=== PATIENT | female | born 1955 | race Caucasian/White ===

== ENCOUNTER 2025-03-30 17:43 | Outpatient (REF) | payer OTHER, SELFPAY ==
--- OUTSIDE RECORDS SUMMARY | 2025-02-25 17:24 | XMS_ITS | Encounter Summary ---
Author Organization [employer] tem Address [id number] [address] [place] [address] Care Team Providers Care Financial Aid Officer Name Role Phone Riya Diego MD Primary Care Provider + [phone] Reason for Referral * Misc (Routine) - Pending Review Specialty Diagnoses / Procedures Referred By Contac t Referred To Contact Procedures Drain care (specify) Neelima Ta APRN-CNP [address] [place] [address] Phone: tel: fax: Referral ID Status Reason Start Date Expiration Date V isits Requested Visits Authorized [id number] Pending Review 03/21/2025 03/21/2026 1 1 * Misc (Routine) - Pending Review Specialty Diagnoses / Procedures Referred By Contac t Referred To Contact Procedures Discharge follow-up Dominga Calderon APRN-CNP [address] [place] [address] Phone: tel: fax: Referral ID Status Reason Start Date Expiration Date V isits Requested Visits Authorized [id number] Pending Review 03/21/2025 03/21/2026 1 1 * Misc (Routine) - Pending Review Specialty Diagnoses / Procedures Referred By Paula t Referred To Contact Diagnoses Colon cancer screening Procedures Follow-up with primary care provider Deena Branch MD [address] [place] [address] Phone: tel: fax: Referral ID Status Reason Start Date Expiration Date V isits Requested Visits Authorized [id number] Pending Review 03/21/2025 03/21/2026 1 1 * Occupational Therapy (Routine) - Pending Review Specialty Diagnoses / Procedures Referred By Paula t Referred To Contact Occupational Therapy Diagnoses Colon cancer screening Deena Branch MD [address] [place] [address] Phone: tel: fax: Referral ID Status Reason Start Date Expiration Date Visits Requested Visits Authorized [id number] Pending Review Specialty Services Required 03/21/2025 09/18/2025 12 12 * Physical Therapy (Routine) - Pending Review Specialty Diagnoses / Procedures Referred By Paula t Referred To Contact Rehabilitation Diagnoses Colon cancer screening Deena Branch MD [address] [place] [address] Phone: tel: fax: Referral ID Status Reason Start Date Expiration Date Visits Requested Visits Authorized [id number] Pending Review Specialty Services Required 03/21/2025 09/18/2025 12 12 * Consultation (Routine) - Pending Review Specialty Diagnoses / Procedures Referred By Paula t Referred To Contact Wound Care Diagnoses Pressure injury of deep tissue of left buttock Pressure ulcer of right buttock, stage 2 (CMS-HCC) Kerri Hawk, STUDENT TRUCK DRIVER-ASSISTANT DIRECTOR OF RESIDENCE LIFE [address] [address] Phone: tel: fax: [facility] [address] [place] [address] Phone: tel: fax: Referral ID Status Reason Start Date Expiration Date Visits Requested Visits Authorized [id number] Pending Review Specialty Services Required 03/20/2025 03/20/2026 1 1 * Misc (Routine) - Pending Review Specialty Diagnoses / Procedures Referred By Contac t Referred To Contact Procedures Wound care (specify) Kerri Hawk APRN-CNP [address] [facility] [address] [place] [address] Phone: tel: fax: Referral ID Status Reason Start Date Expiration Date V isits Requested Visits Authorized [id number] Pending Review 03/20/2025 03/20/2026 1 1 Reason for Visit * Auth/Cert Specialty Diagnoses / Procedures Referred By Contac t Referred To Contact Diagnoses Ovarian Mass DVT [address] [address] Referral ID Status Reason Start Date Expiration Date Visits Re quested Visits Authorized [id number] 1 1 Encounter Details Date Type Department Care Team (Latest Contact Info) Description 02/25/2025 5:24 PM EDT - 03/21/2025 4:23 PM EDT Hospital Encounter [facility] [address] Acute [address] [place] [id number] Deena Branch MD [facility] [place] [address] Dario Burris MD [address] [place] [address] Ghassan Castillo MD [address] [facility] [place] [phone] Colon cancer screening (Primary Dx); Hematochezia; Pressure injury of deep tissue of left buttock; Pressure ulcer of right buttock, stage 2 (CMS-HCC) Discharge Disposition: [facility] Facility-Medicare Cert Social History Tobacco Use Types Packs/Day Years Used Date Smoking Tobacco: Former Cigarettes Smokeless Tobacco: Never Alcohol Use Standard Drinks/Week Comments Never 0 (1 standard drink = 0.6 oz pur e alcohol) [facility] Utilities Answer Date Recorded In the past 12 months has th e electric, gas, oil, or water company threatened to shut off services in your home? No 02/25/2025 AUDIT-C Answer Date Recorded Q1: How often do you have a drink containing alcohol? Never 02/25/2025 Q2: How many drinks containi ng alcohol do you have on a typical day when you are drinking? Patient does not drink Q3: How often do you have si x or more drinks on one occasion? Never 02/25/2025 PHQ-2 Answer Date Recorded Total Score 0 02/25/2025 PRAPARE - Transportation Answer Date Re corded In the past 12 months, has l ack of transportation kept you from medical appointments or from getting medications? No 02/01 In the past 12 months, has l ack of transportation kept you from meetings, work, or from getting things needed for daily living? No 02/25/2025 Housing Instability Answer Date Recorde d Are you worried or concerned that in the next two months you may not have stable housing that you own, rent or stay in as a part of a household? No 02/25/2025 Childcare Answer Date Recorded Childcare Unknown 12/12/2018 Employment Answer Date Recorded Employment Unknown 12/12/2018 Hunger Screening Answer Date Recorded Within the past 12 months we worried whether our food would run out before we got money to buy more. Never True 02/25/2025 Within the past 12 months th e food we bought just didn't last and we didn't have money to get more. Never True 02/25/2025 Purpose - Life Answer Date Recorded Purpose and direction in life Unknown Comments No Sex and Gender Information Value Date Recorded Sex Assigned at Not on file Legal Sex Female 11:49 AM EDT Gender Identity Not on file Sexual Orientation Not on file documented as of this encounter Last Filed Vital Signs Vital Sign Reading Time Taken Comments Blood Pressure 142/61 03/21/2025 7:55 AM EDT Pulse 87 03/21/2025 7:55 AM EDT Temperature 36.7 C (98.1 F) 03/21/2025 7:55 AM EDT Respiratory Rate 16 03/21/2025 7:55 AM EDT Oxygen Saturation 92% 03/20/2025 8:04 PM EDT Inhaled Oxygen Concentration - - Weight 79.2 kg (174 lb 9.7 oz) 03/20/2025 8:52 P M EDT Height 157.5 cm (5' 2.01 ) 02/25/2025 6:40 PM ED T Body Mass Index 31.93 02/25/2025 6:40 PM EDT documented in this encounter Functional Status * Question Answer Date of Assessment Author Functional Status Independent 02/26/2025 8:22 AM EDT Ludivina Mccray RN * Audit-C Score Answer Date of Assessment Author 0 02/25/2025 6:22 PM EDT Leatha Molina, NATA * Question Answer Date of Assessment Author Q1: How often do you have a drink containing alcohol? Never 02/25/2025 6:22 PM EDT Leatha Molina, RN Q2: How many drinks containing alcohol do you have on a typical day when you are drinking? Patient does not drink 02/25/2025 6:22 PM EDT Leatha Molina, RN Q3: How often do you have six or more drinks on one occasion? Never 02/25/2025 6:22 PM EDT Leatha Molina, NATA documented as of this encounter Mental Status * Question Answer Entry Date Author Overall Cognitive Status WFL 03/20/2025 3:03 PM EDT Nava Barrera COTA/Joie documented in this encounter Discharge Summaries * Deena Branch MD - 03/21/2025 4:21 PM EDT Images from the original note were not included. Hospital Discharge Summary Admitting Provider: Deena Branch MD Discharge Provider: Deena Branch. Primary Care Physician at Discharge: Riya Diego MD Admission Date: 02/25/2025 Discharge Date: 03/21/25 Discharge Diagnosis: Malignant small-bowel obstruction status post exploratory laparotomy and total colectomy Status post intraoperative cardiopulmonary arrest Acute hypoxic respiratory failure required intubation Peritoneal carcinomatosis with acute peritonitis Left pneumothorax status post chest tube-resolved Acute postop blood-loss anemia status post blood transfusion Acute renal failure Right hydronephrosis with 2.2 cm right renal mass Asymptomatic VRE UTI Acute provoked right sided PE Acute bilateral DVT Numerous pulmonary nodules likely metastasis Newly diagnosed Ovarian mass History of tobacco abuse Discharge medication : Please review the medication reconciliation Hospital Course Caren Suarez is an 69 y.o. White or female. came to the hospital with Abnormal test results. Patient states that she has been experiencing cold-like symptoms with to thepoint where she was having hard time breathing. She went to her PCP who placed her on steroids withno improvement. She then was on antibiotic therapy with still no improvement. [facility] of abdomen pelvis that reported large partially solid cystic lesions , 2.5 cm solid right renal lesion, and small bilateral noncalcified lower lobe pulmonary nodules and abdominal soft tissue nodules likely metastasis. She also underwent venous duplex of bilateral lower extremities that reported right acute DVT and left deep calf muscle vein DVT. she was Was then sent to the ER at [place] to be further evaluated and treated. She was transferred to [facility] for further evaluation and treatment. Patient was admitted initially to the medical floor and started on heparin drip Gynecology/Oncology was consulted Transvaginal ultrasound: 18.2 x 16.3 x 11.2 cm, multiloculated, cystic and solid lesion in the pelvis Thin prep negative for malignancy, negative high-risk HPV Status post paracentesis and soft tissue nodule biopsy today 02/28/2025 with removal of 1850 mL of ludivina ascites fluid, fluid analysis was consistent with peritonitis. CT scan of the abdomen and pelvis on 03/06/2025 showed Colonic dilatation with transition at the sigmoid junction. Concern for obstruction from the known large rectal mass vs multicentric colorectal carcinoma. Postprocedural ileus or colonic pseudoobstruction could appear similarly in the appropriate clinical setting.Similar appearance of a 20 cm cystic pelvic lesion, recently characterized as rectal adenocarcinoma. Peritoneal carcinomatosis. Indeterminate bilateral lung base pulmonary nodules,presumed metastatic. Few sclerotic pelvic lesions may reflect additional osseous metastases. Mild right hydroureteronephrosis, likely secondary to pelvic mass effect on the ureter.Redemonstrated 2.2 cm right interpolar renal mass lesion concerning for RCC. Colorectal surgery was consulted on 03/07 for possible bowel obstruction ,After stabilization of the patient's INR with [facility] on 03/07, the decision was made to take her to the operating room as a joint case between Colorectal on Electronic [employer] Specialist/Onc. At the beginning of the case, patient initially desaturated prior to incision. It was believed thatthis was due to the significant malignant ascites compressing the lungs. Decision was made to proceed with the case, and after decompression the patient's respiratory status significantly improved. The patient later went into cardiac arrest within the operating room and a code was initiated. Compressions were begun, epi was administered. After 2 rounds of compressions ROSC was obtained. ABThera was placed and the patient was transferred to the surgical ICU intubated and sedated. Patient was extubated on 03/12/2025, she was transferred to the step-down unit and remained on roomair. Her diet was advanced. Patient being monitored off antibiotics per Infectious Disease. Seen by palliative Medicine and her code status was changed to DNR CCA. Patient was also followed by Oncology and abdominal soft tissue biopsy pathology was positive for mucinous adenocarcinoma consistent with colorectal origin. Patient will need to recover from surgery before they can effectively offer any systemic cancer treatments. Patient unable to ambulate using a Shalonda lift but able to stand with assistance. Plans to dischargeto alf facility for ongoing rehab. Patient was accepted with insurance authorization and patient would discharge later today to alf facility in stable condition. Operative Procedures Performed Procedure(s): LAPAROTOMY EXPLORATORY ILEOSTOMY CREATION RESECTION BOWEL SMALL CLOSURE WOUND ABDOMEN APPLICATION WOUND VAC MIDSECTION Consults: pulmonary/intensive care, ID, GI, nephrology, hematology/oncology, general surgery, urology, gynecology, vascular surgery, and gynecology Oncology and palliative Medicine Physical Exam at Discharge BP 142/61 Pulse 87 Temp 36.7 ??C (98.1 ??F) (Oral) Resp 16 Ht 157.5 cm (5' 2.01 ) Wt 79.2kg (174 lb 9.7 oz) SpO2 92% BMI 31.93 kg/m?? General Appearance: Alert, cooperative, no distress. Head: Normocephalic, without obvious abnormality, atraumatic Eyes: PERRL, conjunctiva/corneas clear, EOM's intact Ears: Normal external ear canals, both ears Nose: Nares normal, septum midline, mucosa normal, no drainage or sinus tenderness Throat: Lips, mucosa, and tongue normal; teeth and gums normal Neck: Supple, symmetrical, trachea midline, no adenopathy, thyroid: not enlarged, symmetric, no tenderness/mass/nodules, no carotid bruit or JVD Lungs: Clear to auscultation bilaterally, respirations unlabored, tactile fremitus are normal B/L Chest Wall: No tenderness or deformity Heart: Regular rate and rhythm, S1, S2 normal, no murmur, rub or gallop, PMI is not displaced Abdomen: Soft, non-tender, bowel sounds active all four quadrants, no masses, no organomegaly Extremities: Extremities normal, atraumatic, no cyanosis or edema Pulses: 2+ and symmetric Skin: Skin color, texture, turgor normal, no rashes or lesions Lymph nodes: Cervical, supraclavicular, and axillary nodes normal Neurologic: Nonfocal Lab Results Component Value Date WBC 7.2 03/21/2025 HGB 10.0 (L) 03/21/2025 HCT 31.1 (L) 03/21/2025 MCV 85 03/21/2025 PLT 350 03/21/2025 Lab Results Component Value Date CALCIUM 7.8 (L) 03/20/2025 K 4.1 03/20/2025 CO2 24 03/20/2025 CL 107 03/20/2025 BUN 6 03/20/2025 Lab Results Component Value Date INR 1.3 (H) 03/21/2025 INR 1.5 (H) 03/20/2025 INR 1.3 (H) 03/19/2025 PROTIME 14.7 (H) 03/21/2025 PROTIME 16.8 (H) 03/20/2025 PROTIME 14.3 (H) 03/19/2025 No results found for: MAGNESIUM Discharge Disposition Another Hospital Code Status at Discharge: [email or web address] Outpatient Follow-Up Future Appointments Date Time Provider Department Center 04/03/2025 9:00 AM ELLIOTT Morales [facility] TOTAL TIME SPENT ON DISCHARGE IS 35 MINUTES The note was completed using EMR. Every effort was made to ensure accuracy; however, inadvertent computerized logistics project manager errors may be present. Deena Branch. [facility] Hospitalist documented in this encounter Discharge Instructions * Discharge Instructions* Sheri Callaway RN - 03/14/2025 12:14 PM EDT You may experience sharp pains in your rib area or back, that is common with a PE. This may happen days to weeks after your PE diagnosis because as the clots break down and get smaller they move to the smaller ends of the vessel which is where your nerve endings are. You may also experience small amounts of blood in your sputum when you cough, that is also known to happen with PE. If there is a large amount of blood or severe chest pain you want to call 911 or go to the ER. If your shortness ofbreath worsens you should go back to the ER. For your DVT, leg swelling is common as the flow of blood to get back from your foot to your heart is blocked or partially blocked by the blood clot. Compressions stockings and elevation will help with swelling. Compression stockings should go on in the morning when you first wake up and come off at night when you go to sleep. Elevating your leg when you are not ambulating will help with swellingalso. * Attachments The following attachments cannot be sent through Care Everywhere. * Deep vein thrombosis ??? Discharge instructions ([place]) * Pulmonary embolism ??? Discharge instructions ([place]) * Apixaban, ADULT ([place]) documented in this encounter Medications at Time of Discharge apixaban (ELIQUIS) 5 mg tablet Take 1 tablet (5 mg total) by mouth in the morning and 1 tablet (5 mg total) before bedtime. 03/21/2025 droNABinol (MARINOL) 2.5 mg capsuleIndicatio ns:Colon cancer screening Take 1 capsule (2.5 mg total) by mouth in the morning and 1 capsule (2.5 mg total) in the evening. Take before meals. Do all this for 30 days. 60 capsule 03/21/2025 folic acid (FOLVITE) 1 mg tablet Take 1 tablet (1 mg total) by mouth in the morning. 03/22/2025 naloxone (NARCAN) 4 mg/actuation spray,non-aeroso l nasal spray Administer 1 spray (4 mg total) into alternating nostrils as needed for opioid reversal. 03/21/2025 oxyCODONE (ROXICODONE) 5 mg immediate release tabletIndication s:Colon cancer screening Take 1 tablet (5 mg total) by mouth every 8 (eight) hours as needed for pain for up to 15 doses. Max Daily Amount: 15 mg 15 tablet 03/21/2025 documented as of this encounter Progress Notes * Ernie Elizondo APRN-ASSISTANT DIRECTOR OF RESIDENCE LIFE - 03/21/2025 1:03 PM EDT Images from the original note were not included. [facility] Hematology and Oncology - Daily Progress Note 03/21/2025, 1:03 PM Impression/Plan: Metastatic Colorectal Cancer -Initially favoring ovarian primary given clinical pattern, but now with pathology positive for colorectal primary -Initial CT a/p showed large partially solid and partially cystic lesion in the right adnexa measuring 16 cm x 12 cm x 11 cm + lower anterior abdominal soft tissue nodules + 2.5 cm solid R renal lesion + diffuse intraperitoneal fluid -CTA chest revealed numerous pulmonary nodules -[id number], FW6=191, CEA=24.6, CA 19-9 WNL -TVUS noted an 18.2 cm cystic and solid lesion in the pelvis with ascites and peritoneal nodularity -S/p IR performed paracentesis and biopsy of soft tissue nodules 02/28 -Ascites fluid non-diagnostic -Abdominal soft tissue biopsy pathology positive for mucinous adenocarcinoma consistent with colorectal origin -Will need to recover from surgery before we can safely and effectively offer her systemic cancer treatments. She appears to be recovering surprisingly well at this time. Nearing discharge -Palliative medicine following for assistance with pain and GOC discussions -She will follow up with Dr. Romero after discharge for further management Malignant Bowel Obstruction, Abdominal Pain/Distention -Repeat CT a/p 03/06 shows Colonic dilatation with transition at the sigmoid junction. Concern for obstruction from the known large rectal mass vs multicentric colorectal carcinoma + Similar appearanceof a 20 cm cystic pelvic lesion, recently characterized as rectal adenocarcinoma + Peritoneal carcin omatosis -Now s/p exploratory laparotomy with colectomy, bilateral salpingo-oophorectomy 03/07--> s/p 2nd look exp lap with washout, SBR, end ileostomy, and wound vac 03/09 -Patient coded in surgery, requiring resuscitation, intubation, pressor support--> extubated 03/12 -General surgery following Anemia -Overall stable. Largely multifactorial due to severe B12 deficiency, folate deficiency, Iron deficiency anemia, acute infection, metastatic GI malignancy, renal insufficiency, surgical blood loss -Hgb=10.0(9.8, 10.0, 9.8, 11.1, 9.5, 11.6, 11.0, 10.4, 10.2, 10.2) normocytic -Last transfused 03/08 -S/p IM B12 & IV iron -Continue folic acid -No hemolysis -EGD/colonoscopy were planned, but not completed as patient could not tolerate bowel prep, likely due to bowel obstruction as discussed above -Transfuse for hgb<7 -Follow up with Dr. Romero PE/DVT -Likely provoked by metastatic malignancy -CTA shows Moderate right sided pulmonary emboli without evidence of right heart strain -Dopplers revealing acute R femoropopliteal, deep tibioperoneal, and deep calf muscle DVT + L deep calf muscle DVT -Transitioned to Eliquis 5mg BID -Repeat CTA chest 03/08 showed decreased burden of R pulmonary embolus Renal Mass, Hydroureteronephrosis, TASHA, hyperuricemia -CT imaging shows 2.5 cm R interpolar renal mass concerning for RCC + Mild right hydroureteronephrosis, likely secondary to pelvic mass effect on the ureter -Urology stated renal lesion is simple cyst -Urology, nephrology following Supratherapeutic INR -In setting of advanced metastatic disease, Eliquis therapy, acute infection -INR corrected s/p preoperative Vit K +/- FFP reversal UTI -On IV antibiotics -As per other services Respiratory Failure, Shock, S/p Cardiac Arrest -Extubated 03/12, out of ICU 03/17 -Now on room air without issue Continue management of other medical problems as per appropriate services. No objection to discharge from our standpoint when cleared by others. We will follow peripherally. Patient discussed with Dr. Romero. Please call with questions. Interval History: Patient seen and examined at bedside. She is awaiting planned discharge this afternoon. She is on room air without issue. Denies any new or worsening symptoms. VSS, afebrile. No overt bleeding. Physical Examination : Temp: [36.7 ??C (98.1 ??F)-37.1 ??C (98.7 ??F)] 36.7 ??C (98.1 ??F) Pulse: [87-97] 87 Resp: [16] 16 BP: (142-145)/(61-67) 142/61 SpO2: [92 %] 92 % O2 Device: None (Room air) O2 Flow Rate (L/min): [0 L/min] 0 L/min Temperature Range: Temp: 36.7 ??C (98.1 ??F) Temp Av.9 ??C (98.4 ??F) Min: 36.7 ??C (98.1 ??F)Max: 37.1 ??C (98.7 ??F) Weight change: 5.7 kg (12 lb 9.1 oz) Physical Exam Vitals and nursing note reviewed. Constitutional: General: She is not in acute distress. Appearance: She is normal weight. She is not ill appearing HENT: Head: Normocephalic and atraumatic. Right Ear: External ear normal. Left Ear: External ear normal. Nose: Nose normal. Mouth/Throat: normal Eyes: General: PER Cardiovascular: Rate and Rhythm: normal rate and regular rhythm. Pulmonary: Effort: Pulmonary effort is normal. No respiratory distress Findings: room air Abdominal: General: There is no distension. +ileostomy, + wound vac Tenderness: There is no tenderness or guarding Musculoskeletal: Right lower leg: +2 edema Left lower leg: +2 edema Skin: General: Skin is warm and dry. Coloration: Skin is not jaundiced. Findings: Abdominal incision, wound vac Neurological: General: A&O x3, no focal deficits Psychiatric: Mood and Affect: calm, cooperative, appropriate mood/affect Laboratory data: Results from last 7 days Lab Units 03/21/25 0507 03/20/25 0534 03/18/25 0401 WBC x10E9/L 7.2 8.0 8.4 HEMOGLOBIN g/dL 10.0* 9.8* 10.0* HEMATOCRIT % 31.1* 30.6* 30.9* PLATELETS X10E9/L 350 333 221 MCV fL 85 84 83 NEUTROS ABS 10*3/uL 5.5 6.5 -- Results from last 7 days Lab Units 03/21/25 0507 03/20/25 0704 03/19/25 0448 PROTIME sec 14.7* 16.8* 14.3* INR 1.3* 1.5* 1.3* Results from last 7 days Lab Units 03/21/25 1111 03/21/25 0507 03/21/25 0444 03/21/25 0103 03/20/25 0819 03/20/25 0705 03/20/25 0704 03/19/25 0827 03/19/25 0448 03/18/25 1059 03/18/25 1013 03/18/25 0606 03/18/25 0401 03/17/25 2050 03/17/25 1556 03/17/25 0538 03/17/25 0327 03/15/25 1356 03/15/25 0910 SODIUM mmol/L -- -- -- -- -- 139 -- -- -- -- 137 -- 138 < > 139 -- 137 < > 144 POTASSIUM mmol/L -- -- -- -- -- 4.1 -- -- -- -- 4.0 -- 4.2 < > 4.3 -- 4.3 < > 3.9 CHLORIDE mmol/L -- -- -- -- -- 107 -- -- -- -- 106 -- 105 < > 106 -- 106 < > 111* CO2 mmol/L -- -- -- -- -- 24 -- -- -- -- 23 -- 24 < > 26 -- 25 < > 27 BUN mg/dL -- -- -- -- -- 6 -- -- -- -- 6 -- 7 < > 7 -- 9 < > 13 CREATININE mg/dL -- -- -- -- -- 0.41 -- -- -- -- 0.45 -- 0.45 < > 0.43 -- 0.37* < > 0.43 CALCIUM mg/dL -- -- -- -- -- 7.8* -- -- -- -- 8.0* -- 7.9* < > 8.3* -- 8.3* < > 7.2* ALK PHOS U/L -- -- -- -- -- -- -- -- -- -- -- -- -- -- -- -- -- -- 235* ALT U/L -- -- -- -- -- -- -- -- -- -- -- -- -- -- -- -- -- -- 16 AST U/L -- -- -- -- -- -- -- -- -- -- -- -- -- -- -- -- -- -- 22 BEDSIDE GLUCOSE mg/dL 96 -- 97 90 < > -- -- < > -- < > -- < > -- < > -- < > -- < > -- GLUCOSE mg/dL -- -- -- -- -- 76 -- -- -- -- 81 -- 66 < > 81 -- 63* < > 142* INR -- 1.3* -- -- -- -- 1.5* -- 1.3* -- -- -- 1.2 -- -- -- 1.1 < > -- MAGNESIUM mg/dL -- -- -- -- -- -- -- -- -- -- -- -- 2.0 -- 2.1 -- 1.9 < > -- < > = values in this interval not displayed. VITAMIN B12: Lab Results Component Value Date [id number] 110 (L) 02/26/2025 FOLATE: Lab Results Component Value Date FOLATE 3.3 (L) 02/26/2025 IRON: Lab Results Component Value Date IRON 12 (L) 02/26/2025 TIBC 321 02/26/2025 FERRITIN 78 02/26/2025 Medications: acetaminophen, 650 mg, oral, Q6H apixaban, 5 mg, oral, BID diphenoxylate-atropine, 2 tablet, oral, 4x Daily droNABinol, 2.5 mg, oral, BID AC folic acid, 1 mg, nasogastric, Daily insulin lispro, 2-10 Units, subcutaneous, With meals and nightly lidocaine, 1 patch, transdermal, Daily pantoprazole, 40 mg, oral, QAM AC OR pantoprazole, 40 mg, intravenous, QAM AC ELLIOTT Christina 03/21/25 1305 Cosigned by Geremias Romero MD at 03/21/2025 3:16 PM EDT * Brenda Hayes MD - 03/21/2025 11:15 AM EDT Images from the original note were not included. [facility] Artur Small, [facility] Nephrology Progress Note Patient Name: Caren Suarez : 1955 Date of Service: 03/21/25 PCP: Riya Diego MD Attending Physician: Dario Burris MD Admission Date: 02/25/2025 Length of stay: LOS: 24 days Chief complaint. No chief complaint on file. Reason for Consult: Acute kidney injury Assessment and Plan. 69-year-old female with a past medical history significant for newly diagnosed metastatic colorectal cancer, deep vein thrombosis (DVT)/pulmonary embolism (PE), hypertension, and former tobacco use presented to the emergency department on 02/25/2025 for evaluation of abnormal testing after experiencing shortness of breath and cold-like symptoms for about one month. She reports having a hard time breathing and a cough that went away ( she has had a hard time breathing and had a cough but it wentaway ). She had been treated by her PCP with steroids and antibiotics without improvement. An outpatient CT abdomen/pelvis on 02/24/2025 revealed a large right adnexal mass, a solid right renal lesion, and likely metastases to the lungs and abdomen. Venous duplex showed bilateral DVTs. She was transferred from [place] to [facility] for further evaluation and management. In the emergency department, she was started on a heparin drip. Workup upon admission included a CTA chest on 02/25/2025,which confirmed moderate right-sided pulmonary emboli without right heart strain. Abdominal soft tissue biopsy pathology was positive for mucinous adenocarcinoma consistent with colorectal origin. She underwent an exploratory laparotomy with colectomy and bilateral salpingo-oophorectomy on 03/07/2025, followed by a second look exploratory laparotomy with washout, small bowel resection, end ileostomy, and wound vac placement on 03/09/2025. Her course was complicated by intraoperative cardiac arrest, respiratory failure requiring intubation (extubated 03/12/2025), and shock. She is currently being treated for a urinary tract infection and bacterial peritonitis. Nephrology consultation was requested for acute kidney injury. Assessment Acute Kidney Injury, likely multifactorial with hemodynamic and prerenal components, with concern for acute tubular necrosis (ATN). The TASHA is in the setting of sepsis, treatment for bacterial peritonitis, and obstructive uropathy. There was contrast exposure on 02/24/2025. Creatinine has improved. Baseline Cr not established. Mild hypernatremia on initial evaluation, now resolved. Hypophosphatemia, now resolved. Metabolic acidosis on initial evaluation, now resolved. Volume Status: Euvolemic, lower extremity edema stable Hypertension: Stable, though has been on the higher side. Hemodynamics: History of normal LVEF of 60-65% with Grade I diastolic dysfunction per echo on 02/26/2025. Metastatic Colorectal Cancer: Newly diagnosed. Malignant Bowel Obstruction: Status post exploratory laparotomy, total colectomy, and ileostomy creation 03/07/2025, ileostomy created on in 03/09/2025 Peritoneal Carcinomatosis Acute Pulmonary Embolism and Bilateral DVT: On apixaban. Sepsis: Secondary to bacterial peritonitis and UTI. Right Renal Mass: 2.5 cm right renal mass lesion, noted to be a simple cyst by Urology. Right hydronephrosis noted on imaging, likely secondary to pelvic mass effect. Urology evaluated on 03/15/2025 and recommended no acute intervention and outpatient follow-up. Cardiac Arrest: Intraoperatively on 03/07/2025. Ventilator Dependent Respiratory Failure: Postoperatively, now extubated. Plan Renal functions remain stable. Continue Lasix p.r.n. for volume management. The right renal mass was evaluated by urology on 03/15/2025; they recommended no acute interventionand outpatient follow-up. We will continue to follow. Strict ins and outs, accurate documentation of urine output, daily weights, and bladder scan Q12h. Avoid nephrotoxins, avoid contrast exposure unless absolutely necessary, and avoid hemodynamic instability. Dose all medications to GFR. Monitor Renal Chem panel daily in AM. Thank you for this consultation, we will follow along with you regarding care of this patient whilethe patient is here in the hospital, please call if you have any questions or concerns. BRENDA HAYES MD on 03/21/2025 at 11:16 AM [facility] [email or web address] - is now [employer] Schedule : See Epic on-call schedule for [facility] ( [facility] ) Nephrology Working Hours : Epic chat during working hours, if no response please use on- call physician reach out as below After Hours : Answering service contact : [phone] Subjective : Patient seen at bedside, No acute distress , No worsening of Sx / No worsening of SOB / CP reported, No new complaints Plan discussed Objective VITALS BP 142/61 Pulse 87 Temp 36.7 ??C (98.1 ??F) (Oral) Resp 16 Ht 157.5 cm (5' 2.01 ) Wt 79.2kg (174 lb 9.7 oz) SpO2 92% BMI 31.93 kg/m?? BMI: Body mass index is 31.93 kg/m??. Weight change: 5.7 kg (12 lb 9.1 oz) Wt Readings from Last 3 Encounters: 03/20/25 79.2 kg (174 lb 9.7 oz) 02/24/25 74.4 kg (164 lb) I/O (24 Hours) Intake/Output Summary (Last 24 hours) at 03/21/2025 1116 Last data filed at 03/21/2025 0917 Gross per 24 hour Intake 560 ml Output 2950 ml Net -2390 ml General: Awake, alert, not in distress. Appears to be stated age. HEENT: Atraumatic, normocephalic. Anicteric sclera. [place] and moist oral mucosa. Neck supple. No JVD. Chest: Bilateral air entry, clear to auscultation, no wheezing, rhonchi or rales. Cardiovascular: RRR, S1S2, no murmur, rub or gallop. No lower extremity edema. Abdomen: Soft, non tender to palpation. Ileostomy in place Musculoskeletal: Lower extremity edema stable Integumentary: [place], warm and dry. Free from rash or lesions. CARBIDE GRINDER: Oriented to person, place and time. Speech clear. Face symmetrical. No tremor. Medications Scheduled Meds: acetaminophen, 650 mg, oral, Q6H apixaban, 5 mg, oral, BID diphenoxylate-atropine, 2 tablet, oral, 4x Daily droNABinol, 2.5 mg, oral, BID AC folic acid, 1 mg, nasogastric, Daily insulin lispro, 2-10 Units, subcutaneous, With meals and nightly lidocaine, 1 patch, transdermal, Daily pantoprazole, 40 mg, oral, QAM AC OR pantoprazole, 40 mg, intravenous, QAM AC Continuous Infusions: dextrose 5 % in water, 100 mL/hr sodium chloride 0.9 %, 20 mL/hr, Last Rate: 50 mL/hr (03/11/25 0523) sodium chloride 0.9 %, 3 mL/hr, Last Rate: 3 mL/hr (03/16/25 1841) PRN Meds: calcium gluconate OR calcium gluconate OR calcium gluconate dextrose dextrose 5 % in water dextrose 50 % in water (D50W) glucagon (human recombinant) hydrALAZINE magnesium sulfate OR magnesium sulfate methocarbamoL ondansetron OR ondansetron ODT oxyCODONE OR oxyCODONE potassium chloride OR potassium chloride potassium chloride in water OR potassium chloride in water sodium phosphate IV OR sodium phosphate IV - central line OR sod phos di, mono-K phos mono sodium chloride sodium chloride sodium chloride 0.9 % Results Review: Renal Chemistry Results from last 7 days Lab Units 03/21/25 0507 03/20/25 0705 03/20/25 0534 03/19/25 0448 03/18/25 1013 03/18/25 0401 03/17/25 2050 03/17/25 1556 03/17/25 03203/16/25 0904 03/16/25 0858 03/16/25 0304 SODIUM mmol/L -- 139 -- -- 137 138 136 139 137 < > -- 141 POTASSIUM mmol/L -- 4.1 -- -- 4.0 4.2 4.0 4.3 4.3 < > -- 3.8 CHLORIDE mmol/L -- 107 -- -- 106 105 104 106 106 < > -- 107 CO2 mmol/L -- 24 -- -- 23 24 24 26 25 < > -- 26 BUN mg/dL -- 6 -- -- 6 7 7 7 9 < > -- 13 CREATININE mg/dL -- 0.41 -- -- 0.45 0.45 0.48 0.43 0.37* < > -- 0.37* CALCIUM mg/dL -- 7.8* -- -- 8.0* 7.9* 8.0* 8.3* 8.3* < > -- 7.5* MAGNESIUM mg/dL -- -- -- -- -- 2.0 -- 2.1 1.9 -- 2.2 1.8 PHOSPHORUS mg/dL 3.4 3.3 3.1 2.9 -- 3.0 -- -- 2.8 -- 3.4 2.5 < > = values in this interval not displayed. Results from last 7 days Lab Units 03/21/25 0507 03/20/25 0534 03/18/25 04003/17/25 03203/16/25 0904 WBC x10E9/L 7.2 8.0 8.4 9.0 10.7 HEMOGLOBIN g/dL 10.0* 9.8* 10.0* 9.8* 11.1* HEMATOCRIT % 31.1* 30.6* 30.9* 30.5* 34.7* PLATELETS X10E9/L 350 333 221 192 209 Results from last 7 days Lab Units 03/21/25 1111 03/21/25 0444 03/21/25 0103 03/20/2503/20/25 1642 BEDSIDE GLUCOSE mg/dL 96 97 90 95 96 BNP: Lab Results Component Value Date BNP 22 03/08/2025 BNP 34 03/06/2025 BNP 61 02/24/2025 Urine Studies: Lab Results Component Value Date COLOR Yellow 03/06/2025 TURBIDITY Hazy (A) 03/06/2025 SPECIFICGRA 1.023 03/06/2025 NITRITE Negative 03/06/2025 PHURINE 6.0 03/06/2025 LEUKOCYTE Small (A) 03/06/2025 PROTEIN 50 mg/dL (A) 03/06/2025 KETONES 20 mg/dL (A) 03/06/2025 UROBILINOGEN <1.1 eu/dL 03/06/2025 BLOODHGB Large (A) 03/06/2025 Lab Results Component Value Date UPROCRTRAT 0.25 (H) 03/06/2025 Urine Sodium: No components found for: CRYSTAL Urine Potassium: No results found for: KUR Urine Chloride: No results found for: CLUR Urine Osmolarity: No components found for: OSMOU Urine Creatinine: No results found for: LABCREA Urine Eosinophils: No components found for: UEOS Urine Protein: No components found for: TPU Immunology Profile No results found for: PROTELECTR , SEDRATE , CRP , RF , ANASCREEN , ANTIDSDNA , C3 , C4 , ANCA , MYELOP , PROTEINASE3 , ANTIGLOMERU No results found for: HAV , HEPAIGM , HEPBIGM , HEPBCAB , HBEAG , HEPCAB SP: No results found for: SP C3:No results found for: C3 C4:No results found for: C4 MPO ANCA: No results found for: MPO PR3 ANCA: No components found for: PR3 hepatitis serologies ANTIGBM:No components found for: GBMABIGG HEPATITIS B SURFACE AG: No results found for: HEPBSAG HEPATITIS C AB: No results found for: HEPCAB Electrophoresis: SPEP:No results found for: PROT , LABALPH , LABBETA , PATH UPEP:No results found for: LABPE Anemia Profile Lab Results Component Value Date WBC 7.2 03/21/2025 WBC 8.0 03/20/2025 HGB 10.0 (L) 03/21/2025 HGB 9.8 (L) 03/20/2025 HCT 31.1 (L) 03/21/2025 HCT 30.6 (L) 03/20/2025 PLT 350 03/21/2025 PLT 333 03/20/2025 Lab Results Component Value Date IRONSAT 4 (L) 02/26/2025 FERRITIN 78 02/26/2025 [id number] 110 (L) 02/26/2025 FOLATE 3.3 (L) 02/26/2025 Bone Mineral Profile No results found for: PTH Echocardiogram: Echo limited W/ contrast Result Date: 03/08/2025 Left Ventricle: Systolic function is normal with an ejection fraction of 55-60%. Tricuspid Valve: There is trace to mild regurgitation. There is no evidence of tricuspid valve stenosis. Echo complete W/O contrast Result Date: 02/26/2025 Left Ventricle: Left ventricle is small. Systolic function is normal with an ejection fraction of 60-65%. No segmental wall motion abnormalities. Grade I diastolic dysfunction (impaired relaxation) is present. Lateral E' is 11.70 cm/s. Medial E' is 7.94 cm/s. Right Ventricle: Right ventricular sizeappears normal. The right ventricular basal diameter is 22.0 mm. Systolic function is normal. Aortic Valve: There is trace to mild regurgitation. There is no evidence of aortic valve stenosis. Thank you for the consultation. Please do not hesitate to contact us for any further questions/concerns. We will continue to follow along with you. * Fernanda Soliman MD - 03/21/2025 11:08 AM EDT Images from the original note were not included. Pulmonary Critical Care Progress Note Patient seen for the follow up of acute hypoxic respiratory failure requiring intubation mechanicalventilation, status post intraoperative cardiac arrest, acute right-sided pulmonary emboli, acute DVT, right lower lobe infiltrate, pulmonary nodules, metastatic colorectal cancer, acute kidney injury, hydronephrosis, previous smoker Subjective: Patient was last seen by our service on 03/07/2025 prior to undergoing exploratory lap, total colectomy and bilateral salpingo-oophorectomy. Patient experienced cardiac arrest intraoperatively, achieved ROSC after 2 rounds of compressions. On 03/09/2025 she returned to the OR for an ileostomy creation, fascia closing and wound VAC placement. Patient had a left chest tube while in the ICU for leftpneumothorax, this has since resolved and chest tube was removed on 03/12/2025. She remained intubated and mechanically ventilated in the ICU until 03/12/2025. She was transferred out of the ICU 03/17/2025. Currently she is resting comfortably in bed. No acute overnight events noted. She is tolerating oral intake but has a poor appetite. She denies any chest pain, cough or shortness of breath. Examination: Vitals: BP 142/61 Pulse 87 Temp 36.7 ??C (98.1 ??F) (Oral) Resp 16 Ht 157.5 cm (5' 2.01 ) Wt 79.2 kg (174 lb 9.7 oz) SpO2 92% BMI 31.93 kg/m?? General appearance: In no acute distress, alert and cooperative with exam, EOM I Neck: No JVD Lungs: moderate air exchange, no wheezing or crackles Heart: regular rate and rhythm, S1, S2 normal, no gallop Abdomen: Soft, non tender, + BS, ileostomy, midline woundvac Extremities: no cyanosis or clubbing. no skin rash or petechiae, positive edema LABs: Results from last 7 days Lab Units 03/21/25 0507 03/20/25 0534 03/18/25 0401 WBC x10E9/L 7.2 8.0 8.4 HEMOGLOBIN g/dL 10.0* 9.8* 10.0* HEMATOCRIT % 31.1* 30.6* 30.9* PLATELETS X10E9/L 350 333 221 Results from last 7 days Lab Units 03/20/25 0705 03/18/25 1013 03/18/25 0401 SODIUM mmol/L 139 137 138 POTASSIUM mmol/L 4.1 4.0 4.2 CHLORIDE mmol/L 107 106 105 CO2 mmol/L 24 23 24 BUN mg/dL 6 6 7 CREATININE mg/dL 0.41 0.45 0.45 CALCIUM mg/dL 7.8* 8.0* 7.9* Radiology: X-ray chest 03/19/2025 X-ray chest 03/13/2025 Impression & Recommendations: Acute hypoxic respiratory failure requiring intubation mechanical ventilation/Status post intraoperative cardiac arrest 03/07/25 Extubated 03/12/2025 Incentive spirometer q.1 hour while awake Continue supplemental oxygen as needed to maintain oxygen saturation greater than 92%, currently onroom air Acute right-sided pulmonary emboli/acute DVT right femoropopliteal, tibioperoneal, deep calf, left deep calf muscle Off Heparin drip, on Eliquis Echocardiogram with EF of 60-65%, normal right ventricular systolic function Right lower lobe infiltrate/Multiple pulmonary nodules, suspected metastasis Oncology following Infectious disease following, completed Rocephin and Flagyl Metastatic colorectal cancer/ Ovarian mass/renal mass/Malignant bowel obstruction status post totalcolectomy, end ileostomy creation and bilateral salpingo-oophorectomy/peritoneal carcinomatosis Gynecologic/oncology consulted/Medical oncology consulted, input noted Unable to complete EGD/colonoscopy secondary to patient intolerance to prep Infectious Disease managing antibiotics, Rocephin and Flagyl courses complete S/p paracentesis and soft tissue nodule biopsy 02/28/2025 with removal of 1850 mL of ludivina ascites fluid Peritoneal fluid culture is negative 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 Concern for obstruction from the known large rectal mass vs multicentric colorectal carcinoma + Similar appearanceof a 20 cm cystic pelvic lesion, recently characterized as rectal adenocarcinoma + Peritoneal carcin omatosis Monitor ileostomy function Diet per surgery Acute kidney injury/hydroureter nephrosis Nephrology following Urology following IV fluids per Nephrology Previous smoker, quit 12 years ago, 42 pack year history/Probable COPD Outpatient PFTs DVT prophylaxis with Eliquis PUD prophylaxis with PPI retirement facility discharge planning, no objection to discharge from pulmonary standpoint Fernanda Soliman MD, [facility] Pulmonary Critical Care and Sleep Medicine, [facility] Office: [phone] The note was completed using EMR. Every effort was made to ensure accuracy; however, inadvertent computerized logistics project manager errors may be present. * Ernie Elizondo APRN-ASSISTANT DIRECTOR OF [employer] - 03/20/2025 2:33 PM EDT Images from the original note were not included. [facility] Hematology and Oncology - Daily Progress Note 03/20/2025, 2:33 PM Impression/Plan: Metastatic Colorectal Cancer -Initially favoring ovarian primary given clinical pattern, but now with pathology positive for colorectal primary -Initial CT a/p showed large partially solid and partially cystic lesion in the right adnexa measuring 16 cm x 12 cm x 11 cm + lower anterior abdominal soft tissue nodules + 2.5 cm solid R renal lesion + diffuse intraperitoneal fluid -CTA chest revealed numerous pulmonary nodules -[id number], SO6=442, CEA=24.6, CA 19-9 WNL -TVUS noted an 18.2 cm cystic and solid lesion in the pelvis with ascites and peritoneal nodularity -S/p IR performed paracentesis and biopsy of soft tissue nodules 02/28 -Ascites fluid non-diagnostic -Abdominal soft tissue biopsy pathology positive for mucinous adenocarcinoma consistent with colorectal origin -Will need to recover from surgery before we can safely and effectively offer her systemic cancer treatments. She appears to be recovering surprisingly well at this time. Nearing discharge -Palliative medicine following for assistance with pain and GOC discussions -She will follow up with Dr. Romero after discharge for further management Malignant Bowel Obstruction, Abdominal Pain/Distention -Repeat CT a/p 03/06 shows Colonic dilatation with transition at the sigmoid junction. Concern for obstruction from the known large rectal mass vs multicentric colorectal carcinoma + Similar appearanceof a 20 cm cystic pelvic lesion, recently characterized as rectal adenocarcinoma + Peritoneal carcin omatosis -Now s/p exploratory laparotomy with colectomy, bilateral salpingo-oophorectomy 03/07--> s/p 2nd look exp lap with washout, SBR, end ileostomy, and wound vac 03/09 -Patient coded in surgery, requiring resuscitation, intubation, pressor support--> extubated 03/12 -General surgery following Anemia -Overall stable. Largely multifactorial due to severe B12 deficiency, folate deficiency, Iron deficiency anemia, acute infection, metastatic GI malignancy, renal insufficiency, surgical blood loss -Hgb=9.8(10.0, 9.8, 11.1, 9.5, 11.6, 11.0, 10.4, 10.2, 10.2) normocytic -Last transfused 03/08 -S/p IM B12 & IV iron -Continue folic acid -No hemolysis -EGD/colonoscopy were planned, but not completed as patient could not tolerate bowel prep, likely due to bowel obstruction as discussed above -Transfuse for hgb<7 -Follow up with Dr. Romero PE/DVT -Likely provoked by metastatic malignancy -CTA shows Moderate right sided pulmonary emboli without evidence of right heart strain -Dopplers revealing acute R femoropopliteal, deep tibioperoneal, and deep calf muscle DVT + L deep calf muscle DVT -On heparin gtt, likely transition to DOAC prior to discharge. Vascular surgery recommending 5mg BID initial dosing -Repeat CTA chest 03/08 showed decreased burden of R pulmonary embolus Renal Mass, Hydroureteronephrosis, TASHA, hyperuricemia -CT imaging shows 2.5 cm R interpolar renal mass concerning for RCC + Mild right hydroureteronephrosis, likely secondary to pelvic mass effect on the ureter -Urology stated renal lesion is simple cyst -Urology, nephrology following Supratherapeutic INR -In setting of advanced metastatic disease, Eliquis therapy, acute infection -INR corrected s/p preoperative Vit K +/- FFP reversal UTI -On IV antibiotics -As per other services Respiratory Failure, Shock, S/p Cardiac Arrest -Extubated 03/12, out of ICU 03/17 -Now on room air without issue Continue management of other medical problems as per appropriate services. No objection to discharge from our standpoint when cleared by others. Patient discussed with Dr. Romero. Please call with questions. Interval History: Patient seen and examined at bedside. She is doing excellent, all things considered. She is on roomair without issue. Off all pressure support. Pain well controlled. Awaiting discharge arrangements soon hopefully. VSS, afebrile. No overt bleeding. Physical Examination : Temp: [36.6 ??C (97.8 ??F)-36.8 ??C (98.3 ??F)] 36.8 ??C (98.3 ??F) Pulse: [87-90] 87 Resp: [16-18] 16 BP: (122-133)/(58-71) 133/71 SpO2: [94 %-95 %] 95 % O2 Device: None (Room air) Temperature Range: Temp: 36.8 ??C (98.3 ??F) Temp Av.7 ??C (98.1 ??F) Min: 36.6 ??C (97.8 ??F)Max: 36.8 ??C (98.3 ??F) Weight change: -6.3 kg (-13 lb 14.2 oz) Physical Exam Vitals and nursing note reviewed. Constitutional: General: She is not in acute distress. Appearance: She is normal weight. She is not ill appearing HENT: Head: Normocephalic and atraumatic. Right Ear: External ear normal. Left Ear: External ear normal. Nose: Nose normal. Mouth/Throat: normal Eyes: General: PER Cardiovascular: Rate and Rhythm: normal rate and regular rhythm. Pulmonary: Effort: Pulmonary effort is normal. No respiratory distress Findings: room air Abdominal: General: There is no distension. +ileostomy, + wound vac Tenderness: There is no tenderness or guarding Musculoskeletal: Right lower leg: +2 edema Left lower leg: +2 edema Skin: General: Skin is warm and dry. Coloration: Skin is not jaundiced. Findings: Abdominal incision, wound vac Neurological: General: A&O x3, no focal deficits Psychiatric: Mood and Affect: calm, cooperative, appropriate mood/affect Laboratory data: Results from last 7 days Lab Units 03/20/25 0534 03/18/25 0401 03/17/25 0327 WBC x10E9/L 8.0 8.4 9.0 HEMOGLOBIN g/dL 9.8* 10.0* 9.8* HEMATOCRIT % 30.6* 30.9* 30.5* PLATELETS X10E9/L 333 221 192 MCV fL 84 83 83 NEUTROS ABS 10*3/uL 6.5 -- -- Results from last 7 days Lab Units 03/20/25 0704 03/19/25 0448 03/18/25 0401 PROTIME sec 16.8* 14.3* 13.7* INR 1.5* 1.3* 1.2 Results from last 7 days Lab Units 03/20/25 1129 03/20/25 0819 03/20/25 0705 03/20/25 0704 03/19/25 0827 03/19/25 0448 03/18/25 1059 03/18/25 1013 03/18/25 0606 03/18/25 0401 03/17/25 2050 03/17/25 1556 03/17/25 0538 03/17/25 0327 03/15/25 1356 03/15/25 0910 SODIUM mmol/L -- -- 139 -- -- -- -- 137 -- 138 < > 139 -- 137 < > 144 POTASSIUM mmol/L -- -- 4.1 -- -- -- -- 4.0 -- 4.2 < > 4.3 -- 4.3 < > 3.9 CHLORIDE mmol/L -- -- 107 -- -- -- -- 106 -- 105 < > 106 -- 106 < > 111* CO2 mmol/L -- -- 24 -- -- -- -- 23 -- 24 < > 26 -- 25 < > 27 BUN mg/dL -- -- 6 -- -- -- -- 6 -- 7 < > 7 -- 9 < > 13 CREATININE mg/dL -- -- 0.41 -- -- -- -- 0.45 -- 0.45 < > 0.43 -- 0.37* < > 0.43 CALCIUM mg/dL -- -- 7.8* -- -- -- -- 8.0* -- 7.9* < > 8.3* -- 8.3* < > 7.2* ALK PHOS U/L -- -- -- -- -- -- -- -- -- -- -- -- -- -- -- 235* ALT U/L -- -- -- -- -- -- -- -- -- -- -- -- -- -- -- 16 AST U/L -- -- -- -- -- -- -- -- -- -- -- -- -- -- -- 22 BEDSIDE GLUCOSE mg/dL 75 83 -- -- < > -- < > -- < > -- < > -- < > -- < > -- GLUCOSE mg/dL -- -- 76 -- -- -- -- 81 -- 66 < > 81 -- 63* < > 142* INR -- -- -- 1.5* -- 1.3* -- -- -- 1.2 -- -- -- 1.1 < > -- MAGNESIUM mg/dL -- -- -- -- -- -- -- -- -- 2.0 -- 2.1 -- 1.9 < > -- < > = values in this interval not displayed. VITAMIN B12: Lab Results Component Value Date [id number] 110 (L) 02/26/2025 FOLATE: Lab Results Component Value Date FOLATE 3.3 (L) 02/26/2025 IRON: Lab Results Component Value Date IRON 12 (L) 02/26/2025 TIBC 321 02/26/2025 FERRITIN 78 02/26/2025 Medications: acetaminophen, 650 mg, oral, Q6H apixaban, 5 mg, oral, BID diphenoxylate-atropine, 2 tablet, oral, 4x Daily droNABinol, 2.5 mg, oral, BID AC folic acid, 1 mg, nasogastric, Daily furosemide, 40 mg, intravenous, Once insulin lispro, 2-10 Units, subcutaneous, With meals and nightly lidocaine, 1 patch, transdermal, Daily pantoprazole, 40 mg, oral, QAM AC OR pantoprazole, 40 mg, intravenous, QAM AC ELLIOTT Christina 03/20/25 1436 Cosigned by Geremias Romero MD at 03/20/2025 4:02 PM EDT * Sheri Parry RD - 03/20/2025 1:19 PM EDT NUTRITION ADULT FOLLOW UP NUTRITION ASSESSMENT: Patient History: Brief Clinical Summary: Patient presented with abnormal CT AP and cold-like symptoms/difficulty breathing. Admitted for treatment. PMHx includes DVT. Biochemical Data, Medical Tests, and Procedures: 02/24 CT AP: ovarian lesion, renal lesion, pulmonary lesions - likely mets 8/29 IR paracentesis (-1850mL removed) 02/28 US pelvis: 18.2 cm cystic and solid lesion in the pelvis with ascites and peritoneal nodularity 02/28- IR paracentesis for ascites fluid, 1800 mL fluid removed. 03/06 CTA- Colonic dilatation with transition at the sigmoid junction. Concern for obstruction from the known large rectal mass vs multicentric colorectal carcinoma. 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 03/07 OR: ex lap, total colectomy, salpingo-oophorectomy. Intubated. 03/09 XRA: enteric tube extends to the left mid abdomen 03/09 OR: ex lap, ileostomy creation, small bowel resection, wound closure abdomen, wound vac application 03/12 extubated Labs: Results from last 3 days Lab Units 03/20/25 0705 03/18/25 1013 03/18/25 0401 SODIUM mmol/L 139 137 138 POTASSIUM mmol/L 4.1 4.0 4.2 CHLORIDE mmol/L 107 106 105 CO2 mmol/L 24 23 24 BUN mg/dL 6 6 7 CREATININE mg/dL 0.41 0.45 0.45 CALCIUM mg/dL 7.8* 8.0* 7.9* ALBUMIN g/dL 2.3* -- -- Results from last 7 days Lab Units 03/20/25 1129 03/20/25 0819 03/20/25 0705 03/20/25 0431 03/20/25 0113 03/19/25201403/19/25 1755 BEDSIDE GLUCOSE mg/dL 75 83 -- 86 78 93 86 GLUCOSE mg/dL -- -- 76 -- -- -- -- Results from last 3 days Lab Units 03/20/25 0534 03/18/25 0401 WBC x10E9/L 8.0 8.4 HEMOGLOBIN g/dL 9.8* 10.0* HEMATOCRIT % 30.6* 30.9* PLATELETS X10E9/L 333 221 MCV fL 84 83 Results from last 3 days Lab Units 03/18/25 1559 03/18/25 0401 03/17/25 1556 MAGNESIUM mg/dL -- 2.0 2.1 IONIZED MAGNESIUM mmol/L 0.52 -- -- Results from last 3 days Lab Units 03/20/25 0705 03/20/25 0534 03/19/25 0448 03/18/25 0401 PHOSPHORUS mg/dL 3.3 3.1 2.9 3.0 CALCIUM, IONIZED mg/dL -- 4.2* 4.5 4.5 No data from last 3 days. No results found for: HGBA1C Lab Results Component Value Date IRON 12 (L) 02/26/2025 TIBC 321 02/26/2025 FERRITIN 78 02/26/2025 Lab Results Component Value Date IRONSAT 4 (L) 02/26/2025 No results found for: CHOL No results found for: CHDL No results found for: HDL No results found for: LDLCALC No results found for: TRIG No results found for: VERYLOWLIP Lab Results Component Value Date [id number] 110 (L) 02/26/2025 Lab Results Component Value Date FOLATE 3.3 (L) 02/26/2025 Lab Results Component Value Date VITD25 <7.0 (L) 03/15/2025 Comments (labs): Low Ionized Ca. Medications/ Parenteral: Folic acid, protonix, Lomotil, Marinol (started 03/17) Current Facility-Administered Medications Medication Dose Route Frequency Provider Last Rate Last Admin acetaminophen (TYLENOL) tablet 650 mg 650 mg oral Q6H Venita Chan MD 650 mg at 03/20/25 0120 apixaban (ELIQUIS) tablet 5 mg 5 mg oral BID Deena Branch MD 5 mg at 03/20/25 0822 calcium gluconate IVPB 1000 mg/50 mL (20 mg/mL premix) 1,000 mg intravenous PRN Дмитрий Lara MD Stopped at 03/16/25 2252 Or calcium gluconate IVPB 2000 mg/100 mL (20 mg/mL premix) 2,000 mg intravenous PRN Дмитрий Lara MD Or calcium gluconate 3,000 mg in sodium chloride 0.9 % 100 mL IVPB 3,000 mg intravenous PRN Дмитрий Lara MD dextrose (GLUTOSE) 40 % gel 15 g 15 g oral PRN OK Albright dextrose 5 % (D5W) infusion 100 mL/hr intravenous Continuous PRN OK Albright dextrose 50 % in water (D50W) 50% solution 25 mL 25 mL intravenous PRN OK Albright diphenoxylate-atropine (LOMOTIL) 2.5-0.025 mg per tablet 2 tablet 2 tablet oral 4x Daily Dec Yuminaga, DO 2 tablet at 03/20/25 08 droNABinol (MARINOL) capsule 2.5 mg 2.5 mg oral BID AC Ashok Yuminaga, DO 2.5 mg at 03/20/25 08 folic acid (FOLVITE) tablet 1 mg 1 mg nasogastric Daily OK Dang 1 mg at 822 furosemide (LASIX) injection 40 mg 40 mg intravenous Once Brenda Hayes MD glucagon HCL injection 1 mg 1 mg intramuscular PRN OK Albright hydrALAZINE (APRESOLINE) injection 10 mg 10 mg intravenous Q6H PRN Eleni Harding APRN-ASSISTANT DIRECTOR OF RESIDENCE LIFE 10 mg at 03/15/25 1211 insulin lispro (HumaLOG) injection 2-10 Units 2-10 Units subcutaneous With meals and nightly Deena Branch MD lidocaine (SALONPAS) 4 % 1 patch 1 patch transdermal Daily Venita Chan MD 1 patch at 03/20/25 0822 magnesium sulfate IVPB 2000 mg/50 mL in iso-osmotic water (40 mg/mL premix) 2,000 mg intravenous PRN Дмитрий Lara MD Stopped at 03/17/25 0704 Or magnesium sulfate IVPB 4000 mg/100 mL in iso-osmotic water (40 mg/mL premix) 4,000 mg intravenous PRN Дмитрий Lara MD methocarbamoL (ROBAXIN) tablet 500 mg 500 mg oral Q6H PRN Venita Chan MD ondansetron (PF) (ZOFRAN) injection 4 mg 4 mg intravenous PRN Venita Chan MD Or ondansetron ODT (ZOFRAN ODT) disintegrating tablet 8 mg 8 mg oral PRN Venita Chan MD oxyCODONE (ROXICODONE) immediate release tablet 2.5 mg 2.5 mg oral Q4H PRN Venita Chan MD 2.5 mg at 03/17/25 0937 Or oxyCODONE (ROXICODONE) immediate release tablet 5 mg 5 mg oral Q4H PRN Venita Chan MD pantoprazole (PROTONIX) EC tablet 40 mg 40 mg oral QAM AC Venita Chan MD 40 mg at 03/20/25 0822 Or pantoprazole (PROTONIX) injection 40 mg 40 mg intravenous QAM AC Venita Chan MD 40 mg at 03/19/25 0626 potassium chloride (K-TAB,KLOR-CON) CR tablet 20-50 mEq 20-50 mEq oral PRN Дмитрий Lara MD 30 mEq at 03/15/25 1531 Or potassium chloride (KAYCIEL) 20 mEq/15 mL solution 20-50 mEq 20-50 mEq oral PRN Дмитрий Lara MD 30mEq at 03/16/25 0411 potassium chloride IVPB 10 mEq/50 mL in water (0.2 mEq/mL premix) 10 mEq intravenous PRN Дмитрий Lara MD Stopped at 03/12/25 1226 Or potassium chloride IVPB 10 mEq/100 mL in water (0.1 mEq/mL premix) 10 mEq intravenous PRN Дмитрий Lara MD sodium phosphate 20 mmol in sodium chloride 0.9 % 250 mL IVPB 20 mmol intravenous PRN Дмитрий Lara MD Stopped at 03/16/25 0750 Or sodium phosphate 20 mmol in sodium chloride 0.9 % 100 mL IVPB 20 mmol intravenous PRN Дмитрий Lara MD Stopped at 03/15/25 0921 Or sod phos di, mono-K phos mono (K-PHOS NEUTRAL) 250 mg tablet 2 tablet 2 tablet oral PRN Дмитрий Lara MD 2 tablet at 03/15/25 1529 sodium chloride 0.9 % flush 10 mL 10 mL intravenous PRN Deena Branch MD 10 mL at 02/25/25 1857 sodium chloride 0.9 % flush 10 mL 10 mL intravenous PRN Ghassan Castillo MD 10 mL at 03/08/25 0804 sodium chloride 0.9 % infusion 20 mL/hr intravenous Continuous PRN Neelima Ta APRN-ASSISTANT DIRECTOR OF [employer]IDENCE LIFE 50 mL/hr at 03/11/25 0523 50 mL/hr at 03/11/25 0523 sodium chloride 0.9 % infusion 3 mL/hr intra-arterial Continuous Fernanda Soliman MD 3 mL/hr at 03/16/25 1841 3 mL/hr at 03/16/25 1841 Nutrition Focused Physical Findings +ileostomy, wound vac. Last BM 03/04. +2 edema noted. +nausea Skin (per nursing flow sheets): Skin Color: Pale; [place] (03/20/25828) Skin Temp: Warm (03/20/25828) Wound (per nursing flow sheets): Wound 03/07/25 Incision Abdomen N/A-Site Assessment: Clean; Bleeding; [place]; Red (03/20/25 0945) Wound 03/19/25 Buttocks Right-Site Assessment: Fragile; Red; [place] (03/19/25 1940) Wound 03/07/25 Incision Abdomen N/G-Qta-wjfdko Wound Description: Full thickness (03/20/25944) Gastrointestinal (per nursing flow sheets): Abdomen Assessment: Stoma; Soft; Nondistended (03/20/25828) Last BM Date: 03/04/25 (03/20/25828) Passing Flatus: No (03/20/25828) RUQ Bowel Sounds: Hypoactive (03/20/25828) LUQ Bowel Sounds: Hypoactive (03/20/25828) RLQ Bowel Sounds: Hypoactive (03/20/25828) LLQ Bowel Sounds: Hypoactive (03/20/25828) GI Symptoms: Nausea (03/20/25828) Nausea Precipitating Factors: Movement (03/16/25 0400) Relieved by: Antiemetic (03/15/25 0608) Edema (per nursing flow sheets): RUE Edema: +2 (03/20/25828) LUE Edema: +2 (03/20/25828) RLE Edema: +2 (03/20/25828) LLE Edema: +2 (03/20/25828) Intake/ Output Last 24 hrs: Intake/Output Summary (Last 24 hours) at 03/20/2025 1320 Last data filed at 03/20/2025 0900 Gross per 24 hour Intake -- Output 2700 ml Net -2700 ml Food/Nutrition Related History: Diet/ Nutrition Order Review: Dietary Orders (From admission, onward) Start Ordered 03/17/25 1722 Adult nutrition supplements Continuous Question Answer Comment Diet Type or Consistency: Regular Texture Select Supplement: Standard House Supplement 8 oz Supplement Frequency: BID 03/17/25 1721 03/17/25 1156 Adult diet Regular Texture; Low Fiber (gastric soft) Diet effective now Question Answer Comment Diet Type: Regular Texture Other Modifiers: Low Fiber (gastric soft) 03/17/25 1155 03/17/25 1156 Adult nutrition supplements Continuous Question Answer Comment Diet Type or Consistency: Regular Texture Select Supplement: Thick Frozen Dessert Supplement Frequency: BID 03/17/25 1156 Diet Intakes: Percent Meals Eaten (%): 25 (03/19/25 1300) Bites to 33% per nursing flowsheets. Per patient poor appetite continues, accepting bites at meals BID. Oral Supplemental Intake/ Acceptance: Magic cup ordered BID, Ensure Plus HP ordered BID. Like magice cups, accepting 1.5 per day. Dislikes ensure plus HP. Inpatient Nutrition Support History: 03/11 RD spoke extensively with London Merino MD with [facility] regarding TPN initiation. reported there may be contraindications to initiating TPN with stage [address] stated in the scenario, due to patient being NPO x 8 days, the benefits outweigh the risks. Dr. Merino stated he is aware and will monitor and evaluate the need . 03/11 trickle tube feeds started 03/12 per MD tf stopped due to extubation 03/14 TF's stopped Nutrition Knowledge/Beliefs/Attitudes: Declined nutrition information on low fiber. Anthropometrics: Last 3 Weight Readings 03/19/25 0100 03/19/25 2132 03/20/25 0500 Weight: 79.8 kg (175 lb 14.8 oz) 73.5 kg (162 lb 0.6 oz) 72.1 kg (158 lb 15.2 oz) Current Weight: 72.1 kg (Bed scale, 03/20) Admit Weight: 74.8 kg (Standing Scale, 02/26) [place] Body Weight: 50 kg Weight Changes: Variable weight this admission, (varying scales used); fluid likely masking any weight loss. Current Body Mass Index: Body mass index is 29.07 kg/m??. Comparative Standards: Estimated Energy Needs: 1500-1750kcals daily. Method and weight used: 25-32 kcal/kg IBW Estimated Protein Needs: 75-125grams daily. Method and weight used: 1.5-2.5g protein/kg IBW Estimated Fluid Needs: 1500-1750ml daily. Method weight used: 1 ml/kcal Comments: updated to wound healing needs 03/13 Malnutrition Status: Malnutrition Present: At risk NUTRITION DIAGNOSIS: Intake Diagnosis: Inadequate oral intake (NI 2.1) Ongoing NUTRITION INTERVENTIONS: Meals and snacks: Encourage adequate oral intake daily Supplements: Continue Magic Cup BID. Discontinue Ensure Plus. GOAL(S): Meet estimated calorie and protein needs. NUTRITION MONITORING AND EVALUATION: PO intake, supplement intake, weights, labs, POC Sheri Parry RD, LD Clinical Dietitian Direct Line: * Deena Branch MD - 03/20/2025 12:13 PM EDT Images from the original note were not included. Daily Progress Note CC : Abdominal pain Assessment Malignant small-bowel obstruction status post exploratory laparotomy and total colectomy Status post intraoperative cardiopulmonary arrest Acute hypoxic respiratory failure required intubation Peritoneal carcinomatosis with acute peritonitis Left pneumothorax status post chest tube-resolved Acute postop blood-loss anemia status post blood transfusion Acute renal failure Right hydronephrosis with 2.2 cm right renal mass Asymptomatic VRE UTI Acute provoked right sided PE Acute bilateral DVT Numerous pulmonary nodules likely metastasis Newly diagnosed Ovarian mass History of tobacco abuse Plan: Patient was transferred to the step-down unit Currently respiratory status is stable on room air, diet was advanced Still unable to ambulate, using Shalonda lift but able to stand with the assistant softball coach Continue Marinol 2.5 mg b.i.d. Currently being monitored off antibiotics as per ID Changed to Eliquis 5 mg po BID Changed and sliding scale insulin a.c. HS PT and OT and social service coordinator for discharge planning No need for further DVT prophylaxis. Discharge planning in progress plan is to discharge to alf facility once arrangements have been made Seen by palliative Medicine code status changed to DNR CCA Subjective PT Denied any nausea vomiting , no diarrhea , no constipation , no chest pain , no palpitation , noheadache, other systems were reviewed and were negative. HPI: Caren Suarez is an 69 y.o. White or female. came to the hospital with Abnormal test results. Patient states that she has been experiencing cold-like symptoms with to thepoint where she was having hard time breathing. She went to her PCP who placed her on steroids withno improvement. She then was on antibiotic therapy with still no improvement. [facility] pelvis that reported large partially solid cystic lesions , 2.5 cm solid right renal lesion, and small bilateral noncalcified lower lobe pulmonary nodules and abdominal soft tissue nodules likely metastasis. She also underwent venous duplex of bilateral lower extremities that reported right acute DVT and left deep calf muscle vein DVT. she was Was then sent to the ER at [place] to be further evaluated and treated. She was transferred to [facility] for further evaluation and treatment. Patient was admitted initially to the medical floor and started on heparin drip Gynecology/Oncology was consulted Transvaginal ultrasound: 18.2 x 16.3 x 11.2 cm, multiloculated, cystic and solid lesion in the pelvis Thin prep negative for malignancy, negative high-risk HPV Status post paracentesis and soft tissue nodule biopsy today 02/28/2025 with removal of 1850 mL of ludivina ascites fluid, fluid analysis was consistent with peritonitis. CT scan of the abdomen and pelvis on 03/06/2025 showed Colonic dilatation with transition at the sigmoid junction. Concern for obstruction from the known large rectal mass vs multicentric colorectal carcinoma. Postprocedural ileus or colonic pseudoobstruction could appear similarly in the appropriate clinical setting.Similar appearance of a 20 cm cystic pelvic lesion, recently characterized as rectal adenocarcinoma. Peritoneal carcinomatosis. Indeterminate bilateral lung base pulmonary nodules,presumed metastatic. Few sclerotic pelvic lesions may reflect additional osseous metastases. Mild right hydroureteronephrosis, likely secondary to pelvic mass effect on the ureter.Redemonstrated 2.2 cm right interpolar renal mass lesion concerning for RCC. Colorectal surgery was consulted on 03/07 for possible bowel obstruction ,After stabilization of the patient's INR with [facility] on 03/07, the decision was made to take her to the operating room as a joint case between Colorectal on Electronic Publishing Specialist/Onc. At the beginning of the case, patient initially desaturated prior to incision. It was believed thatthis was due to the significant malignant ascites compressing the lungs. Decision was made to proceed with the case, and after decompression the patient's respiratory status significantly improved. The patient later went into cardiac arrest within the operating room and a code was initiated. Compressions were begun, epi was administered. After 2 rounds of compressions ROSC was obtained. ABThera was placed and the patient was transferred to the surgical ICU intubated and sedated. Patient was extubated on 03/12/2025, she was transferred to the step-down unit back in the hospitalas care. Social History Tobacco Use Smoking Status Former Types: Cigarettes Smokeless Tobacco Never Social History Substance and Sexual Activity Alcohol Use Never Physical examination : BP 133/71 Pulse 87 Temp 36.8 ??C (98.3 ??F) (Oral) Resp 16 Ht 157.5 cm (5' 2.01 ) Wt 72.1kg (158 lb 15.2 oz) SpO2 95% BMI 29.07 kg/m?? General Appearance: Alert, cooperative, no distress. Head: Normocephalic, without obvious abnormality, atraumatic Eyes: PERRL, conjunctiva/corneas clear, EOM's intact Ears: Normal external ear canals, both ears Nose: Nares normal, septum midline, mucosa normal, no drainage or sinus tenderness Throat: Lips, mucosa, and tongue normal; teeth and gums normal Neck: Supple, symmetrical, trachea midline, no adenopathy, thyroid: not enlarged, symmetric, no tenderness/mass/nodules, no carotid bruit or JVD Lungs: Clear to auscultation bilaterally, respirations unlabored, tactile fremitus are normal B/L Chest Wall: No tenderness or deformity Heart: Regular rate and rhythm, S1, S2 normal, no murmur, rub or gallop, PMI is not displaced Abdomen: Soft, non-tender, bowel sounds active all four quadrants, no masses, no organomegaly Extremities: Extremities normal, atraumatic, no cyanosis or edema Pulses: 2+ and symmetric Skin: Skin color, texture, turgor normal, no rashes or lesions Lymph nodes: Cervical, supraclavicular, and axillary nodes normal Neurologic: Nonfocal Labs : Results from last 7 days Lab Units 03/20/25 0534 03/18/25 0401 03/17/25 0327 WBC x10E9/L 8.0 8.4 9.0 HEMOGLOBIN g/dL 9.8* 10.0* 9.8* HEMATOCRIT % 30.6* 30.9* 30.5* PLATELETS X10E9/L 333 221 192 Results from last 7 days Lab Units 03/20/25 0705 03/18/25 1013 03/18/25 0401 POTASSIUM mmol/L 4.1 4.0 4.2 CHLORIDE mmol/L 107 106 105 CO2 mmol/L 24 23 24 BUN mg/dL 6 6 7 CREATININE mg/dL 0.41 0.45 0.45 CALCIUM mg/dL 7.8* 8.0* 7.9* Results from last 7 days Lab Units 03/18/25 0401 03/17/25 1556 03/17/25 0327 MAGNESIUM mg/dL 2.0 2.1 1.9 Results from last 7 days Lab Units 03/20/25 0704 03/19/25 0448 03/18/25 0401 INR 1.5* 1.3* 1.2 The note was completed using EMR. Every effort was made to ensure accuracy; however, inadvertent computerized logistics project manager errors may be present. Deena Branch MD * Fernanda Soliman MD - 03/20/2025 10:15 AM EDT Images from the original note were not included. Pulmonary Critical Care Progress Note Patient seen for the follow up of acute hypoxic respiratory failure requiring intubation mechanicalventilation, status post intraoperative cardiac arrest, acute right-sided pulmonary emboli, acute DVT, right lower lobe infiltrate, pulmonary nodules, metastatic colorectal cancer, acute kidney injury, hydronephrosis, previous smoker Subjective: Patient was last seen by our service on 03/07/2025 prior to undergoing exploratory lap, total colectomy and bilateral salpingo-oophorectomy. Patient experienced cardiac arrest intraoperatively, achieved ROSC after 2 rounds of compressions. On 03/09/2025 she returned to the OR for an ileostomy creation, fascia closing and wound VAC placement. Patient had a left chest tube while in the ICU for leftpneumothorax, this has since resolved and chest tube was removed on 03/12/2025. She remained intubated and mechanically ventilated in the ICU until 03/12/2025. She was transferred out of the ICU 03/17/2025. Currently she is resting comfortably in bed with wound care team at the bedside. No acute overnightevents noted. She is tolerating oral intake but has a poor appetite. She denies any chest pain, cough or shortness of breath. Examination: Vitals: BP 133/71 Pulse 87 Temp 36.8 ??C (98.3 ??F) (Oral) Resp 16 Ht 157.5 cm (5' 2.01 ) Wt 72.1 kg (158 lb 15.2 oz) SpO2 95% BMI 29.07 kg/m?? General appearance: In no acute distress, alert and cooperative with exam, EOM I Neck: No JVD Lungs: moderate air exchange, no wheezing or crackles Heart: regular rate and rhythm, S1, S2 normal, no gallop Abdomen: Soft, non tender, + BS, ileostomy, midline woundvac Extremities: no cyanosis or clubbing. no skin rash or petechiae, positive edema LABs: Results from last 7 days Lab Units 03/20/25 0534 03/18/25 0401 03/17/25 0327 WBC x10E9/L 8.0 8.4 9.0 HEMOGLOBIN g/dL 9.8* 10.0* 9.8* HEMATOCRIT % 30.6* 30.9* 30.5* PLATELETS X10E9/L 333 221 192 Results from last 7 days Lab Units 03/20/25 0705 03/18/25 1013 03/18/25 0401 SODIUM mmol/L 139 137 138 POTASSIUM mmol/L 4.1 4.0 4.2 CHLORIDE mmol/L 107 106 105 CO2 mmol/L 24 23 24 BUN mg/dL 6 6 7 CREATININE mg/dL 0.41 0.45 0.45 CALCIUM mg/dL 7.8* 8.0* 7.9* Radiology: X-ray chest 03/19/2025 X-ray chest 03/13/2025 Impression & Recommendations: Acute hypoxic respiratory failure requiring intubation mechanical ventilation/Status post intraoperative cardiac arrest 03/07/25 Extubated 03/12/2025 Incentive spirometer q.1 hour while awake Continue supplemental oxygen as needed to maintain oxygen saturation greater than 92%, currently onroom air Acute right-sided pulmonary emboli/acute DVT right femoropopliteal, tibioperoneal, deep calf, left deep calf muscle Off Heparin drip, on Eliquis Echocardiogram with EF of 60-65%, normal right ventricular systolic function Right lower lobe infiltrate/Multiple pulmonary nodules, suspected metastasis Oncology following Infectious disease following, completed Rocephin and Flagyl Metastatic colorectal cancer/ Ovarian mass/renal mass/Malignant bowel obstruction status post totalcolectomy, end ileostomy creation and bilateral salpingo-oophorectomy/peritoneal carcinomatosis Gynecologic/oncology consulted/Medical oncology consulted, input noted Unable to complete EGD/colonoscopy secondary to patient intolerance to prep Infectious Disease managing antibiotics, Rocephin and Flagyl courses complete S/p paracentesis and soft tissue nodule biopsy 02/28/2025 with removal of 1850 mL of ludivina ascites fluid Peritoneal fluid culture is negative 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 Concern for obstruction from the known large rectal mass vs multicentric colorectal carcinoma + Similar appearanceof a 20 cm cystic pelvic lesion, recently characterized as rectal adenocarcinoma + Peritoneal carcin omatosis Monitor ileostomy function Diet per surgery Acute kidney injury/hydroureter nephrosis Nephrology following Urology following IV fluids per Nephrology Previous smoker, quit 12 years ago, 42 pack year history/Probable COPD Outpatient PFTs DVT prophylaxis with Eliquis PUD prophylaxis with PPI retirement facility discharge planning Fernanda Soliman MD, [facility] Pulmonary Critical Care and Sleep Medicine, [facility] Office: [phone] The note was completed using EMR. Every effort was made to ensure accuracy; however, inadvertent computerized logistics project manager errors may be present. * Brenda Hayes MD - 03/20/2025 10:03 AM EDT Images from the original note were not included. [facility] Artur Small CNP Nephrology Consultation Note Patient Name: Caren Suarez : 1955 Date of Service: 03/20/25 PCP: Riya Diego MD Attending Physician: Dario Burris MD Admission Date: 02/25/2025 Length of stay: LOS: 23 days Chief complaint. Hypernatremia and TASHA Reason for Consult: Acute Kidney Injury Assessment and Plan. 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 She reports having a hard time breathing and a cough that went away ( she has had a hard time breathing and had a cough but it went away ). She had been treated by her PCP with steroids and antibiotics without improvement. An outpatient CT abdomen/pelvis on 02/24/2025 revealed a large right adnexal mass, a solid right renal lesion, and likely metastases to the lungs and abdomen. Venous duplex showed bilateral DVTs. She was transferred from [facility] for further evaluation and management. In the emergency department, she was started on a heparin drip. Workup upon admission included a CTA chest on 02/25/2025, which confirmed moderate right-sided pulmonary emboli without right heart strain. She is currently being treated for a urinary tract infection and bacterial peritonitis with IV Rocephin and Flagyl, with Infectious Disease on board. Nephrology consultation was requested for acute kidney injury. Assessment Acute Kidney Injury, likely multifactorial with hemodynamic and prerenal components, with concern for acute tubular necrosis (ATN). The TASHA is in the setting of sepsis, treatment for bacterial peritonitis, and obs uropathy , There was contrast exposure on 02/24/2025. Cr has improved. Right hydronephrosis, 2.2 cm right renal mass lesion Urology evaluated the patient Mild hypernatremia on initial evaluation. Hypophosphatemia. Metabolic acidosis on initial evaluation. Volume Status: Euvolemic , possibly on low side Hypertension: Stable, though has been on the higher side. Hemodynamics: Echocardiogram on 02/26/2025 showed a normal LVEF of 60-65% with Grade I diastolic dysfunction and no evidence of right heart strain. Anemia Most recent hemoglobin is 10.8 g/dL. Sepsis secondary to bacterial peritonitis and UTI. 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 ? Rectal ca Acute pulmonary embolism and bilateral DVT. Malignant Bowel obstruction , patient is status post exploratory laparotomy, total colectomy, left in discontinuity, and BSO on 03/07/2025 , repeat Second Look laparotomy and ileostomy creation on 03/09/2025 Peritoneal carcinomatosis Right renal mass Cardiac arrest intraoperatively, 03/07/2025 needing ACLS. Ventilator dependent respiratory failure postoperatively Plan Continue Lasix p.r.n. for volume management Strict ins and outs / accurate documentation of urine out put / daily weights and Bladder scan Q12 Avoid nephrotoxins, avoid contrast exposure unless absolutely necessary, avoid hemodynamic instability Dose all medications to GFR Monitor Renal Chem panel daily in AM Thank you for this consultation, we will follow along with you regarding care of this patient whilethe patient is here in the hospital, please call if you have any questions or concerns. BRENDA HAYES MD on 03/20/2025 at 10:03 AM [facility] [email or web address] is now [employer] Schedule : See Epic on-call schedule for [facility] ( [facility] ) Nephrology Working Hours : Epic chat during working hours, if no response please use on- call physician reach out as below After Hours : Answering service contact : [phone] Office Phone number: [phone] Subjective Seen at bedside, no acute distress no chest pain or worsening of shortness of breath reported, no new complaint. Plan discussed in detail at bedside all questions answered in detail appropriate counseling done. I/O (24 Hours) Intake/Output Summary (Last 24 hours) at 03/20/2025 1003 Last data filed at 03/20/2025 0900 Gross per 24 hour Intake 120 ml Output 2700 ml Net -2580 ml Past Medical History: Diagnosis Date Deep vein thrombosis (CMS-HCC) Past Surgical History: Procedure Laterality Date APPLICATION WOUND VAC MIDSECTION N/A 03/09/2025 Performed by Ghassan Castillo MD at [facility] CLOSURE WOUND ABDOMEN N/A 03/09/2025 Performed by Ghassan Castillo MD at [facility] ILEOSTOMY CREATION N/A 03/09/2025 Performed by Ghassan Castillo MD at [facility] LAPAROTOMY EXPLORATORY N/A 03/09/2025 Performed by Ghassan Castillo MD at [facility] LAPAROTOMY EXPLORATORY N/A 03/07/2025 Performed by Ghassan Castillo MD at [facility] RESECTION BOWEL SMALL N/A 03/09/2025 Performed by Ghassan Castillo MD at [facility] SALPINGO-OOPHORECTOMY Bilateral 03/07/2025 Performed by Faith Celis MD at [facility] TOTAL COLECTOMY N/A 03/07/2025 Performed by Ghassan Castillo MD at [facility] Family History Problem Relation Age of Onset Breast cancer Neg Hx Social History Socioeconomic History Marital status: Single Spouse name: Not on file Number of children: Not on file Years of education: Not on file Highest education level: Not on file Occupational History Not on file Tobacco Use Smoking status: Former Types: Cigarettes Smokeless tobacco: Never Substance and Sexual Activity Alcohol use: Never Drug use: Never Sexual activity: Not on file Other Topics Concern Not on file Social History Narrative Not on file Social Drivers of Health Financial Resource Strain: Not on file Food Insecurity: No Food Insecurity (02/25/2025) Hunger Screening Food Insecurity - Worry: Never True Food Insecurity - Inability: Never True Transportation Needs: No Transportation Needs (02/25/2025) PRAPARE - Transportation Lack of Transportation (Medical): No Lack of Transportation (Non-Medical): No Physical Activity: Not on file Stress: Not on file Social Connections: Not on file Interpersonal Safety: Not At Risk (02/25/2025) Humiliation, Afraid, Rape, and Kick questionnaire Fear of Current or Ex-Partner: No Emotionally Abused: No Physically Abused: No Sexually Abused: No Housing Instability: Low Risk (02/25/2025) Housing Instability Housing Instability: No Prior to Admission medications Medication Sig Start Date End Date Taking? Authorizing Provider apixaban (ELIQUIS) 5 mg tablet Take 2 tablets (10 mg total) by mouth 2 (two) times a day for 7 days, THEN 1 tablet (5 mg total) 2 (two) times a day for 30 days. 03/05/25 04/11/25 Eleni Harding APRN-DUYEN Allergies Allergen Reactions Penicillin Physical Exam: VITALS BP 133/71 Pulse 87 Temp 36.8 ??C (98.3 ??F) (Oral) Resp 16 Ht 157.5 cm (5' 2.01 ) Wt 72.1kg (158 lb 15.2 oz) SpO2 95% BMI 29.07 kg/m?? Wt Readings from Last 3 Encounters: 03/20/25 72.1 kg (158 lb 15.2 oz) 02/24/25 74.4 kg (164 lb) BMI: Body mass index is 29.07 kg/m??. I/O (24 Hours) Intake/Output Summary (Last 24 hours) at 03/20/2025 1003 Last data filed at 03/20/2025 0900 Gross per 24 hour Intake 120 ml Output 2700 ml Net -2580 ml General: Awake, alert, no acute distress HEENT: Atraumatic, normocephalic. Anicteric sclera. [place] and moist oral mucosa. Neck No JVD. Chest: Bilateral air entry, clear to auscultation, no wheezing, rhonchi or rales. Cardiovascular: RRR, S1S2, no murmur, rub or gallop. No lower extremity edema. Abdomen: Soft, status post surgery, ileostomy in place Extremities: Edema stable +2 Integumentary: [place], warm and dry. Free from rash or lesions. CARBIDE GRINDER: Examination grossly nonfocal Medications Scheduled Meds: acetaminophen, 650 mg, oral, Q6H apixaban, 5 mg, oral, BID diphenoxylate-atropine, 2 tablet, oral, 4x Daily droNABinol, 2.5 mg, oral, BID AC folic acid, 1 mg, nasogastric, Daily insulin lispro, 2-10 Units, subcutaneous, With meals and nightly lidocaine, 1 patch, transdermal, Daily pantoprazole, 40 mg, oral, QAM AC OR pantoprazole, 40 mg, intravenous, QAM AC Continuous Infusions: dextrose 5 % in water, 100 mL/hr sodium chloride 0.9 %, 20 mL/hr, Last Rate: 50 mL/hr (03/11/25 0523) sodium chloride 0.9 %, 3 mL/hr, Last Rate: 3 mL/hr (03/16/25 1841) PRN Meds: calcium gluconate OR calcium gluconate OR calcium gluconate dextrose dextrose 5 % in water dextrose 50 % in water (D50W) glucagon (human recombinant) hydrALAZINE magnesium sulfate OR magnesium sulfate methocarbamoL ondansetron OR ondansetron ODT oxyCODONE OR oxyCODONE potassium chloride OR potassium chloride potassium chloride in water OR potassium chloride in water sodium phosphate IV OR sodium phosphate IV - central line OR sod phos di, mono-K phos mono sodium chloride sodium chloride sodium chloride 0.9 % Results Review Renal Chemistry Results from last 7 days Lab Units 03/20/25 0534 03/19/25 0448 03/18/25 1013 03/18/25 0401 03/17/25 2050 03/17/25 1556 03/17/25 0327 03/16/25 0904 03/16/25 0858 03/16/25 0304 SODIUM mmol/L -- -- 137 138 136 139 137 < > -- 141 POTASSIUM mmol/L -- -- 4.0 4.2 4.0 4.3 4.3 < > -- 3.8 CHLORIDE mmol/L -- -- 106 105 104 106 106 < > -- 107 CO2 mmol/L -- -- 23 24 24 26 25 < > -- 26 BUN mg/dL -- -- 6 7 7 7 9 < > -- 13 CREATININE mg/dL -- -- 0.45 0.45 0.48 0.43 0.37* < > -- 0.37* CALCIUM mg/dL -- -- 8.0* 7.9* 8.0* 8.3* 8.3* < > -- 7.5* MAGNESIUM mg/dL -- -- -- 2.0 -- 2.1 1.9 -- 2.2 1.8 PHOSPHORUS mg/dL 3.1 2.9 -- 3.0 -- -- 2.8 -- 3.4 2.5 < > = values in this interval not displayed. Hepatic: Lab Results Component Value Date AST 22 03/15/2025 AST 33 03/09/2025 AST 108 (H) 03/08/2025 ALT 16 03/15/2025 ALT 23 03/09/2025 ALT 33 (H) 03/08/2025 ALKPHOS 235 (H) 03/15/2025 ALKPHOS 38 (L) 03/09/2025 ALKPHOS 37 (L) 03/08/2025 BNP Lab Results Component Value Date BNP 22 03/08/2025 BNP 34 03/06/2025 BNP 61 02/24/2025 CBC Results from last 7 days Lab Units 03/20/25 0534 03/18/25 0401 03/17/25 0327 03/16/25 0904 03/16/25 0304 WBC x10E9/L 8.0 8.4 9.0 10.7 9.1 HEMOGLOBIN g/dL 9.8* 10.0* 9.8* 11.1* 9.5* HEMATOCRIT % 30.6* 30.9* 30.5* 34.7* 29.8* PLATELETS X10E9/L 333 221 192 209 169 Results from last 7 days Lab Units 03/20/25 0819 03/20/25 0431 03/20/25 0113 03/19/25201403/19/25 1755 BEDSIDE GLUCOSE mg/dL 83 86 78 93 86 Urine Studies: Lab Results Component Value Date COLOR Yellow 03/06/2025 TURBIDITY Hazy (A) 03/06/2025 SPECIFICGRA 1.023 03/06/2025 NITRITE Negative 03/06/2025 PHURINE 6.0 03/06/2025 LEUKOCYTE Small (A) 03/06/2025 PROTEIN 50 mg/dL (A) 03/06/2025 KETONES 20 mg/dL (A) 03/06/2025 UROBILINOGEN <1.1 eu/dL 03/06/2025 BLOODHGB Large (A) 03/06/2025 Lab Results Component Value Date UPROCRTRAT 0.25 (H) 03/06/2025 Urine Sodium: No components found for: CRYSTAL Urine Potassium: No results found for: KUR Urine Chloride: No results found for: CLUR Urine Osmolarity: No components found for: OSMOU Urine Creatinine: No results found for: LABCREA Urine Eosinophils: No components found for: UEOS Urine Protein: No components found for: TPU Immunology Profile No results found for: PROTELECTR , SEDRATE , CRP , RF , ANASCREEN , ANTIDSDNA , C3 , C4 , ANCA , MYELOP , PROTEINASE3 , ANTIGLOMERU No results found for: HAV , HEPAIGM , HEPBIGM , HEPBCAB , HBEAG , HEPCAB SP: No results found for: SP C3:No results found for: C3 C4:No results found for: C4 MPO ANCA: No results found for: MPO PR3 ANCA: No components found for: PR3 hepatitis serologies ANTIGBM:No components found for: GBMABIGG HEPATITIS B SURFACE AG: No results found for: HEPBSAG HEPATITIS C AB: No results found for: HEPCAB Electrophoresis: SPEP:No results found for: PROT , LABALPH , LABBETA , PATH UPEP:No results found for: LABPE Anemia Profile Lab Results Component Value Date WBC 8.0 03/20/2025 WBC 8.4 03/18/2025 HGB 9.8 (L) 03/20/2025 HGB 10.0 (L) 03/18/2025 HCT 30.6 (L) 03/20/2025 HCT 30.9 (L) 03/18/2025 PLT 333 03/20/2025 PLT 221 03/18/2025 Lab Results Component Value Date IRON 12 (L) 02/26/2025 TIBC 321 02/26/2025 FERRITIN 78 02/26/2025 Bone Mineral Profile Lab Results Component Value Date CALCIUM 8.0 (L) 03/18/2025 Results from last 7 days Lab Units 03/18/25 0401 03/17/25 1556 03/17/25 0327 MAGNESIUM mg/dL 2.0 2.1 1.9 Echocardiogram: Echo complete W/O contrast Result Date: 02/26/2025 Left Ventricle: Left ventricle is small. Systolic function is normal with an ejection fraction of 60-65%. No segmental wall motion abnormalities. Grade I diastolic dysfunction (impaired relaxation) is present. Lateral E' is 11.70 cm/s. Medial E' is 7.94 cm/s. Right Ventricle: Right ventricular sizeappears normal. The right ventricular basal diameter is 22.0 mm. Systolic function is normal. Aortic Valve: There is trace to mild regurgitation. There is no evidence of aortic valve stenosis. Thank you for the consultation. Please do not hesitate to contact us for any further questions/concerns. We will continue to follow along with you. * Brenda Hayes MD - 03/19/2025 5:42 PM EDT Images from the original note were not included. [facility] Artur Small, DUYEN Nephrology Consultation Note Patient Name: Caren Suarez : 1955 Date of Service: 03/19/25 PCP: Riya Diego MD Attending Physician: Dario Burris MD Admission Date: 02/25/2025 Length of stay: LOS: 22 days Chief complaint. Hypernatremia and TASHA Reason for Consult: Acute Kidney Injury Assessment and Plan. 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 She reports having a hard time breathing and a cough that went away ( she has had a hard time breathing and had a cough but it went away ). She had been treated by her PCP with steroids and antibiotics without improvement. An outpatient CT abdomen/pelvis on 02/24/2025 revealed a large right adnexal mass, a solid right renal lesion, and likely metastases to the lungs and abdomen. Venous duplex showed bilateral DVTs. She was transferred from [place] to [facility] for further evaluation and management. In the emergency department, she was started on a heparin drip. Workup upon admission included a CTA chest on 02/25/2025, which confirmed moderate right-sided pulmonary emboli without right heart strain. She is currently being treated for a urinary tract infection and bacterial peritonitis with IV Rocephin and Flagyl, with Infectious Disease on board. Nephrology consultation was requested for acute kidney injury. Assessment Acute Kidney Injury, likely multifactorial with hemodynamic and prerenal components, with concern for acute tubular necrosis (ATN). The TASHA is in the setting of sepsis, treatment for bacterial peritonitis, and obs uropathy , There was contrast exposure on 02/24/2025. Cr has improved. Right hydronephrosis, 2.2 cm right renal mass lesion Urology evaluated the patient Mild hypernatremia on initial evaluation. Hypophosphatemia. Metabolic acidosis on initial evaluation. Volume Status: Euvolemic , possibly on low side Hypertension: Stable, though has been on the higher side. Hemodynamics: Echocardiogram on 02/26/2025 showed a normal LVEF of 60-65% with Grade I diastolic dysfunction and no evidence of right heart strain. Anemia Most recent hemoglobin is 10.8 g/dL. Sepsis secondary to bacterial peritonitis and UTI. 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 ? Rectal ca Acute pulmonary embolism and bilateral DVT. Malignant Bowel obstruction , patient is status post exploratory laparotomy, total colectomy, left in discontinuity, and BSO on 03/07/2025 , repeat Second Look laparotomy and ileostomy creation on 03/09/2025 Peritoneal carcinomatosis Right renal mass Cardiac arrest intraoperatively, 03/07/2025 needing ACLS. Ventilator dependent respiratory failure postoperatively Plan Continue Lasix p.r.n. for volume management Strict ins and outs / accurate documentation of urine out put / daily weights and Bladder scan Q12 Avoid nephrotoxins, avoid contrast exposure unless absolutely necessary, avoid hemodynamic instability Dose all medications to GFR Monitor Renal Chem panel daily in AM Thank you for this consultation, we will follow along with you regarding care of this patient whilethe patient is here in the hospital, please call if you have any questions or concerns. BRENDA HAYES MD on 03/19/2025 at 5:42 PM [facility] [email or web address] - is now [employer] Schedule : See Epic on-call schedule for [facility] ( [facility] ) Nephrology Working Hours : Epic chat during working hours, if no response please use on- call physician reach out as below After Hours : Answering service contact : [phone] Office Phone number: [phone] Subjective Seen at bedside, no acute distress no chest pain or worsening of shortness of breath reported, no new complaint. Plan discussed in detail at bedside all questions answered in detail appropriate counseling done. I/O (24 Hours) Intake/Output Summary (Last 24 hours) at 03/19/2025 1742 Last data filed at 03/19/2025 1700 Gross per 24 hour Intake 240 ml Output 1575 ml Net -1335 ml Past Medical History: Diagnosis Date Deep vein thrombosis (CMS-HCC) Past Surgical History: Procedure Laterality Date APPLICATION WOUND VAC MIDSECTION N/A 03/09/2025 Performed by Ghassan Castillo MD at [facility] CLOSURE WOUND ABDOMEN N/A 03/09/2025 Performed by Ghassan Castillo MD at [facility] ILEOSTOMY CREATION N/A 03/09/2025 Performed by Ghassan Castillo MD at [facility] LAPAROTOMY EXPLORATORY N/A 03/09/2025 Performed by Ghassan Castillo MD at [facility] LAPAROTOMY EXPLORATORY N/A 03/07/2025 Performed by Ghassan Castillo MD at [facility] RESECTION BOWEL SMALL N/A 03/09/2025 Performed by Ghassan Castillo MD at [facility] SALPINGO-OOPHORECTOMY Bilateral 03/07/2025 Performed by Faith Celis MD at [facility] TOTAL COLECTOMY N/A 03/07/2025 Performed by Ghassan Castillo MD at [facility] Family History Problem Relation Age of Onset Breast cancer Neg Hx Social History Socioeconomic History Marital status: Single Spouse name: Not on file Number of children: Not on file Years of education: Not on file Highest education level: Not on file Occupational History Not on file Tobacco Use Smoking status: Former Types: Cigarettes Smokeless tobacco: Never Substance and Sexual Activity Alcohol use: Never Drug use: Never Sexual activity: Not on file Other Topics Concern Not on file Social History Narrative Not on file Social Drivers of Health Financial Resource Strain: Not on file Food Insecurity: No Food Insecurity (02/25/2025) Hunger Screening Food Insecurity - Worry: Never True Food Insecurity - Inability: Never True Transportation Needs: No Transportation Needs (02/25/2025) PRAPARE - Transportation Lack of Transportation (Medical): No Lack of Transportation (Non-Medical): No Physical Activity: Not on file Stress: Not on file Social Connections: Not on file Interpersonal Safety: Not At Risk (02/25/2025) Humiliation, Afraid, Rape, and Kick questionnaire Fear of Current or Ex-Partner: No Emotionally Abused: No Physically Abused: No Sexually Abused: No Housing Instability: Low Risk (02/25/2025) Housing Instability Housing Instability: No Prior to Admission medications Medication Sig Start Date End Date Taking? Authorizing Provider apixaban (ELIQUIS) 5 mg tablet Take 2 tablets (10 mg total) by mouth 2 (two) times a day for 7 days, THEN 1 tablet (5 mg total) 2 (two) times a day for 30 days. 03/05/25 04/11/25 Eleni Harding APRN-[employer]SISTANT [employer] Allergies Allergen Reactions Penicillin Physical Exam: VITALS BP 140/65 Pulse 94 Temp 37.1 ??C (98.8 ??F) (Axillary) Resp 18 Ht 157.5 cm (5' 2.01 ) Wt 79.8 kg (175 lb 14.8 oz) SpO2 92% BMI 32.17 kg/m?? Wt Readings from Last 3 Encounters: 03/19/25 79.8 kg (175 lb 14.8 oz) 02/24/25 74.4 kg (164 lb) BMI: Body mass index is 32.17 kg/m??. I/O (24 Hours) Intake/Output Summary (Last 24 hours) at 03/19/2025 1742 Last data filed at 03/19/2025 1700 Gross per 24 hour Intake 240 ml Output 1575 ml Net -1335 ml General: Awake, alert, no acute distress HEENT: Atraumatic, normocephalic. Anicteric sclera. [place] and moist oral mucosa. Neck No JVD. Chest: Bilateral air entry, clear to auscultation, no wheezing, rhonchi or rales. Cardiovascular: RRR, S1S2, no murmur, rub or gallop. No lower extremity edema. Abdomen: Soft, status post surgery, ileostomy in place Extremities: Edema stable +2 Integumentary: [place], warm and dry. Free from rash or lesions. CARBIDE GRINDER: Examination grossly nonfocal Medications Scheduled Meds: acetaminophen, 650 mg, oral, Q6H apixaban, 5 mg, oral, BID diphenoxylate-atropine, 2 tablet, oral, 4x Daily droNABinol, 2.5 mg, oral, BID AC folic acid, 1 mg, nasogastric, Daily insulin lispro, 2-10 Units, subcutaneous, With meals and nightly lidocaine, 1 patch, transdermal, Daily pantoprazole, 40 mg, oral, QAM AC OR pantoprazole, 40 mg, intravenous, QAM AC Continuous Infusions: dextrose 5 % in water, 100 mL/hr sodium chloride 0.9 %, 20 mL/hr, Last Rate: 50 mL/hr (03/11/25 0523) sodium chloride 0.9 %, 3 mL/hr, Last Rate: 3 mL/hr (03/16/25 184) PRN Meds: calcium gluconate OR calcium gluconate OR calcium gluconate dextrose dextrose 5 % in water dextrose 50 % in water (D50W) glucagon (human recombinant) hydrALAZINE magnesium sulfate OR magnesium sulfate methocarbamoL ondansetron OR ondansetron ODT oxyCODONE OR oxyCODONE potassium chloride OR potassium chloride potassium chloride in water OR potassium chloride in water sodium phosphate IV OR sodium phosphate IV - central line OR sod phos di, mono-K phos mono sodium chloride sodium chloride sodium chloride 0.9 % Results Review Renal Chemistry Results from last 7 days Lab Units 03/19/25 0448 03/18/25 1013 03/18/25 0401 03/17/25 2050 03/17/25 1556 03/17/25 0327 03/16/25 0904 03/16/25 0858 03/16/25 0304 SODIUM mmol/L -- 137 138 136 139 137 < > -- 141 POTASSIUM mmol/L -- 4.0 4.2 4.0 4.3 4.3 < > -- 3.8 CHLORIDE mmol/L -- 106 105 104 106 106 < > -- 107 CO2 mmol/L -- 23 24 24 26 25 < > -- 26 BUN mg/dL -- 6 7 7 7 9 < > -- 13 CREATININE mg/dL -- 0.45 0.45 0.48 0.43 0.37* < > -- 0.37* CALCIUM mg/dL -- 8.0* 7.9* 8.0* 8.3* 8.3* < > -- 7.5* MAGNESIUM mg/dL -- -- 2.0 -- 2.1 1.9 -- 2.2 1.8 PHOSPHORUS mg/dL 2.9 -- 3.0 -- -- 2.8 -- 3.4 2.5 < > = values in this interval not displayed. Hepatic: Lab Results Component Value Date AST 22 03/15/2025 AST 33 03/09/2025 AST 108 (H) 03/08/2025 ALT 16 03/15/2025 ALT 23 03/09/2025 ALT 33 (H) 03/08/2025 ALKPHOS 235 (H) 03/15/2025 ALKPHOS 38 (L) 03/09/2025 ALKPHOS 37 (L) 03/08/2025 BNP Lab Results Component Value Date BNP 22 03/08/2025 BNP 34 03/06/2025 BNP 61 02/24/2025 CBC Results from last 7 days Lab Units 03/18/25 0401 03/17/25 0327 03/16/25 0904 03/16/25 0304 03/15/25 0246 WBC x10E9/L 8.4 9.0 10.7 9.1 9.6 HEMOGLOBIN g/dL 10.0* 9.8* 11.1* 9.5* 11.6* HEMATOCRIT % 30.9* 30.5* 34.7* 29.8* 36.5 PLATELETS X10E9/L 221 192 209 169 185 Results from last 7 days Lab Units 03/19/25 0827 03/18/25 2129 03/18/25 1718 03/18/25 1059 03/18/25 1013 BEDSIDE GLUCOSE mg/dL 85 112* 96 89 -- GLUCOSE mg/dL -- -- -- -- 81 Urine Studies: Lab Results Component Value Date COLOR Yellow 03/06/2025 TURBIDITY Hazy (A) 03/06/2025 SPECIFICGRA 1.023 03/06/2025 NITRITE Negative 03/06/2025 PHURINE 6.0 03/06/2025 LEUKOCYTE Small (A) 03/06/2025 PROTEIN 50 mg/dL (A) 03/06/2025 KETONES 20 mg/dL (A) 03/06/2025 UROBILINOGEN <1.1 eu/dL 03/06/2025 BLOODHGB Large (A) 03/06/2025 Lab Results Component Value Date UPROCRTRAT 0.25 (H) 03/06/2025 Urine Sodium: No components found for: CRYSTAL Urine Potassium: No results found for: KUR Urine Chloride: No results found for: CLUR Urine Osmolarity: No components found for: OSMOU Urine Creatinine: No results found for: LABCREA Urine Eosinophils: No components found for: UEOS Urine Protein: No components found for: TPU Immunology Profile No results found for: PROTELECTR , SEDRATE , CRP , RF , ANASCREEN , ANTIDSDNA , C3 , C4 , ANCA , MYELOP , PROTEINASE3 , ANTIGLOMERU No results found for: HAV , HEPAIGM , HEPBIGM , HEPBCAB , HBEAG , HEPCAB SP: No results found for: SP C3:No results found for: C3 C4:No results found for: C4 MPO ANCA: No results found for: MPO PR3 ANCA: No components found for: PR3 hepatitis serologies ANTIGBM:No components found for: GBMABIGG HEPATITIS B SURFACE AG: No results found for: HEPBSAG HEPATITIS C AB: No results found for: HEPCAB Electrophoresis: SPEP:No results found for: PROT , LABALPH , LABBETA , PATH UPEP:No results found for: LABPE Anemia Profile Lab Results Component Value Date WBC 8.4 03/18/2025 WBC 9.0 03/17/2025 HGB 10.0 (L) 03/18/2025 HGB 9.8 (L) 03/17/2025 HCT 30.9 (L) 03/18/2025 HCT 30.5 (L) 03/17/2025 PLT 221 03/18/2025 PLT 192 03/17/2025 Lab Results Component Value Date IRON 12 (L) 02/26/2025 TIBC 321 02/26/2025 FERRITIN 78 02/26/2025 Bone Mineral Profile Lab Results Component Value Date CALCIUM 8.0 (L) 03/18/2025 Results from last 7 days Lab Units 03/18/25 0401 03/17/25 1556 03/17/25 0327 MAGNESIUM mg/dL 2.0 2.1 1.9 Echocardiogram: Echo complete W/O contrast Result Date: 02/26/2025 Left Ventricle: Left ventricle is small. Systolic function is normal with an ejection fraction of 60-65%. No segmental wall motion abnormalities. Grade I diastolic dysfunction (impaired relaxation) is present. Lateral E' is 11.70 cm/s. Medial E' is 7.94 cm/s. Right Ventricle: Right ventricular sizeappears normal. The right ventricular basal diameter is 22.0 mm. Systolic function is normal. Aortic Valve: There is trace to mild regurgitation. There is no evidence of aortic valve stenosis. Thank you for the consultation. Please do not hesitate to contact us for any further questions/concerns. We will continue to follow along with you. * Fernanda Soliman MD - 03/19/2025 3:55 PM EDT Images from the original note were not included. Pulmonary Critical Care Progress Note Patient seen for the follow up of acute hypoxic respiratory failure requiring intubation mechanicalventilation, status post intraoperative cardiac arrest, acute right-sided pulmonary emboli, acute DVT, right lower lobe infiltrate, pulmonary nodules, metastatic colorectal cancer, acute kidney injury, hydronephrosis, previous smoker Subjective: Patient was last seen by our service on 03/07/2025 prior to undergoing exploratory lap, total colectomy and bilateral salpingo-oophorectomy. Patient experienced cardiac arrest intraoperatively, achieved ROSC after 2 rounds of compressions. On 03/09/2025 she returned to the OR for an ileostomy creation, fascia closing and wound VAC placement. Patient had a left chest tube while in the ICU for leftpneumothorax, this has since resolved and chest tube was removed on 03/12/2025. She remained intubated and mechanically ventilated in the ICU until 03/12/2025. She was transferred out of the ICU 03/17/2025. Currently she is resting comfortably in bed with nursing staff at the bedside. No acute overnight events noted. She is tolerating oral intake but has a poor appetite. She denies any chest pain, coughor shortness of breath. Examination: Vitals: BP 140/65 Pulse 94 Temp 37.1 ??C (98.8 ??F) (Axillary) Resp 18 Ht 157.5 cm (5' 2.01 ) Wt 79.8 kg (175 lb 14.8 oz) SpO2 92% BMI 32.17 kg/m?? General appearance: In no acute distress, alert and cooperative with exam, EOM I Neck: No JVD Lungs: moderate air exchange, no wheezing or crackles Heart: regular rate and rhythm, S1, S2 normal, no gallop Abdomen: Soft, non tender, + BS, ileostomy Extremities: no cyanosis or clubbing. no skin rash or petechiae, positive edema LABs: Results from last 7 days Lab Units 03/18/25 0401 03/17/25 0327 03/16/25 0904 WBC x10E9/L 8.4 9.0 10.7 HEMOGLOBIN g/dL 10.0* 9.8* 11.1* HEMATOCRIT % 30.9* 30.5* 34.7* PLATELETS X10E9/L 221 192 209 Results from last 7 days Lab Units 03/18/25 1013 03/18/25 0401 03/17/25 2050 SODIUM mmol/L 137 138 136 POTASSIUM mmol/L 4.0 4.2 4.0 CHLORIDE mmol/L 106 105 104 CO2 mmol/L 23 24 24 BUN mg/dL 6 7 7 CREATININE mg/dL 0.45 0.45 0.48 CALCIUM mg/dL 8.0* 7.9* 8.0* Radiology: X-ray chest 03/19/2025 X-ray chest 03/13/2025 Impression & Recommendations: Acute hypoxic respiratory failure requiring intubation mechanical ventilation/Status post intraoperative cardiac arrest 03/07/25 Extubated 03/12/2025 Incentive spirometer q.1 hour while awake Continue supplemental oxygen as needed to maintain oxygen saturation greater than 92%, currently onroom air Acute right-sided pulmonary emboli/acute DVT right femoropopliteal, tibioperoneal, deep calf, left deep calf muscle Off Heparin drip, on Eliquis Echocardiogram with EF of 60-65%, normal right ventricular systolic function Right lower lobe infiltrate/Multiple pulmonary nodules, suspected metastasis Oncology following Infectious disease following, completed Rocephin and Flagyl Metastatic colorectal cancer/ Ovarian mass/renal mass/Malignant bowel obstruction status post totalcolectomy, end ileostomy creation and bilateral salpingo-oophorectomy/peritoneal carcinomatosis Gynecologic/oncology consulted/Medical oncology consulted, input noted Unable to complete EGD/colonoscopy secondary to patient intolerance to prep Infectious Disease managing antibiotics, Rocephin and Flagyl courses complete S/p paracentesis and soft tissue nodule biopsy 02/28/2025 with removal of 1850 mL of ludivina ascites fluid Peritoneal fluid culture is negative 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 Concern for obstruction from the known large rectal mass vs multicentric colorectal carcinoma + Similar appearanceof a 20 cm cystic pelvic lesion, recently characterized as rectal adenocarcinoma + Peritoneal carcin omatosis Monitor ileostomy function Diet per surgery Acute kidney injury/hydroureter nephrosis Nephrology following Urology following IV fluids per Nephrology Previous smoker, quit 12 years ago, 42 pack year history/Probable COPD Outpatient PFTs DVT prophylaxis with Eliquis PUD prophylaxis with PPI retirement facility discharge planning Fernanda Soliman MD, [facility] Pulmonary Critical Care and Sleep Medicine, [facility] Office: [phone] The note was completed using EMR. Every effort was made to ensure accuracy; however, inadvertent computerized logistics project manager errors may be present. * Arnav López MD - 03/19/2025 3:36 PM EDT Images from the original note were not included. [facility] PALLIATIVE CARE PROGRESS NOTE Date of Service: 03/19/2025 Patient Name: Caren Suarez : 1955 Subjective SUBJECTIVE Patient is a 70 yo female with a PMH of DVT and HTN who was admitted 02/26 to [facility] after a CT A/P at an OSH demonstrated large partially solid cystic lesions. At that time she was found to have multiple DVTs and PEs. She was transferred to [facility] for a higher level of care. On arrival, her DVTs were being treated with heparin. Colorectal surgery was consulted on 03/07 for possible bowel obstruction. At that time a CT A/P demonstrated colonic dilation with transition at the sigmoid junction. There is concern for acute malignant obstruction for known mucinous adenocarcinoma with colorectal origin. After stabilization of the patient's INR with [facility] on 03/07, the decision was made to takeher to the operating room as a joint case between Colorectal on Electronic Publishing Specialist/Onc. Total colectomy was performed 03/07/25, and 2nd look and end ileostomy creation was performed 03/09/25. Palliative care last saw the patient 03/14 where it was decided to change her code status to DNR CCA. Patient was also going to begin ACP documentation at that time. Allergies: Penicillin Inpatient Medications: Current Facility-Administered Medications: acetaminophen (TYLENOL) tablet 650 mg, 650 mg, oral, Q6H, Venita Chan MD, 650 mg at 03/19/25 0808 apixaban (ELIQUIS) tablet 5 mg, 5 mg, oral, BID, Deena Branch MD, 5 mg at 03/19/25 1159 calcium gluconate IVPB 1000 mg/50 mL (20 mg/mL premix), 1,000 mg, intravenous, PRN, Stopped at 03/16/25 2252 OR calcium gluconate IVPB 2000 mg/100 mL (20 mg/mL premix), 2,000 mg, intravenous, PRNOR calcium gluconate 3,000 mg in sodium chloride 0.9 % 100 mL IVPB, 3,000 mg, intravenous, PRN,Дмитрий Lara MD dextrose (GLUTOSE) 40 % gel 15 g, 15 g, oral, PRN, [place] Albright dextrose 5 % (D5W) infusion, 100 mL/hr, intravenous, Continuous PRN, [place] Albright dextrose 50 % in water (D50W) 50% solution 25 mL, 25 mL, intravenous, PRN, OK Albright diphenoxylate-atropine (LOMOTIL) 2.5-0.025 mg per tablet 2 tablet, 2 tablet, oral, 4x Daily, Ashok Hwang DO, 2 tablet at 03/19/25 1200 droNABinol (MARINOL) capsule 2.5 mg, 2.5 mg, oral, BID AC, Ashok Eri, DO, 2.5 mg at 03/19/25 0626 folic acid (FOLVITE) tablet 1 mg, 1 mg, nasogastric, Daily, OK Dang, 1 mg at 03/19/25 0808 glucagon HCL injection 1 mg, 1 mg, intramuscular, PRN, OK Albright hydrALAZINE (APRESOLINE) injection 10 mg, 10 mg, intravenous, Q6H PRN, Eleni Harding, STUDENT TRUCK DRIVER-ASSISTANT DIRECTOR OF RESIDENCE LIFE, 10 mg at 03/15/25 1211 insulin lispro (HumaLOG) injection 2-10 Units, 2-10 Units, subcutaneous, With meals and nightly, Deena Branch MD lidocaine (SALONPAS) 4 % 1 patch, 1 patch, transdermal, Daily, Venita Chan MD, 1 patch at 03/19/25 0808 magnesium sulfate IVPB 2000 mg/50 mL in iso-osmotic water (40 mg/mL premix), 2,000 mg, intravenous,PRN, Stopped at 03/17/25 0704 OR magnesium sulfate IVPB 4000 mg/100 mL in iso-osmotic water (40mg/mL premix), 4,000 mg, intravenous, PRN, Дмитрий Lara MD methocarbamoL (ROBAXIN) tablet 500 mg, 500 mg, oral, Q6H PRN, Venita Chan MD ondansetron (PF) (ZOFRAN) injection 4 mg, 4 mg, intravenous, PRN OR ondansetron ODT (ZOFRAN ODT) disintegrating tablet 8 mg, 8 mg, oral, PRN, Venita Chan MD oxyCODONE (ROXICODONE) immediate release tablet 2.5 mg, 2.5 mg, oral, Q4H PRN, 2.5 mg at 03/17/25 0937 OR oxyCODONE (ROXICODONE) immediate release tablet 5 mg, 5 mg, oral, Q4H PRN, Venita Chan MD pantoprazole (PROTONIX) EC tablet 40 mg, 40 mg, oral, QAM AC, 40 mg at 03/18/25 0911 OR pantoprazole (PROTONIX) injection 40 mg, 40 mg, intravenous, QAM AC, Venita Chan MD, 40 mg at 03/19/25 0626 potassium chloride (K-TAB,KLOR-CON) CR tablet 20-50 mEq, 20-50 mEq, oral, PRN, 30 mEq at 03/15/25 1531 OR potassium chloride (KAYCIEL) 20 mEq/15 mL solution 20-50 mEq, 20-50 mEq, oral, PRN, Дмитрий Lara MD, 30 mEq at 03/16/25 0411 potassium chloride IVPB 10 mEq/50 mL in water (0.2 mEq/mL premix), 10 mEq, intravenous, PRN, Stopped at 03/12/25 1226 OR potassium chloride IVPB 10 mEq/100 mL in water (0.1 mEq/mL premix), 10 mEq, intravenous, PRN, Дмитрий Lara MD sodium phosphate 20 mmol in sodium chloride 0.9 % 250 mL IVPB, 20 mmol, intravenous, PRN, Stopped at 03/16/25 0750 OR sodium phosphate 20 mmol in sodium chloride 0.9 % 100 mL IVPB, 20 mmol, intravenous, PRN, Stopped at 03/15/25 0921 OR sod phos di, mono-K phos mono (K-PHOS NEUTRAL) 250 mg ta blet 2 tablet, 2 tablet, oral, PRN, Дмитрий Lara MD, 2 tablet at 03/15/25 1529 sodium chloride 0.9 % flush 10 mL, 10 mL, intravenous, PRN, Deena Branch MD, 10 mL at 02/25/25 1857 sodium chloride 0.9 % flush 10 mL, 10 mL, intravenous, PRN, Ghassan Castillo MD, 10 mL at 03/08/25 0804 sodium chloride 0.9 % infusion, 20 mL/hr, intravenous, Continuous PRN, Neelima Ta, STUDENT TRUCK DRIVER-ASSISTANT DIRECTOR OF RESIDENCE LIFE, Last Rate: 50 mL/hr at 03/11/25 0523, 50 mL/hr at 03/11/25 0523 sodium chloride 0.9 % infusion, 3 mL/hr, intra-arterial, Continuous, Fernanda Soliman MD, Last Rate: 3 mL/hr at 03/16/25 1841, 3 mL/hr at 03/16/25 184 Home Medications: Prior to Admission medications Medication Sig Start Date End Date Taking? Authorizing Provider apixaban (ELIQUIS) 5 mg tablet Take 2 tablets (10 mg total) by mouth 2 (two) times a day for 7 days, THEN 1 tablet (5 mg total) 2 (two) times a day for 30 days. 03/05/25 04/11/25 Eleni Harding APRN-ASSISTANT DIRECTOR OF RESIDENCE LIFE Objective OBJECTIVE BP 140/65 Pulse 94 Temp 37.1 ??C (98.8 ??F) (Axillary) Resp 18 Ht 157.5 cm (5' 2.01 ) Wt 79.8 kg (175 lb 14.8 oz) SpO2 92% BMI 32.17 kg/m?? Intake/Output Summary (Last 24 hours) at 03/19/2025 1537 Last data filed at 03/19/2025 1000 Gross per 24 hour Intake 120 ml Output 875 ml Net -755 ml Patient resting comfortably in bed with no acute distress; non-labored breathing; family in room In preparation for, or response to, today's visit I Reviewed today's CBC/BMP, Reviewed recent CXR, and Reviewed recent progress notes PALLIATIVE CARE DISCUSSION We discussed with the patient about discharge planning which she says is currently being initiated with care navigation. 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 All other questions answered at this time. ASSESSMENT Metastatic Colorectal Cancer; Malignant Bowel Obstruction s/p exploratory laparotomy with colectomy, bilateral salpingo-oophorectomy 03/07--> s/p 2nd look exp lap with washout, SBR, end ileostomy, and wound vac 03/09 2. Respiratory Failure, Shock, S/p Cardiac Arrest- extubated 03/12 3. Palliative care encounter A. Code: DNR CCA B. Next of Kin: Mother C. POA: working on transferring from mother to nephew D. Prognosis: poor; Will need to follow up with oncology if she improves to see about treatment options and prognosis. Treatment would likely be palliative in nature. PLAN Palliative care will sign off at this time; please contact us in the future if any other questions/concerns arise. Bora Vázquez, MS4 [facility] Thank you for the opportunity to participate in the care of this patient. The palliative care team will continue to follow. Please contact us if we can be of additional assistance [phone]. Note has been documented by Bora Rioselvie on 03/19/2025 Attestation: I, ARNAV LÓPEZ MD, was physically present with the participating medical student. I personally verified the medical student's documentation in the medical record and performed a physical exam andmedical decision making for the patient. I made appropriate changes or clarifications to the note. [id number] * Radha Cisneros RN - 03/19/2025 3:15 PM EDT Images from the original note were not included. FOLLOW-UP: Post-Intensive Care Rounding Note Patient: Caren Suarez : 1955 Age: 70 y.o. Length of Stay: 22 days Admission Diagnosis: DVT (deep venous thrombosis) ([facility]) [I82.409] Pulmonary embolism ([facility]) [I26.99] Reviewing patient due to her recent transfer out from Intensive Care. Recorded vital signs are stable and the patient is not noted to be in any apparent distress. Telemetry and monitoring noted. Staff may call with any issues or concerns regarding her clinical presentation or stability. Thank you, RADHA CISNEROS RN Rapid Response: [facility] * Deena Branch MD - 03/19/2025 11:53 AM EDT Images from the original note were not included. Daily Progress Note CC : Abdominal pain Assessment Malignant small-bowel obstruction status post exploratory laparotomy and total colectomy Status post intraoperative cardiopulmonary arrest Acute hypoxic respiratory failure required intubation Peritoneal carcinomatosis with acute peritonitis Left pneumothorax status post chest tube-resolved Acute postop blood-loss anemia status post blood transfusion Acute renal failure Right hydronephrosis with 2.2 cm right renal mass Asymptomatic VRE UTI Acute provoked right sided PE Acute bilateral DVT Numerous pulmonary nodules likely metastasis Newly diagnosed Ovarian mass History of tobacco abuse Plan: Patient was transferred to the step-down unit Currently respiratory status is stable on room air, diet was advanced Still unable to ambulate, using Shalonda lift but able to 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 Currently being monitored off antibiotics as per ID Changed to Eliquis 5 mg po BID Changed and sliding scale insulin a.c. HS PT and OT and social service coordinator for discharge planning No need for further DVT prophylaxis. Subjective PT Denied any nausea vomiting , no diarrhea , no constipation , no chest pain , no palpitation , noheadache, other systems were reviewed and were negative. HPI: Caren Suarez is an 69 y.o. White or female. came to the hospital with Abnormal test results. Patient states that she has been experiencing cold-like symptoms with to thepoint where she was having hard time breathing. She went to her PCP who placed her on steroids withno improvement. She then was on antibiotic therapy with still no improvement. [facility] pelvis that reported large partially solid cystic lesions , 2.5 cm solid right renal lesion, and small bilateral noncalcified lower lobe pulmonary nodules and abdominal soft tissue nodules likely metastasis. She also underwent venous duplex of bilateral lower extremities that reported right acute DVT and left deep calf muscle vein DVT. she was Was then sent to the ER at [place] to be further evaluated and treated. She was transferred to [facility] for further evaluation and treatment. Patient was admitted initially to the medical floor and started on heparin drip Gynecology/Oncology was consulted Transvaginal ultrasound: 18.2 x 16.3 x 11.2 cm, multiloculated, cystic and solid lesion in the pelvis Thin prep negative for malignancy, negative high-risk HPV Status post paracentesis and soft tissue nodule biopsy today 02/28/2025 with removal of 1850 mL of ludivina ascites fluid, fluid analysis was consistent with peritonitis. CT scan of the abdomen and pelvis on 03/06/2025 showed Colonic dilatation with transition at the sigmoid junction. Concern for obstruction from the known large rectal mass vs multicentric colorectal carcinoma. Postprocedural ileus or colonic pseudoobstruction could appear similarly in the appropriate clinical setting.Similar appearance of a 20 cm cystic pelvic lesion, recently characterized as rectal adenocarcinoma. Peritoneal carcinomatosis. Indeterminate bilateral lung base pulmonary nodules,presumed metastatic. Few sclerotic pelvic lesions may reflect additional osseous metastases. Mild right hydroureteronephrosis, likely secondary to pelvic mass effect on the ureter.Redemonstrated 2.2 cm right interpolar renal mass lesion concerning for RCC. Colorectal surgery was consulted on 03/07 for possible bowel obstruction ,After stabilization of the patient's INR with [facility] on 03/07, the decision was made to take her to the operating room as a joint case between Colorectal on Electronic Publishing Specialist/Onc. At the beginning of the case, patient initially desaturated prior to incision. It was believed thatthis was due to the significant malignant ascites compressing the lungs. Decision was made to proceed with the case, and after decompression the patient's respiratory status significantly improved. The patient later went into cardiac arrest within the operating room and a code was initiated. Compressions were begun, epi was administered. After 2 rounds of compressions ROSC was obtained. ABThera was placed and the patient was transferred to the surgical ICU intubated and sedated. Patient was extubated on 03/12/2025, she was transferred to the step-down unit back in the [facility]. Social History Tobacco Use Smoking Status Former Types: Cigarettes Smokeless Tobacco Never Social History Substance and Sexual Activity Alcohol Use Never Physical examination : BP 140/65 Pulse 94 Temp 37.1 ??C (98.8 ??F) (Axillary) Resp 18 Ht 157.5 cm (5' 2.01 ) Wt 79.8 kg (175 lb 14.8 oz) SpO2 92% BMI 32.17 kg/m?? General Appearance: Alert, cooperative, no distress. Head: Normocephalic, without obvious abnormality, atraumatic Eyes: PERRL, conjunctiva/corneas clear, EOM's intact Ears: Normal external ear canals, both ears Nose: Nares normal, septum midline, mucosa normal, no drainage or sinus tenderness Throat: Lips, mucosa, and tongue normal; teeth and gums normal Neck: Supple, symmetrical, trachea midline, no adenopathy, thyroid: not enlarged, symmetric, no tenderness/mass/nodules, no carotid bruit or JVD Lungs: Clear to auscultation bilaterally, respirations unlabored, tactile fremitus are normal B/L Chest Wall: No tenderness or deformity Heart: Regular rate and rhythm, S1, S2 normal, no murmur, rub or gallop, PMI is not displaced Abdomen: Soft, non-tender, bowel sounds active all four quadrants, no masses, no organomegaly Extremities: Extremities normal, atraumatic, no cyanosis or edema Pulses: 2+ and symmetric Skin: Skin color, texture, turgor normal, no rashes or lesions Lymph nodes: Cervical, supraclavicular, and axillary nodes normal Neurologic: Nonfocal Labs : Results from last 7 days Lab Units 03/18/25 0401 03/17/25 0327 03/16/25 0904 WBC x10E9/L 8.4 9.0 10.7 HEMOGLOBIN g/dL 10.0* 9.8* 11.1* HEMATOCRIT % 30.9* 30.5* 34.7* PLATELETS X10E9/L 221 192 209 Results from last 7 days Lab Units 03/18/25 1013 03/18/25 0401 03/17/25 2050 POTASSIUM mmol/L 4.0 4.2 4.0 CHLORIDE mmol/L 106 105 104 CO2 mmol/L 23 24 24 BUN mg/dL 6 7 7 CREATININE mg/dL 0.45 0.45 0.48 CALCIUM mg/dL 8.0* 7.9* 8.0* Results from last 7 days Lab Units 03/18/25 0401 03/17/25 1556 03/17/25 0327 MAGNESIUM mg/dL 2.0 2.1 1.9 Results from last 7 days Lab Units 03/19/25 0448 03/18/25 0401 03/17/25 0327 INR 1.3* 1.2 1.1 The note was completed using EMR. Every effort was made to ensure accuracy; however, inadvertent computerized logistics project manager errors may be present. Deena Branch MD * Nuvia Flannery APRN-ASSISTANT DIRECTOR OF RESIDENCE LIFE - 03/19/2025 11:04 AM EDT Images from the original note were not included. Division of Infectious Diseases Progress note Academic Team Please contact us via [employer]. After hours, call [phone] Patient name: Caren Suarez Patient Today's Date and Time: 03/19/2025, 11:04 AM Admission Date: 02/25/2025 Primary Care Physician: Riya Diego MD Impression and Recommendations: Leukocytosis Large bowel obstruction Metastatic colorectal cancer Peritonitis S/P paracentesis 02/28/2025 - nucleated cells are elevated at 1900 with neutrophil predominance (60%) Peritoneal fluid culture is negative to date Abdominal soft tissue mass bx path report +mucinous adenocarcinoma c/w colorectal origin Status post exp lap, total colectomy, bilateral salpingo-oopherectomy, vac placemement 03/07 Status post creation of ileostomy and abdominal closure Wbc has normalized Completed ceftriaxone and metronidazole No evidence for infection at this time. Will sign off. Please call if needed. Intra operative cardiac arrest Acute respiratory failure resolved Urinary retention Positive urine culture Patient was retaining urine and [facility] last week. Urine culture +enterococcus. Patient was asymptomatic No fever or leukocytosis. Low suspicion for uti at this time Monitor off treatment TASHA Renal mass concerning for RCC Right hydronephrosis Positive urine culture Urine culture +VRE. No urinary symptoms when culture obtained. No systemic signs of infection at this time. No indication for treatment. Urology and nephrology following Acute PE, with R heart strain Multiple DVT On heparin Subjective Interval History: Patient seen and examined at bedside. Awakens and alert. Denies abdominal pain. No fever, chills orsweats. No shortness of breath or cough. No nausea, vomiting. Discussed with nursing Objective Physical Examination : BP 140/65 Pulse 94 Temp 37.1 ??C (98.8 ??F) (Axillary) Resp 18 Ht 157.5 cm (5' 2.01 ) Wt 79.8 kg (175 lb 14.8 oz) SpO2 92% BMI 32.17 kg/m?? Temperature Range: Temp: 37.1 ??C (98.8 ??F) Temp Av.8 ??C (98.3 ??F) Min: 36.3 ??C (97.4 ??F)Max: 37.1 ??C (98.8 ??F) General Appearance:lethargic and in no apparent distress Eyes: Sclera anicteric; conjunctivae pink Neck: Supple, without lymphadenopathy. Pulmonary/Chest: Clear to auscultation, without wheezes, rales, or rhonchi. Left sided chest tube in place Cardiovascular: Regular rate and rhythm without murmurs, rubs, or gallops. Abdomen: distended. Soft. Vac in place Extremities: No cyanosis, clubbing, , or effusions. +BLE edema Neurologic: Bulk and tone are normal. No atrophy is noted. Skin: No rash or lesions. Laboratory data: I have independently reviewed the following labs: Results from last 7 days Lab Units 03/18/25 0401 03/17/25 0327 03/16/25 0904 WBC x10E9/L 8.4 9.0 10.7 HEMOGLOBIN g/dL 10.0* 9.8* 11.1* HEMATOCRIT % 30.9* 30.5* 34.7* MCV fL 83 83 82 PLATELETS X10E9/L 221 192 209 Results from last 7 days Lab Units 03/18/25 1013 03/18/25 0401 03/17/25 2050 03/15/25 1356 03/15/25 0910 SODIUM mmol/L 137 138 136 < > 144 POTASSIUM mmol/L 4.0 4.2 4.0 < > 3.9 CHLORIDE mmol/L 106 105 104 < > 111* CO2 mmol/L 23 24 24 < > 27 BUN mg/dL 6 7 7 < > 13 CREATININE mg/dL 0.45 0.45 0.48 < > 0.43 CALCIUM mg/dL 8.0* 7.9* 8.0* < > 7.2* ALBUMIN g/dL -- -- -- -- 2.0* ALK PHOS U/L -- -- -- -- 235* ALT U/L -- -- -- -- 16 AST U/L -- -- -- -- 22 < > = values in this interval not displayed. Invalid input(s): BILIRUBINU , BILIRUBINNU Echo complete W/O contrast Result Date: 02/26/2025 Left Ventricle: Left ventricle is small. Systolic function is normal with an ejection fraction of 60-65%. No segmental wall motion abnormalities. Grade I diastolic dysfunction (impaired relaxation) is present. Lateral E' is 11.70 cm/s. Medial E' is 7.94 cm/s. Right Ventricle: Right ventricular sizeappears normal. The right ventricular basal diameter is 22.0 mm. Systolic function is normal. Aortic Valve: There is trace to mild regurgitation. There is no evidence of aortic valve stenosis. Imaging Studies: I have personally reviewed this study. Cultures: Microbiology Results No results found for the last 168 hours. Medications: acetaminophen, 650 mg, oral, Q6H diphenoxylate-atropine, 2 tablet, oral, 4x Daily droNABinol, 2.5 mg, oral, BID AC folic acid, 1 mg, nasogastric, Daily insulin lispro, 2-10 Units, subcutaneous, With meals and nightly lidocaine, 1 patch, transdermal, Daily pantoprazole, 40 mg, oral, QAM AC OR pantoprazole, 40 mg, intravenous, QAM AC Thank you for allowing us to participate in the care of this patient. Please call with questions. - ELLIOTT RENDON 03/19/25 11:04 AM ELLIOTT Rendon 03/19/25 1215 * Luigi Dennis RN - 03/19/2025 12:42 AM EDT Images from the original note were not included. FOLLOW-UP: Post-Intensive Care Rounding Note Patient: Caren Suarez : 1955 Age: 70 y.o. Length of Stay: 22 days Admission Diagnosis: DVT (deep venous thrombosis) ([facility] [I82.409] Pulmonary embolism ([facility]) [I26.99] Reviewing patient due to her recent transfer out from Intensive Care. Recorded vital signs are stable and the patient is not noted to be in any apparent distress. Telemetry and monitoring noted. Staff may call with any issues or concerns regarding her clinical presentation or stability. Thank you, Luigi Dennis RN Rapid Response: [facility] * ELLIOTT Christina - 03/18/2025 12:34 PM EDT Images from the original note were not included. [facility] Hematology and Oncology - Daily Progress Note 03/18/2025, 12:34 PM Impression/Plan: Metastatic Colorectal Cancer -Initially favoring ovarian primary given clinical pattern, but now with pathology positive for colorectal primary -Initial CT a/p showed large partially solid and partially cystic lesion in the right adnexa measuring 16 cm x 12 cm x 11 cm + lower anterior abdominal soft tissue nodules + 2.5 cm solid R renal lesion + diffuse intraperitoneal fluid -CTA chest revealed numerous pulmonary nodules -[id number], NX3=122, CEA=24.6, CA 19-9 WNL -TVUS noted an 18.2 cm cystic and solid lesion in the pelvis with ascites and peritoneal nodularity -S/p IR performed paracentesis and biopsy of soft tissue nodules 02/28 -Ascites fluid non-diagnostic -Abdominal soft tissue biopsy pathology positive for mucinous adenocarcinoma consistent with colorectal origin -Will need to recover from surgery before we can safely and effectively offer her systemic cancer treatments -Palliative medicine following for assistance with pain and GOC discussions -She will follow up with Dr. Romero after discharge for further management Malignant Bowel Obstruction, Abdominal Pain/Distention -Repeat CT a/p 03/06 shows Colonic dilatation with transition at the sigmoid junction. Concern for obstruction from the known large rectal mass vs multicentric colorectal carcinoma + Similar appearanceof a 20 cm cystic pelvic lesion, recently characterized as rectal adenocarcinoma + Peritoneal carcin omatosis -Now s/p exploratory laparotomy with colectomy, bilateral salpingo-oophorectomy 03/07--> s/p 2nd look exp lap with washout, SBR, end ileostomy, and wound vac 03/09 -Patient coded in surgery, requiring resuscitation, intubation, pressor support--> extubated 03/12 -General surgery following Anemia -Overall stable. Largely multifactorial due to severe B12 deficiency, folate deficiency, Iron deficiency anemia, acute infection, metastatic GI malignancy, renal insufficiency, surgical blood loss -Hgb=10.0(9.8, 11.1, 9.5, 11.6, 11.0, 10.4, 10.2, 10.2) normocytic -Last transfused 03/08 -S/p IM B12 & IV iron -Continue folic acid -No hemolysis -EGD/colonoscopy were planned, but not completed as patient could not tolerate bowel prep, likely due to bowel obstruction as discussed above -Transfuse for hgb<7 -Follow up with Dr. Kasunic PE/DVT -Likely provoked by metastatic malignancy -CTA shows Moderate right sided pulmonary emboli without evidence of right heart strain -Dopplers revealing acute R femoropopliteal, deep tibioperoneal, and deep calf muscle DVT + L deep calf muscle DVT -On heparin gtt, likely transition to DOAC prior to discharge. Vascular surgery recommending 5mg BID initial dosing -Repeat CTA chest 03/08 showed decreased burden of R pulmonary embolus Renal Mass, Hydroureteronephrosis, TASHA, hyperuricemia -CT imaging shows 2.5 cm R interpolar renal mass concerning for RCC + Mild right hydroureteronephrosis, likely secondary to pelvic mass effect on the ureter -Urology stated renal lesion is simple cyst -Urology, nephrology following Supratherapeutic INR -In setting of advanced metastatic disease, Eliquis therapy, acute infection -INR corrected s/p preoperative Vit K +/- FFP reversal UTI -On IV antibiotics -As per other services Respiratory Failure, Shock, S/p Cardiac Arrest -Extubated 03/12, out of ICU 03/17 Continue management of other medical problems as per appropriate services. Patient discussed with Dr. Romero. Please call with questions. Interval History: Patient seen and examined at bedside. She is out of ICU in the interim. Sleeping soundly. Does not appear to be in any pain or distress. VSS, afebrile. No overt bleeding. Physical Examination : Temp: [36.6 ??C (97.9 ??F)-36.9 ??C (98.4 ??F)] 36.6 ??C (97.9 ??F) Pulse: [81-106] 103 Resp: [19-30] 21 BP: (113-149)/(51-77) 145/69 SpO2: [94 %-100 %] 94 % O2 Device: None (Room air) O2 Flow Rate (L/min): [2 L/min] 2 L/min Temperature Range: Temp: 36.6 ??C (97.9 ??F) Temp Av.8 ??C (98.2 ??F) Min: 36.6 ??C (97.9 ??F)Max: 36.9 ??C (98.4 ??F) Weight change: -1.1 kg (-2 lb 6.8 oz) Physical Exam Vitals and nursing note reviewed. Constitutional: General: She is not in acute distress. Appearance: She is normal weight. She is ill-appearing HENT: Head: Normocephalic and atraumatic. Right Ear: External ear normal. Left Ear: External ear normal. Nose: Nose normal. Mouth/Throat: normal Eyes: General: Sleeping Cardiovascular: Rate and Rhythm: Tachycardia and regular rhythm. Pulmonary: Effort: Pulmonary effort is normal. No respiratory distress Findings: 2L NC Abdominal: General: There is no distension. +ileostomy, + wound vac Tenderness: There is no tenderness or guarding Musculoskeletal: Right lower leg: +2 edema Left lower leg: +2 edema Skin: General: Skin is warm and dry. Coloration: Skin is not jaundiced. Findings: Abdominal incision, wound vac Neurological: General: Sleeping Psychiatric: Mood and Affect: Sleeping Laboratory data: Results from last 7 days Lab Units 03/18/25 0401 03/17/25 0327 03/16/25 0904 WBC x10E9/L 8.4 9.0 10.7 HEMOGLOBIN g/dL 10.0* 9.8* 11.1* HEMATOCRIT % 30.9* 30.5* 34.7* PLATELETS X10E9/L 221 192 209 MCV fL 83 83 82 Results from last 7 days Lab Units 03/18/25 0401 03/17/25 0327 03/16/25 0304 03/13/25 0154 03/12/25 0205 PROTIME sec 13.7* 12.8 13.2 < > 13.5* INR 1.2 1.1 1.2 < > 1.2 APTT sec -- -- -- -- 48* < > = values in this interval not displayed. Results from last 7 days Lab Units 03/18/25 1059 03/18/25 1013 03/18/25 0606 03/18/25 0401 03/17/25 2157 03/17/25 2050 03/17/25 1556 03/17/25 0538 03/17/25 0327 03/16/25 0410 03/16/25 0304 03/15/25 1356 03/15/25 0910 SODIUM mmol/L -- 137 -- 138 -- 136 139 -- 137 < > 141 < > 144 POTASSIUM mmol/L -- 4.0 -- 4.2 -- 4.0 4.3 -- 4.3 < > 3.8 < > 3.9 CHLORIDE mmol/L -- 106 -- 105 -- 104 106 -- 106 < > 107 < > 111* CO2 mmol/L -- 23 -- 24 -- 24 26 -- 25 < > 26 < > 27 BUN mg/dL -- 6 -- 7 -- 7 7 -- 9 < > 13 < > 13 CREATININE mg/dL -- 0.45 -- 0.45 -- 0.48 0.43 -- 0.37* < > 0.37* < > 0.43 CALCIUM mg/dL -- 8.0* -- 7.9* -- 8.0* 8.3* -- 8.3* < > 7.5* < > 7.2* ALK PHOS U/L -- -- -- -- -- -- -- -- -- -- -- -- 235* ALT U/L -- -- -- -- -- -- -- -- -- -- -- -- 16 AST U/L -- -- -- -- -- -- -- -- -- -- -- -- 22 BEDSIDE GLUCOSE mg/dL 89 -- 82 -- < > -- -- < > -- < > -- < > -- GLUCOSE mg/dL -- 81 -- 66 -- 76 81 -- 63* < > 77 < > 142* INR -- -- -- 1.2 -- -- -- -- 1.1 -- 1.2 -- -- MAGNESIUM mg/dL -- -- -- 2.0 -- -- 2.1 -- 1.9 < > 1.8 -- -- < > = values in this interval not displayed. VITAMIN B12: Lab Results Component Value Date [id number] 110 (L) 02/26/2025 FOLATE: Lab Results Component Value Date FOLATE 3.3 (L) 02/26/2025 IRON: Lab Results Component Value Date IRON 12 (L) 02/26/2025 TIBC 321 02/26/2025 FERRITIN 78 02/26/2025 Medications: acetaminophen, 650 mg, oral, Q6H diphenoxylate-atropine, 2 tablet, oral, 4x Daily droNABinol, 2.5 mg, oral, BID AC folic acid, 1 mg, nasogastric, Daily insulin lispro, 2-10 Units, subcutaneous, With meals and nightly lidocaine, 1 patch, transdermal, Daily pantoprazole, 40 mg, oral, QAM AC OR pantoprazole, 40 mg, intravenous, QAM AC ELLIOTT Christina 03/18/25 1334 Cosigned by Geremias Romero MD at 03/18/2025 6:03 PM EDT * Deena Branch MD - 03/18/2025 11:59 AM EDT Images from the original note were not included. Daily Progress Note CC : Abdominal pain Assessment Malignant small-bowel obstruction status post exploratory laparotomy and total colectomy Status post intraoperative cardiopulmonary arrest Acute hypoxic respiratory failure required intubation Peritoneal carcinomatosis with acute peritonitis Left pneumothorax status post chest tube-resolved Acute postop blood-loss anemia status post blood transfusion Acute renal failure Right hydronephrosis with 2.2 cm right renal mass Asymptomatic VRE UTI Acute provoked right sided PE Acute bilateral DVT Numerous pulmonary nodules likely metastasis Newly diagnosed Ovarian mass History of tobacco abuse Plan: Patient was transferred to the step-down unit Currently respiratory status is stable on room air, diet was advanced Still unable to ambulate, using Shalonda lift but able to 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 Currently being monitored off antibiotics as per ID Remains on heparin drip with intention to switch to Eliquis closely at the time of discharge Change and sliding scale insulin a.c. HS PT and OT and social service coordinator for discharge planning No need for further DVT prophylaxis. Subjective PT Denied any nausea vomiting , no diarrhea , no constipation , no chest pain , no palpitation , noheadache, other systems were reviewed and were negative. HPI: Caren Suarez is an 69 y.o. White or female. came to the hospital with Abnormal test results. Patient states that she has been experiencing cold-like symptoms with to thepoint where she was having hard time breathing. She went to her PCP who placed her on steroids withno improvement. She then was on antibiotic therapy with still no improvement. [facility] pelvis that reported large partially solid cystic lesions , 2.5 cm solid right renal lesion, and small bilateral noncalcified lower lobe pulmonary nodules and abdominal soft tissue nodules likely metastasis. She also underwent venous duplex of bilateral lower extremities that reported right acute DVT and left deep calf muscle vein DVT. she was Was then sent to the ER at [place] to be further evaluated and treated. She was transferred to [facility] for further evaluation and treatment. Patient was admitted initially to the medical floor and started on heparin drip Gynecology/Oncology was consulted Transvaginal ultrasound: 18.2 x 16.3 x 11.2 cm, multiloculated, cystic and solid lesion in the pelvis Thin prep negative for malignancy, negative high-risk HPV Status post paracentesis and soft tissue nodule biopsy today 02/28/2025 with removal of 1850 mL of ludivina ascites fluid, fluid analysis was consistent with peritonitis. CT scan of the abdomen and pelvis on 03/06/2025 showed Colonic dilatation with transition at the sigmoid junction. Concern for obstruction from the known large rectal mass vs multicentric colorectal carcinoma. Postprocedural ileus or colonic pseudoobstruction could appear similarly in the appropriate clinical setting.Similar appearance of a 20 cm cystic pelvic lesion, recently characterized as rectal adenocarcinoma. Peritoneal carcinomatosis. Indeterminate bilateral lung base pulmonary nodules,presumed metastatic. Few sclerotic pelvic lesions may reflect additional osseous metastases. Mild right hydroureteronephrosis, likely secondary to pelvic mass effect on the ureter.Redemonstrated 2.2 cm right interpolar renal mass lesion concerning for RCC. Colorectal surgery was consulted on 03/07 for possible bowel obstruction ,After stabilization of the patient's INR with FFP on 03/07, the decision was made to take her to the operating room as a joint case between Colorectal on Electronic [employer] Specialist/Onc. At the beginning of the case, patient initially desaturated prior to incision. It was believed thatthis was due to the significant malignant ascites compressing the lungs. Decision was made to proceed with the case, and after decompression the patient's respiratory status significantly improved. The patient later went into cardiac arrest within the operating room and a code was initiated. Compressions were begun, epi was administered. After 2 rounds of compressions ROSC was obtained. ABThera was placed and the patient was transferred to the surgical ICU intubated and sedated. Patient was extubated on 03/12/2025, she was transferred to the step-down unit back in the hospitalas care. Social History Tobacco Use Smoking Status Former Types: Cigarettes Smokeless Tobacco Never Social History Substance and Sexual Activity Alcohol Use Never Physical examination : BP 145/69 Pulse 103 Temp 36.6 ??C (97.9 ??F) (Oral) Resp 21 Ht 157.5 cm (5' 2.01 ) Wt 83.2 kg (183 lb 6.8 oz) SpO2 94% BMI 33.54 kg/m?? General Appearance: Alert, cooperative, no distress. Head: Normocephalic, without obvious abnormality, atraumatic Eyes: PERRL, conjunctiva/corneas clear, EOM's intact Ears: Normal external ear canals, both ears Nose: Nares normal, septum midline, mucosa normal, no drainage or sinus tenderness Throat: Lips, mucosa, and tongue normal; teeth and gums normal Neck: Supple, symmetrical, trachea midline, no adenopathy, thyroid: not enlarged, symmetric, no tenderness/mass/nodules, no carotid bruit or JVD Lungs: Clear to auscultation bilaterally, respirations unlabored, tactile fremitus are normal B/L Chest Wall: No tenderness or deformity Heart: Regular rate and rhythm, S1, S2 normal, no murmur, rub or gallop, PMI is not displaced Abdomen: Soft, non-tender, bowel sounds active all four quadrants, no masses, no organomegaly Extremities: Extremities normal, atraumatic, no cyanosis or edema Pulses: 2+ and symmetric Skin: Skin color, texture, turgor normal, no rashes or lesions Lymph nodes: Cervical, supraclavicular, and axillary nodes normal Neurologic: Nonfocal Labs : Results from last 7 days Lab Units 03/18/25 0401 03/17/25 0327 03/16/25 0904 WBC x10E9/L 8.4 9.0 10.7 HEMOGLOBIN g/dL 10.0* 9.8* 11.1* HEMATOCRIT % 30.9* 30.5* 34.7* PLATELETS X10E9/L 221 192 209 Results from last 7 days Lab Units 03/18/25 1013 03/18/25 0401 03/17/25 2050 POTASSIUM mmol/L 4.0 4.2 4.0 CHLORIDE mmol/L 106 105 104 CO2 mmol/L 23 24 24 BUN mg/dL 6 7 7 CREATININE mg/dL 0.45 0.45 0.48 CALCIUM mg/dL 8.0* 7.9* 8.0* Results from last 7 days Lab Units 03/18/25 0401 03/17/25 1556 03/17/25 0327 MAGNESIUM mg/dL 2.0 2.1 1.9 Results from last 7 days Lab Units 03/18/25 0401 03/17/25 0327 03/16/25 0304 INR 1.2 1.1 1.2 The note was completed using EMR. Every effort was made to ensure accuracy; however, inadvertent computerized logistics project manager errors may be present. Deena Branch MD * Radha Cisneros RN - 03/18/2025 11:45 AM EDT Images from the original note were not included. FOLLOW-UP: Post-Intensive Care Rounding Note Patient: Caren Suarez : 1955 Age: 70 y.o. Length of Stay: 21 days Admission Diagnosis: DVT (deep venous thrombosis) ([facility] [I82.409] Pulmonary embolism ([facility]) [I26.99] Reviewing patient due to her recent transfer out from Intensive Care. Recorded vital signs are stable and the patient is not noted to be in any apparent distress. Telemetry and monitoring noted. Staff may call with any issues or concerns regarding her clinical presentation or stability. Thank you, RADHA CISNEROS RN Rapid Response: [facility] * Fernanda Soliman MD - 03/18/2025 9:56 AM EDT Images from the original note were not included. Pulmonary Critical Care Progress Note Patient seen for the follow up of acute hypoxic respiratory failure requiring intubation mechanicalventilation, status post intraoperative cardiac arrest, acute right-sided pulmonary emboli, acute DVT, right lower lobe infiltrate, pulmonary nodules, metastatic colorectal cancer, acute kidney injury, hydronephrosis, previous smoker Subjective: Patient was last seen by our service on 03/07/2025 prior to undergoing exploratory lap, total colectomy and bilateral salpingo-oophorectomy. Patient experienced cardiac arrest intraoperatively, achieved ROSC after 2 rounds of compressions. On 03/09/2025 she returned to the OR for an ileostomy creation, fascia closing and wound VAC placement. Patient had a left chest tube while in the ICU for leftpneumothorax, this has since resolved and chest tube was removed on 03/12/2025. She remained intubated and mechanically ventilated in the ICU until 03/12/2025. She was transferred out of the ICU yesterday evening. Currently she is resting comfortably in bed. She denies any chest pain, cough or shortness of breath. She is tolerating oral intake, reports poor appetite. Examination: Vitals: BP 145/69 Pulse 103 Temp 36.6 ??C (97.9 ??F) (Oral) Resp 21 Ht 157.5 cm (5' 2.01 ) Wt 83.2 kg (183 lb 6.8 oz) SpO2 94% BMI 33.54 kg/m?? General appearance: In no acute distress, alert and cooperative with exam, EOM I Neck: No JVD Lungs: moderate air exchange, no wheezing or crackles Heart: regular rate and rhythm, S1, S2 normal, no gallop Abdomen: Soft, non tender, + BS, ileostomy Extremities: no cyanosis or clubbing. no skin rash or petechiae, positive edema LABs: Results from last 7 days Lab Units 03/18/25 0401 03/17/25 0327 03/16/25 0904 WBC x10E9/L 8.4 9.0 10.7 HEMOGLOBIN g/dL 10.0* 9.8* 11.1* HEMATOCRIT % 30.9* 30.5* 34.7* PLATELETS X10E9/L 221 192 209 Results from last 7 days Lab Units 03/18/25 0401 03/17/25204903/17/25 1556 SODIUM mmol/L 138 136 139 POTASSIUM mmol/L 4.2 4.0 4.3 CHLORIDE mmol/L 105 104 106 CO2 mmol/L 24 24 26 BUN mg/dL 7 7 7 CREATININE mg/dL 0.45 0.48 0.43 CALCIUM mg/dL 7.9* 8.0* 8.3* Radiology: X-ray chest 03/13/2025 Impression & Recommendations: Acute hypoxic respiratory failure requiring intubation mechanical ventilation/Status post intraoperative cardiac arrest 03/07/25 Extubated 03/12/2025 Incentive spirometer q.1 hour while awake Continue supplemental oxygen as needed to maintain oxygen saturation greater than 92%, currently onroom air Acute right-sided pulmonary emboli/acute DVT right femoropopliteal, tibioperoneal, deep calf, left deep calf muscle Heparin drip, plan to restart Eliquis closer to discharge Echocardiogram with EF of 60-65%, normal right ventricular systolic function Right lower lobe infiltrate/Multiple pulmonary nodules, suspected metastasis Oncology following Infectious disease following, completed Rocephin and Flagyl X-ray chest in a.m. Metastatic colorectal cancer/ Ovarian mass/renal mass/Malignant bowel obstruction status post totalcolectomy, end ileostomy creation and bilateral salpingo-oophorectomy/peritoneal carcinomatosis Gynecologic/oncology consulted/Medical oncology consulted, input noted Unable to complete EGD/colonoscopy secondary to patient intolerance to prep Infectious Disease managing antibiotics, Rocephin and Flagyl courses complete S/p paracentesis and soft tissue nodule biopsy 02/28/2025 with removal of 1850 mL of ludivina ascites fluid Peritoneal fluid culture is negative 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 Concern for obstruction from the known large rectal mass vs multicentric colorectal carcinoma + Similar appearanceof a 20 cm cystic pelvic lesion, recently characterized as rectal adenocarcinoma + Peritoneal carcin omatosis Monitor ileostomy function Diet per surgery Acute kidney injury/hydroureter nephrosis Nephrology following Urology following IV fluids per Nephrology Previous smoker, quit 12 years ago, 42 pack year history/Probable COPD Outpatient PFTs DVT prophylaxis with Eliquis PUD prophylaxis with PPI Fernanda Soliman MD, [facility] Office: [phone] The note was completed using EMR. Every effort was made to ensure accuracy; however, inadvertent computerized logistics project manager errors may be present. * ELLIOTT Rendon - 03/18/2025 9:53 AM EDT Images from the original note were not included. Division of Infectious Diseases Progress note Academic Team Please contact us via [employer]. After hours, call [phone] Patient name: Caren Suarez Patient Today's Date and Time: 03/18/2025, 9:53 AM Admission Date: 02/25/2025 Primary Care Physician: Riya Diego MD Impression and Recommendations: Leukocytosis Large bowel obstruction Metastatic colorectal cancer Peritonitis S/P paracentesis 02/28/2025 - nucleated cells are elevated at 1900 with neutrophil predominance (60%) Peritoneal fluid culture is negative to date Abdominal soft tissue mass bx path report +mucinous adenocarcinoma c/w colorectal origin Status post exp lap, total colectomy, bilateral salpingo-oopherectomy, vac placemement 03/07 Status post creation of ileostomy and abdominal closure Wbc has normalized Completed ceftriaxone and metronidazole Will monitor off antibiotics General surgery following Intra operative cardiac arrest Acute respiratory failure Patient is extubated Urinary retention Positive urine culture Patient was retaining urine and camara place last week. Urine culture +enterococcus. Patient was asymptomatic No fever or leukocytosis. Low suspicion for uti at this time Monitor off treatment TASHA Renal mass concerning for RCC Right hydronephrosis Positive urine culture Urine culture +VRE. No urinary symptoms when culture obtained. No systemic signs of infection at this time. No indication for treatment. Urology and nephrology following Acute PE, with R heart strain Multiple DVT On heparin Subjective Interval History: Patient seen and examined at bedside. Awakens and alert. Denies abdominal pain. No fever, chills orsweats. No shortness of breath or cough. No nausea, vomiting. Vac changed today Objective Physical Examination : BP 145/69 Pulse 103 Temp 36.6 ??C (97.9 ??F) (Oral) Resp 21 Ht 157.5 cm (5' 2.01 ) Wt 83.2 kg (183 lb 6.8 oz) SpO2 94% BMI 33.54 kg/m?? Temperature Range: Temp: 36.6 ??C (97.9 ??F) Temp Av.7 ??C (98.1 ??F) Min: 36.6 ??C (97.9 ??F)Max: 36.9 ??C (98.4 ??F) General Appearance:lethargic and in no apparent distress Eyes: Sclera anicteric; conjunctivae pink Neck: Supple, without lymphadenopathy. Pulmonary/Chest: Clear to auscultation, without wheezes, rales, or rhonchi. Left sided chest tube in place Cardiovascular: Regular rate and rhythm without murmurs, rubs, or gallops. Abdomen: distended. Soft. Vac in place Extremities: No cyanosis, clubbing, , or effusions. +BLE edema Neurologic: Bulk and tone are normal. No atrophy is noted. Skin: No rash or lesions. Laboratory data: I have independently reviewed the following labs: Results from last 7 days Lab Units 03/18/25 0401 03/17/25 0327 03/16/25 0904 WBC x10E9/L 8.4 9.0 10.7 HEMOGLOBIN g/dL 10.0* 9.8* 11.1* HEMATOCRIT % 30.9* 30.5* 34.7* MCV fL 83 83 82 PLATELETS X10E9/L 221 192 209 Results from last 7 days Lab Units 03/18/25 0401 03/17/25 2050 03/17/25 1556 03/15/25 1356 03/15/25 0910 SODIUM mmol/L 138 136 139 < > 144 POTASSIUM mmol/L 4.2 4.0 4.3 < > 3.9 CHLORIDE mmol/L 105 104 106 < > 111* CO2 mmol/L 24 24 26 < > 27 BUN mg/dL 7 7 7 < > 13 CREATININE mg/dL 0.45 0.48 0.43 < > 0.43 CALCIUM mg/dL 7.9* 8.0* 8.3* < > 7.2* ALBUMIN g/dL -- -- -- -- 2.0* ALK PHOS U/L -- -- -- -- 235* ALT U/L -- -- -- -- 16 AST U/L -- -- -- -- 22 < > = values in this interval not displayed. Invalid input(s): BILIRUBINU , BILIRUBINNU Echo complete W/O contrast Result Date: 02/26/2025 Left Ventricle: Left ventricle is small. Systolic function is normal with an ejection fraction of 60-65%. No segmental wall motion abnormalities. Grade I diastolic dysfunction (impaired relaxation) is present. Lateral E' is 11.70 cm/s. Medial E' is 7.94 cm/s. Right Ventricle: Right ventricular sizeappears normal. The right ventricular basal diameter is 22.0 mm. Systolic function is normal. Aortic Valve: There is trace to mild regurgitation. There is no evidence of aortic valve stenosis. Imaging Studies: Procedure Component Value Units Date/Time X-ray chest 1 view [[id number]] Collected: 03/12/25440 Order Status: Completed Updated: 03/12/25444 Narrative: Clinical history: Intubated. Comparisons: 03/09/2025 through 03/11/2025. Findings: AP portable supine chest radiograph obtained. Endotracheal tube terminates 5 cm above thelevel of the venecia. Left-sided chest tube unchanged with sidehole likely just outside of the levelof the pleural space similar to previous 3 exams. There is no pneumothorax. There is bibasilar subsegmental atelectasis. Right IJ central venous catheter/sheath unchanged and confluence of innominate veins. PH probe terminates in distal esophagus. Nasogastric tube terminates off film in left upper abdomen. Pleural effusion. Continued decrease in volume of left lateral chest wall subcutaneous emphysema. IMPRESSION: 1. No pneumothorax. 2. Satisfactory ET tube position. Finalized by Arsalan Lott MD on 03/12/2025 4:44 AM I have personally reviewed this study. Cultures: Microbiology Results No results found for the last 168 hours. Medications: acetaminophen, 650 mg, oral, Q6H diphenoxylate-atropine, 2 tablet, oral, 4x Daily droNABinol, 2.5 mg, oral, BID AC folic acid, 1 mg, nasogastric, Daily furosemide, 20 mg, intravenous, Once insulin lispro, 2-10 Units, subcutaneous, Q6H lidocaine, 1 patch, transdermal, Daily pantoprazole, 40 mg, oral, QAM AC OR pantoprazole, 40 mg, intravenous, QAM AC Thank you for allowing us to participate in the care of this patient. Please call with questions. - NUVIA FLANNERY APRN-DUYEN 03/18/25 9:53 AM Nuvia Flannery APRN-DUYEN 03/17/25 1206 Nuvia Flannery APRN-DUYEN 03/18/25 1120 * Brenda Hayes MD - 03/18/2025 9:35 AM EDT Images from the original note were not included. [facility] Nephrology Consultation Note Patient Name: Caren Suarez : 1955 Date of Service: 03/18/25 PCP: Riya Diego MD Attending Physician: Dario Burris MD Admission Date: 02/25/2025 Length of stay: LOS: 21 days Chief complaint. Hypernatremia and TASHA Reason for Consult: Acute Kidney Injury Assessment and Plan. 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 She reports having a hard time breathing and a cough that went away ( she has had a hard time breathing and had a cough but it went away ). She had been treated by her PCP with steroids and antibiotics without improvement. An outpatient CT abdomen/pelvis on 02/24/2025 revealed a large right adnexal mass, a solid right renal lesion, and likely metastases to the lungs and abdomen. Venous duplex showed bilateral DVTs. She was transferred from [place] to [facility] for further evaluation and management. In the emergency department, she was started on a heparin drip. Workup upon admission included a CTA chest on 02/25/2025, which confirmed moderate right-sided pulmonary emboli without right heart strain. She is currently being treated for a urinary tract infection and bacterial peritonitis with IV Rocephin and Flagyl, with Infectious Disease on board. Nephrology consultation was requested for acute kidney injury. Assessment Acute Kidney Injury, likely multifactorial with hemodynamic and prerenal components, with concern for acute tubular necrosis (ATN). The TASHA is in the setting of sepsis, treatment for bacterial peritonitis, and obs uropathy , There was contrast exposure on 02/24/2025. Cr has improved. Right hydronephrosis, 2.2 cm right renal mass lesion Urology evaluated the patient Mild hypernatremia on initial evaluation. Hypophosphatemia. Metabolic acidosis on initial evaluation. Volume Status: Euvolemic , possibly on low side Hypertension: Stable, though has been on the higher side. Hemodynamics: Echocardiogram on 02/26/2025 showed a normal LVEF of 60-65% with Grade I diastolic dysfunction and no evidence of right heart strain. Anemia Most recent hemoglobin is 10.8 g/dL. Sepsis secondary to bacterial peritonitis and UTI. 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 ? Rectal ca Acute pulmonary embolism and bilateral DVT. Malignant Bowel obstruction , patient is status post exploratory laparotomy, total colectomy, left in discontinuity, and BSO on 03/07/2025 , repeat Second Look laparotomy and ileostomy creation on 03/09/2025 Peritoneal carcinomatosis Right renal mass Cardiac arrest intraoperatively, 03/07/2025 needing ACLS. Ventilator dependent respiratory failure postoperatively Plan Continue D5 half-normal saline at 40 mL/hour, we will give 1 dose of IV Lasix 20 mg 1 time for lower extremity edema. Once patient diet is advanced to optimum level IV fluids can be discontinued. Continue Lasix p.r.n. for volume management Strict ins and outs / accurate documentation of urine out put / daily weights and Bladder scan Q12 Avoid nephrotoxins, avoid contrast exposure unless absolutely necessary, avoid hemodynamic instability Dose all medications to GFR Monitor Renal Chem panel daily in AM Thank you for this consultation, we will follow along with you regarding care of this patient whilethe patient is here in the hospital, please call if you have any questions or concerns. BRENDA HAYES MD on 03/18/2025 at 9:36 AM [facility] [email or web address] Schedule : See Epic on-call schedule for [facility] ( [facility] ) Nephrology Working Hours : Epic chat during working hours, if no response please use on- call physician reach out as below After Hours : Answering service contact : [phone] Office Phone number: [phone] Subjective Seen at bedside, no acute distress no chest pain or worsening of shortness of breath reported, no new complaint. Plan discussed in detail at bedside all questions answered in detail appropriate counseling done. I/O (24 Hours) Intake/Output Summary (Last 24 hours) at 03/18/2025 0936 Last data filed at 03/18/2025 0635 Gross per 24 hour Intake 175.21 ml Output 3300 ml Net -3124.79 ml Past Medical History: Diagnosis Date Deep vein thrombosis ([facility]) Past Surgical History: Procedure Laterality Date APPLICATION WOUND VAC MIDSECTION N/A 03/09/2025 Performed by Ghassan Castillo MD at [facility] CLOSURE WOUND ABDOMEN N/A 03/09/2025 Performed by Ghassan Castillo MD at [facility] ILEOSTOMY CREATION N/A 03/09/2025 Performed by Ghassan Castillo MD at [facility] LAPAROTOMY EXPLORATORY N/A 03/09/2025 Performed by Ghassan Castillo MD at [facility] LAPAROTOMY EXPLORATORY N/A 03/07/2025 Performed by Ghassan Castillo MD at [facility] RESECTION BOWEL SMALL N/A 03/09/2025 Performed by Ghassan Castillo MD at [facility] SALPINGO-OOPHORECTOMY Bilateral 03/07/2025 Performed by Faith Celis MD at [facility] TOTAL COLECTOMY N/A 03/07/2025 Performed by Ghassan Castillo MD at [facility] Family History Problem Relation Age of Onset Breast cancer Neg Hx Social History Socioeconomic History Marital status: Single Spouse name: Not on file Number of children: Not on file Years of education: Not on file Highest education level: Not on file Occupational History Not on file Tobacco Use Smoking status: Former Types: Cigarettes Smokeless tobacco: Never Substance and Sexual Activity Alcohol use: Never Drug use: Never Sexual activity: Not on file Other Topics Concern Not on file Social History Narrative Not on file Social Drivers of Health Financial Resource Strain: Not on file Food Insecurity: No Food Insecurity (02/25/2025) Hunger Screening Food Insecurity - Worry: Never True Food Insecurity - Inability: Never True Transportation Needs: No Transportation Needs (02/25/2025) PRAPARE - Transportation Lack of Transportation (Medical): No Lack of Transportation (Non-Medical): No Physical Activity: Not on file Stress: Not on file Social Connections: Not on file Interpersonal Safety: Not At Risk (02/25/2025) Humiliation, Afraid, Rape, and Kick questionnaire Fear of Current or Ex-Partner: No Emotionally Abused: No Physically Abused: No Sexually Abused: No Housing Instability: Low Risk (02/25/2025) Housing Instability Housing Instability: No Prior to Admission medications Medication Sig Start Date End Date Taking? Authorizing Provider apixaban (ELIQUIS) 5 mg tablet Take 2 tablets (10 mg total) by mouth 2 (two) times a day for 7 days, THEN 1 tablet (5 mg total) 2 (two) times a day for 30 days. 03/05/25 04/11/25 Eleni Harding APRN-ASSISTANT [employer] Allergies Allergen Reactions Penicillin ROS: Constitutional: No fever, chills, lethargy, weakness and wt loss. Cardiac: No chest pain, dyspnea, orthopnea or PND. Chest: No cough, phlegm or wheezing. Abdomen: No nausea, no vomiting or diarrhea. : No hematuria, pyuria, dysuria or flank pain. Extremities: No swelling or joint pains. Physical Exam: VITALS BP 145/69 Pulse 103 Temp 36.6 ??C (97.9 ??F) (Oral) Resp 21 Ht 157.5 cm (5' 2.01 ) Wt 83.2 kg (183 lb 6.8 oz) SpO2 94% BMI 33.54 kg/m?? Wt Readings from Last 3 Encounters: 03/18/25 83.2 kg (183 lb 6.8 oz) 02/24/25 74.4 kg (164 lb) BMI: Body mass index is 33.54 kg/m??. I/O (24 Hours) Intake/Output Summary (Last 24 hours) at 03/18/2025 0936 Last data filed at 03/18/2025 0635 Gross per 24 hour Intake 175.21 ml Output 3300 ml Net -3124.79 ml General: Awake, alert, no acute distress HEENT: Atraumatic, normocephalic. Anicteric sclera. [place] and moist oral mucosa. Neck No JVD. Chest: Bilateral air entry, clear to auscultation, no wheezing, rhonchi or rales. Cardiovascular: RRR, S1S2, no murmur, rub or gallop. No lower extremity edema. Abdomen: Soft, status post surgery, ileostomy in place Musculoskeletal: No cyanosis or clubbing. Integumentary: [place], warm and dry. Free from rash or lesions. CARBIDE GRINDER: Examination grossly nonfocal Medications Scheduled Meds: acetaminophen, 650 mg, oral, Q6H diphenoxylate-atropine, 2 tablet, oral, 4x Daily droNABinol, 2.5 mg, oral, BID AC folic acid, 1 mg, nasogastric, Daily furosemide, 20 mg, intravenous, Once insulin lispro, 2-10 Units, subcutaneous, Q6H lidocaine, 1 patch, transdermal, Daily pantoprazole, 40 mg, oral, QAM AC OR pantoprazole, 40 mg, intravenous, QAM AC Continuous Infusions: dextrose 5 % in water, 100 mL/hr D5 % and 0.45 % sodium chloride, 40 mL/hr, Last Rate: 40 mL/hr (03/18/25 0635) heparin, 300-3,500 Units/hr, Last Rate: 1,050 Units/hr (03/17/25 1055) sodium chloride 0.9 %, 20 mL/hr, Last Rate: 50 mL/hr (03/11/25 0523) sodium chloride 0.9 %, 3 mL/hr, Last Rate: 3 mL/hr (03/16/25 1841) PRN Meds: calcium gluconate OR calcium gluconate OR calcium gluconate dextrose dextrose 5 % in water dextrose 50 % in water (D50W) glucagon (human recombinant) heparin (porcine) hydrALAZINE magnesium sulfate OR magnesium sulfate methocarbamoL ondansetron OR ondansetron ODT oxyCODONE OR oxyCODONE potassium chloride OR potassium chloride potassium chloride in water OR potassium chloride in water sodium phosphate IV OR sodium phosphate IV - central line OR sod phos di, mono-K phos mono sodium chloride sodium chloride sodium chloride 0.9 % Results Review Renal Chemistry Results from last 7 days Lab Units 03/18/25 04003/17/25204903/17/25 1556 03/17/25 0327 03/16/25 1957 03/16/25 0904 03/16/25 0858 03/16/25 0304 03/15/25 2231 SODIUM mmol/L 138 136 139 137 137 < > -- 141 140 POTASSIUM mmol/L 4.2 4.0 4.3 4.3 4.3 < > -- 3.8 3.9 CHLORIDE mmol/L 105 104 106 106 107 < > -- 107 108 CO2 mmol/L 24 24 26 25 23 < > -- 26 26 BUN mg/dL 7 7 7 9 10 < > -- 13 13 CREATININE mg/dL 0.45 0.48 0.43 0.37* 0.45 < > -- 0.37* 0.39* CALCIUM mg/dL 7.9* 8.0* 8.3* 8.3* 7.9* < > -- 7.5* 7.3* MAGNESIUM mg/dL 2.0 -- 2.1 1.9 -- -- 2.2 1.8 -- PHOSPHORUS mg/dL 3.0 -- -- 2.8 -- -- 3.4 2.5 2.3* < > = values in this interval not displayed. Hepatic: Lab Results Component Value Date AST 22 03/15/2025 AST 33 03/09/2025 AST 108 (H) 03/08/2025 ALT 16 03/15/2025 ALT 23 03/09/2025 ALT 33 (H) 03/08/2025 ALKPHOS 235 (H) 03/15/2025 ALKPHOS 38 (L) 03/09/2025 ALKPHOS 37 (L) 03/08/2025 BNP Lab Results Component Value Date BNP 22 03/08/2025 BNP 34 03/06/2025 BNP 61 02/24/2025 CBC Results from last 7 days Lab Units 03/18/2540003/17/257 03/16/25 0904 03/16/25 0304 03/15/25 0246 WBC x10E9/L 8.4 9.0 10.7 9.1 9.6 HEMOGLOBIN g/dL 10.0* 9.8* 11.1* 9.5* 11.6* HEMATOCRIT % 30.9* 30.5* 34.7* 29.8* 36.5 PLATELETS X10E9/L 221 192 209 169 185 Results from last 7 days Lab Units 03/18/25 0606 03/18/25 0401 03/17/25215603/17/25204903/17/25 1556 BEDSIDE GLUCOSE mg/dL 82 -- 84 -- -- GLUCOSE mg/dL -- 66 -- 76 81 Urine Studies: Lab Results Component Value Date COLOR Yellow 03/06/2025 TURBIDITY Hazy (A) 03/06/2025 SPECIFICGRA 1.023 03/06/2025 NITRITE Negative 03/06/2025 PHURINE 6.0 03/06/2025 LEUKOCYTE Small (A) 03/06/2025 PROTEIN 50 mg/dL (A) 03/06/2025 KETONES 20 mg/dL (A) 03/06/2025 UROBILINOGEN <1.1 eu/dL 03/06/2025 BLOODHGB Large (A) 03/06/2025 Lab Results Component Value Date UPROCRTRAT 0.25 (H) 03/06/2025 Urine Sodium: No components found for: CRYSTAL Urine Potassium: No results found for: KUR Urine Chloride: No results found for: CLUR Urine Osmolarity: No components found for: OSMOU Urine Creatinine: No results found for: LABCREA Urine Eosinophils: No components found for: UEOS Urine Protein: No components found for: TPU Immunology Profile No results found for: PROTELECTR , SEDRATE , CRP , RF , ANASCREEN , ANTIDSDNA , C3 , C4 , ANCA , MYELOP , PROTEINASE3 , ANTIGLOMERU No results found for: HAV , HEPAIGM , HEPBIGM , HEPBCAB , HBEAG , HEPCAB SP: No results found for: SP C3:No results found for: C3 C4:No results found for: C4 MPO ANCA: No results found for: MPO PR3 ANCA: No components found for: PR3 hepatitis serologies ANTIGBM:No components found for: GBMABIGG HEPATITIS B SURFACE AG: No results found for: HEPBSAG HEPATITIS C AB: No results found for: HEPCAB Electrophoresis: SPEP:No results found for: PROT , LABALPH , LABBETA , PATH UPEP:No results found for: LABPE Anemia Profile Lab Results Component Value Date WBC 8.4 03/18/2025 WBC 9.0 03/17/2025 HGB 10.0 (L) 03/18/2025 HGB 9.8 (L) 03/17/2025 HCT 30.9 (L) 03/18/2025 HCT 30.5 (L) 03/17/2025 PLT 221 03/18/2025 PLT 192 03/17/2025 Lab Results Component Value Date IRON 12 (L) 02/26/2025 TIBC 321 02/26/2025 FERRITIN 78 02/26/2025 Bone Mineral Profile Lab Results Component Value Date CALCIUM 7.9 (L) 03/18/2025 Results from last 7 days Lab Units 03/18/25 0401 03/17/25 1556 03/17/25 0327 MAGNESIUM mg/dL 2.0 2.1 1.9 Echocardiogram: Echo complete W/O contrast Result Date: 02/26/2025 Left Ventricle: Left ventricle is small. Systolic function is normal with an ejection fraction of 60-65%. No segmental wall motion abnormalities. Grade I diastolic dysfunction (impaired relaxation) is present. Lateral E' is 11.70 cm/s. Medial E' is 7.94 cm/s. Right Ventricle: Right ventricular sizeappears normal. The right ventricular basal diameter is 22.0 mm. Systolic function is normal. Aortic Valve: There is trace to mild regurgitation. There is no evidence of aortic valve stenosis. Thank you for the consultation. Please do not hesitate to contact us for any further questions/concerns. We will continue to follow along with you. * London Merino MD - 03/18/2025 8:21 AM EDT Images from the original note were not included. Colorectal Surgery Daily Progress Note Patient Name: Caren J Bibler Admit Date: 02/25/2025 Length of Stay: 21 Days Admitting Physician: Deena Branch MD Subjective: No acute events overnight. She was transferred out of the ICU yesterday. On a gastric soft diet yesterday and is tolerating it. She denies nausea and vomiting. Her pain is well-controlled on the current pain regimen. Objective: Vitals: 03/18/25 0819 BP: 145/69 Pulse: 103 Resp: 21 Temp: 36.6 ??C (97.9 ??F) SpO2: 94% Temp: [36.6 ??C (97.9 ??F)-36.9 ??C (98.4 ??F)] 36.6 ??C (97.9 ??F) Pulse: [81-106] 103 Resp: [19-30] 21 BP: (113-165)/(51-77) 145/69 SpO2: [94 %-100 %] 94 % O2 Device: None (Room air) O2 Flow Rate (L/min): [2 L/min] 2 L/min Allergies Allergen Reactions Penicillin Intake/Output last 3 shifts: I/O last 3 completed shifts: In: 602.5 [I.V.:502.6; IV Piggyback:99.9] Out: 4540 [Urine:4265; Stool:275] Intake/Output this shift: No intake/output data recorded. Dietary Orders (From admission, onward) Start Ordered 03/17/25 1722 Adult nutrition supplements Continuous Question Answer Comment Diet Type or Consistency: Regular Texture Select Supplement: Standard House Supplement 8 oz Supplement Frequency: BID 03/17/25 1721 03/17/25 1156 Adult diet Regular Texture; Low Fiber (gastric soft) Diet effective now Question Answer Comment Diet Type: Regular Texture Other Modifiers: Low Fiber (gastric soft) 03/17/25 1155 03/17/25 1156 Adult nutrition supplements Continuous Question Answer Comment Diet Type or Consistency: Regular Texture Select Supplement: Thick Frozen Dessert Supplement Frequency: BID 03/17/25 1156 Physical Exam Physical Exam Constitutional: General: She is sleeping. Interventions: Nasal cannula in place. Cardiovascular: Rate and Rhythm: Normal rate and regular rhythm. Pulmonary: Effort: Tachypnea present. Abdominal: General: There is distension (Mild). Palpations: Abdomen is soft. Tenderness: There is no abdominal tenderness. Comments: Midline incision slight oozing, Stoma pink, brown liquid stool noted in ostomy bag Neurological: Mental Status: She is easily aroused. 24 hour wound VAC output: Not recorded on 03/17 24 hour ileostomy output: Not recorded on 03/17 24 hour urine output: 2950 mL Laboratory Data: Latest Reference Range & Units 03/15/25 02:46 03/16/25 03:04 03/16/25 09:04 03/17/25 03:27 White Blood Cells 4 - 11 x10E9/L 9.6 9.1 10.7 9.0 RBC count 3.8 - 5.2 X10E12/L 4.42 3.61 (L) 4.23 3.69 (L) Hemoglobin 11.7 - 15.5 g/dL 11.6 (L) 9.5 (L) 11.1 (L) 9.8 (L) Hematocrit 35 - 47 % 36.5 29.8 (L) 34.7 (L) 30.5 (L) MCV 80 - 100 fL 82 83 82 83 MCH 27 - 34 pg 26.3 (L) 26.4 (L) 26.2 (L) 26.6 (L) MPV 7 - 12 fL 8.4 8.1 8.1 8.4 MCHC 32 - 36 g/dL 32.0 32.0 31.9 (L) 32.2 RDW 11.5 - 15 % 27.4 (H) 27.3 (H) 27.5 (H) 27.7 (H) Platelets 150 - 450 X10E9/L 185 169 209 192 Lab Results Component Value Date GLU 82 03/18/2025 CALCIUM 7.9 (L) 03/18/2025 SODIUM 138 03/18/2025 K 4.2 03/18/2025 CO2 24 03/18/2025 BUN 7 03/18/2025 CREATININE 0.45 03/18/2025 Lab Results Component Value Date INR 1.2 03/18/2025 INR 1.1 03/17/2025 INR 1.2 2025 PROTIME 13.7 (H) 03/18/2025 PROTIME 12.8 03/17/2025 PROTIME 13.2 2025 acetaminophen, 650 mg, oral, Q6H diphenoxylate-atropine, 2 tablet, oral, 4x Daily droNABinol, 2.5 mg, oral, BID AC folic acid, 1 mg, nasogastric, Daily insulin lispro, 2-10 Units, subcutaneous, Q6H lidocaine, 1 patch, transdermal, Daily pantoprazole, 40 mg, oral, QAM AC OR pantoprazole, 40 mg, intravenous, QAM AC calcium gluconate OR calcium gluconate OR calcium gluconate dextrose dextrose 5 % in water dextrose 50 % in water (D50W) glucagon (human recombinant) heparin (porcine) hydrALAZINE magnesium sulfate OR magnesium sulfate methocarbamoL ondansetron OR ondansetron ODT oxyCODONE OR oxyCODONE potassium chloride OR potassium chloride potassium chloride in water OR potassium chloride in water sodium phosphate IV OR sodium phosphate IV - central line OR sod phos di, mono-K phos mono sodium chloride sodium chloride sodium chloride 0.9 % Imaging: X-ray chest 1 view CLINICAL HISTORY: Postextubation Comparison: 03/12/2025 Views: 1 view FINDINGS: * NG tube courses below GE junction. Double-lumen catheter overlies SVC. Lower lobe atelectasis andsmall effusions. No pneumothorax. Subcutaneous gas slightly decreased overlying left chest as compared to previous exam. IMPRESSION: * No significant change Finalized by Jb Cifuentes MD on 03/13/2025 7:02 AM Assessment: Caren Suarez is a 70 y.o. 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 Patient's surgery was complicated by obstructive shock and cardiac collapse resulting in need for ACLS. ROSC was obtained and patient was transferred to [facility] postoperatively. Patient subsequently went for 2nd loop laparotomy, fascial closure, ileostomy creation on 03/09/2025. 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 2.2 cm right interpolar renal mass concerning for RCC Right-sided PE without heart strain Left pneumothorax, resolved, chest tube out Multiple DVT Pulmonary nodules likely metastasis Obstructive shock from PE now off vasopressors Status post cardiac arrest intraoperatively Acute blood loss anemia, Hgb up to 11 coagulopathy, improving Thrombocytopenia, stable Metabolic acidosis Acute respiratory failure requiring mechanical ventilation, now extubated VRE UTI, no abx indicated for now per ID Peritonitis diagnosed on paracentesis 02/28/25, with complete treatment, now on empiric antibiotics Plan: Continue appetite stimulant, no objection to marinol Ok to resume Eliquis per vascular medicine recommendations Vascular medicine recommended Eliquis once closer to discharge date 5 mg b.i.d. without induction dose, they signed off Appreciate Infectious Disease recommendations - antibiotics were completed and they are monitoring her off antibiotics Incentive spirometry 10 x per hour Wound care, wound vac per ET Appreciate nephrology recommendations - hold D5, albumin infusion, hold lasix Appreciate oncology recommendations Appreciate palliative medicine assistance with goals of care in regards to her cancer - patient chose DNR CCA but okay with intubation and was encouraged to complete POA paperwork and living will Urology was consulted for urinary retention - pending Monitor and record ins/outs Rest of care per primary and consulting teams There is no need for acute surgical intervention at this time. She is doing well from a colorectal surgery standpoint. The colorectal surgery service will sign off at this time. She will follow-up outpatient. London Merino MD PGY-1 General Surgery 03/18/25 Colorectal Surgery 6a - 6p Pager: [phone] 6p - 6a Pager: [phone] Cosigned by Reyna Brewer MD at 03/19/2025 1:29 PM EDT Associated attestation - Reyna Brewer MD - 03/19/2025 1:29 PM EDT Attending Attestation: I saw the patient. I performed the critical/fuentes portions of the service. I was directly involved inthe management and treatment plan of the patient. I reviewed the resident's note. Additional Notes/Findings: Patient is tolerating diet and having stoma output. She is off nasal cannula oxygen and improving daily. Colorectal surgery to sign off. * JHONATAN Moran - 03/17/2025 5:08 PM EDT NUTRITION ADULT FOLLOW UP NUTRITION ASSESSMENT: Patient History: Brief Clinical Summary: Patient presented with abnormal CT AP and cold-like symptoms/difficulty breathing. Admitted for treatment. PMHx includes DVT. Biochemical Data, Medical Tests, and Procedures: 02/24 CT AP: ovarian lesion, renal lesion, pulmonary lesions - likely mets 02/28 IR paracentesis (-1850mL removed) 02/28 US pelvis: 18.2 cm cystic and solid lesion in the pelvis with ascites and peritoneal nodularity 02/28- IR paracentesis for ascites fluid, 1800 mL fluid removed. 03/06 CTA- Colonic dilatation with transition at the sigmoid junction. Concern for obstruction from the known large rectal mass vs multicentric colorectal carcinoma. 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 03/07 OR: ex lap, total colectomy, salpingo-oophorectomy. Intubated. 03/09 XRA: enteric tube extends to the left mid abdomen 03/09 OR: ex lap, ileostomy creation, small bowel resection, wound closure abdomen, wound vac application 03/12 extubated Labs: Results from last 3 days Lab Units 03/17/25 1556 03/17/25 0327 03/16/25 1957 03/15/25 1356 03/15/25 0910 SODIUM mmol/L 139 137 137 < > 144 POTASSIUM mmol/L 4.3 4.3 4.3 < > 3.9 CHLORIDE mmol/L 106 106 107 < > 111* CO2 mmol/L 26 25 23 < > 27 BUN mg/dL 7 9 10 < > 13 CREATININE mg/dL 0.43 0.37* 0.45 < > 0.43 CALCIUM mg/dL 8.3* 8.3* 7.9* < > 7.2* ALBUMIN g/dL -- -- -- -- 2.0* ALK PHOS U/L -- -- -- -- 235* ALT U/L -- -- -- -- 16 AST U/L -- -- -- -- 22 < > = values in this interval not displayed. Results from last 7 days Lab Units 03/17/25 1556 03/17/25 1555 03/17/25 1057 03/17/25 0538 03/17/25 03203/17/25 0320 03/16/25 2328 BEDSIDE GLUCOSE mg/dL -- 88 77 73 -- 73 114* GLUCOSE mg/dL 81 -- -- -- 63* -- -- Results from last 3 days Lab Units 03/17/2532603/16/25 0904 03/16/25 0304 WBC x10E9/L 9.0 10.7 9.1 HEMOGLOBIN g/dL 9.8* 11.1* 9.5* HEMATOCRIT % 30.5* 34.7* 29.8* PLATELETS X10E9/L 192 209 169 MCV fL 83 82 83 Results from last 3 days Lab Units 03/17/25 1556 03/17/25 0327 03/16/25 0858 MAGNESIUM mg/dL 2.1 1.9 2.2 Results from last 3 days Lab Units 03/17/25 03203/16/25 19503/16/25 0904 03/16/25 0858 03/16/25 0304 PHOSPHORUS mg/dL 2.8 -- -- 3.4 2.5 CALCIUM, IONIZED mg/dL 4.6 4.2* 4.4* -- 4.5 Results from last 3 days Lab Units 03/15/25 0910 BILIRUBIN, DIRECT mg/dL 0.3 BILIRUBIN, TOTAL mg/dL 0.6 No results found for: HGBA1C Lab Results Component Value Date IRON 12 (L) 02/26/2025 TIBC 321 02/26/2025 FERRITIN 78 02/26/2025 Lab Results Component Value Date IRONSAT 4 (L) 02/26/2025 No results found for: CHOL No results found for: CHDL No results found for: HDL No results found for: LDLCALC No results found for: TRIG No results found for: VERYLOWLIP Lab Results Component Value Date KEVTRFKL23 110 (L) 02/26/2025 Lab Results Component Value Date FOLATE 3.3 (L) 02/26/2025 Lab Results Component Value Date VITD25 <7.0 (L) 03/15/2025 Comments (labs): labs reviewed Medications/ Parenteral: Folic acid, protonix, D5 @ 40 ml/hr Current Facility-Administered Medications Medication Dose Route Frequency Provider Last Rate Last Admin acetaminophen (TYLENOL) tablet 650 mg 650 mg oral Q6H Venita Chan MD 650 mg at 03/17/25 1325 calcium gluconate IVPB 1000 mg/50 mL (20 mg/mL premix) 1,000 mg intravenous PRN Дмитрий Lara MD Stopped at 03/16/25 2252 Or calcium gluconate IVPB 2000 mg/100 mL (20 mg/mL premix) 2,000 mg intravenous PRN Дмитрий Lara MD Or calcium gluconate 3,000 mg in sodium chloride 0.9 % 100 mL IVPB 3,000 mg intravenous PRN Дмитрий Lara MD dextrose (GLUTOSE) 40 % gel 15 g 15 g oral PRN OK Albright dextrose 5 % (D5W) infusion 100 mL/hr intravenous Continuous PRN OK Albright dextrose 5 % and sodium chloride 0.45 % infusion 40 mL/hr intravenous Continuous Brenda Hayes MD 40 mL/hr at 03/17/25 1705 40 mL/hr at 03/17/25 1705 dextrose 50 % in water (D50W) 50% solution 25 mL 25 mL intravenous PRN OK Albright diphenoxylate-atropine (LOMOTIL) 2.5-0.025 mg per tablet 2 tablet 2 tablet oral 4x Daily Ashok Hwang DO 2 tablet at 03/17/25 1701 droNABinol (MARINOL) capsule 2.5 mg 2.5 mg oral BID AC Ashok Corbettminaga, DO folic acid (FOLVITE) tablet 1 mg 1 mg nasogastric Daily OK Dang 1 mg at 807 glucagon HCL injection 1 mg 1 mg intramuscular PRN OK Albright heparin (porcine) injection 2,000 Units 2,000 Units intravenous PRN Orion Damico MD heparin infusion 88308 units/500 mL in 0.45% NaCl (50 units/mL premix) 300-3,500 Units/hr intravenous Continuous Orion Damico MD 21 mL/hr at 03/17/25 1055 1,050 Units/hr at 03/17/25 1055 hydrALAZINE (APRESOLINE) injection 10 mg 10 mg intravenous Q6H PRN Eleni Harding, STUDENT TRUCK DRIVER-ASSISTANT DIRECTOR OF RESIDENCE LIFE 10 mg at 03/15/25 1211 insulin lispro (HumaLOG) injection 2-10 Units 2-10 Units subcutaneous Q6H Дмитрий Lara MD 2 Units at 03/14/25 0945 lidocaine (SALONPAS) 4 % 1 patch 1 patch transdermal Daily Venita Chan MD 1 patch at 03/17/25 0809 magnesium sulfate IVPB 2000 mg/50 mL in iso-osmotic water (40 mg/mL premix) 2,000 mg intravenous PRN Дмитрий Lara MD Stopped at 03/17/25 0704 Or magnesium sulfate IVPB 4000 mg/100 mL in iso-osmotic water (40 mg/mL premix) 4,000 mg intravenous PRN Дмитрий Lara MD methocarbamoL (ROBAXIN) tablet 500 mg 500 mg oral Q6H PRN Venita Chan MD ondansetron (PF) (ZOFRAN) injection 4 mg 4 mg intravenous PRN Venita Chan MD Or ondansetron ODT (ZOFRAN ODT) disintegrating tablet 8 mg 8 mg oral PRN Venita Chan MD oxyCODONE (ROXICODONE) immediate release tablet 2.5 mg 2.5 mg oral Q4H PRN Venita Chan MD 2.5 mg at 03/17/25 0937 Or oxyCODONE (ROXICODONE) immediate release tablet 5 mg 5 mg oral Q4H PRN Venita Chan MD pantoprazole (PROTONIX) EC tablet 40 mg 40 mg oral QAM AC Venita Chan MD 40 mg at 03/16/25 0703 Or pantoprazole (PROTONIX) injection 40 mg 40 mg intravenous QAM AC Venita Chan MD 40 mg at 03/17/25 0807 potassium chloride (K-TAB,KLOR-CON) CR tablet 20-50 mEq 20-50 mEq oral PRN Дмитрий Lara MD 30 mEq at 03/15/25 1531 Or potassium chloride (KAYCIEL) 20 mEq/15 mL solution 20-50 mEq 20-50 mEq oral PRN Дмитрий Lara MD 30mEq at 03/16/25 0411 potassium chloride IVPB 10 mEq/50 mL in water (0.2 mEq/mL premix) 10 mEq intravenous PRN Дмитрий Lara MD Stopped at 03/12/25 1226 Or potassium chloride IVPB 10 mEq/100 mL in water (0.1 mEq/mL premix) 10 mEq intravenous PRN Дмитрий Lara MD sodium phosphate 20 mmol in sodium chloride 0.9 % 250 mL IVPB 20 mmol intravenous PRN Дмитрий Lara MD Stopped at 03/16/25 0750 Or sodium phosphate 20 mmol in sodium chloride 0.9 % 100 mL IVPB 20 mmol intravenous PRN Дмитрий Lara MD Stopped at 03/15/25 0921 Or sod phos di, mono-K phos mono (K-PHOS NEUTRAL) 250 mg tablet 2 tablet 2 tablet oral PRN Дмитрий Lara MD 2 tablet at 03/15/25 1529 sodium chloride 0.9 % flush 10 mL 10 mL intravenous PRN Deena Branch MD 10 mL at 02/25/25 1857 sodium chloride 0.9 % flush 10 mL 10 mL intravenous PRN Ghassan Castillo MD 10 mL at 03/08/25 0804 sodium chloride 0.9 % infusion 20 mL/hr intravenous Continuous PRN Neelima Ta APRN-ASSISTANT DIRECTOR OF RESIDENCE LIFE 50 mL/hr at 03/11/25 0523 50 mL/hr at 03/11/25 0523 sodium chloride 0.9 % infusion 3 mL/hr intra-arterial Continuous Fernanda Soliman MD 3 mL/hr at 03/16/25 1841 3 mL/hr at 03/16/25 1841 Nutrition Focused Physical Findings +ileostomy, wound vac. Last BM 03/04. +2 edema noted. C/o weakness, fatigue. Skin (per nursing flow sheets): Skin Color: Pale; [place] (03/17/25 1200) Skin Temp: Warm (03/17/25 1200) Wound (per nursing flow sheets): Wound 03/07/25 Incision Abdomen N/A-Site Assessment: Unable to assess (03/17/25 1200) Gastrointestinal (per nursing flow sheets): Abdomen Assessment: Stoma; Soft; Nondistended (03/17/25 1200) Last BM Date: 03/04/25 (03/17/25 1200) Passing Flatus: No (03/17/25 1200) RUQ Bowel Sounds: Hypoactive (03/17/25 1200) LUQ Bowel Sounds: Hypoactive (03/17/25 1200) RLQ Bowel Sounds: Hypoactive (03/17/25 1200) LLQ Bowel Sounds: Hypoactive (03/17/25 1200) GI Symptoms: Nausea (03/16/25 0400) Nausea Precipitating Factors: Movement (03/16/25 0400) Relieved by: Antiemetic (03/15/25 0608) Edema (per nursing flow sheets): RUE Edema: +2 (03/17/25 1200) LUE Edema: +2 (03/17/25 1200) RLE Edema: +2 (03/17/25 1200) LLE Edema: +2 (03/17/25 1200) Intake/ Output Last 24 hrs: Intake/Output Summary (Last 24 hours) at 03/17/2025 1709 Last data filed at 03/17/2025 1234 Gross per 24 hour Intake 2768.15 ml Output 1790 ml Net 978.15 ml Food/Nutrition Related History: Diet/ Nutrition Order Review: Dietary Orders (From admission, onward) Start Ordered 03/17/25 1156 Adult diet Regular Texture; Low Fiber (gastric soft) Diet effective now Question Answer Comment Diet Type: Regular Texture Other Modifiers: Low Fiber (gastric soft) 03/17/25 1155 03/17/25 1156 Adult nutrition supplements Continuous Question Answer Comment Diet Type or Consistency: Regular Texture Select Supplement: Thick Frozen Dessert Supplement Frequency: BID 03/17/25 1156 TPN: (Show up to 1 orders; newest on the left.) None Diet Intakes: NPO/CLD (since 03/03-) patient on regular diet today (03/17), no po intake recorded. Inpatient Nutrition Support History: 03/11 RD spoke extensively with London Merino MD with [facility] regarding TPN initiation. reported there may be contraindications to initiating TPN with stage [address] stated in the scenario, due to patient being NPO x 8 days, the benefits outweigh the risks. Dr. Merino stated he is aware and will monitor and evaluate the need . 03/11 trickle tube feeds started 03/12 per MD tf stopped due to extubation 03/14 TF's stopped TF: Osmolite 1.5 at 45 ml/hr to provide 1620 Kcal daily 68 gm protein daily 823 mL Free H2O daily 100% RDI Anthropometrics: Ht Readings from Last 1 Encounters: 02/25/25 157.5 cm (5' 2.01 ) Last 3 Weight Readings 03/15/25 0500 03/16/25 0435 03/17/25 0500 Weight: 84.7 kg (186 lb 11.7 oz) 85.5 kg (188 lb 7.9 oz) 84.3 kg (185 lb 13.6 oz) Current Weight: 84.3kg (unknown, 03/17) Admit Weight: 74.8 kg (Standing Scale, 02/26) [place] Body Weight: 50 kg Weight Changes: Variable weight this admission, (varying scales used); fluid likely masking any weight loss Current Body Mass Index: Body mass index is 33.98 kg/m??. Comparative Standards: Estimated Energy Needs: 1500-1750kcals daily. Method and weight used: 25-32 kcal/kg IBW Estimated Protein Needs: 75-125grams daily. Method and weight used: 1.5-2.5g protein/kg IBW Estimated Fluid Needs: 1500-1750ml daily. Method weight used: 1 ml/kcal Comments: updated to wound healing needs 03/13 Malnutrition Status: Malnutrition Present: At risk due to NPO x 10 days NUTRITION DIAGNOSIS: Intake Diagnosis: Inadequate oral intake (NI 2.1) Ongoing NUTRITION INTERVENTIONS: Meals and snacks: Enoucrage adequate oral intake daily Supplements: Continue Magic Cup BID. Will also order Ensure Plus BID to provide 350 kcals and 20g protein per serving. RECOMMENDATIONS: Please record pt's daily percent meal intake in RN flowsheet to allow for ongoing nutrition assessment GOAL(S): Meet estimated calorie and protein needs. NUTRITION MONITORING AND EVALUATION: PO intake, supplement intake, weights, labs, POC Alondra Anderson RD, LD Clinical Dietitian [facility] [phone] * Brenda Hayes MD - 03/17/2025 12:09 PM EDT Images from the original note were not included. [facility] Artur Small, DUYEN Nephrology Consultation Note Patient Name: Caren Suarez : 1955 Date of Service: 03/17/25 PCP: Riya Diego MD Attending Physician: Ghassan Castillo MD Admission Date: 02/25/2025 Length of stay: LOS: 20 days Chief complaint. Hypernatremia and TASHA Reason for Consult: Acute Kidney Injury Assessment and Plan. 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 She reports having a hard time breathing and a cough that went away ( she has had a hard time breathing and had a cough but it went away ). She had been treated by her PCP with steroids and antibiotics without improvement. An outpatient CT abdomen/pelvis on 02/24/2025 revealed a large right adnexal mass, a solid right renal lesion, and likely metastases to the lungs and abdomen. Venous duplex showed bilateral DVTs. She was transferred from [place] to [facility] for further evaluation and management. In the emergency department, she was started on a heparin drip. Workup upon admission included a CTA chest on 02/25/2025, which confirmed moderate right-sided pulmonary emboli without right heart strain. She is currently being treated for a urinary tract infection and bacterial peritonitis with IV Rocephin and Flagyl, with Infectious Disease on board. Nephrology consultation was requested for acute kidney injury. Assessment Acute Kidney Injury, likely multifactorial with hemodynamic and prerenal components, with concern for acute tubular necrosis (ATN). The TASHA is in the setting of sepsis, treatment for bacterial peritonitis, and obs uropathy , There was contrast exposure on 02/24/2025. Cr has improved. Right hydronephrosis, 2.2 cm right renal mass lesion Urology evaluated the patient Mild hypernatremia on initial evaluation. Hypophosphatemia. Metabolic acidosis on initial evaluation. Volume Status: Euvolemic , possibly on low side Hypertension: Stable, though has been on the higher side. Hemodynamics: Echocardiogram on 02/26/2025 showed a normal LVEF of 60-65% with Grade I diastolic dysfunction and no evidence of right heart strain. Anemia Most recent hemoglobin is 10.8 g/dL. Sepsis secondary to bacterial peritonitis and UTI. 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 ? Rectal ca Acute pulmonary embolism and bilateral DVT. Malignant Bowel obstruction , patient is status post exploratory laparotomy, total colectomy, left in discontinuity, and BSO on 03/07/2025 , repeat Second Look laparotomy and ileostomy creation on 03/09/2025 Cardiac arrest intraoperatively, 03/07/2025 needing ACLS. Ventilator dependent respiratory failure postoperatively Plan Decrease D5 half-normal saline to 40 mL/hour, we will give 1 dose of Lasix. Plan discussed with surgery Continue Lasix p.r.n. for volume management Strict ins and outs / accurate documentation of urine out put / daily weights and Bladder scan Q12 Avoid nephrotoxins, avoid contrast exposure unless absolutely necessary, avoid hemodynamic instability Dose all medications to GFR Monitor Renal Chem panel daily in AM Thank you for this consultation, we will follow along with you regarding care of this patient whilethe patient is here in the hospital, please call if you have any questions or concerns. BRENDA HAYES MD on 03/17/2025 at 12:09 PM [facility] [email or web address] - is now [employer] Schedule : See Epic on-call schedule for [facility] ( [facility] ) Nephrology Working Hours : Epic chat during working hours, if no response please use on- call physician reach out as below After Hours : Answering service contact : [phone] Office Phone number: [phone] Subjective Patient seen at bedside, she is sitting in chair, no acute distress still has lower extremity edema. I/O (24 Hours) Intake/Output Summary (Last 24 hours) at 03/17/2025 1555 Last data filed at 03/17/2025 1234 Gross per 24 hour Intake 2768.15 ml Output 1790 ml Net 978.15 ml Past Medical History: Diagnosis Date Deep vein thrombosis (CMS-HCC) Past Surgical History: Procedure Laterality Date APPLICATION WOUND VAC MIDSECTION N/A 03/09/2025 Performed by Ghassan Castillo MD at [facility] CLOSURE WOUND ABDOMEN N/A 03/09/2025 Performed by Ghassan Castillo MD at [facility] ILEOSTOMY CREATION N/A 03/09/2025 Performed by Ghassan Castillo MD at [facility] LAPAROTOMY EXPLORATORY N/A 03/09/2025 Performed by Ghassan Castillo MD at [facility] LAPAROTOMY EXPLORATORY N/A 03/07/2025 Performed by Ghassan Castillo MD at [facility] RESECTION BOWEL SMALL N/A 03/09/2025 Performed by Ghassan Castillo MD at [facility] SALPINGO-OOPHORECTOMY Bilateral 03/07/2025 Performed by Faith Celis MD at [facility] TOTAL COLECTOMY N/A 03/07/2025 Performed by Ghassan Castillo MD at [facility] Family History Problem Relation Age of Onset Breast cancer Neg Hx Social History Socioeconomic History Marital status: Single Spouse name: Not on file Number of children: Not on file Years of education: Not on file Highest education level: Not on file Occupational History Not on file Tobacco Use Smoking status: Former Types: Cigarettes Smokeless tobacco: Never Substance and Sexual Activity Alcohol use: Never Drug use: Never Sexual activity: Not on file Other Topics Concern Not on file Social History Narrative Not on file Social Drivers of Health Financial Resource Strain: Not on file Food Insecurity: No Food Insecurity (02/25/2025) Hunger Screening Food Insecurity - Worry: Never True Food Insecurity - Inability: Never True Transportation Needs: No Transportation Needs (02/25/2025) PRAPARE - Transportation Lack of Transportation (Medical): No Lack of Transportation (Non-Medical): No Physical Activity: Not on file Stress: Not on file Social Connections: Not on file Interpersonal Safety: Not At Risk (02/25/2025) Humiliation, Afraid, Rape, and Kick questionnaire Fear of Current or Ex-Partner: No Emotionally Abused: No Physically Abused: No Sexually Abused: No Housing Instability: Low Risk (02/25/2025) Housing Instability Housing Instability: No Prior to Admission medications Medication Sig Start Date End Date Taking? Authorizing Provider apixaban (ELIQUIS) 5 mg tablet Take 2 tablets (10 mg total) by mouth 2 (two) times a day for 7 days, THEN 1 tablet (5 mg total) 2 (two) times a day for 30 days. 03/05/25 04/11/25 Eleni Harding APRN-ASSISTANT DIRECTOR OF RESIDENCE LIFE Allergies Allergen Reactions Penicillin ROS: Constitutional: No fever, chills, lethargy, weakness and wt loss. Cardiac: No chest pain, dyspnea, orthopnea or PND. Chest: No cough, phlegm or wheezing. Abdomen: No nausea, no vomiting or diarrhea. : No hematuria, pyuria, dysuria or flank pain. Extremities: No swelling or joint pains. Physical Exam: VITALS BP 152/55 Pulse 92 Temp 36.3 ??C (97.3 ??F) (Oral) Resp (!) 27 Ht 157.5 cm (5' 2.01 ) Wt 84.3 kg (185 lb 13.6 oz) SpO2 100% BMI 33.98 kg/m?? Wt Readings from Last 3 Encounters: 03/17/25 84.3 kg (185 lb 13.6 oz) 02/24/25 74.4 kg (164 lb) BMI: Body mass index is 33.98 kg/m??. I/O (24 Hours) Intake/Output Summary (Last 24 hours) at 03/17/2025 1209 Last data filed at 03/17/2025 1009 Gross per 24 hour Intake 2636.92 ml Output 1890 ml Net 746.92 ml General: Awake, alert, no acute distress HEENT: Atraumatic, normocephalic. Anicteric sclera. [place] and moist oral mucosa. Neck No JVD. Chest: Bilateral air entry, clear to auscultation, no wheezing, rhonchi or rales. Cardiovascular: RRR, S1S2, no murmur, rub or gallop. No lower extremity edema. Abdomen: Soft, status post surgery, ileostomy in place Musculoskeletal: No cyanosis or clubbing. Integumentary: [place], warm and dry. Free from rash or lesions. CARBIDE GRINDER: Examination grossly nonfocal Medications Scheduled Meds: acetaminophen, 650 mg, oral, Q6H diphenoxylate-atropine, 2 tablet, oral, 4x Daily folic acid, 1 mg, nasogastric, Daily insulin lispro, 2-10 Units, subcutaneous, Q6H lidocaine, 1 patch, transdermal, Daily megestroL, 60 mg, oral, 4x Daily pantoprazole, 40 mg, oral, QAM AC OR pantoprazole, 40 mg, intravenous, QAM AC Continuous Infusions: dextrose 5 % in water, 100 mL/hr D5 % and 0.45 % sodium chloride, 50 mL/hr, Last Rate: 50 mL/hr (03/17/25 1106) heparin, 300-3,500 Units/hr, Last Rate: 1,050 Units/hr (03/17/25 1055) sodium chloride 0.9 %, 20 mL/hr, Last Rate: 50 mL/hr (03/11/25 0523) sodium chloride 0.9 %, 3 mL/hr, Last Rate: 3 mL/hr (03/16/25 1841) PRN Meds: calcium gluconate OR calcium gluconate OR calcium gluconate dextrose dextrose 5 % in water dextrose 50 % in water (D50W) glucagon (human recombinant) heparin (porcine) hydrALAZINE magnesium sulfate OR magnesium sulfate methocarbamoL ondansetron OR ondansetron ODT oxyCODONE OR oxyCODONE potassium chloride OR potassium chloride potassium chloride in water OR potassium chloride in water sodium phosphate IV OR sodium phosphate IV - central line OR sod phos di, mono-K phos mono sodium chloride sodium chloride sodium chloride 0.9 % Results Review Renal Chemistry Results from last 7 days Lab Units 03/17/25 0327 03/16/25 1957 03/16/25 0904 03/16/25 0858 03/16/25 0304 03/15/25 2231 03/15/25 1356 03/15/25 0910 03/15/25 0246 03/14/25 1430 03/14/25 0234 SODIUM mmol/L 137 137 139 -- 141 140 142 < > 145 < > 148* POTASSIUM mmol/L 4.3 4.3 4.7 -- 3.8 3.9 3.4* < > 4.1 < > 3.6 CHLORIDE mmol/L 106 107 106 -- 107 108 109 < > 109 < > 108 CO2 mmol/L 25 23 26 -- 26 26 29 < > 28 < > 35* BUN mg/dL 9 10 12 -- 13 13 13 < > 13 < > 13 CREATININE mg/dL 0.37* 0.45 0.42 -- 0.37* 0.39* 0.44 < > 0.45 < > 0.46 CALCIUM mg/dL 8.3* 7.9* 7.5* -- 7.5* 7.3* 7.3* < > 7.7* < > 7.5* MAGNESIUM mg/dL 1.9 -- -- 2.2 1.8 -- -- -- 2.0 -- 2.1 PHOSPHORUS mg/dL 2.8 -- -- 3.4 2.5 2.3* 1.9* -- 2.0* < > 1.8* < > = values in this interval not displayed. Hepatic: Lab Results Component Value Date AST 22 03/15/2025 AST 33 03/09/2025 AST 108 (H) 03/08/2025 ALT 16 03/15/2025 ALT 23 03/09/2025 ALT 33 (H) 03/08/2025 ALKPHOS 235 (H) 03/15/2025 ALKPHOS 38 (L) 03/09/2025 ALKPHOS 37 (L) 03/08/2025 BNP Lab Results Component Value Date BNP 22 03/08/2025 BNP 34 03/06/2025 BNP 61 02/24/2025 CBC Results from last 7 days Lab Units 03/17/25 0327 03/16/25 0904 03/16/25 0304 03/15/25 0246 03/14/25 0234 WBC x10E9/L 9.0 10.7 9.1 9.6 6.4 HEMOGLOBIN g/dL 9.8* 11.1* 9.5* 11.6* 11.0* HEMATOCRIT % 30.5* 34.7* 29.8* 36.5 34.3* PLATELETS X10E9/L 192 209 169 185 147* Results from last 7 days Lab Units 03/17/25 1057 03/17/25 0538 03/17/25 0327 03/17/25 0320 03/16/25 2328 BEDSIDE GLUCOSE mg/dL 77 73 -- 73 114* GLUCOSE mg/dL -- -- 63* -- -- Urine Studies: Lab Results Component Value Date COLOR Yellow 03/06/2025 TURBIDITY Hazy (A) 03/06/2025 SPECIFICGRA 1.023 03/06/2025 NITRITE Negative 03/06/2025 PHURINE 6.0 03/06/2025 LEUKOCYTE Small (A) 03/06/2025 PROTEIN 50 mg/dL (A) 03/06/2025 KETONES 20 mg/dL (A) 03/06/2025 UROBILINOGEN <1.1 eu/dL 03/06/2025 BLOODHGB Large (A) 03/06/2025 Lab Results Component Value Date UPROCRTRAT 0.25 (H) 03/06/2025 Urine Sodium: No components found for: CRYSTAL Urine Potassium: No results found for: KUR Urine Chloride: No results found for: CLUR Urine Osmolarity: No components found for: OSMOU Urine Creatinine: No results found for: LABCREA Urine Eosinophils: No components found for: UEOS Urine Protein: No components found for: TPU Immunology Profile No results found for: PROTELECTR , SEDRATE , CRP , RF , ANASCREEN , ANTIDSDNA , C3 , C4 , ANCA , MYELOP , PROTEINASE3 , ANTIGLOMERU No results found for: HAV , HEPAIGM , HEPBIGM , HEPBCAB , HBEAG , HEPCAB SP: No results found for: SP C3:No results found for: C3 C4:No results found for: C4 MPO ANCA: No results found for: MPO PR3 ANCA: No components found for: PR3 hepatitis serologies ANTIGBM:No components found for: GBMABIGG HEPATITIS B SURFACE AG: No results found for: HEPBSAG HEPATITIS C AB: No results found for: HEPCAB Electrophoresis: SPEP:No results found for: PROT , LABALPH , LABBETA , PATH UPEP:No results found for: LABPE Anemia Profile Lab Results Component Value Date WBC 9.0 03/17/2025 WBC 10.7 2025 HGB 9.8 (L) 03/17/2025 HGB 11.1 (L) 2025 HCT 30.5 (L) 03/17/2025 HCT 34.7 (L) 2025 PLT 192 03/17/2025 PLT 209 2025 Lab Results Component Value Date IRON 12 (L) 02/26/2025 TIBC 321 02/26/2025 FERRITIN 78 02/26/2025 Bone Mineral Profile Lab Results Component Value Date CALCIUM 8.3 (L) 03/17/2025 Results from last 7 days Lab Units 03/17/25 0327 03/16/25 0858 03/16/25 0304 MAGNESIUM mg/dL 1.9 2.2 1.8 Echocardiogram: Echo complete W/O contrast Result Date: 02/26/2025 Left Ventricle: Left ventricle is small. Systolic function is normal with an ejection fraction of 60-65%. No segmental wall motion abnormalities. Grade I diastolic dysfunction (impaired relaxation) is present. Lateral E' is 11.70 cm/s. Medial E' is 7.94 cm/s. Right Ventricle: Right ventricular sizeappears normal. The right ventricular basal diameter is 22.0 mm. Systolic function is normal. Aortic Valve: There is trace to mild regurgitation. There is no evidence of aortic valve stenosis. Thank you for the consultation. Please do not hesitate to contact us for any further questions/concerns. We will continue to follow along with you. * Nuvia Flannery, STUDENT TRUCK DRIVER-ASSISTANT DIRECTOR OF [employer] - 03/17/2025 10:36 AM EDT Images from the original note were not included. Division of Infectious Diseases Progress note Academic Team Please contact us via Cupple chat. 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 Urine culture +enterococcus. Patient was asymptomatic No fever or leukocytosis. Low suspicion for uti at this time Monitor off treatment TASHA Renal mass concerning for RCC Right hydronephrosis Positive urine culture Urine culture +VRE. No urinary symptoms when culture obtained. No systemic signs of infection at this time. No indication for treatment. Urology and nephrology following Acute PE, with R heart strain Multiple DVT On heparin Subjective Interval History: Patient seen and examined at bedside. Awakens and alert. Denies abdominal pain. No fever, chills orsweats. No shortness of breath or cough. No nausea, vomiting. Vac changed today Objective Physical Examination : BP 160/60 Pulse 89 Temp 36.3 ??C (97.3 ??F) (Oral) Resp 22 Ht 157.5 cm (5' 2.01 ) Wt 84.3kg (185 lb 13.6 oz) SpO2 100% BMI 33.98 kg/m?? Temperature Range: Temp: 36.3 ??C (97.3 ??F) Temp Av.6 ??C (97.9 ??F) Min: 36.3 ??C (97.3 ??F)Max: 36.8 ??C (98.3 ??F) General Appearance:lethargic and in no apparent distress Eyes: Sclera anicteric; conjunctivae pink Neck: Supple, without lymphadenopathy. Pulmonary/Chest: Clear to auscultation, without wheezes, rales, or rhonchi. Left sided chest tube in place Cardiovascular: Regular rate and rhythm without murmurs, rubs, or gallops. Abdomen: distended. Soft. Vac in place Extremities: No cyanosis, clubbing, , or effusions. +BLE edema Neurologic: Bulk and tone are normal. No atrophy is noted. Skin: No rash or lesions. Laboratory data: I have independently reviewed the following labs: Results from last 7 days Lab Units 03/17/2532603/16/25 0903/16/25 0304 WBC x10E9/L 9.0 10.7 9.1 HEMOGLOBIN g/dL 9.8* 11.1* 9.5* HEMATOCRIT % 30.5* 34.7* 29.8* MCV fL 83 82 83 PLATELETS X10E9/L 192 209 169 Results from last 7 days Lab Units 03/17/25 03203/16/25 1957 03/16/25 0903/15/25 1356 03/15/25 0910 SODIUM mmol/L 137 137 139 < > 144 POTASSIUM mmol/L 4.3 4.3 4.7 < > 3.9 CHLORIDE mmol/L 106 107 106 < > 111* CO2 mmol/L 25 23 26 < > 27 BUN mg/dL 9 10 12 < > 13 CREATININE mg/dL 0.37* 0.45 0.42 < > 0.43 CALCIUM mg/dL 8.3* 7.9* 7.5* < > 7.2* ALBUMIN g/dL -- -- -- -- 2.0* ALK PHOS U/L -- -- -- -- 235* ALT U/L -- -- -- -- 16 AST U/L -- -- -- -- 22 < > = values in this interval not displayed. Invalid input(s): BILIRUBINU , BILIRUBINNU Echo complete W/O contrast Result Date: 02/26/2025 Left Ventricle: Left ventricle is small. Systolic function is normal with an ejection fraction of 60-65%. No segmental wall motion abnormalities. Grade I diastolic dysfunction (impaired relaxation) is present. Lateral E' is 11.70 cm/s. Medial E' is 7.94 cm/s. Right Ventricle: Right ventricular sizeappears normal. The right ventricular basal diameter is 22.0 mm. Systolic function is normal. Aortic Valve: There is trace to mild regurgitation. There is no evidence of aortic valve stenosis. Imaging Studies: Procedure Component Value Units Date/Time X-ray chest 1 view [[id number]] Collected: 03/12/25440 Order Status: Completed Updated: 03/12/25444 Narrative: Clinical history: Intubated. Comparisons: 03/09/2025 through 03/11/2025. Findings: AP portable supine chest radiograph obtained. Endotracheal tube terminates 5 cm above thelevel of the venecia. Left-sided chest tube unchanged with sidehole likely just outside of the levelof the pleural space similar to previous 3 exams. There is no pneumothorax. There is bibasilar subsegmental atelectasis. Right IJ central venous catheter/sheath unchanged and confluence of innominate veins. PH probe terminates in distal esophagus. Nasogastric tube terminates off film in left upper abdomen. Pleural effusion. Continued decrease in volume of left lateral chest wall subcutaneous emphysema. IMPRESSION: 1. No pneumothorax. 2. Satisfactory ET tube position. Finalized by Arsalan Lott MD on 03/12/2025 4:44 AM I have personally reviewed this study. Cultures: Microbiology Results No results found for the last 168 hours. Medications: acetaminophen, 650 mg, oral, Q6H diphenoxylate-atropine, 2 tablet, oral, 4x Daily folic acid, 1 mg, nasogastric, Daily insulin lispro, 2-10 Units, subcutaneous, Q6H lidocaine, 1 patch, transdermal, Daily megestroL, 60 mg, oral, 4x Daily pantoprazole, 40 mg, oral, QAM AC OR pantoprazole, 40 mg, intravenous, QAM AC Thank you for allowing us to participate in the care of this patient. Please call with questions. - ELLIOTT RENDON 03/17/25 10:36 AM ELLIOTT Rendon 03/17/25 1206 * ELLIOTT Christina - 03/17/2025 9:28 AM EDT Images from the original note were not included. [facility] Hematology and Oncology - Daily Progress Note 03/17/2025, 9:29 AM Impression/Plan: Metastatic Colorectal Cancer -Initially favoring ovarian primary given clinical pattern, but now with pathology positive for colorectal primary -Initial CT a/p showed large partially solid and partially cystic lesion in the right adnexa measuring 16 cm x 12 cm x 11 cm + lower anterior abdominal soft tissue nodules + 2.5 cm solid R renal lesion + diffuse intraperitoneal fluid -CTA chest revealed numerous pulmonary nodules -CA-653=[id number], VS3=321, CEA=24.6, CA 19-9 WNL -TVUS noted an 18.2 cm cystic and solid lesion in the pelvis with ascites and peritoneal nodularity -S/p IR performed paracentesis and biopsy of soft tissue nodules 02/28 -Ascites fluid non-diagnostic -Abdominal soft tissue biopsy pathology positive for mucinous adenocarcinoma consistent with colorectal origin -Will need to recover from surgery before we can safely and effectively offer her systemic cancer treatments -Palliative medicine following for assistance with pain and GOC discussions -She will follow up with Dr. Romero after discharge for further management Malignant Bowel Obstruction, Abdominal Pain/Distention -Repeat CT a/p 03/06 shows Colonic dilatation with transition at the sigmoid junction. Concern for obstruction from the known large rectal mass vs multicentric colorectal carcinoma + Similar appearanceof a 20 cm cystic pelvic lesion, recently characterized as rectal adenocarcinoma + Peritoneal carcin omatosis -Now s/p exploratory laparotomy with colectomy, bilateral salpingo-oophorectomy 03/07--> s/p 2nd look exp lap with washout, SBR, end ileostomy, and wound vac 03/09 -Patient coded in surgery, requiring resuscitation, intubation, pressor support--> extubated 03/12 -General surgery following Anemia -Overall stable but flucutating. Largely multifactorial due to severe B12 deficiency, folate deficiency, Iron deficiency anemia, acute infection, metastatic GI malignancy, renal insufficiency, surgical blood loss -Hgb=9.8(11.1, 9.5, 11.6, 11.0, 10.4, 10.2, 10.2) normocytic -Last transfused 03/08 -S/p IM B12 & IV iron -Continue folic acid -No hemolysis -EGD/colonoscopy were planned, but not completed as patient could not tolerate bowel prep, likely due to bowel obstruction as discussed above -Transfuse for hgb<7 -Follow up with Dr. Romero PE/DVT -Likely provoked by metastatic malignancy -CTA shows Moderate right sided pulmonary emboli without evidence of right heart strain -Dopplers revealing acute R femoropopliteal, deep tibioperoneal, and deep calf muscle DVT + L deep calf muscle DVT -On heparin gtt, likely transition to DOAC prior to discharge pending clinical course -Repeat CTA chest 03/08 showed decreased burden of R pulmonary embolus Renal Mass, Hydroureteronephrosis, TASHA, hyperuricemia -CT imaging shows 2.5 cm R interpolar renal mass concerning for RCC + Mild right hydroureteronephrosis, likely secondary to pelvic mass effect on the ureter -Urology, nephrology following Supratherapeutic INR -In setting of advanced metastatic disease, Eliquis therapy, acute infection -INR corrected s/p preoperative Vit K +/- FFP reversal UTI -On IV antibiotics -As per other services Respiratory Failure, Shock, S/p Cardiac Arrest -Extubated 03/12 -As per crit care team Continue management of other medical problems as per appropriate services. Patient discussed with Dr. Romero. Please call with questions. Interval History: Patient seen and examined at bedside. She is doing relatively well. She is eating/drinking, taking pills, having good ostomy output. She denies any pain presently. Her only complaint is weakness, fatigue. VSS, afebrile. No overt bleeding. Physical Examination : Temp: [36.3 ??C (97.3 ??F)-36.8 ??C (98.3 ??F)] 36.3 ??C (97.3 ??F) Pulse: [68-95] 90 Resp: [18-26] 26 BP: (131-173)/(51-71) 157/62 FiO2 (%): [28 %] 28 % SpO2: [100 %] 100 % O2 Device: Nasal cannula O2 Flow Rate (L/min): [2 L/min] 2 L/min Temperature Range: Temp: 36.3 ??C (97.3 ??F) Temp Av.6 ??C (97.9 ??F) Min: 36.3 ??C (97.3 ??F)Max: 36.8 ??C (98.3 ??F) Weight change: -1.2 kg (-2 lb 10.3 oz) Physical Exam Vitals and nursing note reviewed. Constitutional: General: She is not in acute distress. Appearance: She is normal weight. She is ill-appearing HENT: Head: Normocephalic and atraumatic. Right Ear: External ear normal. Left Ear: External ear normal. Nose: Nose normal. Mouth/Throat: normal Eyes: General: No scleral icterus. Extraocular Movements: Extraocular movements intact. Pupils: Pupils are equal, round Cardiovascular: Rate and Rhythm: Normal rate and regular rhythm. Pulmonary: Effort: Pulmonary effort is normal. No respiratory distress Findings: 2L NC Abdominal: General: There is no distension. +ileostomy, + wound vac Tenderness: There is no tenderness or guarding Musculoskeletal: Right lower leg: +2 edema Left lower leg: +2 edema Skin: General: Skin is warm and dry. Coloration: Skin is not jaundiced. Findings: Abdominal incision, wound vac Neurological: General: alert and oriented x3. +generalized weakness, no focal deficits Psychiatric: Mood and Affect: Normal mood and affect. Calm, cooperative Laboratory data: Results from last 7 days Lab Units 03/17/25 0327 03/16/25 0904 03/16/25 0304 WBC x10E9/L 9.0 10.7 9.1 HEMOGLOBIN g/dL 9.8* 11.1* 9.5* HEMATOCRIT % 30.5* 34.7* 29.8* PLATELETS X10E9/L 192 209 169 MCV fL 83 82 83 Results from last 7 days Lab Units 03/17/25 0327 03/16/25 0304 03/15/25 0246 03/13/25 0154 03/12/25 0205 03/11/25 0210 03/11/25 0210 03/10/25 2030 PROTIME sec 12.8 13.2 13.0 < > 13.5* < > 13.4* -- INR 1.1 1.2 1.1 < > 1.2 < > 1.2 -- APTT sec -- -- -- -- 48* -- 58* 55* < > = values in this interval not displayed. Results from last 7 days Lab Units 03/17/25 0538 03/17/25 0327 03/17/25 0320 03/16/25 2107 03/16/25 1957 03/16/25 1416 03/16/25 0904 03/16/25 0858 03/16/25 0410 03/16/25 0304 03/15/25 1356 03/15/25 0910 03/15/25 0909 03/15/25 0246 SODIUM mmol/L -- 137 -- -- 137 -- 139 -- -- 141 < > 144 -- 145 POTASSIUM mmol/L -- 4.3 -- -- 4.3 -- 4.7 -- -- 3.8 < > 3.9 -- 4.1 CHLORIDE mmol/L -- 106 -- -- 107 -- 106 -- -- 107 < > 111* -- 109 CO2 mmol/L -- 25 -- -- 23 -- 26 -- -- 26 < > 27 -- 28 BUN mg/dL -- 9 -- -- 10 -- 12 -- -- 13 < > 13 -- 13 CREATININE mg/dL -- 0.37* -- -- 0.45 -- 0.42 -- -- 0.37* < > 0.43 -- 0.45 CALCIUM mg/dL -- 8.3* -- -- 7.9* -- 7.5* -- -- 7.5* < > 7.2* -- 7.7* ALK PHOS U/L -- -- -- -- -- -- -- -- -- -- -- 235* -- -- ALT U/L -- -- -- -- -- -- -- -- -- -- -- 16 -- -- AST U/L -- -- -- -- -- -- -- -- -- -- -- 22 -- -- BEDSIDE GLUCOSE mg/dL 73 -- 73 < > -- < > -- -- < > -- < > -- < > -- GLUCOSE mg/dL -- 63* -- -- 70 -- 79 -- -- 77 < > 142* -- 118* INR -- 1.1 -- -- -- -- -- -- -- 1.2 -- -- -- 1.1 MAGNESIUM mg/dL -- 1.9 -- -- -- -- -- 2.2 -- 1.8 -- -- -- 2.0 < > = values in this interval not displayed. VITAMIN B12: Lab Results Component Value Date CVTYOBXY49 110 (L) 02/26/2025 FOLATE: Lab Results Component Value Date FOLATE 3.3 (L) 02/26/2025 IRON: Lab Results Component Value Date IRON 12 (L) 02/26/2025 TIBC 321 02/26/2025 FERRITIN 78 02/26/2025 Medications: acetaminophen, 650 mg, oral, Q6H diphenoxylate-atropine, 2 tablet, oral, 4x Daily folic acid, 1 mg, nasogastric, Daily insulin lispro, 2-10 Units, subcutaneous, Q6H lidocaine, 1 patch, transdermal, Daily megestroL, 60 mg, oral, 4x Daily pantoprazole, 40 mg, oral, QAM AC OR pantoprazole, 40 mg, intravenous, QAM AC ELLIOTT Christina 03/17/25942 Cosigned by Geremias Romero MD at 03/17/2025 5:10 PM EDT * OK Dang - 03/17/2025 9:12 AM EDT Images from the original note were not included. Colorectal Surgery Daily Progress Note Patient Name: Caren Suarez Admit Date: 02/25/2025 Length of Stay: 20 Days Admitting Physician: Deena Branch MD Subjective: Pt doing better. O2 weaned to 2 Liters. Reports appetite better. NG dislodged and given PO intake, not replaced Wound care at bedside doing VAC change. Objective: Vitals: 03/17/25 08 BP: Pulse: 90 Resp: (!) 26 Temp: SpO2: 100% Temp: [36.3 ??C (97.3 ??F)-36.8 ??C (98.3 ??F)] 36.3 ??C (97.3 ??F) Pulse: [68-95] 90 Resp: [18-26] 26 BP: (131-173)/(51-71) 157/62 FiO2 (%): [28 %] 28 % SpO2: [100 %] 100 % O2 Device: Nasal cannula O2 Flow Rate (L/min): [2 L/min] 2 L/min Allergies Allergen Reactions Penicillin Intake/Output last 3 shifts: I/O last 3 completed shifts: In: 2165.6 [I.V.:1436.2; IV Piggyback:729.5] Out: 3250 [Urine:1450; Drains:75; Stool:1725] Intake/Output this shift: I/O this shift: In: 427.3 [I.V.:327.4; IV Piggyback:99.9] Out: 150 [Urine:150] Dietary Orders (From admission, onward) Start Ordered 03/16/25 1107 Adult diet Full Liquid Diet effective now Question: Diet Type: Answer: Full Liquid 03/16/25 1106 03/15/25 1314 Adult nutrition supplements Continuous Question Answer Comment Diet Type or Consistency: Clear Liquid Select Supplement: Clear Liquid Supplement Frequency: TID 03/15/25 1313 Physical Exam Physical Exam Constitutional: General: She is sleeping. Interventions: Nasal cannula in place. Comments: +NG Cardiovascular: Rate and Rhythm: Normal rate and regular rhythm. Pulmonary: Effort: Tachypnea present. Abdominal: General: Bowel sounds are normal. Comments: Midline incision slight oozing, Stoma pink, brown liquid stool noted in ostomy bag Neurological: Mental Status: She is easily aroused. 24hour wound VAC output: 150 mL Ileostomy-2150ml Laboratory Data: Latest Reference Range & Units 03/15/25 02:46 03/16/25 03:04 03/16/25 09:04 03/17/25 03:27 White Blood Cells 4 - 11 x10E9/L 9.6 9.1 10.7 9.0 RBC count 3.8 - 5.2 X10E12/L 4.42 3.61 (L) 4.23 3.69 (L) Hemoglobin 11.7 - 15.5 g/dL 11.6 (L) 9.5 (L) 11.1 (L) 9.8 (L) Hematocrit 35 - 47 % 36.5 29.8 (L) 34.7 (L) 30.5 (L) MCV 80 - 100 fL 82 83 82 83 MCH 27 - 34 pg 26.3 (L) 26.4 (L) 26.2 (L) 26.6 (L) MPV 7 - 12 fL 8.4 8.1 8.1 8.4 MCHC 32 - 36 g/dL 32.0 32.0 31.9 (L) 32.2 RDW 11.5 - 15 % 27.4 (H) 27.3 (H) 27.5 (H) 27.7 (H) Platelets 150 - 450 X10E9/L 185 169 209 192 Lab Results Component Value Date GLU 73 03/17/2025 CALCIUM 8.3 (L) 03/17/2025 SODIUM 137 03/17/2025 K 4.3 03/17/2025 CO2 25 03/17/2025 BUN 9 03/17/2025 CREATININE 0.37 (L) 03/17/2025 Lab Results Component Value Date INR 1.1 03/17/2025 INR 1.2 2025 INR 1.1 03/15/2025 PROTIME 12.8 03/17/2025 PROTIME 13.2 2025 PROTIME 13.0 03/15/2025 acetaminophen, 650 mg, oral, Q6H diphenoxylate-atropine, 2 tablet, oral, 4x Daily folic acid, 1 mg, nasogastric, Daily insulin lispro, 2-10 Units, subcutaneous, Q6H lidocaine, 1 patch, transdermal, Daily megestroL, 60 mg, oral, 4x Daily pantoprazole, 40 mg, oral, QAM AC OR pantoprazole, 40 mg, intravenous, QAM AC calcium gluconate OR calcium gluconate OR calcium gluconate dextrose dextrose 5 % in water dextrose 50 % in water (D50W) glucagon (human recombinant) heparin (porcine) hydrALAZINE magnesium sulfate OR magnesium sulfate methocarbamoL ondansetron OR ondansetron ODT oxyCODONE OR oxyCODONE potassium chloride OR potassium chloride potassium chloride in water OR potassium chloride in water sodium phosphate IV OR sodium phosphate IV - central line OR sod phos di, mono-K phos mono sodium chloride sodium chloride sodium chloride 0.9 % Imaging: X-ray chest 1 view CLINICAL HISTORY: Postextubation Comparison: 03/12/2025 Views: 1 view FINDINGS: * NG tube courses below GE junction. Double-lumen catheter overlies SVC. Lower lobe atelectasis andsmall effusions. No pneumothorax. Subcutaneous gas slightly decreased overlying left chest as compared to previous exam. IMPRESSION: * No significant change Finalized by Jb Cifuentes MD on 03/13/2025 7:02 AM Assessment: Caren Suarez is a 70 y.o. 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 Patient's surgery was complicated by obstructive shock and cardiac collapse resulting in need for ACLS. ROSC was obtained and patient was transferred to the SICU postoperatively. Patient subsequently went for 2nd loop laparotomy, fascial closure, ileostomy creation on 03/09/2025. 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 2.2 cm right interpolar renal mass concerning for RCC Right-sided PE without heart strain Left pneumothorax, resolved, chest tube out Multiple DVT Pulmonary nodules likely metastasis Obstructive shock from PE now off vasopressors Status post cardiac arrest intraoperatively Acute blood loss anemia, Hgb up to 11 coagulopathy, improving Thrombocytopenia, stable Metabolic acidosis Acute respiratory failure requiring mechanical ventilation, now extubated VRE UTI, no abx indicated for now per ID Peritonitis diagnosed on paracentesis 02/28/25, with complete treatment, now on empiric antibiotics Plan: Continue appetite stimulant, no objection to marinol Continue heparin, not ready for DOAC yet Vascular medicine recommended Eliquis once closer to discharge date 5 mg b.i.d. without induction dose, they signed off Appreciate Infectious Disease recommendations - antibiotics were completed and they are monitoring her off antibiotics Incentive spirometry 10 x per hour Wound care, wound vac per ET Appreciate nephrology recommendations - hold D5, albumin infusion, hold lasix Appreciate oncology recommendations Appreciate palliative medicine assistance with goals of care in regards to her cancer - patient chose DNR CCA but okay with intubation and was encouraged to complete POA paperwork and living will Urology was consulted for urinary retention -pending No objection to transfer out of ICU Any [facility] Colorectal Surgery 6a - 6p Pager: [phone] 6p - 6a Pager: [phone] OK Dang 03/17/25 1331 Cosigned by Reyna Brewer MD at 03/17/2025 2:52 PM EDT * Venita Chan MD - 03/17/2025 6:42 AM EDT SICU Critical Care Progress Note Patient - Caren Suarez Age - 70 y.o. - 1955 Date of Admission - 02/25/2025 5:24 PM Hospital Day: 20 day(s) History of Present Illness: Caren Suarez is a 69 y.o. female with past medical history of DVT, HTN, who was admitted to [facility] after a CT A/P at an OSH demonstrated large partially solid cystic lesions. At that time she was found to have multiple DVTs and PEs. She was transferred to [facility] for a higher level of care. On arrival, her DVTs were being treated with heparin. Colorectal surgery was consulted on 03/07 for possible bowel obstruction. At that time a CT A/P demonstrated colonic dilation with transition at the sigmoid junction. There is concern for acute malignant obstruction for known mucinous adenocarcinoma with colorectal origin. After stabilization of the patient's INR with FFP on 03/07, the decisionwas made to take her to the operating room as a joint case between Colorectal on [employer] Specialist/Onc. At the beginning of the case, patient initially desaturated prior to incision. It was believed thatthis was due to the significant malignant ascites compressing the lungs. Decision was made to proceed with the case, and after decompression the patient's respiratory status significantly improved. The patient later went into cardiac arrest within the operating room and a code was initiated. Compressions were begun, epi was administered. After 2 rounds of compressions ROSC was obtained. ABThera was placed and the patient was transferred to the surgical ICU intubated and sedated. 03/09: OR for end ileostomy, fascia closed, wound vac 03/12: Extubated + CT removal Teams following: CRS, Nephrology, ID, Nutrition, RT, Oncology, RT 24 Hour events: No acute events overnight. Remained hemodynamically stable Patient was seen and examined at bedside. She was sleeping and just woke up during examination. States that she has been having increased PO intake having broth, some liquid inch sure, interpreted. Denies any nausea and vomiting. Pain is tolerated on pain medication and is overall improving. Able to pull 500-750 on IS, she states that she sometimes is able to go higher but is just waking up. Physical Exam: Vital Signs: BP 155/56 Pulse 85 Temp 36.7 ??C (98 ??F) (Oral) Resp 22 Ht 157.5 cm (5' 2.01 ) Wt 84.3 kg (185 lb 13.6 oz) SpO2 100% BMI 33.98 kg/m?? Physical Exam Constitutional: General: She is sleeping. She is not in acute distress. Appearance: She is not ill-appearing. HENT: Head: Normocephalic and atraumatic. Right Ear: External ear normal. Left Ear: External ear normal. Nose: Nose normal. Mouth/Throat: Mouth: Mucous membranes are moist. Eyes: Extraocular Movements: Extraocular movements intact. Conjunctiva/sclera: Conjunctivae normal. Pupils: Pupils are equal, round, and reactive to light. Cardiovascular: Rate and Rhythm: Normal rate and regular rhythm. Pulmonary: Effort: Pulmonary effort is normal. No respiratory distress. Comments: 1L NC Pulling 500-750 IS Abdominal: General: Abdomen is flat. There is no distension. Palpations: Abdomen is soft. Tenderness: There is no guarding. Comments: Ostomy bag in place with brown liquid stool output Midline incision covered with a wound VAC Musculoskeletal: Right lower leg: No edema. Left lower leg: No edema. Skin: General: Skin is warm and dry. Capillary Refill: Capillary refill takes less than 2 seconds. Coloration: Skin is not jaundiced. Neurological: Mental Status: She is easily aroused. Mental status is at baseline. Intake/Output Summary (Last 24 hours) at 03/17/2025 0642 Last data filed at 03/17/2025 0543 Gross per 24 hour Intake 2165.63 ml Output 1985 ml Net 180.63 ml Breathing support O2 Device: Nasal cannula Settings Vent Mode: CPAP FiO2 (%): 28 % Resp Rate (Set): 20 Avea Vt (Set, L): 0.4 Liter PEEP/CPAP (cm H2O): 8 cm H20 Insp Time (sec): 0.92 sec Trigger Sensitivity Flow (L/min): 1 L/min Trigger Sensitivity Pressure (cm H2O): 3 cm H2O Humidification: Heat and moisture exchanger Invasive Hemodynamic [place] Results from last 3 days Lab Units 03/17/25 0327 03/16/25 1957 03/16/25 0904 03/16/25 0858 03/16/25 0304 03/15/25 2231 03/15/25 1356 03/15/25 0910 03/15/25 0246 03/14/25 2032 03/14/25 1430 BUN mg/dL 9 10 12 -- 13 13 13 13 13 13 13 CREATININE mg/dL 0.37* 0.45 0.42 -- 0.37* 0.39* 0.44 0.43 0.45 0.49 0.51 POTASSIUM mmol/L 4.3 4.3 4.7 -- 3.8 3.9 3.4* 3.9 4.1 3.7 3.9 3.8 CO2 mmol/L 25 23 26 -- 26 26 29 27 28 30 31 CHLORIDE mmol/L 106 107 106 -- 107 108 109 111* 109 108 108 MAGNESIUM mg/dL 1.9 -- -- 2.2 1.8 -- -- -- 2.0 -- -- AST U/L -- -- -- -- -- -- -- 22 -- -- -- ALT U/L -- -- -- -- -- -- -- 16 -- -- -- ALK PHOS U/L -- -- -- -- -- -- -- 235* -- -- -- Results from last 3 days Lab Units 03/17/2532603/16/25 03003/15/25 0246 INR 1.1 1.2 1.1 PROTIME sec 12.8 13.2 13.0 Results from last 3 days Lab Units 03/17/2532603/16/25 0903/16/25 0304 03/15/25 0246 WBC x10E9/L 9.0 10.7 9.1 9.6 HEMOGLOBIN g/dL 9.8* 11.1* 9.5* 11.6* HEMATOCRIT % 30.5* 34.7* 29.8* 36.5 PLATELETS X10E9/L 192 209 169 185 MCV fL 83 82 83 82 MCH pg 26.6* 26.2* 26.4* 26.3* MCHC g/dL 32.2 31.9* 32.0 32.0 RDW % 27.7* 27.5* 27.3* 27.4* Microbiology Results No results found for the last 168 hours. Glucose Results from last 7 days Lab Units 03/17/2532603/17/25 03203/16/25 2328 03/16/25 2152 03/16/25 2107 03/16/25 1957 03/16/25 1416 03/16/25 0904 03/16/25 0849 03/16/25 0410 03/16/25 0304 03/15/25 2231 BEDSIDE GLUCOSE mg/dL -- 73 114* 87 69 -- 109* -- 85 81 -- -- GLUCOSE mg/dL 63* -- -- -- -- 70 -- 79 -- -- 77 93 Medications Scheduled: acetaminophen, 650 mg, oral, Q6H diphenoxylate-atropine, 2 tablet, oral, 4x Daily folic acid, 1 mg, nasogastric, Daily insulin lispro, 2-10 Units, subcutaneous, Q6H lidocaine, 1 patch, transdermal, Daily megestroL, 60 mg, oral, 4x Daily pantoprazole, 40 mg, oral, QAM AC OR pantoprazole, 40 mg, intravenous, QAM AC Infusions: dextrose 5 % in water, 100 mL/hr heparin, 300-3,500 Units/hr, Last Rate: 1,050 Units/hr (03/16/251840) sodium chloride 0.9 %, 20 mL/hr, Last Rate: 50 mL/hr (03/11/25 05) sodium chloride 0.9 %, 3 mL/hr, Last Rate: 3 mL/hr (03/16/251840) As Needed: calcium gluconate OR calcium gluconate OR calcium gluconate dextrose dextrose 5 % in water dextrose 50 % in water (D50W) glucagon (human recombinant) heparin (porcine) hydrALAZINE magnesium sulfate OR magnesium sulfate methocarbamoL ondansetron OR ondansetron ODT oxyCODONE OR oxyCODONE potassium chloride OR potassium chloride potassium chloride in water OR potassium chloride in water sodium phosphate IV OR sodium phosphate IV - central line OR sod phos di, mono-K phos mono sodium chloride sodium chloride sodium chloride 0.9 % ACTIVE PROBLEM LIST: S/p cardiac arrest Malignant bowel obstruction s/p total colectomy and bilateral salpingo-oophorectomy Pulmonary embolism Multiple DVT Blood loss anemia Acute Kidney Injury w/ concern for acute tubular necrosis Malignant Colorectal Cancer Bacterial Peritonitis Ovarian Cystic Lesion ASSESSMENT/PLAN: Caren Suarez is a 69 y.o. female who is s/p total colectomy and bilateral salpingo-oophorectomy for malignant bowel obstruction for known mucinous adenocarcinoma (03/07) and s/p ex lap ileostomy creation, SBR, and abdominal wall closure (03/09). 1. Neuro S/p cardiac arrest CT Head without contrast: No acute intracranial process. Hospital Meds: Sedation: None Analgesia: scheduled Tylenol, lidocaine patch, Roxicodone PRN Other: n/a Home Meds: N/a 2. Cardio PMHx/PSHx: HTN, previous DVT Hemodynamics: Maintain MAP >65 RRR Pressors: None Hospital meds: IV heparin drip Home meds: None 3. Resp PMHx/PSHx: prev PE Breathing Support: 2 L NC Bronchopulmonary hygiene, encourage IS as able IS: 500-750 CC Awaiting improvement to 1000 IS Hospital meds: None Home meds: None 4. GI Malignant bowel obstruction s/p total colectomy and bilateral salpingo-oophorectomy Status post total colectomy, left in discontinuity, ABThera in place 03/07/25 Status post 2nd look and end ileostomy creation, wound vac in place 03/09/25 Wound vac / 24H: 75 mL Diet: CLD Bowel Function: Monitor - liquid stool output Ileostomy / 24H: 825 mL - improved output (4L > 2L last 2 days) Hospital Meds: Protonix, megace Home Meds: None known 5. Renal Lab Results Component Value Date SODIUM 137 03/17/2025 SODIUM 137 2025 SODIUM 139 2025 CL 106 03/17/2025 CL 107 2025 CL 106 2025 K 4.3 03/17/2025 K 4.3 2025 K 4.7 2025 CO2 25 03/17/2025 CO2 23 2025 CO2 26 2025 Elyte replacement PRN Intake/Output Summary (Last 24 hours) at 03/17/2025 0642 Last data filed at 03/17/2025 0543 Gross per 24 hour Intake 2165.63 ml Output 1985 ml Net 180.63 ml # TASHA w/ concern for acute tubular necrosis - nephrology consult 03/09/25 Nephrology consulted Lasix 40mg IV BID completed 03/12, strict ins and outs, bladder scan q12 # Urinary retention removed camara 03/13, minimal to no UOP. Straight cath 2x after bladder scan >400 mL placed camara back 03/14, consulted urology by CRS Urology 03/15: no intervention, maintain Camara until overall condition improves- trial of void can beattempted at time; outpatient follow-up with Urology for 2.2 cm right interpolar renal lesion - signed off IVF: None 24h UOP: 1085 mL (0.5 ml/kg/hr) 24h wound vac: 75 mL 24h ileostomy: 825 mL 24h net: +180.6 mL since admission: -6.6 L Hospital meds: Lasix PRN (last dose 03/15) PMHx: none Home meds: none 6. Heme Lab Results Component Value Date HGB 9.8 (L) 03/17/2025 HGB 11.1 (L) 2025 HGB 9.5 (L) 2025 PLT 192 03/17/2025 PLT 209 2025 PLT 169 2025 Lab Results Component Value Date INR 1.1 03/17/2025 INR 1.2 2025 INR 1.1 03/15/2025 Type and Screen: A neg Blood Products Administered: 03/08: 3u pRBC + 1u FFP 03/07: 2u FFP Will continue to monitor Hgb and transfuse PRN HGB: 11.1 > 9.8 7. ID Tmax/24H: Temp (24hrs), Av.6 ??C (97.9 ??F), Min:36.3 ??C (97.3 ??F), Max:36.8 ??C (98.3 ??F) Lab Results Component Value Date WBC 9.0 03/17/2025 WBC 10.7 2025 WBC 9.1 2025 # Bacterial Peritonitis - ovarian cystic lesion ID on board S/p rocephin/flagyl 03/12 Ucx +VRE 8. Endo Lab Results Component Value Date GLU 63 (L) 03/17/2025 GLU 73 03/17/2025 GLU 114 (H) 2025 Maintain BG <180 mg/dL SSI PRN PMHx: none Home meds: none 9. MS PT/OT when able - Recommend moderate intensity rehab, Tolerate 1-2 hrs of therapy 3-5 days/wk 10. Lines/Tubes 2x PIV Ileostomy Indwelling urinary catheter Prophylaxis DVT: SCD, heparin GI: protonix Resp: none Code Status: DNR Comfort Care Arrest (DNR-CCA) [place] Dispo: Critical, stay in SICU Venita Chan MD (Nikki) PGY-1, Urology Resident SICU Service Cosigned by Arsalan Osborne DO at 03/17/2025 10:21 AM EDT Associated attestation - Arsalan Osborne DO - 03/17/2025 10:21 AM EDT Attending Attestation: I saw the patient. I participated and was physically present during the critical/fuentes portions of the service. I was directly involved in the management and treatment plan of the patient. I reviewed the resident's note. Additional Notes/Findings: 69 y.o. female who is s/p total colectomy and bilateral salpingo-oophorectomy for malignant bowel obstruction for known mucinous adenocarcinoma (03/07) and s/p ex lap ileostomy creation, SBR, and abdominal wall closure (03/09). Hemodynamically stable s/p cardiac arrest Oxygenating well on 2LNC Currently on megace will discuss change to marinol with CRS ARSALAN OSBORNE DO * Emanuel Rubio MD - 2025 12:50 PM EDT Images from the original note were not included. [facility] Artur Small, ASSISTANT DIRECTOR OF [employer]IDENCE LIFE Nephrology Consultation Note Patient Name: Caren Suarez : 1955 Date of Service: 03/16/25 PCP: Riya Diego MD Attending Physician: Ghassan Castillo MD Admission Date: 02/25/2025 Length of stay: LOS: 19 days Chief complaint. Hypernatremia and TASHA Reason for Consult: Acute Kidney Injury Assessment and Plan. 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 She reports having a hard time breathing and a cough that went away ( she has had a hard time breathing and had a cough but it went away ). She had been treated by her PCP with steroids and antibiotics without improvement. An outpatient CT abdomen/pelvis on 02/24/2025 revealed a large right adnexal mass, a solid right renal lesion, and likely metastases to the lungs and abdomen. Venous duplex showed bilateral DVTs. She was transferred from [place] to [facility] for further evaluation and management. In the emergency department, she was started on a heparin drip. Workup upon admission included a CTA chest on 02/25/2025, which confirmed moderate right-sided pulmonary emboli without right heart strain. She is currently being treated for a urinary tract infection and bacterial peritonitis with IV Rocephin and Flagyl, with Infectious Disease on board. Nephrology consultation was requested for acute kidney injury. Assessment Acute Kidney Injury, likely multifactorial with hemodynamic and prerenal components, with concern for acute tubular necrosis (ATN). The TASHA is in the setting of sepsis, treatment for bacterial peritonitis, and obs uropathy , There was contrast exposure on 02/24/2025. Cr has improved. Right hydronephrosis, 2.2 cm right renal mass lesion Urology evaluated the patient Mild hypernatremia on initial evaluation. Hypophosphatemia. Metabolic acidosis on initial evaluation. Volume Status: Euvolemic , possibly on low side Hypertension: Stable, though has been on the higher side. Hemodynamics: Echocardiogram on 02/26/2025 showed a normal LVEF of 60-65% with Grade I diastolic dysfunction and no evidence of right heart strain. Anemia Most recent hemoglobin is 10.8 g/dL. Sepsis secondary to bacterial peritonitis and UTI. 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 ? Rectal ca Acute pulmonary embolism and bilateral DVT. Malignant Bowel obstruction , patient is status post exploratory laparotomy, total colectomy, left in discontinuity, and BSO on 03/07/2025 , repeat Second Look laparotomy and ileostomy creation on 03/09/2025 Cardiac arrest intraoperatively, 03/07/2025 needing ACLS. Ventilator dependent respiratory failure postoperatively Plan Sodium wnl now and has more oral intake will hold D5W Albumin infusion for third spacing from hypoalbuminemia, albumin is low will give Albumin 50 g oncetoday, may need daily until anasarca improves Will hold Lasix today since high output ostomy Replace phosphorus per protocol. Will check vitamin D level. Strict ins and outs / accurate documentation of urine out put / daily weights and Bladder scan Q12 Avoid nephrotoxins, avoid contrast exposure unless absolutely necessary, avoid hemodynamic instability Dose all medications to GFR Monitor Renal Chem panel daily in AM Thank you for this consultation, we will follow along with you regarding care of this patient whilethe patient is here in the hospital, please call if you have any questions or concerns. EMANUEL RUBIO MD on 2025 at 12:50 PM [facility] [email or web address] - is now [employer] Schedule : See Epic on-call schedule for [facility] ( [facility] ) Nephrology Working Hours : Epic chat during working hours, if no response please use on- call physician reach out as below After Hours : Answering service contact : [phone] Office Phone number: [phone] Subjective Patient seen at bedside, she is sitting in chair, she is having some nausea and vomiting, edema is much better. No worsening in the respiratory status Na is better, kidney function at baseline Albumin is low Patient looks better and feels better tolerating clear liquids Past Medical History: Diagnosis Date Deep vein thrombosis ([facility]) Past Surgical History: Procedure Laterality Date APPLICATION WOUND VAC MIDSECTION N/A 03/09/2025 Performed by Ghassan Castillo MD at [facility] CLOSURE WOUND ABDOMEN N/A 03/09/2025 Performed by Ghassan Castillo MD at [facility] ILEOSTOMY CREATION N/A 03/09/2025 Performed by Ghassan Castillo MD at [facility] LAPAROTOMY EXPLORATORY N/A 03/09/2025 Performed by Ghassan Castillo MD at [facility] LAPAROTOMY EXPLORATORY N/A 03/07/2025 Performed by Ghassan Castillo MD at [facility] RESECTION BOWEL SMALL N/A 03/09/2025 Performed by Ghassan Castillo MD at [facility] SALPINGO-OOPHORECTOMY Bilateral 03/07/2025 Performed by Faith Celis MD at [facility] TOTAL COLECTOMY N/A 03/07/2025 Performed by Ghassan Castillo MD at [facility] Family History Problem Relation Age of Onset Breast cancer Neg Hx Social History Socioeconomic History Marital status: Single Spouse name: Not on file Number of children: Not on file Years of education: Not on file Highest education level: Not on file Occupational History Not on file Tobacco Use Smoking status: Former Types: Cigarettes Smokeless tobacco: Never Substance and Sexual Activity Alcohol use: Never Drug use: Never Sexual activity: Not on file Other Topics Concern Not on file Social History Narrative Not on file Social Drivers of Health Financial Resource Strain: Not on file Food Insecurity: No Food Insecurity (02/25/2025) Hunger Screening Food Insecurity - Worry: Never True Food Insecurity - Inability: Never True Transportation Needs: No Transportation Needs (02/25/2025) PRAPARE - Transportation Lack of Transportation (Medical): No Lack of Transportation (Non-Medical): No Physical Activity: Not on file Stress: Not on file Social Connections: Not on file Interpersonal Safety: Not At Risk (02/25/2025) Humiliation, Afraid, Rape, and Kick questionnaire Fear of Current or Ex-Partner: No Emotionally Abused: No Physically Abused: No Sexually Abused: No Housing Instability: Low Risk (02/25/2025) Housing Instability Housing Instability: No Prior to Admission medications Medication Sig Start Date End Date Taking? Authorizing Provider apixaban (ELIQUIS) 5 mg tablet Take 2 tablets (10 mg total) by mouth 2 (two) times a day for 7 days, THEN 1 tablet (5 mg total) 2 (two) times a day for 30 days. 03/05/25 04/11/25 Eleni Harding APRN-ASSISTANT DIRECTOR OF [employer]ID[employer] LIFE Allergies Allergen Reactions Penicillin ROS: Constitutional: No fever, chills, lethargy, weakness and wt loss. Cardiac: No chest pain, dyspnea, orthopnea or PND. Chest: No cough, phlegm or wheezing. Abdomen: No nausea, no vomiting or diarrhea. : No hematuria, pyuria, dysuria or flank pain. Extremities: No swelling or joint pains. Physical Exam: VITALS BP 131/71 Pulse 75 Temp 36.8 ??C (98.3 ??F) (Oral) Resp 23 Ht 157.5 cm (5' 2.01 ) Wt 85.5kg (188 lb 7.9 oz) SpO2 100% BMI 34.47 kg/m?? Wt Readings from Last 3 Encounters: 03/16/25 85.5 kg (188 lb 7.9 oz) 02/24/25 74.4 kg (164 lb) BMI: Body mass index is 34.47 kg/m??. I/O (24 Hours) Intake/Output Summary (Last 24 hours) at 2025 1250 Last data filed at 2025 1100 Gross per 24 hour Intake -- Output 3410 ml Net -3410 ml General: Awake, alert, no acute distress HEENT: Atraumatic, normocephalic. Anicteric sclera. [place] and moist oral mucosa. Neck No JVD. Chest: Bilateral air entry, clear to auscultation, no wheezing, rhonchi or rales. Cardiovascular: RRR, S1S2, no murmur, rub or gallop. No lower extremity edema. Abdomen: Soft, status post surgery, ileostomy in place Musculoskeletal: No cyanosis or clubbing. Integumentary: [place], warm and dry. Free from rash or lesions. CARBIDE GRINDER: Examination grossly nonfocal Medications Scheduled Meds: acetaminophen, 650 mg, oral, Q6H diphenoxylate-atropine, 2 tablet, oral, 4x Daily folic acid, 1 mg, nasogastric, Daily insulin lispro, 2-10 Units, subcutaneous, Q6H lidocaine, 1 patch, transdermal, Daily megestroL, 60 mg, oral, 4x Daily pantoprazole, 40 mg, oral, QAM AC OR pantoprazole, 40 mg, intravenous, QAM AC Continuous Infusions: dextrose 5 % in water, 100 mL/hr heparin, 300-3,500 Units/hr, Last Rate: 1,050 Units/hr (03/16/25 1039) sodium chloride 0.9 %, 20 mL/hr, Last Rate: 50 mL/hr (03/11/25 0523) sodium chloride 0.9 %, 3 mL/hr, Last Rate: 3 mL/hr (03/14/25 0614) PRN Meds: calcium gluconate OR calcium gluconate OR calcium gluconate dextrose dextrose 5 % in water dextrose 50 % in water (D50W) glucagon (human recombinant) heparin (porcine) hydrALAZINE magnesium sulfate OR magnesium sulfate methocarbamoL ondansetron OR ondansetron ODT oxyCODONE OR oxyCODONE potassium chloride OR potassium chloride potassium chloride in water OR potassium chloride in water sodium phosphate IV OR sodium phosphate IV - central line OR sod phos di, mono-K phos mono sodium chloride sodium chloride sodium chloride 0.9 % Results Review Renal Chemistry Results from last 7 days Lab Units 03/16/25 0904 03/16/25 0858 03/16/25 0304 03/15/25 2231 03/15/25 1356 03/15/25 0910 03/15/25 0246 03/14/25 1430 03/14/25 0234 03/13/25 1208 03/13/25 0933 SODIUM mmol/L 139 -- 141 140 142 144 145 < > 148* -- -- POTASSIUM mmol/L 4.7 -- 3.8 3.9 3.4* 3.9 4.1 < > 3.6 < > 3.5 CHLORIDE mmol/L 106 -- 107 108 109 111* 109 < > 108 -- -- CO2 mmol/L 26 -- 26 26 29 27 28 < > 35* -- -- BUN mg/dL 12 -- 13 13 13 13 13 < > 13 -- -- CREATININE mg/dL 0.42 -- 0.37* 0.39* 0.44 0.43 0.45 < > 0.46 -- -- CALCIUM mg/dL 7.5* -- 7.5* 7.3* 7.3* 7.2* 7.7* < > 7.5* -- -- MAGNESIUM mg/dL -- 2.2 1.8 -- -- -- 2.0 -- 2.1 -- 2.3 PHOSPHORUS mg/dL -- 3.4 2.5 2.3* 1.9* -- 2.0* < > 1.8* < > 3.0 < > = values in this interval not displayed. Hepatic: Lab Results Component Value Date AST 22 03/15/2025 AST 33 03/09/2025 AST 108 (H) 03/08/2025 ALT 16 03/15/2025 ALT 23 03/09/2025 ALT 33 (H) 03/08/2025 ALKPHOS 235 (H) 03/15/2025 ALKPHOS 38 (L) 03/09/2025 ALKPHOS 37 (L) 03/08/2025 BNP Lab Results Component Value Date BNP 22 03/08/2025 BNP 34 03/06/2025 BNP 61 02/24/2025 CBC Results from last 7 days Lab Units 03/16/25 0904 03/16/25 0304 03/15/25 0246 03/14/25 0234 03/13/25 0154 WBC x10E9/L 10.7 9.1 9.6 6.4 5.5 HEMOGLOBIN g/dL 11.1* 9.5* 11.6* 11.0* 10.4* HEMATOCRIT % 34.7* 29.8* 36.5 34.3* 32.5* PLATELETS X10E9/L 209 169 185 147* 105* Results from last 7 days Lab Units 03/16/25 0904 03/16/25 0849 03/16/25 0410 03/16/25 0304 03/15/25 2231 BEDSIDE GLUCOSE mg/dL -- 85 81 -- -- GLUCOSE mg/dL 79 -- -- 77 93 Urine Studies: Lab Results Component Value Date COLOR Yellow 03/06/2025 TURBIDITY Hazy (A) 03/06/2025 SPECIFICGRA 1.023 03/06/2025 NITRITE Negative 03/06/2025 PHURINE 6.0 03/06/2025 LEUKOCYTE Small (A) 03/06/2025 PROTEIN 50 mg/dL (A) 03/06/2025 KETONES 20 mg/dL (A) 03/06/2025 UROBILINOGEN <1.1 eu/dL 03/06/2025 BLOODHGB Large (A) 03/06/2025 Lab Results Component Value Date UPROCRTRAT 0.25 (H) 03/06/2025 Urine Sodium: No components found for: CRYSTAL Urine Potassium: No results found for: KUR Urine Chloride: No results found for: CLUR Urine Osmolarity: No components found for: OSMOU Urine Creatinine: No results found for: LABCREA Urine Eosinophils: No components found for: UEOS Urine Protein: No components found for: TPU Immunology Profile No results found for: PROTELECTR , SEDRATE , CRP , RF , ANASCREEN , ANTIDSDNA , C3 , C4 , ANCA , MYELOP , PROTEINASE3 , ANTIGLOMERU No results found for: HAV , HEPAIGM , HEPBIGM , HEPBCAB , HBEAG , HEPCAB SP: No results found for: SP C3:No results found for: C3 C4:No results found for: C4 MPO ANCA: No results found for: MPO PR3 ANCA: No components found for: PR3 hepatitis serologies ANTIGBM:No components found for: GBMABIGG HEPATITIS B SURFACE AG: No results found for: HEPBSAG HEPATITIS C AB: No results found for: HEPCAB Electrophoresis: SPEP:No results found for: PROT , LABALPH , LABBETA , PATH UPEP:No results found for: LABPE Anemia Profile Lab Results Component Value Date WBC 10.7 2025 WBC 9.1 2025 HGB 11.1 (L) 2025 HGB 9.5 (L) 2025 HCT 34.7 (L) 2025 HCT 29.8 (L) 2025 PLT 209 2025 PLT 169 2025 Lab Results Component Value Date IRON 12 (L) 02/26/2025 TIBC 321 02/26/2025 FERRITIN 78 02/26/2025 Bone Mineral Profile Lab Results Component Value Date CALCIUM 7.5 (L) 2025 Results from last 7 days Lab Units 03/16/25 0858 03/16/25 0304 03/15/25 0246 MAGNESIUM mg/dL 2.2 1.8 2.0 Echocardiogram: Echo complete W/O contrast Result Date: 02/26/2025 Left Ventricle: Left ventricle is small. Systolic function is normal with an ejection fraction of 60-65%. No segmental wall motion abnormalities. Grade I diastolic dysfunction (impaired relaxation) is present. Lateral E' is 11.70 cm/s. Medial E' is 7.94 cm/s. Right Ventricle: Right ventricular sizeappears normal. The right ventricular basal diameter is 22.0 mm. Systolic function is normal. Aortic Valve: There is trace to mild regurgitation. There is no evidence of aortic valve stenosis. Thank you for the consultation. Please do not hesitate to contact us for any further questions/concerns. We will continue to follow along with you. * Geremias Romero MD - 2025 7:39 AM EDT Images from the original note were not included. [facility] - Daily Progress Note 2025, 7:39 AM Impression/Plan: Metastatic Colorectal Cancer -Initially favoring ovarian primary given clinical pattern, but now with pathology positive for colorectal primary -Initial CT a/p showed large partially solid and partially cystic lesion in the right adnexa measuring 16 cm x 12 cm x 11 cm + lower anterior abdominal soft tissue nodules + 2.5 cm solid R renal lesion + diffuse intraperitoneal fluid -CTA chest revealed numerous pulmonary nodules -CA-[id number], YH6=677, CEA=24.6, CA 19-9 WNL -TVUS noted an 18.2 cm cystic and solid lesion in the pelvis with ascites and peritoneal nodularity -S/p IR performed paracentesis and biopsy of soft tissue nodules 02/28 -Ascites fluid non-diagnostic -Abdominal soft tissue biopsy pathology positive for mucinous adenocarcinoma consistent with colorectal origin -Will need tor recover from surgery before she will be considered for systemic cancer treatments -Palliative medicine consult for assistance with pain. Patient elected to change code status to DNRCCA yesterday -She will follow up with me after discharge for further management -patient is making very slow recovery and I am not confident we will get to a place for treatment is safe and effective but too soon to know Malignant Bowel Obstruction, Abdominal Pain/Distention -Repeat CT a/p 03/06 shows Colonic dilatation with transition at the sigmoid junction. Concern for obstruction from the known large rectal mass vs multicentric colorectal carcinoma + Similar appearanceof a 20 cm cystic pelvic lesion, recently characterized as rectal adenocarcinoma + Peritoneal carcin omatosis -Now s/p exploratory laparotomy with colectomy, bilateral salpingo-oophorectomy 03/07--> s/p 2nd look exp lap with washout, SBR, end ileostomy, and wound vac 03/09 -Patient coded in surgery, and now remains in ICU, she was extubated 03/12 -General surgery following Renal Mass, Hydroureteronephrosis, TASHA, hyperuricemia -CT imaging shows 2.5 cm R interpolar renal mass concerning for RCC + Mild right hydroureteronephrosis, likely secondary to pelvic mass effect on the ureter -Urology, nephrology following PE/DVT -Likely provoked by metastatic malignancy -CTA shows Moderate right sided pulmonary emboli without evidence of right heart strain -Dopplers revealing acute R femoropopliteal, deep tibioperoneal, and deep calf muscle DVT + L deep calf muscle DVT -On heparin gtt, likely transition to DOAC prior to discharge pending clinical course -Repeat CTA chest 03/08 showed decreased burden of R pulmonary embolus Supratherapeutic INR -In setting of advanced metastatic disease, Eliquis therapy, acute infection -INR corrected s/p preoperative Vit K +/- FFP reversal Anemia -Improved/stable. Largely multifactorial due to severe B12 deficiency, folate deficiency, Iron deficiency anemia in setting of vaginal bleeding d/t #1, acute infection, metastatic GI malignancy, renal insufficiency, surgical blood loss -Hgb= hemoglobin decreased from 11.6-9.5.? Bleed? New onset Hemolysis? -we will need to follow this closely -Last transfused PRBC 03/08 -S/p IM B12 & IV iron -Continue folic acid -No hemolysis -EGD/colonoscopy were planned, but not completed as patient could not tolerate bowel prep, likely due to bowel obstruction as discussed above -Transfuse for hgb<7 Thrombocytopenia: Resolved UTI -On IV antibiotics -As per other services Respiratory Failure, Shock, S/p Cardiac Arrest -Extubated 03/12 -As per crit care team Continue management of other medical problems as per appropriate services. Discussed with the patient. All questions answered. Trenton Romero MD Interval History: Patient seen in bed awake and alert resting comfortably States pain well-controlled Has been out of bed but not able to stand on her own or walk Physical Examination : Temp: [36.3 ??C (97.3 ??F)-36.8 ??C (98.2 ??F)] 36.3 ??C (97.3 ??F) Pulse: [64-110] 70 Resp: [16-31] 24 BP: (115-171)/(48-73) 144/55 FiO2 (%): [28 %] 28 % SpO2: [95 %-100 %] 100 % O2 Device: Nasal cannula O2 Flow Rate (L/min): [2 L/min-4 L/min] 2 L/min Temperature Range: Temp: 36.3 ??C (97.3 ??F) Temp Av.6 ??C (97.9 ??F) Min: 36.3 ??C (97.3 ??F)Max: 36.8 ??C (98.2 ??F) Weight change: 0.8 kg (1 lb 12.2 oz) Physical Exam Vitals and nursing note reviewed. Constitutional: General: She is not in acute distress. Appearance: She is normal weight. She is ill-appearing HENT: Head: Normocephalic and atraumatic. Right Ear: External ear normal. Left Ear: External ear normal. Nose: Nose normal. Mouth/Throat: Eyes: General: No scleral icterus. Extraocular Movements: Extraocular movements intact. Pupils: Pupils are equal, round Cardiovascular: Rate and Rhythm: Normal rate and regular rhythm. Pulmonary: Effort: Pulmonary effort is normal. No respiratory distress Abdominal: General: There is distension. Tenderness: There is abdominal tenderness. There is guarding. Musculoskeletal: Right lower leg: +2 edema Left lower leg: +2 edema Skin: General: Skin is warm and dry. Coloration: Skin is not jaundiced. Findings: Abdominal incision, not visualized Neurological: General: Psychiatric: Mood and Affect: Laboratory data: Results from last 7 days Lab Units 03/16/25 0304 03/15/25 0246 03/14/25 0234 WBC x10E9/L 9.1 9.6 6.4 HEMOGLOBIN g/dL 9.5* 11.6* 11.0* HEMATOCRIT % 29.8* 36.5 34.3* PLATELETS X10E9/L 169 185 147* MCV fL 83 82 82 Results from last 7 days Lab Units 03/16/25 0304 03/15/25 0246 03/14/25 0234 03/13/25 0154 03/12/25 0205 03/11/25 0210 03/10/25 2030 PROTIME sec 13.2 13.0 14.2* < > 13.5* 13.4* -- INR 1.2 1.1 1.3* < > 1.2 1.2 -- APTT sec -- -- -- -- 48* 58* 55* < > = values in this interval not displayed. Results from last 7 days Lab Units 03/16/25 0410 03/16/25 0304 03/15/25 2231 09/13/203903/15/25 1356 03/15/25 0910 03/15/25 0909 03/15/25 0246 03/14/25 0820 03/14/25 0234 03/09/25 1549 03/09/25 1041 SODIUM mmol/L -- 141 140 -- 142 144 -- 145 < > 148* < > 139 POTASSIUM mmol/L -- 3.8 3.9 -- 3.4* 3.9 -- 4.1 < > 3.6 < > 4.9 CHLORIDE mmol/L -- 107 108 -- 109 111* -- 109 < > 108 < > 109 CO2 mmol/L -- 26 26 -- 29 27 -- 28 < > 35* < > 23 BUN mg/dL -- 13 13 -- 13 13 -- 13 < > 13 < > 30* CREATININE mg/dL -- 0.37* 0.39* -- 0.44 0.43 -- 0.45 < > 0.46 < > 1.09* CALCIUM mg/dL -- 7.5* 7.3* -- 7.3* 7.2* -- 7.7* < > 7.5* < > 7.8* ALK PHOS U/L -- -- -- -- -- 235* -- -- -- -- -- 38* ALT U/L -- -- -- -- -- 16 -- -- -- -- -- 23 AST U/L -- -- -- -- -- 22 -- -- -- -- -- 33 BEDSIDE GLUCOSE mg/dL 81 -- -- < > -- -- < > -- < > -- < > -- GLUCOSE mg/dL -- 77 93 -- 123* 142* -- 118* < > 126* < > 114* INR -- 1.2 -- -- -- -- -- 1.1 -- 1.3* < > -- MAGNESIUM mg/dL -- 1.8 -- -- -- -- -- 2.0 -- 2.1 < > 2.4 < > = values in this interval not displayed. VITAMIN B12: Lab Results Component Value Date [id number] 110 (L) 02/26/2025 FOLATE: Lab Results Component Value Date FOLATE 3.3 (L) 02/26/2025 IRON: Lab Results Component Value Date IRON 12 (L) 02/26/2025 TIBC 321 02/26/2025 FERRITIN 78 02/26/2025 Medications: acetaminophen, 650 mg, oral, Q6H diphenoxylate-atropine, 1 tablet, oral, 4x Daily folic acid, 1 mg, nasogastric, Daily insulin lispro, 2-10 Units, subcutaneous, Q6H lidocaine, 1 patch, transdermal, Daily megestroL, 60 mg, oral, 4x Daily pantoprazole, 40 mg, oral, QAM AC OR pantoprazole, 40 mg, intravenous, QAM AC * London Merino MD - 2025 7:13 AM EDT Images from the original note were not included. Colorectal Surgery Daily Progress Note Patient Name: Caren Suarez Admit Date: 02/25/2025 Length of Stay: 19 Days Admitting Physician: Deena Branch MD Subjective: Patient is postoperative day 9 from exploratory laparotomy, total colectomy, left in discontinuity,and BSO and post operative day 7 from abdominal washout, end ileostomy creation, and abdominal closure. No acute events overnight. Her right IJ central line was removed yesterday. She denies nausea and vomiting. Her pain is well-controlled. Tube feeds being advanced Q12 hours, on clear liquid diet without much intake. Objective: Vitals: 03/16/25 0600 BP: 134/54 Pulse: 66 Resp: 21 Temp: SpO2: Temp: [36.6 ??C (97.9 ??F)-36.8 ??C (98.2 ??F)] 36.8 ??C (98.2 ??F) Pulse: [64-110] 66 Resp: [16-31] 21 BP: (115-171)/(48-73) 134/54 FiO2 (%): [28 %] 28 % SpO2: [95 %-100 %] 100 % O2 Device: Nasal cannula O2 Flow Rate (L/min): [2 L/min-4 L/min] 2 L/min Allergies Allergen Reactions Penicillin Intake/Output last 3 shifts: I/O last 3 completed shifts: In: 660 [NG/GT:660] Out: 7190 [Urine:2570; Stool:4350] Intake/Output this shift: No intake/output data recorded. Dietary Orders (From admission, onward) Start Ordered 03/15/25 1329 Adult diet Clear Liquid Diet effective now Question: Diet Type: Answer: Clear Liquid 03/15/25 1329 03/15/25 1314 Adult nutrition supplements Continuous Question Answer Comment Diet Type or Consistency: Clear Liquid Select Supplement: Clear Liquid Supplement Frequency: TID 03/15/25 1313 Physical Exam Physical Exam Constitutional: Comments: +NG Cardiovascular: Rate and Rhythm: Regular rhythm. Pulmonary: Effort: Pulmonary effort is normal. Abdominal: General: There is distension (Mild). Palpations: Abdomen is soft. Tenderness: There is no abdominal tenderness. There is no guarding or rebound. Comments: Wound vac in place. Stoma pink, brown liquid stool noted in ostomy bag Neurological: General: No focal deficit present. Mental Status: She is alert and easily aroused. 24 hour urine output: 2150 mL 24 hour wound VAC output: 0 mL 24 hour ileostomy output: 2250 mL Laboratory Data: Latest Reference Range & Units 03/11/25 02:10 03/11/25 16:40 03/12/25 02:05 03/13/25 01:54 03/14/25 02:34 White Blood Cells 4 - 11 x10E9/L 8.3 5.9 5.5 6.4 RBC count 3.8 - 5.2 X10E12/L 3.75 (L) 3.85 3.97 4.17 Hemoglobin 11.7 - 15.5 g/dL 10.1 (L) 10.2 (L) 10.2 (L) 10.4 (L) 11.0 (L) Hematocrit 35 - 47 % 30.2 (L) 31.2 (L) 31.2 (L) 32.5 (L) 34.3 (L) MCV 80 - 100 fL 80 81 82 82 MCH 27 - 34 pg 26.8 (L) 26.4 (L) 26.1 (L) 26.4 (L) MPV 7 - 12 fL 8.2 8.3 8.3 8.3 MCHC 32 - 36 g/dL 33.4 32.6 31.9 (L) 32.1 RDW 11.5 - 15 % 26.6 (H) 26.7 (H) 27.6 (H) 26.7 (H) Platelets 150 - 450 X10E9/L 89 (L) 92 (L) 105 (L) 147 (L) (L): Data is abnormally low (H): Data is abnormally high Latest Reference Range & Units 03/13/25 01:53 03/13/25 09:33 03/13/25 18:14 03/14/25 02:34 Sodium 134 - 146 mmol/L 147 (H) 148 (H) Potassium 3.5 - 5.0 mmol/L 3.1 (L) 3.5 4.2 3.6 Chloride 98 - 109 mmol/L 106 108 CARBON DIOXIDE 22 - 32 mmol/L 34 (H) 35 (H) Glucose 65 - 99 mg/dL 120 (H) 126 (H) Creatinine 0.40 - 1.00 mg/dL 0.64 0.46 BUN 5 - 27 mg/dL 16 13 (H): Data is abnormally high (L): Data is abnormally low Component Latest Ref Rng 03/14/2025 Phosphorus 2.4 - 4.9 mg/dL 1.8 (L) Lab Results Component Value Date INR 1.2 2025 INR 1.1 03/15/2025 INR 1.3 (H) 03/14/2025 PROTIME 13.2 2025 PROTIME 13.0 03/15/2025 PROTIME 14.2 (H) 03/14/2025 acetaminophen, 650 mg, oral, Q6H diphenoxylate-atropine, 1 tablet, oral, 4x Daily folic acid, 1 mg, nasogastric, Daily insulin lispro, 2-10 Units, subcutaneous, Q6H lidocaine, 1 patch, transdermal, Daily megestroL, 60 mg, oral, 4x Daily pantoprazole, 40 mg, oral, QAM AC OR pantoprazole, 40 mg, intravenous, QAM AC calcium gluconate OR calcium gluconate OR calcium gluconate dextrose dextrose 5 % in water dextrose 50 % in water (D50W) glucagon (human recombinant) heparin (porcine) hydrALAZINE magnesium sulfate OR magnesium sulfate methocarbamoL ondansetron OR ondansetron ODT oxyCODONE OR oxyCODONE potassium chloride OR potassium chloride potassium chloride in water OR potassium chloride in water sodium phosphate IV OR sodium phosphate IV - central line OR sod phos di, mono-K phos mono sodium chloride sodium chloride sodium chloride 0.9 % Imaging: X-ray chest 1 view CLINICAL HISTORY: Postextubation Comparison: 03/12/2025 Views: 1 view FINDINGS: * NG tube courses below GE junction. Double-lumen catheter overlies SVC. Lower lobe atelectasis andsmall effusions. No pneumothorax. Subcutaneous gas slightly decreased overlying left chest as compared to previous exam. IMPRESSION: * No significant change Finalized by Jb Cifuentes MD on 03/13/2025 7:02 AM Assessment: Caren Suarez is a 70 y.o. 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 Patient's surgery was complicated by obstructive shock and cardiac collapse resulting in need for ACLS. [facility] Patient subsequently went for 2nd loop laparotomy, fascial closure, ileostomy creation on 03/09/2025. 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 2.2 cm right interpolar renal mass concerning for RCC Right-sided PE without heart strain Left pneumothorax, resolved, chest tube out Multiple DVT Pulmonary nodules likely metastasis Obstructive shock from PE now off vasopressors Status post cardiac arrest intraoperatively Acute blood loss anemia, Hgb up to 11 coagulopathy, improving Thrombocytopenia, stable Metabolic acidosis Acute respiratory failure requiring mechanical ventilation, now extubated VRE UTI, no abx indicated for now per ID Peritonitis diagnosed on paracentesis 02/28/25, with complete treatment, now on empiric antibiotics Plan: Suggest continuation of tube feeds until adequate PO intake Continue appetite stimulant Refeeding precautions given electrolyte derangement Continue heparin, not ready for DOAC yet Vascular medicine recommended Eliquis once closer to discharge date 5 mg b.i.d. without induction dose, they signed off Appreciate Infectious Disease recommendations - antibiotics were completed and they are monitoring her off antibiotics Incentive spirometry 10 x per hour Wound care, wound vac per ET Appreciate nephrology recommendations - continue D5W at 50 cc/hr, albumin infusion, gave Lasix 20 mg IV once yesterday Appreciate oncology recommendations Appreciate palliative medicine assistance with goals of care in regards to her cancer - patient chose DNR CCA but okay with intubation and was encouraged to complete POA paperwork and living will Appreciate remainder of care per critical care team Monitor thrombocytopenia and transfuse platelets if active bleeding Urology was consulted for urinary retention - appreciate recommendations London Merino MD PGY-1 General Surgery 03/16/25 Colorectal Surgery 6a - 6p Pager: [phone] 6p - 6a Pager: [phone] Cosigned by Reyna Brewer MD at 2025 11:46 AM EDT Associated attestation - Reyna Brewer MD - 2025 11:46 AM EDT Attending Attestation: I saw the patient. I performed the critical/fuentes portions of the service. I was directly involved inthe management and treatment plan of the patient. I reviewed the resident's note. Additional Notes/Findings: She is tolerating clears in his her ileostomy output is decreasing. Plan will be to advance to fullliquids. * Ashok Hwang DO - 2025 7:09 AM EDT SICU Critical Care Progress Note Patient - Caren Suarez Age - 70 y.o. - 1955 Date of Admission - 02/25/2025 5:24 PM Hospital Day: 19 day(s) Overnight events: Pt examined at bedside this AM, ALBARO, SOFI. AAOx3 History of Present Illness: Caren Suarez is a 69 y.o. female with past medical history of DVT, HTN, who was admitted to [facility] after a CT A/P at an OSH demonstrated large partially solid cystic lesions. At that time she was found to have multiple DVTs and PEs. She was transferred to [facility] for a higher level of care. On arrival, her DVTs were being treated with heparin. Colorectal surgery was consulted on 03/07 for possible bowel obstruction. At that time a CT A/P demonstrated colonic dilation with transition at the sigmoid junction. There is concern for acute malignant obstruction for known mucinous adenocarcinoma with colorectal origin. After stabilization of the patient's INR with FFP on 03/07, the decisionwas made to take her to the operating room as a joint case between Colorectal on [employer] Specialist/Onc. At the beginning of the case, patient initially desaturated prior to incision. It was believed thatthis was due to the significant malignant ascites compressing the lungs. Decision was made to proceed with the case, and after decompression the patient's respiratory status significantly improved. The patient later went into cardiac arrest within the operating room and a code was initiated. Compressions were begun, epi was administered. After 2 rounds of compressions ROSC was obtained. ABThera was placed and the patient was transferred to the surgical ICU intubated and sedated. 03/09: OR for end ileostomy, fascia closed, wound vac 03/12: Extubated + CT removal Physical Exam: Vital Signs: BP 134/54 Pulse 66 Temp 36.8 ??C (98.2 ??F) (Oral) Resp 21 Ht 157.5 cm (5' 2.01 ) Wt 85.5 kg (188 lb 7.9 oz) SpO2 100% BMI 34.47 kg/m?? General appearance: alert, appears stated age, and cooperative HEENT: Normocephalic, without obvious abnormality, atraumatic Heart: regular rate and rhythm, S1, S2 normal, no murmur, click, rub or gallop Lungs: clear to auscultation bilaterally, no rales rhonchi or wheezing Abdomen: Soft, non-tender, non-distended, ostomy bag in place w/ midline incision wound vac Extremities: extremities normal, atraumatic, no cyanosis or edema Skin: Skin color, texture, turgor normal. No rashes or lesions Neurologic: Alert and oriented x3 Intake/Output Summary (Last 24 hours) at 2025 0709 Last data filed at 2025 0530 Gross per 24 hour Intake 30 ml Output 4090 ml Net -4060 ml Breathing support O2 Device: Nasal cannula Settings Vent Mode: CPAP FiO2 (%): 28 % Resp Rate (Set): 20 Avea Vt (Set, L): 0.4 Liter PEEP/CPAP (cm H2O): 8 cm H20 Insp Time (sec): 0.92 sec Trigger Sensitivity Flow (L/min): 1 L/min Trigger Sensitivity Pressure (cm H2O): 3 cm H2O Humidification: Heat and moisture exchanger Invasive Hemodynamic [place] Results from last 3 days Lab Units 03/16/25 0304 03/15/25 2231 03/15/25 1356 03/15/25 0910 03/15/25 0246 03/14/25 2032 03/14/25 1430 03/14/25 0234 03/13/25 1814 03/13/25 0933 BUN mg/dL 13 13 13 13 13 13 13 13 -- -- CREATININE mg/dL 0.37* 0.39* 0.44 0.43 0.45 0.49 0.51 0.46 -- -- POTASSIUM mmol/L 3.8 3.9 3.4* 3.9 4.1 3.7 3.9 3.8 3.6 4.2 3.5 CO2 mmol/L 26 26 29 27 28 30 31 35* -- -- CHLORIDE mmol/L 107 108 109 111* 109 108 108 108 -- -- MAGNESIUM mg/dL 1.8 -- -- -- 2.0 -- -- 2.1 -- 2.3 AST U/L -- -- -- 22 -- -- -- -- -- -- ALT U/L -- -- -- 16 -- -- -- -- -- -- ALK PHOS U/L -- -- -- 235* -- -- -- -- -- -- Results from last 3 days Lab Units 03/16/25 0304 03/15/25 0246 03/14/25 0234 INR 1.2 1.1 1.3* PROTIME sec 13.2 13.0 14.2* Results from last 3 days Lab Units 03/16/25 0304 03/15/25 0246 03/14/25 0234 WBC x10E9/L 9.1 9.6 6.4 HEMOGLOBIN g/dL 9.5* 11.6* 11.0* HEMATOCRIT % 29.8* 36.5 34.3* PLATELETS X10E9/L 169 185 147* MCV fL 83 82 82 MCH pg 26.4* 26.3* 26.4* MCHC g/dL 32.0 32.0 32.1 RDW % 27.3* 27.4* 26.7* Microbiology Results No results found for the last 168 hours. Glucose Results from last 7 days Lab Units 03/16/25 0410 03/16/25 0304 03/15/25 22303/15/25 2040 03/15/25 1356 03/15/25 0910 03/15/25 0909 03/15/25 0246 03/14/25 2032 03/14/25 1430 03/14/25 1415 BEDSIDE GLUCOSE mg/dL 81 -- -- 108* -- -- 145* -- 131* -- 130* GLUCOSE mg/dL -- 77 93 -- 123* 142* -- 118* 125* 120* -- Medications Scheduled: acetaminophen, 650 mg, oral, Q6H diphenoxylate-atropine, 1 tablet, oral, 4x Daily folic acid, 1 mg, nasogastric, Daily insulin lispro, 2-10 Units, subcutaneous, Q6H lidocaine, 1 patch, transdermal, Daily megestroL, 60 mg, oral, 4x Daily pantoprazole, 40 mg, oral, QAM AC OR pantoprazole, 40 mg, intravenous, QAM AC Infusions: dextrose 5 % in water, 100 mL/hr dextrose 5 % in water, 50 mL/hr, Last Rate: 50 mL/hr (03/16/25 0414) heparin, 300-3,500 Units/hr, Last Rate: 1,050 Units/hr (03/15/25 1017) sodium chloride 0.9 %, 20 mL/hr, Last Rate: 50 mL/hr (03/11/25 0523) sodium chloride 0.9 %, 3 mL/hr, Last Rate: 3 mL/hr (03/14/25 0614) As Needed: calcium gluconate OR calcium gluconate OR calcium gluconate dextrose dextrose 5 % in water dextrose 50 % in water (D50W) glucagon (human recombinant) heparin (porcine) hydrALAZINE magnesium sulfate OR magnesium sulfate methocarbamoL ondansetron OR ondansetron ODT oxyCODONE OR oxyCODONE potassium chloride OR potassium chloride potassium chloride in water OR potassium chloride in water sodium phosphate IV OR sodium phosphate IV - central line OR sod phos di, mono-K phos mono sodium chloride sodium chloride sodium chloride 0.9 % ACTIVE PROBLEM LIST: S/p cardiac arrest Malignant bowel obstruction s/p total colectomy and bilateral salpingo-oophorectomy Pulmonary embolism Multiple DVT Blood loss anemia Acute Kidney Injury w/ concern for acute tubular necrosis Malignant Colorectal Cancer Bacterial Peritonitis Ovarian Cystic Lesion ASSESSMENT/PLAN: Caren Suarez is a 69 y.o. female who is s/p total colectomy and bilateral salpingo-oophorectomy for malignant bowel obstruction for known mucinous adenocarcinoma (03/07) and s/p ex lap ileostomy creation, SBR, and abdominal wall closure (03/09). 1. Neuro S/p cardiac arrest CT Head without contrast: No acute intracranial process. Hospital Meds: Sedation: None Analgesia: scheduled Tylenol, lidocaine patch, Roxicodone PRN Other: n/a Home Meds: N/a 2. Cardio PMHx/PSHx: HTN, previous DVT Hemodynamics: Maintain MAP >65 RRR Pressors: None Hospital meds: IV heparin drip Home meds: None 3. Resp PMHx/PSHx: none pulmonary embolism Breathing Support: 2 L NC Bronchopulmonary hygiene, encourage IS as able Hospital meds: None Home meds: None IS: 750cc 4. GI Malignant bowel obstruction s/p total colectomy and bilateral salpingo-oophorectomy Status post total colectomy, left in discontinuity, ABThera in place 03/07/25 Status post 2nd look and end ileostomy creation, wound vac in place 03/09/25 NG Tube: 2L output Diet: CLD. TF until adequate PO intake Bowel Function: Monitor - liquid stool output Hospital Meds: Protonix, megace Home Meds: None known 5. Renal Lab Results Component Value Date SODIUM 141 2025 SODIUM 140 03/15/2025 SODIUM 142 03/15/2025 CL 107 2025 CL 108 03/15/2025 CL 109 03/15/2025 K 3.8 2025 K 3.9 03/15/2025 K 3.4 (L) 03/15/2025 CO2 26 2025 CO2 26 03/15/2025 CO2 29 03/15/2025 Elyte replacement PRN Intake/Output Summary (Last 24 hours) at 2025 0709 Last data filed at 2025 0530 Gross per 24 hour Intake 30 ml Output 4090 ml Net -4060 ml TASHA w/ concern for acute tubular necrosis - nephrology consult 03/09/25 - Nephrology consulted Lasix 40mg IV BID completed 03/12, strict ins and outs, bladder scan q12 # Urinary retention - removed camara 03/13, minimal to no UOP. Straight cath 2x after bladder scan >400 mL - placed camara back 03/14, consulted urology by CRS IVF: D5 @ 50cc/hr 24h UOP: 2L, 2L wound vac 24h net: -4L since admission: -6.8L Hospital meds: none PMHx: none Home meds: none 6. Heme Lab Results Component Value Date HGB 9.5 (L) 2025 HGB 11.6 (L) 03/15/2025 HGB 11.0 (L) 03/14/2025 PLT 169 2025 PLT 185 03/15/2025 PLT 147 (L) 03/14/2025 Lab Results Component Value Date INR 1.2 2025 INR 1.1 03/15/2025 INR 1.3 (H) 03/14/2025 Type and Screen: A neg Blood Products Administered: 03/08: 3u pRBC + 1u FFP 9/5: 2u FFP Will continue to monitor Hgb and transfuse PRN HGB: 11.6>9.5 7. ID Tmax/24H: Temp (24hrs), Av.7 ??C (98.1 ??F), Min:36.6 ??C (97.9 ??F), Max:36.8 ??C (98.2 ??F) Lab Results Component Value Date WBC 9.1 2025 WBC 9.6 03/15/2025 WBC 6.4 03/14/2025 Bacterial Peritonitis - ovarian cystic lesion ID on board S/p rocephin/flagyl 03/12 Ucx +VRE 8. Endo Lab Results Component Value Date GLU 81 2025 GLU 77 2025 GLU 93 03/15/2025 Maintain BG <180 mg/dL SSI PRN PMHx: none Home meds: none 9. MS PT/OT when able - Recommend moderate intensity rehab, Tolerate 1-2 hrs of therapy 3-5 days/wk 10. Lines/Tubes PIV Prophylaxis DVT: SCD, heparin GI: protonix Resp: none Code Status: DNR Comfort Care Arrest (DNR-CCA) [place] Dispo: Critical, stay in SICU Ashok Hwang DO PGY2 03/16/25 7:09 AM Cosigned by Orion Damico MD at 2025 7:49 AM EDT Associated attestation - Orion Damico MD - 2025 7:49 AM EDT Attending Attestation: I saw the patient. I participated and was physically present during the critical/fuentes portions of the service. I was directly involved in the management and treatment plan of the patient. I reviewed the resident's note. Additional Notes/Findings: <<<<<<<<<<<<<<<<<< Surgical Critical Care Attending >>>>>>>>>>>>>>>>>>>>>>>> I have seen and evaluated the patient, and have also reviewed the history above. Patient is critically ill and has a high probability of imminent or life- threatening deterioration, that requires highcomplexity decision making and failure to do so may cause further life threatening deterioration. Ihave repeated and performed the fuentes portions of the physical exam and concur with the resident's/advanced practice provider findings with the exception of the below additions. I have reviewed all pertinent laboratory findings and imaging reports/films. We have discussed the patient's status and theappropriate treatment options/plan on the day of the encounter. I agree with the plan as noted above except for changes below. Critical care time spent with the patient today = 31 minutes. Diagnoses: Acute respiratory failure with hypoxia Cardiac arrest Acute blood loss anemia Hypocalcemia Pulmonary embolism DVT TASHA Hypoalbuminemia Sepsis hypokalemia Plan: Might need BIPAP today. Im concerned about her respiratory effort. 750mL on Incentive spirometry. Slightly improved from yesterday PTOT On ceftriaxone and flagyl. ID involved. Nephrology following. Creatinine normal. Appreciate their help. Hypernatremia today. Increase free water I and O -4L/24 hours and -6.8L/HS Camara replaced. Do not need to replace ileostomy output at this time Will start lomotil low dose BID. Will need to increase today to help decrease the [id number] output HgB drop. WIll recheck today Orion Damico MD, FACS [facility] General Surgeons Minimally Invasive Robotic Surgery Surgical Critical Care Trauma Office: [phone] Please feel free to call with questions at anytime. * Emanuel Rubio MD - 03/15/2025 12:02 PM EDT Images from the original note were not included. [facility] Artur Small, ASSISTANT DIRECTOR OF RESIDENCE LIFE Nephrology Consultation Note Patient Name: Caren Suarez : 1955 Date of Service: 03/15/25 PCP: Riya Diego MD Attending Physician: Ghassan Castillo MD Admission Date: 02/25/2025 Length of stay: LOS: 18 days Chief complaint. Hypernatremia and TASHA Reason for Consult: Acute Kidney Injury Assessment and Plan. 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 She reports having a hard time breathing and a cough that went away ( she has had a hard time breathing and had a cough but it went away ). She had been treated by her PCP with steroids and antibiotics without improvement. An outpatient CT abdomen/pelvis on 02/24/2025 revealed a large right adnexal mass, a solid right renal lesion, and likely metastases to the lungs and abdomen. Venous duplex showed bilateral DVTs. She was transferred from [place] to [facility] for further evaluation and management. In the emergency department, she was started on a heparin drip. Workup upon admission included a CTA chest on 02/25/2025, which confirmed moderate right-sided pulmonary emboli without right heart strain. She is currently being treated for a urinary tract infection and bacterial peritonitis with IV Rocephin and Flagyl, with Infectious Disease on board. Nephrology consultation was requested for acute kidney injury. Assessment Acute Kidney Injury, likely multifactorial with hemodynamic and prerenal components, with concern for acute tubular necrosis (ATN). The TASHA is in the setting of sepsis, treatment for bacterial peritonitis, and obs uropathy , There was contrast exposure on 02/24/2025. Cr has improved. Right hydronephrosis, 2.2 cm right renal mass lesion Urology evaluated the patient Mild hypernatremia on initial evaluation. Hypophosphatemia. Metabolic acidosis on initial evaluation. Volume Status: Euvolemic , possibly on low side Hypertension: Stable, though has been on the higher side. Hemodynamics: Echocardiogram on 02/26/2025 showed a normal LVEF of 60-65% with Grade I diastolic dysfunction and no evidence of right heart strain. Anemia Most recent hemoglobin is 10.8 g/dL. Sepsis secondary to bacterial peritonitis and UTI. 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 ? Rectal ca Acute pulmonary embolism and bilateral DVT. Malignant Bowel obstruction , patient is status post exploratory laparotomy, total colectomy, left in discontinuity, and BSO on 03/07/2025 , repeat Second Look laparotomy and ileostomy creation on 03/09/2025 Cardiac arrest intraoperatively, 03/07/2025 needing ACLS. Ventilator dependent respiratory failure postoperatively Plan Continue D5W at 50 cc/hr for free water supplement Albumin infusion for third spacing from hypoalbuminemia, will check liver panel may need daily infusion Lasix 20 mg IV once for anasarca Replace phosphorus per protocol. Will check vitamin D level. Strict ins and outs / accurate documentation of urine out put / daily weights and Bladder scan Q12 Avoid nephrotoxins, avoid contrast exposure unless absolutely necessary, avoid hemodynamic instability Dose all medications to GFR Monitor Renal Chem panel daily in AM Thank you for this consultation, we will follow along with you regarding care of this patient whilethe patient is here in the hospital, please call if you have any questions or concerns. EMANUEL RUBIO MD on 03/15/2025 at 12:02 PM [place] [facility] [email or web address] Schedule : See Epic on-call schedule for [facility] ( [facility] ) Nephrology Working Hours : Epic chat during working hours, if no response please use on- call physician reach out as below After Hours : Answering service contact : [phone] Office Phone number: [phone] Subjective Patient seen at bedside, she is sitting in chair, she is having some nausea and vomiting, edema is much better. No worsening in the respiratory status Minimal oral intake Na is borderline Discussed with surgical team will defer IVF bolus and give albumin to aid with anasarca along with Lasix PRN Past Medical History: Diagnosis Date Deep vein thrombosis (CMS-HCC) Past Surgical History: Procedure Laterality Date APPLICATION WOUND VAC MIDSECTION N/A 03/09/2025 Performed by Ghassan Castillo MD at [facility] CLOSURE WOUND ABDOMEN N/A 03/09/2025 Performed by Ghassan Castillo MD at [facility] ILEOSTOMY CREATION N/A 03/09/2025 Performed by Ghassan Castillo MD at [facility] LAPAROTOMY EXPLORATORY N/A 03/09/2025 Performed by Ghassan Castillo MD at [facility] LAPAROTOMY EXPLORATORY N/A 03/07/2025 Performed by Ghassan Castillo MD at [facility] RESECTION BOWEL SMALL N/A 03/09/2025 Performed by Ghassan Castillo MD at [facility] SALPINGO-OOPHORECTOMY Bilateral 03/07/2025 Performed by Faith Celis MD at [facility] TOTAL COLECTOMY N/A 03/07/2025 Performed by Ghassan Castillo MD at [facility] Family History Problem Relation Age of Onset Breast cancer Neg Hx Social History Socioeconomic History Marital status: Single Spouse name: Not on file Number of children: Not on file Years of education: Not on file Highest education level: Not on file Occupational History Not on file Tobacco Use Smoking status: Former Types: Cigarettes Smokeless tobacco: Never Substance and Sexual Activity Alcohol use: Never Drug use: Never Sexual activity: Not on file Other Topics Concern Not on file Social History Narrative Not on file Social Drivers of Health Financial Resource Strain: Not on file Food Insecurity: No Food Insecurity (02/25/2025) Hunger Screening Food Insecurity - Worry: Never True Food Insecurity - Inability: Never True Transportation Needs: No Transportation Needs (02/25/2025) PRAPARE - Transportation Lack of Transportation (Medical): No Lack of Transportation (Non-Medical): No Physical Activity: Not on file Stress: Not on file Social Connections: Not on file Interpersonal Safety: Not At Risk (02/25/2025) Humiliation, Afraid, Rape, and Kick questionnaire Fear of Current or Ex-Partner: No Emotionally Abused: No Physically Abused: No Sexually Abused: No Housing Instability: Low Risk (02/25/2025) Housing Instability Housing Instability: No Prior to Admission medications Medication Sig Start Date End Date Taking? Authorizing Provider apixaban (ELIQUIS) 5 mg tablet Take 2 tablets (10 mg total) by mouth 2 (two) times a day for 7 days, THEN 1 tablet (5 mg total) 2 (two) times a day for 30 days. 03/05/25 04/11/25 Eleni Harding APRN-ASSISTANT DIRECTOR OF [employer]ID[employer] LIFE Allergies Allergen Reactions Penicillin ROS: Constitutional: No fever, chills, lethargy, weakness and wt loss. Cardiac: No chest pain, dyspnea, orthopnea or PND. Chest: No cough, phlegm or wheezing. Abdomen: No nausea, no vomiting or diarrhea. : No hematuria, pyuria, dysuria or flank pain. Extremities: No swelling or joint pains. Physical Exam: VITALS BP 165/69 Pulse 94 Temp 36.6 ??C (97.9 ??F) (Oral) Resp 23 Ht 157.5 cm (5' 2.01 ) Wt 84.7kg (186 lb 11.7 oz) SpO2 100% BMI 34.14 kg/m?? Wt Readings from Last 3 Encounters: 03/15/25 84.7 kg (186 lb 11.7 oz) 02/24/25 74.4 kg (164 lb) BMI: Body mass index is 34.14 kg/m??. I/O (24 Hours) Intake/Output Summary (Last 24 hours) at 03/15/2025 1202 Last data filed at 03/15/2025 1100 Gross per 24 hour Intake 1098 ml Output 5825 ml Net -4727 ml General: Awake, alert, no acute distress HEENT: Atraumatic, normocephalic. Anicteric sclera. [place] and moist oral mucosa. Neck No JVD. Chest: Bilateral air entry, clear to auscultation, no wheezing, rhonchi or rales. Cardiovascular: RRR, S1S2, no murmur, rub or gallop. No lower extremity edema. Abdomen: Soft, status post surgery, ileostomy in place Musculoskeletal: No cyanosis or clubbing. Integumentary: [place], warm and dry. Free from rash or lesions. CARBIDE GRINDER: Examination grossly nonfocal Medications Scheduled Meds: acetaminophen, 650 mg, oral, Q6H folic acid, 1 mg, nasogastric, Daily insulin lispro, 2-10 Units, subcutaneous, Q6H lidocaine, 1 patch, transdermal, Daily pantoprazole, 40 mg, oral, QAM AC OR pantoprazole, 40 mg, intravenous, QAM AC sodium chloride, 10 mL, intravenous, Q8H AND sodium chloride, 10 mL, intravenous, PRN AND sodium chloride, 20 mL, intravenous, PRN Continuous Infusions: dextrose 5 % in water, 100 mL/hr dextrose 5 % in water, 50 mL/hr, Last Rate: 50 mL/hr (03/15/25 1013) heparin, 300-3,500 Units/hr, Last Rate: 1,050 Units/hr (03/15/25 1017) sodium chloride 0.9 %, 20 mL/hr, Last Rate: 50 mL/hr (03/11/25 0523) sodium chloride 0.9 %, 3 mL/hr, Last Rate: 3 mL/hr (03/14/25 0614) PRN Meds: calcium gluconate OR calcium gluconate OR calcium gluconate dextrose dextrose 5 % in water dextrose 50 % in water (D50W) glucagon (human recombinant) heparin (porcine) hydrALAZINE magnesium sulfate OR magnesium sulfate methocarbamoL ondansetron OR ondansetron ODT oxyCODONE OR oxyCODONE potassium chloride OR potassium chloride potassium chloride in water OR potassium chloride in water sodium phosphate IV OR sodium phosphate IV - central line OR sod phos di, mono-K phos mono sodium chloride sodium chloride sodium chloride AND sodium chloride AND sodium chloride sodium chloride 0.9 % Results Review Renal Chemistry Results from last 7 days Lab Units 03/15/25 0910 03/15/25 0246 03/14/25 2032 03/14/25 1430 03/14/25 0234 03/13/25 1814 03/13/25 1208 03/13/25 0933 03/13/25 0153 03/12/25 0804 03/12/25 0205 SODIUM mmol/L 144 145 145 146 148* -- -- -- 147* -- 144 POTASSIUM mmol/L 3.9 4.1 3.7 3.9 3.8 3.6 < > -- 3.5 3.1* < > 3.1* CHLORIDE mmol/L 111* 109 108 108 108 -- -- -- 106 -- 109 CO2 mmol/L 27 28 30 31 35* -- -- -- 34* -- 26 BUN mg/dL 13 -- -- -- 16 -- 22 CREATININE mg/dL 0.43 0.45 0.49 0.51 0.46 -- -- -- 0.64 -- 0.81 CALCIUM mg/dL 7.2* 7.7* 7.4* 7.6* 7.5* -- -- -- 7.4* -- 7.0* MAGNESIUM mg/dL -- 2.0 -- -- 2.1 -- -- 2.3 1.9 -- 1.8 PHOSPHORUS mg/dL -- 2.0* -- 2.0* 1.8* -- 2.6 3.0 2.1* -- 2.4 < > = values in this interval not displayed. Hepatic: Lab Results Component Value Date AST 33 03/09/2025 AST 108 (H) 03/08/2025 AST 21 02/24/2025 ALT 23 03/09/2025 ALT 33 (H) 03/08/2025 ALT 15 02/24/2025 ALKPHOS 38 (L) 03/09/2025 ALKPHOS 37 (L) 03/08/2025 ALKPHOS 105 02/24/2025 BNP Lab Results Component Value Date BNP 22 03/08/2025 BNP 34 03/06/2025 BNP 61 02/24/2025 CBC Results from last 7 days Lab Units 03/15/25 0246 03/14/25 0234 03/13/25 0154 03/12/25 0205 03/11/25 1640 03/11/25 0210 WBC x10E9/L 9.6 6.4 5.5 5.9 -- 8.3 HEMOGLOBIN g/dL 11.6* 11.0* 10.4* 10.2* 10.2* 10.1* HEMATOCRIT % 36.5 34.3* 32.5* 31.2* 31.2* 30.2* PLATELETS X10E9/L 185 147* 105* 92* -- 89* Results from last 7 days Lab Units 03/15/25 0910 03/15/25 0909 03/15/25 0246 03/14/252031 BEDSIDE GLUCOSE mg/dL -- 145* -- 131* GLUCOSE mg/dL 142* -- 118* 125* Urine Studies: Lab Results Component Value Date COLOR Yellow 03/06/2025 TURBIDITY Hazy (A) 03/06/2025 SPECIFICGRA 1.023 03/06/2025 NITRITE Negative 03/06/2025 PHURINE 6.0 03/06/2025 LEUKOCYTE Small (A) 03/06/2025 PROTEIN 50 mg/dL (A) 03/06/2025 KETONES 20 mg/dL (A) 03/06/2025 UROBILINOGEN <1.1 eu/dL 03/06/2025 BLOODHGB Large (A) 03/06/2025 Lab Results Component Value Date UPROCRTRAT 0.25 (H) 03/06/2025 Urine Sodium: No components found for: CRYSTAL Urine Potassium: No results found for: KUR Urine Chloride: No results found for: CLUR Urine Osmolarity: No components found for: OSMOU Urine Creatinine: No results found for: LABCREA Urine Eosinophils: No components found for: UEOS Urine Protein: No components found for: TPU Immunology Profile No results found for: PROTELECTR , SEDRATE , CRP , RF , ANASCREEN , ANTIDSDNA , C3 , C4 , ANCA , MYELOP , PROTEINASE3 , ANTIGLOMERU No results found for: HAV , HEPAIGM , HEPBIGM , HEPBCAB , HBEAG , HEPCAB SP: No results found for: SP C3:No results found for: C3 C4:No results found for: C4 MPO ANCA: No results found for: MPO PR3 ANCA: No components found for: PR3 hepatitis serologies ANTIGBM:No components found for: GBMABIGG HEPATITIS B SURFACE AG: No results found for: HEPBSAG HEPATITIS C AB: No results found for: HEPCAB Electrophoresis: SPEP:No results found for: PROT , LABALPH , LABBETA , PATH UPEP:No results found for: LABPE Anemia Profile Lab Results Component Value Date WBC 9.6 03/15/2025 WBC 6.4 03/14/2025 HGB 11.6 (L) 03/15/2025 HGB 11.0 (L) 03/14/2025 HCT 36.5 03/15/2025 HCT 34.3 (L) 03/14/2025 PLT 185 03/15/2025 PLT 147 (L) 03/14/2025 Lab Results Component Value Date IRON 12 (L) 02/26/2025 TIBC 321 02/26/2025 FERRITIN 78 02/26/2025 Bone Mineral Profile Lab Results Component Value Date CALCIUM 7.2 (L) 03/15/2025 Results from last 7 days Lab Units 03/15/25 0246 03/14/25 0234 03/13/25 0933 MAGNESIUM mg/dL 2.0 2.1 2.3 Echocardiogram: Echo complete W/O contrast Result Date: 02/26/2025 Left Ventricle: Left ventricle is small. Systolic function is normal with an ejection fraction of 60-65%. No segmental wall motion abnormalities. Grade I diastolic dysfunction (impaired relaxation) is present. Lateral E' is 11.70 cm/s. Medial E' is 7.94 cm/s. Right Ventricle: Right ventricular sizeappears normal. The right ventricular basal diameter is 22.0 mm. Systolic function is normal. Aortic Valve: There is trace to mild regurgitation. There is no evidence of aortic valve stenosis. Thank you for the consultation. Please do not hesitate to contact us for any further questions/concerns. We will continue to follow along with you. * Nuvia Koenig APRN-ASSISTANT DIRECTOR OF [employer]IDENCE LIFE - 03/15/2025 11:19 AM EDT Images from the original note were not included. Division of Infectious Diseases Progress note Please contact us via Cupple chat. 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 White count normalized she is on supplemental oxygen monitoring off antibiotics Intra operative cardiac arrest Acute respiratory failure Patient is extubated Vent management per critical care Urinary retention Positive urine culture Patient was retaining urine and camara place last week. Urine culture +enterococcus. Patient was asymptomatic No fever or leukocytosis. Low suspicion for uti at this time Monitor off treatment TASHA Renal mass concerning for RCC Right hydronephrosis Positive urine culture Urinary retention Urine culture +VRE. No urinary symptoms when culture obtained. No systemic signs of infection at this time. No indication for treatment. Urology and nephrology following Acute PE, with R heart strain Multiple DVT On heparin Subjective Interval History: Labs imaging and notes reviewed. Patient seen at the bedside white count 9.6. Camara was reinserted overnight nausea is improving Objective Physical Examination : BP 165/69 Pulse 88 Temp 36.8 ??C (98.3 ??F) (Axillary) Resp 22 Ht 157.5 cm (5' 2.01 ) Wt 84.7 kg (186 lb 11.7 oz) SpO2 99% BMI 34.14 kg/m?? Temperature Range: Temp: 36.8 ??C (98.3 ??F) Temp Av.7 ??C (98.1 ??F) Min: 36.4 ??C (97.6 ??F)Max: 36.9 ??C (98.5 ??F) CONSTITUTIONAL - no acute distress. NG to left nares SKIN - right IJ double-lumen CARDIOVASCULAR - RRR RESPIRATORY - Good effort; Lungs clear to auscultation bilaterally with no wheezes, rhonchi, or crackles GASTROINTESTINAL - midline abdominal wound with wound VAC in place MUSCULOSKELETAL - No erythema, swelling, or nodules of the joints NEUROLOGIC - bulk and tone normal no atrophy noted Laboratory data: I have independently reviewed the following labs: Results from last 7 days Lab Units 03/15/25 0246 03/14/25 0234 03/13/25 0154 03/09/25 1041 03/09/25 0332 WBC x10E9/L 9.6 6.4 5.5 < > 15.5* HEMOGLOBIN g/dL 11.6* 11.0* 10.4* < > 12.7 HEMATOCRIT % 36.5 34.3* 32.5* < > 39.3 MCV fL 82 82 82 < > 81 PLATELETS X10E9/L 185 147* 105* < > 155 EOS ABS MAN 10*3/uL -- -- -- -- 0.0 BASOS ABS MAN 10*3/uL -- -- -- -- 0.0 < > = values in this interval not displayed. Results from last 7 days Lab Units 03/15/25 0910 03/15/25 0246 03/14/25203103/09/25 1833 03/09/25 1041 SODIUM mmol/L 144 145 145 < > 139 POTASSIUM mmol/L 3.9 4.1 3.7 < > 4.9 CHLORIDE mmol/L 111* 109 108 < > 109 CO2 mmol/L 27 28 30 < > 23 BUN mg/dL 13 13 13 < > 30* CREATININE mg/dL 0.43 0.45 0.49 < > 1.09* CALCIUM mg/dL 7.2* 7.7* 7.4* < > 7.8* ALK PHOS U/L -- -- -- -- 38* ALT U/L -- -- -- -- 23 AST U/L -- -- -- -- 33 < > = values in this interval not displayed. Invalid input(s): GLUCOSEU , BILIRUBINU Imaging Studies: X-ray chest 1 view Result Date: 03/13/2025 CLINICAL HISTORY: Postextubation Comparison: 03/12/2025 Views: 1 view FINDINGS: * NG tube courses below GE junction. Double-lumen catheter overlies SVC. Lower lobe atelectasis and small effusions. No pneumothorax. Subcutaneous gas slightly decreased overlying left chest as compared to previous exam.IMPRESSION: * No significant change Finalized by Jb Cifuentes MD on 03/13/2025 7:02 AM X-ray chest 1 view Result Date: 03/12/2025 Single view chest History: Difficulty breathing, shortness of breath Comparison: 03/12/2025 Impression: Extubation. Unchanged right IJ catheter, gastric drainage tube. Removal left-sided chest tube. Persistent left body wall emphysema. No definite pneumothorax seen. Left greater than right bibasilaropacities, likely atelectasis. Nonenlarged heart. Finalized by Mingo Palmer MD on 03/12/2025 10:00 PM I have personally reviewed this study. Cultures: Microbiology Results No results found for the last 168 hours. Medications: acetaminophen, 650 mg, oral, Q6H folic acid, 1 mg, nasogastric, Daily insulin lispro, 2-10 Units, subcutaneous, Q6H lidocaine, 1 patch, transdermal, Daily pantoprazole, 40 mg, oral, QAM AC OR pantoprazole, 40 mg, intravenous, QAM AC sodium chloride, 10 mL, intravenous, Q8H AND sodium chloride, 10 mL, intravenous, PRN AND sodium chloride, 20 mL, intravenous, PRN This progress note was completed using a voice logistics project manager system. Every effort was made to ensure accuracy; however, inadvertent computerized logistics project manager errors may be present. Thank you for allowing us to participate in the care of this patient. Nuvia Koenig CNP I prefer to be contacted via cell phone at [phone] ELLIOTT Khan 03/15/25 4651 * Asim Arteaga MD - 03/15/2025 10:00 AM EDT Images from the original note were not included. Jr. Alejandre Emmett, M.D., Jr. Rebecca, Alex Duncan., Mat Benavides M.D., Dheeraj Hayes M.D., Geremias Zapata M.D., Francia Gonzalez M.D., Geremias Cristobal M.D., Shanae Saunders M.D. Hospital day: 18 Subjective: Urology reconsulted for acute urinary retention. Retained volume of 400 mL after straight catheterization he had a Camara catheter was subsequently placed for the patient. We were consulted previously for right-sided renal mass which was to be worked up as an outpatient,and again for a right-sided hydronephrosis likely from extrinsic compression from her pelvic mass. She is now status post exploratory laparotomy, total colectomy, salpingo- oophorectomy on 03/07/25 andsecond-look exploratory laparotomy, ileostomy creation, resection of small bowel, and closure of abdominal wound and placement of wound VAC on 03/09/25. She has a Camara catheter in place draining clear yellow urine. No acute urinary symptoms at this time. Kidney function has recovered since our previous evaluation, with a creatinine of 0.44 today. Weight: 84.7 kg (186 lb 11.7 oz) Patient Vitals for the past 24 hrs: BP Temp Temp src Pulse Resp SpO2 Weight 03/15/25 1529 -- -- -- 99 24 98 % -- 03/15/25 1519 -- -- -- 89 23 100 % -- 03/15/25 1211 171/65 -- -- -- -- -- -- 03/15/25 1138 -- -- -- 94 23 100 % -- 03/15/25 1130 -- -- -- 82 25 99 % -- 03/15/25 1100 165/69 36.6 ??C (97.9 ??F) Oral 88 22 99 % -- 03/15/25 1000 154/62 -- -- 87 19 -- -- 03/15/25 0900 137/72 -- -- 91 22 100 % -- 03/15/25 0815 -- -- -- 98 24 100 % -- 03/15/25 0806 -- -- -- 82 22 100 % -- 03/15/25 0800 -- -- -- 87 24 -- -- 03/15/25 0700 134/64 36.8 ??C (98.3 ??F) Axillary 89 24 -- -- 03/15/25 0600 138/49 -- -- 90 24 100 % -- 03/15/25 0500 117/70 -- -- 91 23 -- 84.7 kg (186 lb 11.7 oz) 03/15/25 0400 153/80 36.7 ??C (98 ??F) Oral 107 (!) 27 100 % -- 03/15/25 0300 124/69 -- -- 88 25 -- -- 03/15/25 0200 151/89 -- -- 89 (!) 26 100 % -- 03/15/25 0100 147/79 -- -- 82 23 -- -- 03/15/25 0000 148/64 36.6 ??C (97.9 ??F) Oral 87 21 100 % -- 03/14/25 2300 136/65 -- -- 79 24 -- -- 03/14/25 2200 147/72 -- -- 90 23 100 % -- 03/14/25 2100 118/69 -- -- 74 23 -- -- 03/14/252024 -- -- -- 80 24 100 % -- 03/14/252021 -- -- -- 81 22 100 % -- 03/14/25 2000 131/69 -- -- 79 24 100 % -- 03/14/25 1900 123/62 36.4 ??C (97.6 ??F) Oral 80 22 100 % -- 03/14/25 1800 145/72 -- -- 74 24 100 % -- 03/14/25 1700 141/68 -- -- 85 21 100 % -- 03/14/25 1600 122/65 -- -- 86 21 100 % -- Intake/Output Summary (Last 24 hours) at 03/15/2025 1550 Last data filed at 03/15/2025 1100 Gross per 24 hour Intake 1068 ml Output 4825 ml Net -3757 ml Results from last 7 days Lab Units 03/15/25 1356 03/15/25 0910 03/15/25 0909 03/15/25 0246 POTASSIUM mmol/L 3.4* 3.9 -- 4.1 CHLORIDE mmol/L 109 111* -- 109 CO2 mmol/L 29 27 -- 28 BUN mg/dL CREATININE mg/dL 0.44 0.43 -- 0.45 BEDSIDE GLUCOSE -- -- < > -- GLUCOSE mg/dL 123* 142* -- 118* CALCIUM mg/dL 7.3* 7.2* -- 7.7* < > = values in this interval not displayed. Results from last 7 days Lab Units 03/15/25 0246 03/14/25 0234 03/13/25 0154 WBC x10E9/L 9.6 6.4 5.5 HEMOGLOBIN g/dL 11.6* 11.0* 10.4* HEMATOCRIT % 36.5 34.3* 32.5* PLATELETS X10E9/L 185 147* 105* Lab Results Component Value Date SPECIFICGRA 1.023 03/06/2025 LEUKOCYTE Small (A) 03/06/2025 GLU 123 (H) 03/15/2025 UROBILINOGEN <1.1 eu/dL 03/06/2025 Additional Lab/culture results: Physical Exam: General: No acute distress CV: Regular rate and rhythm Respiratory: Nonlabored Abdomen: Nontender, nondistended. Wound VAC and stoma in place; No CVA or flank tenderness : Camara catheter in place draining clear yellow urine Interval Imaging Findings: CT abdomen and pelvis FINDINGS: Lack of intravenous contrast limits evaluation of the viscera and vessels. LOWER THORAX: Indeterminate bilateral lung base nodules. HEPATOBILIARY: No focal aggressive appearing hepatic lesions. No biliary ductal dilatation. Cholelithiasis. SPLEEN: Atrophic. PANCREAS: Grossly normal for technique. ADRENALS: No exophytic adrenal nodules. KIDNEYS/URETERS: Redemonstrated 2.2 cm right renal mass lesion. No obstructive renal calculus. No collecting system dilatation. Bladder: Underdistended, limiting evaluation. PELVIC ORGANS: Similar appearance of a 20 cm cystic pelvic lesion, reportedly rectal origin adenocarcinoma. GI TRACT: Colonic dilatation with transition at the sigmoid junction. LYMPH NODES: 1.1 cm mesorectal node versus pelvic wall deposit. VESSELS: No abdominal aortic aneurysm. BONES AND SOFT TISSUES: Few sclerotic pelvic lesions. PERITONEUM/RETROPERITONEUM: Small volume free fluid. Multiple pelvic wall deposits including (series 2) -Image 56, 2.7 x 2.0 cm, left pelvic sidewall, -Image 48, 1.3 cm, left anterior peritoneum -Image 28, 1.4 x 1.0 cm, left anterior peritoneum IMPRESSION: * Colonic dilatation with transition at the sigmoid junction. Concern for obstruction from the known large rectal mass vs multicentric colorectal carcinoma. Postprocedural ileus or colonic pseudoobstruction could appear similarly in the appropriate clinical setting. * Similar appearance of a 20 cm cystic pelvic lesion, recently characterized as rectal adenocarcinoma. * Peritoneal carcinomatosis. * Indeterminate bilateral lung base pulmonary nodules, presumed metastatic. * Few sclerotic pelvic lesions may reflect additional osseous metastases. * Mild right hydroureteronephrosis, likely secondary to pelvic mass effect on the ureter. * Redemonstrated 2.2 cm right interpolar renal mass lesion concerning for RCC. Impression: 69-year-old female with pelvic mass, right hydronephrosis likely from extrinsic compression 2.2 cm right interpolar renal mass concerning for renal cell carcinoma Malignant bowel obstruction s/p total colectomy and bilateral salpingo-oophorectomy UA on 03/06/25 concerning for UTI, received Rocephin and Flagyl during her course of hospitalization Now with urinary retention status post Camara placement Labs: 03/15/25: WBC 9.6, hemoglobin 11.6, creatinine 0.45 Plan: No acute urological intervention. Maintain Camara catheter until her overall clinical condition improves, trial of void can be attempted at that time. Outpatient follow up with Urology regarding the 2.2 cm right interpolar renal lesion concerning forRCC Urology will sign off at this time, please feel free to reach out coude questions or concerns Asim Arteaga MD PGY2 Urology Resident 03/15/25 Cosigned by Chaitanya De León MD at 03/15/2025 4:11 PM EDT Associated attestation - Chaitanya De León MD - 03/15/2025 4:11 PM EDT Attending Attestation: I, Chaitanya De León MD, the patient. I performed the critical/fuentes portions of the service. I was directly involved in the management and treatment plan of the patient. I reviewed the resident's note. Additional Notes/Findings: Void trial prior to discharge Outpatient f/u for renal mass Chaitanya De León Jr, MD [facility] 03/15/25 4:11 PM * London Merino MD - 03/15/2025 6:50 AM EDT Images from the original note were not included. Colorectal Surgery Daily Progress Note Patient Name: Caren Suarez Admit Date: 02/25/2025 Length of Stay: 18 Days Admitting Physician: Deena Branch MD Subjective: Patient is postoperative day 8 from exploratory laparotomy, total colectomy, left in discontinuity,and BSO and post operative day 6 from abdominal washout, end ileostomy creation, and abdominal closure. Weaned off supplemental oxygen. Her Camara had to be reinserted overnight. She had a 400 mL of urineout at that time. She states that she vomited in the morning when she was moved but her nausea has improved when lying down. Tube feeds being advanced Q12 hours, on clear liquid diet without much intake. Objective: Vitals: 03/15/25 0600 BP: 138/49 Pulse: 90 Resp: 24 Temp: SpO2: 100% Temp: [36.4 ??C (97.5 ??F)-36.9 ??C (98.5 ??F)] 36.7 ??C (98 ??F) Pulse: [74-107] 90 Resp: [18-28] 24 BP: (117-153)/(49-95) 138/49 SpO2: [96 %-100 %] 100 % O2 Device: Nasal cannula O2 Flow Rate (L/min): [4 L/min] 4 L/min Allergies Allergen Reactions Penicillin Intake/Output last 3 shifts: I/O last 3 completed shifts: In: 1966.1 [I.V.:557.8; NG/GT:1057; IV Piggyback:351.3] Out: 3985 [Urine:1935; Drains:50; Stool:1900] Intake/Output this shift: I/O this shift: In: 430 [NG/GT:430] Out: 2740 [Urine:420; Stool:2100] Dietary Orders (From admission, onward) Start Ordered 03/14/25 1300 Free water 4 times daily Question Answer Comment Amount in mL 200 Tube Type: Nasogastric or Oral gastric feeding tube 03/14/25 1018 03/14/25 0730 Adult Diet Tray and Continuous Tube Feeding Clear Liquid; Tube feeding With Tray- Continuous; Nasogastric or Oral gastric feeding tube; Standard 1.5 kcal; 10; 10; Every 12 hours; 45 Diet effective now References: Formulary Card Question Answer Comment Diet Type: Clear Liquid Diet Type: Tube feeding With Tray- Continuous Tube Type: Nasogastric or Oral gastric feeding tube Tube Feeding Formula: Standard 1.5 kcal Tube Feeding Start Rate (mL/hour): 10 Increase Rate by (mL/hour): 10 Frequency of Rate increase: Every 12 hours Goal Rate (mL/hour): 45 03/14/25 0729 Physical Exam Physical Exam Constitutional: Comments: +NG Cardiovascular: Rate and Rhythm: Regular rhythm. Pulmonary: Effort: Pulmonary effort is normal. Abdominal: General: There is distension (Mild). Palpations: Abdomen is soft. Tenderness: There is no abdominal tenderness. There is no guarding or rebound. Comments: Wound vac in place. Stoma pink, brown liquid stool noted in ostomy bag Neurological: General: No focal deficit present. Mental Status: She is alert and easily aroused. 24 hour urine output: 1370 mL 24 hour wound VAC output: 50 mL 24 hour ileostomy output: 3450 mL Laboratory Data: Latest Reference Range & Units 03/11/25 02:10 03/11/25 16:40 03/12/25 02:05 03/13/25 01:54 03/14/25 02:34 White Blood Cells 4 - 11 x10E9/L 8.3 5.9 5.5 6.4 RBC count 3.8 - 5.2 X10E12/L 3.75 (L) 3.85 3.97 4.17 Hemoglobin 11.7 - 15.5 g/dL 10.1 (L) 10.2 (L) 10.2 (L) 10.4 (L) 11.0 (L) Hematocrit 35 - 47 % 30.2 (L) 31.2 (L) 31.2 (L) 32.5 (L) 34.3 (L) MCV 80 - 100 fL 80 81 82 82 MCH 27 - 34 pg 26.8 (L) 26.4 (L) 26.1 (L) 26.4 (L) MPV 7 - 12 fL 8.2 8.3 8.3 8.3 MCHC 32 - 36 g/dL 33.4 32.6 31.9 (L) 32.1 RDW 11.5 - 15 % 26.6 (H) 26.7 (H) 27.6 (H) 26.7 (H) Platelets 150 - 450 X10E9/L 89 (L) 92 (L) 105 (L) 147 (L) (L): Data is abnormally low (H): Data is abnormally high Latest Reference Range & Units 03/13/25 01:53 03/13/25 09:33 03/13/25 18:14 03/14/25 02:34 Sodium 134 - 146 mmol/L 147 (H) 148 (H) Potassium 3.5 - 5.0 mmol/L 3.1 (L) 3.5 4.2 3.6 Chloride 98 - 109 mmol/L 106 108 CARBON DIOXIDE 22 - 32 mmol/L 34 (H) 35 (H) Glucose 65 - 99 mg/dL 120 (H) 126 (H) Creatinine 0.40 - 1.00 mg/dL 0.64 0.46 BUN 5 - 27 mg/dL 16 13 (H): Data is abnormally high (L): Data is abnormally low Component Latest Ref Rng 03/14/2025 Phosphorus 2.4 - 4.9 mg/dL 1.8 (L) Lab Results Component Value Date INR 1.1 03/15/2025 INR 1.3 (H) 03/14/2025 INR 1.3 (H) 03/13/2025 PROTIME 13.0 03/15/2025 PROTIME 14.2 (H) 03/14/2025 PROTIME 14.4 (H) 03/13/2025 acetaminophen, 650 mg, oral, Q6H EPINEPHrine HCl (PF), , , folic acid, 1 mg, nasogastric, Daily insulin lispro, 2-10 Units, subcutaneous, Q6H lidocaine, 1 patch, transdermal, Daily pantoprazole, 40 mg, intravenous, Q24H JOSE phenylephrine, , , sodium chloride, 10 mL, intravenous, Q8H AND sodium chloride, 10 mL, intravenous, PRN AND sodium chloride, 20 mL, intravenous, PRN vasopressin, , , calcium gluconate OR calcium gluconate OR calcium gluconate dextrose dextrose 5 % in water dextrose 50 % in water (D50W) EPINEPHrine HCl (PF) glucagon (human recombinant) heparin (porcine) hydrALAZINE magnesium sulfate OR magnesium sulfate methocarbamoL ondansetron oxyCODONE OR oxyCODONE phenylephrine potassium chloride OR potassium chloride potassium chloride in water OR potassium chloride in water sodium phosphate IV OR sodium phosphate IV - central line OR sod phos di, mono-K phos mono sodium chloride sodium chloride sodium chloride AND sodium chloride AND sodium chloride sodium chloride 0.9 % vasopressin Imaging: X-ray chest 1 view CLINICAL HISTORY: Postextubation Comparison: 03/12/2025 Views: 1 view FINDINGS: * NG tube courses below GE junction. Double-lumen catheter overlies SVC. Lower lobe atelectasis andsmall effusions. No pneumothorax. Subcutaneous gas slightly decreased overlying left chest as compared to previous exam. IMPRESSION: * No significant change Finalized by Jb Cifuentes MD on 03/13/2025 7:02 AM Assessment: Caren Suarez is a 69 y.o. 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 Patient's surgery was complicated by obstructive shock and cardiac collapse resulting in need for ACLS. [facility] Patient subsequently went for 2nd loop laparotomy, fascial closure, ileostomy creation on 03/09/2025. 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 2.2 cm right interpolar renal mass concerning for RCC Right-sided PE without heart strain Left pneumothorax, resolved, chest tube out Multiple DVT Pulmonary nodules likely metastasis Obstructive shock from PE now off vasopressors Status post cardiac arrest intraoperatively Acute blood loss anemia, Hgb up to 11 coagulopathy, improving Thrombocytopenia, stable Metabolic acidosis Acute respiratory failure requiring mechanical ventilation, now extubated VRE UTI, no abx indicated for now per ID Peritonitis diagnosed on paracentesis 02/28/25, with complete treatment, now on empiric antibiotics Plan: Suggest continuation of tube feeds until adequate PO intake Consider adding an appetite stimulant to increase PO intake Refeeding precautions given electrolyte derangement Continue heparin, not ready for DOAC yet Vascular medicine recommended Eliquis once closer to discharge date 5 mg b.i.d. without induction dose, they signed off Appreciate Infectious Disease recommendations - antibiotics were completed and they are monitoring her off antibiotics Incentive spirometry 10 x per hour Wound care, wound vac per ET Appreciate nephrology recommendations - started D5W at 1:25 a.m. mL/hr for 24 hours to replete water deficit, held diuresis yesterday, bladder scans q.12 hours Appreciate oncology recommendations Appreciate palliative medicine assistance with goals of care in regards to her cancer - patient shows DNR CCA but okay with intubation and was encouraged to complete POA paperwork and living will Appreciate remainder of care per critical care team Monitor thrombocytopenia and transfuse platelets if active bleeding Urology was consulted for urinary retention - appreciate recommendations London Merino MD PGY-1 General Surgery 03/15/25 Colorectal Surgery 6a - 6p Pager: [phone] 6p - 6a Pager: [phone] Cosigned by Reyna Brewer MD at 03/15/2025 10:21 AM EDT Associated attestation - Reyna Brewer MD - 03/15/2025 10:21 AM EDT Attending Attestation: I saw the patient. I performed the critical/fuentes portions of the service. I was directly involved inthe management and treatment plan of the patient. I reviewed the resident's note. Additional Notes/Findings: She passed her swallow study but does not drink enough clear liquids to be advanced. Plan will be to add appetite stimulant. Ileostomy is functioning * Venita Chan MD - 03/15/2025 6:32 AM EDT SICU Academic Critical Care PROGRESS NOTE Admission Date: 02/25/2025 5:24 PM Attending Physician: Deena Branch MD Date of 1955 Hospital Day: 18 day(s) 24 Hour Events: No acute events overnight. Remained HDS. She has had accu-PAP therapy throughout the evening. Patient was seen and examined at bedside this morning. She states that pain is well tolerated when she's lying still. In pain when she is moved, but overall has improved. She did have some nausea andsmall spit up / emesis due to pain after being moved. Pulling up to 500 on IS this morning. Denies any SOB. Tolerating TF to goal (45 ml/hr). Still has had poor PO intake - ice chips & minimal jello. History of Present Illness Caren Suarez is a 69 y.o. female with past medical history of DVT, HTN, who was admitted to [facility] after a CT A/P at an OSH demonstrated large partially solid cystic lesions. At that time she was found to have multiple DVTs and PEs. She was transferred to [facility] for a higher level of care. On arrival, her DVTs were being treated with heparin. Colorectal surgery was consulted on 03/07 for possible bowel obstruction. At that time a CT A/P demonstrated colonic dilation with transition at the sigmoid junction. There is concern for acute malignant obstruction for known mucinous adenocarcinoma with colorectal origin. After stabilization of the patient's INR with [facility] on 03/07, the decisionwas made to take her to the operating room as a joint case between Colorectal on [employer] Specialist/Onc. At the beginning of the case, patient initially desaturated prior to incision. It was believed thatthis was due to the significant malignant ascites compressing the lungs. Decision was made to proceed with the case, and after decompression the patient's respiratory status significantly improved. The patient later went into cardiac arrest within the operating room and a code was initiated. Compressions were begun, epi was administered. After 2 rounds of compressions ROSC was obtained. ABThera was placed and the patient was transferred to the surgical ICU intubated and sedated. 03/09: OR for end ileostomy, fascia closed, wound vac 03/12: Extubated + CT removal Physical Exam: Vital Signs: BP 138/49 Pulse 90 Temp 36.7 ??C (98 ??F) (Oral) Resp 24 Ht 157.5 cm (5' 2.01 ) Wt 84.7 kg (186 lb 11.7 oz) SpO2 100% BMI 34.14 kg/m?? Physical Exam Constitutional: General: She is not in acute distress. HENT: Head: Normocephalic and atraumatic. Right Ear: External ear normal. Left Ear: External ear normal. Nose: Comments: NGT in place NC Mouth/Throat: Mouth: Mucous membranes are moist. Eyes: Extraocular Movements: Extraocular movements intact. Conjunctiva/sclera: Conjunctivae normal. Pupils: Pupils are equal, round, and reactive to light. Cardiovascular: Rate and Rhythm: Normal rate and regular rhythm. Pulses: Normal pulses. Pulmonary: Effort: Pulmonary effort is normal. No respiratory distress. Comments: 4L NC IS 250-500 Abdominal: General: Abdomen is flat. There is no distension. Palpations: Abdomen is soft. Tenderness: There is no abdominal tenderness. There is no guarding. Comments: Ostomy bag in place - liquid stool output Midline incision covered with wound vac Musculoskeletal: Cervical back: Normal range of motion. Skin: General: Skin is warm and dry. Coloration: Skin is not jaundiced. Neurological: Mental Status: She is alert. Mental status is at baseline. Intake/Output Summary (Last 24 hours) at 03/15/2025 0707 Last data filed at 03/15/2025 0521 Gross per 24 hour Intake 1068 ml Output 4740 ml Net -3672 ml O2 Device: Nasal cannula Ventilator: Settings Vent Mode: CPAP FiO2 (%): 40 % Resp Rate (Set): 20 Avea Vt (Set, L): 0.4 Liter PEEP/CPAP (cm H2O): 8 cm H20 Insp Time (sec): 0.92 sec Trigger Sensitivity Flow (L/min): 1 L/min Trigger Sensitivity Pressure (cm H2O): 3 cm H2O Humidification: Heat and moisture exchanger Invasive Hemodynamic [place] Results from last 3 days Lab Units 03/15/25 0246 03/14/25 2032 03/14/25 1430 03/14/25 0234 03/13/25 1814 03/13/25 0933 03/13/25 0153 03/12/25 1355 03/12/25 0804 BUN mg/dL 13 13 13 13 -- -- 16 -- -- CREATININE mg/dL 0.45 0.49 0.51 0.46 -- -- 0.64 -- -- POTASSIUM mmol/L 4.1 3.7 3.9 3.8 3.6 4.2 3.5 3.1* 4.0 3.7 CO2 mmol/L 28 30 31 35* -- -- 34* -- -- CHLORIDE mmol/L 109 108 108 108 -- -- 106 -- -- MAGNESIUM mg/dL 2.0 -- -- 2.1 -- 2.3 1.9 -- -- Results from last 3 days Lab Units 03/15/25 0246 03/14/2523303/13/25 0154 INR 1.1 1.3* 1.3* PROTIME sec 13.0 14.2* 14.4* Results from last 3 days Lab Units 03/15/25 0246 03/14/2523303/13/25 0154 WBC x10E9/L 9.6 6.4 5.5 HEMOGLOBIN g/dL 11.6* 11.0* 10.4* HEMATOCRIT % 36.5 34.3* 32.5* PLATELETS X10E9/L 185 147* 105* MCV fL 82 82 82 MCH pg 26.3* 26.4* 26.1* MCHC g/dL 32.0 32.1 31.9* RDW % 27.4* 26.7* 27.6* Microbiology Results No results found for the last 168 hours. Glucose Results from last 7 days Lab Units 03/15/25 0246 03/14/25203103/14/25 1430 03/14/25 1415 03/14/25 0820 03/14/25 0234 03/14/25 0233 03/13/25 2005 03/13/25 1455 03/13/25 0926 03/13/25 0457 BEDSIDE GLUCOSE mg/dL -- 131* -- 130* 153* -- 145* 140* 119* 129* 147* GLUCOSE mg/dL 118* 125* 120* -- -- 126* -- -- -- -- -- Lines/Drains CVC Triple Lumen 03/07/25 Right Internal Jugular (Active) Precautions Standard precautions;Hand hygiene;Gloves 03/08/25 0300 Lumen 1 Proximal 03/08/25 0300 Lumen 1 Status Blood return noted;Flushed;Infusing 03/08/25 0300 Lumen 2 Medial 03/08/25 0300 Lumen 2 Status Blood return noted;Flushed;Infusing 03/08/25 0300 Lumen 3 Distal 03/08/25 0300 Lumen 3 Status Blood return noted;Flushed;Infusing 03/08/25 0300 Site Assessment Clean;Dry;Intact 03/08/25 0000 Dressing Type Transparent;Occlusive 03/08/25 0300 Dressing Status Clean;Dry;Intact 03/08/25 0300 Dressing Intervention Initial dressing 03/08/25 0300 Line Necessity Peripherally incompatible solution 03/08/25 0300 Line Necessity Reviewed With cc 03/08/25 0300 Patient Tolerance of Line Care Tolerated well 03/08/25 0300 Central Line Dressing Change Due (Non-Gauze) 03/15/25 03/08/25 0000 Peripheral IV 03/05/25 Anterior;Left Forearm (Active) Line Status Infusing;Flushed 03/08/25 0300 Site Assessment Clean;Intact;Dry 03/08/25 0300 Dressing Type Transparent;Occlusive 03/08/25 0300 Dressing Status Intact;Clean;Dry 03/08/25 0300 Dressing Intervention Initial dressing 03/08/25 0300 Dressing Change Due (Non-Gauze) 03/12/25 03/05/25 0649 Peripheral IV 03/06/25 Anterior;Right Forearm (Active) Line Status Infusing;Flushed 03/08/25 0300 Site Assessment Clean;Dry;Intact 03/08/25 0300 Dressing Type Transparent;Occlusive 03/08/25 0300 Dressing Status Intact;Dry;Clean 03/08/25 0300 Dressing Intervention Initial dressing 03/08/25 0300 Dressing Change Due (Non-Gauze) 03/13/25 03/06/25 2105 Chest Tube 03/08/25 Left (Active) Function -20 cm H2O 03/08/25 0300 Air Leak No 03/08/25 0300 (1) Drainage Description Serosanguineous 03/08/25 0300 (1) Dressing Type Gauze;Occlusive 03/08/25 0300 (1) Dressing Status Clean;Dry;Intact 03/08/25 0300 (1) Dressing Intervention Initial dressing 03/08/25 0300 (1) Site Assessment Clean;Intact;Dry 03/08/25 0300 Output (mL) 20 mL 03/08/25 0600 Negative Pressure Wound Therapy 03/07/25 Surgical Quadrant;Mid Abdomen (Active) Assessed: Compressed 03/08/25 0300 Cycle Continuous 03/08/25 0300 Target Pressure (mmHg) 125 03/08/25 0300 Dressing Status Clean;Dry;Intact 03/08/25 0300 Dressing Changed New 03/08/25 0000 Output (mL) 200 mL 03/08/25 0600 NG/OG Tube 03/08/25 Left nostril (Active) Placement Verification External length measured 03/08/25 0300 Status Suction-low intermittent 03/08/25 0300 Tube Site Care Completed 03/08/25 0300 Secured at (cm) 55 cm 03/08/25 0300 Securement Method Securing device (Describe) 03/08/25 0300 Dressing Status/Interventions Clean;Dry;Intact 03/08/25 0300 Drainage Appearance Bile 03/08/25 0300 Urinary Catheter 03/06/25 Single lumen (Active) Catheter Status Patent 03/08/25 030 Site Assessment Clean;Skin intact 03/08/25 0300 Collection Container Standard drainage bag/container 03/08/25 0300 Securement Method Right 03/08/25 0300 Tamper Evident Seal Intact Yes 03/08/25 0300 Indication for Continuation Uro/jewel bearing turner surgical considerations 03/08/25 0000 Urine Color Yellow/straw 03/08/25 0300 Urine Appearance Clear 03/08/25 0300 Output (mL) 50 mL 03/08/25 0700 ETT 03/07/25 Cuffed;Inflated Oral (Active) Secured at (cm) 22 cm 03/08/25 0300 Measured from Lips 03/08/25 030 Secured Location Center 03/08/25 0200 Secured by Commercial tube du 03/08/25 0300 Cuff Pressure (cm H2O) 30 cm H2O 03/08/25 0200 Arterial Line 03/07/25 Left Radial (Active) Line Status Infusing;Blood return noted;Pulsatile blood flow;Flushed 03/08/25 030 Line Interventions Zeroed and calibrated;Leveled;Connections checked and tightened;Pressure bag maintained 03/08/25 030 Waveform Appropriate 03/08/25 030 Site Assessment Clean;Intact;Dry 03/08/25 030 Dressing Type Transparent;Occlusive 03/08/25 030 Dressing Status Clean;Dry;Intact 03/08/25 0300 Dressing Intervention Initial dressing 03/08/25 0300 Color/Movement/Sensation Capillary refill less than 3 sec 03/08/25 0300 Patient Tolerance of Line Care Tolerated well 03/08/25 0300 Line Necessity Invasive hemodynamic monitoring 03/08/25 0300 Line Necessity Reviewed With cc 03/08/25 0300 Dressing Change Due (Non-Gauze) 03/15/25 03/08/25 0000 ACTIVE PROBLEM LIST: S/p cardiac arrest Malignant bowel obstruction s/p total colectomy and bilateral salpingo-oophorectomy Pulmonary embolism Multiple DVT Blood loss anemia Acute Kidney Injury w/ concern for acute tubular necrosis Malignant Colorectal Cancer Bacterial Peritonitis Ovarian Cystic Lesion ASSESSMENT/PLAN: Caren Suarez is a 69 y.o. female who is s/p total colectomy and bilateral salpingo-oophorectomy for malignant bowel obstruction for known mucinous adenocarcinoma (03/07) and s/p ex lap ileostomy creation, SBR, and abdominal wall closure (03/09). 1. Neuro S/p cardiac arrest CT Head without contrast: No acute intracranial process. Hospital Meds: Sedation: None Analgesia: scheduled Tylenol, Roxicodone PRN Discontinued: fentanyl, Ofirmev, dilaudid Other: n/a Home Meds: N/a 2. Pulmonary # Pulmonary embolism, multiple DVT - CTA Chest 03/08/25:Slightly decreased burden of right sided pulmonary emboli. No new emboli. Left chest tube, moderate left pneumothorax, significant subcutaneous emphysema, mild dependent edema and consolidation left lung. # Vascular venous duplex 02/24/25 Acute femoropopliteal deep vein thrombosis, acute deep tibioperoneal vein thrombosis, acute deep calf muscle vein thrombosis - Vascular Surgery is consulted - Restarted on heparin - Vascular recommend re-starting Eliquis closer to discharge - 5mg BID without induction dose - Encourage IS, ambulation 03/13/25 CXR: Lower lobe atelectasis and small effusions. No pneumothorax. Subcutaneous gas slightlydecreased overlying left chest as compared to previous exam. 03/12/25 CXR post-extubation: No pneumothorax. Persistent left body wall emphysema. No definite pneumothorax seen. Left greater than right bibasilar opacities, likely atelectasis. Chest tube removed @ bedside 03/12/25 CXR: No pneumothorax. Satisfactory ET tube position. - Pt doing well from pulmonary standpoint. Can likely extubate today 03/11/25 CXR: Decreasing small left pneumothorax. Otherwise, stable chest. 03/10/25 CXR: Pneumothorax remains with a indwelling left chest tube. Pneumothorax is larger than theprior study currently approximately 17 mm at the left upper lobe. The amount of gas within the leftchest wall is increasing. 03/09/25 CXR: There is a 1 cm left apical pneumothorax. Sidehole of the left-sided chest tube is outside of the pleural space in the left lateral chest wall. Improved aeration of the left lung. 03/08/25 CXR: Left chest tube has been pulled back, with tip remaining in the hemithorax however sideport outside of the pleural space in the chest wall Breathing Support: 4L Nasal Cannula SpO2: >94% Continuous pulse oximetry Hospital Meds: None Home Meds: None 3. Cardiovascular S/p cardiac arrest, shock Hemodynamics: NSR Normotensive Pressors: None Previously on Levo, Epi Goal MAP >65 Continuous cardiac monitoring Hospital Meds: IV Heparin drip Home Meds: Unknown PMH: Hypertension, previous DVTs PSH: None known Code Status: Full 4. GI # Malignant bowel obstruction s/p total colectomy and bilateral salpingo-oophorectomy Status post total colectomy, left in discontinuity, ABThera in place 03/07/25 Status post 2nd look and end ileostomy creation, wound vac in place 03/09/25 NG Tube: 392 cc Diet: TF with free water, passed bedside swallow - can have CLD Continue tube feeds until patient with adequate po intake beyond clear liquids, as patient with severely poor nutrition x 10 days as per nutrition services Bowel Function: Monitor - liquid stool output Hospital Meds: Protonix, Zofran PRN Home Meds: None known 5. Renal/Genitourinary TASHA w/ concern for acute tubular necrosis - nephrology consult 03/09/25 - Nephrology consulted Lasix 40mg IV BID completed 03/12, strict ins and outs, bladder scan q12 # Urinary retention - removed camara 03/13, minimal to no UOP. Straight cath 2x after bladder scan >400 mL - placed camara back 03/14, consulted urology by CRS Lab Results Component Value Date SODIUM 145 03/15/2025 SODIUM 145 03/14/2025 SODIUM 146 03/14/2025 CL 109 03/15/2025 CL 108 03/14/2025 CL 108 03/14/2025 K 4.1 03/15/2025 K 3.7 03/14/2025 K 3.8 03/14/2025 K 3.9 03/14/2025 CO2 28 03/15/2025 CO2 30 03/14/2025 CO2 31 03/14/2025 Electrolytes: Lab Results Component Value Date BUN 13 03/15/2025 BUN 13 03/14/2025 BUN 13 03/14/2025 CREATININE 0.45 03/15/2025 CREATININE 0.49 03/14/2025 CREATININE 0.51 03/14/2025 CALCIUM 7.7 (L) 03/15/2025 CALCIUM 7.4 (L) 03/14/2025 CALCIUM 7.6 (L) 03/14/2025 MG 2.0 03/15/2025 MG 2.1 03/14/2025 MG 2.3 03/13/2025 PHOSPHORUS 2.0 (L) 03/15/2025 PHOSPHORUS 2.0 (L) 03/14/2025 PHOSPHORUS 1.8 (L) 03/14/2025 Will replace electrolytes PRN per ICU protocol Fluid Balance: IV fluids/24H: D5W @ 20 UOP/24 H: 1370 mL Ileostomy / 24H: 3450 mL Net Fluid/24H: -4092 mL Net Fluid Since admission: -2591 mL Strict monitoring of Ins and Outs Hospital Meds: Lasix PRN per nephro (last dose 03/12) Home Meds: None known 6. Heme Blood loss anemia - Hgb stable, plt improved Labs: Lab Results Component Value Date HGB 11.6 (L) 03/15/2025 HGB 11.0 (L) 03/14/2025 HGB 10.4 (L) 03/13/2025 PLT 185 03/15/2025 PLT 147 (L) 03/14/2025 PLT 105 (L) 03/13/2025 Lab Results Component Value Date INR 1.1 03/15/2025 INR 1.3 (H) 03/14/2025 INR 1.3 (H) 03/13/2025 Type and Screen: A neg Blood Products Administered: 03/08: 3u pRBC + 1u FFP 03/07: 2u FFP Will continue to monitor Hgb and transfuse PRN 7. ID Leukocytosis Bacterial Peritonitis Ovarian Cystic Lesion - Infectious disease is onboard - Completed course of metronidazole and ceftriaxone 03/12 -Urine culture + for VRE. No urinary symptoms when culture obtained. No systemic signs of infectionat this time. No indication for treatment. Tmax/24H: 36.9 Labs: Lab Results Component Value Date WBC 9.6 03/15/2025 WBC 6.4 03/14/2025 WBC 5.5 03/13/2025 Micro: Peritoneal fluid culture collected 02/28/25: [facility] Hospital Meds: Antibiotics: none Completed: rocephin and flagyl 8. Endocrine Lab Results Component Value Date GLU 118 (H) 03/15/2025 GLU 125 (H) 03/14/2025 GLU 131 (H) 03/14/2025 Goal Blood Glucose <180 mg/dL Hospital Meds: ISS PMH: none known 9. Musculoskeletal PMH: n/a PSH: n/a PT/OT: Recommend moderate intensity rehab, Tolerate 1-2 hrs of therapy 3-5 days/wk 10. Prophylaxis Respiratory: none GI: protonix DVT: SCD Cuffs, heparin drip 11. Lines PIV x1 Right IJ CVC NG tube Ileostomy Wound vac Indwelling urinary catheter Disposition: Critical, keep in SICU Venita Chan MD (Nikki) PGY-1, Urology Resident SICU Service Cosigned by Orion Damico MD at 03/15/2025 1:04 PM EDT Associated attestation - Orion Damico MD - 03/15/2025 1:04 PM EDT Attending Attestation: I saw the patient. I participated and was physically present during the critical/fuentes portions of the service. I was directly involved in the management and treatment plan of the patient. I reviewed the resident's note. Additional Notes/Findings: <<<<<<<<<<<<<<<<<< Surgical Critical Care Attending >>>>>>>>>>>>>>>>>>>>>>>> I have seen and evaluated the patient, and have also reviewed the history above. Patient is critically ill and has a high probability of imminent or life- threatening deterioration, that requires highcomplexity decision making and failure to do so may cause further life threatening deterioration. Ihave repeated and performed the fuentes portions of the physical exam and concur with the resident's/advanced practice provider findings with the exception of the below additions. I have reviewed all pertinent laboratory findings and imaging reports/films. We have discussed the patient's status and theappropriate treatment options/plan on the day of the encounter. I agree with the plan as noted above except for changes below. Critical care time spent with the patient today = 33 minutes. Diagnoses: Acute respiratory failure with hypoxia Cardiac arrest Acute blood loss anemia Hypocalcemia Pulmonary embolism DVT TASHA Hypoalbuminemia Sepsis hypokalemia Plan: Might need BIPAP today. Im concerned about her respiratory effort. 500mL on Incentive spirometry. Slightly improved from yesterday PTOT On ceftriaxone and flagyl. ID involved. Nephrology following. Creatinine normal. Appreciate their help. Hypernatremia today. Increase free water I and O -4L/24 hours and -2.5L/HS Camara replaced. Do not need to replace ileostomy output at this time Will start lomotil low dose BID Orion Damico MD, FACS [facility] General Surgeons Minimally Invasive Robotic Surgery Surgical Critical Care Trauma Office: [phone] Please feel free to call with questions at anytime. * Tanya Kraus APRN-ASSISTANT DIRECTOR OF RESIDENCE LIFE - 03/15/2025 6:15 AM EDT Images from the original note were not included. [facility] Hematology [facility] Oncology - Daily Progress Note 03/15/2025, 6:15 AM Impression/Plan: Metastatic Colorectal Cancer -Initially favoring ovarian primary given clinical pattern, but now with pathology positive for colorectal primary -Initial CT a/p showed large partially solid and partially cystic lesion in the right adnexa measuring 16 cm x 12 cm x 11 cm + lower anterior abdominal soft tissue nodules + 2.5 cm solid R renal lesion + diffuse intraperitoneal fluid -CTA chest revealed numerous pulmonary nodules -[id number], CV7=778, CEA=24.6, CA 19-9 WNL -TVUS noted an 18.2 cm cystic and solid lesion in the pelvis with ascites and peritoneal nodularity -S/p IR performed paracentesis and biopsy of soft tissue nodules 02/28 -Ascites fluid non-diagnostic -Abdominal soft tissue biopsy pathology positive for mucinous adenocarcinoma consistent with colorectal origin -Will need tor recover from surgery before she will be considered for systemic cancer treatments -Palliative medicine consult for assistance with pain. Patient elected to change code status to DNRCCA yesterday -She will follow up with Dr. Romero after discharge for further management Malignant Bowel Obstruction, Abdominal Pain/Distention -Repeat CT a/p 03/06 shows Colonic dilatation with transition at the sigmoid junction. Concern for obstruction from the known large rectal mass vs multicentric colorectal carcinoma + Similar appearanceof a 20 cm cystic pelvic lesion, recently characterized as rectal adenocarcinoma + Peritoneal carcin omatosis -Now s/p exploratory laparotomy with colectomy, bilateral salpingo-oophorectomy 03/07--> s/p 2nd look exp lap with washout, SBR, end ileostomy, and wound vac 03/09 -Patient coded in surgery, and now remains in ICU, she was extubated 03/12 -General surgery following Renal Mass, Hydroureteronephrosis, TASHA, hyperuricemia -CT imaging shows 2.5 cm R interpolar renal mass concerning for RCC + Mild right hydroureteronephrosis, likely secondary to pelvic mass effect on the ureter -Urology, nephrology following PE/DVT -Likely provoked by metastatic malignancy -CTA shows Moderate right sided pulmonary emboli without evidence of right heart strain -Dopplers revealing acute R femoropopliteal, deep tibioperoneal, and deep calf muscle DVT + L deep calf muscle DVT -On heparin gtt, likely transition to DOAC prior to discharge pending clinical course -Repeat CTA chest 03/08 showed decreased burden of R pulmonary embolus Supratherapeutic INR -In setting of advanced metastatic disease, Eliquis therapy, acute infection -INR corrected s/p preoperative Vit K +/- FFP reversal Anemia/thrombocytopenia -Improved/stable. Largely multifactorial due to severe B12 deficiency, folate deficiency, Iron deficiency anemia in setting of vaginal bleeding d/t #1, acute infection, metastatic GI malignancy, renal insufficiency, surgical blood loss -Hgb=11.6(11.0, 10.4, 10.1, 11.3, 11.4, 12.7, 12.7) microcytic -Plt =185k(147k, 105k, 89k, 117k, 140k, 155k, 187k) -HPF4ab is negative -Last transfused PRBC 03/08 -S/p IM B12 & IV iron -Continue folic acid -No hemolysis -EGD/colonoscopy were planned, but not completed as patient could not tolerate bowel prep, likely due to bowel obstruction as discussed above -Transfuse for hgb<7 -Have arranged for follow up with Dr. Romero UTI -On IV antibiotics -As per other services Respiratory Failure, Shock, S/p Cardiac Arrest -Extubated 03/12 -As per crit care team Continue management of other medical problems as per appropriate services. Patient discussed with Dr. Romero. Please call with questions. Interval History: Patient seen and examined at bedside, she is asleep upon entry, I did not attempt to wake her. She appears comfortable at this time. NG with tube feed in place She is afebrile. VS are stable. She remains on 4L NC. No acute distress noted. Physical Examination : Temp: [36.4 ??C (97.5 ??F)-36.9 ??C (98.5 ??F)] 36.7 ??C (98 ??F) Pulse: [74-107] 91 Resp: [18-28] 23 BP: (117-153)/(62-95) 117/70 SpO2: [96 %-100 %] 100 % O2 Device: Nasal cannula O2 Flow Rate (L/min): [4 L/min] 4 L/min Temperature Range: Temp: 36.7 ??C (98 ??F) Temp Av.6 ??C (97.9 ??F) Min: 36.4 ??C (97.5 ??F) Max: 36.9 ??C (98.5 ??F) Weight change: -1.3 kg (-2 lb 13.9 oz) Physical Exam Vitals and nursing note reviewed. Constitutional: General: She is not in acute distress. Appearance: She is normal weight. She is ill-appearing HENT: Head: Normocephalic and atraumatic. Right Ear: External ear normal. Left Ear: External ear normal. Nose: Nose normal. Mouth/Throat: Eyes: General: No scleral icterus. Extraocular Movements: Extraocular movements intact. Pupils: Pupils are equal, round Cardiovascular: Rate and Rhythm: Normal rate and regular rhythm. Pulmonary: Effort: Pulmonary effort is normal. No respiratory distress Abdominal: General: There is distension. Tenderness: There is abdominal tenderness. There is guarding. Musculoskeletal: Right lower leg: +2 edema Left lower leg: +2 edema Skin: General: Skin is warm and dry. Coloration: Skin is not jaundiced. Findings: Abdominal incision, not visualized Neurological: General: Psychiatric: Mood and Affect: Laboratory data: Results from last 7 days Lab Units 03/15/25 0246 03/14/25 0234 03/13/25 0154 WBC x10E9/L 9.6 6.4 5.5 HEMOGLOBIN g/dL 11.6* 11.0* 10.4* HEMATOCRIT % 36.5 34.3* 32.5* PLATELETS X10E9/L 185 147* 105* MCV fL 82 82 82 Results from last 7 days Lab Units 03/15/25 0246 03/14/25 0234 03/13/25 0154 03/12/25 0205 03/11/25 0210 03/10/25 2030 PROTIME sec 13.0 14.2* 14.4* 13.5* 13.4* -- INR 1.1 1.3* 1.3* 1.2 1.2 -- APTT sec -- -- -- 48* 58* 55* Results from last 7 days Lab Units 03/15/25 0246 03/14/25 2032 03/14/25 1430 03/14/25 0820 03/14/25 0234 03/13/25 1455 03/13/25 0933 03/13/25 0457 03/13/25 0154 03/09/25 1549 03/09/25 1041 SODIUM mmol/L 145 145 146 -- 148* -- -- -- -- < > 139 POTASSIUM mmol/L 4.1 3.7 3.9 3.8 -- 3.6 < > 3.5 -- -- < > 4.9 CHLORIDE mmol/L 109 108 108 -- 108 -- -- -- -- < > 109 CO2 mmol/L 28 30 31 -- 35* -- -- -- -- < > 23 BUN mg/dL 13 13 13 -- 13 -- -- -- -- < > 30* CREATININE mg/dL 0.45 0.49 0.51 -- 0.46 -- -- -- -- < > 1.09* CALCIUM mg/dL 7.7* 7.4* 7.6* -- 7.5* -- -- -- -- < > 7.8* ALK PHOS U/L -- -- -- -- -- -- -- -- -- -- 38* ALT U/L -- -- -- -- -- -- -- -- -- -- 23 AST U/L -- -- -- -- -- -- -- -- -- -- 33 BEDSIDE GLUCOSE mg/dL -- 131* -- < > -- < > -- < > -- < > -- GLUCOSE mg/dL 118* 125* 120* -- 126* -- -- -- -- < > 114* INR 1.1 -- -- -- 1.3* -- -- -- 1.3* < > -- MAGNESIUM mg/dL 2.0 -- -- -- 2.1 -- 2.3 -- -- < > 2.4 < > = values in this interval not displayed. VITAMIN B12: Lab Results Component Value Date SPUOLDDO05 110 (L) 02/26/2025 FOLATE: Lab Results Component Value Date FOLATE 3.3 (L) 02/26/2025 IRON: Lab Results Component Value Date IRON 12 (L) 02/26/2025 TIBC 321 02/26/2025 FERRITIN 78 02/26/2025 Medications: phenylephrine, , , acetaminophen, 650 mg, oral, Q6H EPINEPHrine HCl (PF), , , folic acid, 1 mg, nasogastric, Daily insulin lispro, 2-10 Units, subcutaneous, Q6H lidocaine, 1 patch, transdermal, Daily pantoprazole, 40 mg, intravenous, Q24H JOSE sodium chloride, 10 mL, intravenous, Q8H AND sodium chloride, 10 mL, intravenous, PRN AND sodium chloride, 20 mL, intravenous, PRN vasopressin, , , ELLIOTT Shankar 03/15/25 0704 Cosigned by Geremias Romero MD at 2025 6:37 AM EDT * ELLIOTT Dugan - 03/14/2025 3:36 PM EDT Images from the original note were not included. [facility] PALLIATIVE CARE PROGRESS NOTE Date of Service: 03/14/2025 Patient Name: Caren Suarez : 1955 Subjective SUBJECTIVE Chart reviewed. Palliative following along. Readdress goals of care. Patient is seen lying in bed. She is awake, alert oriented x4 able to make her wishes known. She has had a complicated hospital course including cardiac arrest in the OR had been on vent now extubated. She is with metastatic coloncancer with malignant bowel obstruction s/p exploratory laparotomy with colectomy, bilateral salpingo-oophorectomy 03/07--> s/p 2nd look exp lap with washout, SBR, end ileostomy, and wound vac 03/09. Patient is full code. Mother legal NOK. Sh has expressed prior wanting her nephew to be POA. Allergies: Penicillin Inpatient Medications: Current Facility-Administered Medications: acetaminophen (TYLENOL) tablet 650 mg, 650 mg, oral, Q6H, Venita Chan MD, 650 mg at 03/14/25 1421 calcium gluconate IVPB 1000 mg/50 mL (20 mg/mL premix), 1,000 mg, intravenous, PRN, Stopped at 03/13/25 1022 OR calcium gluconate IVPB 2000 mg/100 mL (20 mg/mL premix), 2,000 mg, intravenous, PRNOR calcium gluconate 3,000 mg in sodium chloride 0.9 % 100 mL IVPB, 3,000 mg, intravenous, PRN,Дмитрий Lara MD dextrose (GLUTOSE) 40 % gel 15 g, 15 g, oral, PRN, OK Albright dextrose 5 % (D5W) infusion, 100 mL/hr, intravenous, Continuous PRN, OK Albright dextrose 5 % (D5W) infusion, 50 mL/hr, intravenous, Continuous, Armani Fall MD dextrose 50 % in water (D50W) 50% solution 25 mL, 25 mL, intravenous, PRN, OK Albright folic acid (FOLVITE) tablet 1 mg, 1 mg, nasogastric, Daily, OK Dang, 1 mg at 03/14/25 0815 glucagon HCL injection 1 mg, 1 mg, intramuscular, PRN, OK Albright heparin (porcine) injection 2,000 Units, 2,000 Units, intravenous, PRN, Orion Damico MD heparin infusion 42841 units/500 mL in 0.45% NaCl (50 units/mL premix), 300- 3,500 Units/hr, intravenous, Continuous, Orion Damico MD, Last Rate: 21 mL/hr at 03/14/25 1201, 1,050 Units/hr at 03/14/25 1201 hydrALAZINE (APRESOLINE) injection 10 mg, 10 mg, intravenous, Q6H PRN, Eleni Harding APRN-ASSISTANT DIRECTOR OF [employer]IDENCE LIFE, 10 mg at 03/12/25 0352 insulin lispro (HumaLOG) injection 2-10 Units, 2-10 Units, subcutaneous, Q6H, Дмитрий Lara MD, 2 Units at 03/14/25 0945 lidocaine (SALONPAS) 4 % 1 patch, 1 patch, transdermal, Daily, Venita Chan MD, 1 patch at 03/14/25 0815 magnesium sulfate IVPB 2000 mg/50 mL in iso-osmotic water (40 mg/mL premix), 2,000 mg, intravenous,PRN, Stopped at 03/13/25 0652 OR magnesium sulfate IVPB 4000 mg/100 mL in iso-osmotic water (40mg/mL premix), 4,000 mg, intravenous, PRN, Дмитрий Lara MD methocarbamoL (ROBAXIN) tablet 500 mg, 500 mg, oral, Q6H PRN, Venita Chan MD ondansetron (PF) (ZOFRAN) injection 4 mg, 4 mg, intravenous, Q4H PRN, Neelima Ta, STUDENT TRUCK DRIVER-ASSISTANT DIRECTOR OF [employer]IDENCE LIFE, 4 mg at 03/04/25 1700 oxyCODONE (ROXICODONE) immediate release tablet 2.5 mg, 2.5 mg, oral, Q4H PRN OR oxyCODONE (ROXICODONE) immediate release tablet 5 mg, 5 mg, oral, Q4H PRN, Venita Chan MD pantoprazole (PROTONIX) injection 40 mg, 40 mg, intravenous, Q24H JOSE, Ashok Hwang, DO, 40 mg at 03/14/25 0815 potassium chloride (K-TAB,KLOR-CON) CR tablet 20-50 mEq, 20-50 mEq, oral, PRN OR potassium chloride (KAYCIEL) 20 mEq/15 mL solution 20-50 mEq, 20-50 mEq, oral, PRN, Дмитрий Lara MD, 30 mEq at 03/14/25 0342 potassium chloride IVPB 10 mEq/50 mL in water (0.2 mEq/mL premix), 10 mEq, intravenous, PRN, Stopped at 03/12/25 1226 OR potassium chloride IVPB 10 mEq/100 mL in water (0.1 mEq/mL premix), 10 mEq, intravenous, PRN, Дмитрий Lara MD sodium phosphate 20 mmol in sodium chloride 0.9 % 250 mL IVPB, 20 mmol, intravenous, PRN OR sodium phosphate 20 mmol in sodium chloride 0.9 % 100 mL IVPB, 20 mmol, intravenous, PRN, Stopped at 03/14/25 0904 OR sod phos di, mono-K phos mono (K-PHOS NEUTRAL) 250 mg tablet 2 tablet, 2 tablet, oral, PRN, Дмитрий Lara MD sodium chloride 0.9 % flush 10 mL, 10 mL, intravenous, PRN, Deena Branch MD, 10 mL at 02/25/25 1857 sodium chloride 0.9 % flush 10 mL, 10 mL, intravenous, PRN, Ghassan Castillo MD, 10 mL at 03/08/25 0804 sodium chloride 0.9 % flush 10 mL, 10 mL, intravenous, Q8H, 10 mL at 03/14/25 0900 AND sodium chloride 0.9 % flush 10 mL, 10 mL, intravenous, PRN AND sodium chloride 0.9 % flush 20 mL, 20 mL,intravenous, PRN, Orion Damico MD, 20 mL at 03/12/25 1017 sodium chloride 0.9 % infusion, 20 mL/hr, intravenous, Continuous PRN, Neelima Ta APRN-ASSISTANT DIRECTOR OF [employer]ID[employer], Last Rate: 50 mL/hr at 03/11/25 0523, 50 mL/hr at 03/11/25 0523 sodium chloride 0.9 % infusion, 3 mL/hr, intra-arterial, Continuous, Fernanda Soliman MD, Last Rate: 3 mL/hr at 03/14/25 0614, 3 mL/hr at 03/14/25 0614 Home Medications: Prior to Admission medications Medication Sig Start Date End Date Taking? Authorizing Provider apixaban (ELIQUIS) 5 mg tablet Take 2 tablets (10 mg total) by mouth 2 (two) times a day for 7 days, THEN 1 tablet (5 mg total) 2 (two) times a day for 30 days. 03/05/25 04/11/25 Eleni Harding APRN-ASSISTANT DIRECTOR OF [employer]IDENCE LIFE Objective OBJECTIVE BP 143/69 Pulse 93 Temp 36.9 ??C (98.5 ??F) (Axillary) Resp 23 Ht 157.5 cm (5' 2.01 ) Wt 86 kg (189 lb 9.5 oz) SpO2 100% BMI 34.67 kg/m?? Intake/Output Summary (Last 24 hours) at 03/14/2025 1536 Last data filed at 03/14/2025 1100 Gross per 24 hour Intake 1438.06 ml Output 1685 ml Net -246.94 ml Constitutional: In no apparent distress lying in mechanical bed. Appearing chronically ill. PPS: 30% EOL Score: 17 Eyes: Anicteric sclera, normal lids, no discharge ENMT: Mucous membranes pink and moist CV: RRR, + edema Respiratory: No increased work of breathing. No retractions. MS: No sarcopenia Skin: No rashes on visible skin. Neuro: Grossly non focal, moving all extremities Psych: Non-anxious affect, AOx4 In preparation for, or response to, today's visit I Reviewed today's CBC/BMP, Reviewed recent CXR, and Reviewed recent progress notes PALLIATIVE CARE DISCUSSION Patient with complicated hospital course along with metastatic colon cancer at risk for further decompensation. Revisited goals of care. Patient is hoping to improve and follow up with oncology for treatment options for her cancer. Discussed code status full code vs DNR (nor chest compressions during cardiac arrest and to allow a natural ) and DNI (no intubation even in severe respiratory distress/arrest.) Patient requesting DNR but ok with intubation if needed. She is also wanting o complete POA paper work with her nephew as POA. Will consult alejandra services to assist with ACP. Palliative will continue to follow along. Code status: Full code changed to DNRCCA per patient's wishes PPS: 30% Prognosis: Overall appears poor. Will need to follow up with oncology if she improves to see about treatment options and prognosis. Treatment would likely be palliative in nature. Surrogate decision maker: Not , no children. Mother legal NOK. Wants to elect Nephew for POA. ASSESSMENT Metastatic Colorectal Cancer Palliative encounter Malignant Bowel Obstruction, Abdominal Pain/Distention Now s/p exploratory laparotomy with colectomy, bilateral salpingo-oophorectomy 03/07--> s/p 2nd look exp lap with washout, SBR, end ileostomy, and wound vac 03/09 Respiratory Failure, Shock, S/p Cardiac Arrest- extubated 03/12 PLAN Palliative encounter DNRCCA updated and DNR form placd in [facility] Preload Supervisor consulted for ACP Overall prognosis appears poor. She is wanting to follow up with oncology outpatient for tx options. DNRCCA but ok with intubation. She is at risk for further decompensation. Highly encouraged completion of POA paper work and living will. Palliative will continue to follow. Thank you for the opportunity to participate in the care of this patient. The palliative care team will continue to follow. Please contact us if we can be of additional assistance [phone]. Electronically signed by: ELLIOTT DUGAN Plan [id number] ELLIOTT Dugan 03/14/25 1553 * Matt Young MD - 03/14/2025 2:38 PM EDT Images from the original note were not included. [facility] rAtur Small, [facility] Nephrology Consultation Note Patient Name: Caren Suarez : 1955 Date of Service: 03/14/25 PCP: Riya Diego MD Attending Physician: Ghassan Castillo MD Admission Date: 02/25/2025 Length of stay: LOS: 17 days Chief complaint. No chief complaint on file. Reason for Consult: Acute Kidney Injury Assessment and Plan. 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 She reports having a hard time breathing and a cough that went away ( she has had a hard time breathing and had a cough but it went away ). She had been treated by her PCP with steroids and antibiotics without improvement. An outpatient CT abdomen/pelvis on 02/24/2025 revealed a large right adnexal mass, a solid right renal lesion, and likely metastases to the lungs and abdomen. Venous duplex showed bilateral DVTs. She was transferred from [place] to [facility] for further evaluation and management. In the emergency department, she was started on a heparin drip. Workup upon admission included a CTA chest on 02/25/2025, which confirmed moderate right-sided pulmonary emboli without right heart strain. She is currently being treated for a urinary tract infection and bacterial peritonitis with IV Rocephin and Flagyl, with Infectious Disease on board. Nephrology consultation was requested for acute kidney injury. Assessment Acute Kidney Injury, likely multifactorial with hemodynamic and prerenal components, with concern for acute tubular necrosis (ATN). The TASHA is in the setting of sepsis, treatment for bacterial peritonitis, and obs uropathy , There was contrast exposure on 02/24/2025. Cr has improved. Right hydronephrosis, 2.2 cm right renal mass lesion Urology evaluated the patient Mild hypernatremia on initial evaluation. Hypophosphatemia. Metabolic acidosis on initial evaluation. Volume Status: Euvolemic , possibly on low side Hypertension: Stable, though has been on the higher side. Hemodynamics: Echocardiogram on 02/26/2025 showed a normal LVEF of 60-65% with Grade I diastolic dysfunction and no evidence of right heart strain. Anemia Most recent hemoglobin is 10.8 g/dL. Sepsis secondary to bacterial peritonitis and UTI. 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 ? Rectal ca Acute pulmonary embolism and bilateral DVT. Malignant Bowel obstruction , patient is status post exploratory laparotomy, total colectomy, left in discontinuity, and BSO on 03/07/2025 , repeat Second Look laparotomy and ileostomy creation on 03/09/2025 Cardiac arrest intraoperatively, 03/07/2025 needing ACLS. Ventilator dependent respiratory failure postoperatively Plan We will start D5W at 125 ml/hr 24 hours to replete water deficit. Continue holding diuresis today. Replace phosphorus per protocol. Will check vitamin D level. Strict ins and outs / accurate documentation of urine out put / daily weights and Bladder scan Q12 Avoid nephrotoxins, avoid contrast exposure unless absolutely necessary, avoid hemodynamic instability Dose all medications to GFR Monitor Renal Chem panel daily in AM Thank you for this consultation, we will follow along with you regarding care of this patient whilethe patient is here in the hospital, please call if you have any questions or concerns. Matt Young MD on 03/14/2025 at 2:[address] [facility] [email or web address] Schedule : See Epic on-call schedule for [facility] ( [facility] ) Nephrology Working Hours : Epic chat during working hours, if no response please use on- call physician reach out as below After Hours : Answering service contact : [phone] Office Phone number: [phone] Subjective Patient seen at bedside, she is sitting in chair, she is having some nausea and vomiting, edema is much better. No worsening in the respiratory status Discussed with surgery team, we will hold off on diuresis for today. Past Medical History: Diagnosis Date Deep vein thrombosis (CMS-HCC) Past Surgical History: Procedure Laterality Date APPLICATION WOUND VAC MIDSECTION N/A 03/09/2025 Performed by Ghassan Castillo MD at [facility] CLOSURE WOUND ABDOMEN N/A 03/09/2025 Performed by Ghassan Castillo MD at [facility] ILEOSTOMY CREATION N/A 03/09/2025 Performed by Ghassan Castillo MD at [facility] LAPAROTOMY EXPLORATORY N/A 03/09/2025 Performed by Ghassan Castillo MD at [facility] LAPAROTOMY EXPLORATORY N/A 03/07/2025 Performed by Ghassan Castillo MD at [facility] RESECTION BOWEL SMALL N/A 03/09/2025 Performed by Ghassan Castillo MD at [facility] SALPINGO-OOPHORECTOMY Bilateral 03/07/2025 Performed by Faith Celis MD at [facility] TOTAL COLECTOMY N/A 03/07/2025 Performed by Ghassan Castillo MD at [facility] Family History Problem Relation Age of Onset Breast cancer Neg Hx Social History Socioeconomic History Marital status: Single Spouse name: Not on file Number of children: Not on file Years of education: Not on file Highest education level: Not on file Occupational History Not on file Tobacco Use Smoking status: Former Types: Cigarettes Smokeless tobacco: Never Substance and Sexual Activity Alcohol use: Never Drug use: Never Sexual activity: Not on file Other Topics Concern Not on file Social History Narrative Not on file Social Drivers of Health Financial Resource Strain: Not on file Food Insecurity: No Food Insecurity (02/25/2025) Hunger Screening Food Insecurity - Worry: Never True Food Insecurity - Inability: Never True Transportation Needs: No Transportation Needs (02/25/2025) PRAPARE - Transportation Lack of Transportation (Medical): No Lack of Transportation (Non-Medical): No Physical Activity: Not on file Stress: Not on file Social Connections: Not on file Interpersonal Safety: Not At Risk (02/25/2025) Humiliation, Afraid, Rape, and Kick questionnaire Fear of Current or Ex-Partner: No Emotionally Abused: No Physically Abused: No Sexually Abused: No Housing Instability: Low Risk (02/25/2025) Housing Instability Housing Instability: No Prior to Admission medications Medication Sig Start Date End Date Taking? Authorizing Provider apixaban (ELIQUIS) 5 mg tablet Take 2 tablets (10 mg total) by mouth 2 (two) times a day for 7 days, THEN 1 tablet (5 mg total) 2 (two) times a day for 30 days. 03/05/25 04/11/25 Eleni Harding APRN-DUYEN Allergies Allergen Reactions Penicillin ROS: Constitutional: No fever, chills, lethargy, weakness and wt loss. Cardiac: No chest pain, dyspnea, orthopnea or PND. Chest: No cough, phlegm or wheezing. Abdomen: No nausea, no vomiting or diarrhea. : No hematuria, pyuria, dysuria or flank pain. Extremities: No swelling or joint pains. Physical Exam: VITALS BP (!) 148/95 Pulse 104 Temp 36.6 ??C (97.9 ??F) (Axillary) Resp (!) 28 Ht 157.5 cm (5' 2.01 ) Wt 86 kg (189 lb 9.5 oz) SpO2 98% BMI 34.67 kg/m?? Wt Readings from Last 3 Encounters: 03/14/25 86 kg (189 lb 9.5 oz) 02/24/25 74.4 kg (164 lb) BMI: Body mass index is 34.67 kg/m??. I/O (24 Hours) Intake/Output Summary (Last 24 hours) at 03/14/2025 1438 Last data filed at 03/14/2025 1100 Gross per 24 hour Intake 1468.06 ml Output 1950 ml Net -481.94 ml General: Awake, alert, no acute distress HEENT: Atraumatic, normocephalic. Anicteric sclera. [place] and moist oral mucosa. Neck No JVD. Chest: Bilateral air entry, clear to auscultation, no wheezing, rhonchi or rales. Cardiovascular: RRR, S1S2, no murmur, rub or gallop. No lower extremity edema. Abdomen: Soft, status post surgery, ileostomy in place Musculoskeletal: No cyanosis or clubbing. Integumentary: [place], warm and dry. Free from rash or lesions. CARBIDE GRINDER: Examination grossly nonfocal Medications Scheduled Meds: acetaminophen, 650 mg, oral, Q6H folic acid, 1 mg, nasogastric, Daily insulin lispro, 2-10 Units, subcutaneous, Q6H lidocaine, 1 patch, transdermal, Daily pantoprazole, 40 mg, intravenous, Q24H JOSE sodium chloride, 10 mL, intravenous, Q8H AND sodium chloride, 10 mL, intravenous, PRN AND sodium chloride, 20 mL, intravenous, PRN Continuous Infusions: dextrose 5 % in water, 100 mL/hr heparin, 300-3,500 Units/hr, Last Rate: 1,050 Units/hr (03/14/25 1201) sodium chloride 0.9 %, 20 mL/hr, Last Rate: 50 mL/hr (03/11/25 0523) sodium chloride 0.9 %, 3 mL/hr, Last Rate: 3 mL/hr (03/14/25 0614) PRN Meds: calcium gluconate OR calcium gluconate OR calcium gluconate dextrose dextrose 5 % in water dextrose 50 % in water (D50W) glucagon (human recombinant) heparin (porcine) hydrALAZINE magnesium sulfate OR magnesium sulfate methocarbamoL ondansetron oxyCODONE OR oxyCODONE potassium chloride OR potassium chloride potassium chloride in water OR potassium chloride in water sodium phosphate IV OR sodium phosphate IV - central line OR sod phos di, mono-K phos mono sodium chloride sodium chloride sodium chloride AND sodium chloride AND sodium chloride sodium chloride 0.9 % Results Review Renal Chemistry Results from last 7 days Lab Units 03/14/25 0234 03/13/25 1814 03/13/25 1208 03/13/25 0933 03/13/25 0153 03/12/25 1355 03/12/25 0804 03/12/25 0205 03/11/25 0210 03/10/25 1316 03/10/25 0331 SODIUM mmol/L 148* -- -- -- 147* -- -- 144 140 -- 142 POTASSIUM mmol/L 3.6 4.2 -- 3.5 3.1* 4.0 < > 3.1* 3.9 < > 4.5 CHLORIDE mmol/L 108 -- -- -- 106 -- -- 109 109 -- 108 CO2 mmol/L 35* -- -- -- 34* -- -- 26 23 -- 26 BUN mg/dL 13 -- -- -- 16 -- -- 22 29* -- 31* CREATININE mg/dL 0.46 -- -- -- 0.64 -- -- 0.81 0.99 -- 1.13* CALCIUM mg/dL 7.5* -- -- -- 7.4* -- -- 7.0* 7.4* -- 7.9* MAGNESIUM mg/dL 2.1 -- -- 2.3 1.9 -- -- 1.8 2.1 -- 2.2 PHOSPHORUS mg/dL 1.8* -- 2.6 3.0 2.1* -- -- 2.4 2.8 -- 3.7 < > = values in this interval not displayed. Hepatic: Lab Results Component Value Date AST 33 03/09/2025 AST 108 (H) 03/08/2025 AST 21 02/24/2025 ALT 23 03/09/2025 ALT 33 (H) 03/08/2025 ALT 15 02/24/2025 ALKPHOS 38 (L) 03/09/2025 ALKPHOS 37 (L) 03/08/2025 ALKPHOS 105 02/24/2025 BNP Lab Results Component Value Date BNP 22 03/08/2025 BNP 34 03/06/2025 BNP 61 02/24/2025 CBC Results from last 7 days Lab Units 03/14/25 0234 03/13/25 0154 03/12/25 0205 03/11/25 1640 03/11/25 0210 03/10/25 1316 03/10/25 0331 WBC x10E9/L 6.4 5.5 5.9 -- 8.3 -- 10.3 HEMOGLOBIN g/dL 11.0* 10.4* 10.2* 10.2* 10.1* < > 11.3* HEMATOCRIT % 34.3* 32.5* 31.2* 31.2* 30.2* < > 34.5* PLATELETS X10E9/L 147* 105* 92* -- 89* -- 117* < > = values in this interval not displayed. Results from last 7 days Lab Units 03/14/25 1415 03/14/25 0820 03/14/25 0234 03/14/25 0233 03/13/252004 BEDSIDE GLUCOSE mg/dL 130* 153* -- 145* 140* GLUCOSE mg/dL -- -- 126* -- -- Urine Studies: Lab Results Component Value Date COLOR Yellow 03/06/2025 TURBIDITY Hazy (A) 03/06/2025 SPECIFICGRA 1.023 03/06/2025 NITRITE Negative 03/06/2025 PHURINE 6.0 03/06/2025 LEUKOCYTE Small (A) 03/06/2025 PROTEIN 50 mg/dL (A) 03/06/2025 KETONES 20 mg/dL (A) 03/06/2025 UROBILINOGEN <1.1 eu/dL 03/06/2025 BLOODHGB Large (A) 03/06/2025 Lab Results Component Value Date UPROCRTRAT 0.25 (H) 03/06/2025 Urine Sodium: No components found for: CRYSTAL Urine Potassium: No results found for: KUR Urine Chloride: No results found for: CLUR Urine Osmolarity: No components found for: OSMOU Urine Creatinine: No results found for: LABCREA Urine Eosinophils: No components found for: UEOS Urine Protein: No components found for: TPU Immunology Profile No results found for: PROTELECTR , SEDRATE , CRP , RF , ANASCREEN , ANTIDSDNA , C3 , C4 , ANCA , MYELOP , PROTEINASE3 , ANTIGLOMERU No results found for: HAV , HEPAIGM , HEPBIGM , HEPBCAB , HBEAG , HEPCAB SP: No results found for: SP C3:No results found for: C3 C4:No results found for: C4 MPO ANCA: No results found for: MPO PR3 ANCA: No components found for: PR3 hepatitis serologies ANTIGBM:No components found for: GBMABIGG HEPATITIS B SURFACE AG: No results found for: HEPBSAG HEPATITIS C AB: No results found for: HEPCAB Electrophoresis: SPEP:No results found for: PROT , LABALPH , LABBETA , PATH UPEP:No results found for: LABPE Anemia Profile Lab Results Component Value Date WBC 6.4 03/14/2025 WBC 5.5 03/13/2025 HGB 11.0 (L) 03/14/2025 HGB 10.4 (L) 03/13/2025 HCT 34.3 (L) 03/14/2025 HCT 32.5 (L) 03/13/2025 PLT 147 (L) 03/14/2025 PLT 105 (L) 03/13/2025 Lab Results Component Value Date IRON 12 (L) 02/26/2025 TIBC 321 02/26/2025 FERRITIN 78 02/26/2025 Bone Mineral Profile Lab Results Component Value Date CALCIUM 7.5 (L) 03/14/2025 Results from last 7 days Lab Units 03/14/25 0234 03/13/25 0933 03/13/25 0153 MAGNESIUM mg/dL 2.1 2.3 1.9 Echocardiogram: Echo complete W/O contrast Result Date: 02/26/2025 Left Ventricle: Left ventricle is small. Systolic function is normal with an ejection fraction of 60-65%. No segmental wall motion abnormalities. Grade I diastolic dysfunction (impaired relaxation) is present. Lateral E' is 11.70 cm/s. Medial E' is 7.94 cm/s. Right Ventricle: Right ventricular sizeappears normal. The right ventricular basal diameter is 22.0 mm. Systolic function is normal. Aortic Valve: There is trace to mild regurgitation. There is no evidence of aortic valve stenosis. Thank you for the consultation. Please do not hesitate to contact us for any further questions/concerns. We will continue to follow along with you. * Nuvia Flannery, STUDENT TRUCK DRIVER-ASSISTANT DIRECTOR OF [employer] - 03/14/2025 9:50 AM EDT Images from the original note were not included. Division of Infectious Diseases Progress note Academic Team Please contact us via Cupple chat. After hours, call [phone] Patient name: Caren Suarez Patient Today's Date and Time: 03/14/2025, 9:50 AM Admission Date: 02/25/2025 Primary Care Physician: Riya Diego MD Impression and Recommendations: Leukocytosis Large bowel obstruction Metastatic colorectal cancer Peritonitis S/P paracentesis 02/28/2025 - nucleated cells are elevated at 1900 with neutrophil predominance (60%) Peritoneal fluid culture is negative to date Abdominal soft tissue mass bx path report +mucinous adenocarcinoma c/w colorectal origin Status post exp lap, total colectomy, bilateral salpingo-oopherectomy, vac placemement 03/07 Status post creation of ileostomy and abdominal closure Wbc has normalized Completed ceftriaxone and metronidazole Will monitor off antibiotics General surgery following Intra operative cardiac arrest Acute respiratory failure Patient is extubated Vent management per critical care Urinary retention Positive urine culture Patient was retaining urine and camara place last week. Urine culture +enterococcus. Patient was asymptomatic No fever or leukocytosis. Low suspicion for uti at this time Monitor off treatment TASHA Renal mass concerning for RCC Right hydronephrosis Positive urine culture Urine culture +VRE. No urinary symptoms when culture obtained. No systemic signs of infection at this time. No indication for treatment. Urology and nephrology following Acute PE, with R heart strain Multiple DVT On heparin Subjective Interval History: Patient seen and examined at bedside. Awakens and alert. Denies abdominal pain. No fever, chills orsweats. No shortness of breath or cough. No nausea, vomiting. Objective Physical Examination : BP 143/72 Pulse 84 Temp 36.4 ??C (97.5 ??F) (Axillary) Resp 23 Ht 157.5 cm (5' 2.01 ) Wt 86 kg (189 lb 9.5 oz) SpO2 97% BMI 34.67 kg/m?? Temperature Range: Temp: 36.4 ??C (97.5 ??F) Temp Av.7 ??C (98 ??F) Min: 36.4 ??C (97.5 ??F) Max: 36.9 ??C (98.5 ??F) General Appearance:lethargic and in no apparent distress Eyes: Sclera anicteric; conjunctivae pink Neck: Supple, without lymphadenopathy. Pulmonary/Chest: Clear to auscultation, without wheezes, rales, or rhonchi. Left sided chest tube in place Cardiovascular: Regular rate and rhythm without murmurs, rubs, or gallops. Abdomen: distended. Soft. Vac in place Extremities: No cyanosis, clubbing, , or effusions. +BLE edema Neurologic: Bulk and tone are normal. No atrophy is noted. Skin: No rash or lesions. Laboratory data: I have independently reviewed the following labs: Results from last 7 days Lab Units 03/14/25 0234 03/13/25 0154 03/12/25 0205 03/09/25 1041 03/09/25 0332 WBC x10E9/L 6.4 5.5 5.9 < > 15.5* HEMOGLOBIN g/dL 11.0* 10.4* 10.2* < > 12.7 HEMATOCRIT % 34.3* 32.5* 31.2* < > 39.3 MCV fL 82 82 81 < > 81 PLATELETS X10E9/L 147* 105* 92* < > 155 EOS ABS MAN 10*3/uL -- -- -- -- 0.0 BASOS ABS MAN 10*3/uL -- -- -- -- 0.0 < > = values in this interval not displayed. Results from last 7 days Lab Units 03/14/25 02303/13/25 18103/13/25 0933 03/13/25 0153 03/12/25 0804 03/12/25 0205 03/09/25 1833 03/09/25 1041 03/08/25 0043 03/08/25 0032 SODIUM mmol/L 148* -- -- 147* -- 144 < > 139 < > 138 PORTABLE SODIUM -- -- -- -- -- -- -- -- < > -- POTASSIUM mmol/L 3.6 4.2 3.5 3.1* < > 3.1* < > 4.9 < > 3.5 POC POTASSIUM -- -- -- -- -- -- -- -- < > -- CHLORIDE mmol/L 108 -- -- 106 -- 109 < > 109 < > 105 CO2 mmol/L 35* -- -- 34* -- 26 < > 23 < > 19* BUN mg/dL 13 -- -- 16 -- 22 < > 30* < > 29* CREATININE mg/dL 0.46 -- -- 0.64 -- 0.81 < > 1.09* < > 1.18* CALCIUM mg/dL 7.5* -- -- 7.4* -- 7.0* < > 7.8* < > 8.3* ALBUMIN g/dL -- -- -- -- -- -- -- 2.5* -- 1.9* ALK PHOS U/L -- -- -- -- -- -- -- 38* -- 37* ALT U/L -- -- -- -- -- -- -- 23 -- 33* AST U/L -- -- -- -- -- -- -- 33 -- 108* < > = values in this interval not displayed. Invalid input(s): BILIRUBINU , BILIRUBINNU Echo complete W/O contrast Result Date: 02/26/2025 Left Ventricle: Left ventricle is small. Systolic function is normal with an ejection fraction of 60-65%. No segmental wall motion abnormalities. Grade I diastolic dysfunction (impaired relaxation) is present. Lateral E' is 11.70 cm/s. Medial E' is 7.94 cm/s. Right Ventricle: Right ventricular sizeappears normal. The right ventricular basal diameter is 22.0 mm. Systolic function is normal. Aortic Valve: There is trace to mild regurgitation. There is no evidence of aortic valve stenosis. Imaging Studies: Procedure Component Value Units Date/Time X-ray chest 1 view [[id number]] Collected: 03/12/25440 Order Status: Completed Updated: 03/12/25444 Narrative: Clinical history: Intubated. Comparisons: 03/09/2025 through 03/11/2025. Findings: AP portable supine chest radiograph obtained. Endotracheal tube terminates 5 cm above thelevel of the venecia. Left-sided chest tube unchanged with sidehole likely just outside of the levelof the pleural space similar to previous 3 exams. There is no pneumothorax. There is bibasilar subsegmental atelectasis. Right IJ central venous catheter/sheath unchanged and confluence of innominate veins. PH probe terminates in distal esophagus. Nasogastric tube terminates off film in left upper abdomen. Pleural effusion. Continued decrease in volume of left lateral chest wall subcutaneous emphysema. IMPRESSION: 1. No pneumothorax. 2. Satisfactory ET tube position. Finalized by Arsalan Lott MD on 03/12/2025 4:44 AM I have personally reviewed this study. Cultures: Microbiology Results Procedure Component Value Units Date/Time Urine Culture Urine, Indwelling Catheter [[id number]] (Abnormal) (Susceptibility) Collected: 03/07/25 1122 Specimen: Urine, Indwelling Catheter Updated: 03/10/25 1127 CULTURE RESULTS 50,000-100,000 CFU/mL Vancomycin resistant Enterococcus species Susceptibility Vancomycin resistant Enterococcus species Not Specified Ampicillin >=32.0 Resistant Daptomycin 2.5 Susceptible (dose dependent) Levofloxacin >=8.0 Resistant Linezolid 2.0 Susceptible Nitrofurantoin 64 Intermediate Vancomycin >=32.0 Resistant Medications: acetaminophen, 650 mg, oral, Q6H folic acid, 1 mg, nasogastric, Daily insulin lispro, 2-10 Units, subcutaneous, Q6H lidocaine, 1 patch, transdermal, Daily pantoprazole, 40 mg, intravenous, Q24H JOSE sodium chloride, 10 mL, intravenous, Q8H AND sodium chloride, 10 mL, intravenous, PRN AND sodium chloride, 20 mL, intravenous, PRN tamsulosin, 0.4 mg, oral, Nightly Thank you for allowing us to participate in the care of this patient. Please call with questions. - ELLIOTT RENDON 03/14/25 9:50 AM ELLIOTT Rendon 03/13/25 1206 ELLIOTT Rendon 03/14/25 1155 * ELLIOTT Shankar - 03/14/2025 8:22 AM EDT Images from the original note were not included. [facility] Hematology and Oncology - Daily Progress Note 03/14/2025, 8:22 AM Impression/Plan: Metastatic Colorectal Cancer -Initially favoring ovarian primary given clinical pattern, but now with pathology positive for colorectal primary -Initial CT a/p showed large partially solid and partially cystic lesion in the right adnexa measuring 16 cm x 12 cm x 11 cm + lower anterior abdominal soft tissue nodules + 2.5 cm solid R renal lesion + diffuse intraperitoneal fluid -CTA chest revealed numerous pulmonary nodules -CA-825=5100, ZQ4=700, CEA=24.6, CA 19-9 WNL -TVUS noted an 18.2 cm cystic and solid lesion in the pelvis with ascites and peritoneal nodularity -S/p IR performed paracentesis and biopsy of soft tissue nodules 02/28 -Ascites fluid non-diagnostic -Abdominal soft tissue biopsy pathology positive for mucinous adenocarcinoma consistent with colorectal origin -Will need tor recover from surgery before she will be considered for systemic cancer treatments -Palliative medicine consult for assistance with pain. GOC discussions may also be needed in the near future pending her clinical course -She will follow up with Dr. Romero after discharge for further management Malignant Bowel Obstruction, Abdominal Pain/Distention -Repeat CT a/p 03/06 shows Colonic dilatation with transition at the sigmoid junction. Concern for obstruction from the known large rectal mass vs multicentric colorectal carcinoma + Similar appearanceof a 20 cm cystic pelvic lesion, recently characterized as rectal adenocarcinoma + Peritoneal carcin omatosis -Now s/p exploratory laparotomy with colectomy, bilateral salpingo-oophorectomy 03/07--> s/p 2nd look exp lap with washout, SBR, end ileostomy, and wound vac 03/09 -Patient coded in surgery, and now remains in ICU, she was extubated 03/12 -General surgery following Renal Mass, Hydroureteronephrosis, TASHA, hyperuricemia -CT imaging shows 2.5 cm R interpolar renal mass concerning for RCC + Mild right hydroureteronephrosis, likely secondary to pelvic mass effect on the ureter -Urology, nephrology following PE/DVT -Likely provoked by metastatic malignancy -CTA shows Moderate right sided pulmonary emboli without evidence of right heart strain -Dopplers revealing acute R femoropopliteal, deep tibioperoneal, and deep calf muscle DVT + L deep calf muscle DVT -On heparin gtt, likely transition to DOAC prior to discharge pending clinical course -Repeat CTA chest 03/08 showed decreased burden of R pulmonary embolus Supratherapeutic INR -In setting of advanced metastatic disease, Eliquis therapy, acute infection -INR corrected s/p preoperative Vit K +/- FFP reversal Anemia/thrombocytopenia -Largely multifactorial due to severe B12 deficiency, folate deficiency, Iron deficiency anemia in setting of vaginal bleeding d/t #1, acute infection, metastatic GI malignancy, renal insufficiency, surgical blood loss -Hgb=11.0(10.4, 10.1, 11.3, 11.4, 12.7, 12.7) microcytic -Plt =147k(105k, 89k, 117k, 140k, 155k, 187k) -HPF4ab is negative -Last transfused PRBC 03/08 -S/p IM B12 & IV iron -Continue folic acid -No hemolysis -EGD/colonoscopy were planned, but not completed as patient could not tolerate bowel prep, likely due to bowel obstruction as discussed above -Transfuse for hgb<7 -Have arranged for follow up with Dr. Romero UTI -On IV antibiotics -As per other services Respiratory Failure, Shock, S/p Cardiac Arrest -Extubated 03/12 -As per crit care team Continue management of other medical problems as per appropriate services. Patient discussed with Dr. Jean. Please call with questions. Interval History: Patient seen and examined at bedside, she is in bed alert and oriented, appears slightly improved today. She denies any current pain. Significant bilateral lower extremity swelling is still noted. NGwith tube feed in place She is afebrile. VS are stable. She remains on 4L NC. No acute distress noted. Physical Examination : Temp: [36.4 ??C (97.5 ??F)-36.9 ??C (98.5 ??F)] 36.4 ??C (97.5 ??F) Pulse: [66-99] 80 Resp: [13-21] 19 BP: (130-161)/(55-80) 132/67 SpO2: [94 %-100 %] 100 % O2 Device: Nasal cannula O2 Flow Rate (L/min): [4 L/min-5 L/min] 4 L/min Temperature Range: Temp: 36.4 ??C (97.5 ??F) Temp Av.7 ??C (98 ??F) Min: 36.4 ??C (97.5 ??F) Max: 36.9 ??C (98.5 ??F) Weight change: -3.5 kg (-7 lb 11.5 oz) Physical Exam Vitals and nursing note reviewed. Constitutional: General: She is not in acute distress. Appearance: She is normal weight. She is ill-appearing HENT: Head: Normocephalic and atraumatic. Right Ear: External ear normal. Left Ear: External ear normal. Nose: Nose normal. Mouth/Throat: Eyes: General: No scleral icterus. Extraocular Movements: Extraocular movements intact. Pupils: Pupils are equal, round Cardiovascular: Rate and Rhythm: Normal rate and regular rhythm. Pulmonary: Effort: Pulmonary effort is normal. No respiratory distress Abdominal: General: There is distension. Tenderness: There is abdominal tenderness. There is guarding. Musculoskeletal: Right lower leg: +2 edema Left lower leg: +2 edema Skin: General: Skin is warm and dry. Coloration: Skin is not jaundiced. Findings: Abdominal incision, not visualized Neurological: General: Psychiatric: Mood and Affect: Laboratory data: Results from last 7 days Lab Units 03/14/25 02303/13/2515303/12/25 0205 WBC x10E9/L 6.4 5.5 5.9 HEMOGLOBIN g/dL 11.0* 10.4* 10.2* HEMATOCRIT % 34.3* 32.5* 31.2* PLATELETS X10E9/L 147* 105* 92* MCV fL 82 82 81 Results from last 7 days Lab Units 03/14/25 0234 03/13/25 0154 03/12/25 0205 03/11/25 0210 03/10/25 2030 PROTIME sec 14.2* 14.4* 13.5* 13.4* -- INR 1.3* 1.3* 1.2 1.2 -- APTT sec -- -- 48* 58* 55* Results from last 7 days Lab Units 03/14/25 0820 03/14/25 0234 03/14/25 0233 03/13/25 2005 03/13/25 1814 03/13/25 1455 03/13/25 0933 03/13/25 0457 03/13/25 0154 03/13/25 0153 03/12/25 0311 03/12/25 0205 03/09/25 1549 03/09/25 1041 03/08/25 0043 03/08/25 0032 SODIUM mmol/L -- 148* -- -- -- -- -- -- -- 147* -- 144 < > 139 < > 138 PORTABLE SODIUM -- -- -- -- -- -- -- -- -- -- -- -- -- -- < > -- POTASSIUM mmol/L -- 3.6 -- -- 4.2 -- 3.5 -- -- 3.1* < > 3.1* < > 4.9 < > 3.5 POC POTASSIUM -- -- -- -- -- -- -- -- -- -- -- -- -- -- < > -- CHLORIDE mmol/L -- 108 -- -- -- -- -- -- -- 106 -- 109 < > 109 < > 105 CO2 mmol/L -- 35* -- -- -- -- -- -- -- 34* -- 26 < > 23 < > 19* BUN mg/dL -- 13 -- -- -- -- -- -- -- 16 -- 22 < > 30* < > 29* CREATININE mg/dL -- 0.46 -- -- -- -- -- -- -- 0.64 -- 0.81 < > 1.09* < > 1.18* CALCIUM mg/dL -- 7.5* -- -- -- -- -- -- -- 7.4* -- 7.0* < > 7.8* < > 8.3* ALK PHOS U/L -- -- -- -- -- -- -- -- -- -- -- -- -- 38* -- 37* ALT U/L -- -- -- -- -- -- -- -- -- -- -- -- -- 23 -- 33* AST U/L -- -- -- -- -- -- -- -- -- -- -- -- -- 33 -- 108* POC GLUCOSE -- -- -- -- -- -- -- -- -- -- -- -- -- -- < > -- BEDSIDE GLUCOSE mg/dL 153* -- 145* < > -- < > -- < > -- -- < > -- < >-- < > -- GLUCOSE mg/dL -- 126* -- -- -- -- -- -- -- 120* -- 86 < > 114* < > 258* INR -- 1.3* -- -- -- -- -- -- 1.3* -- -- 1.2 < > -- < > 2.3* MAGNESIUM mg/dL -- 2.1 -- -- -- -- 2.3 -- -- 1.9 -- 1.8 < > 2.4 < > 2.1 < > = values in this interval not displayed. VITAMIN B12: Lab Results Component Value Date [id number] 110 (L) 02/26/2025 FOLATE: Lab Results Component Value Date FOLATE 3.3 (L) 02/26/2025 IRON: Lab Results Component Value Date IRON 12 (L) 02/26/2025 TIBC 321 02/26/2025 FERRITIN 78 02/26/2025 Medications: acetaminophen, 650 mg, oral, Q6H folic acid, 1 mg, nasogastric, Daily insulin lispro, 2-10 Units, subcutaneous, Q6H lidocaine, 1 patch, transdermal, Daily pantoprazole, 40 mg, intravenous, Q24H JOSE sodium chloride, 10 mL, intravenous, Q8H AND sodium chloride, 10 mL, intravenous, PRN AND sodium chloride, 20 mL, intravenous, PRN tamsulosin, 0.4 mg, oral, Nightly ELLIOTT Shankar 03/14/25 1415 Cosigned by Mallory Jean MD at 03/15/2025 7:15 AM EDT * OK Dang - 03/14/2025 7:27 AM EDT Images from the original note were not included. Colorectal Surgery Daily Progress Note Patient Name: Caren Suarez Admit Date: 02/25/2025 Length of Stay: 17 Days Admitting Physician: Deena Branch MD Subjective: Patient is postoperative day 6 from exploratory laparotomy, total colectomy, left in discontinuity,and BSO and post operative day 4 from abdominal washout, end ileostomy creation, and abdominal closure. Weaned to On 4 L per NC, camara out yesterday. Tube feeds being advanced Q12 hours, on clear liquid diet without much intake Objective: Vitals: 03/14/25 0600 BP: 151/71 Pulse: 83 Resp: 21 Temp: SpO2: 100% Temp: [36.4 ??C (97.5 ??F)-36.9 ??C (98.5 ??F)] 36.8 ??C (98.2 ??F) Pulse: [66-99] 83 Resp: [13-21] 21 BP: (129-161)/(55-80) 151/71 SpO2: [94 %-100 %] 100 % O2 Device: Nasal cannula O2 Flow Rate (L/min): [4 L/min-5 L/min] 4 L/min Allergies Allergen Reactions Penicillin Intake/Output last 3 shifts: I/O last 3 completed shifts: In: 2386 [I.V.:1172.7; NG/GT:691; IV Piggyback:522.3] Out: 4225 [Urine:3250; Drains:25; Stool:950] Intake/Output this shift: No intake/output data recorded. Dietary Orders (From admission, onward) Start Ordered 03/13/25 1300 Adult Diet Tray and Continuous Tube Feeding Clear Liquid; Tube feeding With Tray- Continuous; Nasogastric or Oral gastric feeding tube; Standard 1.5 kcal; 10; 10; Every 12 hours; 45 Diet effective now References: Formulary Card Question Answer Comment Diet Type: Clear Liquid Diet Type: Tube feeding With Tray- Continuous Tube Type: Nasogastric or Oral gastric feeding tube Tube Feeding Formula: Standard 1.5 kcal Tube Feeding Start Rate (mL/hour): 10 Increase Rate by (mL/hour): 10 Frequency of Rate increase: Every 12 hours Goal Rate (mL/hour): 45 03/13/25 1259 Physical Exam Physical Exam Constitutional: General: She is sleeping. Interventions: Nasal cannula in place. Comments: +NG Cardiovascular: Rate and Rhythm: Regular rhythm. Pulmonary: Effort: Pulmonary effort is normal. Abdominal: General: Bowel sounds are normal. Comments: Wound vac in place. Stoma pink, brown liquid stool noted in ostomy bag Neurological: Mental Status: She is easily aroused. 24 hour urine output: 4680 24hour wound VAC output: 75 mL Ileostomy 400ml Laboratory Data: Latest Reference Range & Units 03/11/25 02:10 03/11/25 16:40 03/12/25 02:05 03/13/25 01:54 03/14/25 02:34 White Blood Cells 4 - 11 x10E9/L 8.3 5.9 5.5 6.4 RBC count 3.8 - 5.2 X10E12/L 3.75 (L) 3.85 3.97 4.17 Hemoglobin 11.7 - 15.5 g/dL 10.1 (L) 10.2 (L) 10.2 (L) 10.4 (L) 11.0 (L) Hematocrit 35 - 47 % 30.2 (L) 31.2 (L) 31.2 (L) 32.5 (L) 34.3 (L) MCV 80 - 100 fL 80 81 82 82 MCH 27 - 34 pg 26.8 (L) 26.4 (L) 26.1 (L) 26.4 (L) MPV 7 - 12 fL 8.2 8.3 8.3 8.3 MCHC 32 - 36 g/dL 33.4 32.6 31.9 (L) 32.1 RDW 11.5 - 15 % 26.6 (H) 26.7 (H) 27.6 (H) 26.7 (H) Platelets 150 - 450 X10E9/L 89 (L) 92 (L) 105 (L) 147 (L) (L): Data is abnormally low (H): Data is abnormally high Latest Reference Range & Units 03/13/25 01:53 03/13/25 09:33 03/13/25 18:14 03/14/25 02:34 Sodium 134 - 146 mmol/L 147 (H) 148 (H) Potassium 3.5 - 5.0 mmol/L 3.1 (L) 3.5 4.2 3.6 Chloride 98 - 109 mmol/L 106 108 CARBON DIOXIDE 22 - 32 mmol/L 34 (H) 35 (H) Glucose 65 - 99 mg/dL 120 (H) 126 (H) Creatinine 0.40 - 1.00 mg/dL 0.64 0.46 BUN 5 - 27 mg/dL 16 13 (H): Data is abnormally high (L): Data is abnormally low Component Latest Ref Rng 03/14/2025 Phosphorus 2.4 - 4.9 mg/dL 1.8 (L) Lab Results Component Value Date INR 1.3 (H) 03/14/2025 INR 1.3 (H) 03/13/2025 INR 1.2 03/12/2025 PROTIME 14.2 (H) 03/14/2025 PROTIME 14.4 (H) 03/13/2025 PROTIME 13.5 (H) 03/12/2025 acetaminophen, 650 mg, oral, Q6H folic acid, 1 mg, nasogastric, Daily insulin lispro, 2-10 Units, subcutaneous, Q6H lidocaine, 1 patch, transdermal, Daily pantoprazole, 40 mg, intravenous, Q24H JOSE sodium chloride, 10 mL, intravenous, Q8H AND sodium chloride, 10 mL, intravenous, PRN AND sodium chloride, 20 mL, intravenous, PRN tamsulosin, 0.4 mg, oral, Nightly calcium gluconate OR calcium gluconate OR calcium gluconate dextrose dextrose 5 % in water dextrose 50 % in water (D50W) glucagon (human recombinant) heparin (porcine) hydrALAZINE HYDROmorphone [DISCONTINUED] HYDROmorphone OR HYDROmorphone magnesium sulfate OR magnesium sulfate methocarbamoL ondansetron oxyCODONE OR oxyCODONE potassium chloride OR potassium chloride potassium chloride in water OR potassium chloride in water sodium phosphate IV OR sodium phosphate IV - central line OR sod phos di, mono-K phos mono sodium chloride sodium chloride sodium chloride AND sodium chloride AND sodium chloride sodium chloride 0.9 % Imaging: X-ray chest 1 view CLINICAL HISTORY: Postextubation Comparison: 03/12/2025 Views: 1 view FINDINGS: * NG tube courses below GE junction. Double-lumen catheter overlies SVC. Lower lobe atelectasis andsmall effusions. No pneumothorax. Subcutaneous gas slightly decreased overlying left chest as compared to previous exam. IMPRESSION: * No significant change Finalized by Jb Cifuentes MD on 03/13/2025 7:02 AM Assessment: Caren Suarez is a 69 y.o. 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 Patient's surgery was complicated by obstructive shock and cardiac collapse resulting in need for ACLS. ROSC was obtained and patient was transferred to [facility] postoperatively. Patient subsequently went for 2nd loop laparotomy, fascial closure, ileostomy creation on 03/09/2025. 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 2.2 cm right interpolar renal mass concerning for RCC Right-sided PE without heart strain Left pneumothorax, resolved, chest tube out Multiple DVT Pulmonary nodules likely metastasis Obstructive shock from PE now off vasopressors Status post cardiac arrest intraoperatively Acute blood loss anemia, Hgb up to 11 coagulopathy, improving Thrombocytopenia, stable Metabolic acidosis Acute respiratory failure requiring mechanical ventilation, now extubated VRE UTI, no abx indicated for now per ID Peritonitis diagnosed on paracentesis 02/28/25, with complete treatment, now on empiric antibiotics Plan: Suggest continuation of tube feeds until adequate po intake Refeeding precautions given electrolyte derangement Continue heparin, not ready for DOAC yet Antibiotics per ID Incentive spirometry 10 x per hour Wound care, wound vac per ET Appreciate nephrology recommendations, lasix BID 48 hrs, noted hypernatremia today, holding diuresis Appreciate oncology recommendations Appreciate palliative medicine assistance with goals of care in regards to her cancer Appreciate remainder of care per critical care team Monitor thrombocytopenia and transfuse plts if active bleeding Any Bergman PA-C Colorectal Surgery 6a - 6p Pager: [phone] 6p - 6a Pager: [phone] OK Dang 03/14/25 1111 Cosigned by Reyna Brewer MD at 03/17/2025 2:53 PM EDT * Venita Chan MD - 03/14/2025 6:35 AM EDT Images from the original note were not included. SICU Academic Critical Care PROGRESS NOTE Admission Date: 02/25/2025 5:24 PM Attending Physician: Deena Branch MD Date of 1955 Hospital Day: 17 day(s) Caren Suarez is a 69 y.o. female with past medical history of DVT, HTN, who was admitted to [facility] after a CT A/P at an OSH demonstrated large partially solid cystic lesions. At that time she was found to have multiple DVTs and PEs. She was transferred to [facility] for a higher level of care. On arrival, her DVTs were being treated with heparin. Colorectal surgery was consulted on 03/07 for possible bowel obstruction. At that time a CT A/P demonstrated colonic dilation with transition at the sigmoid junction. There is concern for acute malignant obstruction for known mucinous adenocarcinoma with colorectal origin. After stabilization of the patient's INR with [facility] on 03/07, the decisionwas made to take her to the operating room as a joint case between Colorectal on [employer] Specialist/Onc. At the beginning of the case, patient initially desaturated prior to incision. It was believed thatthis was due to the significant malignant ascites compressing the lungs. Decision was made to proceed with the case, and after decompression the patient's respiratory status significantly improved. The patient later went into cardiac arrest within the operating room and a code was initiated. Compressions were begun, epi was administered. After 2 rounds of compressions ROSC was obtained. ABThera was placed and the patient was transferred to the surgical ICU intubated and sedated. Overnight Events: Patient was seen and examined at bedside. No acute events overnight. She did have her Camara removedyesterday. She did not have any urine output and had a bladder scan twice that showed there was increasing in urine. She did have to be straight cath 1 times output at 400 cc. Per nursing, has not been taking in much over all. At 5:30 a.m. this morning bladder scan was less than 100 cc. Denies any nausea, vomiting, or difficulty breathing. Physical Exam: Vital Signs: BP 151/71 Pulse 83 Temp 36.8 ??C (98.2 ??F) (Axillary) Resp 21 Ht 157.5 cm (5'2.01 ) Wt 86 kg (189 lb 9.5 oz) SpO2 100% BMI 34.67 kg/m?? Physical Exam Constitutional: General: She is not in acute distress. HENT: Head: Normocephalic and atraumatic. Right Ear: External ear normal. Left Ear: External ear normal. Mouth/Throat: Mouth: Mucous membranes are moist. Eyes: Extraocular Movements: Extraocular movements intact. Conjunctiva/sclera: Conjunctivae normal. Pupils: Pupils are equal, round, and reactive to light. Cardiovascular: Rate and Rhythm: Normal rate and regular rhythm. Pulmonary: Effort: Pulmonary effort is normal. No respiratory distress. Comments: IS 250 Abdominal: General: Abdomen is flat. There is no distension. Palpations: Abdomen is soft. Tenderness: There is no abdominal tenderness. There is no guarding. Comments: Ostomy bag in place - has some liquid stool output Midline incision covered with wound vac Skin: General: Skin is warm and dry. Coloration: Skin is not jaundiced. Neurological: Mental Status: She is alert. Mental status is at baseline. Intake/Output Summary (Last 24 hours) at 03/14/2025 0636 Last data filed at 03/14/2025 0614 Gross per 24 hour Intake 1298.06 ml Output 1535 ml Net -236.94 ml O2 Device: Nasal cannula Ventilator Settings Vent Mode: CPAP FiO2 (%): 40 % Resp Rate (Set): 20 Avea Vt (Set, L): 0.4 Liter PEEP/CPAP (cm H2O): 8 cm H20 Insp Time (sec): 0.92 sec Trigger Sensitivity Flow (L/min): 1 L/min Trigger Sensitivity Pressure (cm H2O): 3 cm H2O Humidification: Heat and moisture exchanger Invasive Hemodynamic [place] Results from last 3 days Lab Units 03/14/25 0234 03/13/25 1814 03/13/25 0933 03/13/25 0153 03/12/25 1355 03/12/25 0804 03/12/25 0205 BUN mg/dL 13 -- -- 16 -- -- 22 CREATININE mg/dL 0.46 -- -- 0.64 -- -- 0.81 POTASSIUM mmol/L 3.6 4.2 3.5 3.1* 4.0 3.7 3.1* CO2 mmol/L 35* -- -- 34* -- -- 26 CHLORIDE mmol/L 108 -- -- 106 -- -- 109 MAGNESIUM mg/dL 2.1 -- 2.3 1.9 -- -- 1.8 Results from last 3 days Lab Units 03/14/25 0234 03/13/25 0154 03/12/25 0205 INR 1.3* 1.3* 1.2 PROTIME sec 14.2* 14.4* 13.5* Results from last 3 days Lab Units 03/14/25 02303/13/25 0154 03/12/25 0205 03/11/25 1640 WBC x10E9/L 6.4 5.5 5.9 -- HEMOGLOBIN g/dL 11.0* 10.4* 10.2* 10.2* HEMATOCRIT % 34.3* 32.5* 31.2* 31.2* PLATELETS X10E9/L 147* 105* 92* -- MCV fL 82 82 81 -- MCH pg 26.4* 26.1* 26.4* -- MCHC g/dL 32.1 31.9* 32.6 -- RDW % 26.7* 27.6* 26.7* -- Microbiology Results Procedure Component Value Units Date/Time Urine Culture Urine, Indwelling Catheter [[id number]] (Abnormal) (Susceptibility) Collected: 03/07/25 1122 Specimen: Urine, Indwelling Catheter Updated: 03/10/25 1127 CULTURE RESULTS 50,000-100,000 CFU/mL Vancomycin resistant Enterococcus species Susceptibility Vancomycin resistant Enterococcus species Not Specified Ampicillin Resistant Daptomycin Susceptible (dose dependent) Levofloxacin Resistant Linezolid Susceptible Nitrofurantoin Intermediate Vancomycin Resistant Glucose Results from last 7 days Lab Units 03/14/25 0234 03/14/25 0233 03/13/25200403/13/25 1455 03/13/25 0926 03/13/25 0457 03/13/25 0153 03/12/25 2144 03/12/25 1401 03/12/25 0929 03/12/25 0924 03/12/25 0311 BEDSIDE GLUCOSE mg/dL -- 145* 140* 119* 129* 147* -- 127* 128* 116* <20* 86 GLUCOSE mg/dL 126* -- -- -- -- -- 120* -- -- -- -- -- Lines/Drains CVC Triple Lumen 03/07/25 Right Internal Jugular (Active) Precautions Standard precautions;Hand hygiene;Gloves 03/08/25 0300 Lumen 1 Proximal 03/08/25 0300 Lumen 1 Status Blood return noted;Flushed;Infusing 03/08/25 0300 Lumen 2 Medial 03/08/25 0300 Lumen 2 Status Blood return noted;Flushed;Infusing 03/08/25 0300 Lumen 3 Distal 03/08/25 0300 Lumen 3 Status Blood return noted;Flushed;Infusing 03/08/25 0300 Site Assessment Clean;Dry;Intact 03/08/25 0000 Dressing Type Transparent;Occlusive 03/08/25 0300 Dressing Status Clean;Dry;Intact 03/08/25 0300 Dressing Intervention Initial dressing 03/08/25 0300 Line Necessity Peripherally incompatible solution 03/08/25 030 Line Necessity Reviewed With cc 03/08/25 0300 Patient Tolerance of Line Care Tolerated well 03/08/25 0300 Central Line Dressing Change Due (Non-Gauze) 03/15/25 03/08/25 0000 Peripheral IV 03/05/25 Anterior;Left Forearm (Active) Line Status Infusing;Flushed 03/08/25 0300 Site Assessment Clean;Intact;Dry 03/08/25 0300 Dressing Type Transparent;Occlusive 03/08/25 0300 Dressing Status Intact;Clean;Dry 03/08/25 0300 Dressing Intervention Initial dressing 03/08/25 0300 Dressing Change Due (Non-Gauze) 03/12/25 03/05/25 0649 Peripheral IV 03/06/25 Anterior;Right Forearm (Active) Line Status Infusing;Flushed 03/08/25 0300 Site Assessment Clean;Dry;Intact 03/08/25 0300 Dressing Type Transparent;Occlusive 03/08/25 0300 Dressing Status Intact;Dry;Clean 03/08/25 0300 Dressing Intervention Initial dressing 03/08/25 0300 Dressing Change Due (Non-Gauze) 03/13/25 03/06/25 2105 Chest Tube 03/08/25 Left (Active) Function -20 cm H2O 03/08/25 0300 Air Leak No 03/08/25 0300 (1) Drainage Description Serosanguineous 03/08/25 0300 (1) Dressing Type Gauze;Occlusive 03/08/25 0300 (1) Dressing Status Clean;Dry;Intact 03/08/25 0300 (1) Dressing Intervention Initial dressing 03/08/25 0300 (1) Site Assessment Clean;Intact;Dry 03/08/25 0300 Output (mL) 20 mL 03/08/25 0600 Negative Pressure Wound Therapy 03/07/25 Surgical Quadrant;Mid Abdomen (Active) Assessed: Compressed 03/08/25 0300 Cycle Continuous 03/08/25 0300 Target Pressure (mmHg) 125 03/08/25 0300 Dressing Status Clean;Dry;Intact 03/08/25 0300 Dressing Changed New 03/08/25 0000 Output (mL) 200 mL 03/08/25 0600 NG/OG Tube 03/08/25 Left nostril (Active) Placement Verification External length measured 03/08/25 0300 Status Suction-low intermittent 03/08/25 0300 Tube Site Care Completed 03/08/25 0300 Secured at (cm) 55 cm 03/08/25 0300 Securement Method Securing device (Describe) 03/08/25 0300 Dressing Status/Interventions Clean;Dry;Intact 03/08/25 0300 Drainage Appearance Bile 03/08/25 0300 Urinary Catheter 03/06/25 Single lumen (Active) Catheter Status Patent 03/08/25 0300 Site Assessment Clean;Skin intact 03/08/25 0300 Collection Container Standard drainage bag/container 03/08/25 0300 Securement Method Right 03/08/25 0300 Tamper Evident Seal Intact Yes 03/08/25 0300 Indication for Continuation Uro/jewel bearing turner surgical considerations 03/08/25 0000 Urine Color Yellow/straw 03/08/25 0300 Urine Appearance Clear 03/08/25 0300 Output (mL) 50 mL 03/08/25 0700 ETT 03/07/25 Cuffed;Inflated Oral (Active) Secured at (cm) 22 cm 03/08/25 0300 Measured from Lips 03/08/25 0300 Secured Location Center 03/08/25 0200 Secured by Commercial tube du 03/08/25 0300 Cuff Pressure (cm H2O) 30 cm H2O 03/08/25 0200 Arterial Line 03/07/25 Left Radial (Active) Line Status Infusing;Blood return noted;Pulsatile blood flow;Flushed 03/08/25 0300 Line Interventions Zeroed and calibrated;Leveled;Connections checked and tightened;Pressure bag maintained 03/08/25 030 Waveform Appropriate 03/08/25 030 Site Assessment Clean;Intact;Dry 03/08/25 0300 Dressing Type Transparent;Occlusive 03/08/25 030 Dressing Status Clean;Dry;Intact 03/08/25 030 Dressing Intervention Initial dressing 03/08/25 0300 Color/Movement/Sensation Capillary refill less than 3 sec 03/08/25 0300 Patient Tolerance of Line Care Tolerated well 03/08/25 030 Line Necessity Invasive hemodynamic monitoring 03/08/25 030 Line Necessity Reviewed With cc 03/08/25299 Dressing Change Due (Non-Gauze) 03/15/25 03/08/25 0000 ACTIVE PROBLEM LIST: S/p cardiac arrest Malignant bowel obstruction s/p total colectomy and bilateral salpingo-oophorectomy Pulmonary embolism Multiple DVT Blood loss anemia Acute Kidney Injury w/ concern for acute tubular necrosis Malignant Colorectal Cancer Bacterial Peritonitis Ovarian Cystic Lesion ASSESSMENT/PLAN: Caren Suarez is a 69 y.o. female who is s/p total colectomy and bilateral salpingo-oophorectomy for malignant bowel obstruction for known mucinous adenocarcinoma. 1. Neuro S/p cardiac arrest CT Head without contrast: No acute intracranial process. Hospital Meds: Sedation: None Analgesia: fentanyl discontinued, scheduled Ofirmev, dilaudid and Roxicodone PRN Other: n/a Home Meds: N/a 2. Pulmonary # Pulmonary embolism, multiple DVT - CTA Chest 03/08/25:Slightly decreased burden of right sided pulmonary emboli. No new emboli. Left chest tube, moderate left pneumothorax, significant subcutaneous emphysema, mild dependent edema and consolidation left lung. # Vascular venous duplex 02/24/25 Acute femoropopliteal deep vein thrombosis, acute deep tibioperoneal vein thrombosis, acute deep calf muscle vein thrombosis - Vascular Surgery is consulted - Restarted on heparin - Encourage IS, ambulation 03/13/25 CXR: Lower lobe atelectasis and small effusions. No pneumothorax. Subcutaneous gas slightlydecreased overlying left chest as compared to previous exam. 03/12/25 CXR post-extubation: No pneumothorax. Persistent left body wall emphysema. No definite pneumothorax seen. Left greater than right bibasilar opacities, likely atelectasis. Chest tube removed @ bedside 03/12/25 CXR: No pneumothorax. Satisfactory ET tube position. - Pt doing well from pulmonary standpoint. Can likely extubate today 03/11/25 CXR: Decreasing small left pneumothorax. Otherwise, stable chest. 03/10/25 CXR: Pneumothorax remains with a indwelling left chest tube. Pneumothorax is larger than theprior study currently approximately 17 mm at the left upper lobe. The amount of gas within the leftchest wall is increasing. 03/09/25 CXR: There is a 1 cm left apical pneumothorax. Sidehole of the left-sided chest tube is outside of the pleural space in the left lateral chest wall. Improved aeration of the left lung. 03/08/25 CXR: Left chest tube has been pulled back, with tip remaining in the hemithorax however sideport outside of the pleural space in the chest wall Breathing Support: 4L Nasal Cannula SpO2: >94% Continuous pulse oximetry Hospital Meds: None Home Meds: None 3. Cardiovascular S/p cardiac arrest, shock Hemodynamics: NSR Normotensive Pressors: None Goal MAP >65 Continuous cardiac monitoring Hospital Meds: IV Heparin drip Home Meds: Unknown PMH: Hypertension, previous DVTs PSH: None known Code Status: Full 4. GI # Malignant bowel obstruction s/p total colectomy and bilateral salpingo-oophorectomy Status post total colectomy, left in discontinuity, ABThera in place 03/07/25 Status post 2nd look and end ileostomy creation, wound vac in place 03/09/25 NG Tube: 392 cc Diet: TF, passed bedside swallow - can have CLD Continue tube feeds until patient with adequate po intake beyond clear liquids, as patient with severely poor nutrition x 10 days as per nutrition services Bowel Function: Monitor - liquid stool output Hospital Meds: N/a Home Meds: None known 5. Renal/Genitourinary TASHA w/ concern for acute tubular necrosis - nephrology consult 03/09/25 - Nephrology consulted Lasix 40mg IV BID completed 03/12, strict ins and outs, bladder scan q12 # Urinary retention - removed camara 03/13, minimal to no UOP - bladder scan 350 mL > straight cath 450mL UOP - encourage to ambulate to toilet, if possible Lab Results Component Value Date SODIUM 148 (H) 03/14/2025 SODIUM 147 (H) 03/13/2025 SODIUM 144 03/12/2025 CL 108 03/14/2025 CL 106 03/13/2025 CL 109 03/12/2025 K 3.6 03/14/2025 K 4.2 03/13/2025 K 3.5 03/13/2025 CO2 35 (H) 03/14/2025 CO2 34 (H) 03/13/2025 CO2 26 03/12/2025 Electrolytes: Lab Results Component Value Date BUN 13 03/14/2025 BUN 16 03/13/2025 BUN 22 03/12/2025 CREATININE 0.46 03/14/2025 CREATININE 0.64 03/13/2025 CREATININE 0.81 03/12/2025 CALCIUM 7.5 (L) 03/14/2025 CALCIUM 7.4 (L) 03/13/2025 CALCIUM 7.0 (L) 03/12/2025 MG 2.1 03/14/2025 MG 2.3 03/13/2025 MG 1.9 03/13/2025 PHOSPHORUS 1.8 (L) 03/14/2025 PHOSPHORUS 2.6 03/13/2025 PHOSPHORUS 3.0 03/13/2025 Will replace electrolytes PRN per ICU protocol Fluid Balance: IV fluids/24H: 1.14 L UOP/24 H: 985 mL Ileostomy / 24H: 550 mL Net Fluid/24H: -236.9 mL Net Fluid Since admission: +1.5 L Strict monitoring of Ins and Outs Hospital Meds: none Home Meds: None known 6. Heme Blood loss anemia Labs: Lab Results Component Value Date HGB 11.0 (L) 03/14/2025 HGB 10.4 (L) 03/13/2025 HGB 10.2 (L) 03/12/2025 PLT 147 (L) 03/14/2025 PLT 105 (L) 03/13/2025 PLT 92 (L) 03/12/2025 Lab Results Component Value Date INR 1.3 (H) 03/14/2025 INR 1.3 (H) 03/13/2025 INR 1.2 03/12/2025 Type and Screen: A neg Blood Products Administered: 3U PRBC (03/08/25 at 0200) Will continue to monitor Hgb and transfuse PRN 7. ID Leukocytosis Bacterial Peritonitis Ovarian Cystic Lesion - Infectious disease is onboard - Completed course of metronidazole and ceftriaxone 03/12 -Urine culture + for VRE. No urinary symptoms when culture obtained. No systemic signs of infectionat this time. No indication for treatment. Tmax/24H: 36.9 Labs: Lab Results Component Value Date WBC 6.4 03/14/2025 WBC 5.5 03/13/2025 WBC 5.9 03/12/2025 Micro: Peritoneal fluid culture collected 02/28/25: [facility] Hospital Meds: Antibiotics: rocephin and flagyl completed 8. Endocrine Lab Results Component Value Date GLU 126 (H) 03/14/2025 GLU 145 (H) 03/14/2025 GLU 140 (H) 03/13/2025 Goal Blood Glucose <180 mg/dL Hospital Meds: ISS PMH: none known 9. Musculoskeletal PMH: n/a PSH: n/a PT/OT: Recommend moderate intensity rehab, Tolerate 1-2 hrs of therapy 3-5 days/wk 10. Prophylaxis Respiratory: none GI: protonix DVT: SCD Cuffs, heparin 11. Lines PIV x1 Right IJ CVC NG tube Ileostomy Wound vac External urinary catheter Disposition: Improving, possible transfer Sherley Rios, MS3 I, , was physically present with the participating medical student. I verified the medical student's documentation and included any necessary updates within the note. Venita Chan MD (Nikki) PGY-1, Urology Resident SICU Service Cosigned by Orion Damico MD at 03/14/2025 10:22 AM EDT Associated attestation - Orion Damico MD - 03/14/2025 10:22 AM EDT Attending Attestation: I saw the patient. I participated and was physically present during the critical/fuentes portions of the service. I was directly involved in the management and treatment plan of the patient. I reviewed the resident's note. Additional Notes/Findings: <<<<<<<<<<<<<<<<<< Surgical Critical Care Attending >>>>>>>>>>>>>>>>>>>>>>>> I have seen and evaluated the patient, and have also reviewed the history above. Patient is critically ill and has a high probability of imminent or life- threatening deterioration, that requires highcomplexity decision making and failure to do so may cause further life threatening deterioration. Ihave repeated and performed the fuentes portions of the physical exam and concur with the resident's/advanced practice provider findings with the exception of the below additions. I have reviewed all pertinent laboratory findings and imaging reports/films. We have discussed the patient's status and theappropriate treatment options/plan on the day of the encounter. I agree with the plan as noted above except for changes below. Critical care time spent with the patient today = 33 minutes. Diagnoses: Acute respiratory failure with hypoxia Cardiac arrest Acute blood loss anemia Hypocalcemia Pulmonary embolism DVT TASHA Hypoalbuminemia Sepsis hypokalemia Plan: Only 250mL on the IS. Might need BIPAP today. Im concerned about her respiratory effort. PTOT On ceftriaxone and flagyl. ID involved. Nephrology following. Creatinine normal. Appreciate their help. Hypernatremia today. I and O -240mL/24 hours and +1.5L/HS CXR clear other than the Right lower lobe atelactasis Had urinary retention after camara removed. Straight cather times one overnight Orion Damico MD, FACS [facility] General Surgeons Minimally Invasive Robotic Surgery Surgical Critical Care Trauma Office: [phone] Please feel free to call with questions at anytime. * Tanya KrausMELISSAN-ASSISTANT DIRECTOR OF RESIDENCE LIFE - 03/13/2025 1:15 PM EDT Images from the original note were not included. [facility] Hematology and Oncology - Daily Progress Note 03/13/2025, 1:15 PM Impression/Plan: Metastatic Colorectal Cancer -Initially favoring ovarian primary given clinical pattern, but now with pathology positive for colorectal primary -Initial CT a/p showed large partially solid and partially cystic lesion in the right adnexa measuring 16 cm x 12 cm x 11 cm + lower anterior abdominal soft tissue nodules + 2.5 cm solid R renal lesion + diffuse intraperitoneal fluid -CTA chest revealed numerous pulmonary nodules -[id number], DS3=060, CEA=24.6, CA 19-9 WNL -TVUS noted an 18.2 cm cystic and solid lesion in the pelvis with ascites and peritoneal nodularity -S/p IR performed paracentesis and biopsy of soft tissue nodules 02/28 -Ascites fluid non-diagnostic -Abdominal soft tissue biopsy pathology positive for mucinous adenocarcinoma consistent with colorectal origin -Will need tor recover from surgery before she will be considered for systemic cancer treatments -Palliative medicine consult for assistance with pain. GOC discussions may also be needed in the near future pending her clinical course -She will follow up with Dr. Romero after discharge for further management Malignant Bowel Obstruction, Abdominal Pain/Distention -Repeat CT a/p 03/06 shows Colonic dilatation with transition at the sigmoid junction. Concern for obstruction from the known large rectal mass vs multicentric colorectal carcinoma + Similar appearanceof a 20 cm cystic pelvic lesion, recently characterized as rectal adenocarcinoma + Peritoneal carcin omatosis -Now s/p exploratory laparotomy with colectomy, bilateral salpingo-oophorectomy 03/07--> s/p 2nd look exp lap with washout, SBR, end ileostomy, and wound vac 03/09 -Patient coded in surgery, and now remains in ICU, she was extubated 03/12 -General surgery following Renal Mass, Hydroureteronephrosis, TASHA, hyperuricemia -CT imaging shows 2.5 cm R interpolar renal mass concerning for RCC + Mild right hydroureteronephrosis, likely secondary to pelvic mass effect on the ureter -Urology, nephrology following PE/DVT -Likely provoked by metastatic malignancy -CTA shows Moderate right sided pulmonary emboli without evidence of right heart strain -Dopplers revealing acute R femoropopliteal, deep tibioperoneal, and deep calf muscle DVT + L deep calf muscle DVT -On heparin gtt, likely transition to DOAC prior to discharge pending clinical course -Repeat CTA chest 03/08 showed decreased burden of R pulmonary embolus Supratherapeutic INR -In setting of advanced metastatic disease, Eliquis therapy, acute infection -INR corrected s/p preoperative Vit K +/- FFP reversal Anemia/thrombocytopenia -Largely multifactorial due to severe B12 deficiency, folate deficiency, Iron deficiency anemia in setting of vaginal bleeding d/t #1, acute infection, metastatic GI malignancy, renal insufficiency, surgical blood loss -Hgb=10.4(10.1, 11.3, 11.4, 12.7, 12.7) microcytic -Plt =105k(89k, 117k, 140k, 155k, 187k) -HPF4ab is negative -Last transfused PRBC 03/08 -S/p IM B12 & IV iron -Continue folic acid -No hemolysis -EGD/colonoscopy were planned, but not completed as patient could not tolerate bowel prep, likely due to bowel obstruction as discussed above -Transfuse for hgb<7 -Have arranged for follow up with Dr. Romero UTI -On IV antibiotics -As per other services Respiratory Failure, Shock, S/p Cardiac Arrest -Extubated 03/12 -As per crit care team Continue management of other medical problems as per appropriate services. Patient discussed with Dr. Jean. Please call with questions. Interval History: Patient seen and examined at bedside, she is currently up to chair. No family present at this time.She is asleep upon entry, awakes easily but drowsy. She is ill appearing. NG in place. She is afebrile. VS are stable. She is currently maintained on 4L NC. No acute distress noted. Physical Examination : Temp: [36.4 ??C (97.5 ??F)-37.5 ??C (99.5 ??F)] 36.6 ??C (97.9 ??F) Pulse: [75-110] 83 Resp: [10-23] 20 BP: (117-155)/(57-85) 144/62 FiO2 (%): [40 %] 40 % SpO2: [93 %-100 %] 100 % O2 Device: Nasal cannula O2 Flow Rate (L/min): [4 L/min-5 L/min] 4 L/min Temperature Range: Temp: 36.6 ??C (97.9 ??F) Temp Av.7 ??C (98 ??F) Min: 36.4 ??C (97.5 ??F) Max: 37.5 ??C (99.5 ??F) Weight change: 0 kg (0 lb) Physical Exam Vitals and nursing note reviewed. Constitutional: General: She is not in acute distress. Appearance: She is normal weight. She is ill-appearing HENT: Head: Normocephalic and atraumatic. Right Ear: External ear normal. Left Ear: External ear normal. Nose: Nose normal. Mouth/Throat: Eyes: General: No scleral icterus. Extraocular Movements: Extraocular movements intact. Pupils: Pupils are equal, round Cardiovascular: Rate and Rhythm: Normal rate and regular rhythm. Pulmonary: Effort: Pulmonary effort is normal. No respiratory distress Abdominal: General: There is distension. Tenderness: There is abdominal tenderness. There is guarding. Musculoskeletal: Right lower leg: +2 edema Left lower leg: +2 edema Skin: General: Skin is warm and dry. Coloration: Skin is not jaundiced. Findings: Abdominal incision, not visualized Neurological: General: Psychiatric: Mood and Affect: Laboratory data: Results from last 7 days Lab Units 03/13/25 0154 03/12/25 0205 03/11/25 1640 03/11/25 0210 WBC x10E9/L 5.5 5.9 -- 8.3 HEMOGLOBIN g/dL 10.4* 10.2* 10.2* 10.1* HEMATOCRIT % 32.5* 31.2* 31.2* 30.2* PLATELETS X10E9/L 105* 92* -- 89* MCV fL 82 81 -- 80 Results from last 7 days Lab Units 03/13/25 0154 03/12/25 0205 03/11/25 0210 03/10/25 2030 PROTIME sec 14.4* 13.5* 13.4* -- INR 1.3* 1.2 1.2 -- APTT sec -- 48* 58* 55* Results from last 7 days Lab Units 03/13/25 0933 03/13/25 0926 03/13/25 0457 03/13/25 0154 03/13/25 0153 03/12/25 1401 03/12/25 1355 03/12/25 0311 03/12/25 0205 03/11/25 0320 03/11/25 0210 03/09/25 1549 03/09/25 1041 03/08/25 0043 03/08/25 0032 SODIUM mmol/L -- -- -- -- 147* -- -- -- 144 -- 140 < > 139 < > 138 PORTABLE SODIUM -- -- -- -- -- -- -- -- -- -- -- -- -- < > -- POTASSIUM mmol/L 3.5 -- -- -- 3.1* -- 4.0 < > 3.1* -- 3.9 < > 4.9 < > 3.5 POC POTASSIUM -- -- -- -- -- -- -- -- -- -- -- -- -- < > -- CHLORIDE mmol/L -- -- -- -- 106 -- -- -- 109 -- 109 < > 109 < > 105 CO2 mmol/L -- -- -- -- 34* -- -- -- 26 -- 23 < > 23 < > 19* BUN mg/dL -- -- -- -- 16 -- -- -- 22 -- 29* < > 30* < > 29* CREATININE mg/dL -- -- -- -- 0.64 -- -- -- 0.81 -- 0.99 < > 1.09* < > 1.18* CALCIUM mg/dL -- -- -- -- 7.4* -- -- -- 7.0* -- 7.4* < > 7.8* < > 8.3* ALK PHOS U/L -- -- -- -- -- -- -- -- -- -- -- -- 38* -- 37* ALT U/L -- -- -- -- -- -- -- -- -- -- -- -- 23 -- 33* AST U/L -- -- -- -- -- -- -- -- -- -- -- -- 33 -- 108* POC GLUCOSE -- -- -- -- -- -- -- -- -- -- -- -- -- < > -- BEDSIDE GLUCOSE mg/dL -- 129* 147* -- -- < > -- < > -- < > -- < > -- < > -- GLUCOSE mg/dL -- -- -- -- 120* -- -- -- 86 -- 106* < > 114* < > 258* INR -- -- -- 1.3* -- -- -- -- 1.2 -- 1.2 < > -- < > 2.3* MAGNESIUM mg/dL 2.3 -- -- -- 1.9 -- -- -- 1.8 -- 2.1 < > 2.4 < > 2.1 < > = values in this interval not displayed. VITAMIN B12: Lab Results Component Value Date [id number] 110 (L) 02/26/2025 FOLATE: Lab Results Component Value Date FOLATE 3.3 (L) 02/26/2025 IRON: Lab Results Component Value Date IRON 12 (L) 02/26/2025 TIBC 321 02/26/2025 FERRITIN 78 02/26/2025 Medications: acetaminophen, 650 mg, oral, Q6H folic acid, 1 mg, nasogastric, Daily insulin lispro, 2-10 Units, subcutaneous, Q6H lidocaine, 1 patch, transdermal, Daily pantoprazole, 40 mg, intravenous, Q24H JOSE sodium chloride, 10 mL, intravenous, Q8H AND sodium chloride, 10 mL, intravenous, PRN AND sodium chloride, 20 mL, intravenous, PRN tamsulosin, 0.4 mg, oral, Nightly ELLIOTT Shankar 03/13/25 1406 Cosigned by Mallory Jean MD at 03/13/2025 7:05 PM EDT * JHONATAN Moran - 03/13/2025 9:51 AM EDT NUTRITION ADULT FOLLOW UP NUTRITION ASSESSMENT: Patient History: Brief Clinical Summary: Patient presented with abnormal CT AP and cold-like symptoms/difficulty breathing. Admitted for treatment. PMHx includes DVT. Biochemical Data, Medical Tests, and Procedures: 02/24 CT AP: ovarian lesion, renal lesion, pulmonary lesions - likely mets 02/28 IR paracentesis (-1850mL removed) 02/28 US pelvis: 18.2 cm cystic and solid lesion in the pelvis with ascites and peritoneal nodularity 02/28- IR paracentesis for ascites fluid, 1800 mL fluid removed. 03/06 CTA- Colonic dilatation with transition at the sigmoid junction. Concern for obstruction from the known large rectal mass vs multicentric colorectal carcinoma. 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 03/07 OR: ex lap, total colectomy, salpingo-oophorectomy. Intubated. 03/09 XRA: enteric tube extends to the left mid abdomen 03/09 OR: ex lap, ileostomy creation, small bowel resection, wound closure abdomen, wound vac application 03/12 extubated Labs: Results from last 3 days Lab Units 03/13/25 0153 03/12/25 1355 03/12/25 0804 03/12/25 0205 03/11/25 0210 SODIUM mmol/L 147* -- -- 144 140 POTASSIUM mmol/L 3.1* 4.0 3.7 3.1* 3.9 CHLORIDE mmol/L 106 -- -- 109 109 CO2 mmol/L 34* -- -- 26 23 BUN mg/dL 16 -- -- 22 29* CREATININE mg/dL 0.64 -- -- 0.81 0.99 CALCIUM mg/dL 7.4* -- -- 7.0* 7.4* Results from last 7 days Lab Units 03/13/25 0926 03/13/25 0457 03/13/25 0153 03/12/25 2144 03/12/25 1401 03/12/25 0929 03/12/25 0924 BEDSIDE GLUCOSE mg/dL 129* 147* -- 127* 128* 116* <20* GLUCOSE mg/dL -- -- 120* -- -- -- -- Results from last 3 days Lab Units 03/13/25 0154 03/12/25 0205 03/11/25 1640 03/11/25 0210 WBC x10E9/L 5.5 5.9 -- 8.3 HEMOGLOBIN g/dL 10.4* 10.2* 10.2* 10.1* HEMATOCRIT % 32.5* 31.2* 31.2* 30.2* PLATELETS X10E9/L 105* 92* -- 89* MCV fL 82 81 -- 80 Results from last 3 days Lab Units 03/13/25 0153 03/12/25 0205 03/11/25 1640 03/11/25 0210 MAGNESIUM mg/dL 1.9 1.8 -- 2.1 IONIZED MAGNESIUM mmol/L -- -- 0.58 -- Results from last 3 days Lab Units 03/13/25 0454 03/13/25 0153 03/12/25 1220 03/12/25 0312 03/12/25 0205 03/11/25 0351 03/11/25 0210 PHOSPHORUS mg/dL -- 2.1* -- -- 2.4 -- 2.8 CALCIUM, IONIZED mg/dL 4.3* -- 4.4* 4.3* -- < > -- < > = values in this interval not displayed. No data from last 3 days. No results found for: HGBA1C Lab Results Component Value Date IRON 12 (L) 02/26/2025 TIBC 321 02/26/2025 FERRITIN 78 02/26/2025 Lab Results Component Value Date IRONSAT 4 (L) 02/26/2025 No results found for: CHOL No results found for: CHDL No results found for: HDL No results found for: LDLCALC No results found for: TRIG No results found for: VERYLOWLIP Lab Results Component Value Date [id number] 110 (L) 02/26/2025 Lab Results Component Value Date FOLATE 3.3 (L) 02/26/2025 No results found for: VITD25 Comments (labs): hypernatremia, hypokalemia, hypocalcemia, hypophosphatemia Medications/ Parenteral: Folic acid, protonix, Kcl, NaPhos Current Facility-Administered Medications Medication Dose Route Frequency Provider Last Rate Last Admin acetaminophen (OFIRMEV) IVPB Premix 1,000 mg 1,000 mg intravenous Q6H [facility] Sarath Hoover MD Stopped at 03/13/25 0744 calcium gluconate IVPB 1000 mg/50 mL (20 mg/mL premix) 1,000 mg intravenous PRN Дмитрий Lara MD 50mL/hr at 03/13/25921 1,000 mg at 03/13/25921 Or calcium gluconate IVPB 2000 mg/100 mL (20 mg/mL premix) 2,000 mg intravenous PRN Дмитрий Lara MD Or calcium gluconate 3,000 mg in sodium chloride 0.9 % 100 mL IVPB 3,000 mg intravenous PRN Дмитрий Lara MD dextrose (GLUTOSE) 40 % gel 15 g 15 g oral PRN OK Albright dextrose 5 % (D5W) infusion 100 mL/hr intravenous Continuous PRN OK Albright dextrose 50 % in water (D50W) 50% solution 25 mL 25 mL intravenous PRN OK Albright folic acid (FOLVITE) tablet 1 mg 1 mg nasogastric Daily OK Dang 1 mg at glucagon HCL injection 1 mg 1 mg intramuscular PRN OK Albright heparin (porcine) injection 2,000 Units 2,000 Units intravenous PRN Orion Damico MD heparin infusion 37308 units/500 mL in 0.45% NaCl (50 units/mL premix) 300-3,500 Units/hr intravenous Continuous Orion Damico MD 21 mL/hr at 03/13/25923 1,050 Units/hr at 03/13/25923 hydrALAZINE (APRESOLINE) injection 10 mg 10 mg intravenous Q6H PRN Eleni Harding APRN-ASSISTANT DIRECTOR OF [employer]IDENCE LIFE 10 mg at 03/12/25 0352 HYDROmorphone (DILAUDID) injection 0.5 mg 0.5 mg intravenous Q3H PRN Дмитрий Lara MD 0.5 mg at 03/13/25928 Or HYDROmorphone (DILAUDID) injection 1 mg 1 mg intravenous Q3H PRN Дмитрий Lara MD insulin lispro (HumaLOG) injection 2-10 Units 2-10 Units subcutaneous Q6H Дмитрий Lara MD magnesium sulfate IVPB 2000 mg/50 mL in iso-osmotic water (40 mg/mL premix) 2,000 mg intravenous PRN Дмитрий Lara MD Stopped at 03/13/25 0652 Or magnesium sulfate IVPB 4000 mg/100 mL in iso-osmotic water (40 mg/mL premix) 4,000 mg intravenous PRN Дмитрий Lara MD ondansetron (PF) (ZOFRAN) injection 4 mg 4 mg intravenous Q4H PRN Neelima Ta APRN-ASSISTANT DIRECTOR OF [employer]ID[employer] 4 mg at03/04/25 1700 pantoprazole (PROTONIX) injection 40 mg 40 mg intravenous Q24H [facility] Eri, DO 40 mg at 03/13/25 0800 potassium chloride (K-TAB,KLOR-CON) CR tablet 20-50 mEq 20-50 mEq oral PRN Дмитрий Lara MD Or potassium chloride (KAYCIEL) 20 mEq/15 mL solution 20-50 mEq 20-50 mEq oral PRN Дмитрий Lara MD 40mEq at 03/13/25 0459 potassium chloride IVPB 10 mEq/50 mL in water (0.2 mEq/mL premix) 10 mEq intravenous PRN Дмитрий Lara MD Stopped at 03/12/25 1226 Or potassium chloride IVPB 10 mEq/100 mL in water (0.1 mEq/mL premix) 10 mEq intravenous PRN Дмитрий Lara MD sodium phosphate 20 mmol in sodium chloride 0.9 % 250 mL IVPB 20 mmol intravenous PRN Дмитрий Lara MD Or sodium phosphate 20 mmol in sodium chloride 0.9 % 100 mL IVPB 20 mmol intravenous PRN Дмитрий Lara MD Stopped at 03/13/25 0912 Or sod phos di, mono-K phos mono (K-PHOS NEUTRAL) 250 mg tablet 2 tablet 2 tablet oral PRN Дмитрий Lara MD sodium chloride 0.9 % flush 10 mL 10 mL intravenous PRN Deena Branch MD 10 mL at 02/25/25 1857 sodium chloride 0.9 % flush 10 mL 10 mL intravenous PRN Ghassan Castillo MD 10 mL at 03/08/25 0804 sodium chloride 0.9 % flush 10 mL 10 mL intravenous Q8H Orion Damico MD 10 mL at 03/13/25 0930 And sodium chloride 0.9 % flush 10 mL 10 mL intravenous PRN Orion Damico MD And sodium chloride 0.9 % flush 20 mL 20 mL intravenous PRN Orion Damico MD 20 mL at 03/12/25 1017 sodium chloride 0.9 % infusion 20 mL/hr intravenous Continuous PRN Neelima Ta APRN-ASSISTANT DIRECTOR OF [employer]ID[employer] 50 mL/hr at 03/11/25 05 50 mL/hr at 03/11/25522 sodium chloride 0.9 % infusion 3 mL/hr intra-arterial Continuous Fernanda Soliman MD 3 mL/hr at 03/13/25 06 3 mL/hr at 03/13/25635 Nutrition Focused Physical Findings +ileostomy, NG, wound vac. Last BM 03/04. +2 edema noted. Skin (per nursing flow sheets): Skin Color: Pale; [place] (03/13/25699) Skin Temp: Warm (03/13/25699) Wound (per nursing flow sheets): Wound 03/07/25 Incision Abdomen N/A-Site Assessment: Unable to assess (03/13/25699) Gastrointestinal (per nursing flow sheets): Abdomen Assessment: Stoma; Soft; Nondistended (03/13/25699) Last BM Date: 03/04/25 (03/06/25899) Passing Flatus: No (03/07/252029) RUQ Bowel Sounds: Hypoactive (03/13/25699) LUQ Bowel Sounds: Hypoactive (03/13/25699) RLQ Bowel Sounds: Hypoactive (03/13/25699) LLQ Bowel Sounds: Hypoactive (03/13/25699) GI Symptoms: Bloating; Distention; Loss of appetite (03/07/25 2030) Edema (per nursing flow sheets): RUE Edema: +2 (03/13/25699) LUE Edema: +2 (03/13/25699) RLE Edema: +2 (03/13/25699) LLE Edema: +2 (03/13/25699) Intake/ Output Last 24 hrs: Intake/Output Summary (Last 24 hours) at 03/13/2025950 Last data filed at 03/13/2025 07 Gross per 24 hour Intake 1177.9 ml Output 5262 ml Net -4084.1 ml Food/Nutrition Related History: Diet/ Nutrition Order Review: Dietary Orders (From admission, onward) Start Ordered 03/11/25 1534 Tube feeding No tray-Continuous Tube feeding No Tray-Continuous; Nasogastric or Oral gastric feeding tube; Standard 1.5 kcal; 10; 10 Continuous Comments: Osmolite 1.5 References: Formulary Card Question Answer Comment Diet Type: Tube feeding No Tray-Continuous Tube Type: Nasogastric or Oral gastric feeding tube Tube Feeding Formula: Standard 1.5 kcal Tube Feeding Start Rate (mL/hour): 10 Goal Rate (mL/hour): 10 03/11/25 1534 TPN: (Show up to 1 orders; newest on the left.) None Diet Intakes: NPO/CLD (since 03/03) No po intake recorded prior to that, noted with good appetite Inpatient Nutrition Support History: 03/11 RD spoke extensively with London Merino MD with [facility] regarding TPN initiation. reported there may be contraindications to initiating TPN with stage [address] stated in the scenario, due to patient being NPO x 8 days, the benefits outweigh the risks. Dr. Merino stated he is aware and will monitor and evaluate the need . 03/11 trickle tube feeds started 03/12 per tf stopped due to extubation TF: Osmolite 1.5 at 10 ml/hr Anthropometrics: Ht Readings from Last 1 Encounters: 02/25/25 157.5 cm (5' 2.01 ) Last 3 Weight Readings 03/09/25 0350 03/12/25 0400 03/13/25 0500 Weight: 84.4 kg (186 lb 1.1 oz) 89.5 kg (197 lb 5 oz) 89.5 kg (197 lb 5 oz) Current Weight: 89.5 kg (bed scale, 03/13) Admit Weight: 74.8 kg (Standing Scale, 02/26) [place] Body Weight: 50 kg Weight Changes: Variable weight this admission, (varying scales used); fluid likely masking any weight loss Current Body Mass Index: Body mass index is 36.08 kg/m??. Comparative Standards: Estimated Energy Needs: 1500-1750kcals daily. Method and weight used: 25-32 kcal/kg IBW Estimated Protein Needs: 75-125grams daily. Method and weight used: 1.5-2.5g protein/kg IBW Estimated Fluid Needs: 1500-1750ml daily. Method weight used: 1 ml/kcal Comments: updated to wound healing needs 03/13 Malnutrition Status: Malnutrition Present: At risk due to NPO x 10 days NUTRITION DIAGNOSIS: Intake Diagnosis: Inadequate oral intake (NI 2.1) Ongoing NUTRITION INTERVENTIONS: Coordination of Care: Spoke with NATA Jackson Enteral Nutrition: Slowly advance tube feeds of Osmolite 1.5 by 10 ml q12h until goal rate of 45 ml/hr is reached to provide 1080 ml tf formula, 1620 kcals, 68g protein, and 823 ml free water daily. Please hold tube feeds if phos < 1.6 and K+ < 3 RECOMMENDATIONS: Recommend continue tube feeds until patient with adequate po intake beyond clear liquids, as patient with severely poor nutrition x 10 days. GOAL(S): Meet estimated calorie and protein needs. NUTRITION MONITORING AND EVALUATION: TF tolerance, GI function, weight trend, labs, POC and overallstatus. Alondra Anderson RD, LD Clinical Dietitian [facility] [phone] * Nuvia Flannery APRN-ASSISTANT DIRECTOR OF [employer] - 03/13/2025 9:34 AM EDT Images from the original note were not included. Division of Infectious Diseases Progress note Academic Team Please contact us via C[employer] chat. After hours, call [phone] Patient name: Caren Suarez Patient Today's Date and Time: 03/13/2025, 9:34 AM Admission Date: 02/25/2025 Primary Care Physician: Riya Diego MD Impression and Recommendations: Leukocytosis Large bowel obstruction Metastatic colorectal cancer Peritonitis S/P paracentesis 02/28/2025 - nucleated cells are elevated at 1900 with neutrophil predominance (60%) Peritoneal fluid culture is negative to date Abdominal soft tissue mass bx path report +mucinous adenocarcinoma c/w colorectal origin Status post exp lap, total colectomy, bilateral salpingo-oopherectomy, vac placemement 03/07 Status post creation of ileostomy and abdominal closure Wbc has normalized Completed ceftriaxone and metronidazole Will monitor off antibiotics General surgery following Intra operative cardiac arrest Acute respiratory failure Patient is extubated Vent management per critical care Urinary retention Positive urine culture Patient was retaining urine and camara place last week. Urine culture +enterococcus. Patient was asymptomatic No fever or leukocytosis. Low suspicion for uti at this time Monitor off treatment TASHA Renal mass concerning for RCC Right hydronephrosis Positive urine culture Urine culture +VRE. No urinary symptoms when culture obtained. No systemic signs of infection at this time. No indication for treatment. Urology and nephrology following Acute PE, with R heart strain Multiple DVT On heparin Subjective Interval History: Patient seen and examined at bedside. Sitting in the chair. Awake and alert. Reports abdominal pain. No fever, chills or sweats. No shortness of breath or cough. No nausea, vomiting. Objective Physical Examination : BP 142/58 Pulse 78 Temp 36.4 ??C (97.5 ??F) (Oral) Resp 14 Ht 157.5 cm (5' 2.01 ) Wt 89.5kg (197 lb 5 oz) SpO2 94% BMI 36.08 kg/m?? Temperature Range: Temp: 36.4 ??C (97.5 ??F) Temp Av.8 ??C (98.3 ??F) Min: 36.4 ??C (97.5 ??F)Max: 37.5 ??C (99.5 ??F) General Appearance:lethargic and in no apparent distress Eyes: Sclera anicteric; conjunctivae pink Neck: Supple, without lymphadenopathy. Pulmonary/Chest: Clear to auscultation, without wheezes, rales, or rhonchi. Left sided chest tube in place Cardiovascular: Regular rate and rhythm without murmurs, rubs, or gallops. Abdomen: distended. Soft. Vac in place Extremities: No cyanosis, clubbing, , or effusions. +BLE edema Neurologic: Bulk and tone are normal. No atrophy is noted. Skin: No rash or lesions. Laboratory data: I have independently reviewed the following labs: Results from last 7 days Lab Units 03/13/25 0154 03/12/25 0205 03/11/25 1640 03/11/25 0210 03/09/25 1041 03/09/25 0332 WBC x10E9/L 5.5 5.9 -- 8.3 < > 15.5* HEMOGLOBIN g/dL 10.4* 10.2* 10.2* 10.1* < > 12.7 HEMATOCRIT % 32.5* 31.2* 31.2* 30.2* < > 39.3 MCV fL 82 81 -- 80 < > 81 PLATELETS X10E9/L 105* 92* -- 89* < > 155 EOS ABS MAN 10*3/uL -- -- -- -- -- 0.0 BASOS ABS MAN 10*3/uL -- -- -- -- -- 0.0 < > = values in this interval not displayed. Results from last 7 days Lab Units 03/13/25 0153 03/12/25 1355 03/12/25 0804 03/12/25 0205 03/11/25 0210 03/09/25 1833 03/09/25 1041 03/08/25 0043 03/08/25 0032 SODIUM mmol/L 147* -- -- 144 140 < > 139 < > 138 PORTABLE SODIUM -- -- -- -- -- -- -- < > -- POTASSIUM mmol/L 3.1* 4.0 3.7 3.1* 3.9 < > 4.9 < > 3.5 POC POTASSIUM -- -- -- -- -- -- -- < > -- CHLORIDE mmol/L 106 -- -- 109 109 < > 109 < > 105 CO2 mmol/L 34* -- -- 26 23 < > 23 < > 19* BUN mg/dL 16 -- -- 22 29* < > 30* < > 29* CREATININE mg/dL 0.64 -- -- 0.81 0.99 < > 1.09* < > 1.18* CALCIUM mg/dL 7.4* -- -- 7.0* 7.4* < > 7.8* < > 8.3* ALBUMIN g/dL -- -- -- -- -- -- 2.5* -- 1.9* ALK PHOS U/L -- -- -- -- -- -- 38* -- 37* ALT U/L -- -- -- -- -- -- 23 -- 33* AST U/L -- -- -- -- -- -- 33 -- 108* < > = values in this interval not displayed. Results from last 7 days Lab Units 03/06/25 1241 COLOR UA Yellow TURBIDITY Hazy* SPECIFIC GRAVITY, URINE 1.023 NITRITE UA Negative PH URINE 6.0 LEUKOCYTE ESTERASE Small* PROTEIN 50 mg/dL* KETONES (URINE) 20 mg/dL* UROBILINOGEN <1.1 eu/dL BLOOD Large* R. B. CELLS 197* WBC UA 25* Echo complete W/O contrast Result Date: 02/26/2025 Left Ventricle: Left ventricle is small. Systolic function is normal with an ejection fraction of 60-65%. No segmental wall motion abnormalities. Grade I diastolic dysfunction (impaired relaxation) is present. Lateral E' is 11.70 cm/s. Medial E' is 7.94 cm/s. Right Ventricle: Right ventricular sizeappears normal. The right ventricular basal diameter is 22.0 mm. Systolic function is normal. Aortic Valve: There is trace to mild regurgitation. There is no evidence of aortic valve stenosis. Imaging Studies: Procedure Component Value Units Date/Time X-ray chest 1 view [[id number]] Collected: 03/12/25440 Order Status: Completed Updated: 03/12/25444 Narrative: Clinical history: Intubated. Comparisons: 03/09/2025 through 03/11/2025. Findings: AP portable supine chest radiograph obtained. Endotracheal tube terminates 5 cm above thelevel of the venecia. Left-sided chest tube unchanged with sidehole likely just outside of the levelof the pleural space similar to previous 3 exams. There is no pneumothorax. There is bibasilar subsegmental atelectasis. Right IJ central venous catheter/sheath unchanged and confluence of innominate veins. PH probe terminates in distal esophagus. Nasogastric tube terminates off film in left upper abdomen. Pleural effusion. Continued decrease in volume of left lateral chest wall subcutaneous emphysema. IMPRESSION: 1. No pneumothorax. 2. Satisfactory ET tube position. Finalized by Arsalan Lott MD on 03/12/2025 4:44 AM I have personally reviewed this study. Cultures: Microbiology Results Procedure Component Value Units Date/Time Urine Culture Urine, Indwelling Catheter [[id number]] (Abnormal) (Susceptibility) Collected: 03/07/25 112 Specimen: Urine, Indwelling Catheter Updated: 03/10/25 112 CULTURE RESULTS 50,000-100,000 CFU/mL Vancomycin resistant Enterococcus species Susceptibility Vancomycin resistant Enterococcus species Not Specified Ampicillin >=32.0 Resistant Daptomycin 2.5 Susceptible (dose dependent) Levofloxacin >=8.0 Resistant Linezolid 2.0 Susceptible Nitrofurantoin 64 Intermediate Vancomycin >=32.0 Resistant Medications: acetaminophen, 1,000 mg, intravenous, Q6H JOSE folic acid, 1 mg, nasogastric, Daily insulin lispro, 2-10 Units, subcutaneous, Q6H pantoprazole, 40 mg, intravenous, Q24H JOSE sodium chloride, 10 mL, intravenous, Q8H AND sodium chloride, 10 mL, intravenous, PRN AND sodium chloride, 20 mL, intravenous, PRN Thank you for allowing us to participate in the care of this patient. Please call with questions. - NUVIA FLANNERY APRN-DUYEN 03/13/25 9:34 AM Nuvia Flannery APRN-DUYEN 03/13/25 1206 * Brenda Hayes MD - 03/13/2025 8:27 AM EDT Images from the original note were not included. [facility] Artur Small, [facility] Nephrology Consultation Note Patient Name: Caren Suarez : 1955 Date of Service: 03/13/25 PCP: Riya Diego MD Attending Physician: Ghassan Castillo MD Admission Date: 02/25/2025 Length of stay: LOS: 16 days Chief complaint. No chief complaint on file. Reason for Consult: Acute Kidney Injury Assessment and Plan. 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 She reports having a hard time breathing and a cough that went away ( she has had a hard time breathing and had a cough but it went away ). She had been treated by her PCP with steroids and antibiotics without improvement. An outpatient CT abdomen/pelvis on 02/24/2025 revealed a large right adnexal mass, a solid right renal lesion, and likely metastases to the lungs and abdomen. Venous duplex showed bilateral DVTs. She was transferred from [place] to [facility] for further evaluation and management. In the emergency department, she was started on a heparin drip. Workup upon admission included a CTA chest on 02/25/2025, which confirmed moderate right-sided pulmonary emboli without right heart strain. She is currently being treated for a urinary tract infection and bacterial peritonitis with IV Rocephin and Flagyl, with Infectious Disease on board. Nephrology consultation was requested for acute kidney injury. Assessment Acute Kidney Injury, likely multifactorial with hemodynamic and prerenal components, with concern for acute tubular necrosis (ATN). Baseline creatinine is approximately 0.9 mg/dL. The TASHA is in the setting of sepsis, treatment for bacterial peritonitis, and obs uropathy , There was contrast exposure on 02/24/2025. Right hydrnephrosis, 2.2 cm right renal mass lesion Urology evaluated the patient Mild hyponatremia on initial evaluation. Metabolic acidosis on initial evaluation. Volume Status: Euvolemic , possibly on low side Hypertension: Stable, though has been on the higher side. Hemodynamics: Echocardiogram on 02/26/2025 showed a normal LVEF of 60-65% with Grade I diastolic dysfunction and no evidence of right heart strain. Anemia Most recent hemoglobin is 10.8 g/dL. Sepsis secondary to bacterial peritonitis and UTI. 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 ? Rectal ca Acute pulmonary embolism and bilateral DVT. Malignant Bowel obstruction , patient is status post exploratory laparotomy, total colectomy, left in discontinuity, and BSO on 03/07/2025 , repeat Second Look laparotomy and ileostomy creation on 03/09/2025 Cardiac arrest intraoperatively, 03/07/2025 needing ACLS. Ventilator dependent respiratory failure postoperatively Plan We will hold diuresis today Strict ins and outs / accurate documentation of urine out put / daily weights and Bladder scan Q12 Avoid nephrotoxins, avoid contrast exposure unless absolutely necessary, avoid hemodynamic instability Dose all medications to GFR Monitor Renal Chem panel daily in AM Thank you for this consultation, we will follow along with you regarding care of this patient whilethe patient is here in the hospital, please call if you have any questions or concerns. BRENDA HAYES MD on 03/13/2025 at 8:27 AM [facility] [email or web address] - is now [employer] Schedule : See Epic on-call schedule for [facility] ( Tom Delarosa ) Nephrology Working Hours : Epic chat during working hours, if no response please use on- call physician reach out as below After Hours : Answering service contact : [phone] Office Phone number: [phone] Subjective Patient seen at bedside, she is sitting in chair, she is having some nausea and vomiting, edema is much better. No worsening in the respiratory status Discussed with surgery team, we will hold off on diuresis for today. Past Medical History: Diagnosis Date Deep vein thrombosis ([facility]) Past Surgical History: Procedure Laterality Date APPLICATION WOUND VAC MIDSECTION N/A 03/09/2025 Performed by Ghassan Castillo MD at [facility] CLOSURE WOUND ABDOMEN N/A 03/09/2025 Performed by Ghassan Castillo MD at [facility] ILEOSTOMY CREATION N/A 03/09/2025 Performed by Ghassan Castillo MD at [facility] LAPAROTOMY EXPLORATORY N/A 03/09/2025 Performed by Ghassan Castillo MD at [facility] LAPAROTOMY EXPLORATORY N/A 03/07/2025 Performed by Ghassan Castillo MD at [facility] RESECTION BOWEL SMALL N/A 03/09/2025 Performed by Ghassan Castillo MD at [facility] SALPINGO-OOPHORECTOMY Bilateral 03/07/2025 Performed by Faith Celis MD at [facility] TOTAL COLECTOMY N/A 03/07/2025 Performed by Ghassan Castillo MD at [facility] Family History Problem Relation Age of Onset Breast cancer Neg Hx Social History Socioeconomic History Marital status: Single Spouse name: Not on file Number of children: Not on file Years of education: Not on file Highest education level: Not on file Occupational History Not on file Tobacco Use Smoking status: Former Types: Cigarettes Smokeless tobacco: Never Substance and Sexual Activity Alcohol use: Never Drug use: Never Sexual activity: Not on file Other Topics Concern Not on file Social History Narrative Not on file Social Drivers of Health Financial Resource Strain: Not on file Food Insecurity: No Food Insecurity (02/25/2025) Hunger Screening Food Insecurity - Worry: Never True Food Insecurity - Inability: Never True Transportation Needs: No Transportation Needs (02/25/2025) PRAPARE - Transportation Lack of Transportation (Medical): No Lack of Transportation (Non-Medical): No Physical Activity: Not on file Stress: Not on file Social Connections: Not on file Interpersonal Safety: Not At Risk (02/25/2025) Humiliation, Afraid, Rape, and Kick questionnaire Fear of Current or Ex-Partner: No Emotionally Abused: No Physically Abused: No Sexually Abused: No Housing Instability: Low Risk (02/25/2025) Housing Instability Housing Instability: No Prior to Admission medications Medication Sig Start Date End Date Taking? Authorizing Provider apixaban (ELIQUIS) 5 mg tablet Take 2 tablets (10 mg total) by mouth 2 (two) times a day for 7 days, THEN 1 tablet (5 mg total) 2 (two) times a day for 30 days. 03/05/25 04/11/25 Eleni Harding APRN-ASSISTANT DIRECTOR OF [employer] Allergies Allergen Reactions Penicillin Physical Exam: VITALS BP 129/61 Pulse 79 Temp 36.4 ??C (97.5 ??F) (Oral) Resp 14 Ht 157.5 cm (5' 2.01 ) Wt 89.5kg (197 lb 5 oz) SpO2 94% BMI 36.08 kg/m?? Wt Readings from Last 3 Encounters: 03/13/25 89.5 kg (197 lb 5 oz) 02/24/25 74.4 kg (164 lb) BMI: Body mass index is 36.08 kg/m??. I/O (24 Hours) Intake/Output Summary (Last 24 hours) at 03/13/2025 0827 Last data filed at 03/13/2025 0700 Gross per 24 hour Intake 1177.9 ml Output 5322 ml Net -4144.1 ml General: Awake, alert, no acute distress HEENT: Atraumatic, normocephalic. Anicteric sclera. [place] and moist oral mucosa. Neck supple. No JVD. Chest: Bilateral air entry, clear to auscultation, no wheezing, rhonchi or rales. Cardiovascular: RRR, S1S2, no murmur, rub or gallop. No lower extremity edema. Abdomen: Soft, status post surgery, ileostomy in place Musculoskeletal: No cyanosis or clubbing. Integumentary: [place], warm and dry. Free from rash or lesions. CARBIDE GRINDER: Examination grossly nonfocal Medications Scheduled Meds: acetaminophen, 1,000 mg, intravenous, Q6H JOSE folic acid, 1 mg, nasogastric, Daily insulin lispro, 2-10 Units, subcutaneous, Q6H pantoprazole, 40 mg, intravenous, Q24H JOSE sodium chloride, 10 mL, intravenous, Q8H AND sodium chloride, 10 mL, intravenous, PRN AND sodium chloride, 20 mL, intravenous, PRN Continuous Infusions: dextrose 5 % in water, 100 mL/hr heparin, 300-3,500 Units/hr, Last Rate: 1,050 Units/hr (03/12/25 1737) sodium chloride 0.9 %, 20 mL/hr, Last Rate: 50 mL/hr (03/11/25 0523) sodium chloride 0.9 %, 3 mL/hr, Last Rate: 3 mL/hr (03/13/25 0636) sodium chloride 0.9 %, 20 mL/hr PRN Meds: calcium gluconate OR calcium gluconate OR calcium gluconate dextrose dextrose 5 % in water dextrose 50 % in water (D50W) glucagon (human recombinant) heparin (porcine) hydrALAZINE HYDROmorphone OR HYDROmorphone magnesium sulfate OR magnesium sulfate ondansetron potassium chloride OR potassium chloride potassium chloride in water OR potassium chloride in water sodium phosphate IV OR sodium phosphate IV - central line OR sod phos di, mono-K phos mono sodium chloride sodium chloride sodium chloride AND sodium chloride AND sodium chloride sodium chloride 0.9 % sodium chloride 0.9 % Results Review Renal Chemistry Results from last 7 days Lab Units 03/13/25 0153 03/12/25 1355 03/12/25 0804 03/12/25 0205 03/11/25 0210 03/10/25 1316 03/10/25 0331 03/09/25 1833 03/09/25 1041 SODIUM mmol/L 147* -- -- 144 140 -- 142 -- 139 POTASSIUM mmol/L 3.1* 4.0 3.7 3.1* 3.9 < > 4.5 < > 4.9 CHLORIDE mmol/L 106 -- -- 109 109 -- 108 -- 109 CO2 mmol/L 34* -- -- 26 23 -- 26 -- 23 BUN mg/dL 16 -- -- 22 29* -- 31* -- 30* CREATININE mg/dL 0.64 -- -- 0.81 0.99 -- 1.13* -- 1.09* CALCIUM mg/dL 7.4* -- -- 7.0* 7.4* -- 7.9* -- 7.8* MAGNESIUM mg/dL 1.9 -- -- 1.8 2.1 -- 2.2 -- 2.4 PHOSPHORUS mg/dL 2.1* -- -- 2.4 2.8 -- 3.7 -- 3.9 < > = values in this interval not displayed. Hepatic: Lab Results Component Value Date AST 33 03/09/2025 AST 108 (H) 03/08/2025 AST 21 02/24/2025 ALT 23 03/09/2025 ALT 33 (H) 03/08/2025 ALT 15 02/24/2025 ALKPHOS 38 (L) 03/09/2025 ALKPHOS 37 (L) 03/08/2025 ALKPHOS 105 02/24/2025 BNP Lab Results Component Value Date BNP 22 03/08/2025 BNP 34 03/06/2025 BNP 61 02/24/2025 CBC Results from last 7 days Lab Units 03/13/25 0154 03/12/25 0205 03/11/25 1640 03/11/25 0210 03/10/25 2030 03/10/25 1316 03/10/25 0331 03/09/25 2108 03/09/25 1041 WBC x10E9/L 5.5 5.9 -- 8.3 -- -- 10.3 -- 12.3* HEMOGLOBIN g/dL 10.4* 10.2* 10.2* 10.1* 10.4* < > 11.3* < > 11.6* HEMATOCRIT % 32.5* 31.2* 31.2* 30.2* 32.0* < > 34.5* < > 35.4 PLATELETS X10E9/L 105* 92* -- 89* -- -- 117* -- 140* < > = values in this interval not displayed. Results from last 7 days Lab Units 03/13/25 0457 03/13/25 0153 03/12/25 2144 03/12/25 1401 03/12/25 0929 BEDSIDE GLUCOSE mg/dL 147* -- 127* 128* 116* GLUCOSE mg/dL -- 120* -- -- -- Urine Studies: Lab Results Component Value Date COLOR Yellow 03/06/2025 TURBIDITY Hazy (A) 03/06/2025 SPECIFICGRA 1.023 03/06/2025 NITRITE Negative 03/06/2025 PHURINE 6.0 03/06/2025 LEUKOCYTE Small (A) 03/06/2025 PROTEIN 50 mg/dL (A) 03/06/2025 KETONES 20 mg/dL (A) 03/06/2025 UROBILINOGEN <1.1 eu/dL 03/06/2025 BLOODHGB Large (A) 03/06/2025 Lab Results Component Value Date UPROCRTRAT 0.25 (H) 03/06/2025 Urine Sodium: No components found for: CRYSTAL Urine Potassium: No results found for: KUR Urine Chloride: No results found for: CLUR Urine Osmolarity: No components found for: OSMOU Urine Creatinine: No results found for: LABCREA Urine Eosinophils: No components found for: UEOS Urine Protein: No components found for: TPU Immunology Profile No results found for: PROTELECTR , SEDRATE , CRP , RF , ANASCREEN , ANTIDSDNA , C3 , C4 , ANCA , MYELOP , PROTEINASE3 , ANTIGLOMERU No results found for: HAV , HEPAIGM , HEPBIGM , HEPBCAB , HBEAG , HEPCAB SP: No results found for: SP C3:No results found for: C3 C4:No results found for: C4 MPO ANCA: No results found for: MPO PR3 ANCA: No components found for: PR3 hepatitis serologies ANTIGBM:No components found for: GBMABIGG HEPATITIS B SURFACE AG: No results found for: HEPBSAG HEPATITIS C AB: No results found for: HEPCAB Electrophoresis: SPEP:No results found for: PROT , LABALPH , LABBETA , PATH UPEP:No results found for: LABPE Anemia Profile Lab Results Component Value Date WBC 5.5 03/13/2025 WBC 5.9 03/12/2025 HGB 10.4 (L) 03/13/2025 HGB 10.2 (L) 03/12/2025 HCT 32.5 (L) 03/13/2025 HCT 31.2 (L) 03/12/2025 PLT 105 (L) 03/13/2025 PLT 92 (L) 03/12/2025 Lab Results Component Value Date IRON 12 (L) 02/26/2025 TIBC 321 02/26/2025 FERRITIN 78 02/26/2025 Bone Mineral Profile Lab Results Component Value Date CALCIUM 7.4 (L) 03/13/2025 Results from last 7 days Lab Units 03/13/25 0153 03/12/25 0205 03/11/25 0210 MAGNESIUM mg/dL 1.9 1.8 2.1 Echocardiogram: Echo complete W/O contrast Result Date: 02/26/2025 Left Ventricle: Left ventricle is small. Systolic function is normal with an ejection fraction of 60-65%. No segmental wall motion abnormalities. Grade I diastolic dysfunction (impaired relaxation) is present. Lateral E' is 11.70 cm/s. Medial E' is 7.94 cm/s. Right Ventricle: Right ventricular sizeappears normal. The right ventricular basal diameter is 22.0 mm. Systolic function is normal. Aortic Valve: There is trace to mild regurgitation. There is no evidence of aortic valve stenosis. Thank you for the consultation. Please do not hesitate to contact us for any further questions/concerns. We will continue to follow along with you. * Sarath Hoover MD - 03/13/2025 7:36 AM EDT Images from the original note were not included. SICU Academic Critical Care PROGRESS NOTE Admission Date: 02/25/2025 5:24 PM Attending Physician: Deena Branch MD Date of 1955 Hospital Day: 16 day(s) Caren Suarez is a 69 y.o. female with past medical history of DVT, HTN, who was admitted to [facility] after a CT A/P at an OSH demonstrated large partially solid cystic lesions. At that time she was found to have multiple DVTs and PEs. She was transferred to [facility] for a higher level of care. On arrival, her DVTs were being treated with heparin. Colorectal surgery was consulted on 03/07 for possible bowel obstruction. At that time a CT A/P demonstrated colonic dilation with transition at the sigmoid junction. There is concern for acute malignant obstruction for known mucinous adenocarcinoma with colorectal origin. After stabilization of the patient's INR with [facility] on 03/07, the decisionwas made to take her to the operating room as a joint case between Colorectal on Electronic [employer] Specialist/Onc. At the beginning of the case, patient initially desaturated prior to incision. It was believed thatthis was due to the significant malignant ascites compressing the lungs. Decision was made to proceed with the case, and after decompression the patient's respiratory status significantly improved. The patient later went into cardiac arrest within the operating room and a code was initiated. Compressions were begun, epi was administered. After 2 rounds of compressions ROSC was obtained. ABThera was placed and the patient was transferred to the surgical ICU intubated and sedated. Overnight Events: NAEO. PEEP is down to 8, FiO2 40%. Pt following commands Physical Exam: Vital Signs: BP 140/65 Pulse 91 Temp 36.4 ??C (97.5 ??F) (Oral) Resp 20 Ht 157.5 cm (5' 2.01 ) Wt 89.5 kg (197 lb 5 oz) SpO2 95% BMI 36.08 kg/m?? HENT: Head atraumatic, normocephalic, external ears and nose are normal Eyes: Conjunctivae clear, non-icteric, EOMI Pulmonary: Pulmonary effort is normal, nasal cannula in place Cardiovascular: Regular rate and rhythm, radial pulses 2+, non-edematous x4 extremities Abdomen: Wound vac in place, ileostomy pouch in place, brown liquid stool in ostomy bag Musculoskeletal: Range of motion grossly normal x4 extremities, no deformity x4 extremities Neurological: alert Skin: Warm, dry, without jaundice Intake/Output Summary (Last 24 hours) at 03/13/2025 0736 Last data filed at 03/13/2025 0636 Gross per 24 hour Intake 1147.9 ml Output 5172 ml Net -4024.1 ml O2 Device: Nasal cannula Ventilator Settings Vent Mode: CPAP FiO2 (%): 40 % Resp Rate (Set): 20 Avea Vt (Set, L): 0.4 Liter PEEP/CPAP (cm H2O): 8 cm H20 Insp Time (sec): 0.92 sec Trigger Sensitivity Flow (L/min): 1 L/min Trigger Sensitivity Pressure (cm H2O): 3 cm H2O Humidification: Heat and moisture exchanger Invasive Hemodynamic [place] Results from last 3 days Lab Units 03/13/25 0153 03/12/25 1355 03/12/25 0804 03/12/25 02003/11/25 02103/11/25 0037 03/10/25 1747 03/10/25 1316 BUN mg/dL 16 -- -- 22 29* -- -- -- CREATININE mg/dL 0.64 -- -- 0.81 0.99 -- -- -- POTASSIUM mmol/L 3.1* 4.0 3.7 3.1* 3.9 4.0 4.1 4.2 CO2 mmol/L 34* -- -- 26 23 -- -- -- CHLORIDE mmol/L 106 -- -- 109 109 -- -- -- MAGNESIUM mg/dL 1.9 -- -- 1.8 2.1 -- -- -- Results from last 3 days Lab Units 03/13/2515303/12/2520403/11/25 021 INR 1.3* 1.2 1.2 PROTIME sec 14.4* 13.5* 13.4* Results from last 3 days Lab Units 03/13/25 01503/12/25 0205 03/11/25 1640 03/11/25 0210 03/10/25 2030 03/10/25 1316 WBC x10E9/L 5.5 5.9 -- 8.3 -- -- HEMOGLOBIN g/dL 10.4* 10.2* 10.2* 10.1* 10.4* 10.7* HEMATOCRIT % 32.5* 31.2* 31.2* 30.2* 32.0* 33.1* PLATELETS X10E9/L 105* 92* -- 89* -- -- MCV fL 82 81 -- 80 -- -- MCH pg 26.1* 26.4* -- 26.8* -- -- MCHC g/dL 31.9* 32.6 -- 33.4 -- -- RDW % 27.6* 26.7* -- 26.6* -- -- Microbiology Results Procedure Component Value Units Date/Time Urine Culture Urine, Indwelling Catheter [[id number]] (Abnormal) (Susceptibility) Collected: 03/07/251121 Specimen: Urine, Indwelling Catheter Updated: 03/10/251126 CULTURE RESULTS 50,000-100,000 CFU/mL Vancomycin resistant Enterococcus species Susceptibility Vancomycin resistant Enterococcus species Not Specified Ampicillin >=32.0 Resistant Daptomycin 2.5 Susceptible (dose dependent) Levofloxacin >=8.0 Resistant Linezolid 2.0 Susceptible Nitrofurantoin 64 Intermediate Vancomycin >=32.0 Resistant Glucose Results from last 7 days Lab Units 03/13/25 0457 03/13/25 0153 03/12/25 2144 03/12/25 1401 03/12/25 0929 03/12/25 0924 03/12/25 0311 03/12/25 0205 03/11/25 2052 03/11/25 1645 03/11/25 1059 03/11/25 0320 BEDSIDE GLUCOSE mg/dL 147* -- 127* 128* 116* <20* 86 -- 74 73 81 99 GLUCOSE mg/dL -- 120* -- -- -- -- -- 86 -- -- -- -- Lines/Drains CVC Triple Lumen 03/07/25 Right Internal Jugular (Active) Precautions Standard precautions;Hand hygiene;Gloves 03/08/25 0300 Lumen 1 Proximal 03/08/25 0300 Lumen 1 Status Blood return noted;Flushed;Infusing 03/08/25 0300 Lumen 2 Medial 03/08/25 0300 Lumen 2 Status Blood return noted;Flushed;Infusing 03/08/25 0300 Lumen 3 Distal 03/08/25 0300 Lumen 3 Status Blood return noted;Flushed;Infusing 03/08/25 0300 Site Assessment Clean;Dry;Intact 03/08/25 0000 Dressing Type Transparent;Occlusive 03/08/25 0300 Dressing Status Clean;Dry;Intact 03/08/25 0300 Dressing Intervention Initial dressing 03/08/25 0300 Line Necessity Peripherally incompatible solution 03/08/25 0300 Line Necessity Reviewed With cc 03/08/25 0300 Patient Tolerance of Line Care Tolerated well 03/08/25 0300 Central Line Dressing Change Due (Non-Gauze) 03/15/25 03/08/25 0000 Peripheral IV 03/05/25 Anterior;Left Forearm (Active) Line Status Infusing;Flushed 03/08/25 0300 Site Assessment Clean;Intact;Dry 03/08/25 0300 Dressing Type Transparent;Occlusive 03/08/25 0300 Dressing Status Intact;Clean;Dry 03/08/25 0300 Dressing Intervention Initial dressing 03/08/25 0300 Dressing Change Due (Non-Gauze) 03/12/25 03/05/25 0649 Peripheral IV 03/06/25 Anterior;Right Forearm (Active) Line Status Infusing;Flushed 03/08/25 0300 Site Assessment Clean;Dry;Intact 03/08/25 0300 Dressing Type Transparent;Occlusive 03/08/25 0300 Dressing Status Intact;Dry;Clean 03/08/25 0300 Dressing Intervention Initial dressing 03/08/25 0300 Dressing Change Due (Non-Gauze) 03/13/25 03/06/25 2105 Chest Tube 03/08/25 Left (Active) Function -20 cm H2O 03/08/25 0300 Air Leak No 03/08/25 0300 (1) Drainage Description Serosanguineous 03/08/25 0300 (1) Dressing Type Gauze;Occlusive 03/08/25 0300 (1) Dressing Status Clean;Dry;Intact 03/08/25 0300 (1) Dressing Intervention Initial dressing 03/08/25 0300 (1) Site Assessment Clean;Intact;Dry 03/08/25 0300 Output (mL) 20 mL 03/08/25 0600 Negative Pressure Wound Therapy 03/07/25 Surgical Quadrant;Mid Abdomen (Active) Assessed: Compressed 03/08/25 0300 Cycle Continuous 03/08/25 0300 Target Pressure (mmHg) 125 03/08/25 0300 Dressing Status Clean;Dry;Intact 03/08/25 0300 Dressing Changed New 03/08/25 0000 Output (mL) 200 mL 03/08/25 0600 NG/OG Tube 03/08/25 Left nostril (Active) Placement Verification External length measured 03/08/25 030 Status Suction-low intermittent 03/08/25 0300 Tube Site Care Completed 03/08/25 030 Secured at (cm) 55 cm 03/08/25 030 Securement Method Securing device (Describe) 03/08/25 030 Dressing Status/Interventions Clean;Dry;Intact 03/08/25 030 Drainage Appearance Bile 03/08/25 0300 Urinary Catheter 03/06/25 Single lumen (Active) Catheter Status Patent 03/08/25 030 Site Assessment Clean;Skin intact 03/08/25 030 Collection Container Standard drainage bag/container 03/08/25 030 Securement Method Right 03/08/25 030 Tamper Evident Seal Intact Yes 03/08/25 030 Indication for Continuation Uro/jewel bearing turner surgical considerations 03/08/25 0000 Urine Color Yellow/straw 03/08/25 030 Urine Appearance Clear 03/08/25 0300 Output (mL) 50 mL 03/08/25 0700 ETT 03/07/25 Cuffed;Inflated Oral (Active) Secured at (cm) 22 cm 03/08/25 030 Measured from Lips 03/08/25 030 Secured Location Center 03/08/25 020 Secured by Commercial tube du 03/08/25 030 Cuff Pressure (cm H2O) 30 cm H2O 03/08/25 0200 Arterial Line 03/07/25 Left Radial (Active) Line Status Infusing;Blood return noted;Pulsatile blood flow;Flushed 03/08/25 030 Line Interventions Zeroed and calibrated;Leveled;Connections checked and tightened;Pressure bag maintained 03/08/25 030 Waveform Appropriate 03/08/25 030 Site Assessment Clean;Intact;Dry 03/08/25 030 Dressing Type Transparent;Occlusive 03/08/25 030 Dressing Status Clean;Dry;Intact 03/08/25 030 Dressing Intervention Initial dressing 03/08/25 0300 Color/Movement/Sensation Capillary refill less than 3 sec 03/08/25 030 Patient Tolerance of Line Care Tolerated well 03/08/25 030 Line Necessity Invasive hemodynamic monitoring 03/08/25 030 Line Necessity Reviewed With cc 03/08/25 0300 Dressing Change Due (Non-Gauze) 03/15/25 03/08/25 0000 ACTIVE PROBLEM LIST: S/p cardiac arrest Malignant bowel obstruction s/p total colectomy and bilateral salpingo-oophorectomy Pulmonary embolism Multiple DVT Blood loss anemia Acute Kidney Injury w/ concern for acute tubular necrosis Malignant Colorectal Cancer Bacterial Peritonitis Ovarian Cystic Lesion ASSESSMENT/PLAN: Caren Suarez is a 69 y.o. female who is s/p total colectomy and bilateral salpingo-oophorectomy for malignant bowel obstruction for known mucinous adenocarcinoma. 1. Neuro S/p cardiac arrest CT Head without contrast: No acute intracranial process. Hospital Meds: Sedation: None Analgesia: fentanyl discontinued, scheduled Ofirmev, dilaudid PRN Other: n/a Home Meds: N/a 2. Pulmonary Pulmonary embolism, multiple DVT - CTA Chest 03/08/25:Slightly decreased burden of right sided pulmonary emboli. No new emboli. Left chest tube, moderate left pneumothorax, significant subcutaneous emphysema, mild dependent edema and consolidation left lung. Vascular venous duplex 02/24/25 Acute femoropopliteal deep vein thrombosis, acute deep tibioperoneal vein thrombosis, acute deep calf muscle vein thrombosis - Vascular Surgery is consulted - Restarted on heparin - Encourage IS, ambulation 03/13/25 CXR: Lower lobe atelectasis and small effusions. No pneumothorax. Subcutaneous gas slightlydecreased overlying left chest as compared to previous exam. 03/12/25 CXR post-extubation: No pneumothorax. Persistent left body wall emphysema. No definite pneumothorax seen. Left greater than right bibasilar opacities, likely atelectasis. 03/12/25 CXR: No pneumothorax. Satisfactory ET tube position. - Pt doing well from pulmonary standpoint. Can likely extubate today 03/11/25 CXR: Decreasing small left pneumothorax. Otherwise, stable chest. 03/10/25 CXR: Pneumothorax remains with a indwelling left chest tube. Pneumothorax is larger than theprior study currently approximately 17 mm at the left upper lobe. The amount of gas within the leftchest wall is increasing. 03/09/25 CXR: There is a 1 cm left apical pneumothorax. Sidehole of the left-sided chest tube is outside of the pleural space in the left lateral chest wall. Improved aeration of the left lung. 03/08/25 CXR: Left chest tube has been pulled back, with tip remaining in the hemithorax however sideport outside of the pleural space in the chest wall Breathing Support: Nasal Cannula Continuous pulse oximetry Hospital Meds: None Home Meds: None 3. Cardiovascular S/p cardiac arrest, shock Hemodynamics: NSR Normotensive Pressors: None Goal MAP >65 Continuous cardiac monitoring Hospital Meds: IV Heparin drip Home Meds: Unknown PMH: Hypertension, previous DVTs PSH: None known Code Status: Full 4. GI Malignant bowel obstruction s/p total colectomy and bilateral salpingo-oophorectomy Status post total colectomy, left in discontinuity, ABThera in place 03/07/25 Status post 2nd look and end ileostomy creation, wound vac in place 03/09/25 NG Tube: 392 cc Diet: NPO, tube feeds, bedside swallow to assess for clear liquids Bowel Function: Await return of bowel function Hospital Meds: N/a Home Meds: None known 5. Renal/Genitourinary TASHA w/ concern for acute tubular necrosis - nephrology consult 03/09/25 - Nephrology consulted Lasix 40mg IV BID completed 03/12, strict ins and outs, bladder scan q12 Lab Results Component Value Date SODIUM 147 (H) 03/13/2025 SODIUM 144 03/12/2025 SODIUM 140 03/11/2025 CL 106 03/13/2025 CL 109 03/12/2025 CL 109 03/11/2025 K 3.1 (L) 03/13/2025 K 4.0 03/12/2025 K 3.7 03/12/2025 CO2 34 (H) 03/13/2025 CO2 26 03/12/2025 CO2 23 03/11/2025 Electrolytes: Lab Results Component Value Date BUN 16 03/13/2025 BUN 22 03/12/2025 BUN 29 (H) 03/11/2025 CREATININE 0.64 03/13/2025 CREATININE 0.81 03/12/2025 CREATININE 0.99 03/11/2025 CALCIUM 7.4 (L) 03/13/2025 CALCIUM 7.0 (L) 03/12/2025 CALCIUM 7.4 (L) 03/11/2025 MG 1.9 03/13/2025 MG 1.8 03/12/2025 MG 2.1 03/11/2025 PHOSPHORUS 2.1 (L) 03/13/2025 PHOSPHORUS 2.4 03/12/2025 PHOSPHORUS 2.8 03/11/2025 Will replace electrolytes PRN per ICU protocol Fluid Balance: No maintenance IV fluids IV fluids/24H: 1.14 L UOP/24 H: 4.605 L Net Fluid/24H: -4.0 L Net Fluid Since admission: +1.737 Strict monitoring of Ins and Outs Hospital Meds: none Home Meds: None known 6. Heme Blood loss anemia Labs: Lab Results Component Value Date HGB 10.4 (L) 03/13/2025 HGB 10.2 (L) 03/12/2025 HGB 10.2 (L) 03/11/2025 PLT 105 (L) 03/13/2025 PLT 92 (L) 03/12/2025 PLT 89 (L) 03/11/2025 Lab Results Component Value Date INR 1.3 (H) 03/13/2025 INR 1.2 03/12/2025 INR 1.2 03/11/2025 Type and Screen: A neg Blood Products Administered: 3U PRBC (03/08/25 at 0200) Will continue to monitor Hgb and transfuse PRN 7. ID Leukocytosis Bacterial Peritonitis Ovarian Cystic Lesion - Infectious disease is onboard - Completed course of metronidazole and ceftriaxone 03/12 -Urine culture + for VRE. No urinary symptoms when culture obtained. No systemic signs of infectionat this time. No indication for treatment. Tmax/24H: 36.9 Labs: Lab Results Component Value Date WBC 5.5 03/13/2025 WBC 5.9 03/12/2025 WBC 8.3 03/11/2025 Micro: Peritoneal fluid culture collected [facility] Meds: Antibiotics: rocephin and flagyl completed 8. Endocrine Lab Results Component Value Date GLU 147 (H) 03/13/2025 GLU 120 (H) 03/13/2025 GLU 127 (H) 03/12/2025 Goal Blood Glucose <180 mg/dL Hospital Meds: ISS PMH: none known 9. Musculoskeletal PMH: n/a PSH: n/a PT/OT to see today 10. Prophylaxis Respiratory: none GI: protonix DVT: SCD Cuffs, heparin 11. Lines PIV x2 L radial A line Camara Right IJ CVC NG tube Disposition: Stable, possible transfer Sherley Rios, MS3 I was present with the medical student who participated in the service and documentation. I have verified the student's documentation of the history, performed the physical exam, and personally performed the medical decision-making. Sarath Hoover MD General Surgery Resident, PGY1 Cosigned by Orion Damico MD at 03/13/2025 8:33 AM EDT Associated attestation - Orion Damico MD - 03/13/2025 8:33 AM EDT Attending Attestation: I saw the patient. I participated and was physically present during the critical/fuentes portions of the service. I was directly involved in the management and treatment plan of the patient. I reviewed the resident's note. Additional Notes/Findings: <<<<<<<<<<<<<<<<<< Surgical Critical Care Attending >>>>>>>>>>>>>>>>>>>>>>>> I have seen and evaluated the patient, and have also reviewed the history above. Patient is critically ill and has a high probability of imminent or life- threatening deterioration, that requires highcomplexity decision making and failure to do so may cause further life threatening deterioration. Ihave repeated and performed the fuentes portions of the physical exam and concur with the resident's/advanced practice provider findings with the exception of the below additions. I have reviewed all pertinent laboratory findings and imaging reports/films. We have discussed the patient's status and theappropriate treatment options/plan on the day of the encounter. I agree with the plan as noted above except for changes below. Critical care time spent with the patient today = 31 minutes. Diagnoses: Acute respiratory failure with hypoxia Cardiac arrest Acute blood loss anemia Hypocalcemia Pulmonary embolism DVT TASHA Hypoalbuminemia Sepsis hypokalemia Plan: Extubated well. Now on 4L supplemental oxygen for hypoxia PTOT On ceftriaxone and flagyl. ID involved. Nephrology following. Creatinine normal. Appreciate their help. Hypernatremia today. I and O -3.9L/24 hours and +1.7L/HS CXR clear other than the Right lower lobe atelactasis Orion Damico MD, FACS [facility] General Surgeons Minimally Invasive Robotic Surgery Surgical Critical Care Trauma Office: [phone] Please feel free to call with questions at anytime. * OK Dang - 03/13/2025 7:26 AM EDT Images from the original note were not included. Colorectal Surgery Daily Progress Note Patient Name: Caren Suarez Admit Date: 02/25/2025 Length of Stay: 16 Days Admitting Physician: Deena Branch MD Subjective: Patient is postoperative day 5 from exploratory laparotomy, total colectomy, left in discontinuity,and BSO and post operative day 3 from abdominal washout, end ileostomy creation, and abdominal closure. Chest tube removed. On 5L per NC No GI bleeding. She is sitting up in chair. Oriented. Pain controlled at present. IS at bedside Objective: Vitals: 03/13/25 0700 BP: 140/65 Pulse: 91 Resp: 20 Temp: 36.4 ??C (97.5 ??F) SpO2: Temp: [36.4 ??C (97.5 ??F)-37.5 ??C (99.5 ??F)] 36.4 ??C (97.5 ??F) Pulse: [75-120] 91 Resp: [8-23] 20 BP: (117-140)/(57-99) 140/65 Arterial Line BP: (84-157)/(50-109) 105/83 FiO2 (%): [40 %] 40 % SpO2: [93 %-98 %] 95 % O2 Device: Nasal cannula O2 Flow Rate (L/min): [4 L/min-5 L/min] 4 L/min Allergies Allergen Reactions Penicillin Intake/Output last 3 shifts: I/O last 3 completed shifts: In: 1704.8 [I.V.:894.9; NG/GT:501; IV Piggyback:308.9] Out: 7547 [Urine:6930; Drains:125; Stool:400; Chest Tube:92] Intake/Output this shift: No intake/output data recorded. Dietary Orders (From admission, onward) Start Ordered 03/11/25 1534 Tube feeding No tray-Continuous Tube feeding No Tray-Continuous; Nasogastric or Oral gastric feeding tube; Standard 1.5 kcal; 10; 10 Continuous Comments: Osmolite 1.5 References: Formulary Card Question Answer Comment Diet Type: Tube feeding No Tray-Continuous Tube Type: Nasogastric or Oral gastric feeding tube Tube Feeding Formula: Standard 1.5 kcal Tube Feeding Start Rate (mL/hour): 10 Goal Rate (mL/hour): 03/11/25 153 Physical Exam Physical Exam Constitutional: Interventions: Nasal cannula in place. Comments: +NG Cardiovascular: Rate and Rhythm: Regular rhythm. Pulmonary: Effort: Pulmonary effort is normal. Abdominal: General: Bowel sounds are normal. Comments: Wound vac in place. Stoma pink, brown liquid stool noted in ostomy bag Neurological: Mental Status: She is alert. 24 hour urine output: 4600 24hour wound VAC output: 75 mL Laboratory Data: Lab Results Component Value Date WBC 5.5 03/13/2025 HGB 10.4 (L) 03/13/2025 HCT 32.5 (L) 03/13/2025 MCV 82 03/13/2025 PLT 105 (L) 03/13/2025 Lab Results Component Value Date GLU 147 (H) 03/13/2025 CALCIUM 7.4 (L) 03/13/2025 K 3.1 (L) 03/13/2025 CO2 34 (H) 03/13/2025 CL 106 03/13/2025 BUN 16 03/13/2025 CREATININE 0.64 03/13/2025 Component Latest Ref Rng 03/13/2025 Phosphorus 2.4 - 4.9 mg/dL 2.1 (L) Legend: (L) Low No results found for: AMYLASE No results found for: LIPASE Lab Results Component Value Date ALT 23 03/09/2025 AST 33 03/09/2025 ALKPHOS 38 (L) 03/09/2025 Component Latest Ref Rng 03/12/2025 Protime 9.8 - 13.2 sec 13.5 (H) Inr 0.9 - 1.2 1.2 aPTT 26 - 37 sec 48 (H) Heparin anti-xa, unfractionated 0.30 - 0.70 IU/mL 0.28 (L) Legend: (H) High (L) Low chlorhexidine, 15 mL, mouth/throat, BID folic acid, 1 mg, nasogastric, Daily insulin lispro, 2-10 Units, subcutaneous, Q6H pantoprazole, 40 mg, intravenous, Q24H JOSE sodium chloride, 10 mL, intravenous, Q8H AND sodium chloride, 10 mL, intravenous, PRN AND sodium chloride, 20 mL, intravenous, PRN acetaminophen calcium gluconate OR calcium gluconate OR calcium gluconate dextrose dextrose 5 % in water dextrose 50 % in water (D50W) glucagon (human recombinant) heparin (porcine) hydrALAZINE HYDROmorphone OR HYDROmorphone magnesium sulfate OR magnesium sulfate ondansetron potassium chloride OR potassium chloride potassium chloride in water OR potassium chloride in water sodium phosphate IV OR sodium phosphate IV - central line OR sod phos di, mono-K phos mono sodium chloride sodium chloride sodium chloride AND sodium chloride AND sodium chloride sodium chloride 0.9 % sodium chloride 0.9 % Imaging: X-ray chest 1 view CLINICAL HISTORY: Postextubation Comparison: 03/12/2025 Views: 1 view FINDINGS: * NG tube courses below GE junction. Double-lumen catheter overlies SVC. Lower lobe atelectasis andsmall effusions. No pneumothorax. Subcutaneous gas slightly decreased overlying left chest as compared to previous exam. IMPRESSION: * No significant change Finalized by Jb Cifuentes MD on 03/13/2025 7:02 AM Assessment: Caren Suarez is a 69 y.o. 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 Patient's surgery was complicated by obstructive shock and cardiac collapse resulting in need for ACLS. ROSC was obtained and patient was transferred to [facility] postoperatively. Patient subsequently went for 2nd loop laparotomy, fascial closure, ileostomy creation on 03/09/2025. 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 2.2 cm right interpolar renal mass concerning for RCC Right-sided PE without heart strain Left pneumothorax, resolved, chest tube out Multiple DVT Pulmonary nodules likely metastasis Obstructive shock from PE now off vasopressors Status post cardiac arrest intraoperatively Acute blood loss anemia, Hgb currently stable Coagulopathy, improving Thrombocytopenia, stable Metabolic acidosis Acute respiratory failure requiring mechanical ventilation, now extubated VRE UTI, no abx indicated for now per ID Peritonitis diagnosed on paracentesis 02/28/25, with complete treatment, now on empiric antibiotics Plan: Recommend bedside swallow, and clear liquids if passes Suggest continuation of tube feeds until adequate po intake Refeeding precautions given electrolyte derangement Continue heparin, not ready for DOAC yet Antibiotics per ID Incentive spirometry 10 x per hour Wound care, wound vac per ET Appreciate nephrology recommendations, lasix BID 48 hrs, noted hypernatremia today, defer fluids totheir recommendations. Appreciate oncology recommendations Appreciate palliative medicine assistance with goals of care in regards to her cancer Appreciate remainder of care per critical care team Monitor thrombocytopenia and transfuse plts if active bleeding Any Bergman PA-C Colorectal Surgery 6a - 6p Pager: [phone] 6p - 6a Pager: [phone] [place] Dang 03/13/25 1006 * Brenda Hayes MD - 03/12/2025 2:14 PM EDT Images from the original note were not included. [facility] Artur Small, [facility] Nephrology Consultation Note Patient Name: Caren Suarez : 1955 Date of Service: 03/12/25 PCP: Riya Diego MD Attending Physician: Ghassan Castillo MD Admission Date: 02/25/2025 Length of stay: LOS: 15 days Chief complaint. No chief complaint on file. Reason for Consult: Acute Kidney Injury Assessment and Plan. 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 She reports having a hard time breathing and a cough that went away ( she has had a hard time breathing and had a cough but it went away ). She had been treated by her PCP with steroids and antibiotics without improvement. An outpatient CT abdomen/pelvis on 02/24/2025 revealed a large right adnexal mass, a solid right renal lesion, and likely metastases to the lungs and abdomen. Venous duplex showed bilateral DVTs. She was transferred from [place] to [facility] for further evaluation and management. In the emergency department, she was started on a heparin drip. Workup upon admission included a CTA chest on 02/25/2025, which confirmed moderate right-sided pulmonary emboli without right heart strain. She is currently being treated for a urinary tract infection and bacterial peritonitis with IV Rocephin and Flagyl, with Infectious Disease on board. Nephrology consultation was requested for acute kidney injury. Assessment Acute Kidney Injury, likely multifactorial with hemodynamic and prerenal components, with concern for acute tubular necrosis (ATN). Baseline creatinine is approximately 0.9 mg/dL. The TASHA is in the setting of sepsis, treatment for bacterial peritonitis, and obs uropathy , There was contrast exposure on 02/24/2025. Right hydrnephrosis, 2.2 cm right renal mass lesion Urology evaluated the patient Mild hyponatremia on initial evaluation. Metabolic acidosis on initial evaluation. Volume Status: Euvolemic , possibly on low side Hypertension: Stable, though has been on the higher side. Hemodynamics: Echocardiogram on 02/26/2025 showed a normal LVEF of 60-65% with Grade I diastolic dysfunction and no evidence of right heart strain. Anemia Most recent hemoglobin is 10.8 g/dL. Sepsis secondary to bacterial peritonitis and UTI. 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 ? Rectal ca Acute pulmonary embolism and bilateral DVT. Malignant Bowel obstruction , patient is status post exploratory laparotomy, total colectomy, left in discontinuity, and BSO on 03/07/2025 , repeat Second Look laparotomy and ileostomy creation on 03/09/2025 Cardiac arrest intraoperatively, 03/07/2025 needing ACLS. Ventilator dependent respiratory failure postoperatively Plan Lasix 40 mg IV b.I.d. for today Renal function stable, continue to monitor Strict ins and outs / accurate documentation of urine out put / daily weights and Bladder scan Q12 Avoid nephrotoxins, avoid contrast exposure unless absolutely necessary, avoid hemodynamic instability Dose all medications to GFR Monitor Renal Chem panel daily in AM Thank you for this consultation, we will follow along with you regarding care of this patient whilethe patient is here in the hospital, please call if you have any questions or concerns. BRENDA HAYES MD on 03/12/2025 at 2:14 PM [place] [facility] [email or web address] - is now [employer] Schedule : See Epic on-call schedule for [facility] ( [facility] ) Nephrology Working Hours : Epic chat during working hours, if no response please use on- call physician reach out as below After Hours : Answering service contact : [phone] Office Phone number: [phone] Subjective Patient now extubated Doing well No acute distress Past Medical History: Diagnosis Date Deep vein thrombosis (CMS-HCC) Past Surgical History: Procedure Laterality Date APPLICATION WOUND VAC MIDSECTION N/A 03/09/2025 Performed by Ghassan Castillo MD at [facility] CLOSURE WOUND ABDOMEN N/A 03/09/2025 Performed by Ghassan Castillo MD at [facility] ILEOSTOMY CREATION N/A 03/09/2025 Performed by Ghassan Castillo MD at [facility] LAPAROTOMY EXPLORATORY N/A 03/09/2025 Performed by Ghassan Castillo MD at [facility] LAPAROTOMY EXPLORATORY N/A 03/07/2025 Performed by Ghassan Castillo MD at [facility] RESECTION BOWEL SMALL N/A 03/09/2025 Performed by Ghassan Castillo MD at [facility] SALPINGO-OOPHORECTOMY Bilateral 03/07/2025 Performed by Faith Celis MD at [facility] TOTAL COLECTOMY N/A 03/07/2025 Performed by Ghassan Castillo MD at [facility] Family History Problem Relation Age of Onset Breast cancer Neg Hx Social History Socioeconomic History Marital status: Single Spouse name: Not on file Number of children: Not on file Years of education: Not on file Highest education level: Not on file Occupational History Not on file Tobacco Use Smoking status: Former Types: Cigarettes Smokeless tobacco: Never Substance and Sexual Activity Alcohol use: Never Drug use: Never Sexual activity: Not on file Other Topics Concern Not on file Social History Narrative Not on file Social Drivers of Health Financial Resource Strain: Not on file Food Insecurity: No Food Insecurity (02/25/2025) Hunger Screening Food Insecurity - Worry: Never True Food Insecurity - Inability: Never True Transportation Needs: No Transportation Needs (02/25/2025) PRAPARE - Transportation Lack of Transportation (Medical): No Lack of Transportation (Non-Medical): No Physical Activity: Not on file Stress: Not on file Social Connections: Not on file Interpersonal Safety: Not At Risk (02/25/2025) Humiliation, Afraid, Rape, and Kick questionnaire Fear of Current or Ex-Partner: No Emotionally Abused: No Physically Abused: No Sexually Abused: No Housing Instability: Low Risk (02/25/2025) Housing Instability Housing Instability: No Prior to Admission medications Medication Sig Start Date End Date Taking? Authorizing Provider apixaban (ELIQUIS) 5 mg tablet Take 2 tablets (10 mg total) by mouth 2 (two) times a day for 7 days, THEN 1 tablet (5 mg total) 2 (two) times a day for 30 days. 03/05/25 04/11/25 Eleni Harding APRN-ASSISTANT DIRECTOR OF RESIDENCE LIFE Allergies Allergen Reactions Penicillin Physical Exam: VITALS BP (!) 136/99 Pulse 112 Temp 37.4 ??C (99.3 ??F) (Axillary) Resp 11 Ht 157.5 cm (5' 2.01 ) Wt 89.5 kg (197 lb 5 oz) SpO2 97% BMI 36.08 kg/m?? Wt Readings from Last 3 Encounters: 03/12/25 89.5 kg (197 lb 5 oz) 02/24/25 74.4 kg (164 lb) BMI: Body mass index is 36.08 kg/m??. I/O (24 Hours) Intake/Output Summary (Last 24 hours) at 03/12/2025 1414 Last data filed at 03/12/2025 1100 Gross per 24 hour Intake 1055.09 ml Output 4155 ml Net -3099.91 ml General: Awake, alert, no acute distress HEENT: Atraumatic, normocephalic. Anicteric sclera. [place] and moist oral mucosa. Neck supple. No JVD. Chest: Bilateral air entry, clear to auscultation, no wheezing, rhonchi or rales. Cardiovascular: RRR, S1S2, no murmur, rub or gallop. No lower extremity edema. Abdomen: Soft, status post surgery, ileostomy in place Musculoskeletal: No cyanosis or clubbing. Integumentary: [place], warm and dry. Free from rash or lesions. CARBIDE GRINDER: Examination grossly nonfocal Medications Scheduled Meds: cefTRIAXone (ROCEPHIN) IV, 2,000 mg, intravenous, Q24H chlorhexidine, 15 mL, mouth/throat, BID folic acid, 1 mg, nasogastric, Daily furosemide, 40 mg, intravenous, BID insulin lispro, 2-10 Units, subcutaneous, Q6H metroNIDAZOLE, 500 mg, intravenous, Q12H pantoprazole, 40 mg, intravenous, Q24H JOSE sodium chloride, 10 mL, intravenous, Q8H AND sodium chloride, 10 mL, intravenous, PRN AND sodium chloride, 20 mL, intravenous, PRN Continuous Infusions: dextrose 5 % in water, 100 mL/hr fentaNYL, 25-200 mcg/hr, Last Rate: 100 mcg/hr (03/12/25906) heparin, 300-3,500 Units/hr, Last Rate: 1,050 Units/hr (03/12/25509) sodium chloride 0.9 %, 20 mL/hr, Last Rate: 50 mL/hr (03/11/25522) sodium chloride 0.9 %, 3 mL/hr, Last Rate: 3 mL/hr (03/12/25509) sodium chloride 0.9 %, 20 mL/hr PRN Meds: calcium gluconate OR calcium gluconate OR calcium gluconate dextrose dextrose 5 % in water dextrose 50 % in water (D50W) glucagon (human recombinant) heparin (porcine) hydrALAZINE magnesium sulfate OR magnesium sulfate ondansetron potassium chloride OR potassium chloride potassium chloride in water OR potassium chloride in water sodium phosphate IV OR sodium phosphate IV - central line OR sod phos di, mono-K phos mono sodium chloride sodium chloride sodium chloride AND sodium chloride AND sodium chloride sodium chloride 0.9 % sodium chloride 0.9 % Results Review Renal Chemistry Results from last 7 days Lab Units 03/12/25 0804 03/12/25 0205 03/11/25 0210 03/11/25 0037 03/10/25 1747 03/10/25 1316 03/10/25 0331 03/09/25 1833 03/09/25 1041 03/09/25 0601 03/09/25 0325 SODIUM mmol/L -- 144 140 -- -- -- 142 -- 139 -- 140 POTASSIUM mmol/L 3.7 3.1* 3.9 4.0 4.1 < > 4.5 < > 4.9 < > 5.0 CHLORIDE mmol/L -- 109 109 -- -- -- 108 -- 109 -- 109 CO2 mmol/L -- 26 23 -- -- -- 26 -- 23 -- 25 BUN mg/dL -- 22 29* -- -- -- 31* -- 30* -- 30* CREATININE mg/dL -- 0.81 0.99 -- -- -- 1.13* -- 1.09* -- 1.25* CALCIUM mg/dL -- 7.0* 7.4* -- -- -- 7.9* -- 7.8* -- 8.1* MAGNESIUM mg/dL -- 1.8 2.1 -- -- -- 2.2 -- 2.4 -- 1.9 PHOSPHORUS mg/dL -- 2.4 2.8 -- -- -- 3.7 -- 3.9 -- 3.8 < > = values in this interval not displayed. Hepatic: Lab Results Component Value Date AST 33 03/09/2025 AST 108 (H) 03/08/2025 AST 21 02/24/2025 ALT 23 03/09/2025 ALT 33 (H) 03/08/2025 ALT 15 02/24/2025 ALKPHOS 38 (L) 03/09/2025 ALKPHOS 37 (L) 03/08/2025 ALKPHOS 105 02/24/2025 BNP Lab Results Component Value Date BNP 22 03/08/2025 BNP 34 03/06/2025 BNP 61 02/24/2025 CBC Results from last 7 days Lab Units 03/12/25 0205 03/11/25 1640 03/11/25 0210 03/10/25 2030 03/10/25 1316 03/10/25 0331 03/09/25 2108 03/09/25 1041 03/09/25 033 WBC x10E9/L 5.9 -- 8.3 -- -- 10.3 -- 12.3* 15.5* HEMOGLOBIN g/dL 10.2* 10.2* 10.1* 10.4* 10.7* 11.3* < > 11.6* 12.7 HEMATOCRIT % 31.2* 31.2* 30.2* 32.0* 33.1* 34.5* < > 35.4 39.3 PLATELETS X10E9/L 92* -- 89* -- -- 117* -- 140* 155 < > = values in this interval not displayed. Results from last 7 days Lab Units 03/12/25 1401 03/12/25 0929 03/12/25 0924 03/12/25 0311 03/12/25 0205 BEDSIDE GLUCOSE mg/dL 128* 116* <20* 86 -- GLUCOSE mg/dL -- -- -- -- 86 Urine Studies: Lab Results Component Value Date COLOR Yellow 03/06/2025 TURBIDITY Hazy (A) 03/06/2025 SPECIFICGRA 1.023 03/06/2025 NITRITE Negative 03/06/2025 PHURINE 6.0 03/06/2025 LEUKOCYTE Small (A) 03/06/2025 PROTEIN 50 mg/dL (A) 03/06/2025 KETONES 20 mg/dL (A) 03/06/2025 UROBILINOGEN <1.1 eu/dL 03/06/2025 BLOODHGB Large (A) 03/06/2025 Lab Results Component Value Date UPROCRTRAT 0.25 (H) 03/06/2025 Urine Sodium: No components found for: CRYSTAL Urine Potassium: No results found for: KUR Urine Chloride: No results found for: CLUR Urine Osmolarity: No components found for: OSMOU Urine Creatinine: No results found for: LABCREA Urine Eosinophils: No components found for: UEOS Urine Protein: No components found for: TPU Immunology Profile No results found for: PROTELECTR , SEDRATE , CRP , RF , ANASCREEN , ANTIDSDNA , C3 , C4 , ANCA , MYELOP , PROTEINASE3 , ANTIGLOMERU No results found for: HAV , HEPAIGM , HEPBIGM , HEPBCAB , HBEAG , HEPCAB SP: No results found for: SP C3:No results found for: C3 C4:No results found for: C4 MPO ANCA: No results found for: MPO PR3 ANCA: No components found for: PR3 hepatitis serologies ANTIGBM:No components found for: GBMABIGG HEPATITIS B SURFACE AG: No results found for: HEPBSAG HEPATITIS C AB: No results found for: HEPCAB Electrophoresis: SPEP:No results found for: PROT , LABALPH , LABBETA , PATH UPEP:No results found for: LABPE Anemia Profile Lab Results Component Value Date WBC 5.9 03/12/2025 WBC 8.3 03/11/2025 HGB 10.2 (L) 03/12/2025 HGB 10.2 (L) 03/11/2025 HCT 31.2 (L) 03/12/2025 HCT 31.2 (L) 03/11/2025 PLT 92 (L) 03/12/2025 PLT 89 (L) 03/11/2025 Lab Results Component Value Date IRON 12 (L) 02/26/2025 TIBC 321 02/26/2025 FERRITIN 78 02/26/2025 Bone Mineral Profile Lab Results Component Value Date CALCIUM 7.0 (L) 03/12/2025 Results from last 7 days Lab Units 03/12/25 0205 03/11/25 0210 03/10/25 0331 MAGNESIUM mg/dL 1.8 2.1 2.2 Echocardiogram: Echo complete W/O contrast Result Date: 02/26/2025 Left Ventricle: Left ventricle is small. Systolic function is normal with an ejection fraction of 60-65%. No segmental wall motion abnormalities. Grade I diastolic dysfunction (impaired relaxation) is present. Lateral E' is 11.70 cm/s. Medial E' is 7.94 cm/s. Right Ventricle: Right ventricular sizeappears normal. The right ventricular basal diameter is 22.0 mm. Systolic function is normal. Aortic Valve: There is trace to mild regurgitation. There is no evidence of aortic valve stenosis. Thank you for the consultation. Please do not hesitate to contact us for any further questions/concerns. We will continue to follow along with you. * Nuvia Flannery, STUDENT TRUCK DRIVER-ASSISTANT DIRECTOR OF [employer] LIFE - 03/12/2025 9:39 AM EDT Images from the original note were not included. Division of Infectious Diseases Progress note Academic Team Please contact us via Cupple chat. After hours, call [phone] Patient name: Caren Suarez Patient Today's Date and Time: 03/12/2025, 9:39 AM Admission Date: 02/25/2025 Primary Care Physician: Riya Diego MD Impression and Recommendations: Leukocytosis Large bowel obstruction Metastatic colorectal cancer Peritonitis S/P paracentesis 02/28/2025 - nucleated cells are elevated at 1900 with neutrophil predominance (60%) Peritoneal fluid culture is negative to date Abdominal soft tissue mass bx path report +mucinous adenocarcinoma c/w colorectal origin Status post exp lap, total colectomy, bilateral salpingo-oopherectomy, vac placemement 03/07 Status post creation of ileostomy and abdominal closure Wbc has normalized On ceftriaxone and metronidazole through today Will follow General surgery following Intra operative cardiac arrest Acute respiratory failure Patient is extubated Vent management per critical care Urinary retention Positive urine culture Patient was retaining urine and camara place last week. Urine culture +enterococcus. Patient was asymptomatic No fever or leukocytosis. Low suspicion for uti at this time Monitor off treatment TASHA Renal mass concerning for RCC Right hydronephrosis Positive urine culture Urine culture +VRE. No urinary symptoms when culture obtained. No systemic signs of infection at this time. No indication for treatment. Urology and nephrology following Acute PE, with R heart strain Multiple DVT On heparin Subjective Interval History: Patient seen and examined at bedside. Patient has been extubated. No fever. No distress Objective Physical Examination : BP 96/59 Pulse 120 Temp 37.5 ??C (99.5 ??F) Resp 19 Ht 157.5 cm (5' 2.01 ) Wt 89.5 kg (197 lb 5 oz) SpO2 97% BMI 36.08 kg/m?? Temperature Range: Temp: 37.5 ??C (99.5 ??F) Temp Av.1 ??C (98.7 ??F) Min: 36.7 ??C (98.1 ??F)Max: 37.5 ??C (99.5 ??F) General Appearance:lethargic and in no apparent distress Eyes: Sclera anicteric; conjunctivae pink Neck: Supple, without lymphadenopathy. Pulmonary/Chest: Clear to auscultation, without wheezes, rales, or rhonchi. Left sided chest tube in place Cardiovascular: Regular rate and rhythm without murmurs, rubs, or gallops. Abdomen: distended. Soft. Vac in place Extremities: No cyanosis, clubbing, , or effusions. +BLE edema Neurologic: Bulk and tone are normal. No atrophy is noted. Skin: No rash or lesions. Laboratory data: I have independently reviewed the following labs: Results from last 7 days Lab Units 03/12/25 0205 03/11/25 1640 03/11/25 0210 03/10/25 1316 03/10/25 0331 03/09/25 1041 03/09/25 0332 WBC x10E9/L 5.9 -- 8.3 -- 10.3 < > 15.5* HEMOGLOBIN g/dL 10.2* 10.2* 10.1* < > 11.3* < > 12.7 HEMATOCRIT % 31.2* 31.2* 30.2* < > 34.5* < > 39.3 MCV fL 81 -- 80 -- 80 < > 81 PLATELETS X10E9/L 92* -- 89* -- 117* < > 155 EOS ABS MAN 10*3/uL -- -- -- -- -- -- 0.0 BASOS ABS MAN 10*3/uL -- -- -- -- -- -- 0.0 < > = values in this interval not displayed. Results from last 7 days Lab Units 03/12/25 0804 03/12/25 0205 03/11/25 0210 03/10/25 1316 03/10/25 0331 03/09/25 1833 03/09/25 1041 03/08/25 0043 03/08/25 0032 SODIUM mmol/L -- 144 140 -- 142 -- 139 < > 138 PORTABLE SODIUM -- -- -- -- -- -- -- < > -- POTASSIUM mmol/L 3.7 3.1* 3.9 < > 4.5 < > 4.9 < > 3.5 POC POTASSIUM -- -- -- -- -- -- -- < > -- CHLORIDE mmol/L -- 109 109 -- 108 -- 109 < > 105 CO2 mmol/L -- 26 23 -- 26 -- 23 < > 19* BUN mg/dL -- 22 29* -- 31* -- 30* < > 29* CREATININE mg/dL -- 0.81 0.99 -- 1.13* -- 1.09* < > 1.18* CALCIUM mg/dL -- 7.0* 7.4* -- 7.9* -- 7.8* < > 8.3* ALBUMIN g/dL -- -- -- -- -- -- 2.5* -- 1.9* ALK PHOS U/L -- -- -- -- -- -- 38* -- 37* ALT U/L -- -- -- -- -- -- 23 -- 33* AST U/L -- -- -- -- -- -- 33 -- 108* < > = values in this interval not displayed. Results from last 7 days Lab Units 03/06/25 1241 COLOR UA Yellow TURBIDITY Hazy* SPECIFIC GRAVITY, URINE 1.023 NITRITE UA Negative PH URINE 6.0 LEUKOCYTE ESTERASE Small* PROTEIN 50 mg/dL* KETONES (URINE) 20 mg/dL* UROBILINOGEN <1.1 eu/dL BLOOD Large* R. B. CELLS 197* WBC UA 25* Echo complete W/O contrast Result Date: 02/26/2025 Left Ventricle: Left ventricle is small. Systolic function is normal with an ejection fraction of 60-65%. No segmental wall motion abnormalities. Grade I diastolic dysfunction (impaired relaxation) is present. Lateral E' is 11.70 cm/s. Medial E' is 7.94 cm/s. Right Ventricle: Right ventricular sizeappears normal. The right ventricular basal diameter is 22.0 mm. Systolic function is normal. Aortic Valve: There is trace to mild regurgitation. There is no evidence of aortic valve stenosis. Imaging Studies: Procedure Component Value Units Date/Time X-ray chest 1 view [[id number]] Collected: 03/12/25440 Order Status: Completed Updated: 03/12/25444 Narrative: Clinical history: Intubated. Comparisons: 03/09/2025 through 03/11/2025. Findings: AP portable supine chest radiograph obtained. Endotracheal tube terminates 5 cm above thelevel of the venecia. Left-sided chest tube unchanged with sidehole likely just outside of the levelof the pleural space similar to previous 3 exams. There is no pneumothorax. There is bibasilar subsegmental atelectasis. Right IJ central venous catheter/sheath unchanged and confluence of innominate veins. PH probe terminates in distal esophagus. Nasogastric tube terminates off film in left upper abdomen. Pleural effusion. Continued decrease in volume of left lateral chest wall subcutaneous emphysema. IMPRESSION: 1. No pneumothorax. 2. Satisfactory ET tube position. Finalized by Arsalan Lott MD on 03/12/2025 4:44 AM I have personally reviewed this study. Cultures: Microbiology Results Procedure Component Value Units Date/Time Urine Culture Urine, Indwelling Catheter [[id number]] (Abnormal) (Susceptibility) Collected: 03/07/25 112 Specimen: Urine, Indwelling Catheter Updated: 03/10/251126 CULTURE RESULTS 50,000-100,000 CFU/mL Vancomycin resistant Enterococcus species Susceptibility Vancomycin resistant Enterococcus species Not Specified Ampicillin >=32.0 Resistant Daptomycin 2.5 Susceptible (dose dependent) Levofloxacin >=8.0 Resistant Linezolid 2.0 Susceptible Nitrofurantoin 64 Intermediate Vancomycin >=32.0 Resistant Medications: cefTRIAXone (ROCEPHIN) IV, 2,000 mg, intravenous, Q24H chlorhexidine, 15 mL, mouth/throat, BID folic acid, 1 mg, nasogastric, Daily furosemide, 40 mg, intravenous, BID insulin lispro, 2-10 Units, subcutaneous, Q6H metroNIDAZOLE, 500 mg, intravenous, Q12H pantoprazole, 40 mg, intravenous, Q24H JOSE sodium chloride, 10 mL, intravenous, Q8H AND sodium chloride, 10 mL, intravenous, PRN AND sodium chloride, 20 mL, intravenous, PRN Thank you for allowing us to participate in the care of this patient. Please call with questions. - NUVIA FLANNERY [facility] 03/12/25 9:39 AM Nuvia Flannery [facility] 03/09/25 1449 Nuvia Flannery [facility] 03/10/25 1331 Nuvia Flannery [facility] 03/11/25 1323 Nuvia Flannery [facility] 03/12/25 1356 * OK Dang - 03/12/2025 7:19 AM EDT Images from the original note were not included. Colorectal Surgery Daily Progress Note Patient Name: Caren Suarez Admit Date: 02/25/2025 Length of Stay: 15 Days Admitting Physician: Deena Branch MD Subjective: Patient is postoperative day 5 from exploratory laparotomy, total colectomy, left in discontinuity,and BSO and post operative day 3 from abdominal washout, end ileostomy creation, and abdominal closure. CXR this morning shows resolution of pneumothorax. She was extubated, and NG feeds are on hold due to this. Reponding to commands. Not speaking much. No bleeding. + stoma output Objective: Vitals: 03/12/25 0900 BP: Pulse: 115 Resp: (!) 8 Temp: 37.5 ??C (99.5 ??F) SpO2: 97% Temp: [36.8 ??C (98.2 ??F)-37.5 ??C (99.5 ??F)] 37.5 ??C (99.5 ??F) Pulse: [76-128] 115 Resp: [8-21] 8 Arterial Line BP: (108-183)/(43-73) 134/50 FiO2 (%): [40 %] 40 % SpO2: [95 %-99 %] 97 % O2 Device: Nasal cannula O2 Flow Rate (L/min): [5 L/min] 5 L/min Allergies Allergen Reactions Penicillin Intake/Output last 3 shifts: I/O last 3 completed shifts: In: 2096.5 [I.V.:1540.6; NG/GT:169; IV Piggyback:386.8] Out: 5380 [Urine:5200; Emesis/NG output:100; Drains:50; Chest Tube:30] Intake/Output this shift: I/O this shift: In: 30 [NG/GT:30] Out: - Dietary Orders (From admission, onward) Start Ordered 03/11/25 1534 Tube feeding No tray-Continuous Tube feeding No Tray-Continuous; Nasogastric or Oral gastric feeding tube; Standard 1.5 kcal; 10; 10 Continuous Comments: Osmolite 1.5 References: Formulary Card Question Answer Comment Diet Type: Tube feeding No Tray-Continuous Tube Type: Nasogastric or Oral gastric feeding tube Tube Feeding Formula: Standard 1.5 kcal Tube Feeding Start Rate (mL/hour): 10 Goal Rate (mL/hour): 03/11/25 1534 Physical Exam Physical Exam Constitutional: Interventions: Nasal cannula in place. Comments: +NG Cardiovascular: Rate and Rhythm: Regular rhythm. Tachycardia present. Pulmonary: Effort: Pulmonary effort is normal. Abdominal: General: Bowel sounds are normal. Comments: Wound vac in place. Stoma pink, brown liquid stool noted in ostomy bag Neurological: Mental Status: She is alert. 24 hour urine output: 1005 mL 24 hour wound VAC output: 75 mL 24 hour NG tube output: 150 mL Laboratory Data: Lab Results Component Value Date WBC 5.9 03/12/2025 HGB 10.2 (L) 03/12/2025 HCT 31.2 (L) 03/12/2025 MCV 81 03/12/2025 PLT 92 (L) 03/12/2025 Lab Results Component Value Date GLU 116 (H) 03/12/2025 CALCIUM 7.0 (L) 03/12/2025 K 3.7 03/12/2025 CO2 26 03/12/2025 CL 109 03/12/2025 BUN 22 03/12/2025 CREATININE 0.81 03/12/2025 No results found for: AMYLASE No results found for: LIPASE Lab Results Component Value Date ALT 23 03/09/2025 AST 33 03/09/2025 ALKPHOS 38 (L) 03/09/2025 Component Latest Ref Rng 03/12/2025 Protime 9.8 - 13.2 sec 13.5 (H) Inr 0.9 - 1.2 1.2 aPTT 26 - 37 sec 48 (H) Heparin anti-xa, unfractionated 0.30 - 0.70 IU/mL 0.28 (L) Legend: (H) High (L) Low cefTRIAXone (ROCEPHIN) IV, 2,000 mg, intravenous, Q24H chlorhexidine, 15 mL, mouth/throat, BID folic acid, 1 mg, nasogastric, Daily furosemide, 40 mg, intravenous, BID insulin lispro, 2-10 Units, subcutaneous, Q6H metroNIDAZOLE, 500 mg, intravenous, Q12H pantoprazole, 40 mg, intravenous, Q24H JOSE sodium chloride, 10 mL, intravenous, Q8H AND sodium chloride, 10 mL, intravenous, PRN AND sodium chloride, 20 mL, intravenous, PRN calcium gluconate OR calcium gluconate OR calcium gluconate dextrose dextrose 5 % in water dextrose 50 % in water (D50W) glucagon (human recombinant) heparin (porcine) hydrALAZINE magnesium sulfate OR magnesium sulfate ondansetron potassium chloride OR potassium chloride potassium chloride in water OR potassium chloride in water sodium phosphate IV OR sodium phosphate IV - central line OR sod phos di, mono-K phos mono sodium chloride sodium chloride sodium chloride AND sodium chloride AND sodium chloride sodium chloride 0.9 % sodium chloride 0.9 % Imaging: X-ray chest 1 view Clinical history: Intubated. Comparisons: 03/09/2025 through 03/11/2025. Findings: AP portable supine chest radiograph obtained. Endotracheal tube terminates 5 cm above thelevel of the venecia. Left-sided chest tube unchanged with sidehole likely just outside of the levelof the pleural space similar to previous 3 exams. There is no pneumothorax. There is bibasilar subsegmental atelectasis. Right IJ central venous catheter/sheath unchanged and confluence of innominate veins. PH probe terminates in distal esophagus. Nasogastric tube terminates off film in left upper abdomen. Pleural effusion. Continued decrease in volume of left lateral chest wall subcutaneous emphysema. IMPRESSION: 1. No pneumothorax. 2. Satisfactory ET tube position. Finalized by Arsalan Lott MD on 03/12/2025 4:44 AM Assessment: Caren Suarez is a 69 y.o. 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 Patient's surgery was complicated by obstructive shock and cardiac collapse resulting in need for ACLS. ROSC was obtained and patient was transferred to [facility] postoperatively. Patient subsequently went for 2nd loop laparotomy, fascial closure, ileostomy creation on 03/09/2025. 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 2.2 cm right interpolar renal mass concerning for RCC Right-sided PE without heart strain Left pneumothorax, resolved Multiple DVT Pulmonary nodules likely metastasis Obstructive shock from PE now off vasopressors Status post cardiac arrest Acute blood loss anemia, Hgb currently stable Coagulopathy, improving Thrombocytopenia, stable Metabolic acidosis Acute respiratory failure requiring mechanical ventilation VRE UTI, no abx indicated for now per ID Peritonitis diagnosed on paracentesis 02/28/25, with complete treatment, now on empiric antibiotics Plan: Recommend bedside swallow, and clear liquids if passes Suggest continuation of tube feeds until adequate po intake Ok for heparin drip Antibiotics per ID Wound care, wound vac per ET Monitor pneumothorax, chest tube management per critical care Appreciate nephrology recommendations, with note to stop IVF and start lasix 03/11. Appreciate oncology recommendations Appreciate palliative medicine assistance with goals of care in regards to her cancer Appreciate remainder of care per critical care team Monitor thrombocytopenia and transfuse plts if active bleeding Any Bergman PA-C Colorectal Surgery 6a - 6p Pager: [phone] 6p - 6a Pager: [phone] [place] Dang 03/12/25 1147 * Sarath Hoover MD - 03/12/2025 6:15 AM EDT Images from the original note were not included. SICU Academic Critical Care PROGRESS NOTE Admission Date: 02/25/2025 5:24 PM Attending Physician: Deena Branch MD Date of 1955 Hospital Day: 15 day(s) Caren Suarez is a 69 y.o. female with past medical history of DVT, HTN, who was admitted to [facility] after a CT A/P at an OSH demonstrated large partially solid cystic lesions. At that time she was found to have multiple DVTs and PEs. She was transferred to [facility] for a higher level of care. On arrival, her DVTs were being treated with heparin. Colorectal surgery was consulted on 03/07 for possible bowel obstruction. At that time a CT A/P demonstrated colonic dilation with transition at the sigmoid junction. There is concern for acute malignant obstruction for known mucinous adenocarcinoma with colorectal origin. After stabilization of the patient's INR with [facility] on 03/07, the decisionwas made to take her to the operating room as a joint case between Colorectal on [employer] Specialist/Onc. At the beginning of the case, patient initially desaturated prior to incision. It was believed thatthis was due to the significant malignant ascites compressing the lungs. Decision was made to proceed with the case, and after decompression the patient's respiratory status significantly improved. The patient later went into cardiac arrest within the operating room and a code was initiated. Compressions were begun, epi was administered. After 2 rounds of compressions ROSC was obtained. ABThera was placed and the patient was transferred to the surgical ICU intubated and sedated. Overnight Events: NAEO. PEEP is down to 8, FiO2 40%. Pt following commands Physical Exam: Vital Signs: BP 96/59 Pulse 95 Temp 37.2 ??C (99 ??F) Resp 20 Ht 157.5 cm (5' 2.01 ) Wt 89.5 kg (197 lb 5 oz) SpO2 97% BMI 36.08 kg/m?? General: Sedated HENT: Head atraumatic, normocephalic, external ears and nose are normal Eyes: Conjunctivae clear, non-icteric, EOMI Pulmonary: Intubated and ventilated Cardiovascular: Regular rate and rhythm, radial pulses 2+, non-edematous x4 extremities Abdomen: Wound vac in place, ileostomy pouch in place with small amount of bowel sweat Musculoskeletal: Range of motion grossly normal x4 extremities, no deformity x4 extremities Neurological: sedated Skin: Warm, dry, without jaundice Intake/Output Summary (Last 24 hours) at 03/12/2025 0615 Last data filed at 03/12/2025 0600 Gross per 24 hour Intake 1055.09 ml Output 4975 ml Net -3919.91 ml O2 Device: Endotracheal tube Ventilator Settings Vent Mode: PRVC-AC FiO2 (%): 40 % Resp Rate (Set): 20 Avea Vt (Set, L): 0.4 Liter PEEP/CPAP (cm H2O): 8 cm H20 Insp Time (sec): 0.92 sec Trigger Sensitivity Flow (L/min): 1 L/min Trigger Sensitivity Pressure (cm H2O): 3 cm H2O Humidification: Heat and moisture exchanger Invasive Hemodynamic [place] Results from last 3 days Lab Units 03/12/25 0205 03/11/25 0210 03/11/25 0037 03/10/25 1747 03/10/25 1316 03/10/25 0331 03/09/25 2255 03/09/25 1833 03/09/25 1041 BUN mg/dL 22 29* -- -- -- 31* -- -- 30* CREATININE mg/dL 0.81 0.99 -- -- -- 1.13* -- -- 1.09* POTASSIUM mmol/L 3.1* 3.9 4.0 4.1 4.2 4.5 4.5 4.5 4.9 CO2 mmol/L 26 23 -- -- -- 26 -- -- 23 CHLORIDE mmol/L 109 109 -- -- -- 108 -- -- 109 MAGNESIUM mg/dL 1.8 2.1 -- -- -- 2.2 -- -- 2.4 AST U/L -- -- -- -- -- -- -- -- 33 ALT U/L -- -- -- -- -- -- -- -- 23 ALK PHOS U/L -- -- -- -- -- -- -- -- 38* Results from last 3 days Lab Units 03/12/2520403/11/2520903/10/25 0331 INR 1.2 1.2 1.4* PROTIME sec 13.5* 13.4* 16.3* Results from last 3 days Lab Units 03/12/25 0205 03/11/25 1640 03/11/25 0210 03/10/25 2030 03/10/25 1316 03/10/25 0331 03/09/25 2108 03/09/25 1041 WBC x10E9/L 5.9 -- 8.3 -- -- 10.3 -- 12.3* HEMOGLOBIN g/dL 10.2* 10.2* 10.1* 10.4* 10.7* 11.3* 11.4* 11.6* HEMATOCRIT % 31.2* 31.2* 30.2* 32.0* 33.1* 34.5* 34.3* 35.4 PLATELETS X10E9/L 92* -- 89* -- -- 117* -- 140* MCV fL 81 -- 80 -- -- 80 -- 80 MCH pg 26.4* -- 26.8* -- -- 26.2* -- 26.2* MCHC g/dL 32.6 -- 33.4 -- -- 32.6 -- 32.7 RDW % 26.7* -- 26.6* -- -- 24.1* -- 23.4* MONO ABS MAN 10*3/uL -- -- -- -- -- -- -- 0.2 Microbiology Results Procedure Component Value Units Date/Time Urine Culture Urine, Indwelling Catheter [[id number]] (Abnormal) (Susceptibility) Collected: 03/07/251121 Specimen: Urine, Indwelling Catheter Updated: 03/10/251126 CULTURE RESULTS 50,000-100,000 CFU/mL Vancomycin resistant Enterococcus species Susceptibility Vancomycin resistant Enterococcus species Not Specified Ampicillin >=32.0 Resistant Daptomycin 2.5 Susceptible (dose dependent) Levofloxacin >=8.0 Resistant Linezolid 2.0 Susceptible Nitrofurantoin 64 Intermediate Vancomycin >=32.0 Resistant Glucose Results from last 7 days Lab Units 03/12/25 0311 03/12/25 0205 03/11/25 20503/11/25 1645 03/11/25 1059 03/11/25 0320 03/11/25 0210 03/10/25 2032 03/10/25 1559 03/10/25 1000 03/10/25 0830 03/10/25 0337 BEDSIDE GLUCOSE mg/dL 86 -- 74 73 81 99 -- 114* 117* 117* 128* 82 GLUCOSE mg/dL -- 86 -- -- -- -- 106* -- -- -- -- -- Lines/Drains CVC Triple Lumen 03/07/25 Right Internal Jugular (Active) Precautions Standard precautions;Hand hygiene;Gloves 03/08/25 0300 Lumen 1 Proximal 03/08/25 0300 Lumen 1 Status Blood return noted;Flushed;Infusing 03/08/25 0300 Lumen 2 Medial 03/08/25 0300 Lumen 2 Status Blood return noted;Flushed;Infusing 03/08/25 0300 Lumen 3 Distal 03/08/25 0300 Lumen 3 Status Blood return noted;Flushed;Infusing 03/08/25 0300 Site Assessment Clean;Dry;Intact 03/08/25 0000 Dressing Type Transparent;Occlusive 03/08/25 030 Dressing Status Clean;Dry;Intact 03/08/25 0300 Dressing Intervention Initial dressing 03/08/25 0300 Line Necessity Peripherally incompatible solution 03/08/25 030 Line Necessity Reviewed With cc 03/08/25 0300 Patient Tolerance of Line Care Tolerated well 03/08/25 0300 Central Line Dressing Change Due (Non-Gauze) 03/15/25 03/08/25 0000 Peripheral IV 03/05/25 Anterior;Left Forearm (Active) Line Status Infusing;Flushed 03/08/25 0300 Site Assessment Clean;Intact;Dry 03/08/25 0300 Dressing Type Transparent;Occlusive 03/08/25 0300 Dressing Status Intact;Clean;Dry 03/08/25 0300 Dressing Intervention Initial dressing 03/08/25 0300 Dressing Change Due (Non-Gauze) 03/12/25 03/05/25 0649 Peripheral IV 03/06/25 Anterior;Right Forearm (Active) Line Status Infusing;Flushed 03/08/25 0300 Site Assessment Clean;Dry;Intact 03/08/25 0300 Dressing Type Transparent;Occlusive 03/08/25 0300 Dressing Status Intact;Dry;Clean 03/08/25 0300 Dressing Intervention Initial dressing 03/08/25 0300 Dressing Change Due (Non-Gauze) 03/13/25 03/06/25 2105 Chest Tube 03/08/25 Left (Active) Function -20 cm H2O 03/08/25 0300 Air Leak No 03/08/25 0300 (1) Drainage Description Serosanguineous 03/08/25 0300 (1) Dressing Type Gauze;Occlusive 03/08/25 0300 (1) Dressing Status Clean;Dry;Intact 03/08/25 0300 (1) Dressing Intervention Initial dressing 03/08/25 0300 (1) Site Assessment Clean;Intact;Dry 03/08/25 0300 Output (mL) 20 mL 03/08/25 0600 Negative Pressure Wound Therapy 03/07/25 Surgical Quadrant;Mid Abdomen (Active) Assessed: Compressed 03/08/25 0300 Cycle Continuous 03/08/25 0300 Target Pressure (mmHg) 125 03/08/25 0300 Dressing Status Clean;Dry;Intact 03/08/25 0300 Dressing Changed New 03/08/25 0000 Output (mL) 200 mL 03/08/25 0600 NG/OG Tube 03/08/25 Left nostril (Active) Placement Verification External length measured 03/08/25 0300 Status Suction-low intermittent 03/08/25 0300 Tube Site Care Completed 03/08/25 0300 Secured at (cm) 55 cm 03/08/25 0300 Securement Method Securing device (Describe) 03/08/25 0300 Dressing Status/Interventions Clean;Dry;Intact 03/08/25 0300 Drainage Appearance Bile 03/08/25 0300 Urinary Catheter 03/06/25 Single lumen (Active) Catheter Status Patent 03/08/25 0300 Site Assessment Clean;Skin intact 03/08/25 0300 Collection Container Standard drainage bag/container 03/08/25 0300 Securement Method Right 03/08/25 0300 Tamper Evident Seal Intact Yes 03/08/25 0300 Indication for Continuation Uro/jewel bearing turner surgical considerations 03/08/25 0000 Urine Color Yellow/straw 03/08/25 0300 Urine Appearance Clear 03/08/25 0300 Output (mL) 50 mL 03/08/25 0700 ETT 03/07/25 Cuffed;Inflated Oral (Active) Secured at (cm) 22 cm 03/08/25 030 Measured from Lips 03/08/25 030 Secured Location Center 03/08/25 0200 Secured by Commercial tube du 03/08/25 030 Cuff Pressure (cm H2O) 30 cm H2O 03/08/25 0200 Arterial Line 03/07/25 Left Radial (Active) Line Status Infusing;Blood return noted;Pulsatile blood flow;Flushed 03/08/25 0300 Line Interventions Zeroed and calibrated;Leveled;Connections checked and tightened;Pressure bag maintained 03/08/25 030 Waveform Appropriate 03/08/25 030 Site Assessment Clean;Intact;Dry 03/08/25 0300 Dressing Type Transparent;Occlusive 03/08/25 0300 Dressing Status Clean;Dry;Intact 03/08/25 0300 Dressing Intervention Initial dressing 03/08/25 0300 Color/Movement/Sensation Capillary refill less than 3 sec 03/08/25 0300 Patient Tolerance of Line Care Tolerated well 03/08/25 0300 Line Necessity Invasive hemodynamic monitoring 03/08/25 030 Line Necessity Reviewed With cc 03/08/25 030 Dressing Change Due (Non-Gauze) 03/15/25 03/08/25 0000 ACTIVE PROBLEM LIST: S/p cardiac arrest Malignant bowel obstruction s/p total colectomy and bilateral salpingo-oophorectomy Pulmonary embolism Multiple DVT Blood loss anemia Acute Kidney Injury w/ concern for acute tubular necrosis Malignant Colorectal Cancer Bacterial Peritonitis Ovarian Cystic Lesion ASSESSMENT/PLAN: Caren Suarez is a 69 y.o. female who is s/p total colectomy and bilateral salpingo-oophorectomy for malignant bowel obstruction for known mucinous adenocarcinoma. 1. Neuro S/p cardiac arrest CT Head without contrast: No acute intracranial process. Hospital Meds: Sedation: fentanyl RASS Goal: -1 to 0 Analgesia: fentanyl Other: n/a Home Meds: N/a 2. Pulmonary Pulmonary embolism, multiple DVT - CTA Chest 03/08/25:Slightly decreased burden of right sided pulmonary emboli. No new emboli. Left chest tube, moderate left pneumothorax, significant subcutaneous emphysema, mild dependent edema and consolidation left lung. Vascular venous duplex 02/24/25 Acute femoropopliteal deep vein thrombosis, acute deep tibioperoneal vein thrombosis, acute deep calf muscle vein thrombosis - Vascular Surgery is consulted - Restarted on heparin Left chest tube, suction at 40, intermittent air leak - 50 cc output 03/12/25 CXR: No pneumothorax. Satisfactory ET tube position. - Pt doing well from pulmonary standpoint. Can likely extubate today 03/11/25 CXR: Decreasing small left pneumothorax. Otherwise, stable chest. 03/10/25 CXR: Pneumothorax remains with a indwelling left chest tube. Pneumothorax is larger than theprior study currently approximately 17 mm at the left upper lobe. The amount of gas within the leftchest wall is increasing. 03/09/25 CXR: There is a 1 cm left apical pneumothorax. Sidehole of the left-sided chest tube is outside of the pleural space in the left lateral chest wall. Improved aeration of the left lung. 03/08/25 CXR: Left chest tube has been pulled back, with tip remaining in the hemithorax however sideport outside of the pleural space in the chest wall Breathing Support: ET tube, PRVC-AC Settings: FiO2 0.4, respiratory rate 20, Tidal volume 400 mL, PEEP 8 SpO2: 96% Continuous pulse oximetry Hospital Meds: None Home Meds: None 3. Cardiovascular S/p cardiac arrest, shock Hemodynamics: NSR Normotensive Pressors: None Goal MAP >65 Continuous cardiac monitoring Hospital Meds: Heparin SQH Home Meds: Unknown PMH: Hypertension, previous DVTs PSH: None known Code Status: Full 4. GI Malignant bowel obstruction s/p total colectomy and bilateral salpingo-oophorectomy Status post total colectomy, left in discontinuity, ABThera in place 03/07/25 Status post 2nd look and end ileostomy creation, wound vac in place 03/09/25 Diet: NPO, NG output 50cc Bowel Function: Await return of bowel function Hospital Meds: N/a Home Meds: None known 5. Renal/Genitourinary TASHA w/ concern for acute tubular necrosis - nephrology consult 03/09/25 - Nephrology over management of diuresis, appreciate assistance in care Metabolic acidosis, resolved Lab Results Component Value Date SODIUM 144 03/12/2025 SODIUM 140 03/11/2025 SODIUM 142 03/10/2025 CL 109 03/12/2025 CL 109 03/11/2025 CL 108 03/10/2025 K 3.1 (L) 03/12/2025 K 3.9 03/11/2025 K 4.0 03/11/2025 CO2 26 03/12/2025 CO2 23 03/11/2025 CO2 26 03/10/2025 Electrolytes: Lab Results Component Value Date BUN 22 03/12/2025 BUN 29 (H) 03/11/2025 BUN 31 (H) 03/10/2025 CREATININE 0.81 03/12/2025 CREATININE 0.99 03/11/2025 CREATININE 1.13 (H) 03/10/2025 CALCIUM 7.0 (L) 03/12/2025 CALCIUM 7.4 (L) 03/11/2025 CALCIUM 7.9 (L) 03/10/2025 MG 1.8 03/12/2025 MG 2.1 03/11/2025 MG 2.2 03/10/2025 PHOSPHORUS 2.4 03/12/2025 PHOSPHORUS 2.8 03/11/2025 PHOSPHORUS 3.7 03/10/2025 Will replace electrolytes PRN per ICU protocol Fluid Balance: No maintenance IV fluids IV fluids/24H: 1.055 L UOP/24 H: 4.875 L Net Fluid/24H: -3.9 L Net Fluid Since admission: +5.731 L Strict monitoring of Ins and Outs Hospital Meds: none Home Meds: None known 6. Heme Blood loss anemia Labs: Lab Results Component Value Date HGB 10.2 (L) 03/12/2025 HGB 10.2 (L) 03/11/2025 HGB 10.1 (L) 03/11/2025 PLT 92 (L) 03/12/2025 PLT 89 (L) 03/11/2025 PLT 117 (L) 03/10/2025 Lab Results Component Value Date INR 1.2 03/12/2025 INR 1.2 03/11/2025 INR 1.4 (H) 03/10/2025 Type and Screen: A neg Blood Products Administered: 3U PRBC (03/08/25 at 0200) Will continue to monitor Hgb and transfuse PRN H&H q8h, stable 7. ID Leukocytosis Bacterial Peritonitis Ovarian Cystic Lesion - Infectious disease is onboard - Completed course of abx for peritonitis - Continue ceftriaxone and metronidazole empirically Tmax/24H: 36.9 Labs: Lab Results Component Value Date WBC 5.9 03/12/2025 WBC 8.3 03/11/2025 WBC 10.3 03/10/2025 Micro: Urine culture positive 50,000-100,0000 Enterococcus species Peritoneal fluid culture collected 02/28/25: [facility] Hospital Meds: Antibiotics: rocephin and flagyl 8. Endocrine Lab Results Component Value Date GLU 86 03/12/2025 GLU 86 03/12/2025 GLU 74 03/11/2025 Goal Blood Glucose <180 mg/dL Hospital Meds: ISS PMH: none known 9. Musculoskeletal PMH: n/a PSH: n/a PT/OT when able 10. Prophylaxis Respiratory: none GI: protonix DVT: SCD Cuffs, heparin 11. Lines PIV x2 L radial A line Camara Right IJ CVC ETT tube L chest tube NG tube Disposition: Critical, ICU Sarath Hoover MD General Surgery Resident, PGY1 SICU Cosigned by Orion Damico MD at 03/12/2025 8:27 AM EDT Associated attestation - Orion Damico MD - 03/12/2025 8:27 AM EDT Attending Attestation: I saw the patient. I participated and was physically present during the critical/fuentes portions of the service. I was directly involved in the management and treatment plan of the patient. I reviewed the resident's note. Additional Notes/Findings: <<<<<<<<<<<<<<<<<< Surgical Critical Care Attending >>>>>>>>>>>>>>>>>>>>>>>> I have seen and evaluated the patient, and have also reviewed the history above. Patient is critically ill and has a high probability of imminent or life- threatening deterioration, that requires highcomplexity decision making and failure to do so may cause further life threatening deterioration. Ihave repeated and performed the fuentes portions of the physical exam and concur with the resident's/advanced practice provider findings with the exception of the below additions. I have reviewed all pertinent laboratory findings and imaging reports/films. We have discussed the patient's status and theappropriate treatment options/plan on the day of the encounter. I agree with the plan as noted above except for changes below. Critical care time spent with the patient today = 32 minutes. Diagnoses: Acute respiratory failure with hypoxia Cardiac arrest Acute blood loss anemia Hypocalcemia Pulmonary embolism DVT TASHA Hypoalbuminemia Sepsis hypokalemia Plan: Patient remains intubated at this time. We will continue ventilator bundle which includes but not limited to, head of bed elevated as tolerated, good oral care, clean ventilator circuit per guidelines. Will continue to wean ventilator as tolerated for possible extubation. MODE ac PEEP 10 FiO2 40 EXTUBATION PARAMETERS Weaning. CPAP trial now. Following commands Heparin drip started yesterday. On ceftriaxone and flagyl. ID involved. Nephrology following. Creatinine normal. Appreciate their help. Hopefully can diurese more today ifthey think appropriate I and O -3.9L/24 hours and +5.7L/HS CXR clear Replace K Continue chest tube Decreasing fentanyl drip Orion Damico MD, FACS [facility] General Surgeons Minimally Invasive Robotic Surgery Surgical Critical Care Trauma Office: [phone] Please feel free to call with questions at anytime. * JHONATAN Moran - 03/11/2025 1:50 PM EDT NUTRITION ADULT FOLLOW UP NUTRITION ASSESSMENT: Patient History: Brief Clinical Summary: Patient presented with abnormal CT AP and cold-like symptoms/difficulty breathing. Admitted for treatment. PMHx includes DVT. 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 Biochemical Data, Medical Tests, and Procedures: 02/24 CT AP: ovarian lesion, renal lesion, pulmonary lesions - likely mets 02/28 IR paracentesis (-1850mL removed) 02/28 US pelvis: 18.2 cm cystic and solid lesion in the pelvis with ascites and peritoneal nodularity 02/28- IR paracentesis for ascites fluid, 1800 mL fluid removed. 03/06 CTA- Colonic dilatation with transition at the sigmoid junction. Concern for obstruction from the known large rectal mass vs multicentric colorectal carcinoma. 03/07 OR: ex lap, total colectomy, salpingo-oophorectomy. Intubated. 03/09 XRA: enteric tube extends to the left mid abdomen 03/09 OR: ex lap, ileostomy creation, small bowel resection, wound closure abdomen, wound vac application Labs: Results from last 3 days Lab Units 03/11/25 0210 03/11/25 0037 03/10/25 1747 03/10/25 1316 03/10/25 0331 03/09/25 1833 03/09/25 1041 SODIUM mmol/L 140 -- -- -- 142 -- 139 POTASSIUM mmol/L 3.9 4.0 4.1 < > 4.5 < > 4.9 CHLORIDE mmol/L 109 -- -- -- 108 -- 109 CO2 mmol/L 23 -- -- -- 26 -- 23 BUN mg/dL 29* -- -- -- 31* -- 30* CREATININE mg/dL 0.99 -- -- -- 1.13* -- 1.09* CALCIUM mg/dL 7.4* -- -- -- 7.9* -- 7.8* ALBUMIN g/dL -- -- -- -- -- -- 2.5* ALK PHOS U/L -- -- -- -- -- -- 38* ALT U/L -- -- -- -- -- -- 23 AST U/L -- -- -- -- -- -- 33 < > = values in this interval not displayed. Results from last 7 days Lab Units 03/11/25 0320 03/11/25 0210 03/10/25 2032 03/10/25 1559 03/10/25 1000 03/10/25 0830 03/10/25 0337 BEDSIDE GLUCOSE mg/dL 99 -- 114* 117* 117* 128* 82 GLUCOSE mg/dL -- 106* -- -- -- -- -- Results from last 3 days Lab Units 03/11/25 02103/10/25 2030 03/10/25 1316 03/10/25 0331 03/09/25 2108 03/09/25 1041 WBC x10E9/L 8.3 -- -- 10.3 -- 12.3* HEMOGLOBIN g/dL 10.1* 10.4* 10.7* 11.3* < > 11.6* HEMATOCRIT % 30.2* 32.0* 33.1* 34.5* < > 35.4 PLATELETS X10E9/L 89* -- -- 117* -- 140* MCV fL 80 -- -- 80 -- 80 < > = values in this interval not displayed. Results from last 3 days Lab Units 03/11/25 02103/10/25 0331 03/09/25 1041 MAGNESIUM mg/dL 2.1 2.2 2.4 Results from last 3 days Lab Units 03/11/25 0351 03/11/25 02103/10/25 0535 03/10/25 0331 03/09/25 1041 PHOSPHORUS mg/dL -- 2.8 -- 3.7 3.9 CALCIUM, IONIZED mg/dL 4.5 -- 4.5 -- 4.6 Results from last 3 days Lab Units 03/09/25 1041 BILIRUBIN, TOTAL mg/dL 1.3* No results found for: HGBA1C Lab Results Component Value Date IRON 12 (L) 02/26/2025 TIBC 321 02/26/2025 FERRITIN 78 02/26/2025 Lab Results Component Value Date IRONSAT 4 (L) 02/26/2025 No results found for: CHOL No results found for: CHDL No results found for: HDL No results found for: LDLCALC No results found for: TRIG No results found for: VERYLOWLIP Lab Results Component Value Date [id number] 110 (L) 02/26/2025 Lab Results Component Value Date FOLATE 3.3 (L) 02/26/2025 No results found for: VITD25 Comments (labs): labs reviewed Medications/ Parenteral: Rocephin, flagyl, fentanyl, NaCl Current Facility-Administered Medications Medication Dose Route Frequency Provider Last Rate Last Admin calcium gluconate IVPB 1000 mg/50 mL (20 mg/mL premix) 1,000 mg intravenous PRN Дмитрий Lara MD Or calcium gluconate IVPB 2000 mg/100 mL (20 mg/mL premix) 2,000 mg intravenous PRN Дмитрий Lara MD Or calcium gluconate 3,000 mg in sodium chloride 0.9 % 100 mL IVPB 3,000 mg intravenous PRN Дмитрий Lara MD cefTRIAXone (ROCEPHIN) 2,000 mg in sodium chloride 0.9 % 50 mL IVPB W/ADAPTER 2,000 mg intravenous Q24H Nuvia Flannery, STUDENT TRUCK DRIVER-ASSISTANT DIRECTOR OF [employer] Stopped at 03/10/25 1624 chlorhexidine (PERIDEX) 0.12 % solution 15 mL 15 mL mouth/throat BID Wili Sanchez MD 15 mL at 03/11/25 0824 dextrose (GLUTOSE) 40 % gel 15 g 15 g oral PRN OK Albright dextrose 5 % (D5W) infusion 100 mL/hr intravenous Continuous PRN OK Albright dextrose 50 % in water (D50W) 50% solution 25 mL 25 mL intravenous PRN OK Albright fentaNYL (SUBLIMAZE) infusion 2500 mcg/50 mL (50 mcg/mL premix cmpd) 25-200 mcg/hr intravenous Continuous Дмитрий Lara MD 3 mL/hr at 03/11/25 0852 150 mcg/hr at 03/11/25 0852 folic acid (FOLVITE) tablet 1 mg 1 mg nasogastric Daily Dariana Guerrero MD glucagon HCL injection 1 mg 1 mg intramuscular PRN OK Albright heparin (porcine) injection 2,000 Units 2,000 Units intravenous PRN Ashok Hwang DO heparin infusion 84839 units/500 mL in 0.45% NaCl (50 units/mL premix) 300-3,500 Units/hr intravenous Continuous Sarath Hoover MD 19 mL/hr at 03/11/25 0523 950 Units/hr at 03/11/25 0523 hydrALAZINE (APRESOLINE) injection 10 mg 10 mg intravenous Q6H PRN Eleni Harding, STUDENT TRUCK DRIVER-ASSISTANT DIRECTOR [employer] 10 mg at 03/04/25 1335 insulin lispro (HumaLOG) injection 2-10 Units 2-10 Units subcutaneous Q6H Дмитрий Lara MD magnesium sulfate IVPB 2000 mg/50 mL in iso-osmotic water (40 mg/mL premix) 2,000 mg intravenous PRN Дмитрий Lara MD Stopped at 03/09/25 0640 Or magnesium sulfate IVPB 4000 mg/100 mL in iso-osmotic water (40 mg/mL premix) 4,000 mg intravenous PRN Дмитрий Lara MD metroNIDAZOLE (FLAGYL) IVPB 500 mg/100 mL in iso-osmotic sodium chloride (5 mg/mL premix) 500 mg intravenous Q12H Nuvia Flannery APRN-ASSISTANT DIRECTOR [employer] Stopped at 03/11/25 0426 ondansetron (PF) (ZOFRAN) injection 4 mg 4 mg intravenous Q4H PRN Neelima Ta, STUDENT TRUCK DRIVER-ASSISTANT DIRECTOR [employer] 4 mg at03/04/25 1700 [START ON 03/12/2025] pantoprazole (PROTONIX) injection 40 mg 40 mg intravenous Q24H JOSE Hwang, potassium chloride (K-TAB,KLOR-CON) CR tablet 20-50 mEq 20-50 mEq oral PRN Дмитрий Lara MD Or potassium chloride (KAYCIEL) 20 mEq/15 mL solution 20-50 mEq 20-50 mEq oral PRN Дмитрий Lara MD potassium chloride IVPB 10 mEq/50 mL in water (0.2 mEq/mL premix) 10 mEq intravenous PRXavi Lara MD Stopped at 03/08/25 1416 Or potassium chloride IVPB 10 mEq/100 mL in water (0.1 mEq/mL premix) 10 mEq intravenous PRXavi Lara MD sodium phosphate 20 mmol in sodium chloride 0.9 % 250 mL IVPB 20 mmol intravenous PRXavi Lara MD Or sodium phosphate 20 mmol in sodium chloride 0.9 % 100 mL IVPB 20 mmol intravenous PRXavi Lara MD Or sod phos di, mono-K phos mono (K-PHOS NEUTRAL) 250 mg tablet 2 tablet 2 tablet oral PRN Дмитрий Lara MD sodium chloride 0.9 % flush 10 mL 10 mL intravenous PRN Deena Branch MD 10 mL at 02/25/25 1857 sodium chloride 0.9 % flush 10 mL 10 mL intravenous PRN Ghassan Castillo MD 10 mL at 03/08/25 0804 sodium chloride 0.9 % infusion 20 mL/hr intravenous Continuous PRN Neelima Ta, STUDENT TRUCK DRIVER-ASSISTANT DIRECTOR [employer] 50 mL/hr at 03/11/25522 50 mL/hr at 03/11/25522 sodium chloride 0.9 % infusion 3 mL/hr intra-arterial Continuous Fernanda Soliman MD 3 mL/hr at 03/11/25522 3 mL/hr at 03/11/25522 Nutrition Focused Physical Findings +ETT, NG, chest tube, ileostomy, wound vac. 150 ml NG output, 75 ml drain output - 03/10-. +1/+3 edema noted. Last BM 03/04. Skin (per nursing flow sheets): Skin Color: Pale; Dusky (03/11/25299) Skin Temp: Cool (03/11/25299) Wound (per nursing flow sheets): Wound 03/07/25 Incision Abdomen N/A-Site Assessment: Unable to assess (03/11/25299) Gastrointestinal (per nursing flow sheets): Abdomen Assessment: (abthera in place) (03/10/25299) Last BM Date: 03/04/25 (03/06/25 09) Passing Flatus: No (03/07/252029) RUQ Bowel Sounds: Absent (03/11/25299) LUQ Bowel Sounds: Absent (03/11/25299) RLQ Bowel Sounds: Absent (03/11/25299) LLQ Bowel Sounds: Absent (03/11/25299) GI Symptoms: Bloating; Distention; Loss of appetite (03/07/252029) Edema (per nursing flow sheets): RUE Edema: +1 (03/11/25299) LUE Edema: +1 (03/11/25299) RLE Edema: +3 (03/11/25299) LLE Edema: +3 (03/11/25299) Intake/ Output Last 24 hrs: Intake/Output Summary (Last 24 hours) at 03/11/2025 0957 Last data filed at 03/11/2025 0600 Gross per 24 hour Intake 2418.91 ml Output 1165 ml Net 1253.91 ml Food/Nutrition Related History: Diet/ Nutrition Order Review: Dietary Orders (From admission, onward) Start Ordered 03/09/251856 Adult diet NPO; Except medications Diet effective now Question Answer Comment Diet Type: NPO NPO Except: Except medications 03/09/251855 TPN: (Show up to 1 orders; newest on the left.) None Diet Intakes: NPO/CLD (since 03/03) 03/11 [address] spoke extensively with London Merino MD with [facility] regarding TPN initiation. reported there may be contraindications to initiating TPN with stage [address] stated in the scenario, due to patient being NPO x 8 days, the benefits outweigh the risks. Dr. Merino stated he is aware and will monitor and evaluate the need . Anthropometrics: Ht Readings from Last 1 Encounters: 02/25/25 157.5 cm (5' 2.01 ) Last 3 Weight Readings 03/07/25 0427 03/07/25 1100 03/09/25 0350 Weight: 80.5 kg (177 lb 7.5 oz) 79.4 kg (175 lb 0.7 oz) 84.4 kg (186 lb 1.1 oz) Current Weight: 84.4 kg (bed scale, 03/09) Admit Weight: 74.8 kg (Standing Scale, 02/26) [place] Body Weight: 50 kg Weight Changes: Variable weight this admission, (varying scales used); appears to have gained sinceadmit, likely fluid related Current Body Mass Index: Body mass index is 34.02 kg/m??. Comparative Standards: Estimated Energy Needs: 825-1050 kcals daily. Method and weight used: 11-14 kcal/kg admit weight Estimated Protein Needs: 85-105 grams daily. Method and weight used: 1.7-2.1g protein/kg IBW Estimated Fluid Needs: 9328-2707 ml daily. Method weight used: 25-30 ml/kg IBW Comments: ICU/Vent needs Malnutrition Status: Malnutrition Present: At risk due to NPO x 8 days NUTRITION DIAGNOSIS: Intake Diagnosis: Inadequate oral intake (NI 2.1) related to GI dysfunction as evidenced by NPO x 8days. NUTRITION INTERVENTIONS: Coordination of Care: Spoke with Dr. London Merino RECOMMENDATIONS: Would recommend initiating alternative route of nutrition at this time as patient NPO x 8 days and in a catabolic state GOAL(S): Meet estimated calorie and protein needs. NUTRITION MONITORING AND EVALUATION: nutrition plan, labs, GI function, weight, POC Alondra Anderson RD, JHONATAN Clinical Dietitian [facility] [phone] * Brenda Hayes MD - 03/11/2025 1:25 PM EDT Images from the original note were not included. Tom [facility] Artur Small, [facility] Nephrology Consultation Note Patient Name: Caren Suarez : 1955 Date of Service: 03/11/25 PCP: Riya Diego MD Attending Physician: Ghassan Castillo MD Admission Date: 02/25/2025 Length of stay: LOS: 14 days Chief complaint. No chief complaint on file. Reason for Consult: Acute Kidney Injury Assessment and Plan. 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 She reports having a hard time breathing and a cough that went away ( she has had a hard time breathing and had a cough but it went away ). She had been treated by her PCP with steroids and antibiotics without improvement. An outpatient CT abdomen/pelvis on 02/24/2025 revealed a large right adnexal mass, a solid right renal lesion, and likely metastases to the lungs and abdomen. Venous duplex showed bilateral DVTs. She was transferred from [place] to [facility] for further evaluation and management. In the emergency department, she was started on a heparin drip. Workup upon admission included a CTA chest on 02/25/2025, which confirmed moderate right-sided pulmonary emboli without right heart strain. She is currently being treated for a urinary tract infection and bacterial peritonitis with IV Rocephin and Flagyl, with Infectious Disease on board. Nephrology consultation was requested for acute kidney injury. Assessment Acute Kidney Injury, likely multifactorial with hemodynamic and prerenal components, with concern for acute tubular necrosis (ATN). Baseline creatinine is approximately 0.9 mg/dL. The TASHA is in the setting of sepsis, treatment for bacterial peritonitis, and obs uropathy , There was contrast exposure on 02/24/2025. Right hydrnephrosis, 2.2 cm right renal mass lesion Urology evaluated the patient Mild hyponatremia on initial evaluation. Metabolic acidosis on initial evaluation. Volume Status: Euvolemic , possibly on low side Hypertension: Stable, though has been on the higher side. Hemodynamics: Echocardiogram on 02/26/2025 showed a normal LVEF of 60-65% with Grade I diastolic dysfunction and no evidence of right heart strain. Anemia Most recent hemoglobin is 10.8 g/dL. Sepsis secondary to bacterial peritonitis and UTI. 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 ? Rectal ca Acute pulmonary embolism and bilateral DVT. Malignant Bowel obstruction , patient is status post exploratory laparotomy, total colectomy, left in discontinuity, and BSO on 03/07/2025 , repeat Second Look laparotomy and ileostomy creation on 03/09/2025 Cardiac arrest intraoperatively, 03/07/2025 needing ACLS. Ventilator dependent respiratory failure postoperatively Plan Discontinue IV fluids, we will start patient on Lasix 40 mg IV b.I.d., discussed with surgery. Renal function stable, continue to monitor Vasopressor , ventilator support per critical Care Strict ins and outs / accurate documentation of urine out put / daily weights and Bladder scan Q12 Avoid nephrotoxins, avoid contrast exposure unless absolutely necessary, avoid hemodynamic instability Dose all medications to GFR Monitor Renal Chem panel daily in AM Thank you for this consultation, we will follow along with you regarding care of this patient whilethe patient is here in the hospital, please call if you have any questions or concerns. BRENDA HAYES MD on 03/11/2025 at 1:25 PM [facility] [email or web address] - is now [employer] Schedule : See Epic on-call schedule for [facility] ( [facility] ) Nephrology Working Hours : Epic chat during working hours, if no response please use on- call physician reach out as below After Hours : Answering service contact : [phone] Office Phone number: [phone] Subjective Patient seen at bedside, she is status post surgery Currently on ventilator Edema getting worse Urine output decreasing Past Medical History: Diagnosis Date Deep vein thrombosis (CMS-HCC) Past Surgical History: Procedure Laterality Date APPLICATION WOUND VAC MIDSECTION N/A 03/09/2025 Performed by Ghassan Castillo MD at [facility] CLOSURE WOUND ABDOMEN N/A 03/09/2025 Performed by Ghassan Castillo MD at [facility] ILEOSTOMY CREATION N/A 03/09/2025 Performed by Ghassan Castillo MD at [facility] LAPAROTOMY EXPLORATORY N/A 03/09/2025 Performed by Ghassan Castillo MD at [facility] LAPAROTOMY EXPLORATORY N/A 03/07/2025 Performed by Ghassan Castillo MD at [facility] RESECTION BOWEL SMALL N/A 03/09/2025 Performed by Ghassan Castillo MD at [facility] SALPINGO-OOPHORECTOMY Bilateral 03/07/2025 Performed by Faith Celis MD at [facility] TOTAL COLECTOMY N/A 03/07/2025 Performed by Ghassan Castillo MD at [facility] Family History Problem Relation Age of Onset Breast cancer Neg Hx Social History Socioeconomic History Marital status: Single Spouse name: Not on file Number of children: Not on file Years of education: Not on file Highest education level: Not on file Occupational History Not on file Tobacco Use Smoking status: Former Types: Cigarettes Smokeless tobacco: Never Substance and Sexual Activity Alcohol use: Never Drug use: Never Sexual activity: Not on file Other Topics Concern Not on file Social History Narrative Not on file Social Drivers of Health Financial Resource Strain: Not on file Food Insecurity: No Food Insecurity (02/25/2025) Hunger Screening Food Insecurity - Worry: Never True Food Insecurity - Inability: Never True Transportation Needs: No Transportation Needs (02/25/2025) PRAPARE - Transportation Lack of Transportation (Medical): No Lack of Transportation (Non-Medical): No Physical Activity: Not on file Stress: Not on file Social Connections: Not on file Interpersonal Safety: Not At Risk (02/25/2025) Humiliation, Afraid, Rape, and Kick questionnaire Fear of Current or Ex-Partner: No Emotionally Abused: No Physically Abused: No Sexually Abused: No Housing Instability: Low Risk (02/25/2025) Housing Instability Housing Instability: No Prior to Admission medications Medication Sig Start Date End Date Taking? Authorizing Provider apixaban (ELIQUIS) 5 mg tablet Take 2 tablets (10 mg total) by mouth 2 (two) times a day for 7 days, THEN 1 tablet (5 mg total) 2 (two) times a day for 30 days. 03/05/25 04/11/25 Eleni Harding APRN-DUYEN Allergies Allergen Reactions Penicillin Physical Exam: VITALS BP 96/59 Pulse 81 Temp 36.8 ??C (98.2 ??F) Resp 20 Ht 157.5 cm (5' 2.01 ) Wt 84.4 kg (186lb 1.1 oz) SpO2 98% BMI 34.02 kg/m?? Wt Readings from Last 3 Encounters: 03/09/25 84.4 kg (186 lb 1.1 oz) 02/24/25 74.4 kg (164 lb) BMI: Body mass index is 34.02 kg/m??. I/O (24 Hours) Intake/Output Summary (Last 24 hours) at 03/11/2025 1325 Last data filed at 03/11/2025 1322 Gross per 24 hour Intake 2478.91 ml Output 1360 ml Net 1118.91 ml General: Patient is currently intubated, sedated HEENT: Atraumatic, normocephalic. Anicteric sclera. [place] and moist oral mucosa. Neck supple. No JVD. Chest: Bilateral air entry, clear to auscultation, no wheezing, rhonchi or rales. Cardiovascular: RRR, S1S2, no murmur, rub or gallop. No lower extremity edema. Abdomen: Postoperative, soft Musculoskeletal: No cyanosis or clubbing. No edema Integumentary: [place], warm and dry. Free from rash or lesions. CARBIDE GRINDER: Patient is currently intubated, sedated, examination grossly nonfocal, full neurological examination could not be done due to clinical condition Medications Scheduled Meds: cefTRIAXone (ROCEPHIN) IV, 2,000 mg, intravenous, Q24H chlorhexidine, 15 mL, mouth/throat, BID folic acid, 1 mg, nasogastric, Daily furosemide, 40 mg, intravenous, BID insulin lispro, 2-10 Units, subcutaneous, Q6H metroNIDAZOLE, 500 mg, intravenous, Q12H [START ON 03/12/2025] pantoprazole, 40 mg, intravenous, Q24H JOSE Continuous Infusions: dextrose 5 % in water, 100 mL/hr fentaNYL, 25-200 mcg/hr, Last Rate: 150 mcg/hr (03/11/25851) heparin, 300-3,500 Units/hr, Last Rate: 950 Units/hr (03/11/25522) sodium chloride 0.9 %, 20 mL/hr, Last Rate: 50 mL/hr (03/11/25522) sodium chloride 0.9 %, 3 mL/hr, Last Rate: 3 mL/hr (03/11/25522) PRN Meds: calcium gluconate OR calcium gluconate OR calcium gluconate dextrose dextrose 5 % in water dextrose 50 % in water (D50W) glucagon (human recombinant) heparin (porcine) hydrALAZINE magnesium sulfate OR magnesium sulfate ondansetron potassium chloride OR potassium chloride potassium chloride in water OR potassium chloride in water sodium phosphate IV OR sodium phosphate IV - central line OR sod phos di, mono-K phos mono sodium chloride sodium chloride sodium chloride 0.9 % Results Review Renal Chemistry Results from last 7 days Lab Units 03/11/25 0210 03/11/25 0037 03/10/25 1747 03/10/25 1316 03/10/25 0331 03/09/25 1833 03/09/25 1041 03/09/25 0601 03/09/25 0325 03/08/25 1113 03/08/25 0455 03/08/25 0043 03/08/25 0032 SODIUM mmol/L 140 -- -- -- 142 -- 139 -- 140 -- 138 -- 138 PORTABLE SODIUM -- -- -- -- -- -- -- -- -- -- -- < > -- POTASSIUM mmol/L 3.9 4.0 4.1 4.2 4.5 < > 4.9 < > 5.0 < > 4.2 -- 3.5 POC POTASSIUM -- -- -- -- -- -- -- -- -- -- -- < > -- CHLORIDE mmol/L 109 -- -- -- 108 -- 109 -- 109 -- 106 -- 105 CO2 mmol/L 23 -- -- -- 26 -- 23 -- 25 -- 21* -- 19* BUN mg/dL 29* -- -- -- 31* -- 30* -- 30* -- 28* -- 29* CREATININE mg/dL 0.99 -- -- -- 1.13* -- 1.09* -- 1.25* -- 1.07* -- 1.18* CALCIUM mg/dL 7.4* -- -- -- 7.9* -- 7.8* -- 8.1* -- 8.4* -- 8.3* MAGNESIUM mg/dL 2.1 -- -- -- 2.2 -- 2.4 -- 1.9 -- 2.0 -- 2.1 PHOSPHORUS mg/dL 2.8 -- -- -- 3.7 -- 3.9 -- 3.8 -- -- -- 5.4* < > = values in this interval not displayed. Hepatic: Lab Results Component Value Date AST 33 03/09/2025 AST 108 (H) 03/08/2025 AST 21 02/24/2025 ALT 23 03/09/2025 ALT 33 (H) 03/08/2025 ALT 15 02/24/2025 ALKPHOS 38 (L) 03/09/2025 ALKPHOS 37 (L) 03/08/2025 ALKPHOS 105 02/24/2025 BNP Lab Results Component Value Date BNP 22 03/08/2025 BNP 34 03/06/2025 BNP 61 02/24/2025 CBC Results from last 7 days Lab Units 03/11/25 0210 03/10/25202903/10/25 1316 03/10/25 0331 03/09/25 2108 03/09/25 1041 03/09/25 0332 03/08/25 21503/08/25 1302 03/08/25 0348 WBC x10E9/L 8.3 -- -- 10.3 -- 12.3* 15.5* -- -- 5.2 HEMOGLOBIN g/dL 10.1* 10.4* 10.7* 11.3* 11.4* 11.6* 12.7 < > 12.9 10.8* HEMATOCRIT % 30.2* 32.0* 33.1* 34.5* 34.3* 35.4 39.3 < > 38.5 32.6* PLATELETS X10E9/L 89* -- -- 117* -- 140* 155 -- 187 165 < > = values in this interval not displayed. Results from last 7 days Lab Units 03/11/25 1059 03/11/25 0320 03/11/25 0210 03/10/25203103/10/25 1559 BEDSIDE GLUCOSE mg/dL 81 99 -- 114* 117* GLUCOSE mg/dL -- -- 106* -- -- Urine Studies: Lab Results Component Value Date COLOR Yellow 03/06/2025 TURBIDITY Hazy (A) 03/06/2025 SPECIFICGRA 1.023 03/06/2025 NITRITE Negative 03/06/2025 PHURINE 6.0 03/06/2025 LEUKOCYTE Small (A) 03/06/2025 PROTEIN 50 mg/dL (A) 03/06/2025 KETONES 20 mg/dL (A) 03/06/2025 UROBILINOGEN <1.1 eu/dL 03/06/2025 BLOODHGB Large (A) 03/06/2025 Lab Results Component Value Date UPROCRTRAT 0.25 (H) 03/06/2025 Urine Sodium: No components found for: CRYSTAL Urine Potassium: No results found for: KUR Urine Chloride: No results found for: CLUR Urine Osmolarity: No components found for: OSMOU Urine Creatinine: No results found for: LABCREA Urine Eosinophils: No components found for: UEOS Urine Protein: No components found for: TPU Immunology Profile No results found for: PROTELECTR , SEDRATE , CRP , RF , ANASCREEN , ANTIDSDNA , C3 , C4 , ANCA , MYELOP , PROTEINASE3 , ANTIGLOMERU No results found for: HAV , HEPAIGM , HEPBIGM , HEPBCAB , HBEAG , HEPCAB SP: No results found for: SP C3:No results found for: C3 C4:No results found for: C4 MPO ANCA: No results found for: MPO PR3 ANCA: No components found for: PR3 hepatitis serologies ANTIGBM:No components found for: GBMABIGG HEPATITIS B SURFACE AG: No results found for: HEPBSAG HEPATITIS C AB: No results found for: HEPCAB Electrophoresis: SPEP:No results found for: PROT , LABALPH , LABBETA , PATH UPEP:No results found for: LABPE Anemia Profile Lab Results Component Value Date WBC 8.3 03/11/2025 WBC 10.3 03/10/2025 HGB 10.1 (L) 03/11/2025 HGB 10.4 (L) 03/10/2025 HCT 30.2 (L) 03/11/2025 HCT 32.0 (L) 03/10/2025 PLT 89 (L) 03/11/2025 PLT 117 (L) 03/10/2025 Lab Results Component Value Date IRON 12 (L) 02/26/2025 TIBC 321 02/26/2025 FERRITIN 78 02/26/2025 Bone Mineral Profile Lab Results Component Value Date CALCIUM 7.4 (L) 03/11/2025 Results from last 7 days Lab Units 03/11/25 0210 03/10/25 0331 03/09/25 1041 MAGNESIUM mg/dL 2.1 2.2 2.4 Echocardiogram: Echo complete W/O contrast Result Date: 02/26/2025 Left Ventricle: Left ventricle is small. Systolic function is normal with an ejection fraction of 60-65%. No segmental wall motion abnormalities. Grade I diastolic dysfunction (impaired relaxation) is present. Lateral E' is 11.70 cm/s. Medial E' is 7.94 cm/s. Right Ventricle: Right ventricular sizeappears normal. The right ventricular basal diameter is 22.0 mm. Systolic function is normal. Aortic Valve: There is trace to mild regurgitation. There is no evidence of aortic valve stenosis. Thank you for the consultation. Please do not hesitate to contact us for any further questions/concerns. We will continue to follow along with you. * Nuvia Flannery, STUDENT [employer]SISTANT DIRECTOR OF [employer] - 03/11/2025 10:31 AM EDT Images from the original note were not included. Division of Infectious Diseases Progress note Academic Team Please contact us via [employer] chat. After hours, call [phone] Patient name: Caren Suarez Patient Today's Date and Time: 03/11/2025, 10:31 AM Admission Date: 02/25/2025 Primary Care Physician: Ryia Diego MD Impression and Recommendations: Leukocytosis Large bowel obstruction Metastatic colorectal cancer Peritonitis S/P paracentesis 02/28/2025 - nucleated cells are elevated at 1900 with neutrophil predominance (60%) Peritoneal fluid culture is negative to date Abdominal soft tissue mass bx path report +mucinous adenocarcinoma c/w colorectal origin Status post exp lap, total colectomy, bilateral salpingo-oopherectomy, vac placemement 03/07 Status post creation of ileostomy and abdominal closure On ceftriaxone and metronidazole. General surgery following Intra operative cardiac arrest Acute respiratory failure Remains intubated on the vent Vent management per critical care Urinary retention Positive urine culture Patient was retaining urine and camara place last week. Urine culture +enterococcus. Patient was asymptomatic No fever or leukocytosis. Low suspicion for uti at this time Monitor off treatment TASHA Renal mass concerning for RCC Right hydronephrosis Positive urine culture Urine culture +VRE. No urinary symptoms when culture obtained. No systemic signs of infection at this time. No indication for treatment. Urology and nephrology following Acute PE, with R heart strain Multiple DVT On heparin Subjective Interval History: Patient seen and examined at bedside. Remains intubated on vent. No longer on pressors. No fever Objective Physical Examination : BP 96/59 Pulse 87 Temp 36.7 ??C (98.1 ??F) Resp 20 Ht 157.5 cm (5' 2.01 ) Wt 84.4 kg (186lb 1.1 oz) SpO2 98% BMI 34.02 kg/m?? Temperature Range: Temp: 36.7 ??C (98.1 ??F) Temp Av.7 ??C (98 ??F) Min: 36.4 ??C (97.5 ??F) Max: 36.9 ??C (98.4 ??F) General Appearance: intubated on vent and in no apparent distress Eyes: Sclera anicteric; conjunctivae pink ENT: ETT in place Neck: Supple, without lymphadenopathy. Pulmonary/Chest: Clear to auscultation, without wheezes, rales, or rhonchi. Left sided chest tube in place Cardiovascular: Regular rate and rhythm without murmurs, rubs, or gallops. Abdomen: distended. Soft. Vac in place Extremities: No cyanosis, clubbing, , or effusions. +BLE edema Neurologic: Bulk and tone are normal. No atrophy is noted. Skin: No rash or lesions. Laboratory data: I have independently reviewed the following labs: Results from last 7 days Lab Units 03/11/2520903/10/25 2030 03/10/25 1316 03/10/25 0331 03/09/25 2108 03/09/25 10403/09/25 0332 WBC x10E9/L 8.3 -- -- 10.3 -- 12.3* 15.5* HEMOGLOBIN g/dL 10.1* 10.4* 10.7* 11.3* < > 11.6* 12.7 HEMATOCRIT % 30.2* 32.0* 33.1* 34.5* < > 35.4 39.3 MCV fL 80 -- -- 80 -- 80 81 PLATELETS X10E9/L 89* -- -- 117* -- 140* 155 EOS ABS MAN 10*3/uL -- -- -- -- -- -- 0.0 BASOS ABS MAN 10*3/uL -- -- -- -- -- -- 0.0 < > = values in this interval not displayed. Results from last 7 days Lab Units 03/11/25 0210 03/11/25 0037 03/10/25 1747 03/10/25 1316 03/10/25 0331 03/09/25 1833 03/09/25 1041 03/08/25 0043 03/08/25 0032 SODIUM mmol/L 140 -- -- -- 142 -- 139 < > 138 PORTABLE SODIUM -- -- -- -- -- -- -- < > -- POTASSIUM mmol/L 3.9 4.0 4.1 < > 4.5 < > 4.9 < > 3.5 POC POTASSIUM -- -- -- -- -- -- -- < > -- CHLORIDE mmol/L 109 -- -- -- 108 -- 109 < > 105 CO2 mmol/L 23 -- -- -- 26 -- 23 < > 19* BUN mg/dL 29* -- -- -- 31* -- 30* < > 29* CREATININE mg/dL 0.99 -- -- -- 1.13* -- 1.09* < > 1.18* CALCIUM mg/dL 7.4* -- -- -- 7.9* -- 7.8* < > 8.3* ALBUMIN g/dL -- -- -- -- -- -- 2.5* -- 1.9* ALK PHOS U/L -- -- -- -- -- -- 38* -- 37* ALT U/L -- -- -- -- -- -- 23 -- 33* AST U/L -- -- -- -- -- -- 33 -- 108* < > = values in this interval not displayed. Results from last 7 days Lab Units 03/06/25 1241 COLOR UA Yellow TURBIDITY Hazy* SPECIFIC GRAVITY, URINE 1.023 NITRITE UA Negative PH URINE 6.0 LEUKOCYTE ESTERASE Small* PROTEIN 50 mg/dL* KETONES (URINE) 20 mg/dL* UROBILINOGEN <1.1 eu/dL BLOOD Large* R. B. CELLS 197* WBC UA 25* Echo complete W/O contrast Result Date: 02/26/2025 Left Ventricle: Left ventricle is small. Systolic function is normal with an ejection fraction of 60-65%. No segmental wall motion abnormalities. Grade I diastolic dysfunction (impaired relaxation) is present. Lateral E' is 11.70 cm/s. Medial E' is 7.94 cm/s. Right Ventricle: Right ventricular sizeappears normal. The right ventricular basal diameter is 22.0 mm. Systolic function is normal. Aortic Valve: There is trace to mild regurgitation. There is no evidence of aortic valve stenosis. Imaging Studies: Procedure Component Value Units Date/Time X-ray chest 1 view [[id number]] Collected: 03/10/25 0558 Order Status: Completed Updated: 03/10/25 0603 Narrative: Single view chest XR CHEST 1 VW History: intubated Comparison: March 09 Impression: * Pneumothorax remains with a indwelling left chest tube. Pneumothorax is larger than the prior study currently approximately 17 mm at the left upper lobe. The amount of gas within the left chest wall is increasing. Minimal atelectasis at the lung bases. Grossly no effusion * Tubes and lines are unchanged Finalized by Oli Salvador MD on 03/10/2025 6:02 AM I have personally reviewed this study. Cultures: Microbiology Results Procedure Component Value Units Date/Time Urine Culture Urine, Indwelling Catheter [[id number]] (Abnormal) (Susceptibility) Collected: 03/07/25 112 Specimen: Urine, Indwelling Catheter Updated: 03/10/251126 CULTURE RESULTS 50,000-100,000 CFU/mL Vancomycin resistant Enterococcus species Susceptibility Vancomycin resistant Enterococcus species Not Specified Ampicillin >=32.0 Resistant Daptomycin 2.5 Susceptible (dose dependent) Levofloxacin >=8.0 Resistant Linezolid 2.0 Susceptible Nitrofurantoin 64 Intermediate Vancomycin >=32.0 Resistant Medications: cefTRIAXone (ROCEPHIN) IV, 2,000 mg, intravenous, Q24H chlorhexidine, 15 mL, mouth/throat, BID folic acid, 1 mg, nasogastric, Daily insulin lispro, 2-10 Units, subcutaneous, Q6H metroNIDAZOLE, 500 mg, intravenous, Q12H [START ON 03/12/2025] pantoprazole, 40 mg, intravenous, Q24H [facility] Thank you for allowing us to participate in the care of this patient. Please call with questions. - ELLIOTT RENDON 03/11/25 10:31 AM ELLIOTT Rendon 03/09/25 1449 ELLIOTT Rendon 03/10/25 1331 ELLIOTT Rendon 03/11/25 1323 * ELLIOTT Shankar - 03/11/2025 9:21 AM EDT Images from the original note were not included. [facility] Hematology and Oncology - Daily Progress Note 03/11/2025, 9:21 AM Impression/Plan: Metastatic Colorectal Cancer -Initially favoring ovarian primary given clinical pattern, but now with pathology positive for colorectal primary -Initial CT a/p showed large partially solid and partially cystic lesion in the right adnexa measuring 16 cm x 12 cm x 11 cm + lower anterior abdominal soft tissue nodules + 2.5 cm solid R renal lesion + diffuse intraperitoneal fluid -CTA chest revealed numerous pulmonary nodules -CA-833=4178, DZ4=162, CEA=24.6, CA 19-9 WNL -TVUS noted an 18.2 cm cystic and solid lesion in the pelvis with ascites and peritoneal nodularity -S/p IR performed paracentesis and biopsy of soft tissue nodules 02/28 -Ascites fluid non-diagnostic -Abdominal soft tissue biopsy pathology positive for mucinous adenocarcinoma consistent with colorectal origin -Will need tor recover from surgery before she will be considered for systemic cancer treatments -Palliative medicine consult for assistance with pain. GOC discussions may also be needed in the near future pending her clinical course -She will follow up with Dr. Romero after discharge for further management Malignant Bowel Obstruction, Abdominal Pain/Distention -Repeat CT a/p 03/06 shows Colonic dilatation with transition at the sigmoid junction. Concern for obstruction from the known large rectal mass vs multicentric colorectal carcinoma + Similar appearanceof a 20 cm cystic pelvic lesion, recently characterized as rectal adenocarcinoma + Peritoneal carcin omatosis -Now s/p exploratory laparotomy with colectomy, bilateral salpingo-oophorectomy 03/07--> s/p 2nd look exp lap with washout, SBR, end ileostomy, and wound vac 03/09 -Patient coded in surgery, and now remains in ICU on ventilator support -General surgery following Renal Mass, Hydroureteronephrosis, TASHA, hyperuricemia -CT imaging shows 2.5 cm R interpolar renal mass concerning for RCC + Mild right hydroureteronephrosis, likely secondary to pelvic mass effect on the ureter -Urology, nephrology following PE/DVT -Likely provoked by metastatic malignancy -CTA shows Moderate right sided pulmonary emboli without evidence of right heart strain -Dopplers revealing acute R femoropopliteal, deep tibioperoneal, and deep calf muscle DVT + L deep calf muscle DVT -On heparin gtt, likely transition to DOAC prior to discharge pending clinical course -Repeat CTA chest 03/08 showed decreased burden of R pulmonary embolus Supratherapeutic INR -In setting of advanced metastatic disease, Eliquis therapy, acute infection -INR corrected s/p preoperative Vit K +/- FFP reversal Anemia/thrombocytopenia -Largely multifactorial due to severe B12 deficiency, folate deficiency, Iron deficiency anemia in setting of vaginal bleeding d/t #1, acute infection, metastatic GI malignancy, renal insufficiency, surgical blood loss -Hgb=10.1(11.3, 11.4, 12.7, 12.7) microcytic -Plt =89k( 117k, 140k, 155k, 187k) -HPF4ab pending -Last transfused PRBC 03/08 -S/p IM B12 & IV iron -Continue folic acid -No hemolysis -EGD/colonoscopy were planned, but not completed as patient could not tolerate bowel prep, likely due to bowel obstruction as discussed above -Transfuse for hgb<7 -Have arranged for follow up with Dr. Romero UTI -On IV antibiotics -As per other services Respiratory Failure, Shock, S/p Cardiac Arrest -Remains on vent, currently off pressors -As per crit care team Continue management of other medical problems as per appropriate services. Patient discussed with Dr. Jean. Please call with questions. Interval History: Patient seen and examined at bedside. She is on vent, does not respond to voice. Unable to obtain subjective information, does not appear to be in any distress. No visible bleeding. No fevers. VSS. Physical Examination : Temp: [36.4 ??C (97.5 ??F)-36.9 ??C (98.4 ??F)] 36.7 ??C (98.1 ??F) Pulse: [70-102] 81 Resp: [15-23] 20 BP: (91-119)/(57-72) 96/59 Arterial Line BP: (68-322)/(45-319) 136/50 FiO2 (%): [40 %] 40 % SpO2: [94 %-100 %] 98 % O2 Device: Endotracheal tube Temperature Range: Temp: 36.7 ??C (98.1 ??F) Temp Av.7 ??C (98.1 ??F) Min: 36.4 ??C (97.5 ??F)Max: 36.9 ??C (98.4 ??F) Weight change: Physical Exam Vitals and nursing note reviewed. Constitutional: General: She is not in acute distress. Appearance: She is normal weight. She is ill-appearing HENT: Head: Normocephalic and atraumatic. Right Ear: External ear normal. Left Ear: External ear normal. Nose: Nose normal. Mouth/Throat: ET airway, NGT Eyes: General: No scleral icterus. Extraocular Movements: Extraocular movements intact. Pupils: Pupils are equal, round Cardiovascular: Rate and Rhythm: Normal rate and regular rhythm. Pulmonary: Effort: Pulmonary effort is normal. No respiratory distress Findings: Intubated. L chest tube Abdominal: General: There is distension. Tenderness: There is abdominal tenderness. There is guarding. Musculoskeletal: Right lower leg: +2 edema Left lower leg: +2 edema Skin: General: Skin is warm and dry. Coloration: Skin is not jaundiced. Findings: Abdominal incision, wound vac Neurological: General: sedated, unresponsive to voice Psychiatric: Mood and Affect: CHAN Laboratory data: Results from last 7 days Lab Units 03/11/2520903/10/25202903/10/25 13103/10/25 03303/09/25 21003/09/25 1041 WBC x10E9/L 8.3 -- -- 10.3 -- 12.3* HEMOGLOBIN g/dL 10.1* 10.4* 10.7* 11.3* < > 11.6* HEMATOCRIT % 30.2* 32.0* 33.1* 34.5* < > 35.4 PLATELETS X10E9/L 89* -- -- 117* -- 140* MCV fL 80 -- -- 80 -- 80 < > = values in this interval not displayed. Results from last 7 days Lab Units 03/11/2520903/10/25202903/10/2533003/09/25 03203/08/25 2151 PROTIME sec 13.4* -- 16.3* 19.0* -- INR 1.2 -- 1.4* 1.7* -- APTT sec 58* 55* -- -- 136* Results from last 7 days Lab Units 03/11/25 0320 03/11/25 0210 03/11/25 0037 03/10/25 20303/10/25 1747 03/10/25 0337 03/10/25 03303/09/25 1549 03/09/25 1041 03/09/25 0331 03/09/25 0325 03/08/25 0043 03/08/25 0032 SODIUM mmol/L -- 140 -- -- -- -- 142 -- 139 -- 140 < > 138 PORTABLE SODIUM -- -- -- -- -- -- -- -- -- -- -- < > -- POTASSIUM mmol/L -- 3.9 4.0 -- 4.1 < > 4.5 < > 4.9 < > 5.0 < > 3.5 POC POTASSIUM -- -- -- -- -- -- -- -- -- -- -- < > -- CHLORIDE mmol/L -- 109 -- -- -- -- 108 -- 109 -- 109 < > 105 CO2 mmol/L -- 23 -- -- -- -- 26 -- 23 -- 25 < > 19* BUN mg/dL -- 29* -- -- -- -- 31* -- 30* -- 30* < > 29* CREATININE mg/dL -- 0.99 -- -- -- -- 1.13* -- 1.09* -- 1.25* < > 1.18* CALCIUM mg/dL -- 7.4* -- -- -- -- 7.9* -- 7.8* -- 8.1* < > 8.3* ALK PHOS U/L -- -- -- -- -- -- -- -- 38* -- -- -- 37* ALT U/L -- -- -- -- -- -- -- -- 23 -- -- -- 33* AST U/L -- -- -- -- -- -- -- -- 33 -- -- -- 108* POC GLUCOSE -- -- -- -- -- -- -- -- -- -- -- < > -- BEDSIDE GLUCOSE mg/dL 99 -- -- 114* -- < > -- < > -- < > -- < > -- GLUCOSE mg/dL -- 106* -- -- -- -- 86 -- 114* -- 108* < > 258* INR -- 1.2 -- -- -- -- 1.4* -- -- -- 1.7* < > 2.3* MAGNESIUM mg/dL -- 2.1 -- -- -- -- 2.2 -- 2.4 -- 1.9 < > 2.1 < > = values in this interval not displayed. VITAMIN B12: Lab Results Component Value Date [id number] 110 (L) 02/26/2025 FOLATE: Lab Results Component Value Date FOLATE 3.3 (L) 02/26/2025 IRON: Lab Results Component Value Date IRON 12 (L) 02/26/2025 TIBC 321 02/26/2025 FERRITIN 78 02/26/2025 Medications: cefTRIAXone (ROCEPHIN) IV, 2,000 mg, intravenous, Q24H chlorhexidine, 15 mL, mouth/throat, BID folic acid, 1 mg, nasogastric, Daily insulin lispro, 2-10 Units, subcutaneous, Q6H metroNIDAZOLE, 500 mg, intravenous, Q12H [START ON 03/12/2025] pantoprazole, 40 mg, intravenous, Q24H JOSE ELLIOTT Shankar 03/11/25 1258 Cosigned by Mallory Jean MD at 03/13/2025 7:05 PM EDT * London Merino MD - 03/11/2025 9:07 AM EDT Images from the original note were not included. Colorectal Surgery Daily Progress Note Patient Name: Caren Suarez Admit Date: 02/25/2025 Length of Stay: 14 Days Admitting Physician: Deena Branch MD Subjective: Patient is postoperative day 4 from exploratory laparotomy, total colectomy, left in discontinuity,and BSO and post operative day 2 from abdominal washout, end ileostomy creation, and abdominal closure. No acute events overnight. She no longer requires pressors. Pneumothorax on the left has decreased to 0.6 cm. Patient opens eyes and does not follow commands. Objective: Vitals: 03/11/25 0833 BP: Pulse: 81 Resp: 20 Temp: 36.7 ??C (98.1 ??F) SpO2: 98% Temp: [36.4 ??C (97.5 ??F)-36.9 ??C (98.4 ??F)] 36.7 ??C (98.1 ??F) Pulse: [70-102] 81 Resp: [15-23] 20 BP: (91-119)/(56-72) 96/59 Arterial Line BP: (68-322)/(45-319) 136/50 FiO2 (%): [40 %] 40 % SpO2: [94 %-100 %] 98 % O2 Device: Endotracheal tube Allergies Allergen Reactions Penicillin Intake/Output last 3 shifts: I/O last 3 completed shifts: In: 3653.8 [I.V.:3285.2; IV Piggyback:368.6] Out: 2445 [Urine:2015; Emesis/NG output:250; Drains:125; Chest Tube:55] Intake/Output this shift: No intake/output data recorded. Dietary Orders (From admission, onward) Start Ordered 03/09/251856 Adult diet NPO; Except medications Diet effective now Question Answer Comment Diet Type: NPO NPO Except: Except medications 03/09/251855 Physical Exam General: Remains intubated, requiring vasopressors HENT: Head atraumatic, normocephalic, external ears and nose are normal Eyes: Conjunctivae clear, non-icteric, EOMI Pulmonary: On mechanical ventilator, PRVC-AC respiration rate 20 / PEEP 10/ minute ventilation 7.57/ FiO2 40% Cardiovascular: Regular rate Abdomen: Soft, non-distended, wound VAC in place draining serosanguineous fluid Musculoskeletal: Range of motion grossly normal x4 extremities, no deformity x4 extremities Neurological: Motor and sensation grossly intact Skin: Warm, dry, without jaundice 24 hour urine output: 1005 mL 24 hour wound VAC output: 75 mL 24 hour NG tube output: 150 mL Laboratory Data: Lab Results Component Value Date WBC 8.3 03/11/2025 HGB 10.1 (L) 03/11/2025 HCT 30.2 (L) 03/11/2025 MCV 80 03/11/2025 PLT 89 (L) 03/11/2025 Lab Results Component Value Date GLU 99 03/11/2025 CALCIUM 7.4 (L) 03/11/2025 K 3.9 03/11/2025 CO2 23 03/11/2025 CL 109 03/11/2025 BUN 29 (H) 03/11/2025 CREATININE 0.99 03/11/2025 No results found for: AMYLASE No results found for: LIPASE Lab Results Component Value Date ALT 23 03/09/2025 AST 33 03/09/2025 ALKPHOS 38 (L) 03/09/2025 Lab Results Component Value Date INR 1.2 03/11/2025 INR 1.4 (H) 03/10/2025 INR 1.7 (H) 03/09/2025 PROTIME 13.4 (H) 03/11/2025 PROTIME 16.3 (H) 03/10/2025 PROTIME 19.0 (H) 03/09/2025 cefTRIAXone (ROCEPHIN) IV, 2,000 mg, intravenous, Q24H chlorhexidine, 15 mL, mouth/throat, BID folic acid, 1 mg, nasogastric, Daily insulin lispro, 2-10 Units, subcutaneous, Q6H metroNIDAZOLE, 500 mg, intravenous, Q12H [START ON 03/12/2025] pantoprazole, 40 mg, intravenous, Q24H JOSE calcium gluconate OR calcium gluconate OR calcium gluconate dextrose dextrose 5 % in water dextrose 50 % in water (D50W) glucagon (human recombinant) heparin (porcine) hydrALAZINE magnesium sulfate OR magnesium sulfate ondansetron potassium chloride OR potassium chloride potassium chloride in water OR potassium chloride in water sodium phosphate IV OR sodium phosphate IV - central line OR sod phos di, mono-K phos mono sodium chloride sodium chloride sodium chloride 0.9 % Imaging: X-ray chest 1 view Single view chest History:pneumothorax Difficulty breathing, shortness of breath Comparison: 03/10/2025 Findings: Single portable view of the chest. Stable endotracheal tube and enteric catheter. Left chest tube is stable. There is stable right jugular catheter and bilateral lower lung atelectasis versus pneumonia. There is decreased left pneumothorax with small apical pneumothorax remaining measuring 6 cm. Impression: Stable tubes and lines. Decreasing small left pneumothorax. Otherwise, stable chest. Finalized by Dheeraj Wang MD on 03/11/2025 5:10 AM Assessment: Caren Suarez is a 69 y.o. 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 Patient's surgery was complicated by obstructive shock and cardiac collapse resulting in need for ACLS. ROSC was obtained and patient was transferred to [facility] postoperatively. Patient subsequently went for 2nd loop laparotomy, fascial closure, ileostomy creation on 03/09/2025. 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 2.2 cm right interpolar renal mass concerning for RCC Right-sided PE Left pneumothorax Multiple DVT Pulmonary nodules likely metastasis Obstructive shock from PE on vasopressors Status post cardiac arrest Acute blood loss anemia Coagulopathy Metabolic acidosis Acute respiratory failure requiring mechanical ventilation Plan: NPO, NGT to LIWS Await return of bowel function Ok for heparin drip Antibiotics per ID No further surgical intervention planned Wean ventilator as able Monitor pneumothorax, chest tube management per critical care Appreciate nephrology recommendations Appreciate oncology recommendations Appreciate palliative medicine assistance with goals of care in regards to her cancer Appreciate remainder of care per critical care team Thrombocytopenia management per critical care London Merino MD PGY-1 General Surgery 03/11/25 Colorectal Surgery 6a - 6p Pager: [phone] 6p - 6a Pager: [phone] Cosigned by Reyna Brewer MD at 03/11/2025 5:27 PM EDT Associated attestation - Reyna Brewer MD - 03/11/2025 5:27 PM EDT Attending Attestation: I saw the patient. I performed the critical/fuentes portions of the service. I was directly involved inthe management and treatment plan of the patient. I reviewed the resident's note. Additional Notes/Findings: Patient remains intubated, but is now following commands in the afternoon. * Sarath Hoover MD - 03/11/2025 8:08 AM EDT Images from the original note were not included. SICU Academic Critical Care PROGRESS NOTE Admission Date: 02/25/2025 5:24 PM Attending Physician: Deena Branch MD Date of 1955 Hospital Day: 14 day(s) Caren Suarez is a 69 y.o. female with past medical history of DVT, HTN, who was admitted to [facility] after a CT A/P at an OSH demonstrated large partially solid cystic lesions. At that time she was found to have multiple DVTs and PEs. She was transferred to [facility] for a higher level of care. On arrival, her DVTs were being treated with heparin. Colorectal surgery was consulted on 03/07 for possible bowel obstruction. At that time a CT A/P demonstrated colonic dilation with transition at the sigmoid junction. There is concern for acute malignant obstruction for known mucinous adenocarcinoma with colorectal origin. After stabilization of the patient's INR with [facility] on 03/07, the decisionwas made to take her to the operating room as a joint case between Colorectal on [employer] Specialist/Onc. At the beginning of the case, patient initially desaturated prior to incision. It was believed thatthis was due to the significant malignant ascites compressing the lungs. Decision was made to proceed with the case, and after decompression the patient's respiratory status significantly improved. The patient later went into cardiac arrest within the operating room and a code was initiated. Compressions were begun, epi was administered. After 2 rounds of compressions ROSC was obtained. ABThera was placed and the patient was transferred to the surgical ICU intubated and sedated. Overnight Events: NAEO. PEEP is down to 10, FiO2 40%. Physical Exam: Vital Signs: BP 96/59 Pulse 79 Temp 36.5 ??C (97.7 ??F) Resp 20 Ht 157.5 cm (5' 2.01 ) Wt84.4 kg (186 lb 1.1 oz) SpO2 100% BMI 34.02 kg/m?? General: Sedated HENT: Head atraumatic, normocephalic, external ears and nose are normal Eyes: Conjunctivae clear, non-icteric, EOMI Pulmonary: Intubated and ventilated Cardiovascular: Regular rate and rhythm, radial pulses 2+, non-edematous x4 extremities Abdomen: Wound vac in place, ileostomy pouch in place with small amount of bowel sweat Musculoskeletal: Range of motion grossly normal x4 extremities, no deformity x4 extremities Neurological: sedated Skin: Warm, dry, without jaundice Intake/Output Summary (Last 24 hours) at 03/11/2025 0809 Last data filed at 03/11/2025 0600 Gross per 24 hour Intake 2418.91 ml Output 1215 ml Net 1203.91 ml O2 Device: Endotracheal tube Ventilator Settings Vent Mode: PRVC-AC FiO2 (%): 40 % Resp Rate (Set): 20 Avea Vt (Set, L): 0.4 Liter PEEP/CPAP (cm H2O): (S) 10 cm H20 Insp Time (sec): 0.92 sec Trigger Sensitivity Flow (L/min): 1 L/min Trigger Sensitivity Pressure (cm H2O): 3 cm H2O Humidification: Heat and moisture exchanger Invasive Hemodynamic [place] Results from last 3 days Lab Units 03/11/25 0210 03/11/25 0037 03/10/25 1747 03/10/25 1316 03/10/25 0331 03/09/25 2255 03/09/25 1833 03/09/25 1041 03/09/25 0601 03/09/25 0325 03/08/25 2348 03/08/25 1710 03/08/25 1113 BUN mg/dL 29* -- -- -- 31* -- -- 30* -- 30* -- -- -- CREATININE mg/dL 0.99 -- -- -- 1.13* -- -- 1.09* -- 1.25* -- -- -- POTASSIUM mmol/L 3.9 4.0 4.1 4.2 4.5 4.5 4.5 4.9 4.9 5.0 4.7 4.4 3.7 CO2 mmol/L 23 -- -- -- 26 -- -- 23 -- 25 -- -- -- CHLORIDE mmol/L 109 -- -- -- 108 -- -- 109 -- 109 -- -- -- MAGNESIUM mg/dL 2.1 -- -- -- 2.2 -- -- 2.4 -- 1.9 -- -- -- AST U/L -- -- -- -- -- -- -- 33 -- -- -- -- -- ALT U/L -- -- -- -- -- -- -- 23 -- -- -- -- -- ALK PHOS U/L -- -- -- -- -- -- -- 38* -- -- -- -- -- Results from last 3 days Lab Units 03/11/2520903/10/25 03303/09/25 0325 03/08/25 1710 INR 1.2 1.4* 1.7* 1.6* PROTIME sec 13.4* 16.3* 19.0* 17.9* Results from last 3 days Lab Units 03/11/2520903/10/25 2030 03/10/25 1316 03/10/25 0331 03/09/25 2108 03/09/25 1041 03/09/25 0332 03/08/25 2151 03/08/25 1302 WBC x10E9/L 8.3 -- -- 10.3 -- 12.3* 15.5* -- -- HEMOGLOBIN g/dL 10.1* 10.4* 10.7* 11.3* 11.4* 11.6* 12.7 12.7 12.9 HEMATOCRIT % 30.2* 32.0* 33.1* 34.5* 34.3* 35.4 39.3 39.2 38.5 PLATELETS X10E9/L 89* -- -- 117* -- 140* 155 -- 187 MCV fL 80 -- -- 80 -- 80 81 -- -- MCH pg 26.8* -- -- 26.2* -- 26.2* 26.2* -- -- MCHC g/dL 33.4 -- -- 32.6 -- 32.7 32.4 -- -- RDW % 26.6* -- -- 24.1* -- 23.4* 22.5* -- -- MONO ABS MAN 10*3/uL -- -- -- -- -- 0.2 0.2 -- -- EOS ABS MAN 10*3/uL -- -- -- -- -- -- 0.0 -- -- Microbiology Results Procedure Component Value Units Date/Time Urine Culture Urine, Indwelling Catheter [[id number]] (Abnormal) (Susceptibility) Collected: 03/07/25 112 Specimen: Urine, Indwelling Catheter Updated: 03/10/25 1127 CULTURE RESULTS 50,000-100,000 CFU/mL Vancomycin resistant Enterococcus species Susceptibility Vancomycin resistant Enterococcus species Not Specified Ampicillin >=32.0 Resistant Daptomycin 2.5 Susceptible (dose dependent) Levofloxacin >=8.0 Resistant Linezolid 2.0 Susceptible Nitrofurantoin 64 Intermediate Vancomycin >=32.0 Resistant Glucose Results from last 7 days Lab Units 03/11/25 0320 03/11/25 0210 03/10/25 2032 03/10/25 1559 03/10/25 1000 03/10/25 0830 03/10/25 0337 03/10/25 0331 03/09/25 2254 03/09/25 1931 03/09/25 1549 03/09/25 1041 BEDSIDE GLUCOSE mg/dL 99 -- 114* 117* 117* 128* 82 -- 96 108* 114* -- GLUCOSE mg/dL -- 106* -- -- -- -- -- 86 -- -- -- 114* Lines/Drains CVC Triple Lumen 03/07/25 Right Internal Jugular (Active) Precautions Standard precautions;Hand hygiene;Gloves 03/08/25 0300 Lumen 1 Proximal 03/08/25 0300 Lumen 1 Status Blood return noted;Flushed;Infusing 03/08/25 0300 Lumen 2 Medial 03/08/25 0300 Lumen 2 Status Blood return noted;Flushed;Infusing 03/08/25 0300 Lumen 3 Distal 03/08/25 0300 Lumen 3 Status Blood return noted;Flushed;Infusing 03/08/25 0300 Site Assessment Clean;Dry;Intact 03/08/25 0000 Dressing Type Transparent;Occlusive 03/08/25 0300 Dressing Status Clean;Dry;Intact 03/08/25 0300 Dressing Intervention Initial dressing 03/08/25 0300 Line Necessity Peripherally incompatible solution 03/08/25 0300 Line Necessity Reviewed With cc 03/08/25 0300 Patient Tolerance of Line Care Tolerated well 03/08/25 0300 Central Line Dressing Change Due (Non-Gauze) 03/15/25 03/08/25 0000 Peripheral IV 03/05/25 Anterior;Left Forearm (Active) Line Status Infusing;Flushed 03/08/25 0300 Site Assessment Clean;Intact;Dry 03/08/25 0300 Dressing Type Transparent;Occlusive 03/08/25 0300 Dressing Status Intact;Clean;Dry 03/08/25 0300 Dressing Intervention Initial dressing 03/08/25 0300 Dressing Change Due (Non-Gauze) 03/12/25 03/05/25 0649 Peripheral IV 03/06/25 Anterior;Right Forearm (Active) Line Status Infusing;Flushed 03/08/25 0300 Site Assessment Clean;Dry;Intact 03/08/25 0300 Dressing Type Transparent;Occlusive 03/08/25 0300 Dressing Status Intact;Dry;Clean 03/08/25 0300 Dressing Intervention Initial dressing 03/08/25 0300 Dressing Change Due (Non-Gauze) 03/13/25 03/06/25 2105 Chest Tube 03/08/25 Left (Active) Function -20 cm H2O 03/08/25 0300 Air Leak No 03/08/25 0300 (1) Drainage Description Serosanguineous 03/08/25 0300 (1) Dressing Type Gauze;Occlusive 03/08/25 0300 (1) Dressing Status Clean;Dry;Intact 03/08/25 0300 (1) Dressing Intervention Initial dressing 03/08/25 0300 (1) Site Assessment Clean;Intact;Dry 03/08/25 0300 Output (mL) 20 mL 03/08/25 0600 Negative Pressure Wound Therapy 03/07/25 Surgical Quadrant;Mid Abdomen (Active) Assessed: Compressed 03/08/25 0300 Cycle Continuous 03/08/25 0300 Target Pressure (mmHg) 125 03/08/25 0300 Dressing Status Clean;Dry;Intact 03/08/25 0300 Dressing Changed New 03/08/25 0000 Output (mL) 200 mL 03/08/25 0600 NG/OG Tube 03/08/25 Left nostril (Active) Placement Verification External length measured 03/08/25 0300 Status Suction-low intermittent 03/08/25 0300 Tube Site Care Completed 03/08/25 0300 Secured at (cm) 55 cm 03/08/25 030 Securement Method Securing device (Describe) 03/08/25 0300 Dressing Status/Interventions Clean;Dry;Intact 03/08/25 030 Drainage Appearance Bile 03/08/25 0300 Urinary Catheter 03/06/25 Single lumen (Active) Catheter Status Patent 03/08/25 030 Site Assessment Clean;Skin intact 03/08/25 030 Collection Container Standard drainage bag/container 03/08/25 0300 Securement Method Right 03/08/25 0300 Tamper Evident Seal Intact Yes 03/08/25 030 Indication for Continuation Uro/jewel bearing turner surgical considerations 03/08/25 0000 Urine Color Yellow/straw 03/08/25 0300 Urine Appearance Clear 03/08/25 0300 Output (mL) 50 mL 03/08/25 0700 ETT 03/07/25 Cuffed;Inflated Oral (Active) Secured at (cm) 22 cm 03/08/25 030 Measured from Lips 03/08/25 0300 Secured Location Center 03/08/25 0200 Secured by Commercial tube du 03/08/25 0300 Cuff Pressure (cm H2O) 30 cm H2O 03/08/25 0200 Arterial Line 03/07/25 Left Radial (Active) Line Status Infusing;Blood return noted;Pulsatile blood flow;Flushed 03/08/25 030 Line Interventions Zeroed and calibrated;Leveled;Connections checked and tightened;Pressure bag maintained 03/08/25 030 Waveform Appropriate 03/08/25 030 Site Assessment Clean;Intact;Dry 03/08/25 030 Dressing Type Transparent;Occlusive 03/08/25 030 Dressing Status Clean;Dry;Intact 03/08/25 030 Dressing Intervention Initial dressing 03/08/25 0300 Color/Movement/Sensation Capillary refill less than 3 sec 03/08/25 0300 Patient Tolerance of Line Care Tolerated well 03/08/25 0300 Line Necessity Invasive hemodynamic monitoring 03/08/25 0300 Line Necessity Reviewed With cc 03/08/25 0300 Dressing Change Due (Non-Gauze) 03/15/25 03/08/25 0000 ACTIVE PROBLEM LIST: S/p cardiac arrest Malignant bowel obstruction s/p total colectomy and bilateral salpingo-oophorectomy Pulmonary embolism Multiple DVT Moderate left pneumothorax Blood loss anemia Acute Kidney Injury w/ concern for acute tubular necrosis Malignant Colorectal Cancer Bacterial Peritonitis Ovarian Cystic Lesion ASSESSMENT/PLAN: Caren Suarez is a 69 y.o. female who is s/p total colectomy and bilateral salpingo-oophorectomy for malignant bowel obstruction for known mucinous adenocarcinoma. 1. Neuro S/p cardiac arrest CT Head without contrast: No acute intracranial process. Hospital Meds: Sedation: fentanyl RASS Goal: -1 to 0 Analgesia: fentanyl Other: n/a Home Meds: N/a 2. Pulmonary Pulmonary embolism, multiple DVT - CTA Chest 03/08/25:Slightly decreased burden of right sided pulmonary emboli. No new emboli. Left chest tube, moderate left pneumothorax, significant subcutaneous emphysema, mild dependent edema and consolidation left lung. Vascular venous duplex 02/24/25 Acute femoropopliteal deep vein thrombosis, acute deep tibioperoneal vein thrombosis, acute deep calf muscle vein thrombosis - Vascular Surgery is consulted - Restarted on heparin Left chest tube, suction at 40, intermittent air leak - 30 cc output 03/10/25 CXR: Decreasing small left pneumothorax. Otherwise, stable chest. 03/10/25 CXR: Pneumothorax remains with a indwelling left chest tube. Pneumothorax is larger than theprior study currently approximately 17 mm at the left upper lobe. The amount of gas within the leftchest wall is increasing. 03/09/25 CXR: There is a 1 cm left apical pneumothorax. Sidehole of the left-sided chest tube is outside of the pleural space in the left lateral chest wall. Improved aeration of the left lung. 03/08/25 CXR: Left chest tube has been pulled back, with tip remaining in the hemithorax however sideport outside of the pleural space in the chest wall Breathing Support: ET tube, PRVC-AC Settings: FiO2 0.4, respiratory rate 20, Tidal volume 400 mL, PEEP 10 SpO2: 96% Continuous pulse oximetry Hospital Meds: None Home Meds: None 3. Cardiovascular S/p cardiac arrest, shock Hemodynamics: NSR Normotensive Pressors: None Goal MAP >65 Continuous cardiac monitoring Hospital Meds: Heparin SQH Home Meds: Unknown PMH: Hypertension, previous DVTs PSH: None known Code Status: Full 4. GI Malignant bowel obstruction s/p total colectomy and bilateral salpingo-oophorectomy Status post total colectomy, left in discontinuity, ABThera in place 03/07/25 Status post 2nd look and end ileostomy creation, wound vac in place 03/09/25 Diet: NPO, NG output 150cc Bowel Function: Await return of bowel function Hospital Meds: N/a Home Meds: None known 5. Renal/Genitourinary TASHA w/ concern for acute tubular necrosis - nephrology consult 03/09/25 Metabolic acidosis, resolved Lab Results Component Value Date SODIUM 140 03/11/2025 SODIUM 142 03/10/2025 SODIUM 139 03/09/2025 CL 109 03/11/2025 CL 108 03/10/2025 CL 109 03/09/2025 K 3.9 03/11/2025 K 4.0 03/11/2025 K 4.1 03/10/2025 CO2 23 03/11/2025 CO2 26 03/10/2025 CO2 23 03/09/2025 Electrolytes: Lab Results Component Value Date BUN 29 (H) 03/11/2025 BUN 31 (H) 03/10/2025 BUN 30 (H) 03/09/2025 CREATININE 0.99 03/11/2025 CREATININE 1.13 (H) 03/10/2025 CREATININE 1.09 (H) 03/09/2025 CALCIUM 7.4 (L) 03/11/2025 CALCIUM 7.9 (L) 03/10/2025 CALCIUM 7.8 (L) 03/09/2025 MG 2.1 03/11/2025 MG 2.2 03/10/2025 MG 2.4 03/09/2025 PHOSPHORUS 2.8 03/11/2025 PHOSPHORUS 3.7 03/10/2025 PHOSPHORUS 3.9 03/09/2025 Will replace electrolytes PRN per ICU protocol Fluid Balance: No maintenance IV fluids IV fluids/24H: 2.4L UOP/24 H: 1 L (0.5ml/kh/hr) Net Fluid/24H: +1.1 L Net Fluid Since admission: +9.65 L Strict monitoring of Ins and Outs Hospital Meds: none Home Meds: None known 6. Heme Blood loss anemia Labs: Lab Results Component Value Date HGB 10.1 (L) 03/11/2025 HGB 10.4 (L) 03/10/2025 HGB 10.7 (L) 03/10/2025 PLT 89 (L) 03/11/2025 PLT 117 (L) 03/10/2025 PLT 140 (L) 03/09/2025 Lab Results Component Value Date INR 1.2 03/11/2025 INR 1.4 (H) 03/10/2025 INR 1.7 (H) 03/09/2025 Type and Screen: A neg Blood Products Administered: 3U PRBC (03/08/25 at 0200) Will continue to monitor Hgb and transfuse PRN H&H q8h, stable 7. ID Leukocytosis Bacterial Peritonitis Ovarian Cystic Lesion - Infectious disease is onboard - Completed course of abx for peritonitis - Continue ceftriaxone and metronidazole empirically Tmax/24H: 36.9 Labs: Lab Results Component Value Date WBC 8.3 03/11/2025 WBC 10.3 03/10/2025 WBC 12.3 (H) 03/09/2025 Micro: Urine culture positive 50,000-100,0000 Enterococcus species Peritoneal fluid culture collected 02/28/25: [facility] Hospital Meds: Antibiotics: rocephin and flagyl 8. Endocrine Lab Results Component Value Date GLU 99 03/11/2025 GLU 106 (H) 03/11/2025 GLU 114 (H) 03/10/2025 Goal Blood Glucose <180 mg/dL Hospital Meds: ISS PMH: none known 9. Musculoskeletal PMH: n/a PSH: n/a PT/OT when able 10. Prophylaxis Respiratory: none GI: protonix DVT: SCD Cuffs, heparin 11. Lines PIV x2 L radial A line Camara Right IJ CVC ETT tube L chest tube NG tube Disposition: Critical, ICU Sarath Hoover MD General Surgery Resident, PGY1 SICU Cosigned by Orion Damico MD at 03/11/2025 8:35 AM EDT Associated attestation - Orion Damico MD - 03/11/2025 8:35 AM EDT Attending Attestation: I saw the patient. I participated and was physically present during the critical/fuentes portions of the service. I was directly involved in the management and treatment plan of the patient. I reviewed the resident's note. Additional Notes/Findings: <<<<<<<<<<<<<<<<<< Surgical Critical Care Attending >>>>>>>>>>>>>>>>>>>>>>>> I have seen and evaluated the patient, and have also reviewed the history above. Patient is critically ill and has a high probability of imminent or life- threatening deterioration, that requires highcomplexity decision making and failure to do so may cause further life threatening deterioration. Ihave repeated and performed the fuentes portions of the physical exam and concur with the resident's/advanced practice provider findings with the exception of the below additions. I have reviewed all pertinent laboratory findings and imaging reports/films. We have discussed the patient's status and theappropriate treatment options/plan on the day of the encounter. I agree with the plan as noted above except for changes below. Critical care time spent with the patient today = 32 minutes. Diagnoses: Acute respiratory failure with hypoxia Cardiac arrest Acute blood loss anemia Hypocalcemia Pulmonary embolism DVT TASHA Hypoalbuminemia sepsis Plan: Patient remains intubated at this time. We will continue ventilator bundle which includes but not limited to, head of bed elevated as tolerated, good oral care, clean ventilator circuit per guidelines. Will continue to wean ventilator as tolerated for possible extubation. MODE ac PEEP 10 FiO2 40 EXTUBATION PARAMETERS Not a candidate need to wean PEEP more. Sedation holiday Off vasopressors now 7.46/34/100/99 Heparin drip started yesterday. HgB stable since On ceftriaxone and flagyl. ID involved. Nephrology following. Creatinine normal. Appreciate their help. Hopefully can diurese more today ifthey think appropriate I and O +1.1L/24 hours and +9.6L/HS CXR with resolution of pneumothorax Versed drip off at this time. Still on fentanyl Platelets lower today. 50% drop but was dropping before the heparin started. Will consider PF4 check Orion Damico MD, FACS [facility] General Surgeons Minimally Invasive Robotic Surgery Surgical Critical Care Trauma Office: [phone] Please feel free to call with questions at anytime. * Dariana Guerrero MD - 03/10/2025 12:02 PM EDT Images from the original note were not included. Colorectal Surgery Daily Progress Note Patient Name: Caren Suarez Admit Date: 02/25/2025 Length of Stay: 13 Days Admitting Physician: Deena Branch MD Subjective: Patient is postoperative day 3 from exploratory laparotomy, total colectomy, left in discontinuity,and BSO and post operative day 1 from abdominal washout, end ileostomy creation, and abdominal closure. Weaned off of vasopressin overnight; no longer requiring pressors. Pneumothorax on left is slightlylarger today at 1.7 cm. Patient opens eyes and grimaces with palpation of abdomen. Objective: Vitals: 03/10/25 1132 BP: 112/72 Pulse: 83 Resp: 20 Temp: 36.7 ??C (98.1 ??F) SpO2: 98% Temp: [36 ??C (96.8 ??F)-36.9 ??C (98.4 ??F)] 36.7 ??C (98.1 ??F) Pulse: [62-91] 83 Resp: [17-24] 20 BP: (96-114)/(56-72) 112/72 Arterial Line BP: (68-167)/(40-79) 82/58 FiO2 (%): [40 %] 40 % SpO2: [94 %-98 %] 98 % O2 Device: Endotracheal tube Allergies Allergen Reactions Penicillin Intake/Output last 3 shifts: I/O last 3 completed shifts: In: 3952.1 [I.V.:3309.7; IV Piggyback:642.5] Out: 2965 [Urine:2145; Emesis/NG output:250; Drains:400; Blood:25; Chest Tube:145] Intake/Output this shift: I/O this shift: In: - Out: 170 [Urine:170] Dietary Orders (From admission, onward) Start Ordered 03/09/251856 Adult diet NPO; Except medications Diet effective now Question Answer Comment Diet Type: NPO NPO Except: Except medications 03/09/251855 Physical Exam General: Remains intubated, requiring vasopressors HENT: Head atraumatic, normocephalic, external ears and nose are normal Eyes: Conjunctivae clear, non-icteric, EOMI Pulmonary: On mechanical ventilator, PRVC AC 20 / 400 / 12 / 40% Cardiovascular: tachycardic, requiring vasopressors Abdomen: Soft, non-distended, wound VAC in place draining serosanguineous fluid Musculoskeletal: Range of motion grossly normal x4 extremities, no deformity x4 extremities Neurological: Motor and sensation grossly intact Skin: Warm, dry, without jaundice 24 hour urine output: 1895 mL 24 hour wound VAC output: 50 mL 24 hour ileostomy output: 0 mL Laboratory Data: Lab Results Component Value Date WBC 10.3 03/10/2025 HGB 11.3 (L) 03/10/2025 HCT 34.5 (L) 03/10/2025 MCV 80 03/10/2025 PLT 117 (L) 03/10/2025 Lab Results Component Value Date GLU 117 (H) 03/10/2025 CALCIUM 7.9 (L) 03/10/2025 K 4.5 03/10/2025 CO2 26 03/10/2025 CL 108 03/10/2025 BUN 31 (H) 03/10/2025 CREATININE 1.13 (H) 03/10/2025 No results found for: AMYLASE No results found for: LIPASE Lab Results Component Value Date ALT 23 03/09/2025 AST 33 03/09/2025 ALKPHOS 38 (L) 03/09/2025 Lab Results Component Value Date INR 1.4 (H) 03/10/2025 INR 1.7 (H) 03/09/2025 INR 1.6 (H) 03/08/2025 PROTIME 16.3 (H) 03/10/2025 PROTIME 19.0 (H) 03/09/2025 PROTIME 17.9 (H) 03/08/2025 cefTRIAXone (ROCEPHIN) IV, 2,000 mg, intravenous, Q24H chlorhexidine, 15 mL, mouth/throat, BID folic acid, 1 mg, oral, Daily insulin lispro, 2-10 Units, subcutaneous, Q6H metroNIDAZOLE, 500 mg, intravenous, Q12H pantoprazole, 40 mg, intravenous, Q12H calcium gluconate OR calcium gluconate OR calcium gluconate dextrose dextrose 5 % in water dextrose 50 % in water (D50W) glucagon (human recombinant) heparin (porcine) hydrALAZINE magnesium sulfate OR magnesium sulfate midazolam ondansetron potassium chloride OR potassium chloride potassium chloride in water OR potassium chloride in water sodium phosphate IV OR sodium phosphate IV - central line OR sod phos di, mono-K phos mono sodium chloride sodium chloride sodium chloride 0.9 % Imaging: X-ray chest 1 view Single view chest XR CHEST 1 VW History: intubated Comparison: March 09 Impression: * Pneumothorax remains with a indwelling left chest tube. Pneumothorax is larger than the prior study currently approximately 17 mm at the left upper lobe. The amount of gas within the left chest wall is increasing. Minimal atelectasis at the lung bases. Grossly no effusion * Tubes and lines are unchanged Finalized by Oli Salvador MD on 03/10/2025 6:02 AM Assessment: Caren Suarez is a 69 y.o. 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 Patient's surgery was complicated by obstructive shock and cardiac collapse resulting in need for ACLS. [facility] Patient subsequently went for 2nd loop laparotomy, fascial closure, ileostomy creation on 03/09/2025. 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 2.2 cm right interpolar renal mass concerning for RCC Right-sided PE Left pneumothorax Multiple DVT Pulmonary nodules likely metastasis Obstructive shock from PE on vasopressors Status post cardiac arrest Acute blood loss anemia Coagulopathy Metabolic acidosis Acute respiratory failure requiring mechanical ventilation Plan: NPO, NGT to LIWS Await return of bowel function Ok for heparin drip Antibiotics per ID No further surgical intervention planned Wean ventilator as able Monitor pneumothorax, chest tube management per critical care Appreciate nephrology recommendations Appreciate oncology recommendations Appreciate palliative medicine assistance with goals of care in regards to her cancer Appreciate remainder of care per critical care team Dariana Guerrero MD General Surgery Resident, PGY-5 Colorectal Surgery 6a - 6p Pager: [phone] 6p - 6a Pager: [phone] Cosigned by Reyna Brewer MD at 03/10/2025 3:42 PM EDT Associated attestation - Reyna Brewer MD - 03/10/2025 3:42 PM EDT Attending Attestation: I saw the patient. I performed the critical/fuentes portions of the service. I was directly involved inthe management and treatment plan of the patient. I reviewed the resident's note. Additional Notes/Findings: Patient remains in critical condition and not significantly responsive. * Ernie Elizondo APRN-DUYEN - 03/10/2025 11:03 AM EDT Images from the original note were not included. [facility] Hematology and Oncology - Daily Progress Note 03/10/2025, 11:03 AM Impression/Plan: Metastatic Colorectal Cancer -Initially favoring ovarian primary given clinical pattern, but now with pathology positive for colorectal primary -Initial CT a/p showed large partially solid and partially cystic lesion in the right adnexa measuring 16 cm x 12 cm x 11 cm + lower anterior abdominal soft tissue nodules + 2.5 cm solid R renal lesion + diffuse intraperitoneal fluid -CTA chest revealed numerous pulmonary nodules -[id number], OB0=274, CEA=24.6, CA 19-9 WNL -TVUS noted an 18.2 cm cystic and solid lesion in the pelvis with ascites and peritoneal nodularity -S/p IR performed paracentesis and biopsy of soft tissue nodules 02/28 -Ascites fluid non-diagnostic -Abdominal soft tissue biopsy pathology positive for mucinous adenocarcinoma consistent with colorectal origin -Will need tor recover from surgery before she will be considered for systemic cancer treatments -Palliative medicine consult for assistance with pain. GOC discussions may also be needed in the near future pending her clinical course -She will follow up with Dr. Romero after discharge for further management Malignant Bowel Obstruction, Abdominal Pain/Distention -Repeat CT a/p 03/06 shows Colonic dilatation with transition at the sigmoid junction. Concern for obstruction from the known large rectal mass vs multicentric colorectal carcinoma + Similar appearanceof a 20 cm cystic pelvic lesion, recently characterized as rectal adenocarcinoma + Peritoneal carcin omatosis -Now s/p exploratory laparotomy with colectomy, bilateral salpingo-oophorectomy 03/07--> s/p 2nd look exp lap with washout, SBR, end ileostomy, and wound vac 03/09 -Patient coded in surgery, and now remains in ICU on ventilator support -General surgery following Renal Mass, Hydroureteronephrosis, TASHA, hyperuricemia -CT imaging shows 2.5 cm R interpolar renal mass concerning for RCC + Mild right hydroureteronephrosis, likely secondary to pelvic mass effect on the ureter -Urology, nephrology following PE/DVT -Likely provoked by metastatic malignancy -CTA shows Moderate right sided pulmonary emboli without evidence of right heart strain -Dopplers revealing acute R femoropopliteal, deep tibioperoneal, and deep calf muscle DVT + L deep calf muscle DVT -On heparin gtt, likely transition to DOAC prior to discharge pending clinical course -Repeat CTA chest 03/08 showed decreased burden of R pulmonary embolus Supratherapeutic INR -In setting of advanced metastatic disease, Eliquis therapy, acute infection -INR corrected s/p preoperative Vit K +/- FFP reversal Anemia -Largely multifactorial due to severe B12 deficiency, folate deficiency, Iron deficiency anemia in setting of vaginal bleeding d/t #1, acute infection, metastatic GI malignancy, renal insufficiency, surgical blood loss -Hgb=11.3(11.4, 12.7, 12.7) microcytic -Last transfused 03/08 -S/p IM B12 & IV iron -Continue folic acid -No hemolysis -EGD/colonoscopy were planned, but not completed as patient could not tolerate bowel prep, likely due to bowel obstruction as discussed above -Transfuse for hgb<7 -Have arranged for follow up with Dr. Romero UTI -On IV antibiotics -As per other services Respiratory Failure, Shock, S/p Cardiac Arrest -Remains on vent, currently off pressors -As per crit care team Continue management of other medical problems as per appropriate services. Patient discussed with Dr. Jean. Please call with questions. Interval History: Patient seen and examined at bedside. She is on vent, does not respond to voice. I did not attempt to wake her with tactile stimuli. Presently off pressor support. Unable to obtain subjective information, but does not appear to be in any distress. No visible bleeding. No fevers. VSS. Physical Examination : Temp: [35.7 ??C (96.3 ??F)-36.9 ??C (98.4 ??F)] 36.8 ??C (98.2 ??F) Pulse: [57-91] 76 Resp: [17-24] 20 BP: (96-114)/(56-67) 99/59 Arterial Line BP: (68-167)/(40-79) 82/58 FiO2 (%): [40 %] 40 % SpO2: [94 %-98 %] 97 % O2 Device: Endotracheal tube Temperature Range: Temp: 36.8 ??C (98.2 ??F) Temp Av.7 ??C (98.1 ??F) Min: 35.7 ??C (96.3 ??F)Max: 36.9 ??C (98.4 ??F) Weight change: Physical Exam Vitals and nursing note reviewed. Constitutional: General: She is not in acute distress. Appearance: She is normal weight. She is ill-appearing HENT: Head: Normocephalic and atraumatic. Right Ear: External ear normal. Left Ear: External ear normal. Nose: Nose normal. Mouth/Throat: ET airway, NGT Eyes: General: No scleral icterus. Extraocular Movements: Extraocular movements intact. Pupils: Pupils are equal, round Cardiovascular: Rate and Rhythm: Normal rate and regular rhythm. Pulmonary: Effort: Pulmonary effort is normal. No respiratory distress Findings: Intubated. L chest tube Abdominal: General: There is distension. Tenderness: There is abdominal tenderness. There is guarding. Musculoskeletal: Right lower leg: +2 edema Left lower leg: +2 edema Skin: General: Skin is warm and dry. Coloration: Skin is not jaundiced. Findings: Abdominal incision, wound vac Neurological: General: sedated, unresponsive to voice Psychiatric: Mood and Affect: CHAN Laboratory data: Results from last 7 days Lab Units 03/10/25 03303/09/25 2108 03/09/25 10403/09/25 033 WBC x10E9/L 10.3 -- 12.3* 15.5* HEMOGLOBIN g/dL 11.3* 11.4* 11.6* 12.7 HEMATOCRIT % 34.5* 34.3* 35.4 39.3 PLATELETS X10E9/L 117* -- 140* 155 MCV fL 80 -- 80 81 Results from last 7 days Lab Units 03/10/25 03303/09/2532403/08/25215003/08/25170903/08/25 0032 03/07/25 1940 PROTIME sec 16.3* 19.0* -- 17.9* < > 21.2* INR 1.4* 1.7* -- 1.6* < > 1.9* APTT sec -- -- 136* 41* -- 32 < > = values in this interval not displayed. Results from last 7 days Lab Units 03/10/25 1000 03/10/25 0830 03/10/25 0337 03/10/2533003/09/25 2255 03/09/25 1931 03/09/25 1833 03/09/25 1549 03/09/25 1041 03/09/25 03303/09/25 0325 03/08/25 19203/08/25 17103/08/25 0043 03/08/25 0032 SODIUM mmol/L -- -- -- 142 -- -- -- -- 139 -- 140 -- -- < > 138 PORTABLE SODIUM -- -- -- -- -- -- -- -- -- -- -- -- -- < > -- POTASSIUM mmol/L -- -- -- 4.5 4.5 -- 4.5 -- 4.9 < > 5.0 < > 4.4 < > 3.5 POC POTASSIUM -- -- -- -- -- -- -- -- -- -- -- -- -- < > -- CHLORIDE mmol/L -- -- -- 108 -- -- -- -- 109 -- 109 -- -- < > 105 CO2 mmol/L -- -- -- 26 -- -- -- -- 23 -- 25 -- -- < > 19* BUN mg/dL -- -- -- 31* -- -- -- -- 30* -- 30* -- -- < > 29* CREATININE mg/dL -- -- -- 1.13* -- -- -- -- 1.09* -- 1.25* -- -- < > 1.18* CALCIUM mg/dL -- -- -- 7.9* -- -- -- -- 7.8* -- 8.1* -- -- < > 8.3* ALK PHOS U/L -- -- -- -- -- -- -- -- 38* -- -- -- -- -- 37* ALT U/L -- -- -- -- -- -- -- -- 23 -- -- -- -- -- 33* AST U/L -- -- -- -- -- -- -- -- 33 -- -- -- -- -- 108* POC GLUCOSE -- -- -- -- -- -- -- -- -- -- -- -- -- < > -- BEDSIDE GLUCOSE mg/dL 117* 128* 82 -- -- < > -- < > -- < > -- < > -- < > -- GLUCOSE mg/dL -- -- -- 86 -- -- -- -- 114* -- 108* -- -- < > 258* INR -- -- -- 1.4* -- -- -- -- -- -- 1.7* -- 1.6* < > 2.3* MAGNESIUM mg/dL -- -- -- 2.2 -- -- -- -- 2.4 -- 1.9 -- -- < > 2.1 < > = values in this interval not displayed. VITAMIN B12: Lab Results Component Value Date [id number] 110 (L) 02/26/2025 FOLATE: Lab Results Component Value Date FOLATE 3.3 (L) 02/26/2025 IRON: Lab Results Component Value Date IRON 12 (L) 02/26/2025 TIBC 321 02/26/2025 FERRITIN 78 02/26/2025 Medications: cefTRIAXone (ROCEPHIN) IV, 2,000 mg, intravenous, Q24H chlorhexidine, 15 mL, mouth/throat, BID folic acid, 1 mg, oral, Daily insulin lispro, 2-10 Units, subcutaneous, Q6H metroNIDAZOLE, 500 mg, intravenous, Q12H pantoprazole, 40 mg, intravenous, Q12H ELLIOTT Christina 03/10/25 1115 Cosigned by Mallory Jean MD at 03/13/2025 7:05 PM EDT * Nuvia Flannery, ELLIOTT - 03/10/2025 9:20 AM EDT Images from the original note were not included. Division of Infectious Diseases Progress note Academic Team Please contact us via Cupple chat. After hours, call [phone] Patient name: Caren Suarez Patient Today's Date and Time: 03/10/2025, 9:20 AM Admission Date: 02/25/2025 Primary Care Physician: Riya Diego MD Impression and Recommendations: Leukocytosis Bacterial Peritonitis Ovarian Cystic Lesion CT a/p demonstrated large partially solid and partially cystic lesion in the R adnexa measuring 16 x 12 x 11 cm and lower anterior abdominal soft tissue nodules, 2.5 cm solid R renal lesion and diffuse intraperitoneal fluid S/P paracentesis 02/28/2025 - nucleated cells are elevated at 1900 with neutrophil predominance (60%) Peritoneal fluid culture is negative to date Abdominal soft tissue mass 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 Concern for obstructionfrom the known large rectal mass vs multicentric colorectal carcinoma Status post exp lap, total colectomy, bilateral salpingo-oopherectomy, vac placemement 03/07 Status post OR today for creation of ileostomy and abdominal closure General surgery has been consulted Intra operative cardiac arrest Acute respiratory failure Remains intubated on the vent CTA done today Vent management per critical care Urinary retention Positive urine culture Patient was retaining urine and camara place last week. Urine culture +enterococcus. Patient was asymptomatic No fever or leukocytosis. Low suspicion for uti at this time Monitor off treatment TASHA Nephrology following Right hydronephrosis Likely secondary to pelvic mass effect on ureter Urology following Acute PE, with R heart strain Numerous pulmonary nodules likely metastasis Subjective Interval History: Patient seen and examined at bedside. Remains intubated on vent. On pressors. Discussed with nursing Objective Physical Examination : BP 105/57 Comment: Simultaneous filing. User may not have seen previous data. Pulse 83 Temp 36.7 ??C (98.1 ??F) Resp 17 Ht 157.5 cm (5' 2.01 ) Wt 84.4 kg (186 lb 1.1 oz) SpO2 96% BMI 34.02 kg/m?? Temperature Range: Temp: 36.7 ??C (98.1 ??F) Temp Av.4 ??C (97.5 ??F) Min: 35 ??C (95 ??F) Max: 36.9 ??C (98.4 ??F) General Appearance: intubated on vent and in no apparent distress Eyes: Sclera anicteric; conjunctivae pink ENT: ETT in place Neck: Supple, without lymphadenopathy. Pulmonary/Chest: Clear to auscultation, without wheezes, rales, or rhonchi. Left sided chest tube in place Cardiovascular: Regular rate and rhythm without murmurs, rubs, or gallops. Abdomen: distended. Soft. Vac in place Extremities: No cyanosis, clubbing, , or effusions. +BLE edema Neurologic: Bulk and tone are normal. No atrophy is noted. Skin: No rash or lesions. Laboratory data: I have independently reviewed the following labs: Results from last 7 days Lab Units 03/10/2533003/09/25 2108 03/09/25 1041 03/09/25 0332 WBC x10E9/L 10.3 -- 12.3* 15.5* HEMOGLOBIN g/dL 11.3* 11.4* 11.6* 12.7 HEMATOCRIT % 34.5* 34.3* 35.4 39.3 MCV fL 80 -- 80 81 PLATELETS X10E9/L 117* -- 140* 155 EOS ABS MAN 10*3/uL -- -- -- 0.0 BASOS ABS MAN 10*3/uL -- -- -- 0.0 Results from last 7 days Lab Units 03/10/2533003/09/25 2255 03/09/25 1833 03/09/25 1041 03/09/25 0601 03/09/25 0325 03/08/25 0043 03/08/25 0032 SODIUM mmol/L 142 -- -- 139 -- 140 < > 138 PORTABLE SODIUM -- -- -- -- -- -- < > -- POTASSIUM mmol/L 4.5 4.5 4.5 4.9 < > 5.0 < > 3.5 POC POTASSIUM -- -- -- -- -- -- < > -- CHLORIDE mmol/L 108 -- -- 109 -- 109 < > 105 CO2 mmol/L 26 -- -- 23 -- 25 < > 19* BUN mg/dL 31* -- -- 30* -- 30* < > 29* CREATININE mg/dL 1.13* -- -- 1.09* -- 1.25* < > 1.18* CALCIUM mg/dL 7.9* -- -- 7.8* -- 8.1* < > 8.3* ALBUMIN g/dL -- -- -- 2.5* -- -- -- 1.9* ALK PHOS U/L -- -- -- 38* -- -- -- 37* ALT U/L -- -- -- 23 -- -- -- 33* AST U/L -- -- -- 33 -- -- -- 108* < > = values in this interval not displayed. Results from last 7 days Lab Units 03/06/25 1241 COLOR UA Yellow TURBIDITY Hazy* SPECIFIC GRAVITY, URINE 1.023 NITRITE UA Negative PH URINE 6.0 LEUKOCYTE ESTERASE Small* PROTEIN 50 mg/dL* KETONES (URINE) 20 mg/dL* UROBILINOGEN <1.1 eu/dL BLOOD Large* R. B. CELLS 197* WBC UA 25* Echo complete W/O contrast Result Date: 02/26/2025 Left Ventricle: Left ventricle is small. Systolic function is normal with an ejection fraction of 60-65%. No segmental wall motion abnormalities. Grade I diastolic dysfunction (impaired relaxation) is present. Lateral E' is 11.70 cm/s. Medial E' is 7.94 cm/s. Right Ventricle: Right ventricular size appears normal. The right ventricular basal diameter is 22.0 mm. Systolic function is normal. Aortic Valve: There is trace to mild regurgitation. There is no evidence of aortic valve stenosis. Imaging Studies: Procedure Component Value Units Date/Time X-ray chest 1 view [[id number]] Collected: 03/10/25557 Order Status: Completed Updated: 03/10/25602 Narrative: Single view chest XR CHEST 1 VW History: intubated Comparison: March 09 Impression: * Pneumothorax remains with a indwelling left chest tube. Pneumothorax is larger than the prior study currently approximately 17 mm at the left upper lobe. The amount of gas within the left chest wall is increasing. Minimal atelectasis at the lung bases. Grossly no effusion * Tubes and lines are unchanged Finalized by Oli Salvador MD on 03/10/2025 6:02 AM I have personally reviewed this study. Cultures: Microbiology Results Procedure Component Value Units Date/Time Urine Culture Urine, Indwelling Catheter [[id number]] (Abnormal) Collected: 03/07/25 1122 Specimen: Urine, Indwelling Catheter Updated: 03/08/25 0949 CULTURE RESULTS 50,000-100,000 CFU/mL Enterococcus species Medications: cefTRIAXone (ROCEPHIN) IV, 2,000 mg, intravenous, Q24H chlorhexidine, 15 mL, mouth/throat, BID folic acid, 1 mg, oral, Daily insulin lispro, 2-10 Units, subcutaneous, Q6H metroNIDAZOLE, 500 mg, intravenous, Q12H pantoprazole, 40 mg, intravenous, Q12H Thank you for allowing us to participate in the care of this patient. Please call with questions. - ELLIOTT RENDON 03/10/25 9:20 AM ELLIOTT Rendon 03/09/25 1449 ELLIOTT Rendon 03/10/25 1331 * Brenda Hayes MD - 03/10/2025 9:09 AM EDT Images from the original note were not included. [facility] Artur Small [facility] Nephrology Consultation Note Patient Name: Caren Suarez : 1955 Date of Service: 03/10/25 PCP: Riya Diego MD Attending Physician: Ghassan Castillo MD Admission Date: 02/25/2025 Length of stay: LOS: 13 days Chief complaint. No chief complaint on file. Reason for Consult: Acute Kidney Injury Assessment and Plan. 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 She reports having a hard time breathing and a cough that went away ( she has had a hard time breathing and had a cough but it went away ). She had been treated by her PCP with steroids and antibiotics without improvement. An outpatient CT abdomen/pelvis on 02/24/2025 revealed a large right adnexal mass, a solid right renal lesion, and likely metastases to the lungs and abdomen. Venous duplex showed bilateral DVTs. She was transferred from [place] to [facility] for further evaluation and management. In the emergency department, she was started on a heparin drip. Workup upon admission included a CTA chest on 02/25/2025, which confirmed moderate right-sided pulmonary emboli without right heart strain. She is currently being treated for a urinary tract infection and bacterial peritonitis with IV Rocephin and Flagyl, with Infectious Disease on board. Nephrology consultation was requested for acute kidney injury. Assessment Acute Kidney Injury, likely multifactorial with hemodynamic and prerenal components, with concern for acute tubular necrosis (ATN). Baseline creatinine is approximately 0.9 mg/dL. The TASHA is in the setting of sepsis, treatment for bacterial peritonitis, and obs uropathy , There was contrast exposure on 02/24/2025. Right hydrnephrosis, 2.2 cm right renal mass lesion Urology evaluated the patient Mild hyponatremia on initial evaluation. Metabolic acidosis on initial evaluation. Volume Status: Euvolemic , possibly on low side Hypertension: Stable, though has been on the higher side. Hemodynamics: Echocardiogram on 02/26/2025 showed a normal LVEF of 60-65% with Grade I diastolic dysfunction and no evidence of right heart strain. Anemia Most recent hemoglobin is 10.8 g/dL. Sepsis secondary to bacterial peritonitis and UTI. 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 ? Rectal ca Acute pulmonary embolism and bilateral DVT. Malignant Bowel obstruction , patient is status post exploratory laparotomy, total colectomy, left in discontinuity, and BSO on 03/07/2025 , repeat Second Look laparotomy and ileostomy creation on 03/09/2025 Cardiac arrest intraoperatively, 03/07/2025 needing ACLS. Ventilator dependent respiratory failure postoperatively Plan Patient is significantly hypervolemic, we will give 1 dose of Lasix today, we will discuss with surgery regarding decreasing infusion rate for fluids. Renal function stable, continue to monitor Vasopressor , ventilator support per critical Care Strict ins and outs / accurate documentation of urine out put / daily weights and Bladder scan Q12 Avoid nephrotoxins, avoid contrast exposure unless absolutely necessary, avoid hemodynamic instability Dose all medications to GFR Monitor Renal Chem panel daily in AM Thank you for this consultation, we will follow along with you regarding care of this patient whilethe patient is here in the hospital, please call if you have any questions or concerns. BRENDA HAYES MD on 03/10/2025 at 9:09 AM [facility] [email or web address] Schedule : See Epic on-call schedule for [facility] ( [facility] ) Nephrology Working Hours : Epic chat during working hours, if no response please use on- call physician reach out as below After Hours : Answering service contact : [phone] Office Phone number: [phone] Subjective Patient seen at bedside, she is status post surgery Currently on ventilator Edema getting worse Urine output decreasing Past Medical History: Diagnosis Date Deep vein thrombosis (CMS-HCC) No past surgical history on file. Family History Problem Relation Age of Onset Breast cancer Neg Hx Social History Socioeconomic History Marital status: Single Spouse name: Not on file Number of children: Not on file Years of education: Not on file Highest education level: Not on file Occupational History Not on file Tobacco Use Smoking status: Former Types: Cigarettes Smokeless tobacco: Never Substance and Sexual Activity Alcohol use: Never Drug use: Never Sexual activity: Not on file Other Topics Concern Not on file Social History Narrative Not on file Social Drivers of Health Financial Resource Strain: Not on file Food Insecurity: No Food Insecurity (02/25/2025) Hunger Screening Food Insecurity - Worry: Never True Food Insecurity - Inability: Never True Transportation Needs: No Transportation Needs (02/25/2025) PRAPARE - Transportation Lack of Transportation (Medical): No Lack of Transportation (Non-Medical): No Physical Activity: Not on file Stress: Not on file Social Connections: Not on file Interpersonal Safety: Not At Risk (02/25/2025) Humiliation, Afraid, Rape, and Kick questionnaire Fear of Current or Ex-Partner: No Emotionally Abused: No Physically Abused: No Sexually Abused: No Housing Instability: Low Risk (02/25/2025) Housing Instability Housing Instability: No Prior to Admission medications Medication Sig Start Date End Date Taking? Authorizing Provider apixaban (ELIQUIS) 5 mg tablet Take 2 tablets (10 mg total) by mouth 2 (two) times a day for 7 days, THEN 1 tablet (5 mg total) 2 (two) times a day for 30 days. 03/05/25 04/11/25 Eleni Harding APRN-DUYEN Allergies Allergen Reactions Penicillin Physical Exam: VITALS BP 105/57 Comment: Simultaneous filing. User may not have seen previous data. Pulse 83 Temp 36.7 ??C (98.1 ??F) Resp 17 Ht 157.5 cm (5' 2.01 ) Wt 84.4 kg (186 lb 1.1 oz) SpO2 96% BMI 34.02 kg/m?? Wt Readings from Last 3 Encounters: 03/09/25 84.4 kg (186 lb 1.1 oz) 02/24/25 74.4 kg (164 lb) BMI: Body mass index is 34.02 kg/m??. I/O (24 Hours) Intake/Output Summary (Last 24 hours) at 03/10/2025 09 Last data filed at 03/10/2025 0600 Gross per 24 hour Intake 2675.11 ml Output 2224 ml Net 451.11 ml General: Patient is currently intubated, sedated HEENT: Atraumatic, normocephalic. Anicteric sclera. [place] and moist oral mucosa. Neck supple. No JVD. Chest: Bilateral air entry, clear to auscultation, no wheezing, rhonchi or rales. Cardiovascular: RRR, S1S2, no murmur, rub or gallop. No lower extremity edema. Abdomen: Postoperative, soft Musculoskeletal: No cyanosis or clubbing. No edema Integumentary: [place], warm and dry. Free from rash or lesions. CARBIDE GRINDER: Patient is currently intubated, sedated, examination grossly nonfocal, full neurological examination could not be done due to clinical condition Medications Scheduled Meds: cefTRIAXone (ROCEPHIN) IV, 2,000 mg, intravenous, Q24H chlorhexidine, 15 mL, mouth/throat, BID folic acid, 1 mg, oral, Daily insulin lispro, 2-10 Units, subcutaneous, Q6H metroNIDAZOLE, 500 mg, intravenous, Q12H pantoprazole, 40 mg, intravenous, Q12H Continuous Infusions: dextrose 5 % in water, 100 mL/hr D5 % and lactated ringer's, 100 mL/hr, Last Rate: 100 mL/hr (03/10/25 050) fentaNYL, 25-200 mcg/hr, Last Rate: 100 mcg/hr (03/10/25 050) heparin, 300-3,500 Units/hr, Last Rate: Stopped (03/08/252241) midazolam, 0.5-7 mg/hr, Last Rate: 0.5 mg/hr (03/10/25 050) sodium chloride 0.9 %, 20 mL/hr, Last Rate: 50 mL/hr (03/09/25 08) sodium chloride 0.9 %, 3 mL/hr, Last Rate: 3 mL/hr (03/10/25 050) PRN Meds: calcium gluconate OR calcium gluconate OR calcium gluconate dextrose dextrose 5 % in water dextrose 50 % in water (D50W) glucagon (human recombinant) heparin (porcine) hydrALAZINE magnesium sulfate OR magnesium sulfate midazolam ondansetron potassium chloride OR potassium chloride potassium chloride in water OR potassium chloride in water sodium phosphate IV OR sodium phosphate IV - central line OR sod phos di, mono-K phos mono sodium chloride sodium chloride sodium chloride 0.9 % Results Review Renal Chemistry Results from last 7 days Lab Units 03/10/25 0331 03/09/25 2255 03/09/25 1833 03/09/25 1041 03/09/25 0601 03/09/25 0325 03/08/25 1113 03/08/25 0455 03/08/25 0043 03/08/25 0032 SODIUM mmol/L 142 -- -- 139 -- 140 -- 138 -- 138 PORTABLE SODIUM mmol/L -- -- -- -- -- -- -- -- 137 -- POTASSIUM mmol/L 4.5 4.5 4.5 4.9 4.9 5.0 < > 4.2 -- 3.5 POC POTASSIUM mmol/L -- -- -- -- -- -- -- -- 3.4* -- CHLORIDE mmol/L 108 -- -- 109 -- 109 -- 106 -- 105 CO2 mmol/L 26 -- -- 23 -- 25 -- 21* -- 19* BUN mg/dL 31* -- -- 30* -- 30* -- 28* -- 29* CREATININE mg/dL 1.13* -- -- 1.09* -- 1.25* -- 1.07* -- 1.18* CALCIUM mg/dL 7.9* -- -- 7.8* -- 8.1* -- 8.4* -- 8.3* MAGNESIUM mg/dL 2.2 -- -- 2.4 -- 1.9 -- 2.0 -- 2.1 PHOSPHORUS mg/dL 3.7 -- -- 3.9 -- 3.8 -- -- -- 5.4* < > = values in this interval not displayed. Hepatic: Lab Results Component Value Date AST 33 03/09/2025 AST 108 (H) 03/08/2025 AST 21 02/24/2025 ALT 23 03/09/2025 ALT 33 (H) 03/08/2025 ALT 15 02/24/2025 ALKPHOS 38 (L) 03/09/2025 ALKPHOS 37 (L) 03/08/2025 ALKPHOS 105 02/24/2025 BNP Lab Results Component Value Date BNP 22 03/08/2025 BNP 34 03/06/2025 BNP 61 02/24/2025 CBC Results from last 7 days Lab Units 03/10/25 03303/09/25 2108 03/09/25 1041 03/09/25 0332 03/08/25 2151 03/08/25 1302 03/08/25 0348 03/08/25 0043 03/08/25 0032 WBC x10E9/L 10.3 -- 12.3* 15.5* -- -- 5.2 -- 19.0* HEMOGLOBIN g/dL 11.3* 11.4* 11.6* 12.7 12.7 12.9 10.8* -- 5.6* HEMATOCRIT % 34.5* 34.3* 35.4 39.3 39.2 38.5 32.6* -- 18.7* PORTABLE HEMATOCRIT -- -- -- -- -- -- -- < > -- PLATELETS X10E9/L 117* -- 140* 155 -- 187 165 -- 179 < > = values in this interval not displayed. Results from last 7 days Lab Units 03/10/25 0803/10/25 03303/10/25 03303/09/25 2254 03/09/25 1931 BEDSIDE GLUCOSE mg/dL 128* 82 -- 96 108* GLUCOSE mg/dL -- -- 86 -- -- Urine Studies: Lab Results Component Value Date COLOR Yellow 03/06/2025 TURBIDITY Hazy (A) 03/06/2025 SPECIFICGRA 1.023 03/06/2025 NITRITE Negative 03/06/2025 PHURINE 6.0 03/06/2025 LEUKOCYTE Small (A) 03/06/2025 PROTEIN 50 mg/dL (A) 03/06/2025 KETONES 20 mg/dL (A) 03/06/2025 UROBILINOGEN <1.1 eu/dL 03/06/2025 BLOODHGB Large (A) 03/06/2025 Lab Results Component Value Date UPROCRTRAT 0.25 (H) 03/06/2025 Urine Sodium: No components found for: CRYSTAL Urine Potassium: No results found for: KUR Urine Chloride: No results found for: CLUR Urine Osmolarity: No components found for: OSMOU Urine Creatinine: No results found for: LABCREA Urine Eosinophils: No components found for: UEOS Urine Protein: No components found for: TPU Immunology Profile No results found for: PROTELECTR , SEDRATE , CRP , RF , ANASCREEN , ANTIDSDNA , C3 , C4 , ANCA , MYELOP , PROTEINASE3 , ANTIGLOMERU No results found for: HAV , HEPAIGM , HEPBIGM , HEPBCAB , HBEAG , HEPCAB SP: No results found for: SP C3:No results found for: C3 C4:No results found for: C4 MPO ANCA: No results found for: MPO PR3 ANCA: No components found for: PR3 hepatitis serologies ANTIGBM:No components found for: GBMABIGG HEPATITIS B SURFACE AG: No results found for: HEPBSAG HEPATITIS C AB: No results found for: HEPCAB Electrophoresis: SPEP:No results found for: PROT , LABALPH , LABBETA , PATH UPEP:No results found for: LABPE Anemia Profile Lab Results Component Value Date WBC 10.3 03/10/2025 WBC 12.3 (H) 03/09/2025 HGB 11.3 (L) 03/10/2025 HGB 11.4 (L) 03/09/2025 HCT 34.5 (L) 03/10/2025 HCT 34.3 (L) 03/09/2025 PLT 117 (L) 03/10/2025 PLT 140 (L) 03/09/2025 Lab Results Component Value Date IRON 12 (L) 02/26/2025 TIBC 321 02/26/2025 FERRITIN 78 02/26/2025 Bone Mineral Profile Lab Results Component Value Date CALCIUM 7.9 (L) 03/10/2025 Results from last 7 days Lab Units 03/10/25 0331 03/09/25 1041 03/09/25 0325 MAGNESIUM mg/dL 2.2 2.4 1.9 Echocardiogram: Echo complete W/O contrast Result Date: 02/26/2025 Left Ventricle: Left ventricle is small. Systolic function is normal with an ejection fraction of 60-65%. No segmental wall motion abnormalities. Grade I diastolic dysfunction (impaired relaxation) is present. Lateral E' is 11.70 cm/s. Medial E' is 7.94 cm/s. Right Ventricle: Right ventricular sizeappears normal. The right ventricular basal diameter is 22.0 mm. Systolic function is normal. Aortic Valve: There is trace to mild regurgitation. There is no evidence of aortic valve stenosis. Thank you for the consultation. Please do not hesitate to contact us for any further questions/concerns. We will continue to follow along with you. * Sarath Hoover MD - 03/10/2025 7:00 AM EDT Images from the original note were not included. SICU Academic Critical Care PROGRESS NOTE Admission Date: 02/25/2025 5:24 PM Attending Physician: Deena Branch MD Date of 1955 Hospital Day: 13 day(s) Caren Suarez is a 69 y.o. female with past medical history of DVT, HTN, who was admitted to [facility] after a CT A/P at an OSH demonstrated large partially solid cystic lesions. At that time she was found to have multiple DVTs and PEs. She was transferred to [facility] for a higher level of care. On arrival, her DVTs were being treated with heparin. Colorectal surgery was consulted on 03/07 for possible bowel obstruction. At that time a CT A/P demonstrated colonic dilation with transition at the sigmoid junction. There is concern for acute malignant obstruction for known mucinous adenocarcinoma with colorectal origin. After stabilization of the patient's INR with [facility] on 03/07, the decisionwas made to take her to the operating room as a joint case between Colorectal on Electronic [employer] Specialist/Onc. At the beginning of the case, patient initially desaturated prior to incision. It was believed thatthis was due to the significant malignant ascites compressing the lungs. Decision was made to proceed with the case, and after decompression the patient's respiratory status significantly improved. The patient later went into cardiac arrest within the operating room and a code was initiated. Compressions were begun, epi was administered. After 2 rounds of compressions ROSC was obtained. ABThera was placed and the patient was transferred to the surgical ICU intubated and sedated. Overnight Events: Patient went to OR yesterday for second look and closure with creation of end ileostomy. Pressors were weaned overnight. Pt remains intubated and sedated with wound vac in place. Physical Exam: Vital Signs: BP 105/56 Pulse 80 Temp 36.7 ??C (98.1 ??F) Resp 20 Ht 157.5 cm (5' 2.01 ) Wt 84.4 kg (186 lb 1.1 oz) SpO2 96% BMI 34.02 kg/m?? General: Sedated HENT: Head atraumatic, normocephalic, external ears and nose are normal Eyes: Conjunctivae clear, non-icteric, EOMI Pulmonary: Intubated and ventilated Cardiovascular: Regular rate and rhythm, radial pulses 2+, non-edematous x4 extremities Abdomen: Wound vac in place, ileostomy pouch in place with small amount of bowel sweat Musculoskeletal: Range of motion grossly normal x4 extremities, no deformity x4 extremities Neurological: sedated Skin: Warm, dry, without jaundice Intake/Output Summary (Last 24 hours) at 03/10/2025 0702 Last data filed at 03/10/2025 0600 Gross per 24 hour Intake 2675.11 ml Output 2249 ml Net 426.11 ml O2 Device: Endotracheal tube Ventilator Settings Vent Mode: PRVC-AC FiO2 (%): 40 % Resp Rate (Set): (S) 20 Avea Vt (Set, L): 0.4 Liter PEEP/CPAP (cm H2O): 12 cm H20 Insp Time (sec): 0.92 sec Trigger Sensitivity Flow (L/min): 1 L/min Trigger Sensitivity Pressure (cm H2O): 3 cm H2O Humidification: Heat and moisture exchanger Invasive Hemodynamic [place] Results from last 3 days Lab Units 03/10/2533003/09/25225403/09/25 1833 03/09/25 1041 03/09/25 0601 03/09/25 03203/08/25 2348 03/08/25170903/08/25 1113 03/08/25 0455 03/08/25 0043 03/08/25 0032 BUN mg/dL 31* -- -- 30* -- 30* -- -- -- 28* -- 29* CREATININE mg/dL 1.13* -- -- 1.09* -- 1.25* -- -- -- 1.07* -- 1.18* POTASSIUM mmol/L 4.5 4.5 4.5 4.9 4.9 5.0 4.7 4.4 3.7 4.2 -- 3.5 POC POTASSIUM mmol/L -- -- -- -- -- -- -- -- -- -- 3.4* -- CO2 mmol/L 26 -- -- 23 -- 25 -- -- -- 21* -- 19* CHLORIDE mmol/L 108 -- -- 109 -- 109 -- -- -- 106 -- 105 MAGNESIUM mg/dL 2.2 -- -- 2.4 -- 1.9 -- -- -- 2.0 -- 2.1 AST U/L -- -- -- 33 -- -- -- -- -- -- -- 108* ALT U/L -- -- -- 23 -- -- -- -- -- -- -- 33* ALK PHOS U/L -- -- -- 38* -- -- -- -- -- -- -- 37* Results from last 3 days Lab Units 03/10/2533003/09/2532403/08/25170903/08/25 0348 03/08/25 0032 03/07/25 1940 INR 1.4* 1.7* 1.6* 1.6* 2.3* 1.9* PROTIME sec 16.3* 19.0* 17.9* 18.5* 25.8* 21.2* Results from last 3 days Lab Units 03/10/2533003/09/25210703/09/25 10403/09/25 03303/08/25 21503/08/25 1302 03/08/25 0348 03/08/25 0043 03/08/25 0032 WBC x10E9/L 10.3 -- 12.3* 15.5* -- -- 5.2 -- 19.0* HEMOGLOBIN g/dL 11.3* 11.4* 11.6* 12.7 12.7 12.9 10.8* -- 5.6* HEMATOCRIT % 34.5* 34.3* 35.4 39.3 39.2 38.5 32.6* -- 18.7* PORTABLE HEMATOCRIT % -- -- -- -- -- -- -- 17* -- PLATELETS X10E9/L 117* -- 140* 155 -- 187 165 -- 179 MCV fL 80 -- 80 81 -- -- 80 -- 78* MCH pg 26.2* -- 26.2* 26.2* -- -- 26.7* -- 23.2* MCHC g/dL 32.6 -- 32.7 32.4 -- -- 33.2 -- 29.7* RDW % 24.1* -- 23.4* 22.5* -- -- 22.4* -- 20.1* MONO ABS MAN 10*3/uL -- -- 0.2 0.2 -- -- -- -- -- EOS ABS MAN 10*3/uL -- -- -- 0.0 -- -- -- -- -- Microbiology Results Procedure Component Value Units Date/Time Urine Culture Urine, Indwelling Catheter [[id number]] (Abnormal) Collected: 03/07/25 1122 Specimen: Urine, Indwelling Catheter Updated: 03/08/2549 CULTURE RESULTS 50,000-100,000 CFU/mL Enterococcus species Glucose Results from last 7 days Lab Units 03/10/2533603/10/2533003/09/25 225 03/09/25 1931 03/09/25 1549 03/09/25 1041 03/09/25 0331 03/09/25 0325 03/08/25 2351 03/08/25 1925 03/08/25 1709 03/08/25 1506 BEDSIDE GLUCOSE mg/dL 82 -- 96 108* 114* -- 109* -- 110* 112* 108* 108* GLUCOSE mg/dL -- 86 -- -- -- 114* -- 108* -- -- -- -- Lines/Drains CVC Triple Lumen 03/07/25 Right Internal Jugular (Active) Precautions Standard precautions;Hand hygiene;Gloves 03/08/25 0300 Lumen 1 Proximal 03/08/25 0300 Lumen 1 Status Blood return noted;Flushed;Infusing 03/08/25 0300 Lumen 2 Medial 03/08/25 0300 Lumen 2 Status Blood return noted;Flushed;Infusing 03/08/25 0300 Lumen 3 Distal 03/08/25 0300 Lumen 3 Status Blood return noted;Flushed;Infusing 03/08/25 0300 Site Assessment Clean;Dry;Intact 03/08/25 0000 Dressing Type Transparent;Occlusive 03/08/25 0300 Dressing Status Clean;Dry;Intact 03/08/25 0300 Dressing Intervention Initial dressing 03/08/25 0300 Line Necessity Peripherally incompatible solution 03/08/25 0300 Line Necessity Reviewed With cc 03/08/25 0300 Patient Tolerance of Line Care Tolerated well 03/08/25 0300 Central Line Dressing Change Due (Non-Gauze) 03/15/25 03/08/25 0000 Peripheral IV 03/05/25 Anterior;Left Forearm (Active) Line Status Infusing;Flushed 03/08/25 0300 Site Assessment Clean;Intact;Dry 03/08/25 0300 Dressing Type Transparent;Occlusive 03/08/25 0300 Dressing Status Intact;Clean;Dry 03/08/25 0300 Dressing Intervention Initial dressing 03/08/25 0300 Dressing Change Due (Non-Gauze) 03/12/25 03/05/25 0649 Peripheral IV 03/06/25 Anterior;Right Forearm (Active) Line Status Infusing;Flushed 03/08/25 0300 Site Assessment Clean;Dry;Intact 03/08/25 0300 Dressing Type Transparent;Occlusive 03/08/25 0300 Dressing Status Intact;Dry;Clean 03/08/25 0300 Dressing Intervention Initial dressing 03/08/25 0300 Dressing Change Due (Non-Gauze) 03/13/25 03/06/25 2105 Chest Tube 03/08/25 Left (Active) Function -20 cm H2O 03/08/25 0300 Air Leak No 03/08/25 0300 (1) Drainage Description Serosanguineous 03/08/25 0300 (1) Dressing Type Gauze;Occlusive 03/08/25 0300 (1) Dressing Status Clean;Dry;Intact 03/08/25 0300 (1) Dressing Intervention Initial dressing 03/08/25 0300 (1) Site Assessment Clean;Intact;Dry 03/08/25 0300 Output (mL) 20 mL 03/08/25 0600 Negative Pressure Wound Therapy 03/07/25 Surgical Quadrant;Mid Abdomen (Active) Assessed: Compressed 03/08/25 0300 Cycle Continuous 03/08/25 0300 Target Pressure (mmHg) 125 03/08/25 0300 Dressing Status Clean;Dry;Intact 03/08/25 0300 Dressing Changed New 03/08/25 0000 Output (mL) 200 mL 03/08/25 0600 NG/OG Tube 03/08/25 Left nostril (Active) Placement Verification External length measured 03/08/25 0300 Status Suction-low intermittent 03/08/25 0300 Tube Site Care Completed 03/08/25 0300 Secured at (cm) 55 cm 03/08/25 0300 Securement Method Securing device (Describe) 03/08/25 0300 Dressing Status/Interventions Clean;Dry;Intact 03/08/25 0300 Drainage Appearance Bile 03/08/25 0300 Urinary Catheter 03/06/25 Single lumen (Active) Catheter Status Patent 03/08/25 0300 Site Assessment Clean;Skin intact 03/08/25 0300 Collection Container Standard drainage bag/container 03/08/25 0300 Securement Method Right 03/08/25 0300 Tamper Evident Seal Intact Yes 03/08/25 0300 Indication for Continuation Uro/jewel bearing turner surgical considerations 03/08/25 0000 Urine Color Yellow/straw 03/08/25 0300 Urine Appearance Clear 03/08/25 0300 Output (mL) 50 mL 03/08/25 0700 ETT 03/07/25 Cuffed;Inflated Oral (Active) Secured at (cm) 22 cm 03/08/25 030 Measured from Lips 03/08/25 0300 Secured Location Center 03/08/25 020 Secured by Commercial tube du 03/08/25 0300 Cuff Pressure (cm H2O) 30 cm H2O 03/08/25 0200 Arterial Line 03/07/25 Left Radial (Active) Line Status Infusing;Blood return noted;Pulsatile blood flow;Flushed 03/08/25 030 Line Interventions Zeroed and calibrated;Leveled;Connections checked and tightened;Pressure bag maintained 03/08/25 030 Waveform Appropriate 03/08/25 030 Site Assessment Clean;Intact;Dry 03/08/25 030 Dressing Type Transparent;Occlusive 03/08/25 030 Dressing Status Clean;Dry;Intact 03/08/25 030 Dressing Intervention Initial dressing 03/08/25 0300 Color/Movement/Sensation Capillary refill less than 3 sec 03/08/25 0300 Patient Tolerance of Line Care Tolerated well 03/08/25 030 Line Necessity Invasive hemodynamic monitoring 03/08/25 030 Line Necessity Reviewed With cc 03/08/25 030 Dressing Change Due (Non-Gauze) 03/15/25 03/08/25 0000 ACTIVE PROBLEM LIST: S/p cardiac arrest Malignant bowel obstruction s/p total colectomy and bilateral salpingo-oophorectomy Pulmonary embolism Multiple DVT Moderate left pneumothorax Blood loss anemia Acute Kidney Injury w/ concern for acute tubular necrosis Malignant Colorectal Cancer Bacterial Peritonitis Ovarian Cystic Lesion ASSESSMENT/PLAN: Caren Suarez is a 69 y.o. female who is s/p total colectomy and bilateral salpingo-oophorectomy for malignant bowel obstruction for known mucinous adenocarcinoma. 1. Neuro S/p cardiac arrest CT Head without contrast: No acute intracranial process. Hospital Meds: Sedation: versed, fentanyl RASS Goal: -1 to 0 Analgesia: fentanyl Other: n/a Home Meds: N/a 2. Pulmonary Pulmonary embolism, multiple DVT - CTA Chest 03/08/25:Slightly decreased burden of right sided pulmonary emboli. No new emboli. Left chest tube, moderate left pneumothorax, significant subcutaneous emphysema, mild dependent edema and consolidation left lung. Vascular venous duplex 02/24/25 Acute femoropopliteal deep vein thrombosis, acute deep tibioperoneal vein thrombosis, acute deep calf muscle vein thrombosis - Vascular Surgery is consulted: plan is pending - Plan to restart heparin Left chest tube - 95 cc output 03/10/25 CXR: Pneumothorax remains with a indwelling left chest tube. Pneumothorax is larger than theprior study currently approximately 17 mm at the left upper lobe. The amount of gas within the leftchest wall is increasing. 03/09/25 CXR: There is a 1 cm left apical pneumothorax. Sidehole of the left-sided chest tube is outside of the pleural space in the left lateral chest wall. Improved aeration of the left lung. 03/08/25 CXR: Left chest tube has been pulled back, with tip remaining in the hemithorax however sideport outside of the pleural space in the chest wall Breathing Support: ET tube, PRVC-AC Settings: FiO2 0.4, respiratory rate 20, Tidal volume 400 mL, PEEP 12 SpO2: 96% Continuous pulse oximetry Hospital Meds: None Home Meds: None 3. Cardiovascular S/p cardiac arrest, shock Hemodynamics: Tachycardic, sinus rhythm Normotensive Pressors: Vaso stopped 03/09/2025 2249 Goal MAP >65 Continuous cardiac monitoring Hospital Meds: Heparin SQH, held for operation 03/09/2025 plan to restart Home Meds: Unknown PMH: Hypertension, previous DVTs PSH: None known Code Status: Full 4. GI Malignant bowel obstruction s/p total colectomy and bilateral salpingo-oophorectomy Status post total colectomy, left in discontinuity, ABThera in place 03/07/25 Status post 2nd look and end ileostomy creation, wound vac in place 03/09/25 Diet: NPO Bowel Function: Await return of bowel function Hospital Meds: N/a Home Meds: None known 5. Renal/Genitourinary TASHA w/ concern for acute tubular necrosis - nephrology consult 03/09/25 Metabolic acidosis, resolved - Lactate 1.9 from 2.8 Lab Results Component Value Date SODIUM 142 03/10/2025 SODIUM 139 03/09/2025 SODIUM 140 03/09/2025 CL 108 03/10/2025 CL 109 03/09/2025 CL 109 03/09/2025 K 4.5 03/10/2025 K 4.5 03/09/2025 K 4.5 03/09/2025 CO2 26 03/10/2025 CO2 23 03/09/2025 CO2 25 03/09/2025 Electrolytes: Lab Results Component Value Date BUN 31 (H) 03/10/2025 BUN 30 (H) 03/09/2025 BUN 30 (H) 03/09/2025 CREATININE 1.13 (H) 03/10/2025 CREATININE 1.09 (H) 03/09/2025 CREATININE 1.25 (H) 03/09/2025 CALCIUM 7.9 (L) 03/10/2025 CALCIUM 7.8 (L) 03/09/2025 CALCIUM 8.1 (L) 03/09/2025 MG 2.2 03/10/2025 MG 2.4 03/09/2025 MG 1.9 03/09/2025 PHOSPHORUS 3.7 03/10/2025 PHOSPHORUS 3.9 03/09/2025 PHOSPHORUS 3.8 03/09/2025 Will replace electrolytes PRN per ICU protocol Fluid Balance: On LR at 100ml/hr IV Fluids: 2.1 L UOP/24 H: 1895 Net Fluid/24H: +360 mL Net Fluid Since admission: +8.5 L Strict monitoring of Ins and Outs Hospital Meds: none Home Meds: None known 6. Heme Blood loss anemia Labs: Lab Results Component Value Date HGB 11.3 (L) 03/10/2025 HGB 11.4 (L) 03/09/2025 HGB 11.6 (L) 03/09/2025 PLT 117 (L) 03/10/2025 PLT 140 (L) 03/09/2025 PLT 155 03/09/2025 Lab Results Component Value Date INR 1.4 (H) 03/10/2025 INR 1.7 (H) 03/09/2025 INR 1.6 (H) 03/08/2025 Type and Screen: A neg Blood Products Administered: 3U PRBC (03/08/25 at 0200) Will continue to monitor Hgb and transfuse PRN H&H q8h, stable 7. ID Leukocytosis Bacterial Peritonitis Ovarian Cystic Lesion - Infectious disease is onboard - Completed course of abx for peritonitis - Continue ceftriaxone and metronidazole empirically Tmax/24H: 36.9 Labs: Lab Results Component Value Date WBC 10.3 03/10/2025 WBC 12.3 (H) 03/09/2025 WBC 15.5 (H) 03/09/2025 Micro: Urine culture positive 50,000-100,0000 Enterococcus species Peritoneal fluid culture collected 02/28/25: NGTD Hospital Meds: Antibiotics: rocephin and flagyl 8. Endocrine Lab Results Component Value Date GLU 82 03/10/2025 GLU 86 03/10/2025 GLU 96 03/09/2025 Goal Blood Glucose <180 mg/dL Hospital Meds: ISS PMH: none known 9. Musculoskeletal PMH: n/a PSH: n/a PT/OT when able 10. Prophylaxis Respiratory: none GI: protonix DVT: SCD Cuffs, SQH held 11. Lines PIV x2 L radial A line Camara Right IJ CVC ETT tube L chest tube NG tube Disposition: Critical, ICU Vin Martinez, MPH Medical Student 3 10 MAR 2025 I was present with the medical student who participated in the service and documentation. I have verified the student's documentation of the history, performed the physical exam, and personally performed the medical decision-making. Sarath Hoover MD SICU Resident, PGY1 Cosigned by Orion Damico MD at 03/10/2025 8:51 AM EDT Associated attestation - Orion Damico MD - 03/10/2025 8:51 AM EDT Attending Attestation: I saw the patient. I participated and was physically present during the critical/fuentes portions of the service. I was directly involved in the management and treatment plan of the patient. I reviewed the resident's note. Additional Notes/Findings: <<<<<<<<<<<<<<<<<< Surgical Critical Care Attending >>>>>>>>>>>>>>>>>>>>>>>> I have seen and evaluated the patient, and have also reviewed the history above. Patient is critically ill and has a high probability of imminent or life- threatening deterioration, that requires highcomplexity decision making and failure to do so may cause further life threatening deterioration. Ihave repeated and performed the fuentes portions of the physical exam and concur with the resident's/advanced practice provider findings with the exception of the below additions. I have reviewed all pertinent laboratory findings and imaging reports/films. We have discussed the patient's status and theappropriate treatment options/plan on the day of the encounter. I agree with the plan as noted above except for changes below. Critical care time spent with the patient today = 35 minutes. Diagnoses: Acute respiratory failure with hypoxia Cardiac arrest Acute blood loss anemia Hypocalcemia Pulmonary embolism DVT TASHA Hypoalbuminemia sepsis Plan: Patient remains intubated at this time. We will continue ventilator bundle which includes but not limited to, head of bed elevated as tolerated, good oral care, clean ventilator circuit per guidelines. Will continue to wean ventilator as tolerated for possible extubation. MODE ac PEEP 12 FiO2 40 EXTUBATION PARAMETERS Not a candidate. To much support at this time Off vasopressors now 7.46/34/100/99 Second look yesterday with closure of the fascia Heparin drip to start today if ok with Colorectal surgery On ceftriaxone and flagyl. ID involved. Nephrology following I and O +360mL/24 hours and +8.5L/HS CXR with increase in the pneumothorax. 100mL out of chest tube. Chest tube leaking at the connection. Will cut the zip ties and secure it appropriate Will replace the arterial line Orion Damico MD, FACS [facility] General Surgeons Minimally Invasive Robotic Surgery Surgical Critical Care Trauma Office: [phone] Please feel free to call with questions at anytime. * Brenda Hayes MD - 03/09/2025 4:26 PM EDT Images from the original note were not included. [facility] Artur Small, [facility] Nephrology Consultation Note Patient Name: Caren Suarez : 1955 Date of Service: 03/09/25 PCP: Riya Diego MD Attending Physician: Ghassan Castillo MD Admission Date: 02/25/2025 Length of stay: LOS: 12 days Chief complaint. No chief complaint on file. Reason for Consult: Acute Kidney Injury Assessment and Plan. 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 She reports having a hard time breathing and a cough that went away ( she has had a hard time breathing and had a cough but it went away ). She had been treated by her PCP with steroids and antibiotics without improvement. An outpatient CT abdomen/pelvis on 02/24/2025 revealed a large right adnexal mass, a solid right renal lesion, and likely metastases to the lungs and abdomen. Venous duplex showed bilateral DVTs. She was transferred from [place] to [facility] for further evaluation and management. In the emergency department, she was started on a heparin drip. Workup upon admission included a CTA chest on 02/25/2025, which confirmed moderate right-sided pulmonary emboli without right heart strain. She is currently being treated for a urinary tract infection and bacterial peritonitis with IV Rocephin and Flagyl, with Infectious Disease on board. Nephrology consultation was requested for acute kidney injury. Assessment Acute Kidney Injury, likely multifactorial with hemodynamic and prerenal components, with concern for acute tubular necrosis (ATN). Baseline creatinine is approximately 0.9 mg/dL. The TASHA is in the setting of sepsis, treatment for bacterial peritonitis, and obs uropathy , There was contrast exposure on 02/24/2025. Right hydrnephrosis, 2.2 cm right renal mass lesion Urology evaluated the patient Mild hyponatremia on initial evaluation. Metabolic acidosis on initial evaluation. Volume Status: Euvolemic , possibly on low side Hypertension: Stable, though has been on the higher side. Hemodynamics: Echocardiogram on 02/26/2025 showed a normal LVEF of 60-65% with Grade I diastolic dysfunction and no evidence of right heart strain. Anemia Most recent hemoglobin is 10.8 g/dL. Sepsis secondary to bacterial peritonitis and UTI. 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 ? Rectal ca Acute pulmonary embolism and bilateral DVT. Malignant Bowel obstruction , patient is status post exploratory laparotomy, total colectomy, left in discontinuity, and BSO on 03/07/2025 , repeat Second Look laparotomy and ileostomy creation on 03/09/2025 Cardiac arrest intraoperatively, 03/07/2025 needing ACLS. Ventilator dependent respiratory failure postoperatively Plan One dose of lasix , continue IV fluids per surgery, recommend decreasing rate to 75 , mL/hour. Needto watch for volume overload, discussed with surgery Team and nursing staff at bedside. Renal function stable, continue to monitor Vasopressor , ventilator support per critical Care Strict ins and outs / accurate documentation of urine out put / daily weights and Bladder scan Q12 Avoid nephrotoxins, avoid contrast exposure unless absolutely necessary, avoid hemodynamic instability Dose all medications to GFR Monitor Renal Chem panel daily in AM Thank you for this consultation, we will follow along with you regarding care of this patient whilethe patient is here in the hospital, please call if you have any questions or concerns. BRENDA HAYES MD on 03/09/2025 at 4:26 PM [facility] [email or web address] - is now [employer] Schedule : See Epic on-call schedule for [facility] ( [facility] ) Nephrology Working Hours : Epic chat during working hours, if no response please use on- call physician reach out as below After Hours : Answering service contact : [phone] Office Phone number: [phone] Subjective Patient seen at bedside, she is status post surgery Currently on ventilator Edema getting worse Urine output decreasing Past Medical History: Diagnosis Date Deep vein thrombosis ([facility]) No past surgical history on file. Family History Problem Relation Age of Onset Breast cancer Neg Hx Social History Socioeconomic History Marital status: Single Spouse name: Not on file Number of children: Not on file Years of education: Not on file Highest education level: Not on file Occupational History Not on file Tobacco Use Smoking status: Former Types: Cigarettes Smokeless tobacco: Never Substance and Sexual Activity Alcohol use: Never Drug use: Never Sexual activity: Not on file Other Topics Concern Not on file Social History Narrative Not on file Social Drivers of Health Financial Resource Strain: Not on file Food Insecurity: No Food Insecurity (02/25/2025) Hunger Screening Food Insecurity - Worry: Never True Food Insecurity - Inability: Never True Transportation Needs: No Transportation Needs (02/25/2025) PRAPARE - Transportation Lack of Transportation (Medical): No Lack of Transportation (Non-Medical): No Physical Activity: Not on file Stress: Not on file Social Connections: Not on file Interpersonal Safety: Not At Risk (02/25/2025) Humiliation, Afraid, Rape, and Kick questionnaire Fear of Current or Ex-Partner: No Emotionally Abused: No Physically Abused: No Sexually Abused: No Housing Instability: Low Risk (02/25/2025) Housing Instability Housing Instability: No Prior to Admission medications Medication Sig Start Date End Date Taking? Authorizing Provider apixaban (ELIQUIS) 5 mg tablet Take 2 tablets (10 mg total) by mouth 2 (two) times a day for 7 days, THEN 1 tablet (5 mg total) 2 (two) times a day for 30 days. 03/05/25 04/11/25 Eleni Harding APRN-ASSISTANT DIRECTOR OF [employer]IDENCE [employer] Allergies Allergen Reactions Penicillin Physical Exam: VITALS BP 109/50 Pulse 65 Temp 36.4 ??C (97.5 ??F) Resp 22 Ht 157.5 cm (5' 2.01 ) Wt 84.4 kg (186 lb 1.1 oz) SpO2 96% BMI 34.02 kg/m?? Wt Readings from Last 3 Encounters: 03/09/25 84.4 kg (186 lb 1.1 oz) 02/24/25 74.4 kg (164 lb) BMI: Body mass index is 34.02 kg/m??. I/O (24 Hours) Intake/Output Summary (Last 24 hours) at 03/09/2025 1626 Last data filed at 03/09/2025 1502 Gross per 24 hour Intake 3336.02 ml Output 1581 ml Net 1755.02 ml General: Patient is currently intubated, sedated HEENT: Atraumatic, normocephalic. Anicteric sclera. [place] and moist oral mucosa. Neck supple. No JVD. Chest: Bilateral air entry, clear to auscultation, no wheezing, rhonchi or rales. Cardiovascular: RRR, S1S2, no murmur, rub or gallop. No lower extremity edema. Abdomen: Postoperative, soft Musculoskeletal: No cyanosis or clubbing. No edema Integumentary: [place], warm and dry. Free from rash or lesions. CARBIDE GRINDER: Patient is currently intubated, sedated, examination grossly nonfocal, full neurological examination could not be done due to clinical condition Medications Scheduled Meds: cefTRIAXone (ROCEPHIN) IV, 2,000 mg, intravenous, Q24H chlorhexidine, 15 mL, mouth/throat, BID folic acid, 1 mg, oral, Daily furosemide, 40 mg, intravenous, Once insulin lispro, 2-10 Units, subcutaneous, Q4H metroNIDAZOLE, 500 mg, intravenous, Q12H pantoprazole, 40 mg, intravenous, Q12H Continuous Infusions: dextrose 5 % in water, 100 mL/hr D5 % and 0.45 % sodium chloride, 50 mL/hr, Last Rate: Stopped (03/07/252225) EPINEPHrine, 0.02-0.2 mcg/kg/min, Last Rate: Stopped (03/08/2541) fentaNYL, 25-200 mcg/hr, Last Rate: 100 mcg/hr (03/09/25 1550) heparin, 300-3,500 Units/hr, Last Rate: Stopped (03/08/25 2242) lactated ringer's, 100 mL/hr, Last Rate: 100 mL/hr (03/09/25 0602) midazolam, 0.5-7 mg/hr, Last Rate: 0.5 mg/hr (03/09/25843) norepinephrine, 0.01-0.4 mcg/kg/min, Last Rate: 0.02 mcg/kg/min (03/09/25 1502) sodium chloride 0.9 %, 20 mL/hr, Last Rate: 50 mL/hr (03/09/25843) vasopressin (PITRESSIN) 40 Units in sodium chloride 0.9 % 40 mL (1 Units/mL) infusion, 0.04 Units/min, Last Rate: 0.04 Units/min (03/09/25 1557) PRN Meds: calcium gluconate OR calcium gluconate OR calcium gluconate dextrose dextrose 5 % in water dextrose 50 % in water (D50W) glucagon (human recombinant) heparin (porcine) hydrALAZINE magnesium sulfate OR magnesium sulfate midazolam ondansetron potassium chloride OR potassium chloride potassium chloride in water OR potassium chloride in water sodium phosphate IV OR sodium phosphate IV - central line OR sod phos di, mono-K phos mono sodium chloride sodium chloride sodium chloride 0.9 % Results Review Renal Chemistry Results from last 7 days Lab Units 03/09/25 1041 03/09/25 0601 03/09/25 0325 03/08/25 2348 03/08/25 1710 03/08/25 1113 03/08/25 0455 03/08/25 0043 03/08/25 0032 03/07/25 0626 SODIUM mmol/L 139 -- 140 -- -- -- 138 -- 138 135 PORTABLE SODIUM mmol/L -- -- -- -- -- -- -- 137 -- -- POTASSIUM mmol/L 4.9 4.9 5.0 4.7 4.4 < > 4.2 -- 3.5 3.7 POC POTASSIUM mmol/L -- -- -- -- -- -- -- 3.4* -- -- CHLORIDE mmol/L 109 -- 109 -- -- -- 106 -- 105 103 CO2 mmol/L -- -- -- 21* -- 19* 22 BUN mg/dL 30* -- 30* -- -- -- 28* -- 29* 35* CREATININE mg/dL 1.09* -- 1.25* -- -- -- 1.07* -- 1.18* 1.16* CALCIUM mg/dL 7.8* -- 8.1* -- -- -- 8.4* -- 8.3* 8.3* MAGNESIUM mg/dL 2.4 -- 1.9 -- -- -- 2.0 -- 2.1 2.6 PHOSPHORUS mg/dL 3.9 -- 3.8 -- -- -- -- -- 5.4* -- < > = values in this interval not displayed. Hepatic: Lab Results Component Value Date AST 33 03/09/2025 AST 108 (H) 03/08/2025 AST 21 02/24/2025 ALT 23 03/09/2025 ALT 33 (H) 03/08/2025 ALT 15 02/24/2025 ALKPHOS 38 (L) 03/09/2025 ALKPHOS 37 (L) 03/08/2025 ALKPHOS 105 02/24/2025 BNP Lab Results Component Value Date BNP 22 03/08/2025 BNP 34 03/06/2025 BNP 61 02/24/2025 CBC Results from last 7 days Lab Units 03/09/25 1041 03/09/25 0332 03/08/25 2151 03/08/25 1302 03/08/25 0348 03/08/25 0043 03/08/25 0032 03/07/25 0626 WBC x10E9/L 12.3* 15.5* -- -- 5.2 -- 19.0* 17.9* HEMOGLOBIN g/dL 11.6* 12.7 12.7 12.9 10.8* -- 5.6* 11.0* HEMATOCRIT % 35.4 39.3 39.2 38.5 32.6* -- 18.7* 35.3 PORTABLE HEMATOCRIT -- -- -- -- -- < > -- -- PLATELETS X10E9/L 140* 155 -- 187 165 -- 179 341 < > = values in this interval not displayed. Results from last 7 days Lab Units 03/09/25 1549 03/09/25 1041 03/09/25 0331 03/09/25 0325 03/08/25 2351 BEDSIDE GLUCOSE mg/dL 114* -- 109* -- 110* GLUCOSE mg/dL -- 114* -- 108* -- Urine Studies: Lab Results Component Value Date COLOR Yellow 03/06/2025 TURBIDITY Hazy (A) 03/06/2025 SPECIFICGRA 1.023 03/06/2025 NITRITE Negative 03/06/2025 PHURINE 6.0 03/06/2025 LEUKOCYTE Small (A) 03/06/2025 PROTEIN 50 mg/dL (A) 03/06/2025 KETONES 20 mg/dL (A) 03/06/2025 UROBILINOGEN <1.1 eu/dL 03/06/2025 BLOODHGB Large (A) 03/06/2025 Lab Results Component Value Date UPROCRTRAT 0.25 (H) 03/06/2025 Urine Sodium: No components found for: CRYSTAL Urine Potassium: No results found for: KUR Urine Chloride: No results found for: CLUR Urine Osmolarity: No components found for: OSMOU Urine Creatinine: No results found for: LABCREA Urine Eosinophils: No components found for: UEOS Urine Protein: No components found for: TPU Immunology Profile No results found for: PROTELECTR , SEDRATE , CRP , RF , ANASCREEN , ANTIDSDNA , C3 , C4 , ANCA , MYELOP , PROTEINASE3 , ANTIGLOMERU No results found for: HAV , HEPAIGM , HEPBIGM , HEPBCAB , HBEAG , HEPCAB SP: No results found for: SP C3:No results found for: C3 C4:No results found for: C4 MPO ANCA: No results found for: MPO PR3 ANCA: No components found for: PR3 hepatitis serologies ANTIGBM:No components found for: GBMABIGG HEPATITIS B SURFACE AG: No results found for: HEPBSAG HEPATITIS C AB: No results found for: HEPCAB Electrophoresis: SPEP:No results found for: PROT , LABALPH , LABBETA , PATH UPEP:No results found for: LABPE Anemia Profile Lab Results Component Value Date WBC 12.3 (H) 03/09/2025 WBC 15.5 (H) 03/09/2025 HGB 11.6 (L) 03/09/2025 HGB 12.7 03/09/2025 HCT 35.4 03/09/2025 HCT 39.3 03/09/2025 PLT 140 (L) 03/09/2025 PLT 155 03/09/2025 Lab Results Component Value Date IRON 12 (L) 02/26/2025 TIBC 321 02/26/2025 FERRITIN 78 02/26/2025 Bone Mineral Profile Lab Results Component Value Date CALCIUM 7.8 (L) 03/09/2025 Results from last 7 days Lab Units 03/09/25 1041 03/09/25 0325 03/08/25 0455 MAGNESIUM mg/dL 2.4 1.9 2.0 Echocardiogram: Echo complete W/O contrast Result Date: 02/26/2025 Left Ventricle: Left ventricle is small. Systolic function is normal with an ejection fraction of 60-65%. No segmental wall motion abnormalities. Grade I diastolic dysfunction (impaired relaxation) is present. Lateral E' is 11.70 cm/s. Medial E' is 7.94 cm/s. Right Ventricle: Right ventricular sizeappears normal. The right ventricular basal diameter is 22.0 mm. Systolic function is normal. Aortic Valve: There is trace to mild regurgitation. There is no evidence of aortic valve stenosis. Thank you for the consultation. Please do not hesitate to contact us for any further questions/concerns. We will continue to follow along with you. * Nuvia Flannery, STUDENT TRUCK DRIVER-ASSISTANT DIRECTOR OF [employer] - 03/09/2025 2:12 PM EDT Images from the original note were not included. Division of Infectious Diseases Progress note Academic Team Please contact us via C[employer]le chat. After hours, call [phone] Patient name: Caren Suarez Patient Today's Date and Time: 03/09/2025, 2:12 PM Admission Date: 02/25/2025 Primary Care Physician: Riya Diego MD Impression and Recommendations: Leukocytosis Bacterial Peritonitis Ovarian Cystic Lesion CT a/p demonstrated large partially solid and partially cystic lesion in the R adnexa measuring 16 x 12 x 11 cm and lower anterior abdominal soft tissue nodules, 2.5 cm solid R renal lesion and diffuse intraperitoneal fluid S/P paracentesis 02/28/2025 - nucleated cells are elevated at 1900 with neutrophil predominance (60%) Peritoneal fluid culture is negative to date Abdominal soft tissue mass 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 Concern for obstructionfrom the known large rectal mass vs multicentric colorectal carcinoma Status post exp lap, total colectomy, bilateral salpingo-oopherectomy, vac placemement 03/07 Status post OR today for creation of ileostomy and abdominal closure General surgery has been consulted Intra operative cardiac arrest Acute respiratory failure Remains intubated on the vent CTA done today Vent management per critical care TASHA Nephrology following Right hydronephrosis Likely secondary to pelvic mass effect on ureter Urology following Acute PE, with R heart strain Numerous pulmonary nodules likely metastasis Subjective Interval History: Patient seen and examined at bedside. Status post OR today for creation of ileostomy and abdominal closure. Drains intubated on vent. On pressors. Objective Physical Examination : BP 109/50 Pulse 64 Temp 36.2 ??C (97.2 ??F) Resp 22 Ht 157.5 cm (5' 2.01 ) Wt 84.4 kg (186 lb 1.1 oz) SpO2 96% BMI 34.02 kg/m?? Temperature Range: Temp: 36.2 ??C (97.2 ??F) Temp Av.6 ??C (97.8 ??F) Min: 35 ??C (95 ??F) Max: 37.2 ??C (99 ??F) General Appearance: intubated on vent and in no apparent distress Eyes: Sclera anicteric; conjunctivae pink ENT: ETT in place Neck: Supple, without lymphadenopathy. Pulmonary/Chest: Clear to auscultation, without wheezes, rales, or rhonchi. Left sided chest tube in place Cardiovascular: Regular rate and rhythm without murmurs, rubs, or gallops. Abdomen: distended. Soft. Dressing intact Extremities: No cyanosis, clubbing, , or effusions. +BLE edema Neurologic: Bulk and tone are normal. No atrophy is noted. Skin: No rash or lesions. Laboratory data: I have independently reviewed the following labs: Results from last 7 days Lab Units 03/09/25 1041 03/09/25 0332 03/08/25 2151 03/08/25 1302 03/08/25 0348 WBC x10E9/L 12.3* 15.5* -- -- 5.2 HEMOGLOBIN g/dL 11.6* 12.7 12.7 12.9 10.8* HEMATOCRIT % 35.4 39.3 39.2 38.5 32.6* MCV fL 80 81 -- -- 80 PLATELETS X10E9/L 140* 155 -- 187 165 EOS ABS MAN 10*3/uL -- 0.0 -- -- -- BASOS ABS MAN 10*3/uL -- 0.0 -- -- -- Results from last 7 days Lab Units 03/09/25 1041 03/09/25 0601 03/09/25 0325 03/08/25 1113 03/08/25 0455 03/08/25 0043 03/08/25 0032 SODIUM mmol/L 139 -- 140 -- 138 -- 138 PORTABLE SODIUM -- -- -- -- -- < > -- POTASSIUM mmol/L 4.9 4.9 5.0 < > 4.2 -- 3.5 POC POTASSIUM -- -- -- -- -- < > -- CHLORIDE mmol/L 109 -- 109 -- 106 -- 105 CO2 mmol/L 23 -- 25 -- 21* -- 19* BUN mg/dL 30* -- 30* -- 28* -- 29* CREATININE mg/dL 1.09* -- 1.25* -- 1.07* -- 1.18* CALCIUM mg/dL 7.8* -- 8.1* -- 8.4* -- 8.3* ALBUMIN g/dL 2.5* -- -- -- -- -- 1.9* ALK PHOS U/L 38* -- -- -- -- -- 37* ALT U/L 23 -- -- -- -- -- 33* AST U/L 33 -- -- -- -- -- 108* < > = values in this interval not displayed. Results from last 7 days Lab Units 03/06/25 1241 COLOR UA Yellow TURBIDITY Hazy* SPECIFIC GRAVITY, URINE 1.023 NITRITE UA Negative PH URINE 6.0 LEUKOCYTE ESTERASE Small* PROTEIN 50 mg/dL* KETONES (URINE) 20 mg/dL* UROBILINOGEN <1.1 eu/dL BLOOD Large* R. B. CELLS 197* WBC UA 25* Echo complete W/O contrast Result Date: 02/26/2025 Left Ventricle: Left ventricle is small. Systolic function is normal with an ejection fraction of 60-65%. No segmental wall motion abnormalities. Grade I diastolic dysfunction (impaired relaxation) is present. Lateral E' is 11.70 cm/s. Medial E' is 7.94 cm/s. Right Ventricle: Right ventricular sizeappears normal. The right ventricular basal diameter is 22.0 mm. Systolic function is normal. Aortic Valve: There is trace to mild regurgitation. There is no evidence of aortic valve stenosis. Imaging Studies: Procedure Component Value Units Date/Time X-ray chest 1 view [[id number]] Collected: 03/09/25 1158 Order Status: Completed Updated: 03/09/25 1201 Narrative: CHEST 1 VIEW HISTORY: Lines and tubes COMPARISON: 03/09/2025, 4:54 AM IMPRESSION: * Left chest tube has been advanced with tip now located more medially and side port at the junction of the pleural space and chest wall. Left pneumothorax has increased in size with new basilar component and apical component measuring 1.4 cm. * Bibasilar opacities unchanged, atelectasis versus pneumonia. * Stable ET tube, gastric drainage tube, esophageal probe, and right IJ central venous catheter. * Small amount of fluid in the right chest wall. Request made to convey findings of study to ordering service on 03/09/2025 at 12:00 PM Finalized by Gregory Childers MD on 03/09/2025 11:59 AM X-ray abdomen ap 1 view [[id number]] Collected: 03/09/25 0937 Order Status: Completed Updated: 03/09/25 0939 Narrative: Clinical history: Exploratory laparotomy. Instrument count. ABDOMEN: 03/09/2025 IMPRESSION: A portable image of the abdomen was obtained in supine position. No radiopaque foreign body is evident. The enteric tube extends to the left mid abdomen. Finalized by Geremias Howe MD on 03/09/2025 9:38 AM I have personally reviewed this study. Cultures: Microbiology Results Procedure Component Value Units Date/Time Urine Culture Urine, Indwelling Catheter [[id number]] (Abnormal) Collected: 03/07/25 1122 Specimen: Urine, Indwelling Catheter Updated: 03/08/25 0949 CULTURE RESULTS 50,000-100,000 CFU/mL Enterococcus species Medications: cefTRIAXone (ROCEPHIN) IV, 2,000 mg, intravenous, Q24H chlorhexidine, 15 mL, mouth/throat, BID folic acid, 1 mg, oral, Daily insulin lispro, 2-10 Units, subcutaneous, Q4H metroNIDAZOLE, 500 mg, intravenous, Q12H pantoprazole, 40 mg, intravenous, Q12H Thank you for allowing us to participate in the care of this patient. Please call with questions. - ELLIOTT RENDON 03/09/25 2:12 PM ELLIOTT Rendon 03/09/25 1449 * Dariana Guerrero MD - 03/09/2025 7:07 AM EDT Images from the original note were not included. Colorectal Surgery Daily Progress Note Patient Name: Caren Suarez Admit Date: 02/25/2025 Length of Stay: 12 Days Admitting Physician: Deena Branch MD Subjective: Patient is postoperative day 2 from exploratory laparotomy, total colectomy, left in discontinuity,and BSO on 03/07/2025. Patient's surgery was complicated by obstructive shock and cardiac collapse resulting in need for ACLS. ROSC was obtained and patient was transferred to the SICU postoperatively. This morning patient remains on vasopressin at 0.04, however, epinephrine/levophed have been weanedoff. Continues to grimace upon palpation during exam. Objective: Vitals: 03/09/25 0610 BP: Pulse: 82 Resp: 22 Temp: 36.6 ??C (97.9 ??F) SpO2: 97% Temp: [36.3 ??C (97.3 ??F)-37.8 ??C (100 ??F)] 36.6 ??C (97.9 ??F) Pulse: [77-124] 82 Resp: [9-26] 22 Arterial Line BP: (78-154)/(39-69) 120/55 FiO2 (%): [40 %-70 %] 40 % SpO2: [93 %-98 %] 97 % O2 Device: Endotracheal tube Allergies Allergen Reactions Penicillin Intake/Output last 3 shifts: I/O last 3 completed shifts: In: 8621.3 [I.V.:4807.1; Blood:2649; NG/GT:30; IV Piggyback:1135.3] Out: 3950 [Urine:2050; Drains:1750; Chest Tube:150] Intake/Output this shift: No intake/output data recorded. Dietary Orders (From admission, onward) Start Ordered 03/08/25 1110 Adult diet NPO; STRICT, IN DISCONTINUITY Diet effective now Question Answer Comment Diet Type: NPO Nursing Instructions: STRICT, IN DISCONTINUITY 03/08/25 1109 Physical Exam General: Remains intubated, requiring vasopressors HENT: Head atraumatic, normocephalic, external ears and nose are normal Eyes: Conjunctivae clear, non-icteric, EOMI Pulmonary: On mechanical ventilator, PRVC AC 22 / 400 / 14 / 40% Cardiovascular: tachycardic, requiring vasopressors Abdomen: Soft, non-distended, ABThera wound VAC in place draining serosanguineous fluid Musculoskeletal: Range of motion grossly normal x4 extremities, no deformity x4 extremities Neurological: Motor and sensation grossly intact Skin: Warm, dry, without jaundice 24 hour urine output: 630 mL 24 hour wound VAC output: 1100 mL Laboratory Data: Lab Results Component Value Date WBC 15.5 (H) 03/09/2025 HGB 12.7 03/09/2025 HCT 39.3 03/09/2025 MCV 81 03/09/2025 PLT 155 03/09/2025 Lab Results Component Value Date GLU 109 (H) 03/09/2025 CALCIUM 8.1 (L) 03/09/2025 K 4.9 03/09/2025 CO2 25 03/09/2025 CL 109 03/09/2025 BUN 30 (H) 03/09/2025 CREATININE 1.25 (H) 03/09/2025 No results found for: AMYLASE No results found for: LIPASE Lab Results Component Value Date ALT 33 (H) 03/08/2025 AST 108 (H) 03/08/2025 ALKPHOS 37 (L) 03/08/2025 Lab Results Component Value Date INR 1.7 (H) 03/09/2025 INR 1.6 (H) 03/08/2025 INR 1.6 (H) 03/08/2025 PROTIME 19.0 (H) 03/09/2025 PROTIME 17.9 (H) 03/08/2025 PROTIME 18.5 (H) 03/08/2025 cefTRIAXone (ROCEPHIN) IV, 2,000 mg, intravenous, Q24H chlorhexidine, 15 mL, mouth/throat, BID folic acid, 1 mg, oral, Daily insulin lispro, 2-10 Units, subcutaneous, Q4H metroNIDAZOLE, 500 mg, intravenous, Q12H pantoprazole, 40 mg, intravenous, Q12H calcium gluconate OR calcium gluconate OR calcium gluconate dextrose dextrose 5 % in water dextrose 50 % in water (D50W) glucagon (human recombinant) heparin (porcine) hydrALAZINE magnesium sulfate OR magnesium sulfate midazolam ondansetron potassium chloride OR potassium chloride potassium chloride in water OR potassium chloride in water sodium phosphate IV OR sodium phosphate IV - central line OR sod phos di, mono-K phos mono sodium chloride sodium chloride sodium chloride 0.9 % Imaging: X-ray chest 1 view Clinical history: Chest tube. Comparisons: 03/06/2025 through 03/08/2025. Findings: AP portable semiupright chest radiograph obtained. Endotracheal tube terminates 5.2 cm above the level of the venecia. PH probe tip terminates in mid to distal third of the esophagus. Nasogastric tube terminates within stomach and left upper abdomen off the radiograph. Left-sided chest tube with good see with an extrapleural sidehole within the soft tissues of the left lateral chest. Subcutaneous emphysema has decreased bilaterally. A right IJ central venous catheter unchanged with tip in SVC. Improvement in prominently central left-sided airspace disease. Mild right basilar atelectasis persists. There is a 1 cm left apical pneumothorax. Costophrenic angles appear sharp. IMPRESSION: 1. There is a 1 cm left apical pneumothorax. Sidehole of the left-sided chest tube is outside of the pleural space in the left lateral chest wall. 2. Improved aeration of the left lung. Finalized by Arsalan Lott MD on 03/09/2025 5:24 AM Assessment: Caren Suarez is a 69 y.o. 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 Patient's surgery was complicated by obstructive shock and cardiac collapse resulting in need for ACLS. [facility] 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 2.2 cm right interpolar renal mass concerning for RCC Right-sided PE Multiple DVT Pulmonary nodules likely metastasis Obstructive shock from PE on vasopressors Status post cardiac arrest Acute blood loss anemia Coagulopathy Metabolic acidosis Acute respiratory failure requiring mechanical ventilation Plan: Strict NPO Continue antibiotics Plan for return to the OR today for second look exploratory laparotomy today, ostomy creation The procedure, the risks, the benefits, and alternatives were all discussed with the patient's mother (next of kin) and she provided verbal consent over the phone to proceed. Appreciate remainder of care per critical care team Dariana Guerrero MD General Surgery Resident, PGY-5 Colorectal Surgery 6a - 6p Pager: [phone] 6p - 6a Pager: [phone] Cosigned by Ghassan Castillo MD at 03/09/2025 8:10 AM EDT Associated attestation - Ghassan Castillo MD - 03/09/2025 8:10 AM EDT Attending Attestation: I saw the patient. I participated and was physically present during the critical/fuentes portions of the service. I was directly involved in the management and treatment plan of the patient. I reviewed the resident's note. Additional Notes/Findings: Plan to returned to OR for creation of ileostomy and abdominal closure * Sarath Hoover MD - 03/09/2025 4:37 AM EDT Images from the original note were not included. SICU Academic Critical Care PROGRESS NOTE Admission Date: 02/25/2025 5:24 PM Attending Physician: Deena Branch MD Date of 1955 Hospital Day: 12 day(s) Caren Suarez is a 69 y.o. female with past medical history of DVT, HTN, who was admitted to [facility] after a CT A/P at an OSH demonstrated large partially solid cystic lesions. At that time she was found to have multiple DVTs and PEs. She was transferred to [facility] for a higher level of care. On arrival, her DVTs were being treated with heparin. Colorectal surgery was consulted on 03/07 for possible bowel obstruction. At that time a CT A/P demonstrated colonic dilation with transition at the sigmoid junction. There is concern for acute malignant obstruction for known mucinous adenocarcinoma with colorectal origin. After stabilization of the patient's INR with [facility] on 03/07, the decisionwas made to take her to the operating room as a joint case between Colorectal on [employer] Specialist/Onc. At the beginning of the case, patient initially desaturated prior to incision. It was believed thatthis was due to the significant malignant ascites compressing the lungs. Decision was made to proceed with the case, and after decompression the patient's respiratory status significantly improved. The patient later went into cardiac arrest within the operating room and a code was initiated. Compressions were begun, epi was administered. After 2 rounds of compressions ROSC was obtained. ABThera was placed and the patient was transferred to the surgical ICU intubated and sedated. Overnight Events: Vaso at 0.04, levo weaned. Oxygen requirement improving. Lactate improved. K uptrending to 4.9. Will go to OR today for second look and closure. Physical Exam: Vital Signs: BP 142/68 Pulse 90 Temp 36.7 ??C (98.1 ??F) Resp 22 Ht 157.5 cm (5' 2.01 ) Wt 84.4 kg (186 lb 1.1 oz) SpO2 97% BMI 34.02 kg/m?? General: Sedated HENT: Head atraumatic, normocephalic, external ears and nose are normal Eyes: Conjunctivae clear, non-icteric, EOMI Pulmonary: Intubated and ventilated Cardiovascular: Regular rate and rhythm, radial pulses 2+, non-edematous x4 extremities Abdomen: Abthera in place Musculoskeletal: Range of motion grossly normal x4 extremities, no deformity x4 extremities Neurological: CN 2-12 grossly intact, sensation grossly intact Skin: Warm, dry, without jaundice Intake/Output Summary (Last 24 hours) at 03/09/2025 0437 Last data filed at 03/09/2025 0413 Gross per 24 hour Intake 3641.49 ml Output 1825 ml Net 1816.49 ml O2 Device: Endotracheal tube Ventilator Settings Vent Mode: PRVC-AC FiO2 (%): 40 % Resp Rate (Set): 22 Avea Vt (Set, L): 0.4 Liter PEEP/CPAP (cm H2O): 14 cm H20 Insp Time (sec): 0.92 sec Trigger Sensitivity Flow (L/min): 1 L/min Trigger Sensitivity Pressure (cm H2O): 3 cm H2O Humidification: Heat and moisture exchanger Invasive Hemodynamic [place] Results from last 3 days Lab Units 03/09/25 0325 03/08/25 2348 03/08/25 17103/08/25 1113 03/08/25 0455 03/08/25 0043 03/08/25 0032 03/07/25 0626 03/06/25 0536 BUN mg/dL 30* -- -- -- 28* -- 29* 35* 33* CREATININE mg/dL 1.25* -- -- -- 1.07* -- 1.18* 1.16* 1.22* POTASSIUM mmol/L 5.0 4.7 4.4 3.7 4.2 -- 3.5 3.7 4.2 POC POTASSIUM mmol/L -- -- -- -- -- 3.4* -- -- -- CO2 mmol/L 25 -- -- -- 21* -- 19* 22 18* CHLORIDE mmol/L 109 -- -- -- 106 -- 105 103 104 MAGNESIUM mg/dL 1.9 -- -- -- 2.0 -- 2.1 2.6 2.6 AST U/L -- -- -- -- -- -- 108* -- -- ALT U/L -- -- -- -- -- -- 33* -- -- ALK PHOS U/L -- -- -- -- -- -- 37* -- -- Results from last 3 days Lab Units 03/09/25 0325 03/08/25 1710 03/08/25 0348 03/08/25 0032 03/07/25 1940 03/06/25 1401 INR 1.7* 1.6* 1.6* 2.3* 1.9* 4.2* PROTIME sec 19.0* 17.9* 18.5* 25.8* 21.2* 47.8* Results from last 3 days Lab Units 03/09/25 0332 03/08/25 2151 03/08/25 1302 03/08/25 0348 03/08/25 0043 03/08/25 0032 03/07/25 0626 03/06/25 1401 03/06/25 0536 WBC x10E9/L 15.5* -- -- 5.2 -- 19.0* 17.9* -- 15.4* HEMOGLOBIN g/dL 12.7 12.7 12.9 10.8* -- 5.6* 11.0* 11.2* 11.2* HEMATOCRIT % 39.3 39.2 38.5 32.6* -- 18.7* 35.3 -- 35.8 PORTABLE HEMATOCRIT % -- -- -- -- 17* -- -- -- -- PLATELETS X10E9/L 155 -- 187 165 -- 179 341 366 358 MCV fL 81 -- -- 80 -- 78* 75* -- 74* MCH pg 26.2* -- -- 26.7* -- 23.2* 23.2* -- 23.0* MCHC g/dL 32.4 -- -- 33.2 -- 29.7* 31.1* -- 31.3* RDW % 22.5* -- -- 22.4* -- 20.1* 19.8* -- 20.6* Microbiology Results Procedure Component Value Units Date/Time Urine Culture Urine, Indwelling Catheter [[id number]] (Abnormal) Collected: 03/07/25 1122 Specimen: Urine, Indwelling Catheter Updated: 03/08/25 0949 CULTURE RESULTS 50,000-100,000 CFU/mL Enterococcus species Glucose Results from last 7 days Lab Units 03/09/25 0331 03/09/25 0325 03/08/25 2351 03/08/25 1925 03/08/25 1709 03/08/25 1506 03/08/25 1408 03/08/25 1257 03/08/25 1208 03/08/25 1109 03/08/25 1013 03/08/25 0832 BEDSIDE GLUCOSE mg/dL 109* -- 110* 112* 108* 108* 107* 140* 165* 194* 222* 287* GLUCOSE mg/dL -- 108* -- -- -- -- -- -- -- -- -- -- Lines/Drains CVC Triple Lumen 03/07/25 Right Internal Jugular (Active) Precautions Standard precautions;Hand hygiene;Gloves 03/08/25 0300 Lumen 1 Proximal 03/08/25 0300 Lumen 1 Status Blood return noted;Flushed;Infusing 03/08/25 0300 Lumen 2 Medial 03/08/25 0300 Lumen 2 Status Blood return noted;Flushed;Infusing 03/08/25 0300 Lumen 3 Distal 03/08/25 0300 Lumen 3 Status Blood return noted;Flushed;Infusing 03/08/25 0300 Site Assessment Clean;Dry;Intact 03/08/25 0000 Dressing Type Transparent;Occlusive 03/08/25 0300 Dressing Status Clean;Dry;Intact 03/08/25 0300 Dressing Intervention Initial dressing 03/08/25 0300 Line Necessity Peripherally incompatible solution 03/08/25 0300 Line Necessity Reviewed With cc 03/08/25 0300 Patient Tolerance of Line Care Tolerated well 03/08/25 0300 Central Line Dressing Change Due (Non-Gauze) 03/15/25 03/08/25 0000 Peripheral IV 03/05/25 Anterior;Left Forearm (Active) Line Status Infusing;Flushed 03/08/25 0300 Site Assessment Clean;Intact;Dry 03/08/25 0300 Dressing Type Transparent;Occlusive 03/08/25 0300 Dressing Status Intact;Clean;Dry 03/08/25 0300 Dressing Intervention Initial dressing 03/08/25 0300 Dressing Change Due (Non-Gauze) 03/12/25 03/05/25 0649 Peripheral IV 03/06/25 Anterior;Right Forearm (Active) Line Status Infusing;Flushed 03/08/25 0300 Site Assessment Clean;Dry;Intact 03/08/25 0300 Dressing Type Transparent;Occlusive 03/08/25 0300 Dressing Status Intact;Dry;Clean 03/08/25 0300 Dressing Intervention Initial dressing 03/08/25 0300 Dressing Change Due (Non-Gauze) 03/13/25 03/06/25 2105 Chest Tube 03/08/25 Left (Active) Function -20 cm H2O 03/08/25 0300 Air Leak No 03/08/25 0300 (1) Drainage Description Serosanguineous 03/08/25 0300 (1) Dressing Type Gauze;Occlusive 03/08/25 0300 (1) Dressing Status Clean;Dry;Intact 03/08/25 0300 (1) Dressing Intervention Initial dressing 03/08/25 0300 (1) Site Assessment Clean;Intact;Dry 03/08/25 0300 Output (mL) 20 mL 03/08/25 0600 Negative Pressure Wound Therapy 03/07/25 Surgical Quadrant;Mid Abdomen (Active) Assessed: Compressed 03/08/25 0300 Cycle Continuous 03/08/25 0300 Target Pressure (mmHg) 125 03/08/25 0300 Dressing Status Clean;Dry;Intact 03/08/25 0300 Dressing Changed New 03/08/25 0000 Output (mL) 200 mL 03/08/25 0600 NG/OG Tube 03/08/25 Left nostril (Active) Placement Verification External length measured 03/08/25 0300 Status Suction-low intermittent 03/08/25 0300 Tube Site Care Completed 03/08/25 0300 Secured at (cm) 55 cm 03/08/25 0300 Securement Method Securing device (Describe) 03/08/25 0300 Dressing Status/Interventions Clean;Dry;Intact 03/08/25 0300 Drainage Appearance Bile 03/08/25 0300 Urinary Catheter 03/06/25 Single lumen (Active) Catheter Status Patent 03/08/25 0300 Site Assessment Clean;Skin intact 03/08/25 0300 Collection Container Standard drainage bag/container 03/08/25 0300 Securement Method Right 03/08/25 0300 Tamper Evident Seal Intact Yes 03/08/25 0300 Indication for Continuation Uro/jewel bearing turner surgical considerations 03/08/25 0000 Urine Color Yellow/straw 03/08/25 0300 Urine Appearance Clear 03/08/25 0300 Output (mL) 50 mL 03/08/25 0700 ETT 03/07/25 Cuffed;Inflated Oral (Active) Secured at (cm) 22 cm 03/08/25 0300 Measured from Lips 03/08/25 0300 Secured Location Center 03/08/25 0200 Secured by Commercial tube du 03/08/25 0300 Cuff Pressure (cm H2O) 30 cm H2O 03/08/25 0200 Arterial Line 03/07/25 Left Radial (Active) Line Status Infusing;Blood return noted;Pulsatile blood flow;Flushed 03/08/25 0300 Line Interventions Zeroed and calibrated;Leveled;Connections checked and tightened;Pressure bag maintained 03/08/25 030 Waveform Appropriate 03/08/25 030 Site Assessment Clean;Intact;Dry 03/08/25 0300 Dressing Type Transparent;Occlusive 03/08/25 0300 Dressing Status Clean;Dry;Intact 03/08/25 030 Dressing Intervention Initial dressing 03/08/25 0300 Color/Movement/Sensation Capillary refill less than 3 sec 03/08/25 0300 Patient Tolerance of Line Care Tolerated well 03/08/25 0300 Line Necessity Invasive hemodynamic monitoring 03/08/25 030 Line Necessity Reviewed With cc 03/08/25 030 Dressing Change Due (Non-Gauze) 03/15/25 03/08/25 0000 ACTIVE PROBLEM LIST: S/p cardiac arrest Malignant bowel obstruction s/p total colectomy and bilateral salpingo-oophorectomy Pulmonary embolism Multiple DVT Moderate left pneumothorax Blood loss anemia Hypocalcemia Shock Leukocytosis Bacterial Peritonitis Ovarian Cystic Lesion ASSESSMENT/PLAN: Caren Suarez is a 69 y.o. female who is s/p total colectomy and bilateral salpingo-oophorectomy for malignant bowel obstruction for known mucinous adenocarcinoma. 1. Neuro S/p cardiac arrest CT Head without contrast: No acute intracranial process. Hospital Meds: Sedation: versed, fentanyl RASS Goal: -1 to 0 Analgesia: fentanyl Other: n/a Home Meds: N/a 2. Pulmonary Pulmonary embolism, multiple DVT - CTA Chest 03/08/25:Slightly decreased burden of right sided pulmonary emboli. No new emboli. Left chest tube, moderate left pneumothorax, significant subcutaneous emphysema, mild dependent edema and consolidation left lung. Vascular venous duplex 02/24/25 Acute femoropopliteal deep vein thrombosis, acute deep tibioperoneal vein thrombosis, acute deep calf muscle vein thrombosis - Vascular Surgery is consulted: plan is pending - Pt restarted on heparin, held today at 2am for planned operation Left chest tube - 80 cc output 03/09/26 CXR: There is a 1 cm left apical pneumothorax. Sidehole of the left-sided chest tube is outside of the pleural space in the left lateral chest wall. Improved aeration of the left lung. 03/08/25 CXR: Left chest tube has been pulled back, with tip remaining in the hemithorax however sideport outside of the pleural space in the chest wall Breathing Support: ET tube, PRVC-AC Settings: FiO2 40%, respiratory rate 22, PEEP 14 SpO2: 97% Continuous pulse oximetry Hospital Meds: None Home Meds: None 3. Cardiovascular S/p cardiac arrest, shock Hemodynamics: Tachycardic, sinus rhythm Hypotensive Pressors: Vaso Goal MAP >65 Continuous cardiac monitoring Hospital Meds: Heparin SQH, held for operation today Home Meds: Unknown PMH: Hypertension, previous DVTs PSH: None known Code Status: Full 4. GI Malignant bowel obstruction s/p total colectomy and bilateral salpingo-oophorectomy Status post total colectomy, left in discontinuity, ABThera in place 03/07/25 Plan for second look and closure today 03/09/25 Diet: NPO Bowel Function: Await return of bowel function Hospital Meds: N/a Home Meds: None known 5. Renal/Genitourinary Hypocalcemia Metabolic acidosis, resolved - Lactate 1.9 from 2.8 Lab Results Component Value Date SODIUM 140 03/09/2025 SODIUM 138 03/08/2025 SODIUM 137 03/08/2025 CL 109 03/09/2025 CL 106 03/08/2025 CL 105 03/08/2025 K 5.0 03/09/2025 K 4.7 03/08/2025 K 4.4 03/08/2025 CO2 25 03/09/2025 CO2 21 (L) 03/08/2025 CO2 19 (L) 03/08/2025 Electrolytes: Lab Results Component Value Date BUN 30 (H) 03/09/2025 BUN 28 (H) 03/08/2025 BUN 29 (H) 03/08/2025 CREATININE 1.25 (H) 03/09/2025 CREATININE 1.07 (H) 03/08/2025 CREATININE 1.18 (H) 03/08/2025 CALCIUM 8.1 (L) 03/09/2025 CALCIUM 8.4 (L) 03/08/2025 CALCIUM 8.3 (L) 03/08/2025 MG 1.9 03/09/2025 MG 2.0 03/08/2025 MG 2.1 03/08/2025 PHOSPHORUS 3.8 03/09/2025 PHOSPHORUS 5.4 (H) 03/08/2025 Will replace electrolytes PRN per ICU protocol Fluid Balance: On LR at 100ml/hr IV Fluids: 2.58 L UOP/24 H: 600ml Net Fluid/24H: +2.2 L Strict monitoring of Ins and Outs Hospital Meds: none Home Meds: None known 6. Heme Blood loss anemia Labs: Lab Results Component Value Date HGB 12.7 03/09/2025 HGB 12.7 03/08/2025 HGB 12.9 03/08/2025 PLT 155 03/09/2025 PLT 187 03/08/2025 PLT 165 03/08/2025 Lab Results Component Value Date INR 1.7 (H) 03/09/2025 INR 1.6 (H) 03/08/2025 INR 1.6 (H) 03/08/2025 Type and Screen: A neg Blood Products Administered: 3U PRBC (03/08/25 at 0200) Will continue to monitor Hgb and transfuse PRN H&H q8h, stable 7. ID Leukocytosis Bacterial Peritonitis Ovarian Cystic Lesion - Infectious disease is onboard - Completed course of abx for peritonitis - Continue ceftriaxone and metronidazole empirically Tmax/24H: 37.8 Labs: Lab Results Component Value Date WBC 15.5 (H) 03/09/2025 WBC 5.2 03/08/2025 WBC 19.0 (H) 03/08/2025 Micro: Urine culture positive 50,000-100,0000 Enterococcus species Peritoneal fluid culture collected 02/28/25: [facility] Hospital Meds: Antibiotics: rocephin and flagyl 8. Endocrine Lab Results Component Value Date GLU 109 (H) 03/09/2025 GLU 108 (H) 03/09/2025 GLU 110 (H) 03/08/2025 Goal Blood Glucose <180 mg/dL Hospital Meds: ISS PMH: none known 9. Musculoskeletal PMH: n/a PSH: n/a PT/OT when able 10. Prophylaxis Respiratory: none GI: protonix DVT: SCD Cuffs, SQH held 11. Lines PIV x2 L radial A line Camara Right IJ CVC ETT tube L chest tube NG tube Disposition: Critical, ICU Plan and management were discussed with the attending Dr. Daniel Hoover MD SICU Resident, PGY-1 Cosigned by Wili Sanchez MD at 03/09/2025 10:33 AM EDT Associated attestation - Wili Sanchez MD - 03/09/2025 10:33 AM EDT Name: Caren Suarez Date: 03/09/2025 Length of Stay: 12 day(s) ACTIVE PROBLEM LIST: S/p cardiac arrest Malignant bowel obstruction s/p total colectomy and bilateral salpingo-oophorectomy Pulmonary embolism Multiple DVT Moderate left pneumothorax Blood loss anemia Hypocalcemia Shock Leukocytosis Bacterial Peritonitis Ovarian Cystic Lesion ASSESSMENT/PLAN: Caren Suarez is a 69 y.o. female who is s/p total colectomy and bilateral salpingo-oophorectomy for malignant bowel obstruction for known mucinous adenocarcinoma. . 1. Neuro: Neurochecks Goal RASS of 0 Sedation: Versed Analgesia: Fentanyl 2. Cardio: Continues hemodynamic monitoring Maintain map above 65 Hypotension: Vasopressin drip Pulmonary embolus. Heparin drip on hold for surgery 3. Resp: Maintain O2 sat > 92% Monitor for signs and respiratory distress Will decrease PEEP to 12 Ventilator Settings Vent Mode: PRVC-AC FiO2 (%): 100 % Resp Rate (Set): 22 Avea Vt (Set, L): 0.4 Liter PEEP/CPAP (cm H2O): 14 cm H20 Insp Time (sec): 0.92 sec Trigger Sensitivity Flow (L/min): 1 L/min Trigger Sensitivity Pressure (cm H2O): 3 cm H2O Humidification: Heat and moisture exchanger 4. GI: NPO/NG tube Open abdomen/bowel in discontinuity Returned to OR today 5. Heme: Monitor H&H Transfuse for hb less than 7 or symptomatic anemia 6. Renal: Monitor urine output Monitor renal function ICU electrolyte replacement protocol 7. ID: Monitor for signs and symptoms of sepsis Continues on ceftriaxone and Flagyl 8. Endo: Monitor blood sugar Use insulin sliding scale as needed 9. MS: Pressure ulcer prophylaxis 10: Prophylaxis: DVT mechanical prophylaxis DVT chemical prophylaxis discontinue heparin drip GI prophylaxis Protonix 11. Lines: PIV x2 L radial A line Camara Right IJ CVC ETT tube L chest tube NG tube Dispo: Critical This patient remains critically ill and requires constant monitoring and titration of care by a Critical Care Drawer In [place]. Failure to do so may result in further organ system failure, imminent deterioration, or . Critical care time spent directly with the patient and family: 33 Critical care was time spent personally by me on the following activities: Development of treatmentplan with the patient or surrogate, discussions with consultants, discussions with the primary provider, ordering and performing treatments and interventions, ordering and review of laboratory studies, ordering and review of radiographic studies, pulse oximetry, re-evaluation of patient's condition, review of old charts, vascular access procedures, evaluation of patient's response to treatment, examination of patient, interpretation of cardiac output measurements and obtaining history from patient or surrogate Electronically signed by Wili Sanchez MD [facility] General Surgeons Trauma, Acute Care Surgery and Surgical Critical Care * Brenda Hayes MD - 03/08/2025 5:36 PM EDT Images from the original note were not included. [facility] Artur Small, [facility] Nephrology Consultation Note Patient Name: Caren Suarez : 1955 Date of Service: 03/08/25 PCP: Riya Diego MD Attending Physician: Ghassan Castillo MD Admission Date: 02/25/2025 Length of stay: LOS: 11 days Chief complaint. No chief complaint on file. Reason for Consult: Acute Kidney Injury Assessment and Plan. 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 She reports having a hard time breathing and a cough that went away ( she has had a hard time breathing and had a cough but it went away ). She had been treated by her PCP with steroids and antibiotics without improvement. An outpatient CT abdomen/pelvis on 02/24/2025 revealed a large right adnexal mass, a solid right renal lesion, and likely metastases to the lungs and abdomen. Venous duplex showed bilateral DVTs. She was transferred from [place] to [facility] for further evaluation and management. In the emergency department, she was started on a heparin drip. Workup upon admission included a CTA chest on 02/25/2025, which confirmed moderate right-sided pulmonary emboli without right heart strain. She is currently being treated for a urinary tract infection and bacterial peritonitis with IV Rocephin and Flagyl, with Infectious Disease on board. Nephrology consultation was requested for acute kidney injury. Assessment Acute Kidney Injury, likely multifactorial with hemodynamic and prerenal components, with concern for acute tubular necrosis (ATN). Baseline creatinine is approximately 0.9 mg/dL. The TASHA is in the setting of sepsis, treatment for bacterial peritonitis, and obs uropathy , There was contrast exposure on 02/24/2025. Right hydrnephrosis, 2.2 cm right renal mass lesion Urology evaluated the patient Mild hyponatremia on initial evaluation. Metabolic acidosis on initial evaluation. Volume Status: Euvolemic , possibly on low side Hypertension: Stable, though has been on the higher side. Hemodynamics: Echocardiogram on 02/26/2025 showed a normal LVEF of 60-65% with Grade I diastolic dysfunction and no evidence of right heart strain. Anemia Most recent hemoglobin is 10.8 g/dL. Sepsis secondary to bacterial peritonitis and UTI. 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 ? Rectal ca Acute pulmonary embolism and bilateral DVT. Malignant Bowel obstruction , patient is status post exploratory laparotomy, total colectomy, left in discontinuity, and BSO on 03/07/2025 Cardiac arrest intraoperatively, 03/07/2025 needing ACLS. Ventilator dependent respiratory failure postoperatively Plan One dose of lasix , continue IV fluids as ordered Renal function stable, continue to monitor Vasopressor , ventilator support per critical Care Strict ins and outs / accurate documentation of urine out put / daily weights and Bladder scan Q12 Avoid nephrotoxins, avoid contrast exposure unless absolutely necessary, avoid hemodynamic instability Dose all medications to GFR Monitor Renal Chem panel daily in AM Thank you for this consultation, we will follow along with you regarding care of this patient whilethe patient is here in the hospital, please call if you have any questions or concerns. BRENDA HAYES MD on 03/08/2025 at 5:36 PM [facility] [email or web address] - is now [employer] Schedule : See Epic on-call schedule for [facility] ( [facility] ) Nephrology Working Hours : Epic chat during working hours, if no response please use on- call physician reach out as below After Hours : Answering service contact : [phone] Office Phone number: [phone] Subjective Patient seen at bedside, she is status post surgery Currently on ventilator Past Medical History: Diagnosis Date Deep vein thrombosis ([facility]) No past surgical history on file. Family History Problem Relation Age of Onset Breast cancer Neg Hx Social History Socioeconomic History Marital status: Single Spouse name: Not on file Number of children: Not on file Years of education: Not on file Highest education level: Not on file Occupational History Not on file Tobacco Use Smoking status: Former Types: Cigarettes Smokeless tobacco: Never Substance and Sexual Activity Alcohol use: Never Drug use: Never Sexual activity: Not on file Other Topics Concern Not on file Social History Narrative Not on file Social Drivers of Health Financial Resource Strain: Not on file Food Insecurity: No Food Insecurity (02/25/2025) Hunger Screening Food Insecurity - Worry: Never True Food Insecurity - Inability: Never True Transportation Needs: No Transportation Needs (02/25/2025) PRAPARE - Transportation Lack of Transportation (Medical): No Lack of Transportation (Non-Medical): No Physical Activity: Not on file Stress: Not on file Social Connections: Not on file Interpersonal Safety: Not At Risk (02/25/2025) Humiliation, Afraid, Rape, and Kick questionnaire Fear of Current or Ex-Partner: No Emotionally Abused: No Physically Abused: No Sexually Abused: No Housing Instability: Low Risk (02/25/2025) Housing Instability Housing Instability: No Prior to Admission medications Medication Sig Start Date End Date Taking? Authorizing Provider apixaban (ELIQUIS) 5 mg tablet Take 2 tablets (10 mg total) by mouth 2 (two) times a day for 7 days, THEN 1 tablet (5 mg total) 2 (two) times a day for 30 days. 03/05/25 04/11/25 Eleni Harding APRN-ASSISTANT DIRECTOR OF [employer] Allergies Allergen Reactions Penicillin Physical Exam: VITALS BP 142/68 Pulse 89 Temp 37.1 ??C (98.8 ??F) Resp 22 Ht 157.5 cm (5' 2.01 ) Wt 79.4 kg (175 lb 0.7 oz) SpO2 96% BMI 32.01 kg/m?? Wt Readings from Last 3 Encounters: 03/07/25 79.4 kg (175 lb 0.7 oz) 02/24/25 74.4 kg (164 lb) BMI: Body mass index is 32.01 kg/m??. I/O (24 Hours) Intake/Output Summary (Last 24 hours) at 03/08/2025 1736 Last data filed at 03/08/2025 1700 Gross per 24 hour Intake 7458.44 ml Output 2745 ml Net 4713.44 ml General: Patient is currently intubated, sedated HEENT: Atraumatic, normocephalic. Anicteric sclera. [place] and moist oral mucosa. Neck supple. No JVD. Chest: Bilateral air entry, clear to auscultation, no wheezing, rhonchi or rales. Cardiovascular: RRR, S1S2, no murmur, rub or gallop. No lower extremity edema. Abdomen: Postoperative, soft Musculoskeletal: No cyanosis or clubbing. No edema Integumentary: [place], warm and dry. Free from rash or lesions. CARBIDE GRINDER: Patient is currently intubated, sedated, examination grossly nonfocal, full neurological examination could not be done due to clinical condition Medications Scheduled Meds: cefTRIAXone (ROCEPHIN) IV, 2,000 mg, intravenous, Q24H chlorhexidine, 15 mL, mouth/throat, BID folic acid, 1 mg, oral, Daily metroNIDAZOLE, 500 mg, intravenous, Q12H pantoprazole, 40 mg, intravenous, Q12H phenylephrine HCl in 0.9% NaCl, , , Continuous Infusions: dextrose 5 % in water, 100 mL/hr D5 % and 0.45 % sodium chloride, 50 mL/hr, Last Rate: Stopped (03/07/25 2226) EPINEPHrine, 0.02-0.2 mcg/kg/min, Last Rate: Stopped (03/08/25 0741) fentaNYL, 25-200 mcg/hr, Last Rate: 100 mcg/hr (03/08/25 1412) heparin, 300-3,500 Units/hr, Last Rate: 950 Units/hr (03/08/25 1612) insulin regular, 0.2-54 Units/hr, Last Rate: 2.5 Units/hr (03/08/25 1338) lactated ringer's, 100 mL/hr, Last Rate: 100 mL/hr (03/08/25 0737) midazolam, 0.5-7 mg/hr, Last Rate: 2 mg/hr (03/08/25 1019) norepinephrine, 0.01-0.4 mcg/kg/min, Last Rate: 0.08 mcg/kg/min (03/08/25 1110) sodium chloride 0.9 %, 20 mL/hr, Last Rate: Stopped (03/07/25 1704) sodium chloride 0.9 %, 20 mL/hr sodium chloride 0.9 %, 20 mL/hr vasopressin (PITRESSIN) 40 Units in sodium chloride 0.9 % 40 mL (1 Units/mL) infusion, 0.04 Units/min, Last Rate: 0.04 Units/min (03/08/25 133) PRN Meds: calcium gluconate OR calcium gluconate OR calcium gluconate dextrose dextrose 5 % in water dextrose 50 % in water (D50W) glucagon (human recombinant) heparin (porcine) hydrALAZINE magnesium sulfate OR magnesium sulfate midazolam ondansetron phenylephrine HCl in 0.9% NaCl potassium chloride OR potassium chloride potassium chloride in water OR potassium chloride in water sodium phosphate IV OR sodium phosphate IV - central line OR sod phos di, mono-K phos mono sodium chloride sodium chloride sodium chloride 0.9 % sodium chloride 0.9 % sodium chloride 0.9 % Results Review Renal Chemistry Results from last 7 days Lab Units 03/08/25 1113 03/08/25 0455 03/08/25 0043 03/08/25 0032 03/07/25625 03/06/25 0536 03/05/25 0403 SODIUM mmol/L -- 138 -- 138 135 136 138 PORTABLE SODIUM mmol/L -- -- 137 -- -- -- -- POTASSIUM mmol/L 3.7 4.2 -- 3.5 3.7 4.2 4.0 POC POTASSIUM mmol/L -- -- 3.4* -- -- -- -- CHLORIDE mmol/L -- 106 -- 105 103 104 106 CO2 mmol/L -- 21* -- 19* 22 18* 17* BUN mg/dL -- 28* -- 29* 35* 33* 23 CREATININE mg/dL -- 1.07* -- 1.18* 1.16* 1.22* 0.95 CALCIUM mg/dL -- 8.4* -- 8.3* 8.3* 9.2 9.2 MAGNESIUM mg/dL -- 2.0 -- 2.1 2.6 2.6 2.4 PHOSPHORUS mg/dL -- -- -- 5.4* -- -- -- Hepatic: Lab Results Component Value Date AST 108 (H) 03/08/2025 AST 21 02/24/2025 AST 24 02/24/2025 ALT 33 (H) 03/08/2025 ALT 15 02/24/2025 ALT 15 02/24/2025 ALKPHOS 37 (L) 03/08/2025 ALKPHOS 105 02/24/2025 ALKPHOS 100 02/24/2025 BNP Lab Results Component Value Date BNP 22 03/08/2025 BNP 34 03/06/2025 BNP 61 02/24/2025 CBC Results from last 7 days Lab Units 03/08/25 1302 03/08/25 0348 03/08/25 0043 03/08/25 0032 03/07/25 0626 03/06/25 1401 03/06/25 0536 03/05/25 0403 WBC x10E9/L -- 5.2 -- 19.0* 17.9* -- 15.4* 16.0* HEMOGLOBIN g/dL 12.9 10.8* -- 5.6* 11.0* 11.2* 11.2* 10.8* HEMATOCRIT % 38.5 32.6* -- 18.7* 35.3 -- 35.8 34.7* PORTABLE HEMATOCRIT % -- -- 17* -- -- -- -- -- PLATELETS X10E9/L 187 165 -- 179 341 366 358 391 Results from last 7 days Lab Units 03/08/25 1709 03/08/25 1506 03/08/25 1408 03/08/25 1257 03/08/25 1208 BEDSIDE GLUCOSE mg/dL 108* 108* 107* 140* 165* Urine Studies: Lab Results Component Value Date COLOR Yellow 03/06/2025 TURBIDITY Hazy (A) 03/06/2025 SPECIFICGRA 1.023 03/06/2025 NITRITE Negative 03/06/2025 PHURINE 6.0 03/06/2025 LEUKOCYTE Small (A) 03/06/2025 PROTEIN 50 mg/dL (A) 03/06/2025 KETONES 20 mg/dL (A) 03/06/2025 UROBILINOGEN <1.1 eu/dL 03/06/2025 BLOODHGB Large (A) 03/06/2025 Lab Results Component Value Date UPROCRTRAT 0.25 (H) 03/06/2025 Urine Sodium: No components found for: CRYSTAL Urine Potassium: No results found for: KUR Urine Chloride: No results found for: CLUR Urine Osmolarity: No components found for: OSMOU Urine Creatinine: No results found for: LABCREA Urine Eosinophils: No components found for: UEOS Urine Protein: No components found for: TPU Immunology Profile No results found for: PROTELECTR , SEDRATE , CRP , RF , ANASCREEN , ANTIDSDNA , C3 , C4 , ANCA , MYELOP , PROTEINASE3 , ANTIGLOMERU No results found for: HAV , HEPAIGM , HEPBIGM , HEPBCAB , HBEAG , HEPCAB SP: No results found for: SP C3:No results found for: C3 C4:No results found for: C4 MPO ANCA: No results found for: MPO PR3 ANCA: No components found for: PR3 hepatitis serologies ANTIGBM:No components found for: GBMABIGG HEPATITIS B SURFACE AG: No results found for: HEPBSAG HEPATITIS C AB: No results found for: HEPCAB Electrophoresis: SPEP:No results found for: PROT , LABALPH , LABBETA , PATH UPEP:No results found for: LABPE Anemia Profile Lab Results Component Value Date WBC 5.2 03/08/2025 WBC 19.0 (H) 03/08/2025 HGB 12.9 03/08/2025 HGB 10.8 (L) 03/08/2025 HCT 38.5 03/08/2025 HCT 32.6 (L) 03/08/2025 PLT 187 03/08/2025 PLT 165 03/08/2025 Lab Results Component Value Date IRON 12 (L) 02/26/2025 TIBC 321 02/26/2025 FERRITIN 78 02/26/2025 Bone Mineral Profile Lab Results Component Value Date CALCIUM 8.4 (L) 03/08/2025 Results from last 7 days Lab Units 03/08/25 0455 03/08/25 0032 03/07/25 0626 MAGNESIUM mg/dL 2.0 2.1 2.6 Echocardiogram: Echo complete W/O contrast Result Date: 02/26/2025 Left Ventricle: Left ventricle is small. Systolic function is normal with an ejection fraction of 60-65%. No segmental wall motion abnormalities. Grade I diastolic dysfunction (impaired relaxation) is present. Lateral E' is 11.70 cm/s. Medial E' is 7.94 cm/s. Right Ventricle: Right ventricular sizeappears normal. The right ventricular basal diameter is 22.0 mm. Systolic function is normal. Aortic Valve: There is trace to mild regurgitation. There is no evidence of aortic valve stenosis. Thank you for the consultation. Please do not hesitate to contact us for any further questions/concerns. We will continue to follow along with you. * Pro David MD - 03/08/2025 10:00 AM EDT [facility] [place] [facility] Service Progress Note Patient ID: Caren Suarez, 69 y.o. female Date of Admission: 02/25/2025 5:24 PM MRN; [id number] Referring Physician: Ghassan Castillo MD PCP: Riya Diego MD SUBJECTIVE AND INTERVAL HISTORY: Pt seen and examined at bedside. Intubated and sedation. On pressors PAST MEDICAL HISTORY/PROBLEM LIST Patient Active Problem List Diagnosis DVT (deep venous thrombosis) ([facility]) Colon cancer screening Hematochezia OBJECTIVE: Vitals Vital signs: Vitals: 03/08/25 0823 03/08/25 0900 03/08/25 1000 03/08/25 1106 BP: Pulse: 112 109 108 104 Resp: Temp: 37.2 ??C (99 ??F) 37.2 ??C (99 ??F) 37.2 ??C (99 ??F) 37.1 ??C (98.8 ??F) TempSrc: SpO2: 96% 96% 96% 97% Weight: Height: Temperature Range Last 24 Hours : Temp: 37.1 ??C (98.8 ??F) Temp Av.9 ??C (94.9 ??F) Min: 33.3??C (91.9 ??F) Max: 37.8 ??C (100 ??F) Admit Weight: 74.8 kg (164 lb 14.5 oz) Body mass index is 32.01 kg/m??. Last Weights: Wt Readings from Last 3 Encounters: 03/07/25 79.4 kg (175 lb 0.7 oz) 02/24/25 74.4 kg (164 lb) I/O's: Intake/Output Summary (Last 24 hours) at 03/08/2025 1221 Last data filed at 03/08/2025 1000 Gross per 24 hour Intake 5850.32 ml Output 2595 ml Net 3255.32 ml Respiratory Source: O2 Device: Endotracheal tube PHYSICAL EXAMINATION: General appearance: intubated and sedated Lungs: vented Abdomen: soft, open abdomen with vac in place Lower Extremities: Feet and toes warm. Good capillary refill. LABS: Results from last 7 days Lab Units 03/08/25 0348 03/08/25 0043 03/08/25 0032 03/07/25 0626 03/06/25 1401 03/06/25 0536 03/05/25 0403 WBC x10E9/L 5.2 -- 19.0* 17.9* -- 15.4* 16.0* HEMOGLOBIN g/dL 10.8* -- 5.6* 11.0* 11.2* 11.2* 10.8* HEMATOCRIT % 32.6* -- 18.7* 35.3 -- 35.8 34.7* PORTABLE HEMATOCRIT % -- 17* -- -- -- -- -- PLATELETS X10E9/L 165 -- 179 341 366 358 391 Results from last 7 days Lab Units 03/08/25 1208 03/08/25 1113 03/08/25 1109 03/08/25 1013 03/08/25 0832 03/08/25 0455 03/08/25 0351 03/08/25 0043 03/08/25 0032 03/07/25 0626 03/06/25 0536 03/05/25 0403 SODIUM mmol/L -- -- -- -- -- 138 -- -- 138 135 136 138 PORTABLE SODIUM mmol/L -- -- -- -- -- -- -- 137 -- -- -- -- POTASSIUM mmol/L -- 3.7 -- -- -- 4.2 -- -- 3.5 3.7 4.2 4.0 POC POTASSIUM mmol/L -- -- -- -- -- -- -- 3.4* -- -- -- -- CO2 mmol/L -- -- -- -- -- 21* -- -- 19* 22 18* 17* BUN mg/dL -- -- -- -- -- 28* -- -- 29* 35* 33* 23 CREATININE mg/dL -- -- -- -- -- 1.07* -- -- 1.18* 1.16* 1.22* 0.95 POC GLUCOSE mg/dL -- -- -- -- -- -- -- 245* -- -- -- -- BEDSIDE GLUCOSE mg/dL 165* -- 194* 222* 287* -- < > -- -- -- -- -- GLUCOSE mg/dL -- -- -- -- -- 298* -- -- 258* 151* 105* 123* < > = values in this interval not displayed. Results from last 7 days Lab Units 03/08/25 0348 03/08/25 0032 03/07/25 1940 03/06/25 2205 03/06/25 1401 INR 1.6* 2.3* 1.9* -- 4.2* PROTIME sec 18.5* 25.8* 21.2* -- 47.8* APTT sec -- -- 32 >150* 33 ASSESSMENT: 69 y.o. female with known history of PE and DVT, hypertension with know pelvic mass. 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 Vascular surgery consulted intra-op with concerns of respiratory failure in setting of PE. PERT alert was activated, no intervention given instability PLAN/RECOMMENDATIONS: Fu echo and CTA chest, would follow up with PERT team regarding need for intervention Start heparin gtt when stable per primary team Sixto David MD Vascular Surgery Fellow Cosigned by Marcelle Henson MD at 03/13/2025 1:34 PM EDT Associated attestation - Marcelle Henson MD - 03/13/2025 1:34 PM EDT I saw and evaluated the patient on 03/08/25, participating in the fuentes portions of the service. I reviewed the vascular fellow's note. I agree with the vascular fellow's findings and plan. * Dariana Guerrero MD - 03/08/2025 8:33 AM EDT Images from the original note were not included. Colorectal Surgery Daily Progress Note Patient Name: Caren Suarez Admit Date: 02/25/2025 Length of Stay: 11 Days Admitting Physician: Deena Branch MD Subjective: Patient is postoperative day 1 from exploratory laparotomy, total colectomy, left in discontinuity,and BSO on 03/07/2025. Patient's surgery was complicated by obstructive shock and cardiac collapse resulting in need for ACLS. ROSC was obtained and patient was transferred to the SICU postoperatively. This morning patient continues to be on vasopressors. She is on vasopressin at 0.04, epinephrine at0.06, Versed at 1.5, fentanyl 75, LR at 100. She is tachycardic. Grimaces upon palpation during exam. Objective: Vitals: 03/08/25 0823 BP: Pulse: 112 Resp: 22 Temp: 37.2 ??C (99 ??F) SpO2: 96% Temp: [33.3 ??C (91.9 ??F)-37.8 ??C (100 ??F)] 37.2 ??C (99 ??F) Pulse: [82-124] 112 Resp: [10-24] 22 BP: (120-151)/(64-71) 142/68 Arterial Line BP: (83-164)/(23-65) 106/55 FiO2 (%): [60 %-100 %] 60 % SpO2: [77 %-100 %] 96 % O2 Device: Endotracheal tube O2 Flow Rate (L/min): [0 L/min] 0 L/min Allergies Allergen Reactions Penicillin Intake/Output last 3 shifts: I/O last 3 completed shifts: In: 9075.7 [I.V.:6054.8; Blood:2649; IV Piggyback:371.9] Out: 2690 [Urine:2020; Drains:650; Chest Tube:20] Intake/Output this shift: I/O this shift: In: - Out: 50 [Urine:50] Dietary Orders (From admission, onward) Start Ordered 03/06/25 1343 Adult diet NPO Diet effective now Question: Diet Type: Answer: NPO 03/06/25 1346 Physical Exam General: intubated, requiring vasopressors HENT: Head atraumatic, normocephalic, external ears and nose are normal Eyes: Conjunctivae clear, non-icteric, EOMI Pulmonary: on mechanical ventilator, PRVC AC 22 / 500 / 16 / 70% Cardiovascular: tachycardic, requiring vasopressors Abdomen: Soft, less distended, ABThera wound VAC in place draining serosanguineous fluid Musculoskeletal: Range of motion grossly normal x4 extremities, no deformity x4 extremities Neurological: Motor and sensation grossly intact Skin: Warm, dry, without jaundice 24 hour urine output: 1720 mL 24 hour wound VAC output: 650 mL Laboratory Data: Lab Results Component Value Date WBC 5.2 03/08/2025 HGB 10.8 (L) 03/08/2025 HCT 32.6 (L) 03/08/2025 MCV 80 03/08/2025 PLT 165 03/08/2025 Lab Results Component Value Date GLU 298 (H) 03/08/2025 CALCIUM 8.4 (L) 03/08/2025 K 4.2 03/08/2025 CO2 21 (L) 03/08/2025 CL 106 03/08/2025 BUN 28 (H) 03/08/2025 CREATININE 1.07 (H) 03/08/2025 No results found for: AMYLASE No results found for: LIPASE Lab Results Component Value Date ALT 33 (H) 03/08/2025 AST 108 (H) 03/08/2025 ALKPHOS 37 (L) 03/08/2025 Lab Results Component Value Date INR 1.6 (H) 03/08/2025 INR 2.3 (H) 03/08/2025 INR 1.9 (H) 03/07/2025 PROTIME 18.5 (H) 03/08/2025 PROTIME 25.8 (H) 03/08/2025 PROTIME 21.2 (H) 03/07/2025 cefTRIAXone (ROCEPHIN) IV, 2,000 mg, intravenous, Q24H chlorhexidine, 15 mL, mouth/throat, BID fentaNYL, , , folic acid, 1 mg, oral, Daily insulin lispro, 2-16 Units, subcutaneous, Q4H metroNIDAZOLE, 500 mg, intravenous, Q12H pantoprazole, 40 mg, intravenous, Q12H phenylephrine HCl in 0.9% NaCl, , , calcium gluconate OR calcium gluconate OR calcium gluconate dextrose dextrose 50 % in water (D50W) fentaNYL glucagon (human recombinant) heparin (porcine) hydrALAZINE magnesium sulfate OR magnesium sulfate midazolam ondansetron phenylephrine HCl in 0.9% NaCl potassium chloride OR potassium chloride potassium chloride in water OR potassium chloride in water sodium phosphate IV OR sodium phosphate IV - central line OR sod phos di, mono-K phos mono sodium chloride sodium chloride sodium chloride 0.9 % sodium chloride 0.9 % sodium chloride 0.9 % sodium chloride 0.9 % Imaging: CT brain without contrast CT HEAD WITHOUT CONTRAST HISTORY: Respiratory arrest COMPARISON: None. TECHNIQUE: Routine noncontrast CT head. All CT scans at this facility use dose modulation, iterative reconstruction, and/or weight based dosing when appropriate to reduce radiation dose to as low as reasonably achievable. FINDINGS: Extensive soft tissue emphysema. No skull fractures. Small amount of fluid in the maxillary sinuses. Paranasal sinuses and temporal bone structures are otherwise clear. No acute intra-axial or extra-axial fluid collection/hemorrhage. No mass or mass effect. Kevin-white matter differentiation preserved. IMPRESSION: No acute intracranial process. Finalized by Gregory Childers MD on 03/08/2025 8:22 AM X-ray chest 1 view History: Chest tube placement Technique: A portable single frontal view of the chest was obtained. Comparison: 03/08/2025 at 12:54 AM Findings: The left lung has reexpanded since previous examination with extensive infiltrative changes in the left mid and upper lung. There is a left-sided chest tube in place. There is been intervaldevelopment of extensive subcutaneous emphysema in the left chest wall and neck bilaterally. The shifted mediastinal structures described in the prior studies the lower demonstrated. The endotracheal tube has been retracted since prior study. The venecia cannot be well visualized due to technique. There is been interval placement of a central venous catheter approaching from the right tip in thesuperior vena cava. The right lung is clear for an active process. The heart size is within normal limits. Impression: * Interval development of a large amount of subcutaneous emphysema in the left chest wall in the soft tissues of the neck bilaterally since the previous examination performed earlier today * Reexpansion of the left lung with resolution of the mediastinal shift to the left seen on the prior study * Left sided chest tube in place * Retraction of the endotracheal tube. Because of technique, the location of the venecia is difficult to determine Finalized by Chaitanya Gandara MD on 03/08/2025 2:34 AM X-ray chest 1 view History: Intubation Technique: A portable single frontal view of the chest was obtained. Comparison: 03/06/2025 Findings: There is an endotracheal tube in place with its tip extending into the right main bronchus. This should be retracted approximately 5.5 cm. There is atelectasis of the left lung is new sincethe previous examination. There is shift of the mediastinal structures toward the left. There is an enteric tube in place with its tip in the stomach but its side port at the level the gastroesophageal junction. The right lung is clear for an active process. Impression: * Endotracheal tube extends into the right main bronchus with resultant atelectasis of the left lung and shift of the mediastinal structures toward the left * Enteric tube in place with its tip in the stomach but its sidehole at the level the gastroesophageal junction. THIS REPORT CONTAINS A SIGNIFICANT RESULT AND/OR RECOMMENDATION, WHICH REQUIRES THE ATTENTION OF THE LICENSED CAREGIVER RESPONSIBLE FOR THIS PATIENT. THEREFORE, I SPECIFICALLY DESIGNATED THIS REPORT TO BE TELEPHONED BY THE RADIOLOGY DEPARTMENT. FINDINGS WERE INSTRUCTED TO BE CALLED TO THE CLINICAL SERVICE ON 03/08/2025 AT 1:34 AM. * Finalized by Chaitanya Gandara MD on 03/08/2025 1:34 AM Assessment: Caren Suarez is a 69 y.o. 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 Patient's surgery was complicated by obstructive shock and cardiac collapse resulting in need for ACLS. [facility] 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 2.2 cm right interpolar renal mass concerning for RCC Right-sided PE Multiple DVT Pulmonary nodules likely metastasis Obstructive shock from PE on vasopressors Status post cardiac arrest Acute blood loss anemia Coagulopathy Metabolic acidosis Acute respiratory failure requiring mechanical ventilation Plan: Follow-up repeat CT angiogram Continue resuscitation per SICU team Timing of take back to the operating room to be determined Dariana Guerrero MD General Surgery Resident, PGY-5 Colorectal Surgery 6a - 6p Pager: [phone] 6p - 6a Pager: [phone] Cosigned by Ghassan Castillo MD at 03/08/2025 12:55 PM EDT Associated attestation - Ghassan Castillo MD - 03/08/2025 12:55 PM EDT Attending Attestation: I saw the patient. I participated and was physically present during the critical/fuentes portions of the service. I was directly involved in the management and treatment plan of the patient. I reviewed the resident's note. Additional Notes/Findings: Patient clinically improved. Await results of CT scan. Okay for heparin ization. * Nuvia Flannery, STUDENT TRUCK DRIVER-ASSISTANT DIRECTOR OF RESIDENCE LIFE - 03/08/2025 8:15 AM EDT Images from the original note were not included. Division of Infectious Diseases Progress note Academic Team Please contact us via Cupple chat. After hours, call [phone] Patient name: Caren Suarez Patient Today's Date and Time: 03/08/2025, 8:15 AM Admission Date: 02/25/2025 Primary Care Physician: Riya Diego MD Impression and Recommendations: Leukocytosis Bacterial Peritonitis Ovarian Cystic Lesion CT a/p demonstrated large partially solid and partially cystic lesion in the R adnexa measuring 16 x 12 x 11 cm and lower anterior abdominal soft tissue nodules, 2.5 cm solid R renal lesion and diffuse intraperitoneal fluid S/P paracentesis 02/28/2025 - nucleated cells are elevated at 1900 with neutrophil predominance (60%) Peritoneal fluid culture is negative to date Abdominal soft tissue mass 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 GI signed off Documented allergy to PCN Completed course of abx for peritonitis Continue ceftriaxone and metronidazole empirically Ovarian Cystic Lesion Large bowel obstruction Large abdominal mass/colorectal adenocarinoma CT today showed colonic dilatation with transition at the sigmoid junction. Concern for obstructionfrom the known large rectal mass vs multicentric colorectal carcinoma Status post exp lap, total colectomy, bilateral salpingo-oopherectomy, vac placemement 03/07 General surgery has been consulted Intra operative cardiac arrest Acute respiratory failure Remains intubated on the vent CTA done today Vent management per critical care TASHA Nephrology following Right hydronephrosis Likely secondary to pelvic mass effect on ureter Urology following Acute PE, with R heart strain Numerous pulmonary nodules likely metastasis Subjective Interval History: Patient seen and examined at bedside. Chart reviewed Went to OR last night. Cardiac arrested in OR.Now in ICU Objective Physical Examination : BP 142/68 Pulse (!) 124 Temp 37.8 ??C (100 ??F) Resp 22 Ht 157.5 cm (5' 2.01 ) Wt 79.4 kg(175 lb 0.7 oz) SpO2 99% BMI 32.01 kg/m?? Temperature Range: Temp: 37.8 ??C (100 ??F) Temp Av.7 ??C (94.5 ??F) Min: 33.3 ??C (91.9 ??F) Max: 37.8 ??C (100 ??F) General Appearance: intubated on vent and in no apparent distress Eyes: Sclera anicteric; conjunctivae pink ENT: ETT in place Neck: Supple, without lymphadenopathy. Pulmonary/Chest: Clear to auscultation, without wheezes, rales, or rhonchi. Left sided chest tube in place Cardiovascular: Regular rate and rhythm without murmurs, rubs, or gallops. Abdomen: distended. Soft. Dressing intact Extremities: No cyanosis, clubbing, , or effusions. +BLE edema Neurologic: Bulk and tone are normal. No atrophy is noted. Skin: No rash or lesions. Laboratory data: I have independently reviewed the following labs: Results from last 7 days Lab Units 03/08/25 0348 03/08/25 0043 03/08/25 0032 03/07/25 0626 WBC x10E9/L 5.2 -- 19.0* 17.9* HEMOGLOBIN g/dL 10.8* -- 5.6* 11.0* HEMATOCRIT % 32.6* -- 18.7* 35.3 PORTABLE HEMATOCRIT % -- 17* -- -- MCV fL 80 -- 78* 75* PLATELETS X10E9/L 165 -- 179 341 Results from last 7 days Lab Units 03/08/25 0455 03/08/25 0043 03/08/25 0032 03/07/25 0626 SODIUM mmol/L 138 -- 138 135 PORTABLE SODIUM mmol/L -- 137 -- -- POTASSIUM mmol/L 4.2 -- 3.5 3.7 POC POTASSIUM mmol/L -- 3.4* -- -- CHLORIDE mmol/L 106 -- 105 103 CO2 mmol/L 21* -- 19* 22 BUN mg/dL 28* -- 29* 35* CREATININE mg/dL 1.07* -- 1.18* 1.16* CALCIUM mg/dL 8.4* -- 8.3* 8.3* ALBUMIN g/dL -- -- 1.9* -- ALK PHOS U/L -- -- 37* -- ALT U/L -- -- 33* -- AST U/L -- -- 108* -- Results from last 7 days Lab Units 03/06/25 1241 COLOR UA Yellow TURBIDITY Hazy* SPECIFIC GRAVITY, URINE 1.023 NITRITE UA Negative PH URINE 6.0 LEUKOCYTE ESTERASE Small* PROTEIN 50 mg/dL* KETONES (URINE) 20 mg/dL* UROBILINOGEN <1.1 eu/dL BLOOD Large* R. B. CELLS 197* WBC UA 25* Echo complete W/O contrast Result Date: 02/26/2025 Left Ventricle: Left ventricle is small. Systolic function is normal with an ejection fraction of 60-65%. No segmental wall motion abnormalities. Grade I diastolic dysfunction (impaired relaxation) is present. Lateral E' is 11.70 cm/s. Medial E' is 7.94 cm/s. Right Ventricle: Right ventricular sizeappears normal. The right ventricular basal diameter is 22.0 mm. Systolic function is normal. Aortic Valve: There is trace to mild regurgitation. There is no evidence of aortic valve stenosis. Imaging Studies: Procedure Component Value Units Date/Time CT angiogram chest [[id number]] Collected: 03/08/25822 Order Status: Completed Updated: 03/08/25846 Narrative: History: The since adenocarcinoma, status post total colectomy lateral salpingo- oophorectomy for malignant bowel obstruction, cardiac arrest, pulmonary embolism,, chest tube Exam: CTA chest, multiplanar reformats, thick section MIP volumes. All CT scans at this facility use dose modulation, iterative reconstruction, and/or weight based dosing when appropriate to reduce radiation dose to as low as reasonably achievable. COMPARISON: 02/25/2025, chest radiograph 03/08/2025 FINDINGS: Left chest tube tip posterior to the descending aorta. Moderate left pneumothorax, significant subcutaneous emphysema. Mild dependent edema and consolidation left lung. No endobronchial filling defects. Previously identified pulmonary nodules was obscured. ET tube 3 cm above the venecia, NG tube mid stomach, pH probe in esophagus. Previously identified moderate right-sided pulmonary emboli slightly decreased in size. No new emboli. Minimal right base atelectasis. No acute fractures. IMPRESSION: Slightly decreased burden of right sided pulmonary emboli. No new emboli. Left chest tube, moderate left pneumothorax, significant subcutaneous emphysema, mild dependent edema and consolidation left lung. Finalized by Jcarlos Rosenbaum MD on 03/08/2025 8:[address] brain without contrast [[id number]] Collected: 03/08/25818 Order Status: Completed Updated: 03/08/25822 Narrative: CT HEAD WITHOUT CONTRAST HISTORY: Respiratory arrest COMPARISON: None. TECHNIQUE: Routine noncontrast CT head. All CT scans at this facility use dose modulation, iterative reconstruction, and/or weight based dosing when appropriate to reduce radiation dose to as low as reasonably achievable. FINDINGS: Extensive soft tissue emphysema. No skull fractures. Small amount of fluid in the maxillary sinuses. Paranasal sinuses and temporal bone structures are otherwise clear. No acute intra-axial or extra-axial fluid collection/hemorrhage. No mass or mass effect. Kevin-white matter differentiation preserved. IMPRESSION: No acute intracranial process. Finalized by Gregory Childers MD on 03/08/2025 8:22 AM X-ray chest 1 view [[id number]] Collected: 03/08/25229 Order Status: Completed Updated: 03/08/25234 Narrative: History: Chest tube placement Technique: A portable single frontal view of the chest was obtained. Comparison: 03/08/2025 at 12:54 AM Findings: The left lung has reexpanded since previous examination with extensive infiltrative changes in the left mid and upper lung. There is a left-sided chest tube in place. There is been intervaldevelopment of extensive subcutaneous emphysema in the left chest wall and neck bilaterally. The shifted mediastinal structures described in the prior studies the lower demonstrated. The endotracheal tube has been retracted since prior study. The venecia cannot be well visualized due to technique. There is been interval placement of a central venous catheter approaching from the right tip in thesuperior vena cava. The right lung is clear for an active process. The heart size is within normal limits. Impression: * Interval development of a large amount of subcutaneous emphysema in the left chest wall in the soft tissues of the neck bilaterally since the previous examination performed earlier today * Reexpansion of the left lung with resolution of the mediastinal shift to the left seen on the prior study * Left sided chest tube in place * Retraction of the endotracheal tube. Because of technique, the location of the venecia is difficult to determine Finalized by Chaitanya Gandara MD on 03/08/2025 2:34 AM X-ray chest 1 view [[id number]] Collected: 03/08/25130 Order Status: Completed Updated: 03/08/25134 Narrative: History: Intubation Technique: A portable single frontal view of the chest was obtained. Comparison: 03/06/2025 Findings: There is an endotracheal tube in place with its tip extending into the right main bronchus. This should be retracted approximately 5.5 cm. There is atelectasis of the left lung is new sincethe previous examination. There is shift of the mediastinal structures toward the left. There is an enteric tube in place with its tip in the stomach but its side port at the level the gastroesophageal junction. The right lung is clear for an active process. Impression: * Endotracheal tube extends into the right main bronchus with resultant atelectasis of the left lung and shift of the mediastinal structures toward the left * Enteric tube in place with its tip in the stomach but its sidehole at the level the gastroesophageal junction. THIS REPORT CONTAINS A SIGNIFICANT RESULT AND/OR RECOMMENDATION, WHICH REQUIRES THE ATTENTION OF THE LICENSED CAREGIVER RESPONSIBLE FOR THIS PATIENT. THEREFORE, I SPECIFICALLY DESIGNATED THIS REPORT TO BE TELEPHONED BY THE RADIOLOGY DEPARTMENT. FINDINGS WERE INSTRUCTED TO BE CALLED TO THE CLINICAL SERVICE ON 03/08/2025 AT 1:34 AM. * Finalized by Chaitanya Gandara MD on 03/08/2025 1:34 AM I have personally reviewed this study. Cultures: Microbiology Results Procedure Component Value Units Date/Time Urine Culture Urine, Indwelling Catheter [[id number]] Collected: 03/07/25 1122 Specimen: Urine, Indwelling Catheter Updated: 03/07/25 1144 Medications: cefTRIAXone (ROCEPHIN) IV, 2,000 mg, intravenous, Q24H fentaNYL, , , folic acid, 1 mg, oral, Daily insulin lispro, 2-16 Units, subcutaneous, Q4H metroNIDAZOLE, 500 mg, intravenous, Q12H pantoprazole, 40 mg, intravenous, Q12H phenylephrine HCl in 0.9% NaCl, , , Thank you for allowing us to participate in the care of this patient. Please call with questions. - ELLIOTT RENDON 03/08/25 8:15 AM ELLIOTT Rendon 03/08/25 0933 * Sarath Hoover MD - 03/08/2025 7:40 AM EDT SICU Academic Critical Care PROGRESS NOTE Admission Date: 02/25/2025 5:24 PM Attending Physician: Deena Branch MD Date of 1955 Hospital Day: 11 day(s) Caren Suarez is a 69 y.o. female with past medical history of DVT, HTN, who was admitted to [facility] after a CT A/P at an OSH demonstrated large partially solid cystic lesions. At that time she was found to have multiple DVTs and PEs. She was transferred to [facility] for a higher level of care.On arrival, her DVTs were being treated with heparin. Colorectal surgery was consulted on 03/07 forpossible bowel obstruction. At that time a CT A/P demonstrated colonic dilation with transition at the sigmoid junction. There is concern for acute malignant obstruction for known mucinous adenocarcinoma with colorectal origin. After stabilization of the patient's INR with FFP on 03/07, the decision was made to take her to the operating room as a joint case between Colorectal on Electronic [employer] Specialist/Onc. At the beginning of the case, patient initially desaturated prior to incision. It was believed thatthis was due to the significant malignant ascites compressing the lungs. Decision was made to proceed with the case, and after decompression the patient's respiratory status significantly improved. The patient later went into cardiac arrest within the operating room and a code was initiated. Compressions were begun, epi was administered. After 2 rounds of compressions ROSC was obtained. ABThera was placed and the patient was transferred to the surgical ICU intubated and sedated. Overnight Events: 3 units of pRBC, 1 unit FFP, given 2 L bolus. Lactate 7.6. Will give another 500 cc of LR. Plan forCTA chest this morning. Physical Exam: Vital Signs: BP 142/68 Pulse (!) 124 Temp 37.8 ??C (100 ??F) Resp 22 Ht 157.5 cm (5' 2.01 ) Wt 79.4 kg (175 lb 0.7 oz) SpO2 99% BMI 32.01 kg/m?? General: Sedated HENT: Head atraumatic, normocephalic, external ears and nose are normal Eyes: Conjunctivae clear, non-icteric, EOMI Pulmonary: Intubated and ventilated Cardiovascular: Regular rate and rhythm, radial pulses 2+, non-edematous x4 extremities Abdomen: Abthera in place Musculoskeletal: Range of motion grossly normal x4 extremities, no deformity x4 extremities Neurological: CN 2-12 grossly intact, sensation grossly intact Skin: Warm, dry, without jaundice Intake/Output Summary (Last 24 hours) at 03/08/2025 0740 Last data filed at 03/08/2025 0700 Gross per 24 hour Intake 9075.65 ml Output 2440 ml Net 6635.65 ml O2 Device: Endotracheal tube Ventilator Settings Vent Mode: PRVC-AC FiO2 (%): 60 % Resp Rate (Set): 22 Avea Vt (Set, L): 0.4 Liter (per IBW and trauma) PEEP/CPAP (cm H2O): 16 cm H20 Insp Time (sec): 0.92 sec Trigger Sensitivity Flow (L/min): 1 L/min Trigger Sensitivity Pressure (cm H2O): 3 cm H2O Humidification: Heat and moisture exchanger Invasive Hemodynamic [place] Results from last 3 days Lab Units 03/08/25 0455 03/08/25 0043 03/08/25 0032 03/07/25 0626 03/06/25 0536 BUN mg/dL 28* -- 29* 35* 33* CREATININE mg/dL 1.07* -- 1.18* 1.16* 1.22* POTASSIUM mmol/L 4.2 -- 3.5 3.7 4.2 POC POTASSIUM mmol/L -- 3.4* -- -- -- CO2 mmol/L 21* -- 19* 22 18* CHLORIDE mmol/L 106 -- 105 103 104 MAGNESIUM mg/dL 2.0 -- 2.1 2.6 2.6 AST U/L -- -- 108* -- -- ALT U/L -- -- 33* -- -- ALK PHOS U/L -- -- 37* -- -- Results from last 3 days Lab Units 03/08/2534703/08/253103/07/25 1940 03/06/25 1401 INR 1.6* 2.3* 1.9* 4.2* PROTIME sec 18.5* 25.8* 21.2* 47.8* Results from last 3 days Lab Units 03/08/2534703/08/25 0043 03/08/25 0032 03/07/25 0626 03/06/25 1401 03/06/25 0536 WBC x10E9/L 5.2 -- 19.0* 17.9* -- 15.4* HEMOGLOBIN g/dL 10.8* -- 5.6* 11.0* 11.2* 11.2* HEMATOCRIT % 32.6* -- 18.7* 35.3 -- 35.8 PORTABLE HEMATOCRIT % -- 17* -- -- -- -- PLATELETS X10E9/L 165 -- 179 341 366 358 MCV fL 80 -- 78* 75* -- 74* MCH pg 26.7* -- 23.2* 23.2* -- 23.0* MCHC g/dL 33.2 -- 29.7* 31.1* -- 31.3* RDW % 22.4* -- 20.1* 19.8* -- 20.6* Microbiology Results Procedure Component Value Units Date/Time Urine Culture Urine, Indwelling Catheter [[id number]] Collected: 03/07/25 1122 Specimen: Urine, Indwelling Catheter Updated: 03/07/25 1144 Glucose Results from last 7 days Lab Units 03/08/25 0455 03/08/25 0043 03/08/25 0032 03/07/25 0626 03/06/25 0536 03/05/25 0403 03/04/25 0716 03/03/25 0436 03/02/25 0644 POC GLUCOSE mg/dL -- 245* -- -- -- -- -- -- -- GLUCOSE mg/dL 298* -- 258* 151* 105* 123* 98 82 96 Lines/Drains CVC Triple Lumen 03/07/25 Right Internal Jugular (Active) Precautions Standard precautions;Hand hygiene;Gloves 03/08/25 0300 Lumen 1 Proximal 03/08/25 0300 Lumen 1 Status Blood return noted;Flushed;Infusing 03/08/25 0300 Lumen 2 Medial 03/08/25 0300 Lumen 2 Status Blood return noted;Flushed;Infusing 03/08/25 0300 Lumen 3 Distal 03/08/25 0300 Lumen 3 Status Blood return noted;Flushed;Infusing 03/08/25 0300 Site Assessment Clean;Dry;Intact 03/08/25 0000 Dressing Type Transparent;Occlusive 03/08/25 0300 Dressing Status Clean;Dry;Intact 03/08/25 0300 Dressing Intervention Initial dressing 03/08/25 0300 Line Necessity Peripherally incompatible solution 03/08/25 0300 Line Necessity Reviewed With cc 03/08/25 0300 Patient Tolerance of Line Care Tolerated well 03/08/25 0300 Central Line Dressing Change Due (Non-Gauze) 03/15/25 03/08/25 0000 Peripheral IV 03/05/25 Anterior;Left Forearm (Active) Line Status Infusing;Flushed 03/08/25 0300 Site Assessment Clean;Intact;Dry 03/08/25 0300 Dressing Type Transparent;Occlusive 03/08/25 0300 Dressing Status Intact;Clean;Dry 03/08/25 0300 Dressing Intervention Initial dressing 03/08/25 0300 Dressing Change Due (Non-Gauze) 03/12/25 03/05/25 0649 Peripheral IV 03/06/25 Anterior;Right Forearm (Active) Line Status Infusing;Flushed 03/08/25 0300 Site Assessment Clean;Dry;Intact 03/08/25 0300 Dressing Type Transparent;Occlusive 03/08/25 0300 Dressing Status Intact;Dry;Clean 03/08/25 0300 Dressing Intervention Initial dressing 03/08/25 0300 Dressing Change Due (Non-Gauze) 03/13/25 03/06/25 2105 Chest Tube 03/08/25 Left (Active) Function -20 cm H2O 03/08/25 0300 Air Leak No 03/08/25 0300 (1) Drainage Description Serosanguineous 03/08/25 0300 (1) Dressing Type Gauze;Occlusive 03/08/25 0300 (1) Dressing Status Clean;Dry;Intact 03/08/25 0300 (1) Dressing Intervention Initial dressing 03/08/25 0300 (1) Site Assessment Clean;Intact;Dry 03/08/25 0300 Output (mL) 20 mL 03/08/25 0600 Negative Pressure Wound Therapy 03/07/25 Surgical Quadrant;Mid Abdomen (Active) Assessed: Compressed 03/08/25 0300 Cycle Continuous 03/08/25 0300 Target Pressure (mmHg) 125 03/08/25 0300 Dressing Status Clean;Dry;Intact 03/08/25 0300 Dressing Changed New 03/08/25 0000 Output (mL) 200 mL 03/08/25 0600 NG/OG Tube 03/08/25 Left nostril (Active) Placement Verification External length measured 03/08/25 0300 Status Suction-low intermittent 03/08/25 0300 Tube Site Care Completed 03/08/25 0300 Secured at (cm) 55 cm 03/08/25 0300 Securement Method Securing device (Describe) 03/08/25 0300 Dressing Status/Interventions Clean;Dry;Intact 03/08/25 0300 Drainage Appearance Bile 03/08/25 0300 Urinary Catheter 03/06/25 Single lumen (Active) Catheter Status Patent 03/08/25 0300 Site Assessment Clean;Skin intact 03/08/25 0300 Collection Container Standard drainage bag/container 03/08/25 0300 Securement Method Right 03/08/25 0300 Tamper Evident Seal Intact Yes 03/08/25 0300 Indication for Continuation Uro/jewel bearing turner surgical considerations 03/08/25 0000 Urine Color Yellow/straw 03/08/25 0300 Urine Appearance Clear 03/08/25 0300 Output (mL) 50 mL 03/08/25 0700 ETT 03/07/25 Cuffed;Inflated Oral (Active) Secured at (cm) 22 cm 03/08/25 030 Measured from Lips 03/08/25 030 Secured Location Center 03/08/25 020 Secured by Commercial tube du 03/08/25 030 Cuff Pressure (cm H2O) 30 cm H2O 03/08/25 0200 Arterial Line 03/07/25 Left Radial (Active) Line Status Infusing;Blood return noted;Pulsatile blood flow;Flushed 03/08/25 030 Line Interventions Zeroed and calibrated;Leveled;Connections checked and tightened;Pressure bag maintained 03/08/25 030 Waveform Appropriate 03/08/25 030 Site Assessment Clean;Intact;Dry 03/08/25 030 Dressing Type Transparent;Occlusive 03/08/25299 Dressing Status Clean;Dry;Intact 03/08/25 030 Dressing Intervention Initial dressing 03/08/25 0300 Color/Movement/Sensation Capillary refill less than 3 sec 03/08/25 030 Patient Tolerance of Line Care Tolerated well 03/08/25 030 Line Necessity Invasive hemodynamic monitoring 03/08/25 030 Line Necessity Reviewed With cc 03/08/25 030 Dressing Change Due (Non-Gauze) 03/15/25 03/08/25 0000 ACTIVE PROBLEM LIST: S/p cardiac arrest Malignant bowel obstruction s/p total colectomy and bilateral salpingo-oophorectomy Pulmonary embolism Multiple DVT Moderate left pneumothorax Blood loss anemia Hypocalcemia Hyperphosphatemia Metabolic acidosis Shock ASSESSMENT/PLAN: Caren Suarez is a 69 y.o. female who is s/p total colectomy and bilateral salpingo-oophorectomy for malignant bowel obstruction for known mucinous adenocarcinoma. 1. Neuro S/p cardiac arrest CT Head without contrast: No acute intracranial process. Hospital Meds: Sedation: versed, fentanyl RASS Goal: -1 to 0 Analgesia: Other: n/a Home Meds: N/a 2. Pulmonary Pulmonary embolism, multiple DVT - CTA Chest 03/08/25:Slightly decreased burden of right sided pulmonary emboli. No new emboli. Left chest tube, moderate left pneumothorax, significant subcutaneous emphysema, mild dependent edema and consolidation left lung. Vascular venous duplex 02/24/25 Acute femoropopliteal deep vein thrombosis, acute deep tibioperoneal vein thrombosis, acute deep calf muscle vein thrombosis - Vascular Surgery is consulted - Inquire about candidacy for IVC filter Breathing Support: ET tube, PRVC-AC Settings: FiO2 60%, respiratory rate 18, Peep 16 SpO2: 97% Continuous pulse oximetry Hospital Meds: None Home Meds: None 3. Cardiovascular S/p cardiac arrest, shock Hemodynamics: Tachycardic, sinus rhythm Hypotensive Pressors: Levo, vaso Goal MAP >65 Continuous cardiac monitoring Hospital Meds: Heparin SQH, held Home Meds: Unknown PMH: Hypertension, previous DVTs PSH: None known Code Status: Full 4. GI Malignant bowel obstruction s/p total colectomy and bilateral salpingo-oophorectomy Status post total colectomy, left in discontinuity, ABThera in place 03/07/25 Diet: NPO Bowel Function: Await return of bowel function Hospital Meds: N/a Home Meds: None known 5. Renal/Genitourinary Hypocalcemia Hyperphosphatemia Metabolic acidosis - Lactate 7.6, will trend lactate q6h Lab Results Component Value Date SODIUM 138 03/08/2025 SODIUM 137 03/08/2025 SODIUM 138 03/08/2025 CL 106 03/08/2025 CL 105 03/08/2025 CL 103 03/07/2025 K 4.2 03/08/2025 K 3.4 (L) 03/08/2025 K 3.5 03/08/2025 CO2 21 (L) 03/08/2025 CO2 19 (L) 03/08/2025 CO2 22 03/07/2025 Electrolytes: Lab Results Component Value Date BUN 28 (H) 03/08/2025 BUN 29 (H) 03/08/2025 BUN 35 (H) 03/07/2025 CREATININE 1.07 (H) 03/08/2025 CREATININE 1.18 (H) 03/08/2025 CREATININE 1.16 (H) 03/07/2025 CALCIUM 8.4 (L) 03/08/2025 CALCIUM 8.3 (L) 03/08/2025 CALCIUM 8.3 (L) 03/07/2025 MG 2.0 03/08/2025 MG 2.1 03/08/2025 MG 2.6 03/07/2025 PHOSPHORUS 5.4 (H) 03/08/2025 Will replace electrolytes PRN per ICU protocol Fluid Balance: On LR at 100ml/hr IV Fluids: 6.055 L UOP/24 H: 1.720 L Net Fluid/24H: +6.69 L Strict monitoring of Ins and Outs Hospital Meds: none Home Meds: None known 6. Heme Blood loss anemia Labs: Lab Results Component Value Date HGB 10.8 (L) 03/08/2025 HGB 5.6 (LL) 03/08/2025 HGB 11.0 (L) 03/07/2025 PLT 165 03/08/2025 PLT 179 03/08/2025 PLT 341 03/07/2025 Lab Results Component Value Date INR 1.6 (H) 03/08/2025 INR 2.3 (H) 03/08/2025 INR 1.9 (H) 03/07/2025 Type and Screen: A neg Blood Products Administered: 3U PRBC Will continue to monitor Hgb and transfuse PRN H&H q8h 7. ID Malignant ascites - Infectious disease is onboard Tmax/24H: 37.8 Labs: Lab Results Component Value Date WBC 5.2 03/08/2025 WBC 19.0 (H) 03/08/2025 WBC 17.9 (H) 03/07/2025 Micro: Body fluid culture collected 02/28/25: [facility] Hospital Meds: Antibiotics: rocephin and flagyl 8. Endocrine Lab Results Component Value Date GLU 298 (H) 03/08/2025 GLU 245 (H) 03/08/2025 GLU 258 (H) 03/08/2025 Blood Glucose: 298 Goal Blood Glucose <180 mg/dL Hospital Meds: ISS PMH: none known 9. Musculoskeletal PMH: n/a PSH: n/a PT/OT when able 10. Prophylaxis Respiratory: none GI: protonix DVT: SCD Cuffs, SQH 11. Lines PIV x2 L radial A line Camara Right IJ CVC ETT tube L chest tube NG tube Disposition: Critical, ICU Plan and management were discussed with the attending Dr. Daniel Hoover MD SICU Resident, PGY-1 Cosigned by Wili Sanchez MD at 03/08/2025 12:16 PM EDT Associated attestation - Wili Sanchez MD - 03/08/2025 12:16 PM EDT Name: Caren Suarez Date: 03/08/2025 Length of Stay: 11 day(s) ACTIVE PROBLEM LIST: S/p cardiac arrest Malignant bowel obstruction s/p total colectomy and bilateral salpingo-oophorectomy Pulmonary embolism Multiple DVT Moderate left pneumothorax Blood loss anemia Hypocalcemia Hyperphosphatemia Metabolic acidosis Shock ASSESSMENT/PLAN: Caren Suarez is a 69 y.o. female who is s/p total colectomy and bilateral salpingo-oophorectomy for malignant bowel obstruction for known mucinous adenocarcinoma. . 1. Neuro: Neurochecks Goal RASS of 0 Sedation: Versed Analgesia: Fentanyl 2. Cardio: Continues hemodynamic monitoring Maintain map above 65 Status post cardiac arrest Hypotension: Epinephrine switch to Levophed. Continues on vasopressin 3. Resp: Maintain O2 sat > 92% Monitor for signs and respiratory distress Hypoxic respiratory failure: Will wean FiO2 and maintained PEEP at this time CTA of chest shows decrease clot burden Ventilator Settings Vent Mode: PRVC-AC FiO2 (%): 55 % Resp Rate (Set): 22 Avea Vt (Set, L): 0.4 Liter PEEP/CPAP (cm H2O): 16 cm H20 Insp Time (sec): 0.92 sec Trigger Sensitivity Flow (L/min): 1 L/min Trigger Sensitivity Pressure (cm H2O): 3 cm H2O Humidification: Heat and moisture exchanger 4. GI: NPO Open abdomen, discontinuity 5. Heme: Monitor H&H Transfuse for hb less than 7 or symptomatic anemia 6. Renal: Monitor urine output Monitor renal function ICU electrolyte replacement protocol 7. ID: Monitor for signs and symptoms of sepsis On Rocephin and Flagyl 8. Endo: Monitor blood sugar Use insulin sliding scale as needed Insulin drip 9. MS: Pressure ulcer prophylaxis 10: Prophylaxis: DVT mechanical prophylaxis DVT chemical prophylaxis on hold GI prophylaxis Protonix 11. Lines: PIV x2 L radial A line Camara Right IJ CVC ETT tube L chest tube NG tube Dispo: Critical This patient remains critically ill and requires constant monitoring and titration of care by a Critical Care Drawer In [place]. Failure to do so may result in further organ system failure, imminent deterioration, or . Critical care time spent directly with the patient and family: 33 Critical care was time spent personally by me on the following activities: Development of treatmentplan with the patient or surrogate, discussions with consultants, discussions with the primary provider, ordering and performing treatments and interventions, ordering and review of laboratory studies, ordering and review of radiographic studies, pulse oximetry, re-evaluation of patient's condition, review of old charts, vascular access procedures, evaluation of patient's response to treatment, examination of patient, interpretation of cardiac output measurements and obtaining history from patient or surrogate Electronically signed by Wili Sanchez MD [facility] General Surgeons Trauma, Acute Care Surgery and Surgical Critical Care * Winter Martinez MD - 03/08/2025 6:24 AM EDT [facility] Daily Progress Note Admission Date: 02/25/2025 Hospital Day: 11 days Subjective: Caren Suarez is a 69 y.o. POD#0 from ex lap, total colectomy, BSO, left in discontinuity w/ Abthera wound vac performed overnight. Patient coded intraoperatively requiring chest compressions and 2 rounds of epi. Patient was then transferred to SICU intubated and sedated. This morning she remains intubated, sedated and on pressor support (levo and epi). She does not respond to voice follow commands. Responds to sternal rub. Objective: Vitals: 03/08/25 0420 BP: Pulse: 115 Resp: 22 Temp: (!) 35.7 ??C (96.3 ??F) SpO2: Intake/Output Summary (Last 24 hours) at 03/08/2025 0624 Last data filed at 03/08/2025 0600 Gross per 24 hour Intake 9075.65 ml Output 2390 ml Net 6685.65 ml Temp: [33.3 ??C (91.9 ??F)-36.7 ??C (98 ??F)] 35.7 ??C (96.3 ??F) Pulse: [82-117] 115 Resp: [10-24] 22 BP: (120-151)/(64-71) 142/68 Arterial Line BP: (83-164)/(23-65) 109/48 FiO2 (%): [70 %-100 %] 70 % SpO2: [77 %-100 %] 99 % O2 Device: Endotracheal tube O2 Flow Rate (L/min): [0 L/min] 0 L/min Lab Results Component Value Date WBC 5.2 03/08/2025 HGB 10.8 (L) 03/08/2025 HCT 32.6 (L) 03/08/2025 MCV 80 03/08/2025 PLT 165 03/08/2025 Lab Results Component Value Date GLU 298 (H) 03/08/2025 CALCIUM 8.4 (L) 03/08/2025 K 4.2 03/08/2025 CO2 21 (L) 03/08/2025 BUN 28 (H) 03/08/2025 CREATININE 1.07 (H) 03/08/2025 Lab Results Component Value Date CA125 1,528 (H) 02/26/2025 No components found for: HE4 Lab Results Component Value Date CEA 24.6 (H) 02/26/2025 Lab Results Component Value Date CA199 22.5 02/26/2025 No results found for: PREALBUMIN Results from last 7 days Lab Units 03/08/25 0348 INR 1.6* Lab Results Component Value Date CALCIUM 8.4 (L) 03/08/2025 PHOSPHORUS 5.4 (H) 03/08/2025 No results found for: TSH , T4 GENERAL APPEARANCE: intubated, sedated HENT: head atraumatic, normocephalic, pupils reactive PULM: ET tube in place, on ventilator support CARDIOVASCULAR: tachycardic ABDOMEN: Abthera wound vac in place, left in discontinuity NEURO: sedated, not responsive to voice, responds to sternal rub Assessment/Plan: Caren Suarez is a 69 y.o. POD#0 from an ex lap, total colectomy, BSO for malignant bowel obstruction for mucinous adenocarcinoma. Intraoperatively, patient was ventilating poorly with increasing pressure requirements. Malignant bowel obstruction Mucinous adenocarcinomaS/p cardiac arrest - s/p ex lap, total colectomy, BSO - d/t poor ventilation and increasing pressor requirements, patient was left in discontinuity with abthera wound vac in place and transferred to SICU for stabilization and management - patient intubated and sedated this AM - on vasopressor support with levo and epi - Lactate: 9.8>7.6 - UOP: 720 cc/6hr - management per SICU team - discussion of CT once patient is stable enough to leave the floor Pulmonary embolism Multiple DVTs - vascular surgery on board: - no acute surgical intervention - continue heparin 5,000u - recommend CTA chest for definitive dx of PE - plans for echo - INR: 1.2> 4.2>1.9 - PT/INR: 25.8/2.3>18/1.6 - Fibrinogen: 186 Blood loss anemia - Hgb: 9.6 >>11.2>11.0>5.6>3u pRBC>10.8 Winter Martinez MD Vacuum Cleaner Repairer Resident, PGY-2 If questions or concerns, please contact via [employer] pager at [phone]. Cosigned by Faith Celis MD at 03/10/2025 10:54 AM EDT Associated attestation - Lalita, Faith Billings MD - 03/10/2025 10:54 AM EDT Attending Attestation: I saw the patient. I participated and was physically present during the critical/fuentes portions of the service. I was directly involved in the management and treatment plan of the patient. I reviewed the resident's note. Additional Notes/Findings: POD#1 s/p XL total colX + BSO - in discontinuity. Condition remains critical. Will follow peripherally. Please page jewel bearing turner onc pager ([phone]) with any questions or concerns. * Pura Barrientos RCP - 03/08/2025 1:22 AM EDT Bronchoscopy Location of procedure: Bedside Procedure: washings Site: 1. Right upper lobe and Left upper lobe Type of scope: Bronch 6.0 Route: ETT Medication/s: Sample given to: Complications: tolerated well and no swelling Interventions: Procedure MD: Дмитрий * William Burnett - 03/07/2025 5:01 PM EDTSummary: Spiritual Care follow up for requested Advance Directive Assistance Spiritual Care follow up for requested Advance Directive Assistance Advance Directives: Patient's nurse had confirmed the patient's capacity to make informed health care decisions, Preload Supervisor provided patient with education on the need for advance directives. Patient declined completing them at this time. Follow up completed ; A Preload Supervisor is available for follow up, when patient wants to complete the paperwork or wants Preload Supervisor help with patient questions. Chaplains may be reached through the hospital inverform machine operator or as a Spiritual Care consult on the [employer] system. A thermometer tester is available 23/01 to offer spiritual and emotional support and may be reached through the [facility] inverform machine operator at [phone]. * Brenda Hayes MD - 03/07/2025 1:24 PM EDT Images from the original note were not included. [facility] Artur Small, DUYEN Nephrology Consultation Note Patient Name: Caren Suarez : 1955 Date of Service: 03/07/25 PCP: Riya Diego MD Attending Physician: Dario Burris MD Admission Date: 02/25/2025 Length of stay: LOS: 10 days Chief complaint. No chief complaint on file. Reason for Consult: Acute Kidney Injury Assessment and Plan. 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 She reports having a hard time breathing and a cough that went away ( she has had a hard time breathing and had a cough but it went away ). She had been treated by her PCP with steroids and antibiotics without improvement. An outpatient CT abdomen/pelvis on 02/24/2025 revealed a large right adnexal mass, a solid right renal lesion, and likely metastases to the lungs and abdomen. Venous duplex showed bilateral DVTs. She was transferred from [place] to [facility] for further evaluation and management. In the emergency department, she was started on a heparin drip. Workup upon admission included a CTA chest on 02/25/2025, which confirmed moderate right-sided pulmonary emboli without right heart strain. She is currently being treated for a urinary tract infection and bacterial peritonitis with IV Rocephin and Flagyl, with Infectious Disease on board. Nephrology consultation was requested for acute kidney injury. Assessment Acute Kidney Injury, likely multifactorial with hemodynamic and prerenal components, with concern for acute tubular necrosis (ATN). Baseline creatinine is approximately 0.9 mg/dL. The TASHA is in the setting of sepsis, treatment for bacterial peritonitis, and obs uropathy , There was contrast exposure on 02/24/2025. Right hydrnephrosis, Urology following Mild hyponatremia on initial evaluation. Metabolic acidosis on initial evaluation. Volume Status: Euvolemic , possibly on low side Hypertension: Stable, though has been on the higher side. Hemodynamics: Echocardiogram on 02/26/2025 showed a normal LVEF of 60-65% with Grade I diastolic dysfunction and no evidence of right heart strain. Anemia Most recent hemoglobin is 10.8 g/dL. Sepsis secondary to bacterial peritonitis and UTI. 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 ? Rectal ca Acute pulmonary embolism and bilateral DVT. Bowel obstruction Plan One dose of lasix , Change IVF to D5 0.45 NS as 50ml/hr Noted plan from surgery for OR today Strict ins and outs / accurate documentation of urine out put / daily weights and Bladder scan Q12 Avoid nephrotoxins, avoid contrast exposure unless absolutely necessary, avoid hemodynamic instability Dose all medications to GFR Monitor Renal Chem panel daily in AM Thank you for this consultation, we will follow along with you regarding care of this patient whilethe patient is here in the hospital, please call if you have any questions or concerns. BRENDA HAYES MD on 03/07/2025 at 1:25 PM [facility] [email or web address] Schedule : See Epic on-call schedule for [facility] ( [facility] ) Nephrology Working Hours : Epic chat during working hours, if no response please use on- call physician reach out as below After Hours : Answering service contact : [phone] Office Phone number: [phone] Subjective Patient in mild distress due to abdominal discomfort LE edema noted , worsening Plan for OR today Plan Discussed with nursing staff Past Medical History: Diagnosis Date Deep vein thrombosis (CMS-HCC) No past surgical history on file. Family History Problem Relation Age of Onset Breast cancer Neg Hx Social History Socioeconomic History Marital status: Single Spouse name: Not on file Number of children: Not on file Years of education: Not on file Highest education level: Not on file Occupational History Not on file Tobacco Use Smoking status: Former Types: Cigarettes Smokeless tobacco: Never Substance and Sexual Activity Alcohol use: Never Drug use: Never Sexual activity: Not on file Other Topics Concern Not on file Social History Narrative Not on file Social Drivers of Health Financial Resource Strain: Not on file Food Insecurity: No Food Insecurity (02/25/2025) Hunger Screening Food Insecurity - Worry: Never True Food Insecurity - Inability: Never True Transportation Needs: No Transportation Needs (02/25/2025) PRAPARE - Transportation Lack of Transportation (Medical): No Lack of Transportation (Non-Medical): No Physical Activity: Not on file Stress: Not on file Social Connections: Not on file Interpersonal Safety: Not At Risk (02/25/2025) Humiliation, Afraid, Rape, and Kick questionnaire Fear of Current or Ex-Partner: No Emotionally Abused: No Physically Abused: No Sexually Abused: No Housing Instability: Low Risk (02/25/2025) Housing Instability Housing Instability: No Prior to Admission medications Medication Sig Start Date End Date Taking? Authorizing Provider apixaban (ELIQUIS) 5 mg tablet Take 2 tablets (10 mg total) by mouth 2 (two) times a day for 7 days, THEN 1 tablet (5 mg total) 2 (two) times a day for 30 days. 03/05/25 04/11/25 Eleni Harding APRN-ASSISTANT DIRECTOR OF RESIDENCE LIFE Allergies Allergen Reactions Penicillin Review Of Systems: 12 point review of systems was done in detail and is negative except as above in HPI Physical Exam: VITALS BP 144/64 Pulse 86 Temp 36.5 ??C (97.7 ??F) (Oral) Resp 16 Ht 157.5 cm (5' 2.01 ) Wt 79.4kg (175 lb 0.7 oz) SpO2 90% BMI 32.01 kg/m?? Wt Readings from Last 3 Encounters: 03/07/25 79.4 kg (175 lb 0.7 oz) 02/24/25 74.4 kg (164 lb) BMI: Body mass index is 32.01 kg/m??. I/O (24 Hours) Intake/Output Summary (Last 24 hours) at 03/07/2025 1325 Last data filed at 03/07/2025 1041 Gross per 24 hour Intake 3225.33 ml Output 600 ml Net 2625.33 ml General: Mild distress due to clinical condition HEENT: No conjunctival pallor, anicteric sclera, no oropharyngeal erythema. Mucous membranes are moist. Neck: Supple, no lymphadenopathy, no JVD. Cardiovascular: Regular rate and rhythm, no murmurs, rubs, or gallops. Respiratory: Clear to auscultation, normal effort, no wheezes or crackles. Abdomen: Tensely distended, soft, nontender. Bowel sounds are normal. Extremities: Bilateral lower extremity edema. Peripheral pulses palpable. No calf pain. Neurological: Alert and oriented to person, place, and time. No focal deficits. Skin: No rashes or lesions. Warm. Psychiatric: Appropriate affect, no acute distress. Medications Scheduled Meds: acetaminophen, 1,000 mg, intravenous, Q6H amLODIPine, 10 mg, oral, Daily folic acid, 1 mg, oral, Daily furosemide, 80 mg, intravenous, Once pantoprazole, 40 mg, oral, QAM AC Continuous Infusions: D5 % and 0.45 % sodium chloride 1,000 mL with sodium bicarbonate 8.4 % (1 mEq/mL) 75 mEq infusion, 100 mL/hr, Last Rate: 100 mL/hr (03/07/25 1041) dextrose 5 % in water, 100 mL/hr D5 % and 0.45 % sodium chloride, 50 mL/hr sodium chloride 0.9 %, 20 mL/hr PRN Meds: dextrose dextrose 5 % in water dextrose 50 % in water (D50W) glucagon (human recombinant) heparin (porcine) hydrALAZINE HYDROmorphone HYDROmorphone magnesium sulfate magnesium sulfate ondansetron oxyCODONE AND oxyCODONE potassium chloride OR potassium chloride OR potassium chloride IV (Adult) sodium chloride sodium chloride 0.9 % Results Review Renal Chemistry Results from last 7 days Lab Units 03/07/25 0626 03/06/25 0536 03/05/25 0403 03/04/25 2112 03/04/25 0716 03/03/25 0436 SODIUM mmol/L 135 136 138 -- 138 136 POTASSIUM mmol/L 3.7 4.2 4.0 4.1 3.6 3.8 CHLORIDE mmol/L 103 104 106 -- 105 106 CO2 mmol/L 22 18* 17* -- 18* 18* BUN mg/dL 35* 33* 23 -- 18 13 CREATININE mg/dL 1.16* 1.22* 0.95 -- 0.89 0.82 CALCIUM mg/dL 8.3* 9.2 9.2 -- 8.6 8.4* MAGNESIUM mg/dL 2.6 2.6 2.4 -- 2.4 2.2 Hepatic: Lab Results Component Value Date AST 21 02/24/2025 AST 24 02/24/2025 ALT 15 02/24/2025 ALT 15 02/24/2025 ALKPHOS 105 02/24/2025 ALKPHOS 100 02/24/2025 BNP Lab Results Component Value Date BNP 34 03/06/2025 BNP 61 02/24/2025 CBC Results from last 7 days Lab Units 03/07/25 0626 03/06/25 1401 03/06/25 0536 03/05/25 0403 03/04/25 0716 03/03/25 0436 WBC x10E9/L 17.9* -- 15.4* 16.0* 16.5* 12.8* HEMOGLOBIN g/dL 11.0* 11.2* 11.2* 10.8* 10.7* 9.6* HEMATOCRIT % 35.3 -- 35.8 34.7* 34.1* 30.9* PLATELETS X10E9/L 341 366 358 391 355 367 Results from last 7 days Lab Units 03/07/25 0626 03/06/25 0536 03/05/25 0403 03/04/25 0716 03/03/25 0436 GLUCOSE mg/dL 151* 105* 123* 98 82 Urine Studies: Lab Results Component Value Date COLOR Yellow 03/06/2025 TURBIDITY Hazy (A) 03/06/2025 SPECIFICGRA 1.023 03/06/2025 NITRITE Negative 03/06/2025 PHURINE 6.0 03/06/2025 LEUKOCYTE Small (A) 03/06/2025 PROTEIN 50 mg/dL (A) 03/06/2025 KETONES 20 mg/dL (A) 03/06/2025 UROBILINOGEN <1.1 eu/dL 03/06/2025 BLOODHGB Large (A) 03/06/2025 Lab Results Component Value Date UPROCRTRAT 0.25 (H) 03/06/2025 Urine Sodium: No components found for: CRYSTAL Urine Potassium: No results found for: KUR Urine Chloride: No results found for: CLUR Urine Osmolarity: No components found for: OSMOU Urine Creatinine: No results found for: LABCREA Urine Eosinophils: No components found for: UEOS Urine Protein: No components found for: TPU Immunology Profile No results found for: PROTELECTR , SEDRATE , CRP , RF , ANASCREEN , ANTIDSDNA , C3 , C4 , ANCA , MYELOP , PROTEINASE3 , ANTIGLOMERU No results found for: HAV , HEPAIGM , HEPBIGM , HEPBCAB , HBEAG , HEPCAB SP: No results found for: SP C3:No results found for: C3 C4:No results found for: C4 MPO ANCA: No results found for: MPO PR3 ANCA: No components found for: PR3 hepatitis serologies ANTIGBM:No components found for: GBMABIGG HEPATITIS B SURFACE AG: No results found for: HEPBSAG HEPATITIS C AB: No results found for: HEPCAB Electrophoresis: SPEP:No results found for: PROT , LABALPH , LABBETA , PATH UPEP:No results found for: LABPE Anemia Profile Lab Results Component Value Date WBC 17.9 (H) 03/07/2025 WBC 15.4 (H) 03/06/2025 HGB 11.0 (L) 03/07/2025 HGB 11.2 (L) 03/06/2025 HCT 35.3 03/07/2025 HCT 35.8 03/06/2025 PLT 341 03/07/2025 PLT 366 03/06/2025 Lab Results Component Value Date IRON 12 (L) 02/26/2025 TIBC 321 02/26/2025 FERRITIN 78 02/26/2025 Bone Mineral Profile Lab Results Component Value Date CALCIUM 8.3 (L) 03/07/2025 Results from last 7 days Lab Units 03/07/25 0626 03/06/25 0536 03/05/25 0403 MAGNESIUM mg/dL 2.6 2.6 2.4 Echocardiogram: Echo complete W/O contrast Result Date: 02/26/2025 Left Ventricle: Left ventricle is small. Systolic function is normal with an ejection fraction of 60-65%. No segmental wall motion abnormalities. Grade I diastolic dysfunction (impaired relaxation) is present. Lateral E' is 11.70 cm/s. Medial E' is 7.94 cm/s. Right Ventricle: Right ventricular sizeappears normal. The right ventricular basal diameter is 22.0 mm. Systolic function is normal. Aortic Valve: There is trace to mild regurgitation. There is no evidence of aortic valve stenosis. Thank you for the consultation. Please do not hesitate to contact us for any further questions/concerns. We will continue to follow along with you. * Ernie Elizondo, STUDENT TRUCK DRIVER-ASSISTANT DIRECTOR OF RESIDENCE LIFE - 03/07/2025 11:53 AM EDT Images from the original note were not included. [facility] - Daily Progress Note 03/07/2025, 11:54 AM Impression/Plan: Metastatic Colorectal Cancer -Initially favoring ovarian primary given clinical pattern, but now with pathology positive for colorectal primary -Initial CT a/p showed large partially solid and partially cystic lesion in the right adnexa measuring 16 cm x 12 cm x 11 cm + lower anterior abdominal soft tissue nodules + 2.5 cm solid R renal lesion + diffuse intraperitoneal fluid -CTA chest revealed numerous pulmonary nodules -[id number], LL3=475, CEA=24.6, CA 19-9 WNL -TVUS noted an 18.2 cm cystic and solid lesion in the pelvis with ascites and peritoneal nodularity -S/p IR performed paracentesis and biopsy of soft tissue nodules 02/28 -Ascites fluid non-diagnostic -Abdominal soft tissue biopsy pathology positive for mucinous adenocarcinoma consistent with colorectal origin -Now with CT findings c/w malignant bowel obstruction (see repeat CT a/p 03/06). Will need surgical intervention for correction of obstruction prior to being able to offer her systemic therapy -Palliative medicine consult for assistance with pain -She will follow up with Dr. Romero after discharge for further management Malignant Bowel Obstruction, Abdominal Pain/Distention -Worsening -Repeat CT a/p 03/06 shows Colonic dilatation with transition at the sigmoid junction. Concern for obstruction from the known large rectal mass vs multicentric colorectal carcinoma + Similar appearanceof a 20 cm cystic pelvic lesion, recently characterized as rectal adenocarcinoma + Peritoneal carcin omatosis -General surgery consulted, possible surgical intervention planned today. Heparin on hold accordingly Renal Mass, Hydroureteronephrosis, TASHA, hyperuricemia -CT imaging shows 2.5 cm R interpolar renal mass concerning for RCC + Mild right hydroureteronephrosis, likely secondary to pelvic mass effect on the ureter -Cr=1.16(1.22, 0.95) -Uric acid=8.0 -May need stent if Cr worsens -Urology, nephrology following PE/DVT -Likely provoked by metastatic malignancy -CTA shows Moderate right sided pulmonary emboli without evidence of right heart strain -Dopplers revealing acute R femoropopliteal, deep tibioperoneal, and deep calf muscle DVT + L deep calf muscle DVT -On heparin gtt, likely transition to DOAC prior to discharge -Heparin presently on hold given supratherapeutic Xa/PTT and anticipating surgery Supratherapeutic INR -In setting of advanced metastatic disease, Eliquis therapy, acute infection -INR=4.2 -Would recommend Vit K +/- FFP reversal while heparin is infusing given her hypercoagulable state and clot burden. However heparin currently turned off as it is supratherapeutic -Given plan for surgery, will defer to surgical team for timing of reversal. I will discuss reversal recs with my attending and communicate accordingly with surgical team Anemia -Stable/Improved. Multifactorial due to severe B12 deficiency, folate deficiency, Iron deficiency anemia in setting of vaginal bleeding d/t #1, acute infection, metastatic GI malignancy, renal insufficiency -Hgb=11.0(11.2, 11.2, 10.8, 10.7, 9.6, 8.9) microcytic -S/p IM B12 & IV iron -Start folic acid supplements -No hemolysis -EGD/colonoscopy were planned, but not completed as patient could not tolerate bowel prep, likely due to bowel obstruction as discussed above -Transfuse for hgb<7 -Have arranged for follow up with Dr. Romero UTI -On IV antibiotics -As per other services Continue management of other medical problems as per appropriate services. Patient discussed with Dr. Stone Interval History: Patient seen and examined at bedside. She looks/feels worse. Abdomen is markedly distended, and abdominal pain is worse than previous. BLE edema has worsened also. She is weaker and more SOBOE. Awaiting surgical intervention. Maintained on room air without distress, VSS, afebrile. Physical Examination : Temp: [36.3 ??C (97.3 ??F)-36.7 ??C (98 ??F)] 36.7 ??C (98 ??F) Pulse: [89-92] 89 Resp: [16-18] 16 BP: (96-151)/(69-71) 138/69 SpO2: [90 %-95 %] 90 % O2 Device: None (Room air) Temperature Range: Temp: 36.7 ??C (98 ??F) Temp Av.4 ??C (97.5 ??F) Min: 36.3 ??C (97.3 ??F) Max: 36.7 ??C (98 ??F) Weight change: -8.3 kg (-18 lb 4.8 oz) Physical Exam Vitals and nursing note reviewed. Constitutional: General: She is not in acute distress. Appearance: Normal appearance. She is normal weight. She is ill-appearing or toxic-appearing. HENT: Head: Normocephalic and atraumatic. Right Ear: External ear normal. Left Ear: External ear normal. Nose: Nose normal. Mouth/Throat: Mouth: Mucous membranes are moist. Pharynx: Oropharynx is clear. Eyes: General: No scleral icterus. Extraocular Movements: Extraocular movements intact. Pupils: Pupils are equal, round Cardiovascular: Rate and Rhythm: Normal rate and regular rhythm. Pulmonary: Effort: Pulmonary effort is normal. No respiratory distress. Abdominal: General: There is distension. Tenderness: There is abdominal tenderness. There is guarding. Musculoskeletal: General: Normal range of motion. Cervical back: Normal range of motion and neck supple. Right lower leg: No edema. Left lower leg: No edema. Skin: General: Skin is warm and dry. Coloration: Skin is not jaundiced. Findings: No bruising or lesion. Neurological: General: No focal deficit present. Mental Status: She is alert and oriented to person, place, and time. Mental status is at baseline. Cranial Nerves: No cranial nerve deficit. Motor: weakness, generalized. Gait: Gait normal. Psychiatric: Mood and Affect: dysphoric Behavior: Behavior normal. Thought Content: Thought content normal. Judgment: Judgment normal. Laboratory data: Results from last 7 days Lab Units 09/0562503/06/25140003/06/2553503/05/25 0403 WBC x10E9/L 17.9* -- 15.4* 16.0* HEMOGLOBIN g/dL 11.0* 11.2* 11.2* 10.8* HEMATOCRIT % 35.3 -- 35.8 34.7* PLATELETS X10E9/L 341 366 358 391 MCV fL 75* -- 74* 72* Results from last 7 days Lab Units 03/06/25220403/06/251400 PROTIME sec -- 47.8* INR -- 4.2* APTT sec >150* 33 Results from last 7 days Lab Units 03/07/2562503/06/25140003/06/2553503/05/25 0403 SODIUM mmol/L 135 -- 136 138 POTASSIUM mmol/L 3.7 -- 4.2 4.0 CHLORIDE mmol/L 103 -- 104 106 CO2 mmol/L 22 -- 18* 17* BUN mg/dL 35* -- 33* 23 CREATININE mg/dL 1.16* -- 1.22* 0.95 CALCIUM mg/dL 8.3* -- 9.2 9.2 GLUCOSE mg/dL 151* -- 105* 123* INR -- 4.2* -- -- MAGNESIUM mg/dL 2.6 -- 2.6 2.4 VITAMIN B12: Lab Results Component Value Date [id number] 110 (L) 02/26/2025 FOLATE: Lab Results Component Value Date FOLATE 3.3 (L) 02/26/2025 IRON: Lab Results Component Value Date IRON 12 (L) 02/26/2025 TIBC 321 02/26/2025 FERRITIN 78 02/26/2025 Medications: amLODIPine, 10 mg, oral, Daily folic acid, 1 mg, oral, Daily pantoprazole, 40 mg, oral, QAM AC sodium chloride, 3 mL, intravenous, Q12H JOSE [COMPLETED] sodium,potassium,mag sulfates, 177 mL, oral, Once AND sodium,potassium,mag sulfates, 177 mL, oral, Once Ernie Elizondo APRN-ASSISTANT DIRECTOR OF [employer] 03/07/25 1413 Cosigned by Domenic Stone MD at 03/07/2025 7:25 PM EDT * Dario Burris MD - 03/07/2025 11:50 AM EDT Images from the original note were not included. Progress note [facility] Adult Hospitalist Name: Caren Suarez Acct: [id number] Room: [place] [address] Admit Date: 02/25/2025 5:24 PM PCP: Riya Diego MD Assesment/Plan Admit to Med surg unit Cardiac Monitoring Acute PE/DVT CTA of chest reported moderate right-sided pulmonary emboli without evidence of heart strain Eliquis and heparin discontinued Echocardiogram showed normal ejection fraction, no evidence of right heart strain Pulmonary consulted Numerous pulmonary nodules likely metastasis Consult pulmonary General oncology consult Status post soft tissue biopsy 02/28 Await pathology from tissue biopsy Pulmonary consult Newly diagnosed Ovarian mass Bowel obstruction NPO Gynecology/Oncology was consulted Transvaginal ultrasound: 18.2 x 16.3 x 11.2 cm, multiloculated, cystic and solid lesion in the pelvis Thin prep negative for malignancy, negative high-risk HPV Status post paracentesis and soft tissue nodule biopsy today 02/28/2025 with removal of 1850 mL of ludivina ascites fluid OBGYN recommended GI evaluation giving elevated tumor markers, patient unable to tolerate prep. plan for EGD and colonoscopy outpatient Patient is currently on Rocephin and Flagyl per ID. CTA/P:Colonic dilatation with transition at the sigmoid junction. Concern for obstruction from the known large rectal mass vs multicentric colorectal carcinoma. Postprocedural ileus or colonic pseudoobstruction could appear similarly in the appropriate clinical setting.Similar appearance of a 20 cm cystic pelvic lesion, recently characterized as rectal adenocarcinoma. Peritoneal carcinomatosis. Indeterminate bilateral lung base pulmonary nodules, presumed metastatic. Few sclerotic pelvic lesions may reflect additional osseous metastases. Mild right hydroureteronephrosis, likely secondary to pelvic mass effect on the ureter.Redemonstrated 2.2 cm right interpolar renal mass lesion concerning for RCC. Urology consult Consult Colorectal surgery Urinary tract infection/bacterial peritonitis S/P paracentesis 02/28/2025 - nucleated cells are elevated at 1900 with neutrophil predominance (60%) - this is consistent with bacterial peritonitis . IR consult for repeat paracentesis Peritoneal fluid culture is pending Urinalysis came back positive for UTI Urine culture came back negative Patient is continued on IV antibiotics IV Rocephin and Flagyl Gastroenterology is following for EGD colonoscopy outpatient History of tobacco abuse Quit 12 years ago, with a 42 year history of smoking Outpatient PFT Poor oral intake Consult dietitian Hypertensive heart disease Monitor blood pressure closely Start Norvasc, dosage increased Hydralazine PRN Acute Renal insufficiency Renal mass Hydroureteronephrosis Monitor renal function Urology consult: Consider percutaneous nephrostomy placement if kidney function worsens Nephrology following Acute urinary retention Monitor urinary output Insert Camara catheter DVT and GI prophylaxis Continue to monitor/telemetry/CBC with diff daily/BMP daily Continue medications as below Scheduled Medications: acetaminophen, 1,000 mg, intravenous, Q6H amLODIPine, 10 mg, oral, Daily cefTRIAXone (ROCEPHIN) IV, 2,000 mg, intravenous, Q24H folic acid, 1 mg, oral, Daily metroNIDAZOLE, 500 mg, intravenous, Q12H pantoprazole, 40 mg, intravenous, Q12H phytonadione, 10 mg, intravenous, Once Infusions: D5 % and 0.45 % sodium chloride 1,000 mL with sodium bicarbonate 8.4 % (1 mEq/mL) 75 mEq infusion, 100 mL/hr, Last Rate: 100 mL/hr (03/07/25 1041) dextrose 5 % in water, 100 mL/hr D5 % and 0.45 % sodium chloride, 50 mL/hr, Last Rate: 50 mL/hr (03/07/25 1422) sodium chloride 0.9 %, 20 mL/hr, Last Rate: 20 mL/hr (03/07/25 1425) sodium chloride 0.9 %, 20 mL/hr PRN medications dextrose, 15 g, PRN dextrose 5 % in water, 100 mL/hr, Continuous PRN dextrose 50 % in water (D50W), 25 mL, PRN glucagon (human recombinant), 1 mg, PRN heparin (porcine), 5,000 Units, PRN hydrALAZINE, 10 mg, Q6H PRN HYDROmorphone, 0.5 mg, Q2H PRN HYDROmorphone, 1 mg, Q2H PRN magnesium sulfate, 2,000 mg, PRN magnesium sulfate, 4,000 mg, PRN ondansetron, 4 mg, Q4H PRN oxyCODONE, 2.5 mg, Q4H PRN And oxyCODONE, 5 mg, Q4H PRN potassium chloride, 30-50 mEq, PRN Or potassium chloride, 30-50 mEq, PRN Or potassium chloride IV (Adult), 10 mEq, PRN sodium chloride, 10 mL, PRN sodium chloride 0.9 %, 20 mL/hr, Continuous PRN sodium chloride 0.9 %, 20 mL/hr, Continuous PRN Code Status: Full Code Chief Complaint: Shortness of breath Subjective: Patient seen and examined at bedside. Resting on room air. Continued on IV antibiotics. IV heparin infusion Afebrile Pt. Denies any CP, SOB, palpitation, JARRELL, dizziness, chills, cough, cold, changes in urination, BM or skin changes or any pain. History of Present Illness: Caren Suarez is a 69 y.o. female who presents with No chief complaint on file. Caren Suarez is an 69 y.o. White or female. came to the hospital with Abnormal test results. Patient states that she has been experiencing cold-like symptoms with to thepoint where she was having hard time breathing. She went to her PCP who placed her on steroids withno improvement. She then was on antibiotic therapy with still no improvement. 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 She also underwent venous duplex of bilateral lower extremities that reported rightacute DVT and left deep calf muscle vein DVT. she was Was then sent to the ER at [place] to be further evaluated and treated. She was transferred to [facility] for further evaluation and treatment. No significant past medical history of coronary artery disease, COPD diabetes or history of stroke.Patient does have a history of tobacco abuse quit 12 years ago Patient admitted for further management. I have personally reviewed the past medical history, past surgical history, medications, social history, and family history, and summarized in the note. Review of Systems: All 12 systems are reviewed and negative otherwise mentioned in HPI. Past Medical History: Past Problem List: Patient Active Problem List Diagnosis Date Noted DVT (deep venous thrombosis) ([facility]) 02/25/2025 Colon cancer screening 02/24/2025 Hematochezia 02/24/2025 Past Medical History: Diagnosis Date Deep vein thrombosis ([facility]) Past Surgical History: No past surgical history on file. Medications Prior to Admission: Prior to Admission medications Not on File Allergies: Penicillin Social History: Tobacco: reports that she has quit smoking. Her smoking use included cigarettes. She has never usedsmokeless tobacco. Alcohol: reports no history of alcohol use. Drug Use: reports no history of drug use. Family History: Family History Problem Relation Age of Onset Breast cancer Neg Hx Physical Exam: Vitals: BP 144/64 Pulse 86 Temp 36.5 ??C (97.7 ??F) (Oral) Resp 16 Ht 157.5 cm (5' 2.01 ) Wt 79.4 kg (175 lb 0.7 oz) SpO2 90% BMI 32.01 kg/m?? Temp (24hrs), Av.4 ??C (97.6 ??F), Min:36.3 ??C (97.3 ??F), Max:36.7 ??C (98 ??F) Weight: Wt Readings from Last 3 Encounters: 03/07/25 79.4 kg (175 lb 0.7 oz) 02/24/25 74.4 kg (164 lb) General appearance - alert, well appearing, and in no acute distress Mental status - oriented to person, place, and time with normal affect Head - normocephalic and atraumatic Eyes - pupils equal and reactive, extraocular eye movements intact, conjunctiva clear Ears - hearing appears to be intact Nose - no drainage noted Mouth - mucous membranes moist. Neck - supple, no carotid bruits, positive cervical lymphadenopathy Chest - clear to auscultation, normal effort Heart - normal rate, regular rhythm, no murmur Abdomen - soft, nontender, distended, bowel sounds present all four quadrants, no masses, hepatomegaly or splenomegaly Neurological - normal speech, no focal findings or movement disorder noted, cranial nerves II through XII grossly intact Extremities - peripheral pulses palpable, no pedal edema or calf pain with palpation Skin - no gross lesions, rashes, or induration noted Data: I/O (24Hr): Intake/Output Summary (Last 24 hours) at 03/07/2025 1541 Last data filed at 03/07/2025 1041 Gross per 24 hour Intake 3225.33 ml Output 600 ml Net 2625.33 ml Labs and Diagnostic studies: @LABDAILY3@ No results found for: HGBA1C Results from last 7 days Lab Units 03/06/25 0536 BNP pg/mL 34 Results from last 7 days Lab Units 03/06/25 1401 INR 4.2* Results from last 7 days Lab Units 03/06/25 0536 CPK ISOENZYMES U/L 18* Microbiology Results Procedure Component Value Units Date/Time Urine Culture Urine, Indwelling Catheter [[id number]] Collected: 03/07/25 1122 Specimen: Urine, Indwelling Catheter Updated: 03/07/25 1144 Echo complete W/O contrast Result Date: 02/26/2025 Left Ventricle: Left ventricle is small. Systolic function is normal with an ejection fraction of 60-65%. No segmental wall motion abnormalities. Grade I diastolic dysfunction (impaired relaxation) is present. Lateral E' is 11.70 cm/s. Medial E' is 7.94 cm/s. Right Ventricle: Right ventricular sizeappears normal. The right ventricular basal diameter is 22.0 mm. Systolic function is normal. Aortic Valve: There is trace to mild regurgitation. There is no evidence of aortic valve stenosis. CT angiogram chest Result Date: 02/25/2025 CLINICAL INFORMATION: DVT's TECHNIQUE: CT CTA CHEST CTA of the chest was obtained post intravenous administration of contrast. Post processed three- dimensional maximum intensity projection imaging was acquired and evaluated. There are moderate right-sided pulmonary emboli. No appreciable right heart strain. Right lower lobe infiltrate or atelectasis appreciated. There are bilateral pulmonary nodules appreciated most suggestive of metastasis, as previous described. Limited images of the upper abdomen again show free intraperitoneal fluid. Refer to previously dictated CT abdomen. No obvious medi astinal lymphadenopathy. Coronary arterial atherosclerotic calcification noted. Osseous structures appear grossly intact. IMPRESSION: Moderate right sided pulmonary emboli without evidence of right heart strain. Right lower lobe infiltrate or atelectasis. Numerous pulmonary nodules, likely metastasis. I personally called these findings to nurse Muhammad of the clinical service at time of dictation.All CT scans at this facility use dose modulation, iterative reconstruction, and/or weight based dosing when appropriate to reduce radiation dose to as low as reasonably achievable. Finalized by Chau Nicole MD on 02/25/2025 7:09 PM Echo/Stress: Echo complete W/O contrast Result Date: 02/26/2025 Left Ventricle: Left ventricle is small. Systolic function is normal with an ejection fraction of 60-65%. No segmental wall motion abnormalities. Grade I diastolic dysfunction (impaired relaxation) is present. Lateral E' is 11.70 cm/s. Medial E' is 7.94 cm/s. Right Ventricle: Right ventricular sizeappears normal. The right ventricular basal diameter is 22.0 mm. Systolic function is normal. Aortic Valve: There is trace to mild regurgitation. There is no evidence of aortic valve stenosis. EKG: No results found. Imaging: Ultrasound pelvic with transvaginal Result Date: 02/28/2025 Narrative: US PELVIC WITH TRANSVAGINAL HISTORY: Ovarian mass COMPARISON: CT abdomen pelvis dated 02/24/2025 TECHNIQUE: Transabdominal and transvaginal sonographic evaluation of the pelvis. Transabdominal imaging performed to evaluate for extra adnexal pelvic pathology. Transvaginal imaging performedfor better delineation of the adnexal and endometrial contents. Real time grayscale, color flow imaging, and duplex spectral Doppler waveform analysis was performed of the major arterial inflow and venous outflow structures of the pelvic mass with arterial and venous spectral waveforms obtained, documented, and reviewed in the setting of provided history. FINDINGS: Uterus: 5.3 x 3.3 x 1.6 cm Endom etrial Thickness: 0.2 cm The uterus demonstrates appropriate size and echo pattern. The endometriumis unremarkable. The ovaries are not confidently identified as individual structures. There is a 18.2 x 16.3 x 11.2 cm, multiloculated, cystic and solid lesion in the pelvis, which demonstrates consulting intern al color flow, arterial waveforms, and venous waveforms. Color score: 4. Free fluid in the pelvis with low level echoes. On comparison CT abdomen pelvis, there was peritoneal nodularity. IMPRESSION: O-RADS US 5 (high risk): 18.2 cm cystic and solid lesion in the pelvis with ascites and peritoneal nodularity. Finalized by Jason Humphrey MD on 02/28/2025 7:10 PM IR percutaneous needle biopsy abdomen retroperitoneal Result Date: 02/28/2025 Narrative: EXAM: CT-guided percutaneous core biopsy of anterior peritoneal nodule CLINICAL INDICATION: Peritoneal masses unclear etiology CONSENT: The risks, benefits, and expectations of the procedure were explained to the patient who signed a written consent. TIME OUT: Ball Protocol Time OutVerification performed. ANESTHESIA: 100 mcg of fentanyl was given for pain control 1% Lidocaine used as local anesthetic. TECHNIQUE:All CT scans at this facility use dose modulation, iterative reconstruction, and/or weight based dosing when appropriate to reduce radiation dose to as low as reasonably achievable. PROCEDURE: In the supine position, the peritoneal nodule was evaluated with CT which revealed a good window for biopsy. The overlying skin was prepped and draped in a sterile fashion and infiltrated with 1% lidocaine. Using intermittent CT guidance, a 17-gauge guiding needle was advanced into the targeted structure and a route sales representative image was obtained and saved in PACS. A [id number] core biopsy needle was then advanced through the guiding needle, and multiple 18-gauge core biopsies were obtained and submitted in formalin. Gelfoam tract embolization was performed. The needle was removed and hemostasis achieved by manual compression. Postprocedural scanning demonstratesexpected post biopsy changes and no immediate complication. A dressing was placed. The patient tolerated the procedure well. Estimated blood loss: Minimal Complications: None. IMPRESSION: Successful CT-guided core needle biopsy of peritoneal nodule. Finalized by Deena Palma MD on 02/28/2025 4:02 PM IR paracentesis diagnostic treatment with guidance Result Date: 02/28/2025 Narrative: EXAM: ULTRASOUND-GUIDED PARACENTESIS CLINICAL HISTORY: abdominal ascitis. CONSENT: The risks and benefits of the procedure were explained to the patient signed written consent. PROCEDURE/FINDINGS: All four quadrant of the abdomen were evaluated with ultrasound which showed small amount of free fluid in the abdomen . The left lower quadrant was prepped and draped in a sterile fashion and the skin infiltrated with 1% lidocaine. Real time ultrasound guidance was used during the punctureof the peritoneal cavity with an 18-gauge Yueh needle under direct ultrasound needle visualization,and an ultrasound route sales representative image was obtained and saved in PACS. The catheter was connected to vacuum bottles, and approximately 1.8 liters of ludivina fluid was removed and submitted for analysis. The needle was removed and dressing placed. No immediate complications. Estimated blood loss: Minimal IMPRESSION: Ultrasound guided paracentesis with removal of 1800 mL of ludivina fluid. Finalized by Deena Palma MD on 02/28/2025 4:00 PM Echo complete W/O contrast Result Date: 02/26/2025 Narrative: Left Ventricle: Left ventricle is small. Systolic function is normal with an ejection fraction of 60-65%. No segmental wall motion abnormalities. Grade I diastolic dysfunction (impaired relaxation) is present. Lateral E' is 11.70 cm/s. Medial E' is 7.94 cm/s. Right Ventricle: Right ventricular size appears normal. The right ventricular basal diameter is 22.0 mm. Systolic function is normal. Aortic Valve: There is trace to mild regurgitation. There is no evidence of aortic valve stenosis. CT angiogram chest Result Date: 02/25/2025 Narrative: CLINICAL INFORMATION: DVT's TECHNIQUE: CT CTA CHEST CTA of the chest was obtained post intravenous administration of contrast. Post processed three- dimensional maximum intensity projectionimaging was acquired and evaluated. There are moderate right-sided pulmonary emboli. No appreciableright heart strain. Right lower lobe infiltrate or atelectasis appreciated. There are bilateral pulmonary nodules appreciated most suggestive of metastasis, as previous described. Limited images of the upper abdomen again show free intraperitoneal fluid. Refer to previously dictated CT abdomen. No obvious mediastinal lymphadenopathy. Coronary arterial atherosclerotic calcification noted. Osseous structures appear grossly intact. IMPRESSION: Moderate right sided pulmonary emboli without evidenceof right heart strain. Right lower lobe infiltrate or atelectasis. Numerous pulmonary nodules, likely metastasis. I personally called these findings to nurse Muhammad of the clinical service at time ofdictation. All CT scans at this facility use dose modulation, iterative reconstruction, and/or weight based dosing when appropriate to reduce radiation dose to as low as reasonably achievable. Finalized by Chau Nicole MD on 02/25/2025 7:09 PM Vas venous duplex lwr bilateral Result Date: 02/24/2025 Narrative: Right: Dilated noncompressible distal femoral, popliteal, posterior tibial, peroneal anddeep calf muscle veins with hypoechoic intraluminal content and absent spectral Doppler signals. Remaining visualized deep venous segments are compressible with spontaneous phasic spectral Doppler waveforms. Superficial veins are compressible. Left: Limited contralateral duplex evaluation completed. Dilated Non-compressible deep calf muscle veins with hypoechoic intraluminal content and absent spectral Doppler signals. Common femoral, femoral, and popliteal veins are compressible without intraluminal content. Spontaneous, common femoral, femoral and popliteal spectral Doppler signals. Evaluation of superficial veins was not performed. Conclusions: RIGHT:ACUTE femoropopliteal deep vein thrombosis (DVT).ACUTE deep tibioperoneal vein thrombosis (DVT). ACUTE deep calf muscle vein thrombosis (DVT). NO EVIDENCE of superficial vein thrombosis of the lower extremity. LEFT:Limited visualization o f lower extremity venous segments.ACUTE deep calf muscle vein thrombosis (DVT). CT abdomen and pelvis with contrast Result Date: 02/24/2025 Narrative: CLINICAL INFORMATION: Localized swelling, mass and lump, lower limb, right; Generalized abdominal pain; Abdominal distension; SOB (shortness of breath); Tachycardia TECHNIQUE: CT ABDOMEN AND PELVIS W CONT CT images of the abdomen and pelvis are obtained. Intravenous contrast was administered. Images are reformatted in the sagittal and coronal planes. There are no prior exams available for comparison. There is diffuse free intraperitoneal fluid. Large partially solid and partially cystic lesion noted within the right adnexa measuring 16 cm x 12 cm x 11 cm. Ovarian carcinoma is the diagnosis of exclusion. Regions of soft tissue nodularity noted anterior lower abdomen. There are small bilateral lower lobe pulmonary nodules. Right basilar atelectasis also appreciated. Pancreas unremarkable. Adrenal symmetric. Large dependently layering gallstone. Small bowel is nondistended without evidence of obstruction. Mild thoracolumbar degenerative changes. No acute osseous abnormalities. Prominent nodes appreciated at the diya hepatis. IMPRESSION: Large partially solid partially cystic lesion within the right adnexa. Ovarian carcinoma is diagnosis of exclusion. 2.5 cm solid right renal lesion. Renal cell carcinoma is diagnosis of exclusion. Diffuse free intraperitoneal fluid. Small bilateral noncalcified lower lobe pulmonary nodules and lower anterior abdominal soft tissue nodules, likely metastasis. Prominent nodes in diya hepatis. THIS REPORT CONTAINS A SIGNIFICANT RESULT AND/OR RECOMMENDATION, WHICH REQUIRES THE ATTENTION OF THE LICENSED CAREGIVER RESPONSIBLE FOR THIS PATIENT. THEREFORE, I SPECIFICALLY DESIGNATED THIS REPORT TO BE TELEPHONED BY THE RADIOLOGY DEPARTMENT. FINDINGS WERE INSTRUCTED TO BE CALLED TO THE CLINICAL SERVICE ON 02/24/2025 AT 4:[address] scans at this facility use dose modulation, iterative reconstruction, and/or weight based dosing when appropriate to reduce radiation dose to as low as reasonably achievable. Finalized by Chau Nicole MD on 02/24/2025 4:15 PM X-ray chest 2 views Result Date: 02/19/2025 Narrative: XR CHEST 2 VWS HISTORY: Bronchitis COMPARISON: None FINDINGS: The trachea is midline. The cardiomediastinal silhouette is not enlarged. No pneumothorax or pleural effusion. Bibasilar linear airspace opacities. No focal consolidation. Multilevel degenerative changes of the thoracic spine.IMPRESSION: * Bibasilar linear airspace opacities most compatible with atelectasis. Approved by Resident Liu Apodaca MD on 02/19/2025 9:45 AM I, Dheeraj Wang MD have personally reviewed the image(s) and agree with and/or edited the report Finalized by Dheeraj Wang MD on 02/19/2025 10:56 AM Meds: Current Facility-Administered Medications: acetaminophen (OFIRMEV) IVPB Premix 1,000 mg, 1,000 mg, intravenous, Q6H, OK Dang, Stopped at 03/07/25 1446 amLODIPine (NORVASC) tablet 10 mg, 10 mg, oral, Daily, Eleni Harding APRN- ASSISTANT DIRECTOR OF [employer], 10 mg at cefTRIAXone (ROCEPHIN) 2,000 mg in sodium chloride 0.9 % 50 mL IVPB W/ADAPTER, 2,000 mg, intravenous, Q24H, Nuvia Flannery APRN-ASSISTANT [employer]OR [employer] D5 % and 0.45 % sodium chloride 1,000 mL with sodium bicarbonate 8.4 % (1 mEq/mL) 75 mEq infusion, 100 mL/hr, intravenous, Continuous, Brenda Hayes MD, Last Rate: 100 mL/hr at 03/07/25 1041, 100 mL/hr at 03/07/25 1041 dextrose (GLUTOSE) 40 % gel 15 g, 15 g, oral, PRN, Neelima Ta APRN-DUYEN dextrose 5 % (D5W) infusion, 100 mL/hr, intravenous, Continuous PRN, Neelima Ta APRN-ASSISTANT [employer] dextrose 5 % and sodium chloride 0.45 % infusion, 50 mL/hr, intravenous, Continuous, Brenda Hayes MD, Last Rate: 50 mL/hr at 03/07/25 1422, 50 mL/hr at 03/07/25 1422 dextrose 50 % in water (D50W) 50% solution 25 mL, 25 mL, intravenous, PRN, ELLIOTT Yoo folic acid (FOLVITE) tablet 1 mg, 1 mg, oral, Daily, Tanya Nayana, ELLIOTT, 1 mg at 03/07/25 1029 glucagon HCL injection 1 mg, 1 mg, intramuscular, PRN, ELLIOTT Yoo heparin (porcine) injection 5,000 Units, 5,000 Units, intravenous, PRN, ELLIOTT Finney hydrALAZINE (APRESOLINE) injection 10 mg, 10 mg, intravenous, Q6H PRN, ELLIOTT Finney, 10 mg at 03/04/25 1335 HYDROmorphone (DILAUDID) injection 0.5 mg, 0.5 mg, intravenous, Q2H PRN, OK Dang HYDROmorphone (PF) (DILAUDID) injection 1 mg, 1 mg, intravenous, Q2H PRN, OK Dang magnesium sulfate IVPB 2000 mg/50 mL in iso-osmotic water (40 mg/mL premix), 2,000 mg, intravenous,PRN, Neelima Ta APRN-DUYEN magnesium sulfate IVPB 4000 mg/100 mL in iso-osmotic water (40 mg/mL premix), 4,000 mg, intravenous, PRN, ELLIOTT Yoo metroNIDAZOLE (FLAGYL) IVPB 500 mg/100 mL in iso-osmotic sodium chloride (5 mg/mL premix), 500 mg, intravenous, Q12H, ELLIOTT Rendon ondansetron (PF) (ZOFRAN) injection 4 mg, 4 mg, intravenous, Q4H PRN, ELLIOTT Yoo, 4 mg at 03/04/25 1700 oxyCODONE (ROXICODONE) immediate release tablet 2.5 mg, 2.5 mg, oral, Q4H PRN AND oxyCODONE (ROXICODONE) immediate release tablet 5 mg, 5 mg, oral, Q4H PRN, Kaleigh Washburn MD pantoprazole (PROTONIX) injection 40 mg, 40 mg, intravenous, Q12H, OK Dang phytonadione (Vitamin K) (AQUA-MEPHYTON) 10 mg in sodium chloride 0.9 % 50 mL IVPB, 10 mg, intravenous, Once, ELLIOTT Christina potassium chloride (K-TAB,KLOR-CON) CR tablet 30-50 mEq, 30-50 mEq, oral, PRN, 30 mEq at 03/04/25 1534 OR potassium chloride (KAYCIEL) 20 mEq/15 mL solution 30-50 mEq, 30-50 mEq, oral, PRN ORpotassium chloride IVPB 10 mEq/100 mL in water (0.1 mEq/mL premix), 10 mEq, intravenous, PRN, ELLIOTT Yoo sodium chloride 0.9 % flush 10 mL, 10 mL, intravenous, PRN, Deena Branch MD, 10 mL at 02/25/25 1857 sodium chloride 0.9 % infusion, 20 mL/hr, intravenous, Continuous PRN, ELLIOTT Yoo, Last Rate: 20 mL/hr at 03/07/25 1425, 20 mL/hr at 03/07/25 1425 sodium chloride 0.9 % infusion, 20 mL/hr, intravenous, Continuous PRN, ELLIOTT Christina Copy sent to Dr. Riya Diego MD This note was created with the assistance of a speech-recognition program. Although the intention is to generate a document that actually reflects the content of the visit, no guarantees can be provided that every mistake has been identified and corrected by editing. Note was updated later by me after physical examination and completion of the assessment. * Sheri Parry RD - 03/07/2025 11:39 AM EDT NUTRITION ADULT FOLLOW UP NUTRITION ASSESSMENT: Patient History: Brief Clinical Summary: Patient presented with abnormal CT AP and cold-like symptoms/difficulty breathing. Admitted for treatment. PMHx includes DVT. Biochemical Data, Medical Tests, and Procedures: 02/24 CT AP: ovarian lesion, renal lesion, pulmonary lesions - likely mets 02/28 IR paracentesis (-1850mL removed) 02/28 US pelvis: 18.2 cm cystic and solid lesion in the pelvis with ascites and peritoneal nodularity 02/28- IR paracentesis for ascites fluid, 1800 mL fluid removed. 03/06 CTA- Colonic dilatation with transition at the sigmoid junction. Concern for obstruction from the known large rectal mass vs multicentric colorectal carcinoma. Failed bowel prep x2 Labs: Results from last 3 days Lab Units 03/07/25 0626 03/06/25 0536 03/05/25 0403 SODIUM mmol/L 135 136 138 POTASSIUM mmol/L 3.7 4.2 4.0 CHLORIDE mmol/L 103 104 106 CO2 mmol/L 22 18* 17* BUN mg/dL 35* 33* 23 CREATININE mg/dL 1.16* 1.22* 0.95 CALCIUM mg/dL 8.3* 9.2 9.2 Results from last 7 days Lab Units 03/07/25 0626 03/06/25 0536 03/05/25 0403 03/04/25 0716 03/03/25 0436 03/02/25 0644 03/01/25 0609 GLUCOSE mg/dL 151* 105* 123* 98 82 96 92 Results from last 3 days Lab Units 03/07/25 0626 03/06/25 1401 03/06/25 0536 03/05/25 0403 WBC x10E9/L 17.9* -- 15.4* 16.0* HEMOGLOBIN g/dL 11.0* 11.2* 11.2* 10.8* HEMATOCRIT % 35.3 -- 35.8 34.7* PLATELETS X10E9/L 341 366 358 391 MCV fL 75* -- 74* 72* Results from last 3 days Lab Units 03/07/25 0626 03/06/25 0536 03/05/25 0403 MAGNESIUM mg/dL 2.6 2.6 2.4 No data from last 3 days. Results from last 3 days Lab Units 03/06/25 1241 BILIRUBIN URINE Negative No results found for: HGBA1C Lab Results Component Value Date IRON 12 (L) 02/26/2025 TIBC 321 02/26/2025 FERRITIN 78 02/26/2025 Lab Results Component Value Date IRONSAT 4 (L) 02/26/2025 No results found for: CHOL No results found for: CHDL No results found for: HDL No results found for: LDLCALC No results found for: TRIG No results found for: VERYLOWLIP Lab Results Component Value Date [id number] 110 (L) 02/26/2025 Lab Results Component Value Date FOLATE 3.3 (L) 02/26/2025 No results found for: VITD25 Comments (labs): Glu: 151, increased creatinine/BUN, decreased eGFR. Medications/ Parenteral: Folvite, Protonix, D5w with NaCl @ 100 ml/hr (provides 408 kcal/day) Current Facility-Administered Medications Medication Dose Route Frequency Provider Last Rate Last Admin acetaminophen (TYLENOL) tablet 650 mg 650 mg oral Q6H PRN Neelima Ta APRN- DUYEN 325 mg at 03/01/25 0824 amLODIPine (NORVASC) tablet 10 mg 10 mg oral Daily Eleni Harding APRN-ASSISTANT [employer]OR [employer] 10 mg at 03/07/25 1029 D5 % and 0.45 % sodium chloride 1,000 mL with sodium bicarbonate 8.4 % (1 mEq/mL) 75 mEq infusion 100 mL/hr intravenous Continuous Brenda Hayes MD 100 mL/hr at 03/07/25 1041 100 mL/hr at 03/07/25 1041 dextrose (GLUTOSE) 40 % gel 15 g 15 g oral PRN ELLIOTT Yoo dextrose 5 % (D5W) infusion 100 mL/hr intravenous Continuous PRN ELLIOTT Yoo dextrose 50 % in water (D50W) 50% solution 25 mL 25 mL intravenous PRN ELLIOTT Yoo folic acid (FOLVITE) tablet 1 mg 1 mg oral Daily Tanya KrausVIKASSISTANT DIRECTOR OF RESIDENCE LIFE 1 mg at 03/07/25 1029 glucagon HCL injection 1 mg 1 mg intramuscular PRN ELLIOTT Yoo heparin (porcine) injection 5,000 Units 5,000 Units intravenous PRN ELLIOTT Finney heparin infusion 79615 units/500 mL in 0.45% NaCl (50 units/mL premix) 300-3,500 Units/hr intravenous Continuous ELLIOTT Finney 37 mL/hr at 03/07/25 1041 1,850 Units/hr at 03/07/25 1041 hydrALAZINE (APRESOLINE) injection 10 mg 10 mg intravenous Q6H PRN ELLIOTT Finney 10 mg at 03/04/25 1335 magnesium sulfate IVPB 2000 mg/50 mL in iso-osmotic water (40 mg/mL premix) 2,000 mg intravenous PRN ELLIOTT Yoo magnesium sulfate IVPB 4000 mg/100 mL in iso-osmotic water (40 mg/mL premix) 4,000 mg intravenous PRN ELLIOTT Yoo ondansetron (PF) (ZOFRAN) injection 4 mg 4 mg intravenous Q4H PRN ELLIOTT Yoo 4 mg at03/04/25 1700 oxyCODONE (ROXICODONE) immediate release tablet 2.5 mg 2.5 mg oral Q4H PRN Kaleigh Washburn MD And oxyCODONE (ROXICODONE) immediate release tablet 5 mg 5 mg oral Q4H PRN Kaleigh Washburn MD pantoprazole (PROTONIX) EC tablet 40 mg 40 mg oral QAM AC VIK Yoo CNP 40 mg at 03/06/25 0533 potassium chloride (K-TAB,KLOR-CON) CR tablet 30-50 mEq 30-50 mEq oral PRN Neelima Ta APRN-ASSISTANT [employer] 30 mEq at 03/04/25 1534 Or potassium chloride (KAYCIEL) 20 mEq/15 mL solution 30-50 mEq 30-50 mEq oral PRN ELLIOTT Yoo Or potassium chloride IVPB 10 mEq/100 mL in water (0.1 mEq/mL premix) 10 mEq intravenous PRN Neelima R Ta, STUDENT TRUCK DRIVER-ASSISTANT [employer]OR [employer] sennosides-docusate sodium (SENOKOT-S) 8.6-50 mg 1 tablet 1 tablet oral Q12H PRN Neelima R Ta, STUDENT TRUCK DRIVER-ASSISTANT [employer] sodium chloride 0.9 % flush 10 mL 10 mL intravenous PRN Deena Branch MD 10 mL at 02/25/25 1857 sodium chloride 0.9 % flush 3 mL 3 mL intravenous PRN Neelima R Ta, STUDENT TRUCK DRIVER-ASSISTANT [employer] sodium chloride 0.9 % flush 3 mL 3 mL intravenous Q12H JOSE Neelima R Ta, STUDENT TRUCK DRIVER-ASSISTANT [employer] 3 mL at 03/07/25 1030 sodium chloride 0.9 % flush bag 25 mL intravenous PRN Neelima R Ta, STUDENT TRUCK DRIVER-ASSISTANT [employer] sodium chloride 0.9 % infusion 20 mL/hr intravenous Continuous PRN Neeilma R Ta, STUDENT TRUCK DRIVER-ASSISTANT [employer] sodium,potassium,mag sulfates (SUPREP) 17.5-3.13-1.6 gram solution 177 mL 177 mL oral Once Wasef Soledad Segura MD Nutrition Focused Physical Findings Last BM: 03/04, +3 edema, +Bloating, distension, loss of appetite. Extremities, Muscles, and Bones- appears WNL. Skin (per nursing flow sheets): Skin Color: [place]; Pale (03/06/252099) Skin Temp: Warm; Dry (03/06/252099) Wound (per nursing flow sheets): Gastrointestinal (per nursing flow sheets): Abdomen Assessment: Gross ascites; Rounded; Tenderness (03/06/252099) Last BM Date: 03/04/25 (03/06/25 0900) Passing Flatus: Yes (03/06/252099) RUQ Bowel Sounds: Active (03/06/252099) LUQ Bowel Sounds: Active (03/06/252099) RLQ Bowel Sounds: Active (03/06/252099) LLQ Bowel Sounds: Active (03/06/252099) GI Symptoms: Bloating; Distention; Loss of appetite (03/06/252099) Edema (per nursing flow sheets): RLE Edema: +3 (03/06/252099) LLE Edema: +3 (09/04/25 2100) Intake/ Output Last 24 hrs: Intake/Output Summary (Last 24 hours) at 03/07/2025 1139 Last data filed at 03/07/2025 1041 Gross per 24 hour Intake 3225.33 ml Output 635 ml Net 2590.33 ml Food/Nutrition Related History: Diet/ Nutrition Order Review: Dietary Orders (From admission, onward) Start Ordered 03/06/25 1343 Adult diet NPO Diet effective now Question: Diet Type: Answer: NPO 03/06/25 1346 Diet Intakes: NPO/CLD for 6 days. Nutrition Knowledge/Beliefs/Attitudes: Discussed possibility of parenteral nutrition with patient and answered questions. Anthropometrics: Last 3 Weight Readings 03/06/25 1232 03/07/25 0427 03/07/25 1100 Weight: 77.8 kg (171 lb 8.3 oz) 80.5 kg (177 lb 7.5 oz) 79.4 kg (175 lb 0.7 oz) Current Weight: 85.9 kg (bed scale, 03/05) Admit Weight: 74.8 kg (Standing Scale, 02/26) [place] Body Weight: 50 kg Weight Changes: Variable weight this admission, (varying scales used); appears to have gained sinceadmit. Current Body Mass Index: Body mass index is 32.01 kg/m??. Comparative Standards: Estimated Energy Needs: 3521-5910 kcals daily. Method and weight used: 25-30 kcal/kg IBW Estimated Protein Needs: 60-100 grams daily. Method and weight used: 1.2-2g protein/kg IBW Estimated Fluid Needs: 3629-8181 ml daily. Method weight used: 1mL/kcal Comments: floor needs, higher end for cancer Malnutrition Status: Malnutrition Present: No, at risk due to NPO/CLD for > 5 days. NUTRITION DIAGNOSIS: Intake Diagnosis: Inadequate energy intake (NI 1.2)- ongoing NUTRITION INTERVENTIONS: Currently NPO Coordination of care: Discussed with MD RECOMMENDATIONS: If unable to advance diet beyond CLD within 24-48 hrs highly recommend nutrition support as appropriate; RD available via consult for TPN management as relevant. If medically appropriate recommend Parenteral Nutrition: Day 1 base solution: 45 g 15% amino acids, 110 g D70%, 20 g SMOF lipids to provide 754 kcal and 45 g protein per day. Goal base solution: 90 g 15% amino acids, 220 g D70%, 40 g SMOF lipids to provide 1508 kcal and 90 g protein per day. GOAL(S): Meet estimated calorie and protein needs. NUTRITION MONITORING AND EVALUATION: PO intakes, weight trend, labs, POC and overall status. Sheri Parry RD, LD Clinical Dietitian Direct Line: * Fernanda Soliman MD - 03/07/2025 10:30 AM EDT Images from the original note were not included. Pulmonary Critical Care Progress Note Patient seen for the follow up of acute moderate right sided pulmonary emboli, acute DVT, right lower lobe infiltrate pulmonary nodules, previous smoker, ovarian mass, renal mass Subjective: Patient is sitting at the bedside with nursing staff present. Her CT abdomen and pelvis yesterday showed obstruction secondary to pelvic mass. She complains of belching and some nausea, no vomiting. She denies chest pain. She has not occasional dry cough She was restarted on a heparin drip. Her shortness of breath is improved. Examination: Vitals: BP 138/69 Pulse 89 Temp 36.7 ??C (98 ??F) (Axillary) Resp 16 Ht 157.5 cm (5' 2.01 ) Wt 80.5 kg (177 lb 7.5 oz) SpO2 90% BMI 32.45 kg/m?? General appearance: In no acute distress, alert and cooperative with exam, EOM I Neck: No JVD Lungs: Moderate air exchange, no wheezing or rhonchi Heart: regular rate and rhythm, S1, S2 normal, no gallop Abdomen:non tender, + BS, rounded, firm Extremities: no cyanosis or clubbing. no skin rash or petechiae, bilateral lower extremity edema LABs: Results from last 7 days Lab Units 03/07/25 0626 03/06/25 1401 03/06/25 0536 03/05/25 0403 WBC x10E9/L 17.9* -- 15.4* 16.0* HEMOGLOBIN g/dL 11.0* 11.2* 11.2* 10.8* HEMATOCRIT % 35.3 -- 35.8 34.7* PLATELETS X10E9/L 341 366 358 391 Results from last 7 days Lab Units 03/07/25 0626 03/06/25 0536 03/05/25 0403 SODIUM mmol/L 135 136 138 POTASSIUM mmol/L 3.7 4.2 4.0 CHLORIDE mmol/L 103 104 106 CO2 mmol/L 22 18* 17* BUN mg/dL 35* 33* 23 CREATININE mg/dL 1.16* 1.22* 0.95 CALCIUM mg/dL 8.3* 9.2 9.2 Echo complete W/O contrast 02/26/2025 EF 60-65%. Systolic function is normal. There is trace to mild regurgitation. There is no evidence of aortic valve stenosis. Radiology: X-ray chest 03/06/25 CT chest 02/25/25 Impression & Recommendations: Acute right-sided pulmonary emboli/acute DVT right femoropopliteal, tibioperoneal, deep calf, left deep calf muscle Heparin drip has been restarted, plans to restart Eliquis Echocardiogram with EF of 60-65%, normal right ventricular systolic function Right lower lobe infiltrate/Multiple pulmonary nodules, suspected metastasis Oncology following Infectious disease following, completed Rocephin and Flagyl Ovarian mass/renal mass Gynecologic/oncology consulted/Medical oncology consulted, input noted Recommended GI evaluation given elevated tumor markers Unable to complete EGD/colonoscopy secondary to patient intolerance to prep Infectious Disease managing antibiotics, Rocephin and Flagyl courses complete S/p paracentesis and soft tissue nodule biopsy 02/28/2025 with removal of 1850 mL of ludivina ascites fluid Peritoneal fluid culture is negative to date 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 Concern for obstruction from the known large rectal mass vs multicentric colorectal carcinoma + Similar appearance of a 20 cm cystic pelvic lesion, recently characterized as rectal adenocarcinoma + Peritoneal carcino matosis General surgery consulted ? Need for NG tube placement Acute kidney injury/hydronephrosis Nephrology following Urology following Bicarb drip per Nephrology Previous smoker, quit 12 years ago, 42 pack year history/Probable COPD Outpatient PFTs DVT prophylaxis with Eliquis PUD prophylaxis with PPI Discussed with infectious disease and oncology team Fernanda Soliman MD, [facility] Pulmonary Critical Care and Sleep Medicine, [facility] Office: [phone] The note was completed using EMR. Every effort was made to ensure accuracy; however, inadvertent computerized logistics project manager errors may be present. * Nuvia Flannery, ELLIOTT - 03/07/2025 10:20 AM EDT Images from the original note were not included. Division of Infectious Diseases Progress note Academic Team Please contact us via [employer] chat. After hours, call [phone] Patient name: Caren Suarez Patient Today's Date and Time: 03/07/2025, 10:20 AM Admission Date: 02/25/2025 Primary Care Physician: Riya Diego MD Impression and Recommendations: Leukocytosis Bacterial Peritonitis Ovarian Cystic Lesion CT a/p demonstrated large partially solid and partially cystic lesion in the R adnexa measuring 16 x 12 x 11 cm and lower anterior abdominal soft tissue nodules, 2.5 cm solid R renal lesion and diffuse intraperitoneal fluid S/P paracentesis 02/28/2025 - nucleated cells are elevated at 1900 with neutrophil predominance (60%) Peritoneal fluid culture is negative to date Abdominal soft tissue mass 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 GI signed off Documented allergy to PCN Completed course of abx for peritonitis Will monitor off antibiotics Ovarian Cystic Lesion Bowel obstruction Large abdominal mass/colorectal adenocarinoma CT today showed colonic dilatation with transition at the sigmoid junction. Concern for obstructionfrom the known large rectal mass vs multicentric colorectal carcinoma General surgery has been consulted TASHA Nephrology following Right hydronephrosis Likely secondary to pelvic mass effect on ureter Urology following Acute PE, with R heart strain Numerous pulmonary nodules likely metastasis Subjective Interval History: Patient seen and examined at bedside. Awake and alert. No abdominal pain. Discussed with nursing atbedside. No vomiting today. No fever, chills or sweats. No shortness of breath or cough. No nausea or diarrhea Objective Physical Examination : BP 138/69 Pulse 89 Temp 36.7 ??C (98 ??F) (Axillary) Resp 16 Ht 157.5 cm (5' 2.01 ) Wt 80.5 kg (177 lb 7.5 oz) SpO2 90% BMI 32.45 kg/m?? Temperature Range: Temp: 36.7 ??C (98 ??F) Temp Av.4 ??C (97.5 ??F) Min: 36.3 ??C (97.3 ??F) Max: 36.7 ??C (98 ??F) General Appearance: Awake, alert, and in no apparent distress Eyes: Sclera anicteric; conjunctivae pink ENT: Oropharynx clear, without erythema, exudate, or thrush. Neck: Supple, without lymphadenopathy. Pulmonary/Chest: Clear to auscultation, without wheezes, rales, or rhonchi Cardiovascular: Regular rate and rhythm without murmurs, rubs, or gallops. Abdomen: distended. Soft. nontender Extremities: No cyanosis, clubbing, , or effusions. +BLE edema Neurologic: Bulk and tone are normal. No atrophy is noted. Skin: No rash or lesions. Laboratory data: I have independently reviewed the following labs: Results from last 7 days Lab Units 03/07/25 0626 03/06/25 1401 03/06/25 0536 03/05/25 0403 WBC x10E9/L 17.9* -- 15.4* 16.0* HEMOGLOBIN g/dL 11.0* 11.2* 11.2* 10.8* HEMATOCRIT % 35.3 -- 35.8 34.7* MCV fL 75* -- 74* 72* PLATELETS X10E9/L 341 366 358 391 Results from last 7 days Lab Units 03/07/25 0626 03/06/25 0536 03/05/25 0403 SODIUM mmol/L 135 136 138 POTASSIUM mmol/L 3.7 4.2 4.0 CHLORIDE mmol/L 103 104 106 CO2 mmol/L 22 18* 17* BUN mg/dL 35* 33* 23 CREATININE mg/dL 1.16* 1.22* 0.95 CALCIUM mg/dL 8.3* 9.2 9.2 Results from last 7 days Lab Units 03/06/25 1241 COLOR UA Yellow TURBIDITY Hazy* SPECIFIC GRAVITY, URINE 1.023 NITRITE UA Negative PH URINE 6.0 LEUKOCYTE ESTERASE Small* PROTEIN 50 mg/dL* KETONES (URINE) 20 mg/dL* UROBILINOGEN <1.1 eu/dL BLOOD Large* R. B. CELLS 197* WBC UA 25* Echo complete W/O contrast Result Date: 02/26/2025 Left Ventricle: Left ventricle is small. Systolic function is normal with an ejection fraction of 60-65%. No segmental wall motion abnormalities. Grade I diastolic dysfunction (impaired relaxation) is present. Lateral E' is 11.70 cm/s. Medial E' is 7.94 cm/s. Right Ventricle: Right ventricular sizeappears normal. The right ventricular basal diameter is 22.0 mm. Systolic function is normal. Aortic Valve: There is trace to mild regurgitation. There is no evidence of aortic valve stenosis. Imaging Studies: CT abdomen and pelvis without contrast [[id number]] Collected: 03/06/25 1145 Order Status: Completed Updated: 03/06/25 1205 Narrative: CT ABDOMEN AND PELVIS WO CONT CLINICAL INDICATION: Hydronephrosis; OBS uropathy, Abd distension . COMPARISON STUDY: 02/24/2025. TECHNIQUE: CT scan of the abdomen and pelvis performed without IV or PO contrast. Coronal and sagittal reformats generated and reviewed. FINDINGS: Lack of intravenous contrast limits evaluation of the viscera and vessels. LOWER THORAX: Indeterminate bilateral lung base nodules. HEPATOBILIARY: No focal aggressive appearing hepatic lesions. No biliary ductal dilatation. Cholelithiasis. SPLEEN: Atrophic. PANCREAS: Grossly normal for technique. ADRENALS: No exophytic adrenal nodules. KIDNEYS/URETERS: Redemonstrated 2.2 cm right renal mass lesion. No obstructive renal calculus. No collecting system dilatation. Bladder: Underdistended, limiting evaluation. PELVIC ORGANS: Similar appearance of a 20 cm cystic pelvic lesion, reportedly rectal origin adenocarcinoma. GI TRACT: Colonic dilatation with transition at the sigmoid junction. LYMPH NODES: 1.1 cm mesorectal node versus pelvic wall deposit. VESSELS: No abdominal aortic aneurysm. BONES AND SOFT TISSUES: Few sclerotic pelvic lesions. PERITONEUM/RETROPERITONEUM: Small volume free fluid. Multiple pelvic wall deposits including (series 2) -Image 56, 2.7 x 2.0 cm, left pelvic sidewall, -Image 48, 1.3 cm, left anterior peritoneum -Image 28, 1.4 x 1.0 cm, left anterior peritoneum IMPRESSION: * Colonic dilatation with transition at the sigmoid junction. Concern for obstruction from the known large rectal mass vs multicentric colorectal carcinoma. Postprocedural ileus or colonic pseudoobstruction could appear similarly in the appropriate clinical setting. * Similar appearance of a 20 cm cystic pelvic lesion, recently characterized as rectal adenocarcinoma. * Peritoneal carcinomatosis. * Indeterminate bilateral lung base pulmonary nodules, presumed metastatic. * Few sclerotic pelvic lesions may reflect additional osseous metastases. * Mild right hydroureteronephrosis, likely secondary to pelvic mass effect on the ureter. * Redemonstrated 2.2 cm right interpolar renal mass lesion concerning for RCC. All CT scans at this facility use dose modulation, iterative reconstruction, and/or weight based dosing when appropriate to reduce radiation dose to as low as reasonably achievable. Clinically significant results were instructed to call for clinical service on 03/06/2025 at 12:04 PM. This will be documented in [employer] results tracking once complete. Finalized by Amari Mcgregor on 03/06/2025 12:04 PM I have personally reviewed this study. Cultures: Microbiology Results Procedure Component Value Units Date/Time Body fluid culture includes gram stain [[id number]] Collected: 02/28/25 1325 Specimen: Sterile Body Fluid from Abdomen Updated: 03/05/25 0834 CULTURE RESULTS NO GROWTH 5 DAYS GRAM STAIN White Blood Cells Present No organisms seen On Concentrated Smear Medications: amLODIPine, 10 mg, oral, Daily folic acid, 1 mg, oral, Daily pantoprazole, 40 mg, oral, QAM AC sodium chloride, 3 mL, intravenous, Q12H JOSE [COMPLETED] sodium,potassium,mag sulfates, 177 mL, oral, Once AND sodium,potassium,mag sulfates, 177 mL, oral, Once Thank you for allowing us to participate in the care of this patient. Please call with questions. - NUVIA FLANNERY APRN-DUYEN 03/07/25 10:20 AM Nuvia Flannery APRN-DUYEN 03/06/252029 ELLIOTT Rendon 03/07/25 1329 * Asim Arteaga MD - 03/07/2025 6:30 AM EDT Jr. Hill, Alex Stewart., Jr. Rebecca, Alex Duncan., Mat Benavides M.D., Dheeraj Hayes M.D., Geremias Zapata M.D., Francia Gonzalez M.D., Geremias Cristobal M.D., Shanae Saunders M.D. Hospital day: 10 Chief Complaint: Right hydronephrosis Subjective: Patient awake and alert. Urology had seen previously this admission for right-sided renal mass which was to be worked up as an outpatient. She developed increase in her creatinine yesterday to 1.22 above baseline of less than 1. She was seen by Nephrology and CT abdomen and pelvis was performed. She now has right-sided hydronephrosis likely from extrinsic compression from her pelvic mass. She denies any right flank or back pain. Camara catheter is in place and draining well. Weight: 80.5 kg (177 lb 7.5 oz) Patient Vitals for the past 24 hrs: BP Temp Temp src Pulse Resp SpO2 Weight 03/07/25 0427 143/69 36.3 ??C (97.4 ??F) Oral 92 18 91 % 80.5 kg (177 lb 7.5 oz) 03/07/25 0007 96/71 36.3 ??C (97.3 ??F) Oral 90 18 92 % -- 03/06/25 2009 137/69 36.4 ??C (97.6 ??F) Oral 90 18 91 % -- 03/06/25 1537 151/69 36.3 ??C (97.4 ??F) Oral 89 16 95 % -- 03/06/25 1232 -- -- -- -- -- -- 77.8 kg (171 lb 8.3 oz) 03/06/25 1139 163/77 36.3 ??C (97.3 ??F) Oral 90 16 95 % -- Intake/Output Summary (Last 24 hours) at 03/07/2025 0732 Last data filed at 03/07/2025 0600 Gross per 24 hour Intake -- Output 335 ml Net -335 ml Results from last 7 days Lab Units 03/07/25 0626 03/06/25 0536 03/05/25 0403 POTASSIUM mmol/L 3.7 4.2 4.0 CHLORIDE mmol/L 103 104 106 CO2 mmol/L 22 18* 17* BUN mg/dL 35* 33* 23 CREATININE mg/dL 1.16* 1.22* 0.95 GLUCOSE mg/dL 151* 105* 123* CALCIUM mg/dL 8.3* 9.2 9.2 Results from last 7 days Lab Units 03/07/25 0626 03/06/25 1401 03/06/25 0536 03/05/25 0403 WBC x10E9/L 17.9* -- 15.4* 16.0* HEMOGLOBIN g/dL 11.0* 11.2* 11.2* 10.8* HEMATOCRIT % 35.3 -- 35.8 34.7* PLATELETS X10E9/L 341 366 358 391 Lab Results Component Value Date SPECIFICGRA 1.023 03/06/2025 LEUKOCYTE Small (A) 03/06/2025 GLU 151 (H) 03/07/2025 UROBILINOGEN <1.1 eu/dL 03/06/2025 Additional Lab/culture results: Physical Exam: General: No acute distress CV: Regular rate and rhythm Respiratory: Nonlabored Abdomen: Round, firm. Nontender, nondistended. No CVA or flank tenderness : Camara catheter in place draining clear yellow urine Interval Imaging Findings: CT abdomen and pelvis FINDINGS: Lack of intravenous contrast limits evaluation of the viscera and vessels. LOWER THORAX: Indeterminate bilateral lung base nodules. HEPATOBILIARY: No focal aggressive appearing hepatic lesions. No biliary ductal dilatation. Cholelithiasis. SPLEEN: Atrophic. PANCREAS: Grossly normal for technique. ADRENALS: No exophytic adrenal nodules. KIDNEYS/URETERS: Redemonstrated 2.2 cm right renal mass lesion. No obstructive renal calculus. No collecting system dilatation. Bladder: Underdistended, limiting evaluation. PELVIC ORGANS: Similar appearance of a 20 cm cystic pelvic lesion, reportedly rectal origin adenocarcinoma. GI TRACT: Colonic dilatation with transition at the sigmoid junction. LYMPH NODES: 1.1 cm mesorectal node versus pelvic wall deposit. VESSELS: No abdominal aortic aneurysm. BONES AND SOFT TISSUES: Few sclerotic pelvic lesions. PERITONEUM/RETROPERITONEUM: Small volume free fluid. Multiple pelvic wall deposits including (series 2) -Image 56, 2.7 x 2.0 cm, left pelvic sidewall, -Image 48, 1.3 cm, left anterior peritoneum -Image 28, 1.4 x 1.0 cm, left anterior peritoneum IMPRESSION: * Colonic dilatation with transition at the sigmoid junction. Concern for obstruction from the known large rectal mass vs multicentric colorectal carcinoma. Postprocedural ileus or colonic pseudoobstruction could appear similarly in the appropriate clinical setting. * Similar appearance of a 20 cm cystic pelvic lesion, recently characterized as rectal adenocarcinoma. * Peritoneal carcinomatosis. * Indeterminate bilateral lung base pulmonary nodules, presumed metastatic. * Few sclerotic pelvic lesions may reflect additional osseous metastases. * Mild right hydroureteronephrosis, likely secondary to pelvic mass effect on the ureter. * Redemonstrated 2.2 cm right interpolar renal mass lesion concerning for RCC. Impression: 69-year-old female with pelvic mass, right hydronephrosis likely from extrinsic compression 2.2 cm right interpolar renal mass concerning for renal cell carcinoma UA on 03/06/25 concerning for UTI Labs: - 03/07/25: Cr 1.16 W 17.9, UA +blood +LE, UC pend Plan: Continue to trend creatinine Obtain urine culture, recommend to treat empirically until culture results are back Consider percutaneous nephrostomy placement if kidney function worsens or patient develops symptoms(flank pain, fever, etc.) Will discuss with the attending, further recommendations to follow Asim Arteaga MD PGY2 Urology Resident 03/07/25 Cosigned by Geremias Zapata MD at 03/07/2025 6:08 PM EDT Associated attestation - Geremias Zapata MD - 03/07/2025 6:08 PM EDT Attending Attestation: I saw the patient. I performed the critical/fuentes portions of the service. I was directly involved inthe management and treatment plan of the patient. I reviewed the resident's note. Additional Notes/Findings: Cr is better today. [place] not that impressive. Getting ex lap tonight with colostomy. No urology intervention needed * Francia Cantu MD - 03/06/2025 6:14 PM EDT Images from the original note were not included. Jr. Hill, Alex Stewart., Jr. Rebecca, Colt Duncan, Mat Benavides M.D., Dheeraj Hayes M.D., Geremias Zapata M.D., Francia Gonzalez M.D., Geremias Cristobal M.D., Shanae Saunders M.D. Hospital day: 9 Chief Complaint: Right hydronephrosis Subjective: Patient awake and alert. Urology had seen previously this admission for right-sided renal mass which was to be worked up as an outpatient. She developed increase in her creatinine yesterday to 1.22 above baseline of less than 1. She was seen by Nephrology and CT abdomen and pelvis was performed. She now has right-sided hydronephrosis likely from extrinsic compression from her pelvic mass. She denies any right flank or back pain. Camara catheter is in place and draining well. Weight: 77.8 kg (171 lb 8.3 oz) Patient Vitals for the past 24 hrs: BP Temp Temp src Pulse Resp SpO2 Weight 03/06/25 1537 151/69 36.3 ??C (97.4 ??F) Oral 89 16 95 % -- 03/06/25 1232 -- -- -- -- -- -- 77.8 kg (171 lb 8.3 oz) 03/06/25 1139 163/77 36.3 ??C (97.3 ??F) Oral 90 16 95 % -- 03/06/25 0726 161/76 36.5 ??C (97.7 ??F) Oral 82 16 93 % -- 03/06/25 0346 153/72 -- -- -- -- (!) 89 % -- 03/06/25344 -- 36.3 ??C (97.4 ??F) Oral 89 18 90 % -- 03/06/25 0220 -- -- -- -- -- -- 86.1 kg (189 lb 13.1 oz) 03/05/25 2337 152/73 36.4 ??C (97.5 ??F) Oral 99 16 94 % -- 03/05/25 1944 140/71 36.4 ??C (97.6 ??F) Oral 101 18 93 % -- Intake/Output Summary (Last 24 hours) at 03/06/20251813 Last data filed at 03/06/2025 1245 Gross per 24 hour Intake -- Output 35 ml Net -35 ml Results from last 7 days Lab Units 03/06/25 0536 03/05/25 04003/04/25211103/04/25 0716 POTASSIUM mmol/L 4.2 4.0 4.1 3.6 CHLORIDE mmol/L 104 106 -- 105 CO2 mmol/L 18* 17* -- 18* BUN mg/dL 33* 23 -- 18 CREATININE mg/dL 1.22* 0.95 -- 0.89 GLUCOSE mg/dL 105* 123* -- 98 CALCIUM mg/dL 9.2 9.2 -- 8.6 Results from last 7 days Lab Units 03/06/25 1401 03/06/25 0536 03/05/25 04003/04/25 0716 WBC x10E9/L -- 15.4* 16.0* 16.5* HEMOGLOBIN g/dL 11.2* 11.2* 10.8* 10.7* HEMATOCRIT % -- 35.8 34.7* 34.1* PLATELETS X10E9/L 366 358 391 355 Lab Results Component Value Date SPECIFICGRA 1.023 03/06/2025 LEUKOCYTE Small (A) 03/06/2025 GLU 105 (H) 03/06/2025 UROBILINOGEN <1.1 eu/dL 03/06/2025 Additional Lab/culture results: Physical Exam: General: No acute distress CV: Regular rate and rhythm Respiratory: Nonlabored Abdomen: Round, firm. Nontender, nondistended. No CVA or flank tenderness : Camara catheter in place draining clear yellow urine Interval Imaging Findings: CT abdomen and pelvis FINDINGS: Lack of intravenous contrast limits evaluation of the viscera and vessels. LOWER THORAX: Indeterminate bilateral lung base nodules. HEPATOBILIARY: No focal aggressive appearing hepatic lesions. No biliary ductal dilatation. Cholelithiasis. SPLEEN: Atrophic. PANCREAS: Grossly normal for technique. ADRENALS: No exophytic adrenal nodules. KIDNEYS/URETERS: Redemonstrated 2.2 cm right renal mass lesion. No obstructive renal calculus. No collecting system dilatation. Bladder: Underdistended, limiting evaluation. PELVIC ORGANS: Similar appearance of a 20 cm cystic pelvic lesion, reportedly rectal origin adenocarcinoma. GI TRACT: Colonic dilatation with transition at the sigmoid junction. LYMPH NODES: 1.1 cm mesorectal node versus pelvic wall deposit. VESSELS: No abdominal aortic aneurysm. BONES AND SOFT TISSUES: Few sclerotic pelvic lesions. PERITONEUM/RETROPERITONEUM: Small volume free fluid. Multiple pelvic wall deposits including (series 2) -Image 56, 2.7 x 2.0 cm, left pelvic sidewall, -Image 48, 1.3 cm, left anterior peritoneum -Image 28, 1.4 x 1.0 cm, left anterior peritoneum IMPRESSION: * Colonic dilatation with transition at the sigmoid junction. Concern for obstruction from the known large rectal mass vs multicentric colorectal carcinoma. Postprocedural ileus or colonic pseudoobstruction could appear similarly in the appropriate clinical setting. * Similar appearance of a 20 cm cystic pelvic lesion, recently characterized as rectal adenocarcinoma. * Peritoneal carcinomatosis. * Indeterminate bilateral lung base pulmonary nodules, presumed metastatic. * Few sclerotic pelvic lesions may reflect additional osseous metastases. * Mild right hydroureteronephrosis, likely secondary to pelvic mass effect on the ureter. * Redemonstrated 2.2 cm right interpolar renal mass lesion concerning for RCC. Impression: 69-year-old female with pelvic mass, right hydronephrosis likely from extrinsic compression 2.2 cm right interpolar renal mass concerning for renal cell carcinoma Plan: Will trend creatinine Consider stent placement if kidney function worsening or patient develops flank pain, fever, etc. Will make NPO p MN pending am labs Patient seen with Dr. Gonzalez and she agrees OK CHAU 6:14 PM 03/06/2025 I, Francia Gonzalez MD, personally performed the face to face diagnostic evaluation on this patient. I have reviewed the HIPOLITO's History, Exam, and MDM and agree with the assessment and plan as written. Will follow creatinine closely. If deteriorates, will consider stent placement. * Ernie Elizondo, SAD[employer]SISTANT DIRECTOR OF [employer] - 03/06/2025 2:39 PM EDT Images from the original note were not included. [facility] Hematology and Oncology - Daily Progress Note 03/06/2025, 2:40 PM Impression/Plan: Metastatic Colorectal Cancer -Initially favoring ovarian primary given clinical pattern, but now with pathology positive for colorectal primary -Initial CT a/p showed large partially solid and partially cystic lesion in the right adnexa measuring 16 cm x 12 cm x 11 cm + lower anterior abdominal soft tissue nodules + 2.5 cm solid R renal lesion + diffuse intraperitoneal fluid -CTA chest revealed numerous pulmonary nodules -CA-289=[id number], MV3=592, CEA=24.6, CA 19-9 WNL -TVUS noted an 18.2 cm cystic and solid lesion in the pelvis with ascites and peritoneal nodularity -S/p IR performed paracentesis and biopsy of soft tissue nodules 02/28 -Ascites fluid non-diagnostic -Abdominal soft tissue biopsy pathology positive for mucinous adenocarcinoma consistent with colorectal origin -Now with CT findings c/w malignant bowel obstruction (see repeat CT a/p 03/06). Will need surgical evaluation and correction of obstruction prior to being able to offer her systemic therapy -Palliative medicine consult for assistance with pain -She will follow up with Dr. Romero after discharge for further management Malignant Bowel Obstruction -Repeat CT a/p 03/06 shows Colonic dilatation with transition at the sigmoid junction. Concern for obstruction from the known large rectal mass vs multicentric colorectal carcinoma + Similar appearanceof a 20 cm cystic pelvic lesion, recently characterized as rectal adenocarcinoma + Peritoneal carcin omatosis -General surgery consulted Renal Mass, Hydroureteronephrosis, TASHA, hyperuricemia -CT imaging shows 2.5 cm R interpolar renal mass concerning for RCC + Mild right hydroureteronephrosis, likely secondary to pelvic mass effect on the ureter -Cr=1.22(0.95) -Uric acid=8.0 -Urology, nephrology following PE/DVT -Likely provoked by metastatic malignancy -CTA shows Moderate right sided pulmonary emboli without evidence of right heart strain -Dopplers revealing acute R femoropopliteal, deep tibioperoneal, and deep calf muscle DVT + L deep calf muscle DVT -On heparin gtt, likely transition to DOAC prior to discharge Anemia -Stable/Improved. Multifactorial due to severe B12 deficiency, Iron deficiency anemia in setting ofvaginal bleeding d/t #1, acute infection, metastatic GI malignancy, renal insufficiency -Hgb=11.2(11.2, 10.8, 10.7, 9.6, 8.9) microcytic -S/p IM B12 & IV iron -Start folic acid supplements -No hemolysis -EGD/colonoscopy were planned, but not completed as patient could not tolerate bowel prep, likely due to bowel obstruction as discussed above -Transfuse for hgb<7 -Have arranged for follow up with Dr. Romero UTI -On IV antibiotics -As per other services Continue management of other medical problems as per appropriate services. Patient discussed with Dr. Stone Interval History: Patient seen and examined at bedside. She looks and feels more worn out. Her abdominal distention is worse and her discomfort has worsened with it. Discussed pathology findings and CT findings. Awaiting surgical evaluation. Maintained on room air without distress, VSS, afebrile. Physical Examination : Temp: [36.3 ??C (97.3 ??F)-36.6 ??C (97.8 ??F)] 36.3 ??C (97.3 ??F) Pulse: [82-101] 90 Resp: [16-18] 16 BP: (140-163)/(65-77) 163/77 SpO2: [89 %-95 %] 95 % O2 Device: None (Room air) O2 Flow Rate (L/min): [0 L/min] 0 L/min Temperature Range: Temp: 36.3 ??C (97.3 ??F) Temp Av.4 ??C (97.6 ??F) Min: 36.3 ??C (97.3 ??F)Max: 36.6 ??C (97.8 ??F) Weight change: 0.2 kg (7.1 oz) Physical Exam Vitals and nursing note reviewed. Constitutional: General: She is not in acute distress. Appearance: Normal appearance. She is normal weight. She is not ill-appearing or toxic-appearing. HENT: Head: Normocephalic and atraumatic. Right Ear: External ear normal. Left Ear: External ear normal. Nose: Nose normal. Mouth/Throat: Mouth: Mucous membranes are moist. Pharynx: Oropharynx is clear. Eyes: General: No scleral icterus. Extraocular Movements: Extraocular movements intact. Pupils: Pupils are equal, round Cardiovascular: Rate and Rhythm: Normal rate and regular rhythm. Pulmonary: Effort: Pulmonary effort is normal. No respiratory distress. Abdominal: General: There is distension. Tenderness: There is abdominal tenderness. There is guarding. Musculoskeletal: General: Normal range of motion. Cervical back: Normal range of motion and neck supple. Right lower leg: No edema. Left lower leg: No edema. Skin: General: Skin is warm and dry. Coloration: Skin is not jaundiced. Findings: No bruising or lesion. Neurological: General: No focal deficit present. Mental Status: She is alert and oriented to person, place, and time. Mental status is at baseline. Cranial Nerves: No cranial nerve deficit. Motor: No weakness. Gait: Gait normal. Psychiatric: Mood and Affect: dysphoric Behavior: Behavior normal. Thought Content: Thought content normal. Judgment: Judgment normal. Laboratory data: Results from last 7 days Lab Units 03/06/25 1401 03/06/25 0536 03/05/25 0403 03/04/25 0716 WBC x10E9/L -- 15.4* 16.0* 16.5* HEMOGLOBIN g/dL 11.2* 11.2* 10.8* 10.7* HEMATOCRIT % -- 35.8 34.7* 34.1* PLATELETS X10E9/L 366 358 391 355 MCV fL -- 74* 72* 72* Results from last 7 days Lab Units 03/06/25 0536 03/05/25 0403 03/04/25 2112 03/04/25 0716 SODIUM mmol/L 136 138 -- 138 POTASSIUM mmol/L 4.2 4.0 4.1 3.6 CHLORIDE mmol/L 104 106 -- 105 CO2 mmol/L 18* 17* -- 18* BUN mg/dL 33* 23 -- 18 CREATININE mg/dL 1.22* 0.95 -- 0.89 CALCIUM mg/dL 9.2 9.2 -- 8.6 GLUCOSE mg/dL 105* 123* -- 98 MAGNESIUM mg/dL 2.6 2.4 -- 2.4 VITAMIN B12: Lab Results Component Value Date [id number] 110 (L) 02/26/2025 FOLATE: Lab Results Component Value Date FOLATE 3.3 (L) 02/26/2025 IRON: Lab Results Component Value Date IRON 12 (L) 02/26/2025 TIBC 321 02/26/2025 FERRITIN 78 02/26/2025 Medications: [START ON 03/07/2025] amLODIPine, 10 mg, oral, Daily folic acid, 1 mg, oral, Daily pantoprazole, 40 mg, oral, QAM AC sodium chloride, 3 mL, intravenous, Q12H JOSE [COMPLETED] sodium,potassium,mag sulfates, 177 mL, oral, Once AND sodium,potassium,mag sulfates, 177 mL, oral, Once ELLIOTT Christina 03/06/25 1510 ELLIOTT Christina 03/06/25 1511 Cosigned by Domenic Stone MD at 03/06/2025 3:14 PM EDT * Nuvia Flannery, ELLIOTT - 03/06/2025 12:23 PM EDT Images from the original note were not included. Division of Infectious Diseases Progress note Academic Team Please contact us via [employer]. After hours, call [phone] Patient name: Caren Suarez Patient Today's Date and Time: 03/06/2025, 12:23 PM Admission Date: 02/25/2025 Primary Care Physician: Riya Diego MD Impression and Recommendations: Leukocytosis Bacterial Peritonitis Ovarian Cystic Lesion, likely malignancy CT a/p demonstrated large partially solid and partially cystic lesion in the R adnexa measuring 16 x 12 x 11 cm and lower anterior abdominal soft tissue nodules, 2.5 cm solid R renal lesion and diffuse intraperitoneal fluid S/P paracentesis 02/28/2025 - nucleated cells are elevated at 1900 with neutrophil predominance (60%) - this is consistent with bacterial peritonitis Peritoneal fluid culture is negative to date Abdominal soft tissue mass 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 GI signed off Documented allergy to PCN Completed course of abx Will monitor off antibiotics Bowel obstruction CT today showed colonic dilatation with transition at the sigmoid junction. Concern for obstructionfrom the known large rectal mass vs multicentric colorectal carcinoma General surgery has been consulted TASHA Nephrology consulted Right hydronephrosis Likely secondary to pelvic mass effect on ureter Urology following Acute PE, with R heart strain Numerous pulmonary nodules likely metastasis Subjective Interval History: Patient seen and examined at bedside. Awake and alert. No abdominal pain. Ct today noted. Discussedwith nursing at bedside. Camara placed. Decreased urine output. +high PVR. No vomiting today. No fever, chills or sweats. No shortness of breath or cough. No nausea or diarrhea Objective Physical Examination : BP 163/77 Comment: rn notified Pulse 90 Temp 36.3 ??C (97.3 ??F) (Oral) Resp 16 Ht 157.5 cm(5' 2.01 ) Wt 86.1 kg (189 lb 13.1 oz) SpO2 95% BMI 34.71 kg/m?? Temperature Range: Temp: 36.3 ??C (97.3 ??F) Temp Av.4 ??C (97.6 ??F) Min: 36.3 ??C (97.3 ??F)Max: 36.6 ??C (97.8 ??F) General Appearance: Awake, alert, and in no apparent distress Eyes: Sclera anicteric; conjunctivae pink ENT: Oropharynx clear, without erythema, exudate, or thrush. Neck: Supple, without lymphadenopathy. Pulmonary/Chest: Clear to auscultation, without wheezes, rales, or rhonchi Cardiovascular: Regular rate and rhythm without murmurs, rubs, or gallops. Abdomen: distended. Soft. nontender Extremities: No cyanosis, clubbing, edema, or effusions. Neurologic: Bulk and tone are normal. No atrophy is noted. Skin: No rash or lesions. Laboratory data: I have independently reviewed the following labs: Results from last 7 days Lab Units 03/06/25 0536 03/05/25 04003/04/25 0716 WBC x10E9/L 15.4* 16.0* 16.5* HEMOGLOBIN g/dL 11.2* 10.8* 10.7* HEMATOCRIT % 35.8 34.7* 34.1* MCV fL 74* 72* 72* PLATELETS X10E9/L 358 391 355 Results from last 7 days Lab Units 03/06/2536 03/05/2540203/04/25211103/04/25 0716 SODIUM mmol/L 136 138 -- 138 POTASSIUM mmol/L 4.2 4.0 4.1 3.6 CHLORIDE mmol/L 104 106 -- 105 CO2 mmol/L 18* 17* -- 18* BUN mg/dL 33* 23 -- 18 CREATININE mg/dL 1.22* 0.95 -- 0.89 CALCIUM mg/dL 9.2 9.2 -- 8.6 Invalid input(s): BILIRUBINU , BILIRUBINNU Echo complete W/O contrast Result Date: 02/26/2025 Left Ventricle: Left ventricle is small. Systolic function is normal with an ejection fraction of 60-65%. No segmental wall motion abnormalities. Grade I diastolic dysfunction (impaired relaxation) is present. Lateral E' is 11.70 cm/s. Medial E' is 7.94 cm/s. Right Ventricle: Right ventricular sizeappears normal. The right ventricular basal diameter is 22.0 mm. Systolic function is normal. Aortic Valve: There is trace to mild regurgitation. There is no evidence of aortic valve stenosis. Imaging Studies: CT abdomen and pelvis without contrast [[id number]] Collected: 03/06/25 1145 Order Status: Completed Updated: 03/06/25 1205 Narrative: CT ABDOMEN AND PELVIS WO CONT CLINICAL INDICATION: Hydronephrosis; OBS uropathy, Abd distension . COMPARISON STUDY: 02/24/2025. TECHNIQUE: CT scan of the abdomen and pelvis performed without IV or PO contrast. Coronal and sagittal reformats generated and reviewed. FINDINGS: Lack of intravenous contrast limits evaluation of the viscera and vessels. LOWER THORAX: Indeterminate bilateral lung base nodules. HEPATOBILIARY: No focal aggressive appearing hepatic lesions. No biliary ductal dilatation. Cholelithiasis. SPLEEN: Atrophic. PANCREAS: Grossly normal for technique. ADRENALS: No exophytic adrenal nodules. KIDNEYS/URETERS: Redemonstrated 2.2 cm right renal mass lesion. No obstructive renal calculus. No collecting system dilatation. Bladder: Underdistended, limiting evaluation. PELVIC ORGANS: Similar appearance of a 20 cm cystic pelvic lesion, reportedly rectal origin adenocarcinoma. GI TRACT: Colonic dilatation with transition at the sigmoid junction. LYMPH NODES: 1.1 cm mesorectal node versus pelvic wall deposit. VESSELS: No abdominal aortic aneurysm. BONES AND SOFT TISSUES: Few sclerotic pelvic lesions. PERITONEUM/RETROPERITONEUM: Small volume free fluid. Multiple pelvic wall deposits including (series 2) -Image 56, 2.7 x 2.0 cm, left pelvic sidewall, -Image 48, 1.3 cm, left anterior peritoneum -Image 28, 1.4 x 1.0 cm, left anterior peritoneum IMPRESSION: * Colonic dilatation with transition at the sigmoid junction. Concern for obstruction from the known large rectal mass vs multicentric colorectal carcinoma. Postprocedural ileus or colonic pseudoobstruction could appear similarly in the appropriate clinical setting. * Similar appearance of a 20 cm cystic pelvic lesion, recently characterized as rectal adenocarcinoma. * Peritoneal carcinomatosis. * Indeterminate bilateral lung base pulmonary nodules, presumed metastatic. * Few sclerotic pelvic lesions may reflect additional osseous metastases. * Mild right hydroureteronephrosis, likely secondary to pelvic mass effect on the ureter. * Redemonstrated 2.2 cm right interpolar renal mass lesion concerning for RCC. All CT scans at this facility use dose modulation, iterative reconstruction, and/or weight based dosing when appropriate to reduce radiation dose to as low as reasonably achievable. Clinically significant results were instructed to call for clinical service on 03/06/2025 at 12:04 PM. This will be documented in [employer] results tracking once complete. Finalized by Amari Mcgregor on 03/06/2025 12:04 PM I have personally reviewed this study. Cultures: Microbiology Results Procedure Component Value Units Date/Time Body fluid culture includes gram stain [[id number]] Collected: 02/28/25 1325 Specimen: Sterile Body Fluid from Abdomen Updated: 03/05/25 0834 CULTURE RESULTS NO GROWTH 5 DAYS GRAM STAIN White Blood Cells Present No organisms seen On Concentrated Smear Medications: [START ON 03/07/2025] amLODIPine, 10 mg, oral, Daily apixaban, 10 mg, oral, BID FOLLOWED BY [START ON 03/12/2025] apixaban, 5 mg, oral, BID folic acid, 1 mg, oral, Daily pantoprazole, 40 mg, oral, QAM AC sodium chloride, 3 mL, intravenous, Q12H JOSE [COMPLETED] sodium,potassium,mag sulfates, 177 mL, oral, Once AND sodium,potassium,mag sulfates, 177 mL, oral, Once Thank you for allowing us to participate in the care of this patient. Please call with questions. - ELLIOTT RENDON 03/06/25 12:23 PM ELLIOTT Rendon 03/06/252029 * Dario Burris MD - 03/06/2025 10:42 AM EDT Images from the original note were not included. Progress note [facility] Adult Hospitalist Name: Caren Suarez Acct: [id number] Room: 59/ Admit Date: 02/25/2025 5:24 PM PCP: Riya Diego MD Assesment/Plan Admit to Med surg unit Cardiac Monitoring Acute PE/DVT CTA of chest reported moderate right-sided pulmonary emboli without evidence of heart strain Continue heparin infusion. Echocardiogram showed normal ejection fraction, no evidence of right heart strain Pulmonary consulted Numerous pulmonary nodules likely metastasis Consult pulmonary General oncology consult Status post soft tissue biopsy 02/28 Await pathology from tissue biopsy Pulmonary consult Newly diagnosed Ovarian mass Gynecology/Oncology was consulted Transvaginal ultrasound: 18.2 x 16.3 x 11.2 cm, multiloculated, cystic and solid lesion in the pelvis Thin prep negative for malignancy, negative high-risk HPV Status post paracentesis and soft tissue nodule biopsy today 02/28/2025 with removal of 1850 mL of ludivina ascites fluid OBGYN recommended GI evaluation giving elevated tumor markers, patient unable to tolerate prep. plan for EGD and colonoscopy outpatient Patient is currently on Rocephin and Flagyl per ID. CTA/P:Colonic dilatation with transition at the sigmoid junction. Concern for obstruction from the known large rectal mass vs multicentric colorectal carcinoma. Postprocedural ileus or colonic pseudoobstruction could appear similarly in the appropriate clinical setting.Similar appearance of a 20 cm cystic pelvic lesion, recently characterized as rectal adenocarcinoma. Peritoneal carcinomatosis. Indeterminate bilateral lung base pulmonary nodules, presumed metastatic. Few sclerotic pelvic lesions may reflect additional osseous metastases. Mild right hydroureteronephrosis, likely secondary to pelvic mass effect on the ureter.Redemonstrated 2.2 cm right interpolar renal mass lesion concerning for RCC. Consult general surgery Urinary tract infection/bacterial peritonitis S/P paracentesis 02/28/2025 - nucleated cells are elevated at 1900 with neutrophil predominance (60%) - this is consistent with bacterial peritonitis . IR consult for repeat paracentesis Peritoneal fluid culture is pending Urinalysis came back positive for UTI Urine culture came back negative Patient is continued on IV antibiotics IV Rocephin and Flagyl Gastroenterology is following for EGD colonoscopy outpatient History of tobacco abuse Quit 12 years ago, with a 42 year history of smoking Outpatient PFT Poor oral intake Consult dietitian Hypertensive heart disease Monitor blood pressure closely Start Norvasc, dosage increased Hydralazine PRN Acute Renal insufficiency Monitor renal function Nephrology following Acute urinary retention Monitor urinary output Insert Camara catheter DVT and GI prophylaxis Continue to monitor/telemetry/CBC with diff daily/BMP daily Continue medications as below Scheduled Medications: [START ON 03/07/2025] amLODIPine, 10 mg, oral, Daily folic acid, 1 mg, oral, Daily pantoprazole, 40 mg, oral, QAM AC sodium chloride, 3 mL, intravenous, Q12H JOSE [COMPLETED] sodium,potassium,mag sulfates, 177 mL, oral, Once AND sodium,potassium,mag sulfates, 177 mL, oral, Once Infusions: dextrose 5 % in water, 100 mL/hr heparin, 300-3,500 Units/hr sodium chloride 0.9 %, 20 mL/hr PRN medications acetaminophen, 650 mg, Q6H PRN dextrose, 15 g, PRN dextrose 5 % in water, 100 mL/hr, Continuous PRN dextrose 50 % in water (D50W), 25 mL, PRN glucagon (human recombinant), 1 mg, PRN heparin (porcine), 5,000 Units, PRN hydrALAZINE, 10 mg, Q6H PRN magnesium sulfate, 2,000 mg, PRN magnesium sulfate, 4,000 mg, PRN ondansetron, 4 mg, Q4H PRN potassium chloride, 30-50 mEq, PRN Or potassium chloride, 30-50 mEq, PRN Or potassium chloride IV (Adult), 10 mEq, PRN sennosides-docusate sodium, 1 tablet, Q12H PRN sodium chloride, 10 mL, PRN sodium chloride, 3 mL, PRN sodium chloride, 25 mL, PRN sodium chloride 0.9 %, 20 mL/hr, Continuous PRN Code Status: Full Code Chief Complaint: Shortness of breath Subjective: Patient seen and examined at bedside. Resting on room air. Continued on IV antibiotics. Elevated blood pressure Afebrile Pt. Denies any CP, SOB, palpitation, JARRELL, dizziness, chills, cough, cold, changes in urination, BM or skin changes or any pain. History of Present Illness: Caren Suarez is a 69 y.o. female who presents with No chief complaint on file. Caren Suarez is an 69 y.o. White or female. came to the hospital with Abnormal test results. Patient states that she has been experiencing cold-like symptoms with to thepoint where she was having hard time breathing. She went to her PCP who placed her on steroids withno improvement. She then was on antibiotic therapy with still no improvement. 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 She also underwent venous duplex of bilateral lower extremities that reported rightacute DVT and left deep calf muscle vein DVT. she was Was then sent to the ER at [place] to be further evaluated and treated. She was transferred to [facility] for further evaluation and treatment. No significant past medical history of coronary artery disease, COPD diabetes or history of stroke.Patient does have a history of tobacco abuse quit 12 years ago Patient admitted for further management. I have personally reviewed the past medical history, past surgical history, medications, social history, and family history, and summarized in the note. Review of Systems: All 12 systems are reviewed and negative otherwise mentioned in HPI. Past Medical History: Past Problem List: Patient Active Problem List Diagnosis Date Noted DVT (deep venous thrombosis) ([facility]) 02/25/2025 Colon cancer screening 02/24/2025 Hematochezia 02/24/2025 Past Medical History: Diagnosis Date Deep vein thrombosis ([facility]) Past Surgical History: No past surgical history on file. Medications Prior to Admission: Prior to Admission medications Not on File Allergies: Penicillin Social History: Tobacco: reports that she has quit smoking. Her smoking use included cigarettes. She has never usedsmokeless tobacco. Alcohol: reports no history of alcohol use. Drug Use: reports no history of drug use. Family History: Family History Problem Relation Age of Onset Breast cancer Neg Hx Physical Exam: Vitals: BP 163/77 Comment: rn notified Pulse 90 Temp 36.3 ??C (97.3 ??F) (Oral) Resp 16 Ht 157.5 cm (5' 2.01 ) Wt 77.8 kg (171 lb 8.3 oz) SpO2 95% BMI 31.36 kg/m?? Temp (24hrs), Av.4 ??C (97.6 ??F), Min:36.3 ??C (97.3 ??F), Max:36.6 ??C (97.8 ??F) Weight: Wt Readings from Last 3 Encounters: 03/06/25 77.8 kg (171 lb 8.3 oz) 02/24/25 74.4 kg (164 lb) General appearance - alert, well appearing, and in no acute distress Mental status - oriented to person, place, and time with normal affect Head - normocephalic and atraumatic Eyes - pupils equal and reactive, extraocular eye movements intact, conjunctiva clear Ears - hearing appears to be intact Nose - no drainage noted Mouth - mucous membranes moist. Neck - supple, no carotid bruits, positive cervical lymphadenopathy Chest - clear to auscultation, normal effort Heart - normal rate, regular rhythm, no murmur Abdomen - soft, nontender, nondistended, bowel sounds present all four quadrants, no masses, hepatomegaly or splenomegaly Neurological - normal speech, no focal findings or movement disorder noted, cranial nerves II through XII grossly intact Extremities - peripheral pulses palpable, no pedal edema or calf pain with palpation Skin - no gross lesions, rashes, or induration noted Data: I/O (24Hr): Intake/Output Summary (Last 24 hours) at 03/06/2025 1352 Last data filed at 03/06/2025 1245 Gross per 24 hour Intake -- Output 35 ml Net -35 ml Labs and Diagnostic studies: @LABDAILY3@ No results found for: HGBA1C Results from last 7 days Lab Units 03/06/25 0536 BNP pg/mL 34 Results from last 7 days Lab Units 03/06/25 0536 CPK ISOENZYMES U/L 18* Microbiology Results Procedure Component Value Units Date/Time Body fluid culture includes gram stain [[id number]] Collected: 02/28/25 1325 Specimen: Sterile Body Fluid from Abdomen Updated: 03/05/25 0834 CULTURE RESULTS NO GROWTH 5 DAYS GRAM STAIN White Blood Cells Present No organisms seen On Concentrated Smear Echo complete W/O contrast Result Date: 02/26/2025 Left Ventricle: Left ventricle is small. Systolic function is normal with an ejection fraction of 60-65%. No segmental wall motion abnormalities. Grade I diastolic dysfunction (impaired relaxation) is present. Lateral E' is 11.70 cm/s. Medial E' is 7.94 cm/s. Right Ventricle: Right ventricular sizeappears normal. The right ventricular basal diameter is 22.0 mm. Systolic function is normal. Aortic Valve: There is trace to mild regurgitation. There is no evidence of aortic valve stenosis. CT angiogram chest Result Date: 02/25/2025 CLINICAL INFORMATION: DVT's TECHNIQUE: CT CTA CHEST CTA of the chest was obtained post intravenous administration of contrast. Post processed three- dimensional maximum intensity projection imaging was acquired and evaluated. There are moderate right-sided pulmonary emboli. No appreciable right heart strain. Right lower lobe infiltrate or atelectasis appreciated. There are bilateral pulmonary nodules appreciated most suggestive of metastasis, as previous described. Limited images of the upper abdomen again show free intraperitoneal fluid. Refer to previously dictated CT abdomen. No obvious medi astinal lymphadenopathy. Coronary arterial atherosclerotic calcification noted. Osseous structures appear grossly intact. IMPRESSION: Moderate right sided pulmonary emboli without evidence of right heart strain. Right lower lobe infiltrate or atelectasis. Numerous pulmonary nodules, likely metastasis. I personally called these findings to nurse Muhammad of the clinical service at time of dictation.All CT scans at this facility use dose modulation, iterative reconstruction, and/or weight based dosing when appropriate to reduce radiation dose to as low as reasonably achievable. Finalized by Chau Nicole MD on 02/25/2025 7:09 PM Echo/Stress: Echo complete W/O contrast Result Date: 02/26/2025 Left Ventricle: Left ventricle is small. Systolic function is normal with an ejection fraction of 60-65%. No segmental wall motion abnormalities. Grade I diastolic dysfunction (impaired relaxation) is present. Lateral E' is 11.70 cm/s. Medial E' is 7.94 cm/s. Right Ventricle: Right ventricular sizeappears normal. The right ventricular basal diameter is 22.0 mm. Systolic function is normal. Aortic Valve: There is trace to mild regurgitation. There is no evidence of aortic valve stenosis. EKG: No results found. Imaging: Ultrasound pelvic with transvaginal Result Date: 02/28/2025 Narrative: US PELVIC WITH TRANSVAGINAL HISTORY: Ovarian mass COMPARISON: CT abdomen pelvis dated 02/24/2025 TECHNIQUE: Transabdominal and transvaginal sonographic evaluation of the pelvis. Transabdominal imaging performed to evaluate for extra adnexal pelvic pathology. Transvaginal imaging performedfor better delineation of the adnexal and endometrial contents. Real time grayscale, color flow imaging, and duplex spectral Doppler waveform analysis was performed of the major arterial inflow and venous outflow structures of the pelvic mass with arterial and venous spectral waveforms obtained, documented, and reviewed in the setting of provided history. FINDINGS: Uterus: 5.3 x 3.3 x 1.6 cm Endom etrial Thickness: 0.2 cm The uterus demonstrates appropriate size and echo pattern. The endometriumis unremarkable. The ovaries are not confidently identified as individual structures. There is a 18.2 x 16.3 x 11.2 cm, multiloculated, cystic and solid lesion in the pelvis, which demonstrates consulting intern al color flow, arterial waveforms, and venous waveforms. Color score: 4. Free fluid in the pelvis with low level echoes. On comparison CT abdomen pelvis, there was peritoneal nodularity. IMPRESSION: O-RADS US 5 (high risk): 18.2 cm cystic and solid lesion in the pelvis with ascites and peritoneal nodularity. Finalized by Jason Humphrey MD on 02/28/2025 7:10 PM IR percutaneous needle biopsy abdomen retroperitoneal Result Date: 02/28/2025 Narrative: EXAM: CT-guided percutaneous core biopsy of anterior peritoneal nodule CLINICAL INDICATION: Peritoneal masses unclear etiology CONSENT: The risks, benefits, and expectations of the procedure were explained to the patient who signed a written consent. TIME OUT: Ball Protocol Time OutVerification performed. ANESTHESIA: 100 mcg of fentanyl was given for pain control 1% Lidocaine used as local anesthetic. TECHNIQUE:All CT scans at this facility use dose modulation, iterative reconstruction, and/or weight based dosing when appropriate to reduce radiation dose to as low as reasonably achievable. PROCEDURE: In the supine position, the peritoneal nodule was evaluated with CT which revealed a good window for biopsy. The overlying skin was prepped and draped in a sterile fashion and infiltrated with 1% lidocaine. Using intermittent CT guidance, a 17-gauge guiding needle was advanced into the targeted structure and a route sales representative image was obtained and saved in PACS. A [id number] core biopsy needle was then advanced through the guiding needle, and multiple 18-gauge core biopsies were obtained and submitted in formalin. Gelfoam tract embolization was performed. The needle was removed and hemostasis achieved by manual compression. Postprocedural scanning demonstratesexpected post biopsy changes and no immediate complication. A dressing was placed. The patient tolerated the procedure well. Estimated blood loss: Minimal Complications: None. IMPRESSION: Successful CT-guided core needle biopsy of peritoneal nodule. Finalized by Deena Palma MD on 02/28/2025 4:02 PM IR paracentesis diagnostic treatment with guidance Result Date: 02/28/2025 Narrative: EXAM: ULTRASOUND-GUIDED PARACENTESIS CLINICAL HISTORY: abdominal ascitis. CONSENT: The risks and benefits of the procedure were explained to the patient signed written consent. PROCEDURE/FINDINGS: All four quadrant of the abdomen were evaluated with ultrasound which showed small amount of free fluid in the abdomen . The left lower quadrant was prepped and draped in a sterile fashion and the skin infiltrated with 1% lidocaine. Real time ultrasound guidance was used during the punctureof the peritoneal cavity with an 18-gauge Yueh needle under direct ultrasound needle visualization,and an ultrasound route sales representative image was obtained and saved in PACS. The catheter was connected to vacuum bottles, and approximately 1.8 liters of ludivina fluid was removed and submitted for analysis. The needle was removed and dressing placed. No immediate complications. Estimated blood loss: Minimal IMPRESSION: Ultrasound guided paracentesis with removal of 1800 mL of ludivina fluid. Finalized by Deena Palma MD on 02/28/2025 4:00 PM Echo complete W/O contrast Result Date: 02/26/2025 Narrative: Left Ventricle: Left ventricle is small. Systolic function is normal with an ejection fraction of 60-65%. No segmental wall motion abnormalities. Grade I diastolic dysfunction (impaired relaxation) is present. Lateral E' is 11.70 cm/s. Medial E' is 7.94 cm/s. Right Ventricle: Right ventricular size appears normal. The right ventricular basal diameter is 22.0 mm. Systolic function is normal. Aortic Valve: There is trace to mild regurgitation. There is no evidence of aortic valve stenosis. CT angiogram chest Result Date: 02/25/2025 Narrative: CLINICAL INFORMATION: DVT's TECHNIQUE: CT CTA CHEST CTA of the chest was obtained post intravenous administration of contrast. Post processed three- dimensional maximum intensity projectionimaging was acquired and evaluated. There are moderate right-sided pulmonary emboli. No appreciableright heart strain. Right lower lobe infiltrate or atelectasis appreciated. There are bilateral pulmonary nodules appreciated most suggestive of metastasis, as previous described. Limited images of the upper abdomen again show free intraperitoneal fluid. Refer to previously dictated CT abdomen. No obvious mediastinal lymphadenopathy. Coronary arterial atherosclerotic calcification noted. Osseous structures appear grossly intact. IMPRESSION: Moderate right sided pulmonary emboli without evidenceof right heart strain. Right lower lobe infiltrate or atelectasis. Numerous pulmonary nodules, likely metastasis. I personally called these findings to nurse Muhammad of the clinical service at time ofdictation. All CT scans at this facility use dose modulation, iterative reconstruction, and/or weight based dosing when appropriate to reduce radiation dose to as low as reasonably achievable. Finalized by Chau Nicole MD on 02/25/2025 7:09 PM Vas venous duplex lwr bilateral Result Date: 02/24/2025 Narrative: Right: Dilated noncompressible distal femoral, popliteal, posterior tibial, peroneal anddeep calf muscle veins with hypoechoic intraluminal content and absent spectral Doppler signals. Remaining visualized deep venous segments are compressible with spontaneous phasic spectral Doppler waveforms. Superficial veins are compressible. Left: Limited contralateral duplex evaluation completed. Dilated Non-compressible deep calf muscle veins with hypoechoic intraluminal content and absent spectral Doppler signals. Common femoral, femoral, and popliteal veins are compressible without intraluminal content. Spontaneous, common femoral, femoral and popliteal spectral Doppler signals. Evaluation of superficial veins was not performed. Conclusions: RIGHT:ACUTE femoropopliteal deep vein thrombosis (DVT).ACUTE deep tibioperoneal vein thrombosis (DVT). ACUTE deep calf muscle vein thrombosis (DVT). NO EVIDENCE of superficial vein thrombosis of the lower extremity. LEFT:Limited visualization o f lower extremity venous segments.ACUTE deep calf muscle vein thrombosis (DVT). CT abdomen and pelvis with contrast Result Date: 02/24/2025 Narrative: CLINICAL INFORMATION: Localized swelling, mass and lump, lower limb, right; Generalized abdominal pain; Abdominal distension; SOB (shortness of breath); Tachycardia TECHNIQUE: CT ABDOMEN AND PELVIS W CONT CT images of the abdomen and pelvis are obtained. Intravenous contrast was administered. Images are reformatted in the sagittal and coronal planes. There are no prior exams available for comparison. There is diffuse free intraperitoneal fluid. Large partially solid and partially cystic lesion noted within the right adnexa measuring 16 cm x 12 cm x 11 cm. Ovarian carcinoma is the diagnosis of exclusion. Regions of soft tissue nodularity noted anterior lower abdomen. There are small bilateral lower lobe pulmonary nodules. Right basilar atelectasis also appreciated. Pancreas unremarkable. Adrenal symmetric. Large dependently layering gallstone. Small bowel is nondistended without evidence of obstruction. Mild thoracolumbar degenerative changes. No acute osseous abnormalities. Prominent nodes appreciated at the diya hepatis. IMPRESSION: Large partially solid partially cystic lesion within the right adnexa. Ovarian carcinoma is diagnosis of exclusion. 2.5 cm solid right renal lesion. Renal cell carcinoma is diagnosis of exclusion. Diffuse free intraperitoneal fluid. Small bilateral noncalcified lower lobe pulmonary nodules and lower anterior abdominal soft tissue nodules, likely metastasis. Prominent nodes in diya hepatis. THIS REPORT CONTAINS A SIGNIFICANT RESULT AND/OR RECOMMENDATION, WHICH REQUIRES THE ATTENTION OF THE LICENSED CAREGIVER RESPONSIBLE FOR THIS PATIENT. THEREFORE, I SPECIFICALLY DESIGNATED THIS REPORT TO BE TELEPHONED BY THE RADIOLOGY DEPARTMENT. FINDINGS WERE INSTRUCTED TO BE CALLED TO THE CLINICAL SERVICE ON 02/24/2025 AT 4:[address] scans at this facility use dose modulation, iterative reconstruction, and/or weight based dosing when appropriate to reduce radiation dose to as low as reasonably achievable. Finalized by Chau Nicole MD on 02/24/2025 4:15 PM X-ray chest 2 views Result Date: 02/19/2025 Narrative: XR CHEST 2 VWS HISTORY: Bronchitis COMPARISON: None FINDINGS: The trachea is midline. The cardiomediastinal silhouette is not enlarged. No pneumothorax or pleural effusion. Bibasilar linear airspace opacities. No focal consolidation. Multilevel degenerative changes of the thoracic spine.IMPRESSION: * Bibasilar linear airspace opacities most compatible with atelectasis. Approved by Resident Liu Apodaca MD on 02/19/2025 9:45 AM I, Dheeraj Wang MD have personally reviewed the image(s) and agree with and/or edited the report Finalized by Dheeraj Wang MD on 02/19/2025 10:56 AM Meds: Current Facility-Administered Medications: acetaminophen (TYLENOL) tablet 650 mg, 650 mg, oral, Q6H PRN, Neelima Ta STUDENT TRUCK DRIVER-ASSISTANT DIRECTOR [employer], 325 mg at 03/06/25 0922 [START ON 03/07/2025] amLODIPine (NORVASC) tablet 10 mg, 10 mg, oral, Daily, Eleni Harding APRN-ASSISTANT [employer]OR [employer] dextrose (GLUTOSE) 40 % gel 15 g, 15 g, oral, PRN, Neelima Ta STUDENT TRUCK DRIVER-ASSISTANT [employer] dextrose 5 % (D5W) infusion, 100 mL/hr, intravenous, Continuous PRN, Neelima Ta STUDENT TRUCK DRIVER-ASSISTANT [employer] dextrose 50 % in water (D50W) 50% solution 25 mL, 25 mL, intravenous, PRN, Neelima Ta APRN-DUYEN folic acid (FOLVITE) tablet 1 mg, 1 mg, oral, Daily, Tanya Kraus, SADIE-ASSISTANT [employer]OR [employer], 1 mg at 03/06/25 0858 glucagon HCL injection 1 mg, 1 mg, intramuscular, PRN, Neelima Ta APRN-DUYEN heparin (porcine) injection 5,000 Units, 5,000 Units, intravenous, PRN, Eleni Harding APRN-DUYEN heparin infusion 58276 units/500 mL in 0.45% NaCl (50 units/mL premix), 300- 3,500 Units/hr, intravenous, Continuous, ELLIOTT Finney hydrALAZINE (APRESOLINE) injection 10 mg, 10 mg, intravenous, Q6H PRN, Eleni Harding APRN-DUYEN, 10 mg at 03/04/25 1335 magnesium sulfate IVPB 2000 mg/50 mL in iso-osmotic water (40 mg/mL premix), 2,000 mg, intravenous,PRN, Neelima Ta APRN-DUYEN magnesium sulfate IVPB 4000 mg/100 mL in iso-osmotic water (40 mg/mL premix), 4,000 mg, intravenous, PRN, Neelima Ta APRN-DUYEN ondansetron (PF) (ZOFRAN) injection 4 mg, 4 mg, intravenous, Q4H PRN, Neelima Ta APRN-DUYEN, 4 mg at 03/04/25 1700 pantoprazole (PROTONIX) EC tablet 40 mg, 40 mg, oral, QAM AC, Neelima Ta APRN-DUYEN, 40 mg at 03/06/25 0533 potassium chloride (K-TAB,KLOR-CON) CR tablet 30-50 mEq, 30-50 mEq, oral, PRN, 30 mEq at 03/04/25 1534 OR potassium chloride (KAYCIEL) 20 mEq/15 mL solution 30-50 mEq, 30-50 mEq, oral, PRN ORpotassium chloride IVPB 10 mEq/100 mL in water (0.1 mEq/mL premix), 10 mEq, intravenous, PRN, Neelima Ta, STUDENT TRUCK [employer]IVER-ASSISTANT DIRECTOR OF [employer] sennosides-docusate sodium (SENOKOT-S) 8.6-50 mg 1 tablet, 1 tablet, oral, Q12H PRN, Neelima Serge Ta, STUDENT TRUCK DRIVER-ASSISTANT [employer]OR [employer] sodium chloride 0.9 % flush 10 mL, 10 mL, intravenous, PRN, Deena Branch MD, 10 mL at 02/25/25 1857 sodium chloride 0.9 % flush 3 mL, 3 mL, intravenous, PRN, Neelima R Ta, STUDENT TRUCK DRIVER-ASSISTANT [employer] sodium chloride 0.9 % flush 3 mL, 3 mL, intravenous, Q12H JOSE, Neelima R Ta, STUDENT TRUCK DRIVER-ASSISTANT [employer], 3 mL at 03/06/25 0859 sodium chloride 0.9 % flush bag, 25 mL, intravenous, PRN, Neelima R Ta, STUDENT TRUCK DRIVER-ASSISTANT [employer] sodium chloride 0.9 % infusion, 20 mL/hr, intravenous, Continuous PRN, Neelima R Keyon, STUDENT TRUCK DRIVER-ASSISTANT [employer]OR [employer] [COMPLETED] sodium,potassium,mag sulfates (SUPREP) 17.5-3.13-1.6 gram solution 177 mL, 177 mL, oral, Once, 177 mL at 03/03/25 1250 AND sodium,potassium,mag sulfates (SUPREP) 17.5-3.13-1.6 gram solution 177 mL, 177 mL, oral, Once, Adoreef Soledad Segura MD Copy sent to Dr. Riya Diego MD This note was created with the assistance of a speech-recognition program. Although the intention is to generate a document that actually reflects the content of the visit, no guarantees can be provided that every mistake has been identified and corrected by editing. Note was updated later by me after physical examination and completion of the assessment. * Fernanda Soliman MD - 03/06/2025 10:06 AM EDT Images from the original note were not included. Pulmonary Critical Care Progress Note Patient seen for the follow up of acute moderate right sided pulmonary emboli, acute DVT, right lower lobe infiltrate pulmonary nodules, previous smoker, ovarian mass, renal mass Subjective: Patient is resting comfortably in bed. EGD and colonoscopy were canceled again secondary to patientintolerance of prep. She denies chest pain, cough. She remains on heparin drip. Her shortness of breath is improved. Examination: Vitals: BP 161/76 Comment: rn notified Pulse 82 Temp 36.5 ??C (97.7 ??F) (Oral) Resp 16 Ht 157.5 cm (5' 2.01 ) Wt 86.1 kg (189 lb 13.1 oz) SpO2 93% BMI 34.71 kg/m?? General appearance: In no acute distress, alert and cooperative with exam, EOM I Neck: No JVD Lungs: Moderate air exchange, no wheezing or rhonchi Heart: regular rate and rhythm, S1, S2 normal, no gallop Abdomen:non tender, + BS, rounded, firm Extremities: no cyanosis or clubbing. No significant edema, no skin rash or petechiae LABs: Results from last 7 days Lab Units 03/06/2536 03/05/2540203/04/25 0716 WBC x10E9/L 15.4* 16.0* 16.5* HEMOGLOBIN g/dL 11.2* 10.8* 10.7* HEMATOCRIT % 35.8 34.7* 34.1* PLATELETS X10E9/L 358 391 355 Results from last 7 days Lab Units 03/06/25 0536 03/05/25 04003/04/25211103/04/25 0716 SODIUM mmol/L 136 138 -- 138 POTASSIUM mmol/L 4.2 4.0 4.1 3.6 CHLORIDE mmol/L 104 106 -- 105 CO2 mmol/L 18* 17* -- 18* BUN mg/dL 33* 23 -- 18 CREATININE mg/dL 1.22* 0.95 -- 0.89 CALCIUM mg/dL 9.2 9.2 -- 8.6 Echo complete W/O contrast 02/26/2025 EF 60-65%. Systolic function is normal. There is trace to mild regurgitation. There is no evidence of aortic valve stenosis. Radiology: CT chest 02/25/25 Impression & Recommendations: Acute right-sided pulmonary emboli/acute DVT right femoropopliteal, tibioperoneal, deep calf, left deep calf muscle Off Heparin drip Eliquis Echocardiogram with EF of 60-65%, normal right ventricular systolic function Right lower lobe infiltrate/Multiple pulmonary nodules, suspected metastasis Oncology following Infectious disease following, completed Rocephin and Flagyl Ovarian mass/renal mass Gynecologic/oncology consulted/Medical oncology consulted, input noted Recommended GI evaluation given elevated tumor markers Unable to complete EGD/colonoscopy secondary to patient intolerance to prep Infectious Disease managing antibiotics, Rocephin and Flagyl courses complete S/p paracentesis and soft tissue nodule biopsy 02/28/2025 with removal of 1850 mL of ludivina ascites fluid Peritoneal fluid culture is negative to date Surgical pathology consistent with adenocarcinoma of colorectal origin Transvaginal ultrasound: 18.2 x 16.3 x 11.2 cm, multiloculated, cystic and solid lesion in the pelvis Thin prep negative for malignancy, negative high-risk HPV ? Reconsult Oncology Acute kidney injury Nephrology following Previous smoker, quit 12 years ago, 42 pack year history/Probable COPD Outpatient PFTs DVT prophylaxis with Eliquis PUD prophylaxis with PPI Fernanda Soliman MD, [facility] Pulmonary Critical Care and Sleep Medicine, [facility] Office: [phone] The note was completed using EMR. Every effort was made to ensure accuracy; however, inadvertent computerized logistics project manager errors may be present. * Fernanda Soliman MD - 03/05/2025 2:48 PM EDT Images from the original note were not included. Pulmonary Critical Care Progress Note Patient seen for the follow up of acute moderate right sided pulmonary emboli, acute DVT, right lower lobe infiltrate pulmonary nodules, previous smoker, ovarian mass, renal mass Subjective: Patient is resting comfortably in bed. EGD and colonoscopy were canceled again secondary to patientintolerance of prep. She denies chest pain, cough. She remains on heparin drip. Her shortness of breath is improved. Examination: Vitals: BP 159/68 Pulse 90 Temp 36.6 ??C (97.9 ??F) (Oral) Resp 16 Ht 157.5 cm (5' 2.01 ) Wt 85.9 kg (189 lb 6 oz) SpO2 94% BMI 34.63 kg/m?? General appearance: In no acute distress, alert and cooperative with exam, EOM I Neck: No JVD Lungs: Moderate air exchange, no wheezing or rhonchi Heart: regular rate and rhythm, S1, S2 normal, no gallop Abdomen: Soft, non tender, + BS Extremities: no cyanosis or clubbing. No significant edema, no skin rash or petechiae LABs: Results from last 7 days Lab Units 03/05/25 0403 03/04/25 0716 03/03/25 0436 WBC x10E9/L 16.0* 16.5* 12.8* HEMOGLOBIN g/dL 10.8* 10.7* 9.6* HEMATOCRIT % 34.7* 34.1* 30.9* PLATELETS X10E9/L 391 355 367 Results from last 7 days Lab Units 03/05/25 0403 03/04/25 2112 03/04/25 0716 03/03/25 0436 SODIUM mmol/L 138 -- 138 136 POTASSIUM mmol/L 4.0 4.1 3.6 3.8 CHLORIDE mmol/L 106 -- 105 106 CO2 mmol/L 17* -- 18* 18* BUN mg/dL 23 -- 18 13 CREATININE mg/dL 0.95 -- 0.89 0.82 CALCIUM mg/dL 9.2 -- 8.6 8.4* Echo complete W/O contrast 02/26/2025 EF 60-65%. Systolic function is normal. There is trace to mild regurgitation. There is no evidence of aortic valve stenosis. Radiology: CT chest 02/25/25 Impression & Recommendations: Acute right-sided pulmonary emboli/acute DVT right femoropopliteal, tibioperoneal, deep calf, left deep calf muscle Heparin drip with plans to transition to DOAC after procedures are complete Echocardiogram with EF of 60-65%, normal right ventricular systolic function Right lower lobe infiltrate/Multiple pulmonary nodules, suspected metastasis Oncology following Infectious disease following, currently on Rocephin and Flagyl Ovarian mass/renal mass Gynecologic/oncology consulted/Medical oncology consulted, input noted Recommended GI evaluation given elevated tumor markers GI plan for EGD/colonoscopy 03/04/2025 Infectious Disease Ceftriaxone 2g IV daily and Flagyl 500 mg po BID pending results of culture S/p paracentesis and soft tissue nodule biopsy 02/28/2025 with removal of 1850 mL of ludivina ascites fluid Peritoneal fluid culture is pending Await pathology from tissue biopsy Transvaginal ultrasound: 18.2 x 16.3 x 11.2 cm, multiloculated, cystic and solid lesion in the pelvis Thin prep negative for malignancy, negative high-risk HPV Previous smoker, quit 12 years ago, 42 pack year history/Probable COPD Outpatient PFTs DVT prophylaxis with heparin infusion PUD prophylaxis with PPI Discharge planning Discussed with RN Fernanda Soliman MD, [facility] Pulmonary Critical Care and Sleep Medicine, [facility] Office: [phone] The note was completed using EMR. Every effort was made to ensure accuracy; however, inadvertent computerized logistics project manager errors may be present. * Dario Burris MD - 03/05/2025 12:23 PM EDT Images from the original note were not included. Progress note [facility] Adult Hospitalist Name: Caren Suarez Acct: [id number] Room: [place] [address] Admit Date: 02/25/2025 5:24 PM PCP: Riya Diego MD Assesment/Plan Admit to Med surg unit Cardiac Monitoring Acute PE/DVT CTA of chest reported moderate right-sided pulmonary emboli without evidence of heart strain Received heparin infusion. Start Eliquis Echocardiogram showed normal ejection fraction, no evidence of right heart strain Pulmonary consulted Numerous pulmonary nodules likely metastasis Consult pulmonary General oncology consult Status post soft tissue biopsy 02/28 Await pathology from tissue biopsy Pulmonary consult Newly diagnosed Ovarian mass Gynecology/Oncology was consulted Transvaginal ultrasound: 18.2 x 16.3 x 11.2 cm, multiloculated, cystic and solid lesion in the pelvis Thin prep negative for malignancy, negative high-risk HPV Status post paracentesis and soft tissue nodule biopsy today 02/28/2025 with removal of 1850 mL of ludivina ascites fluid OBGYN recommended GI evaluation giving elevated tumor markers, patient unable to tolerate prep. plan for EGD and colonoscopy outpatient Patient is currently on Rocephin and Flagyl per ID. Urinary tract infection/bacterial peritonitis S/P paracentesis 02/28/2025 - nucleated cells are elevated at 1900 with neutrophil predominance (60%) - this is consistent with bacterial peritonitis Peritoneal fluid culture is pending Urinalysis came back positive for UTI Urine culture came back negative Patient is continued on IV antibiotics IV Rocephin and Flagyl Gastroenterology is following for EGD colonoscopy outpatient History of tobacco abuse Quit 12 years ago, with a 42 year history of smoking Outpatient PFT Poor oral intake Consult dietitian Hypertensive heart disease Monitor blood pressure closely Start Norvasc 5 mg daily Hydralazine PRN DVT and GI prophylaxis Continue to monitor/telemetry/CBC with diff daily/BMP daily Continue medications as below Scheduled Medications: amLODIPine, 5 mg, oral, Daily apixaban, 10 mg, oral, BID FOLLOWED BY [START ON 03/12/2025] apixaban, 5 mg, oral, BID cefTRIAXone (ROCEPHIN) IV, 2,000 mg, intravenous, Q24H folic acid, 1 mg, oral, Daily metroNIDAZOLE, 500 mg, intravenous, Q12H pantoprazole, 40 mg, oral, QAM AC sodium chloride, 3 mL, intravenous, Q12H JOSE [COMPLETED] sodium,potassium,mag sulfates, 177 mL, oral, Once AND sodium,potassium,mag sulfates, 177 mL, oral, Once Infusions: dextrose 5 % in water, 100 mL/hr sodium chloride 0.9 %, 20 mL/hr PRN medications acetaminophen, 650 mg, Q6H PRN dextrose, 15 g, PRN dextrose 5 % in water, 100 mL/hr, Continuous PRN dextrose 50 % in water (D50W), 25 mL, PRN glucagon (human recombinant), 1 mg, PRN hydrALAZINE, 10 mg, Q6H PRN magnesium sulfate, 2,000 mg, PRN magnesium sulfate, 4,000 mg, PRN ondansetron, 4 mg, Q4H PRN potassium chloride, 30-50 mEq, PRN Or potassium chloride, 30-50 mEq, PRN Or potassium chloride IV (Adult), 10 mEq, PRN sennosides-docusate sodium, 1 tablet, Q12H PRN sodium chloride, 10 mL, PRN sodium chloride, 3 mL, PRN sodium chloride, 25 mL, PRN sodium chloride 0.9 %, 20 mL/hr, Continuous PRN Code Status: Full Code Chief Complaint: No chief complaint on file. Subjective: Patient seen and examined at bedside. Resting on room air. Continued on IV antibiotics. Continued on IV heparin infusion. Afebrile Pt. Denies any CP, SOB, palpitation, JARRELL, dizziness, chills, cough, cold, changes in urination, BM or skin changes or any pain. History of Present Illness: Caren Suarez is a 69 y.o. female who presents with No chief complaint on file. Caren Suarez is an 69 y.o. White or female. came to the hospital with Abnormal test results. Patient states that she has been experiencing cold-like symptoms with to thepoint where she was having hard time breathing. She went to her PCP who placed her on steroids withno improvement. She then was on antibiotic therapy with still no improvement. 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 She also underwent venous duplex of bilateral lower extremities that reported rightacute DVT and left deep calf muscle vein DVT. she was Was then sent to the ER at [place] to be further evaluated and treated. She was transferred to [facility] for further evaluation and treatment. No significant past medical history of coronary artery disease, COPD diabetes or history of stroke.Patient does have a history of tobacco abuse quit 12 years ago Patient admitted for further management. I have personally reviewed the past medical history, past surgical history, medications, social history, and family history, and summarized in the note. Review of Systems: All 12 systems are reviewed and negative otherwise mentioned in HPI. Past Medical History: Past Problem List: Patient Active Problem List Diagnosis Date Noted DVT (deep venous thrombosis) ([facility]) 02/25/2025 Colon cancer screening 02/24/2025 Hematochezia 02/24/2025 Past Medical History: Diagnosis Date Deep vein thrombosis (CMS-HCC) Past Surgical History: No past surgical history on file. Medications Prior to Admission: Prior to Admission medications Not on File Allergies: Penicillin Social History: Tobacco: reports that she has quit smoking. Her smoking use included cigarettes. She has never usedsmokeless tobacco. Alcohol: reports no history of alcohol use. Drug Use: reports no history of drug use. Family History: Family History Problem Relation Age of Onset Breast cancer Neg Hx Physical Exam: Vitals: BP 159/68 Pulse 90 Temp 36.6 ??C (97.9 ??F) (Oral) Resp 16 Ht 157.5 cm (5' 2.01 ) Wt 85.9 kg (189 lb 6 oz) SpO2 94% BMI 34.63 kg/m?? Temp (24hrs), Av.6 ??C (97.8 ??F), Min:36.4 ??C (97.5 ??F), Max:36.7 ??C (98 ??F) Weight: Wt Readings from Last 3 Encounters: 03/05/25 85.9 kg (189 lb 6 oz) 02/24/25 74.4 kg (164 lb) General appearance - alert, well appearing, and in no acute distress Mental status - oriented to person, place, and time with normal affect Head - normocephalic and atraumatic Eyes - pupils equal and reactive, extraocular eye movements intact, conjunctiva clear Ears - hearing appears to be intact Nose - no drainage noted Mouth - mucous membranes moist. Neck - supple, no carotid bruits, positive cervical lymphadenopathy Chest - clear to auscultation, normal effort Heart - normal rate, regular rhythm, no murmur Abdomen - soft, nontender, nondistended, bowel sounds present all four quadrants, no masses, hepatomegaly or splenomegaly Neurological - normal speech, no focal findings or movement disorder noted, cranial nerves II through XII grossly intact Extremities - peripheral pulses palpable, no pedal edema or calf pain with palpation Skin - no gross lesions, rashes, or induration noted Data: I/O (24Hr): No intake or output data in the 24 hours ending 03/05/25 1631 Labs and Diagnostic studies: @[email or web address]@ No results found for: HGBA1C Microbiology Results Procedure Component Value Units Date/Time Body fluid culture includes gram stain [[id number]] Collected: 02/28/25 1325 Specimen: Sterile Body Fluid from Abdomen Updated: 03/05/25 0834 CULTURE RESULTS NO GROWTH 5 DAYS GRAM STAIN White Blood Cells Present No organisms seen On Concentrated Smear Echo complete W/O contrast Result Date: 02/26/2025 Left Ventricle: Left ventricle is small. Systolic function is normal with an ejection fraction of 60-65%. No segmental wall motion abnormalities. Grade I diastolic dysfunction (impaired relaxation) is present. Lateral E' is 11.70 cm/s. Medial E' is 7.94 cm/s. Right Ventricle: Right ventricular sizeappears normal. The right ventricular basal diameter is 22.0 mm. Systolic function is normal. Aortic Valve: There is trace to mild regurgitation. There is no evidence of aortic valve stenosis. CT angiogram chest Result Date: 02/25/2025 CLINICAL INFORMATION: DVT's TECHNIQUE: CT CTA CHEST CTA of the chest was obtained post intravenous administration of contrast. Post processed three- dimensional maximum intensity projection imaging was acquired and evaluated. There are moderate right-sided pulmonary emboli. No appreciable right heart strain. Right lower lobe infiltrate or atelectasis appreciated. There are bilateral pulmonary nodules appreciated most suggestive of metastasis, as previous described. Limited images of the upper abdomen again show free intraperitoneal fluid. Refer to previously dictated CT abdomen. No obvious medi astinal lymphadenopathy. Coronary arterial atherosclerotic calcification noted. Osseous structures appear grossly intact. IMPRESSION: Moderate right sided pulmonary emboli without evidence of right heart strain. Right lower lobe infiltrate or atelectasis. Numerous pulmonary nodules, likely metastasis. I personally called these findings to nurse Muhammad of the clinical service at time of dictation.All CT scans at this facility use dose modulation, iterative reconstruction, and/or weight based dosing when appropriate to reduce radiation dose to as low as reasonably achievable. Finalized by Chau Nicole MD on 02/25/2025 7:09 PM Echo/Stress: Echo complete W/O contrast Result Date: 02/26/2025 Left Ventricle: Left ventricle is small. Systolic function is normal with an ejection fraction of 60-65%. No segmental wall motion abnormalities. Grade I diastolic dysfunction (impaired relaxation) is present. Lateral E' is 11.70 cm/s. Medial E' is 7.94 cm/s. Right Ventricle: Right ventricular sizeappears normal. The right ventricular basal diameter is 22.0 mm. Systolic function is normal. Aortic Valve: There is trace to mild regurgitation. There is no evidence of aortic valve stenosis. EKG: No results found. Imaging: Ultrasound pelvic with transvaginal Result Date: 02/28/2025 Narrative: US PELVIC WITH TRANSVAGINAL HISTORY: Ovarian mass COMPARISON: CT abdomen pelvis dated 02/24/2025 TECHNIQUE: Transabdominal and transvaginal sonographic evaluation of the pelvis. Transabdominal imaging performed to evaluate for extra adnexal pelvic pathology. Transvaginal imaging performedfor better delineation of the adnexal and endometrial contents. Real time grayscale, color flow imaging, and duplex spectral Doppler waveform analysis was performed of the major arterial inflow and venous outflow structures of the pelvic mass with arterial and venous spectral waveforms obtained, documented, and reviewed in the setting of provided history. FINDINGS: Uterus: 5.3 x 3.3 x 1.6 cm Endom etrial Thickness: 0.2 cm The uterus demonstrates appropriate size and echo pattern. The endometriumis unremarkable. The ovaries are not confidently identified as individual structures. There is a 18.2 x 16.3 x 11.2 cm, multiloculated, cystic and solid lesion in the pelvis, which demonstrates consulting intern al color flow, arterial waveforms, and venous waveforms. Color score: 4. Free fluid in the pelvis with low level echoes. On comparison CT abdomen pelvis, there was peritoneal nodularity. IMPRESSION: O-RADS US 5 (high risk): 18.2 cm cystic and solid lesion in the pelvis with ascites and peritoneal nodularity. Finalized by Jason Humphrey MD on 02/28/2025 7:10 PM IR percutaneous needle biopsy abdomen retroperitoneal Result Date: 02/28/2025 Narrative: EXAM: CT-guided percutaneous core biopsy of anterior peritoneal nodule CLINICAL INDICATION: Peritoneal masses unclear etiology CONSENT: The risks, benefits, and expectations of the procedure were explained to the patient who signed a written consent. TIME OUT: Ball Protocol Time OutVerification performed. ANESTHESIA: 100 mcg of fentanyl was given for pain control 1% Lidocaine used as local anesthetic. TECHNIQUE:All CT scans at this facility use dose modulation, iterative reconstruction, and/or weight based dosing when appropriate to reduce radiation dose to as low as reasonably achievable. PROCEDURE: In the supine position, the peritoneal nodule was evaluated with CT which revealed a good window for biopsy. The overlying skin was prepped and draped in a sterile fashion and infiltrated with 1% lidocaine. Using intermittent CT guidance, a 17-gauge guiding needle was advanced into the targeted structure and a route sales representative image was obtained and saved in PACS. A [id number] core biopsy needle was then advanced through the guiding needle, and multiple 18-gauge core biopsies were obtained and submitted in formalin. Gelfoam tract embolization was performed. The needle was removed and hemostasis achieved by manual compression. Postprocedural scanning demonstratesexpected post biopsy changes and no immediate complication. A dressing was placed. The patient tolerated the procedure well. Estimated blood loss: Minimal Complications: None. IMPRESSION: Successful CT-guided core needle biopsy of peritoneal nodule. Finalized by Deena Palma MD on 02/28/2025 4:02 PM IR paracentesis diagnostic treatment with guidance Result Date: 02/28/2025 Narrative: EXAM: ULTRASOUND-GUIDED PARACENTESIS CLINICAL HISTORY: abdominal ascitis. CONSENT: The risks and benefits of the procedure were explained to the patient signed written consent. PROCEDURE/FINDINGS: All four quadrant of the abdomen were evaluated with ultrasound which showed small amount of free fluid in the abdomen . The left lower quadrant was prepped and draped in a sterile fashion and the skin infiltrated with 1% lidocaine. Real time ultrasound guidance was used during the punctureof the peritoneal cavity with an 18-gauge Yueh needle under direct ultrasound needle visualization,and an ultrasound route sales representative image was obtained and saved in PACS. The catheter was connected to vacuum bottles, and approximately 1.8 liters of ludivina fluid was removed and submitted for analysis. The needle was removed and dressing placed. No immediate complications. Estimated blood loss: Minimal IMPRESSION: Ultrasound guided paracentesis with removal of 1800 mL of ludivina fluid. Finalized by Deena Palma MD on 02/28/2025 4:00 PM Echo complete W/O contrast Result Date: 02/26/2025 Narrative: Left Ventricle: Left ventricle is small. Systolic function is normal with an ejection fraction of 60-65%. No segmental wall motion abnormalities. Grade I diastolic dysfunction (impaired relaxation) is present. Lateral E' is 11.70 cm/s. Medial E' is 7.94 cm/s. Right Ventricle: Right ventricular size appears normal. The right ventricular basal diameter is 22.0 mm. Systolic function is normal. Aortic Valve: There is trace to mild regurgitation. There is no evidence of aortic valve stenosis. CT angiogram chest Result Date: 02/25/2025 Narrative: CLINICAL INFORMATION: DVT's TECHNIQUE: CT CTA CHEST CTA of the chest was obtained post intravenous administration of contrast. Post processed three- dimensional maximum intensity projectionimaging was acquired and evaluated. There are moderate right-sided pulmonary emboli. No appreciableright heart strain. Right lower lobe infiltrate or atelectasis appreciated. There are bilateral pulmonary nodules appreciated most suggestive of metastasis, as previous described. Limited images of the upper abdomen again show free intraperitoneal fluid. Refer to previously dictated CT abdomen. No obvious mediastinal lymphadenopathy. Coronary arterial atherosclerotic calcification noted. Osseous structures appear grossly intact. IMPRESSION: Moderate right sided pulmonary emboli without evidenceof right heart strain. Right lower lobe infiltrate or atelectasis. Numerous pulmonary nodules, likely metastasis. I personally called these findings to nurse Muhammad of the clinical service at time ofdictation. All CT scans at this facility use dose modulation, iterative reconstruction, and/or weight based dosing when appropriate to reduce radiation dose to as low as reasonably achievable. Finalized by Chau Nicole MD on 02/25/2025 7:09 PM Vas venous duplex lwr bilateral Result Date: 02/24/2025 Narrative: Right: Dilated noncompressible distal femoral, popliteal, posterior tibial, peroneal anddeep calf muscle veins with hypoechoic intraluminal content and absent spectral Doppler signals. Remaining visualized deep venous segments are compressible with spontaneous phasic spectral Doppler waveforms. Superficial veins are compressible. Left: Limited contralateral duplex evaluation completed. Dilated Non-compressible deep calf muscle veins with hypoechoic intraluminal content and absent spectral Doppler signals. Common femoral, femoral, and popliteal veins are compressible without intraluminal content. Spontaneous, common femoral, femoral and popliteal spectral Doppler signals. Evaluation of superficial veins was not performed. Conclusions: RIGHT:ACUTE femoropopliteal deep vein thrombosis (DVT).ACUTE deep tibioperoneal vein thrombosis (DVT). ACUTE deep calf muscle vein thrombosis (DVT). NO EVIDENCE of superficial vein thrombosis of the lower extremity. LEFT:Limited visualization o f lower extremity venous segments.ACUTE deep calf muscle vein thrombosis (DVT). CT abdomen and pelvis with contrast Result Date: 02/24/2025 Narrative: CLINICAL INFORMATION: Localized swelling, mass and lump, lower limb, right; Generalized abdominal pain; Abdominal distension; SOB (shortness of breath); Tachycardia TECHNIQUE: CT ABDOMEN AND PELVIS W CONT CT images of the abdomen and pelvis are obtained. Intravenous contrast was administered. Images are reformatted in the sagittal and coronal planes. There are no prior exams available for comparison. There is diffuse free intraperitoneal fluid. Large partially solid and partially cystic lesion noted within the right adnexa measuring 16 cm x 12 cm x 11 cm. Ovarian carcinoma is the diagnosis of exclusion. Regions of soft tissue nodularity noted anterior lower abdomen. There are small bilateral lower lobe pulmonary nodules. Right basilar atelectasis also appreciated. Pancreas unremarkable. Adrenal symmetric. Large dependently layering gallstone. Small bowel is nondistended without evidence of obstruction. Mild thoracolumbar degenerative changes. No acute osseous abnormalities. Prominent nodes appreciated at the diya hepatis. IMPRESSION: Large partially solid partially cystic lesion within the right adnexa. Ovarian carcinoma is diagnosis of exclusion. 2.5 cm solid right renal lesion. Renal cell carcinoma is diagnosis of exclusion. Diffuse free intraperitoneal fluid. Small bilateral noncalcified lower lobe pulmonary nodules and lower anterior abdominal soft tissue nodules, likely metastasis. Prominent nodes in diya hepatis. THIS REPORT CONTAINS A SIGNIFICANT RESULT AND/OR RECOMMENDATION, WHICH REQUIRES THE ATTENTION OF THE LICENSED CAREGIVER RESPONSIBLE FOR THIS PATIENT. THEREFORE, I SPECIFICALLY DESIGNATED THIS REPORT TO BE TELEPHONED BY THE RADIOLOGY DEPARTMENT. FINDINGS WERE INSTRUCTED TO BE CALLED TO THE CLINICAL SERVICE ON 02/24/2025 AT 4:[address] scans at this facility use dose modulation, iterative reconstruction, and/or weight based dosing when appropriate to reduce radiation dose to as low as reasonably achievable. Finalized by Chau Nicole MD on 02/24/2025 4:15 PM X-ray chest 2 views Result Date: 02/19/2025 Narrative: XR CHEST 2 VWS HISTORY: Bronchitis COMPARISON: None FINDINGS: The trachea is midline. The cardiomediastinal silhouette is not enlarged. No pneumothorax or pleural effusion. Bibasilar linear airspace opacities. No focal consolidation. Multilevel degenerative changes of the thoracic spine.IMPRESSION: * Bibasilar linear airspace opacities most compatible with atelectasis. Approved by Resident Liu Apodaca MD on 02/19/2025 9:45 AM I, Dheeraj Wang MD have personally reviewed the image(s) and agree with and/or edited the report Finalized by Dheeraj Wang MD on 02/19/2025 10:56 AM Meds: Current Facility-Administered Medications: acetaminophen (TYLENOL) tablet 650 mg, 650 mg, oral, Q6H PRN, ELLIOTT Yoo, 325 mg at 03/01/25 0824 amLODIPine (NORVASC) tablet 5 mg, 5 mg, oral, Daily, ELLIOTT Finney, 5 mg at 03/05/25 0844 apixaban (ELIQUIS) tablet 10 mg, 10 mg, oral, BID, 10 mg at 03/05/25 1502 FOLLOWED BY [START ON03/12/2025] apixaban (ELIQUIS) tablet 5 mg, 5 mg, oral, BID, ELLIOTT Finney cefTRIAXone (ROCEPHIN) 2,000 mg in sodium chloride 0.9 % 50 mL IVPB W/ADAPTER, 2,000 mg, intravenous, Q24H, ELLIOTT Chavez, Stopped at 03/05/25 1313 dextrose (GLUTOSE) 40 % gel 15 g, 15 g, oral, PRN, ELLIOTT Yoo dextrose 5 % (D5W) infusion, 100 mL/hr, intravenous, Continuous PRN, ELLIOTT Yoo dextrose 50 % in water (D50W) 50% solution 25 mL, 25 mL, intravenous, PRN, ELLIOTT Yoo folic acid (FOLVITE) tablet 1 mg, 1 mg, oral, Daily, ELLIOTT Shankar, 1 mg at 03/05/25 0844 glucagon HCL injection 1 mg, 1 mg, intramuscular, PRN, Neelima Ta, STUDENT TR[employer]IVER-[employer]SISTANT [employer] hydrALAZINE (APRESOLINE) injection 10 mg, 10 mg, intravenous, Q6H PRN, Eleni Harding, STUDENT TR[employer]IVER-ASSISTANT [employer], 10 mg at 03/04/25 1335 magnesium sulfate IVPB 2000 mg/50 mL in iso-osmotic water (40 mg/mL premix), 2,000 mg, intravenous,PRN, Neelima R Keyon, STUDENT TR[employer]SISTANT [employer] magnesium sulfate IVPB 4000 mg/100 mL in iso-osmotic water (40 mg/mL premix), 4,000 mg, intravenous, PRN, Neelima R Keyon, STUDENT TRUCK [employer]IVER-ASSISTANT [employer] metroNIDAZOLE (FLAGYL) IVPB 500 mg/100 mL in iso-osmotic sodium chloride (5 mg/mL premix), 500 mg, intravenous, Q12H, Dario Burris MD, Stopped at 03/05/25 0945 ondansetron (PF) (ZOFRAN) injection 4 mg, 4 mg, intravenous, Q4H PRN, Neelima Ta, STUDENT TR[employer]IVER-[employer]SISTANT [employer], 4 mg at 03/04/25 1700 pantoprazole (PROTONIX) EC tablet 40 mg, 40 mg, oral, QAM AC, Neelima Ta, STUDENT TR[employer]SISTANT [employer], 40 mg at 03/05/25 0531 potassium chloride (K-TAB,KLOR-CON) CR tablet 30-50 mEq, 30-50 mEq, oral, PRN, 30 mEq at 03/04/25 1534 OR potassium chloride (KAYCIEL) 20 mEq/15 mL solution 30-50 mEq, 30-50 mEq, oral, PRN ORpotassium chloride IVPB 10 mEq/100 mL in water (0.1 mEq/mL premix), 10 mEq, intravenous, PRN, Neelima Serge Ta, STUDENT TR[employer]IVER-[employer]SISTANT [employer] sennosides-docusate sodium (SENOKOT-S) 8.6-50 mg 1 tablet, 1 tablet, oral, Q12H PRN, Neelima Serge Ta, STUDENT TR[employer]IVER-[employer]SISTANT [employer] sodium chloride 0.9 % flush 10 mL, 10 mL, intravenous, PRN, Deena Branch MD, 10 mL at 02/25/25 1857 sodium chloride 0.9 % flush 3 mL, 3 mL, intravenous, PRN, Neelima Serge CintronTa, STUDENT TRUCK [employer]IVER-[employer]SISTANT [employer] sodium chloride 0.9 % flush 3 mL, 3 mL, intravenous, Q12H JOSE, Neelima Serge Ta, STUDENT TRUCK [employer]IVER-ASSISTANT [employer], 3 mL at 03/04/25 2110 sodium chloride 0.9 % flush bag, 25 mL, intravenous, PRN, Neelima R Ta, STUDENT TR[employer]IVER-ASSISTANT [employer] sodium chloride 0.9 % infusion, 20 mL/hr, intravenous, Continuous PRN, Neelima Serge Ta, STUDENT TR[employer]IVER-ASSISTANT [employer] [COMPLETED] sodium,potassium,mag sulfates (SUPREP) 17.5-3.13-1.6 gram solution 177 mL, 177 mL, oral, Once, 177 mL at 03/03/25 1250 AND sodium,potassium,mag sulfates (SUPREP) 17.5-3.13-1.6 gram solution 177 mL, 177 mL, oral, Once, Wasef Soledad Segura MD Copy sent to Dr. Riya Diego MD This note was created with the assistance of a speech-recognition program. Although the intention is to generate a document that actually reflects the content of the visit, no guarantees can be provided that every mistake has been identified and corrected by editing. Note was updated later by me after physical examination and completion of the assessment. * ELLIOTT Rendon - 03/05/2025 12:20 PM EDT Images from the original note were not included. Division of Infectious Diseases Progress note Academic Team Please contact us via [employer]. After hours, call [phone] Patient name: Caren Suraez Patient Today's Date and Time: 03/05/2025, 12:20 PM Admission Date: 02/25/2025 Primary Care Physician: Riya Diego MD Impression and Recommendations: Leukocytosis Bacterial Peritonitis Ovarian Cystic Lesion, likely malignancy CT a/p demonstrated large partially solid and partially cystic lesion in the R adnexa measuring 16 x 12 x 11 cm and lower anterior abdominal soft tissue nodules, 2.5 cm solid R renal lesion and diffuse intraperitoneal fluid S/P paracentesis 02/28/2025 - nucleated cells are elevated at 1900 with neutrophil predominance (60%) - this is consistent with bacterial peritonitis Peritoneal fluid culture is negative to date Oncology is following - biopsy pending GI following - plan for EGD/colonoscopy but patient is not tolerating bowel prep. Timing TBD. Documented allergy to PCN Continue Ceftriaxone 2g IV daily and Flagyl 500 mg BID through today to complete 5 days of therapy Awaiting path report. Concern for malignant ascites Will follow Acute PE, with R heart strain Numerous pulmonary nodules likely metastasis Subjective Interval History: Patient seen and examined at bedside. Awake and alert. Reports abdominal cramping. No vomiting today. No fever, chills or sweats. No shortness of breath or cough. No nausea or diarrhea Objective Physical Examination : BP 159/68 Pulse 90 Temp 36.6 ??C (97.9 ??F) (Oral) Resp 16 Ht 157.5 cm (5' 2.01 ) Wt 85.9kg (189 lb 6 oz) SpO2 94% BMI 34.63 kg/m?? Temperature Range: Temp: 36.6 ??C (97.9 ??F) Temp Av.6 ??C (97.8 ??F) Min: 36.4 ??C (97.5 ??F)Max: 36.7 ??C (98 ??F) General Appearance: Awake, alert, and in no apparent distress Eyes: Sclera anicteric; conjunctivae pink ENT: Oropharynx clear, without erythema, exudate, or thrush. Neck: Supple, without lymphadenopathy. Pulmonary/Chest: Clear to auscultation, without wheezes, rales, or rhonchi Cardiovascular: Regular rate and rhythm without murmurs, rubs, or gallops. Abdomen: distended. Soft. nontender Extremities: No cyanosis, clubbing, edema, or effusions. Neurologic: Bulk and tone are normal. No atrophy is noted. Skin: No rash or lesions. Laboratory data: I have independently reviewed the following labs: Results from last 7 days Lab Units 03/05/2540203/04/25 0716 03/03/25 0436 WBC x10E9/L 16.0* 16.5* 12.8* HEMOGLOBIN g/dL 10.8* 10.7* 9.6* HEMATOCRIT % 34.7* 34.1* 30.9* MCV fL 72* 72* 71* PLATELETS X10E9/L 391 355 367 Results from last 7 days Lab Units 03/05/25 0403 03/04/25211103/04/2516 03/03/25 0436 SODIUM mmol/L 138 -- 138 136 POTASSIUM mmol/L 4.0 4.1 3.6 3.8 CHLORIDE mmol/L 106 -- 105 106 CO2 mmol/L 17* -- 18* 18* BUN mg/dL 23 -- 18 13 CREATININE mg/dL 0.95 -- 0.89 0.82 CALCIUM mg/dL 9.2 -- 8.6 8.4* Invalid input(s): BILIRUBINU , BILIRUBINNU Echo complete W/O contrast Result Date: 02/26/2025 Left Ventricle: Left ventricle is small. Systolic function is normal with an ejection fraction of 60-65%. No segmental wall motion abnormalities. Grade I diastolic dysfunction (impaired relaxation) is present. Lateral E' is 11.70 cm/s. Medial E' is 7.94 cm/s. Right Ventricle: Right ventricular sizeappears normal. The right ventricular basal diameter is 22.0 mm. Systolic function is normal. Aortic Valve: There is trace to mild regurgitation. There is no evidence of aortic valve stenosis. Imaging Studies: I have personally reviewed this study. Cultures: Microbiology Results Procedure Component Value Units Date/Time Body fluid culture includes gram stain [[id number]] Collected: 02/28/25 1325 Specimen: Sterile Body Fluid from Abdomen Updated: 03/05/25 0834 CULTURE RESULTS NO GROWTH 5 DAYS GRAM STAIN White Blood Cells Present No organisms seen On Concentrated Smear Medications: amLODIPine, 5 mg, oral, Daily cefTRIAXone (ROCEPHIN) IV, 2,000 mg, intravenous, Q24H folic acid, 1 mg, oral, Daily metroNIDAZOLE, 500 mg, intravenous, Q12H pantoprazole, 40 mg, oral, QAM AC polyethylene glycol, 119 g, oral, Q8H sodium chloride, 3 mL, intravenous, Q12H JOSE [COMPLETED] sodium,potassium,mag sulfates, 177 mL, oral, Once AND sodium,potassium,mag sulfates, 177 mL, oral, Once Thank you for allowing us to participate in the care of this patient. Please call with questions. - ELLIOTT RENDON 03/05/25 12:20 PM ELLIOTT Rendon 03/04/25 1605 ELLIOTT Rendon 03/05/25 1805 * Dario Burris MD - 03/04/2025 10:36 AM EDT Images from the original note were not included. Progress note [facility] Adult Hospitalist Name: Caren Suarez Acct: [id number] Room: [place] [address] Admit Date: 02/25/2025 5:24 PM PCP: Riya Diego MD Assesment/Plan Admit to Med surg unit Cardiac Monitoring Acute PE/DVT CTA of chest reported moderate right-sided pulmonary emboli without evidence of heart strain Continue heparin infusion. Echocardiogram showed normal ejection fraction, no evidence of right heart strain Pulmonary consulted Numerous pulmonary nodules likely metastasis Consult pulmonary General oncology consult Status post soft tissue biopsy 02/28 Await pathology from tissue biopsy Pulmonary consult Newly diagnosed Ovarian mass Gynecology/Oncology was consulted Transvaginal ultrasound: 18.2 x 16.3 x 11.2 cm, multiloculated, cystic and solid lesion in the pelvis Thin prep negative for malignancy, negative high-risk HPV Status post paracentesis and soft tissue nodule biopsy today 02/28/2025 with removal of 1850 mL of ludivina ascites fluid OBGYN recommended GI evaluation giving elevated tumor markers, plan for EGD and colonoscopy 03/06/2025 Patient is currently on Rocephin and Flagyl per ID. Urinary tract infection/bacterial peritonitis S/P paracentesis 02/28/2025 - nucleated cells are elevated at 1900 with neutrophil predominance (60%) - this is consistent with bacterial peritonitis Peritoneal fluid culture is pending Urinalysis came back positive for UTI Urine culture came back negative Patient is continued on IV antibiotics IV Rocephin and Flagyl Gastroenterology is following for EGD colonoscopy plan for 03/06/2025 History of tobacco abuse Quit 12 years ago, with a 42 year history of smoking Outpatient PFT Poor oral intake Consult dietitian Hypertensive heart disease Monitor blood pressure closely Start Norvasc 5 mg daily Hydralazine PRN DVT and GI prophylaxis Continue to monitor/telemetry/CBC with diff daily/BMP daily Continue medications as below Scheduled Medications: amLODIPine, 5 mg, oral, Daily cefTRIAXone (ROCEPHIN) IV, 2,000 mg, intravenous, Q24H folic acid, 1 mg, oral, Daily metroNIDAZOLE, 500 mg, intravenous, Q12H pantoprazole, 40 mg, oral, QAM AC polyethylene glycol, 119 g, oral, Q8H sodium chloride, 3 mL, intravenous, Q12H JOSE [COMPLETED] sodium,potassium,mag sulfates, 177 mL, oral, Once AND sodium,potassium,mag sulfates, 177 mL, oral, Once Infusions: dextrose 5 % in water, 100 mL/hr heparin, 300-2,090 Units/hr, Last Rate: 1,100 Units/hr (03/04/25 0745) sodium chloride 0.9 %, 20 mL/hr PRN medications acetaminophen, 650 mg, Q6H PRN dextrose, 15 g, PRN dextrose 5 % in water, 100 mL/hr, Continuous PRN dextrose 50 % in water (D50W), 25 mL, PRN glucagon (human recombinant), 1 mg, PRN heparin (porcine), 5,000 Units, PRN hydrALAZINE, 10 mg, Q6H PRN magnesium sulfate, 2,000 mg, PRN magnesium sulfate, 4,000 mg, PRN ondansetron, 4 mg, Q4H PRN potassium chloride, 30-50 mEq, PRN Or potassium chloride, 30-50 mEq, PRN Or potassium chloride IV (Adult), 10 mEq, PRN sennosides-docusate sodium, 1 tablet, Q12H PRN sodium chloride, 10 mL, PRN sodium chloride, 3 mL, PRN sodium chloride, 25 mL, PRN sodium chloride 0.9 %, 20 mL/hr, Continuous PRN Code Status: Full Code Chief Complaint: No chief complaint on file. Subjective: Patient seen and examined at bedside. Resting on room air. Continued on IV antibiotics. Continued on IV heparin infusion. Afebrile Pt. Denies any CP, SOB, palpitation, JARRELL, dizziness, chills, cough, cold, changes in urination, BM or skin changes or any pain. History of Present Illness: Caren Suarez is a 69 y.o. female who presents with No chief complaint on file. Caren Suarez is an 69 y.o. White or female. came to the hospital with Abnormal test results. Patient states that she has been experiencing cold-like symptoms with to thepoint where she was having hard time breathing. She went to her PCP who placed her on steroids withno improvement. She then was on antibiotic therapy with still no improvement. 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 She also underwent venous duplex of bilateral lower extremities that reported rightacute DVT and left deep calf muscle vein DVT. she was Was then sent to the ER at [place] to be further evaluated and treated. She was transferred to [facility] for further evaluation and treatment. No significant past medical history of coronary artery disease, COPD diabetes or history of stroke.Patient does have a history of tobacco abuse quit 12 years ago Patient admitted for further management. I have personally reviewed the past medical history, past surgical history, medications, social history, and family history, and summarized in the note. Review of Systems: All 12 systems are reviewed and negative otherwise mentioned in HPI. Past Medical History: Past Problem List: Patient Active Problem List Diagnosis Date Noted DVT (deep venous thrombosis) ([facility]) 02/25/2025 Colon cancer screening 02/24/2025 Hematochezia 02/24/2025 Past Medical History: Diagnosis Date Deep vein thrombosis ([facility]) Past Surgical History: No past surgical history on file. Medications Prior to Admission: Prior to Admission medications Not on File Allergies: Penicillin Social History: Tobacco: reports that she has quit smoking. Her smoking use included cigarettes. She has never usedsmokeless tobacco. Alcohol: reports no history of alcohol use. Drug Use: reports no history of drug use. Family History: Family History Problem Relation Age of Onset Breast cancer Neg Hx Physical Exam: Vitals: BP 181/79 Comment: rn notified Pulse 89 Temp 36.4 ??C (97.6 ??F) (Oral) Resp 16 Ht 157.5 cm (5' 2.01 ) Wt 85.5 kg (188 lb 7.9 oz) SpO2 94% BMI 34.47 kg/m?? Temp (24hrs), Av.5 ??C (97.7 ??F), Min:36.3 ??C (97.3 ??F), Max:36.8 ??C (98.2 ??F) Weight: Wt Readings from Last 3 Encounters: 03/04/25 85.5 kg (188 lb 7.9 oz) 02/24/25 74.4 kg (164 lb) General appearance - alert, well appearing, and in no acute distress Mental status - oriented to person, place, and time with normal affect Head - normocephalic and atraumatic Eyes - pupils equal and reactive, extraocular eye movements intact, conjunctiva clear Ears - hearing appears to be intact Nose - no drainage noted Mouth - mucous membranes moist. Neck - supple, no carotid bruits, positive cervical lymphadenopathy Chest - clear to auscultation, normal effort Heart - normal rate, regular rhythm, no murmur Abdomen - soft, nontender, nondistended, bowel sounds present all four quadrants, no masses, hepatomegaly or splenomegaly Neurological - normal speech, no focal findings or movement disorder noted, cranial nerves II through XII grossly intact Extremities - peripheral pulses palpable, no pedal edema or calf pain with palpation Skin - no gross lesions, rashes, or induration noted Data: I/O (24Hr): No intake or output data in the 24 hours ending 03/04/25 1405 Labs and Diagnostic studies: @[email or web address]@ No results found for: HGBA1C Microbiology Results Procedure Component Value Units Date/Time Body fluid culture includes gram stain [[id number]] Collected: 02/28/25 1325 Specimen: Sterile Body Fluid from Abdomen Updated: 03/04/25 0832 CULTURE RESULTS NO GROWTH 4 DAYS GRAM STAIN White Blood Cells Present No organisms seen On Concentrated Smear Urine Culture Urine, Clean Catch Midstream [[id number]] Collected: 02/25/252025 Specimen: Urine, Clean Catch Midstream Updated: 02/26/25 1653 CULTURE RESULTS 10-50,000 ORGANISMS/mL NORMAL UROGENITAL YOLY Echo complete W/O contrast Result Date: 02/26/2025 Left Ventricle: Left ventricle is small. Systolic function is normal with an ejection fraction of 60-65%. No segmental wall motion abnormalities. Grade I diastolic dysfunction (impaired relaxation) is present. Lateral E' is 11.70 cm/s. Medial E' is 7.94 cm/s. Right Ventricle: Right ventricular sizeappears normal. The right ventricular basal diameter is 22.0 mm. Systolic function is normal. Aortic Valve: There is trace to mild regurgitation. There is no evidence of aortic valve stenosis. CT angiogram chest Result Date: 02/25/2025 CLINICAL INFORMATION: DVT's TECHNIQUE: CT CTA CHEST CTA of the chest was obtained post intravenous administration of contrast. Post processed three- dimensional maximum intensity projection imaging was acquired and evaluated. There are moderate right-sided pulmonary emboli. No appreciable right heart strain. Right lower lobe infiltrate or atelectasis appreciated. There are bilateral pulmonary nodules appreciated most suggestive of metastasis, as previous described. Limited images of the upper abdomen again show free intraperitoneal fluid. Refer to previously dictated CT abdomen. No obvious medi astinal lymphadenopathy. Coronary arterial atherosclerotic calcification noted. Osseous structures appear grossly intact. IMPRESSION: Moderate right sided pulmonary emboli without evidence of right heart strain. Right lower lobe infiltrate or atelectasis. Numerous pulmonary nodules, likely metastasis. I personally called these findings to nurse Muhammad of the clinical service at time of dictation.All CT scans at this facility use dose modulation, iterative reconstruction, and/or weight based dosing when appropriate to reduce radiation dose to as low as reasonably achievable. Finalized by Chau Nicole MD on 02/25/2025 7:09 PM Echo/Stress: Echo complete W/O contrast Result Date: 02/26/2025 Left Ventricle: Left ventricle is small. Systolic function is normal with an ejection fraction of 60-65%. No segmental wall motion abnormalities. Grade I diastolic dysfunction (impaired relaxation) is present. Lateral E' is 11.70 cm/s. Medial E' is 7.94 cm/s. Right Ventricle: Right ventricular sizeappears normal. The right ventricular basal diameter is 22.0 mm. Systolic function is normal. Aortic Valve: There is trace to mild regurgitation. There is no evidence of aortic valve stenosis. EKG: No results found. Imaging: Ultrasound pelvic with transvaginal Result Date: 02/28/2025 Narrative: US PELVIC WITH TRANSVAGINAL HISTORY: Ovarian mass COMPARISON: CT abdomen pelvis dated 02/24/2025 TECHNIQUE: Transabdominal and transvaginal sonographic evaluation of the pelvis. Transabdominal imaging performed to evaluate for extra adnexal pelvic pathology. Transvaginal imaging performedfor better delineation of the adnexal and endometrial contents. Real time grayscale, color flow imaging, and duplex spectral Doppler waveform analysis was performed of the major arterial inflow and venous outflow structures of the pelvic mass with arterial and venous spectral waveforms obtained, documented, and reviewed in the setting of provided history. FINDINGS: Uterus: 5.3 x 3.3 x 1.6 cm Endom etrial Thickness: 0.2 cm The uterus demonstrates appropriate size and echo pattern. The endometriumis unremarkable. The ovaries are not confidently identified as individual structures. There is a 18.2 x 16.3 x 11.2 cm, multiloculated, cystic and solid lesion in the pelvis, which demonstrates consulting intern al color flow, arterial waveforms, and venous waveforms. Color score: 4. Free fluid in the pelvis with low level echoes. On comparison CT abdomen pelvis, there was peritoneal nodularity. IMPRESSION: O-RADS US 5 (high risk): 18.2 cm cystic and solid lesion in the pelvis with ascites and peritoneal nodularity. Finalized by Jason Humphrey MD on 02/28/2025 7:10 PM IR percutaneous needle biopsy abdomen retroperitoneal Result Date: 02/28/2025 Narrative: EXAM: CT-guided percutaneous core biopsy of anterior peritoneal nodule CLINICAL INDICATION: Peritoneal masses unclear etiology CONSENT: The risks, benefits, and expectations of the procedure were explained to the patient who signed a written consent. TIME OUT: Ball Protocol Time OutVerification performed. ANESTHESIA: 100 mcg of fentanyl was given for pain control 1% Lidocaine used as local anesthetic. TECHNIQUE:All CT scans at this facility use dose modulation, iterative reconstruction, and/or weight based dosing when appropriate to reduce radiation dose to as low as reasonably achievable. PROCEDURE: In the supine position, the peritoneal nodule was evaluated with CT which revealed a good window for biopsy. The overlying skin was prepped and draped in a sterile fashion and infiltrated with 1% lidocaine. Using intermittent CT guidance, a 17-gauge guiding needle was advanced into the targeted structure and a route sales representative image was obtained and saved in PACS. A -ncqqr core biopsy needle was then advanced through the guiding needle, and multiple 18-gauge core biopsies were obtained and submitted in formalin. Gelfoam tract embolization was performed. The needle was removed and hemostasis achieved by manual compression. Postprocedural scanning demonstratesexpected post biopsy changes and no immediate complication. A dressing was placed. The patient tolerated the procedure well. Estimated blood loss: Minimal Complications: None. IMPRESSION: Successful CT-guided core needle biopsy of peritoneal nodule. Finalized by Deena Palma MD on 02/28/2025 4:02 PM IR paracentesis diagnostic treatment with guidance Result Date: 02/28/2025 Narrative: EXAM: ULTRASOUND-GUIDED PARACENTESIS CLINICAL HISTORY: abdominal ascitis. CONSENT: The risks and benefits of the procedure were explained to the patient signed written consent. PROCEDURE/FINDINGS: All four quadrant of the abdomen were evaluated with ultrasound which showed small amount of free fluid in the abdomen . The left lower quadrant was prepped and draped in a sterile fashion and the skin infiltrated with 1% lidocaine. Real time ultrasound guidance was used during the punctureof the peritoneal cavity with an 18-gauge Yueh needle under direct ultrasound needle visualization,and an ultrasound route sales representative image was obtained and saved in PACS. The catheter was connected to vacuum bottles, and approximately 1.8 liters of ludivina fluid was removed and submitted for analysis. The needle was removed and dressing placed. No immediate complications. Estimated blood loss: Minimal IMPRESSION: Ultrasound guided paracentesis with removal of 1800 mL of ludivina fluid. Finalized by Deena Palma MD on 02/28/2025 4:00 PM Echo complete W/O contrast Result Date: 02/26/2025 Narrative: Left Ventricle: Left ventricle is small. Systolic function is normal with an ejection fraction of 60-65%. No segmental wall motion abnormalities. Grade I diastolic dysfunction (impaired relaxation) is present. Lateral E' is 11.70 cm/s. Medial E' is 7.94 cm/s. Right Ventricle: Right ventricular size appears normal. The right ventricular basal diameter is 22.0 mm. Systolic function is normal. Aortic Valve: There is trace to mild regurgitation. There is no evidence of aortic valve stenosis. CT angiogram chest Result Date: 02/25/2025 Narrative: CLINICAL INFORMATION: DVT's TECHNIQUE: CT CTA CHEST CTA of the chest was obtained post intravenous administration of contrast. Post processed three- dimensional maximum intensity projectionimaging was acquired and evaluated. There are moderate right-sided pulmonary emboli. No appreciableright heart strain. Right lower lobe infiltrate or atelectasis appreciated. There are bilateral pulmonary nodules appreciated most suggestive of metastasis, as previous described. Limited images of the upper abdomen again show free intraperitoneal fluid. Refer to previously dictated CT abdomen. No obvious mediastinal lymphadenopathy. Coronary arterial atherosclerotic calcification noted. Osseous structures appear grossly intact. IMPRESSION: Moderate right sided pulmonary emboli without evidenceof right heart strain. Right lower lobe infiltrate or atelectasis. Numerous pulmonary nodules, likely metastasis. I personally called these findings to nurse Muhammad of the clinical service at time ofdictation. All CT scans at this facility use dose modulation, iterative reconstruction, and/or weight based dosing when appropriate to reduce radiation dose to as low as reasonably achievable. Finalized by Chau Nicole MD on 02/25/2025 7:09 PM Vas venous duplex lwr bilateral Result Date: 02/24/2025 Narrative: Right: Dilated noncompressible distal femoral, popliteal, posterior tibial, peroneal anddeep calf muscle veins with hypoechoic intraluminal content and absent spectral Doppler signals. Remaining visualized deep venous segments are compressible with spontaneous phasic spectral Doppler waveforms. Superficial veins are compressible. Left: Limited contralateral duplex evaluation completed. Dilated Non-compressible deep calf muscle veins with hypoechoic intraluminal content and absent spectral Doppler signals. Common femoral, femoral, and popliteal veins are compressible without intraluminal content. Spontaneous, common femoral, femoral and popliteal spectral Doppler signals. Evaluation of superficial veins was not performed. Conclusions: RIGHT:ACUTE femoropopliteal deep vein thrombosis (DVT).ACUTE deep tibioperoneal vein thrombosis (DVT). ACUTE deep calf muscle vein thrombosis (DVT). NO EVIDENCE of superficial vein thrombosis of the lower extremity. LEFT:Limited visualization o f lower extremity venous segments.ACUTE deep calf muscle vein thrombosis (DVT). CT abdomen and pelvis with contrast Result Date: 02/24/2025 Narrative: CLINICAL INFORMATION: Localized swelling, mass and lump, lower limb, right; Generalized abdominal pain; Abdominal distension; SOB (shortness of breath); Tachycardia TECHNIQUE: CT ABDOMEN AND PELVIS W CONT CT images of the abdomen and pelvis are obtained. Intravenous contrast was administered. Images are reformatted in the sagittal and coronal planes. There are no prior exams available for comparison. There is diffuse free intraperitoneal fluid. Large partially solid and partially cystic lesion noted within the right adnexa measuring 16 cm x 12 cm x 11 cm. Ovarian carcinoma is the diagnosis of exclusion. Regions of soft tissue nodularity noted anterior lower abdomen. There are small bilateral lower lobe pulmonary nodules. Right basilar atelectasis also appreciated. Pancreas unremarkable. Adrenal symmetric. Large dependently layering gallstone. Small bowel is nondistended without evidence of obstruction. Mild thoracolumbar degenerative changes. No acute osseous abnormalities. Prominent nodes appreciated at the diya hepatis. IMPRESSION: Large partially solid partially cystic lesion within the right adnexa. Ovarian carcinoma is diagnosis of exclusion. 2.5 cm solid right renal lesion. Renal cell carcinoma is diagnosis of exclusion. Diffuse free intraperitoneal fluid. Small bilateral noncalcified lower lobe pulmonary nodules and lower anterior abdominal soft tissue nodules, likely metastasis. Prominent nodes in diya hepatis. THIS REPORT CONTAINS A SIGNIFICANT RESULT AND/OR RECOMMENDATION, WHICH REQUIRES THE ATTENTION OF THE LICENSED CAREGIVER RESPONSIBLE FOR THIS PATIENT. THEREFORE, I SPECIFICALLY DESIGNATED THIS REPORT TO BE TELEPHONED BY THE RADIOLOGY DEPARTMENT. FINDINGS WERE INSTRUCTED TO BE CALLED TO THE CLINICAL SERVICE ON 02/24/2025 AT 4:[address] scans at this facility use dose modulation, iterative reconstruction, and/or weight based dosing when appropriate to reduce radiation dose to as low as reasonably achievable. Finalized by Chau Nicole MD on 02/24/2025 4:15 PM X-ray chest 2 views Result Date: 02/19/2025 Narrative: XR CHEST 2 VWS HISTORY: Bronchitis COMPARISON: None FINDINGS: The trachea is midline. The cardiomediastinal silhouette is not enlarged. No pneumothorax or pleural effusion. Bibasilar linear airspace opacities. No focal consolidation. Multilevel degenerative changes of the thoracic spine.IMPRESSION: * Bibasilar linear airspace opacities most compatible with atelectasis. Approved by Resident Liu Apodaca MD on 02/19/2025 9:45 AM I, Dheeraj Wang MD have personally reviewed the image(s) and agree with and/or edited the report Finalized by Dheeraj Wang MD on 02/19/2025 10:56 AM Meds: Current Facility-Administered Medications: acetaminophen (TYLENOL) tablet 650 mg, 650 mg, oral, Q6H PRN, Neelima Ta APRN-ASSISTANT DIRECTOR [employer], 325 mg at 03/01/25 0824 amLODIPine (NORVASC) tablet 5 mg, 5 mg, oral, Daily, Eleni Harding APRN-ASSISTANT [employer], 5 mg at 03/04/25 1141 cefTRIAXone (ROCEPHIN) 2,000 mg in sodium chloride 0.9 % 50 mL IVPB W/ADAPTER, 2,000 mg, intravenous, Q24H, Kathy Disla APRN-ASSISTANT [employer], Stopped at 03/04/25 1213 dextrose (GLUTOSE) 40 % gel 15 g, 15 g, oral, PRN, Neelima Ta STUDENT TRUCK DRIVER-ASSISTANT [employer] dextrose 5 % (D5W) infusion, 100 mL/hr, intravenous, Continuous PRN, Neelima Ta STUDENT TRUCK DRIVER-ASSISTANT [employer] dextrose 50 % in water (D50W) 50% solution 25 mL, 25 mL, intravenous, PRN, Neelima Ta STUDENT TRUCK DRIVER-ASSISTANT [employer] folic acid (FOLVITE) tablet 1 mg, 1 mg, oral, Daily, Tanya SADIE Kraus-ASSISTANT [employer], 1 mg at 03/04/25 1141 glucagon HCL injection 1 mg, 1 mg, intramuscular, PRN, Neelima Ta STUDENT TRUCK DRIVER-ASSISTANT [employer] heparin (porcine) injection 5,000 Units, 5,000 Units, intravenous, PRN, Tyson Ritchie APRN-ASSISTANT [employer], 5,000 Units at 02/26/25 0502 heparin infusion 47354 units/500 mL in 0.45% NaCl (50 units/mL premix), 300- 2,090 Units/hr, intravenous, Continuous, Dario Burris MD, Last Rate: 22 mL/hr at 03/04/25 0745, 1,100 Units/hr at 745 hydrALAZINE (APRESOLINE) injection 10 mg, 10 mg, intravenous, Q6H PRN, Eleni Harding APRN-ASSISTANT [employer], 10 mg at 03/04/25 1335 magnesium sulfate IVPB 2000 mg/50 mL in iso-osmotic water (40 mg/mL premix), 2,000 mg, intravenous,PRN, Neelima Ta, STUDENT TRUCK DRIVER-ASSISTANT [employer] magnesium sulfate IVPB 4000 mg/100 mL in iso-osmotic water (40 mg/mL premix), 4,000 mg, intravenous, PRN, Neelima Ta, STUDENT TRUCK DRIVER-ASSISTANT [employer] metroNIDAZOLE (FLAGYL) IVPB 500 mg/100 mL in iso-osmotic sodium chloride (5 mg/mL premix), 500 mg, intravenous, Q12H, Dario Burris MD, Stopped at 03/04/25 1012 ondansetron (PF) (ZOFRAN) injection 4 mg, 4 mg, intravenous, Q4H PRN, Neelima Ta STUDENT TRUCK DRIVER-ASSISTANT [employer] pantoprazole (PROTONIX) EC tablet 40 mg, 40 mg, oral, QAM AC, Neelima Ta, STUDENT TRUCK DRIVER-ASSISTANT [employer], 40 mg at 03/03/25 0535 polyethylene glycol (GLYCOLAX) packet 119 g, 119 g, oral, Q8H, Baudilio Vela MD, 119 g at 03/04/25 1340 potassium chloride (K-TAB,KLOR-CON) CR tablet 30-50 mEq, 30-50 mEq, oral, PRN OR potassium chloride (KAYCIEL) 20 mEq/15 mL solution 30-50 mEq, 30-50 mEq, oral, PRN OR potassium chloride IVPB 10 mEq/100 mL in water (0.1 mEq/mL premix), 10 mEq, intravenous, PRN, Neelima Ta, STUDENT TRUCK DRIVER-ASSISTANT [employer] sennosides-docusate sodium (SENOKOT-S) 8.6-50 mg 1 tablet, 1 tablet, oral, Q12H PRN, Neelima Ta, STUDENT TRUCK DRIVER-ASSISTANT [employer] sodium chloride 0.9 % flush 10 mL, 10 mL, intravenous, PRN, Deena Branch MD, 10 mL at 02/25/25 1857 sodium chloride 0.9 % flush 3 mL, 3 mL, intravenous, PRN, Neelima Ta STUDENT TRUCK DRIVER-ASSISTANT [employer] sodium chloride 0.9 % flush 3 mL, 3 mL, intravenous, Q12H JOSE, Neelima Ta STUDENT TRUCK DRIVER-ASSISTANT [employer], 3 mL at 03/03/25 2149 sodium chloride 0.9 % flush bag, 25 mL, intravenous, PRN, Neelima Ta, STUDENT TRUCK DRIVER-ASSISTANT [employer] sodium chloride 0.9 % infusion, 20 mL/hr, intravenous, Continuous PRN, Neelima Ta STUDENT TRUCK DRIVER-ASSISTANT [employer] [COMPLETED] sodium,potassium,mag sulfates (SUPREP) 17.5-3.13-1.6 gram solution 177 mL, 177 mL, oral, Once, 177 mL at 03/03/25 1250 AND sodium,potassium,mag sulfates (SUPREP) 17.5-3.13-1.6 gram solution 177 mL, 177 mL, oral, Once, Wasef Soledad Segura MD Copy sent to Dr. Riya Diego MD This note was created with the assistance of a speech-recognition program. Although the intention is to generate a document that actually reflects the content of the visit, no guarantees can be provided that every mistake has been identified and corrected by editing. Note was updated later by me after physical examination and completion of the assessment. * ELLIOTT Rendon - 03/04/2025 9:52 AM EDT Images from the original note were not included. Division of Infectious Diseases Progress note Academic Team Please contact us via [employer]. After hours, call [phone] Patient name: Caren Suarez Patient Today's Date and Time: 03/04/2025, 9:52 AM Admission Date: 02/25/2025 Primary Care Physician: Riya Diego MD Impression and Recommendations: Leukocytosis Bacterial Peritonitis Ovarian Cystic Lesion, likely malignancy CT a/p demonstrated large partially solid and partially cystic lesion in the R adnexa measuring 16 x 12 x 11 cm and lower anterior abdominal soft tissue nodules, 2.5 cm solid R renal lesion and diffuse intraperitoneal fluid S/P paracentesis 02/28/2025 - nucleated cells are elevated at 1900 with neutrophil predominance (60%) - this is consistent with bacterial peritonitis Peritoneal fluid culture is negative to date Oncology is following - biopsy pending GI following - plan for EGD/colonoscopy but patient is not tolerating bowel prep. Timing TBD. Documented allergy to PCN Continue Ceftriaxone 2g IV daily and Flagyl 500 mg BID. Metronidazole changed to IV due to nausea from oral. Tolerating so far Discussed with hem/onc. Awaiting path report With next paracentesis, will need to send fluid for cytology and culture Will follow Acute PE, with R heart strain Numerous pulmonary nodules likely metastasis Subjective Interval History: Patient seen and examined at bedside. Awake and alert. Reports abdominal pain. Reports nausea, vomiting and unable to tolerate bowel prep. Flagyl changed to IV. No fever, chills or sweats. No shortness of breath or cough. No nausea, vomiting or diarrhea Objective Physical Examination : BP 169/68 Comment: rn notified Pulse 87 Temp 36.3 ??C (97.4 ??F) (Oral) Resp 16 Ht 157.5 cm(5' 2.01 ) Wt 85.5 kg (188 lb 7.9 oz) SpO2 95% BMI 34.47 kg/m?? Temperature Range: Temp: 36.3 ??C (97.4 ??F) Temp Av.5 ??C (97.7 ??F) Min: 36.3 ??C (97.3 ??F)Max: 36.8 ??C (98.2 ??F) General Appearance: Awake, alert, and in no apparent distress Eyes: Sclera anicteric; conjunctivae pink ENT: Oropharynx clear, without erythema, exudate, or thrush. Neck: Supple, without lymphadenopathy. Pulmonary/Chest: Clear to auscultation, without wheezes, rales, or rhonchi Cardiovascular: Regular rate and rhythm without murmurs, rubs, or gallops. Abdomen: Soft, nontender, nondistended. Extremities: No cyanosis, clubbing, edema, or effusions. Neurologic: Bulk and tone are normal. No atrophy is noted. Skin: No rash or lesions. Laboratory data: I have independently reviewed the following labs: Results from last 7 days Lab Units 03/04/25 0716 03/03/25 0436 03/02/25 0644 WBC x10E9/L 16.5* 12.8* 11.8* HEMOGLOBIN g/dL 10.7* 9.6* 8.9* HEMATOCRIT % 34.1* 30.9* 29.1* MCV fL 72* 71* 71* PLATELETS X10E9/L 355 367 341 Results from last 7 days Lab Units 03/04/25 0716 03/03/25 0436 03/02/25 0644 SODIUM mmol/L 138 136 137 POTASSIUM mmol/L 3.6 3.8 4.0 CHLORIDE mmol/L 105 106 108 CO2 mmol/L 18* 18* 22 BUN mg/dL 18 13 12 CREATININE mg/dL 0.89 0.82 0.84 CALCIUM mg/dL 8.6 8.4* 7.9* Results from last 7 days Lab Units 02/25/252025 COLOR UA Tripp* TURBIDITY Clear SPECIFIC GRAVITY, URINE 1.015 NITRITE UA Negative PH URINE 6.0 LEUKOCYTE ESTERASE Small* PROTEIN 50 mg/dL* KETONES (URINE) Negative UROBILINOGEN 2 eu/dL* BLOOD Large* R. B. CELLS 68* WBC UA 19* Echo complete W/O contrast Result Date: 02/26/2025 Left Ventricle: Left ventricle is small. Systolic function is normal with an ejection fraction of 60-65%. No segmental wall motion abnormalities. Grade I diastolic dysfunction (impaired relaxation) is present. Lateral E' is 11.70 cm/s. Medial E' is 7.94 cm/s. Right Ventricle: Right ventricular sizeappears normal. The right ventricular basal diameter is 22.0 mm. Systolic function is normal. Aortic Valve: There is trace to mild regurgitation. There is no evidence of aortic valve stenosis. Imaging Studies: I have personally reviewed this study. Cultures: Microbiology Results Procedure Component Value Units Date/Time Body fluid culture includes gram stain [[id number]] Collected: 02/28/25 1325 Specimen: Sterile Body Fluid from Abdomen Updated: 03/04/25 0832 CULTURE RESULTS NO GROWTH 4 DAYS GRAM STAIN White Blood Cells Present No organisms seen On Concentrated Smear Urine Culture Urine, Clean Catch Midstream [[id number]] Collected: 02/25/252025 Specimen: Urine, Clean Catch Midstream Updated: 02/26/25 1653 CULTURE RESULTS 10-50,000 ORGANISMS/mL NORMAL UROGENITAL YOLY Medications: cefTRIAXone (ROCEPHIN) IV, 2,000 mg, intravenous, Q24H metroNIDAZOLE, 500 mg, intravenous, Q12H pantoprazole, 40 mg, oral, QAM AC sodium chloride, 3 mL, intravenous, Q12H JOSE [COMPLETED] sodium,potassium,mag sulfates, 177 mL, oral, Once AND sodium,potassium,mag sulfates, 177 mL, oral, Once Thank you for allowing us to participate in the care of this patient. Please call with questions. - ELLIOTT RENDON 03/04/25 9:52 AM ELLIOTT Rendon 03/04/25 1605 * Fernanda Soliman MD - 03/04/2025 9:39 AM EDT Images from the original note were not included. Pulmonary Critical Care Progress Note Patient seen for the follow up of acute moderate right sided pulmonary emboli, acute DVT, right lower lobe infiltrate pulmonary nodules, previous smoker, ovarian mass, renal mass Subjective: Patient is resting comfortably in bed. EGD and colonoscopy were canceled secondary to patient tolerance of prep. She denies chest pain, cough. She remains on heparin drip. Her shortness of breath is improved. Examination: Vitals: BP 169/68 Comment: rn notified Pulse 87 Temp 36.3 ??C (97.4 ??F) (Oral) Resp 16 Ht 157.5 cm (5' 2.01 ) Wt 85.5 kg (188 lb 7.9 oz) SpO2 95% BMI 34.47 kg/m?? General appearance: In no acute distress, alert and cooperative with exam, EOM I Neck: No JVD Lungs: Moderate air exchange, no wheezing or rhonchi Heart: regular rate and rhythm, S1, S2 normal, no gallop Abdomen: Soft, non tender, + BS Extremities: no cyanosis or clubbing. No significant edema, no skin rash or petechiae LABs: Results from last 7 days Lab Units 03/04/25 0716 03/03/25 0436 03/02/25 0644 WBC x10E9/L 16.5* 12.8* 11.8* HEMOGLOBIN g/dL 10.7* 9.6* 8.9* HEMATOCRIT % 34.1* 30.9* 29.1* PLATELETS X10E9/L 355 367 341 Results from last 7 days Lab Units 03/04/25 0716 03/03/25 0436 03/02/25 0644 SODIUM mmol/L 138 136 137 POTASSIUM mmol/L 3.6 3.8 4.0 CHLORIDE mmol/L 105 106 108 CO2 mmol/L 18* 18* 22 BUN mg/dL 18 13 12 CREATININE mg/dL 0.89 0.82 0.84 CALCIUM mg/dL 8.6 8.4* 7.9* Echo complete W/O contrast 02/26/2025 EF 60-65%. Systolic function is normal. There is trace to mild regurgitation. There is no evidence of aortic valve stenosis. Radiology: CT chest 02/25/25 Impression & Recommendations: Acute right-sided pulmonary emboli/acute DVT right femoropopliteal, tibioperoneal, deep calf, left deep calf muscle Heparin drip with plans to transition to DOAC after procedures are complete Echocardiogram with EF of 60-65%, normal right ventricular systolic function Right lower lobe infiltrate/Multiple pulmonary nodules, suspected metastasis Oncology following Infectious disease following, currently on Rocephin and Flagyl Ovarian mass/renal mass Gynecologic/oncology consulted/Medical oncology consulted, input noted Recommended GI evaluation given elevated tumor markers GI plan for EGD/colonoscopy 03/04/2025 Infectious Disease Ceftriaxone 2g IV daily and Flagyl 500 mg po BID pending results of culture S/p paracentesis and soft tissue nodule biopsy 02/28/2025 with removal of 1850 mL of ludivina ascites fluid Peritoneal fluid culture is pending Await pathology from tissue biopsy Transvaginal ultrasound: 18.2 x 16.3 x 11.2 cm, multiloculated, cystic and solid lesion in the pelvis Thin prep negative for malignancy, negative high-risk HPV Previous smoker, quit 12 years ago, 42 pack year history/Probable COPD Outpatient PFTs DVT prophylaxis with heparin infusion PUD prophylaxis with PPI Fernanda Soliman MD, [facility] Pulmonary Critical Care and Sleep Medicine, [facility] Office: [phone] The note was completed using EMR. Every effort was made to ensure accuracy; however, inadvertent computerized logistics project manager errors may be present. * ELLIOTT Shankar - 03/04/2025 9:18 AM EDT Images from the original note were not included. [facility] Hematology and Oncology - Daily Progress Note 03/04/2025, 9:18 AM Impression/Plan: Metastatic Disease, Clinically -Favoring ovarian primary until proven otherwise -CT a/p showed large partially solid and partially cystic lesion in the right adnexa measuring 16 cm x 12 cm x 11 cm + lower anterior abdominal soft tissue nodules + 2.5 cm solid R renal lesion + diffuse intraperitoneal fluid -CTA chest revealed numerous pulmonary nodules -[id number], EX4=578, CEA=24.6, CA 19-9 WNL -TVUS noted an 18.2 cm cystic and solid lesion in the pelvis with ascites and peritoneal nodularity -S/p IR performed paracentesis and biopsy of soft tissue nodules 02/28-->pathology/cytology pending -Urology following for recs re: renal lesion -[facility]/S[facility]/ON[facility] has signed off, I did reach out to them, Dr. Craig confirmed plan for outpatient visit 03/12 at 2pm, this was relayed to patient PE/DVT -Likely provoked by metastatic malignancy -CTA shows Moderate right sided pulmonary emboli without evidence of right heart strain -Dopplers revealing acute R femoropopliteal, deep tibioperoneal, and deep calf muscle DVT + L deep calf muscle DVT -On heparin gtt, likely transition to DOAC prior to discharge Anemia -Stable/Improved. Multifactorial due to severe B12 deficiency, Iron deficiency anemia in setting ofvaginal bleeding d/t #1, acute infection -Hgb=10.7(8.8, 8.5, 8.9, 9.1) microcytic -S/p IM B12 & IV iron -Start folic acid supplements -No hemolysis -EGD/colonoscopy not yet completed as she has not tolerated prep, tentative plan for 03/06 -Transfuse for hgb<7 -Have arranged for follow up with Dr. Romero UTI -On IV antibiotics -As per other services Continue management of other medical problems as per appropriate services. Patient discussed with Dr. Stone. Given stability of Hgb and plan to proceed with oncologic treatment with GynOnc, we will sign off at this time. Interval History: Patient seen and examined at bedside. She does not appear to be in any distress, she does endorse some abdominal pain. Discussed current labs and plan, she voices understanding and agreement. She is afebrile. VSS, maintained on room air without issue. Physical Examination : Temp: [36.3 ??C (97.3 ??F)-36.8 ??C (98.2 ??F)] 36.3 ??C (97.4 ??F) Pulse: [76-102] 87 Resp: [16-20] 16 BP: (148-176)/(65-79) 169/68 SpO2: [93 %-96 %] 95 % O2 Device: None (Room air) O2 Flow Rate (L/min): [0 L/min] 0 L/min Temperature Range: Temp: 36.3 ??C (97.4 ??F) Temp Av.5 ??C (97.7 ??F) Min: 36.3 ??C (97.3 ??F)Max: 36.8 ??C (98.2 ??F) Weight change: 14 kg (30 lb 13.8 oz) Physical Exam Vitals and nursing note reviewed. Constitutional: General: She is not in acute distress. Appearance: Normal appearance. She is normal weight. She is not ill-appearing or toxic-appearing. HENT: Head: Normocephalic and atraumatic. Right Ear: External ear normal. Left Ear: External ear normal. Nose: Nose normal. Mouth/Throat: Mouth: Mucous membranes are moist. Pharynx: Oropharynx is clear. Eyes: General: No scleral icterus. Extraocular Movements: Extraocular movements intact. Pupils: Pupils are equal, round Cardiovascular: Rate and Rhythm: Normal rate and regular rhythm. Pulmonary: Effort: Pulmonary effort is normal. No respiratory distress. Abdominal: General: There is distension. Tenderness: There is abdominal tenderness. There is guarding. Musculoskeletal: General: Normal range of motion. Cervical back: Normal range of motion and neck supple. Right lower leg: No edema. Left lower leg: No edema. Skin: General: Skin is warm and dry. Coloration: Skin is not jaundiced. Findings: No bruising or lesion. Neurological: General: No focal deficit present. Mental Status: She is alert and oriented to person, place, and time. Mental status is at baseline. Cranial Nerves: No cranial nerve deficit. Motor: No weakness. Gait: Gait normal. Psychiatric: Mood and Affect: Mood normal. Behavior: Behavior normal. Thought Content: Thought content normal. Judgment: Judgment normal. Laboratory data: Results from last 7 days Lab Units 03/04/25 0716 03/03/25 0436 03/02/25 0644 WBC x10E9/L 16.5* 12.8* 11.8* HEMOGLOBIN g/dL 10.7* 9.6* 8.9* HEMATOCRIT % 34.1* 30.9* 29.1* PLATELETS X10E9/L 355 367 341 MCV fL 72* 71* 71* Results from last 7 days Lab Units 03/04/25 0716 03/03/25 0436 03/02/25 0644 SODIUM mmol/L 138 136 137 POTASSIUM mmol/L 3.6 3.8 4.0 CHLORIDE mmol/L 105 106 108 CO2 mmol/L 18* 18* 22 BUN mg/dL 18 13 12 CREATININE mg/dL 0.89 0.82 0.84 CALCIUM mg/dL 8.6 8.4* 7.9* GLUCOSE mg/dL 98 82 96 MAGNESIUM mg/dL 2.4 2.2 2.1 VITAMIN B12: Lab Results Component Value Date [id number] 110 (L) 02/26/2025 FOLATE: Lab Results Component Value Date FOLATE 3.3 (L) 02/26/2025 IRON: Lab Results Component Value Date IRON 12 (L) 02/26/2025 TIBC 321 02/26/2025 FERRITIN 78 02/26/2025 Medications: cefTRIAXone (ROCEPHIN) IV, 2,000 mg, intravenous, Q24H metroNIDAZOLE, 500 mg, intravenous, Q12H pantoprazole, 40 mg, oral, QAM AC sodium chloride, 3 mL, intravenous, Q12H JOSE [COMPLETED] sodium,potassium,mag sulfates, 177 mL, oral, Once AND sodium,potassium,mag sulfates, 177 mL, oral, Once ELLIOTT Shankar 03/04/25 1050 Cosigned by Domenic Stone MD at 03/04/2025 4:26 PM EDT * Kathy StevinsonELLIOTT - 03/03/2025 8:37 AM EDT Images from the original note were not included. Division of Infectious Diseases Progress Note Please contact us via Cupple chat. After hours, call [phone] Patient name: Caren Suarez Patient Today's Date and Time: 03/03/2025, 8:37 AM Admission Date: 02/25/2025 Primary Care Physician: Riya Diego MD Impression and Recommendations:: Leukocytosis Bacterial Peritonitis Ovarian Cystic Lesion, likely malignancy CT a/p demonstrated large partially solid and partially cystic lesion in the R adnexa measuring 16 x 12 x 11 cm and lower anterior abdominal soft tissue nodules, 2.5 cm solid R renal lesion and diffuse intraperitoneal fluid S/P paracentesis 02/28/2025 - nucleated cells are elevated at 1900 with neutrophil predominance (60%) - this is consistent with bacterial peritonitis Peritoneal fluid culture is pending Oncology is following - biopsy pending GI following - plan for EGD/colonoscopy 03/04/2025 Documented allergy to PCN Continue Ceftriaxone 2g IV daily and Flagyl 500 mg po BID and follow peritoneal fluid culture Acute PE, with R heart strain Subjective Interval History:: Pt was seen and examined at bedside, chart/labs/diagnostics reviewed. No fever, WBC increased today- 12.8. Tolerating current abx. No n/v/d. Abdominal pain better Objective Physical Examination : BP 150/69 Pulse 83 Temp 36.6 ??C (97.9 ??F) (Oral) Resp 16 Ht 157.5 cm (5' 2.01 ) Wt 71.5kg (157 lb 10.1 oz) SpO2 94% BMI 28.82 kg/m?? Temperature Range: Temp: 36.6 ??C (97.9 ??F) Temp Av.6 ??C (97.9 ??F) Min: 36.4 ??C (97.5 ??F)Max: 36.8 ??C (98.3 ??F) Constitutional: Awake and alert Respiratory: equal air entry bilaterally, no distress, no wheezes, rhonchi, rales Cardiovascular: S1, S2, regular rate and rhythm, no murmurs, rubs, or gallops Gastrointestinal/Abdomen: Slightly distended and tender to palpation; soft Musculoskeletal/Extremities: No cyanosis, clubbing, edema, or effusions. Neurologic: Bulk and tone are normal. No atrophy is noted. Skin: warm, dry, no rashes or lesions noted Laboratory data: I have independently reviewed the following labs: Results from last 7 days Lab Units 03/03/25 0436 03/02/25 0644 03/01/25 0609 02/25/25 0713 02/24/25 1728 02/24/25 1544 WBC x10E9/L 12.8* 11.8* 10.9 < > 20.6* 19.7* HEMOGLOBIN g/dL 9.6* 8.9* 8.7* < > 9.6* 9.6* HEMATOCRIT % 30.9* 29.1* 27.6* < > 31.6* 31.9* MCV fL 71* 71* 70* < > 69* 69* PLATELETS X10E9/L 367 341 313 < > 287 263 NEUTROS ABS 10*3/uL -- -- -- -- 19.4* 18.5* LYMPHS ABS AUTO 10*3/uL -- -- -- -- 0.4* 0.4* MONOS ABS AUTO 10*3/uL -- -- -- -- 0.6 0.7 EOS ABS AUTO 10*3/uL -- -- -- -- 0.0 0.0 BASOS ABS AUTO 10*3/uL -- -- -- -- 0.1 0.1 < > = values in this interval not displayed. Results from last 7 days Lab Units 03/03/25 0436 03/02/25 0644 03/01/25 0609 02/26/25 0259 02/24/25 1728 02/24/25 1544 SODIUM mmol/L 136 137 138 < > 132* 133* POTASSIUM mmol/L 3.8 4.0 4.6 < > 4.2 4.1 CHLORIDE mmol/L 106 108 107 < > 99 101 CO2 mmol/L 18* 22 24 < > 21* 20* BUN mg/dL 13 12 15 < > 19 20 CREATININE mg/dL 0.82 0.84 0.86 < > 0.99 0.99 CALCIUM mg/dL 8.4* 7.9* 8.0* < > 8.3* 8.3* ALBUMIN g/dL -- -- -- -- 2.8* 2.8* ALK PHOS U/L -- -- -- -- 105 100 ALT U/L -- -- -- -- 15 15 AST U/L -- -- -- -- 21 24 < > = values in this interval not displayed. Results from last 7 days Lab Units 02/26/25 0259 02/24/25 1728 D DIMER ug/mL -- 7,187* FERRITIN ng/mL 78 -- LDH U/L 232 -- Results from last 7 days Lab Units 02/25/25 2026 COLOR UA Tripp* TURBIDITY Clear SPECIFIC GRAVITY, URINE 1.015 NITRITE UA Negative PH URINE 6.0 LEUKOCYTE ESTERASE Small* PROTEIN 50 mg/dL* KETONES (URINE) Negative UROBILINOGEN 2 eu/dL* BLOOD Large* R. B. CELLS 68* WBC UA 19* Imaging Studies: .CT Chest right sided PE . RLL atelectasis. No pneumonia CT chest abdomen and pelvis: diffuse free intraperitoneal fluid Cultures: Microbiology Results Procedure Component Value Units Date/Time Body fluid culture includes gram stain [[id number]] Collected: 02/28/25 1325 Specimen: Sterile Body Fluid from Abdomen Updated: 03/03/25 0746 CULTURE RESULTS NO GROWTH 3 DAYS GRAM STAIN White Blood Cells Present No organisms seen On Concentrated Smear Urine Culture Urine, Clean Catch Midstream [[id number]] Collected: 02/25/252025 Specimen: Urine, Clean Catch Midstream Updated: 02/26/251652 CULTURE RESULTS 10-50,000 ORGANISMS/mL NORMAL UROGENITAL YOLY Medications: cefTRIAXone (ROCEPHIN) IV, 2,000 mg, intravenous, Q24H cyanocobalamin, 1,000 mcg, intramuscular, Daily metroNIDAZOLE, 500 mg, oral, Q12H JOSE pantoprazole, 40 mg, oral, QAM AC sodium chloride, 3 mL, intravenous, Q12H JOSE sodium,potassium,mag sulfates, 177 mL, oral, Once AND [START ON 03/04/2025] sodium,potassium,mag sulfates, 177 mL, oral, Once Thank you for allowing us to participate in the care of this patient. Please call with questions. Kathy Disla APRN, DUYEN Disla APRN-DUYEN 03/03/25 1341 * Fernanda Soliamn MD - 03/03/2025 8:15 AM EDT Images from the original note were not included. Pulmonary Critical Care Progress Note Patient seen for the follow up of acute moderate right sided pulmonary emboli, acute DVT, right lower lobe infiltrate pulmonary nodules, previous smoker, ovarian mass, renal mass Subjective: She is currently sitting comfortably in the bed with nursing staff at the bedside. She denies chestpain, cough. She remains on heparin drip. Her shortness of breath is improved. Examination: Vitals: BP 147/68 Pulse 83 Temp 36.5 ??C (97.7 ??F) (Oral) Resp 16 Ht 157.5 cm (5' 2.01 ) Wt 71.5 kg (157 lb 10.1 oz) SpO2 92% BMI 28.82 kg/m?? General appearance: In no acute distress, alert and cooperative with exam, EOM I Neck: No JVD Lungs: Moderate air exchange, no wheezing or rhonchi Heart: regular rate and rhythm, S1, S2 normal, no gallop Abdomen: Soft, non tender, + BS Extremities: no cyanosis or clubbing. No significant edema, no skin rash or petechiae LABs: Results from last 7 days Lab Units 03/03/25 0436 03/02/25 0644 03/01/25 0609 WBC x10E9/L 12.8* 11.8* 10.9 HEMOGLOBIN g/dL 9.6* 8.9* 8.7* HEMATOCRIT % 30.9* 29.1* 27.6* PLATELETS X10E9/L 367 341 313 Results from last 7 days Lab Units 03/03/25 0436 03/02/25 0644 03/01/25 0609 SODIUM mmol/L 136 137 138 POTASSIUM mmol/L 3.8 4.0 4.6 CHLORIDE mmol/L 106 108 107 CO2 mmol/L 18* 22 24 BUN mg/dL 13 12 15 CREATININE mg/dL 0.82 0.84 0.86 CALCIUM mg/dL 8.4* 7.9* 8.0* Echo complete W/O contrast 02/26/2025 EF 60-65%. Systolic function is normal. There is trace to mild regurgitation. There is no evidence of aortic valve stenosis. Radiology: CT chest 02/25/25 Impression & Recommendations: Acute right-sided pulmonary emboli/acute DVT right femoropopliteal, tibioperoneal, deep calf, left deep calf muscle Heparin drip with plans to transition to DOAC after procedures are complete Echocardiogram with EF of 60-65%, normal right ventricular systolic function Right lower lobe infiltrate/Multiple pulmonary nodules, suspected metastasis Oncology following Infectious disease following, currently on Rocephin and Flagyl Ovarian mass/renal mass Gynecologic/oncology consulted/Medical oncology consulted, input noted Recommended GI evaluation given elevated tumor markers GI plan for EGD/colonoscopy 03/04/2025 Infectious Disease Ceftriaxone 2g IV daily and Flagyl 500 mg po BID pending results of culture S/p paracentesis and soft tissue nodule biopsy 02/28/2025 with removal of 1850 mL of ludivina ascites fluid Peritoneal fluid culture is pending Await pathology from tissue biopsy Transvaginal ultrasound: 18.2 x 16.3 x 11.2 cm, multiloculated, cystic and solid lesion in the pelvis Thin prep negative for malignancy, negative high-risk HPV Previous smoker, quit 12 years ago, 42 pack year history/Probable COPD Outpatient PFTs DVT prophylaxis with heparin infusion PUD prophylaxis with PPI Fernanda Soliman MD, FCCP Pulmonary Critical Care and Sleep Medicine, [facility] Office: [phone] The note was completed using EMR. Every effort was made to ensure accuracy; however, inadvertent computerized logistics project manager errors may be present. * Deena Branch MD - 03/02/2025 12:57 PM EDT Images from the original note were not included. 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 Monitor CBC BMP magnesium daily Acute PE/DVT CTA of chest reported moderate right-sided pulmonary emboli without evidence of heart strain Patient was restarted back on heparin infusion Echocardiogram showed normal ejection fraction, no evidence of right heart strain Pulmonary consulted Numerous pulmonary nodules likely metastasis Consult pulmonary General oncology consult Pulmonary consult Newly diagnosed Ovarian mass Gynecology/Oncology was consulted Status post paracentesis and soft tissue nodule biopsy today 02/28/2025 with removal of 1850 mL of ludivina ascites fluid OBGYN recommended GI evaluation giving elevated tumor markers, plan for EGD and colonoscopy on Monday. Patient is currently on Rocephin and Flagyl per ID. Urinary tract infection Urinalysis came back positive for UTI Urine culture came back negative History of tobacco abuse Quit 12 years ago, with a 42 year history of smoking Oral Protonix for GI prophylaxis No further pharmacological need for DVT prophylaxis Subjective PT Denied any nausea vomiting , no diarrhea , no constipation , no chest pain , no palpitation , noheadache, other systems were reviewed and were negative. HPI: Caren Suarez is an 69 y.o. White or female. came to the hospital with Abnormal test results. Patient states that she has been experiencing cold-like symptoms with to thepoint where she was having hard time breathing. She went to her PCP who placed her on steroids withno improvement. She then was on antibiotic therapy with still no improvement. 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 She also underwent venous duplex of bilateral lower extremities that reported rightacute DVT and left deep calf muscle vein DVT. she was Was then sent to the ER at [place] to be further evaluated and treated. She was transferred to [facility] for further evaluation and treatment. No significant past medical history of coronary artery disease, COPD diabetes or history of stroke.Patient does have a history of tobacco abuse quit 12 years ago Social History Tobacco Use Smoking Status Former Types: Cigarettes Smokeless Tobacco Never Social History Substance and Sexual Activity Alcohol Use Never Physical examination : BP 110/67 Pulse 73 Temp 36.6 ??C (97.9 ??F) (Oral) Resp 18 Ht 157.5 cm (5' 2.01 ) Wt 71.3kg (157 lb 3 oz) SpO2 94% BMI 28.74 kg/m?? General Appearance: Alert, cooperative, no distress. Head: Normocephalic, without obvious abnormality, atraumatic Eyes: PERRL, conjunctiva/corneas clear, EOM's intact Ears: Normal external ear canals, both ears Nose: Nares normal, septum midline, mucosa normal, no drainage or sinus tenderness Throat: Lips, mucosa, and tongue normal; teeth and gums normal Neck: Supple, symmetrical, trachea midline, no adenopathy, thyroid: not enlarged, symmetric, no tenderness/mass/nodules, no carotid bruit or JVD Lungs: Clear to auscultation bilaterally, respirations unlabored, tactile fremitus are normal B/L Chest Wall: No tenderness or deformity Heart: Regular rate and rhythm, S1, S2 normal, no murmur, rub or gallop, PMI is not displaced Abdomen: Soft, non-tender, bowel sounds active all four quadrants, no masses, no organomegaly Extremities: Extremities normal, atraumatic, no cyanosis or edema Pulses: 2+ and symmetric Skin: Skin color, texture, turgor normal, no rashes or lesions Lymph nodes: Cervical, supraclavicular, and axillary nodes normal Neurologic: Nonfocal Labs : Results from last 7 days Lab Units 03/02/25 0644 03/01/25 0609 02/28/25 0622 WBC x10E9/L 11.8* 10.9 9.2 HEMOGLOBIN g/dL 8.9* 8.7* 8.8* HEMATOCRIT % 29.1* 27.6* 28.5* PLATELETS X10E9/L 341 313 256 Results from last 7 days Lab Units 03/02/25 0644 03/01/25 0609 02/28/25 0622 POTASSIUM mmol/L 4.0 4.6 4.2 CHLORIDE mmol/L 108 107 104 CO2 mmol/L 22 24 26 BUN mg/dL 12 15 16 CREATININE mg/dL 0.84 0.86 0.84 CALCIUM mg/dL 7.9* 8.0* 8.1* Results from last 7 days Lab Units 03/02/25 0644 03/01/25 0609 02/28/25 0622 MAGNESIUM mg/dL 2.1 2.3 2.3 Results from last 7 days Lab Units 02/24/25 1728 INR 1.2 The note was completed using EMR. Every effort was made to ensure accuracy; however, inadvertent computerized logistics project manager errors may be present. Deena Branch MD * Kathy Disla APRN-ASSISTANT DIRECTOR OF [employer] - 03/02/2025 11:56 AM EDT Images from the original note were not included. Division of Infectious Diseases Progress Note Please contact us via Cupple chat. After hours, call [phone] Patient name: Caren Suarez Patient Today's Date and Time: 03/02/2025, 11:56 AM Admission Date: 02/25/2025 Primary Care Physician: Riya Diego MD Impression and Recommendations:: Leukocytosis Bacterial Peritonitis Ovarian Cystic Lesion, likely malignancy CT a/p demonstrated large partially solid and partially cystic lesion in the R adnexa measuring 16 x 12 x 11 cm and lower anterior abdominal soft tissue nodules, 2.5 cm solid R renal lesion and diffuse intraperitoneal fluid S/P paracentesis 02/28/2025 - nucleated cells are elevated at 1900 with neutrophil predominance (60%) - this is consistent with bacterial peritonitis Peritoneal fluid culture is pending Oncology is following - biopsy pending GI following - plan for EGD/colonoscopy 03/04/2025 Documented allergy to PCN Continue Ceftriaxone 2g IV daily and Flagyl 500 mg po BID pending results of culture Acute PE, with R heart strain Subjective Interval History:: Pt was seen and examined at bedside, chart/labs/diagnostics reviewed. No changes. No fever. WBC 11.8. No cultures growth yet. Tolerating current abx. No n/v. 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 Objective Physical Examination : BP 137/54 Pulse 76 Temp 36.4 ??C (97.6 ??F) (Oral) Resp 18 Ht 157.5 cm (5' 2.01 ) Wt 71.3kg (157 lb 3 oz) SpO2 93% BMI 28.74 kg/m?? Temperature Range: Temp: 36.4 ??C (97.6 ??F) Temp Av.7 ??C (98 ??F) Min: 36.4 ??C (97.6 ??F) Max: 36.9 ??C (98.4 ??F) Constitutional: Awake and alert Respiratory: equal air entry bilaterally, no distress, no wheezes, rhonchi, rales Cardiovascular: S1, S2, regular rate and rhythm, no murmurs, rubs, or gallops Gastrointestinal/Abdomen: Slightly distended and tender to palpation; soft Musculoskeletal/Extremities: No cyanosis, clubbing, edema, or effusions. Neurologic: Bulk and tone are normal. No atrophy is noted. Skin: warm, dry, no rashes or lesions noted Laboratory data: I have independently reviewed the following labs: Results from last 7 days Lab Units 03/02/25 0644 03/01/25 0609 02/28/25 0622 02/25/25 0713 02/24/25 1728 02/24/25 1544 WBC x10E9/L 11.8* 10.9 9.2 < > 20.6* 19.7* HEMOGLOBIN g/dL 8.9* 8.7* 8.8* < > 9.6* 9.6* HEMATOCRIT % 29.1* 27.6* 28.5* < > 31.6* 31.9* MCV fL 71* 70* 70* < > 69* 69* PLATELETS X10E9/L 341 313 256 < > 287 263 NEUTROS ABS 10*3/uL -- -- -- -- 19.4* 18.5* LYMPHS ABS AUTO 10*3/uL -- -- -- -- 0.4* 0.4* MONOS ABS AUTO 10*3/uL -- -- -- -- 0.6 0.7 EOS ABS AUTO 10*3/uL -- -- -- -- 0.0 0.0 BASOS ABS AUTO 10*3/uL -- -- -- -- 0.1 0.1 < > = values in this interval not displayed. Results from last 7 days Lab Units 03/02/25 0644 03/01/25 0609 02/28/25 0622 02/26/25 0259 02/24/25 1728 02/24/25 1544 SODIUM mmol/L 137 138 134 < > 132* 133* POTASSIUM mmol/L 4.0 4.6 4.2 < > 4.2 4.1 CHLORIDE mmol/L 108 107 104 < > 99 101 CO2 mmol/L 22 24 26 < > 21* 20* BUN mg/dL 12 15 16 < > 19 20 CREATININE mg/dL 0.84 0.86 0.84 < > 0.99 0.99 CALCIUM mg/dL 7.9* 8.0* 8.1* < > 8.3* 8.3* ALBUMIN g/dL -- -- -- -- 2.8* 2.8* ALK PHOS U/L -- -- -- -- 105 100 ALT U/L -- -- -- -- 15 15 AST U/L -- -- -- -- 21 24 < > = values in this interval not displayed. Results from last 7 days Lab Units 02/26/25 02502/24/25 1728 D DIMER ug/mL -- 7,187* FERRITIN ng/mL 78 -- LDH U/L 232 -- Results from last 7 days Lab Units 02/25/252025 COLOR UA Tripp* TURBIDITY Clear SPECIFIC GRAVITY, URINE 1.015 NITRITE UA Negative PH URINE 6.0 LEUKOCYTE ESTERASE Small* PROTEIN 50 mg/dL* KETONES (URINE) Negative UROBILINOGEN 2 eu/dL* BLOOD Large* R. B. CELLS 68* WBC UA 19* Imaging Studies: .CT Chest right sided PE . RLL atelectasis. No pneumonia CT chest abdomen and pelvis: diffuse free intraperitoneal fluid Cultures: Microbiology Results Procedure Component Value Units Date/Time Body fluid culture includes gram stain [[id number]] Collected: 02/28/25 1325 Specimen: Sterile Body Fluid from Abdomen Updated: 03/02/25 0646 CULTURE RESULTS NO GROWTH 2 DAYS GRAM STAIN White Blood Cells Present No organisms seen On Concentrated Smear Urine Culture Urine, Clean Catch Midstream [[id number]] Collected: 02/25/252025 Specimen: Urine, Clean Catch Midstream Updated: 02/26/25 1653 CULTURE RESULTS 10-50,000 ORGANISMS/mL NORMAL UROGENITAL YOLY Medications: cefTRIAXone (ROCEPHIN) IV, 2,000 mg, intravenous, Q24H cyanocobalamin, 1,000 mcg, intramuscular, Daily ferumoxytol, 510 mg, intravenous, Q3 Days metroNIDAZOLE, 500 mg, oral, Q12H JOSE pantoprazole, 40 mg, oral, QAM AC polyethylene glycol, 238 g, oral, Once sodium chloride, 3 mL, intravenous, Q12H JOSE [START ON 03/03/2025] sodium,potassium,mag sulfates, 177 mL, oral, Once AND [START ON 03/04/2025] sodium,potassium,mag sulfates, 177 mL, oral, Once Thank you for allowing us to participate in the care of this patient. Please call with questions. Kathy Disla APRN, ELLIOTT Pastrana 03/02/25 1458 * Fernanda Soliman MD - 03/02/2025 9:41 AM EDT Images from the original note were not included. Pulmonary Critical Care Progress Note Patient seen for the follow up of acute moderate right sided pulmonary emboli, acute DVT, right lower lobe infiltrate pulmonary nodules, previous smoker, ovarian mass, renal mass Subjective: Patient is sitting comfortably in bed. She admits to an occasional dry cough. Shortness of breath is at her baseline. No events noted overnight. She is on room air. Examination: Vitals: BP 137/54 Pulse 76 Temp 36.4 ??C (97.6 ??F) (Oral) Resp 18 Ht 157.5 cm (5' 2.01 ) Wt 71.3 kg (157 lb 3 oz) SpO2 93% BMI 28.74 kg/m?? General appearance: In no acute distress, alert and cooperative with exam, EOM I Neck: No JVD Lungs: Moderate air exchange, no wheezing or rhonchi Heart: regular rate and rhythm, S1, S2 normal, no gallop Abdomen: Soft, non tender, + BS, rounded Extremities: no cyanosis or clubbing. No significant edema, no skin rash or petechiae LABs: Results from last 7 days Lab Units 03/02/25 0644 03/01/25 0609 02/28/25 0622 WBC x10E9/L 11.8* 10.9 9.2 HEMOGLOBIN g/dL 8.9* 8.7* 8.8* HEMATOCRIT % 29.1* 27.6* 28.5* PLATELETS X10E9/L 341 313 256 Results from last 7 days Lab Units 03/02/25 0644 03/01/25 0609 02/28/25 0622 SODIUM mmol/L 137 138 134 POTASSIUM mmol/L 4.0 4.6 4.2 CHLORIDE mmol/L 108 107 104 CO2 mmol/L 22 24 26 BUN mg/dL 12 15 16 CREATININE mg/dL 0.84 0.86 0.84 CALCIUM mg/dL 7.9* 8.0* 8.1* Echo complete W/O contrast 02/26/2025 EF 60-65%. Systolic function is normal. There is trace to mild regurgitation. There is no evidence of aortic valve stenosis. Radiology: CT chest 02/25/25 Impression & Recommendations: Acute right-sided pulmonary emboli/acute DVT right femoropopliteal, tibioperoneal, deep calf, left deep calf muscle Heparin drip with plans to transition to DOAC after procedures are complete Echocardiogram with EF of 60-65%, normal right ventricular systolic function Right lower lobe infiltrate/Multiple pulmonary nodules, suspected metastasis Oncology consulted Infectious disease following, holding off on antibiotics at this time Ovarian mass/renal mass Gynecologic/oncology consulted/Medical oncology consulted, input noted Recommended GI evaluation given elevated tumor markers GI plan for EGD/colonoscopy 03/04/2025 Infectious Disease Ceftriaxone 2g IV daily and Flagyl 500 mg po BID pending results of culture S/p paracentesis and soft tissue nodule biopsy 02/28/2025 with removal of 1850 mL of ludivina ascites fluid Peritoneal fluid culture is pending Await pathology from tissue biopsy Transvaginal ultrasound: 18.2 x 16.3 x 11.2 cm, multiloculated, cystic and solid lesion in the pelvis Thin prep negative for malignancy, negative high-risk HPV Previous smoker, quit 12 years ago, 42 pack year history/Probable COPD Outpatient PFTs DVT prophylaxis with heparin infusion PUD prophylaxis with PPI Fernanda Soliman MD, [facility] Pulmonary Critical Care and Sleep Medicine, [facility] Office: [phone] The note was completed using EMR. Every effort was made to ensure accuracy; however, inadvertent computerized logistics project manager errors may be present. * Deena Branch MD - 03/01/2025 2:16 PM EDT Images from the original note were not included. 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 Monitor CBC BMP magnesium daily Acute PE/DVT CTA of chest reported moderate right-sided pulmonary emboli without evidence of heart strain Patient was restarted back on heparin infusion Echocardiogram showed normal ejection fraction, no evidence of right heart strain Pulmonary consulted Numerous pulmonary nodules likely metastasis Consult pulmonary General oncology consult Pulmonary consult Newly diagnosed Ovarian mass Gynecology/Oncology was consulted Status post paracentesis and soft tissue nodule biopsy today 02/28/2025 with removal of 1850 mL of ludivina ascites fluid OBGYN recommended GI evaluation giving elevated tumor markers, plan for EGD and colonoscopy on Monday. Patient is currently on Rocephin and Flagyl per ID. Urinary tract infection Urinalysis came back positive for UTI Urine culture came back negative History of tobacco abuse Quit 12 years ago, with a 42 year history of smoking Oral Protonix for GI prophylaxis No further pharmacological need for DVT prophylaxis Subjective PT Denied any nausea vomiting , no diarrhea , no constipation , no chest pain , no palpitation , noheadache, other systems were reviewed and were negative. HPI: Caren Suarez is an 69 y.o. White or female. came to the hospital with Abnormal test results. Patient states that she has been experiencing cold-like symptoms with to thepoint where she was having hard time breathing. She went to her PCP who placed her on steroids withno improvement. She then was on antibiotic therapy with still no improvement. 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 She also underwent venous duplex of bilateral lower extremities that reported rightacute DVT and left deep calf muscle vein DVT. she was Was then sent to the ER at [place] to be further evaluated and treated. She was transferred to [facility] for further evaluation and treatment. No significant past medical history of coronary artery disease, COPD diabetes or history of stroke.Patient does have a history of tobacco abuse quit 12 years ago Social History Tobacco Use Smoking Status Former Types: Cigarettes Smokeless Tobacco Never Social History Substance and Sexual Activity Alcohol Use Never Physical examination : BP 144/72 Pulse 91 Temp 36.6 ??C (97.8 ??F) (Oral) Resp 18 Ht 157.5 cm (5' 2.01 ) Wt 71.5kg (157 lb 10.1 oz) SpO2 96% BMI 28.82 kg/m?? General Appearance: Alert, cooperative, no distress. Head: Normocephalic, without obvious abnormality, atraumatic Eyes: PERRL, conjunctiva/corneas clear, EOM's intact Ears: Normal external ear canals, both ears Nose: Nares normal, septum midline, mucosa normal, no drainage or sinus tenderness Throat: Lips, mucosa, and tongue normal; teeth and gums normal Neck: Supple, symmetrical, trachea midline, no adenopathy, thyroid: not enlarged, symmetric, no tenderness/mass/nodules, no carotid bruit or JVD Lungs: Clear to auscultation bilaterally, respirations unlabored, tactile fremitus are normal B/L Chest Wall: No tenderness or deformity Heart: Regular rate and rhythm, S1, S2 normal, no murmur, rub or gallop, PMI is not displaced Abdomen: Soft, non-tender, bowel sounds active all four quadrants, no masses, no organomegaly Extremities: Extremities normal, atraumatic, no cyanosis or edema Pulses: 2+ and symmetric Skin: Skin color, texture, turgor normal, no rashes or lesions Lymph nodes: Cervical, supraclavicular, and axillary nodes normal Neurologic: Nonfocal Labs : Results from last 7 days Lab Units 03/01/25 0609 02/28/25 0622 02/27/25 0220 WBC x10E9/L 10.9 9.2 10.8 HEMOGLOBIN g/dL 8.7* 8.8* 8.5* HEMATOCRIT % 27.6* 28.5* 27.5* PLATELETS X10E9/L 313 256 243 Results from last 7 days Lab Units 03/01/25 0609 02/28/25 0622 02/27/25 0220 POTASSIUM mmol/L 4.6 4.2 4.1 CHLORIDE mmol/L 107 104 106 CO2 mmol/L 24 26 23 BUN mg/dL 15 16 21 CREATININE mg/dL 0.86 0.84 0.90 CALCIUM mg/dL 8.0* 8.1* 8.2* Results from last 7 days Lab Units 03/01/25 0609 02/28/25 0622 02/27/25 0220 MAGNESIUM mg/dL 2.3 2.3 2.3 Results from last 7 days Lab Units 02/24/25 1728 INR 1.2 The note was completed using EMR. Every effort was made to ensure accuracy; however, inadvertent computerized logistics project manager errors may be present. Deena Branch MD * Kathy Disla APRN-ASSISTANT DIRECTOR OF [employer] - 03/01/2025 12:02 PM EDT Images from the original note were not included. Division of Infectious Diseases Progress Note Please contact us via Cupple chat. After hours, call [phone] Patient name: Caren Suarez Patient Today's Date and Time: 03/01/2025, 12:02 PM Admission Date: 02/25/2025 Primary Care Physician: Riya Diego MD Impression and Recommendations:: Leukocytosis Bacterial Peritonitis Ovarian Cystic Lesion, likely malignancy CT a/p demonstrated large partially solid and partially cystic lesion in the R adnexa measuring 16 x 12 x 11 cm and lower anterior abdominal soft tissue nodules, 2.5 cm solid R renal lesion and diffuse intraperitoneal fluid S/P paracentesis 02/28/2025 - nucleated cells are elevated at 1900 with neutrophil predominance (60%) - this is consistent with bacterial peritonitis Peritoneal fluid culture is pending Oncology is following - biopsy pending GI following - plan for EGD/colonoscopy 03/04/2025 Documented allergy to PCN Initiate antibiotics with Ceftriaxone 2g IV daily and Flagyl 500 mg po BID pending results of culture Acute PE, with R heart strain Subjective Interval History:: Pt was seen and examined at bedside, chart/labs/diagnostics reviewed. Peritoneal fluid reviewed andis concerning for bacterial peritonitis. Starting abx today. Culture is pending. She denies SOB or significant cough. Abdomen is tender and distended still. Appetite is better today. POC reviewed andquestions answered to her satisfaction Objective Physical Examination : BP 116/46 Pulse 86 Temp 36.8 ??C (98.2 ??F) (Oral) Resp 20 Ht 157.5 cm (5' 2.01 ) Wt 71.5 kg (157 lb 10.1 oz) SpO2 94% BMI 28.82 kg/m?? Temperature Range: Temp: 36.8 ??C (98.2 ??F) Temp Av.5 ??C (97.7 ??F) Min: 36.3 ??C (97.4 ??F)Max: 36.8 ??C (98.2 ??F) Constitutional: Awake and alert Respiratory: equal air entry bilaterally, no distress, no wheezes, rhonchi, rales Cardiovascular: S1, S2, regular rate and rhythm, no murmurs, rubs, or gallops Gastrointestinal/Abdomen: Slightly distended and tender to palpation; soft Musculoskeletal/Extremities: No cyanosis, clubbing, edema, or effusions. Neurologic: Bulk and tone are normal. No atrophy is noted. Skin: warm, dry, no rashes or lesions noted Laboratory data: I have independently reviewed the following labs: Results from last 7 days Lab Units 03/01/25 0609 02/28/25 0622 02/27/25 0220 02/25/25 0713 02/24/25 1728 02/24/25 1544 WBC x10E9/L 10.9 9.2 10.8 < > 20.6* 19.7* HEMOGLOBIN g/dL 8.7* 8.8* 8.5* < > 9.6* 9.6* HEMATOCRIT % 27.6* 28.5* 27.5* < > 31.6* 31.9* MCV fL 70* 70* 70* < > 69* 69* PLATELETS X10E9/L 313 256 243 < > 287 263 NEUTROS ABS 10*3/uL -- -- -- -- 19.4* 18.5* LYMPHS ABS AUTO 10*3/uL -- -- -- -- 0.4* 0.4* MONOS ABS AUTO 10*3/uL -- -- -- -- 0.6 0.7 EOS ABS AUTO 10*3/uL -- -- -- -- 0.0 0.0 BASOS ABS AUTO 10*3/uL -- -- -- -- 0.1 0.1 < > = values in this interval not displayed. Results from last 7 days Lab Units 03/01/25 0609 02/28/25 0622 02/27/25 02202/26/25 02502/24/25 1728 02/24/25 1544 SODIUM mmol/L 138 134 136 < > 132* 133* POTASSIUM mmol/L 4.6 4.2 4.1 < > 4.2 4.1 CHLORIDE mmol/L 107 104 106 < > 99 101 CO2 mmol/L 24 26 23 < > 21* 20* BUN mg/dL 15 16 21 < > 19 20 CREATININE mg/dL 0.86 0.84 0.90 < > 0.99 0.99 CALCIUM mg/dL 8.0* 8.1* 8.2* < > 8.3* 8.3* ALBUMIN g/dL -- -- -- -- 2.8* 2.8* ALK PHOS U/L -- -- -- -- 105 100 ALT U/L -- -- -- -- 15 15 AST U/L -- -- -- -- 21 24 < > = values in this interval not displayed. Results from last 7 days Lab Units 02/26/25 02502/24/25 1728 D DIMER ug/mL -- 7,187* FERRITIN ng/mL 78 -- LDH U/L 232 -- Results from last 7 days Lab Units 02/25/252025 COLOR UA Tripp* TURBIDITY Clear SPECIFIC GRAVITY, URINE 1.015 NITRITE UA Negative PH URINE 6.0 LEUKOCYTE ESTERASE Small* PROTEIN 50 mg/dL* KETONES (URINE) Negative UROBILINOGEN 2 eu/dL* BLOOD Large* R. B. CELLS 68* WBC UA 19* Imaging Studies: .CT Chest right sided PE . RLL atelectasis. No pneumonia CT chest abdomen and pelvis: diffuse free intraperitoneal fluid Cultures: Microbiology Results Procedure Component Value Units Date/Time Body fluid culture includes gram stain [[id number]] Collected: 02/28/25 1325 Specimen: Sterile Body Fluid from Abdomen Updated: 03/01/25 1138 CULTURE RESULTS NO GROWTH 1 DAY GRAM STAIN White Blood Cells Present No organisms seen On Concentrated Smear Urine Culture Urine, Clean Catch Midstream [[id number]] Collected: 02/25/252025 Specimen: Urine, Clean Catch Midstream Updated: 02/26/25 1653 CULTURE RESULTS 10-50,000 ORGANISMS/mL NORMAL UROGENITAL YOLY Medications: cyanocobalamin, 1,000 mcg, intramuscular, Daily ferumoxytol, 510 mg, intravenous, Q3 Days pantoprazole, 40 mg, oral, QAM AC sodium chloride, 3 mL, intravenous, Q12H JOSE Thank you for allowing us to participate in the care of this patient. Please call with questions. Kathy Disla APRN, ELLIOTT Pastrana 03/01/25 1643 * Fernanda Soliman MD - 03/01/2025 10:19 AM EDT Images from the original note were not included. Pulmonary Critical Care Progress Note Patient seen for the follow up of acute moderate right sided pulmonary emboli, acute DVT, right lower lobe infiltrate pulmonary nodules, previous smoker, ovarian mass, renal mass Subjective: Patient is sitting comfortably in bed visiting with family. No events noted overnight. She denies shortness of breath. She admits to occasional dry cough. No chest pain. Examination: Vitals: BP 116/46 Pulse 86 Temp 36.8 ??C (98.2 ??F) (Oral) Resp 20 Ht 157.5 cm (5' 2.01 ) Wt 71.5 kg (157 lb 10.1 oz) SpO2 94% BMI 28.82 kg/m?? General appearance: In no acute distress, alert and cooperative with exam, EOM I Neck: No JVD Lungs: Moderate air exchange, no wheezing or rhonchi Heart: regular rate and rhythm, S1, S2 normal, no gallop Abdomen: Soft, non tender, + BS, rounded Extremities: no cyanosis or clubbing. No significant edema, no skin rash or petechiae LABs: Results from last 7 days Lab Units 03/01/25 0609 02/28/25 0622 02/27/25 0220 WBC x10E9/L 10.9 9.2 10.8 HEMOGLOBIN g/dL 8.7* 8.8* 8.5* HEMATOCRIT % 27.6* 28.5* 27.5* PLATELETS X10E9/L 313 256 243 Results from last 7 days Lab Units 03/01/25 0609 02/28/25 0622 02/27/25 0220 SODIUM mmol/L 138 134 136 POTASSIUM mmol/L 4.6 4.2 4.1 CHLORIDE mmol/L 107 104 106 CO2 mmol/L 24 26 23 BUN mg/dL 15 16 21 CREATININE mg/dL 0.86 0.84 0.90 CALCIUM mg/dL 8.0* 8.1* 8.2* Echo complete W/O contrast 02/26/2025 EF 60-65%. Systolic function is normal. There is trace to mild regurgitation. There is no evidence of aortic valve stenosis. Radiology: CT chest 02/25/25 Impression & Recommendations: Acute right-sided pulmonary emboli/acute DVT right femoropopliteal, tibioperoneal, deep calf, left deep calf muscle Heparin drip with plans to transition to DOAC after invasive procedures are complete Echocardiogram with EF of 60-65%, normal right ventricular systolic function Right lower lobe infiltrate/Multiple pulmonary nodules, suspected metastasis Oncology consulted Infectious disease following, holding off on antibiotics at this time Ovarian mass/renal mass Gynecologic/oncology consulted Medical oncology consulted, input noted S/p paracentesis and soft tissue nodule biopsy 02/28/2025 with removal of 1850 mL of ludivina ascites fluid Await pathology from tissue biopsy Transvaginal ultrasound: 18.2 x 16.3 x 11.2 cm, multiloculated, cystic and solid lesion in the pelvis Thin prep negative for malignancy, negative high-risk HPV Previous smoker, quit 12 years ago, 42 pack year history/Probable COPD Outpatient PFTs DVT prophylaxis with heparin infusion PUD prophylaxis with PPI Fernanda Soliman MD, [facility] Pulmonary Critical Care and Sleep Medicine, [facility] Office: [phone] The note was completed using EMR. Every effort was made to ensure accuracy; however, inadvertent computerized logistics project manager errors may be present. * Deena Branch MD - 02/28/2025 6:19 PM EDT Images from the original note were not included. 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 Monitor CBC BMP magnesium daily Acute PE/DVT CTA of chest reported moderate right-sided pulmonary emboli without evidence of heart strain Patient was restarted back on her heparin infusion Obtain echocardiogram Pulmonary consulted Numerous pulmonary nodules likely metastasis Consult pulmonary General oncology consult Pulmonary consult Newly diagnosed Ovarian mass Gynecology/Oncology was consulted Status post paracentesis and soft tissue nodule biopsy today 02/28/2025 with removal of 1850 mL of ludivina ascites fluid Urinary tract infection Urinalysis came back positive for UTI Follow urine culture Started on IV ceftriaxone History of tobacco abuse Quit 12 years ago, with a 42 year history of smoking Oral Protonix for GI prophylaxis No further pharmacological need for DVT prophylaxis Subjective PT Denied any nausea vomiting , no diarrhea , no constipation , no chest pain , no palpitation , noheadache, other systems were reviewed and were negative. HPI: Caren Suarez is an 69 y.o. White or female. came to the hospital with Abnormal test results. Patient states that she has been experiencing cold-like symptoms with to thepoint where she was having hard time breathing. She went to her PCP who placed her on steroids withno improvement. She then was on antibiotic therapy with still no improvement. 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 She also underwent venous duplex of bilateral lower extremities that reported rightacute DVT and left deep calf muscle vein DVT. she was Was then sent to the ER at [place] to be further evaluated and treated. She was transferred to [facility] for further evaluation and treatment. No significant past medical history of coronary artery disease, COPD diabetes or history of stroke.Patient does have a history of tobacco abuse quit 12 years ago Social History Tobacco Use Smoking Status Former Types: Cigarettes Smokeless Tobacco Never Social History Substance and Sexual Activity Alcohol Use Never Physical examination : BP 156/82 Pulse 94 Temp 36.4 ??C (97.5 ??F) (Oral) Resp 18 Ht 157.5 cm (5' 2.01 ) Wt 69.1kg (152 lb 5.4 oz) SpO2 92% BMI 27.86 kg/m?? General Appearance: Alert, cooperative, no distress. Head: Normocephalic, without obvious abnormality, atraumatic Eyes: PERRL, conjunctiva/corneas clear, EOM's intact Ears: Normal external ear canals, both ears Nose: Nares normal, septum midline, mucosa normal, no drainage or sinus tenderness Throat: Lips, mucosa, and tongue normal; teeth and gums normal Neck: Supple, symmetrical, trachea midline, no adenopathy, thyroid: not enlarged, symmetric, no tenderness/mass/nodules, no carotid bruit or JVD Lungs: Clear to auscultation bilaterally, respirations unlabored, tactile fremitus are normal B/L Chest Wall: No tenderness or deformity Heart: Regular rate and rhythm, S1, S2 normal, no murmur, rub or gallop, PMI is not displaced Abdomen: Soft, non-tender, bowel sounds active all four quadrants, no masses, no organomegaly Extremities: Extremities normal, atraumatic, no cyanosis or edema Pulses: 2+ and symmetric Skin: Skin color, texture, turgor normal, no rashes or lesions Lymph nodes: Cervical, supraclavicular, and axillary nodes normal Neurologic: Nonfocal Labs : Results from last 7 days Lab Units 02/28/25 62102/27/2521902/26/25 0259 WBC x10E9/L 9.2 10.8 12.5* HEMOGLOBIN g/dL 8.8* 8.5* 8.9* HEMATOCRIT % 28.5* 27.5* 29.0* PLATELETS X10E9/L 256 243 231 Results from last 7 days Lab Units 02/28/2562102/27/2521902/26/25 0259 POTASSIUM mmol/L 4.2 4.1 4.0 CHLORIDE mmol/L 104 106 102 CO2 mmol/L 26 23 23 BUN mg/dL 16 21 21 CREATININE mg/dL 0.84 0.90 0.93 CALCIUM mg/dL 8.1* 8.2* 8.1* Results from last 7 days Lab Units 02/28/2562102/27/2521902/26/25 0259 MAGNESIUM mg/dL 2.3 2.3 2.4 Results from last 7 days Lab Units 02/24/25 1728 INR 1.2 The note was completed using EMR. Every effort was made to ensure accuracy; however, inadvertent computerized logistics project manager errors may be present. Deena Branch MD * JHONATAN Lr - 02/28/2025 2:27 PM EDT NUTRITION ADULT INITIAL EVALUATION NUTRITION ASSESSMENT: Reason to be seen: nutrition screen poor PO Patient History: Admit Diagnosis: Patient Active Problem List Diagnosis DVT (deep venous thrombosis) ([facility]) Colon cancer screening Past Medical History: Past Medical History: Diagnosis Date Deep vein thrombosis (CMS-HCC) Past Surgical History:No past surgical history on file. Brief Clinical Summary: Patient presented with abnormal CT AP and cold-like symptoms/difficulty breathing. Admitted for treatment. PMHx includes DVT. Biochemical Data, Medical Tests, and Procedures: 02/24 CT AP: ovarian lesion, renal lesion, pulmonary lesions - likely mets 02/28 IR paracentesis (-1850mL removed) EGD planned 03/04 Labs: Results from last 3 days Lab Units 02/28/2562102/27/2521927/25 0259 SODIUM mmol/L 134 136 133* POTASSIUM mmol/L 4.2 4.1 4.0 CHLORIDE mmol/L 104 106 102 CO2 mmol/L 26 23 23 BUN mg/dL 16 21 21 CREATININE mg/dL 0.84 0.90 0.93 CALCIUM mg/dL 8.1* 8.2* 8.1* Results from last 7 days Lab Units 02/28/25 0602/27/2521902/26/25 0259 02/24/25 1728 02/24/25 1544 GLUCOSE mg/dL 80 110* 93 132* 132* Results from last 3 days Lab Units 02/28/2562102/27/2521902/26/25 025 WBC x10E9/L 9.2 10.8 12.5* HEMOGLOBIN g/dL 8.8* 8.5* 8.9* HEMATOCRIT % 28.5* 27.5* 29.0* PLATELETS X10E9/L 256 243 231 MCV fL 70* 70* 70* Results from last 3 days Lab Units 02/28/2562102/27/2521902/26/25258 MAGNESIUM mg/dL 2.3 2.3 2.4 No data from last 3 days. Results from last 3 days Lab Units 02/25/252025 BILIRUBIN URINE Negative No results found for: HGBA1C Lab Results Component Value Date IRON 12 (L) 02/26/2025 TIBC 321 02/26/2025 FERRITIN 78 02/26/2025 Lab Results Component Value Date IRONSAT 4 (L) 02/26/2025 No results found for: CHOL No results found for: CHDL No results found for: HDL No results found for: LDLCALC No results found for: TRIG No results found for: VERYLOWLIP Lab Results Component Value Date XPVXJPSH50 110 (L) 02/26/2025 Lab Results Component Value Date FOLATE 3.3 (L) 02/26/2025 No results found for: VITD25 Comments (labs): WNL Medications/ Parenteral: B12, protonix No medications prior to admission. Current Facility-Administered Medications Medication Dose Route Frequency Provider Last Rate Last Admin acetaminophen (TYLENOL) tablet 650 mg 650 mg oral Q6H PRN Neelima Ta APRN-ASSISTANT DIRECTOR [employer] cyanocobalamin (VITAMIN B-12) injection 1,000 mcg 1,000 mcg intramuscular Daily ELLIOTT Christina 1,000 mcg at 02/28/25 0723 dextrose (GLUTOSE) 40 % gel 15 g 15 g oral PRN ELLIOTT Yoo dextrose 5 % (D5W) infusion 100 mL/hr intravenous Continuous PRN ELLIOTT Yoo dextrose 50 % in water (D50W) 50% solution 25 mL 25 mL intravenous PRN Neelima Ta APRN-DUYEN fentaNYL (SUBLIMAZE) injection intravenous Code/Trauma/Sedation Med Deena Palma MD 100 mcg at02/28/25 1415 ferumoxytoL (FERAHEME) 510 mg in sodium chloride 0.9 % 100 mL IVPB 510 mg intravenous Q3 Days ELLIOTT Maria Stopped at 02/27/25 1357 glucagon HCL injection 1 mg 1 mg intramuscular PRN ELLIOTT Yoo heparin (porcine) injection 5,000 Units 5,000 Units intravenous PRN ELLIOTT Patrick 5,000 Units at 02/26/25 0502 heparin infusion 24245 units/500 mL in 0.45% NaCl (50 units/mL premix) 300-3,500 Units/hr intravenous Continuous ELLIOTT Yoo 23 mL/hr at 02/27/25 1331 1,150 Units/hr at 02/27/25 1331 lidocaine PF (XYLOCAINE) 10 mg/mL (1 %) injection infiltration Code/Trauma/Sedation Med Deena Palma MD 10 mL at 02/28/25 1423 magnesium sulfate IVPB 2000 mg/50 mL in iso-osmotic water (40 mg/mL premix) 2,000 mg intravenous PRN Neelima Ta APRN-DUYEN magnesium sulfate IVPB 4000 mg/100 mL in iso-osmotic water (40 mg/mL premix) 4,000 mg intravenous PRN Neelima Ta APRN-DUYEN ondansetron (PF) (ZOFRAN) injection 4 mg 4 mg intravenous Q4H PRN Neelima Ta APRN-DUYEN pantoprazole (PROTONIX) EC tablet 40 mg 40 mg oral QAM AC Neelima Ta, STUDENT TRUCK [employer]IVER- ASSISTANT DIRECTOR OF [employer] 40 mg at 02/28/25 0731 potassium chloride (K-TAB,KLOR-CON) CR tablet 30-50 mEq 30-50 mEq oral PRN Neelima R Ta, STUDENT TRUCK DRIVER-ASSISTANT [employer] Or potassium chloride (KAYCIEL) 20 mEq/15 mL solution 30-50 mEq 30-50 mEq oral PRN Neelima R Ta, STUDENT TRUCK DRIVER-ASSISTANT [employer] Or potassium chloride IVPB 10 mEq/100 mL in water (0.1 mEq/mL premix) 10 mEq intravenous PRN Neelima R Keyon, STUDENT TRUCK DRIVER-ASSISTANT [employer] sennosides-docusate sodium (SENOKOT-S) 8.6-50 mg 1 tablet 1 tablet oral Q12H PRN Neelima R Keyon, STUDENT TRUCK DRIVER-ASSISTANT [employer] sodium chloride 0.9 % flush 10 mL 10 mL intravenous PRN Deena Branch MD 10 mL at 02/25/25 1857 sodium chloride 0.9 % flush 3 mL 3 mL intravenous PRN Neelima R Keyon, STUDENT TRUCK DRIVER-ASSISTANT [employer] sodium chloride 0.9 % flush 3 mL 3 mL intravenous Q12H JOSE Neelima Serge Ta, STUDENT TRUCK DRIVER-ASSISTANT [employer] 3 mL at 02/28/25 0846 sodium chloride 0.9 % flush bag 25 mL intravenous PRN Neelima R Keyon, STUDENT TRUCK DRIVER-ASSISTANT [employer] sodium chloride 0.9 % infusion 20 mL/hr intravenous Continuous PRN Neelima Serge Ta STUDENT TRUCK DRIVER-ASSISTANT [employer] Nutrition Focused Physical Findings Last BM not documented Extremities, Muscles, and Bones Assess at f/u, patient in IR Skin (per nursing flow sheets): Skin Color: [place] (02/28/25799) Skin Temp: Warm; Dry (02/28/25799) Wound (per nursing flow sheets): Gastrointestinal (per nursing flow sheets): Abdomen Assessment: Soft; Distended; Tenderness (02/28/25799) Passing Flatus: Yes (02/28/25799) RUQ Bowel Sounds: Active (02/28/25 08) LUQ Bowel Sounds: Active (02/28/25 08) RLQ Bowel Sounds: Active (02/28/25799) LLQ Bowel Sounds: Active (02/28/25799) GI Symptoms: Distention (08/29/25 0800) Edema (per nursing flow sheets): RLE Edema: +2 (02/28/25 0800) LLE Edema: +1 (02/28/25 0800) Intake/ Output Last 24 hrs: No intake or output data in the 24 hours ending 02/28/25 1428 Food/Nutrition Related History: Diet History: Assess at f/u, patient in IR Allergies: Allergies Allergen Reactions Penicillin Diet/ Nutrition Order Review: Dietary Orders (From admission, onward) Start Ordered 02/28/25 1010 Adult diet Regular Texture Diet effective now Question: Diet Type: Answer: Regular Texture 02/28/25 1009 Diet Intakes: no PO % documented - fair appetite noted in flowsheet Oral Supplemental Intake/ Acceptance: none ordered Anthropometrics: Ht Readings from Last 1 Encounters: 02/25/25 157.5 cm (5' 2.01 ) Wt Readings from Last 20 Encounters: 02/28/25 69.1 kg (152 lb 5.4 oz) 02/24/25 74.4 kg (164 lb) Last 3 Weight Readings 02/26/25 0016 02/27/25 0313 02/28/25 0500 Weight: 74.8 kg (164 lb 14.5 oz) 75.2 kg (165 lb 12.6 oz) 69.1 kg (152 lb 5.4 oz) Admit Weight: 74.8 kg (Standing Scale, 02/26) Usual Body Weight: Assess at f/u, patient in IR [place] Body Weight: 50 kg Weight Changes: monitoring Body Mass Index: Body mass index is 27.86 kg/m??. BMI Category: Pre-obese (25.00- 29.99) Comparative Standards: Estimated Energy Needs: 1806-4521 kcals daily. Method and weight used: 25-30 kcal/kg IBW Estimated Protein Needs: 60-100 grams daily. Method and weight used: 1.2-2g protein/kg IBW Estimated Fluid Needs: 9588-8903 ml daily. Method weight used: 1mL/kcal Comments: floor needs, higher end for cancer Malnutrition Status: Malnutrition Present: Need more info NUTRITION DIAGNOSIS: No Diagnosis: No nutrition diagnosis at this time (NO 1.1) NUTRITION INTERVENTIONS: Continue current diet order, encourage PO intake RECOMMENDATIONS: Document daily PO % in flowsheet for ongoing nutrition assessment GOAL(S): Meet estimated calorie and protein needs. NUTRITION MONITORING AND EVALUATION: PO intakes, weight trend, labs, POC and overall status. Jes Russell RD, LD Clinical Dietitian Direct Line * Dominga Calderon, STUDENT TRUCK DRIVER-ASSISTANT DIRECTOR OF RESIDENCE LIFE - 02/28/2025 10:36 AM EDT Images from the original note were not included. Pulmonary Critical Care Progress Note Patient seen for the follow up of acute moderate right sided pulmonary emboli, acute DVT, right lower lobe infiltrate pulmonary nodules, previous smoker, ovarian mass, renal mass Subjective: Patient is sitting comfortably in bed. No acute overnight events noted. She denies chest pain and cough. She is on room air. She has been using her incentive spirometer this morning. Examination: Vitals: BP 155/69 Pulse 82 Temp 36.7 ??C (98 ??F) (Oral) Resp 17 Ht 157.5 cm (5' 2.01 ) Wt 69.1 kg (152 lb 5.4 oz) SpO2 95% BMI 27.86 kg/m?? General appearance: In no acute distress, alert and cooperative with exam, EOM I Neck: No JVD Lungs: Moderate air exchange, no wheezing or rhonchi Heart: regular rate and rhythm, S1, S2 normal, no gallop Abdomen: Soft, non tender, + BS, rounded Extremities: no cyanosis or clubbing. No significant edema, no skin rash or petechiae LABs: Results from last 7 days Lab Units 02/28/2562102/27/2521902/26/25 0259 WBC x10E9/L 9.2 10.8 12.5* HEMOGLOBIN g/dL 8.8* 8.5* 8.9* HEMATOCRIT % 28.5* 27.5* 29.0* PLATELETS X10E9/L 256 243 231 Results from last 7 days Lab Units 02/28/2562102/27/2521902/26/25 0259 SODIUM mmol/L 134 136 133* POTASSIUM mmol/L 4.2 4.1 4.0 CHLORIDE mmol/L 104 106 102 CO2 mmol/L 26 23 23 BUN mg/dL 16 21 21 CREATININE mg/dL 0.84 0.90 0.93 CALCIUM mg/dL 8.1* 8.2* 8.1* Echo complete W/O contrast Result Date: 02/26/2025 Left Ventricle: Left ventricle is small. Systolic function is normal with an ejection fraction of 60-65%. No segmental wall motion abnormalities. Grade I diastolic dysfunction (impaired relaxation) is present. Lateral E' is 11.70 cm/s. Medial E' is 7.94 cm/s. Right Ventricle: Right ventricular sizeappears normal. The right ventricular basal diameter is 22.0 mm. Systolic function is normal. Aortic Valve: There is trace to mild regurgitation. There is no evidence of aortic valve stenosis. Radiology: CT chest 02/25/25 Impression & Recommendations: Acute moderate right-sided pulmonary emboli/acute DVT right femoropopliteal, tibioperoneal, deep calf, left deep calf muscle Heparin drip with plans to transition to DOAC after invasive procedures are complete Echocardiogram with EF of 60-65%, normal right ventricular systolic function Right lower lobe infiltrate/Pulmonary nodules, suspected metastasis/previous smoker, quit 12 years ago, 42 pack year history Outpatient PFTs Multiple bilateral small pulmonary nodules Oncology consulted Infectious disease following, holding off on antibiotics at this time Ovarian mass/renal mass Gynecologic/oncology consulted Medical oncology consulted, input noted Plan for paracentesis and biopsy of soft tissue nodules in IR Transvaginal ultrasound pending Thin prep negative for malignancy, negative high-risk HPV DVT prophylaxis with heparin infusion PUD prophylaxis with PPI Dominga Calderon APRN, CNP Pulmonary, Critical Care and Sleep Medicine [facility] Office: [phone] Plan of care discussed with ELLIOTT Saunders 02/28/25 1259 Cosigned by Fernanda Soliman MD at 02/28/2025 12:59 PM EDT * ELLIOTT Connelly - 02/28/2025 9:54 AM EDT Images from the original note were not included. Division of Infectious Diseases Progress note Academic Team Please contact us via Cupple chat. After hours, call [phone] Patient name: Caren Suarez Patient Today's Date and Time: 02/28/2025, 9:54 AM Admission Date: 02/25/2025 Primary Care Physician: Riya Diego MD Impression and Recommendations:: Leukocytosis Ovarian cystic lesion, likely malignancy Intraperitoneal free fluid Acute PE without right heart strain No urinary symptoms. Urine culture negative CT chest noted with RLL infiltrate vs atelectasis, she has no pulmonary symptoms. IR consulted for biopsy and paracentesis given intraperitoneal free air. She does wear report some abdominal discomfort today and abdominal distention. Body fluid cell count ordered. follow-up paracentesis. Low suspicion for peritonitis Continue to monitor off antibiotics GI consulted needs EGD and colonoscopy Subjective Interval History:: Pt seen at bedside. She remains off antibiotics. White count is 9.2. Her abdomen is a little distended and a little tender today. She needs a paracentesis. She is drinking valve prep for her colonoscopy. Overall does not feel any worse Objective Physical Examination : BP 155/69 Pulse 82 Temp 36.7 ??C (98 ??F) (Oral) Resp 17 Ht 157.5 cm (5' 2.01 ) Wt 69.1 kg (152 lb 5.4 oz) SpO2 95% BMI 27.86 kg/m?? Temperature Range: Temp: 36.7 ??C (98 ??F) Temp Av.6 ??C (97.9 ??F) Min: 36.4 ??C (97.5 ??F) Max: 36.7 ??C (98.1 ??F) Constitutional: Awake and alert Cardiovascular: S1, S2, regular rate and rhythm, no murmurs, rubs, or gallops Respiratory: equal air entry bilaterally, no distress, no wheezes, rhonchi, rales Gastrointestinal/Abdomen: Slightly distended and a little bit of tenderness Musculoskeletal/Extremities: No cyanosis, clubbing, edema, or effusions. Skin: warm, dry, no rashes or lesions noted Neurologic: Bulk and tone are normal. No atrophy is noted. Laboratory data: I have independently reviewed the following labs: Results from last 7 days Lab Units 02/28/2562102/27/2521902/26/2525802/25/25 0713 02/24/25 1728 02/24/25 1544 WBC x10E9/L 9.2 10.8 12.5* -- 20.6* 19.7* HEMOGLOBIN g/dL 8.8* 8.5* 8.9* < > 9.6* 9.6* HEMATOCRIT % 28.5* 27.5* 29.0* -- 31.6* 31.9* MCV fL 70* 70* 70* -- 69* 69* PLATELETS X10E9/L 256 243 231 < > 287 263 NEUTROS ABS 10*3/uL -- -- -- -- 19.4* 18.5* LYMPHS ABS AUTO 10*3/uL -- -- -- -- 0.4* 0.4* MONOS ABS AUTO 10*3/uL -- -- -- -- 0.6 0.7 EOS ABS AUTO 10*3/uL -- -- -- -- 0.0 0.0 BASOS ABS AUTO 10*3/uL -- -- -- -- 0.1 0.1 < > = values in this interval not displayed. Results from last 7 days Lab Units 02/28/2562102/27/2521902/26/2525802/24/25172702/24/25 1544 SODIUM mmol/L 134 136 133* 132* 133* POTASSIUM mmol/L 4.2 4.1 4.0 4.2 4.1 CHLORIDE mmol/L 104 106 102 99 101 CO2 mmol/L 26 23 23 21* 20* BUN mg/dL 16 21 21 19 20 CREATININE mg/dL 0.84 0.90 0.93 0.99 0.99 CALCIUM mg/dL 8.1* 8.2* 8.1* 8.3* 8.3* ALBUMIN g/dL -- -- -- 2.8* 2.8* ALK PHOS U/L -- -- -- 105 100 ALT U/L -- -- -- 15 15 AST U/L -- -- -- 21 24 Results from last 7 days Lab Units 02/26/25 0259 02/24/25 1728 D DIMER ug/mL -- 7,187* FERRITIN ng/mL 78 -- LDH U/L 232 -- Results from last 7 days Lab Units 02/25/252025 COLOR UA Tripp* TURBIDITY Clear SPECIFIC GRAVITY, URINE 1.015 NITRITE UA Negative PH URINE 6.0 LEUKOCYTE ESTERASE Small* PROTEIN 50 mg/dL* KETONES (URINE) Negative UROBILINOGEN 2 eu/dL* BLOOD Large* R. B. CELLS 68* WBC UA 19* Imaging Studies: .CT Chest right sided PE . RLL atelectasis. No pneumonia CT chest abdomen and pelvis: diffuse free intraperitoneal fluid Cultures: Microbiology Results Procedure Component Value Units Date/Time Urine Culture Urine, Clean Catch Midstream [[id number]] Collected: 02/25/252025 Specimen: Urine, Clean Catch Midstream Updated: 02/26/251652 CULTURE RESULTS 10-50,000 ORGANISMS/mL NORMAL UROGENITAL YOLY Medications: cyanocobalamin, 1,000 mcg, intramuscular, Daily ferumoxytol, 510 mg, intravenous, Q3 Days pantoprazole, 40 mg, oral, QAM AC sodium chloride, 3 mL, intravenous, Q12H JOSE Thank you for allowing us to participate in the care of this patient. Please call with questions. Vonda Polanco DNP, CNP From 7AM-7PM: From 7AM-7PM: Please use [employer]oola for communication From 7PM-7AM: Please call for our answering service. ELLIOTT Connelly 02/28/25 0956 * ELLIOTT Christina - 02/28/2025 8:34 AM EDT Images from the original note were not included. [facility] Hematology and Oncology - Daily Progress Note 02/28/2025, 8:35 AM Impression/Plan: Metastatic Disease, Clinically -Favoring ovarian primary until proven otherwise -CT a/p showed large partially solid and partially cystic lesion in the right adnexa measuring 16 cm x 12 cm x 11 cm + lower anterior abdominal soft tissue nodules + 2.5 cm solid R renal lesion + diffuse intraperitoneal fluid -CTA chest revealed numerous pulmonary nodules -[id number], EB8=492, CEA=24.6, CA 19-9 WNL -FIELD MECHANIC/SITE LEAD/ONC following -TVUS still pending -IR consulted for paracentesis and biopsy of soft tissue nodules, not yet completed -Await pathology results -Urology following for recs re: renal lesion PE/DVT -Likely provoked by metastatic malignancy -CTA shows Moderate right sided pulmonary emboli without evidence of right heart strain -Dopplers revealing acute R femoropopliteal, deep tibioperoneal, and deep calf muscle DVT + L deep calf muscle DVT -On heparin gtt, likely transition to DOAC prior to discharge Anemia -Stable. Multifactorial due to severe B12 deficiency, Iron deficiency anemia in setting of vaginal bleeding d/t #1, acute infection -Hgb=8.8(8.5, 8.9, 9.1) microcytic -IV iron ordered -IM B12 ordered -No hemolysis -EGD/colonoscopy 02/28 -Transfuse for hgb<7 -Will arrange follow up with our office for ongoing management of this UTI -On IV antibiotics -As per other services Continue management of other medical problems as per appropriate services. Patient discussed with Dr. Romero. Please call with questions. Interval History: Patient seen and examined at bedside. She maintains complaints of abdominal distention, worsening abdominal tenderness. Still intermittently bleeding vaginally and rectally per report. Anemia is stable. No overt bleeding. No fevers. Still awaiting multiple procedures as discussed above. Tolerating IV iron without issue. VSS, maintained on room air without issue. Physical Examination : Temp: [36.4 ??C (97.5 ??F)-36.7 ??C (98.1 ??F)] 36.7 ??C (98 ??F) Pulse: [78-96] 82 Resp: [16-18] 17 BP: (131-155)/(55-88) 155/69 SpO2: [92 %-98 %] 95 % O2 Device: None (Room air) O2 Flow Rate (L/min): [0 L/min] 0 L/min Temperature Range: Temp: 36.7 ??C (98 ??F) Temp Av.6 ??C (97.9 ??F) Min: 36.4 ??C (97.5 ??F) Max: 36.7 ??C (98.1 ??F) Weight change: -6.1 kg (-13 lb 7.2 oz) Physical Exam Vitals and nursing note reviewed. Constitutional: General: She is not in acute distress. Appearance: Normal appearance. She is normal weight. She is not ill-appearing or toxic-appearing. HENT: Head: Normocephalic and atraumatic. Right Ear: External ear normal. Left Ear: External ear normal. Nose: Nose normal. Mouth/Throat: Mouth: Mucous membranes are moist. Pharynx: Oropharynx is clear. Eyes: General: No scleral icterus. Extraocular Movements: Extraocular movements intact. Pupils: Pupils are equal, round Cardiovascular: Rate and Rhythm: Normal rate and regular rhythm. Pulmonary: Effort: Pulmonary effort is normal. No respiratory distress. Abdominal: General: There is distension. Tenderness: There is abdominal tenderness. There is guarding. Musculoskeletal: General: Normal range of motion. Cervical back: Normal range of motion and neck supple. Right lower leg: No edema. Left lower leg: No edema. Skin: General: Skin is warm and dry. Coloration: Skin is not jaundiced. Findings: No bruising or lesion. Neurological: General: No focal deficit present. Mental Status: She is alert and oriented to person, place, and time. Mental status is at baseline. Cranial Nerves: No cranial nerve deficit. Motor: No weakness. Gait: Gait normal. Psychiatric: Mood and Affect: Mood normal. Behavior: Behavior normal. Thought Content: Thought content normal. Judgment: Judgment normal. Laboratory data: Results from last 7 days Lab Units 02/28/25 0622 02/27/25 0220 02/26/25 0259 02/25/25 0713 02/24/25 1728 02/24/25 1544 WBC x10E9/L 9.2 10.8 12.5* -- 20.6* 19.7* HEMOGLOBIN g/dL 8.8* 8.5* 8.9* < > 9.6* 9.6* HEMATOCRIT % 28.5* 27.5* 29.0* -- 31.6* 31.9* PLATELETS X10E9/L 256 243 231 < > 287 263 MCV fL 70* 70* 70* -- 69* 69* NEUTROS ABS 10*3/uL -- -- -- -- 19.4* 18.5* < > = values in this interval not displayed. Results from last 7 days Lab Units 02/24/25 1728 PROTIME sec 13.4* INR 1.2 APTT sec 23* D DIMER ug/mL 7,187* Results from last 7 days Lab Units 02/28/25 0622 02/27/25 0220 02/26/25 0259 02/24/25 1728 02/24/25 1544 02/24/25 1544 SODIUM mmol/L 134 136 133* 132* -- 133* POTASSIUM mmol/L 4.2 4.1 4.0 4.2 -- 4.1 CHLORIDE mmol/L 104 106 102 99 -- 101 CO2 mmol/L 26 23 23 21* -- 20* BUN mg/dL 16 21 21 19 -- 20 CREATININE mg/dL 0.84 0.90 0.93 0.99 -- 0.99 CALCIUM mg/dL 8.1* 8.2* 8.1* 8.3* -- 8.3* ALK PHOS U/L -- -- -- 105 -- 100 ALT U/L -- -- -- 15 -- 15 AST U/L -- -- -- 21 -- 24 GLUCOSE mg/dL 80 110* 93 132* -- 132* INR -- -- -- 1.2 -- -- MAGNESIUM mg/dL 2.3 2.3 2.4 2.4 < > -- < > = values in this interval not displayed. VITAMIN B12: Lab Results Component Value Date [id number] 110 (L) 02/26/2025 FOLATE: Lab Results Component Value Date FOLATE 3.3 (L) 02/26/2025 IRON: Lab Results Component Value Date IRON 12 (L) 02/26/2025 TIBC 321 02/26/2025 FERRITIN 78 02/26/2025 Medications: cyanocobalamin, 1,000 mcg, intramuscular, Daily ferumoxytol, 510 mg, intravenous, Q3 Days pantoprazole, 40 mg, oral, QAM AC sodium chloride, 3 mL, intravenous, Q12H JOSE Ernie Elizondo, STUDENT TRUCK DRIVER-ASSISTANT DIRECTOR OF RESIDENCE LIFE 02/28/25 0843 Cosigned by Geremias Romero MD at 02/28/2025 9:23 AM EDT * Tobin Lee MD - 02/28/2025 6:35 AM EDT GynOnc Daily Progress Note Admission Date: 02/25/2025 Hospital Day: 3 days Subjective: Caren Suarez is a 69 y.o. female admitted for management pulmonary embolism and DVT on heparin. Patient is being followed by [facility] for workup of a RT adnexal mass (16 x 12 x 11) incidentally foundon CTAB and evidence of metastatic disease involving peritoneal and pulmonary. Overnight, per night NATA Lao, patient had started bowel prep for colonoscopy but was not able to complete it however, due to abdominal pain and difficulty drinking all the liquid. Patient reports having a BM last night and is passing flatus. She complains of persistent diffuse abdominal pain. Denies N/V. Patient is voiding without difficulty. Patient reports persistent minimal vaginal spotting, but has not noticed any changes in the amount or frequency. She does not require a pad. Patient reports SOB with movement but Denies CP, SOB at rest. Objective: Vitals: 02/28/25 0307 BP: 151/70 Pulse: 78 Resp: 18 Temp: 36.7 ??C (98.1 ??F) SpO2: 92% No intake or output data in the 24 hours ending 02/28/25 0743 Temp: [36.4 ??C (97.5 ??F)-36.8 ??C (98.3 ??F)] 36.7 ??C (98.1 ??F) Pulse: [78-96] 78 Resp: [16-18] 18 BP: (131-151)/(55-88) 151/70 SpO2: [92 %-98 %] 92 % O2 Device: None (Room air) O2 Flow Rate (L/min): [0 L/min] 0 L/min Lab Results Component Value Date WBC 9.2 02/28/2025 HGB 8.8 (L) 02/28/2025 HCT 28.5 (L) 02/28/2025 MCV 70 (L) 02/28/2025 PLT 256 02/28/2025 Lab Results Component Value Date GLU 80 02/28/2025 CALCIUM 8.1 (L) 02/28/2025 K 4.2 02/28/2025 CO2 26 02/28/2025 BUN 16 02/28/2025 CREATININE 0.84 02/28/2025 Lab Results Component Value Date CA125 1,528 (H) 02/26/2025 No components found for: HE4 Lab Results Component Value Date CEA 24.6 (H) 02/26/2025 Lab Results Component Value Date CA199 22.5 02/26/2025 No results found for: PREALBUMIN Results from last 7 days Lab Units 02/24/25 1728 INR 1.2 Lab Results Component Value Date CALCIUM 8.1 (L) 02/28/2025 No results found for: TSH , T4 GENERAL APPEARANCE: alert, AAOX3 CARDIOVASCULAR: RRR LUNGS: Upper and middle anterior lung verdin clear to auscultation B/L. No respiratory distress ABDOMEN: Distended, diffuse tenderness, no rebound , guarding. No acute abdomen EXTREMITIES: 3+ pitting edema in RLE extending for foot to knee, 2+ pitting edema in LLE. no calf tenderness. Assessment/Plan: Caren Suarez is a 69 y.o. presenting with PE/DVT in the setting of an incidental pelvic massand renal mass with evidence of metastatic disease. 1. New pelvic mass, with metastatic disease - Persistent vaginal spotting - New partially solid/partially cystic lesion in RT adnexa measuring [id number] - Elevated CA-125 (1,528),CEA 24.6, CA 19-9 22.5 - Concerns for metastatic disease involving the abdomen and lungs, clinically evidenced by soft tissue abdominal nodules and pulmonary nodules found on imaging - GI on board, colonoscopy, EGD scheduled for later today. - IR guided biopsy and drainage of ascites to be completed today at 1000 - Fu pathology report - f/u TVUS 2. Pulmonary Embolism DVT - Heparin drip - held for colonoscopy - Management per primary team - no evidence of Heart strain 3. Anemia - Multifactorial - Hgb 9.6>9.1>8.9>8.5 4. Renal Mass - Urology following appreciate reccs -Right renal mass concerning for RCC -Monitor right renal mass for now, will arrange outpatient follow up Chel Ruvalcaba, MS3 02/28/25 If questions or concerns, please contact via [employer] pager at [phone]. Resident Attestation I have seen and evaluated the patient, and have also reviewed the documentation above. I have repeated and performed the fuentes portions of the physical exam and concur with the student's findings. I agree with the plan as noted above with any changes made as necessary. Tobin Lee MD Vacuum Cleaner Repairer Resident PGY 2 02/28/25 7:53 AM Cosigned by Jose Carlos Day MD at 02/28/2025 8:59 AM EDT Associated attestation - Jose Carlos Day MD - 02/28/2025 8:59 AM EDT Attending Attestation: I saw the patient. I participated and was physically present during the critical/fuentes portions of the service. I was directly involved in the management and treatment plan of the patient. I reviewed the resident's note. Additional Notes/Findings: To IR today * Vonda Polanco APRN-ASSISTANT DIRECTOR OF RESIDENCE LIFE - 02/27/2025 1:15 PM EDT Images from the original note were not included. Division of Infectious Diseases Progress note Academic Team Please contact us via Cow[employer]. After hours, call [phone] Patient name: Caren Suarez Patient Today's Date and Time: 02/27/2025, 1:15 PM Admission Date: 02/25/2025 Primary Care Physician: Riya Diego MD Impression and Recommendations:: Leukocytosis Ovarian cystic lesion, likely malignancy Intraperitoneal free fluid Acute PE without right heart strain No urinary symptoms. Urine culture negative CT chest noted with RLL infiltrate vs atelectasis, she has no pulmonary symptoms. IR consulted for biopsy and paracentesis given intraperitoneal free air. No peritoneal signs but will follow up results. For now hold off on antibiotics. Low suspicion for infection Subjective Interval History:: Pt seen at bedside. Her WBC is down to WNL. She says she feels okay. NO signs of pna, likely atelectasis on imaging. Despite free intraperitoneal fluid, she does not have any peritoneal signs. No abdominal pain Received 1 dose of Ceftriaxone. No new or worsening symptoms. Objective Physical Examination : BP 142/61 Pulse 96 Temp 36.7 ??C (98 ??F) (Oral) Resp 16 Ht 157.5 cm (5' 2.01 ) Wt 75.2 kg (165 lb 12.6 oz) SpO2 97% BMI 30.31 kg/m?? Temperature Range: Temp: 36.7 ??C (98 ??F) Temp Av.9 ??C (98.4 ??F) Min: 36.7 ??C (98 ??F) Max: 37.2 ??C (99 ??F) Constitutional: Awake and alert Cardiovascular: S1, S2, regular rate and rhythm, no murmurs, rubs, or gallops Respiratory: equal air entry bilaterally, no distress, no wheezes, rhonchi, rales Gastrointestinal/Abdomen: soft, nontender, nondistended, normal bowel sound Musculoskeletal/Extremities: No cyanosis, clubbing, edema, or effusions. Skin: warm, dry, no rashes or lesions noted Neurologic: Bulk and tone are normal. No atrophy is noted. Laboratory data: I have independently reviewed the following labs: Results from last 7 days Lab Units 02/27/25 0220 02/26/25 0259 02/25/25 0713 02/24/25 1728 02/24/25 1544 WBC x10E9/L 10.8 12.5* -- 20.6* 19.7* HEMOGLOBIN g/dL 8.5* 8.9* 9.1* 9.6* 9.6* HEMATOCRIT % 27.5* 29.0* -- 31.6* 31.9* MCV fL 70* 70* -- 69* 69* PLATELETS X10E9/L 243 231 240 287 263 NEUTROS ABS 10*3/uL -- -- -- 19.4* 18.5* LYMPHS ABS AUTO 10*3/uL -- -- -- 0.4* 0.4* MONOS ABS AUTO 10*3/uL -- -- -- 0.6 0.7 EOS ABS AUTO 10*3/uL -- -- -- 0.0 0.0 BASOS ABS AUTO 10*3/uL -- -- -- 0.1 0.1 Results from last 7 days Lab Units 02/27/25 0220 02/26/25 02502/24/25 1728 02/24/25 1544 SODIUM mmol/L 136 133* 132* 133* POTASSIUM mmol/L 4.1 4.0 4.2 4.1 CHLORIDE mmol/L 106 102 99 101 CO2 mmol/L 23 23 21* 20* BUN mg/dL 21 21 19 20 CREATININE mg/dL 0.90 0.93 0.99 0.99 CALCIUM mg/dL 8.2* 8.1* 8.3* 8.3* ALBUMIN g/dL -- -- 2.8* 2.8* ALK PHOS U/L -- -- 105 100 ALT U/L -- -- 15 15 AST U/L -- -- 21 24 Results from last 7 days Lab Units 02/26/25 02502/24/25 1728 D DIMER ug/mL -- 7,187* FERRITIN ng/mL 78 -- LDH U/L 232 -- Results from last 7 days Lab Units 02/25/252025 COLOR UA Tripp* TURBIDITY Clear SPECIFIC GRAVITY, URINE 1.015 NITRITE UA Negative PH URINE 6.0 LEUKOCYTE ESTERASE Small* PROTEIN 50 mg/dL* KETONES (URINE) Negative UROBILINOGEN 2 eu/dL* BLOOD Large* R. B. CELLS 68* WBC UA 19* Imaging Studies: .CT Chest right sided PE . RLL atelectasis. No pneumonia CT chest abdomen and pelvis: diffuse free intraperitoneal fluid Cultures: Microbiology Results Procedure Component Value Units Date/Time Urine Culture Urine, Clean Catch Midstream [[id number]] Collected: 02/25/252025 Specimen: Urine, Clean Catch Midstream Updated: 02/26/251652 CULTURE RESULTS 10-50,000 ORGANISMS/mL NORMAL UROGENITAL YOLY Medications: cyanocobalamin, 1,000 mcg, intramuscular, Daily ferumoxytol, 510 mg, intravenous, Q3 Days pantoprazole, 40 mg, oral, QAM AC sodium chloride, 3 mL, intravenous, Q12H JOSE Thank you for allowing us to participate in the care of this patient. Please call with questions. Vonda Polanco DNP, CNP From 7AM-7PM: From 7AM-7PM: Please use [employer] for communication From 7PM-7AM: Please call for our answering service. ELLIOTT Connelly 02/27/25 1332 * Deena Branch MD - 02/27/2025 12:09 PM EDT Images from the original note were not included. 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 Monitor CBC BMP magnesium daily Acute PE/DVT CTA of chest reported moderate right-sided pulmonary emboli without evidence of heart strain Was started on heparin infusion Obtain echocardiogram Pulmonary consulted Numerous pulmonary nodules likely metastasis Consult pulmonary General oncology consult Pulmonary consult Newly diagnosed Ovarian mass Gynecology/Oncology was consulted Plan for paracentesis and soft tissue nodule biopsy tomorrow Urinary tract infection Urinalysis came back positive for UTI Follow urine culture Started on IV ceftriaxone History of tobacco abuse Quit 12 years ago, with a 42 year history of smoking Oral Protonix for GI prophylaxis No further pharmacological need for DVT prophylaxis Subjective PT Denied any nausea vomiting , no diarrhea , no constipation , no chest pain , no palpitation , noheadache, other systems were reviewed and were negative. HPI: Caren Suarez is an 69 y.o. White or female. came to the hospital with Abnormal test results. Patient states that she has been experiencing cold-like symptoms with to thepoint where she was having hard time breathing. She went to her PCP who placed her on steroids withno improvement. She then was on antibiotic therapy with still no improvement. 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 She also underwent venous duplex of bilateral lower extremities that reported rightacute DVT and left deep calf muscle vein DVT. she was Was then sent to the ER at [place] to be further evaluated and treated. She was transferred to [facility] for further evaluation and treatment. No significant past medical history of coronary artery disease, COPD diabetes or history of stroke.Patient does have a history of tobacco abuse quit 12 years ago Social History Tobacco Use Smoking Status Former Types: Cigarettes Smokeless Tobacco Never Social History Substance and Sexual Activity Alcohol Use Never Physical examination : BP 142/61 Pulse 96 Temp 36.7 ??C (98 ??F) (Oral) Resp 16 Ht 157.5 cm (5' 2.01 ) Wt 75.2 kg (165 lb 12.6 oz) SpO2 97% BMI 30.31 kg/m?? General Appearance: Alert, cooperative, no distress. Head: Normocephalic, without obvious abnormality, atraumatic Eyes: PERRL, conjunctiva/corneas clear, EOM's intact Ears: Normal external ear canals, both ears Nose: Nares normal, septum midline, mucosa normal, no drainage or sinus tenderness Throat: Lips, mucosa, and tongue normal; teeth and gums normal Neck: Supple, symmetrical, trachea midline, no adenopathy, thyroid: not enlarged, symmetric, no tenderness/mass/nodules, no carotid bruit or JVD Lungs: Clear to auscultation bilaterally, respirations unlabored, tactile fremitus are normal B/L Chest Wall: No tenderness or deformity Heart: Regular rate and rhythm, S1, S2 normal, no murmur, rub or gallop, PMI is not displaced Abdomen: Soft, non-tender, bowel sounds active all four quadrants, no masses, no organomegaly Extremities: Extremities normal, atraumatic, no cyanosis or edema Pulses: 2+ and symmetric Skin: Skin color, texture, turgor normal, no rashes or lesions Lymph nodes: Cervical, supraclavicular, and axillary nodes normal Neurologic: Nonfocal Labs : Results from last 7 days Lab Units 02/27/25 0220 02/26/25 0259 02/25/25 0713 02/24/25 1728 WBC x10E9/L 10.8 12.5* -- 20.6* HEMOGLOBIN g/dL 8.5* 8.9* 9.1* 9.6* HEMATOCRIT % 27.5* 29.0* -- 31.6* PLATELETS X10E9/L 243 231 240 287 Results from last 7 days Lab Units 02/27/25 0220 02/26/25 0259 02/24/25 1728 POTASSIUM mmol/L 4.1 4.0 4.2 CHLORIDE mmol/L 106 102 99 CO2 mmol/L 23 23 21* BUN mg/dL 21 21 19 CREATININE mg/dL 0.90 0.93 0.99 CALCIUM mg/dL 8.2* 8.1* 8.3* Results from last 7 days Lab Units 02/27/25 0220 02/26/25 0259 02/24/25 1728 MAGNESIUM mg/dL 2.3 2.4 2.4 Results from last 7 days Lab Units 02/24/25 1728 INR 1.2 The note was completed using EMR. Every effort was made to ensure accuracy; however, inadvertent computerized logistics project manager errors may be present. Deena Branch MD * Geremias Romero MD - 02/27/2025 10:07 AM EDT Images from the original note were not included. [facility] Hematology and Oncology - Daily Progress Note 02/27/2025, 10:08 AM Impression/Plan: Metastatic Disease, Clinically -Favoring ovarian primary until proven otherwise -CT a/p showed large partially solid and partially cystic lesion in the right adnexa measuring 16 cm x 12 cm x 11 cm + lower anterior abdominal soft tissue nodules + 2.5 cm solid R renal lesion + diffuse intraperitoneal fluid -CTA chest revealed numerous pulmonary nodules -CA-369=[id number], CEA=24.6, CA 19-9 WNL, HE4 pending -FIELD MECHANIC/SITE LEAD/ONC consulted -TVUS still pending -IR consulted for paracentesis and biopsy of soft tissue nodules, not yet completed -Await pathology results -Will consult urology to evaluate renal lesion for ?biopsy PE/DVT -Likely provoked by metastatic malignancy -CTA shows Moderate right sided pulmonary emboli without evidence of right heart strain -Dopplers revealing acute R femoropopliteal, deep tibioperoneal, and deep calf muscle DVT + L deep calf muscle DVT -On heparin gtt, likely transition to DOAC prior to discharge Anemia -Multifactorial due to severe B12 deficiency, Iron deficiency anemia in setting of vaginal bleedingd/t #1, acute infection -Hgb=8.5(8.9, 9.1) microcytic -IV iron ordered -IM B12 ordered -No hemolysis -GI planning EGD/colonoscopy 02/28 -Transfuse for hgb<7 UTI -On IV antibiotics -As per other services Continue management of other medical problems as per appropriate services. Patient discussed with Dr. Romero. Please call with questions. Personally evaluated the patient chart, discussed with the nurse practitioner accompanied agree with the assessment plan as outlined above Clinically, metastatic ovarian cancer. Gynecologic oncology managing Patient does have a small renal mass likely malignancy. This is certainly of lower priority but we will ask Urology to address DVT/PE, likely provoked by malignancy. Okay to discharge on Eliquis from our view Trenton Romero MD Interval History: Patient seen and examined at bedside. She looks/feels unchanged. Denies any new or worsening symptoms. Still awaiting multiple procedures as discussed above. Tolerating IV iron without issue. VSS, afebrile, maintained on room air without issue. Physical Examination : Temp: [36.8 ??C (98.2 ??F)-37.2 ??C (99 ??F)] 36.8 ??C (98.3 ??F) Pulse: [79-101] 81 Resp: [16-18] 16 BP: (134-156)/(58-75) 134/65 SpO2: [92 %-97 %] 95 % O2 Device: None (Room air) O2 Flow Rate (L/min): [0 L/min] 0 L/min Temperature Range: Temp: 36.8 ??C (98.3 ??F) Temp Av.9 ??C (98.4 ??F) Min: 36.8 ??C (98.2 ??F)Max: 37.2 ??C (99 ??F) Weight change: 0.4 kg (14.1 oz) Physical Exam Vitals and nursing note reviewed. Constitutional: General: She is not in acute distress. Appearance: Normal appearance. She is normal weight. She is not ill-appearing or toxic-appearing. HENT: Head: Normocephalic and atraumatic. Right Ear: External ear normal. Left Ear: External ear normal. Nose: Nose normal. Mouth/Throat: Mouth: Mucous membranes are moist. Pharynx: Oropharynx is clear. Eyes: General: No scleral icterus. Extraocular Movements: Extraocular movements intact. Pupils: Pupils are equal, round Cardiovascular: Rate and Rhythm: Normal rate and regular rhythm. Pulmonary: Effort: Pulmonary effort is normal. No respiratory distress. Abdominal: General: There is distension. Tenderness: There is abdominal tenderness. There is guarding. Musculoskeletal: General: Normal range of motion. Cervical back: Normal range of motion and neck supple. Right lower leg: No edema. Left lower leg: No edema. Skin: General: Skin is warm and dry. Coloration: Skin is not jaundiced. Findings: No bruising or lesion. Neurological: General: No focal deficit present. Mental Status: She is alert and oriented to person, place, and time. Mental status is at baseline. Cranial Nerves: No cranial nerve deficit. Motor: No weakness. Gait: Gait normal. Psychiatric: Mood and Affect: Mood normal. Behavior: Behavior normal. Thought Content: Thought content normal. Judgment: Judgment normal. Laboratory data: Results from last 7 days Lab Units 02/27/25 0220 02/26/25 0259 02/25/25 0713 02/24/25 1728 02/24/25 1544 WBC x10E9/L 10.8 12.5* -- 20.6* 19.7* HEMOGLOBIN g/dL 8.5* 8.9* 9.1* 9.6* 9.6* HEMATOCRIT % 27.5* 29.0* -- 31.6* 31.9* PLATELETS X10E9/L 243 231 240 287 263 MCV fL 70* 70* -- 69* 69* NEUTROS ABS 10*3/uL -- -- -- 19.4* 18.5* Results from last 7 days Lab Units 02/24/25 1728 PROTIME sec 13.4* INR 1.2 APTT sec 23* D DIMER ug/mL 7,187* Results from last 7 days Lab Units 02/27/25 0220 02/26/25 0259 02/24/25 1728 02/24/25 1544 SODIUM mmol/L 136 133* 132* 133* POTASSIUM mmol/L 4.1 4.0 4.2 4.1 CHLORIDE mmol/L 106 102 99 101 CO2 mmol/L 23 23 21* 20* BUN mg/dL 21 21 19 20 CREATININE mg/dL 0.90 0.93 0.99 0.99 CALCIUM mg/dL 8.2* 8.1* 8.3* 8.3* ALK PHOS U/L -- -- 105 100 ALT U/L -- -- 15 15 AST U/L -- -- 21 24 GLUCOSE mg/dL 110* 93 132* 132* INR -- -- 1.2 -- MAGNESIUM mg/dL 2.3 2.4 2.4 -- VITAMIN B12: Lab Results Component Value Date [id number] 110 (L) 02/26/2025 FOLATE: Lab Results Component Value Date FOLATE 3.3 (L) 02/26/2025 IRON: Lab Results Component Value Date IRON 12 (L) 02/26/2025 TIBC 321 02/26/2025 FERRITIN 78 02/26/2025 Imaging Studies: Echo complete W/O contrast Result Date: 02/26/2025 Left Ventricle: Left ventricle is small. Systolic function is normal with an ejection fraction of 60-65%. No segmental wall motion abnormalities. Grade I diastolic dysfunction (impaired relaxation) is present. Lateral E' is 11.70 cm/s. Medial E' is 7.94 cm/s. Right Ventricle: Right ventricular sizeappears normal. The right ventricular basal diameter is 22.0 mm. Systolic function is normal. Aortic Valve: There is trace to mild regurgitation. There is no evidence of aortic valve stenosis. Medications: cyanocobalamin, 1,000 mcg, intramuscular, Daily pantoprazole, 40 mg, oral, QAM AC sodium chloride, 3 mL, intravenous, Q12H [facility], [facility] Christina APRN-DUYEN 02/27/25 1514 * Fernanda Soliman MD - 02/27/2025 9:59 AM EDT Images from the original note were not included. Pulmonary Critical Care Progress Note Patient seen for the follow up of acute moderate right sided pulmonary emboli, acute DVT, right lower lobe infiltrate pulmonary nodules, previous smoker, ovarian mass, renal mass Subjective: Patient is sitting comfortably in bed. No acute overnight events noted. She denies chest pain and cough. She is on room air. Examination: Vitals: BP 134/65 Pulse 81 Temp 36.8 ??C (98.3 ??F) (Oral) Resp 16 Ht 157.5 cm (5' 2.01 ) Wt 75.2 kg (165 lb 12.6 oz) SpO2 95% BMI 30.31 kg/m?? General appearance: In no acute distress, alert and cooperative with exam, EOM I Neck: No JVD Lungs: Moderate air exchange, no wheezing or rhonchi Heart: regular rate and rhythm, S1, S2 normal, no gallop Abdomen: Soft, non tender, + BS, rounded Extremities: no cyanosis or clubbing. No significant edema, no skin rash or petechiae LABs: Results from last 7 days Lab Units 02/27/25 02202/26/25 02502/25/25 0713 02/24/25 1728 WBC x10E9/L 10.8 12.5* -- 20.6* HEMOGLOBIN g/dL 8.5* 8.9* 9.1* 9.6* HEMATOCRIT % 27.5* 29.0* -- 31.6* PLATELETS X10E9/L 243 231 240 287 Results from last 7 days Lab Units 02/27/25 02202/26/25 0259 02/24/25 1728 SODIUM mmol/L 136 133* 132* POTASSIUM mmol/L 4.1 4.0 4.2 CHLORIDE mmol/L 106 102 99 CO2 mmol/L 23 23 21* BUN mg/dL 21 21 19 CREATININE mg/dL 0.90 0.93 0.99 CALCIUM mg/dL 8.2* 8.1* 8.3* Echo complete W/O contrast Result Date: 02/26/2025 Left Ventricle: Left ventricle is small. Systolic function is normal with an ejection fraction of 60-65%. No segmental wall motion abnormalities. Grade I diastolic dysfunction (impaired relaxation) is present. Lateral E' is 11.70 cm/s. Medial E' is 7.94 cm/s. Right Ventricle: Right ventricular sizeappears normal. The right ventricular basal diameter is 22.0 mm. Systolic function is normal. Aortic Valve: There is trace to mild regurgitation. There is no evidence of aortic valve stenosis. Radiology: CT chest 02/25/25 Impression & Recommendations: Acute moderate right-sided pulmonary emboli/acute DVT right femoropopliteal, tibioperoneal, deep calf, left deep calf muscle Heparin drip with plans to transition to DOAC after invasive procedures are complete Echocardiogram with EF of 60-65%, normal right ventricular systolic function Right lower lobe infiltrate/Pulmonary nodules, suspected metastasis/previous smoker, quit 12 years ago, 42 pack year history Outpatient PFTs Multiple bilateral small pulmonary nodules Oncology consulted Infectious disease following, holding off on antibiotics at this time Ovarian mass/renal mass Gynecologic/oncology consulted Medical oncology consulted, input noted Plan for paracentesis and biopsy of soft tissue nodules in IR Transvaginal ultrasound pending DVT prophylaxis with heparin infusion PUD prophylaxis with PPI Fernanda Soliman MD, [facility] Pulmonary Critical Care and Sleep Medicine, [facility] Office: [phone] The note was completed using EMR. Every effort was made to ensure accuracy; however, inadvertent computerized logistics project manager errors may be present. * Mariaelena Berumen MD - 02/27/2025 6:03 AM EDT GynOnc Daily Progress Note Admission Date: 02/25/2025 Hospital Day: 2 days Subjective: Caren Suarez is a 69 y.o. female admitted for pulmonary embolism. Electronic Publishing Specialist Onc consulted yesterday forevaluation of new partially solid/partially cystic lesion in R adnexa on imaging measuring [id number] and evidence of metastatic disease including peritoneal and pulmonary metastasis. This morning she is doing well. No acute events overnight. She complains of minimal bilateral pelvic pain this morning that is controlled without medications. Patient is not complaining of nausea or vomiting. She is tolerating Regular diet. Patient denies chest pain, shortness of breath, fever, or chills. Voiding without difficulty. Patient has been ambulating. She has passed flatus and has had abowel movement yesterday. Objective: Vitals: 02/27/25 0313 BP: 153/75 Pulse: 79 Resp: 18 Temp: 36.9 ??C (98.4 ??F) SpO2: 95% No intake or output data in the 24 hours ending 02/27/25 0628 Temp: [36.7 ??C (98.1 ??F)-37.2 ??C (99 ??F)] 36.9 ??C (98.4 ??F) Pulse: [79-101] 79 Resp: [16-18] 18 BP: (139-156)/(58-75) 153/75 SpO2: [92 %-97 %] 95 % O2 Device: None (Room air) O2 Flow Rate (L/min): [0 L/min] 0 L/min Lab Results Component Value Date WBC 10.8 02/27/2025 HGB 8.5 (L) 02/27/2025 HCT 27.5 (L) 02/27/2025 MCV 70 (L) 02/27/2025 PLT 243 02/27/2025 Lab Results Component Value Date GLU 110 (H) 02/27/2025 CALCIUM 8.2 (L) 02/27/2025 K 4.1 02/27/2025 CO2 23 02/27/2025 BUN 21 02/27/2025 CREATININE 0.90 02/27/2025 Lab Results Component Value Date CA125 1,528 (H) 02/26/2025 No components found for: HE4 Lab Results Component Value Date CEA 24.6 (H) 02/26/2025 Lab Results Component Value Date CA199 22.5 02/26/2025 No results found for: PREALBUMIN Results from last 7 days Lab Units 02/24/25 1728 INR 1.2 Lab Results Component Value Date CALCIUM 8.2 (L) 02/27/2025 No results found for: TSH , T4 GENERAL APPEARANCE: alert, well appearing, in no apparent distress CARDIOVASCULAR: RRR LUNGS: No evidence of respiratory distress. Crackles in R lung base. ABDOMEN: Soft, distended, minimally tender in RLQ. EXTREMITIES: 2+ pedal edema in R calf, 1+ edema in L calf. Assessment/Plan: Caren Suarez is a 69 y.o. admitted with pulmonary embolism. Found to have new partially solid/partially cystic lesion in R adnexa on imaging measuring [id number] and evidence of metastatic disease including peritoneal and pulmonary metastasis. New pelvic mass, c/f metastatic disease New vaginal bleeding on heparin - On CTAP 02/24, new partially solid/partially cystic lesion in R adnexa on imaging measuring [id number] and evidence of metastatic disease including abdominal soft tissue nodules and pulmonary nodules. - CA-125: 1,528 - CEA: 24.6 - CA 19-9: 22.5 - HE4: pending - Pap smear collected yesterday - TVUS ordered, will follow-up - IR guided biopsy and drainage of ascites scheduled for 02/28 at 10am. - Plan to hold heparin at 4am 02/28 - Recommend colonoscopy given elevated CEA - WBC 20.6 > 12.5 > 10.8 (02/27) - Management pending IR pathology results. 2. Pulmonary Embolism - On heparin drip, anti-Xa level in therapeutic range - Management per primary team - Hgb 9.6 > 9.1 > 8.9 >8.5 (02/27) Mariaelena Berumen MD Vacuum Cleaner Repairer Resident, PGY-1 If questions or concerns, please contact via GynOn pager at [phone]. Cosigned by Jose Carlos Day MD at 02/28/2025 7:14 AM EDT Associated attestation - Jose Carlos Day MD - 02/28/2025 7:14 AM EDT Attending Attestation: I saw the patient. I participated and was physically present during the critical/fuentes portions of the service. I was directly involved in the management and treatment plan of the patient. I reviewed the resident's note. Additional Notes/Findings: Needs IR guided biopsy and paracentesis. Will await pathology results for further treatment planning. * Ernie Elizondo, STUDENT TRUCK DRIVER-ASSISTANT DIRECTOR OF RESIDENCE LIFE - 02/26/2025 2:16 PM EDT Images from the original note were not included. [facility] Hematology and Oncology - Consult Note 02/26/2025, 2:16 PM Date of Admission: 02/25/2025 Referring Physician: Deena Branch MD PCP: Riya Dieog MD Reason for Consult: Metastatic disease, clinically History of Present Illness: Caren Suarez is a 69 y.o. female patient who presents to the hospitalwith PE, DVT. CTA shows Moderate right sided pulmonary emboli without evidence of right heart strain. Dopplers revealing acute R femoropopliteal, deep tibioperoneal, and deep calf muscle DVT + L deepcalf muscle DVT. She has been started on heparin gtt in this regard, and pulmonology is following. CTA chest also revealed numerous pulmonary nodules, likely metastases. CT a/p showed large partiallysolid and partially cystic lesion in the right adnexa measuring 16 cm x 12 cm x 11 cm + lower anterior abdominal soft tissue nodules + 2.5 cm solid R renal lesion + diffuse intraperitoneal fluid. We have ordered ovarian tumor markers and consulted FIELD MECHANIC/SITE LEAD/ONC for further evaluation given high concern for ovarian malignancy. CA-371=1642, CEA=24.6, CA 19-9 WNL, HE4 pending. TVUS ordered and IR was consulted for paracentesis and biopsy of soft tissue nodules. She is being treated with IV antibiotics for UTI. IV iron ordered for FREDY, IM B12 replacement ordered. Hgb=8.9(9.1) with microcytosis. Patient seen and examined at bedside. She complains of vaginal bleeding, lower abdominal pain, abdominal distention, poor appetite, decreased PO intake, SOBOE. She states that all of her symptoms came on suddenly. Discussed imaging findings and plan. Answered all questions to satisfaction. Patient is resting on room air without distress, VS unremarkable, afebrile. PMH: Past Medical History: Diagnosis Date Deep vein thrombosis ([facility]) PSH: No past surgical history on file. Allergies: Allergies Allergen Reactions Penicillin Home Meds: No medications prior to admission. Social History: Social History Socioeconomic History Marital status: Single Spouse name: Not on file Number of children: Not on file Years of education: Not on file Highest education level: Not on file Occupational History Not on file Tobacco Use Smoking status: Former Types: Cigarettes Smokeless tobacco: Never Substance and Sexual Activity Alcohol use: Never Drug use: Never Sexual activity: Not on file Other Topics Concern Not on file Social History Narrative Not on file Social Drivers of Health Financial Resource Strain: Not on file Food Insecurity: No Food Insecurity (02/25/2025) Hunger Screening Food Insecurity - Worry: Never True Food Insecurity - Inability: Never True Transportation Needs: No Transportation Needs (02/25/2025) PRAPARE - Transportation Lack of Transportation (Medical): No Lack of Transportation (Non-Medical): No Physical Activity: Not on file Stress: Not on file Social Connections: Not on file Interpersonal Safety: Not At Risk (02/25/2025) Humiliation, Afraid, Rape, and Kick questionnaire Fear of Current or Ex-Partner: No Emotionally Abused: No Physically Abused: No Sexually Abused: No Housing Instability: Low Risk (02/25/2025) Housing Instability Housing Instability: No Family History: Family History Problem Relation Age of Onset Breast cancer Neg Hx Review of Systems See HPI, otherwise ROS negative Physical Exam Vital Signs: Temp: [36.7 ??C (98.1 ??F)-36.9 ??C (98.5 ??F)] 36.8 ??C (98.2 ??F) Pulse: [82-102] 97 Resp: [16-18] 16 BP: (124-155)/(59-88) 153/64 SpO2: [91 %-98 %] 95 % O2 Device: None (Room air) Respiratory Source: O2 Device: None (Room air) Admission Weight: Weight: 74.8 kg (164 lb 14.5 oz) Physical Exam Vitals and nursing note reviewed. Constitutional: General: She is not in acute distress. Appearance: Normal appearance. She is normal weight. She is not ill-appearing or toxic-appearing. HENT: Head: Normocephalic and atraumatic. Right Ear: External ear normal. Left Ear: External ear normal. Nose: Nose normal. Mouth/Throat: Mouth: Mucous membranes are moist. Pharynx: Oropharynx is clear. Eyes: General: No scleral icterus. Extraocular Movements: Extraocular movements intact. Pupils: Pupils are equal, round, and reactive to light. Cardiovascular: Rate and Rhythm: Normal rate and regular rhythm. Pulses: Normal pulses. Heart sounds: Normal heart sounds. Pulmonary: Effort: Pulmonary effort is normal. No respiratory distress. Breath sounds: Normal breath sounds. No wheezing or rales. Abdominal: General: Bowel sounds are normal. There is distension. Tenderness: There is abdominal tenderness. There is guarding. Musculoskeletal: General: Normal range of motion. Cervical back: Normal range of motion and neck supple. Right lower leg: No edema. Left lower leg: No edema. Skin: General: Skin is warm and dry. Coloration: Skin is not jaundiced. Findings: No bruising or lesion. Neurological: General: No focal deficit present. Mental Status: She is alert and oriented to person, place, and time. Mental status is at baseline. Cranial Nerves: No cranial nerve deficit. Motor: No weakness. Gait: Gait normal. Psychiatric: Mood and Affect: Mood normal. Behavior: Behavior normal. Thought Content: Thought content normal. Judgment: Judgment normal. Imaging CT angiogram chest Result Date: 02/25/2025 CLINICAL INFORMATION: DVT's TECHNIQUE: CT CTA CHEST CTA of the chest was obtained post intravenous administration of contrast. Post processed three- dimensional maximum intensity projection imaging was acquired and evaluated. There are moderate right-sided pulmonary emboli. No appreciable right heart strain. Right lower lobe infiltrate or atelectasis appreciated. There are bilateral pulmonary nodules appreciated most suggestive of metastasis, as previous described. Limited images of the upper abdomen again show free intraperitoneal fluid. Refer to previously dictated CT abdomen. No obvious medi astinal lymphadenopathy. Coronary arterial atherosclerotic calcification noted. Osseous structures appear grossly intact. IMPRESSION: Moderate right sided pulmonary emboli without evidence of right heart strain. Right lower lobe infiltrate or atelectasis. Numerous pulmonary nodules, likely metastasis. I personally called these findings to nurse Muhammad of the clinical service at time of dictation.All CT scans at this facility use dose modulation, iterative reconstruction, and/or weight based dosing when appropriate to reduce radiation dose to as low as reasonably achievable. Finalized by Chau Nicole MD on 02/25/2025 7:09 PM Vas venous duplex lwr bilateral Result Date: 02/24/2025 Right: Dilated noncompressible distal femoral, popliteal, posterior tibial, peroneal and deep calf muscle veins with hypoechoic intraluminal content and absent spectral Doppler signals. Remaining visualized deep venous segments are compressible with spontaneous phasic spectral Doppler waveforms. Superficial veins are compressible. Left: Limited contralateral duplex evaluation completed. Dilated Non-compressible deep calf muscle veins with hypoechoic intraluminal content and absent spectral Doppler signals. Common femoral, femoral, and popliteal veins are compressible without intraluminal content. Spontaneous, common femoral, femoral and popliteal spectral Doppler signals. Evaluation of superficial veins was not performed. Conclusions: RIGHT:ACUTE femoropopliteal deep vein thrombosis (DVT).ACUTE deep tibioperoneal vein thrombosis (DVT). ACUTE deep calf muscle vein thrombosis (DVT). NO EVIDENCE of superficial vein thrombosis of the lower extremity. LEFT:Limited visualization of lower extremity venous segments.ACUTE deep calf muscle vein thrombosis (DVT). CT abdomen and pelvis with contrast Result Date: 02/24/2025 CLINICAL INFORMATION: Localized swelling, mass and lump, lower limb, right; Generalized abdominal pain; Abdominal distension; SOB (shortness of breath); Tachycardia TECHNIQUE: CT ABDOMEN AND PELVIS WCONT CT images of the abdomen and pelvis are obtained. Intravenous contrast was administered. Images are reformatted in the sagittal and coronal planes. There are no prior exams available for comparison. There is diffuse free intraperitoneal fluid. Large partially solid and partially cystic lesion noted within the right adnexa measuring 16 cm x 12 cm x 11 cm. Ovarian carcinoma is the diagnosis ofexclusion. Regions of soft tissue nodularity noted anterior lower abdomen. There are small bilateral lower lobe pulmonary nodules. Right basilar atelectasis also appreciated. Pancreas unremarkable. Adrenal symmetric. Large dependently layering gallstone. Small bowel is nondistended without evidenceof obstruction. Mild thoracolumbar degenerative changes. No acute osseous abnormalities. Prominent nodes appreciated at the diya hepatis. IMPRESSION: Large partially solid partially cystic lesion within the right adnexa. Ovarian carcinoma is diagnosis of exclusion. 2.5 cm solid right renal lesion.Renal cell carcinoma is diagnosis of exclusion. Diffuse free intraperitoneal fluid. Small bilateral noncalcified lower lobe pulmonary nodules and lower anterior abdominal soft tissue nodules, likely metastasis. Prominent nodes in diya hepatis. THIS REPORT CONTAINS A SIGNIFICANT RESULT AND/OR RECOMMENDATION, WHICH REQUIRES THE ATTENTION OF THE LICENSED CAREGIVER RESPONSIBLE FOR THIS PATIENT. THEREFORE, I SPECIFICALLY DESIGNATED THIS REPORT TO BE TELEPHONED BY THE RADIOLOGY DEPARTMENT. FINDINGS WERE INSTRUCTED TO BE CALLED TO THE CLINICAL SERVICE ON 02/24/2025 AT 4:[address] scans at this facility use dose modulation, iterative reconstruction, and/or weight based dosing when appropriate to reduce radiation dose to as low as reasonably achievable. Finalized by Chau Nicole MD on 02/24/2025 4:15 PM Lab Review Results from last 7 days Lab Units 02/26/25 0259 02/25/25 0713 02/24/25 1728 02/24/25 1544 WBC x10E9/L 12.5* -- 20.6* 19.7* HEMOGLOBIN g/dL 8.9* 9.1* 9.6* 9.6* HEMATOCRIT % 29.0* -- 31.6* 31.9* PLATELETS X10E9/L 231 240 287 263 MCV fL 70* -- 69* 69* Results from last 7 days Lab Units 02/26/25 0259 02/24/25 1728 02/24/25 1544 POTASSIUM mmol/L 4.0 4.2 4.1 CHLORIDE mmol/L 102 99 101 CO2 mmol/L 23 21* 20* BUN mg/dL 21 19 20 CREATININE mg/dL 0.93 0.99 0.99 CALCIUM mg/dL 8.1* 8.3* 8.3* ALK PHOS U/L -- 105 100 ALT U/L -- 15 15 AST U/L -- 21 24 GLUCOSE mg/dL 93 132* 132* INR -- 1.2 -- MAGNESIUM mg/dL 2.4 2.4 -- FOLATE: Lab Results Component Value Date FOLATE 3.3 (L) 02/26/2025 FERRITIN: Lab Results Component Value Date FERRITIN 78 02/26/2025 Assessment/Plan: Metastatic Disease, Clinically -Favoring ovarian primary until proven otherwise -CT a/p showed large partially solid and partially cystic lesion in the right adnexa measuring 16 cm x 12 cm x 11 cm + lower anterior abdominal soft tissue nodules + 2.5 cm solid R renal lesion + diffuse intraperitoneal fluid -CTA chest revealed numerous pulmonary nodules -CA-179=9411, CEA=24.6, CA 19-9 WNL, HE4 pending -FIELD MECHANIC/SITE LEAD/ONC consulted--> TVUS toshiang, IR was consulted for paracentesis and biopsy of soft tissue nodules -Await pathology results PE/DVT -Likely provoked by metastatic malignancy -CTA shows Moderate right sided pulmonary emboli without evidence of right heart strain -Dopplers revealing acute R femoropopliteal, deep tibioperoneal, and deep calf muscle DVT + L deep calf muscle DVT -On heparin gtt, likely transition to DOAC prior to discharge Anemia -Multifactorial due to severe B12 deficiency, Iron deficiency anemia in setting of vaginal bleedingd/t #1, acute infection -Hgb=8.9(9.1) microcytic -IV iron ordered -IM B12 ordered -No hemolysis -Transfuse for hgb<7 UTI -On IV antibiotics -As per other services Continue management of other medical problems as per appropriate services. Thank you for this consult. Patient discussed with Dr. Romero. Please call with questions. ELLIOTT Christina 02/26/2025 2:16 PM ELLIOTT Christina 02/26/25 1441 Cosigned by Geremias Romero MD at 02/27/2025 5:08 AM EDT documented in this encounter H&P Notes * Faith Celis MD - 03/07/2025 10:25 PM EDT HISTORY AND PHYSICAL INTERVAL NOTE: Caren Suarez 1955 [id number] H&P updated. 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 Patient now w malignant LBO w plans to undergo emergent ostomy. Complicating issue is large bilateral lower extremity DVTs and PE. Pt with supratherapeutic INR which has been corrected and proceeding to OR for emergent ostomy. Was consulted by colorectal surgery for possible excision of ovarian mass at time of surgery. I recommend bilateral salpingo-oophorectomy. We discussed the risks of surgery including risk of bleeding, possibly to anemia requiring blood transfusion, risk of infection, and risk of damage to surrounding structures including, but not limited to, bowel, bladder, ureters, nerves, arteries, and veins. Patient expressed understanding and desires to proceed. All questions were answered and the consent form was signed. FAITH CELIS MD Source Note - Mariaelena Berumen MD - 02/26/2025 12:23 PM EDT Gynecology Oncology Consultation Date of Admission: 02/25/2025 5:24 PM Chief Complaint : Shortness of Breath Reason for consult: Pelvic mass, vaginal bleeding History of Present Illness : Caren Suarez is a 69 y.o. female who is admitted under [facility] internal medicine service for Pulmonary embolism. Gynecology oncology was consulted for new pelvic mass measuring 16 x 12 x 11cm and vaginal bleeding. Patient states that she has had decreased appetite, bloating, pelvic pain and shortness of breath for the last 2 months. She went to see her primary care provider on Monday who noted abdominal distension and RLE swelling and ordered a CTAP and venous duplex ultrasound. Venous ultrasound showed DVT in RLE and CTAP showed signs of metastatic cancer so she was transferred to [facility] so that oncology services could be consulted. CTA chest here showed right sided pulmonary emboli & numerous pulmonary nodules, likely metastasis. She was started on heparin drip for her PE. Since being started on theheparin drip she has noted new vaginal bleeding. States it is dark red or brown spotting. Continuesto complain today of pelvic pain, bloating, and shortness of breath. She states that she underwent menarche at age 13. Has been on oral contraceptives most of her life.Has had one vaginal delivery. Stopped taking OCPs in her 40s and never had any vaginal bleeding since. No history of abdominal surgeries. No personal cancer history or known family history of cancer. Cancer History: - No known personal cancer history. - No known family history of cancer. Past Medical History : Past Medical History: Diagnosis Date Deep vein thrombosis (CMS-HCC) Past Surgical History: No past surgical history on file. Allergies: Allergies Allergen Reactions Penicillin Current Medications: Current Facility-Administered Medications: acetaminophen (TYLENOL) tablet 650 mg, 650 mg, oral, Q6H PRN, Neelima Ta STUDENT TRUCK [employer]IVER-[employer]SISTANT [employer] dextrose (GLUTOSE) 40 % gel 15 g, 15 g, oral, PRN, Neelima Ta, STUDENT TRUCK DRIVER-ASSISTANT [employer] dextrose 5 % (D5W) infusion, 100 mL/hr, intravenous, Continuous PRN, Neelima Ta STUDENT TRUCK DRIVER-[employer]SISTANT [employer] dextrose 50 % in water (D50W) 50% solution 25 mL, 25 mL, intravenous, PRN, Neelima Ta, STUDENT TRUCK DRIVER-ASSISTANT [employer] glucagon HCL injection 1 mg, 1 mg, intramuscular, PRN, Neelima Ta STUDENT TRUCK DRIVER-ASSISTANT [employer] heparin (porcine) injection 5,000 Units, 5,000 Units, intravenous, PRN, Atria Chau, STUDENT TRUCK DRIVER-[employer]SISTANT [employer], 5,000 Units at 02/26/25 0502 heparin infusion 44661 units/500 mL in 0.45% NaCl (50 units/mL premix), 300- 3,500 Units/hr, intravenous, Continuous, Neelima Ta STUDENT TRUCK DRIVER-[employer]SIST[employer], Last Rate: 23 mL/hr at 02/26/25 1319, 1,150 Units/hr at02/26/25 1319 magnesium sulfate IVPB 2000 mg/50 mL in iso-osmotic water (40 mg/mL premix), 2,000 mg, intravenous,PRN, Neelima Ta, STUDENT TRUCK [employer]IVER-[employer]SIST[employer] magnesium sulfate IVPB 4000 mg/100 mL in iso-osmotic water (40 mg/mL premix), 4,000 mg, intravenous, PRN, Neelima Ta, STUDENT TRUCK DRIVER-[employer]SISTANT [employer] ondansetron (PF) (ZOFRAN) injection 4 mg, 4 mg, intravenous, Q4H PRN, Neelima Ta STUDENT TRUCK DRIVER-ASSIST[employer] pantoprazole (PROTONIX) EC tablet 40 mg, 40 mg, oral, QAM AC, Neelima Ta STUDENT TRUCK DRIVER-ASSISTANT [employer], 40 mg at 02/26/25 0528 potassium chloride (K-TAB,KLOR-CON) CR tablet 30-50 mEq, 30-50 mEq, oral, PRN OR potassium chloride (KAYCIEL) 20 mEq/15 mL solution 30-50 mEq, 30-50 mEq, oral, PRN OR potassium chloride IVPB 10 mEq/100 mL in water (0.1 mEq/mL premix), 10 mEq, intravenous, PRN, Neelima R Ta, STUDENT TRUCK DRIVER-ASSIST[employer] sennosides-docusate sodium (SENOKOT-S) 8.6-50 mg 1 tablet, 1 tablet, oral, Q12H PRN, Neelima R Ta, STUDENT TRUCK [employer]IVER-[employer]SIST[employer] sodium chloride 0.9 % flush 10 mL, 10 mL, intravenous, PRN, Deena Branch MD, 10 mL at 02/25/25 1857 sodium chloride 0.9 % flush 3 mL, 3 mL, intravenous, PRN, Neelima R Ta, STUDENT TRUCK [employer]IVER-[employer]SIST[employer] sodium chloride 0.9 % flush 3 mL, 3 mL, intravenous, Q12H JOSE, Neelima R Ta, STUDENT TRUCK DRIVER-ASSISTANT [employer], 3 mL at 02/25/25 2130 sodium chloride 0.9 % flush bag, 25 mL, intravenous, PRN, Neelima R Ta, STUDENT TRUCK DRIVER-ASSISTANT [employer] sodium chloride 0.9 % infusion, 20 mL/hr, intravenous, Continuous PRN, Neelima R Ta, STUDENT TRUCK DRIVER-[employer]SISTANT [employer] Social History: Social History Socioeconomic History Marital status: Single Spouse name: Not on file Number of children: Not on file Years of education: Not on file Highest education level: Not on file Occupational History Not on file Tobacco Use Smoking status: Former Types: Cigarettes Smokeless tobacco: Never Substance and Sexual Activity Alcohol use: Never Drug use: Never Sexual activity: Not on file Other Topics Concern Not on file Social History Narrative Not on file Social Drivers of Health Financial Resource Strain: Not on file Food Insecurity: No Food Insecurity (02/25/2025) Hunger Screening Food Insecurity - Worry: Never True Food Insecurity - Inability: Never True Transportation Needs: No Transportation Needs (02/25/2025) PRAPARE - Transportation Lack of Transportation (Medical): No Lack of Transportation (Non-Medical): No Physical Activity: Not on file Stress: Not on file Social Connections: Not on file Interpersonal Safety: Not At Risk (02/25/2025) Humiliation, Afraid, Rape, and Kick questionnaire Fear of Current or Ex-Partner: No Emotionally Abused: No Physically Abused: No Sexually Abused: No Housing Instability: Low Risk (02/25/2025) Housing Instability Housing Instability: No Family History: Family History Problem Relation Age of Onset Breast cancer Neg Hx Review of Systems: All other systems reviewed and are negative. Physical Exam: Vital Signs: Temp: [36.7 ??C (98.1 ??F)-36.9 ??C (98.5 ??F)] 36.8 ??C (98.2 ??F) Pulse: [82-102] 97 Resp: [16-18] 16 BP: (124-155)/(59-88) 153/64 SpO2: [91 %-98 %] 95 % O2 Device: None (Room air) Admission Weight: Weight: 74.8 kg (164 lb 14.5 oz) General Appearance: Healthy, alert, active, cooperative, and in no distress Head: Normocephalic, without obvious abnormality, atraumatic Eyes: conjunctivae/corneas clear. PERRL, EOM's intact. Lungs: Upper lung verdin clear. R lung base with inspiratory crackles. Heart: regular rate and rhythm, S1, S2 normal, no murmur, click, rub or gallop Abdomen: soft, moderately distended, positive fluid wave. Moderate tenderness to RLQ. Pelvic: Normal female external genitalia, vaginal vault with 5cc of dark red blood, pale vaginal mucosa. Cervix appeared normal without lesions or friability. Extremities: RLE with 2+ pitting edema up to mid calf. No erythema. Tender to palpation. LLE with trace edema. Skin: Skin color, texture, turgor normal. No rashes or lesions Neurologic: Grossly normal Laboratory data: I have reviewed the following labs: Recent Results (from the past 72 hours) Comprehensive metabolic panel Collection Time: 02/24/25 3:44 PM Result Value Ref Range SODIUM 133 (L) 134 - 146 mmol/L POTASSIUM 4.1 3.5 - 5.0 mmol/L CHLORIDE 101 98 - 109 mmol/L CARBON DIOXIDE 20 (L) 22 - 32 mmol/L ANION GAP 12 5 - 15 mmol/L BLOOD UREA NITROGEN 20 5 - 27 mg/dL CREATININE 0.99 0.40 - 1.00 mg/dL GLUCOSE 132 (H) 65 - 99 mg/dL CALCIUM 8.3 (L) 8.5 - 10.5 mg/dL TOTAL PROTEIN 6.8 6.0 - 8.0 g/dL ALBUMIN 2.8 (L) 3.2 - 5.3 g/dL ALKALINE PHOSPHATASE 100 39 - 130 U/L AST 24 <=41 U/L ALT 15 <=31 U/L BILIRUBIN,TOTAL 1.2 0.3 - 1.2 mg/dL EGFR Non-Race Dependent 62 >=60 ml/min/1.73sq.m CBC auto differential Collection Time: 02/24/25 3:44 PM Result Value Ref Range WBC 19.7 (H) 4 - 11 x10E9/L RBC Count 4.61 3.8 - 5.2 X10E12/L Hemoglobin 9.6 (L) 11.7 - 15.5 g/dL Hematocrit 31.9 (L) 35 - 47 % MCV 69 (L) 80 - 100 fL MCH 20.9 (L) 27 - 34 pg MCHC 30.3 (L) 32 - 36 g/dL RDW 18.5 (H) 11.5 - 15 % Platelet Count 263 150 - 450 X10E9/L MPV 7.4 7 - 12 fL Neutrophils % 94.0 % Lymphocytes % 2.2 % Monocytes % 3.5 % Eosinophils % 0.0 % Basophils % 0.3 % Neutrophils Absolute (A) 18.5 (H) 1.5 - 6.6 10*3/uL Lymphocytes Absolute 0.4 (L) 1.0 - 3.5 10*3/uL Monocytes Absolute 0.7 0.0 - 0.9 10*3/uL Eosinophils Absolute 0.0 0.0 - 0.4 10*3/uL Basophils Absolute 0.1 0.0 - 0.2 10*3/uL Hypochromia 2+ Differential Type AUTOMATED DIFFERENTIAL CBC auto differential Collection Time: 02/24/25 5:28 PM Result Value Ref Range WBC 20.6 (H) 4 - 11 x10E9/L RBC Count 4.57 3.8 - 5.2 X10E12/L Hemoglobin 9.6 (L) 11.7 - 15.5 g/dL Hematocrit 31.6 (L) 35 - 47 % MCV 69 (L) 80 - 100 fL MCH 21.0 (L) 27 - 34 pg MCHC 30.4 (L) 32 - 36 g/dL RDW 18.6 (H) 11.5 - 15 % Platelet Count 287 150 - 450 X10E9/L MPV 7.6 7 - 12 fL Neutrophils % 94.2 % Lymphocytes % 2.1 % Monocytes % 3.1 % Eosinophils % 0.0 % Basophils % 0.6 % Neutrophils Absolute (A) 19.4 (H) 1.5 - 6.6 10*3/uL Lymphocytes Absolute 0.4 (L) 1.0 - 3.5 10*3/uL Monocytes Absolute 0.6 0.0 - 0.9 10*3/uL Eosinophils Absolute 0.0 0.0 - 0.4 10*3/uL Basophils Absolute 0.1 0.0 - 0.2 10*3/uL Hypochromia 2+ Differential Type AUTOMATED DIFFERENTIAL B-type natriuretic peptide Collection Time: 02/24/25 5:28 PM Result Value Ref Range BNP 61 <=100 pg/mL Comprehensive metabolic panel Collection Time: 02/24/25 5:28 PM Result Value Ref Range SODIUM 132 (L) 134 - 146 mmol/L POTASSIUM 4.2 3.5 - 5.0 mmol/L CHLORIDE 99 98 - 109 mmol/L CARBON DIOXIDE 21 (L) 22 - 32 mmol/L ANION GAP 12 5 - 15 mmol/L BLOOD UREA NITROGEN 19 5 - 27 mg/dL CREATININE 0.99 0.40 - 1.00 mg/dL GLUCOSE 132 (H) 65 - 99 mg/dL CALCIUM 8.3 (L) 8.5 - 10.5 mg/dL TOTAL PROTEIN 7.0 6.0 - 8.0 g/dL ALBUMIN 2.8 (L) 3.2 - 5.3 g/dL ALKALINE PHOSPHATASE 105 39 - 130 U/L AST 21 <=41 U/L ALT 15 <=31 U/L BILIRUBIN,TOTAL 1.3 (H) 0.3 - 1.2 mg/dL EGFR Non-Race Dependent 62 >=60 ml/min/1.73sq.m D-Dimer Collection Time: 02/24/25 5:28 PM Result Value Ref Range D DIMER 7,187 (H) 1 - 255 ug/mL Magnesium Collection Time: 02/24/25 5:28 PM Result Value Ref Range MAGNESIUM 2.4 1.8 - 2.6 mg/dL Troponin I, High Sensitivity Collection Time: 02/24/25 5:28 PM Narrative The following orders were created for panel order Troponin I, High Sensitivity. Procedure Abnormality Status --------- ------ Troponin I, High Sensiti...[[id number]] Normal Final result Troponin I, High Sensiti...[[id number]] Normal Final result Please view results for these tests on the individual orders. Protime & INR Collection Time: 02/24/25 5:28 PM Result Value Ref Range PROTIME 13.4 (H) 9.8 - 13.2 sec INR 1.2 0.9 - 1.2 APTT Collection Time: 02/24/25 5:28 PM Result Value Ref Range APTT 23 (L) 26 - 37 sec Lactate w/ Reflex Collection Time: 02/24/25 5:28 PM Result Value Ref Range LACTATE W/REFLEX 1.5 0.4 - 2.0 mmol/L Narrative Result did not trigger repeat Lactate, re-order if needed. Troponin I, High Sensitivity 0 Hour Collection Time: 02/24/25 5:28 PM Result Value Ref Range TROPONIN I, HIGH SENSITIVITY 7 <16 ng/L Troponin I, High Sensitivity 1 Hour Collection Time: 02/24/25 6:47 PM Result Value Ref Range TROPONIN I, HIGH SENSITIVITY 6 <16 ng/L Anti XA unfractionated heparin Collection Time: 02/24/25 11:43 PM Result Value Ref Range ANTI XA UFH 1.22 (HH) 0.30 - 0.70 IU/mL Anti XA unfractionated heparin Collection Time: 02/25/25 7:12 AM Result Value Ref Range ANTI XA UFH 0.92 (HH) 0.30 - 0.70 IU/mL Extra Tubes Collection Time: 02/25/25 7:12 AM Narrative The following orders were created for panel order Extra Tubes. Procedure Abnormality Status --------- ------ PST TOP[[id number]] Final result Please view results for these tests on the individual orders. PST TOP Collection Time: 02/25/25 7:12 AM Result Value Ref Range Extra Tube Auto Resulted Hemoglobin Collection Time: 02/25/25 7:13 AM Result Value Ref Range Hemoglobin 9.1 (L) 11.7 - 15.5 g/dL Platelet count Collection Time: 02/25/25 7:13 AM Result Value Ref Range Platelet Count 240 150 - 450 X10E9/L MPV 7.2 7 - 12 fL Anti XA unfractionated heparin Collection Time: 02/25/25 1:58 PM Result Value Ref Range ANTI XA UFH 0.71 (H) 0.30 - 0.70 IU/mL Urinalysis Collection Time: 02/25/25 8:26 PM Specimen: Urine Result Value Ref Range COLOR Tripp (A) Yellow TURBIDITY Clear Clear SPECIFIC GRAVITY 1.015 1.003 - 1.035 NITRITE Negative Negative PH,URINE 6.0 5.0 - 8.5 LEUKOCYTE ESTERASE Small (A) Negative PROTEIN 50 mg/dL (A) Negative KETONES (URINE) Negative Negative UROBILINOGEN 2 eu/dL (A) <1.1 eu/dL BILIRUBIN (URINE) Negative Negative BLOOD/HGB Large (A) Negative MUCOUS Present (A) None R.B.CELLS 68 (H) 0 - 5 SQUAMOUS EPITHELIUM 10 (H) 0 - 5 W.B.CELLS 19 (H) 0 - 5 GLUCOSE (URINE) Negative Negative Anti XA unfractionated heparin Collection Time: 02/25/25 8:49 PM Result Value Ref Range ANTI XA UFH 0.48 0.30 - 0.70 IU/mL Anti XA unfractionated heparin Collection Time: 02/26/25 2:59 AM Result Value Ref Range ANTI XA UFH 0.15 (L) 0.30 - 0.70 IU/mL Basic Metabolic Panel Collection Time: 02/26/25 2:59 AM Result Value Ref Range SODIUM 133 (L) 134 - 146 mmol/L POTASSIUM 4.0 3.5 - 5.0 mmol/L CHLORIDE 102 98 - 109 mmol/L CARBON DIOXIDE 23 22 - 32 mmol/L ANION GAP 8 5 - 15 mmol/L BLOOD UREA NITROGEN 21 5 - 27 mg/dL CREATININE 0.93 0.40 - 1.00 mg/dL GLUCOSE 93 65 - 99 mg/dL CALCIUM 8.1 (L) 8.5 - 10.5 mg/dL EGFR Non-Race Dependent 67 >=60 ml/min/1.73sq.m Magnesium Collection Time: 02/26/25 2:59 AM Result Value Ref Range MAGNESIUM 2.4 1.8 - 2.6 mg/dL CBC without diff Collection Time: 02/26/25 2:59 AM Result Value Ref Range WBC 12.5 (H) 4 - 11 x10E9/L RBC Count 4.18 3.8 - 5.2 X10E12/L Hemoglobin 8.9 (L) 11.7 - 15.5 g/dL Hematocrit 29.0 (L) 35 - 47 % MCV 70 (L) 80 - 100 fL MCH 21.4 (L) 27 - 34 pg MCHC 30.7 (L) 32 - 36 g/dL RDW 18.7 (H) 11.5 - 15 % Platelet Count 231 150 - 450 X10E9/L MPV 7.4 7 - 12 fL Iron and TIBC Collection Time: 02/26/25 2:59 AM Result Value Ref Range IRON 12 (L) 50 - 170 ug/dL TRANSFERRIN 229 168 - 336 mg/dL IRON BINDING 321 250 - 425 ug/dL IRON SATURATION 4 (L) 15 - 50 % SATURATION Ferritin Collection Time: 02/26/25 2:59 AM Result Value Ref Range FERRITIN 78 11 - 307 ng/mL Folate Collection Time: 02/26/25 2:59 AM Result Value Ref Range FOLIC ACID 3.3 (L) >5.8 ng/mL Vitamin B12 Collection Time: 02/26/25 2:59 AM Result Value Ref Range VITAMIN B12 110 (L) 180 - 914 pg/mL LDH Collection Time: 02/26/25 2:59 AM Result Value Ref Range LDH 232 100 - 235 U/L CA 125 Collection Time: 02/26/25 2:59 AM Result Value Ref Range CA 125 1,528 (H) <=35 U/mL Cancer antigen 19-9 Collection Time: 02/26/25 2:59 AM Result Value Ref Range CA 19 9 22.5 <=35.0 U/mL Haptoglobin Collection Time: 02/26/25 11:14 AM Result Value Ref Range HAPTOGLOBIN 381 (H) 32 - 228 mg/dL CEA Collection Time: 02/26/25 11:14 AM Result Value Ref Range CEA 24.6 (H) <=3.0 ng/mL Anti XA unfractionated heparin Collection Time: 02/26/25 12:05 PM Result Value Ref Range ANTI XA UFH 1.01 (HH) 0.30 - 0.70 IU/mL No results found for: HGBA1C No results found for: PREALBUMIN Lab Results Component Value Date CA125 1,528 (H) 02/26/2025 No components found for: HE4 Lab Results Component Value Date CEA 24.6 (H) 02/26/2025 No components found for: CA19-9 Imaging Studies: I have reviewed the following imaging: CT ABDOMEN AND PELVIS W CONT (02/24/25) CT images of the abdomen and pelvis are obtained. Intravenous contrast was administered. Images arereformatted in the sagittal and coronal planes. There are no prior exams available for comparison. There is diffuse free intraperitoneal fluid. Large partially solid and partially cystic lesion noted within the right adnexa measuring 16 cm x 12 cm x 11 cm. Ovarian carcinoma is the diagnosis of exclusion. Regions of soft tissue nodularity noted anterior lower abdomen. There are small bilateral lower lobe pulmonary nodules. Right basilar atelectasis also appreciated. Pancreas unremarkable. Adrenal symmetric. Large dependently layering gallstone. Small bowel is nondistended without evidence of obstruction. Mild thoracolumbar degenerative changes. No acute osseous abnormalities. Prominent nodes appreciated at the diya hepatis. IMPRESSION: Large partially solid partially cystic lesion within the right adnexa. Ovarian carcinoma is diagnosis of exclusion. 2.5 cm solid right renal lesion. Renal cell carcinoma is diagnosis of exclusion. Diffuse free intraperitoneal fluid. Small bilateral noncalcified lower lobe pulmonary nodules and lower anterior abdominal soft tissue nodules, likely metastasis. Prominent nodes in diya hepatis. CT CTA CHEST (02/25/25) There are moderate right-sided pulmonary emboli. No appreciable right heart strain. Right lower lobe infiltrate or atelectasis appreciated. There are bilateral pulmonary nodules appreciated most suggestive of metastasis, as previous described. Limited images of the upper abdomen again show free intraperitoneal fluid. Refer to previously dictated CT abdomen. No obvious mediastinal lymphadenopathy. Coronary arterial atherosclerotic calcification noted. Osseous structures appear grossly intact. IMPRESSION: Moderate right sided pulmonary emboli without evidence of right heart strain. Right lower lobe infiltrate or atelectasis. Numerous pulmonary nodules, likely metastasis. Problem List: Principal Problem: DVT (deep venous thrombosis) (CMS-HCC) Assessment/Plan: Caren Suarez is a 69 y.o. female admitted with pulmonary embolism. Found to have new partially solid/partially cystic lesion in R adnexa on imaging measuring [id number] and evidence of metastatic disease including peritoneal and pulmonary metastasis. New pelvic mass, c/f metastatic disease New vaginal bleeding on heparin - CTAP (02/24): There is diffuse free intraperitoneal fluid. Large partially solid and partially cystic lesion noted within the right adnexa measuring 16 cm x 12 cm x 11 cm. Regions of soft tissue nodularity noted anterior lower abdomen. 2.5 cm solid right renal lesion. - CTA chest (02/25): Moderate right sided pulmonary emboli without evidence of right heart strain. Right lower lobe infiltrate or atelectasis. Numerous pulmonary nodules, likely metastasis. - CA-125: 1,528 - CEA: 24.6 - Other tumor markers ordered: CA 19-9, HE4 - Pelvic exam significant for 5cc of dark red blood in vaginal vault. No obvious masses or lesion in vagina or on cervix - Pap smear collected - TVUS ordered - IR consulted for drainage of ascites and biopsy of soft tissue nodules noted in anterior lower abdomen. - Will coordinate with IR and primary team to schedule this. Patient on heparin drip for pulmonary embolism. - WBC 31.6 > 29.0 (02/26) - leukocytosis likely secondary to malignancy - Hgb 9.6 > 9.1 > 8.9 (02/26) - Urinalysis (02/25): LE+, large blood, 50mg/dL protein, WBCs, RBCs, Squamous cells - urine culture pending 2. Pulmonary Embolism - On heparin drip - Management per primary team Mariaelena Berumen MD Vacuum Cleaner Repairer Resident, PGY-1 If questions or concerns, please contact via G[facility]On pager at [phone]. Cosigned by Jose Carlos Day MD at 02/26/2025 2:52 PM EDT * Eleni Harding APRN-ASSISTANT DIRECTOR OF [employer]IDENCE LIFE - 03/03/2025 1:39 PM EDT Images from the original note were not included. Progress note 1CLICK [facility] Adult Hospitalist Name: Caren Suarez Acct: [id number] Room: [place] [address] Admit Date: 02/25/2025 5:24 PM PCP: Riya Diego MD Assesment/Plan Admit to Med surg unit Cardiac Monitoring Acute PE/DVT CTA of chest reported moderate right-sided pulmonary emboli without evidence of heart strain Continue heparin infusion. Hold infusion at midnight Echocardiogram showed normal ejection fraction, no evidence of right heart strain Pulmonary consulted Numerous pulmonary nodules likely metastasis Consult pulmonary General oncology consult Status post soft tissue biopsy 02/28 Await pathology from tissue biopsy Pulmonary consult Newly diagnosed Ovarian mass Gynecology/Oncology was consulted Transvaginal ultrasound: 18.2 x 16.3 x 11.2 cm, multiloculated, cystic and solid lesion in the pelvis Thin prep negative for malignancy, negative high-risk HPV Status post paracentesis and soft tissue nodule biopsy today 02/28/2025 with removal of 1850 mL of ludivina ascites fluid OBGYN recommended GI evaluation giving elevated tumor markers, plan for EGD and colonoscopy on Monday. Patient is currently on Rocephin and Flagyl per ID. Urinary tract infection/bacterial peritonitis S/P paracentesis 02/28/2025 - nucleated cells are elevated at 1900 with neutrophil predominance (60%) - this is consistent with bacterial peritonitis Peritoneal fluid culture is pending Urinalysis came back positive for UTI Urine culture came back negative Patient is continued on IV antibiotics IV Rocephin and Flagyl Gastroenterology is following for EGD colonoscopy plan for 03/04/2025 Heparin will be held overnight on they request History of tobacco abuse Quit 12 years ago, with a 42 year history of smoking Outpatient PFT DVT and GI prophylaxis Continue to monitor/telemetry/CBC with diff daily/BMP daily Continue medications as below Scheduled Medications: cefTRIAXone (ROCEPHIN) IV, 2,000 mg, intravenous, Q24H metroNIDAZOLE, 500 mg, intravenous, Q12H pantoprazole, 40 mg, oral, QAM AC sodium chloride, 3 mL, intravenous, Q12H JOSE [COMPLETED] sodium,potassium,mag sulfates, 177 mL, oral, Once AND [START ON 03/04/2025] sodium,potassium,mag sulfates, 177 mL, oral, Once Infusions: dextrose 5 % in water, 100 mL/hr heparin, 300-3,500 Units/hr, Last Rate: 1,100 Units/hr (03/03/25 0848) sodium chloride 0.9 %, 20 mL/hr PRN medications acetaminophen, 650 mg, Q6H PRN dextrose, 15 g, PRN dextrose 5 % in water, 100 mL/hr, Continuous PRN dextrose 50 % in water (D50W), 25 mL, PRN glucagon (human recombinant), 1 mg, PRN heparin (porcine), 5,000 Units, PRN magnesium sulfate, 2,000 mg, PRN magnesium sulfate, 4,000 mg, PRN ondansetron, 4 mg, Q4H PRN potassium chloride, 30-50 mEq, PRN Or potassium chloride, 30-50 mEq, PRN Or potassium chloride IV (Adult), 10 mEq, PRN sennosides-docusate sodium, 1 tablet, Q12H PRN sodium chloride, 10 mL, PRN sodium chloride, 3 mL, PRN sodium chloride, 25 mL, PRN sodium chloride 0.9 %, 20 mL/hr, Continuous PRN Code Status: Full Code Chief Complaint: No chief complaint on file. Subjective: Patient seen and examined at bedside. Resting on room air. Continued on IV antibiotics. Continued on IV heparin infusion. Hold at midnight. Afebrile Pt. Denies any CP, SOB, palpitation, JARRELL, dizziness, chills, cough, cold, changes in urination, BM or skin changes or any pain. History of Present Illness: Caren Suarez is a 69 y.o. female who presents with No chief complaint on file. Caren Suarez is an 69 y.o. White or female. came to the hospital with Abnormal test results. Patient states that she has been experiencing cold-like symptoms with to thepoint where she was having hard time breathing. She went to her PCP who placed her on steroids withno improvement. She then was on antibiotic therapy with still no improvement. 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 She also underwent venous duplex of bilateral lower extremities that reported rightacute DVT and left deep calf muscle vein DVT. she was Was then sent to the ER at [place] to be further evaluated and treated. She was transferred to [facility] for further evaluation and treatment. No significant past medical history of coronary artery disease, COPD diabetes or history of stroke.Patient does have a history of tobacco abuse quit 12 years ago Patient admitted for further management. I have personally reviewed the past medical history, past surgical history, medications, social history, and family history, and summarized in the note. Review of Systems: All 12 systems are reviewed and negative otherwise mentioned in HPI. Past Medical History: Past Problem List: Patient Active Problem List Diagnosis Date Noted DVT (deep venous thrombosis) ([facility]) 02/25/2025 Colon cancer screening 02/24/2025 Hematochezia 02/24/2025 Past Medical History: Diagnosis Date Deep vein thrombosis ([facility]) Past Surgical History: No past surgical history on file. Medications Prior to Admission: Prior to Admission medications Not on File Allergies: Penicillin Social History: Tobacco: reports that she has quit smoking. Her smoking use included cigarettes. She has never usedsmokeless tobacco. Alcohol: reports no history of alcohol use. Drug Use: reports no history of drug use. Family History: Family History Problem Relation Age of Onset Breast cancer Neg Hx Physical Exam: Vitals: BP 148/65 Pulse 76 Temp 36.8 ??C (98.2 ??F) (Oral) Resp 16 Ht 157.5 cm (5' 2.01 ) Wt 71.5 kg (157 lb 10.1 oz) SpO2 96% BMI 28.82 kg/m?? Temp (24hrs), Av.6 ??C (97.9 ??F), Min:36.4 ??C (97.5 ??F), Max:36.8 ??C (98.3 ??F) Weight: Wt Readings from Last 3 Encounters: 03/03/25 71.5 kg (157 lb 10.1 oz) 02/24/25 74.4 kg (164 lb) General appearance - alert, well appearing, and in no acute distress Mental status - oriented to person, place, and time with normal affect Head - normocephalic and atraumatic Eyes - pupils equal and reactive, extraocular eye movements intact, conjunctiva clear Ears - hearing appears to be intact Nose - no drainage noted Mouth - mucous membranes moist. Neck - supple, no carotid bruits, positive cervical lymphadenopathy Chest - clear to auscultation, normal effort Heart - normal rate, regular rhythm, no murmur Abdomen - soft, nontender, nondistended, bowel sounds present all four quadrants, no masses, hepatomegaly or splenomegaly Neurological - normal speech, no focal findings or movement disorder noted, cranial nerves II through XII grossly intact Extremities - peripheral pulses palpable, no pedal edema or calf pain with palpation Skin - no gross lesions, rashes, or induration noted Data: I/O (24Hr): No intake or output data in the 24 hours ending 03/03/25 1537 Labs and Diagnostic studies: @LABDAILY3@ No results found for: HGBA1C Results from last 7 days Lab Units 02/24/25 1728 BNP pg/mL 61 Results from last 7 days Lab Units 02/24/25 1728 INR 1.2 Microbiology Results Procedure Component Value Units Date/Time Body fluid culture includes gram stain [[id number]] Collected: 02/28/25 1325 Specimen: Sterile Body Fluid from Abdomen Updated: 03/03/25 0746 CULTURE RESULTS NO GROWTH 3 DAYS GRAM STAIN White Blood Cells Present No organisms seen On Concentrated Smear Urine Culture Urine, Clean Catch Midstream [[id number]] Collected: 02/25/252025 Specimen: Urine, Clean Catch Midstream Updated: 02/26/25 1653 CULTURE RESULTS 10-50,000 ORGANISMS/mL NORMAL UROGENITAL YOLY Echo complete W/O contrast Result Date: 02/26/2025 Left Ventricle: Left ventricle is small. Systolic function is normal with an ejection fraction of 60-65%. No segmental wall motion abnormalities. Grade I diastolic dysfunction (impaired relaxation) is present. Lateral E' is 11.70 cm/s. Medial E' is 7.94 cm/s. Right Ventricle: Right ventricular sizeappears normal. The right ventricular basal diameter is 22.0 mm. Systolic function is normal. Aortic Valve: There is trace to mild regurgitation. There is no evidence of aortic valve stenosis. CT angiogram chest Result Date: 02/25/2025 CLINICAL INFORMATION: DVT's TECHNIQUE: CT CTA CHEST CTA of the chest was obtained post intravenous administration of contrast. Post processed three- dimensional maximum intensity projection imaging was acquired and evaluated. There are moderate right-sided pulmonary emboli. No appreciable right heart strain. Right lower lobe infiltrate or atelectasis appreciated. There are bilateral pulmonary nodules appreciated most suggestive of metastasis, as previous described. Limited images of the upper abdomen again show free intraperitoneal fluid. Refer to previously dictated CT abdomen. No obvious medi astinal lymphadenopathy. Coronary arterial atherosclerotic calcification noted. Osseous structures appear grossly intact. IMPRESSION: Moderate right sided pulmonary emboli without evidence of right heart strain. Right lower lobe infiltrate or atelectasis. Numerous pulmonary nodules, likely metastasis. I personally called these findings to nurse Muhammad of the clinical service at time of dictation.All CT scans at this facility use dose modulation, iterative reconstruction, and/or weight based dosing when appropriate to reduce radiation dose to as low as reasonably achievable. Finalized by Chau Nicole MD on 02/25/2025 7:09 PM Echo/Stress: Echo complete W/O contrast Result Date: 02/26/2025 Left Ventricle: Left ventricle is small. Systolic function is normal with an ejection fraction of 60-65%. No segmental wall motion abnormalities. Grade I diastolic dysfunction (impaired relaxation) is present. Lateral E' is 11.70 cm/s. Medial E' is 7.94 cm/s. Right Ventricle: Right ventricular sizeappears normal. The right ventricular basal diameter is 22.0 mm. Systolic function is normal. Aortic Valve: There is trace to mild regurgitation. There is no evidence of aortic valve stenosis. EKG: No results found. Imaging: Ultrasound pelvic with transvaginal Result Date: 02/28/2025 Narrative: US PELVIC WITH TRANSVAGINAL HISTORY: Ovarian mass COMPARISON: CT abdomen pelvis dated 02/24/2025 TECHNIQUE: Transabdominal and transvaginal sonographic evaluation of the pelvis. Transabdominal imaging performed to evaluate for extra adnexal pelvic pathology. Transvaginal imaging performedfor better delineation of the adnexal and endometrial contents. Real time grayscale, color flow imaging, and duplex spectral Doppler waveform analysis was performed of the major arterial inflow and venous outflow structures of the pelvic mass with arterial and venous spectral waveforms obtained, documented, and reviewed in the setting of provided history. FINDINGS: Uterus: 5.3 x 3.3 x 1.6 cm Endom etrial Thickness: 0.2 cm The uterus demonstrates appropriate size and echo pattern. The endometriumis unremarkable. The ovaries are not confidently identified as individual structures. There is a 18.2 x 16.3 x 11.2 cm, multiloculated, cystic and solid lesion in the pelvis, which demonstrates consulting intern al color flow, arterial waveforms, and venous waveforms. Color score: 4. Free fluid in the pelvis with low level echoes. On comparison CT abdomen pelvis, there was peritoneal nodularity. IMPRESSION: O-RADS US 5 (high risk): 18.2 cm cystic and solid lesion in the pelvis with ascites and peritoneal nodularity. Finalized by Jason Humphrey MD on 02/28/2025 7:10 PM IR percutaneous needle biopsy abdomen retroperitoneal Result Date: 02/28/2025 Narrative: EXAM: CT-guided percutaneous core biopsy of anterior peritoneal nodule CLINICAL INDICATION: Peritoneal masses unclear etiology CONSENT: The risks, benefits, and expectations of the procedure were explained to the patient who signed a written consent. TIME OUT: Ball Protocol Time OutVerification performed. ANESTHESIA: 100 mcg of fentanyl was given for pain control 1% Lidocaine used as local anesthetic. TECHNIQUE:All CT scans at this facility use dose modulation, iterative reconstruction, and/or weight based dosing when appropriate to reduce radiation dose to as low as reasonably achievable. PROCEDURE: In the supine position, the peritoneal nodule was evaluated with CT which revealed a good window for biopsy. The overlying skin was prepped and draped in a sterile fashion and infiltrated with 1% lidocaine. Using intermittent CT guidance, a 17-gauge guiding needle was advanced into the targeted structure and a route sales representative image was obtained and saved in PACS. A [id number] core biopsy needle was then advanced through the guiding needle, and multiple 18-gauge core biopsies were obtained and submitted in formalin. Gelfoam tract embolization was performed. The needle was removed and hemostasis achieved by manual compression. Postprocedural scanning demonstratesexpected post biopsy changes and no immediate complication. A dressing was placed. The patient tolerated the procedure well. Estimated blood loss: Minimal Complications: None. IMPRESSION: Successful CT-guided core needle biopsy of peritoneal nodule. Finalized by Deena Palma MD on 02/28/2025 4:02 PM IR paracentesis diagnostic treatment with guidance Result Date: 02/28/2025 Narrative: EXAM: ULTRASOUND-GUIDED PARACENTESIS CLINICAL HISTORY: abdominal ascitis. CONSENT: The risks and benefits of the procedure were explained to the patient signed written consent. PROCEDURE/FINDINGS: All four quadrant of the abdomen were evaluated with ultrasound which showed small amount of free fluid in the abdomen . The left lower quadrant was prepped and draped in a sterile fashion and the skin infiltrated with 1% lidocaine. Real time ultrasound guidance was used during the punctureof the peritoneal cavity with an 18-gauge Yueh needle under direct ultrasound needle visualization,and an ultrasound route sales representative image was obtained and saved in PACS. The catheter was connected to vacuum bottles, and approximately 1.8 liters of ludivina fluid was removed and submitted for analysis. The needle was removed and dressing placed. No immediate complications. Estimated blood loss: Minimal IMPRESSION: Ultrasound guided paracentesis with removal of 1800 mL of ludivina fluid. Finalized by Deena Palma MD on 02/28/2025 4:00 PM Echo complete W/O contrast Result Date: 02/26/2025 Narrative: Left Ventricle: Left ventricle is small. Systolic function is normal with an ejection fraction of 60-65%. No segmental wall motion abnormalities. Grade I diastolic dysfunction (impaired relaxation) is present. Lateral E' is 11.70 cm/s. Medial E' is 7.94 cm/s. Right Ventricle: Right ventricular size appears normal. The right ventricular basal diameter is 22.0 mm. Systolic function is normal. Aortic Valve: There is trace to mild regurgitation. There is no evidence of aortic valve stenosis. CT angiogram chest Result Date: 02/25/2025 Narrative: CLINICAL INFORMATION: DVT's TECHNIQUE: CT CTA CHEST CTA of the chest was obtained post intravenous administration of contrast. Post processed three- dimensional maximum intensity projectionimaging was acquired and evaluated. There are moderate right-sided pulmonary emboli. No appreciableright heart strain. Right lower lobe infiltrate or atelectasis appreciated. There are bilateral pulmonary nodules appreciated most suggestive of metastasis, as previous described. Limited images of the upper abdomen again show free intraperitoneal fluid. Refer to previously dictated CT abdomen. No obvious mediastinal lymphadenopathy. Coronary arterial atherosclerotic calcification noted. Osseous structures appear grossly intact. IMPRESSION: Moderate right sided pulmonary emboli without evidenceof right heart strain. Right lower lobe infiltrate or atelectasis. Numerous pulmonary nodules, likely metastasis. I personally called these findings to nurse Muhammad of the clinical service at time ofdictation. All CT scans at this facility use dose modulation, iterative reconstruction, and/or weight based dosing when appropriate to reduce radiation dose to as low as reasonably achievable. Finalized by Chau Nicole MD on 02/25/2025 7:09 PM Vas venous duplex lwr bilateral Result Date: 02/24/2025 Narrative: Right: Dilated noncompressible distal femoral, popliteal, posterior tibial, peroneal anddeep calf muscle veins with hypoechoic intraluminal content and absent spectral Doppler signals. Remaining visualized deep venous segments are compressible with spontaneous phasic spectral Doppler waveforms. Superficial veins are compressible. Left: Limited contralateral duplex evaluation completed. Dilated Non-compressible deep calf muscle veins with hypoechoic intraluminal content and absent spectral Doppler signals. Common femoral, femoral, and popliteal veins are compressible without intraluminal content. Spontaneous, common femoral, femoral and popliteal spectral Doppler signals. Evaluation of superficial veins was not performed. Conclusions: RIGHT:ACUTE femoropopliteal deep vein thrombosis (DVT).ACUTE deep tibioperoneal vein thrombosis (DVT). ACUTE deep calf muscle vein thrombosis (DVT). NO EVIDENCE of superficial vein thrombosis of the lower extremity. LEFT:Limited visualization o f lower extremity venous segments.ACUTE deep calf muscle vein thrombosis (DVT). CT abdomen and pelvis with contrast Result Date: 02/24/2025 Narrative: CLINICAL INFORMATION: Localized swelling, mass and lump, lower limb, right; Generalized abdominal pain; Abdominal distension; SOB (shortness of breath); Tachycardia TECHNIQUE: CT ABDOMEN AND PELVIS W CONT CT images of the abdomen and pelvis are obtained. Intravenous contrast was administered. Images are reformatted in the sagittal and coronal planes. There are no prior exams available for comparison. There is diffuse free intraperitoneal fluid. Large partially solid and partially cystic lesion noted within the right adnexa measuring 16 cm x 12 cm x 11 cm. Ovarian carcinoma is the diagnosis of exclusion. Regions of soft tissue nodularity noted anterior lower abdomen. There are small bilateral lower lobe pulmonary nodules. Right basilar atelectasis also appreciated. Pancreas unremarkable. Adrenal symmetric. Large dependently layering gallstone. Small bowel is nondistended without evidence of obstruction. Mild thoracolumbar degenerative changes. No acute osseous abnormalities. Prominent nodes appreciated at the diya hepatis. IMPRESSION: Large partially solid partially cystic lesion within the right adnexa. Ovarian carcinoma is diagnosis of exclusion. 2.5 cm solid right renal lesion. Renal cell carcinoma is diagnosis of exclusion. Diffuse free intraperitoneal fluid. Small bilateral noncalcified lower lobe pulmonary nodules and lower anterior abdominal soft tissue nodules, likely metastasis. Prominent nodes in diya hepatis. THIS REPORT CONTAINS A SIGNIFICANT RESULT AND/OR RECOMMENDATION, WHICH REQUIRES THE ATTENTION OF THE LICENSED CAREGIVER RESPONSIBLE FOR THIS PATIENT. THEREFORE, I SPECIFICALLY DESIGNATED THIS REPORT TO BE TELEPHONED BY THE RADIOLOGY DEPARTMENT. FINDINGS WERE INSTRUCTED TO BE CALLED TO THE CLINICAL SERVICE ON 02/24/2025 AT 4:[address] scans at this facility use dose modulation, iterative reconstruction, and/or weight based dosing when appropriate to reduce radiation dose to as low as reasonably achievable. Finalized by Chau Nicole MD on 02/24/2025 4:15 PM X-ray chest 2 views Result Date: 02/19/2025 Narrative: XR CHEST 2 VWS HISTORY: Bronchitis COMPARISON: None FINDINGS: The trachea is midline. The cardiomediastinal silhouette is not enlarged. No pneumothorax or pleural effusion. Bibasilar linear airspace opacities. No focal consolidation. Multilevel degenerative changes of the thoracic spine.IMPRESSION: * Bibasilar linear airspace opacities most compatible with atelectasis. Approved by Resident Liu Apodaca MD on 02/19/2025 9:45 AM IDheeraj MD have personally reviewed the image(s) and agree with and/or edited the report Finalized by Dheeraj Wang MD on 02/19/2025 10:56 AM Meds: Current Facility-Administered Medications: acetaminophen (TYLENOL) tablet 650 mg, 650 mg, oral, Q6H PRN, ELLIOTT Yoo, 325 mg at 03/01/25 0824 cefTRIAXone (ROCEPHIN) 2,000 mg in sodium chloride 0.9 % 50 mL IVPB W/ADAPTER, 2,000 mg, intravenous, Q24H, ELLIOTT Chavez, Stopped at 03/03/25 1326 dextrose (GLUTOSE) 40 % gel 15 g, 15 g, oral, PRN, Neelima Ta STUDENT TRUCK DRIVER-ASSISTANT DIRECTOR OF [employer] dextrose 5 % (D5W) infusion, 100 mL/hr, intravenous, Continuous PRN, Neelima Ta STUDENT TRUCK DRIVER-ASSISTANT DIRECTOR OF [employer] dextrose 50 % in water (D50W) 50% solution 25 mL, 25 mL, intravenous, PRN, Neelima Ta STUDENT TRUCK DRIVER-ASSISTANT DIRECTOR OF [employer] glucagon HCL injection 1 mg, 1 mg, intramuscular, PRN, Neelima Ta STUDENT TRUCK DRIVER-ASSISTANT DIRECTOR OF [employer] heparin (porcine) injection 5,000 Units, 5,000 Units, intravenous, PRN, Atria ChauMELISSAN-ASSISTANT DIRECTOR OF [employer], 5,000 Units at 02/26/25 0502 heparin infusion 66524 units/500 mL in 0.45% NaCl (50 units/mL premix), 300- 3,500 Units/hr, intravenous, Continuous, Eleni Harding APRN-DUYEN, Last Rate: 22 mL/hr at 03/03/25 0848, 1,100 Units/hr at03/03/25 0848 magnesium sulfate IVPB 2000 mg/50 mL in iso-osmotic water (40 mg/mL premix), 2,000 mg, intravenous,PRN, Neelima Ta STUDENT TRUCK DRIVER-ASSISTANT DIRECTOR OF [employer] magnesium sulfate IVPB 4000 mg/100 mL in iso-osmotic water (40 mg/mL premix), 4,000 mg, intravenous, PRN, Neelima Ta STUDENT TRUCK DRIVER-ASSISTANT DIRECTOR OF [employer] metroNIDAZOLE (FLAGYL) IVPB 500 mg/100 mL in iso-osmotic sodium chloride (5 mg/mL premix), 500 mg, intravenous, Q12H, Dario Burris MD ondansetron (PF) (ZOFRAN) injection 4 mg, 4 mg, intravenous, Q4H PRN, Neelima Ta STUDENT TRUCK DRIVER-ASSISTANT DIRECTOR OF [employer] pantoprazole (PROTONIX) EC tablet 40 mg, 40 mg, oral, QAM AC, Neelima Ta APRN-ASSISTANT DIRECTOR OF [employer], 40 mg at 03/03/25 0535 potassium chloride (K-TAB,KLOR-CON) CR tablet 30-50 mEq, 30-50 mEq, oral, PRN OR potassium chloride (KAYCIEL) 20 mEq/15 mL solution 30-50 mEq, 30-50 mEq, oral, PRN OR potassium chloride IVPB 10 mEq/100 mL in water (0.1 mEq/mL premix), 10 mEq, intravenous, PRN, Neelima Ta STUDENT TRUCK DRIVER-ASSISTANT DIRECTOR OF [employer] sennosides-docusate sodium (SENOKOT-S) 8.6-50 mg 1 tablet, 1 tablet, oral, Q12H PRN, Neelima Ta STUDENT TRUCK DRIVER-ASSISTANT DIRECTOR OF [employer] sodium chloride 0.9 % flush 10 mL, 10 mL, intravenous, PRN, Deena Branch MD, 10 mL at 02/25/25 1857 sodium chloride 0.9 % flush 3 mL, 3 mL, intravenous, PRN, Neelima R Ta, STUDENT TRUCK DRIVER-ASSISTANT DIRECTOR OF [employer] sodium chloride 0.9 % flush 3 mL, 3 mL, intravenous, Q12H JOSE, Neelima R Keyon, STUDENT TRUCK DRIVER-ASSISTANT DIRECTOR OF [employer], 3 mL at 03/03/25 0855 sodium chloride 0.9 % flush bag, 25 mL, intravenous, PRN, Neelima Ta, STUDENT TRUCK DRIVER-ASSISTANT DIRECTOR OF [employer] sodium chloride 0.9 % infusion, 20 mL/hr, intravenous, Continuous PRN, Neelima Ta STUDENT TRUCK DRIVER-ASSISTANT DIRECTOR OF [employer] [COMPLETED] sodium,potassium,mag sulfates (SUPREP) 17.5-3.13-1.6 gram solution 177 mL, 177 mL, oral, Once, 177 mL at 03/03/25 1250 AND [START ON 03/04/2025] sodium,potassium,mag sulfates (SUPREP) 17.5-3.13-1.6 gram solution 177 mL, 177 mL, oral, Once, Nay Segura MD Copy sent to Dr. Riya Diego MD This note was created with the assistance of a speech-recognition program. Although the intention is to generate a document that actually reflects the content of the visit, no guarantees can be provided that every mistake has been identified and corrected by editing. Note was updated later by me after physical examination and completion of the assessment. ELLIOTT Finney 03/04/25 1352 * Deena Branch MD - 02/26/2025 11:07 AM EDT Images from the original note were not included. CC : Abnormal test results HPI: Caren Suarez is an 69 y.o. White or female. came to the hospital with Abnormal test results. Patient states that she has been experiencing cold-like symptoms with to thepoint where she was having hard time breathing. She went to her PCP who placed her on steroids withno improvement. She then was on antibiotic therapy with still no improvement. 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 She also underwent venous duplex of bilateral lower extremities that reported rightacute DVT and left deep calf muscle vein DVT. she was Was then sent to the ER at [place] to be further evaluated and treated. She was transferred to [facility] for further evaluation and treatment. No significant past medical history of coronary artery disease, COPD diabetes or history of stroke.Patient does have a history of tobacco abuse quit 12 years ago Past Medical History: Diagnosis Date Deep vein thrombosis (CMS-HCC) No past surgical history on file. Family History Problem Relation Age of Onset Breast cancer Neg Hx Social History Socioeconomic History Marital status: Single Spouse name: Not on file Number of children: Not on file Years of education: Not on file Highest education level: Not on file Occupational History Not on file Tobacco Use Smoking status: Former Types: Cigarettes Smokeless tobacco: Never Substance and Sexual Activity Alcohol use: Never Drug use: Never Sexual activity: Not on file Other Topics Concern Not on file Social History Narrative Not on file Social Drivers of Health Financial Resource Strain: Not on file Food Insecurity: No Food Insecurity (02/25/2025) Hunger Screening Food Insecurity - Worry: Never True Food Insecurity - Inability: Never True Transportation Needs: No Transportation Needs (02/25/2025) PRAPARE - Transportation Lack of Transportation (Medical): No Lack of Transportation (Non-Medical): No Physical Activity: Not on file Stress: Not on file Social Connections: Not on file Interpersonal Safety: Not At Risk (02/25/2025) Humiliation, Afraid, Rape, and Kick questionnaire Fear of Current or Ex-Partner: No Emotionally Abused: No Physically Abused: No Sexually Abused: No Housing Instability: Low Risk (02/25/2025) Housing Instability Housing Instability: No Allergies Allergen Reactions Penicillin Prior to Admission medications Not on File Review of systems : beside what I mentioned in the HPI , 10 systems were reviewed and were negative. Physical examination : BP 139/64 Pulse 83 Temp 36.7 ??C (98.1 ??F) (Oral) Resp 16 Ht 157.5 cm (5' 2.01 ) Wt 74.8kg (164 lb 14.5 oz) SpO2 94% BMI 30.15 kg/m?? General Appearance: Alert, cooperative, no distress. Head: Normocephalic, without obvious abnormality, atraumatic Eyes: PERRL, conjunctiva/corneas clear, EOM's intact Ears: Normal external ear canals, both ears Nose: Nares normal, septum midline, mucosa normal, no drainage or sinus tenderness Throat: Lips, mucosa, and tongue normal; teeth and gums normal Neck: Supple, symmetrical, trachea midline, no adenopathy, thyroid: not enlarged, symmetric, no tenderness/mass/nodules, no carotid bruit or JVD Lungs: Clear to auscultation bilaterally, respirations unlabored, tactile fremitus are normal B/L Chest Wall: No tenderness or deformity Heart: Regular rate and rhythm, S1, S2 normal, no murmur, rub or gallop, PMI is not displaced Abdomen: Soft, non-tender, bowel sounds active all four quadrants, no masses, no organomegaly Extremities: Extremities normal, atraumatic, no cyanosis or edema Pulses: 2+ and symmetric Skin: Skin color, texture, turgor normal, no rashes or lesions Lymph nodes: Cervical, supraclavicular, and axillary nodes normal Neurologic: Nonfocal Lab Results Component Value Date WBC 12.5 (H) 02/26/2025 HGB 8.9 (L) 02/26/2025 HCT 29.0 (L) 02/26/2025 MCV 70 (L) 02/26/2025 PLT 231 02/26/2025 Lab Results Component Value Date CALCIUM 8.1 (L) 02/26/2025 K 4.0 02/26/2025 CO2 23 02/26/2025 CL 102 02/26/2025 BUN 21 02/26/2025 Lab Results Component Value Date INR 1.2 02/24/2025 PROTIME 13.4 (H) 02/24/2025 No results found for: MAGNESIUM Assessment Acute PE/DVT Numerous pulmonary nodules likely metastasis Newly diagnosed Ovarian mass Urinary tract infection History of tobacco abuse Plan Admit to medical floor with avionics systems repairer vital signs closely Monitor CBC BMP magnesium daily Acute PE/DVT CTA of chest reported moderate right-sided pulmonary emboli without evidence of heart strain Was started on heparin infusion Obtain echocardiogram Pulmonary consulted Numerous pulmonary nodules likely metastasis Consult pulmonary General oncology consult Pulmonary consult Newly diagnosed Ovarian mass Gynecology/Oncology was consulted Urinary tract infection Urinalysis came back positive for UTI Follow urine culture Started on IV ceftriaxone History of tobacco abuse Quit 12 years ago, with a 42 year history of smoking Oral Protonix for GI prophylaxis No further pharmacological need for DVT prophylaxis The note was completed using EMR. Every effort was made to ensure accuracy; however, inadvertent computerized logistics project manager errors may be present. Deena Castro [facility] Hospitalist documented in this encounter Procedure Notes * Ashok Hwang DO - 03/10/2025 1:07 PM EDT Ultrasound guided arterial line placement Procedure Income Tax Adjuster: Ashok Hwang DO Supervising Attending: Orion Damico MD Indication: hemodynamic instability Preoperative diagnosis: hypotension requiring closer monitoring of hemodynamics Postoperative diagnosis: hypotension requiring closer monitoring of hemodynamics Anesthesia: Pt was intubated and sedated Consent: emergent situation Procedure summary: The patient was prepped and draped in a sterile fashion. A strong L radial arterial pulse was palpated. Using Seldinger technique the left radial artery was accessed with return ofbright red arterial blood. A 20 gauge 15 centimeter long peripheral arterial catheter was placed over guidewire into the L radial artery and attached to the transducer monitor with adequate visualization of an arterial wave. The line was sutured into place and a sterile dressing was placed over it.Attending physician was supervising the entire procedure. Ashok Hwang DO [facility] Emergency Medicine PGY2 Cosigned by Orion Damico MD at 03/11/2025 11:27 AM EDT Associated attestation - Orion Damico MD - 03/11/2025 11:27 AM EDT Attending Attestation: I saw the patient. I participated and was physically present during the critical/fuentes portions of the service. I was directly involved in the management and treatment plan of the patient. I reviewed the resident's note. Additional Notes/Findings: * Дмитрий Lara MD - 03/08/2025 3:13 AM EDT Bronchoscopy Procedure Note Procedure Date: 03/08/2025 Pre-Procedure Diagnosis: Mucus plug Post-Procedure Diagnosis: Negative for mucus plug Procedure: Bronchoscopy Surgeon: Paulette Pandey MD Resident: Дмитрий Lara MD PGY-3 Findings: Negative for mucus plug Indications: Caren Suarez is a 69 y.o. female who presented with white out of left lung. The planfor a bedside bronchoscopy was decided. Informed consent not obtained due to emergent nature of procedure. Procedure in Detail: A time-out was performed to verify correct patient, procedure, and site. The patient was positionedproperly in the supine position. Cardiopulmonary monitoring was in place. Sedative medications wereadministered. The bronchoscope was introduced into the endotracheal tube and advanced until the venecia was identified. The bronchoscope was then advanced down the right mainstem bronchus and then into the individual lobes. Nothing was identified. The bronchoscope was then retracted to the level of the venecia andthen advanced down the left mainstem bronchus. The bronchoscope was then advanced into individual lobes in a similar fashion to the right side. No significant mucus plug was identified. The bronchoscope was then retracted to the level of the venecia and retracted through the endotracheal tube, completing the bronchoscopy. The patient tolerated the procedure well. A post-procedural chest X-ray was ordered. Dr. Pandey was present for the entirety of the procedure. Complications: None Immediate Дмитрий Lara MD General Surgery Resident, PGY-3 Cosigned by Paulette Pandey MD at 03/08/2025 8:33 AM EDT Associated attestation - Paulette Pandey MD - 03/08/2025 8:33 AM EDT I have reviewed the documentation of the operative procedure with the Resident/PA, and discussed the pertinent operative findings with the team. [facility] General Surgeons Surgical Critical Care Office: [phone] Please feel free to call with questions at anytime. * Дмитрий Lara MD - 03/08/2025 3:03 AM EDT Procedure Note Procedure Date: 03/08/2025 Name: Caren Suarez : 1955 Surgeon: Dr. Pandey Resident: Дмитрий Lara MD PGY-3 Pre-op Diagnosis: hemothorax Post-op Diagnosis: Small hemothorax Procedure: Left 28F chest tube insertion Anesthesia Type: Fentanyl drip Complications: none immediate Findings: Small amounts of bloody output Indications: Caren Suarez is a 69 y.o. female who presented with chest xray showing white out of left lung. Bronchoscopy performed did not show significant mucus plug. Decision was made to place chest tube. Informed consent was not obtained due to emergent nature of procedure. Procedure Details The patient was positioned with the ipsilateral arm extended above the head. The patient???s lateral chest was prepped and draped in usual sterile fashion. Using a #11 scalpel, a 4 cm skin incision was made in the anterior-mid axillary line, at the 4th-5th intercostal space, near the inframammary crease. Using blunt dissection, a subcutaneous tunnel was created towards the superior edge of the rib to avoid injury to the neurovascular bundle. The pleural space was entered bluntly, with return ofbloody drainage. Blunt finger sweep confirmed proper positioning in the pleural space. A 28 Armenian chest tube was inserted using a Kristin clamp and directed posteriorly. The chest tube was connected to a closed- drainage system and placed to suction, with immediate return of small amounts of bloody drainage. The chest tube was secured to the skin with silk suture and a sterile, occlusive dressing was applied. Chest x-ray is pending. Dr. Pandey was immediately available throughout the entirety of the procedure. Дмитрий Lara MD General Surgery Resident, PGY-3 Cosigned by Paulette Pandey MD at 03/08/2025 8:27 AM EDT Associated attestation - Paulette Pandey MD - 03/08/2025 8:27 AM EDT I have reviewed the documentation of the operative procedure with the Resident/PA, and discussed the pertinent operative findings with the team. [facility] General Surgeons Surgical Critical Care Office: [phone] Please feel free to call with questions at anytime. documented in this encounter Consult Notes * Kerri Hawk APRN-DUYEN - 03/20/2025 1:15 PM EDTAssociated Order(s): CONSULT WOUND CARE SERVICES Images from the original note were not included. Wound Care Service Line - Consult Note Date of Admission: 02/25/2025 5:24 PM Reason for Consult: coccyx pressure injury PCP: Riya Diego MD Admission Chief Complaint: No chief complaint on file. History of Present Illness: Caren Suarez is a 70 y.o. former smoker female who presented to [facility] ER on 02/25/25 with abnormal diagnostic testing including large right ovarian mass and bilateral DVTs. Patient was transferred to [facility] for further evaluation and treatment. She is s/p Exploratory Laparotomy, Bilateral Salpingo-Oophorectomy, Total Colectomy on 03/07/25,and also Exploratory Laparotomy, Ileostomy Creation, SBO, Wound Closure, Application Wound Vac Midsection on 03/09/25. Patient remains hospitalized and Wound Care Service Line was consulted today for coccygeal pressure injury . Contributing Co-Morbidites that may be acute and/or chronic directly affecting the wound(s) and healing process: Prolonged hospitalization, previous Tobacco use, Colon CA with metastasis. Wound Care consulted for coccyx pressure injury - wounds located on buttocks on consult assessment. Current wound care includes: None HPI information obtained from patient and chart review. Patient denies wounds or drainage from buttock regions prior to yesterday. She reports the skin breakdown was found on her buttock region yesterday. Patient reports mild tenderness of the buttocks. Wound(s) cleansed, assessed and dressed during visit. Patient tolerated with minimal discomfort. Tobacco Use: Medium Risk (03/11/2025) Patient History Smoking Tobacco Use: Former Smokeless Tobacco Use: Never Passive Exposure: Not on file PMH: Past Medical History: Diagnosis Date Deep vein thrombosis ([facility]-HCC) PSH: Past Surgical History: Procedure Laterality Date APPLICATION WOUND VAC MIDSECTION N/A 03/09/2025 Performed by Ghassan Castillo MD at [facility]OS[facility] WOUND ABDOMEN N/A 03/09/2025 Performed by Ghassan Castillo MD at [facility] ILEOSTOMY CREATION N/A 03/09/2025 Performed by Ghassan Castillo MD at [facility] LAPAROTOMY EXPLORATORY N/A 03/09/2025 Performed by Ghassan Castillo MD at [facility] LAPAROTOMY EXPLORATORY N/A 03/07/2025 Performed by Ghassan Castillo MD at [facility] RESECTION BOWEL SMALL N/A 03/09/2025 Performed by Ghassan Castillo MD at [facility] SALPINGO-OOPHORECTOMY Bilateral 03/07/2025 Performed by Faith Celis MD at [facility] TOTAL COLECTOMY N/A 03/07/2025 Performed by Ghassan Castillo MD at [facility] Allergies: Allergies Allergen Reactions Penicillin Home Meds: No medications prior to admission. Social History: Social History Socioeconomic History Marital status: Single Spouse name: Not on file Number of children: Not on file Years of education: Not on file Highest education level: Not on file Occupational History Not on file Tobacco Use Smoking status: Former Types: Cigarettes Smokeless tobacco: Never Substance and Sexual Activity Alcohol use: Never Drug use: Never Sexual activity: Not on file Other Topics Concern Not on file Social History Narrative Not on file Social Drivers of Health Financial Resource Strain: Not on file Food Insecurity: No Food Insecurity (02/25/2025) Hunger Screening Food Insecurity - Worry: Never True Food Insecurity - Inability: Never True Transportation Needs: No Transportation Needs (02/25/2025) PRAPARE - Transportation Lack of Transportation (Medical): No Lack of Transportation (Non-Medical): No Physical Activity: Not on file Stress: Not on file Social Connections: Not on file Interpersonal Safety: Not At Risk (02/25/2025) Humiliation, Afraid, Rape, and Kick questionnaire Fear of Current or Ex-Partner: No Emotionally Abused: No Physically Abused: No Sexually Abused: No Housing Instability: Low Risk (02/25/2025) Housing Instability Housing Instability: No Family History: Family History Problem Relation Age of Onset Breast cancer Neg Hx I have personal reviewed past medical history including surgeries, social history, and family history. I have also reviewed allergies and home medications. They are documented in this note to their detail, and if there are none noted, they will further indicate no pertinent history. Review of Systems Review of Systems Constitutional: Negative for chills and fever. Respiratory: Negative for cough and shortness of breath. Cardiovascular: Negative for chest pain and leg swelling. Gastrointestinal: Negative for diarrhea, nausea and vomiting. Reports abdominal incisional pain. Musculoskeletal: Positive for gait problem. Skin: Positive for wound. Neurological: Negative for dizziness, light-headedness and numbness. Physical Exam Vital Signs: BP 133/71 Pulse 87 Temp 36.8 ??C (98.3 ??F) (Oral) Resp 16 Ht 157.5 cm (5' 2.01 ) Wt 72.1 kg (158 lb 15.2 oz) SpO2 95% BMI 29.07 kg/m?? Physical Exam Vitals reviewed. Constitutional: General: She is not in acute distress. Appearance: She is not toxic-appearing or diaphoretic. HENT: Head: Normocephalic and atraumatic. Eyes: General: No scleral icterus. Extraocular Movements: Extraocular movements intact. Cardiovascular: Rate and Rhythm: Normal rate. Comments: Extremities warm with brisk refill. Pulmonary: Effort: Pulmonary effort is normal. No respiratory distress. Abdominal: Palpations: Abdomen is soft. Tenderness: There is no abdominal tenderness. There is no guarding. Comments: NPWT dressing in place. Ostomy present and beefy red. Musculoskeletal: Right lower leg: Edema present. Left lower leg: Edema present. Skin: General: Skin is warm and dry. Findings: No erythema. Comments: See wound assessment Neurological: General: No focal deficit present. Mental Status: She is alert and oriented to person, place, and time. Psychiatric: Comments: Pleasant, answers questions appropriately Labs Reviewed: Results from last 7 days Lab Units 03/20/25 0534 03/18/25 0401 03/17/25 0327 03/16/25 0904 03/16/25 0304 WBC x10E9/L 8.0 8.4 9.0 10.7 9.1 HEMOGLOBIN g/dL 9.8* 10.0* 9.8* 11.1* 9.5* HEMATOCRIT % 30.6* 30.9* 30.5* 34.7* 29.8* PLATELETS X10E9/L 333 221 192 209 169 Results from last 7 days Lab Units 03/20/25 1129 03/20/25 0819 03/20/25 0705 03/20/25 0431 03/20/25 0113 03/18/25 1059 03/18/25 1013 03/18/25 0606 03/18/25 0401 03/17/25 2157 03/17/25 2050 03/17/25 1556 POTASSIUM mmol/L -- -- 4.1 -- -- -- 4.0 -- 4.2 -- 4.0 4.3 CO2 mmol/L -- -- 24 -- -- -- 23 -- 24 -- 24 26 BUN mg/dL -- -- 6 -- -- -- 6 -- 7 -- 7 7 CREATININE mg/dL -- -- 0.41 -- -- -- 0.45 -- 0.45 -- 0.48 0.43 BEDSIDE GLUCOSE mg/dL 75 83 -- 86 78 < > -- < > -- < > -- -- GLUCOSE mg/dL -- -- 76 -- -- -- 81 -- 66 -- 76 81 < > = values in this interval not displayed. Results from last 7 days Lab Units 03/20/25 0704 03/19/25 0448 03/18/25 0401 03/17/25 0327 03/16/25 0304 INR 1.5* 1.3* 1.2 1.1 1.2 PROTIME sec 16.8* 14.3* 13.7* 12.8 13.2 Pathology/Cytology Results No results found for the last 168 hours. Microbiology Results No results found for the last 168 hours. Studies Reviewed: Echo complete W/O contrast Result Date: 02/26/2025 Left Ventricle: Left ventricle is small. Systolic function is normal with an ejection fraction of 60-65%. No segmental wall motion abnormalities. Grade I diastolic dysfunction (impaired relaxation) is present. Lateral E' is 11.70 cm/s. Medial E' is 7.94 cm/s. Right Ventricle: Right ventricular sizeappears normal. The right ventricular basal diameter is 22.0 mm. Systolic function is normal. Aortic Valve: There is trace to mild regurgitation. There is no evidence of aortic valve stenosis. CT angiogram chest Result Date: 02/25/2025 CLINICAL INFORMATION: DVT's TECHNIQUE: CT CTA CHEST CTA of the chest was obtained post intravenous administration of contrast. Post processed three- dimensional maximum intensity projection imaging was acquired and evaluated. There are moderate right-sided pulmonary emboli. No appreciable right heart strain. Right lower lobe infiltrate or atelectasis appreciated. There are bilateral pulmonary nodules appreciated most suggestive of metastasis, as previous described. Limited images of the upper abdomen again show free intraperitoneal fluid. Refer to previously dictated CT abdomen. No obvious medi astinal lymphadenopathy. Coronary arterial atherosclerotic calcification noted. Osseous structures appear grossly intact. IMPRESSION: Moderate right sided pulmonary emboli without evidence of right heart strain. Right lower lobe infiltrate or atelectasis. Numerous pulmonary nodules, likely metastasis. I personally called these findings to nurse Muhammad of the clinical service at time of dictation.All CT scans at this facility use dose modulation, iterative reconstruction, and/or weight based dosing when appropriate to reduce radiation dose to as low as reasonably achievable. Finalized by Chau Nicole MD on 02/25/2025 7:09 PM Wound Assessment: Type of Wound/Aetiology: new pressure ulcer Severity: Stage 2 limited to breakdown of skin Location: right buttock Measurement: 3 cm x 2.2 cm x <0.1 cm Undermining: none Tunneling: none Drainage/Exudate/Odor: scant serosanguineous no odor Wound bed: Exposed dermis Wound Edges: attached Periwound: pink and blanchable. Measureable improvement: New wound encounter- stage 2 pressure ulcer of right buttock. No overt s/sof active wound infection or cellulitis. Type of Wound/Aetiology: new pressure injury/DTI Severity: deep tissue injury (DTI) Location: left buttock Measurement: 3.5 cm x 5 cm Drainage/Exudate/Odor: none Wound bed: intact skin, maroon/purple, and nonblanchable Wound Edges: attached Periwound: intact, pink, and blanchable. Measureable improvement: New wound encounter- DTI left buttock. No overt s/s of active wound infection or cellulitis. Principal Problem: DVT (deep venous thrombosis) (CMS-HCC) Active Problems: Colon cancer screening Hematochezia Pressure ulcer of right buttock, stage 2 (CMS-HCC) Pressure injury of deep tissue of left buttock Wound Plan Dressing: Right buttock wound and Left buttock DTI: Wash area and Dry completely Apply Cavilon Advanced and Repeat application every 3 days Follow these 4 steps for application: - Light Pressure - Minimal Overlapping - One Coat - Allow 2-minute Dry Time (not tacky) Apply Dressing Offloading/Skin Care/Edema Management: - specialty DILMA bed - waffle offloading cushion when setting - turn and reposition minimally every 2 hours - pad and protect bony prominences - moisturize dry skin, do not massage vigorously - elevate bilateral lower extremity/ies and float heel(s) on pillows or offloading boots - elevate upper extremities on pillows Antibiotics: None indicated from wound care perspective Studies/Testing directly affecting wound/wound healing: reviewed as noted above. Medical Management: Per Primary Service Discharge wound care orders placed. Wound care will continue to follow while inpatient, orders written for bedside RN's to complete daily skin assessment and wound care orders daily and/or as written. May discharge from wound care perspective when medically stable as advised by other services. Follow up: Referral placed for the outpatient wound care clinic at [place] within 1-2 weeks of discharge. With other services as advised upon discharge. Thank you for allowing us to participate in the care of this patient. Please feel free to call us with any questions or concerns. ELLIOTT Isabel 03/20/25 [facility] Wound and Vascular Service Line 8a-3p [phone] - pager M- 8a-3p Secure Chat preferred & fastest response time Needs outside these hours please contact the reciprocating department: general surgery, vascular surgery, ortho or podiatry. Thank you! Total time spent was 35-44 minutes: Preparing to see the patient (e.g., review of tests) Obtaining and/or reviewing separately obtained history Performing a medically appropriate examination and/or evaluation Counseling and educating the patient/family/caregiver Ordering medications, tests, or procedures Referring and communicating with other health customer care voice consultant (not separately reported) Documenting clinical information in the electronic or other health record Independently interpreting results (not separately reported) and communicating results to the patient/family/caregiver Care coordination (not separately reported) ELLIOTT Isabel 03/20/25 1417 * JHONATAN Moran - 03/11/2025 3:22 PM EDTAssociated Order(s): IP CONSULT TO NUTRITION SERVICES BRIEF NUTRITION NOTE Reason to be seen: consult for tf management NUTRITION INTERVENTIONS: Enteral Nutrition: Will initiate trickle tube feeds, per Dr. Merino with CRS. Initiate Osmolite 1.5 @ 10 ml/hr. Coordination of Care: Spoke with Dr. Wilber Anderson, RD, LD Clinical Dietitian [facility] [phone] * Darrius Richey MD - 03/10/2025 2:00 PM EDT Images from the original note were not included. . VASCULAR, INPATIENT INITIAL CONSULTATION: Patient ID: Caren Suarez, 69 y.o. female. Date of Admission: 02/25/2025 5:24 PM Reason for Consult: PE/DVT Referring Physician: Ghassan Castillo MD PCP: Riya Diego MD ASSESSMENT: - Acute provoked right-sided PE without right heart strain, slightly decreased clot burden - Acute bilateral DVT, (right fem to deep calf, left deep calf) - Thrombocytopenia, T-score low probability - large rectal mass with obstruction status post ex lap, total colectomy and bilateral salpingo oophorectomy - Unknown primary, numerous pulmonary nodules, peritoneal carcinomatosis, renal cell carcinoma - Shock state, requiring pressor support, currently off pressors - Acute hypoxic respiratory failure requiring mechanical ventilation, peep of 12 FiO2 of 40% RECOMMENDATIONS: - Resume heparin once cleared by Colorectal surgery and titrate to maintain anti Xa 0.3-0.7 - Monitor hemoglobin, platelets, PTT and any signs of bleeding - If platelet trend continues to decline consider getting a anti PF4 antibodies - Avoid SCDs, recommend elevation and Tommy compression in the lower extremity bilaterally - Echo and bilateral lower extremity venous Doppler reviewed - Monitor during hospital stay before deciding long-term anticoagulation management - Rest of care per primary and consulting team Chief Complaint: Cold-like symptoms and abnormal labs History of Present Illness: Caren Suarez is a 69 y.o. White or female with a history ofbronchitis presents to the hospital with abnormal labs and cold-like symptoms. Patient is intubatedand sedated unable to obtain HPI. All of the HPI was obtained through chart checking. Patient started experiencing cold-like symptoms without having any shortness of breath. She went to her PCP and was placed on steroids and antibiotics without improvement. 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 She also underwent venous duplex of bilateral lower extremities that reported right acute DVT and left deep calf muscle vein DVT. she was Was then sent to the ER at [place] to be further evaluated and treated. She was transferred to [facility] for further evaluation and treatment. On 03/08 patient went for ex lap and total colectomy with bilateral salpingo oophorectomy. Intubated and mechanically ventilated and was in a shock state requiring pressor support. After surgery patient required more pressors for and vascular surgery was consulted for further recommendation. Repeat CT showed a slightly decreased clot burden burden, echo showed mild RV dilatation and no intervention at this time per vascular surgery. Vascular medicine was consulted for anticoagulation recommendation. Past Medical History: Diagnosis Date Deep vein thrombosis (CMS-HCC) Past Surgical History: Procedure Laterality Date APPLICATION WOUND VAC MIDSECTION N/A 03/09/2025 Performed by Ghassan Castillo MD at [facility] CLOSURE WOUND ABDOMEN N/A 03/09/2025 Performed by Ghassan Castillo MD at [facility] ILEOSTOMY CREATION N/A 03/09/2025 Performed by Ghassan Castillo MD at [facility] LAPAROTOMY EXPLORATORY N/A 03/09/2025 Performed by Ghassan Castillo MD at [facility] LAPAROTOMY EXPLORATORY N/A 03/07/2025 Performed by Ghassan Castillo MD at [facility] RESECTION BOWEL SMALL N/A 03/09/2025 Performed by Ghassan Castillo MD at [facility] SALPINGO-OOPHORECTOMY Bilateral 03/07/2025 Performed by Faith Celis MD at [facility] TOTAL COLECTOMY N/A 03/07/2025 Performed by Ghassan Castillo MD at [facility] Allergies Allergen Reactions Penicillin Meds: Scheduled Meds: cefTRIAXone (ROCEPHIN) IV, 2,000 mg, intravenous, Q24H chlorhexidine, 15 mL, mouth/throat, BID folic acid, 1 mg, oral, Daily insulin lispro, 2-10 Units, subcutaneous, Q6H metroNIDAZOLE, 500 mg, intravenous, Q12H pantoprazole, 40 mg, intravenous, Q12H Continuous Infusions: dextrose 5 % in water, 100 mL/hr D5 % and lactated ringer's, 75 mL/hr, Last Rate: 75 mL/hr (03/10/25 1349) fentaNYL, 25-200 mcg/hr, Last Rate: 200 mcg/hr (03/10/25 1246) heparin, 300-3,500 Units/hr, Last Rate: 950 Units/hr (03/10/25 1340) midazolam, 0.5-7 mg/hr, Last Rate: 0.5 mg/hr (03/10/25 0506) sodium chloride 0.9 %, 20 mL/hr, Last Rate: 50 mL/hr (03/09/25 0844) sodium chloride 0.9 %, 3 mL/hr, Last Rate: 3 mL/hr (03/10/25 0506) PRN Meds:. calcium gluconate OR calcium gluconate OR calcium gluconate dextrose dextrose 5 % in water dextrose 50 % in water (D50W) glucagon (human recombinant) heparin (porcine) hydrALAZINE magnesium sulfate OR magnesium sulfate midazolam ondansetron potassium chloride OR potassium chloride potassium chloride in water OR potassium chloride in water sodium phosphate IV OR sodium phosphate IV - central line OR sod phos di, mono-K phos mono sodium chloride sodium chloride sodium chloride 0.9 % Social History Socioeconomic History Marital status: Single Spouse name: Not on file Number of children: Not on file Years of education: Not on file Highest education level: Not on file Occupational History Not on file Tobacco Use Smoking status: Former Types: Cigarettes Smokeless tobacco: Never Substance and Sexual Activity Alcohol use: Never Drug use: Never Sexual activity: Not on file Other Topics Concern Not on file Social History Narrative Not on file Social Drivers of Health Financial Resource Strain: Not on file Food Insecurity: No Food Insecurity (02/25/2025) Hunger Screening Food Insecurity - Worry: Never True Food Insecurity - Inability: Never True Transportation Needs: No Transportation Needs (02/25/2025) PRAPARE - Transportation Lack of Transportation (Medical): No Lack of Transportation (Non-Medical): No Physical Activity: Not on file Stress: Not on file Social Connections: Not on file Interpersonal Safety: Not At Risk (02/25/2025) Humiliation, Afraid, Rape, and Kick questionnaire Fear of Current or Ex-Partner: No Emotionally Abused: No Physically Abused: No Sexually Abused: No Housing Instability: Low Risk (02/25/2025) Housing Instability Housing Instability: No Family History Problem Relation Age of Onset Breast cancer Neg Hx Review of Systems unable to obtain patient is intubated and sedated Physical Exam Vital Signs: Blood pressure 91/63, pulse 80, temperature 36.8 ??C (98.2 ??F), resp. rate 20, .5 cm (5' 2.01 ), weight 84.4 kg (186 lb 1.1 oz), SpO2 96%. Respiratory Source: O2 Device: Endotracheal tube Admission Weight: Weight: 74.8 kg (164 lb 14.5 oz) General appearance: Resting comfortably, winces to pain, not following commands Skin: Skin warm and intact. HEENT: pupils equal and throat not injected, ETT in place Neck: supple, Neg Adenopathy, No JVD Lungs: no wheezing or rhonchi, lungs clear to auscultation. Heart: NL S1S2 . RRR Abdomen: Tender to palpation, no masses, incision dry clean and intact, wound VAC intact Lower Extremities: Significant bilateral lower extremity swelling, +2 pitting edema Musculoskeletal: Unable to obtain, patient is intubated and sedated Imaging, reviewed: Lab Review Lab Results Component Value Date WBC 10.3 03/10/2025 HGB 10.7 (L) 03/10/2025 HCT 33.1 (L) 03/10/2025 MCV 80 03/10/2025 PLT 117 (L) 03/10/2025 Lab Results Component Value Date GLU 117 (H) 03/10/2025 CALCIUM 7.9 (L) 03/10/2025 K 4.5 03/10/2025 CO2 26 03/10/2025 BUN 31 (H) 03/10/2025 CREATININE 1.13 (H) 03/10/2025 Lab Results Component Value Date INR 1.4 (H) 03/10/2025 INR 1.7 (H) 03/09/2025 INR 1.6 (H) 03/08/2025 PROTIME 16.3 (H) 03/10/2025 PROTIME 19.0 (H) 03/09/2025 PROTIME 17.9 (H) 03/08/2025 Lab Results Component Value Date PTT 136 (HH) 03/08/2025 Cosigned by Robert Wylie MD at 03/10/2025 5:34 PM EDT Associated attestation - Robert Wyile MD - 03/10/2025 5:34 PM EDT Attending Attestation: I saw the patient. I participated and was physically present during the critical/fuentes portions of the service. I was directly involved in the management and treatment plan of the patient. I reviewed the resident's note. Robert Wylie III, MD * Abby Palmer MD - 03/08/2025 2:45 AM EDT [facility] Academic Critical Care CONSULTATION Name: Caren Suarez Date: 03/08/2025 Length of Stay: 11 day(s) Chief Complaint: No chief complaint on file. History of Present Illness: Caren Suarez is a 69 y.o. female with past medical history of DVT, HTN, who was admitted to [facility] after a CT A/P at an OSH demonstrated large partially solid cystic lesions. At that time she was found to have multiple DVTs and PEs. She was transferred to [facility] for a higher level of care. On arrival, her DVTs were being treated with heparin. Colorectal surgery was consulted on 03/07 for possible bowel obstruction. At that time a CT A/P demonstrated colonic dilation with transition at the sigmoid junction. There is concern for acute malignant obstruction for known mucinous adenocarcinoma with colorectal origin. After stabilization of the patient's INR with [facility] on 03/07, the decisionwas made to take her to the operating room as a joint case between Colorectal on [employer] Specialist/Onc. At the beginning of the case, patient initially desaturated prior to incision. It was believed thatthis was due to the significant malignant ascites compressing the lungs. Decision was made to proceed with the case, and after decompression the patient's respiratory status significantly improved. The patient later went into cardiac arrest within the operating room and a code was initiated. Compressions were begun, epi was administered. After 2 rounds of compressions ROSC was obtained. ABThera was placed and the patient was transferred to the surgical ICU intubated and sedated. Past Medical History: Diagnosis Date Deep vein thrombosis (CMS-HCC) No past surgical history on file. Review of systems unable to be obtained at this time as patient is intubated and sedated. No medications prior to admission. amLODIPine, 10 mg, oral, Daily cefTRIAXone (ROCEPHIN) IV, 2,000 mg, intravenous, Q24H fentaNYL, , , folic acid, 1 mg, oral, Daily metroNIDAZOLE, 500 mg, intravenous, Q12H pantoprazole, 40 mg, intravenous, Q12H D5 % and 0.45 % sodium chloride 1,000 mL with sodium bicarbonate 8.4 % (1 mEq/mL) 75 mEq infusion, 100 mL/hr, Last Rate: 100 mL/hr (03/07/251743) dextrose 5 % in water, 100 mL/hr D5 % and 0.45 % sodium chloride, 50 mL/hr, Last Rate: 50 mL/hr (03/07/25 182) EPINEPHrine, 0.02-0.2 mcg/kg/min, Last Rate: 0.24 mcg/kg/min (03/08/25 0135) fentaNYL, 25-200 mcg/hr, Last Rate: 50 mcg/hr (03/08/25 0116) midazolam, 0.5-7 mg/hr, Last Rate: 2 mg/hr (03/08/25 0048) sodium chloride 0.9 %, 20 mL/hr, Last Rate: Stopped (03/07/25 170) sodium chloride 0.9 %, 20 mL/hr sodium chloride 0.9 %, 20 mL/hr sodium chloride 0.9 %, 20 mL/hr vasopressin (PITRESSIN) 40 Units in sodium chloride 0.9 % 40 mL (1 Units/mL) infusion, 0.04 Units/min, Last Rate: 0.04 Units/min (03/08/25 0132) Allergies Allergen Reactions Penicillin Family History Problem Relation Age of Onset Breast cancer Neg Hx Social History Socioeconomic History Marital status: Single Tobacco Use Smoking status: Former Types: Cigarettes Smokeless tobacco: Never Substance and Sexual Activity Alcohol use: Never Drug use: Never Social Drivers of Health Food Insecurity: No Food Insecurity (02/25/2025) Hunger Screening Food Insecurity - Worry: Never True Food Insecurity - Inability: Never True Transportation Needs: No Transportation Needs (02/25/2025) PRAPARE - Transportation Lack of Transportation (Medical): No Lack of Transportation (Non-Medical): No Interpersonal Safety: Not At Risk (02/25/2025) Humiliation, Afraid, Rape, and Kick questionnaire Fear of Current or Ex-Partner: No Emotionally Abused: No Physically Abused: No Sexually Abused: No Housing Instability: Low Risk (02/25/2025) Housing Instability Housing Instability: No Temp: [33.3 ??C (91.9 ??F)-36.7 ??C (98 ??F)] 34 ??C (93.2 ??F) Pulse: [82-110] 108 Resp: [10-24] 16 BP: (120-151)/(64-71) 142/68 Arterial Line BP: (99-164)/(48-54) 99/49 FiO2 (%): [100 %] 100 % SpO2: [77 %-100 %] 97 % O2 Device: Endotracheal tube O2 Flow Rate (L/min): [0 L/min] 0 L/min O2 Device: Endotracheal tube General: Intubated, sedated HENT: Head atraumatic, normocephalic, external ears and nose are normal Eyes: Pupils reactive Pulmonary: ET tube in place, PRVC-AC, FiO2 100%, respiratory rate 18, Peep 16 Cardiovascular: Tachycardic, radial pulses 2+ Abdomen: Left in discontinuity, ABThera in place Musculoskeletal: No injuries or wounds to extremities Neurological: Unable to assess Skin: Warm, dry, without jaundice Ventilator Settings Vent Mode: PRVC-AC FiO2 (%): 100 % Resp Rate (Set): 18 Avea Vt (Set, L): 0.45 Liter PEEP/CPAP (cm H2O): 16 cm H20 Insp Time (sec): 0.85 sec Trigger Sensitivity Flow (L/min): 1 L/min Trigger Sensitivity Pressure (cm H2O): 3 cm H2O Humidification: Heat and moisture exchanger Results from last 3 days Lab Units 03/08/254203/08/253103/07/2562503/06/25 0536 03/05/25 0403 BUN mg/dL -- 29* 35* 33* 23 CREATININE mg/dL -- 1.18* 1.16* 1.22* 0.95 POTASSIUM mmol/L -- 3.5 3.7 4.2 4.0 POC POTASSIUM mmol/L 3.4* -- -- -- -- CO2 mmol/L -- 19* 22 18* 17* CHLORIDE mmol/L -- 105 103 104 106 MAGNESIUM mg/dL -- 2.1 2.6 2.6 2.4 AST U/L -- 108* -- -- -- ALT U/L -- 33* -- -- -- ALK PHOS U/L -- 37* -- -- -- Results from last 3 days Lab Units 03/08/253103/07/25 1940 03/06/25 1401 INR 2.3* 1.9* 4.2* PROTIME sec 25.8* 21.2* 47.8* Results from last 3 days Lab Units 03/08/25 0043 03/08/253103/07/2562503/06/25 1401 03/06/25 0536 03/05/25 0403 WBC x10E9/L -- 19.0* 17.9* -- 15.4* 16.0* HEMOGLOBIN g/dL -- 5.6* 11.0* 11.2* 11.2* 10.8* HEMATOCRIT % -- 18.7* 35.3 -- 35.8 34.7* PORTABLE HEMATOCRIT % 17* -- -- -- -- -- PLATELETS X10E9/L -- 179 341 366 358 391 MCV fL -- 78* 75* -- 74* 72* MCH pg -- 23.2* 23.2* -- 23.0* 22.4* MCHC g/dL -- 29.7* 31.1* -- 31.3* 31.0* RDW % -- 20.1* 19.8* -- 20.6* 19.7* Microbiology Results Procedure Component Value Units Date/Time Urine Culture Urine, Indwelling Catheter [[id number]] Collected: 03/07/25 1122 Specimen: Urine, Indwelling Catheter Updated: 03/07/25 1144 Glucose Results from last 7 days Lab Units 03/08/25 0043 03/08/25 0032 03/07/25 0626 03/06/25 0536 03/05/25 0403 03/04/25 0716 03/03/25 0436 03/02/25 0644 03/01/25 0609 POC GLUCOSE mg/dL 245* -- -- -- -- -- -- -- -- GLUCOSE mg/dL -- 258* 151* 105* 123* 98 82 96 92 I/O last 3 completed shifts: In: 4095.8 [I.V.:3832.2; IV Piggyback:263.6] Out: 635 [Urine:635] amLODIPine, 10 mg, oral, Daily cefTRIAXone (ROCEPHIN) IV, 2,000 mg, intravenous, Q24H fentaNYL, , , folic acid, 1 mg, oral, Daily metroNIDAZOLE, 500 mg, intravenous, Q12H pantoprazole, 40 mg, intravenous, Q12H D5 % and 0.45 % sodium chloride 1,000 mL with sodium bicarbonate 8.4 % (1 mEq/mL) 75 mEq infusion, 100 mL/hr, Last Rate: 100 mL/hr (03/07/25 1744) dextrose 5 % in water, 100 mL/hr D5 % and 0.45 % sodium chloride, 50 mL/hr, Last Rate: 50 mL/hr (03/07/25 1821) EPINEPHrine, 0.02-0.2 mcg/kg/min, Last Rate: 0.24 mcg/kg/min (03/08/25 0135) fentaNYL, 25-200 mcg/hr, Last Rate: 50 mcg/hr (03/08/25 0116) midazolam, 0.5-7 mg/hr, Last Rate: 2 mg/hr (03/08/25 0048) sodium chloride 0.9 %, 20 mL/hr, Last Rate: Stopped (03/07/25 170) sodium chloride 0.9 %, 20 mL/hr sodium chloride 0.9 %, 20 mL/hr sodium chloride 0.9 %, 20 mL/hr vasopressin (PITRESSIN) 40 Units in sodium chloride 0.9 % 40 mL (1 Units/mL) infusion, 0.04 Units/min, Last Rate: 0.04 Units/min (03/08/25 0132) Microbiology Results Procedure Component Value Units Date/Time Urine Culture Urine, Indwelling Catheter [[id number]] Collected: 03/07/25 112 Specimen: Urine, Indwelling Catheter Updated: 03/07/25 1144 Lines/Drains CVC Triple Lumen 03/07/25 Right Internal Jugular (Active) Precautions Standard precautions;Hand hygiene;Gloves 03/08/25 0000 Lumen 1 Proximal 03/08/25 0000 Lumen 1 Status Blood return noted;Flushed;Infusing 03/08/25 0000 Lumen 2 Medial 03/08/25 0000 Lumen 2 Status Blood return noted;Flushed;Infusing 03/08/25 0000 Lumen 3 Distal 03/08/25 0000 Lumen 3 Status Blood return noted;Flushed 03/08/25 Site Assessment Clean;Dry;Intact 03/08/25 Dressing Type Occlusive;Transparent with CHG gel 03/08/25 Dressing Status Dry;Clean;Intact 03/08/25 Dressing Intervention Initial dressing 03/08/25 0000 Central Line Dressing Change Due (Non-Gauze) 03/15/25 03/08/25 0000 Peripheral IV 03/05/25 Anterior;Left Forearm (Active) Line Status Infusing;Flushed 03/08/25 Site Assessment Clean;Dry;Intact 03/08/25 0000 Dressing Type Occlusive;Transparent 03/08/25 Dressing Status Clean;Dry;Intact 03/08/25 Dressing Intervention Initial dressing 03/08/25 0000 Dressing Change Due (Non-Gauze) 03/12/25 03/05/25 0649 Peripheral IV 03/06/25 Anterior;Right Forearm (Active) Line Status Flushed;Infusing 03/08/25 0000 Site Assessment Clean;Dry;Intact 09/06/25 0000 Dressing Type Transparent;Occlusive 03/08/25 Dressing Status Clean;Dry;Intact 03/08/25 Dressing Intervention Initial dressing 03/08/25 Dressing Change Due (Non-Gauze) 03/13/25 03/06/25 210 Negative Pressure Wound Therapy 03/07/25 Surgical Quadrant;Mid Abdomen (Active) Assessed: Compressed 03/08/25 0000 Cycle Continuous 03/08/25 Target Pressure (mmHg) 125 03/08/25 Dressing Status Clean;Dry;Intact 03/08/25 Dressing Changed New 03/08/25 Output (mL) 50 mL 03/08/25 0116 Urinary Catheter 03/06/25 Single lumen (Active) Catheter Status Patent 03/08/25 Site Assessment Clean;Skin intact 03/08/25 Collection Container Standard drainage bag/container 03/08/25 Securement Method Right 03/08/25 Tamper Evident Seal Intact Yes 03/08/25 Indication for Continuation Uro/jewel bearing turner surgical considerations 03/08/25 Urine Color Yellow/straw 03/08/25 Urine Appearance Clear 03/08/25 0000 Output (mL) 120 mL 03/08/25 0116 ETT 03/07/25 Cuffed;Inflated Oral (Active) Secured at (cm) 22 cm 03/08/25 0200 Measured from Teeth 03/08/25 0200 Secured Location Center 03/08/25 0200 Secured by Commercial tube du 03/08/25 0200 Cuff Pressure (cm H2O) 30 cm H2O 03/08/25 0200 Arterial Line 03/07/25 Left Radial (Active) Line Status Infusing;Pulsatile blood flow;Blood return noted 03/08/25 Line Interventions Leveled 03/08/25 Waveform Appropriate 03/08/25 Site Assessment Clean;Dry;Intact 03/08/25 Dressing Type Occlusive;Transparent 03/08/25 Dressing Status Clean;Dry;Intact 03/08/25 Dressing Intervention Initial dressing 03/08/25 Color/Movement/Sensation Capillary refill less than 3 sec 03/08/25 Patient Tolerance of Line Care Tolerated well 03/08/25 Line Necessity Invasive hemodynamic monitoring 03/08/25 Line Necessity Reviewed With cc 03/08/25 Dressing Change Due (Non-Gauze) 9/13/25 09/06/25 0000 ACTIVE PROBLEM LIST: S/p cardiac arrest Malignant bowel obstruction s/p total colectomy and bilateral salpingo-oophorectomy Pulmonary embolism Multiple DVT Blood loss anemia Hypocalcemia Hyperphosphatemia Metabolic acidosis Shock ASSESSMENT/PLAN: Caren Suarez is a 69 y.o. female who is s/p total colectomy and bilateral salpingo-oophorectomy for malignant bowel obstruction for known mucinous adenocarcinoma. 1. Neuro Hospital Meds: Sedation: versed, fentanyl RASS Goal: -1 to 0 Analgesia: Other: n/a Home Meds: N/a 2. Pulmonary Breathing Support: ET tube, PRVC-AC Settings: FiO2 100%, respiratory rate 18, Peep 16 SpO2: 97% Continuous pulse oximetry Hospital Meds: None Home Meds: None 3. Cardiovascular Hemodynamics: Tachycardic, sinus rhythm Hypotensive Pressors: Epinephrine, vasopressin Goal MAP >65 Continuous cardiac monitoring Hospital Meds: Heparin SQH Home Meds: Unknown PMH: Hypertension, previous DVTs PSH: None known Code Status: Full 4. GI Status post total colectomy, left in discontinuity, ABThera in place Diet: NPO Bowel Function: Await return of bowel function Hospital Meds: N/a Home Meds: None known 5. Renal/Genitourinary Lab Results Component Value Date SODIUM 137 03/08/2025 SODIUM 138 03/08/2025 SODIUM 135 03/07/2025 CL 105 03/08/2025 CL 103 03/07/2025 CL 104 03/06/2025 K 3.4 (L) 03/08/2025 K 3.5 03/08/2025 K 3.7 03/07/2025 CO2 19 (L) 03/08/2025 CO2 22 03/07/2025 CO2 18 (L) 03/06/2025 Lab Results Component Value Date BUN 29 (H) 03/08/2025 BUN 35 (H) 03/07/2025 BUN 33 (H) 03/06/2025 CREATININE 1.18 (H) 03/08/2025 CREATININE 1.16 (H) 03/07/2025 CREATININE 1.22 (H) 03/06/2025 CALCIUM 8.3 (L) 03/08/2025 CALCIUM 8.3 (L) 03/07/2025 CALCIUM 9.2 03/06/2025 MG 2.1 03/08/2025 MG 2.6 03/07/2025 MG 2.6 03/06/2025 PHOSPHORUS 5.4 (H) 03/08/2025 Will replace electrolytes PRN per ICU protocol Fluid Balance: IV Fluids: 5.8L UOP/24 H: 1.1 L Net Fluid/24H: +7.5L Strict monitoring of Ins and Outs Hospital Meds: none Home Meds: None known 6. Heme Labs: Lab Results Component Value Date HGB 5.6 (LL) 03/08/2025 HGB 11.0 (L) 03/07/2025 HGB 11.2 (L) 03/06/2025 PLT 179 03/08/2025 PLT 341 03/07/2025 PLT 366 03/06/2025 Lab Results Component Value Date INR 2.3 (H) 03/08/2025 INR 1.9 (H) 03/07/2025 INR 4.2 (HH) 03/06/2025 Type and Screen: A neg Blood Products Administered: 1U PRBC Will continue to monitor Hgb and transfuse PRN 7. ID Tmax/24H: 98F Labs: Lab Results Component Value Date WBC 19.0 (H) 03/08/2025 WBC 17.9 (H) 03/07/2025 WBC 15.4 (H) 03/06/2025 Hospital Meds: Antibiotics: rocephin and flagyl - intra-abdominal surgery 8. Endocrine Lab Results Component Value Date GLU 245 (H) 03/08/2025 GLU 258 (H) 03/08/2025 GLU 151 (H) 03/07/2025 Blood Glucose: 258 < 151 < 105 Goal Blood Glucose <180 mg/dL Hospital Meds: ISS PMH: none known 9. Musculoskeletal PMH: n/a PSH: n/a PT/OT when able 10. Prophylaxis Respiratory: none GI: protonix DVT: SCD Cuffs, SQH 11. Lines PIV x2 L radial A line Camara Right IJ CVC Dispo: Critical, remain in SICU Abby Palmer MD SICU Resident, PGY-1 Cosigned by Paulette Pandey MD at 03/08/2025 8:32 AM EDT Associated attestation - Paulette Pandey MD - 03/08/2025 8:32 AM EDT Name: Caren Suarez Date: 03/08/2025 Length of Stay: 11 day(s) ACTIVE PROBLEM LIST: S/p cardiac arrest Malignant bowel obstruction s/p total colectomy and bilateral salpingo-oophorectomy Pulmonary embolism Multiple DVT Blood loss anemia Hypocalcemia Hyperphosphatemia Metabolic acidosis Shock possibly cardiogenic Acute blood loss anemia vs hemorrhagic shock ASSESSMENT/PLAN: 1. Neuro: Neurochecks Goal RASS of -1 Versed and Fentanyl Daily Sedation holiday CT head when stable 2. Cardio: Continues hemodynamic monitoring Maintain map above 65 On Epi and Vaso F/U Cards, PERT and CT surgery recs (No intervention planned for a possible massive PE due to severe hemodynamic instability) ECHO 3. Resp: Maintain O2 sat > 92% Monitor for signs and respiratory distress Monitor Chest tube output Scheduled Duonebs May consider Vilitri Ventilator Settings Vent Mode: PRVC-AC FiO2 (%): 60 % Resp Rate (Set): 22 Avea Vt (Set, L): 0.4 Liter (per IBW and trauma) PEEP/CPAP (cm H2O): 16 cm H20 Insp Time (sec): 0.92 sec Trigger Sensitivity Flow (L/min): 1 L/min Trigger Sensitivity Pressure (cm H2O): 3 cm H2O Humidification: Heat and moisture exchanger 4. GI: NPO NG to LIWS Abthera Wound vac in place 5. Heme: Monitor H&H Transfuse 3 units PRBC Check coags 6. Renal: Monitor urine output Monitor renal function ICU electrolyte replacement protocol 7. ID: Monitor for signs and symptoms of sepsis Rocephin and flagyl 8. Endo: Monitor blood sugar Use insulin sliding scale as needed 9. MS: Pressure ulcer prophylaxis 10: Prophylaxis: DVT mechanical prophylaxis DVT chemical prophylaxis on hold Dispo: Unstable This patient remains critically ill and requires constant monitoring and titration of care by a Critical Care Drawer [place]. Failure to do so may result in further organ system failure, imminent deterioration, or . Critical care time spent directly with the patient and family: 200 min Critical care was time spent personally by me on the following activities: Development of treatmentplan with the patient or surrogate, discussions with consultants, discussions with the primary provider, ordering and performing treatments and interventions, ordering and review of laboratory studies, ordering and review of radiographic studies, pulse oximetry, re-evaluation of patient's condition, review of old charts, vascular access procedures, evaluation of patient's response to treatment, examination of patient, interpretation of cardiac output measurements and obtaining history from patient or surrogate Electronically signed by Paulette Pandey MD [facility] Trauma, Acute Care Surgery and Surgical Critical Care * Lesly Croft MD - 03/08/2025 2:22 AM EDT Images from the original note were not included. VASCULAR SURGERY History and Physical / Consultation Chief Concern / Reason for Consultation Bilateral pulmonary emboli, bilateral lower extremity DVT Assessment/Plan Caren Mason Suarez is a 69 y.o. White or female with PMH of HTN and DVT who presented as a transfer from OSH due to large pelvic mass with obstruction at the sigmoid colon, concerning for acutemalignant obstruction and peritoneal carcinomatosis, found to have biopsy-proven mucinous adenocarcinoma, consistent with colorectal origin. Patient also found to have bilateral DVT and right-sided pulmonary emboli on CTA chest, initiated on heparin gtt at this time. She was taken emergently to [facility] this evening, 03/07/25 for planned exploratory laparotomy, resection of pelvic mass, and colostomycreation. Intra-operatively, patient was found to be ventilating poorly, with significant V/Q mismatch and increasing pressor requirements. Vascular Surgery emergently consulted intra- operatively forthese findings, in setting of known history of bilateral PEs. No acute surgical intervention from Vascular Surgery standpoint Discussed with on-call attending, Dr. Henson while in OR - no possible Vascular Surgery options, but recommended calling PERT alert at that time and contacting Cardiothoracic Surgery Also recommended possibility of systemic tPA, but extremely high risk given patient's open abdomen Continue heparin 5,000 units; when patient is clinically stable, consider initiation of heparin gtt. Recommend CTA Chest for definitive diagnosis of PE; last CTA chest 02/25/25 ECHO planned for tomorrow morning History of Present Illness Caren Suarez is a 69 y.o. White or female with PMH of HTN and DVT who presented as a transfer from OSH due to large pelvic mass with obstruction at the sigmoid colon, concerning for acutemalignant obstruction and peritoneal carcinomatosis, found to have biopsy-proven mucinous adenocarcinoma, consistent with colorectal origin. Patient also found to have bilateral DVT and right-sided pulmonary emboli on CTA chest, initiated on heparin gtt at this time. She was taken emergently to the OR this evening, 03/07/25 for planned exploratory laparotomy, resection of pelvic mass, and colostomy creation. Intra-operatively, patient was found to be ventilating poorly, with significant V/Q mismatch and increasing pressor requirements. Vascular Surgery emergentlyconsulted intra- operatively for these findings, in setting of known history of bilateral PEs. PERT alert also called at this time. Intra-operatively, patient continued to ventilate poorly and had increasing pressor requirements. She underwent exploratory laparotomy with total colectomy and bilateral salpingo-oophorectomy, with Abthera wound vac placement. Immediately following wound vac placement, patient coded on table. CPR was immediately initiated, with achievement of ROSC after 2 minutes of CPR. Cardiothoracic surgery was also contacted intra-operatively at this time, to assess possibility of ECMO, which CT Surgery believed she would not be an appropriate candidate. Patient stabilized, central line placed by anesthesia. Patient transported, intubated and sedated, to surgical ICU for further management and resuscitation. Past Medical History Past Medical History: Diagnosis Date Deep vein thrombosis ([facility]) Past Surgical History No past surgical history on file. Allergies Allergies Allergen Reactions Penicillin Social History Social History Socioeconomic History Marital status: Single Spouse name: Not on file Number of children: Not on file Years of education: Not on file Highest education level: Not on file Occupational History Not on file Tobacco Use Smoking status: Former Types: Cigarettes Smokeless tobacco: Never Substance and Sexual Activity Alcohol use: Never Drug use: Never Sexual activity: Not on file Other Topics Concern Not on file Social History Narrative Not on file Social Drivers of Health Financial Resource Strain: Not on file Food Insecurity: No Food Insecurity (02/25/2025) Hunger Screening Food Insecurity - Worry: Never True Food Insecurity - Inability: Never True Transportation Needs: No Transportation Needs (02/25/2025) PRAPARE - Transportation Lack of Transportation (Medical): No Lack of Transportation (Non-Medical): No Physical Activity: Not on file Stress: Not on file Social Connections: Not on file Interpersonal Safety: Not At Risk (02/25/2025) Humiliation, Afraid, Rape, and Kick questionnaire Fear of Current or Ex-Partner: No Emotionally Abused: No Physically Abused: No Sexually Abused: No Housing Instability: Low Risk (02/25/2025) Housing Instability Housing Instability: No Family History Family History Problem Relation Age of Onset Breast cancer Neg Hx Primary Care Physician Riya Diego MD Review Of Systems Review of Systems Unable to obtain Objective Vital signs: Vitals: 03/08/25 0100 03/08/25 0105 03/08/25 0110 03/08/25 0147 BP: Pulse: 85 92 94 110 Resp: Temp: (!) 33.5 ??C (92.3 ??F) (!) 33.5 ??C (92.3 ??F) (!) 33.5 ??C (92.3 ??F) (!) 34 ??C (93.2 ??F) TempSrc: SpO2: 100% (!) 87% 100% (!) 88% Weight: Height: Temperature Range Last 24 Hours : Temp: (!) 34 ??C (93.2 ??F) Temp Av.3 ??C (95.5 ??F) Min: 33.3 ??C (91.9 ??F) Max: 36.7 ??C (98 ??F) Admit Weight: 74.8 kg (164 lb 14.5 oz) Body mass index is 32.01 kg/m??. Last Weights: Wt Readings from Last 3 Encounters: 03/07/25 79.4 kg (175 lb 0.7 oz) 02/24/25 74.4 kg (164 lb) I/O's: Intake/Output Summary (Last 24 hours) at 03/08/2025 0223 Last data filed at 03/08/2025 0215 Gross per 24 hour Intake 8544.82 ml Output 1570 ml Net 6974.82 ml Physical Exam Physical Exam General: Intubated, sedated; hypothermic HENT: Head atraumatic, normocephalic, external ears and nose are normal Pulmonary: Intubated, on mechanical ventilation. Left sided chest tube Cardiovascular: Tachycardic Abdomen: Abthera wound vac in place Neuro: intubated, sedated, on versed drip Skin: dry, without jaundice. Labs Results from last 7 days Lab Units 03/08/25 0043 03/08/25 0032 03/07/25 0626 03/06/25 1401 03/06/25 0536 03/05/25 04003/04/25 0716 WBC x10E9/L -- 19.0* 17.9* -- 15.4* 16.0* 16.5* HEMOGLOBIN g/dL -- 5.6* 11.0* 11.2* 11.2* 10.8* 10.7* HEMATOCRIT % -- 18.7* 35.3 -- 35.8 34.7* 34.1* PORTABLE HEMATOCRIT % 17* -- -- -- -- -- -- PLATELETS X10E9/L -- 179 341 366 358 391 355 Results from last 7 days Lab Units 03/08/25 0043 03/08/25 0032 03/07/25 0626 03/06/25 0536 03/05/2540203/04/25 21103/04/25 0716 SODIUM mmol/L -- 138 135 136 138 -- 138 PORTABLE SODIUM mmol/L 137 -- -- -- -- -- -- POTASSIUM mmol/L -- 3.5 3.7 4.2 4.0 < > 3.6 POC POTASSIUM mmol/L 3.4* -- -- -- -- -- -- CO2 mmol/L -- 19* 22 18* 17* -- 18* BUN mg/dL -- 29* 35* 33* 23 -- 18 CREATININE mg/dL -- 1.18* 1.16* 1.22* 0.95 -- 0.89 POC GLUCOSE mg/dL 245* -- -- -- -- -- -- GLUCOSE mg/dL -- 258* 151* 105* 123* -- 98 < > = values in this interval not displayed. Results from last 7 days Lab Units 03/08/25 00303/07/25 19403/06/25 2205 03/06/25 1401 INR 2.3* 1.9* -- 4.2* PROTIME sec 25.8* 21.2* -- 47.8* APTT sec -- 32 >150* 33 Cultures Microbiology Results (last 21 days) Procedure Component Value - Date/Time Urine Culture Urine, Indwelling Catheter [[id number]] Collected: 03/07/25 1122 Lab Status: In process Specimen: Urine, Indwelling Catheter Updated: 03/07/25 1144 Body fluid culture includes gram stain [[id number]] Collected: 02/28/25 1325 Lab Status: Final result Specimen: Sterile Body Fluid from Abdomen Updated: 03/05/25 0834 CULTURE RESULTS NO GROWTH 5 DAYS GRAM STAIN White Blood Cells Present No organisms seen On Concentrated Smear Urine Culture Urine, Clean Catch Midstream [[id number]] Collected: 02/25/252025 Lab Status: Final result Specimen: Urine, Clean Catch Midstream Updated: 02/26/25 1653 CULTURE RESULTS 10-50,000 ORGANISMS/mL NORMAL UROGENITAL YOLY Recent Studies X-ray chest 1 view Result Date: 03/08/2025 History: Intubation Technique: A portable single frontal view of the chest was obtained. Comparison: 03/06/2025 Findings: There is an endotracheal tube in place with its tip extending into the right main bronchus. This should be retracted approximately 5.5 cm. There is atelectasis of the left lung isnew since the previous examination. There is shift of the mediastinal structures toward the left. There is an enteric tube in place with its tip in the stomach but its side port at the level the gastroesophageal junction. The right lung is clear for an active process. Impression: * Endotracheal tube extends into the right main bronchus with resultant atelectasis of the left lung and shift of the m ediastinal structures toward the left * Enteric tube in place with its tip in the stomach but its sidehole at the level the gastroesophageal junction. THIS REPORT CONTAINS A SIGNIFICANT RESULT AND/ORRECOMMENDATION, WHICH REQUIRES THE ATTENTION OF THE LICENSED CAREGIVER RESPONSIBLE FOR THIS PATIENT. THEREFORE, I SPECIFICALLY DESIGNATED THIS REPORT TO BE TELEPHONED BY THE RADIOLOGY DEPARTMENT. FINDINGS WERE INSTRUCTED TO BE CALLED TO THE CLINICAL SERVICE ON 03/08/2025 AT 1:34 AM. * Finalized by Chaitanya Gandara MD on 03/08/2025 1:34 AM X-ray chest 1 view Result Date: 03/06/2025 History: Congestive heart failure Comparison is made with 02/18/2025. FINDINGS: Single frontal chestradiograph demonstrates that the heart, mediastinum, and steven are grossly on changed despite low lung volumes. Strandy opacities at the lung bases may be atelectasis. A small nodular opacity is superimposed over the left anterior second and in the left posterior fifth rib and was not evident on theprior study. This is likely due to one of the nodules mentioned on the 02/25/2025 CT report. There is blunting of the lateral costophrenic sulci and small effusions cannot be excluded IMPRESSION: No obvious new acute chest disease on radiograph obtained the low lung volumes. Please see above Workstat ion:[id number] Finalized by Abhi Coelho MD on 03/06/2025 1:[address] abdomen and pelvis without contrast Result Date: 03/06/2025 CT ABDOMEN AND PELVIS WO CONT CLINICAL INDICATION: Hydronephrosis; OBS uropathy, Abd distension . COMPARISON STUDY: 02/24/2025. TECHNIQUE: CT scan of the abdomen and pelvis performed without IV or PO contrast. Coronal and sagittal reformats generated and reviewed. FINDINGS: Lack of intravenous contrast limits evaluation of the viscera and vessels. LOWER THORAX: Indeterminate bilateral lung base nod ules. HEPATOBILIARY: No focal aggressive appearing hepatic lesions. No biliary ductal dilatation. Cholelithiasis. SPLEEN: Atrophic. PANCREAS: Grossly normal for technique. ADRENALS: No exophytic adrenal nodules. KIDNEYS/URETERS: Redemonstrated 2.2 cm right renal mass lesion. No obstructive renal calculus. No collecting system dilatation. Bladder: Underdistended, limiting evaluation. PELVIC ORGANS: Similar appearance of a 20 cm cystic pelvic lesion, reportedly rectal origin adenocarcinoma. GI TRACT: Colonic dilatation with transition at the sigmoid junction. LYMPH NODES: 1.1 cm mesorectal nodeversus pelvic wall deposit. VESSELS: No abdominal aortic aneurysm. BONES AND SOFT TISSUES: Few sclerotic pelvic lesions. PERITONEUM/RETROPERITONEUM: Small volume free fluid. Multiple pelvic wall deposits including (series 2) -Image 56, 2.7 x 2.0 cm, left pelvic sidewall, -Image 48, 1.3 cm, left anterior peritoneum -Image 28, 1.4 x 1.0 cm, left anterior peritoneum IMPRESSION: * Colonic dilatation with transition at the sigmoid junction. Concern for obstruction from the known large rectal mass vs multicentric colorectal carcinoma. Postprocedural ileus or colonic pseudoobstruction could appear similarly in the appropriate clinical setting. * Similar appearance of a 20 cm cystic pelvic lesion, recently characterized as rectal adenocarcinoma. * Peritoneal carcinomatosis. * Indeterminate bilateral lung base pulmonary nodules, presumed metastatic. * Few sclerotic pelvic lesions may reflect additional osseous metastases. * Mild right hydroureteronephrosis, likely secondary to pelvic mass effect on the ureter. * Redemonstrated 2.2 cm right interpolar renal mass lesion concerning for RCC. All CT scans at this facility use dose modulation, iterative reconstruction, and/or weight based dosing when appropriate to reduce radiation dose to as low as reasonably achievable. Clinically significant results were instructed to call for clinical service on 03/06/2025 at 12:04 PM. This will be documented in [facility] results tracking once complete. Finalized by Amari Mcgregor on 03/06/2025 12:04 PM Current Medications amLODIPine, 10 mg, oral, Daily cefTRIAXone (ROCEPHIN) IV, 2,000 mg, intravenous, Q24H fentaNYL, , , folic acid, 1 mg, oral, Daily metroNIDAZOLE, 500 mg, intravenous, Q12H pantoprazole, 40 mg, intravenous, Q12H Current Infusions D5 % and 0.45 % sodium chloride 1,000 mL with sodium bicarbonate 8.4 % (1 mEq/mL) 75 mEq infusion, 100 mL/hr, Last Rate: 100 mL/hr (03/07/25 4984) dextrose 5 % in water, 100 mL/hr D5 % and 0.45 % sodium chloride, 50 mL/hr, Last Rate: 50 mL/hr (03/07/25 1821) EPINEPHrine, 0.02-0.2 mcg/kg/min, Last Rate: 0.24 mcg/kg/min (03/08/25 0135) fentaNYL, 25-200 mcg/hr, Last Rate: 50 mcg/hr (03/08/25 0116) midazolam, 0.5-7 mg/hr, Last Rate: 2 mg/hr (03/08/25 0048) sodium chloride 0.9 %, 20 mL/hr, Last Rate: Stopped (03/07/25 1704) sodium chloride 0.9 %, 20 mL/hr sodium chloride 0.9 %, 20 mL/hr sodium chloride 0.9 %, 20 mL/hr vasopressin (PITRESSIN) 40 Units in sodium chloride 0.9 % 40 mL (1 Units/mL) infusion, 0.04 Units/min, Last Rate: 0.04 Units/min (03/08/25 0132) Home Medications Current Outpatient Medications Medication Instructions apixaban (ELIQUIS) 5 mg tablet Take 2 tablets (10 mg total) by mouth 2 (two) times a day for 7 days, THEN 1 tablet (5 mg total) 2 (two) times a day for 30 days. Lesly Croft MD, MPH General Surgery Resident, PGY-2 Cosigned by Marcelle Henson MD at 03/13/2025 1:34 PM EDT Associated attestation - Marcelle Henson MD - 03/13/2025 1:34 PM EDT I saw and evaluated the patient on 03/08/25, participating in the fuentes portions of the service. I reviewed the resident's note. I agree with the resident's findings and plan. * London Merino MD - 03/07/2025 12:55 PM EDTAssociated Order(s): IP CONSULT TO COLORECTAL SURGERY Images from the original note were not included. Colorectal Surgery CONSULTATION NOTE Chief Complaint: Abdominal pain and bowel obstruction History of Present Illness: Caren Suarez is a 69 y.o. female who was admitted to the hospital after a CT abdomen and pelvis at an outside hospital on demonstrated large partially solid cystic lesions. She was also found to have multiple DVTs and PEs. She is transferred to [facility] for additional treatment. The colorectal surgery service was consulted on 03/07 due to bowel obstruction. CT abdomen and pelvis without contrast obtained on 03/06 demonstrated colonic dilatation with transition at the sigmoid junction. There was concern for acute malignant obstruction as a CT previously obtained on 02/24 showed nondistended small bowel without evidence of obstruction. IR did a paracentesis for ascites fluid on 02/28 and cytology demonstrated atypical cells noted in a background of acute inflammation; Infectious Disease of the results of the fluid are consistent with bacterial peritonitis. Biopsies of intra-abdominal masses demonstrated adenocarcinoma consistent with colorectal origin. GI previously attempted to do a colonoscopy but the patient was not able to tolerate the prep due to nausea from the prep. She endorses abdominal pain that has been ongoing for several weeks. She states that her abdomen has become increasingly distended more recently over the past few days. Per nurse, her abdomen has continue to become more distended in the past 2 days. The patient endorses nausea and denies vomiting. She denies passing gas or having any bowel movements. She states that prior to hospital admission she was having regular normal bowel movements without any bloody or tarry stools. She denies any weight loss. She denies a family history of colon cancer. She has never had a colonoscopy before. She has been on heparin for known DVT and PE without right heart strain. Review of Systems Constitutional: Positive for activity change. Negative for unexpected weight change. Cardiovascular: Positive for leg swelling. Gastrointestinal: Positive for nausea, abdominal pain and abdominal distention. Negative for blood in stool and black tarry stool. Past Medical History: Diagnosis Date Deep vein thrombosis ([facility]) No past surgical history on file. Allergies Allergen Reactions Penicillin Current Facility-Administered Medications: acetaminophen (TYLENOL) tablet 650 mg, 650 mg, oral, Q6H PRN, Neelima Ta APRN-ASSISTANT DIRECTOR OF [employer], 325 mg at 03/01/25 08 amLODIPine (NORVASC) tablet 10 mg, 10 mg, oral, Daily, Eleni Harding APRN- ASSISTANT [employer], 10 mg at D5 % and 0.45 % sodium chloride 1,000 mL with sodium bicarbonate 8.4 % (1 mEq/mL) 75 mEq infusion, 100 mL/hr, intravenous, Continuous, Brenda Hayes MD, Last Rate: 100 mL/hr at 03/07/25 1041, 100 mL/hr at 03/07/25 1041 dextrose (GLUTOSE) 40 % gel 15 g, 15 g, oral, PRN, Neelima Ta APRN-DUYEN dextrose 5 % (D5W) infusion, 100 mL/hr, intravenous, Continuous PRN, Neelima Ta APRN-DUYEN dextrose 50 % in water (D50W) 50% solution 25 mL, 25 mL, intravenous, PRN, Neelima Ta APRN-DUYEN folic acid (FOLVITE) tablet 1 mg, 1 mg, oral, Daily, Tanya Kraus, SADIE-DUYEN, 1 mg at 03/07/25 1029 glucagon HCL injection 1 mg, 1 mg, intramuscular, PRN, Neelima Ta APRN-DUYEN heparin (porcine) injection 5,000 Units, 5,000 Units, intravenous, PRN, Eleni Harding APRN-DUYEN hydrALAZINE (APRESOLINE) injection 10 mg, 10 mg, intravenous, Q6H PRN, Eleni Harding APRN-DUYEN, 10 mg at 03/04/25 1335 HYDROmorphone (DILAUDID) injection 0.5 mg, 0.5 mg, intravenous, Q2H PRN, OK Dang HYDROmorphone (PF) (DILAUDID) injection 1 mg, 1 mg, intravenous, Q2H PRN, OK Dang magnesium sulfate IVPB 2000 mg/50 mL in iso-osmotic water (40 mg/mL premix), 2,000 mg, intravenous,PRN, Neelima Ta APRN-DUYEN magnesium sulfate IVPB 4000 mg/100 mL in iso-osmotic water (40 mg/mL premix), 4,000 mg, intravenous, PRN, Neelima Ta APRN-DUYEN ondansetron (PF) (ZOFRAN) injection 4 mg, 4 mg, intravenous, Q4H PRN, Neelima Ta APRN-DUYEN, 4 mg at 03/04/25 1700 oxyCODONE (ROXICODONE) immediate release tablet 2.5 mg, 2.5 mg, oral, Q4H PRN AND oxyCODONE (ROXICODONE) immediate release tablet 5 mg, 5 mg, oral, Q4H PRN, Kaleigh Washburn MD pantoprazole (PROTONIX) EC tablet 40 mg, 40 mg, oral, QAM AC, Neelima Ta APRN-DUYEN, 40 mg at 03/06/25 0533 potassium chloride (K-TAB,KLOR-CON) CR tablet 30-50 mEq, 30-50 mEq, oral, PRN, 30 mEq at 03/04/25 1534 OR potassium chloride (KAYCIEL) 20 mEq/15 mL solution 30-50 mEq, 30-50 mEq, oral, PRN ORpotassium chloride IVPB 10 mEq/100 mL in water (0.1 mEq/mL premix), 10 mEq, intravenous, PRN, Neelima Ta APRN-DUYEN sennosides-docusate sodium (SENOKOT-S) 8.6-50 mg 1 tablet, 1 tablet, oral, Q12H PRN, Neelima Ta APRN-DUYEN sodium chloride 0.9 % flush 10 mL, 10 mL, intravenous, PRN, Deena Branch MD, 10 mL at 02/25/25 1857 sodium chloride 0.9 % flush 3 mL, 3 mL, intravenous, PRN, Neelima Ta APRN-DUYEN sodium chloride 0.9 % flush 3 mL, 3 mL, intravenous, Q12H JOSE, Neelima Ta APRN-DUYEN, 3 mL at 03/07/25 1030 sodium chloride 0.9 % flush bag, 25 mL, intravenous, PRN, Neelima Ta APRN-DUYEN sodium chloride 0.9 % infusion, 20 mL/hr, intravenous, Continuous PRN, Neelima Ta APRN-DUYEN [COMPLETED] sodium,potassium,mag sulfates (SUPREP) 17.5-3.13-1.6 gram solution 177 mL, 177 mL, oral, Once, 177 mL at 03/03/25 1250 AND sodium,potassium,mag sulfates (SUPREP) 17.5-3.13-1.6 gram solution 177 mL, 177 mL, oral, Once, Wasef Soledad Segura MD Social History Socioeconomic History Marital status: Single Spouse name: Not on file Number of children: Not on file Years of education: Not on file Highest education level: Not on file Occupational History Not on file Tobacco Use Smoking status: Former Types: Cigarettes Smokeless tobacco: Never Substance and Sexual Activity Alcohol use: Never Drug use: Never Sexual activity: Not on file Other Topics Concern Not on file Social History Narrative Not on file Social Drivers of Health Financial Resource Strain: Not on file Food Insecurity: No Food Insecurity (02/25/2025) Hunger Screening Food Insecurity - Worry: Never True Food Insecurity - Inability: Never True Transportation Needs: No Transportation Needs (02/25/2025) PRAPARE - Transportation Lack of Transportation (Medical): No Lack of Transportation (Non-Medical): No Physical Activity: Not on file Stress: Not on file Social Connections: Not on file Interpersonal Safety: Not At Risk (02/25/2025) Humiliation, Afraid, Rape, and Kick questionnaire Fear of Current or Ex-Partner: No Emotionally Abused: No Physically Abused: No Sexually Abused: No Housing Instability: Low Risk (02/25/2025) Housing Instability Housing Instability: No Family History Problem Relation Age of Onset Breast cancer Neg Hx Physical Exam HENT: Head: Normocephalic. Cardiovascular: Rate and Rhythm: Normal rate. Pulses: Normal pulses. Pulmonary: Effort: Pulmonary effort is normal. Abdominal: General: There is distension. Tenderness: There is abdominal tenderness. There is no guarding or rebound. Genitourinary: Rectum: Normal. Skin: General: Skin is warm and dry. Neurological: Mental Status: She is alert. Digital rectal exam: A digital rectal exam performed by Kristan EUCEDA at bedside was negativefor impaction and hemorrhoids. A small fissure was noticed. The stool was not bloody or tarry. The patient was put in the left lateral decubitus position. She tolerated the CURTIS well. The nurse was present the entire time. Vital Signs: Blood pressure 144/64, pulse 86, temperature 36.5 ??C (97.7 ??F), temperature source Oral, resp. rate 16, height 157.5 cm (5' 2.01 ), weight 79.4 kg (175 lb 0.7 oz), SpO2 90%. Respiratory Source: O2 Device: None (Room air) Admission Weight: Weight: 74.8 kg (164 lb 14.5 oz) Labs: Lab Results Component Value Date WBC 17.9 (H) 03/07/2025 HGB 11.0 (L) 03/07/2025 HCT 35.3 03/07/2025 MCV 75 (L) 03/07/2025 PLT 341 03/07/2025 Lab Results Component Value Date GLU 151 (H) 03/07/2025 CALCIUM 8.3 (L) 03/07/2025 K 3.7 03/07/2025 CO2 22 03/07/2025 CL 103 03/07/2025 BUN 35 (H) 03/07/2025 CREATININE 1.16 (H) 03/07/2025 No results found for: AMYLASE No results found for: LIPASE Lab Results Component Value Date ALT 15 02/24/2025 AST 21 02/24/2025 ALKPHOS 105 02/24/2025 Lab Results Component Value Date INR 4.2 (HH) 03/06/2025 INR 1.2 02/24/2025 PROTIME 47.8 (H) 03/06/2025 PROTIME 13.4 (H) 02/24/2025 Imaging: X-ray chest 1 view History: Congestive heart failure Comparison is made with 02/18/2025. FINDINGS: Single frontal chest radiograph demonstrates that the heart, mediastinum, and steven are grossly on changed despite low lung volumes. Strandy opacities at the lung bases may be atelectasis. A small nodular opacity is superimposed over the left anterior second and in the left posterior fifth rib and was not evident on the prior study. This is likely due to one of the nodules mentioned on the 02/25/2025 CT report. There is blunting of the lateral costophrenic sulci and small effusions cannot be excluded IMPRESSION: No obvious new acute chest disease on radiograph obtained the low lung volumes. Please see above Finalized by Abhi Coelho MD on 03/06/2025 1:[address] abdomen and pelvis without contrast CT ABDOMEN AND PELVIS WO CONT CLINICAL INDICATION: Hydronephrosis; OBS uropathy, Abd distension . COMPARISON STUDY: 02/24/2025. TECHNIQUE: CT scan of the abdomen and pelvis performed without IV or PO contrast. Coronal and sagittal reformats generated and reviewed. FINDINGS: Lack of intravenous contrast limits evaluation of the viscera and vessels. LOWER THORAX: Indeterminate bilateral lung base nodules. HEPATOBILIARY: No focal aggressive appearing hepatic lesions. No biliary ductal dilatation. Cholelithiasis. SPLEEN: Atrophic. PANCREAS: Grossly normal for technique. ADRENALS: No exophytic adrenal nodules. KIDNEYS/URETERS: Redemonstrated 2.2 cm right renal mass lesion. No obstructive renal calculus. No collecting system dilatation. Bladder: Underdistended, limiting evaluation. PELVIC ORGANS: Similar appearance of a 20 cm cystic pelvic lesion, reportedly rectal origin adenocarcinoma. GI TRACT: Colonic dilatation with transition at the sigmoid junction. LYMPH NODES: 1.1 cm mesorectal node versus pelvic wall deposit. VESSELS: No abdominal aortic aneurysm. BONES AND SOFT TISSUES: Few sclerotic pelvic lesions. PERITONEUM/RETROPERITONEUM: Small volume free fluid. Multiple pelvic wall deposits including (series 2) -Image 56, 2.7 x 2.0 cm, left pelvic sidewall, -Image 48, 1.3 cm, left anterior peritoneum -Image 28, 1.4 x 1.0 cm, left anterior peritoneum IMPRESSION: * Colonic dilatation with transition at the sigmoid junction. Concern for obstruction from the known large rectal mass vs multicentric colorectal carcinoma. Postprocedural ileus or colonic pseudoobstruction could appear similarly in the appropriate clinical setting. * Similar appearance of a 20 cm cystic pelvic lesion, recently characterized as rectal adenocarcinoma. * Peritoneal carcinomatosis. * Indeterminate bilateral lung base pulmonary nodules, presumed metastatic. * Few sclerotic pelvic lesions may reflect additional osseous metastases. * Mild right hydroureteronephrosis, likely secondary to pelvic mass effect on the ureter. * Redemonstrated 2.2 cm right interpolar renal mass lesion concerning for RCC. All CT scans at this facility use dose modulation, iterative reconstruction, and/or weight based dosing when appropriate to reduce radiation dose to as low as reasonably achievable. Clinically significant results were instructed to call for clinical service on 03/06/2025 at 12:04 PM. This will be documented in [employer] results tracking once complete. Finalized by Amari Mcgregor on 03/06/2025 12:04 PM Assessment: Caren Suarez is a 69 y.o.female with obstruction secondary to a large abdominal mass. The mass isbiopsy-proven colorectal adenocarcinoma. Her abdomen is significantly distended but not peritonitic. The case was discussed with Dr. Castillo. Given the patient's INR on 03/06 of 4.2, she would need this to be corrected before surgical intervention. Plan: Possible surgical intervention pending medical management and optimization Rest of care per primary and consulting teams Recommend discontinuing heparin drip Continue NPO London Merino MD General Surgery Resident, PGY-1 03/07/2025 12:55 PM Colorectal Surgery Colorectal Surgery 6a-6p pager #[phone] (CRS) 6p-6a pager #[phone] (Night Float) Cosigned by Ghassan Castillo MD at 03/07/2025 2:48 PM EDT Associated attestation - Ghassan Castillo MD - 03/07/2025 2:48 PM EDT Patient with clinical bowel obstruction. Cat scans were reviewed. Large adnexal masses present. Recent CT scan demonstrates obstruction at the sigmoid colon. Patient did undergo paracentesis and biopsy with evidence of malignancy most consistent with colon cancer. Patient with significantly elevated tumor markers. Patient with findings consistent with pulmonary Mets as well as carcinomatosis. Patient is currently coagulopathic with an INR 4.8 this needs to be corrected Would then plan on emergent surgery with probable creation of colostomy and plan for resection of adnexal mass. I did discuss with Gynecology Oncology * William Burnett - 03/06/2025 9:21 PM EDTAssociated Order(s): IP CONSULT TO SPIRITUAL CARE Summary: Spiritual Care Consult for Advance Directive Assistance Advance Directives: After Patient's nurse confirmed the patient's capacity to make informed health care decisions, Preload Supervisor provided patient with education on the need for advance directives and a copy of the [place] Advance Directive packet. Patient declined completing them at this time. A Preload Supervisor is available for follow up, when patient wants to complete the paperwork or wants Preload Supervisor help with patient questions. Chaplains may be reached through the hospital inverform machine operator or as a Spiritual Care consult on the [employer] system. A thermometer tester is available 23/01 to offer spiritual and emotional support and may be reached through the [facility] inverform machine operator at [phone]. Patient would like her Nephew, Napoleon Easton to be her DPOA-HC. She is also interested in a Living Will. Per Kaleigh Washburn MD * Kaleigh Washburn MD - 03/06/2025 6:34 PM EDTAssociated Order(s): IP CONSULT TO PALLIATIVE MEDICINE Images from the original note were not included. [facility] PALLIATIVE CARE CONSULTATION Date of Service: 03/06/2025 Patient Name: Caren Suarez : 1955 Reason for Consultation: Cancer related pain CC: new colon cancer Subjective SUBJECTIVE HPI: 69 y.o. female presented to an OSH with increased SOB and work up found pulmonary emboli. Further studies showed Pulmonary nodules consistent with mets. Ct of abd and pelvis showed large partially solid and partially cystic lesion in the right adnexa measuring 16 cm x 12 cm x 11 cm + lower anterior abdominal soft tissue nodules + 2.5 cm solid R renal lesion + diffuse intraperitoneal fluid. Biopsy pathology positive for mucinous adenocarcinoma consistent with colorectal origin. Patient saidthat she really is not having significant pain. She does have some abd cramping. She said she was unable to take the go-lyetly for the colonoscopy because of sever nausea. She said it is hard to takein anything. She lives a lone, never and no children. Her mom is still alive and she is themiddle of 5 children. She is still working and just paid off her house. Past Medical History: Diagnosis Date Deep vein thrombosis (CMS-HCC) No past surgical history on file. Allergies: Penicillin Family History Problem Relation Age of Onset Breast cancer Neg Hx Social History Tobacco Use Smoking status: Former Types: Cigarettes Smokeless tobacco: Never Substance Use Topics Alcohol use: Never Drug use: Never Objective OBJECTIVE BP 151/69 Pulse 89 Temp 36.3 ??C (97.4 ??F) (Oral) Resp 16 Ht 157.5 cm (5' 2.01 ) Wt 77.8kg (171 lb 8.3 oz) SpO2 95% BMI 31.36 kg/m?? Intake/Output Summary (Last 24 hours) at 03/06/2025 1834 Last data filed at 03/06/2025 1245 Gross per 24 hour Intake -- Output 35 ml Net -35 ml EXAM: Alert, oriented but tired. No respiratory distress. Ad is distended and tender to palpation. Palliative Care Discussion: Patient's pain is tolerable but she does get cramping at times. In light of the CT findings, possible obstruction, will use short acting opioids for pain. Discussed with Patient ACP and she is aware of ACP forms because her mom has them. She want her nephew to be DPOA-HC. She is willing to review Living Will. She recognizes the need to get some documents in order. Right now code status will remain full until she knows more about her prognosis. ASSESSMENT Metastatic Colorectal Cancer-mucinous adenocarcinoma Encounter for PC Cancer related pain- cramping Code status- full ACP- wants nephew to be DPOA-HC 3. Abd distended and tender - may have obstruction 4. Unable to take in Go-lytely d/t nausea 5. Edema PLAN Spiritual Care for ACP Patient feels upset that she could not drink the go-lytely, Could she have an NG and receive the medication through the NG for when she needs the colonoscopy? Tylenol for mild pain Oxycodone 2.5 - 5mg q 4 hours po prn for mod-severe pain Await surgery consult Thank you for the opportunity to participate in the care of this patient. The palliative care team will continue to follow. Please contact us if we can be of additional assistance [phone]. In preparation for, or response to, today's visit I Reviewed today's CBC/BMP, Reviewed recent CT scan, Reviewed recent progress notes, Reviewed consult notes, and Discussed and coordinated care with nursing Advance Care Planning A separately identifiable advance care planning discussion was performed on 03/06/2025. Discussion was held with Caren Bibsena . Consent to perform ACP services was obtained and patient/family engaged in conversation voluntarily. See Palliative Care Discussion above in regards to the content of discussion. I spent 18 minutes providing advance care planning services to the patient/family today, separate from today's symptom management visit. [id number] Electronically signed by: Kaleigh Washburn MD * Brenda Hayes MD - 03/06/2025 2:46 PM EDT Images from the original note were not included. [facility] Artur Small, [facility] Nephrology Consultation Note Patient Name: Caren Suarez : 1955 Date of Service: 03/06/25 PCP: Riya Diego MD Attending Physician: Dario Burris MD Admission Date: 02/25/2025 Length of stay: LOS: 9 days Chief complaint. No chief complaint on file. Reason for Consult: Assessment and Plan. 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 She reports having a hard time breathing and a cough that went away ( she has had a hard time breathing and had a cough but it went away ). She had been treated by her PCP with steroids and antibiotics without improvement. An outpatient CT abdomen/pelvis on 02/24/2025 revealed a large right adnexal mass, a solid right renal lesion, and likely metastases to the lungs and abdomen. Venous duplex showed bilateral DVTs. She was transferred from [place] to [facility] for further evaluation and management. In the emergency department, she was started on a heparin drip. Workup upon admission included a CTA chest on 02/25/2025, which confirmed moderate right-sided pulmonary emboli without right heart strain. She is currently being treated for a urinary tract infection and bacterial peritonitis with IV Rocephin and Flagyl, with Infectious Disease on board. Nephrology consultation was requested for acute kidney injury. Assessment Acute Kidney Injury, likely multifactorial with hemodynamic and prerenal components, with concern for acute tubular necrosis (ATN). Baseline creatinine is approximately 0.9 mg/dL. The TASHA is in the setting of sepsis, treatment for bacterial peritonitis, and obs uropathy , There was contrast exposure on 02/24/2025. Right hydrnephrosis Mild hyponatremia on initial evaluation. Metabolic acidosis on initial evaluation. Volume Status: Euvolemic , possibly on low side Hypertension: Stable, though has been on the higher side. Hemodynamics: Echocardiogram on 02/26/2025 showed a normal LVEF of 60-65% with Grade I diastolic dysfunction and no evidence of right heart strain. Anemia Most recent hemoglobin is 10.8 g/dL. Sepsis secondary to bacterial peritonitis and UTI. 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 ? Rectal ca Acute pulmonary embolism and bilateral DVT. Plan Urine studies reviewed: most likely prerenal etiology; consistent urine study and possible early ATN noted granular cast on urinalysis. Patient started on IV fluids. Patient does have possible ileus versus small bowel obstruction. Surgery consulted. She has right-sided hydronephrosis, possible pressure effect from the tumor. Patient will benefit from decompression. Urology evaluation requested. Strict ins and outs / accurate documentation of urine out put / daily weights and Bladder scan Q12 Avoid nephrotoxins, avoid contrast exposure unless absolutely necessary, avoid hemodynamic instability Dose all medications to GFR Monitor Renal Chem panel daily in AM Thank you for this consultation, we will follow along with you regarding care of this patient whilethe patient is here in the hospital, please call if you have any questions or concerns. BRENDA HAYES MD on 03/06/2025 at 2:46 PM [facility] [email or web address] is now [employer] Schedule : See Epic on-call schedule for [facility] ( [facility] ) Nephrology Working Hours : Epic chat during working hours, if no response please use on- call physician reach out as below After Hours : Answering service contact : [phone] Office Phone number: [phone] History of presenting illness Past Medical History: Diagnosis Date Deep vein thrombosis ([facility]-HCC) No past surgical history on file. Family History Problem Relation Age of Onset Breast cancer Neg Hx Social History Socioeconomic History Marital status: Single Spouse name: Not on file Number of children: Not on file Years of education: Not on file Highest education level: Not on file Occupational History Not on file Tobacco Use Smoking status: Former Types: Cigarettes Smokeless tobacco: Never Substance and Sexual Activity Alcohol use: Never Drug use: Never Sexual activity: Not on file Other Topics Concern Not on file Social History Narrative Not on file Social Drivers of Health Financial Resource Strain: Not on file Food Insecurity: No Food Insecurity (02/25/2025) Hunger Screening Food Insecurity - Worry: Never True Food Insecurity - Inability: Never True Transportation Needs: No Transportation Needs (02/25/2025) PRAPARE - Transportation Lack of Transportation (Medical): No Lack of Transportation (Non-Medical): No Physical Activity: Not on file Stress: Not on file Social Connections: Not on file Interpersonal Safety: Not At Risk (02/25/2025) Humiliation, Afraid, Rape, and Kick questionnaire Fear of Current or Ex-Partner: No Emotionally Abused: No Physically Abused: No Sexually Abused: No Housing Instability: Low Risk (02/25/2025) Housing Instability Housing Instability: No Prior to Admission medications Medication Sig Start Date End Date Taking? Authorizing Provider apixaban (ELIQUIS) 5 mg tablet Take 2 tablets (10 mg total) by mouth 2 (two) times a day for 7 days, THEN 1 tablet (5 mg total) 2 (two) times a day for 30 days. 03/05/25 04/11/25 Eleni Harding APRN-ASSISTANT DIRECTOR OF [employer]IDENCE [employer] Allergies Allergen Reactions Penicillin Review Of Systems: 12 point review of systems was done in detail and is negative except as above in HPI Physical Exam: VITALS BP 163/77 Comment: rn notified Pulse 90 Temp 36.3 ??C (97.3 ??F) (Oral) Resp 16 Ht 157.5 cm(5' 2.01 ) Wt 77.8 kg (171 lb 8.3 oz) SpO2 95% BMI 31.36 kg/m?? Wt Readings from Last 3 Encounters: 03/06/25 77.8 kg (171 lb 8.3 oz) 02/24/25 74.4 kg (164 lb) BMI: Body mass index is 31.36 kg/m??. I/O (24 Hours) Intake/Output Summary (Last 24 hours) at 03/06/2025 1446 Last data filed at 03/06/2025 1245 Gross per 24 hour Intake -- Output 35 ml Net -35 ml General: Alert and oriented, appears stated age, in no acute distress. HEENT: No conjunctival pallor, anicteric sclera, no oropharyngeal erythema. Mucous membranes are moist. Neck: Supple, no lymphadenopathy, no JVD. Cardiovascular: Regular rate and rhythm, no murmurs, rubs, or gallops. Respiratory: Clear to auscultation, normal effort, no wheezes or crackles. Abdomen: Tensely distended, soft, nontender. Bowel sounds are normal. Extremities: Bilateral lower extremity edema. Peripheral pulses palpable. No calf pain. Neurological: Alert and oriented to person, place, and time. No focal deficits. Skin: No rashes or lesions. Warm. Psychiatric: Appropriate affect, no acute distress. Medications Scheduled Meds: [START ON 03/07/2025] amLODIPine, 10 mg, oral, Daily folic acid, 1 mg, oral, Daily pantoprazole, 40 mg, oral, QAM AC sodium chloride, 3 mL, intravenous, Q12H JOSE [COMPLETED] sodium,potassium,mag sulfates, 177 mL, oral, Once AND sodium,potassium,mag sulfates, 177 mL, oral, Once Continuous Infusions: D5 % and 0.45 % sodium chloride 1,000 mL with sodium bicarbonate 8.4 % (1 mEq/mL) 75 mEq infusion, 100 mL/hr dextrose 5 % in water, 100 mL/hr heparin, 300-3,500 Units/hr sodium chloride 0.9 %, 20 mL/hr PRN Meds: acetaminophen dextrose dextrose 5 % in water dextrose 50 % in water (D50W) glucagon (human recombinant) heparin (porcine) hydrALAZINE magnesium sulfate magnesium sulfate ondansetron potassium chloride OR potassium chloride OR potassium chloride IV (Adult) sennosides-docusate sodium sodium chloride sodium chloride sodium chloride sodium chloride 0.9 % Results Review Renal Chemistry Results from last 7 days Lab Units 03/06/25 0536 03/05/25 0403 03/04/252 03/04/25 0716 03/03/25 0436 03/02/25 0644 SODIUM mmol/L 136 138 -- 138 136 137 POTASSIUM mmol/L 4.2 4.0 4.1 3.6 3.8 4.0 CHLORIDE mmol/L 104 106 -- 105 106 108 CO2 mmol/L 18* 17* -- 18* 18* 22 BUN mg/dL 33* 23 -- 18 13 12 CREATININE mg/dL 1.22* 0.95 -- 0.89 0.82 0.84 CALCIUM mg/dL 9.2 9.2 -- 8.6 8.4* 7.9* MAGNESIUM mg/dL 2.6 2.4 -- 2.4 2.2 2.1 Hepatic: Lab Results Component Value Date AST 21 02/24/2025 AST 24 02/24/2025 ALT 15 02/24/2025 ALT 15 02/24/2025 ALKPHOS 105 02/24/2025 ALKPHOS 100 02/24/2025 BNP Lab Results Component Value Date BNP 34 03/06/2025 BNP 61 02/24/2025 CBC Results from last 7 days Lab Units 03/06/25 1401 03/06/25 0536 03/05/25 0403 03/04/25 0716 03/03/25 0436 03/02/25 0644 WBC x10E9/L -- 15.4* 16.0* 16.5* 12.8* 11.8* HEMOGLOBIN g/dL 11.2* 11.2* 10.8* 10.7* 9.6* 8.9* HEMATOCRIT % -- 35.8 34.7* 34.1* 30.9* 29.1* PLATELETS X10E9/L 366 358 391 355 367 341 Results from last 7 days Lab Units 03/06/25 0536 03/05/25 0403 03/04/25 0716 03/03/25 0436 03/02/25 0644 GLUCOSE mg/dL 105* 123* 98 82 96 Urine Studies: Lab Results Component Value Date COLOR Yellow 03/06/2025 TURBIDITY Hazy (A) 03/06/2025 SPECIFICGRA 1.023 03/06/2025 NITRITE Negative 03/06/2025 PHURINE 6.0 03/06/2025 LEUKOCYTE Small (A) 03/06/2025 PROTEIN 50 mg/dL (A) 03/06/2025 KETONES 20 mg/dL (A) 03/06/2025 UROBILINOGEN <1.1 eu/dL 03/06/2025 BLOODHGB Large (A) 03/06/2025 Lab Results Component Value Date UPROCRTRAT 0.25 (H) 03/06/2025 Urine Sodium: No components found for: CRYSTAL Urine Potassium: No results found for: KUR Urine Chloride: No results found for: CLUR Urine Osmolarity: No components found for: OSMOU Urine Creatinine: No results found for: LABCREA Urine Eosinophils: No components found for: UEOS Urine Protein: No components found for: TPU Immunology Profile No results found for: PROTELECTR , SEDRATE , CRP , RF , ANASCREEN , ANTIDSDNA , C3 , C4 , ANCA , MYELOP , PROTEINASE3 , ANTIGLOMERU No results found for: HAV , HEPAIGM , HEPBIGM , HEPBCAB , HBEAG , HEPCAB SP: No results found for: SP C3:No results found for: C3 C4:No results found for: C4 MPO ANCA: No results found for: MPO PR3 ANCA: No components found for: PR3 hepatitis serologies ANTIGBM:No components found for: GBMABIGG HEPATITIS B SURFACE AG: No results found for: HEPBSAG HEPATITIS C AB: No results found for: HEPCAB Electrophoresis: SPEP:No results found for: PROT , LABALPH , LABBETA , PATH UPEP:No results found for: LABPE Anemia Profile Lab Results Component Value Date WBC 15.4 (H) 03/06/2025 WBC 16.0 (H) 03/05/2025 HGB 11.2 (L) 03/06/2025 HGB 11.2 (L) 03/06/2025 HCT 35.8 03/06/2025 HCT 34.7 (L) 03/05/2025 PLT 366 03/06/2025 PLT 358 03/06/2025 Lab Results Component Value Date IRON 12 (L) 02/26/2025 TIBC 321 02/26/2025 FERRITIN 78 02/26/2025 Bone Mineral Profile Lab Results Component Value Date CALCIUM 9.2 03/06/2025 Results from last 7 days Lab Units 03/06/25 0536 03/05/25 0403 03/04/25 0716 MAGNESIUM mg/dL 2.6 2.4 2.4 Echocardiogram: Echo complete W/O contrast Result Date: 02/26/2025 Left Ventricle: Left ventricle is small. Systolic function is normal with an ejection fraction of 60-65%. No segmental wall motion abnormalities. Grade I diastolic dysfunction (impaired relaxation) is present. Lateral E' is 11.70 cm/s. Medial E' is 7.94 cm/s. Right Ventricle: Right ventricular sizeappears normal. The right ventricular basal diameter is 22.0 mm. Systolic function is normal. Aortic Valve: There is trace to mild regurgitation. There is no evidence of aortic valve stenosis. Thank you for the consultation. Please do not hesitate to contact us for any further questions/concerns. We will continue to follow along with you. * Brenda Hayes MD - 03/06/2025 9:47 AM EDTAssociated Order(s): IP CONSULT TO NEPHROLOGY Images from the original note were not included. 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 She reports having a hard time breathing and a cough that went away ( she has had a hard time breathing and had a cough but it went away ). She had been treated by her PCP with steroids and antibiotics without improvement. An outpatient CT abdomen/pelvis on 02/24/2025 revealed a large right adnexal mass, a solid right renal lesion, and likely metastases to the lungs and abdomen. Venous duplex showed bilateral DVTs. She was transferred from [place] to [facility] for further evaluation and management. In the emergency department, she was started on a heparin drip. Workup upon admission included a CTA chest on 02/25/2025, which confirmed moderate right-sided pulmonary emboli without right heart strain. She is currently being treated for a urinary tract infection and bacterial peritonitis with IV Rocephin and Flagyl, with Infectious Disease on board. Nephrology consultation was requested for acute kidney injury. Assessment Acute Kidney Injury, likely hemodynamic/cardiorenal with a pre-renal component and concern for ATN.There is no evidence of obstructive uropathy on CT scan from 02/24/2025. No recent nephrotoxin exposure, but had contrast for CT on 02/25/2025. R/O OBS uropathy Mild Hyponatremia on initial evaluation. Metabolic acidosis on initial evaluation. Volume Status: Hypervolemic, evidenced by abdominal distension and bilateral lower extremity edema. Hypertension: Stable, on the higher side. Hemodynamics: Echocardiogram on 02/26/2025 showed a normal ejection fraction of 60-65% with Grade Idiastolic dysfunction. No evidence of right heart strain. Sepsis secondary to bacterial peritonitis and UTI. Ovarian cystic lesion, likely malignancy with ascites and peritoneal nodularity. Acute pulmonary embolism without right heart strain. Numerous pulmonary nodules, likely metastasis. Acute DVT of both lower extremities. Solid right renal lesion. Plan Check urinalysis, urine studies, uric acid, and BNP. Check CT abdomen/pelvis without contrast. Check chest X-ray today. Patient is on room air, we will decide on diuretics once we have the results of the above studies available. Strict I&O, accurate documentation of urine output. Dose all medications to GFR. Renal chemistry panel monitoring in AM. Full Consultation note to follow Thank you for this consultation, we will follow along with you regarding care of this patient whilethe patient is here in the hospital, please call if you have any questions or concerns. BRENDA HAYES MD on 03/06/2025 at 9:52 AM [facility] [email or web address] - is now [employer] Schedule : See Epic on-call schedule for [facility] ( [facility] ) Nephrology Working Hours : Epic chat during working hours, if no response please use on- call physician reach out as below After Hours : Answering service contact : [phone] Office Phone number: [phone] * JHONATAN Lr - 03/05/2025 10:17 AM EDTAssociated Order(s): IP CONSULT TO NUTRITION SERVICES NUTRITION ADULT FOLLOW UP NUTRITION ASSESSMENT: Patient History: Brief Clinical Summary: Patient presented with abnormal CT AP and cold-like symptoms/difficulty breathing. Admitted for treatment. PMHx includes DVT. Biochemical Data, Medical Tests, and Procedures: 02/24 CT AP: ovarian lesion, renal lesion, pulmonary lesions - likely mets 02/28 IR paracentesis (-1850mL removed) 02/28 US pelvis: 18.2 cm cystic and solid lesion in the pelvis with ascites and peritoneal nodularity Failed bowel prep x2, EGD moved to March 06 Labs: Results from last 3 days Lab Units 03/05/25 0403 03/04/25 2112 03/04/25 0716 03/03/25 0436 SODIUM mmol/L 138 -- 138 136 POTASSIUM mmol/L 4.0 4.1 3.6 3.8 CHLORIDE mmol/L 106 -- 105 106 CO2 mmol/L 17* -- 18* 18* BUN mg/dL 23 -- 18 13 CREATININE mg/dL 0.95 -- 0.89 0.82 CALCIUM mg/dL 9.2 -- 8.6 8.4* Results from last 7 days Lab Units 03/05/25 0403 03/04/25 0716 03/03/25 0436 03/02/25 0644 03/01/25 0609 02/28/25 0622 02/27/25 0220 GLUCOSE mg/dL 123* 98 82 96 92 80 110* Results from last 3 days Lab Units 03/05/25 0403 03/04/25 0716 03/03/25 0436 WBC x10E9/L 16.0* 16.5* 12.8* HEMOGLOBIN g/dL 10.8* 10.7* 9.6* HEMATOCRIT % 34.7* 34.1* 30.9* PLATELETS X10E9/L 391 355 367 MCV fL 72* 72* 71* Results from last 3 days Lab Units 03/05/25 0403 03/04/25 0716 03/03/25 0436 MAGNESIUM mg/dL 2.4 2.4 2.2 No data from last 3 days. No data from last 3 days. No results found for: HGBA1C Lab Results Component Value Date IRON 12 (L) 02/26/2025 TIBC 321 02/26/2025 FERRITIN 78 02/26/2025 Lab Results Component Value Date IRONSAT 4 (L) 02/26/2025 No results found for: CHOL No results found for: CHDL No results found for: HDL No results found for: LDLCALC No results found for: TRIG No results found for: VERYLOWLIP Lab Results Component Value Date [id number] 110 (L) 02/26/2025 Lab Results Component Value Date FOLATE 3.3 (L) 02/26/2025 No results found for: VITD25 Comments (labs): CO2 17 L Medications/ Parenteral: Folvite, abx, protonix, glycolate Current Facility-Administered Medications Medication Dose Route Frequency Provider Last Rate Last Admin acetaminophen (TYLENOL) tablet 650 mg 650 mg oral Q6H PRN Neelima Ta APRN- ASSISTANT DIRECTOR OF RESIDENCE LIFE 325 mg at 03/01/25 0824 amLODIPine (NORVASC) tablet 5 mg 5 mg oral Daily Eleni Harding APRN-ASSISTANT DIRECTOR OF [employer]ID[employer] 5 mg at 03/05/25 0844 cefTRIAXone (ROCEPHIN) 2,000 mg in sodium chloride 0.9 % 50 mL IVPB W/ADAPTER 2,000 mg intravenous Q24H ELLIOTT Chavez Stopped at 03/04/25 1213 dextrose (GLUTOSE) 40 % gel 15 g 15 g oral PRN Neelima Ta APRN-DUYEN dextrose 5 % (D5W) infusion 100 mL/hr intravenous Continuous PRN Neelima R Ta, STUDENT TRUCK DRIVER-ASSISTANT DIRECTOR OF [employer]ID[employer] dextrose 50 % in water (D50W) 50% solution 25 mL 25 mL intravenous PRN Neelima Ta APRN-DUYEN folic acid (FOLVITE) tablet 1 mg 1 mg oral Daily Tanya KrausSADIE-ASSISTANT DIRECTOR OF [employer]IDENCE LIFE 1 mg at 03/05/25 0844 glucagon HCL injection 1 mg 1 mg intramuscular PRN Neelima Ta APRN-DUYEN heparin (porcine) injection 5,000 Units 5,000 Units intravenous PRN Tyson RitchieSADIE-ASSISTANT DIRECTOR OF [employer]IDENCE [employer] 5,000 Units at 03/05/25 0641 heparin infusion 32213 units/500 mL in 0.45% NaCl (50 units/mL premix) 300-2,090 Units/hr intravenous Continuous Dario Burris MD 27 mL/hr at 03/05/25 0646 1,350 Units/hr at 03/05/25 0646 hydrALAZINE (APRESOLINE) injection 10 mg 10 mg intravenous Q6H PRN Eleni Harding APRN-ASSISTANT DIRECTOR OF [employer] 10 mg at 03/04/25 1335 magnesium sulfate IVPB 2000 mg/50 mL in iso-osmotic water (40 mg/mL premix) 2,000 mg intravenous PRN Neelima Ta APRN-DUYEN magnesium sulfate IVPB 4000 mg/100 mL in iso-osmotic water (40 mg/mL premix) 4,000 mg intravenous PRN Neelima Ta APRN-DUYEN metroNIDAZOLE (FLAGYL) IVPB 500 mg/100 mL in iso-osmotic sodium chloride (5 mg/mL premix) 500 mg intravenous Q12H Dario Burris MD 100 mL/hr at 03/05/25 0845 500 mg at 03/05/25 0845 ondansetron (PF) (ZOFRAN) injection 4 mg 4 mg intravenous Q4H PRN Neelima Ta APRN-ASSISTANT DIRECTOR OF [employer] 4 mg at03/04/25 1700 pantoprazole (PROTONIX) EC tablet 40 mg 40 mg oral QAM AC Neelima Ta APRN- DUYEN 40 mg at 03/05/25 0531 polyethylene glycol (GLYCOLAX) packet 119 g 119 g oral Q8H Baudilio Vela MD 119 g at 03/04/25 2112 potassium chloride (K-TAB,KLOR-CON) CR tablet 30-50 mEq 30-50 mEq oral PRN Neelima R Ta, STUDENT TRUCK DRIVER-ASSISTANT DIRECTOR OF [employer] 30 mEq at 03/04/25 1534 Or potassium chloride (KAYCIEL) 20 mEq/15 mL solution 30-50 mEq 30-50 mEq oral PRN Neelima R Ta, STUDENT TRUCK DRIVER-ASSISTANT DIRECTOR OF [employer] Or potassium chloride IVPB 10 mEq/100 mL in water (0.1 mEq/mL premix) 10 mEq intravenous PRN Neelima R Ta, STUDENT TRUCK DRIVER-ASSISTANT DIRECTOR OF [employer]ID[employer] sennosides-docusate sodium (SENOKOT-S) 8.6-50 mg 1 tablet 1 tablet oral Q12H PRN Neelima R Ta, STUDENT TRUCK DRIVER-ASSISTANT DIRECTOR [employer] sodium chloride 0.9 % flush 10 mL 10 mL intravenous PRN Deena Branch MD 10 mL at 02/25/25 1857 sodium chloride 0.9 % flush 3 mL 3 mL intravenous PRN Neelima R Ta, STUDENT TRUCK DRIVER-ASSISTANT DIRECTOR OF [employer] sodium chloride 0.9 % flush 3 mL 3 mL intravenous Q12H JOSE Neelima R Ta, STUDENT TRUCK DRIVER-ASSISTANT DIRECTOR OF [employer] 3 mL at 03/04/25 2110 sodium chloride 0.9 % flush bag 25 mL intravenous PRN Neelima R Ta, STUDENT TRUCK DRIVER-ASSISTANT DIRECTOR [employer] sodium chloride 0.9 % infusion 20 mL/hr intravenous Continuous PRN Neelima R Ta, STUDENT TRUCK DRIVER-ASSISTANT DIRECTOR OF [employer] sodium,potassium,mag sulfates (SUPREP) 17.5-3.13-1.6 gram solution 177 mL 177 mL oral Once [place] Soledad Segura MD Nutrition Focused Physical Findings Last BM 03/04, Skin (per nursing flow sheets): Skin Color: [place] (03/05/25829) Skin Temp: Warm; Dry (03/05/25829) Wound (per nursing flow sheets): Gastrointestinal (per nursing flow sheets): Abdomen Assessment: Distended (03/05/25829) Last BM Date: 03/04/25 (03/04/252012) Passing Flatus: No (03/05/25829) RUQ Bowel Sounds: Hypoactive (03/05/25829) LUQ Bowel Sounds: Hypoactive (03/05/25829) RLQ Bowel Sounds: Hypoactive (03/05/25829) LLQ Bowel Sounds: Hypoactive (03/05/25829) GI Symptoms: Distention (03/05/25829) Edema (per nursing flow sheets): RLE Edema: +3 (03/05/25829) LLE Edema: +2 (03/05/25829) Intake/ Output Last 24 hrs: No intake or output data in the 24 hours ending 03/05/25 1018 Food/Nutrition Related History: Diet/ Nutrition Order Review: Dietary Orders (From admission, onward) Start Ordered 03/04/25 0633 Adult diet Clear Liquid Diet effective now Question: Diet Type: Answer: Clear Liquid 03/04/25 0632 Diet History: Patient reports not issues with appetite M1 [employer] Diet Intakes: CLD/NPO x 4 days, poor PO per MD consult - patient reports feeling completely full with bowel prep, having difficulty even finishing that. CLD does not provide adequate nutrition - encouraged pt to complete bowel prep in order to advance diet after procedure. Oral Supplemental Intake/ Acceptance: none ordered Anthropometrics: Ht Readings from Last 1 Encounters: 02/25/25 157.5 cm (5' 2.01 ) Last 3 Weight Readings 03/03/25 0100 03/04/25 0409 03/05/25 0223 Weight: 71.5 kg (157 lb 10.1 oz) 85.5 kg (188 lb 7.9 oz) 85.9 kg (189 lb 6 oz) Current Weight: 85.9 kg (bed scale, 03/05) Admit Weight: 74.8 kg (Standing Scale, 02/26) Usual Body Weight: ~75.2 kg [place] Body Weight: 50 kg Weight Changes: monitoring Current Body Mass Index: Body mass index is 34.63 kg/m??. Comparative Standards: Estimated Energy Needs: 1383-8898 kcals daily. Method and weight used: 25-30 kcal/kg IBW Estimated Protein Needs: 60-100 grams daily. Method and weight used: 1.2-2g protein/kg IBW Estimated Fluid Needs: 4230-4514 ml daily. Method weight used: 1mL/kcal Comments: floor needs, higher end for cancer Malnutrition Status: Malnutrition Present: No NUTRITION DIAGNOSIS: Intake Diagnosis: Inadequate energy intake (NI 1.2) related to inadequate oral intake as evidenced by CLD. NUTRITION INTERVENTIONS: Advance diet as medically able GOAL(S): Meet estimated calorie and protein needs. NUTRITION MONITORING AND EVALUATION: PO intakes, weight trend, labs, POC and overall status. JHONATAN Lr RD Clinical Dietitian Direct Line ' * Jina Miller MD - 02/27/2025 2:00 PM EDTAssociated Order(s): IP CONSULT TO GASTROENTEROLOGY Images from the original note were not included. [facility] Teaching GI Service Initial Gastroenterology/Hepatology Consultation Note IDENTIFYING DATA PATIENT: Caren Suarez ADMIT DATE: 02/25/2025 TIME OF EVALUATION: 02/27/2025 2:03 PM Reason for Consult: Screening in the setting of metastasis. Admitting Physician: Deena Branch MD HISTORY OF PRESENT ILLNESS Caren Suarez is an 69 y.o. White or female. came to the hospital with abnormal test results. Patient states that she has been experiencing cold- like symptoms with to the point where she was having hard time breathing. She went to her PCP who placed her on steroids with no improvement. She then was on antibiotic therapy with still no improvement. She Was instructed to go to [facility] to undergo CT of abdomen pelvis that reported large partially solid cystic lesions within the right and ataxia ovarian carcinoma to be excluded, 2.5 cm solid right renal lesion, and small bilateral noncalcified lower lobe pulmonary nodules and abdominal soft tissue nodules likely metastasis. She also underwent venous duplex of bilateral lower extremities that reported right acute DVT and left deep calf muscle vein DVT. she was Was then sent to the ER at [place] to be further evaluated and treated. She was transferred to [facility] for further evaluation and treatment. Patient reported having episodes of blood streaks with bowel movements over the past couple of weeks. Patient also reported family history of colon cancer in her sister at age 55. She never had colonoscopy and EGD. GI HISTORY SUMMARY TABLE Last EGD Last colonoscopy Primary GI physician PAST MEDICAL, SURGICAL, FAMILY, and SOCIAL HISTORY Past Medical History: Diagnosis Date Deep vein thrombosis (CMS-HCC) No past surgical history on file. Family History Problem Relation Age of Onset Breast cancer Neg Hx Social History: Social History Tobacco Use Smoking status: Former Types: Cigarettes Smokeless tobacco: Never Substance Use Topics Alcohol use: Never Drug use: Never MEDICATIONS Allergies: Allergies Allergen Reactions Penicillin Home Medications: Prior to Admission medications Not on File Current Medications: cyanocobalamin, 1,000 mcg, intramuscular, Daily ferumoxytol, 510 mg, intravenous, Q3 Days pantoprazole, 40 mg, oral, QAM AC polyethylene glycol-electrolytes, 4,000 mL, oral, Once sodium chloride, 3 mL, intravenous, Q12H JOES PRNs: acetaminophen, 650 mg, Q6H PRN dextrose, 15 g, PRN dextrose 5 % in water, 100 mL/hr, Continuous PRN dextrose 50 % in water (D50W), 25 mL, PRN glucagon (human recombinant), 1 mg, PRN heparin (porcine), 5,000 Units, PRN magnesium sulfate, 2,000 mg, PRN magnesium sulfate, 4,000 mg, PRN ondansetron, 4 mg, Q4H PRN potassium chloride, 30-50 mEq, PRN Or potassium chloride, 30-50 mEq, PRN Or potassium chloride IV (Adult), 10 mEq, PRN sennosides-docusate sodium, 1 tablet, Q12H PRN sodium chloride, 10 mL, PRN sodium chloride, 3 mL, PRN sodium chloride, 25 mL, PRN sodium chloride 0.9 %, 20 mL/hr, Continuous PRN REVIEW OF SYSTEMS See HPI, otherwise ROS negative as below CONSTITUTIONAL: negative HEENT: negative RESPIRATORY: negative CARDIOVASCULAR: negative GASTROINTESTINAL: as in HPI GENITOURINARY: negative OBJECTIVE DATA Vitals: BP 142/61 Pulse 96 Temp 36.7 ??C (98 ??F) (Oral) Resp 16 Ht 157.5 cm (5' 2.01 ) Wt 75.2 kg (165 lb 12.6 oz) SpO2 97% BMI 30.31 kg/m?? GEN: appears stated age, NAD HEENT: normocephalic, atraumatic, no conjunctival injection NECK: trachea appears midline, no gross lymphadenopathy CV: RRR, no peripheral edema PULM: breathing comfortably ABD: soft, non-tender, non-distended NEURO: alert and oriented x3 SKIN: no rashes LABS AND IMAGING CBC: Lab Results Component Value Date WBC 10.8 02/27/2025 HGB 8.5 (L) 02/27/2025 HCT 27.5 (L) 02/27/2025 MCV 70 (L) 02/27/2025 RDW 18.7 (H) 02/27/2025 PLT 243 02/27/2025 CMP: Lab Results Component Value Date K 4.1 02/27/2025 CL 106 02/27/2025 CO2 23 02/27/2025 BUN 21 02/27/2025 GLU 110 (H) 02/27/2025 Lipase: No components found for: LIP Amylase: No results found for: KATE Ionized Calcium: No components found for: IONCA Magnesium: Lab Results Component Value Date MG 2.3 02/27/2025 Phosphorus: No components found for: PO4 PT/INR: Lab Results Component Value Date INR 1.2 02/24/2025 TSH: No results found for: TSH VITAMIN B12: No components found for: B12 FOLATE: Lab Results Component Value Date FOLATE 3.3 (L) 02/26/2025 IRON: No results found for: FE Iron Saturation: No components found for: PERCENTFESAT TIBC: Lab Results Component Value Date TIBC 321 02/26/2025 FERRITIN: Lab Results Component Value Date FERRITIN 78 02/26/2025 MICRO Blood Culture: No components found for: CBLOOD , CFUNGUSBL Stool Culture: No components found for: CSTOOL IMAGING: Echo complete W/O contrast Result Date: 02/26/2025 Left Ventricle: Left ventricle is small. Systolic function is normal with an ejection fraction of 60-65%. No segmental wall motion abnormalities. Grade I diastolic dysfunction (impaired relaxation) is present. Lateral E' is 11.70 cm/s. Medial E' is 7.94 cm/s. Right Ventricle: Right ventricular sizeappears normal. The right ventricular basal diameter is 22.0 mm. Systolic function is normal. Aortic Valve: There is trace to mild regurgitation. There is no evidence of aortic valve stenosis. CT angiogram chest Result Date: 02/25/2025 CLINICAL INFORMATION: DVT's TECHNIQUE: CT CTA CHEST CTA of the chest was obtained post intravenous administration of contrast. Post processed three- dimensional maximum intensity projection imaging was acquired and evaluated. There are moderate right-sided pulmonary emboli. No appreciable right heart strain. Right lower lobe infiltrate or atelectasis appreciated. There are bilateral pulmonary nodules appreciated most suggestive of metastasis, as previous described. Limited images of the upper abdomen again show free intraperitoneal fluid. Refer to previously dictated CT abdomen. No obvious medi astinal lymphadenopathy. Coronary arterial atherosclerotic calcification noted. Osseous structures appear grossly intact. IMPRESSION: Moderate right sided pulmonary emboli without evidence of right heart strain. Right lower lobe infiltrate or atelectasis. Numerous pulmonary nodules, likely metastasis. I personally called these findings to nurse Muhammad of the clinical service at time of dictation.All CT scans at this facility use dose modulation, iterative reconstruction, and/or weight based dosing when appropriate to reduce radiation dose to as low as reasonably achievable. Finalized by Chau Nicole MD on 02/25/2025 7:09 PM Vas venous duplex lwr bilateral Result Date: 02/24/2025 Right: Dilated noncompressible distal femoral, popliteal, posterior tibial, peroneal and deep calf muscle veins with hypoechoic intraluminal content and absent spectral Doppler signals. Remaining visualized deep venous segments are compressible with spontaneous phasic spectral Doppler waveforms. Superficial veins are compressible. Left: Limited contralateral duplex evaluation completed. Dilated Non-compressible deep calf muscle veins with hypoechoic intraluminal content and absent spectral Doppler signals. Common femoral, femoral, and popliteal veins are compressible without intraluminal content. Spontaneous, common femoral, femoral and popliteal spectral Doppler signals. Evaluation of superficial veins was not performed. Conclusions: RIGHT:ACUTE femoropopliteal deep vein thrombosis (DVT).ACUTE deep tibioperoneal vein thrombosis (DVT). ACUTE deep calf muscle vein thrombosis (DVT). NO EVIDENCE of superficial vein thrombosis of the lower extremity. LEFT:Limited visualization of lower extremity venous segments.ACUTE deep calf muscle vein thrombosis (DVT). CT abdomen and pelvis with contrast Result Date: 02/24/2025 CLINICAL INFORMATION: Localized swelling, mass and lump, lower limb, right; Generalized abdominal pain; Abdominal distension; SOB (shortness of breath); Tachycardia TECHNIQUE: CT ABDOMEN AND PELVIS WCONT CT images of the abdomen and pelvis are obtained. Intravenous contrast was administered. Images are reformatted in the sagittal and coronal planes. There are no prior exams available for comparison. There is diffuse free intraperitoneal fluid. Large partially solid and partially cystic lesion noted within the right adnexa measuring 16 cm x 12 cm x 11 cm. Ovarian carcinoma is the diagnosis ofexclusion. Regions of soft tissue nodularity noted anterior lower abdomen. There are small bilateral lower lobe pulmonary nodules. Right basilar atelectasis also appreciated. Pancreas unremarkable. Adrenal symmetric. Large dependently layering gallstone. Small bowel is nondistended without evidenceof obstruction. Mild thoracolumbar degenerative changes. No acute osseous abnormalities. Prominent nodes appreciated at the diya hepatis. IMPRESSION: Large partially solid partially cystic lesion within the right adnexa. Ovarian carcinoma is diagnosis of exclusion. 2.5 cm solid right renal lesion.Renal cell carcinoma is diagnosis of exclusion. Diffuse free intraperitoneal fluid. Small bilateral noncalcified lower lobe pulmonary nodules and lower anterior abdominal soft tissue nodules, likely metastasis. Prominent nodes in diya hepatis. THIS REPORT CONTAINS A SIGNIFICANT RESULT AND/OR RECOMMENDATION, WHICH REQUIRES THE ATTENTION OF THE LICENSED CAREGIVER RESPONSIBLE FOR THIS PATIENT. THEREFORE, I SPECIFICALLY DESIGNATED THIS REPORT TO BE TELEPHONED BY THE RADIOLOGY DEPARTMENT. FINDINGS WERE INSTRUCTED TO BE CALLED TO THE CLINICAL SERVICE ON 02/24/2025 AT 4:[address] scans at this facility use dose modulation, iterative reconstruction, and/or weight based dosing when appropriate to reduce radiation dose to as low as reasonably achievable. Finalized by Chau Nicole MD on 02/24/2025 4:15 PM ASSESSMENT AND PLAN Caren Suarez is a 69 y.o. female who has Caren Suarez is an 69 y.o. White or female. came to the hospital with abnormal test results. Patient states that she has been experiencing cold-like symptoms with to the point where she was having hard time breathing. She went to her PCP who placed her on steroids with no improvement. She then was on antibiotic therapy with still no improvement. She Was instructed to go to [facility] to undergo CT of abdomen pelvis that reported largepartially solid cystic lesions within the right and ataxia ovarian carcinoma to be excluded, 2.5 cmsolid right renal lesion, and small bilateral noncalcified lower lobe pulmonary nodules and abdominal soft tissue nodules likely metastasis. She also underwent venous duplex of bilateral lower extremities that reported right acute DVT and left deep calf muscle vein DVT. she was Was then sent to theER at [place] to be further evaluated and treated. She was transferred to [facility] for further evaluation and treatment. Patient reported having episodes of blood streaks with bowel movements over the past couple of weeks. Patient also reported family history of colon cancer in her sister at age 55. She never had colonoscopy and EGD. - Intermittent episodes of bloody bowel movements. - Family history of first degree relative with colon cancer (Sister diagnosed with colon cancer at age of 55) - History of ovarian mass and metastasis - Acute PE and DVT Plan Will proceed with Screening colonoscopy and EGD in the setting of metastasis. Hold heparin MN in anticipation of EGD/ CLN GI will follow This consult will be discussed with attending physician. If you have any questions please feel freeto contact the GI Service. Thank you for allowing us to participate in the care of Caren Suarez. [place] [facility] GI Service 7 am to 5pm weekdays in house 5 pm to 7 am or weekends please contact the inverform machine operator to page the fellow motion picture printer Jina Miller MD Gastroenterology and hepatology fellow [facility] Cosigned by Jb Broussard MD at 02/28/2025 9:19 AM EDT Associated attestation - Jb Broussard MD - 02/28/2025 9:19 AM EDT Seen and discussed with fellow, agree with history/physical exam/plan. Plan slower prep over weekend for colonoscopy Monday. * Alisa Noble MD - 02/27/2025 12:22 PM EDTAssociated Order(s): IP CONSULT TO UROLOGY Images from the original note were not included. Urology Consultation Patient: Caren Saurez Date of : 1955 CHIEF COMPLAINT: Right renal mass HISTORY OF PRESENT ILLNESS: The patient is a 69 y.o. female who presents with acute DVT/PE, worsening right leg swelling and sob. Currently on Heparin drip. Asked to see for right renal mass. Work up CT a/p showed large right adnexa complex pelvic mass with ascites and right renal mass 2.[address] angio/chest shows right PE without heart strain and numerous pulmonary nodules concerning for metastatic disease. Patient denies any weight loss. Former history of smoking, quit 12 years ago. Was 1 ppd x 40 years. Denies any significant weight loss. Admits to appetite loss. Currently with diffuse abdominal pain. Cr. 0.9, wbc 10.8, hgb 8.5. UA-small LE, negative nitrite, 10 squamous epi, 19 wbc, 68 rbc. Admits to having gross hematuria a few times over the past week. No prior hx. 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 Patient's old records, notes and chart reviewed and summarized above. Past Medical History: Past Medical History: Diagnosis Date Deep vein thrombosis (CMS-HCC) Past Surgical History: No past surgical history on file. Medications: Scheduled Meds: cyanocobalamin, 1,000 mcg, intramuscular, Daily ferumoxytol, 510 mg, intravenous, Q3 Days pantoprazole, 40 mg, oral, QAM AC sodium chloride, 3 mL, intravenous, Q12H JOSE Continuous Infusions: dextrose 5 % in water, 100 mL/hr heparin, 300-3,500 Units/hr, Last Rate: 1,150 Units/hr (02/26/25 1653) sodium chloride 0.9 %, 20 mL/hr PRN Meds:. acetaminophen dextrose dextrose 5 % in water dextrose 50 % in water (D50W) glucagon (human recombinant) heparin (porcine) magnesium sulfate magnesium sulfate ondansetron potassium chloride OR potassium chloride OR potassium chloride IV (Adult) sennosides-docusate sodium sodium chloride sodium chloride sodium chloride sodium chloride 0.9 % Allergies: Penicillin Social History: Social History Socioeconomic History Marital status: Single Spouse name: Not on file Number of children: Not on file Years of education: Not on file Highest education level: Not on file Occupational History Not on file Tobacco Use Smoking status: Former Types: Cigarettes Smokeless tobacco: Never Substance and Sexual Activity Alcohol use: Never Drug use: Never Sexual activity: Not on file Other Topics Concern Not on file Social History Narrative Not on file Social Drivers of Health Financial Resource Strain: Not on file Food Insecurity: No Food Insecurity (02/25/2025) Hunger Screening Food Insecurity - Worry: Never True Food Insecurity - Inability: Never True Transportation Needs: No Transportation Needs (02/25/2025) PRAPARE - Transportation Lack of Transportation (Medical): No Lack of Transportation (Non-Medical): No Physical Activity: Not on file Stress: Not on file Social Connections: Not on file Interpersonal Safety: Not At Risk (02/25/2025) Humiliation, Afraid, Rape, and Kick questionnaire Fear of Current or Ex-Partner: No Emotionally Abused: No Physically Abused: No Sexually Abused: No Housing Instability: Low Risk (02/25/2025) Housing Instability Housing Instability: No Family History: Family History Problem Relation Age of Onset Breast cancer Neg Hx REVIEW OF SYSTEMS: Review of Systems All other systems are reviewed and are negative except as noted. Physical Exam: This a 69 y.o. female Patient Vitals for the past 24 hrs: BP Temp Temp src Pulse Resp SpO2 Weight 02/27/25 1157 142/61 36.7 ??C (98 ??F) Oral 96 16 97 % -- 02/27/25 0803 134/65 36.8 ??C (98.3 ??F) Oral 81 16 95 % -- 02/27/25 0313 153/75 36.9 ??C (98.4 ??F) Oral 79 18 95 % 75.2 kg (165 lb 12.6 oz) 02/26/25 2300 147/63 37.2 ??C (99 ??F) Oral 95 -- 92 % -- 02/26/25 1906 155/58 36.9 ??C (98.4 ??F) Oral 101 18 96 % -- 02/26/25 1639 156/62 36.8 ??C (98.3 ??F) Oral 92 16 97 % -- Constitutional: Patient in no acute distress. Neuro: Alert and oriented to person, place and time. Psych: mood and affect normal HEENT negative Lungs: Respiratory effort is normal, non labored Cardiovascular: tachycardic 96 bpm Abdomen: firm, protuberant, non-tender, with no CVAT or flank pain. Lymphatics: No palpable lymphadenopathy. Bladder non-tender and not distended. Pelvic exam: deferred Rectal exam not indicated LABS: Results from last 7 days Lab Units 02/27/25 0220 02/26/25 0259 02/24/25 1728 POTASSIUM mmol/L 4.1 4.0 4.2 CHLORIDE mmol/L 106 102 99 CO2 mmol/L 23 23 21* BUN mg/dL 21 21 19 CREATININE mg/dL 0.90 0.93 0.99 CALCIUM mg/dL 8.2* 8.1* 8.3* Results from last 7 days Lab Units 02/27/25 0220 02/26/25 0259 02/25/25 0713 02/24/25 1728 WBC x10E9/L 10.8 12.5* -- 20.6* HEMOGLOBIN g/dL 8.5* 8.9* 9.1* 9.6* HEMATOCRIT % 27.5* 29.0* -- 31.6* PLATELETS X10E9/L 243 231 240 287 Additional Lab/culture results: Urinalysis: Lab Results Component Value Date SPECIFICGRA 1.015 02/25/2025 LEUKOCYTE Small (A) 02/25/2025 GLU 110 (H) 02/27/2025 UROBILINOGEN 2 eu/dL (A) 02/25/2025 Imaging Results: CT abdomen and pelvis with contrast Order: [id number] Status: Final result Next appt: 02/28/2025 at 10:00 AM in Radiology ([facility]) Dx: Abdominal distension; SOB (shortness ... Test Result Released: Yes (not seen) 0 Result Notes Details Reading Physician Reading Date Result Priority Chau Nicole MD [phone] 02/24/2025 Routine Narrative & Impression CLINICAL INFORMATION: Localized swelling, mass and lump, lower limb, right; Generalized abdominal pain; Abdominal distension; SOB (shortness of breath); Tachycardia TECHNIQUE: CT ABDOMEN AND PELVIS W CONT CT images of the abdomen and pelvis are obtained. Intravenous contrast was administered. Images arereformatted in the sagittal and coronal planes. There are no prior exams available for comparison. There is diffuse free intraperitoneal fluid. Large partially solid and partially cystic lesion noted within the right adnexa measuring 16 cm x 12 cm x 11 cm. Ovarian carcinoma is the diagnosis of exclusion. Regions of soft tissue nodularity noted anterior lower abdomen. There are small bilateral lower lobe pulmonary nodules. Right basilar atelectasis also appreciated. Pancreas unremarkable. Adrenal symmetric. Large dependently layering gallstone. Small bowel is nondistended without evidence of obstruction. Mild thoracolumbar degenerative changes. No acute osseous abnormalities. Prominent nodes appreciated at the diya hepatis. IMPRESSION: Large partially solid partially cystic lesion within the right adnexa. Ovarian carcinoma is diagnosis of exclusion. 2.5 cm solid right renal lesion. Renal cell carcinoma is diagnosis of exclusion. Diffuse free intraperitoneal fluid. Small bilateral noncalcified lower lobe pulmonary nodules and lower anterior abdominal soft tissue nodules, likely metastasis. Prominent nodes in diya hepatis. THIS REPORT CONTAINS A SIGNIFICANT RESULT AND/OR RECOMMENDATION, WHICH REQUIRES THE ATTENTION OF THE LICENSED CAREGIVER RESPONSIBLE FOR THIS PATIENT. THEREFORE, I SPECIFICALLY DESIGNATED THIS REPORT TO BE TELEPHONED BY THE RADIOLOGY DEPARTMENT. FINDINGS WERE INSTRUCTED TO BE CALLED TO THE CLINICAL SERVICE ON 02/24/2025 AT 4:[address] scans at this facility use dose modulation, iterative reconstruction, and/or weight based dosing when appropriate to reduce radiation dose to as low as reasonably achievable. Finalized by Chau Nicole MD on 02/24/2025 4:[address] angiogram chest Order: [id number] Status: Final result Next appt: 02/28/2025 at 10:00 AM in Radiology ([facility]) Test Result Released: No 0 Result Notes Findings Acuity Critical Details Reading Physician Reading Date Result Priority Chau Nicole MD [phone] 02/25/2025 STAT Narrative & Impression CLINICAL INFORMATION: DVT's TECHNIQUE: CT CTA CHEST CTA of the chest was obtained post intravenous administration of contrast. Post processed three-dimensional maximum intensity projection imaging was acquired and evaluated. There are moderate right-sided pulmonary emboli. No appreciable right heart strain. Right lower lobe infiltrate or atelectasis appreciated. There are bilateral pulmonary nodules appreciated most suggestive of metastasis, as previous described. Limited images of the upper abdomen again show free intraperitoneal fluid. Refer to previously dictated CT abdomen. No obvious mediastinal lymphadenopathy. Coronary arterial atherosclerotic calcification noted. Osseous structures appear grossly intact. IMPRESSION: Moderate right sided pulmonary emboli without evidence of right heart strain. Right lower lobe infiltrate or atelectasis. Numerous pulmonary nodules, likely metastasis. I personally called these findings to nurse Muhammad of the clinical service at time of dictation. All CT scans at this facility use dose modulation, iterative reconstruction, and/or weight based dosing when appropriate to reduce radiation dose to as low as reasonably achievable. Finalized by Chau Nicole MD on 02/25/2025 7:09 PM Exam Ended: 02/25/25 18:57 EDT Assessment and Plan Impression: 69 yof -Right adnexal pelvic mass with ascites -Lung nodules, possible metastatic disease -Right renal mass concerning for RCC -Reported intermittent gross hematuria since being on Heparin Follow up Plan: -To IR tomorrow for paracentesis and soft tissue biopsy -Monitor right renal mass for now, will arrange outpatient follow up -Follow up pathology - Discuss with Dr. Noble motion picture printer today OK Fernandez 02/27/25 1242 Attending Attestation: I personally performed the face to face diagnostic evaluation on this patient. I have reviewed the advanced practice practitioner's history, exam, and MDM and agree with the assessment and plan as written. * Dominga Calderon, STUDENT TRUCK DRIVER-ASSISTANT DIRECTOR OF [employer] - 02/26/2025 1:37 PM EDTAssociated Order(s): IP CONSULT TO PULMONOLOGY Images from the original note were not included. Pulmonary Medicine and Critical Care Consult Patient - Caren Suarez - 1955 Date of Admission - 02/25/2025 5:24 PM Date of evaluation - 02/26/2025 Hospital Day - 1 Consulting - Riya Diego MD Reason for Consult Pulmonary nodules, Pulmonary emboli Assessment/recommendations: Acute moderate right-sided pulmonary emboli/acute DVT right femoropopliteal, tibioperoneal, deep calf, left deep calf muscle Heparin drip Echocardiogram pending completion Right lower lobe infiltrate/Pulmonary nodules, suspected metastasis/previous smoker, quit 12 years ago, 42 pack year history Outpatient PFTs Multiple bilateral small pulmonary nodules Oncology consulted Infectious disease following, holding off on antibiotics at this time Ovarian mass/renal mass Gynecologic/oncology consulted Medical oncology consulted DVT prophylaxis with heparin infusion PUD prophylaxis with PPI HPI Caren Suarez is 69 y.o., female, admitted because of abnormal test results, acute DVT and PE. Patient has been feeling short of breath for about 1 month. She had followed up with her primary care provider was provided a prescription for steroids and antibiotics with no improvement in symptoms. She completed a CTA of her chest this showed acute PE. No significant past medical history onfile. She has a history of smoking, quit 12 years ago, 40 pack-year history of smoking. Currently patient is ambulating from the bathroom independently in the room. She is on room air. She denies cough, chest pain. She continues to feel short of breath. PMHx PMH: Past Medical History: Diagnosis Date Deep vein thrombosis ([facility]) No past surgical history on file. Home medicines: No medications prior to admission. Allergies Allergies Allergen Reactions Penicillin Social History Social History Socioeconomic History Marital status: Single Spouse name: Not on file Number of children: Not on file Years of education: Not on file Highest education level: Not on file Occupational History Not on file Tobacco Use Smoking status: Former Types: Cigarettes Smokeless tobacco: Never Substance and Sexual Activity Alcohol use: Never Drug use: Never Sexual activity: Not on file Other Topics Concern Not on file Social History Narrative Not on file Social Drivers of Health Financial Resource Strain: Not on file Food Insecurity: No Food Insecurity (02/25/2025) Hunger Screening Food Insecurity - Worry: Never True Food Insecurity - Inability: Never True Transportation Needs: No Transportation Needs (02/25/2025) PRAPARE - Transportation Lack of Transportation (Medical): No Lack of Transportation (Non-Medical): No Physical Activity: Not on file Stress: Not on file Social Connections: Not on file Interpersonal Safety: Not At Risk (02/25/2025) Humiliation, Afraid, Rape, and Kick questionnaire Fear of Current or Ex-Partner: No Emotionally Abused: No Physically Abused: No Sexually Abused: No Housing Instability: Low Risk (02/25/2025) Housing Instability Housing Instability: No Family History Family History Problem Relation Age of Onset Breast cancer Neg Hx ROS - 11 systems General Denies any fever or chills HEENT Denies any diplopia, tinnitus or vertigo Resp admits shortness of breath Cardiac Denies any chest pain, palpitations, claudication or edema GI Denies any melena, hematochezia, hematemesis or pyrosis Denies any frequency, urgency, hesitancy or incontinence Heme Denies bruising or bleeding easily Endocrine Denies any history of diabetes or thyroid disease Neuro Denies any focal motor or sensory deficits Psychiatric Denies anxiety, depression, suicidal ideation Skin Denies rashes, itching, open sores Vitals height is 157.5 cm (5' 2.01 ) and weight is 74.8 kg (164 lb 14.5 oz). Her oral temperature is 36.7 ??C (98.1 ??F). Her blood pressure is 139/64 and her pulse is 83. Her respiration is 16 and oxygen saturation is 94%. Body mass index is 30.15 kg/m??. I/O No intake or output data in the 24 hours ending 02/26/25 0946 Exam General Appearance Awake, alert, oriented, in no acute distress HEENT - Head is normocephalic, atraumatic. Pupil reactive to light Neck - Supple, symmetrical, trachea midline and Soft, trachea midline and straight Lungs - moderate air exchange, no wheezing or rhonchi Cardiovascular - Heart sounds are normal. Regular rhythm normal rate without murmur, gallop or rub. Abdomen - Soft, nontender, nondistended, no masses or organomegaly Neurologic - There are no focal motor or sensory deficits Skin - No bruising or bleeding Extremities - No cyanosis, clubbing or edema Labs Results from last 7 days Lab Units 02/26/25 0259 02/25/25 0713 02/24/25 1728 02/24/25 1544 WBC x10E9/L 12.5* -- 20.6* 19.7* HEMOGLOBIN g/dL 8.9* 9.1* 9.6* 9.6* HEMATOCRIT % 29.0* -- 31.6* 31.9* PLATELETS X10E9/L 231 240 287 263 Results from last 7 days Lab Units 02/26/25 0259 02/24/25 1728 02/24/25 1544 SODIUM mmol/L 133* 132* 133* POTASSIUM mmol/L 4.0 4.2 4.1 CHLORIDE mmol/L 102 99 101 CO2 mmol/L 23 21* 20* BUN mg/dL 21 19 20 CREATININE mg/dL 0.93 0.99 0.99 CALCIUM mg/dL 8.1* 8.3* 8.3* Radiology CT Scans CT chest 02/25/25 (See actual reports for details) Thank you for asking us to see this patient Case discussed with nurse and patient. Questions and concerns addressed. Electronically signed by Dominga Calderon APRN, CNP Pulmonary Critical Care and Sleep Medicine, [facility] Office: [phone] Plan of care discussed with ELLIOTT Saunders 02/26/25 1400 Cosigned by Fernanda Soliman MD at 02/26/2025 3:34 PM EDT * Mariaelena Berumen MD - 02/26/2025 12:23 PM EDTAssociated Order(s): IP CONSULT TO GYNECOLOGIC ONCOLOGY Gynecology Oncology Consultation Date of Admission: 02/25/2025 5:24 PM Chief Complaint : Shortness of Breath Reason for consult: Pelvic mass, vaginal bleeding History of Present Illness : Caren Suarez is a 69 y.o. female who is admitted under [facility] internal medicine service for Pulmonary embolism. Gynecology oncology was consulted for new pelvic mass measuring 16 x 12 x 11cm and vaginal bleeding. Patient states that she has had decreased appetite, bloating, pelvic pain and shortness of breath for the last 2 months. She went to see her primary care provider on Monday who noted abdominal distension and RLE swelling and ordered a CTAP and venous duplex ultrasound. Venous ultrasound showed DVT in RLE and CTAP showed signs of metastatic cancer so she was transferred to [facility] so that oncology services could be consulted. CTA chest here showed right sided pulmonary emboli & numerous pulmonary nodules, likely metastasis. She was started on heparin drip for her PE. Since being started on theheparin drip she has noted new vaginal bleeding. States it is dark red or brown spotting. Continuesto complain today of pelvic pain, bloating, and shortness of breath. She states that she underwent menarche at age 13. Has been on oral contraceptives most of her life.Has had one vaginal delivery. Stopped taking OCPs in her 40s and never had any vaginal bleeding since. No history of abdominal surgeries. No personal cancer history or known family history of cancer. Cancer History: - No known personal cancer history. - No known family history of cancer. Past Medical History : Past Medical History: Diagnosis Date Deep vein thrombosis (CMS-HCC) Past Surgical History: No past surgical history on file. Allergies: Allergies Allergen Reactions Penicillin Current Medications: Current Facility-Administered Medications: acetaminophen (TYLENOL) tablet 650 mg, 650 mg, oral, Q6H PRN, Neelima Ta APRN-DUYEN dextrose (GLUTOSE) 40 % gel 15 g, 15 g, oral, PRN, Neelima Ta STUDENT TRUCK DRIVER-ASSISTANT DIRECTOR [employer] dextrose 5 % (D5W) infusion, 100 mL/hr, intravenous, Continuous PRN, Neelima Ta APRN-DUYEN dextrose 50 % in water (D50W) 50% solution 25 mL, 25 mL, intravenous, PRN, Neelima Ta APRN-ASSISTANT DIRECTOR [employer] glucagon HCL injection 1 mg, 1 mg, intramuscular, PRN, Neelima Ta STUDENT TRUCK DRIVER-ASSISTANT DIRECTOR [employer] heparin (porcine) injection 5,000 Units, 5,000 Units, intravenous, PRN, Atria ChauMELISSA marlowN-ASSISTANT DIRECTOR OF [employer], 5,000 Units at 02/26/25 0502 heparin infusion 33732 units/500 mL in 0.45% NaCl (50 units/mL premix), 300- 3,500 Units/hr, intravenous, Continuous, Neelima Ta APRN-DUYEN, Last Rate: 23 mL/hr at 02/26/25 1319, 1,150 Units/hr at02/26/25 1319 magnesium sulfate IVPB 2000 mg/50 mL in iso-osmotic water (40 mg/mL premix), 2,000 mg, intravenous,PRN, Neelima Serge Ta STUDENT TRUCK DRIVER-ASSISTANT DIRECTOR [employer] magnesium sulfate IVPB 4000 mg/100 mL in iso-osmotic water (40 mg/mL premix), 4,000 mg, intravenous, PRN, Neelima Ta STUDENT TRUCK DRIVER-ASSISTANT DIRECTOR [employer] ondansetron (PF) (ZOFRAN) injection 4 mg, 4 mg, intravenous, Q4H PRN, Neelima Ta STUDENT TRUCK DRIVER-ASSISTANT DIRECTOR [employer] pantoprazole (PROTONIX) EC tablet 40 mg, 40 mg, oral, QAM AC, Neelima R Keyon, STUDENT TRUCK DRIVER-ASSISTANT DIRECTOR [employer], 40 mg at 02/26/25 0528 potassium chloride (K-TAB,KLOR-CON) CR tablet 30-50 mEq, 30-50 mEq, oral, PRN OR potassium chloride (KAYCIEL) 20 mEq/15 mL solution 30-50 mEq, 30-50 mEq, oral, PRN OR potassium chloride IVPB 10 mEq/100 mL in water (0.1 mEq/mL premix), 10 mEq, intravenous, PRN, Neelima R Keyon, STUDENT TRUCK DRIVER-ASSISTANT DIRECTOR [employer] sennosides-docusate sodium (SENOKOT-S) 8.6-50 mg 1 tablet, 1 tablet, oral, Q12H PRN, Neelima R Keyon, STUDENT TRUCK DRIVER-ASSISTANT DIRECTOR [employer] sodium chloride 0.9 % flush 10 mL, 10 mL, intravenous, PRN, Deena Branch MD, 10 mL at 02/25/25 1857 sodium chloride 0.9 % flush 3 mL, 3 mL, intravenous, PRN, Neelima R Ta, STUDENT TRUCK DRIVER-ASSISTANT DIRECT[employer] sodium chloride 0.9 % flush 3 mL, 3 mL, intravenous, Q12H JOSE, Neelima R Keyon, STUDENT TRUCK DRIVER-ASSISTANT DIRECTOR [employer], 3 mL at 02/25/25 2130 sodium chloride 0.9 % flush bag, 25 mL, intravenous, PRN, Neelima R Ta, STUDENT TRUCK DRIVER-ASSISTANT DIRECTOR [employer] sodium chloride 0.9 % infusion, 20 mL/hr, intravenous, Continuous PRN, Neelima R Keyon, STUDENT TRUCK DRIVER-ASSISTANT DIRECTOR [employer] Social History: Social History Socioeconomic History Marital status: Single Spouse name: Not on file Number of children: Not on file Years of education: Not on file Highest education level: Not on file Occupational History Not on file Tobacco Use Smoking status: Former Types: Cigarettes Smokeless tobacco: Never Substance and Sexual Activity Alcohol use: Never Drug use: Never Sexual activity: Not on file Other Topics Concern Not on file Social History Narrative Not on file Social Drivers of Health Financial Resource Strain: Not on file Food Insecurity: No Food Insecurity (02/25/2025) Hunger Screening Food Insecurity - Worry: Never True Food Insecurity - Inability: Never True Transportation Needs: No Transportation Needs (02/25/2025) PRAPARE - Transportation Lack of Transportation (Medical): No Lack of Transportation (Non-Medical): No Physical Activity: Not on file Stress: Not on file Social Connections: Not on file Interpersonal Safety: Not At Risk (02/25/2025) Humiliation, Afraid, Rape, and Kick questionnaire Fear of Current or Ex-Partner: No Emotionally Abused: No Physically Abused: No Sexually Abused: No Housing Instability: Low Risk (02/25/2025) Housing Instability Housing Instability: No Family History: Family History Problem Relation Age of Onset Breast cancer Neg Hx Review of Systems: All other systems reviewed and are negative. Physical Exam: Vital Signs: Temp: [36.7 ??C (98.1 ??F)-36.9 ??C (98.5 ??F)] 36.8 ??C (98.2 ??F) Pulse: [82-102] 97 Resp: [16-18] 16 BP: (124-155)/(59-88) 153/64 SpO2: [91 %-98 %] 95 % O2 Device: None (Room air) Admission Weight: Weight: 74.8 kg (164 lb 14.5 oz) General Appearance: Healthy, alert, active, cooperative, and in no distress Head: Normocephalic, without obvious abnormality, atraumatic Eyes: conjunctivae/corneas clear. PERRL, EOM's intact. Lungs: Upper lung verdin clear. R lung base with inspiratory crackles. Heart: regular rate and rhythm, S1, S2 normal, no murmur, click, rub or gallop Abdomen: soft, moderately distended, positive fluid wave. Moderate tenderness to RLQ. Pelvic: Normal female external genitalia, vaginal vault with 5cc of dark red blood, pale vaginal mucosa. Cervix appeared normal without lesions or friability. Extremities: RLE with 2+ pitting edema up to mid calf. No erythema. Tender to palpation. LLE with trace edema. Skin: Skin color, texture, turgor normal. No rashes or lesions Neurologic: Grossly normal Laboratory data: I have reviewed the following labs: Recent Results (from the past 72 hours) Comprehensive metabolic panel Collection Time: 02/24/25 3:44 PM Result Value Ref Range SODIUM 133 (L) 134 - 146 mmol/L POTASSIUM 4.1 3.5 - 5.0 mmol/L CHLORIDE 101 98 - 109 mmol/L CARBON DIOXIDE 20 (L) 22 - 32 mmol/L ANION GAP 12 5 - 15 mmol/L BLOOD UREA NITROGEN 20 5 - 27 mg/dL CREATININE 0.99 0.40 - 1.00 mg/dL GLUCOSE 132 (H) 65 - 99 mg/dL CALCIUM 8.3 (L) 8.5 - 10.5 mg/dL TOTAL PROTEIN 6.8 6.0 - 8.0 g/dL ALBUMIN 2.8 (L) 3.2 - 5.3 g/dL ALKALINE PHOSPHATASE 100 39 - 130 U/L AST 24 <=41 U/L ALT 15 <=31 U/L BILIRUBIN,TOTAL 1.2 0.3 - 1.2 mg/dL EGFR Non-Race Dependent 62 >=60 ml/min/1.73sq.m CBC auto differential Collection Time: 02/24/25 3:44 PM Result Value Ref Range WBC 19.7 (H) 4 - 11 x10E9/L RBC Count 4.61 3.8 - 5.2 X10E12/L Hemoglobin 9.6 (L) 11.7 - 15.5 g/dL Hematocrit 31.9 (L) 35 - 47 % MCV 69 (L) 80 - 100 fL MCH 20.9 (L) 27 - 34 pg MCHC 30.3 (L) 32 - 36 g/dL RDW 18.5 (H) 11.5 - 15 % Platelet Count 263 150 - 450 X10E9/L MPV 7.4 7 - 12 fL Neutrophils % 94.0 % Lymphocytes % 2.2 % Monocytes % 3.5 % Eosinophils % 0.0 % Basophils % 0.3 % Neutrophils Absolute (A) 18.5 (H) 1.5 - 6.6 10*3/uL Lymphocytes Absolute 0.4 (L) 1.0 - 3.5 10*3/uL Monocytes Absolute 0.7 0.0 - 0.9 10*3/uL Eosinophils Absolute 0.0 0.0 - 0.4 10*3/uL Basophils Absolute 0.1 0.0 - 0.2 10*3/uL Hypochromia 2+ Differential Type AUTOMATED DIFFERENTIAL CBC auto differential Collection Time: 02/24/25 5:28 PM Result Value Ref Range WBC 20.6 (H) 4 - 11 x10E9/L RBC Count 4.57 3.8 - 5.2 X10E12/L Hemoglobin 9.6 (L) 11.7 - 15.5 g/dL Hematocrit 31.6 (L) 35 - 47 % MCV 69 (L) 80 - 100 fL MCH 21.0 (L) 27 - 34 pg MCHC 30.4 (L) 32 - 36 g/dL RDW 18.6 (H) 11.5 - 15 % Platelet Count 287 150 - 450 X10E9/L MPV 7.6 7 - 12 fL Neutrophils % 94.2 % Lymphocytes % 2.1 % Monocytes % 3.1 % Eosinophils % 0.0 % Basophils % 0.6 % Neutrophils Absolute (A) 19.4 (H) 1.5 - 6.6 10*3/uL Lymphocytes Absolute 0.4 (L) 1.0 - 3.5 10*3/uL Monocytes Absolute 0.6 0.0 - 0.9 10*3/uL Eosinophils Absolute 0.0 0.0 - 0.4 10*3/uL Basophils Absolute 0.1 0.0 - 0.2 10*3/uL Hypochromia 2+ Differential Type AUTOMATED DIFFERENTIAL B-type natriuretic peptide Collection Time: 02/24/25 5:28 PM Result Value Ref Range BNP 61 <=100 pg/mL Comprehensive metabolic panel Collection Time: 02/24/25 5:28 PM Result Value Ref Range SODIUM 132 (L) 134 - 146 mmol/L POTASSIUM 4.2 3.5 - 5.0 mmol/L CHLORIDE 99 98 - 109 mmol/L CARBON DIOXIDE 21 (L) 22 - 32 mmol/L ANION GAP 12 5 - 15 mmol/L BLOOD UREA NITROGEN 19 5 - 27 mg/dL CREATININE 0.99 0.40 - 1.00 mg/dL GLUCOSE 132 (H) 65 - 99 mg/dL CALCIUM 8.3 (L) 8.5 - 10.5 mg/dL TOTAL PROTEIN 7.0 6.0 - 8.0 g/dL ALBUMIN 2.8 (L) 3.2 - 5.3 g/dL ALKALINE PHOSPHATASE 105 39 - 130 U/L AST 21 <=41 U/L ALT 15 <=31 U/L BILIRUBIN,TOTAL 1.3 (H) 0.3 - 1.2 mg/dL EGFR Non-Race Dependent 62 >=60 ml/min/1.73sq.m D-Dimer Collection Time: 02/24/25 5:28 PM Result Value Ref Range D DIMER 7,187 (H) 1 - 255 ug/mL Magnesium Collection Time: 02/24/25 5:28 PM Result Value Ref Range MAGNESIUM 2.4 1.8 - 2.6 mg/dL Troponin I, High Sensitivity Collection Time: 02/24/25 5:28 PM Narrative The following orders were created for panel order Troponin I, High Sensitivity. Procedure Abnormality Status --------- ------ Troponin I, High Sensiti...[[id number]] Normal Final result Troponin I, High Sensiti...[[id number]] Normal Final result Please view results for these tests on the individual orders. Protime & INR Collection Time: 02/24/25 5:28 PM Result Value Ref Range PROTIME 13.4 (H) 9.8 - 13.2 sec INR 1.2 0.9 - 1.2 APTT Collection Time: 02/24/25 5:28 PM Result Value Ref Range APTT 23 (L) 26 - 37 sec Lactate w/ Reflex Collection Time: 02/24/25 5:28 PM Result Value Ref Range LACTATE W/REFLEX 1.5 0.4 - 2.0 mmol/L Narrative Result did not trigger repeat Lactate, re-order if needed. Troponin I, High Sensitivity 0 Hour Collection Time: 02/24/25 5:28 PM Result Value Ref Range TROPONIN I, HIGH SENSITIVITY 7 <16 ng/L Troponin I, High Sensitivity 1 Hour Collection Time: 02/24/25 6:47 PM Result Value Ref Range TROPONIN I, HIGH SENSITIVITY 6 <16 ng/L Anti XA unfractionated heparin Collection Time: 02/24/25 11:43 PM Result Value Ref Range ANTI XA UFH 1.22 (HH) 0.30 - 0.70 IU/mL Anti XA unfractionated heparin Collection Time: 02/25/25 7:12 AM Result Value Ref Range ANTI XA UFH 0.92 (HH) 0.30 - 0.70 IU/mL Extra Tubes Collection Time: 02/25/25 7:12 AM Narrative The following orders were created for panel order Extra Tubes. Procedure Abnormality Status --------- ------ [facility] TOP[[id number]] Final result Please view results for these tests on the individual orders. PST TOP Collection Time: 02/25/25 7:12 AM Result Value Ref Range Extra Tube Auto Resulted Hemoglobin Collection Time: 02/25/25 7:13 AM Result Value Ref Range Hemoglobin 9.1 (L) 11.7 - 15.5 g/dL Platelet count Collection Time: 02/25/25 7:13 AM Result Value Ref Range Platelet Count 240 150 - 450 X10E9/L MPV 7.2 7 - 12 fL Anti XA unfractionated heparin Collection Time: 02/25/25 1:58 PM Result Value Ref Range ANTI XA UFH 0.71 (H) 0.30 - 0.70 IU/mL Urinalysis Collection Time: 02/25/25 8:26 PM Specimen: Urine Result Value Ref Range COLOR Tripp (A) Yellow TURBIDITY Clear Clear SPECIFIC GRAVITY 1.015 1.003 - 1.035 NITRITE Negative Negative PH,URINE 6.0 5.0 - 8.5 LEUKOCYTE ESTERASE Small (A) Negative PROTEIN 50 mg/dL (A) Negative KETONES (URINE) Negative Negative UROBILINOGEN 2 eu/dL (A) <1.1 eu/dL BILIRUBIN (URINE) Negative Negative BLOOD/HGB Large (A) Negative MUCOUS Present (A) None R.B.CELLS 68 (H) 0 - 5 SQUAMOUS EPITHELIUM 10 (H) 0 - 5 W.B.CELLS 19 (H) 0 - 5 GLUCOSE (URINE) Negative Negative Anti XA unfractionated heparin Collection Time: 02/25/25 8:49 PM Result Value Ref Range ANTI XA UFH 0.48 0.30 - 0.70 IU/mL Anti XA unfractionated heparin Collection Time: 02/26/25 2:59 AM Result Value Ref Range ANTI XA UFH 0.15 (L) 0.30 - 0.70 IU/mL Basic Metabolic Panel Collection Time: 02/26/25 2:59 AM Result Value Ref Range SODIUM 133 (L) 134 - 146 mmol/L POTASSIUM 4.0 3.5 - 5.0 mmol/L CHLORIDE 102 98 - 109 mmol/L CARBON DIOXIDE 23 22 - 32 mmol/L ANION GAP 8 5 - 15 mmol/L BLOOD UREA NITROGEN 21 5 - 27 mg/dL CREATININE 0.93 0.40 - 1.00 mg/dL GLUCOSE 93 65 - 99 mg/dL CALCIUM 8.1 (L) 8.5 - 10.5 mg/dL EGFR Non-Race Dependent 67 >=60 ml/min/1.73sq.m Magnesium Collection Time: 02/26/25 2:59 AM Result Value Ref Range MAGNESIUM 2.4 1.8 - 2.6 mg/dL CBC without diff Collection Time: 02/26/25 2:59 AM Result Value Ref Range WBC 12.5 (H) 4 - 11 x10E9/L RBC Count 4.18 3.8 - 5.2 X10E12/L Hemoglobin 8.9 (L) 11.7 - 15.5 g/dL Hematocrit 29.0 (L) 35 - 47 % MCV 70 (L) 80 - 100 fL MCH 21.4 (L) 27 - 34 pg MCHC 30.7 (L) 32 - 36 g/dL RDW 18.7 (H) 11.5 - 15 % Platelet Count 231 150 - 450 X10E9/L MPV 7.4 7 - 12 fL Iron and TIBC Collection Time: 02/26/25 2:59 AM Result Value Ref Range IRON 12 (L) 50 - 170 ug/dL TRANSFERRIN 229 168 - 336 mg/dL IRON BINDING 321 250 - 425 ug/dL IRON SATURATION 4 (L) 15 - 50 % SATURATION Ferritin Collection Time: 02/26/25 2:59 AM Result Value Ref Range FERRITIN 78 11 - 307 ng/mL Folate Collection Time: 02/26/25 2:59 AM Result Value Ref Range FOLIC ACID 3.3 (L) >5.8 ng/mL Vitamin B12 Collection Time: 02/26/25 2:59 AM Result Value Ref Range VITAMIN B12 110 (L) 180 - 914 pg/mL LDH Collection Time: 02/26/25 2:59 AM Result Value Ref Range LDH 232 100 - 235 U/L CA 125 Collection Time: 02/26/25 2:59 AM Result Value Ref Range CA 125 1,528 (H) <=35 U/mL Cancer antigen 19-9 Collection Time: 02/26/25 2:59 AM Result Value Ref Range CA 19 9 22.5 <=35.0 U/mL Haptoglobin Collection Time: 02/26/25 11:14 AM Result Value Ref Range HAPTOGLOBIN 381 (H) 32 - 228 mg/dL CEA Collection Time: 02/26/25 11:14 AM Result Value Ref Range CEA 24.6 (H) <=3.0 ng/mL Anti XA unfractionated heparin Collection Time: 02/26/25 12:05 PM Result Value Ref Range ANTI XA UFH 1.01 (HH) 0.30 - 0.70 IU/mL No results found for: HGBA1C No results found for: PREALBUMIN Lab Results Component Value Date CA125 1,528 (H) 02/26/2025 No components found for: HE4 Lab Results Component Value Date CEA 24.6 (H) 02/26/2025 No components found for: CA19-9 Imaging Studies: I have reviewed the following imaging: CT ABDOMEN AND PELVIS W CONT (02/24/25) CT images of the abdomen and pelvis are obtained. Intravenous contrast was administered. Images arereformatted in the sagittal and coronal planes. There are no prior exams available for comparison. There is diffuse free intraperitoneal fluid. Large partially solid and partially cystic lesion noted within the right adnexa measuring 16 cm x 12 cm x 11 cm. Ovarian carcinoma is the diagnosis of exclusion. Regions of soft tissue nodularity noted anterior lower abdomen. There are small bilateral lower lobe pulmonary nodules. Right basilar atelectasis also appreciated. Pancreas unremarkable. Adrenal symmetric. Large dependently layering gallstone. Small bowel is nondistended without evidence of obstruction. Mild thoracolumbar degenerative changes. No acute osseous abnormalities. Prominent nodes appreciated at the diya hepatis. IMPRESSION: Large partially solid partially cystic lesion within the right adnexa. Ovarian carcinoma is diagnosis of exclusion. 2.5 cm solid right renal lesion. Renal cell carcinoma is diagnosis of exclusion. Diffuse free intraperitoneal fluid. Small bilateral noncalcified lower lobe pulmonary nodules and lower anterior abdominal soft tissue nodules, likely metastasis. Prominent nodes in diya hepatis. CT CTA CHEST (02/25/25) There are moderate right-sided pulmonary emboli. No appreciable right heart strain. Right lower lobe infiltrate or atelectasis appreciated. There are bilateral pulmonary nodules appreciated most suggestive of metastasis, as previous described. Limited images of the upper abdomen again show free intraperitoneal fluid. Refer to previously dictated CT abdomen. No obvious mediastinal lymphadenopathy. Coronary arterial atherosclerotic calcification noted. Osseous structures appear grossly intact. IMPRESSION: Moderate right sided pulmonary emboli without evidence of right heart strain. Right lower lobe infiltrate or atelectasis. Numerous pulmonary nodules, likely metastasis. Problem List: Principal Problem: DVT (deep venous thrombosis) ([facility]) Assessment/Plan: Caren Suarez is a 69 y.o. female admitted with pulmonary embolism. Found to have new partially solid/partially cystic lesion in R adnexa on imaging measuring [id number] and evidence of metastatic disease including peritoneal and pulmonary metastasis. New pelvic mass, c/f metastatic disease New vaginal bleeding on heparin - CTAP (02/24): There is diffuse free intraperitoneal fluid. Large partially solid and partially cystic lesion noted within the right adnexa measuring 16 cm x 12 cm x 11 cm. Regions of soft tissue nodularity noted anterior lower abdomen. 2.5 cm solid right renal lesion. - CTA chest (02/25): Moderate right sided pulmonary emboli without evidence of right heart strain. Right lower lobe infiltrate or atelectasis. Numerous pulmonary nodules, likely metastasis. - CA-125: 1,528 - CEA: 24.6 - Other tumor markers ordered: CA 19-9, HE4 - Pelvic exam significant for 5cc of dark red blood in vaginal vault. No obvious masses or lesion in vagina or on cervix - Pap smear collected - TVUS ordered - IR consulted for drainage of ascites and biopsy of soft tissue nodules noted in anterior lower abdomen. - Will coordinate with IR and primary team to schedule this. Patient on heparin drip for pulmonary embolism. - WBC 31.6 > 29.0 (02/26) - leukocytosis likely secondary to malignancy - Hgb 9.6 > 9.1 > 8.9 (02/26) - Urinalysis (02/25): LE+, large blood, 50mg/dL protein, WBCs, RBCs, Squamous cells - urine culture pending 2. Pulmonary Embolism - On heparin drip - Management per primary team Mariaelena Berumen MD Vacuum Cleaner Repairer Resident, PGY-1 If questions or concerns, please contact via [employer] pager at [phone]. Cosigned by Jose Carlos Day MD at 02/26/2025 2:52 PM EDT Associated attestation - Jose Carlos Day MD - 02/26/2025 2:52 PM EDT Attending Attestation: I saw the patient. I participated and was physically present during the critical/fuentes portions of the service. I was directly involved in the management and treatment plan of the patient. I reviewed the resident's note. Additional Notes/Findings: Suspected ovarian cancer, will need IR biopsy and paracentesis for diagnosis. Treatment planning tofollow. * Bob De La Cruz DO - 02/26/2025 12:17 PM EDTAssociated Order(s): IP CONSULT TO INFECTIOUS DISEASES Images from the original note were not included. Infectious Diseases Academic Team - Initial Consult Note - Please contact us via [employer]. After hours, call [phone] Please DO call us with positive blood cultures. 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 malignancy WBC: 20.[address] < 12[address]5 CT abdomen pelvis revealed large ovarian partially cystic lesion Pyuria likely secondary to renal malignancy CT abdomen pelvis revealed 2.5 cm solid renal lesion No urinary symptoms Small leuk esterase Neg nitrites Urine cultures pending Pos RBC and WBC On heparin therapy for PE Right lower lobe infiltrate in setting of acute pulmonary embolism Less likely pneumonia No fevers PE/DVT On heparin therapy, management per primary team Recommendations: Discontinue ceftriaxone at this time, UTI unlikely Continue to monitor for signs of infection Provider Statement - Med Student: I was physically present with the participating medical student. I personally verified the medical student???s documentation in the medical record and performed a physical exam and medical decision making for the patient. I made appropriate changes or clarifications to the note. Agree with above patient with new found RLE DVT and right sided PE. She had intermittent nonproducitve cough for which she was given antibiotics, inhaler and steroids when she did not improve with initial regimen was given z-dianna and imaging was ordered. Presented to [facility] with leukocytosis, most likely related to PE and DVT. In the course ofher studies, a CT abd/pelvis was done as wellWhich showed he large partially solid partially cysticlesion within the right adnexa. This measured 16 x 12 x 11 cm. There was concern for ovarian carcinoma CA 125 was ordered elevated at 1528 she also had a elevated CEA at 24.6. Notably patient had a UA done which had small leuk esterase but significantly elevated blood she noted hematuria after starting on heparin infusion for her PE. She also had significantly elevated number of squamous epithelia which is likely to affect the accuracy of the culture. She has no dysuria at this time no flank tenderness or flank pain. Can continue to monitor off antibiotics concern for UTI and community-acquired pneumonia are low atthis time. We will continue to monitor her off antibiotics. Thank you for allowing us to participate in the care of this patient. Bob De La Cruz DO [facility] Infectious Diseases Pager: From 7AM-7PM: From 7AM-7PM: Please use [employer] for communication. From 7PM-7AM: Please call for our answering service. Subjective Reason for consultation / Chief complaint: Leukocytosis History of Present Illness Caren Suarez is a 69 y.o.-year-old female who was initially admitted on 02/25/2025. She initially had cold-like symptoms with a cough on January 06 for which she visited her PCP. She states that her symptoms resolved over the following week. She then saw urgent care on February 07 for similar symptoms including shortness of breath and was given steroids, antibiotics, and an inhaler. This is not relieve her symptoms and followed up with her PCP who prescribed her a z-pack and send her for further imaging. It was around this time, two weeks before presentation today, that she began to notice somelower extremity swelling, right worse than left, as well as some lower abdominal pain. She had a lower extremity ultrasound consistent with DVT and a CT abd pelvis with findings in the lungs, kidneys, and ovaries. She was subsequently sent to the [place] ED and an ordered CT angio chest revealed findings consistent with a right PE. Following this, she was started on heparin and sent to [facility] for fur ther oncology workup. She currently has some shortness of breath and an occasional cough with sputum production. She is unsure of the color of her sputum. She denies any fevers, headaches, or runny nose. She does report some abdominal pain at this time, more localized to the lower quadrants. She also feels distended. She denies any changes in urination frequency or any pain with urination. She also denies any changes to her bowel movements including constipation and diarrhea. She has no past medical history and states that she does not get routinely sick. Past Medical History: Past Medical History: Diagnosis Date Deep vein thrombosis ([facility]) Past Surgical History: No past surgical history on file. Medications: pantoprazole, 40 mg, oral, QAM AC sodium chloride, 3 mL, intravenous, Q12H JOSE Social History: Social History Socioeconomic History Marital status: Single Tobacco Use Smoking status: Former Types: Cigarettes Smokeless tobacco: Never Substance and Sexual Activity Alcohol use: Never Drug use: Never Social Drivers of Health Food Insecurity: No Food Insecurity (02/25/2025) Hunger Screening Food Insecurity - Worry: Never True Food Insecurity - Inability: Never True Transportation Needs: No Transportation Needs (02/25/2025) PRAPARE - Transportation Lack of Transportation (Medical): No Lack of Transportation (Non-Medical): No Interpersonal Safety: Not At Risk (02/25/2025) Humiliation, Afraid, Rape, and Kick questionnaire Fear of Current or Ex-Partner: No Emotionally Abused: No Physically Abused: No Sexually Abused: No Housing Instability: Low Risk (02/25/2025) Housing Instability Housing Instability: No Family History: Family History Problem Relation Age of Onset Breast cancer Neg Hx Immunization History: Immunization History Administered Date(s) Administered COVID-19, mRNA, LNP-S, PF, 30mcg/0.3mL Dose 09/21/2020, 10/13/2020, 05/30/2021 Covid-19, Mrna, Lnp-s, Bivalent, Pf, 30mcg/0.3 ml 04/01/2022 Covid-19, Mrna, Lnp-s, Pf,nikia-sucrose,30 Mcg/0.3ml Seasonal 04/01/2024 Covid-19,mrna, Lnp-s, Pf, 50mcg/0.5ml 12+ Seasonal 04/25/2023 Influenza (IM) Preservative Free 04/02/2018 Influenza Vaccine, Quadrivalent, Adjuvanted 04/07/2021, 04/01/2022 Influenza, Injectable, Quadrivalent 03/30/2017 Influenza, Injectable, quadrivalent (PF) 03/19/2020 Influenza, Trivalent, Adjuvanted 04/01/2024 Influenza, Unspecified 04/01/2018, 04/01/2019 Pneumococcal Conjugate 20-valent 04/01/2022 Pneumococcal Polysaccharide 04/07/2021 Tdap 04/03/2019 Zoster Vaccine Recombinant 03/21/2020, 05/21/2020 Allergies: Allergies Allergen Reactions Penicillin Review of Systems: 10 systems reviewed and negative except as described in HPI General: No fevers or chills. Eyes: No double vision or blurry vision. ENT: No sore throat or runny nose. Cardiovascular: No chest pain or palpitations. Lung: Shortness of breath and cough. Abdomen: No nausea, vomiting, or diarrhea. Abdominal pain. Genitourinary: No increased urinary frequency, or dysuria. Musculoskeletal: No muscle aches or pains. Hematologic: No bleeding or bruising. Neurologic: No headache, weakness, numbness, or tingling. Objective Physical Examination: BP 153/64 Pulse 97 Temp 36.8 ??C (98.2 ??F) (Oral) Resp 16 Ht 157.5 cm (5' 2.01 ) Wt 74.8kg (164 lb 14.5 oz) SpO2 95% BMI 30.15 kg/m?? Temperature Range: Temp: 36.8 ??C (98.2 ??F) Temp Av.8 ??C (98.3 ??F) Min: 36.7 ??C (98.1 ??F)Max: 36.9 ??C (98.5 ??F) General Appearance: Awake, alert, and in no apparent distress Head: Normocephalic, without obvious abnormality, atraumatic Eyes: Pupils equal, round, reactive, to light and accommodation; extraocular movements intact; sclera anicteric; conjunctivae pink ENT: Oropharynx clear, without erythema, exudate, or thrush. Neck: Supple, without lymphadenopathy. Pulmonary/Chest: Right lower lobe crackles Cardiovascular: Regular rate and rhythm without murmurs, rubs, or gallops. Abdomen: Soft, nontender. Distended. Extremities: No cyanosis, clubbing. Bilateral lower led edema. Right 3+, Left 1+ Neurologic: Moves extremities. Sensation grossly intact Skin: No rash or lesions. Labs: Results from last 7 days Lab Units 02/26/25 0259 02/25/25 0713 02/24/25 1728 02/24/25 1544 WBC x10E9/L 12.5* -- 20.6* 19.7* HEMOGLOBIN g/dL 8.9* 9.1* 9.6* 9.6* HEMATOCRIT % 29.0* -- 31.6* 31.9* MCV fL 70* -- 69* 69* PLATELETS X10E9/L 231 240 287 263 NEUTROS ABS 10*3/uL -- -- 19.4* 18.5* LYMPHS ABS AUTO 10*3/uL -- -- 0.4* 0.4* MONOS ABS AUTO 10*3/uL -- -- 0.6 0.7 EOS ABS AUTO 10*3/uL -- -- 0.0 0.0 BASOS ABS AUTO 10*3/uL -- -- 0.1 0.1 Results from last 7 days Lab Units 02/26/25 0259 02/24/25 1728 02/24/25 1544 SODIUM mmol/L 133* 132* 133* POTASSIUM mmol/L 4.0 4.2 4.1 CHLORIDE mmol/L 102 99 101 CO2 mmol/L 23 21* 20* BUN mg/dL 21 19 20 CREATININE mg/dL 0.93 0.99 0.99 GLUCOSE mg/dL 93 132* 132* CALCIUM mg/dL 8.1* 8.3* 8.3* ALK PHOS U/L -- 105 100 ALT U/L -- 15 15 AST U/L -- 21 24 Results from last 7 days Lab Units 02/25/252025 COLOR UA Tripp* TURBIDITY Clear SPECIFIC GRAVITY, URINE 1.015 NITRITE UA Negative PH URINE 6.0 LEUKOCYTE ESTERASE Small* PROTEIN 50 mg/dL* KETONES (URINE) Negative UROBILINOGEN 2 eu/dL* BLOOD Large* R. B. CELLS 68* WBC UA 19* Imaging Studies: CT angiogram chest Result Date: 02/25/2025 CLINICAL INFORMATION: DVT's TECHNIQUE: CT CTA CHEST CTA of the chest was obtained post intravenous administration of contrast. Post processed three- dimensional maximum intensity projection imaging was acquired and evaluated. There are moderate right-sided pulmonary emboli. No appreciable right heart strain. Right lower lobe infiltrate or atelectasis appreciated. There are bilateral pulmonary nodules appreciated most suggestive of metastasis, as previous described. Limited images of the upper abdomen again show free intraperitoneal fluid. Refer to previously dictated CT abdomen. No obvious medi astinal lymphadenopathy. Coronary arterial atherosclerotic calcification noted. Osseous structures appear grossly intact. IMPRESSION: Moderate right sided pulmonary emboli without evidence of right heart strain. Right lower lobe infiltrate or atelectasis. Numerous pulmonary nodules, likely metastasis. I personally called these findings to nurse Muhammad of the clinical service at time of dictation.All CT scans at this facility use dose modulation, iterative reconstruction, and/or weight based dosing when appropriate to reduce radiation dose to as low as reasonably achievable. Finalized by Chau Nicole MD on 02/25/2025 7:09 PM Vas venous duplex lwr bilateral Result Date: 02/24/2025 Right: Dilated noncompressible distal femoral, popliteal, posterior tibial, peroneal and deep calf muscle veins with hypoechoic intraluminal content and absent spectral Doppler signals. Remaining visualized deep venous segments are compressible with spontaneous phasic spectral Doppler waveforms. Superficial veins are compressible. Left: Limited contralateral duplex evaluation completed. Dilated Non-compressible deep calf muscle veins with hypoechoic intraluminal content and absent spectral Doppler signals. Common femoral, femoral, and popliteal veins are compressible without intraluminal content. Spontaneous, common femoral, femoral and popliteal spectral Doppler signals. Evaluation of superficial veins was not performed. Conclusions: RIGHT:ACUTE femoropopliteal deep vein thrombosis (DVT).ACUTE deep tibioperoneal vein thrombosis (DVT). ACUTE deep calf muscle vein thrombosis (DVT). NO EVIDENCE of superficial vein thrombosis of the lower extremity. LEFT:Limited visualization of lower extremity venous segments.ACUTE deep calf muscle vein thrombosis (DVT). CT abdomen and pelvis with contrast Result Date: 02/24/2025 CLINICAL INFORMATION: Localized swelling, mass and lump, lower limb, right; Generalized abdominal pain; Abdominal distension; SOB (shortness of breath); Tachycardia TECHNIQUE: CT ABDOMEN AND PELVIS WCONT CT images of the abdomen and pelvis are obtained. Intravenous contrast was administered. Images are reformatted in the sagittal and coronal planes. There are no prior exams available for comparison. There is diffuse free intraperitoneal fluid. Large partially solid and partially cystic lesion noted within the right adnexa measuring 16 cm x 12 cm x 11 cm. Ovarian carcinoma is the diagnosis ofexclusion. Regions of soft tissue nodularity noted anterior lower abdomen. There are small bilateral lower lobe pulmonary nodules. Right basilar atelectasis also appreciated. Pancreas unremarkable. Adrenal symmetric. Large dependently layering gallstone. Small bowel is nondistended without evidenceof obstruction. Mild thoracolumbar degenerative changes. No acute osseous abnormalities. Prominent nodes appreciated at the diya hepatis. IMPRESSION: Large partially solid partially cystic lesion within the right adnexa. Ovarian carcinoma is diagnosis of exclusion. 2.5 cm solid right renal lesion.Renal cell carcinoma is diagnosis of exclusion. Diffuse free intraperitoneal fluid. Small bilateral noncalcified lower lobe pulmonary nodules and lower anterior abdominal soft tissue nodules, likely metastasis. Prominent nodes in diya hepatis. THIS REPORT CONTAINS A SIGNIFICANT RESULT AND/OR RECOMMENDATION, WHICH REQUIRES THE ATTENTION OF THE LICENSED CAREGIVER RESPONSIBLE FOR THIS PATIENT. THEREFORE, I SPECIFICALLY DESIGNATED THIS REPORT TO BE TELEPHONED BY THE RADIOLOGY DEPARTMENT. FINDINGS WERE INSTRUCTED TO BE CALLED TO THE CLINICAL SERVICE ON 02/24/2025 AT 4:[address] scans at this facility use dose modulation, iterative reconstruction, and/or weight based dosing when appropriate to reduce radiation dose to as low as reasonably achievable. Finalized by Chau Nicole MD on 02/24/2025 4:15 PM I have personally reviewed these studies. Cultures: Microbiology Results Procedure Component Value Units Date/Time Urine Culture Urine, Clean Catch Midstream [[id number]] Collected: 02/25/252025 Specimen: Urine, Clean Catch Midstream Updated: 02/25/252045 Our consultation addresses :complex antimicrobial therapy counseling and treatment Thank you for allowing us to participate in the care of this patient. - Otf Tay 02/26/25 1:29 PM [facility] Infectious Diseases Please contact us via [employer] documented in this encounter Nursing Notes * Justine Sanchez RN - 03/21/2025 12:10 PM EDT Report called to [facility] * Kita Ramirez RN - 03/07/2025 1:13 PM EDT After 4 lab draws for her Ptt on heparin gtt and attempted INR add-on, lab finally investigated andcame up with patient has to much heparin in her blood. The labor standards director could not get her spinner to read a ptt, but did do a XA to see if the specimen was bad or if blood had to much heparin and the XA was critically high at 4.09. Caren did have 10 mg eloquis yesterday morning. The labor standards director added hepzyme to her labs she was able to get a inr of 4.5, but again labor standards director could not definitively state that its an accurate number bc of the hepzyme. Heparin is off as of 1248. RN notified Lencho Tan, Dr London Merino, PAOlu Bergman and DENTAL CHAIRSIDE ASSISTANT Ernie Elizondo all via [employer] chat, due to all areinvolved with her care and attempting to get her to surgery quicker than later. Onc states they will order reversal when surgery has an approximate time. All Aware and agree with plan. * Lucia Self RN - 02/28/2025 2:00 PM EDT Left para complete, 1850ml ludivina ascites fluid removed and sent to lab. documented in this encounter Miscellaneous Notes * PT/OT/GALLERY MANAGER - Davian Linton PTA - 03/21/2025 11:58 AM EDT Physical Therapy Treatment Discharge Recommendations for Safe Patient Transition PT Discharge Disposition Recommendation: Post acute - moderate PT Post Acute Moderate Rehab Needs: Recommend moderate intensity rehab, Tolerate 1-2 hrs of therapy3-5 days/wk, Subacute or chronic functional impairment Current Impairments Informing Therapy Recommendation: Ambulation status/safety, Fall risk, ADL status, Endurance level 6 Clicks: Basic Mobility Turning from your back to your side while in a flat bed without using bed rails?: A lot Moving from lying on your back to sitting on side of flat bed without using bed rails?: A lot Moving to and from bed to a chair (including w/c)?: A lot Standing up from a chair using your arms (e.g. w/c or bedside chair)?: A lot To walk in hospital room?: A lot Climbing 3-5 steps with a railing?: Total Scoring 6 Clicks: Basic Mobility Raw Score: 11 CMS G Code Modifier: CL PT Treatment/Interventions: ADL retraining, Functional transfer training, UE strengthening/ROM, LE strengthening/ROM, Endurance training, Patient/family training, Equipment eval/education, Balance, Bed mobility, Gait training, Functional activities, Neuromuscular reeducation PT Frequency: 5-6days/week PT Duration: LOS Assessment Patient Assessment Therapy Problem List: Decreased ADL status, Decreased balance, Decreased endurance, Decreased high-level ADLs, Decreased mobility, Decreased safe judgement during ADL, Decreased self-care trans, Decreased UE ROM, Decreased UE strength Patient Response to Treatment: Slow progress, decreased activity tolerance Mood/Affect: Appropriate for circumstances Rehab Prognosis: Good, With continued PT status post acute discharge Visit RN Communication: Yes Medical Record Reviewed: Yes PT Type of Visit: Treatment Precautions Activity: Early mobility pass; okay to see per RN Equipment: Gait belt, wound vac 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 Other: 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 Patient requires extra time/effort with step by step cueing to complete with Max Ax1- Assistance needed for BLE management/trunk righting/scooting. Patient returned to bed at end of session- Mod Ax1 needed to lift BLEs to bed height- Poor eccentric lowering of trunk noted. Patient rolledL<>R to flatten linens underneath for comfort/pressure relief. Call light left near. RN aware Transfers Sit to Stand: Mod assist, Verbal cues, Tactile cues Stand to Sit: Min assist, Verbal cues, Tactile cues Other: Patient cued for hand placement/technique for safe sit<>stand transfers- Mod Ax1 neededto complete full stand from level bed height- Pt. completed 3-4 side steps >L to reposition toward HOB-Offered PARTS SALES REPRESENTATIVE for safety- Cues to reach back prior to sitting-Min A needed to aid in controlleddescend when sitting. Gait Other: pt. completed side steps along bed side with PARTS SALES REPRESENTATIVE to reposition toward HOB- Min A offered via[employer] Balance Sitting Balance: Static: Fair Sitting Balance: Dynamic: Fair (-) Standing Balance: Static: Fair (-) Standing Balance: Dynamic: Poor Other: Patient maintained unsupported sitting at EOB for approx. 15 minutes while completing ADLs/grooming-UE support used for stability/offloading throughout-CGA for safety as needed- SBA otherwise.Single UE support via RUE PARTS SALES REPRESENTATIVE with Min A for safety while side stepping along bedside-Pt. slow and mildly unsteady but had no LOB during session Activity Tolerance Endurance: Tolerates 30 minutes activity with rest breaks Other: Extra time/effort needed to complete all functional mobility. Pt. notes increased abdominal pain/discomfort with movement- Limiting participation. Pt. completed side steps along bedside without AD-PARTS SALES REPRESENTATIVE for safety- Limited by weakness. Plan Physical Therapy Care Plan Physical Therapy Care Plan (Active) Template: PT - Physical Therapy Problem: Activity Tolerance Dates: Start: 03/13/25 Disciplines: PT Goal: Tolerate > 30 minutes of activity WITH rest breaks Dates: Start: 03/13/25 Expected End: 04/10/25 Description: Goal Description: Patient to perform functional range / strength exercises to improve functional strength, balance and activity tolerance for improved independence and safety with mobility. Disciplines: PT Outcomes Date/Time User Outcome 03/21/25 1314 Davian Linton, LUIGI Progressing 03/20/25 1542 Davian Linton PTA Progressing 03/18/25 1721 Davian Linton PTA Progressing 03/15/25 1644 Davian Linton PTA Progressing Problem: Bed Mobility Dates: Start: 03/13/25 Disciplines: PT Goal: Patient will perform bed mobility with Minimum Assist Dates: Start: 03/13/25 Expected End: 04/10/25 Description: Goal Description: Disciplines: PT Outcomes Date/Time User Outcome 03/21/25 1314 Davian Royer, M1 ARMOR CREWMAN Progressing 03/20/25 1542 Davian Royer, M1 ARMOR CREWMAN Progressing 03/18/25 1721 Davian Royer, M1 [employer] CREWMAN Progressing 03/15/25 1644 Davian Royer, M1 [employer]OR CREWMAN Progressing Problem: Gait Dates: Start: 03/13/25 Disciplines: PT Goal: Patient will perform gait with Minimum Assist Dates: Start: 03/13/25 Expected End: 04/10/25 Description: With__RW__,__25__feet Goal Description: Disciplines: PT Problem: Sitting Balance Dates: Start: 03/13/25 Disciplines: PT Goal: Improve balance to fair Dates: Start: 03/13/25 Expected End: 04/10/25 Description: Static Dynamic Disciplines: PT Outcomes Date/Time User Outcome 03/21/25 1314 Davian Royer, M1 [employer] CRE[employer] Progressing 03/20/25 1542 Davian Royer, M1 ARMOR CREWMAN Progressing 03/18/25 1721 Davian Royer, M1 ARMOR CREWMAN Progressing 03/17/25 1641 Davian Royer, M1 ARMOR CREWMAN Progressing 03/15/25 1644 Davian Royer, M1 ARMOR CREWMAN Progressing Problem: Standing Balance Dates: Start: 03/13/25 Disciplines: PT Goal: Improve balance to fair Dates: Start: 03/13/25 Expected End: 04/10/25 Description: Improve standing balance to fair+ with UE support to minimize fall risk. Disciplines: PT Outcomes Date/Time User Outcome 03/21/25 1314 Davian Royer, M1 ARMOR CREWMAN Progressing 03/20/25 1542 Davian Royer, M1 ARMOR CREWMAN Progressing 03/18/25 1721 Davian Royer, M1 ARMOR CREWMAN Progressing 03/17/25 1641 Davian Royer, M1 ARMOR CREWMAN Progressing 03/15/25 1644 Davian Royer, M1 ARMOR CREWMAN Progressing Problem: Strength Dates: Start: 03/13/25 Disciplines: PT Goal: Improve strength Dates: Start: 03/13/25 Expected End: 04/10/25 Description: Of extremity/ location: bilat LE to WFL To facilitate: Disciplines: PT Outcomes Date/Time User Outcome 03/21/25 1314 Davian Royer, M1 ARMOR CREWMAN Progressing 03/20/25 1542 Davian Royer, M1 ARMOR CREWMAN Progressing 03/18/25 1721 Davian Royer, M1 ARMOR CREWMAN Progressing 03/17/25 1641 Davian Royer, M1 ARMOR CREWMAN Progressing 03/15/25 1644 Davian Royer, M1 ARMOR CREWMAN Progressing Problem: Transfers Dates: Start: 03/13/25 Disciplines: PT Goal: Patient will perform transfers with Minimum Assist Dates: Start: 03/13/25 Expected End: 04/10/25 Description: Goal Description: Patient to perform mobility with good safety awareness. Disciplines: PT Outcomes Date/Time User Outcome 03/21/25 1314 Davian Linton PTA Progressing 03/20/25 1542 Davian Linton PTA Progressing 03/18/25 1721 Davian Linton PTA Progressing 03/17/25 1641 Davian Linton PTA Progressing Physical Therapy Care Plan (Resolved) There are no resolved problems. Principal Problem: DVT (deep venous thrombosis) (CMS-HCC) Active Problems: Colon cancer screening Hematochezia Pressure ulcer of right buttock, stage 2 (CMS-HCC) Pressure injury of deep tissue of left buttock Cosigned by Joseph Montenegro PT at 03/21/2025 3:21 PM EDT Associated attestation - Joseph Montenegro, PT - 03/21/2025 3:21 PM EDT I have reviewed and agree with this note and education documentation for this visit. * Discharge Planning Note - Clair Cervantes - 03/21/2025 10:55 AM EDT DISCHARGE PLANNING NOTE CRF/Med Rec sent to [facility] in [place], [place] (P# ; F# ) . * Discharge Planning Note - Hiral Wilkins RN - 03/21/2025 10:37 AM EDT Ongoing Assessment for Discharge Needs Reviewed discharge milestones and patient needs related to discharge plan. Current estimated discharge date of Mar 21, 2025 has been reviewed by treatment team. Ongoing Assessment for Discharge Needs Flowsheet Row Most Recent Value Referral To Community Referrals / Resources Provided Denies needs Services Requested Patient expects to be discharged to: SNF Does the patient wish to have family/friend/caregiver involved in their discharge planning? No, thepatient does not wish to have family/friend/caregiver involved in their discharge planning Discharge Disposition SNF SNF Name [facility] SNF SNF Accepted? Yes PreCertification Authorization Number [id number] PreCertification Expiration Date 03/27/25 PreCertification Expiration Time 5383 Does the patient need discharge transportation arranged? No DC Planning Complete Discharge Milestones Yes Current discharge plan: Plan is to DC today to [facility] in [place] Authorization submitted: yes and approved Transportation: BLS transportation I set up for 2pm Barriers include: No medical barriers orders have been written CRF tasked to be sent to [facility] - Hiral Wilkins RN 03/21/25 10:37 AM * Discharge Planning Note - Pao Sivler - 03/21/2025 10:00 AM EDT DISCHARGE PLANNING NOTE Prior Auth approved for admission to : [facility] Approval #[id number] Valid for Dates: 03.21.2025-03.27.2025 * Plan of Care - Justine Sanchez RN - 03/21/2025 9:21 AM EDT Problem: Pain Goal: Patient goal is pain score less than 4, able to rest, and participant in treatment plan as appropriate Description: INTERVENTIONS: 1. Encourage patient or legal route sales representative to report early pain and ask for pain medicine when needed 2. Assess pain using appropriate pain scale and include the scale used when documenting 3. Administer analgesics based on type and severity of pain and evaluate response within appropriate time frame 4. Implement non-pharmacological measures as appropriate and evaluate response 5. Consider cultural and social influences on pain and pain management 6. Notify LIP if interventions ineffective or patient reports new pain 7. Monitor vital signs including pulse ox, end-tidal CO2 based on pain intervention 8. Reassess pain per policy 9. Teach patient or legal route sales representative interventions for comforting Outcome: Progressing Note: Evaluation of progress towards goal: Denies pain this am Problem: Safety Goal: Patient will be injury free during hospitalization Description: INTERVENTIONS: 1. Assess patient's risk for falls and implement fall prevention plan of care per policy 2. Provide and maintain a safe environment 3. Proper use of double Identifiers 4. Medication administration using the 5 rights 5. Hand hygiene 6. Specimens are labeled at the bedside 7. Instruct patient/ patient route sales representative about use of safety devices 8. Include patient/ patient route sales representative in decisions related to safety Outcome: Progressing Note: Evaluation of progress towards goal: Bed low and locked, call light within reach Problem: Infection Goal: Absence of infection during hospitalization Description: INTERVENTIONS 1. Assess and monitor for signs and symptoms of infection. 2. Monitor lab/diagnostic results. 3. Monitor all insertion sites i.e., indwelling lines, tubes and drains. 4. Monitor endotracheal (as able) and nasal secretions for changes in amount and color. 5. Administer medications as ordered. 6. Instruct and encourage patient and family to use good hand hygiene technique. 7. Identify and instruct patient/patient route sales representative in use of appropriate isolation precautionsfor identified infection/symptoms. 8. Provide and discuss with patient/patient route sales representative on educational MDRO sheet. 9. Encourage and monitor nutritional status daily and consult manuscript editor if indicated. 10. Implement neutropenic guidelines as needed. Outcome: Progressing Note: Evaluation of progress towards goal: No s/s of infection noted will continue to monitor Problem: Knowledge Deficit Goal: Patient/patient route sales representative demonstrates understanding of disease process, treatment plan,medications, and discharge instructions Description: INTERVENTIONS 1. Complete learning assessment and assess knowledge base 2. Provide teaching at level of understanding 3. Provide teaching via preferred learning method(s) Outcome: Progressing Note: Evaluation of progress towards goal: Reviewed plan of care with patient Problem: Discharge Planning Goal: Discharge to post-acute care, other facility, or home with appropriate resources Description: Patient's goal is: INTERVENTIONS 1. Conduct assessment to determine patient/family and health care team treatment goals, and need for post-acute services based on payer coverage, community resources, and patient preferences, and barriers to discharge 2. Coordinate with Social work, Care Navigation, and Utilization Review to arrange appropriate level of services according to patient's needs based on patient preference and payer coverage in collaboration with the physician and health care team 3. Address psychosocial, clinical, and financial barriers to discharge as identified in assessment in conjunction with the patient/family and health care team 4. Consult appropriate ancillary services (i.e.. PT/OT/ST, etc) as needed 5. Communicate with and update the patient/family, physician, and health care team regarding progress on the discharge plan 6. Identify discharge learning needs (meds, wound care, etc). 7. Arrange for needed discharge transportation as appropriate Note: Evaluation of progress towards goal: Reviewed plan of care with patient Problem: Moderate - High Risk Fall Score Description: Umaña Fall Score of =/> 25 or indicated by [facility] Assessment Goal: Patient should be free from fall Description: Interventions: 1. Meridian to environment 2. Hourly rounds addressing the 4 P's (Pain, Positioning, Possessions, Potty) 3. Clear area of hazards (spills, clutter, electrical cords, unnecessary equipment) 4. Place equipment (bed & TV controls, call light, phone, urinal) within reach 5. Encourage patient to wear glasses and hearing aides as appropriate 6. Maintain bed in lowest position 7. Lock wheels on bed/wheelchair 8. Provide adequate lighting, including night light 9. Assess need for additional bedding, food/fluids, pain med's prior to sleep/routinely 10. Provide gripper slippers or personal non-skid footwear 11. Teach patient and patient route sales representative to maintain environment for safety and engage in all aspects of fall prevention program 12. Remind patient to call for help before getting out of bed 13. Initiate bed/chair/exit alarms supportive devices as appropriate, (chair wedge, no-skid floor mat, raised edge mattress, hip protectors) 14. Locate patient bed assignment for optimal visualization 15. Evaluate and identify Safe Patient Handling Equipment needs 16. Provide supervision when out of bed or chair 17. Utilize gait belt as needed to assist with ambulation 18. Place adaptive equipment (cane, walker) within reach 19. Request patient route sales representative bring adaptive equipment/mobility aids from home or obtain and provide as needed 20. Consult pharmacy regarding effects of med's affecting mobility, cognition, and alternatives 21. Obtain physician order for PT if risk factors associated with mobility are present 22. Obtain physician order for OT as appropriate 23. Utilize diversional activities 24. Educate patient and patient route sales representative how to maintain a safe environment during visitationtimes (notify nurse prior to leaving bedside) 25. Consider appropriateness of medical or non-medical affairs leader 26. Set up voiding schedule as appropriate (every 2 hours) Outcome: Progressing Note: Evaluation of progress towards goal: Bed low and locked, call light within reach * Plan of Care - Tobin Lee MD - 03/21/2025 7:44 AM EDT MD to bedside. Patient seen and notified of surgical pathology results showing metastatic mucinous adenocarcinoma of primary colon, benign ovaries and fallopian tubes and negative PAX8. Discussed above findings and answered questions. Gynecology oncology will sign off. Tobin Lee PGY2, Obstetric & Gynecology 7:46 AM * Plan of Care - Yumiko Mclaughlin RN - 03/20/2025 10:00 PM EDT Problem: Pain Goal: Patient goal is pain score less than 4, able to rest, and participant in treatment plan as appropriate Description: INTERVENTIONS: 1. Encourage patient or legal route sales representative to report early pain and ask for pain medicine when needed 2. Assess pain using appropriate pain scale and include the scale used when documenting 3. Administer analgesics based on type and severity of pain and evaluate response within appropriate time frame 4. Implement non-pharmacological measures as appropriate and evaluate response 5. Consider cultural and social influences on pain and pain management 6. Notify LIP if interventions ineffective or patient reports new pain 7. Monitor vital signs including pulse ox, end-tidal CO2 based on pain intervention 8. Reassess pain per policy 9. Teach patient or legal route sales representative interventions for comforting Outcome: Progressing Note: Evaluation of progress towards goal: denies pain at this time Problem: Safety Goal: Patient will be injury free during hospitalization Description: INTERVENTIONS: 1. Assess patient's risk for falls and implement fall prevention plan of care per policy 2. Provide and maintain a safe environment 3. Proper use of double Identifiers 4. Medication administration using the 5 rights 5. Hand hygiene 6. Specimens are labeled at the bedside 7. Instruct patient/ patient route sales representative about use of safety devices 8. Include patient/ patient route sales representative in decisions related to safety Outcome: Progressing Note: Evaluation of progress towards goal: Bed low and locked, call light within reach Problem: Infection Goal: Absence of infection during hospitalization Description: INTERVENTIONS 1. Assess and monitor for signs and symptoms of infection. 2. Monitor lab/diagnostic results. 3. Monitor all insertion sites i.e., indwelling lines, tubes and drains. 4. Monitor endotracheal (as able) and nasal secretions for changes in amount and color. 5. Administer medications as ordered. 6. Instruct and encourage patient and family to use good hand hygiene technique. 7. Identify and instruct patient/patient route sales representative in use of appropriate isolation precautionsfor identified infection/symptoms. 8. Provide and discuss with patient/patient route sales representative on educational MDRO sheet. 9. Encourage and monitor nutritional status daily and consult manuscript editor if indicated. 10. Implement neutropenic guidelines as needed. Outcome: Progressing Note: Evaluation of progress towards goal: monitoring labs and vitals for s/s of infection Problem: Knowledge Deficit Goal: Patient/patient route sales representative demonstrates understanding of disease process, treatment plan,medications, and discharge instructions Description: INTERVENTIONS 1. Complete learning assessment and assess knowledge base 2. Provide teaching at level of understanding 3. Provide teaching via preferred learning method(s) Outcome: Progressing Note: Evaluation of progress towards goal: plan of care ongoing Problem: Discharge Planning Goal: Discharge to post-acute care, other facility, or home with appropriate resources Description: Patient's goal is: INTERVENTIONS 1. Conduct assessment to determine patient/family and health care team treatment goals, and need for post-acute services based on payer coverage, community resources, and patient preferences, and barriers to discharge 2. Coordinate with Social work, Care Navigation, and Utilization Review to arrange appropriate level of services according to patient's needs based on patient preference and payer coverage in collaboration with the physician and health care team 3. Address psychosocial, clinical, and financial barriers to discharge as identified in assessment in conjunction with the patient/family and health care team 4. Consult appropriate ancillary services (i.e.. PT/OT/ST, etc) as needed 5. Communicate with and update the patient/family, physician, and health care team regarding progress on the discharge plan 6. Identify discharge learning needs (meds, wound care, etc). 7. Arrange for needed discharge transportation as appropriate Outcome: Progressing Note: Evaluation of progress towards goal: Plan of care ongoing Problem: Moderate - High Risk Fall Score Description: Umaña Fall Score of =/> 25 or indicated by [facility] Assessment Goal: Patient should be free from fall Description: Interventions: 1. Meridian to environment 2. Hourly rounds addressing the 4 P's (Pain, Positioning, Possessions, Potty) 3. Clear area of hazards (spills, clutter, electrical cords, unnecessary equipment) 4. Place equipment (bed & TV controls, call light, phone, urinal) within reach 5. Encourage patient to wear glasses and hearing aides as appropriate 6. Maintain bed in lowest position 7. Lock wheels on bed/wheelchair 8. Provide adequate lighting, including night light 9. Assess need for additional bedding, food/fluids, pain med's prior to sleep/routinely 10. Provide gripper slippers or personal non-skid footwear 11. Teach patient and patient route sales representative to maintain environment for safety and engage in all aspects of fall prevention program 12. Remind patient to call for help before getting out of bed 13. Initiate bed/chair/exit alarms supportive devices as appropriate, (chair wedge, no-skid floor mat, raised edge mattress, hip protectors) 14. Locate patient bed assignment for optimal visualization 15. Evaluate and identify Safe Patient Handling Equipment needs 16. Provide supervision when out of bed or chair 17. Utilize gait belt as needed to assist with ambulation 18. Place adaptive equipment (cane, walker) within reach 19. Request patient route sales representative bring adaptive equipment/mobility aids from home or obtain and provide as needed 20. Consult pharmacy regarding effects of med's affecting mobility, cognition, and alternatives 21. Obtain physician order for PT if risk factors associated with mobility are present 22. Obtain physician order for OT as appropriate 23. Utilize diversional activities 24. Educate patient and patient route sales representative how to maintain a safe environment during visitationtimes (notify nurse prior to leaving bedside) 25. Consider appropriateness of medical or non-medical affairs leader 26. Set up voiding schedule as appropriate (every 2 hours) Note: Evaluation of progress towards goal: Bed low and locked, call light within reach Problem: Potential for Compromised Skin Integrity Goal: Skin integrity is maintained or improved Description: Patient's goal is: INTERVENTIONS 1. Perform initial skin assessment on admission and as needed 2. Turn patient every 2 hours and PRN 3. Relieve pressure to bony prominences 4. Avoid shearing 5. Keep skin clean and dry 6. Alternate a full bath with partial baths for elderly 7. Apply lotion/moisturizer on skin 8. Monitor patient's hygiene practices 9. Float heels 10. Collaborate with interdisciplinary team and initiate plans and interventions as needed Outcome: Progressing Note: Evaluation of progress towards goal: repositioning every 2hrs Goal: Patient's nutritional intake is adequate Description: Patient's goal is: INTERVENTIONS 1. Assess and monitor food intake and supplements, patient food preferences, nausea, vomiting, labs, oral cavity (gums, teeth, tongue, mucosa), proper denture fit, and cultural beliefs 2. Monitor for signs of hypoglycemia and hyperglycemia 3. Collaborate with interdisciplinary team and initiate plan and interventions as ordered 4. Monitor patient's weight 5. Assist patient with meals/food selection 6. Assist patient with eating 7. Allow adequate time for meals 8. Provide pleasant environment during mealtime 9. Increase social contact during mealtimes 10. Plan activities to conserve energy 11. Encourage/perform oral hygiene as appropriate 12. Encourage patient to take dietary supplement as ordered 13. Collaborate with clinical manuscript editor 14. Include patient/ patient's route sales representative in decisions related to nutrition Outcome: Progressing Note: Evaluation of progress towards goal: encourage nutritional intake Problem: Urinary Incontinence Goal: Perineal skin integrity is maintained or improved Description: INTERVENTIONS 1. Assess genitourinary system, perineal skin, labs (urinalysis), and history of incontinence to include past management, aggravating, and alleviating factors 2. Keep skin clean and dry 3. Apply skin protectant 4. Develop skin care regimen 5. Provide privacy when changing patients incontinence device to maintain their dignity 6. Consider placing an indwelling catheter 7. Collaborate with interdisciplinary team and initiate plans and interventions as needed Note: Evaluation of progress towards goal: free from new skin breakdown Problem: Inadequate Breathing Pattern Goal: Patient will achieve/maintain normal respiratory rate/effort Description: Patient's goal is: INTERVENTIONS 1. Assess and monitor respiratory rate, effort, breathing pattern, and oxygenation 2. Monitor patient for restlessness, anxiety, air hunger 3. Assess physical activity tolerance 4. Assess tobacco history; ask, advise, and refer as appropriate 5. Collaborate with interdisciplinary team and initiate plans/interventions as needed Note: Evaluation of progress towards goal: monitoring resp. assessment * Discharge Planning Note - Pao Silver - 03/20/2025 4:00 PM EDT DISCHARGE PLANNING NOTE Prior auth submitted to:[facility] Via:web portal On behalf of :Dimitri Ref#[id number] * PT/OT/GALLERY MANAGER - LORI Hardwick - 03/20/2025 3:27 PM EDT Occupational Therapy Treatment Discharge Recommendations for Safe Patient Transition OT Discharge Disposition Recommendation: Post acute - moderate OT Post Acute Moderate Rehab Needs: Recommend moderate intensity rehab, Tolerate 1-2 hrs of therapy3-5 days/wk, Subacute or chronic functional impairment Current Impairments Informing Therapy Recommendation: Ambulation status/safety, Fall risk, ADL status, Endurance level 6 Clicks: Daily Activity Putting on and taking off regular lower body clothing?: A lot Bathing (including washing, rinsing, drying)?: A lot Toileting, which includes using toilet, bedpan or urinal?: A lot Putting on and taking off regular upper body clothing?: A lot Taking care of personal grooming such as brushing teeth?: A little Eating meals?: A little Scoring Daily Activity Raw Score: 14 CMS G Code Modifier: CK 03/20/25 1503 UE ROM UE ROM exercises performed? No (focused on functional mobility) OT Treatment/Interventions: ADL retraining, Functional transfer training, UE strengthening/ROM, Endurance training, Patient/family training, Equipment eval/education, Balance, Bed mobility, Compensatory technique education, Functional activities OT Frequency: 4-5days/week OT Duration: length of stay Assessment Patient Assessment Therapy Problem List: Decreased ADL status, Decreased balance, Decreased endurance, Decreased high-level ADLs, Decreased mobility, Decreased safe judgement during ADL, Decreased self-care trans, Decreased UE ROM, Decreased UE strength Patient Response to Treatment: Slow progress, decreased activity tolerance Mood/Affect: Appropriate for circumstances Rehab Prognosis: Good, With continued OT status post acute discharge Visit RN Communication: Yes Medical Record Reviewed: Yes OT Type of Visit: Treatment Precautions Activity: ok to tx per RN Equipment: gait belt, RW, external cath, wound vac 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 Oxygen Used: room air Other: 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, Wound Vac, IV, Camara Pain Assessment Pain Assessment: 0-10 Pain Score: 2 Pain Location: Abdomen Pain Orientation: Mid Pain Intervention(s): Repositioned, Ambulation/increased activity Response to Interventions: Quiet, No grimacing ADL / IADL Other: pt declining ADLs at this time Home Management - IADL Other: pt declining ADLs at this time Hearing / Speech / Vision Hearing: Within Functional Limits Speech: Within Functional Limits Current Vision: Wears glasses all the time Cognition Overall Cognitive Status: Within Functional Limits Arousal/Alertness: Appropriate responses to stimuli Attention Span: Attends with cues to redirect Orientation Level: Oriented X4 Following Commands: Follows one step commands with increased time, Follows one step commands with repetition Other: pt pleasant and cooperative throughout Bed Mobility Rolling: Max assist, Left Supine to Sit: Max assist, Left Sit to Supine: Unable to assess Other: pt completed supine to sit with max Afor trunk and BLE support OOB. cued for proper log rolltechnique needing max a to initially roll with cueing to reach for bed rail. pt with posterior leanupon sitting EOB d/t increased abdominal pain. increased time and effort to complete positional change and increased time to tolerate sitting unsupported. pt in recliner at end of session with M1 ARMOR CREWMAN still present Transfers Sit to Stand: Min assist (x2) Stand to Sit: Min assist (x2) Stand Pivot Transfers: Min assist (x2) Other: pt completed sit<>stand with use of RW for BUE support and min A x2 to initiate reach full stand. cues given for proper hand placement and technique with slight unsteadiness but no LOB. pt completed SPT with min A x2 to fully complete turn and assist to navigate walker. cues given to keep self close to walker and min A x2 for controlled descent to recliner Gait Other: SPT completed only Balance Sitting Balance: Static: Fair Sitting Balance: Dynamic: Fair (-) Standing Balance: Static: Poor Standing Balance: Dynamic: Poor Other: use of RW for BUE support during transfers with unsteadiness noted but no LOB. pt sat unsupported at EOB for approx 4-5 mins for transfer prep with initial posterior lean d/t abdominal pain and needing min-mod A but progressing to CGA for safety. Activity Tolerance Endurance: Tolerates <30 minutes activity WITHOUT vital sign changes Other: pt limited d/t weakness, fatigue and pain. increased time and effort to complete activity with rest breaks as needed Plan Occupational Therapy Care Plan Occupational Therapy Care Plan (Active) Template: OT - Occupational Therapy Problem: Activity Tolerance Dates: Start: 03/13/25 Disciplines: OT Goal: Tolerate > 30 minutes of activity WITHOUT rest breaks Dates: Start: 03/13/25 Expected End: 04/04/25 Description: Goal Description: Disciplines: OT Outcomes Date/Time User Outcome 03/20/25 1509 Nava Barrera, PERALTA/L Progressing 03/18/25 1712 ANIRUDH KitchenA/Joie Progressing 03/17/25 1531 Nora Lynne PERALTA/L Progressing 03/15/25 1501 Evy Infante PERALTA/L Progressing Goal Note filed on 03/18/25 1712 by ANIRUDH KitchenA/Joie Evaluation of progress towards goal: Problem: Bathing LB Dates: Start: 03/13/25 Disciplines: OT Goal: Patient will perform bathing LB with Minimum Assist Dates: Start: 03/13/25 Expected End: 04/04/25 Description: Goal Description: Disciplines: OT Problem: Bathing UB Dates: Start: 03/13/25 Disciplines: OT Goal: Patient will perform bathing UB with Minimum Assist Dates: Start: 03/13/25 Expected End: 04/04/25 Description: Goal Description: Disciplines: OT Problem: Bed Mobility Dates: Start: 03/13/25 Disciplines: OT Goal: Patient will perform bed mobility with Minimum Assist Dates: Start: 03/13/25 Expected End: 04/04/25 Description: Goal Description: Disciplines: OT Outcomes Date/Time User Outcome 03/20/25 1509 Nava Barrera, PERALTA/L Not Progressing 03/18/25 1712 Giselle Lawrence PERALTA/Joie Progressing 03/15/25 1501 Evy Infante PERALTA/Joie Progressing Goal Note filed on 03/18/25 1712 by ANIRUDH KitchenA/Joie Evaluation of progress towards goal: Problem: Dressing LB Dates: Start: 03/13/25 Disciplines: OT Goal: Patient will perform dressing LB with Minimum Assist Dates: Start: 03/13/25 Expected End: 04/04/25 Description: Goal Description: Disciplines: OT Problem: Dressing UB Dates: Start: 03/13/25 Disciplines: OT Goal: Patient will perform dressing UB with Stand By Assist Dates: Start: 03/13/25 Expected End: 04/04/25 Description: Goal Description: Disciplines: OT Problem: Functional Mobility Dates: Start: 03/13/25 Disciplines: OT Goal: Patient will perform functional mobility with Minimum Assist Dates: Start: 03/13/25 Expected End: 04/04/25 Description: Goal Description: Disciplines: OT Outcomes Date/Time User Outcome 03/20/25 1509 ANIRUDH HardwickA/L Progressing Problem: Grooming Dates: Start: 03/13/25 Disciplines: OT Goal: Patient will perform grooming with Stand By Assist Dates: Start: 03/13/25 Expected End: 04/04/25 Description: Goal Description: Disciplines: OT Outcomes Date/Time User Outcome 03/18/25 1712 ANIRUDH KitchenA/Joie Progressing 03/15/25 1501 ANIRUDH AndersA/Joie Progressing Goal Note filed on 03/18/25 171 by KATHRYN Kitchen/Joie Evaluation of progress towards goal: Problem: Sitting Balance Dates: Start: 03/13/25 Disciplines: OT Goal: Improve balance to good Dates: Start: 03/13/25 Expected End: 04/04/25 Description: Demo good sitting balance 100% of the time Disciplines: OT Outcomes Date/Time User Outcome 03/20/25 1509 ANIRUDH HardwickA/L Progressing 03/18/25 1712 ANIRUDH KitchenA/Joie Progressing 03/17/25 1531 Nora Lynne, PERALTA/L Progressing 03/15/25 1501 Evy Infante PERALTA/L Progressing Goal Note filed on 03/18/25 171 by KATHRYN Kitchen/Joie Evaluation of progress towards goal: Problem: Standing Balance Dates: Start: 03/13/25 Disciplines: OT Goal: Improve balance to fair Dates: Start: 03/13/25 Expected End: 04/04/25 Description: Demo fair standing balance w/ use of AD for 3-5 minutes Disciplines: OT Outcomes Date/Time User Outcome 03/20/25 1509 Nava Barrera PERALTA/L Progressing 03/18/25 1712 ANIRUDH KitchenA/Joie Progressing 03/17/25 1531 Nora Lynne, PERALTA/L Progressing Goal Note filed on 03/18/25 171 by KATHRYN Kitchen/L Evaluation of progress towards goal: Problem: Strength Dates: Start: 03/13/25 Disciplines: OT Goal: Improve strength Dates: Start: 03/13/25 Expected End: 04/04/25 Description: Of extremity/ location:demo 5/5 strength B UEs To facilitate: Disciplines: OT Outcomes Date/Time User Outcome 03/20/25 1509 Nava Barrera, PERALTA/L Progressing 03/18/25 1712 Giselle Lawrence PERALTA/L Progressing 03/17/25 1531 Nora Lynne PERALTA/L Progressing 03/15/25 1501 Evy Infante PERALTA/L Progressing Goal Note filed on 03/18/251711 by KATHRYN Kitchen/Joie Evaluation of progress towards goal: Problem: Toilet Transfers Dates: Start: 03/13/25 Disciplines: OT Goal: Patient will perform toilet transfers with Minimum Assist Dates: Start: 03/13/25 Expected End: 04/04/25 Description: Goal Description: Disciplines: OT Problem: Toileting Dates: Start: 03/13/25 Disciplines: OT Goal: Patient will perform toileting with Minimum Assist Dates: Start: 03/13/25 Expected End: 04/04/25 Description: Goal Description: Disciplines: OT Problem: Transfers Dates: Start: 03/13/25 Disciplines: OT Goal: Patient will perform transfers with Minimum Assist Dates: Start: 03/13/25 Expected End: 04/04/25 Description: Goal Description: Disciplines: OT Outcomes Date/Time User Outcome 03/20/25 1509 Nava Barrera, PERALTA/L Progressing 03/18/25 1712 ANIRUDH KitchenA/Joie Progressing 03/17/25 1531 Nora Lynne PERALTA/L Progressing 03/15/25 1501 Evy Infante PERALTA/L Not Progressing Goal Note filed on 03/18/251711 by KATHRYN Kitchen/Joie Evaluation of progress towards goal: Occupational Therapy Care Plan (Resolved) There are no resolved problems. Principal Problem: DVT (deep venous thrombosis) (CMS-HCC) Active Problems: Colon cancer screening Hematochezia Pressure ulcer of right buttock, stage 2 (CMS-HCC) Pressure injury of deep tissue of left buttock Cosigned by WILTON Salmon/L at 03/21/2025 8:22 AM EDT Associated attestation - Lea Duran, OTR/L - 03/21/2025 8:22 AM EDT I have reviewed and agree with this note and education documentation for this visit. * PT/OT/GALLERY MANAGER - Davian Linton PTA - 03/20/2025 3:20 PM EDT Physical Therapy Treatment Discharge Recommendations for Safe Patient Transition PT Discharge Disposition Recommendation: Post acute - moderate PT Post Acute Moderate Rehab Needs: Recommend moderate intensity rehab, Tolerate 1-2 hrs of therapy3-5 days/wk, Subacute or chronic functional impairment Current Impairments Informing Therapy Recommendation: Ambulation status/safety, Fall risk, ADL status, Endurance level 6 Clicks: Basic Mobility Turning from your back to your side while in a flat bed without using bed rails?: A lot Moving from lying on your back to sitting on side of flat bed without using bed rails?: A lot Moving to and from bed to a chair (including w/c)?: A lot Standing up from a chair using your arms (e.g. w/c or bedside chair)?: A lot To walk in hospital room?: A lot Climbing 3-5 steps with a railing?: Total Scoring 6 Clicks: Basic Mobility Raw Score: 11 CMS G Code Modifier: CL PT Treatment/Interventions: ADL retraining, Functional transfer training, UE strengthening/ROM, LE strengthening/ROM, Endurance training, Patient/family training, Equipment eval/education, Balance, Bed mobility, Gait training, Functional activities, Neuromuscular reeducation PT Frequency: 5-6days/week PT Duration: LOS Assessment Patient Assessment Therapy Problem List: Decreased ADL status, Decreased balance, Decreased endurance, Decreased high-level ADLs, Decreased mobility, Decreased safe judgement during ADL, Decreased self-care trans, Decreased UE ROM, Decreased UE strength Patient Response to Treatment: Slow progress, decreased activity tolerance Mood/Affect: Appropriate for circumstances Rehab Prognosis: Good, With continued PT status post acute discharge Visit RN Communication: Yes Medical Record Reviewed: Yes PT Type of Visit: Treatment Precautions Activity: Early mobility pass; okay to see per RN Equipment: Gait belt, RW, wound vac, external catheter 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 Other: 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 Pain Assessment Pain Assessment: No/denies pain Pain Score: 2 Pain Location: Abdomen Pain Orientation: Mid Patient's Stated Acceptable Pain Level: No pain Pain Intervention(s): Repositioned, Ambulation/increased activity Response to Interventions: Quiet, No grimacing Cognition Orientation Level: Oriented X4 Bed Mobility Rolling: Max assist, Verbal cues, Left Supine to Sit: Max assist, Verbal cues, Tactile cues, Left Other: Patient assisted to EOB with HOB slightly elevated- Moderate use of bed rails (following cues) when exiting>L. Patient requires Max A to complete rolling onto L side in preperation of exiting via log rolling technique- BLEs brought off bed-Max A needed to aid in trunk righting/scooting. Patient transferred to recliner and remained there at end of session,c all light left near. RN notified. Transfers Sit to Stand: Min assist, Verbal cues, Tactile cues (x2) Stand to Sit: Min assist, Verbal cues, Tactile cues (x2) Stand Pivot Transfers: Min assist (x2) Other: Patient cued for hand placement/technique for safe sit<>stand transfers- Min Ax2 neededto complete full stand from level bed height- Pivot transfer completed from EOB>Recliner positioned near her R side- Step by step cueing offered for pacing/sequencing- Cues given for posture/AD proximity. pt. cues to reach back prior to sitting-Encouraged pursed lip exhale as she sits- Min Ax2 ne eded to aid in controlled descend when sitting. Gait Other: Pivot transfer completed this session- pt. unable to safely attempt ambulation away from EOBdue to pain/weakness/fatigue. Balance Sitting Balance: Static: Fair Sitting Balance: Dynamic: Fair (-) Standing Balance: Static: Poor Standing Balance: Dynamic: Poor Other: Patient maintained unsupported sitting at EOB for approx. 4-5 minutes while prepping for standing transfers-Single/BUE support used for stability as needed, CGA initially>progressed to SBA with time. BUE support on RW with Min ax2 for safety during standing/pivot transfers-Pt. slow and moderately unsteady but had no LOB, missteps, or knee buckling during session 03/20/25 1520 LE Seated LE seated exercises performed? Yes Ankle pumps X Long arc quads X Seated marching AAROM BLEs Hip abduction/adduction X Repetitions 15 UE ROM UE ROM exercises performed? Yes Scapular retraction X Shoulder flexion/extension X Shoulder horizontal abduction/adduction X Elbow flexion/extension X Repetitions 15 Activity Tolerance Endurance: Tolerates 30 minutes activity with rest breaks Other: Extra time/effort needed to complete all functional mobility due to weakness/lethargy/fatigue. Limited/poor standing tolerance noted- pt. completed pivot transfer this session but was notable unstable/weak- unsafe to attempt ambulation this session due to gross mobility/balance deficits/pain. BLE exercises completed with AROM/AAROM as needed to complete through end range. 5 reps completed using incentive spirometer. No SOB noted. Plan Physical Therapy Care Plan Physical Therapy Care Plan (Active) Template: PT - Physical Therapy Problem: Activity Tolerance Dates: Start: 03/13/25 Disciplines: PT Goal: Tolerate > 30 minutes of activity WITH rest breaks Dates: Start: 03/13/25 Expected End: 04/10/25 Description: Goal Description: Patient to perform functional range / strength exercises to improve functional strength, balance and activity tolerance for improved independence and safety with mobility. Disciplines: PT Outcomes Date/Time User Outcome 03/20/25 1542 Davian Linton, M1 ARMOR CREWMAN Progressing 03/18/25 1721 Davian Linton, M1 ARM[employer] CREWMAN Progressing 03/15/25 1644 Davian Linton M1 [employer] CRE[employer] Progressing Problem: Bed Mobility Dates: Start: 03/13/25 Disciplines: PT Goal: Patient will perform bed mobility with Minimum Assist Dates: Start: 03/13/25 Expected End: 04/10/25 Description: Goal Description: Disciplines: PT Outcomes Date/Time User Outcome 03/20/25 1542 Davian Linton, M1 [employer] Progressing 03/18/25 1721 Davian Royer, M1 [employer] CRE[employer]MAN Progressing 03/15/25 1644 Davian Linton M1 [employer] Progressing Problem: Gait Dates: Start: 03/13/25 Disciplines: PT Goal: Patient will perform gait with Minimum Assist Dates: Start: 03/13/25 Expected End: 04/10/25 Description: With__RW__,__25__feet Goal Description: Disciplines: PT Problem: Sitting Balance Dates: Start: 03/13/25 Disciplines: PT Goal: Improve balance to fair Dates: Start: 03/13/25 Expected End: 04/10/25 Description: Static Dynamic Disciplines: PT Outcomes Date/Time User Outcome 03/20/25 1542 Davian Royer, M1 [employer] Progressing 03/18/25 1721 Davian Royer, M1 [employer] CRE[employer] Progressing 03/17/25 1641 Davian Royer, M1 ARM[employer] CRE[employer]MAN Progressing 03/15/25 1644 Davian Royer, M1 [employer] CRE[employer]MAN Progressing Problem: Standing Balance Dates: Start: 03/13/25 Disciplines: PT Goal: Improve balance to fair Dates: Start: 03/13/25 Expected End: 04/10/25 Description: Improve standing balance to fair+ with UE support to minimize fall risk. Disciplines: PT Outcomes Date/Time User Outcome 03/20/25 1542 Davian Royer, M1 ARM[employer] CRE[employer]MAN Progressing 03/18/25 1721 Davian Royer, M1 ARM[employer] CRE[employer]MAN Progressing 03/17/25 1641 Davian Royer, M1 ARMOR CRE[employer]MAN Progressing 03/15/25 1644 Davian Royer, M1 [employer] CRE[employer] Progressing Problem: Strength Dates: Start: 03/13/25 Disciplines: PT Goal: Improve strength Dates: Start: 03/13/25 Expected End: 04/10/25 Description: Of extremity/ location: bilat LE to WFL To facilitate: Disciplines: PT Outcomes Date/Time User Outcome 03/20/25 1542 Davian Royer, M1 ARM[employer] CRE[employer]MAN Progressing 03/18/25 1721 Davian Royer, M1 ARMOR CREWMAN Progressing 03/17/25 1641 Davian Royer, M1 [employer]OR CRE[employer]MAN Progressing 03/15/25 1644 Davian Royer, M1 [employer] CRE[employer]MAN Progressing Problem: Transfers Dates: Start: 03/13/25 Disciplines: PT Goal: Patient will perform transfers with Minimum Assist Dates: Start: 03/13/25 Expected End: 04/10/25 Description: Goal Description: Patient to perform mobility with good safety awareness. Disciplines: PT Outcomes Date/Time User Outcome 03/20/25 1542 Davian Royer, M1 [employer] CRE[employer]MAN Progressing 03/18/25 1721 Davian Royer, M1 ARMOR CRE[employer]MAN Progressing 03/17/25 1641 Davian Royer, M1 [employer] CRE[employer] Progressing Physical Therapy Care Plan (Resolved) There are no resolved problems. Principal Problem: DVT (deep venous thrombosis) (CMS-HCC) Active Problems: Colon cancer screening Hematochezia Pressure ulcer of right buttock, stage 2 (CMS-HCC) Pressure injury of deep tissue of left buttock Cosigned by Asher Anaya PT at 03/20/2025 3:54 PM EDT Associated attestation - Asher Anaya, PT - 03/20/2025 3:54 PM EDT I have reviewed and agree with this note and education documentation for this visit. * Discharge Planning Note - RAYMON Barrera - 03/20/2025 11:28 AM EDT Ongoing Assessment for Discharge Needs Reviewed discharge milestones and patient needs related to discharge plan. Current estimated discharge date of Mar 22, 2025 has been reviewed by treatment team. Ongoing Assessment for Discharge Needs Flowsheet Row Most Recent Value Referral To Community Referrals / Resources Provided Denies needs Services Requested Patient expects to be discharged to: SNF Does the patient wish to have family/friend/caregiver involved in their discharge planning? No, thepatient does not wish to have family/friend/caregiver involved in their discharge planning Discharge Disposition SNF Does the patient need discharge transportation arranged? No SW spoke to patient about accepting SNF's ([facility], [facility] Patient would prefer to discharge to [facility]. Facility updated that they're FOC. Spoke to PT about need forupdated therapy notes- they will see this afternoon. Discussed timeline with patient. Current discharge plan: [facility] Authorization submitted: - Transportation: BLS Barriers include: no medical barriers identified - RAYMON BARRERA 03/20/25 11:28 AM [facility] tasked to submit auth - RAYMON BARRERA 03/20/25 3:41 PM * Discharge Planning Note - Marcelle Mojica - 03/20/2025 10:54 AM EDT DISCHARGE PLANNING NOTE e-fax referral to [facility] at F# [phone]; [facility] in [place] (P# ; F# ) * Plan of Care - Justine Sanchez RN - 03/20/2025 9:53 AM EDT Problem: Pain Goal: Patient goal is pain score less than 4, able to rest, and participant in treatment plan as appropriate Description: INTERVENTIONS: 1. Encourage patient or legal route sales representative to report early pain and ask for pain medicine when needed 2. Assess pain using appropriate pain scale and include the scale used when documenting 3. Administer analgesics based on type and severity of pain and evaluate response within appropriate time frame 4. Implement non-pharmacological measures as appropriate and evaluate response 5. Consider cultural and social influences on pain and pain management 6. Notify LIP if interventions ineffective or patient reports new pain 7. Monitor vital signs including pulse ox, end-tidal CO2 based on pain intervention 8. Reassess pain per policy 9. Teach patient or legal route sales representative interventions for comforting Outcome: Progressing Note: Evaluation of progress towards goal: Medicated for pain as needed Problem: Safety Goal: Patient will be injury free during hospitalization Description: INTERVENTIONS: 1. Assess patient's risk for falls and implement fall prevention plan of care per policy 2. Provide and maintain a safe environment 3. Proper use of double Identifiers 4. Medication administration using the 5 rights 5. Hand hygiene 6. Specimens are labeled at the bedside 7. Instruct patient/ patient route sales representative about use of safety devices 8. Include patient/ patient route sales representative in decisions related to safety Outcome: Progressing Note: Evaluation of progress towards goal: Bed low and locked, call light within reach Problem: Infection Goal: Absence of infection during hospitalization Description: INTERVENTIONS 1. Assess and monitor for signs and symptoms of infection. 2. Monitor lab/diagnostic results. 3. Monitor all insertion sites i.e., indwelling lines, tubes and drains. 4. Monitor endotracheal (as able) and nasal secretions for changes in amount and color. 5. Administer medications as ordered. 6. Instruct and encourage patient and family to use good hand hygiene technique. 7. Identify and instruct patient/patient route sales representative in use of appropriate isolation precautionsfor identified infection/symptoms. 8. Provide and discuss with patient/patient route sales representative on educational MDRO sheet. 9. Encourage and monitor nutritional status daily and consult manuscript editor if indicated. 10. Implement neutropenic guidelines as needed. Outcome: Progressing Note: Evaluation of progress towards goal: Antibiotics started Problem: Knowledge Deficit Goal: Patient/patient route sales representative demonstrates understanding of disease process, treatment plan,medications, and discharge instructions Description: INTERVENTIONS 1. Complete learning assessment and assess knowledge base 2. Provide teaching at level of understanding 3. Provide teaching via preferred learning method(s) Outcome: Progressing Note: Evaluation of progress towards goal: Reviewed plan of care with patient Problem: Discharge Planning Goal: Discharge to post-acute care, other facility, or home with appropriate resources Description: Patient's goal is: INTERVENTIONS 1. Conduct assessment to determine patient/family and health care team treatment goals, and need for post-acute services based on payer coverage, community resources, and patient preferences, and barriers to discharge 2. Coordinate with Social work, Care Navigation, and Utilization Review to arrange appropriate level of services according to patient's needs based on patient preference and payer coverage in collaboration with the physician and health care team 3. Address psychosocial, clinical, and financial barriers to discharge as identified in assessment in conjunction with the patient/family and health care team 4. Consult appropriate ancillary services (i.e.. PT/OT/ST, etc) as needed 5. Communicate with and update the patient/family, physician, and health care team regarding progress on the discharge plan 6. Identify discharge learning needs (meds, wound care, etc). 7. Arrange for needed discharge transportation as appropriate Outcome: Progressing Note: Evaluation of progress towards goal: Reviewed plan of care with patient Problem: Moderate - High Risk Fall Score Description: Umaña Fall Score of =/> 25 or indicated by [facility] Assessment Goal: Patient should be free from fall Description: Interventions: 1. [place] to environment 2. Hourly rounds addressing the 4 P's (Pain, Positioning, Possessions, Potty) 3. Clear area of hazards (spills, clutter, electrical cords, unnecessary equipment) 4. Place equipment (bed & TV controls, call light, phone, urinal) within reach 5. Encourage patient to wear glasses and hearing aides as appropriate 6. Maintain bed in lowest position 7. Lock wheels on bed/wheelchair 8. Provide adequate lighting, including night light 9. Assess need for additional bedding, food/fluids, pain med's prior to sleep/routinely 10. Provide gripper slippers or personal non-skid footwear 11. Teach patient and patient route sales representative to maintain environment for safety and engage in all aspects of fall prevention program 12. Remind patient to call for help before getting out of bed 13. Initiate bed/chair/exit alarms supportive devices as appropriate, (chair wedge, no-skid floor mat, raised edge mattress, hip protectors) 14. Locate patient bed assignment for optimal visualization 15. Evaluate and identify Safe Patient Handling Equipment needs 16. Provide supervision when out of bed or chair 17. Utilize gait belt as needed to assist with ambulation 18. Place adaptive equipment (cane, walker) within reach 19. Request patient route sales representative bring adaptive equipment/mobility aids from home or obtain and provide as needed 20. Consult pharmacy regarding effects of med's affecting mobility, cognition, and alternatives 21. Obtain physician order for PT if risk factors associated with mobility are present 22. Obtain physician order for OT as appropriate 23. Utilize diversional activities 24. Educate patient and patient route sales representative how to maintain a safe environment during visitationtimes (notify nurse prior to leaving bedside) 25. Consider appropriateness of medical or non-medical affairs leader 26. Set up voiding schedule as appropriate (every 2 hours) Outcome: Progressing Note: Evaluation of progress towards goal: Bed low and locked, call light within reach * Wound Care - Sylvia Verdin RN - 03/20/2025 9:35 AM EDT Images from the original note were not included. Enterostomal Therapist Ostomy Note: Diagnosis: Large bowel obstruction, with hard mass palpable in sigmoid colon, complex right ovarianmass Surgical Procedure: LAPAROTOMY EXPLORATORY TOTAL COLECTOMY ABTHERA WOUND VAC PLACEMENT OR Date: 03/07/2025 Surgeon: Dr Castillo Assessment: Pt lying in bed resting with eyes closed at arrival, she is a/o x 4 and agreeable to wound vac and pouch change today. The midline abdomen measures 21x3x2, the woundbed is red, moist and granulating well. The wound margins are open, the periwound skin is pink and intact. One piece of black foam was cut to fit and gently placed in the wound bed. It was then draped in normal fashion. The wound vac is in place and running at negative pressure of 75 mmHg continuous. There is approx 125 mL of serosanguinous drainage noted in canister. The wound vac dressing is fully intact with a good seal. Midline abd., 21-3-2 cm Attention was then turned to the RLQ ileostomy. The pouch was removed and the stoma is noted to be pink, moist, and just above skin level. Sutures are noted circumferentially. The mucocutaneous junction is intact. A new pouch was cut (off center to account for the wound vac dressing) to approx 25 mm and applied using a barrier ring as well. The pt tolerated the wound vac/pouch change well. RLQ stoma Education: --WNL stoma (color; moistness; protrusion; edema; no sensory nerves; highly vascular, easily bleeds) and peristomal (dry, intact, no rashes or weeping) assessment --pouch open/close/empty lesson demonstrated ( headlights, taillights, bumper, close the trunk ) --pouch should be emptied when no more than 1/3 to 1/2 full with stool or gas --full ostomy pouch change: removing old pouch, cleansing area with water, measuring and cutting new pouch appropriately, use of and application of barrier ring, applying pouch, then finishing by holding hand over pouch seal for 1-2 minutes to warm pouch into place --reviewed that pouch change will typically be every 3-4 days (as a routine/goal). Importance beingon consistent wear time. Some people leave pouch in place for longer. Pouch should immediately be changed with any signs of leaking so as to prevent skin irritation. If patient is having issues/leaks understands to call Lesson # 2 Who was Present: pt only Ostomy Management Treatment Plan Stoma Size: Supplies: Coloplast one piece flat drainable pouch with gas filter (#[id number]) Coloplast moldable ring (#[id number]) Ostomy Therapy: Gather supplies - cut pouch to measured size, washcloth/paper towel & water, barrier ring Remove old pouch and gently wash area with warm water, let dry Stretch barrier ring to size needed and apply to back of the pouch Pull abdominal skin flat with one hand and apply pouching system Look around entire wafer to make sure no leaks or cracks, should be smooth Hold hand in place for at least 2 minutes to warm pouch IF you have skin breakdown: crusting method sprinkle stoma powder to area and brush off extra, dab with skin prep/barrier wipes and let dry. This is only needed when skin is broken down/weeping/irritated. Plan: ET will continue to follow Mon-Fri for ostomy support and teaching. Ostomy supplies at bedside. ET nurses can be reached via secure chat and/or [employer]/portable phone. Patient may call outpatient ostomy clinic for any ongoing ostomy concerns, issues or questions after discharge. Outpatient Ostomy Clinic [facility] [address] [address] #[phone] * Discharge Planning Note - Kate Scott - 03/20/2025 9:23 AM EDT DISCHARGE PLANNING NOTE PT/ OT evals sent to [facility] in [place] (P# ; F# ) * Discharge Planning Note - Marcelle Mojica - 03/20/2025 8:56 AM EDT DISCHARGE PLANNING NOTE Clinical updates sent to all reviewing SNFs * Plan of Care - Luis Armando Ivy RN - 03/19/2025 9:56 PM EDT Problem: Pain Goal: Patient goal is pain score less than 4, able to rest, and participant in treatment plan as appropriate Description: INTERVENTIONS: 1. Encourage patient or legal route sales representative to report early pain and ask for pain medicine when needed 2. Assess pain using appropriate pain scale and include the scale used when documenting 3. Administer analgesics based on type and severity of pain and evaluate response within appropriate time frame 4. Implement non-pharmacological measures as appropriate and evaluate response 5. Consider cultural and social influences on pain and pain management 6. Notify LIP if interventions ineffective or patient reports new pain 7. Monitor vital signs including pulse ox, end-tidal CO2 based on pain intervention 8. Reassess pain per policy 9. Teach patient or legal route sales representative interventions for comforting Outcome: Progressing Note: Evaluation of progress towards goal: Patient denies pain at this time Problem: Safety Goal: Patient will be injury free during hospitalization Description: INTERVENTIONS: 1. Assess patient's risk for falls and implement fall prevention plan of care per policy 2. Provide and maintain a safe environment 3. Proper use of double Identifiers 4. Medication administration using the 5 rights 5. Hand hygiene 6. Specimens are labeled at the bedside 7. Instruct patient/ patient route sales representative about use of safety devices 8. Include patient/ patient route sales representative in decisions related to safety Outcome: Progressing Note: Evaluation of progress towards goal: Patient will be safe and injury free during hospitalization Problem: Infection Goal: Absence of infection during hospitalization Description: INTERVENTIONS 1. Assess and monitor for signs and symptoms of infection. 2. Monitor lab/diagnostic results. 3. Monitor all insertion sites i.e., indwelling lines, tubes and drains. 4. Monitor endotracheal (as able) and nasal secretions for changes in amount and color. 5. Administer medications as ordered. 6. Instruct and encourage patient and family to use good hand hygiene technique. 7. Identify and instruct patient/patient route sales representative in use of appropriate isolation precautionsfor identified infection/symptoms. 8. Provide and discuss with patient/patient route sales representative on educational MDRO sheet. 9. Encourage and monitor nutritional status daily and consult manuscript editor if indicated. 10. Implement neutropenic guidelines as needed. Outcome: Progressing Note: Evaluation of progress towards goal: Monitor for signs of infection Problem: Discharge Planning Goal: Discharge to post-acute care, other facility, or home with appropriate resources Description: Patient's goal is: INTERVENTIONS 1. Conduct assessment to determine patient/family and health care team treatment goals, and need for post-acute services based on payer coverage, community resources, and patient preferences, and barriers to discharge 2. Coordinate with Social work, Care Navigation, and Utilization Review to arrange appropriate level of services according to patient's needs based on patient preference and payer coverage in collaboration with the physician and health care team 3. Address psychosocial, clinical, and financial barriers to discharge as identified in assessment in conjunction with the patient/family and health care team 4. Consult appropriate ancillary services (i.e.. PT/OT/ST, etc) as needed 5. Communicate with and update the patient/family, physician, and health care team regarding progress on the discharge plan 6. Identify discharge learning needs (meds, wound care, etc). 7. Arrange for needed discharge transportation as appropriate Outcome: Progressing Note: Evaluation of progress towards goal: Discharge plan pending Problem: Inadequate Breathing Pattern Goal: Patient will achieve/maintain normal respiratory rate/effort Description: Patient's goal is: INTERVENTIONS 1. Assess and monitor respiratory rate, effort, breathing pattern, and oxygenation 2. Monitor patient for restlessness, anxiety, air hunger 3. Assess physical activity tolerance 4. Assess tobacco history; ask, advise, and refer as appropriate 5. Collaborate with interdisciplinary team and initiate plans/interventions as needed Outcome: Progressing * Discharge Planning Note - Marcelle Mojica - 03/19/2025 2:42 PM EDT DISCHARGE PLANNING NOTE Referral sent to multiple facilities or agencies due to patient insurance type/difficult placement/patient is without preference. * Discharge Planning Note - RAYMON Barrera - 03/19/2025 2:28 PM EDT Ongoing Assessment for Discharge Needs Reviewed discharge milestones and patient needs related to discharge plan. Current estimated discharge date of Mar 21, 2025 has been reviewed by treatment team. Ongoing Assessment for Discharge Needs Flowsheet Row Most Recent Value Referral To Community Referrals / Resources Provided Denies needs Services Requested Patient expects to be discharged to: SNF Does the patient wish to have family/friend/caregiver involved in their discharge planning? No, thepatient does not wish to have family/friend/caregiver involved in their discharge planning Discharge Disposition SNF Does the patient need discharge transportation arranged? No SW spoke to patient at bedside about discharge plans. Informed her that [facility] is [facility] but cannot guarantee a bed. Patient is agreeable to blanket SNF referrals being sent. [facility] tasked Current discharge plan: SNF- pending acceptance/ auth Authorization submitted: - Transportation: BLS Barriers include: no medical barriers - RAYMON BARRERA 03/19/25 2:32 PM * Wound Care - Sylvia Verdin RN - 03/19/2025 9:00 AM EDT Enterostomal Therapy ET following for [employer] wound vac to full thickness midline abdominal surgical incision. The wound vacis in place and running at negative pressure of 75 mmHg continuous. There is 100 mL of serosanguinous drainage noted in canister. The wound vac drape/dressing to the midline is intact. There is a moderate amount of dried blood at the distal end of the drape. No recent pump alarms noted. ET will continue to follow. Thank you. * Plan of Care - Ana Mead RN - 03/19/2025 8:22 AM EDT Problem: Pain Goal: Patient goal is pain score less than 4, able to rest, and participant in treatment plan as appropriate Description: INTERVENTIONS: 1. Encourage patient or legal route sales representative to report early pain and ask for pain medicine when needed 2. Assess pain using appropriate pain scale and include the scale used when documenting 3. Administer analgesics based on type and severity of pain and evaluate response within appropriate time frame 4. Implement non-pharmacological measures as appropriate and evaluate response 5. Consider cultural and social influences on pain and pain management 6. Notify LIP if interventions ineffective or patient reports new pain 7. Monitor vital signs including pulse ox, end-tidal CO2 based on pain intervention 8. Reassess pain per policy 9. Teach patient or legal route sales representative interventions for comforting Outcome: Progressing Note: Evaluation of progress towards goal: pain assessment completed, ongoing Problem: Safety Goal: Patient will be injury free during hospitalization Description: INTERVENTIONS: 1. Assess patient's risk for falls and implement fall prevention plan of care per policy 2. Provide and maintain a safe environment 3. Proper use of double Identifiers 4. Medication administration using the 5 rights 5. Hand hygiene 6. Specimens are labeled at the bedside 7. Instruct patient/ patient route sales representative about use of safety devices 8. Include patient/ patient route sales representative in decisions related to safety Outcome: Progressing Note: Evaluation of progress towards goal: patient safety maintained Problem: Infection Goal: Absence of infection during hospitalization Description: INTERVENTIONS 1. Assess and monitor for signs and symptoms of infection. 2. Monitor lab/diagnostic results. 3. Monitor all insertion sites i.e., indwelling lines, tubes and drains. 4. Monitor endotracheal (as able) and nasal secretions for changes in amount and color. 5. Administer medications as ordered. 6. Instruct and encourage patient and family to use good hand hygiene technique. 7. Identify and instruct patient/patient route sales representative in use of appropriate isolation precautionsfor identified infection/symptoms. 8. Provide and discuss with patient/patient route sales representative on educational MDRO sheet. 9. Encourage and monitor nutritional status daily and consult manuscript editor if indicated. 10. Implement neutropenic guidelines as needed. Outcome: Progressing Note: Evaluation of progress towards goal: monitor labs, vs Problem: Knowledge Deficit Goal: Patient/patient route sales representative demonstrates understanding of disease process, treatment plan,medications, and discharge instructions Description: INTERVENTIONS 1. Complete learning assessment and assess knowledge base 2. Provide teaching at level of understanding 3. Provide teaching via preferred learning method(s) Outcome: Progressing Note: Evaluation of progress towards goal: ongoing education Problem: Discharge Planning Goal: Discharge to post-acute care, other facility, or home with appropriate resources Description: Patient's goal is: INTERVENTIONS 1. Conduct assessment to determine patient/family and health care team treatment goals, and need for post-acute services based on payer coverage, community resources, and patient preferences, and barriers to discharge 2. Coordinate with Social work, Care Navigation, and Utilization Review to arrange appropriate level of services according to patient's needs based on patient preference and payer coverage in collaboration with the physician and health care team 3. Address psychosocial, clinical, and financial barriers to discharge as identified in assessment in conjunction with the patient/family and health care team 4. Consult appropriate ancillary services (i.e.. PT/OT/ST, etc) as needed 5. Communicate with and update the patient/family, physician, and health care team regarding progress on the discharge plan 6. Identify discharge learning needs (meds, wound care, etc). 7. Arrange for needed discharge transportation as appropriate Outcome: Progressing Note: Evaluation of progress towards goal: awaiting d/c plan * Plan of Care - Dolly Segura RN - 03/19/2025 12:41 AM EDT Problem: Pain Goal: Patient goal is pain score less than 4, able to rest, and participant in treatment plan as appropriate Description: INTERVENTIONS: 1. Encourage patient or legal route sales representative to report early pain and ask for pain medicine when needed 2. Assess pain using appropriate pain scale and include the scale used when documenting 3. Administer analgesics based on type and severity of pain and evaluate response within appropriate time frame 4. Implement non-pharmacological measures as appropriate and evaluate response 5. Consider cultural and social influences on pain and pain management 6. Notify LIP if interventions ineffective or patient reports new pain 7. Monitor vital signs including pulse ox, end-tidal CO2 based on pain intervention 8. Reassess pain per policy 9. Teach patient or legal route sales representative interventions for comforting Outcome: Progressing Note: Evaluation of progress towards goal: Assess and reassess, educate paitent on comrfort, educate on reporting pain early. Problem: Safety Goal: Patient will be injury free during hospitalization Description: INTERVENTIONS: 1. Assess patient's risk for falls and implement fall prevention plan of care per policy 2. Provide and maintain a safe environment 3. Proper use of double Identifiers 4. Medication administration using the 5 rights 5. Hand hygiene 6. Specimens are labeled at the bedside 7. Instruct patient/ patient route sales representative about use of safety devices 8. Include patient/ patient route sales representative in decisions related to safety Outcome: Progressing Note: Evaluation of progress towards goal: Maintain safe environment, properly identify patient, maintain hand hygiene, assess patient for fall risk Problem: Infection Goal: Absence of infection during hospitalization Description: INTERVENTIONS 1. Assess and monitor for signs and symptoms of infection. 2. Monitor lab/diagnostic results. 3. Monitor all insertion sites i.e., indwelling lines, tubes and drains. 4. Monitor endotracheal (as able) and nasal secretions for changes in amount and color. 5. Administer medications as ordered. 6. Instruct and encourage patient and family to use good hand hygiene technique. 7. Identify and instruct patient/patient route sales representative in use of appropriate isolation precautionsfor identified infection/symptoms. 8. Provide and discuss with patient/patient route sales representative on educational MDRO sheet. 9. Encourage and monitor nutritional status daily and consult manuscript editor if indicated. 10. Implement neutropenic guidelines as needed. Outcome: Progressing Note: Evaluation of progress towards goal: Assess for signs and symptoms of infection, monitor lab results, administer medications as ordered, monitor nutritional status daily Problem: Knowledge Deficit Goal: Patient/patient route sales representative demonstrates understanding of disease process, treatment plan,medications, and discharge instructions Description: INTERVENTIONS 1. Complete learning assessment and assess knowledge base 2. Provide teaching at level of understanding 3. Provide teaching via preferred learning method(s) Outcome: Progressing Note: Evaluation of progress towards goal: Patient updated on plan of care Problem: Moderate - High Risk Fall Score Description: Umaña Fall Score of =/> 25 or indicated by [facility] Assessment Goal: Patient should be free from fall Description: Interventions: 1. [place] to environment 2. Hourly rounds addressing the 4 P's (Pain, Positioning, Possessions, Potty) 3. Clear area of hazards (spills, clutter, electrical cords, unnecessary equipment) 4. Place equipment (bed & TV controls, call light, phone, urinal) within reach 5. Encourage patient to wear glasses and hearing aides as appropriate 6. Maintain bed in lowest position 7. Lock wheels on bed/wheelchair 8. Provide adequate lighting, including night light 9. Assess need for additional bedding, food/fluids, pain med's prior to sleep/routinely 10. Provide gripper slippers or personal non-skid footwear 11. Teach patient and patient route sales representative to maintain environment for safety and engage in all aspects of fall prevention program 12. Remind patient to call for help before getting out of bed 13. Initiate bed/chair/exit alarms supportive devices as appropriate, (chair wedge, no-skid floor mat, raised edge mattress, hip protectors) 14. Locate patient bed assignment for optimal visualization 15. Evaluate and identify Safe Patient Handling Equipment needs 16. Provide supervision when out of bed or chair 17. Utilize gait belt as needed to assist with ambulation 18. Place adaptive equipment (cane, walker) within reach 19. Request patient route sales representative bring adaptive equipment/mobility aids from home or obtain and provide as needed 20. Consult pharmacy regarding effects of med's affecting mobility, cognition, and alternatives 21. Obtain physician order for PT if risk factors associated with mobility are present 22. Obtain physician order for OT as appropriate 23. Utilize diversional activities 24. Educate patient and patient route sales representative how to maintain a safe environment during visitationtimes (notify nurse prior to leaving bedside) 25. Consider appropriateness of medical or non-medical affairs leader 26. Set up voiding schedule as appropriate (every 2 hours) Outcome: Progressing Note: Evaluation of progress towards goal: Patient free from falls this shift, bed locked and in lowest position with call light in reach Problem: Potential for Compromised Skin Integrity Goal: Skin integrity is maintained or improved Description: Patient's goal is: INTERVENTIONS 1. Perform initial skin assessment on admission and as needed 2. Turn patient every 2 hours and PRN 3. Relieve pressure to bony prominences 4. Avoid shearing 5. Keep skin clean and dry 6. Alternate a full bath with partial baths for elderly 7. Apply lotion/moisturizer on skin 8. Monitor patient's hygiene practices 9. Float heels 10. Collaborate with interdisciplinary team and initiate plans and interventions as needed Outcome: Progressing Note: Evaluation of progress towards goal: maintained Problem: Urinary Incontinence Goal: Perineal skin integrity is maintained or improved Description: INTERVENTIONS 1. Assess genitourinary system, perineal skin, labs (urinalysis), and history of incontinence to include past management, aggravating, and alleviating factors 2. Keep skin clean and dry 3. Apply skin protectant 4. Develop skin care regimen 5. Provide privacy when changing patients incontinence device to maintain their dignity 6. Consider placing an indwelling catheter 7. Collaborate with interdisciplinary team and initiate plans and interventions as needed Outcome: Progressing Note: Evaluation of progress towards goal: maintianed * PT/OT/GALLERY MANAGER - Davian Royer, M1 [employer] - 03/18/2025 5:22 PM EDT Physical Therapy Treatment Discharge Recommendations for Safe Patient Transition PT Discharge Disposition Recommendation: Post acute - moderate PT Post Acute Moderate Rehab Needs: Recommend moderate intensity rehab, Tolerate 1-2 hrs of therapy3-5 days/wk, Subacute or chronic functional impairment Current Impairments Informing Therapy Recommendation: Ambulation status/safety, Fall risk, ADL status, Endurance level 6 Clicks: Basic Mobility Turning from your back to your side while in a flat bed without using bed rails?: A lot Moving from lying on your back to sitting on side of flat bed without using bed rails?: A lot Moving to and from bed to a chair (including w/c)?: Total Standing up from a chair using your arms (e.g. w/c or bedside chair)?: A lot To walk in hospital room?: Total Climbing 3-5 steps with a railing?: Total Scoring 6 Clicks: Basic Mobility Raw Score: 9 CMS G Code Modifier: CL PT Treatment/Interventions: ADL retraining, Functional transfer training, UE strengthening/ROM, LE strengthening/ROM, Endurance training, Patient/family training, Equipment eval/education, Balance, Bed mobility, Gait training, Functional activities, Neuromuscular reeducation PT Frequency: 5-6days/week PT Duration: LOS Assessment Patient Assessment Therapy Problem List: Decreased ADL status, Decreased balance, Decreased endurance, Decreased grossmotor, Decreased high-level ADLs, Decreased mobility, Decreased safe judgement during ADL, Decreased LE strength, Decreased UE strength Patient Response to Treatment: Slow progress, decreased activity tolerance Mood/Affect: Appropriate for circumstances Rehab Prognosis: Good, With continued PT status post acute discharge Visit RN Communication: Yes Medical Record Reviewed: Yes PT Type of Visit: Treatment Precautions Activity: Early mobility pass; okay to see per RN Equipment: Sarath Gray, gait belt, IV pole, camara, wound vac 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 Other: 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 requires extra time/effort with step by step cueing to complete to complete with max Ax2- assistance needed for BLE management/trunk righting/scooting. patient transferred to recliner and remained there at end of session, call light left near. RN notified Transfers Sit to Stand: Min assist, Verbal cues, Tactile cues (x2) Stand to Sit: Mod assist, Verbal cues, Tactile cues (x2) Bed to Chair: Total assist Other: Patient cued for hand placement/technique for safe sit<>stand transfers- Min Ax2 neededto complete full stand from level surfaces- Utilized sarath gray to transfer pt. to recliner- She tolerated standing for approx. 20-30 sec x2 before needing to sit and rest- Mod Ax2 needed to aid in uncontrolled descend when sitting. Not appropriate to attempt standing transfers/abulation using RW at this time Gait Other: Unsafe to attempt standing transfers/ambulation with RW at this time due to gross mobility/balance deficits. Balance Sitting Balance: Static: Fair (-) Sitting Balance: Dynamic: Fair (-) Standing Balance: Static: Poor Other: Patient maintained unsupported sitting at EOB for approx. 5-6 minutes while prepping for standing transfers-BUE support used for stability throughout, slight posterior lean noted-CGA as needed, SBA otherwise. She tolerated standing for approx. 20-30 sec x2 using BUE support on Sarath ariel-CGAto maintain- No LOB or knee buckling noted. 03/18/25 1711 LE Seated LE seated exercises performed? Yes Ankle pumps X Long arc quads X Seated marching AAROM BLEs Repetitions 10 Therapeutic Activity Therapeutic activity exercises performed? Yes Seated X Other Incentive Spirometer Repetitions 10 Activity Tolerance Endurance: Tolerates 30 minutes activity with rest breaks Other: Extra time/effort needed to complete all functional mobility due to weakness/lethargy/fatigue. limited/poor standing tolerance noted- SPO2 dropped to a session low of 88% following- did not return to 90% for 2-3 minutes of seated rest. Not appropriate to attempt standing transfers/ambulationthis session using RW due to gross mobility/balance deficits. BLE exercises completed with AROM/AAROM as needed to complete through end range. 10 reps completed using incentive spirometer Plan Physical Therapy Care Plan Physical Therapy Care Plan (Active) Template: PT - Physical Therapy Problem: Activity Tolerance Dates: Start: 03/13/25 Disciplines: PT Goal: Tolerate > 30 minutes of activity WITH rest breaks Dates: Start: 03/13/25 Expected End: 04/10/25 Description: Goal Description: Patient to perform functional range / strength exercises to improve functional strength, balance and activity tolerance for improved independence and safety with mobility. Disciplines: PT Outcomes Date/Time User Outcome 03/18/25 1721 Davian Linton PTA Progressing 03/15/25 1644 Davian Linton PTA Progressing Problem: Bed Mobility Dates: Start: 03/13/25 Disciplines: PT Goal: Patient will perform bed mobility with Minimum Assist Dates: Start: 03/13/25 Expected End: 04/10/25 Description: Goal Description: Disciplines: PT Outcomes Date/Time User Outcome 03/18/25 1721 Davian Linton PTA Progressing 03/15/25 1644 Davian Linton, M1 [employer] Progressing Problem: Gait Dates: Start: 03/13/25 Disciplines: PT Goal: Patient will perform gait with Minimum Assist Dates: Start: 03/13/25 Expected End: 04/10/25 Description: With__RW__,__25__feet Goal Description: Disciplines: PT Problem: Sitting Balance Dates: Start: 03/13/25 Disciplines: PT Goal: Improve balance to fair Dates: Start: 03/13/25 Expected End: 04/10/25 Description: Static Dynamic Disciplines: PT Outcomes Date/Time User Outcome 03/18/25 1721 Davian Linton, M1 [employer] Progressing 03/17/25 1641 Davian Royer, M1 [employer] Progressing 03/15/25 1644 Davian Linton, M1 [employer] Progressing Problem: Standing Balance Dates: Start: 03/13/25 Disciplines: PT Goal: Improve balance to fair Dates: Start: 03/13/25 Expected End: 04/10/25 Description: Improve standing balance to fair+ with UE support to minimize fall risk. Disciplines: PT Outcomes Date/Time User Outcome 03/18/25 1721 Davian Linton, M1 [employer] Progressing 03/17/25 1641 Davian Linton, M1 [employer] Progressing 03/15/25 1644 Davian Linton, M1 [employer] Progressing Problem: Strength Dates: Start: 03/13/25 Disciplines: PT Goal: Improve strength Dates: Start: 03/13/25 Expected End: 04/10/25 Description: Of extremity/ location: bilat LE to WFL To facilitate: Disciplines: PT Outcomes Date/Time User Outcome 03/18/25 1721 Davian Linton, M1 [employer] Progressing 03/17/25 1641 Davian Angelesvin, M1 [employer] Progressing 03/15/25 1644 Davian Linton, M1 [employer] Progressing Problem: Transfers Dates: Start: 03/13/25 Disciplines: PT Goal: Patient will perform transfers with Minimum Assist Dates: Start: 03/13/25 Expected End: 04/10/25 Description: Goal Description: Patient to perform mobility with good safety awareness. Disciplines: PT Outcomes Date/Time User Outcome 03/18/25 1721 Davian Linton, M1 [employer] Progressing 03/17/25 1641 Davian Royer, M1 [employer] Progressing Physical Therapy Care Plan (Resolved) There are no resolved problems. Principal Problem: DVT (deep venous thrombosis) ([facility]) Active Problems: Colon cancer screening Hematochezia Cosigned by Anne Hays, PT at 03/19/2025 3:11 PM EDT Associated attestation - Anne Hays, PT - 03/19/2025 3:11 PM EDT I have reviewed and agree with this note and education documentation for this visit. * PT/OT/GALLERY MANAGER - KATHRYN Kitchen/Joie - 03/18/2025 5:09 PM EDT Occupational Therapy Treatment Discharge Recommendations for Safe Patient Transition OT Discharge Disposition Recommendation: Post acute - moderate OT Post Acute Moderate Rehab Needs: Recommend moderate intensity rehab, Tolerate 1-2 hrs of therapy3-5 days/wk, Subacute or chronic functional impairment Current Impairments Informing Therapy Recommendation: Ambulation status/safety, Fall risk, ADL status, Endurance level Therapy Plan 6 Clicks: Daily Activity Putting on and taking off regular lower body clothing?: A lot Bathing (including washing, rinsing, drying)?: A lot Toileting, which includes using toilet, bedpan or urinal?: Total (camara) Putting on and taking off regular upper body clothing?: A lot Taking care of personal grooming such as brushing teeth?: A little Eating meals?: A little Scoring Daily Activity Raw Score: 13 CMS G Code Modifier: CL 03/18/25 1509 UE ROM UE ROM exercises performed? Yes Shoulder flexion/extension x Shoulder horizontal abduction/adduction x Elbow flexion/extension x Other cues and demo for tech, AAROM intermittently for full ROM and proper tech, fatigues quickly. Repetitions 15 OT Treatment/Interventions: ADL retraining, Functional transfer training, UE strengthening/ROM, Endurance training, Patient/family training, Equipment eval/education, Balance, Bed mobility, Gait training, Compensatory technique education, Functional activities OT Frequency: 4-5days/week OT Duration: length of stay Assessment Patient Assessment Therapy Problem List: Decreased ADL status, Decreased balance, Decreased endurance, Decreased grossmotor, Decreased high-level ADLs, Decreased mobility, Decreased safe judgement during ADL, Decreased LE strength, Decreased UE strength Patient Response to Treatment: Slow progress, decreased activity tolerance Mood/Affect: Appropriate for circumstances Rehab Prognosis: Good, With continued OT status post acute discharge Visit RN Communication: Yes Medical Record Reviewed: Yes OT Type of Visit: Treatment Precautions Activity: ok for tx per Rn Equipment: Sarath Stedy, gait belt Telemetry/Plumbing Engineering Draftsperson: No Oxygen Used: room air Other: 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, Wound Vac, IV, Camara Pain Assessment Pain Assessment: No/denies pain ADL / IADL Other: pt focused on functional transfers Home Management - IADL Other: pt focused on functional transfers Hearing / Speech / Vision Hearing: Within Functional Limits Speech: Within Functional Limits Current Vision: Wears glasses all the time Cognition Overall Cognitive Status: Within Functional Limits Bed Mobility Supine to Sit: Max assist, Verbal cues, Visual cues, Tactile cues (x2 with HOB elevated, cues for sequencing/tech and log roll to decrease abdominal strain.) Other: pt remained in recliner at end of session, call light in reach, RN aware. Transfers Sit to Stand: Min assist, Verbal cues (x2) Stand to Sit: Mod assist, Verbal cues (x2) Bed to Chair: Total assist, Verbal cues (sarath stedy) Other: pt completes STS within Sarath Stedy requiring Min A assist x2 for sit to stand, Mod assist [id number] to sit with assist to control descent into chair. Pt anxious/weak in standing, encouragement required to stand longer. Gait Other: NT Balance Sitting Balance: Static: Fair (-) Sitting Balance: Dynamic: Fair (-) Standing Balance: Static: Poor (+) Other: sat unsupported at EOB ~5' with posterior lean d/t abd discomfort requiring B UE support to maintain balance, ; stood within Stedy ~30 x 2 trials with B UE support of stedy bar. Activity Tolerance Endurance: Tolerates <30 minutes activity WITHOUT vital sign changes Other: rest breaks prn d/t fatigue. Plan Occupational Therapy Care Plan Occupational Therapy Care Plan (Active) Template: OT - Occupational Therapy Problem: Activity Tolerance Dates: Start: 03/13/25 Disciplines: OT Goal: Tolerate > 30 minutes of activity WITHOUT rest breaks Dates: Start: 03/13/25 Expected End: 04/04/25 Description: Goal Description: Disciplines: OT Outcomes Date/Time User Outcome 03/18/25 1712 LORI Kitchen Progressing 03/17/25 1531 LORI Marcano Progressing 03/15/25 1501 LORI Anders Progressing Goal Note filed on 03/18/25 1712 by LORI Kitchen Evaluation of progress towards goal: Problem: Bathing LB Dates: Start: 03/13/25 Disciplines: OT Goal: Patient will perform bathing LB with Minimum Assist Dates: Start: 03/13/25 Expected End: 04/04/25 Description: Goal Description: Disciplines: OT Problem: Bathing UB Dates: Start: 03/13/25 Disciplines: OT Goal: Patient will perform bathing UB with Minimum Assist Dates: Start: 03/13/25 Expected End: 04/04/25 Description: Goal Description: Disciplines: OT Problem: Bed Mobility Dates: Start: 03/13/25 Disciplines: OT Goal: Patient will perform bed mobility with Minimum Assist Dates: Start: 03/13/25 Expected End: 04/04/25 Description: Goal Description: Disciplines: OT Outcomes Date/Time User Outcome 03/18/25 1712 LORI Kitchen Progressing 03/15/25 1501 LORI Anders Progressing Goal Note filed on 03/18/25 1712 by LORI Kitchen Evaluation of progress towards goal: Problem: Dressing LB Dates: Start: 03/13/25 Disciplines: OT Goal: Patient will perform dressing LB with Minimum Assist Dates: Start: 03/13/25 Expected End: 04/04/25 Description: Goal Description: Disciplines: OT Problem: Dressing UB Dates: Start: 03/13/25 Disciplines: OT Goal: Patient will perform dressing UB with Stand By Assist Dates: Start: 03/13/25 Expected End: 04/04/25 Description: Goal Description: Disciplines: OT Problem: Functional Mobility Dates: Start: 03/13/25 Disciplines: OT Goal: Patient will perform functional mobility with Minimum Assist Dates: Start: 03/13/25 Expected End: 04/04/25 Description: Goal Description: Disciplines: OT Problem: Grooming Dates: Start: 03/13/25 Disciplines: OT Goal: Patient will perform grooming with Stand By Assist Dates: Start: 03/13/25 Expected End: 04/04/25 Description: Goal Description: Disciplines: OT Outcomes Date/Time User Outcome 03/18/25 171 LORI Kitchen Progressing 03/15/25 1501 KATHRYN Anders/Joie Progressing Goal Note filed on 03/18/25 171 by LORI Kitchen Evaluation of progress towards goal: Problem: Sitting Balance Dates: Start: 03/13/25 Disciplines: OT Goal: Improve balance to good Dates: Start: 03/13/25 Expected End: 04/04/25 Description: Demo good sitting balance 100% of the time Disciplines: OT Outcomes Date/Time User Outcome 03/18/25 171 LORI Kitchen Progressing 03/17/25 1531 KATHRYN Marcano/Joie Progressing 03/15/25 1501 ANIRUDH AndersA/Joie Progressing Goal Note filed on 03/18/251711 by KATHRYN Kitchen/Joie Evaluation of progress towards goal: Problem: Standing Balance Dates: Start: 03/13/25 Disciplines: OT Goal: Improve balance to fair Dates: Start: 03/13/25 Expected End: 04/04/25 Description: Demo fair standing balance w/ use of AD for 3-5 minutes Disciplines: OT Outcomes Date/Time User Outcome 03/18/251711 KATHRYN Kitchen/Joie Progressing 03/17/25 1531 ANIRUDH MarcanoA/Joie Progressing Goal Note filed on 03/18/251711 by LORI Kitchen Evaluation of progress towards goal: Problem: Strength Dates: Start: 03/13/25 Disciplines: OT Goal: Improve strength Dates: Start: 03/13/25 Expected End: 04/04/25 Description: Of extremity/ location:demo 5/5 strength B UEs To facilitate: Disciplines: OT Outcomes Date/Time User Outcome 03/18/251711 LORI Kitchen Progressing 03/17/25 1531 Nora Lynne PERALTA/L Progressing 03/15/25 1501 ANIRUDH AndersA/L Progressing Goal Note filed on 03/18/251711 by LORI Kitchen Evaluation of progress towards goal: Problem: Toilet Transfers Dates: Start: 03/13/25 Disciplines: OT Goal: Patient will perform toilet transfers with Minimum Assist Dates: Start: 03/13/25 Expected End: 04/04/25 Description: Goal Description: Disciplines: OT Problem: Toileting Dates: Start: 03/13/25 Disciplines: OT Goal: Patient will perform toileting with Minimum Assist Dates: Start: 03/13/25 Expected End: 04/04/25 Description: Goal Description: Disciplines: OT Problem: Transfers Dates: Start: 03/13/25 Disciplines: OT Goal: Patient will perform transfers with Minimum Assist Dates: Start: 03/13/25 Expected End: 04/04/25 Description: Goal Description: Disciplines: OT Outcomes Date/Time User Outcome 03/18/25 1712 KATHRYN Kitchen/Joie Progressing 03/17/25 1531 KATHRYN Marcano/Joie Progressing 03/15/25 1501 ANIRUDH AndersA/Joie Not Progressing Goal Note filed on 03/18/251711 by LORI Kitchen Evaluation of progress towards goal: Occupational Therapy Care Plan (Resolved) There are no resolved problems. Principal Problem: DVT (deep venous thrombosis) ([facility]) Active Problems: Colon cancer screening Hematochezia Cosigned by WILTON Rivera/Joie at 03/19/2025 6:55 AM EDT Associated attestation - Kristin Smith OTR/L - 03/19/2025 6:55 AM EDT I have reviewed and agree with this note and education documentation for this visit. * Wound Care - Sylvia Verdin RN - 03/18/2025 2:50 PM EDT Enterostomal Therapist Ostomy Note: Diagnosis: Open Abdomen Surgical Procedure: Exploratory laparotomy Abdominal washout Resection of small bowel End ileostomy creation Application of wound VAC OR Date: 03/09/2025 Surgeon: Dr. Castillo Assessment: Pt lying in bed, awake and a/o x4. Pt reports bedside staff just emptied pouch. Pouch check revealed pouch was not closed properly providing the opportunity for education. Open/close lesson completed. Pt endorses concern that she will not be able to manage pouch independently. Additionally, pt has full thickness midline abdominal surgical incision with wound vac placement. The wound vac is in place and running at negative pressure of 75 mmHg continuous. There is approx 100 mL of serosanguinous drainage noted in canister. ET will follow. Thank you. Education: --WNL stoma (color; moistness; protrusion; edema; no sensory nerves; highly vascular, easily bleeds) and peristomal (dry, intact, no rashes or weeping) assessment --pouch open/close/empty lesson demonstrated ( headlights, taillights, bumper, close the trunk ) --pouch should be emptied when no more than 1/3 to 1/2 full with stool or gas Lesson # 3 Who was Present: pt only Ostomy Management Treatment Plan Stoma Size: TBD Supplies: Coloplast one piece flat drainable pouch with gas filter (#[id number]) Coloplast moldable ring (#[id number]) Ostomy Therapy: Gather supplies - cut pouch to measured size, washcloth/paper towel & water, barrier ring Remove old pouch and gently wash area with warm water, let dry Stretch barrier ring to size needed and apply to back of the pouch Pull abdominal skin flat with one hand and apply pouching system Look around entire wafer to make sure no leaks or cracks, should be smooth Hold hand in place for at least 2 minutes to warm pouch IF you have skin breakdown: crusting method sprinkle stoma powder to area and brush off extra, dab with skin prep/barrier wipes and let dry. This is only needed when skin is broken down/weeping/irritated. Plan: ET will continue to follow Mon-Fri for ostomy support and teaching. Ostomy supplies at bedside. ET nurses can be reached via secure chat and/or [employer]/portable phone. Patient may call outpatient ostomy clinic for any ongoing ostomy concerns, issues or questions after discharge. Outpatient Ostomy Clinic [facility] Entrance D [address] [place] [address] #[phone] * Plan of Care - Venita Chan MD - 03/18/2025 12:59 PM EDT Transfer out of SICU to Medicine Team Patient was eligible for transfer out of the SICU and onto step-down unit. Patient was originally followed by [facility] Hospitalist team as primary when she first arrived at the hospital. A transfer order was placed on 03/17/2025 to return back to [facility] Hospitalist group. A page to the [facility] Hospitalist was given and no call back was received. Patient was transferred out 03/17/2025 at 2011 based on chart review. SICU team reached out to both CRS and on-call hospitalist for [facility] via Epic chat. Confirmation that patient will be followed by [facility] as primary team on 03/18/2025 via Epic chat by Deena Branch MD and Neelima Ta CNP. Progress note has been written by [facility] hospitalist group as of 03/18/2025. Venita Chan MD (Nikki) PGY-1, Urology Resident SICU Service * Discharge Planning Note - Marcelle Mojica - 03/18/2025 12:03 PM EDT DISCHARGE PLANNING NOTE Referral sent to [facility], [facility] (P# ; F# ) * Discharge Planning Note - RAYMON Barrera - 03/18/2025 10:59 AM EDT Ongoing Assessment for Discharge Needs Reviewed discharge milestones and patient needs related to discharge plan. Current estimated discharge date of Mar 20, 2025 has been reviewed by treatment team. Ongoing Assessment for Discharge Needs Flowsheet Row Most Recent Value Referral To Community Referrals / Resources Provided Denies needs Services Requested Patient expects to be discharged to: home Does the patient wish to have family/friend/caregiver involved in their discharge planning? No, thepatient does not wish to have family/friend/caregiver involved in their discharge planning Discharge Disposition SNF Does the patient need discharge transportation arranged? No SW spoke to patient at bedside to obtain more SNF choices d/t [place] being OON. Patient would like a referral to [facility]. [facility] tasked. Patient also informed SW that her mother has POA paperwork-SW informed patient that if/when paperwork is brought in, it will be scanned into patient's chart. Current discharge plan: [facility]- pending acceptance/ auth Authorization submitted: - Transportation: BLS Barriers include: no medical barriers identified - RAYMON BARRERA 03/18/25 11:00 AM Additional SNF choices provided: [place] in [place] - RAYMON BARRERA 03/18/25 11:40 AM * Plan of Care - Ana Mead RN - 03/18/2025 9:00 AM EDT Problem: Pain Goal: Patient goal is pain score less than 4, able to rest, and participant in treatment plan as appropriate Description: INTERVENTIONS: 1. Encourage patient or legal route sales representative to report early pain and ask for pain medicine when needed 2. Assess pain using appropriate pain scale and include the scale used when documenting 3. Administer analgesics based on type and severity of pain and evaluate response within appropriate time frame 4. Implement non-pharmacological measures as appropriate and evaluate response 5. Consider cultural and social influences on pain and pain management 6. Notify LIP if interventions ineffective or patient reports new pain 7. Monitor vital signs including pulse ox, end-tidal CO2 based on pain intervention 8. Reassess pain per policy 9. Teach patient or legal route sales representative interventions for comforting Outcome: Progressing Note: Evaluation of progress towards goal: pain assessment completed, ongoing Problem: Safety Goal: Patient will be injury free during hospitalization Description: INTERVENTIONS: 1. Assess patient's risk for falls and implement fall prevention plan of care per policy 2. Provide and maintain a safe environment 3. Proper use of double Identifiers 4. Medication administration using the 5 rights 5. Hand hygiene 6. Specimens are labeled at the bedside 7. Instruct patient/ patient route sales representative about use of safety devices 8. Include patient/ patient route sales representative in decisions related to safety Outcome: Progressing Note: Evaluation of progress towards goal: patient safety maintained Problem: Infection Goal: Absence of infection during hospitalization Description: INTERVENTIONS 1. Assess and monitor for signs and symptoms of infection. 2. Monitor lab/diagnostic results. 3. Monitor all insertion sites i.e., indwelling lines, tubes and drains. 4. Monitor endotracheal (as able) and nasal secretions for changes in amount and color. 5. Administer medications as ordered. 6. Instruct and encourage patient and family to use good hand hygiene technique. 7. Identify and instruct patient/patient route sales representative in use of appropriate isolation precautionsfor identified infection/symptoms. 8. Provide and discuss with patient/patient route sales representative on educational MDRO sheet. 9. Encourage and monitor nutritional status daily and consult manuscript editor if indicated. 10. Implement neutropenic guidelines as needed. Outcome: Progressing Note: Evaluation of progress towards goal: monitor labs, vs Problem: Knowledge Deficit Goal: Patient/patient route sales representative demonstrates understanding of disease process, treatment plan,medications, and discharge instructions Description: INTERVENTIONS 1. Complete learning assessment and assess knowledge base 2. Provide teaching at level of understanding 3. Provide teaching via preferred learning method(s) Outcome: Progressing Note: Evaluation of progress towards goal: ongoing education Problem: Discharge Planning Goal: Discharge to post-acute care, other facility, or home with appropriate resources Description: Patient's goal is: INTERVENTIONS 1. Conduct assessment to determine patient/family and health care team treatment goals, and need for post-acute services based on payer coverage, community resources, and patient preferences, and barriers to discharge 2. Coordinate with Social work, Care Navigation, and Utilization Review to arrange appropriate level of services according to patient's needs based on patient preference and payer coverage in collaboration with the physician and health care team 3. Address psychosocial, clinical, and financial barriers to discharge as identified in assessment in conjunction with the patient/family and health care team 4. Consult appropriate ancillary services (i.e.. PT/OT/ST, etc) as needed 5. Communicate with and update the patient/family, physician, and health care team regarding progress on the discharge plan 6. Identify discharge learning needs (meds, wound care, etc). 7. Arrange for needed discharge transportation as appropriate Outcome: Progressing Note: Evaluation of progress towards goal: awaiting d/c plan * Plan of Care - Dolly Segura RN - 03/17/2025 11:04 PM EDT Problem: Pain Goal: Patient goal is pain score less than 4, able to rest, and participant in treatment plan as appropriate Description: INTERVENTIONS: 1. Encourage patient or legal route sales representative to report early pain and ask for pain medicine when needed 2. Assess pain using appropriate pain scale and include the scale used when documenting 3. Administer analgesics based on type and severity of pain and evaluate response within appropriate time frame 4. Implement non-pharmacological measures as appropriate and evaluate response 5. Consider cultural and social influences on pain and pain management 6. Notify LIP if interventions ineffective or patient reports new pain 7. Monitor vital signs including pulse ox, end-tidal CO2 based on pain intervention 8. Reassess pain per policy 9. Teach patient or legal route sales representative interventions for comforting Outcome: Progressing Note: Evaluation of progress towards goal: Assess and reassess, educate paitent on comrfort, educate on reporting pain early. Problem: Safety Goal: Patient will be injury free during hospitalization Description: INTERVENTIONS: 1. Assess patient's risk for falls and implement fall prevention plan of care per policy 2. Provide and maintain a safe environment 3. Proper use of double Identifiers 4. Medication administration using the 5 rights 5. Hand hygiene 6. Specimens are labeled at the bedside 7. Instruct patient/ patient route sales representative about use of safety devices 8. Include patient/ patient route sales representative in decisions related to safety Outcome: Progressing Note: Evaluation of progress towards goal: Maintain safe environment, properly identify patient, maintain hand hygiene, assess patient for fall risk Problem: Infection Goal: Absence of infection during hospitalization Description: INTERVENTIONS 1. Assess and monitor for signs and symptoms of infection. 2. Monitor lab/diagnostic results. 3. Monitor all insertion sites i.e., indwelling lines, tubes and drains. 4. Monitor endotracheal (as able) and nasal secretions for changes in amount and color. 5. Administer medications as ordered. 6. Instruct and encourage patient and family to use good hand hygiene technique. 7. Identify and instruct patient/patient route sales representative in use of appropriate isolation precautionsfor identified infection/symptoms. 8. Provide and discuss with patient/patient route sales representative on educational MDRO sheet. 9. Encourage and monitor nutritional status daily and consult manuscript editor if indicated. 10. Implement neutropenic guidelines as needed. Outcome: Progressing Note: Evaluation of progress towards goal: Assess for signs and symptoms of infection, monitor lab results, administer medications as ordered, monitor nutritional status daily Problem: Knowledge Deficit Goal: Patient/patient route sales representative demonstrates understanding of disease process, treatment plan,medications, and discharge instructions Description: INTERVENTIONS 1. Complete learning assessment and assess knowledge base 2. Provide teaching at level of understanding 3. Provide teaching via preferred learning method(s) Outcome: Progressing Note: Evaluation of progress towards goal: Patient updated on plan of care Problem: Discharge Planning Goal: Discharge to post-acute care, other facility, or home with appropriate resources Description: Patient's goal is: INTERVENTIONS 1. Conduct assessment to determine patient/family and health care team treatment goals, and need for post-acute services based on payer coverage, community resources, and patient preferences, and barriers to discharge 2. Coordinate with Social work, Care Navigation, and Utilization Review to arrange appropriate level of services according to patient's needs based on patient preference and payer coverage in collaboration with the physician and health care team 3. Address psychosocial, clinical, and financial barriers to discharge as identified in assessment in conjunction with the patient/family and health care team 4. Consult appropriate ancillary services (i.e.. PT/OT/ST, etc) as needed 5. Communicate with and update the patient/family, physician, and health care team regarding progress on the discharge plan 6. Identify discharge learning needs (meds, wound care, etc). 7. Arrange for needed discharge transportation as appropriate Outcome: Progressing Note: Evaluation of progress towards goal: Discharge on going at this time Problem: Moderate - High Risk Fall Score Description: Umaña Fall Score of =/> 25 or indicated by [facility] Assessment Goal: Patient should be free from fall Description: Interventions: 1. [place] to environment 2. Hourly rounds addressing the 4 P's (Pain, Positioning, Possessions, Potty) 3. Clear area of hazards (spills, clutter, electrical cords, unnecessary equipment) 4. Place equipment (bed & TV controls, call light, phone, urinal) within reach 5. Encourage patient to wear glasses and hearing aides as appropriate 6. Maintain bed in lowest position 7. Lock wheels on bed/wheelchair 8. Provide adequate lighting, including night light 9. Assess need for additional bedding, food/fluids, pain med's prior to sleep/routinely 10. Provide gripper slippers or personal non-skid footwear 11. Teach patient and patient route sales representative to maintain environment for safety and engage in all aspects of fall prevention program 12. Remind patient to call for help before getting out of bed 13. Initiate bed/chair/exit alarms supportive devices as appropriate, (chair wedge, no-skid floor mat, raised edge mattress, hip protectors) 14. Locate patient bed assignment for optimal visualization 15. Evaluate and identify Safe Patient Handling Equipment needs 16. Provide supervision when out of bed or chair 17. Utilize gait belt as needed to assist with ambulation 18. Place adaptive equipment (cane, walker) within reach 19. Request patient route sales representative bring adaptive equipment/mobility aids from home or obtain and provide as needed 20. Consult pharmacy regarding effects of med's affecting mobility, cognition, and alternatives 21. Obtain physician order for PT if risk factors associated with mobility are present 22. Obtain physician order for OT as appropriate 23. Utilize diversional activities 24. Educate patient and patient route sales representative how to maintain a safe environment during visitationtimes (notify nurse prior to leaving bedside) 25. Consider appropriateness of medical or non-medical affairs leader 26. Set up voiding schedule as appropriate (every 2 hours) Outcome: Progressing Note: Evaluation of progress towards goal: Patient free from falls this shift, bed locked and in lowest position with call light in reach Problem: Potential for Compromised Skin Integrity Goal: Skin integrity is maintained or improved Description: Patient's goal is: INTERVENTIONS 1. Perform initial skin assessment on admission and as needed 2. Turn patient every 2 hours and PRN 3. Relieve pressure to bony prominences 4. Avoid shearing 5. Keep skin clean and dry 6. Alternate a full bath with partial baths for elderly 7. Apply lotion/moisturizer on skin 8. Monitor patient's hygiene practices 9. Float heels 10. Collaborate with interdisciplinary team and initiate plans and interventions as needed Outcome: Progressing Note: Evaluation of progress towards goal: maintianed Goal: Patient's nutritional intake is adequate Description: Patient's goal is: INTERVENTIONS 1. Assess and monitor food intake and supplements, patient food preferences, nausea, vomiting, labs, oral cavity (gums, teeth, tongue, mucosa), proper denture fit, and cultural beliefs 2. Monitor for signs of hypoglycemia and hyperglycemia 3. Collaborate with interdisciplinary team and initiate plan and interventions as ordered 4. Monitor patient's weight 5. Assist patient with meals/food selection 6. Assist patient with eating 7. Allow adequate time for meals 8. Provide pleasant environment during mealtime 9. Increase social contact during mealtimes 10. Plan activities to conserve energy 11. Encourage/perform oral hygiene as appropriate 12. Encourage patient to take dietary supplement as ordered 13. Collaborate with clinical manuscript editor 14. Include patient/ patient's route sales representative in decisions related to nutrition Outcome: Progressing Note: Evaluation of progress towards goal: Patient encouraged to finish 100 percent of meals Problem: Urinary Incontinence Goal: Perineal skin integrity is maintained or improved Description: INTERVENTIONS 1. Assess genitourinary system, perineal skin, labs (urinalysis), and history of incontinence to include past management, aggravating, and alleviating factors 2. Keep skin clean and dry 3. Apply skin protectant 4. Develop skin care regimen 5. Provide privacy when changing patients incontinence device to maintain their dignity 6. Consider placing an indwelling catheter 7. Collaborate with interdisciplinary team and initiate plans and interventions as needed Outcome: Progressing Note: Evaluation of progress towards goal: maintained * PT/OT/GALLERY MANAGER - LORI Marcano - 03/17/2025 3:24 PM EDT Occupational Therapy Treatment Discharge Recommendations for Safe Patient Transition OT Discharge Disposition Recommendation: Post acute - moderate OT Post Acute Moderate Rehab Needs: Recommend moderate intensity rehab, Tolerate 1-2 hrs of therapy3-5 days/wk, Subacute or chronic functional impairment 6 Clicks: Daily Activity Putting on and taking off regular lower body clothing?: A lot Bathing (including washing, rinsing, drying)?: A lot Toileting, which includes using toilet, bedpan or urinal?: Total (camara) Putting on and taking off regular upper body clothing?: A lot Taking care of personal grooming such as brushing teeth?: A little Eating meals?: A little Scoring Daily Activity Raw Score: 13 CMS G Code Modifier: CL OT Treatment/Interventions: ADL retraining, Functional transfer training, UE strengthening/ROM, Endurance training, Patient/family training, Equipment eval/education, Balance, Bed mobility, Gait training, Compensatory technique education, Functional activities OT Frequency: 4-5days/week Assessment Patient Assessment Therapy Problem List: Decreased ADL status, Decreased balance, Decreased endurance, Decreased grossmotor, Decreased high-level ADLs, Decreased mobility, Decreased safe judgement during ADL, Decreased LE strength, Decreased UE strength Patient Response to Treatment: Slow progress, decreased activity tolerance Mood/Affect: Appropriate for circumstances Rehab Prognosis: Good, With continued OT status post acute discharge Visit RN Communication: Yes Medical Record Reviewed: Yes OT Type of Visit: Treatment Precautions Activity: Early Mobility Pass, RN chapo sánchez Equipment: [employer], gait belt 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 Oxygen Used: room air Other: 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, Wound Vac, IV, Camara Pain Assessment Pain Assessment: No/denies pain ADL / IADL Where Assessed: Chair Eating Assistance: Setup Toilet/Commode Assistance: Total assist (Camara) Footwear Assistance: Total assist Footwear Deficit: R sock, L sock (adjust socks on feet) Cognition Arousal/Alertness: Appropriate responses to stimuli Following Commands: Follows one step commands with increased time, Follows one step commands with repetition Bed Mobility Other: NT in chair on arrival Transfers Sit to Stand: Mod assist (x2) Stand to Sit: Max assist (x2) Other: [facility] transfers with Mod assist x2 for sit to stand, Max assist x2 stand to sit with assist to control descent. Pt anxious/weak in standing Gait Other: NT standing only this day Balance Sitting Balance: Static: Fair Sitting Balance: Dynamic: Fair (-) Standing Balance: Static: Poor (+) Standing Balance: Dynamic: Poor Other: fair/fair- sitting balance with UE support on armrests, poor+/poor standing balance . Standing enduarnce 30-40 seconds. Pt anxious in standing reporting I feel woobly Activity Tolerance Endurance: Tolerates <30 minutes activity WITHOUT vital sign changes Other: fair tolerance d/t weakness. Improved endurance with pt able to complete transfers today in [facility] with mod/max x2, tolerate seated UE ROM 03/17/25 1524 UE ROM UE ROM exercises performed? Yes Shoulder shrugs X Shoulder horizontal abduction/adduction X Elbow flexion/extension X Other gentle forward punch, AROM with rest breaks Repetitions 15x Pt remains in chair, setup for lunch, RN updated on tolerance Plan Occupational Therapy Care Plan Occupational Therapy Care Plan (Active) Template: OT - Occupational Therapy Problem: Activity Tolerance Dates: Start: 03/13/25 Disciplines: OT Goal: Tolerate > 30 minutes of activity WITHOUT rest breaks Dates: Start: 03/13/25 Expected End: 04/04/25 Description: Goal Description: Disciplines: OT Outcomes Date/Time User Outcome 03/17/25 1531 LORI Marcano Progressing 03/15/25 1501 LORI Anders Progressing Goal Note filed on 03/17/25 153 by LORI Marcano Evaluation of progress towards goal: Problem: Bathing LB Dates: Start: 03/13/25 Disciplines: OT Goal: Patient will perform bathing LB with Minimum Assist Dates: Start: 03/13/25 Expected End: 04/04/25 Description: Goal Description: Disciplines: OT Problem: Bathing UB Dates: Start: 03/13/25 Disciplines: OT Goal: Patient will perform bathing UB with Minimum Assist Dates: Start: 03/13/25 Expected End: 04/04/25 Description: Goal Description: Disciplines: OT Problem: Bed Mobility Dates: Start: 03/13/25 Disciplines: OT Goal: Patient will perform bed mobility with Minimum Assist Dates: Start: 03/13/25 Expected End: 04/04/25 Description: Goal Description: Disciplines: OT Outcomes Date/Time User Outcome 03/15/25 1501 LORI Anders Progressing Goal Note filed on 03/15/25 1501 by LORI Anders Evaluation of progress towards goal: Problem: Dressing LB Dates: Start: 03/13/25 Disciplines: OT Goal: Patient will perform dressing LB with Minimum Assist Dates: Start: 03/13/25 Expected End: 04/04/25 Description: Goal Description: Disciplines: OT Problem: Dressing UB Dates: Start: 03/13/25 Disciplines: OT Goal: Patient will perform dressing UB with Stand By Assist Dates: Start: 03/13/25 Expected End: 04/04/25 Description: Goal Description: Disciplines: OT Problem: Functional Mobility Dates: Start: 03/13/25 Disciplines: OT Goal: Patient will perform functional mobility with Minimum Assist Dates: Start: 03/13/25 Expected End: 04/04/25 Description: Goal Description: Disciplines: OT Problem: Grooming Dates: Start: 03/13/25 Disciplines: OT Goal: Patient will perform grooming with Stand By Assist Dates: Start: 03/13/25 Expected End: 04/04/25 Description: Goal Description: Disciplines: OT Outcomes Date/Time User Outcome 03/15/25 1501 KATHRYN Anders/Joie Progressing Goal Note filed on 03/15/25 150 by LORI Anders Evaluation of progress towards goal: Problem: Sitting Balance Dates: Start: 03/13/25 Disciplines: OT Goal: Improve balance to good Dates: Start: 03/13/25 Expected End: 04/04/25 Description: Demo good sitting balance 100% of the time Disciplines: OT Outcomes Date/Time User Outcome 03/17/25 1531 LORI Marcano Progressing 03/15/25 1501 KATHRYN Anders/Joie Progressing Goal Note filed on 03/17/25 1531 by LORI Marcano Evaluation of progress towards goal: Problem: Standing Balance Dates: Start: 03/13/25 Disciplines: OT Goal: Improve balance to fair Dates: Start: 03/13/25 Expected End: 04/04/25 Description: Demo fair standing balance w/ use of AD for 3-5 minutes Disciplines: OT Outcomes Date/Time User Outcome 03/17/25 1531 LORI Marcano Progressing Goal Note filed on 03/17/25 1531 by LORI Marcano Evaluation of progress towards goal: Problem: Strength Dates: Start: 03/13/25 Disciplines: OT Goal: Improve strength Dates: Start: 03/13/25 Expected End: 04/04/25 Description: Of extremity/ location:demo 5/5 strength B UEs To facilitate: Disciplines: OT Outcomes Date/Time User Outcome 03/17/25 1531 KATHRYN Marcano/Joie Progressing 03/15/25 1501 KATHRYN Anders/Joie Progressing Goal Note filed on 03/17/25 1531 by LORI Marcano Evaluation of progress towards goal: Problem: Toilet Transfers Dates: Start: 03/13/25 Disciplines: OT Goal: Patient will perform toilet transfers with Minimum Assist Dates: Start: 03/13/25 Expected End: 04/04/25 Description: Goal Description: Disciplines: OT Problem: Toileting Dates: Start: 03/13/25 Disciplines: OT Goal: Patient will perform toileting with Minimum Assist Dates: Start: 03/13/25 Expected End: 04/04/25 Description: Goal Description: Disciplines: OT Problem: Transfers Dates: Start: 03/13/25 Disciplines: OT Goal: Patient will perform transfers with Minimum Assist Dates: Start: 03/13/25 Expected End: 04/04/25 Description: Goal Description: Disciplines: OT Outcomes Date/Time User Outcome 03/17/25 1531 LORI Marcano Progressing 03/15/25 1501 KATHRYN Anders/Joie Not Progressing Goal Note filed on 03/17/251530 by LORI Marcano Evaluation of progress towards goal: Occupational Therapy Care Plan (Resolved) There are no resolved problems. Principal Problem: DVT (deep venous thrombosis) ([facility]) Active Problems: Colon cancer screening Hematochezia Cosigned by WILTON Rivera/Joie at 03/18/2025 6:47 AM EDT Associated attestation - Kristin Smith OTR/L - 03/18/2025 6:47 AM EDT I have reviewed and agree with this note and education documentation for this visit. * PT/OT/GALLERY MANAGER - Davian Linton PTA - 03/17/2025 2:40 PM EDT Physical Therapy Treatment Discharge Recommendations for Safe Patient Transition PT Discharge Disposition Recommendation: Post acute - moderate PT Post Acute Moderate Rehab Needs: Recommend moderate intensity rehab, Tolerate 1-2 hrs of therapy3-5 days/wk, Subacute or chronic functional impairment Current Impairments Informing Therapy Recommendation: Ambulation status/safety, Fall risk, ADL status, Endurance level 6 Clicks: Basic Mobility Turning from your back to your side while in a flat bed without using bed rails?: A lot Moving from lying on your back to sitting on side of flat bed without using bed rails?: A lot Moving to and from bed to a chair (including w/c)?: Total Standing up from a chair using your arms (e.g. w/c or bedside chair)?: A lot To walk in hospital room?: Total Climbing 3-5 steps with a railing?: Total Scoring 6 Clicks: Basic Mobility Raw Score: 9 CMS G Code Modifier: CL PT Treatment/Interventions: ADL retraining, Functional transfer training, UE strengthening/ROM, LE strengthening/ROM, Endurance training, Patient/family training, Equipment eval/education, Balance, Bed mobility, Gait training, Functional activities, Neuromuscular reeducation PT Frequency: 4-5days/week PT Duration: LOS Assessment Patient Assessment Therapy Problem List: Decreased ADL status, Decreased balance, Decreased endurance, Decreased grossmotor, Decreased high-level ADLs, Decreased mobility, Decreased safe judgement during ADL, Decreased LE strength, Decreased UE strength Patient Response to Treatment: Slow progress, decreased activity tolerance Mood/Affect: Appropriate for circumstances Rehab Prognosis: Good, With continued PT status post acute discharge Visit RN Communication: Yes Medical Record Reviewed: Yes PT Type of Visit: Treatment Precautions Activity: Early mobility pass; okay to see per RN Equipment: Sarath stedy, gait belt, IV pole, wound vac, camara 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 Other: high fall risk, lower abdominal incision with wound vac-colostomy Pain Assessment Pain Assessment: No/denies pain Cognition Orientation Level: Oriented X4 Bed Mobility Other: Patient in recliner at beginning and end of session, call light left near. RN notified. Transfers Sit to Stand: Mod assist, Verbal cues, Tactile cues (x2) Stand to Sit: Max assist, Verbal cues, Tactile cues (x2) Other: Patient cued for hand placement/technique for safe sit<>stand transfers- Mod ax2 needed to achieve full stand from recliner level. Patient maintained standing for approx. 30-45 sec x1 before requesting to sit and rest-Max Ax2 needed to prevent uncontrolled descend when sitting. Pt. anxious throughout- Denies dizziness/lightheadedness. Not appropriate to attempt standing transfers using RW at this time due to gross mobility/balance deficits. Gait Other: Not appropriate to attempt standing transfers/ambulation using RW at this time due to gross mobility/balance deficits. Balance Sitting Balance: Static: Fair Sitting Balance: Dynamic: Fair (-) Standing Balance: Static: Poor Other: Patient maintained short bout of unsupported sitting at edge of recliner- single/BUE supportused for stability throughout- Slight posterior lean noted. She tolerated standing for approx. 30-45 sec x1 using BUE support on sarath stedy- Min A needed to maintain short stand- No LOB noted. 03/17/25 1440 LE Supine LE supine exercises performed? Yes Ankle pumps X Hip abduction AAROM BLEs Repetitions 15 LE Seated LE seated exercises performed? Yes Ankle pumps X Long arc quads X Seated marching X Hip abduction/adduction X Repetitions 15 Therapeutic Activity Therapeutic activity exercises performed? Yes Seated X Other Incentive Spirometer Repetitions 5 Activity Tolerance Endurance: Tolerates 30 minutes activity with rest breaks Other: Extra time/effort needed to complete all functional mobility due to weakness/lethargy/fatigue. Limited/poor standing tolerance- Pt. needed to sit following 30-45 sec x1- Pt. denies dizziness/lightheadedness when standing but was notable anxious-Extended seated rest needed following. not appropriate to attempt standing transfers/ambulation using RW at this time. BLE exercies completed with AROM-offered AAROM as needed to complete through end range. no SOB or significant increases in HR during session Plan Physical Therapy Care Plan Physical Therapy Care Plan (Active) Template: PT - Physical Therapy Problem: Activity Tolerance Dates: Start: 03/13/25 Disciplines: PT Goal: Tolerate > 30 minutes of activity WITH rest breaks Dates: Start: 03/13/25 Expected End: 04/10/25 Description: Goal Description: Patient to perform functional range / strength exercises to improve functional strength, balance and activity tolerance for improved independence and safety with mobility. Disciplines: PT Outcomes Date/Time User Outcome 03/15/25 1644 Davian Linton PTA Progressing Problem: Bed Mobility Dates: Start: 03/13/25 Disciplines: PT Goal: Patient will perform bed mobility with Minimum Assist Dates: Start: 03/13/25 Expected End: 04/10/25 Description: Goal Description: Disciplines: PT Outcomes Date/Time User Outcome 03/15/25 1644 Davian LintonLUIGI Progressing Problem: Gait Dates: Start: 03/13/25 Disciplines: PT Goal: Patient will perform gait with Minimum Assist Dates: Start: 03/13/25 Expected End: 04/10/25 Description: With__RW__,__25__feet Goal Description: Disciplines: PT Problem: Sitting Balance Dates: Start: 03/13/25 Disciplines: PT Goal: Improve balance to fair Dates: Start: 03/13/25 Expected End: 04/10/25 Description: Static Dynamic Disciplines: PT Outcomes Date/Time User Outcome 03/17/25 1641 Davian Linton, M1 [employer] Progressing 03/15/25 1644 Davian LintonLUIGI Progressing Problem: Standing Balance Dates: Start: 03/13/25 Disciplines: PT Goal: Improve balance to fair Dates: Start: 03/13/25 Expected End: 04/10/25 Description: Improve standing balance to fair+ with UE support to minimize fall risk. Disciplines: PT Outcomes Date/Time User Outcome 03/17/25 1641 Davian LintonLUIGI Progressing 03/15/25 1644 Davian LUIGI Linton Progressing Problem: Strength Dates: Start: 03/13/25 Disciplines: PT Goal: Improve strength Dates: Start: 03/13/25 Expected End: 04/10/25 Description: Of extremity/ location: bilat LE to WFL To facilitate: Disciplines: PT Outcomes Date/Time User Outcome 03/17/25 1641 Davian Linton, M1 [employer] Progressing 03/15/25 1644 Davian LintonLUIGI Progressing Problem: Transfers Dates: Start: 03/13/25 Disciplines: PT Goal: Patient will perform transfers with Minimum Assist Dates: Start: 03/13/25 Expected End: 04/10/25 Description: Goal Description: Patient to perform mobility with good safety awareness. Disciplines: PT Outcomes Date/Time User Outcome 03/17/25 1641 Davian LintonLUIGI Progressing Physical Therapy Care Plan (Resolved) There are no resolved problems. Principal Problem: DVT (deep venous thrombosis) ([facility]) Active Problems: Colon cancer screening Hematochezia Cosigned by Lissette Carson, PT at 03/18/2025 4:14 PM EDT Associated attestation - Lissette Carson, PT - 03/18/2025 4:14 PM EDT I have reviewed and agree with this note and education documentation for this visit. * Wound Care - Vonda Tucker RN - 03/17/2025 9:45 AM EDT Images from the original note were not included. Enterostomal Therapy Pt seen for KCI vac dressing change and pouch change. She is resting in bed and medicated for pain.The midline abdominal surgical wound is red, clean with bloody drainage. Granulation tissue is present. Pt is on anticoagulation therapy. Silver foam applied to midline at continuous neg pressure of 75mmHG. The ileostomy pouch is prepped and full pouch change complete with patient observing everything. The stoma is red, viable with intact mucocutaneous junction. There is watery brown stool to pouch. Pt observed pouch open/ close technique. Support provided. Due to the complexity of the surgery, it is likely that the stoma is permanent. Abdominal wound 20x3x2.5cm * Plan of Care - Jimmy Joiner RN - 03/17/2025 7:47 AM EDT Problem: Pain Goal: Patient goal is pain score less than 4, able to rest, and participant in treatment plan as appropriate Description: INTERVENTIONS: 1. Encourage patient or legal route sales representative to report early pain and ask for pain medicine when needed 2. Assess pain using appropriate pain scale and include the scale used when documenting 3. Administer analgesics based on type and severity of pain and evaluate response within appropriate time frame 4. Implement non-pharmacological measures as appropriate and evaluate response 5. Consider cultural and social influences on pain and pain management 6. Notify LIP if interventions ineffective or patient reports new pain 7. Monitor vital signs including pulse ox, end-tidal CO2 based on pain intervention 8. Reassess pain per policy 9. Teach patient or legal route sales representative interventions for comforting Outcome: Progressing Note: Evaluation of progress towards goal: Patient able to verbalize pain and discomfort to staff, nurse uses proper intervention to control pain and discomfort. Problem: Safety Goal: Patient will be injury free during hospitalization Description: INTERVENTIONS: 1. Assess patient's risk for falls and implement fall prevention plan of care per policy 2. Provide and maintain a safe environment 3. Proper use of double Identifiers 4. Medication administration using the 5 rights 5. Hand hygiene 6. Specimens are labeled at the bedside 7. Instruct patient/ patient route sales representative about use of safety devices 8. Include patient/ patient route sales representative in decisions related to safety Outcome: Progressing Note: Evaluation of progress towards goal: Patient safety maintained, call light in reach, area clear of hazards, hourly rounding continued, bed locked in lowest position, alarm on as applicable, nonskid socks on, safety educated completed with patient/family, no injuries noted at this time. Problem: Infection Goal: Absence of infection during hospitalization Description: INTERVENTIONS 1. Assess and monitor for signs and symptoms of infection. 2. Monitor lab/diagnostic results. 3. Monitor all insertion sites i.e., indwelling lines, tubes and drains. 4. Monitor endotracheal (as able) and nasal secretions for changes in amount and color. 5. Administer medications as ordered. 6. Instruct and encourage patient and family to use good hand hygiene technique. 7. Identify and instruct patient/patient route sales representative in use of appropriate isolation precautionsfor identified infection/symptoms. 8. Provide and discuss with patient/patient route sales representative on educational MDRO sheet. 9. Encourage and monitor nutritional status daily and consult manuscript editor if indicated. 10. Implement neutropenic guidelines as needed. Outcome: Progressing Note: Evaluation of progress towards goal: Patient remains free from signs of infection at this time. Will continue to monitor. Problem: Knowledge Deficit Goal: Patient/patient route sales representative demonstrates understanding of disease process, treatment plan,medications, and discharge instructions Description: INTERVENTIONS 1. Complete learning assessment and assess knowledge base 2. Provide teaching at level of understanding 3. Provide teaching via preferred learning method(s) Outcome: Progressing Note: Nurse continues to educate patient and family on plan of care. Problem: Discharge Planning Goal: Discharge to post-acute care, other facility, or home with appropriate resources Description: Patient's goal is: INTERVENTIONS 1. Conduct assessment to determine patient/family and health care team treatment goals, and need for post-acute services based on payer coverage, community resources, and patient preferences, and barriers to discharge 2. Coordinate with Social work, Care Navigation, and Utilization Review to arrange appropriate level of services according to patient's needs based on patient preference and payer coverage in collaboration with the physician and health care team 3. Address psychosocial, clinical, and financial barriers to discharge as identified in assessment in conjunction with the patient/family and health care team 4. Consult appropriate ancillary services (i.e.. PT/OT/ST, etc) as needed 5. Communicate with and update the patient/family, physician, and health care team regarding progress on the discharge plan 6. Identify discharge learning needs (meds, wound care, etc). 7. Arrange for needed discharge transportation as appropriate Outcome: Progressing Note: Evaluation of progress towards goal: Discharge planning in progress with appropriate multidisciplinary teams. Problem: Moderate - High Risk Fall Score Description: Umaña Fall Score of =/> 25 or indicated by [facility] Assessment Goal: Patient should be free from fall Description: Interventions: 1. [place] to environment 2. Hourly rounds addressing the 4 P's (Pain, Positioning, Possessions, Potty) 3. Clear area of hazards (spills, clutter, electrical cords, unnecessary equipment) 4. Place equipment (bed & TV controls, call light, phone, urinal) within reach 5. Encourage patient to wear glasses and hearing aides as appropriate 6. Maintain bed in lowest position 7. Lock wheels on bed/wheelchair 8. Provide adequate lighting, including night light 9. Assess need for additional bedding, food/fluids, pain med's prior to sleep/routinely 10. Provide gripper slippers or personal non-skid footwear 11. Teach patient and patient route sales representative to maintain environment for safety and engage in all aspects of fall prevention program 12. Remind patient to call for help before getting out of bed 13. Initiate bed/chair/exit alarms supportive devices as appropriate, (chair wedge, no-skid floor mat, raised edge mattress, hip protectors) 14. Locate patient bed assignment for optimal visualization 15. Evaluate and identify Safe Patient Handling Equipment needs 16. Provide supervision when out of bed or chair 17. Utilize gait belt as needed to assist with ambulation 18. Place adaptive equipment (cane, walker) within reach 19. Request patient route sales representative bring adaptive equipment/mobility aids from home or obtain and provide as needed 20. Consult pharmacy regarding effects of med's affecting mobility, cognition, and alternatives 21. Obtain physician order for PT if risk factors associated with mobility are present 22. Obtain physician order for OT as appropriate 23. Utilize diversional activities 24. Educate patient and patient route sales representative how to maintain a safe environment during visitationtimes (notify nurse prior to leaving bedside) 25. Consider appropriateness of medical or non-medical affairs leader 26. Set up voiding schedule as appropriate (every 2 hours) Outcome: Progressing Note: Fall risk assessment preformed and safety measures in place. Education given to family/patient. Will continue to monitor. Problem: Potential for Compromised Skin Integrity Goal: Skin integrity is maintained or improved Description: Patient's goal is: INTERVENTIONS 1. Perform initial skin assessment on admission and as needed 2. Turn patient every 2 hours and PRN 3. Relieve pressure to bony prominences 4. Avoid shearing 5. Keep skin clean and dry 6. Alternate a full bath with partial baths for elderly 7. Apply lotion/moisturizer on skin 8. Monitor patient's hygiene practices 9. Float heels 10. Collaborate with interdisciplinary team and initiate plans and interventions as needed Outcome: Progressing Note: Patient is turned every 2 hours and as needed. Skin is clean and dry. Will continue to monitor. Goal: Patient's nutritional intake is adequate Description: Patient's goal is: INTERVENTIONS 1. Assess and monitor food intake and supplements, patient food preferences, nausea, vomiting, labs, oral cavity (gums, teeth, tongue, mucosa), proper denture fit, and cultural beliefs 2. Monitor for signs of hypoglycemia and hyperglycemia 3. Collaborate with interdisciplinary team and initiate plan and interventions as ordered 4. Monitor patient's weight 5. Assist patient with meals/food selection 6. Assist patient with eating 7. Allow adequate time for meals 8. Provide pleasant environment during mealtime 9. Increase social contact during mealtimes 10. Plan activities to conserve energy 11. Encourage/perform oral hygiene as appropriate 12. Encourage patient to take dietary supplement as ordered 13. Collaborate with clinical manuscript editor 14. Include patient/ patient's route sales representative in decisions related to nutrition Outcome: Progressing Note: Patient is turned every 2 hours and as needed. Skin is clean and dry. Will continue to monitor. Problem: Urinary Incontinence Goal: Perineal skin integrity is maintained or improved Description: INTERVENTIONS 1. Assess genitourinary system, perineal skin, labs (urinalysis), and history of incontinence to include past management, aggravating, and alleviating factors 2. Keep skin clean and dry 3. Apply skin protectant 4. Develop skin care regimen 5. Provide privacy when changing patients incontinence device to maintain their dignity 6. Consider placing an indwelling catheter 7. Collaborate with interdisciplinary team and initiate plans and interventions as needed Outcome: Progressing Note: Patient continues with camara catheter to monitor urine output Problem: Inadequate Breathing Pattern Goal: Patient will achieve/maintain normal respiratory rate/effort Description: Patient's goal is: INTERVENTIONS 1. Assess and monitor respiratory rate, effort, breathing pattern, and oxygenation 2. Monitor patient for restlessness, anxiety, air hunger 3. Assess physical activity tolerance 4. Assess tobacco history; ask, advise, and refer as appropriate 5. Collaborate with interdisciplinary team and initiate plans/interventions as needed Outcome: Progressing Note: Evaluation of progress towards goal: * Plan of Care - Radha Bill RCP - 2025 8:18 PM EDT Problem: Inadequate Breathing Pattern Goal: Patient will achieve/maintain normal respiratory rate/effort Description: Patient's goal is: INTERVENTIONS 1. Assess and monitor respiratory rate, effort, breathing pattern, and oxygenation 2. Monitor patient for restlessness, anxiety, air hunger 3. Assess physical activity tolerance 4. Assess tobacco history; ask, advise, and refer as appropriate 5. Collaborate with interdisciplinary team and initiate plans/interventions as needed Outcome: Progressing Note: Respiratory Therapy Clinical Practice Guidelines Consult Clinical Practice Guidelines Ordered Consult Assessment: Consult, Hyperinflation Oxygen Indications: Post op Hyperinflation Indications: Atelectasis or at risk for, Thoracic/abdominal surgery Hyperinflation Total: 3 Broncho-pulmonary Hygiene Indications: Inability/reluctance to change body position Broncho-pulmonary Hygiene Total: 1 Bronchodilator Indications: Bronchospasm/wheezing Bronchodilator Total: 1 Vital Signs Pulse: 68 Heart Rate Source: Monitor, Pulse Ox Resp: 25 SpO2: 100 % O2 Device: Nasal cannula O2 Flow Rate (L/min): 2 L/min FiO2 (%): 28 % Patient Position: Semi-fowlers Respiratory Assessment Assessment Type: Post-treatment Level of Consciousness: Alert Respiratory Pattern: Regular Chest Assessment: Chest expansion symmetrical Bilateral Breath Sounds: Clear, Diminished Patient Active Problem List Diagnosis DVT (deep venous thrombosis) ([facility]) Colon cancer screening Hematochezia Last Chest XRAY: Reviewed Pulmonary History: Reviewed RT Reassessment Due In: 12 hours Hyperinflation Inspiratory Volume Level 2: <10 ml/kg Respiratory Rate Level 1: </= 25 Level of Consciousness Level 1: Alert, follows instructions, can perform independently Breath Sounds Level 1: Clear and/or slightly diminished Cough Level 1: Strong, effective Chest X-Ray Level 2: Possible signs of atelectasis History & Physical Level 1: High risk of pulmonary complications such as - post op; immobility;abdominal binders SpO2 to O2 Need Level 2: >92% on NC @ 2-6 LPM Patients Current Level & Intervention: 3 Initiate/increase PAP/PEP therapy QID and PRN Evaluation of progress towards goal: Patient is currently on 2L NC and is stable at this time. * Discharge Planning Note - Kate Scott - 2025 3:58 PM EDT DISCHARGE PLANNING NOTE Referral sent to [facility]/ [facility], [place], [place] (P# ; F# ) * Discharge Planning Note - RAYMON Reynoso - 2025 3:57 PM EDT DISCHARGE PLANNING NOTE ZEV followed up on SNF choices and pt like ref to [facility]. Ref sent. Awaiting response. ZEV encouraged pt for back up choices. Will continue to follow. - RAYMON REYNOSO 03/16/25 3:58 PM * Plan of Care - Emerald Esparza RCP - 2025 10:01 AM EDT Respiratory Therapy Clinical Practice Guidelines Consult Clinical Practice Guidelines Ordered Consult Assessment: Consult, Hyperinflation Oxygen Indications: Post op Hyperinflation Indications: Atelectasis or at risk for, Thoracic/abdominal surgery Hyperinflation Total: 3 Vital Signs Pulse: 85 Heart Rate Source: Monitor Resp: 23 SpO2: 100 % O2 Device: Nasal cannula O2 Flow Rate (L/min): 2 L/min Respiratory Assessment Assessment Type: Post-treatment Level of Consciousness: Alert Respiratory Pattern: Regular Chest Assessment: Chest expansion symmetrical Bilateral Breath Sounds: Clear Patient Active Problem List Diagnosis DVT (deep venous thrombosis) ([facility]) Colon cancer screening Hematochezia Last Chest XRAY: Reviewed Pulmonary History: RT Reassessment Due In: 12 hours Hyperinflation Inspiratory Volume Level 3: <10 ml/kg Respiratory Rate Level 1: </= 25 Level of Consciousness Level 3: Following commands, can perform with direction Breath Sounds Level 2: Diminished and/or coarse Cough Level 1: Strong, effective Chest X-Ray Level 2: Possible signs of atelectasis History & Physical Level 1: High risk of pulmonary complications such as - post op; immobility;abdominal binders SpO2 to O2 Need Level 3: >92% on NC @ 2-6 LPM Patients Current Level & Intervention: 3 Initiate/increase PAP/PEP therapy QID and PRN Problem: Inadequate Breathing Pattern Goal: Patient will achieve/maintain normal respiratory rate/effort Description: Patient's goal is: INTERVENTIONS 1. Assess and monitor respiratory rate, effort, breathing pattern, and oxygenation 2. Monitor patient for restlessness, anxiety, air hunger 3. Assess physical activity tolerance 4. Assess tobacco history; ask, advise, and refer as appropriate 5. Collaborate with interdisciplinary team and initiate plans/interventions as needed Outcome: Progressing Note: Evaluation of progress towards goal: Per CPG no changes, pt still not meeting IS goal * Plan of Care - Radha Bill RCP - 03/15/2025 8:23 PM EDT Problem: Inadequate Breathing Pattern Goal: Patient will achieve/maintain normal respiratory rate/effort Description: Patient's goal is: INTERVENTIONS 1. Assess and monitor respiratory rate, effort, breathing pattern, and oxygenation 2. Monitor patient for restlessness, anxiety, air hunger 3. Assess physical activity tolerance 4. Assess tobacco history; ask, advise, and refer as appropriate 5. Collaborate with interdisciplinary team and initiate plans/interventions as needed Outcome: Progressing Note: Respiratory Therapy Clinical Practice Guidelines Consult Clinical Practice Guidelines Ordered Consult Assessment: Consult, Hyperinflation Oxygen Indications: Post op Hyperinflation Indications: Atelectasis or at risk for, Thoracic/abdominal surgery Hyperinflation Total: 3 Broncho-pulmonary Hygiene Indications: Inability/reluctance to change body position Broncho-pulmonary Hygiene Total: 1 Bronchodilator Indications: Bronchospasm/wheezing Bronchodilator Total: 1 Vital Signs BP: 122/60 Pulse: 78 Heart Rate Source: Monitor Resp: 23 SpO2: 100 % O2 Device: Nasal cannula O2 Flow Rate (L/min): 2 L/min FiO2 (%): 28 % Patient Position: Semi-fowlers Respiratory Assessment Assessment Type: Post-treatment Level of Consciousness: Alert Respiratory Pattern: Regular Chest Assessment: Chest expansion symmetrical Bilateral Breath Sounds: Diminished Patient Active Problem List Diagnosis DVT (deep venous thrombosis) ([facility]) Colon cancer screening Hematochezia Last Chest XRAY: Reviewed Pulmonary History: Reviewed RT Reassessment Due In: 12 hours Hyperinflation Inspiratory Volume Level 2: <10 ml/kg Respiratory Rate Level 1: </= 25 Level of Consciousness Level 2: Following commands, can perform with direction Breath Sounds Level 1: Clear and/or slightly diminished Cough Level 1: Strong, effective Chest X-Ray Level 2: Possible signs of atelectasis History & Physical Level 1: High risk of pulmonary complications such as - post op; immobility;abdominal binders SpO2 to O2 Need Level 2: >92% on NC @ 2-6 LPM Patients Current Level & Intervention: 3 Initiate/increase PAP/PEP therapy QID and PRN Evaluation of progress towards goal: Patient is currently stable on4L NC. * Discharge Planning Note - RAYMON Reynoso - 03/15/2025 4:02 PM EDT DISCHARGE PLANNING NOTE Sw met with pt to discuss DC planning. Sw discussed likely need of retirement placement and provided list. Pt is agreeable and will review list. Pt remains on lasix and albumin. Ng removed and on liquid diet. SW Nephrology following. Sw will continue to follow for DC needs. - RAYMON REYNOSO 03/15/25 4:05 PM * PT/OT/GALLERY MANAGER - LORI Anders 03/15/2025 3:02 PM EDT Occupational Therapy Treatment Discharge Recommendations for Safe Patient Transition OT Discharge Disposition Recommendation: Post acute - moderate OT Post Acute Moderate Rehab Needs: Recommend moderate intensity rehab, Tolerate 1-2 hrs of therapy3-5 days/wk, Subacute or chronic functional impairment Current Impairments Informing Therapy Recommendation: Ambulation status/safety, Fall risk, ADL status, Endurance level 6 Clicks: Daily Activity Putting on and taking off regular lower body clothing?: Total Bathing (including washing, rinsing, drying)?: A lot Toileting, which includes using toilet, bedpan or urinal?: Total Putting on and taking off regular upper body clothing?: A lot Taking care of personal grooming such as brushing teeth?: A little Eating meals?: A little Scoring Daily Activity Raw Score: 12 CMS G Code Modifier: CL OT Treatment/Interventions: ADL retraining, Functional transfer training, UE strengthening/ROM, Endurance training, Patient/family training, Equipment eval/education, Balance, Bed mobility, Gait training, Compensatory technique education, Functional activities OT Frequency: 4-5days/week OT Duration: length of stay Assessment Patient Assessment Therapy Problem List: Decreased ADL status, Decreased balance, Decreased endurance, Decreased grossmotor, Decreased high-level ADLs, Decreased mobility, Decreased safe judgement during ADL, Decreased LE strength, Decreased UE strength Patient Response to Treatment: Slow progress, decreased activity tolerance Mood/Affect: Appropriate for circumstances Rehab Prognosis: Good, With continued OT status post acute discharge Visit RN Communication: Yes Medical Record Reviewed: Yes OT Type of Visit: Treatment Precautions Activity: early mobility / pass Equipment: maxisky lift, repositioning sling, IV, camara, wound vac 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 Oxygen Used: 3L Other: high fall risk, abdominal incision with wound vac Pain Assessment Pain Assessment: No/denies pain ADL / IADL Hand Dominance: Right Where Assessed: Chair Grooming Assistance: Contact guard assist Grooming Deficit: Oral hygiene Other: pt completed oral hygiene while sitting unsupported in the chair. CGA provided for safety. no LOB noted. Home Management - IADL Other: pt completed oral hygiene while sitting unsupported in the chair. CGA provided for safety. no LOB noted. Cognition Orientation Level: Oriented X4 Bed Mobility Rolling: Mod assist, Right, Left Other: pt rolled R and L while supine for sling adjustment. use of rail required. mod A required tocomplete. cues provided for proper tech/body mechanics. increased time/effort required to complete. Transfers Bed to Chair: Total assist (maxisky) Other: use of maxisky lift utilized to transfer pt from bed to chair. not appropriate to complete sit to stand at this time d/t pts level of weakness and fatigue. pt left in the chair at end of session with call light within reach and with RN aware. Gait Other: not appropriate at this time Balance Sitting Balance: Static: Fair (-) Sitting Balance: Dynamic: Poor Other: unsupported sitting completed while sitting in the chair to help increase sitting tolerance/balance for ADLs and functional transfers. pt able to tolerate 7-8 mins with CGA/SBA required. single/B UE support required while sitting unsupported. no LOB noted. Activity Tolerance Endurance: Tolerates 30 minutes activity with rest breaks Other: stable vitals throughout session. pt is limited by weakness, fatigue, pain, and decreased activity tolerance. 03/15/25 1357 UE ROM UE ROM exercises performed? Yes Scapular retraction x Shoulder flexion/extension x Elbow flexion/extension x Other B UE AROM Repetitions x10 Plan Occupational Therapy Care Plan Occupational Therapy Care Plan (Active) Template: OT - Occupational Therapy Problem: Activity Tolerance Dates: Start: 03/13/25 Disciplines: OT Goal: Tolerate > 30 minutes of activity WITHOUT rest breaks Dates: Start: 03/13/25 Expected End: 04/04/25 Description: Goal Description: Disciplines: OT Outcomes Date/Time User Outcome 03/15/25 1501 LORI Anders Progressing Goal Note filed on 03/15/25 1501 by LORI Anders Evaluation of progress towards goal: Problem: Bathing LB Dates: Start: 03/13/25 Disciplines: OT Goal: Patient will perform bathing LB with Minimum Assist Dates: Start: 03/13/25 Expected End: 04/04/25 Description: Goal Description: Disciplines: OT Problem: Bathing UB Dates: Start: 03/13/25 Disciplines: OT Goal: Patient will perform bathing UB with Minimum Assist Dates: Start: 03/13/25 Expected End: 04/04/25 Description: Goal Description: Disciplines: OT Problem: Bed Mobility Dates: Start: 03/13/25 Disciplines: OT Goal: Patient will perform bed mobility with Minimum Assist Dates: Start: 03/13/25 Expected End: 04/04/25 Description: Goal Description: Disciplines: OT Outcomes Date/Time User Outcome 03/15/25 1501 LORI Anders Progressing Goal Note filed on 03/15/25 150 by LORI Anders Evaluation of progress towards goal: Problem: Dressing LB Dates: Start: 03/13/25 Disciplines: OT Goal: Patient will perform dressing LB with Minimum Assist Dates: Start: 03/13/25 Expected End: 04/04/25 Description: Goal Description: Disciplines: OT Problem: Dressing UB Dates: Start: 03/13/25 Disciplines: OT Goal: Patient will perform dressing UB with Stand By Assist Dates: Start: 03/13/25 Expected End: 04/04/25 Description: Goal Description: Disciplines: OT Problem: Functional Mobility Dates: Start: 03/13/25 Disciplines: OT Goal: Patient will perform functional mobility with Minimum Assist Dates: Start: 03/13/25 Expected End: 04/04/25 Description: Goal Description: Disciplines: OT Problem: Grooming Dates: Start: 03/13/25 Disciplines: OT Goal: Patient will perform grooming with Stand By Assist Dates: Start: 03/13/25 Expected End: 04/04/25 Description: Goal Description: Disciplines: OT Outcomes Date/Time User Outcome 03/15/25 1501 LORI Anders Progressing Goal Note filed on 03/15/25 1501 by LORI Anders Evaluation of progress towards goal: Problem: Sitting Balance Dates: Start: 03/13/25 Disciplines: OT Goal: Improve balance to good Dates: Start: 03/13/25 Expected End: 04/04/25 Description: Demo good sitting balance 100% of the time Disciplines: OT Outcomes Date/Time User Outcome 03/15/25 1501 LORI Anders Progressing Goal Note filed on 03/15/25 1501 by LORI Anders Evaluation of progress towards goal: Problem: Standing Balance Dates: Start: 03/13/25 Disciplines: OT Goal: Improve balance to fair Dates: Start: 03/13/25 Expected End: 04/04/25 Description: Demo fair standing balance w/ use of AD for 3-5 minutes Disciplines: OT Problem: Strength Dates: Start: 03/13/25 Disciplines: OT Goal: Improve strength Dates: Start: 03/13/25 Expected End: 04/04/25 Description: Of extremity/ location:demo 11/04 strength B UEs To facilitate: Disciplines: OT Outcomes Date/Time User Outcome 03/15/25 150 LORI Anders Progressing Goal Note filed on 03/15/25 150 by LORI Anders Evaluation of progress towards goal: Problem: Toilet Transfers Dates: Start: 03/13/25 Disciplines: OT Goal: Patient will perform toilet transfers with Minimum Assist Dates: Start: 03/13/25 Expected End: 04/04/25 Description: Goal Description: Disciplines: OT Problem: Toileting Dates: Start: 03/13/25 Disciplines: OT Goal: Patient will perform toileting with Minimum Assist Dates: Start: 03/13/25 Expected End: 04/04/25 Description: Goal Description: Disciplines: OT Problem: Transfers Dates: Start: 03/13/25 Disciplines: OT Goal: Patient will perform transfers with Minimum Assist Dates: Start: 03/13/25 Expected End: 04/04/25 Description: Goal Description: Disciplines: OT Outcomes Date/Time User Outcome 03/15/25 1501 LORI Anders Not Progressing Goal Note filed on 03/15/25 150 by LORI Anders Evaluation of progress towards goal: Occupational Therapy Care Plan (Resolved) There are no resolved problems. Principal Problem: DVT (deep venous thrombosis) ([facility]) Active Problems: Colon cancer screening Hematochezia Cosigned by WILTON Hung/Joie at 03/15/2025 3:12 PM EDT Associated attestation - Ludivina Singletary OTR/L - 03/15/2025 3:12 PM EDT I have reviewed and agree with this note and education documentation for this visit. * PT/OT/GALLERY MANAGER - Davian LintonLUIGI - 03/15/2025 2:46 PM EDT Physical Therapy Treatment Discharge Recommendations for Safe Patient Transition PT Discharge Disposition Recommendation: Post acute - moderate PT Post Acute Moderate Rehab Needs: Recommend moderate intensity rehab, Tolerate 1-2 hrs of therapy3-5 days/wk Current Impairments Informing Therapy Recommendation: Ambulation status/safety, Fall risk, ADL status, Swallowing, Endurance level 6 Clicks: Basic Mobility Turning from your back to your side while in a flat bed without using bed rails?: A lot Moving from lying on your back to sitting on side of flat bed without using bed rails?: A lot Moving to and from bed to a chair (including w/c)?: Total Standing up from a chair using your arms (e.g. w/c or bedside chair)?: Total To walk in hospital room?: Total Climbing 3-5 steps with a railing?: Total Scoring 6 Clicks: Basic Mobility Raw Score: 8 CMS G Code Modifier: CM PT Treatment/Interventions: ADL retraining, Functional transfer training, UE strengthening/ROM, LE strengthening/ROM, Endurance training, Patient/family training, Equipment eval/education, Balance, Bed mobility, Gait training, Functional activities, Neuromuscular reeducation PT Frequency: 4-5days/week PT Duration: LOS Assessment Patient Assessment Therapy Problem List: Decreased ADL status, Decreased balance, Decreased endurance, Decreased grossmotor, Decreased high-level ADLs, Decreased mobility, Decreased safe judgement during ADL, Decreased LE strength, Decreased UE strength Patient Response to Treatment: Slow progress, decreased activity tolerance Mood/Affect: Appropriate for circumstances Rehab Prognosis: Good, With continued PT status post acute discharge Visit RN Communication: Yes Medical Record Reviewed: Yes PT Type of Visit: Treatment Precautions Activity: Early mobility pass; okay to see per RN Equipment: Maxi audra, repositioning sling, wound vac, camara, IV pole 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 Oxygen Used: 3LO2 Other: high fall risk, lower abdominal incision with wound vac Pain Assessment Pain Assessment: No/denies pain Cognition Orientation Level: Oriented X4 Bed Mobility Rolling: Mod assist, Verbal cues, Right, Left Other: Deferred sitting EOB due to safety concerns with specialty ICU bed- Pt. rolled L<>R toposition sling/pad in proper position for OOB transfers via maxi audra- Mod A needed to complete fullroll to either side-rest needed in supine between rolls. Patient dependent in repositining toward HOB. Transfers Bed to Chair: Total assist Other: Utilized maxi audra to transfer pt. to recliner. Not appropriate to attempt standing transfersat this time due to gross mobility/balance deficits. Call light left near. RN aware Gait Other: NA Balance Sitting Balance: Static: Fair (-) Sitting Balance: Dynamic: Poor Other: Patient maintained unsupported sitting at edge of recliner for a total of 7-8 minutes-single/BUE support used for stability interchangeably for support- Pt. demos slight posterior lean-SBA for safety 03/15/25 1446 LE Supine LE supine exercises performed? Yes Ankle pumps X Repetitions 15 LE Seated LE seated exercises performed? Yes Ankle pumps X Long arc quads X Seated marching AAROM BLEs Hip abduction/adduction X Repetitions 10 Therapeutic Activity Therapeutic activity exercises performed? Yes Seated X Other Incentive Spirometer Repetitions 5 Activity Tolerance Endurance: Tolerates 30 minutes activity with rest breaks Other: Extra time/effort needed to complete all functional mobility due to weakness/lethargy/fatigue. Deferred sitting EOB due to unsafe nature of ICU beds. Pt. not appropriate to attempt standing transfers at this time due to gross mobility/balance deficits. Extended recliner rest needed following unsupported sitting. BLE exercises completed with AROM-rest needed. 5 reps completed using incentive Spirometer. Plan Physical Therapy Care Plan Physical Therapy Care Plan (Active) Template: PT - Physical Therapy Problem: Activity Tolerance Dates: Start: 03/13/25 Disciplines: PT Goal: Tolerate > 30 minutes of activity WITH rest breaks Dates: Start: 03/13/25 Expected End: 04/10/25 Description: Goal Description: Patient to perform functional range / strength exercises to improve functional strength, balance and activity tolerance for improved independence and safety with mobility. Disciplines: PT Outcomes Date/Time User Outcome 03/15/25 164Leanna Linton PTA Progressing Problem: Bed Mobility Dates: Start: 03/13/25 Disciplines: PT Goal: Patient will perform bed mobility with Minimum Assist Dates: Start: 03/13/25 Expected End: 04/10/25 Description: Goal Description: Disciplines: PT Outcomes Date/Time User Outcome 03/15/25 164Leanna Linton PTA Progressing Problem: Gait Dates: Start: 03/13/25 Disciplines: PT Goal: Patient will perform gait with Minimum Assist Dates: Start: 03/13/25 Expected End: 04/10/25 Description: With__RW__,__25__feet Goal Description: Disciplines: PT Problem: Sitting Balance Dates: Start: 03/13/25 Disciplines: PT Goal: Improve balance to fair Dates: Start: 03/13/25 Expected End: 04/10/25 Description: Static Dynamic Disciplines: PT Outcomes Date/Time User Outcome 03/15/25 Chon Linton PTA Progressing Problem: Standing Balance Dates: Start: 03/13/25 Disciplines: PT Goal: Improve balance to fair Dates: Start: 03/13/25 Expected End: 04/10/25 Description: Improve standing balance to fair+ with UE support to minimize fall risk. Disciplines: PT Outcomes Date/Time User Outcome 03/15/25 164Leanna Linton PTA Progressing Problem: Strength Dates: Start: 03/13/25 Disciplines: PT Goal: Improve strength Dates: Start: 03/13/25 Expected End: 04/10/25 Description: Of extremity/ location: bilat LE to WFL To facilitate: Disciplines: PT Outcomes Date/Time User Outcome 03/15/25 164Leanna Linton PTA Progressing Problem: Transfers Dates: Start: 03/13/25 Disciplines: PT Goal: Patient will perform transfers with Minimum Assist Dates: Start: 03/13/25 Expected End: 04/10/25 Description: Goal Description: Patient to perform mobility with good safety awareness. Disciplines: PT Physical Therapy Care Plan (Resolved) There are no resolved problems. Principal Problem: DVT (deep venous thrombosis) ([facility]) Active Problems: Colon cancer screening Hematochezia Cosigned by Carola Shah PT at 2025 4:10 PM EDT Associated attestation - Carola Shah, PT - 2025 4:10 PM EDT I have reviewed and agree with this note and education documentation for this visit. * Plan of Care - Emerald Pattenvon, GALLERY DIRECTOR - 03/15/2025 10:13 AM EDT Respiratory Therapy Clinical Practice Guidelines Consult Clinical Practice Guidelines Ordered Consult Assessment: Consult, Hyperinflation Oxygen Indications: Post op Hyperinflation Indications: Atelectasis or at risk for, Thoracic/abdominal surgery Hyperinflation Total: 3 Vital Signs Pulse: 98 Heart Rate Source: Monitor Resp: 24 SpO2: 100 % O2 Device: Nasal cannula O2 Flow Rate (L/min): (S) 3 L/min Respiratory Assessment Assessment Type: Post-treatment Level of Consciousness: Alert Respiratory Pattern: Regular Chest Assessment: Chest expansion symmetrical Bilateral Breath Sounds: Diminished Patient Active Problem List Diagnosis DVT (deep venous thrombosis) ([facility]) Colon cancer screening Hematochezia Last Chest XRAY: Reviewed Pulmonary History: RT Reassessment Due In: 12 hours Hyperinflation Inspiratory Volume Level 3: <10 ml/kg Respiratory Rate Level 1: </= 25 Level of Consciousness Level 3: Following commands, can perform with direction Breath Sounds Level 1: Clear and/or slightly diminished Cough Level 1: Strong, effective Chest X-Ray Level 2: Possible signs of atelectasis History & Physical Level 2: No response to IS therapy ; History of COPD, CF, Asthma, Ciliary issues SpO2 to O2 Need Level 3: >92% on NC @ 2-6 LPM Patients Current Level & Intervention: 3 Initiate/increase PAP/PEP therapy QID and PRN Problem: Inadequate Breathing Pattern Goal: Patient will achieve/maintain normal respiratory rate/effort Description: Patient's goal is: INTERVENTIONS 1. Assess and monitor respiratory rate, effort, breathing pattern, and oxygenation 2. Monitor patient for restlessness, anxiety, air hunger 3. Assess physical activity tolerance 4. Assess tobacco history; ask, advise, and refer as appropriate 5. Collaborate with interdisciplinary team and initiate plans/interventions as needed Outcome: Progressing Note: Evaluation of progress towards goal: Pt stable on current therapy. Per [facility] accupap will continue QID. Will continue to monitor and wean as able. * Plan of Care - Shanae Evans RN - 03/14/2025 9:08 PM EDT Problem: Pain Goal: Patient goal is pain score less than 4, able to rest, and participant in treatment plan as appropriate Description: INTERVENTIONS: 1. Encourage patient or legal route sales representative to report early pain and ask for pain medicine when needed 2. Assess pain using appropriate pain scale and include the scale used when documenting 3. Administer analgesics based on type and severity of pain and evaluate response within appropriate time frame 4. Implement non-pharmacological measures as appropriate and evaluate response 5. Consider cultural and social influences on pain and pain management 6. Notify LIP if interventions ineffective or patient reports new pain 7. Monitor vital signs including pulse ox, end-tidal CO2 based on pain intervention 8. Reassess pain per policy 9. Teach patient or legal route sales representative interventions for comforting Outcome: Progressing Note: Evaluation of progress towards goal: Pt pain is controled at this time. Problem: Safety Goal: Patient will be injury free during hospitalization Description: INTERVENTIONS: 1. Assess patient's risk for falls and implement fall prevention plan of care per policy 2. Provide and maintain a safe environment 3. Proper use of double Identifiers 4. Medication administration using the 5 rights 5. Hand hygiene 6. Specimens are labeled at the bedside 7. Instruct patient/ patient route sales representative about use of safety devices 8. Include patient/ patient route sales representative in decisions related to safety Outcome: Progressing Note: Evaluation of progress towards goal: Patient is injury free this hospitalization at this time. Problem: Infection Goal: Absence of infection during hospitalization Description: INTERVENTIONS 1. Assess and monitor for signs and symptoms of infection. 2. Monitor lab/diagnostic results. 3. Monitor all insertion sites i.e., indwelling lines, tubes and drains. 4. Monitor endotracheal (as able) and nasal secretions for changes in amount and color. 5. Administer medications as ordered. 6. Instruct and encourage patient and family to use good hand hygiene technique. 7. Identify and instruct patient/patient route sales representative in use of appropriate isolation precautionsfor identified infection/symptoms. 8. Provide and discuss with patient/patient route sales representative on educational MDRO sheet. 9. Encourage and monitor nutritional status daily and consult manuscript editor if indicated. 10. Implement neutropenic guidelines as needed. Outcome: Progressing Note: Evaluation of progress towards goal: Patient is free from infection during hospitalization atthis time. * Plan of Care - Darrius Richey MD - 03/14/2025 10:35 AM EDT We will recommend Eliquis once closer to discharge date 5 mg b.I.d. without induction dose, vascular medicine will sign off, if any questions or concerns arise please do not hesitate to reach out. * Wound Care - Vonda Tucker RN - 03/14/2025 9:30 AM EDT Enterostomal Therapy KCI vac dressing is intact at continuous neg pressure of 125mmHG. Small amount of serosang drainagein canister. Will follow. * Plan of Care - Dariana Muñoz RN - 03/13/2025 9:48 PM EDT Problem: Pain Goal: Patient goal is pain score less than 4, able to rest, and participant in treatment plan as appropriate Description: INTERVENTIONS: 1. Encourage patient or legal route sales representative to report early pain and ask for pain medicine when needed 2. Assess pain using appropriate pain scale and include the scale used when documenting 3. Administer analgesics based on type and severity of pain and evaluate response within appropriate time frame 4. Implement non-pharmacological measures as appropriate and evaluate response 5. Consider cultural and social influences on pain and pain management 6. Notify LIP if interventions ineffective or patient reports new pain 7. Monitor vital signs including pulse ox, end-tidal CO2 based on pain intervention 8. Reassess pain per policy 9. Teach patient or legal route sales representative interventions for comforting Outcome: Progressing Note: Evaluation of progress towards goal: Pt's pain assessed with rounding and assessments. Pain regimen followed along with additional measures such as repositioning. Education provided about pain management and its importance to healing Problem: Safety Goal: Patient will be injury free during hospitalization Description: INTERVENTIONS: 1. Assess patient's risk for falls and implement fall prevention plan of care per policy 2. Provide and maintain a safe environment 3. Proper use of double Identifiers 4. Medication administration using the 5 rights 5. Hand hygiene 6. Specimens are labeled at the bedside 7. Instruct patient/ patient route sales representative about use of safety devices 8. Include patient/ patient route sales representative in decisions related to safety Outcome: Progressing Note: Evaluation of progress towards goal: Pt's environment is safely maintained. Specimens labeledat bedside and 5 rights followed for medication. Gloves are worn with pt interaction and proper hand hygiene maintained when entering and exiting pt environment. Pt assessed and educated on fall riskand importance of staff assistance. Problem: Infection Goal: Absence of infection during hospitalization Description: INTERVENTIONS 1. Assess and monitor for signs and symptoms of infection. 2. Monitor lab/diagnostic results. 3. Monitor all insertion sites i.e., indwelling lines, tubes and drains. 4. Monitor endotracheal (as able) and nasal secretions for changes in amount and color. 5. Administer medications as ordered. 6. Instruct and encourage patient and family to use good hand hygiene technique. 7. Identify and instruct patient/patient route sales representative in use of appropriate isolation precautionsfor identified infection/symptoms. 8. Provide and discuss with patient/patient route sales representative on educational MDRO sheet. 9. Encourage and monitor nutritional status daily and consult manuscript editor if indicated. 10. Implement neutropenic guidelines as needed. Outcome: Progressing Note: Evaluation of progress towards goal: Pt assessed for s/s of infection. Medication regimen andwound care instructions followed. Pt remains afebrile and labs monitored. Any deviations of labs are reported. Pt and caregivers educated on s/s of infection. Problem: Knowledge Deficit Goal: Patient/patient route sales representative demonstrates understanding of disease process, treatment plan,medications, and discharge instructions Description: INTERVENTIONS 1. Complete learning assessment and assess knowledge base 2. Provide teaching at level of understanding 3. Provide teaching via preferred learning method(s) Outcome: Progressing Note: Pt and caregivers included in plan of care. Teaching done with every intervention. Teaching tailored to pt specific needs. Problem: Discharge Planning Goal: Discharge to post-acute care, other facility, or home with appropriate resources Description: Patient's goal is: INTERVENTIONS 1. Conduct assessment to determine patient/family and health care team treatment goals, and need for post-acute services based on payer coverage, community resources, and patient preferences, and barriers to discharge 2. Coordinate with Social work, Care Navigation, and Utilization Review to arrange appropriate level of services according to patient's needs based on patient preference and payer coverage in collaboration with the physician and health care team 3. Address psychosocial, clinical, and financial barriers to discharge as identified in assessment in conjunction with the patient/family and health care team 4. Consult appropriate ancillary services (i.e.. PT/OT/ST, etc) as needed 5. Communicate with and update the patient/family, physician, and health care team regarding progress on the discharge plan 6. Identify discharge learning needs (meds, wound care, etc). 7. Arrange for needed discharge transportation as appropriate Outcome: Progressing Note: Evaluation of progress towards goal: Social work consulted. Assessments ongoing to fit any needs pt may have upon d/c. All needs/ concerns expressed to care team. Problem: Moderate - High Risk Fall Score Description: Umaña Fall Score of =/> 25 or indicated by [facility] Assessment Goal: Patient should be free from fall Description: Interventions: 1. [place] to environment 2. Hourly rounds addressing the 4 P's (Pain, Positioning, Possessions, Potty) 3. Clear area of hazards (spills, clutter, electrical cords, unnecessary equipment) 4. Place equipment (bed & TV controls, call light, phone, urinal) within reach 5. Encourage patient to wear glasses and hearing aides as appropriate 6. Maintain bed in lowest position 7. Lock wheels on bed/wheelchair 8. Provide adequate lighting, including night light 9. Assess need for additional bedding, food/fluids, pain med's prior to sleep/routinely 10. Provide gripper slippers or personal non-skid footwear 11. Teach patient and patient route sales representative to maintain environment for safety and engage in all aspects of fall prevention program 12. Remind patient to call for help before getting out of bed 13. Initiate bed/chair/exit alarms supportive devices as appropriate, (chair wedge, no-skid floor mat, raised edge mattress, hip protectors) 14. Locate patient bed assignment for optimal visualization 15. Evaluate and identify Safe Patient Handling Equipment needs 16. Provide supervision when out of bed or chair 17. Utilize gait belt as needed to assist with ambulation 18. Place adaptive equipment (cane, walker) within reach 19. Request patient route sales representative bring adaptive equipment/mobility aids from home or obtain and provide as needed 20. Consult pharmacy regarding effects of med's affecting mobility, cognition, and alternatives 21. Obtain physician order for PT if risk factors associated with mobility are present 22. Obtain physician order for OT as appropriate 23. Utilize diversional activities 24. Educate patient and patient route sales representative how to maintain a safe environment during visitationtimes (notify nurse prior to leaving bedside) 25. Consider appropriateness of medical or non-medical affairs leader 26. Set up voiding schedule as appropriate (every 2 hours) Outcome: Progressing Note: Pt's environmental safety maintained. SPH equipment used when appropriate. Pt belongings within reach. Fall risk assessment done and appropriate safety measures taken, i.e.. Nonslip socks, bed alarm, supportive devices etc. when appropriate. Pt's toileting needs assessed with assessments and rounding. Problem: Potential for Compromised Skin Integrity Goal: Skin integrity is maintained or improved Description: Patient's goal is: INTERVENTIONS 1. Perform initial skin assessment on admission and as needed 2. Turn patient every 2 hours and PRN 3. Relieve pressure to bony prominences 4. Avoid shearing 5. Keep skin clean and dry 6. Alternate a full bath with partial baths for elderly 7. Apply lotion/moisturizer on skin 8. Monitor patient's hygiene practices 9. Float heels 10. Collaborate with interdisciplinary team and initiate plans and interventions as needed Outcome: Progressing Note: Skin assessed. Pt position changed every two hours when pt cannot reposition self. Pt encouraged to participate in hygiene practices. Lotion applied when appropriate. Heels and elbows elevated.All concerns reported Goal: Patient's nutritional intake is adequate Description: Patient's goal is: INTERVENTIONS 1. Assess and monitor food intake and supplements, patient food preferences, nausea, vomiting, labs, oral cavity (gums, teeth, tongue, mucosa), proper denture fit, and cultural beliefs 2. Monitor for signs of hypoglycemia and hyperglycemia 3. Collaborate with interdisciplinary team and initiate plan and interventions as ordered 4. Monitor patient's weight 5. Assist patient with meals/food selection 6. Assist patient with eating 7. Allow adequate time for meals 8. Provide pleasant environment during mealtime 9. Increase social contact during mealtimes 10. Plan activities to conserve energy 11. Encourage/perform oral hygiene as appropriate 12. Encourage patient to take dietary supplement as ordered 13. Collaborate with clinical manuscript editor 14. Include patient/ patient's route sales representative in decisions related to nutrition Outcome: Progressing Note: Pt encouraged to increase intake when appropriate and educated on nutrition. Diet regimen followed. Pt assessed for s/s for hyper/hypoglycemia Problem: Urinary Incontinence Goal: Perineal skin integrity is maintained or improved Description: INTERVENTIONS 1. Assess genitourinary system, perineal skin, labs (urinalysis), and history of incontinence to include past management, aggravating, and alleviating factors 2. Keep skin clean and dry 3. Apply skin protectant 4. Develop skin care regimen 5. Provide privacy when changing patients incontinence device to maintain their dignity 6. Consider placing an indwelling catheter 7. Collaborate with interdisciplinary team and initiate plans and interventions as needed Outcome: Progressing Note: Skin clean and dry. Camara/perineal care completed. Labs and continence assessed. * PT/OT/GALLERY MANAGER - Joseph Montenegro PT - 03/13/2025 2:11 PM EDT Physical Therapy Re-Evaluation Discharge Recommendations for Safe Patient Transition PT Discharge Disposition Recommendation: Post acute - moderate PT Home Recommendations: No mobility/ADL assistance at home required, 24 hour caregiver support for:, Intermittent caregiver support for: Current Impairments Informing Therapy Recommendation: Ambulation status/safety, Fall risk, ADL status, Endurance level 6 Clicks: Basic Mobility Turning from your back to your side while in a flat bed without using bed rails?: A lot Moving from lying on your back to sitting on side of flat bed without using bed rails?: A lot Moving to and from bed to a chair (including w/c)?: Total Standing up from a chair using your arms (e.g. w/c or bedside chair)?: Total To walk in hospital room?: Total Climbing 3-5 steps with a railing?: Total Scoring 6 Clicks: Basic Mobility Raw Score: 8 CMS G Code Modifier: CM Therapy Plan Need for skilled Physical Therapy to address deficits in functional mobility due to a status decline resulting from admission to [facility] where pt presented on 02/24 d/t abnormal testing. Imaging demonstrating metastatic disease, +PE/ R LE DVT, UTI. Transfer to 02/25 for further work up. Initial PT evaluation completed 02/27 with discharge as patient independent with mobility. After d/cfrom therapy, Urology consulted d/t R renal mass, GI consulted d/t blood streaks/ metastatic disease 02/26 pt to IR for peritoneal nodule biopsy. 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 03/08 vascular consulted d/t intra-op poor ventilation with B PEs, B LE DVTs. 03/08 pt underwent bronchoscopy 03/09 2nd look exp lap w/ abdominal washout, SBR, end ileostomy creation, wound VAC application. ID following for bacterial peritonitis/ ovarian cystic lesion Oncology following- no systemic cancer treatment until pt recovered from acute illness/ surgeries 03/12 Pt extubated, currently on 4L O2 PT Treatment/Interventions: ADL retraining, Functional transfer training, UE strengthening/ROM, LE strengthening/ROM, Endurance training, Patient/family training, Equipment eval/education, Balance, Bed mobility, Gait training, Functional activities, Neuromuscular reeducation PT Frequency: 4-5days/week (2 person assist) PT Duration: LOS Past Medical History: Diagnosis Date Deep vein thrombosis (CMS-HCC) Past Surgical History: Procedure Laterality Date APPLICATION WOUND VAC MIDSECTION N/A 03/09/2025 Performed by Ghassan Castillo MD at [facility] CLOSURE WOUND ABDOMEN N/A 03/09/2025 Performed by Ghassan Castillo MD at [facility] ILEOSTOMY CREATION N/A 03/09/2025 Performed by Ghassan Castillo MD at [facility] LAPAROTOMY EXPLORATORY N/A 03/09/2025 Performed by Ghassan Castillo MD at [facility] LAPAROTOMY EXPLORATORY N/A 03/07/2025 Performed by Ghassan Castillo MD at [facility] RESECTION BOWEL SMALL N/A 03/09/2025 Performed by Ghassan Castillo MD at [facility] SALPINGO-OOPHORECTOMY Bilateral 03/07/2025 Performed by Faith Celis MD at [facility] TOTAL COLECTOMY N/A 03/07/2025 Performed by Ghassan Castillo MD at [facility] Assessment Patient Assessment Therapy Problem List: Decreased ADL status, Decreased balance, Decreased endurance, Decreased grossmotor, Decreased high-level ADLs, Decreased mobility, Decreased safe judgement during ADL, Decreased LE strength, Decreased UE strength Patient Response to Treatment: Slow progress, medical status limitations, Slow progress, decreased activity tolerance Mood/Affect: Appropriate for circumstances Rehab Prognosis: Good, With continued PT status post acute discharge Visit RN Communication: Yes Medical Record Reviewed: Yes PT Type of Visit: Re-Evaluation Precautions Activity: early mobility / pass Equipment: maxi audra with repositioning sling, NG tube feeds, wound vack, camara, IVs 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 Oxygen Used: 4L O2 per NC Other: high fall risk Pain Assessment Pain Assessment: 0-10 Pain Score: 4 Observed Behavior: Grimacing (nauseous) Pain Location: Abdomen Pain Intervention(s): Repositioned, Distraction, Emotional support Response to Interventions: Pain unchanged, Quiet Pain 2 Observed Behavior: Grimacing (nauseous) Home Living Type of Home: House Other : Please refer to PT initial evaluation 02/27 Prior Function Lives With: Alone Other: Please refer to PT initial evaluation 02/27 ADL / IADL Hand Dominance: Right Hearing / Speech / Vision Hearing: Within Functional Limits Speech: Within Functional Limits Current Vision: Wears glasses all the time Cognition Overall Cognitive Status: Exceptions to Within Functional Limits Arousal/Alertness: Appropriate responses to stimuli Attention Span: Attends with cues to redirect Memory: Decreased recall of recent events, Decreased short term memory Orientation Level: Oriented X4 Following Commands: Follows one step commands consistently Problem Solving: Reduced Sensation Overall Sensation Status: (pt denies numbness / tingling) Bed Mobility Other: Patient up in chair via maxi audra with nursing staff prior to therapy arrival. Transfers Other: Patient unable to complete, unable to sit unsupported due to weakness and nausea Gait Other: not appropriate at this time Balance Balance Evaluation: Exceptions to Functional Limits Sitting Balance: Static: Poor RLE Assessment: Exceptions to WFL RLE Strength RLE Overall Strength: Deficits, Due to pain (3-/5 throughout) LLE Assessment: Exceptions to WFL LLE Strength LLE Overall Strength: Deficits, Due to pain (3-/5 throughout) Activity Tolerance Endurance: Tolerates <30 minutes activity WITHOUT vital sign changes Other: Patient limited by pain, nausea Plan Physical Therapy Care Plan Physical Therapy Care Plan (Active) Template: PT - Physical Therapy Problem: Activity Tolerance Dates: Start: 03/13/25 Disciplines: PT Goal: Tolerate > 30 minutes of activity WITH rest breaks Dates: Start: 03/13/25 Expected End: 04/10/25 Description: Goal Description: Patient to perform functional range / strength exercises to improve functional strength, balance and activity tolerance for improved independence and safety with mobility. Disciplines: PT Problem: Bed Mobility Dates: Start: 03/13/25 Disciplines: PT Goal: Patient will perform bed mobility with Minimum Assist Dates: Start: 03/13/25 Expected End: 04/10/25 Description: Goal Description: Disciplines: PT Problem: Gait Dates: Start: 03/13/25 Disciplines: PT Goal: Patient will perform gait with Minimum Assist Dates: Start: 03/13/25 Expected End: 04/10/25 Description: With__RW__,__25__feet Goal Description: Disciplines: PT Problem: Sitting Balance Dates: Start: 03/13/25 Disciplines: PT Goal: Improve balance to fair Dates: Start: 03/13/25 Expected End: 04/10/25 Description: Static Dynamic Disciplines: PT Problem: Standing Balance Dates: Start: 03/13/25 Disciplines: PT Goal: Improve balance to fair Dates: Start: 03/13/25 Expected End: 04/10/25 Description: Improve standing balance to fair+ with UE support to minimize fall risk. Disciplines: PT Problem: Strength Dates: Start: 03/13/25 Disciplines: PT Goal: Improve strength Dates: Start: 03/13/25 Expected End: 04/10/25 Description: Of extremity/ location: bilat LE to WFL To facilitate: Disciplines: PT Problem: Transfers Dates: Start: 03/13/25 Disciplines: PT Goal: Patient will perform transfers with Minimum Assist Dates: Start: 03/13/25 Expected End: 04/10/25 Description: Goal Description: Patient to perform mobility with good safety awareness. Disciplines: PT Physical Therapy Care Plan (Resolved) There are no resolved problems. Principal Problem: DVT (deep venous thrombosis) ([facility]-HCC) Active Problems: Colon cancer screening Hematochezia * PT/OT/GALLERY MANAGER - Kristin Smith OTR/L - 03/13/2025 11:51 AM EDT Occupational Therapy Re-Evaluation Discharge Recommendations for Safe Patient Transition OT Discharge Disposition Recommendation: Post acute - moderate OT Post Acute Moderate Rehab Needs: Recommend moderate intensity rehab, Tolerate 1-2 hrs of therapy3-5 days/wk Current Impairments Informing Therapy Recommendation: Ambulation status/safety, Fall risk, ADL status, Endurance level 6 Clicks: Daily Activity Putting on and taking off regular lower body clothing?: Total Bathing (including washing, rinsing, drying)?: A lot Toileting, which includes using toilet, bedpan or urinal?: Total Putting on and taking off regular upper body clothing?: A lot Taking care of personal grooming such as brushing teeth?: A lot Eating meals?: Total Scoring Daily Activity Raw Score: 9 CMS G Code Modifier: CL Pt admit to [facility] 02/25/25 from [facility] where pt presented on 02/24 d/t abnormal testing. Imaging demonstrating metastatic disease, +PE/ R LE DVT, UTI PT/OT evaluated pt on 02/27 and recommended home with no further acute therapy needs after evaluation. After pt discharged from therapy evaluations Urology consulted d/t R renal mass, GI consulted d/t blood streaks/ metastatic disease Pt went to IR 02/26 for peritoneal nodule biopsy which was consistent w/ mucinous adenocarcinoma- colorectal as origin, pt went to IR 02/28/25 for paracentesis w/ 1800 ml fluid removed 03/06/25 nephrology consulted for TASHA and palliative care consulted for cancer related pain d/t new colon cancer diagnosis w/ mets 03/07/25 colorectal surgery consulted d/t recent repeat imaging demonstrating obstruction at the sigmoid colon and recommend emergent surgery but INR 4.2 s/p reversal OR 03/07 for exp lap w/ total colectomy w/ B salpingo-oophorectomy and ABThera placed; pt left in discontinuity; pt w/ intra-op complication of decreased ventilation, pressor requirement and eventual cardiac arrest s/p CPR x 2 rounds w/ ROSC. 03/08/25 vascular consulted d/t B PE/ B DVTs, pt on heparin drip 03/08/25 bronchoscopy 03/09/25 2nd look exp lap w/ abdominal washout, small bowel resection, end ileostomy creation and wound VAC application Infectious disease following for bacterial peritonitis, ovarian cystic lesion; oncology following but no plans for systemic cancer treatment until pt healed from acute illness/ surgeries. Pt extubated 03/12/25 Past Medical History: Diagnosis Date Deep vein thrombosis ([facility]-HCC) Past Surgical History: Procedure Laterality Date APPLICATION WOUND VAC MIDSECTION N/A 03/09/2025 Performed by Ghassan Castillo MD at [facility] CLOSURE WOUND ABDOMEN N/A 03/09/2025 Performed by Ghassan Castillo MD at [facility] ILEOSTOMY CREATION N/A 03/09/2025 Performed by Ghassan Castillo MD at [facility] LAPAROTOMY EXPLORATORY N/A 03/09/2025 Performed by Ghassan Castillo MD at [facility] LAPAROTOMY EXPLORATORY N/A 03/07/2025 Performed by Ghassan Castillo MD at [facility] RESECTION BOWEL SMALL N/A 03/09/2025 Performed by Ghassan Castillo MD at [facility] SALPINGO-OOPHORECTOMY Bilateral 03/07/2025 Performed by Faith Celis MD at [facility] TOTAL COLECTOMY N/A 03/07/2025 Performed by Ghassan Castillo MD at [facility] Therapy Plan Need for skilled Occupational Therapy to address deficits in ADL independence and functional mobility due to a status decline resulting from decreased endurance, strength and balance d/t prolonged hospitalization with deconditioning. OT Treatment/Interventions: ADL retraining, Functional transfer training, UE strengthening/ROM, Endurance training, Patient/family training, Equipment eval/education, Balance, Bed mobility, Gait training, Compensatory technique education, Functional activities OT Frequency: 4-5days/week (2 person assist) OT Duration: length of stay Assessment Patient Assessment Therapy Problem List: Decreased ADL status, Decreased balance, Decreased endurance, Decreased high-level ADLs, Decreased mobility, Decreased safe judgement during ADL, Decreased self-care trans, Decreased UE strength Patient Response to Treatment: Slow progress, decreased activity tolerance Mood/Affect: Appropriate for circumstances Rehab Prognosis: Good, With continued OT status post acute discharge Visit RN Communication: Yes Medical Record Reviewed: Yes OT Type of Visit: Re-Evaluation Precautions Activity: early mobility guideline:yes, pass Equipment: Riskalyze 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 Oxygen Order : spo2 90% or higher with 0-4L Oxygen Used: 4L Other: high fall risk- NPO/ NG tube to suction, tube feeds, R IJ line, camara catheter/ ileostomy, abdominal wound w/ wound VAC, heparin gtt Pain Assessment Pain Assessment: 0-10 Pain Score: 4 Pain Location: Abdomen Pain Intervention(s): Repositioned, Distraction, Emotional support Response to Interventions: Pain unchanged, Quiet Home Living Other : please see initial OT eval from 02/27/25 Prior Function Other: please see initial OT eval from 02/27/25 ADL / IADL Hand Dominance: Right Where Assessed: Chair Eating Assistance: Total assist (NPO/ tube feeds) Grooming Assistance: Max assist (seated upright in recliner chair w/ back support) Grooming Deficit: Wash/dry face Bathing/Showering Assistance: Max assist, Total assist (max assist upper body; total assist lower body and back side) Toilet/Commode Assistance: Total assist (camara catheter/ ileostomy) UE Dressing Assistance: Max assist LE Dressing Assistance: Total assist Footwear Assistance: Total assist Footwear Deficit: R sock, L sock Hearing / Speech / Vision Hearing: Within Functional Limits Speech: Within Functional Limits Current Vision: Wears glasses all the time (glasses not present this date) Cognition Overall Cognitive Status: Exceptions to Within Functional Limits Arousal/Alertness: Appropriate responses to stimuli Attention Span: Attends with cues to redirect Memory: Decreased recall of recent events Orientation Level: Oriented X4 Following Commands: Follows one step commands consistently Sensation Overall Sensation Status: (pt denies numbness/tingling) Bed Mobility Other: pt up in the chair via Riskalyze w/ nursing staff prior to arrival for visit- pt unsure on how long she has been in the chair the morning Transfers Other: unable to complete d/t fatigue, weakness and nausea Gait Other: not appropriate at this time Balance Balance Evaluation: Exceptions to Functional Limits Sitting Balance: Static: Poor Other: pt able to sit up in chair at about 55-60 degrees for 3-5 minutes but w/ increased nausea and dry heaving. pt provided cool wash cloth for head/ face and smell alcohol swab with improvement insyptoms. pt unable to tolerate progressing to unsupported sitting in the chair d/t fatigue, weakness and nausea. RUE Assessment: Exceptions to WFL RUE Strength R Shoulder Flexion: 3-/5 R Elbow Flexion: 3+/5 R Wrist Extension: 3+/5 R Metal Roaster: 3/5 LUE Assessment: Exceptions to WFL LUE Strength L Shoulder Flexion: 3-/5 L Elbow Flexion: 3/5 L Wrist Extension: 3/5 L Metal Roaster: 3/5 Activity Tolerance Endurance: Tolerates <30 minutes activity WITHOUT vital sign changes Other: pt limited by fatigue, nausea 03/13/25 1112 UE ROM UE ROM exercises performed? Yes Shoulder flexion/extension x Elbow flexion/extension x Wrist flexion/extension x Digital flexion/extension x Other AROM except AAROM B shoulders; fair tolerance d/t rest breaks needed secondary from fatigue, nausea Repetitions 10 Plan Occupational Therapy Care Plan Occupational Therapy Care Plan (Active) Template: OT - Occupational Therapy Problem: Activity Tolerance Dates: Start: 03/13/25 Disciplines: OT Goal: Tolerate > 30 minutes of activity WITHOUT rest breaks Dates: Start: 03/13/25 Expected End: 04/04/25 Description: Goal Description: Disciplines: OT Problem: Bathing LB Dates: Start: 03/13/25 Disciplines: OT Goal: Patient will perform bathing LB with Minimum Assist Dates: Start: 03/13/25 Expected End: 04/04/25 Description: Goal Description: Disciplines: OT Problem: Bathing UB Dates: Start: 03/13/25 Disciplines: OT Goal: Patient will perform bathing UB with Minimum Assist Dates: Start: 03/13/25 Expected End: 04/04/25 Description: Goal Description: Disciplines: OT Problem: Bed Mobility Dates: Start: 03/13/25 Disciplines: OT Goal: Patient will perform bed mobility with Minimum Assist Dates: Start: 03/13/25 Expected End: 04/04/25 Description: Goal Description: Disciplines: OT Problem: Dressing LB Dates: Start: 03/13/25 Disciplines: OT Goal: Patient will perform dressing LB with Minimum Assist Dates: Start: 03/13/25 Expected End: 04/04/25 Description: Goal Description: Disciplines: OT Problem: Dressing UB Dates: Start: 03/13/25 Disciplines: OT Goal: Patient will perform dressing UB with Stand By Assist Dates: Start: 03/13/25 Expected End: 04/04/25 Description: Goal Description: Disciplines: OT Problem: Functional Mobility Dates: Start: 03/13/25 Disciplines: OT Goal: Patient will perform functional mobility with Minimum Assist Dates: Start: 03/13/25 Expected End: 04/04/25 Description: Goal Description: Disciplines: OT Problem: Grooming Dates: Start: 03/13/25 Disciplines: OT Goal: Patient will perform grooming with Stand By Assist Dates: Start: 03/13/25 Expected End: 04/04/25 Description: Goal Description: Disciplines: OT Problem: Sitting Balance Dates: Start: 03/13/25 Disciplines: OT Goal: Improve balance to good Dates: Start: 03/13/25 Expected End: 04/04/25 Description: Demo good sitting balance 100% of the time Disciplines: OT Problem: Standing Balance Dates: Start: 03/13/25 Disciplines: OT Goal: Improve balance to fair Dates: Start: 03/13/25 Expected End: 04/04/25 Description: Demo fair standing balance w/ use of AD for 3-5 minutes Disciplines: OT Problem: Strength Dates: Start: 03/13/25 Disciplines: OT Goal: Improve strength Dates: Start: 03/13/25 Expected End: 04/04/25 Description: Of extremity/ location:demo 5/5 strength B UEs To facilitate: Disciplines: OT Problem: Toilet Transfers Dates: Start: 03/13/25 Disciplines: OT Goal: Patient will perform toilet transfers with Minimum Assist Dates: Start: 03/13/25 Expected End: 04/04/25 Description: Goal Description: Disciplines: OT Problem: Toileting Dates: Start: 03/13/25 Disciplines: OT Goal: Patient will perform toileting with Minimum Assist Dates: Start: 03/13/25 Expected End: 04/04/25 Description: Goal Description: Disciplines: OT Problem: Transfers Dates: Start: 03/13/25 Disciplines: OT Goal: Patient will perform transfers with Minimum Assist Dates: Start: 03/13/25 Expected End: 04/04/25 Description: Goal Description: Disciplines: OT Occupational Therapy Care Plan (Resolved) There are no resolved problems. Principal Problem: DVT (deep venous thrombosis) (CMS-HCC) Active Problems: Colon cancer screening Hematochezia * Wound Care - Vonda Tucker RN - 03/13/2025 9:30 AM EDT Images from the original note were not included. Enterostomal Therapy Diagnosis: Open abdomen Surgical Procedure: Exploratory laparotomy Abdominal washout Resection of small bowel End ileostomy creation Application of wound VAC OR Date: 03-09-2026 Surgeon: Dr. Castillo Assessment: Pt is sitting in chair alert x3. She observes entire pouch prep and change. I verbalised each step of pouch change. Much support provided. The stoma is red, viable with intact mucocutaneous junction. There is watery brown stool to the pouch. - likely residual and not active bowels yet. Education: Full pouch change lesson demonstrated: including ostomy pouch and barrier ring. Discussed that thiswould typically be done every 4 to 5 days if wearing a drainable pouch WNL stoma and peristomal assessment. Anatomy of colostomy surgery. Lesson # 1 Who was Present: Patient Supplies: Coloplast one piece flat pouch #[id number] Coloplast barrier ring #[id number] ET will continue follow Mon-Fri for ostomy support and teaching. Ostomy supplies at bedside. Patient may call outpatient ostomy clinic for any ongoing ostomy concerns, issues or questions after DC. Outpatient Ostomy Clinic [facility] Entrance D [address] [address] #[phone] Stoma Complete vac dressing complete as well. Pt was premedicated for pain and tolerated the dressing change very well. The wound bed is red, clean with serosang drainage. Perimeters are with tissue traumafrom being in contact with the sponge / suction. Silver sponge applied and continuous neg pressure of 125mmHg obtained. Will follow Abdominal wound [id number] * Plan of Care - Oracio Solorio RN - 03/12/2025 8:17 PM EDT Problem: Discharge Planning Goal: Discharge to post-acute care, other facility, or home with appropriate resources Description: Patient's goal is: INTERVENTIONS 1. Conduct assessment to determine patient/family and health care team treatment goals, and need for post-acute services based on payer coverage, community resources, and patient preferences, and barriers to discharge 2. Coordinate with Social work, Care Navigation, and Utilization Review to arrange appropriate level of services according to patient's needs based on patient preference and payer coverage in collaboration with the physician and health care team 3. Address psychosocial, clinical, and financial barriers to discharge as identified in assessment in conjunction with the patient/family and health care team 4. Consult appropriate ancillary services (i.e.. PT/OT/ST, etc) as needed 5. Communicate with and update the patient/family, physician, and health care team regarding progress on the discharge plan 6. Identify discharge learning needs (meds, wound care, etc). 7. Arrange for needed discharge transportation as appropriate Outcome: Progressing Note: Evaluation of progress towards goal: Patient interdisciplinary team will ensure adequate discharge resource. Problem: Safety - Medical Restraint Goal: Remains free of injury from restraints (Restraint for Interference with Structures Assembler) Description: INTERVENTIONS: 1. Determine that other, less restrictive measures have been tried or would not be effective beforeapplying the restraint 2. Evaluate the patient's condition at the time of restraint application 3. Inform patient/family regarding the reason for restraint 4. Q2H: Monitor safety, Vital signs, psychosocial status, signs of injury, skin integrity, circulation, neurovascular status in affected extremities, respiratory status, comfort, nutrition and hydration, hygiene, ROM, elimination needs 5. Doctor will be notified of restraint 6. RN properly applies restraints per physician order Outcome: Completed Note: Evaluation of progress towards goal: Patient not in restraint on initial assessment. Goal: Free from restraint(s) (Restraint for Interference with Structures Assembler) Description: INTERVENTIONS: 1. ONCE/SHIFT or MINIMUM Q12H: Assess and document the continuing need for restraints 2. Order is valid for the duration of the episode of care 3. Discontinue at the earliest possible time once the reason for restraints no longer exists 4. Identify and implement measures to help patient regain control 5. Food, fluids, and toilet offered at a minimum of every 2 hours 6. RN modifies the patient's plan of care by entering a problem statement related to safety; individualizes the safety outcome Outcome: Completed Note: Patient not in restraint on initial assessment. * Wound Care - Vonda Tucker RN - 03/12/2025 12:30 PM EDT Enterostomal Therapy Consulted to see pt for KCI vac dressing changes. Focused chart review complete to find that the vac was applied in OR on 03-09-2025. Will plan for vac dressing change 03-13-2025 to get pt on a / change schedule. The current vac dressing is intact at continuous neg pressure of 125mmHG serosang drainage in canister. The ileostomy has watery brown stool to pouch. The pouch is well intact. She is currently intubatedand not appropriate for an ostomy lesson at this time. Will continue to follow. * Plan of Care - Waqar Bourne RCP - 03/12/2025 9:58 AM EDT Extubation Time-Out Process Date of Time-Out Process: 03/12/2025 Time-Out Process Check List: Time-Out performed, Verified patient identification, and Verified procedure Reason Reason: No perceived need for further ventilatory support Technical Description Pre-extubation status: meets required criteria Pre-extubation assessment Rapid breathing index: <85 Negative inspiratory force (NIF): 20-40 Gag reflex: Moderate T-piece trial: Tolerated for >= 120 mins without problem Vital Capacity: 10-15ml/kg Cuff test: Able to breathe around deflated cuff Preparation:placed in sitting position , lungs inflated prior to tube removal, pharynx suctioned prior to cuff deflation, and placed on supplemental oxygen Evaluation Air movement: satisfactory Oxygenation: satisfactory Hemodynamics: hemodynamically stable throughout Outcome: placed on supplemental oxygen Procedure Information This procedure was performed independently of the time included in today's admission/progress note(s) Problem: Alternate Airway Goal: ET tube will be managed safely Description: INTERVENTIONS 1. Assess and monitor insertion depth at lip/nare line 2. Utilize ETT securing device and change as necessary to ensure ETT is properly secured to patient 3. Keep resuscitation bag, mask, oxygen connection tubing, and extra ETT readily available; accompanying patient at all times 4. Reposition ET tube to opposite side of mouth 5. Support ventilator tubing to avoid pressure from drag of tubing 6. Monitor cuff pressure to maintain adequate seal 03/12/2025 [id number] by UGO Zavaleta Outcome: Completed 03/12/2025819 by UGO Zavaleta Outcome: Progressing Note: Evaluation of progress towards goal: ETT secure. * Plan of Care - Waqar Bourne RCP - 03/12/2025 8:20 AM EDT Respiratory Therapy Clinical Practice Guidelines Consult Clinical Practice Guidelines Ordered Consult Assessment: Consult, Broncho-pulmonary hygiene, Bronchodilator, Mechanical ventilator Oxygen Indications: Post op Broncho-pulmonary Hygiene Indications: Inability/reluctance to change body position Broncho-pulmonary Hygiene Total: 1 Vital Signs Heart Rate Source: Monitor O2 Device: Endotracheal tube Respiratory Assessment Assessment Type: Assess only Respiratory Pattern: Regular Chest Assessment: Chest expansion symmetrical Bilateral Breath Sounds: Clear, Diminished Oral Suctioning/Secretions Oral Suction Type: Oral Oral Suction Device: Soft tip Oral Secretion Amount: Small Oral Secretion Color: Clear, White Oral Secretion Consistency: Thin Oral Suction Tolerance: Tolerated well Oral Suctioning Adverse Effects: None Patient Active Problem List Diagnosis DVT (deep venous thrombosis) ([facility]) Colon cancer screening Hematochezia Last Chest XRAY: Reviewed RT Reassessment Due In: 12 hours Mechanical Ventilator Broncho-Pulmonary Hygiene Breath Sounds Level 1: Slightly Diminished or clear Chest X-Ray Level 1: Possible signs of consolidation and/or atelectasis or clear Sputum Production Level 1: None or small amount of thin or watery secretions with suctioning History & Physical Level 1: None New onset of bronchitis or existing chronic pulmonary condition. * (not in an exacerbation) Patients Current Level & Intervention: Level 1: No BP hygiene indicated. Continue suctioning every 4 hours Problem: Alternate Airway Goal: ET tube will be managed safely Description: INTERVENTIONS 1. Assess and monitor insertion depth at lip/nare line 2. Utilize ETT securing device and change as necessary to ensure ETT is properly secured to patient 3. Keep resuscitation bag, mask, oxygen connection tubing, and extra ETT readily available; accompanying patient at all times 4. Reposition ET tube to opposite side of mouth 5. Support ventilator tubing to avoid pressure from drag of tubing 6. Monitor cuff pressure to maintain adequate seal Outcome: Progressing Note: Evaluation of progress towards goal: ETT secure. * Plan of Care - Alfredo Slater RCP - 03/11/2025 11:22 PM EDT Problem: Alternate Airway Goal: ET tube will be managed safely Description: INTERVENTIONS 1. Assess and monitor insertion depth at lip/nare line 2. Utilize ETT securing device and change as necessary to ensure ETT is properly secured to patient 3. Keep resuscitation bag, mask, oxygen connection tubing, and extra ETT readily available; accompanying patient at all times 4. Reposition ET tube to opposite side of mouth 5. Support ventilator tubing to avoid pressure from drag of tubing 6. Monitor cuff pressure to maintain adequate seal Outcome: Progressing Note: Evaluation of progress towards goal: Reviewed, patient remains intubated. ETT secured and stable, suction Q4 and PRN. Tolerating well. Will CPAP as tolerated and continue to monitor. Respiratory Therapy Clinical Practice Guidelines Consult Vital Signs Temp: 37 ??C (98.6 ??F) Pulse: 94 Heart Rate Source: Monitor Resp: 21 SpO2: 97 % O2 Device: Endotracheal tube FiO2 (%): 40 % EtCO2 (mmHg): 35.9 mmHg ETCO2 Alarm - High: 50 ETCO2 Alarm - Low: 20 Patient Position: Semi-fowlers Respiratory Assessment Assessment Type: Assess only Level of Consciousness: Responds to Voice, Responds to Pain Respiratory Pattern: Regular Chest Assessment: Chest expansion symmetrical Bilateral Breath Sounds: Clear, Diminished Suctioning Suction: Oral, ET Tube Oral Suctioning/Secretions Oral Suction Type: Oral Oral Suction Device: Soft tip Oral Secretion Amount: Scant Oral Secretion Color: Clear Oral Secretion Consistency: Thin Oral Suction Tolerance: Tolerated well Oral Suctioning Adverse Effects: None Airway Suctioning/Secretions Airway Suction Type: Endotracheal tube Airway Suction Device : Inline Airway Secretion Amount: Scant Airway Secretion Color: Clear Airway Secretion Consistency: Thin Airway Suction Tolerance: Tolerated well Airway Suctioning Adverse Effects: None Readings Vt (observed, mL): 0.4 mL Avea Vt Mandatory Exp (L): 0.33 Minute Ventilation (L/min): 7.32 L/min PIP Observed (cm H2O): 21 cm H2O Total Rate : 20 MAP (cm H2O): 13 CM H20 EtCO2 (mmHg): 35.9 mmHg Plateau Pressure (cm H2O): 19 cm H2O I:E Readin:2.3 Static Compliance (L/cm H2O): 33.79 Dynamic Compliance (L/cm H2O): 22.42 L/cm H2O Patient Active Problem List Diagnosis DVT (deep venous thrombosis) ([facility]) Colon cancer screening Hematochezia Last Chest XRAY: Reviewed Pulmonary History: Former smoker RT Reassessment Due In: 12 hours Mechanical Ventilator Broncho-Pulmonary Hygiene Breath Sounds Level 1: Slightly Diminished or clear Chest X-Ray Level 1: Possible signs of consolidation and/or atelectasis or clear Sputum Production Level 1: None or small amount of thin or watery secretions with suctioning History & Physical Level 1: None New onset of bronchitis or existing chronic pulmonary condition. * (not in an exacerbation) Patients Current Level & Intervention: Level 1: No BP hygiene indicated. Continue suctioning every 4 hours Intervention Mode Selected: Mechanical Ventilator Bronchodilator Breath Sounds Level 1: Clear or occasional minimal wheezing Respiratory History Level 2: Positive risk factors include but not limited to - HX of smoking ; Hx of pulmonary complications ; Smoke inhalation ; physical/chemical trauma to the lung or upper airway Peak Pressures Level 1: Less than 25 cm H2O Peak Minus Plateau Pressure Level 1: 3 cm H2O or less Other Considerations for adventitious breath sounds, elevated peak pressures and peak/plateau difference. Endotracheal tube too small, tube kinked/Foreign body in the lumen Partial cuff herniation Secretions and/or mucus plugging Tracheal malacia or stenosis Patients Current Level & Intervention: 1 Every 4 hours PRN for wheezing * Discharge Planning Note - Mimi Peters RN - 03/11/2025 3:53 PM EDT Ongoing Assessment for Discharge Needs Reviewed discharge milestones and patient needs related to discharge plan. Current estimated discharge date of Unknown has been reviewed by treatment team. Anticipated LTACH need. Discussed with provider. Attempted to meet with family at bedside but they are no longer in the room. Left LTACH list at bedside and updated bedside RN. Ongoing Assessment for Discharge Needs Flowsheet Row Most Recent Value Referral To Community Referrals / Resources Provided Denies needs Services Requested Patient expects to be discharged to: home Does the patient wish to have family/friend/caregiver involved in their discharge planning? No, thepatient does not wish to have family/friend/caregiver involved in their discharge planning Discharge Disposition Home with self care Does the patient need discharge transportation arranged? No - Mimi Peters RN 03/11/25 3:54 PM * Query Response - Dario Burris MD - 03/11/2025 9:37 AM EDT Query Response Note CDI QUERY TEXT: Present On Admission [id number] Disclaimer: By submitting this query, we are merely seeking further clarification of documentation to accurately reflect all conditions that you are monitoring, evaluating, treating or that extend the hospitalization or utilize additional resources of care. Please utilize your independent clinical judgment when addressing the question(s) below. Sepsis was not documented in the Medical Record until Mar 06. Upon further study, please clarify: Please clarify [ ]She was treated for sepsis that was present or evolving on admission [ ]She was treated for sepsis that developed after admission [ ] Unable to Determine if Sepsis was present or evolving upon admission [ ]Other (please specify) The patient's Clinical Indicators include: Per H&P, new pelvic mass c/f metastatic disease . Per Dr. Branch/ Dr. Burris's Notes. Urinary tract infection/bacterial peritonitis S/P paracentesis 02/28/2025 - nucleated cells are elevated at 1900 with neutrophil predominance (60%) - this is consistent with bacterial peritonitis Per Sr. 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 5 Surgery with resected bowel . Total Colectomy and BSO. Patient experienced Cardiac Arrest. Sept. 7 Surgery with Abdominal washout and Resection of small bowel with ileostomy creation Feb 24, WBC 19.7 and 20.6. Feb 26, WBC 12.5. Feb 27, WBC 10.8. Sept 4, WBC 15.4 Sept 5, WBC 17.9 Sept 6, WBC 19. IV Antibiotics: Rocephin. Flagyl. Pressors: Pitressin, Adrenalin. Levophed Thank you, Augustina Garcia RN, BSN. Clinical Documentation Integrity . [email or web address]. CDI RESPONSE TEXT: Sepsis present on admission Query created by: Augustina Garcia on 03/11/2025 8:08 AM Electronically signed by: Dario Burris MD 03/11/2025 9:35 AM * Plan of Care - Lyudmila Rivera [facility] - 03/11/2025 8:42 AM EDT Problem: Alternate Airway Goal: ET tube will be managed safely Description: INTERVENTIONS 1. Assess and monitor insertion depth at lip/nare line 2. Utilize ETT securing device and change as necessary to ensure ETT is properly secured to patient 3. Keep resuscitation bag, mask, oxygen connection tubing, and extra ETT readily available; accompanying patient at all times 4. Reposition ET tube to opposite side of mouth 5. Support ventilator tubing to avoid pressure from drag of tubing 6. Monitor cuff pressure to maintain adequate seal Outcome: Progressing Note: Evaluation of progress towards goal: Flaco securing ETT Respiratory Therapy Clinical Practice Guidelines Consult Clinical Practice Guidelines Ordered Consult Assessment: Consult, Broncho-pulmonary hygiene, Mechanical ventilator, Oxygen Oxygen Indications: Post op Broncho-pulmonary Hygiene Indications: Inability/reluctance to change body position Broncho-pulmonary Hygiene Total: 1 Vital Signs Temp: 36.7 ??C (98.1 ??F) Pulse: 81 Heart Rate Source: Monitor Resp: 20 SpO2: 98 % O2 Device: Endotracheal tube FiO2 (%): 40 % EtCO2 (mmHg): 39 mmHg ETCO2 Alarm - High: 50 ETCO2 Alarm - Low: 20 Patient Position: Semi-fowlers Respiratory Assessment Assessment Type: Subsequent assessment Level of Consciousness: Sedated, Responds to Voice, Responds to Pain Respiratory Pattern: Regular Chest Assessment: Chest expansion symmetrical Bilateral Breath Sounds: Clear, Diminished Cough Cough: Induced, Weak, Productive Suctioning Suction: Oral, ET Tube Oral Suctioning/Secretions Oral Suction Type: Oropharyngeal Oral Suction Device: Soft tip, Tonsil tip, Catheter Oral Secretion Amount: Scant Oral Secretion Color: Clear Oral Secretion Consistency: Thin Oral Suction Tolerance: Tolerated well Oral Suctioning Adverse Effects: None Airway Suctioning/Secretions Airway Suction Type: Endotracheal tube Airway Suction Device : Inline Airway Secretion Amount: Scant Airway Secretion Color: White, Clear Airway Secretion Consistency: Thin Airway Suction Tolerance: Tolerated well Airway Suctioning Adverse Effects: None Readings Vt (observed, mL): 0.4 mL Avea Vt Mandatory Exp (L): 0.38 Minute Ventilation (L/min): 7.57 L/min PIP Observed (cm H2O): 24 cm H2O Total Rate : 20 MAP (cm H2O): 15 CM H20 EtCO2 (mmHg): 39 mmHg Plateau Pressure (cm H2O): 23 cm H2O I:E Readin:2.3 Static Compliance (L/cm H2O): 28.01 Dynamic Compliance (L/cm H2O): 26.96 L/cm H2O Patient Active Problem List Diagnosis DVT (deep venous thrombosis) ([facility]) Colon cancer screening Hematochezia Last Chest XRAY: Reviewed Pulmonary History: former smoker RT Reassessment Due In: 12 hours Mechanical Ventilator Broncho-Pulmonary Hygiene Breath Sounds Level 1: Slightly Diminished or clear Chest X-Ray Level 1: Possible signs of consolidation and/or atelectasis or clear Sputum Production Level 1: None or small amount of thin or watery secretions with suctioning History & Physical Level 1: None New onset of bronchitis or existing chronic pulmonary condition. * (not in an exacerbation) Patients Current Level & Intervention: Level 1: No BP hygiene indicated. Continue suctioning every 4 hours * Plan of Care - Alfredo Slater RCP - 03/10/2025 9:38 PM EDT Problem: Alternate Airway Goal: ET tube will be managed safely Description: INTERVENTIONS 1. Assess and monitor insertion depth at lip/nare line 2. Utilize ETT securing device and change as necessary to ensure ETT is properly secured to patient 3. Keep resuscitation bag, mask, oxygen connection tubing, and extra ETT readily available; accompanying patient at all times 4. Reposition ET tube to opposite side of mouth 5. Support ventilator tubing to avoid pressure from drag of tubing 6. Monitor cuff pressure to maintain adequate seal Outcome: Progressing Note: Evaluation of progress towards goal: Reviewed, patient remains intubated. ETT secured and stable, suction Q4 and PRN. Tolerating well. Will CPAP as tolerated and continue to monitor. Respiratory Therapy Clinical Practice Guidelines Consult Vital Signs Temp: 36.7 ??C (98.1 ??F) Pulse: 88 Heart Rate Source: Monitor Resp: 23 SpO2: 94 % O2 Device: Endotracheal tube FiO2 (%): 40 % EtCO2 (mmHg): (!) 32.2 mmHg ETCO2 Alarm - High: 50 ETCO2 Alarm - Low: 20 Patient Position: Semi-fowlers Respiratory Assessment Assessment Type: Assess only Level of Consciousness: Sedated, Responds to Voice, Responds to Pain Respiratory Pattern: Regular Chest Assessment: Chest expansion symmetrical Bilateral Breath Sounds: Clear, Diminished Suctioning Suction: Oral, ET Tube Oral Suctioning/Secretions Oral Suction Type: Oropharyngeal Oral Suction Device: Soft tip Oral Secretion Amount: Scant Oral Secretion Color: Clear Oral Secretion Consistency: Thin Oral Suction Tolerance: Tolerated well Oral Suctioning Adverse Effects: None Airway Suctioning/Secretions Airway Suction Type: Endotracheal tube Airway Suction Device : Inline Airway Secretion Amount: Scant Airway Secretion Color: Clear Airway Secretion Consistency: Thin Airway Suction Tolerance: Tolerated well Airway Suctioning Adverse Effects: None Readings Vt (observed, mL): 0.4 mL Avea Vt Mandatory Exp (L): 0.38 Minute Ventilation (L/min): 7.33 L/min PIP Observed (cm H2O): 25 cm H2O Total Rate : 20 MAP (cm H2O): 17 CM H20 EtCO2 (mmHg): (!) 32.2 mmHg Plateau Pressure (cm H2O): 23 cm H2O I:E Readin:2.3 Static Compliance (L/cm H2O): 32.32 Dynamic Compliance (L/cm H2O): 23.38 L/cm H2O Patient Active Problem List Diagnosis DVT (deep venous thrombosis) ([facility]) Colon cancer screening Hematochezia Last Chest XRAY: Reviewed Pulmonary History: Former smoker RT Reassessment Due In: 12 hours Mechanical Ventilator Broncho-Pulmonary Hygiene Breath Sounds Level 1: Slightly Diminished or clear Chest X-Ray Level 1: Possible signs of consolidation and/or atelectasis or clear Sputum Production Level 1: None or small amount of thin or watery secretions with suctioning History & Physical Level 1: None New onset of bronchitis or existing chronic pulmonary condition. * (not in an exacerbation) Patients Current Level & Intervention: Level 1: No BP hygiene indicated. Continue suctioning every 4 hours Intervention Mode Selected: Mechanical Ventilator Bronchodilator Breath Sounds Level 1: Clear or occasional minimal wheezing Respiratory History Level 2: Positive risk factors include but not limited to - HX of smoking ; Hx of pulmonary complications ; Smoke inhalation ; physical/chemical trauma to the lung or upper airway Peak Pressures Level 1: Less than 25 cm H2O Peak Minus Plateau Pressure Level 1: 3 cm H2O or less Other Considerations for adventitious breath sounds, elevated peak pressures and peak/plateau difference. Endotracheal tube too small, tube kinked/Foreign body in the lumen Partial cuff herniation Secretions and/or mucus plugging Tracheal malacia or stenosis Patients Current Level & Intervention: 1 Every 4 hours PRN for wheezing * Plan of Care - Lyudmila Boland RCP - 03/10/2025 6:29 PM EDT Problem: Alternate Airway Goal: ET tube will be managed safely Description: INTERVENTIONS 1. Assess and monitor insertion depth at lip/nare line 2. Utilize ETT securing device and change as necessary to ensure ETT is properly secured to patient 3. Keep resuscitation bag, mask, oxygen connection tubing, and extra ETT readily available; accompanying patient at all times 4. Reposition ET tube to opposite side of mouth 5. Support ventilator tubing to avoid pressure from drag of tubing 6. Monitor cuff pressure to maintain adequate seal Outcome: Progressing Note: Evaluation of progress towards goal: Flaco securing ETT Respiratory Therapy Clinical Practice Guidelines Consult Clinical Practice Guidelines Ordered Consult Assessment: Consult, Broncho-pulmonary hygiene, Mechanical ventilator, Oxygen Oxygen Indications: Post op Broncho-pulmonary Hygiene Indications: Inability/reluctance to change body position Broncho-pulmonary Hygiene Total: 1 Vital Signs Temp: 36.7 ??C (98.1 ??F) Pulse: 83 Heart Rate Source: Monitor Resp: 17 SpO2: 96 % O2 Device: Endotracheal tube FiO2 (%): 40 % EtCO2 (mmHg): (!) 32 mmHg ETCO2 Alarm - High: 50 ETCO2 Alarm - Low: 20 Patient Position: Semi-fowlers Respiratory Assessment Assessment Type: Subsequent assessment Level of Consciousness: Sedated, Responds to Voice, Responds to Pain Respiratory Pattern: Regular Chest Assessment: Chest expansion symmetrical Bilateral Breath Sounds: Clear, Diminished Cough Cough: Induced, Weak, Non-productive Suctioning Suction: Oral, ET Tube Oral Suctioning/Secretions Oral Suction Type: Oropharyngeal Oral Suction Device: Soft tip, Tonsil tip, Catheter Oral Secretion Amount: Scant Oral Secretion Color: Clear Oral Secretion Consistency: Thin Oral Suction Tolerance: Tolerated well Oral Suctioning Adverse Effects: None Airway Suctioning/Secretions Airway Suction Type: Endotracheal tube Airway Suction Device : Inline Airway Secretion Amount: None Readings Vt (observed, mL): 0.4 mL Avea Vt Mandatory Exp (L): 0.37 Minute Ventilation (L/min): 5.13 L/min PIP Observed (cm H2O): 26 cm H2O Total Rate : 15 MAP (cm H2O): 17 CM H20 EtCO2 (mmHg): (!) 32 mmHg Plateau Pressure (cm H2O): 24 cm H2O I:E Readin:9.9 Static Compliance (L/cm H2O): 28.19 Dynamic Compliance (L/cm H2O): 27.11 L/cm H2O Patient Active Problem List Diagnosis DVT (deep venous thrombosis) ([facility]) Colon cancer screening Hematochezia Last Chest XRAY: Reviewed Pulmonary History: former smoker RT Reassessment Due In: 12 hours Mechanical Ventilator Broncho-Pulmonary Hygiene Breath Sounds Level 1: Slightly Diminished or clear Chest X-Ray Level 1: Possible signs of consolidation and/or atelectasis or clear Sputum Production Level 1: None or small amount of thin or watery secretions with suctioning History & Physical Level 1: None New onset of bronchitis or existing chronic pulmonary condition. * (not in an exacerbation) Patients Current Level & Intervention: Level 1: No BP hygiene indicated. Continue suctioning every 4 hours * Plan of Care - Liz Ortzi RN - 03/10/2025 10:12 AM EDT Problem: Pain Goal: Patient goal is pain score less than 4, able to rest, and participant in treatment plan as appropriate Description: INTERVENTIONS: 1. Encourage patient or legal route sales representative to report early pain and ask for pain medicine when needed 2. Assess pain using appropriate pain scale and include the scale used when documenting 3. Administer analgesics based on type and severity of pain and evaluate response within appropriate time frame 4. Implement non-pharmacological measures as appropriate and evaluate response 5. Consider cultural and social influences on pain and pain management 6. Notify LIP if interventions ineffective or patient reports new pain 7. Monitor vital signs including pulse ox, end-tidal CO2 based on pain intervention 8. Reassess pain per policy 9. Teach patient or legal route sales representative interventions for comforting Outcome: Progressing Note: Evaluation of progress towards goal: Pain medication available. Will continue to assess. Problem: Safety Goal: Patient will be injury free during hospitalization Description: INTERVENTIONS: 1. Assess patient's risk for falls and implement fall prevention plan of care per policy 2. Provide and maintain a safe environment 3. Proper use of double Identifiers 4. Medication administration using the 5 rights 5. Hand hygiene 6. Specimens are labeled at the bedside 7. Instruct patient/ patient route sales representative about use of safety devices 8. Include patient/ patient route sales representative in decisions related to safety Outcome: Progressing Note: Evaluation of progress towards goal: Patient remains free from falls and injury. Patient close to nursing station. Will continue to monitor. Problem: Infection Goal: Absence of infection during hospitalization Description: INTERVENTIONS 1. Assess and monitor for signs and symptoms of infection. 2. Monitor lab/diagnostic results. 3. Monitor all insertion sites i.e., indwelling lines, tubes and drains. 4. Monitor endotracheal (as able) and nasal secretions for changes in amount and color. 5. Administer medications as ordered. 6. Instruct and encourage patient and family to use good hand hygiene technique. 7. Identify and instruct patient/patient route sales representative in use of appropriate isolation precautionsfor identified infection/symptoms. 8. Provide and discuss with patient/patient route sales representative on educational MDRO sheet. 9. Encourage and monitor nutritional status daily and consult manuscript editor if indicated. 10. Implement neutropenic guidelines as needed. Outcome: Progressing Note: Evaluation of progress towards goal: No new signs or symptoms of infection noted. Will continue to monitor labs and vitals and update provider if any new symptoms arise. * Plan of Care - Arianna Flores RN - 03/10/2025 6:17 AM EDT Problem: Pain Goal: Patient goal is pain score less than 4, able to rest, and participant in treatment plan as appropriate Description: INTERVENTIONS: 1. Encourage patient or legal route sales representative to report early pain and ask for pain medicine when needed 2. Assess pain using appropriate pain scale and include the scale used when documenting 3. Administer analgesics based on type and severity of pain and evaluate response within appropriate time frame 4. Implement non-pharmacological measures as appropriate and evaluate response 5. Consider cultural and social influences on pain and pain management 6. Notify LIP if interventions ineffective or patient reports new pain 7. Monitor vital signs including pulse ox, end-tidal CO2 based on pain intervention 8. Reassess pain per policy 9. Teach patient or legal route sales representative interventions for comforting Outcome: Progressing Note: Evaluation of progress towards goal: Patient continued on continuous infusion for pain management. Adult non-verbal remains 0. Problem: Infection Goal: Absence of infection during hospitalization Description: INTERVENTIONS 1. Assess and monitor for signs and symptoms of infection. 2. Monitor lab/diagnostic results. 3. Monitor all insertion sites i.e., indwelling lines, tubes and drains. 4. Monitor endotracheal (as able) and nasal secretions for changes in amount and color. 5. Administer medications as ordered. 6. Instruct and encourage patient and family to use good hand hygiene technique. 7. Identify and instruct patient/patient route sales representative in use of appropriate isolation precautionsfor identified infection/symptoms. 8. Provide and discuss with patient/patient route sales representative on educational MDRO sheet. 9. Encourage and monitor nutritional status daily and consult manuscript editor if indicated. 10. Implement neutropenic guidelines as needed. Outcome: Progressing Note: Evaluation of progress towards goal: Patient continued on current antibiotic regimen. Problem: Safety - Medical Restraint Goal: Remains free of injury from restraints (Restraint for Interference with Structures Assembler) Description: INTERVENTIONS: 1. Determine that other, less restrictive measures have been tried or would not be effective beforeapplying the restraint 2. Evaluate the patient's condition at the time of restraint application 3. Inform patient/family regarding the reason for restraint 4. Q2H: Monitor safety, Vital signs, psychosocial status, signs of injury, skin integrity, circulation, neurovascular status in affected extremities, respiratory status, comfort, nutrition and hydration, hygiene, ROM, elimination needs 5. Doctor will be notified of restraint 6. RN properly applies restraints per physician order Outcome: Progressing Note: Evaluation of progress towards goal: Patient continued on bilateral non violent soft wrist restraints d/t intubation and sedation. Pt remains free of injury from restraints. Problem: Safety Goal: Patient will be injury free during hospitalization Description: INTERVENTIONS: 1. Assess patient's risk for falls and implement fall prevention plan of care per policy 2. Provide and maintain a safe environment 3. Proper use of double Identifiers 4. Medication administration using the 5 rights 5. Hand hygiene 6. Specimens are labeled at the bedside 7. Instruct patient/ patient route sales representative about use of safety devices 8. Include patient/ patient route sales representative in decisions related to safety Note: Evaluation of progress towards goal: Patient remains free of injury. Safety measures in place. * Plan of Care - Alfredo Slater RCP - 03/09/2025 11:07 PM EDT Problem: Alternate Airway Goal: ET tube will be managed safely Description: INTERVENTIONS 1. Assess and monitor insertion depth at lip/nare line 2. Utilize ETT securing device and change as necessary to ensure ETT is properly secured to patient 3. Keep resuscitation bag, mask, oxygen connection tubing, and extra ETT readily available; accompanying patient at all times 4. Reposition ET tube to opposite side of mouth 5. Support ventilator tubing to avoid pressure from drag of tubing 6. Monitor cuff pressure to maintain adequate seal Outcome: Progressing Note: Evaluation of progress towards goal: Reviewed, patient remains intubated. ETT secured and stable, suction Q4 and PRN. Tolerating well. Will CPAP as tolerated and continue to monitor. Respiratory Therapy Clinical Practice Guidelines Consult Vital Signs Temp: 36.7 ??C (98.1 ??F) Pulse: 82 Heart Rate Source: Monitor Resp: 21 SpO2: 96 % O2 Device: Endotracheal tube FiO2 (%): 40 % EtCO2 (mmHg): (!) 33.3 mmHg ETCO2 Alarm - High: 50 ETCO2 Alarm - Low: 20 Patient Position: Semi-fowlers Respiratory Assessment Assessment Type: Assess only Level of Consciousness: Sedated, Responds to Voice, Responds to Pain Respiratory Pattern: Regular Chest Assessment: Chest expansion symmetrical Bilateral Breath Sounds: Clear, Diminished Suctioning Suction: Oral, ET Tube Oral Suctioning/Secretions Oral Suction Type: Oral Oral Suction Device: Soft tip Oral Secretion Amount: Small Oral Secretion Color: Clear, White Oral Secretion Consistency: Thin Oral Suction Tolerance: Tolerated well Oral Suctioning Adverse Effects: None Airway Suctioning/Secretions Airway Suction Type: Endotracheal tube Airway Suction Device : Inline Airway Secretion Amount: Scant Airway Secretion Color: Clear, White Airway Secretion Consistency: Thin Airway Suction Tolerance: Tolerated well Airway Suctioning Adverse Effects: None Readings Vt (observed, mL): 0.3 mL Avea Vt Mandatory Exp (L): 0.23 Minute Ventilation (L/min): 6.3 L/min PIP Observed (cm H2O): 26 cm H2O Total Rate : 24 MAP (cm H2O): 18 CM H20 EtCO2 (mmHg): (!) 33.3 mmHg Plateau Pressure (cm H2O): 23 cm H2O I:E Readin:2 Static Compliance (L/cm H2O): 27.99 Dynamic Compliance (L/cm H2O): 24.93 L/cm H2O Patient Active Problem List Diagnosis DVT (deep venous thrombosis) ([facility]) Colon cancer screening Hematochezia Last Chest XRAY: Reviewed Pulmonary History: Reviewed RT Reassessment Due In: 12 hours Mechanical Ventilator Broncho-Pulmonary Hygiene Breath Sounds Level 1: Slightly Diminished or clear Chest X-Ray Level 1: Possible signs of consolidation and/or atelectasis or clear Sputum Production Level 2: Small to moderate amount, of moderately thick secretions History & Physical Level 1: None New onset of bronchitis or existing chronic pulmonary condition. * (not in an exacerbation) Patients Current Level & Intervention: Level 1: No BP hygiene indicated. Continue suctioning every 4 hours Intervention Mode Selected: Mechanical Ventilator Bronchodilator Breath Sounds Level 1: Clear or occasional minimal wheezing Respiratory History Level 2: Positive risk factors include but not limited to - HX of smoking ; Hx of pulmonary complications ; Smoke inhalation ; physical/chemical trauma to the lung or upper airway Peak Pressures Level 1: Less than 25 cm H2O Peak Minus Plateau Pressure Level 1: 3 cm H2O or less Other Considerations for adventitious breath sounds, elevated peak pressures and peak/plateau difference. Endotracheal tube too small, tube kinked/Foreign body in the lumen Partial cuff herniation Secretions and/or mucus plugging Tracheal malacia or stenosis Patients Current Level & Intervention: 1 Every 4 hours PRN for wheezing * Plan of Care - Lyudmila Boland RCP - 03/09/2025 6:18 PM EDT Problem: Alternate Airway Goal: ET tube will be managed safely Description: INTERVENTIONS 1. Assess and monitor insertion depth at lip/nare line 2. Utilize ETT securing device and change as necessary to ensure ETT is properly secured to patient 3. Keep resuscitation bag, mask, oxygen connection tubing, and extra ETT readily available; accompanying patient at all times 4. Reposition ET tube to opposite side of mouth 5. Support ventilator tubing to avoid pressure from drag of tubing 6. Monitor cuff pressure to maintain adequate seal Outcome: Progressing Note: Evaluation of progress towards goal: Flaco securing ETT Respiratory Therapy Clinical Practice Guidelines Consult Clinical Practice Guidelines Ordered Consult Assessment: Consult, Oxygen, Broncho-pulmonary hygiene, Mechanical ventilator Oxygen Indications: Post op Broncho-pulmonary Hygiene Indications: Inability/reluctance to change body position Broncho-pulmonary Hygiene Total: 1 Vital Signs Temp: 36.5 ??C (97.7 ??F) Pulse: 70 Heart Rate Source: Monitor Resp: 22 SpO2: 98 % O2 Device: Endotracheal tube FiO2 (%): 40 % EtCO2 (mmHg): (!) 31 mmHg ETCO2 Alarm - High: 50 ETCO2 Alarm - Low: 20 Patient Position: Semi-fowlers Respiratory Assessment Assessment Type: Assess only Level of Consciousness: Sedated, Responds to Pain, Responds to Voice Respiratory Pattern: Regular Chest Assessment: Chest expansion symmetrical Bilateral Breath Sounds: Clear, Diminished Cough Cough: Induced, None, Non-productive (no cough/gag) Suctioning Suction: Oral, ET Tube Oral Suctioning/Secretions Oral Suction Type: Oropharyngeal Oral Suction Device: Soft tip, Tonsil tip Oral Secretion Amount: Small Oral Secretion Color: Clear, White Oral Secretion Consistency: Thin Oral Suction Tolerance: Tolerated well Oral Suctioning Adverse Effects: None Airway Suctioning/Secretions Airway Suction Type: Endotracheal tube Airway Suction Device : Inline Airway Secretion Amount: None Airway Secretion Color: Clear Airway Secretion Consistency: Thin Airway Suction Tolerance: Tolerated well Airway Suctioning Adverse Effects: None Readings Vt (observed, mL): 0.3 mL Avea Vt Mandatory Exp (L): 0.35 Minute Ventilation (L/min): 7.74 L/min PIP Observed (cm H2O): 26 cm H2O Total Rate : 22 MAP (cm H2O): 17 CM H20 EtCO2 (mmHg): (!) 31 mmHg Plateau Pressure (cm H2O): 28 cm H2O I:E Readin:2 Static Compliance (L/cm H2O): 20.99 Dynamic Compliance (L/cm H2O): 24.44 L/cm H2O Patient Active Problem List Diagnosis DVT (deep venous thrombosis) ([facility]) Colon cancer screening Hematochezia Last Chest XRAY: Reviewed Pulmonary History: former smoker RT Reassessment Due In: 12 hours Mechanical Ventilator Broncho-Pulmonary Hygiene Breath Sounds Level 1: Slightly Diminished or clear Chest X-Ray Level 1: Possible signs of consolidation and/or atelectasis or clear Sputum Production Level 1: None or small amount of thin or watery secretions with suctioning History & Physical Level 1: None New onset of bronchitis or existing chronic pulmonary condition. * (not in an exacerbation) Patients Current Level & Intervention: Level 1: No BP hygiene indicated. Continue suctioning every 4 hours * Plan of Care - Nasir Chi RN - 03/09/2025 9:19 AM EDT Problem: Pain Goal: Patient goal is pain score less than 4, able to rest, and participant in treatment plan as appropriate Description: INTERVENTIONS: 1. Encourage patient or legal route sales representative to report early pain and ask for pain medicine when needed 2. Assess pain using appropriate pain scale and include the scale used when documenting 3. Administer analgesics based on type and severity of pain and evaluate response within appropriate time frame 4. Implement non-pharmacological measures as appropriate and evaluate response 5. Consider cultural and social influences on pain and pain management 6. Notify LIP if interventions ineffective or patient reports new pain 7. Monitor vital signs including pulse ox, end-tidal CO2 based on pain intervention 8. Reassess pain per policy 9. Teach patient or legal route sales representative interventions for comforting Outcome: Progressing Note: Evaluation of progress towards goal: Hourly rounding completed. Pain assessments completed per policy. Repositioning and comfort interventions being utilized, pharmacolgical interventions available if no improvement following non-pharmacological interventions. Problem: Safety Goal: Patient will be injury free during hospitalization Description: INTERVENTIONS: 1. Assess patient's risk for falls and implement fall prevention plan of care per policy 2. Provide and maintain a safe environment 3. Proper use of double Identifiers 4. Medication administration using the 5 rights 5. Hand hygiene 6. Specimens are labeled at the bedside 7. Instruct patient/ patient route sales representative about use of safety devices 8. Include patient/ patient route sales representative in decisions related to safety Outcome: Progressing Note: Evaluation of progress towards goal: Pt resting comfortably, fall risk precautions in place. Bed/chair alarm on, call light within reach. SR x 2. Clear area ensured if patient is able to ambulate. Hourly rounding being completed Problem: Safety - Medical Restraint Goal: Remains free of injury from restraints (Restraint for Interference with Structures Assembler) Description: INTERVENTIONS: 1. Determine that other, less restrictive measures have been tried or would not be effective beforeapplying the restraint 2. Evaluate the patient's condition at the time of restraint application 3. Inform patient/family regarding the reason for restraint 4. Q2H: Monitor safety, Vital signs, psychosocial status, signs of injury, skin integrity, circulation, neurovascular status in affected extremities, respiratory status, comfort, nutrition and hydration, hygiene, ROM, elimination needs 5. Doctor will be notified of restraint 6. RN properly applies restraints per physician order Outcome: Progressing Note: Evaluation of progress towards goal: Assessment of clinincal indication of restraints being completed every 2 hours, ROM exercises being offered every 2 hours, circulation and skin integrity assessments being completed every 2 hours. * Op Note - Dariana Guerrero MD - 03/09/2025 8:39 AM EDT Operative Note NAME: Caren Suarez : 1955 PROCEDURE DATE: 03/09/2025 Surgeon: Surgeons and Role: * Ghassan Castillo MD - Primary Assistants: Dariana Guerrero MD PGY-5 Staff: Chain Puller Primary: Patricia Blum RN Scrub Person: Adria Vasques Associate Media Planner Resident: Dariana Guerrero MD Scrub Secondary: Raven Arriola CST Pre-op Diagnosis: OPEN ABDOMEN Post-op Diagnosis: SAME Procedure(s): Exploratory laparotomy Abdominal washout Resection of small bowel End ileostomy creation Application of wound VAC Wound class: Contaminated Anesthesia Type: General Case Length: 1 Hr 25 Min 37 Sec Indications: Caren Suarez is a 69 y.o. 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 Now patient is going for 2nd look laparotomy, ileostomy creation. The procedure, the risks, the benefits, and alternatives were all discussed with the patient's mother and she provided verbal consent to proceed over the phone, witnessed by 2 RNs. Findings: Entire small bowel run and viable, successful ileostomy creation, minor oozing in the pelvis, 2 laparotomy pads removed, post-procedure Xray while still in OR negative for retained laps Procedure details: The patient was taken to the operating room where a time-out was performed to verify correct patient, procedure, and site. Prophylactic antibiotics were administered. T The patient was transferred tothe operating table and placed in the supine position. Cardiopulmonary monitoring was initiated. SCD's were placed on the lower extremities bilaterally. General anesthesia was administered by the anesthesiology team and found to be adequate. The outer abthera sponge was removed, patient was then prepped and draped in the usual sterile fashion. The inner Abthera sponge was removed. Newly forming adhesions between small bowel loops were gentlytaken down. The entire small bowel was run from ligament of treitz to where the ileum had previously been transected during total abdominal colectomy. The entire small bowel appeared viable. The pelvis was inspected. The previously packed 2 laps in the abdomen were removed. There was minimal oozingfrom the raw surfaces. The rectal stump was tagged with Prolene suture. The entire abdomen was thenirrigated with warm normal saline and suctioned until clean. Surgicel powder was then placed in thepelvis. Then attention was turned to making the end ileostomy. A skin disc was removed 2 from the left lateral abdomen. The incision was then carried down through the subcutaneous tissue to the fascia. The fascia was divided vertically the rectus muscles were split along their fibers and the peritoneum was divided. The opening was made big enough to admit 2 fingers. The end of the small bowel was freshened by resecting a small portion of terminal ileum using linear blue load LEONELA stapler. After ensuring that the small bowel was not twisted and that there was adequate length without tension thesmall bowel was brought up out through the chosen ileostomy site. The midline incision was then closed in a bidirectional fashion using looped 0 PDS suture. The ileostomy was then matured using 3-0 Vicryl suture. Then wound VAC with black granular foam was placed to the midline incision. Ostomy bagwas applied. Abdominal x-ray obtained at the end of the procedure prior to abdominal closure demonstrated no evidence of retained sponges or instruments. The patient tolerated the procedure well and remained intubated and transferred to SICU in criticalcondition. Dr. Castillo was present and scrubbed for the entirety of the procedure. Complications: None immediate Additions (Drains, Specimens, Implants): Drains: Chest Tube 03/08/25 Left (Active) Function -40 cm H2O 03/09/25 1600 Air Leak No 03/09/25 1600 Patency Intervention Tip/tilt;Changed drain unit;Checked for occlusion;Uncoiled tubing 03/09/25 1600 (1) Drainage Description Serosanguineous 03/09/25 1600 (1) Dressing Type Gauze;Occlusive 03/09/25 1600 (1) Dressing Status Clean;Dry;Intact 03/09/25 1600 (1) Dressing Intervention Dressing changed 03/09/25 0300 (1) Site Assessment Clean;Dry;Intact 03/09/25 1600 (1) Surrounding Skin Intact 03/09/25 1600 Emergency Equipment at Bedside Clamp;Vaseline gauze 03/09/25 1600 Output (mL) 64 mL 03/09/25 1718 Negative Pressure Wound Therapy 03/09/25 Surgical Mid Abdomen (Active) Assessed: Compressed 03/09/25 1600 Cycle Continuous 03/09/25 1600 Target Pressure (mmHg) 125 03/09/25 1600 Dressing Type Abthera 03/09/25 1600 NG/OG Tube 03/08/25 Left nostril (Active) Placement Verification Gastric content;X-ray 03/09/25 1600 Status Suction-low intermittent 03/09/25 1600 Site Assessment Clean;Dry;Intact 03/09/25 1600 Tube Site Care Completed 03/09/25 1600 Secured at (cm) 65 cm 03/09/25 1600 Securement Method Tube du 03/09/25 1600 Dressing Status/Interventions Clean;Intact;Dry 03/09/25 1600 Drainage Appearance Bile 03/09/25 1600 Output/Drainage (mL) 100 mL 03/09/25 1718 Flushed With Tap water 03/08/25 1130 Flush or Free Water (mL) 30 ml 03/08/25 1130 Feeding? (Yes or No) No 03/08/25 0700 Ileostomy 03/09/25 Standard (Corinne, valeria) RLQ (Active) Stomal Appliance 1 piece 03/09/25 1600 Site Assessment Clean;Intact 03/09/25 1600 Peristomal Assessment Clean;Intact 03/09/25 1600 Output (mL) 0 mL 03/09/25 1718 Urinary Catheter 03/06/25 Single lumen (Active) Catheter Status Patent 03/09/25 1600 Site Assessment Clean;Skin intact 03/09/25 1600 Collection Container Standard drainage bag/container 03/09/25 1600 Securement Method Right 03/09/25 1600 Tamper Evident Seal Intact Yes 03/09/25 1600 Indication for Continuation Strict I&O in critically ill patient 03/09/25 1600 Urine Color Ludivina 03/09/25 1600 Urine Appearance Clear 03/09/25 1600 Output (mL) 200 mL 03/09/25 1836 Specimens: ID Type Source Tests Collected by Time A : SMALL BOWEL Tissue Small Intestine SURGICAL PATHOLOGY Ghassan Castillo MD 03/09/2025 0915 Implants: Nothing was implanted during the procedure Estimated Blood Loss: 25 mL Total IV Fluids: See anesthesia record Condition: critical Dariana Guerrero MD General Surgery Resident, PGY-5 Cosigned by Ghassan Castillo MD at 03/10/2025 9:22 AM EDT Associated attestation - Ghassan Castillo MD - 03/10/2025 9:22 AM EDT Attending Attestation: I saw the patient. I performed the critical/fuentes portions of the service. I was directly involved inthe management and treatment plan of the patient. I reviewed the resident's note. Additional Notes/Findings: Patient underwent total colectomy and BSO a proximally 2 days ago. Patient was in critical condition and ABThera had been placed. She now returns to the OR. Abdomen was explored. No evidence of any significant bleeding. Bowel was normal in appearance. We irrigated the abdomen. Ileostomy was created and abdominal wall closed wound VAC was placed * Plan of Care - Jemima Soto RCP - 03/09/2025 3:59 AM EDT Problem: Alternate Airway Goal: ET tube will be managed safely Description: INTERVENTIONS 1. Assess and monitor insertion depth at lip/nare line 2. Utilize ETT securing device and change as necessary to ensure ETT is properly secured to patient 3. Keep resuscitation bag, mask, oxygen connection tubing, and extra ETT readily available; accompanying patient at all times 4. Reposition ET tube to opposite side of mouth 5. Support ventilator tubing to avoid pressure from drag of tubing 6. Monitor cuff pressure to maintain adequate seal Outcome: Progressing Note: Evaluation of progress towards goal: ETT secure and intact Respiratory Therapy Clinical Practice Guidelines Consult Vital Signs Temp: 36.6 ??C (97.9 ??F) Pulse: 94 Heart Rate Source: Monitor Resp: 22 SpO2: 97 % O2 Device: Endotracheal tube FiO2 (%): 40 % EtCO2 (mmHg): 36.3 mmHg Patient Position: Semi-fowlers Respiratory Assessment Assessment Type: Assess only Level of Consciousness: Responds to Pain Respiratory Pattern: Regular Chest Assessment: Chest expansion symmetrical Bilateral Breath Sounds: Clear, Diminished Oral Suctioning/Secretions Oral Suction Type: Oral Oral Suction Device: Soft tip Oral Secretion Amount: Small Oral Secretion Color: Clear, White Oral Secretion Consistency: Thin Oral Suction Tolerance: Tolerated well Oral Suctioning Adverse Effects: None Airway Suctioning/Secretions Airway Suction Type: Endotracheal tube Airway Suction Device : Inline Airway Secretion Amount: Scant Airway Secretion Color: Clear Airway Secretion Consistency: Thin Airway Suction Tolerance: Tolerated well Airway Suctioning Adverse Effects: None Readings Vt (observed, mL): 0.4 mL Avea Vt Mandatory Exp (L): 0.37 Minute Ventilation (L/min): 7.75 L/min PIP Observed (cm H2O): 29 cm H2O Total Rate : 22 MAP (cm H2O): 20 CM H20 EtCO2 (mmHg): 36.3 mmHg Plateau Pressure (cm H2O): 28 cm H2O I:E Readin:2 Static Compliance (L/cm H2O): 24.05 Dynamic Compliance (L/cm H2O): 24.37 L/cm H2O Patient Active Problem List Diagnosis DVT (deep venous thrombosis) ([facility]) Colon cancer screening Hematochezia Last Chest XRAY: Reviewed Pulmonary History: former smoker RT Reassessment Due In: 12 hours Mechanical Ventilator Broncho-Pulmonary Hygiene Breath Sounds Level 1: Slightly Diminished or clear Chest X-Ray Level 1: Possible signs of consolidation and/or atelectasis or clear Sputum Production Level 1: None or small amount of thin or watery secretions with suctioning History & Physical Level 1: None New onset of bronchitis or existing chronic pulmonary condition. * (not in an exacerbation) Patients Current Level & Intervention: Level 1: No BP hygiene indicated. Continue suctioning every 4 hours Mechanical Ventilator Bronchodilator Breath Sounds Level 1: Clear or occasional minimal wheezing Respiratory History Level 2: Positive risk factors include but not limited to - HX of smoking ; Hx of pulmonary complications ; Smoke inhalation ; physical/chemical trauma to the lung or upper airway Peak Pressures Level 4: 30 cm H20 or greater Peak Minus Plateau Pressure Level 1: 3 cm H2O or less Other Considerations for adventitious breath sounds, elevated peak pressures and peak/plateau difference. Endotracheal tube too small, tube kinked/Foreign body in the lumen Partial cuff herniation Secretions and/or mucus plugging Tracheal malacia or stenosis Patients Current Level & Intervention: 1 Every 4 hours PRN for wheezing * Plan of Care - Arianna Flores RN - 03/08/2025 7:59 PM EDT Problem: Pain Goal: Patient goal is pain score less than 4, able to rest, and participant in treatment plan as appropriate Description: INTERVENTIONS: 1. Encourage patient or legal route sales representative to report early pain and ask for pain medicine when needed 2. Assess pain using appropriate pain scale and include the scale used when documenting 3. Administer analgesics based on type and severity of pain and evaluate response within appropriate time frame 4. Implement non-pharmacological measures as appropriate and evaluate response 5. Consider cultural and social influences on pain and pain management 6. Notify LIP if interventions ineffective or patient reports new pain 7. Monitor vital signs including pulse ox, end-tidal CO2 based on pain intervention 8. Reassess pain per policy 9. Teach patient or legal route sales representative interventions for comforting Outcome: Progressing Note: Evaluation of progress towards goal: Patient continued on continuous infusion for pain management. Adult non-verbal remains 0. Problem: Infection Goal: Absence of infection during hospitalization Description: INTERVENTIONS 1. Assess and monitor for signs and symptoms of infection. 2. Monitor lab/diagnostic results. 3. Monitor all insertion sites i.e., indwelling lines, tubes and drains. 4. Monitor endotracheal (as able) and nasal secretions for changes in amount and color. 5. Administer medications as ordered. 6. Instruct and encourage patient and family to use good hand hygiene technique. 7. Identify and instruct patient/patient route sales representative in use of appropriate isolation precautionsfor identified infection/symptoms. 8. Provide and discuss with patient/patient route sales representative on educational MDRO sheet. 9. Encourage and monitor nutritional status daily and consult manuscript editor if indicated. 10. Implement neutropenic guidelines as needed. Outcome: Progressing Note: Evaluation of progress towards goal: Patient continued on current antibioitic regimen. Problem: Safety - Medical Restraint Goal: Remains free of injury from restraints (Restraint for Interference with Structures Assembler) Description: INTERVENTIONS: 1. Determine that other, less restrictive measures have been tried or would not be effective beforeapplying the restraint 2. Evaluate the patient's condition at the time of restraint application 3. Inform patient/family regarding the reason for restraint 4. Q2H: Monitor safety, Vital signs, psychosocial status, signs of injury, skin integrity, circulation, neurovascular status in affected extremities, respiratory status, comfort, nutrition and hydration, hygiene, ROM, elimination needs 5. Doctor will be notified of restraint 6. RN properly applies restraints per physician order Outcome: Progressing Note: Evaluation of progress towards goal: Patient continued on bilateral non violent soft wrist restraint d/t intubation and sedation. Patient remains free of injury from restraints. * Plan of Care - Leatha Valentin RN - 03/08/2025 11:00 AM EDT Problem: Pain Goal: Patient goal is pain score less than 4, able to rest, and participant in treatment plan as appropriate Description: INTERVENTIONS: 1. Encourage patient or legal route sales representative to report early pain and ask for pain medicine when needed 2. Assess pain using appropriate pain scale and include the scale used when documenting 3. Administer analgesics based on type and severity of pain and evaluate response within appropriate time frame 4. Implement non-pharmacological measures as appropriate and evaluate response 5. Consider cultural and social influences on pain and pain management 6. Notify LIP if interventions ineffective or patient reports new pain 7. Monitor vital signs including pulse ox, end-tidal CO2 based on pain intervention 8. Reassess pain per policy 9. Teach patient or legal route sales representative interventions for comforting Outcome: Progressing Note: Evaluation of progress towards goal: Patient rates pain as tolerable this shift. Patient encouraged to report need for pain medications as needed. Patient assessed for pain using appropriate pain scale. Problem: Infection Goal: Absence of infection during hospitalization Description: INTERVENTIONS 1. Assess and monitor for signs and symptoms of infection. 2. Monitor lab/diagnostic results. 3. Monitor all insertion sites i.e., indwelling lines, tubes and drains. 4. Monitor endotracheal (as able) and nasal secretions for changes in amount and color. 5. Administer medications as ordered. 6. Instruct and encourage patient and family to use good hand hygiene technique. 7. Identify and instruct patient/patient route sales representative in use of appropriate isolation precautionsfor identified infection/symptoms. 8. Provide and discuss with patient/patient route sales representative on educational MDRO sheet. 9. Encourage and monitor nutritional status daily and consult manuscript editor if indicated. 10. Implement neutropenic guidelines as needed. Outcome: Progressing Note: Evaluation of progress towards goal: Patient evaluated for s/s of infection. Patient's vital signs,labs, and diagnostic results are being monitored each shift. Problem: Discharge Planning Goal: Discharge to post-acute care, other facility, or home with appropriate resources Description: Patient's goal is: INTERVENTIONS 1. Conduct assessment to determine patient/family and health care team treatment goals, and need for post-acute services based on payer coverage, community resources, and patient preferences, and barriers to discharge 2. Coordinate with Social work, Care Navigation, and Utilization Review to arrange appropriate level of services according to patient's needs based on patient preference and payer coverage in collaboration with the physician and health care team 3. Address psychosocial, clinical, and financial barriers to discharge as identified in assessment in conjunction with the patient/family and health care team 4. Consult appropriate ancillary services (i.e.. PT/OT/ST, etc) as needed 5. Communicate with and update the patient/family, physician, and health care team regarding progress on the discharge plan 6. Identify discharge learning needs (meds, wound care, etc). 7. Arrange for needed discharge transportation as appropriate Outcome: Progressing Note: Evaluation of progress towards goal: Discharge planning is in progress at this time. * Situational Awareness - ELLIOTT Finney - 03/08/2025 10:45 AM EDT [facility] hospitalist will follow as primary when patient transfers out of the ICU ELLIOTT Finney 03/08/25 1046 * Perioperative Nursing Note - Patty Khalil RN - 03/08/2025 12:45 AM EDT 03/07/25 5976: pt coded in OR 1 with severe hypotension and bradycardia, compressions started, 2 mg of Epinephrine IV given, pt continued on vent. 2348: compressions stopped, pt had palpable pulse, BP 190/78, HR 120, O2 Sat 51%. Code Cancelled. See anesthesia notes for more detailed interventions during code. * Plan of Care - Lila Meyer RN - 03/07/2025 10:46 PM EDT Problem: Pain Goal: Patient goal is pain score less than 4, able to rest, and participant in treatment plan as appropriate Description: INTERVENTIONS: 1. Encourage patient or legal route sales representative to report early pain and ask for pain medicine when needed 2. Assess pain using appropriate pain scale and include the scale used when documenting 3. Administer analgesics based on type and severity of pain and evaluate response within appropriate time frame 4. Implement non-pharmacological measures as appropriate and evaluate response 5. Consider cultural and social influences on pain and pain management 6. Notify LIP if interventions ineffective or patient reports new pain 7. Monitor vital signs including pulse ox, end-tidal CO2 based on pain intervention 8. Reassess pain per policy 9. Teach patient or legal route sales representative interventions for comforting Outcome: Progressing Note: Evaluation of progress towards goal: pain control throughout the shift Problem: Safety Goal: Patient will be injury free during hospitalization Description: INTERVENTIONS: 1. Assess patient's risk for falls and implement fall prevention plan of care per policy 2. Provide and maintain a safe environment 3. Proper use of double Identifiers 4. Medication administration using the 5 rights 5. Hand hygiene 6. Specimens are labeled at the bedside 7. Instruct patient/ patient route sales representative about use of safety devices 8. Include patient/ patient route sales representative in decisions related to safety Outcome: Progressing Note: Evaluation of progress towards goal: remain free from injury Problem: Infection Goal: Absence of infection during hospitalization Description: INTERVENTIONS 1. Assess and monitor for signs and symptoms of infection. 2. Monitor lab/diagnostic results. 3. Monitor all insertion sites i.e., indwelling lines, tubes and drains. 4. Monitor endotracheal (as able) and nasal secretions for changes in amount and color. 5. Administer medications as ordered. 6. Instruct and encourage patient and family to use good hand hygiene technique. 7. Identify and instruct patient/patient route sales representative in use of appropriate isolation precautionsfor identified infection/symptoms. 8. Provide and discuss with patient/patient route sales representative on educational MDRO sheet. 9. Encourage and monitor nutritional status daily and consult manuscript editor if indicated. 10. Implement neutropenic guidelines as needed. Outcome: Progressing Note: Evaluation of progress towards goal: continue IV antibiotics Problem: Discharge Planning Goal: Discharge to post-acute care, other facility, or home with appropriate resources Description: Patient's goal is: INTERVENTIONS 1. Conduct assessment to determine patient/family and health care team treatment goals, and need for post-acute services based on payer coverage, community resources, and patient preferences, and barriers to discharge 2. Coordinate with Social work, Care Navigation, and Utilization Review to arrange appropriate level of services according to patient's needs based on patient preference and payer coverage in collaboration with the physician and health care team 3. Address psychosocial, clinical, and financial barriers to discharge as identified in assessment in conjunction with the patient/family and health care team 4. Consult appropriate ancillary services (i.e.. PT/OT/ST, etc) as needed 5. Communicate with and update the patient/family, physician, and health care team regarding progress on the discharge plan 6. Identify discharge learning needs (meds, wound care, etc). 7. Arrange for needed discharge transportation as appropriate Outcome: Progressing Note: Evaluation of progress towards goal: TBD * Op Note - Faith Celis MD - 03/07/2025 10:26 PM EDT Date of Surgery: 03/07/2025 Preoperative Diagnosis: Complex right ovarian mass, malignant large bowel obstruction, colon cancermetastatic to bilateral lungs, bilateral pulmonary emboli, bilateral lower extremity deep venous thromboses Postoperative Diagnosis: Same Operative Procedure: Exploratory Laparotomy, bilateral salpingo-oophorectomy Please see colorectal surgery operative report regarding total colectomy and placement of Abthera wound vac. Surgeon: Faith Celis MD Nutrition Intern: Winter Martinez MD PGY2 Anesthesia: GETA EBL: See colorectal operative report IVF: See colorectal operative report UOP: See colorectal operative report Specimens: Right fallopian tube + ovary, Left fallopian tube + ovary Complications: None Findings: 20 cm complex right ovarian mass, normal appearing uterus, bilateral fallopian tubes and left ovary. Indications / Consent: Ms. Suarez is a 69 y.o. with colon cancer metastatic to the bilateral lungs with malignant large bowel obstruction and complex right ovarian mass in the setting of bilateral pulmonary emboli and bilateral lower extremity DVTs. Patient was dispositioned by colorectal surgery for emergent ostomy. Gynecologic oncology was consulted for possible excision of ovarian mass at timeof surgery. I recommend bilateral salpingo-oophorectomy. We discussed the risks of surgery including risk of bleeding, possibly to anemia requiring blood transfusion, risk of infection, and risk of damage to surrounding structures including, but not limited to, bowel, bladder, ureters, nerves, arteries, and veins. Patient expressed understanding and desires to proceed. All questions were answeredand the consent form was signed. Procedure: Please see colorectal operative report for the initial portions of the case. After the right portion of the colon was removed, I proceeded with the gynecologic oncology portionof the procedure. The right retroperitoneal space was opened lateral to the right IP ligament. The right IP ligament was dissected away from the ureter. The right IP ligament was clamped and cauterized multiple times and then cut with the Ligasure device, freeing the right tube/ovary from the rightpelvic sidewall. The right utero-ovarian ligament and fallopian tube were clamped and cauterized multiple times and then cut with the Ligasure device, freeing the right tube/ovary from the abdominal cavity. This was sent to pathology as right adnexal mass for permanent evaluation. Attention was turned to the left side. The left IP ligament had previously been transected. The left tube and utero-ovarian ligament were clamped and cauterized multiple times and then cut with the Ligasure device, freeing the left tube/ovary from the abdominal caivty. This was sent to pathology for permanent evaluation. At this point, the remaining portions of the procedure was handed off back to Dr. Castillo. Please seehis operative report for further details regarding completion of colectomy and placement of Abtherawound vac. * Op Note - Dyan Carson MD - 03/07/2025 10:26 PM EDT Operative Report Date of Service: 03/08/2025 Surgeon(s):Surgeons and Role: Panel 1: * Ghassan Castillo MD - Primary Nutrition Intern(s): Dyan Carson MD OR Staff: Chain Puller Primary: Patricia Blum RN Chain Puller Relief: Paula Moncada RN Scrub Person: Anitha Temple ; DarienST Jyoti Associate Media Planner Resident: Dyan Carson MD; Abby Palmer MD; Winter Martinez MD Anesthesia Staff: Anesthesiologist: Veronique Alcaraz MD DIGITAL TECHNICIAN: Ana Lilia Correa APRN-DIGITAL TECHNICIAN Student Nurse Warp Coiler: KIMBERLY Xavier Pre-Operative Diagnoses: Large bowel obstruction, with large adnexal mass Post-Operative Diagnoses: Large bowel obstruction, with hard mass palpable in sigmoid colon, complex right ovarian mass Procedure(s) performed: Procedure(s): LAPAROTOMY EXPLORATORY TOTAL COLECTOMY ABTHERA WOUND VAC PLACEMENT Type of Anesthesia used: General IV Fluids: Please refer to anesthesia notes Estimated Blood Loss: 200 mL Urine Output: Please refer to anesthesia notes Specimen(s) removed: ID Type Source Tests Collected by Time A : COLON Tissue Colon SURGICAL PATHOLOGY Ghassan Castillo MD 03/07/2025 2328 B : RIGHT ADNEXAL MASS AND CYST Tissue Other SURGICAL PATHOLOGY Ghassan Castillo MD 03/07/2025 2329 C : LEFT FALLOPIAN TUBE AND OVARY Tissue Fallopian Tube and Ovary SURGICAL PATHOLOGY Ghassan Castillo MD 03/07/2025 2331 Intra and Immediate Post-op Complications: none Indication: Caren Suarez is a 69 y.o. female here with large bowel obstruction, with a large adnexal mass. After the risks and benefits of the procedure were discussed at length with the patient, consent was obtained. Procedure: The patient was brought to the operating room and placed in the supine position. General anesthesiawas induced. The abdomen was prepped and draped in usual sterile fashion. A proper timeout was performed. Incision was made along the abdominal midline. The subcutaneous tissue was dissected using electrocautery. The fascia was sharply incised ensuring no underlying bowel injury and the abdomen was entered. Upon entering the abdomen a large amount of serosanguineous and mucinous fluid was encountered. The colon was massively dilated and dusky concerning for ischemia. Despite a large midline incision the massively dilated colon could not all be delivered through the incision and was hampering exploration of the rest of the abdomen. On discussion with anesthesia there was also concern regarding inability to ventilate due to massively dilated bowel an abdomen. Decision was made to decompress the colon, using a small incision. The air and succus was aspirated. Once the colon was decompressed it was delivered through the midline incision. This allowed improvement in ventilation, however patient continued to have significant V/Q mismatch. Decision was made to resected bowel, for resuscitation. We mobilized the colon along the whiteline of Toldt along the ascending and descending colon. Using LigaSure device the gastrocolic ligament was divided. We used an 80 mm blue load stapler to divide the ileum approximately 10 cm proximalto the ileocecal junction. We palpated a hard mass in the sigmoid colon. A window was created in the mesocolon and a green load contour stapler was used to divide the sigmoid colon beyond the mass. The LigaSure device was used to take down the mesocolon. The specimen was sent for pathology. The patient was handed over to gynecological oncology to perform bilateral salpingo-oophorectomy, which has been dictated separately. Abdomen was examined for hemostasis which was found to be adequate. The pelvis was packed with 2 lap pads. In view of patient's for ventilation, need for pressor requirement, decision was made to leave the patient in discontinuity and close the abdomen with an ABThera wound VAC. Patient continued to have poor ventilation and increasing pressor requirements, losing pulses just as the ABThera was being placed. CPR was started. Patient had return of pulses after 2 rounds of CPR. Patient was stabilized on the table with pressors, and a central line placed by anesthesia. All instrument and sponge counts were correct. Patient was left intubated and taken to SICU for further recovery. There were no complications, the patient tolerated the procedure well. Dr Castillo was scrubbed and present for the entire procedure. Intraoperatively due to patient's poor ventilation, increasing V/Q mismatch, increasing pressor requirement with known history of bilateral PEs, vascular surgery was consulted for any possibility of surgical management of PEs. Additionally we also contacted Cardiothoracic surgery to assess the possibility of an ECMO. In view of patient's worsening hemodynamic status, and long-term hypoxia CT surgery believed ECMO would be futile. Systemic tPA was recommended by vascular surgery, however that was not possible in view of patient's open abdomen. The patient was brought to SICU for further resuscitation Dyan Carson MD 03/08/2025 Cosigned by Ghassan Castillo MD at 03/09/2025 7:38 AM EDT Associated attestation - Ghassan Castillo MD - 03/09/2025 7:38 AM EDT Attending Attestation: I saw the patient. I participated and was physically present during the critical/fuentes portions of the service. I was directly involved in the management and treatment plan of the patient. I reviewed the resident's note. Additional Notes/Findings: Patient presents with findings of colon obstruction and large right adnexal mass. Previous biopsy had demonstrated findings consistent with colon malignancy. Patient required reversal of anticoagulation prior to surgery. Exploration performed. Findings include large amount of ascites. Obstructing mass at sigmoid colon,colon was massively dilation with evidence of ischemia and near perforation. Large complicated right ovarian mass. Total colectomy was performed. Dr. Celis performed BSO including resection of large right adnexal mass Due to the patient's critical condition ABThera was placed packs were left in the pelvis patient was taken to the ICU * Situational Awareness - Ernie Elizondo, STUDENT TRUCK DRIVER-ASSISTANT DIRECTOR OF RESIDENCE LIFE - 03/07/2025 3:27 PM EDT Patient needs abdominal surgery, likely in next 12-24H per surgical team. Heparin on hold given supratherapeutic Xa/PTT. Given elevated INR=4.2, she also needs reversal prior to surgery. Unfortunately this will not come without risk for worsening thrombosis as she is hypercoagulable from her advanced malignancy. None the less, it is necessary to mitigate bleeding for a surgery that is imperative.Given the same, we are ordering 3u FFP + Vit K 10mg now, with plan to repeat PT/INR at midnight. Results should be called to Dr. Jean who is taking over the motion picture printer service. Will then order additional products as indicated. Plan to repeat PT/INR again in the morning. This plan was discussed with patient, [facility] Funes, and surgical team. Dr. Stone spoke with Dr. Castillo regarding this plan as well.Risks were communicated clearly with the patient, who remains in agreement to proceed. Please reachout to our motion picture printer provider with any questions. ELLIOTT Christina 03/07/25 1531 ELLIOTT Christina 03/07/25 1533 Cosigned by Domenic Stone MD at 03/07/2025 7:25 PM EDT * Plan of Care - Jina Miller MD - 03/07/2025 2:43 PM EDT Images from the original note were not included. 69 years old female admitted here for acute PE/ DVT noted to have ovarian mass with metastasis GI was consulted initially for screening colonoscopy /EGD to rule out GI malignancies patient failed to comply with preparation for 3 times and procedures were canceled procedures can be done as an outpatient. GI will follow remotely Jina Miller MD Gastroenterology and hepatology fellow [facility] * Discharge Planning Note - Ludivina Mccray RN - 03/07/2025 10:05 AM EDT Ongoing Assessment for Discharge Needs Reviewed discharge milestones and patient needs related to discharge plan. Current estimated discharge date of Mar 08, 2025 has been reviewed by treatment team. Ongoing Assessment for Discharge Needs Flowsheet Row Most Recent Value Referral To Community Referrals / Resources Provided Denies needs Services Requested Patient expects to be discharged to: home Does the patient wish to have family/friend/caregiver involved in their discharge planning? No, thepatient does not wish to have family/friend/caregiver involved in their discharge planning Discharge Disposition Home with self care Does the patient need discharge transportation arranged? No Case discussed in daily transition rounds and chart reviewed by CN. Barriers to discharge include: No diet, Heparin drip, IV fluids, IR consult, trend creatine CN met with patient at bedside, discharge plan remains: Home self care. CN will continue to follow and is available should any further needs arise. - Ludivina Mccray RN 03/07/25 10:05 AM * Plan of Care - Kita Ramirez RN - 03/07/2025 7:12 AM EDT Problem: Pain Goal: Patient goal is pain score less than 4, able to rest, and participant in treatment plan as appropriate Description: INTERVENTIONS: 1. Encourage patient or legal route sales representative to report early pain and ask for pain medicine when needed 2. Assess pain using appropriate pain scale and include the scale used when documenting 3. Administer analgesics based on type and severity of pain and evaluate response within appropriate time frame 4. Implement non-pharmacological measures as appropriate and evaluate response 5. Consider cultural and social influences on pain and pain management 6. Notify LIP if interventions ineffective or patient reports new pain 7. Monitor vital signs including pulse ox, end-tidal CO2 based on pain intervention 8. Reassess pain per policy 9. Teach patient or legal route sales representative interventions for comforting Outcome: Progressing Note: Evaluation of progress towards goal: Pain medication administered PRN per request and as scheduled in patient's MAR Problem: Safety Goal: Patient will be injury free during hospitalization Description: INTERVENTIONS: 1. Assess patient's risk for falls and implement fall prevention plan of care per policy 2. Provide and maintain a safe environment 3. Proper use of double Identifiers 4. Medication administration using the 5 rights 5. Hand hygiene 6. Specimens are labeled at the bedside 7. Instruct patient/ patient route sales representative about use of safety devices 8. Include patient/ patient route sales representative in decisions related to safety Outcome: Progressing Note: Evaluation of progress towards goal: Call light in reach for safety and assistance, safety maintaned Problem: Infection Goal: Absence of infection during hospitalization Description: INTERVENTIONS 1. Assess and monitor for signs and symptoms of infection. 2. Monitor lab/diagnostic results. 3. Monitor all insertion sites i.e., indwelling lines, tubes and drains. 4. Monitor endotracheal (as able) and nasal secretions for changes in amount and color. 5. Administer medications as ordered. 6. Instruct and encourage patient and family to use good hand hygiene technique. 7. Identify and instruct patient/patient route sales representative in use of appropriate isolation precautionsfor identified infection/symptoms. 8. Provide and discuss with patient/patient route sales representative on educational MDRO sheet. 9. Encourage and monitor nutritional status daily and consult manuscript editor if indicated. 10. Implement neutropenic guidelines as needed. Outcome: Progressing Note: Evaluation of progress towards goal: monitor for s/s of infection, treat per orders Problem: Knowledge Deficit Goal: Patient/patient route sales representative demonstrates understanding of disease process, treatment plan,medications, and discharge instructions Description: INTERVENTIONS 1. Complete learning assessment and assess knowledge base 2. Provide teaching at level of understanding 3. Provide teaching via preferred learning method(s) Outcome: Progressing Note: Evaluation of progress towards goal: Keep pt updated on poc and new testing, results, and procedures Problem: Discharge Planning Goal: Discharge to post-acute care, other facility, or home with appropriate resources Description: Patient's goal is: INTERVENTIONS 1. Conduct assessment to determine patient/family and health care team treatment goals, and need for post-acute services based on payer coverage, community resources, and patient preferences, and barriers to discharge 2. Coordinate with Social work, Care Navigation, and Utilization Review to arrange appropriate level of services according to patient's needs based on patient preference and payer coverage in collaboration with the physician and health care team 3. Address psychosocial, clinical, and financial barriers to discharge as identified in assessment in conjunction with the patient/family and health care team 4. Consult appropriate ancillary services (i.e.. PT/OT/ST, etc) as needed 5. Communicate with and update the patient/family, physician, and health care team regarding progress on the discharge plan 6. Identify discharge learning needs (meds, wound care, etc). 7. Arrange for needed discharge transportation as appropriate Outcome: Progressing Note: Evaluation of progress towards goal: Review discharge plans with pt, verbalizes understanding Problem: Pain Goal: Patient goal is pain score less than 4, able to rest, and participant in treatment plan as appropriate Description: INTERVENTIONS: 1. Encourage patient or legal route sales representative to report early pain and ask for pain medicine when needed 2. Assess pain using appropriate pain scale and include the scale used when documenting 3. Administer analgesics based on type and severity of pain and evaluate response within appropriate time frame 4. Implement non-pharmacological measures as appropriate and evaluate response 5. Consider cultural and social influences on pain and pain management 6. Notify LIP if interventions ineffective or patient reports new pain 7. Monitor vital signs including pulse ox, end-tidal CO2 based on pain intervention 8. Reassess pain per policy 9. Teach patient or legal route sales representative interventions for comforting Outcome: Progressing Note: Evaluation of progress towards goal: Pain medication administered PRN per request and as scheduled in patient's MAR Problem: Safety Goal: Patient will be injury free during hospitalization Description: INTERVENTIONS: 1. Assess patient's risk for falls and implement fall prevention plan of care per policy 2. Provide and maintain a safe environment 3. Proper use of double Identifiers 4. Medication administration using the 5 rights 5. Hand hygiene 6. Specimens are labeled at the bedside 7. Instruct patient/ patient route sales representative about use of safety devices 8. Include patient/ patient route sales representative in decisions related to safety Outcome: Progressing Note: Evaluation of progress towards goal: Call light in reach for safety and assistance, safety maintaned Problem: Infection Goal: Absence of infection during hospitalization Description: INTERVENTIONS 1. Assess and monitor for signs and symptoms of infection. 2. Monitor lab/diagnostic results. 3. Monitor all insertion sites i.e., indwelling lines, tubes and drains. 4. Monitor endotracheal (as able) and nasal secretions for changes in amount and color. 5. Administer medications as ordered. 6. Instruct and encourage patient and family to use good hand hygiene technique. 7. Identify and instruct patient/patient route sales representative in use of appropriate isolation precautionsfor identified infection/symptoms. 8. Provide and discuss with patient/patient route sales representative on educational MDRO sheet. 9. Encourage and monitor nutritional status daily and consult manuscript editor if indicated. 10. Implement neutropenic guidelines as needed. Outcome: Progressing Note: Evaluation of progress towards goal: monitor for s/s of infection, treat per orders Problem: Knowledge Deficit Goal: Patient/patient route sales representative demonstrates understanding of disease process, treatment plan,medications, and discharge instructions Description: INTERVENTIONS 1. Complete learning assessment and assess knowledge base 2. Provide teaching at level of understanding 3. Provide teaching via preferred learning method(s) Outcome: Progressing Note: Evaluation of progress towards goal: Keep pt updated on poc and new testing, results, and procedures Problem: Discharge Planning Goal: Discharge to post-acute care, other facility, or home with appropriate resources Description: Patient's goal is: INTERVENTIONS 1. Conduct assessment to determine patient/family and health care team treatment goals, and need for post-acute services based on payer coverage, community resources, and patient preferences, and barriers to discharge 2. Coordinate with Social work, Care Navigation, and Utilization Review to arrange appropriate level of services according to patient's needs based on patient preference and payer coverage in collaboration with the physician and health care team 3. Address psychosocial, clinical, and financial barriers to discharge as identified in assessment in conjunction with the patient/family and health care team 4. Consult appropriate ancillary services (i.e.. PT/OT/ST, etc) as needed 5. Communicate with and update the patient/family, physician, and health care team regarding progress on the discharge plan 6. Identify discharge learning needs (meds, wound care, etc). 7. Arrange for needed discharge transportation as appropriate Outcome: Progressing Note: Evaluation of progress towards goal: Review discharge plans with pt, verbalizes understanding * Plan of Care - Nava Brown RN - 03/06/2025 9:00 PM EDT Problem: Pain Goal: Patient goal is pain score less than 4, able to rest, and participant in treatment plan as appropriate Description: INTERVENTIONS: 1. Encourage patient or legal route sales representative to report early pain and ask for pain medicine when needed 2. Assess pain using appropriate pain scale and include the scale used when documenting 3. Administer analgesics based on type and severity of pain and evaluate response within appropriate time frame 4. Implement non-pharmacological measures as appropriate and evaluate response 5. Consider cultural and social influences on pain and pain management 6. Notify LIP if interventions ineffective or patient reports new pain 7. Monitor vital signs including pulse ox, end-tidal CO2 based on pain intervention 8. Reassess pain per policy 9. Teach patient or legal route sales representative interventions for comforting Outcome: Progressing Note: Evaluation of progress towards goal: Patient's pain is assessed and documented with appropriate pain scale. Patient's pain is relieved with PRN medications. Will continue to assess and monitor per hospital policy. Problem: Safety Goal: Patient will be injury free during hospitalization Description: INTERVENTIONS: 1. Assess patient's risk for falls and implement fall prevention plan of care per policy 2. Provide and maintain a safe environment 3. Proper use of double Identifiers 4. Medication administration using the 5 rights 5. Hand hygiene 6. Specimens are labeled at the bedside 7. Instruct patient/ patient route sales representative about use of safety devices 8. Include patient/ patient route sales representative in decisions related to safety Outcome: Progressing Note: Evaluation of progress towards goal: Pt remains free from falls and injury, hand hygiene in and out of room, specimens labeled at bedside Problem: Infection Goal: Absence of infection during hospitalization Description: INTERVENTIONS 1. Assess and monitor for signs and symptoms of infection. 2. Monitor lab/diagnostic results. 3. Monitor all insertion sites i.e., indwelling lines, tubes and drains. 4. Monitor endotracheal (as able) and nasal secretions for changes in amount and color. 5. Administer medications as ordered. 6. Instruct and encourage patient and family to use good hand hygiene technique. 7. Identify and instruct patient/patient route sales representative in use of appropriate isolation precautionsfor identified infection/symptoms. 8. Provide and discuss with patient/patient route sales representative on educational MDRO sheet. 9. Encourage and monitor nutritional status daily and consult manuscript editor if indicated. 10. Implement neutropenic guidelines as needed. Outcome: Progressing Note: Evaluation of progress towards goal: Patient does not display s/s of infection.Prophylactic antibiotic given. Will continue to monitor patient, labs, and mews score. Problem: Knowledge Deficit Goal: Patient/patient route sales representative demonstrates understanding of disease process, treatment plan,medications, and discharge instructions Description: INTERVENTIONS 1. Complete learning assessment and assess knowledge base 2. Provide teaching at level of understanding 3. Provide teaching via preferred learning method(s) Outcome: Progressing Note: Evaluation of progress towards goal: Patient updated & verbalizes understanding of POC along with medication education. Will continue to update patient. Patient is encouraged to voice concerns or ask questions regarding care. Problem: Discharge Planning Goal: Discharge to post-acute care, other facility, or home with appropriate resources Description: Patient's goal is: INTERVENTIONS 1. Conduct assessment to determine patient/family and health care team treatment goals, and need for post-acute services based on payer coverage, community resources, and patient preferences, and barriers to discharge 2. Coordinate with Social work, Care Navigation, and Utilization Review to arrange appropriate level of services according to patient's needs based on patient preference and payer coverage in collaboration with the physician and health care team 3. Address psychosocial, clinical, and financial barriers to discharge as identified in assessment in conjunction with the patient/family and health care team 4. Consult appropriate ancillary services (i.e.. PT/OT/ST, etc) as needed 5. Communicate with and update the patient/family, physician, and health care team regarding progress on the discharge plan 6. Identify discharge learning needs (meds, wound care, etc). 7. Arrange for needed discharge transportation as appropriate Outcome: Progressing Note: Evaluation of progress towards goal: Will continue to monitor for readiness for discharge. Discharge is not recommended at this time. Problem: Moderate - High Risk Fall Score Description: Uma[place] Fall Score of =/> 25 or indicated by [facility] Assessment Goal: Patient should be free from fall Description: Interventions: 1. [place] to environment 2. Hourly rounds addressing the 4 P's (Pain, Positioning, Possessions, Potty) 3. Clear area of hazards (spills, clutter, electrical cords, unnecessary equipment) 4. Place equipment (bed & TV controls, call light, phone, urinal) within reach 5. Encourage patient to wear glasses and hearing aides as appropriate 6. Maintain bed in lowest position 7. Lock wheels on bed/wheelchair 8. Provide adequate lighting, including night light 9. Assess need for additional bedding, food/fluids, pain med's prior to sleep/routinely 10. Provide gripper slippers or personal non-skid footwear 11. Teach patient and patient route sales representative to maintain environment for safety and engage in all aspects of fall prevention program 12. Remind patient to call for help before getting out of bed 13. Initiate bed/chair/exit alarms supportive devices as appropriate, (chair wedge, no-skid floor mat, raised edge mattress, hip protectors) 14. Locate patient bed assignment for optimal visualization 15. Evaluate and identify Safe Patient Handling Equipment needs 16. Provide supervision when out of bed or chair 17. Utilize gait belt as needed to assist with ambulation 18. Place adaptive equipment (cane, walker) within reach 19. Request patient route sales representative bring adaptive equipment/mobility aids from home or obtain and provide as needed 20. Consult pharmacy regarding effects of med's affecting mobility, cognition, and alternatives 21. Obtain physician order for PT if risk factors associated with mobility are present 22. Obtain physician order for OT as appropriate 23. Utilize diversional activities 24. Educate patient and patient route sales representative how to maintain a safe environment during visitationtimes (notify nurse prior to leaving bedside) 25. Consider appropriateness of medical or non-medical affairs leader 26. Set up voiding schedule as appropriate (every 2 hours) Outcome: Progressing Note: Evaluation of progress towards goal: Patient remains free from falls and injuries, 5 P's addressed, bed is in a locked position and has call light within reach. Will continue to monitor. * Plan of Care - Jina Miller MD - 03/06/2025 12:48 PM EDT Images from the original note were not included. Patient reported to have abdominal colic patient noted to have ascites and peripheral edema most likely related to her tumor. Patient has no known history of liver disease liver function noted to be normal. Patient was scheduled to get EGD/colonoscopy earlier this week but she failed to complete her prep 3 times and in row. Procedures can be scheduled as an outpatient. For ascites consider re-consulting IR for further evaluation and possible paracentesis if indicated. Besides that consider Oncology and Nephrology evaluation for the ascites and worsening renal function. If there is any concernof acute abdomen versus abdominal compartment syndrome consider surgical eval. GI team will follow remotely. Jina Miller MD Gastroenterology and hepatology fellow [facility] * Discharge Planning Note - Ludivina Mccray RN - 03/06/2025 8:07 AM EDT Ongoing Assessment for Discharge Needs Reviewed discharge milestones and patient needs related to discharge plan. Current estimated discharge date of Mar 07, 2025 has been reviewed by treatment team. Ongoing Assessment for Discharge Needs Flowsheet Row Most Recent Value Referral To Community Referrals / Resources Provided Denies needs Services Requested Patient expects to be discharged to: home Does the patient wish to have family/friend/caregiver involved in their discharge planning? No, thepatient does not wish to have family/friend/caregiver involved in their discharge planning Discharge Disposition Home with self care Does the patient need discharge transportation arranged? No Barriers to discharge include: diet advancement and tolerance, nephro consult, monitor WBC CN met with patient at bedside, discharge plan remains: Home self care. Patients Daniel is at no cost to her and was sent in to her local [facility] pharmacy. CN will continue to follow and is available should any further needs arise. - Ludivina Mccray RN 03/06/25 8:07 AM * Plan of Care - Kita Ramirez RN - 03/06/2025 7:38 AM EDT Problem: Pain Goal: Patient goal is pain score less than 4, able to rest, and participant in treatment plan as appropriate Description: INTERVENTIONS: 1. Encourage patient or legal route sales representative to report early pain and ask for pain medicine when needed 2. Assess pain using appropriate pain scale and include the scale used when documenting 3. Administer analgesics based on type and severity of pain and evaluate response within appropriate time frame 4. Implement non-pharmacological measures as appropriate and evaluate response 5. Consider cultural and social influences on pain and pain management 6. Notify LIP if interventions ineffective or patient reports new pain 7. Monitor vital signs including pulse ox, end-tidal CO2 based on pain intervention 8. Reassess pain per policy 9. Teach patient or legal route sales representative interventions for comforting Outcome: Progressing Note: Evaluation of progress towards goal:Pain medication administered PRN per request and as scheduled in patient's MAR Problem: Safety Goal: Patient will be injury free during hospitalization Description: INTERVENTIONS: 1. Assess patient's risk for falls and implement fall prevention plan of care per policy 2. Provide and maintain a safe environment 3. Proper use of double Identifiers 4. Medication administration using the 5 rights 5. Hand hygiene 6. Specimens are labeled at the bedside 7. Instruct patient/ patient route sales representative about use of safety devices 8. Include patient/ patient route sales representative in decisions related to safety Outcome: Progressing Note: Evaluation of progress towards goal: Call light in reach for safety and assistance, safety maintaned Problem: Infection Goal: Absence of infection during hospitalization Description: INTERVENTIONS 1. Assess and monitor for signs and symptoms of infection. 2. Monitor lab/diagnostic results. 3. Monitor all insertion sites i.e., indwelling lines, tubes and drains. 4. Monitor endotracheal (as able) and nasal secretions for changes in amount and color. 5. Administer medications as ordered. 6. Instruct and encourage patient and family to use good hand hygiene technique. 7. Identify and instruct patient/patient route sales representative in use of appropriate isolation precautionsfor identified infection/symptoms. 8. Provide and discuss with patient/patient route sales representative on educational MDRO sheet. 9. Encourage and monitor nutritional status daily and consult manuscript editor if indicated. 10. Implement neutropenic guidelines as needed. Outcome: Progressing Note: Evaluation of progress towards goal: monitor for s/s of infection, treat per orders Problem: Knowledge Deficit Goal: Patient/patient route sales representative demonstrates understanding of disease process, treatment plan,medications, and discharge instructions Description: INTERVENTIONS 1. Complete learning assessment and assess knowledge base 2. Provide teaching at level of understanding 3. Provide teaching via preferred learning method(s) Outcome: Progressing Note: Evaluation of progress towards goal: Keep pt updated on poc and new testing, results, and procedures Problem: Discharge Planning Goal: Discharge to post-acute care, other facility, or home with appropriate resources Description: Patient's goal is: INTERVENTIONS 1. Conduct assessment to determine patient/family and health care team treatment goals, and need for post-acute services based on payer coverage, community resources, and patient preferences, and barriers to discharge 2. Coordinate with Social work, Care Navigation, and Utilization Review to arrange appropriate level of services according to patient's needs based on patient preference and payer coverage in collaboration with the physician and health care team 3. Address psychosocial, clinical, and financial barriers to discharge as identified in assessment in conjunction with the patient/family and health care team 4. Consult appropriate ancillary services (i.e.. PT/OT/ST, etc) as needed 5. Communicate with and update the patient/family, physician, and health care team regarding progress on the discharge plan 6. Identify discharge learning needs (meds, wound care, etc). 7. Arrange for needed discharge transportation as appropriate Outcome: Progressing Note: Evaluation of progress towards goal: Review discharge plans with pt, verbalizes understanding Problem: Pain Goal: Patient goal is pain score less than 4, able to rest, and participant in treatment plan as appropriate Description: INTERVENTIONS: 1. Encourage patient or legal route sales representative to report early pain and ask for pain medicine when needed 2. Assess pain using appropriate pain scale and include the scale used when documenting 3. Administer analgesics based on type and severity of pain and evaluate response within appropriate time frame 4. Implement non-pharmacological measures as appropriate and evaluate response 5. Consider cultural and social influences on pain and pain management 6. Notify LIP if interventions ineffective or patient reports new pain 7. Monitor vital signs including pulse ox, end-tidal CO2 based on pain intervention 8. Reassess pain per policy 9. Teach patient or legal route sales representative interventions for comforting Outcome: Progressing Note: Evaluation of progress towards goal:Pain medication administered PRN per request and as scheduled in patient's MAR Problem: Safety Goal: Patient will be injury free during hospitalization Description: INTERVENTIONS: 1. Assess patient's risk for falls and implement fall prevention plan of care per policy 2. Provide and maintain a safe environment 3. Proper use of double Identifiers 4. Medication administration using the 5 rights 5. Hand hygiene 6. Specimens are labeled at the bedside 7. Instruct patient/ patient route sales representative about use of safety devices 8. Include patient/ patient route sales representative in decisions related to safety Outcome: Progressing Note: Evaluation of progress towards goal: Call light in reach for safety and assistance, safety maintaned Problem: Infection Goal: Absence of infection during hospitalization Description: INTERVENTIONS 1. Assess and monitor for signs and symptoms of infection. 2. Monitor lab/diagnostic results. 3. Monitor all insertion sites i.e., indwelling lines, tubes and drains. 4. Monitor endotracheal (as able) and nasal secretions for changes in amount and color. 5. Administer medications as ordered. 6. Instruct and encourage patient and family to use good hand hygiene technique. 7. Identify and instruct patient/patient route sales representative in use of appropriate isolation precautionsfor identified infection/symptoms. 8. Provide and discuss with patient/patient route sales representative on educational MDRO sheet. 9. Encourage and monitor nutritional status daily and consult manuscript editor if indicated. 10. Implement neutropenic guidelines as needed. Outcome: Progressing Note: Evaluation of progress towards goal: monitor for s/s of infection, treat per orders Problem: Knowledge Deficit Goal: Patient/patient route sales representative demonstrates understanding of disease process, treatment plan,medications, and discharge instructions Description: INTERVENTIONS 1. Complete learning assessment and assess knowledge base 2. Provide teaching at level of understanding 3. Provide teaching via preferred learning method(s) Outcome: Progressing Note: Evaluation of progress towards goal: Keep pt updated on poc and new testing, results, and procedures Problem: Discharge Planning Goal: Discharge to post-acute care, other facility, or home with appropriate resources Description: Patient's goal is: INTERVENTIONS 1. Conduct assessment to determine patient/family and health care team treatment goals, and need for post-acute services based on payer coverage, community resources, and patient preferences, and barriers to discharge 2. Coordinate with Social work, Care Navigation, and Utilization Review to arrange appropriate level of services according to patient's needs based on patient preference and payer coverage in collaboration with the physician and health care team 3. Address psychosocial, clinical, and financial barriers to discharge as identified in assessment in conjunction with the patient/family and health care team 4. Consult appropriate ancillary services (i.e.. PT/OT/ST, etc) as needed 5. Communicate with and update the patient/family, physician, and health care team regarding progress on the discharge plan 6. Identify discharge learning needs (meds, wound care, etc). 7. Arrange for needed discharge transportation as appropriate Outcome: Progressing Note: Evaluation of progress towards goal: Review discharge plans with pt, verbalizes understanding * Plan of Care - Lisa Renato - 03/05/2025 8:43 PM EDT Problem: Pain Goal: Patient goal is pain score less than 4, able to rest, and participant in treatment plan as appropriate Description: INTERVENTIONS: 1. Encourage patient or legal route sales representative to report early pain and ask for pain medicine when needed 2. Assess pain using appropriate pain scale and include the scale used when documenting 3. Administer analgesics based on type and severity of pain and evaluate response within appropriate time frame 4. Implement non-pharmacological measures as appropriate and evaluate response 5. Consider cultural and social influences on pain and pain management 6. Notify LIP if interventions ineffective or patient reports new pain 7. Monitor vital signs including pulse ox, end-tidal CO2 based on pain intervention 8. Reassess pain per policy 9. Teach patient or legal route sales representative interventions for comforting Outcome: Progressing Note: Evaluation of progress towards goal: \Patient's pain is assessed and documented with appropriate pain scale. Patient does not report pain thus far. Problem: Safety Goal: Patient will be injury free during hospitalization Description: INTERVENTIONS: 1. Assess patient's risk for falls and implement fall prevention plan of care per policy 2. Provide and maintain a safe environment 3. Proper use of double Identifiers 4. Medication administration using the 5 rights 5. Hand hygiene 6. Specimens are labeled at the bedside 7. Instruct patient/ patient route sales representative about use of safety devices 8. Include patient/ patient route sales representative in decisions related to safety Outcome: Progressing Note: Evaluation of progress towards goal: Pt remains free from falls and injury, hand hygiene in and out of room, specimens labeled at bedside Problem: Infection Goal: Absence of infection during hospitalization Description: INTERVENTIONS 1. Assess and monitor for signs and symptoms of infection. 2. Monitor lab/diagnostic results. 3. Monitor all insertion sites i.e., indwelling lines, tubes and drains. 4. Monitor endotracheal (as able) and nasal secretions for changes in amount and color. 5. Administer medications as ordered. 6. Instruct and encourage patient and family to use good hand hygiene technique. 7. Identify and instruct patient/patient route sales representative in use of appropriate isolation precautionsfor identified infection/symptoms. 8. Provide and discuss with patient/patient route sales representative on educational MDRO sheet. 9. Encourage and monitor nutritional status daily and consult manuscript editor if indicated. 10. Implement neutropenic guidelines as needed. Outcome: Progressing Note: Evaluation of progress towards goal: Afebrile, labs and VS monitored Problem: Knowledge Deficit Goal: Patient/patient route sales representative demonstrates understanding of disease process, treatment plan,medications, and discharge instructions Description: INTERVENTIONS 1. Complete learning assessment and assess knowledge base 2. Provide teaching at level of understanding 3. Provide teaching via preferred learning method(s) Outcome: Progressing Note: Evaluation of progress towards goal: Patient updated & verbalizes understanding of POC along with medication education. Will continue to update patient. Patient is encouraged to voice concerns or ask questions regarding care. Problem: Moderate - High Risk Fall Score Description: Umaña Fall Score of =/> 25 or indicated by [facility] Assessment Goal: Patient should be free from fall Description: Interventions: 1. [place] to environment 2. Hourly rounds addressing the 4 P's (Pain, Positioning, Possessions, Potty) 3. Clear area of hazards (spills, clutter, electrical cords, unnecessary equipment) 4. Place equipment (bed & TV controls, call light, phone, urinal) within reach 5. Encourage patient to wear glasses and hearing aides as appropriate 6. Maintain bed in lowest position 7. Lock wheels on bed/wheelchair 8. Provide adequate lighting, including night light 9. Assess need for additional bedding, food/fluids, pain med's prior to sleep/routinely 10. Provide gripper slippers or personal non-skid footwear 11. Teach patient and patient route sales representative to maintain environment for safety and engage in all aspects of fall prevention program 12. Remind patient to call for help before getting out of bed 13. Initiate bed/chair/exit alarms supportive devices as appropriate, (chair wedge, no-skid floor mat, raised edge mattress, hip protectors) 14. Locate patient bed assignment for optimal visualization 15. Evaluate and identify Safe Patient Handling Equipment needs 16. Provide supervision when out of bed or chair 17. Utilize gait belt as needed to assist with ambulation 18. Place adaptive equipment (cane, walker) within reach 19. Request patient route sales representative bring adaptive equipment/mobility aids from home or obtain and provide as needed 20. Consult pharmacy regarding effects of med's affecting mobility, cognition, and alternatives 21. Obtain physician order for PT if risk factors associated with mobility are present 22. Obtain physician order for OT as appropriate 23. Utilize diversional activities 24. Educate patient and patient route sales representative how to maintain a safe environment during visitationtimes (notify nurse prior to leaving bedside) 25. Consider appropriateness of medical or non-medical affairs leader 26. Set up voiding schedule as appropriate (every 2 hours) Outcome: Progressing Note: Evaluation of progress towards goal: Patient remains free from falls and injuries, 5 P's addressed, bed is in a locked position and has call light within reach. * Plan of Care - Jina Miller MD - 03/05/2025 1:29 PM EDT Images from the original note were not included. Patient did not take her bowel preparation for the 3rd time. GI can not proceed with procedures at this time given noncompliance with bowel preparation. Can follow up with GI clinic as an outpatient for EGD/colonoscopy. Jina Miller MD Gastroenterology and hepatology fellow [facility] * Plan of Care - Medina Lott RN - 03/05/2025 10:23 AM EDT Problem: Pain Goal: Patient goal is pain score less than 4, able to rest, and participant in treatment plan as appropriate Description: INTERVENTIONS: 1. Encourage patient or legal route sales representative to report early pain and ask for pain medicine when needed 2. Assess pain using appropriate pain scale and include the scale used when documenting 3. Administer analgesics based on type and severity of pain and evaluate response within appropriate time frame 4. Implement non-pharmacological measures as appropriate and evaluate response 5. Consider cultural and social influences on pain and pain management 6. Notify LIP if interventions ineffective or patient reports new pain 7. Monitor vital signs including pulse ox, end-tidal CO2 based on pain intervention 8. Reassess pain per policy 9. Teach patient or legal route sales representative interventions for comforting Outcome: Progressing Note: Evaluation of progress towards goal: pain evaluated q4h Problem: Safety Goal: Patient will be injury free during hospitalization Description: INTERVENTIONS: 1. Assess patient's risk for falls and implement fall prevention plan of care per policy 2. Provide and maintain a safe environment 3. Proper use of double Identifiers 4. Medication administration using the 5 rights 5. Hand hygiene 6. Specimens are labeled at the bedside 7. Instruct patient/ patient route sales representative about use of safety devices 8. Include patient/ patient route sales representative in decisions related to safety Outcome: Progressing Note: Evaluation of progress towards goal: hourly rounding Problem: Infection Goal: Absence of infection during hospitalization Description: INTERVENTIONS 1. Assess and monitor for signs and symptoms of infection. 2. Monitor lab/diagnostic results. 3. Monitor all insertion sites i.e., indwelling lines, tubes and drains. 4. Monitor endotracheal (as able) and nasal secretions for changes in amount and color. 5. Administer medications as ordered. 6. Instruct and encourage patient and family to use good hand hygiene technique. 7. Identify and instruct patient/patient route sales representative in use of appropriate isolation precautionsfor identified infection/symptoms. 8. Provide and discuss with patient/patient route sales representative on educational MDRO sheet. 9. Encourage and monitor nutritional status daily and consult manuscript editor if indicated. 10. Implement neutropenic guidelines as needed. Outcome: Progressing Note: Evaluation of progress towards goal: labs monitored daily * Discharge Planning Note - Ludivina Mccray RN - 03/05/2025 8:19 AM EDT Ongoing Assessment for Discharge Needs Reviewed discharge milestones and patient needs related to discharge plan. Current estimated discharge date of Mar 07, 2025 has been reviewed by treatment team. Ongoing Assessment for Discharge Needs Flowsheet Row Most Recent Value Referral To Community Referrals / Resources Provided Denies needs Services Requested Patient expects to be discharged to: home Does the patient wish to have family/friend/caregiver involved in their discharge planning? No, thepatient does not wish to have family/friend/caregiver involved in their discharge planning Discharge Disposition Home with self care Does the patient need discharge transportation arranged? No Barriers to discharge include: Colonoscopy/ EGD timing to be determined, Heparin drip, IV antibiotics, diet advancement & tolerance CN met with patient at bedside, discharge plan remains: Home self care. CN will continue to follow and is available should any further needs arise. - Ludivina Mccray RN 03/05/25 8:19 AM Cost of Emiliequis is zero dollars. - Ludivina Mccray RN 03/05/25 3:06 PM * Plan of Care - Lisa Gross - 03/04/2025 7:40 PM EDT Problem: Pain Goal: Patient goal is pain score less than 4, able to rest, and participant in treatment plan as appropriate Description: INTERVENTIONS: 1. Encourage patient or legal route sales representative to report early pain and ask for pain medicine when needed 2. Assess pain using appropriate pain scale and include the scale used when documenting 3. Administer analgesics based on type and severity of pain and evaluate response within appropriate time frame 4. Implement non-pharmacological measures as appropriate and evaluate response 5. Consider cultural and social influences on pain and pain management 6. Notify LIP if interventions ineffective or patient reports new pain 7. Monitor vital signs including pulse ox, end-tidal CO2 based on pain intervention 8. Reassess pain per policy 9. Teach patient or legal route sales representative interventions for comforting Outcome: Progressing Note: Evaluation of progress towards goal: Patient's pain is assessed and documented with appropriate pain scale. Patient does not report pain thus far. Problem: Safety Goal: Patient will be injury free during hospitalization Description: INTERVENTIONS: 1. Assess patient's risk for falls and implement fall prevention plan of care per policy 2. Provide and maintain a safe environment 3. Proper use of double Identifiers 4. Medication administration using the 5 rights 5. Hand hygiene 6. Specimens are labeled at the bedside 7. Instruct patient/ patient route sales representative about use of safety devices 8. Include patient/ patient route sales representative in decisions related to safety Outcome: Progressing Note: Evaluation of progress towards goal: Pt remains free from falls and injury, hand hygiene in and out of room, specimens labeled at bedside Problem: Infection Goal: Absence of infection during hospitalization Description: INTERVENTIONS 1. Assess and monitor for signs and symptoms of infection. 2. Monitor lab/diagnostic results. 3. Monitor all insertion sites i.e., indwelling lines, tubes and drains. 4. Monitor endotracheal (as able) and nasal secretions for changes in amount and color. 5. Administer medications as ordered. 6. Instruct and encourage patient and family to use good hand hygiene technique. 7. Identify and instruct patient/patient route sales representative in use of appropriate isolation precautionsfor identified infection/symptoms. 8. Provide and discuss with patient/patient route sales representative on educational MDRO sheet. 9. Encourage and monitor nutritional status daily and consult manuscript editor if indicated. 10. Implement neutropenic guidelines as needed. Outcome: Progressing Note: Evaluation of progress towards goal: Afebrile, labs and VS monitored Problem: Knowledge Deficit Goal: Patient/patient route sales representative demonstrates understanding of disease process, treatment plan,medications, and discharge instructions Description: INTERVENTIONS 1. Complete learning assessment and assess knowledge base 2. Provide teaching at level of understanding 3. Provide teaching via preferred learning method(s) Outcome: Progressing Note: Evaluation of progress towards goal: Patient updated & verbalizes understanding of POC along with medication education. Will continue to update patient. Patient is encouraged to voice concerns or ask questions regarding care. Problem: Moderate - High Risk Fall Score Description: Umaña Fall Score of =/> 25 or indicated by [facility] Assessment Goal: Patient should be free from fall Description: Interventions: 1. [place] to environment 2. Hourly rounds addressing the 4 P's (Pain, Positioning, Possessions, Potty) 3. Clear area of hazards (spills, clutter, electrical cords, unnecessary equipment) 4. Place equipment (bed & TV controls, call light, phone, urinal) within reach 5. Encourage patient to wear glasses and hearing aides as appropriate 6. Maintain bed in lowest position 7. Lock wheels on bed/wheelchair 8. Provide adequate lighting, including night light 9. Assess need for additional bedding, food/fluids, pain med's prior to sleep/routinely 10. Provide gripper slippers or personal non-skid footwear 11. Teach patient and patient route sales representative to maintain environment for safety and engage in all aspects of fall prevention program 12. Remind patient to call for help before getting out of bed 13. Initiate bed/chair/exit alarms supportive devices as appropriate, (chair wedge, no-skid floor mat, raised edge mattress, hip protectors) 14. Locate patient bed assignment for optimal visualization 15. Evaluate and identify Safe Patient Handling Equipment needs 16. Provide supervision when out of bed or chair 17. Utilize gait belt as needed to assist with ambulation 18. Place adaptive equipment (cane, walker) within reach 19. Request patient route sales representative bring adaptive equipment/mobility aids from home or obtain and provide as needed 20. Consult pharmacy regarding effects of med's affecting mobility, cognition, and alternatives 21. Obtain physician order for PT if risk factors associated with mobility are present 22. Obtain physician order for OT as appropriate 23. Utilize diversional activities 24. Educate patient and patient route sales representative how to maintain a safe environment during visitationtimes (notify nurse prior to leaving bedside) 25. Consider appropriateness of medical or non-medical affairs leader 26. Set up voiding schedule as appropriate (every 2 hours) Outcome: Progressing Note: Evaluation of progress towards goal: Patient remains free from falls and injuries, 5 P's addressed, bed is in a locked position and has call light within reach. * Plan of Care - Medina Lott RN - 03/04/2025 8:40 AM EDT Problem: Pain Goal: Patient goal is pain score less than 4, able to rest, and participant in treatment plan as appropriate Description: INTERVENTIONS: 1. Encourage patient or legal route sales representative to report early pain and ask for pain medicine when needed 2. Assess pain using appropriate pain scale and include the scale used when documenting 3. Administer analgesics based on type and severity of pain and evaluate response within appropriate time frame 4. Implement non-pharmacological measures as appropriate and evaluate response 5. Consider cultural and social influences on pain and pain management 6. Notify LIP if interventions ineffective or patient reports new pain 7. Monitor vital signs including pulse ox, end-tidal CO2 based on pain intervention 8. Reassess pain per policy 9. Teach patient or legal route sales representative interventions for comforting Outcome: Progressing Note: Evaluation of progress towards goal: pain evaluated q4h Problem: Safety Goal: Patient will be injury free during hospitalization Description: INTERVENTIONS: 1. Assess patient's risk for falls and implement fall prevention plan of care per policy 2. Provide and maintain a safe environment 3. Proper use of double Identifiers 4. Medication administration using the 5 rights 5. Hand hygiene 6. Specimens are labeled at the bedside 7. Instruct patient/ patient route sales representative about use of safety devices 8. Include patient/ patient route sales representative in decisions related to safety Outcome: Progressing Note: Evaluation of progress towards goal: hourly rounding Problem: Infection Goal: Absence of infection during hospitalization Description: INTERVENTIONS 1. Assess and monitor for signs and symptoms of infection. 2. Monitor lab/diagnostic results. 3. Monitor all insertion sites i.e., indwelling lines, tubes and drains. 4. Monitor endotracheal (as able) and nasal secretions for changes in amount and color. 5. Administer medications as ordered. 6. Instruct and encourage patient and family to use good hand hygiene technique. 7. Identify and instruct patient/patient route sales representative in use of appropriate isolation precautionsfor identified infection/symptoms. 8. Provide and discuss with patient/patient route sales representative on educational MDRO sheet. 9. Encourage and monitor nutritional status daily and consult manuscript editor if indicated. 10. Implement neutropenic guidelines as needed. Outcome: Progressing Note: Evaluation of progress towards goal: labs monitored daily * Discharge Planning Note - Luidvina Mccray RN - 03/04/2025 8:24 AM EDT Ongoing Assessment for Discharge Needs Reviewed discharge milestones and patient needs related to discharge plan. Current estimated discharge date of Mar 05, 2025 has been reviewed by treatment team. Ongoing Assessment for Discharge Needs Flowsheet Row Most Recent Value Referral To Community Referrals / Resources Provided Denies needs Services Requested Patient expects to be discharged to: home Does the patient wish to have family/friend/caregiver involved in their discharge planning? No, thepatient does not wish to have family/friend/caregiver involved in their discharge planning Discharge Disposition Home with self care Does the patient need discharge transportation arranged? No Barriers to discharge include: heparin drip, diet advancement & tolerance, EGD/Colonoscopy TBD,MOISÉS antibiotics CN met with patient at bedside, discharge plan remains: Home self care. CN will continue to follow and is available should any further needs arise. - Ludivina Mccray RN 03/04/25 8:24 AM * Plan of Care - Lisa Renato - 03/03/2025 11:54 PM EDT Problem: Pain Goal: Patient goal is pain score less than 4, able to rest, and participant in treatment plan as appropriate Description: INTERVENTIONS: 1. Encourage patient or legal route sales representative to report early pain and ask for pain medicine when needed 2. Assess pain using appropriate pain scale and include the scale used when documenting 3. Administer analgesics based on type and severity of pain and evaluate response within appropriate time frame 4. Implement non-pharmacological measures as appropriate and evaluate response 5. Consider cultural and social influences on pain and pain management 6. Notify LIP if interventions ineffective or patient reports new pain 7. Monitor vital signs including pulse ox, end-tidal CO2 based on pain intervention 8. Reassess pain per policy 9. Teach patient or legal route sales representative interventions for comforting Outcome: Progressing Note: Evaluation of progress towards goal: Patient's pain is assessed and documented with appropriate pain scale. Patient does not report pain thus far. Problem: Safety Goal: Patient will be injury free during hospitalization Description: INTERVENTIONS: 1. Assess patient's risk for falls and implement fall prevention plan of care per policy 2. Provide and maintain a safe environment 3. Proper use of double Identifiers 4. Medication administration using the 5 rights 5. Hand hygiene 6. Specimens are labeled at the bedside 7. Instruct patient/ patient route sales representative about use of safety devices 8. Include patient/ patient route sales representative in decisions related to safety Outcome: Progressing Note: Evaluation of progress towards goal: Pt remains free from falls and injury, hand hygiene in and out of room, specimens labeled at bedside Problem: Infection Goal: Absence of infection during hospitalization Description: INTERVENTIONS 1. Assess and monitor for signs and symptoms of infection. 2. Monitor lab/diagnostic results. 3. Monitor all insertion sites i.e., indwelling lines, tubes and drains. 4. Monitor endotracheal (as able) and nasal secretions for changes in amount and color. 5. Administer medications as ordered. 6. Instruct and encourage patient and family to use good hand hygiene technique. 7. Identify and instruct patient/patient route sales representative in use of appropriate isolation precautionsfor identified infection/symptoms. 8. Provide and discuss with patient/patient route sales representative on educational MDRO sheet. 9. Encourage and monitor nutritional status daily and consult manuscript editor if indicated. 10. Implement neutropenic guidelines as needed. Outcome: Progressing Note: Evaluation of progress towards goal: Afebrile, labs and VS monitored Problem: Knowledge Deficit Goal: Patient/patient route sales representative demonstrates understanding of disease process, treatment plan,medications, and discharge instructions Description: INTERVENTIONS 1. Complete learning assessment and assess knowledge base 2. Provide teaching at level of understanding 3. Provide teaching via preferred learning method(s) Outcome: Progressing Note: Evaluation of progress towards goal: Patient updated & verbalizes understanding of POC along with medication education. Will continue to update patient. Patient is encouraged to voice concerns or ask questions regarding care. Problem: Moderate - High Risk Fall Score Description: Umaña Fall Score of =/> 25 or indicated by [facility] Assessment Goal: Patient should be free from fall Description: Interventions: 1. [place] to environment 2. Hourly rounds addressing the 4 P's (Pain, Positioning, Possessions, Potty) 3. Clear area of hazards (spills, clutter, electrical cords, unnecessary equipment) 4. Place equipment (bed & TV controls, call light, phone, urinal) within reach 5. Encourage patient to wear glasses and hearing aides as appropriate 6. Maintain bed in lowest position 7. Lock wheels on bed/wheelchair 8. Provide adequate lighting, including night light 9. Assess need for additional bedding, food/fluids, pain med's prior to sleep/routinely 10. Provide gripper slippers or personal non-skid footwear 11. Teach patient and patient route sales representative to maintain environment for safety and engage in all aspects of fall prevention program 12. Remind patient to call for help before getting out of bed 13. Initiate bed/chair/exit alarms supportive devices as appropriate, (chair wedge, no-skid floor mat, raised edge mattress, hip protectors) 14. Locate patient bed assignment for optimal visualization 15. Evaluate and identify Safe Patient Handling Equipment needs 16. Provide supervision when out of bed or chair 17. Utilize gait belt as needed to assist with ambulation 18. Place adaptive equipment (cane, walker) within reach 19. Request patient route sales representative bring adaptive equipment/mobility aids from home or obtain and provide as needed 20. Consult pharmacy regarding effects of med's affecting mobility, cognition, and alternatives 21. Obtain physician order for PT if risk factors associated with mobility are present 22. Obtain physician order for OT as appropriate 23. Utilize diversional activities 24. Educate patient and patient route sales representative how to maintain a safe environment during visitationtimes (notify nurse prior to leaving bedside) 25. Consider appropriateness of medical or non-medical affairs leader 26. Set up voiding schedule as appropriate (every 2 hours) Outcome: Progressing Note: Evaluation of progress towards goal: Patient remains free from falls and injuries, 5 P's addressed, bed is in a locked position and has call light within reach. * Plan of Care - Rowena Villavicencio RN - 03/02/2025 11:02 PM EDT Problem: Pain Goal: Patient goal is pain score less than 4, able to rest, and participant in treatment plan as appropriate Description: INTERVENTIONS: 1. Encourage patient or legal route sales representative to report early pain and ask for pain medicine when needed 2. Assess pain using appropriate pain scale and include the scale used when documenting 3. Administer analgesics based on type and severity of pain and evaluate response within appropriate time frame 4. Implement non-pharmacological measures as appropriate and evaluate response 5. Consider cultural and social influences on pain and pain management 6. Notify LIP if interventions ineffective or patient reports new pain 7. Monitor vital signs including pulse ox, end-tidal CO2 based on pain intervention 8. Reassess pain per policy 9. Teach patient or legal route sales representative interventions for comforting Outcome: Progressing Note: Evaluation of progress towards goal: Patient's pain is assessed and documented with appropriate pain scale. Patient's pain is relieved with PRN medications. Will continue to assess and monitor per hospital policy. Problem: Safety Goal: Patient will be injury free during hospitalization Description: INTERVENTIONS: 1. Assess patient's risk for falls and implement fall prevention plan of care per policy 2. Provide and maintain a safe environment 3. Proper use of double Identifiers 4. Medication administration using the 5 rights 5. Hand hygiene 6. Specimens are labeled at the bedside 7. Instruct patient/ patient route sales representative about use of safety devices 8. Include patient/ patient route sales representative in decisions related to safety Outcome: Progressing Note: Evaluation of progress towards goal: Pt remains free from falls and injury, hand hygiene in and out of room, specimens labeled at bedside Problem: Infection Goal: Absence of infection during hospitalization Description: INTERVENTIONS 1. Assess and monitor for signs and symptoms of infection. 2. Monitor lab/diagnostic results. 3. Monitor all insertion sites i.e., indwelling lines, tubes and drains. 4. Monitor endotracheal (as able) and nasal secretions for changes in amount and color. 5. Administer medications as ordered. 6. Instruct and encourage patient and family to use good hand hygiene technique. 7. Identify and instruct patient/patient route sales representative in use of appropriate isolation precautionsfor identified infection/symptoms. 8. Provide and discuss with patient/patient route sales representative on educational MDRO sheet. 9. Encourage and monitor nutritional status daily and consult manuscript editor if indicated. 10. Implement neutropenic guidelines as needed. Outcome: Progressing Note: Evaluation of progress towards goal: Afebrile, insertion sites monitored with no s/s of infection Problem: Moderate - High Risk Fall Score Description: Umaña Fall Score of =/> 25 or indicated by [facility] Assessment Goal: Patient should be free from fall Description: Interventions: 1. [place]idian to environment 2. Hourly rounds addressing the 4 P's (Pain, Positioning, Possessions, Potty) 3. Clear area of hazards (spills, clutter, electrical cords, unnecessary equipment) 4. Place equipment (bed & TV controls, call light, phone, urinal) within reach 5. Encourage patient to wear glasses and hearing aides as appropriate 6. Maintain bed in lowest position 7. Lock wheels on bed/wheelchair 8. Provide adequate lighting, including night light 9. Assess need for additional bedding, food/fluids, pain med's prior to sleep/routinely 10. Provide gripper slippers or personal non-skid footwear 11. Teach patient and patient route sales representative to maintain environment for safety and engage in all aspects of fall prevention program 12. Remind patient to call for help before getting out of bed 13. Initiate bed/chair/exit alarms supportive devices as appropriate, (chair wedge, no-skid floor mat, raised edge mattress, hip protectors) 14. Locate patient bed assignment for optimal visualization 15. Evaluate and identify Safe Patient Handling Equipment needs 16. Provide supervision when out of bed or chair 17. Utilize gait belt as needed to assist with ambulation 18. Place adaptive equipment (cane, walker) within reach 19. Request patient route sales representative bring adaptive equipment/mobility aids from home or obtain and provide as needed 20. Consult pharmacy regarding effects of med's affecting mobility, cognition, and alternatives 21. Obtain physician order for PT if risk factors associated with mobility are present 22. Obtain physician order for OT as appropriate 23. Utilize diversional activities 24. Educate patient and patient route sales representative how to maintain a safe environment during visitationtimes (notify nurse prior to leaving bedside) 25. Consider appropriateness of medical or non-medical affairs leader 26. Set up voiding schedule as appropriate (every 2 hours) Outcome: Progressing Note: Evaluation of progress towards goal: Patient remains free from falls and injuries, 5 P's addressed, bed is in a locked position and has call light within reach. Will continue to monitor. * Plan of Care - Nay Segura MD - 03/02/2025 10:37 AM EDT Brief Gastroenterology note: GI service consulted for endoscopic evaluation to rule out primary malignancy in this patient giventhe elevation in tumor markers and concerns for possible metastatic disease in the liver. Patient could not tolerate bowel prep on and the procedure was canceled on Monday. Will plan for EGD/colonoscopy on Monday03/04/2025 was 2 days prep. Please keep the patient on clear liquid diet starting today. NPO Monday midnight except medicationsand bowel prep. Will give MiraLax bowel prep today and plan for Suprep tomorrow since the patient could not tolerate the GoLYTELY on . Please hold heparin infusion Monday midnight for anticipated procedure on Monday if okay by provider. Nay Segura MD Gastroenterology Fellow * Plan of Care - Dylan Melissa RN - 03/01/2025 8:01 PM EDT Problem: Pain Goal: Patient goal is pain score less than 4, able to rest, and participant in treatment plan as appropriate Description: INTERVENTIONS: 1. Encourage patient or legal route sales representative to report early pain and ask for pain medicine when needed 2. Assess pain using appropriate pain scale and include the scale used when documenting 3. Administer analgesics based on type and severity of pain and evaluate response within appropriate time frame 4. Implement non-pharmacological measures as appropriate and evaluate response 5. Consider cultural and social influences on pain and pain management 6. Notify LIP if interventions ineffective or patient reports new pain 7. Monitor vital signs including pulse ox, end-tidal CO2 based on pain intervention 8. Reassess pain per policy 9. Teach patient or legal route sales representative interventions for comforting Outcome: Progressing Note: Evaluation of progress towards goal: Patient reports manageable 4/10 pain in abdomen while coughing. No interventions at this time Problem: Infection Goal: Absence of infection during hospitalization Description: INTERVENTIONS 1. Assess and monitor for signs and symptoms of infection. 2. Monitor lab/diagnostic results. 3. Monitor all insertion sites i.e., indwelling lines, tubes and drains. 4. Monitor endotracheal (as able) and nasal secretions for changes in amount and color. 5. Administer medications as ordered. 6. Instruct and encourage patient and family to use good hand hygiene technique. 7. Identify and instruct patient/patient route sales representative in use of appropriate isolation precautionsfor identified infection/symptoms. 8. Provide and discuss with patient/patient route sales representative on educational MDRO sheet. 9. Encourage and monitor nutritional status daily and consult manuscript editor if indicated. 10. Implement neutropenic guidelines as needed. Outcome: Progressing Note: Evaluation of progress towards goal: Monitoring signs and symptoms of infection. Standard precautions maintained. Administering medications per orders. Encouraging proper hygiene. Problem: Knowledge Deficit Goal: Patient/patient route sales representative demonstrates understanding of disease process, treatment plan,medications, and discharge instructions Description: INTERVENTIONS 1. Complete learning assessment and assess knowledge base 2. Provide teaching at level of understanding 3. Provide teaching via preferred learning method(s) Outcome: Progressing Note: Evaluation of progress towards goal: Patient is alert and oriented x4. Patient is calm, cooperative, and accepting of education and treatment plan. Problem: Moderate - High Risk Fall Score Description: Umaña Fall Score of =/> 25 or indicated by [facility] Assessment Goal: Patient should be free from fall Description: Interventions: 1. [place] to environment 2. Hourly rounds addressing the 4 P's (Pain, Positioning, Possessions, Potty) 3. Clear area of hazards (spills, clutter, electrical cords, unnecessary equipment) 4. Place equipment (bed & TV controls, call light, phone, urinal) within reach 5. Encourage patient to wear glasses and hearing aides as appropriate 6. Maintain bed in lowest position 7. Lock wheels on bed/wheelchair 8. Provide adequate lighting, including night light 9. Assess need for additional bedding, food/fluids, pain med's prior to sleep/routinely 10. Provide gripper slippers or personal non-skid footwear 11. Teach patient and patient route sales representative to maintain environment for safety and engage in all aspects of fall prevention program 12. Remind patient to call for help before getting out of bed 13. Initiate bed/chair/exit alarms supportive devices as appropriate, (chair wedge, no-skid floor mat, raised edge mattress, hip protectors) 14. Locate patient bed assignment for optimal visualization 15. Evaluate and identify Safe Patient Handling Equipment needs 16. Provide supervision when out of bed or chair 17. Utilize gait belt as needed to assist with ambulation 18. Place adaptive equipment (cane, walker) within reach 19. Request patient route sales representative bring adaptive equipment/mobility aids from home or obtain and provide as needed 20. Consult pharmacy regarding effects of med's affecting mobility, cognition, and alternatives 21. Obtain physician order for PT if risk factors associated with mobility are present 22. Obtain physician order for OT as appropriate 23. Utilize diversional activities 24. Educate patient and patient route sales representative how to maintain a safe environment during visitationtimes (notify nurse prior to leaving bedside) 25. Consider appropriateness of medical or non-medical affairs leader 26. Set up voiding schedule as appropriate (every 2 hours) Outcome: Progressing Note: Evaluation of progress towards goal: Patient ambulates independently. Patient remains free from falls at this time. Fall precautions in place. Hourly rounding maintained * Plan of Care - Thomas Barraza RN - 03/01/2025 11:40 AM EDT Problem: Pain Goal: Patient goal is pain score less than 4, able to rest, and participant in treatment plan as appropriate Description: INTERVENTIONS: 1. Encourage patient or legal route sales representative to report early pain and ask for pain medicine when needed 2. Assess pain using appropriate pain scale and include the scale used when documenting 3. Administer analgesics based on type and severity of pain and evaluate response within appropriate time frame 4. Implement non-pharmacological measures as appropriate and evaluate response 5. Consider cultural and social influences on pain and pain management 6. Notify LIP if interventions ineffective or patient reports new pain 7. Monitor vital signs including pulse ox, end-tidal CO2 based on pain intervention 8. Reassess pain per policy 9. Teach patient or legal route sales representative interventions for comforting Outcome: Progressing Note: Evaluation of progress towards goal: Problem: Safety Goal: Patient will be injury free during hospitalization Description: INTERVENTIONS: 1. Assess patient's risk for falls and implement fall prevention plan of care per policy 2. Provide and maintain a safe environment 3. Proper use of double Identifiers 4. Medication administration using the 5 rights 5. Hand hygiene 6. Specimens are labeled at the bedside 7. Instruct patient/ patient route sales representative about use of safety devices 8. Include patient/ patient route sales representative in decisions related to safety Outcome: Progressing Note: Evaluation of progress towards goal: Problem: Infection Goal: Absence of infection during hospitalization Description: INTERVENTIONS 1. Assess and monitor for signs and symptoms of infection. 2. Monitor lab/diagnostic results. 3. Monitor all insertion sites i.e., indwelling lines, tubes and drains. 4. Monitor endotracheal (as able) and nasal secretions for changes in amount and color. 5. Administer medications as ordered. 6. Instruct and encourage patient and family to use good hand hygiene technique. 7. Identify and instruct patient/patient route sales representative in use of appropriate isolation precautionsfor identified infection/symptoms. 8. Provide and discuss with patient/patient route sales representative on educational MDRO sheet. 9. Encourage and monitor nutritional status daily and consult manuscript editor if indicated. 10. Implement neutropenic guidelines as needed. Outcome: Progressing Note: Evaluation of progress towards goal: Problem: Knowledge Deficit Goal: Patient/patient route sales representative demonstrates understanding of disease process, treatment plan,medications, and discharge instructions Description: INTERVENTIONS 1. Complete learning assessment and assess knowledge base 2. Provide teaching at level of understanding 3. Provide teaching via preferred learning method(s) Outcome: Progressing Note: Evaluation of progress towards goal: Problem: Discharge Planning Goal: Discharge to post-acute care, other facility, or home with appropriate resources Description: Patient's goal is: INTERVENTIONS 1. Conduct assessment to determine patient/family and health care team treatment goals, and need for post-acute services based on payer coverage, community resources, and patient preferences, and barriers to discharge 2. Coordinate with Social work, Care Navigation, and Utilization Review to arrange appropriate level of services according to patient's needs based on patient preference and payer coverage in collaboration with the physician and health care team 3. Address psychosocial, clinical, and financial barriers to discharge as identified in assessment in conjunction with the patient/family and health care team 4. Consult appropriate ancillary services (i.e.. PT/OT/ST, etc) as needed 5. Communicate with and update the patient/family, physician, and health care team regarding progress on the discharge plan 6. Identify discharge learning needs (meds, wound care, etc). 7. Arrange for needed discharge transportation as appropriate Outcome: Progressing Note: Evaluation of progress towards goal: Problem: Moderate - High Risk Fall Score Description: Umaña Fall Score of =/> 25 or indicated by [facility] Assessment Goal: Patient should be free from fall Description: Interventions: 1. [place] to environment 2. Hourly rounds addressing the 4 P's (Pain, Positioning, Possessions, Potty) 3. Clear area of hazards (spills, clutter, electrical cords, unnecessary equipment) 4. Place equipment (bed & TV controls, call light, phone, urinal) within reach 5. Encourage patient to wear glasses and hearing aides as appropriate 6. Maintain bed in lowest position 7. Lock wheels on bed/wheelchair 8. Provide adequate lighting, including night light 9. Assess need for additional bedding, food/fluids, pain med's prior to sleep/routinely 10. Provide gripper slippers or personal non-skid footwear 11. Teach patient and patient route sales representative to maintain environment for safety and engage in all aspects of fall prevention program 12. Remind patient to call for help before getting out of bed 13. Initiate bed/chair/exit alarms supportive devices as appropriate, (chair wedge, no-skid floor mat, raised edge mattress, hip protectors) 14. Locate patient bed assignment for optimal visualization 15. Evaluate and identify Safe Patient Handling Equipment needs 16. Provide supervision when out of bed or chair 17. Utilize gait belt as needed to assist with ambulation 18. Place adaptive equipment (cane, walker) within reach 19. Request patient route sales representative bring adaptive equipment/mobility aids from home or obtain and provide as needed 20. Consult pharmacy regarding effects of med's affecting mobility, cognition, and alternatives 21. Obtain physician order for PT if risk factors associated with mobility are present 22. Obtain physician order for OT as appropriate 23. Utilize diversional activities 24. Educate patient and patient route sales representative how to maintain a safe environment during visitationtimes (notify nurse prior to leaving bedside) 25. Consider appropriateness of medical or non-medical affairs leader 26. Set up voiding schedule as appropriate (every 2 hours) Outcome: Progressing Note: Evaluation of progress towards goal: * Plan of Care - Dylan Melissa RN - 02/28/2025 11:09 PM EDT Problem: Pain Goal: Patient goal is pain score less than 4, able to rest, and participant in treatment plan as appropriate Description: INTERVENTIONS: 1. Encourage patient or legal route sales representative to report early pain and ask for pain medicine when needed 2. Assess pain using appropriate pain scale and include the scale used when documenting 3. Administer analgesics based on type and severity of pain and evaluate response within appropriate time frame 4. Implement non-pharmacological measures as appropriate and evaluate response 5. Consider cultural and social influences on pain and pain management 6. Notify LIP if interventions ineffective or patient reports new pain 7. Monitor vital signs including pulse ox, end-tidal CO2 based on pain intervention 8. Reassess pain per policy 9. Teach patient or legal route sales representative interventions for comforting Outcome: Progressing Note: Evaluation of progress towards goal: Patient reports 3/10 pain with coughing in abdomen. Declines interventions at this time Problem: Safety Goal: Patient will be injury free during hospitalization Description: INTERVENTIONS: 1. Assess patient's risk for falls and implement fall prevention plan of care per policy 2. Provide and maintain a safe environment 3. Proper use of double Identifiers 4. Medication administration using the 5 rights 5. Hand hygiene 6. Specimens are labeled at the bedside 7. Instruct patient/ patient route sales representative about use of safety devices 8. Include patient/ patient route sales representative in decisions related to safety Outcome: Progressing Note: Evaluation of progress towards goal: Patient remains injury free at this time. Safe environment maintained. Continuing to hourly round. Standard precautions in place. Proper hand hygiene performed. Administering medications per orders and hospital policy Problem: Infection Goal: Absence of infection during hospitalization Description: INTERVENTIONS 1. Assess and monitor for signs and symptoms of infection. 2. Monitor lab/diagnostic results. 3. Monitor all insertion sites i.e., indwelling lines, tubes and drains. 4. Monitor endotracheal (as able) and nasal secretions for changes in amount and color. 5. Administer medications as ordered. 6. Instruct and encourage patient and family to use good hand hygiene technique. 7. Identify and instruct patient/patient route sales representative in use of appropriate isolation precautionsfor identified infection/symptoms. 8. Provide and discuss with patient/patient route sales representative on educational MDRO sheet. 9. Encourage and monitor nutritional status daily and consult manuscript editor if indicated. 10. Implement neutropenic guidelines as needed. Outcome: Progressing Note: Evaluation of progress towards goal: Monitoring signs and symptoms of infection. Standard precautions maintained. Administering medications per orders. Encouraging proper hygiene. Problem: Knowledge Deficit Goal: Patient/patient route sales representative demonstrates understanding of disease process, treatment plan,medications, and discharge instructions Description: INTERVENTIONS 1. Complete learning assessment and assess knowledge base 2. Provide teaching at level of understanding 3. Provide teaching via preferred learning method(s) Outcome: Progressing Note: Evaluation of progress towards goal: Patient is alert and oriented x4. Patient is calm, cooperative, and accepting of education and treatment plan. Problem: Moderate - High Risk Fall Score Description: Umaña Fall Score of =/> 25 or indicated by [facility] Assessment Goal: Patient should be free from fall Description: Interventions: 1. Meridian to environment 2. Hourly rounds addressing the 4 P's (Pain, Positioning, Possessions, Potty) 3. Clear area of hazards (spills, clutter, electrical cords, unnecessary equipment) 4. Place equipment (bed & TV controls, call light, phone, urinal) within reach 5. Encourage patient to wear glasses and hearing aides as appropriate 6. Maintain bed in lowest position 7. Lock wheels on bed/wheelchair 8. Provide adequate lighting, including night light 9. Assess need for additional bedding, food/fluids, pain med's prior to sleep/routinely 10. Provide gripper slippers or personal non-skid footwear 11. Teach patient and patient route sales representative to maintain environment for safety and engage in all aspects of fall prevention program 12. Remind patient to call for help before getting out of bed 13. Initiate bed/chair/exit alarms supportive devices as appropriate, (chair wedge, no-skid floor mat, raised edge mattress, hip protectors) 14. Locate patient bed assignment for optimal visualization 15. Evaluate and identify Safe Patient Handling Equipment needs 16. Provide supervision when out of bed or chair 17. Utilize gait belt as needed to assist with ambulation 18. Place adaptive equipment (cane, walker) within reach 19. Request patient route sales representative bring adaptive equipment/mobility aids from home or obtain and provide as needed 20. Consult pharmacy regarding effects of med's affecting mobility, cognition, and alternatives 21. Obtain physician order for PT if risk factors associated with mobility are present 22. Obtain physician order for OT as appropriate 23. Utilize diversional activities 24. Educate patient and patient route sales representative how to maintain a safe environment during visitationtimes (notify nurse prior to leaving bedside) 25. Consider appropriateness of medical or non-medical affairs leader 26. Set up voiding schedule as appropriate (every 2 hours) Outcome: Progressing Note: Evaluation of progress towards goal: Patient ambulates independently. Patient remains free from falls during hospitalization. Fall precautions in place. Hourly rounding maintained * Plan of Care - Tobin Lee MD - 02/28/2025 3:14 PM EDT Electronic Publishing Specialist Onc team will sign off. Plan to have patient follow up outpatient. Office messaged. Tobin Lee PGY2, Obstetric & Gynecology 3:15 PM * Perioperative Nursing Note - Nba Avitia RN - 02/28/2025 2:54 PM EDT Pt in IRR post * Perioperative Nursing Note - Steph Calderon RN - 02/28/2025 11:13 AM EDT Pt to IR pre-procedure. * Plan of Care - Jina Miller MD - 02/28/2025 10:10 AM EDT Images from the original note were not included. Patient was scheduled to get EGD/colonoscopy today however she did not comply with the prep. We will plan for EGD/colonoscopy Tuesday March 04, 2025. Jina Miller MD Gastroenterology and hepatology fellow [facility] * Plan of Care - Jose Francisco Marin RN - 02/28/2025 8:21 AM EDT Problem: Pain Goal: Patient goal is pain score less than 4, able to rest, and participant in treatment plan as appropriate Description: INTERVENTIONS: 1. Encourage patient or legal route sales representative to report early pain and ask for pain medicine when needed 2. Assess pain using appropriate pain scale and include the scale used when documenting 3. Administer analgesics based on type and severity of pain and evaluate response within appropriate time frame 4. Implement non-pharmacological measures as appropriate and evaluate response 5. Consider cultural and social influences on pain and pain management 6. Notify LIP if interventions ineffective or patient reports new pain 7. Monitor vital signs including pulse ox, end-tidal CO2 based on pain intervention 8. Reassess pain per policy 9. Teach patient or legal route sales representative interventions for comforting Outcome: Progressing Note: Evaluation of progress towards goal: Caren denies pain at this time. Will continue to assess patient. Problem: Safety Goal: Patient will be injury free during hospitalization Description: INTERVENTIONS: 1. Assess patient's risk for falls and implement fall prevention plan of care per policy 2. Provide and maintain a safe environment 3. Proper use of double Identifiers 4. Medication administration using the 5 rights 5. Hand hygiene 6. Specimens are labeled at the bedside 7. Instruct patient/ patient route sales representative about use of safety devices 8. Include patient/ patient route sales representative in decisions related to safety Outcome: Progressing Note: Evaluation of progress towards goal: pt remains free from injury. Education reviewed. Interventions in place Problem: Infection Goal: Absence of infection during hospitalization Description: INTERVENTIONS 1. Assess and monitor for signs and symptoms of infection. 2. Monitor lab/diagnostic results. 3. Monitor all insertion sites i.e., indwelling lines, tubes and drains. 4. Monitor endotracheal (as able) and nasal secretions for changes in amount and color. 5. Administer medications as ordered. 6. Instruct and encourage patient and family to use good hand hygiene technique. 7. Identify and instruct patient/patient route sales representative in use of appropriate isolation precautionsfor identified infection/symptoms. 8. Provide and discuss with patient/patient route sales representative on educational MDRO sheet. 9. Encourage and monitor nutritional status daily and consult manuscript editor if indicated. 10. Implement neutropenic guidelines as needed. Outcome: Progressing Note: Evaluation of progress towards goal: see labs Problem: Knowledge Deficit Goal: Patient/patient route sales representative demonstrates understanding of disease process, treatment plan,medications, and discharge instructions Description: INTERVENTIONS 1. Complete learning assessment and assess knowledge base 2. Provide teaching at level of understanding 3. Provide teaching via preferred learning method(s) Outcome: Progressing Note: Evaluation of progress towards goal: disease process, treatment plan, medications and d/c instructions explained to pt. Pt states understanding of the teaching. Will continue to assess pt Problem: Discharge Planning Goal: Discharge to post-acute care, other facility, or home with appropriate resources Description: Patient's goal is: INTERVENTIONS 1. Conduct assessment to determine patient/family and health care team treatment goals, and need for post-acute services based on payer coverage, community resources, and patient preferences, and barriers to discharge 2. Coordinate with Social work, Care Navigation, and Utilization Review to arrange appropriate level of services according to patient's needs based on patient preference and payer coverage in collaboration with the physician and health care team 3. Address psychosocial, clinical, and financial barriers to discharge as identified in assessment in conjunction with the patient/family and health care team 4. Consult appropriate ancillary services (i.e.. PT/OT/ST, etc) as needed 5. Communicate with and update the patient/family, physician, and health care team regarding progress on the discharge plan 6. Identify discharge learning needs (meds, wound care, etc). 7. Arrange for needed discharge transportation as appropriate Outcome: Progressing Note: Evaluation of progress towards goal: discharge planning per hearing healthcare practitioner Problem: Moderate - High Risk Fall Score Description: Umaña Fall Score of =/> 25 or indicated by [facility] Assessment Goal: Patient should be free from fall Description: Interventions: 1. [place] to environment 2. Hourly rounds addressing the 4 P's (Pain, Positioning, Possessions, Potty) 3. Clear area of hazards (spills, clutter, electrical cords, unnecessary equipment) 4. Place equipment (bed & TV controls, call light, phone, urinal) within reach 5. Encourage patient to wear glasses and hearing aides as appropriate 6. Maintain bed in lowest position 7. Lock wheels on bed/wheelchair 8. Provide adequate lighting, including night light 9. Assess need for additional bedding, food/fluids, pain med's prior to sleep/routinely 10. Provide gripper slippers or personal non-skid footwear 11. Teach patient and patient route sales representative to maintain environment for safety and engage in all aspects of fall prevention program 12. Remind patient to call for help before getting out of bed 13. Initiate bed/chair/exit alarms supportive devices as appropriate, (chair wedge, no-skid floor mat, raised edge mattress, hip protectors) 14. Locate patient bed assignment for optimal visualization 15. Evaluate and identify Safe Patient Handling Equipment needs 16. Provide supervision when out of bed or chair 17. Utilize gait belt as needed to assist with ambulation 18. Place adaptive equipment (cane, walker) within reach 19. Request patient route sales representative bring adaptive equipment/mobility aids from home or obtain and provide as needed 20. Consult pharmacy regarding effects of med's affecting mobility, cognition, and alternatives 21. Obtain physician order for PT if risk factors associated with mobility are present 22. Obtain physician order for OT as appropriate 23. Utilize diversional activities 24. Educate patient and patient route sales representative how to maintain a safe environment during visitationtimes (notify nurse prior to leaving bedside) 25. Consider appropriateness of medical or non-medical affairs leader 26. Set up voiding schedule as appropriate (every 2 hours) Outcome: Progressing Note: Evaluation of progress towards goal: pt remains free from falls at this time. Interventions in place. * Discharge Planning Note - Ludivina Mccray RN - 02/28/2025 7:48 AM EDT Ongoing Assessment for Discharge Needs Reviewed discharge milestones and patient needs related to discharge plan. Current estimated discharge date of Feb 28, 2025 has been reviewed by treatment team. Ongoing Assessment for Discharge Needs Flowsheet Row Most Recent Value Referral To Community Referrals / Resources Provided Denies needs Services Requested Patient expects to be discharged to: home Does the patient wish to have family/friend/caregiver involved in their discharge planning? No, thepatient does not wish to have family/friend/caregiver involved in their discharge planning Discharge Disposition Home with self care Does the patient need discharge transportation arranged? No Barriers to discharge include: EGD/Colonoscopy, Heparin drip, IR consult-drain placement CN met with patient at bedside, discharge plan remains: Home self care. CN will continue to follow and is available should any further needs arise. - Ludivina Mccray RN 02/28/25 7:48 AM * PT/OT/GALLERY MANAGER - Anne Hays, PT - 02/27/2025 10:02 AM EDT Physical Therapy Evaluation, Discharge from Therapy Discharge Recommendations for Safe Patient Transition PT Discharge Disposition Recommendation: Home PT Home Recommendations: No mobility/ADL assistance at home required PT Therapy Recommendations: None 6 Clicks: Basic Mobility Turning from your back to your side while in a flat bed without using bed rails?: None Moving from lying on your back to sitting on side of flat bed without using bed rails?: None Moving to and from bed to a chair (including w/c)?: None Standing up from a chair using your arms (e.g. w/c or bedside chair)?: None To walk in hospital room?: None Climbing 3-5 steps with a railing?: None Scoring 6 Clicks: Basic Mobility Raw Score: 24 CMS G Code Modifier: CH Therapy Plan Need for skilled Physical Therapy to address deficits in functional mobility due to a status decline resulting from debility related to DVT and abdominal lesions. Pt admitted 02/25 from [place] where she presented 02/24 due to abnormal testing CT A/P- large cystic lesion R adnexa; 2.5 cm solid R renal lesion; small B lower lobe pulmonary nodules and anterior abdominal nodules- likely mets CTA chest- moderate PE without heart strain; RLL infiltrate; numerous pulmonary nodules B LE dopplers- R DVT Pt started on heparin (+) UTI Electronic Publishing Specialist onc consult- suspect ovarian cancer- will need IR biopsy and paracentesis Past Medical History: Diagnosis Date Deep vein thrombosis (CMS-HCC) No past surgical history on file. No Current Skilled PT: No acute PT goals identified Assessment Patient Assessment Patient Response to Treatment: Tolerated evaluation without adverse reaction, Discontinue therapy Mood/Affect: Appropriate for circumstances Rehab Prognosis: Good Visit RN Communication: Yes Medical Record Reviewed: Yes PT Type of Visit: Evaluation, Discharge from Therapy Precautions Activity: early mobility pass- ok to see per RN Equipment: IV pole, gait belt Telemetry/Plumbing Engineering Draftsperson: No Oxygen Used: room air Other: low fall risk Pain Assessment Pain Assessment: 0-10 Pain Score: 4 Pain Location: Abdomen Pain Intervention(s): Repositioned Response to Interventions: Pain unchanged Home Living Type of Home: House Home Layout: One level Stairs to Enter: 3 Hand Rails: Bilateral Bathroom Shower/Tub: Tub/shower unit Bathroom Toilet: Standard (sink support nearby) Bathroom Equipment: Grab bars in shower Home Equipment: (none) Other : independent prior to admit without use of AD or DME, 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, no recent falls Prior Function Lives With: Alone Receives Help From: Family (local mother and sister) Level of Mobility: Independent with ADLs and functional transfers or gait Homemaking Assistance: Independent 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) ADL / IADL Hand Dominance: Right Hearing / Speech / Vision Hearing: Within Functional Limits Speech: Within Functional Limits Current Vision: Wears glasses all the time Cognition Overall Cognitive Status: Within Functional Limits Sensation Overall Sensation Status: Within Functional Limits Bed Mobility Supine to Sit: Independent Sit to Supine: Independent Other: in bed at end of session with call light in reach Transfers Sit to Stand: Independent Stand to Sit: Independent Toilet Transfers: Independent Other: no AD used, no LOB Gait Base of Support: Within Functional Limits Pattern: Within Functional Limits Gait Assistance: Independent Assistive Device: Other (Comment) (IV pole) Gait Distance: 400 feet Limiting Factors to Gait: Other (comment) (none) 2 Turns: Yes Other: no LOB, steady gait Balance Balance Evaluation: Within Functional Limits RLE Assessment: Within Functional Limits LLE Assessment: Within Functional Limits Activity Tolerance Endurance: No limitations to activity tolerance Other: Good tolerance Plan Physical Therapy Care Plan Physical Therapy Care Plan (Active) There are no active problems. Physical Therapy Care Plan (Resolved) There are no resolved problems. Principal Problem: DVT (deep venous thrombosis) ([facility]-HCC) * PT/OT/GALLERY MANAGER - Simba Peralta OTR/L - 02/27/2025 9:45 AM EDT Occupational Therapy Evaluation, Discharge from Therapy Discharge Recommendations for Safe Patient Transition OT Discharge Disposition Recommendation: Home 6 Clicks: Daily Activity Putting on and taking off regular lower body clothing?: None Bathing (including washing, rinsing, drying)?: None Toileting, which includes using toilet, bedpan or urinal?: None Putting on and taking off regular upper body clothing?: None Taking care of personal grooming such as brushing teeth?: None Eating meals?: None Scoring Daily Activity Raw Score: 24 [facility] G Code Modifier: CH Therapy Plan Need for skilled Occupational Therapy to address deficits in ADL independence and functional mobility due to a status decline resulting from DVT Pt admitted 02/25 from [place] where she presented 02/[address] due to abnormal testing CT A/P- large cystic lesion R adnexa; 2.5 cm solid R renal lesion; small B lower lobe pulmonary nodules and anterior abdominal nodules- likely mets CTA chest- moderate PE without heart strain; RLL infiltrate; numerous pulmonary nodules B LE dopplers- R DVT Pt started on heparin (+) UTI Electronic Publishing Specialist onc consult- suspect ovarian cancer- will need IR biopsy and paracentesis Past Medical History: Diagnosis Date Deep vein thrombosis ([facility]-HCC) No past surgical history on file. No Current Skilled OT: No acute OT goals identified Assessment Patient Assessment Patient Response to Treatment: Tolerated evaluation without adverse reaction Mood/Affect: Appropriate for circumstances Rehab Prognosis: Good Visit RN Communication: Yes Medical Record Reviewed: Yes OT Type of Visit: Evaluation, Discharge from Therapy Precautions Activity: early mobility pass- ok to see per RN Equipment: IV pole, gait belt Telemetry/Plumbing Engineering Draftsperson: No Oxygen Used: room air Other: low fall risk Pain Assessment Pain Assessment: 0-10 Pain Score: 4 Pain Location: Abdomen Pain Intervention(s): Repositioned, Ambulation/increased activity Response to Interventions: Quiet Home Living Type of Home: House Home Layout: One level Stairs to Enter: 3 Hand Rails: Bilateral Bathroom Shower/Tub: Tub/shower unit Bathroom Toilet: Standard (support nearby) Bathroom Equipment: Grab bars in shower Home Equipment: (none) Other : Pt denies use of DME seating captain Prior Function Lives With: Alone Receives Help From: Family (local mother and sister) Level of Mobility: Independent with ADLs and functional transfers or gait Homemaking Assistance: Independent Other: Pt was independent with ADL's and IADL's seating captain. pt works at a [employer] ADL / IADL Hand Dominance: Right Eating Assistance: Independent Grooming Assistance: Independent Bathing/Showering Assistance: Independent Toilet/Commode Assistance: Independent UE Dressing Assistance: Independent LE Dressing Assistance: Independent Footwear Assistance: Independent Other: Pt completed toileting in bathroom independently. Able to manage lower body clothing and pericare. Pt stood at sink to wash hands. Assist for gown change due to IV Home Management - IADL Other: Pt completed toileting in bathroom independently. Able to manage lower body clothing and pericare. Pt stood at sink to wash hands. Assist for gown change due to IV Hearing / Speech / Vision Hearing: Within Functional Limits Speech: Within Functional Limits Current Vision: Wears glasses all the time Cognition Overall Cognitive Status: Within Functional Limits Sensation Overall Sensation Status: Within Functional Limits Bed Mobility Supine to Sit: Independent Sit to Supine: Independent Other: Pt in bed at end of session with call light in reach. Declined chair at this time Transfers Sit to Stand: Independent Stand to Sit: Independent Toilet Transfers: Independent Other: No notable LOB Gait Gait Assistance: Independent Assistive Device: Other (Comment) (IV pole) Gait Distance: 400 ft Other: Pt completed functional mobility within hallway. No notable LOB Balance Balance Evaluation: Within Functional Limits RUE Assessment: Within Functional Limits LUE Assessment: Within Functional Limits Activity Tolerance Endurance: No limitations to activity tolerance Other: Good tolerance Plan Occupational Therapy Care Plan Occupational Therapy Care Plan (Active) There are no active problems. Occupational Therapy Care Plan (Resolved) There are no resolved problems. Principal Problem: DVT (deep venous thrombosis) ([facility]) * Discharge Planning Note - Ludivina Mccray RN - 02/27/2025 8:13 AM EDT Ongoing Assessment for Discharge Needs Reviewed discharge milestones and patient needs related to discharge plan. Current estimated discharge date of Feb 28, 2025 has been reviewed by treatment team. Ongoing Assessment for Discharge Needs Flowsheet Row Most Recent Value Referral To Community Referrals / Resources Provided Denies needs Services Requested Patient expects to be discharged to: home Does the patient wish to have family/friend/caregiver involved in their discharge planning? No, thepatient does not wish to have family/friend/caregiver involved in their discharge planning Discharge Disposition Home with self care Does the patient need discharge transportation arranged? No Barriers to discharge include: IR consult, Pelvic ultrasound with transvaginal, heparin drip CN met with patient at bedside, discharge plan remains: Home self care. CN will continue to follow and is available should any further needs arise. - Ludivina Mccray RN 02/27/25 8:13 AM * Plan of Care - Tashia Muhammad - 02/26/2025 9:20 PM EDT Problem: Pain Goal: Patient goal is pain score less than 4, able to rest, and participant in treatment plan as appropriate Description: INTERVENTIONS: 1. Encourage patient or legal route sales representative to report early pain and ask for pain medicine when needed 2. Assess pain using appropriate pain scale and include the scale used when documenting 3. Administer analgesics based on type and severity of pain and evaluate response within appropriate time frame 4. Implement non-pharmacological measures as appropriate and evaluate response 5. Consider cultural and social influences on pain and pain management 6. Notify LIP if interventions ineffective or patient reports new pain 7. Monitor vital signs including pulse ox, end-tidal CO2 based on pain intervention 8. Reassess pain per policy 9. Teach patient or legal route sales representative interventions for comforting Outcome: Progressing Note: Evaluation of progress towards goal: Encourage patient or legal route sales representative to report early pain and ask for pain medicine when needed. Administer analgesics based on type and severity of pain and evaluate response within appropriate time frame Problem: Safety Goal: Patient will be injury free during hospitalization Description: INTERVENTIONS: 1. Assess patient's risk for falls and implement fall prevention plan of care per policy 2. Provide and maintain a safe environment 3. Proper use of double Identifiers 4. Medication administration using the 5 rights 5. Hand hygiene 6. Specimens are labeled at the bedside 7. Instruct patient/ patient route sales representative about use of safety devices 8. Include patient/ patient route sales representative in decisions related to safety Outcome: Progressing Note: Evaluation of progress towards goal: Patient will be injury free during hospitalization. Problem: Infection Goal: Absence of infection during hospitalization Description: INTERVENTIONS 1. Assess and monitor for signs and symptoms of infection. 2. Monitor lab/diagnostic results. 3. Monitor all insertion sites i.e., indwelling lines, tubes and drains. 4. Monitor endotracheal (as able) and nasal secretions for changes in amount and color. 5. Administer medications as ordered. 6. Instruct and encourage patient and family to use good hand hygiene technique. 7. Identify and instruct patient/patient route sales representative in use of appropriate isolation precautionsfor identified infection/symptoms. 8. Provide and discuss with patient/patient route sales representative on educational MDRO sheet. 9. Encourage and monitor nutritional status daily and consult manuscript editor if indicated. 10. Implement neutropenic guidelines as needed. Outcome: Progressing Note: Evaluation of progress towards goal: Assess and monitor for signs and symptoms of infection. Monitor lab/diagnostic results. Monitor all insertion sites i.e., indwelling lines, tubes and drains. Problem: Knowledge Deficit Goal: Patient/patient route sales representative demonstrates understanding of disease process, treatment plan,medications, and discharge instructions Description: INTERVENTIONS 1. Complete learning assessment and assess knowledge base 2. Provide teaching at level of understanding 3. Provide teaching via preferred learning method(s) Outcome: Progressing Note: Evaluation of progress towards goal: Provide teaching at level of understanding. Problem: Discharge Planning Goal: Discharge to post-acute care, other facility, or home with appropriate resources Description: Patient's goal is: INTERVENTIONS 1. Conduct assessment to determine patient/family and health care team treatment goals, and need for post-acute services based on payer coverage, community resources, and patient preferences, and barriers to discharge 2. Coordinate with Social work, Care Navigation, and Utilization Review to arrange appropriate level of services according to patient's needs based on patient preference and payer coverage in collaboration with the physician and health care team 3. Address psychosocial, clinical, and financial barriers to discharge as identified in assessment in conjunction with the patient/family and health care team 4. Consult appropriate ancillary services (i.e.. PT/OT/ST, etc) as needed 5. Communicate with and update the patient/family, physician, and health care team regarding progress on the discharge plan 6. Identify discharge learning needs (meds, wound care, etc). 7. Arrange for needed discharge transportation as appropriate Outcome: Progressing Note: Evaluation of progress towards goal: Conduct assessment to determine patient/family and health care team treatment goals, and need for post-acute services based on payer coverage, community resources, and patient preferences, and barriers to discharge. * Plan of Care - John Paul Bowers RPH - 02/26/2025 2:37 PM EDT Problem: Medication Description: If medication is necessary, use low-risk medication that does not interfere with what matters to the older adult patient, mobility, or mentation across settings of care. Goal: Patient will be screened for high-risk medications once per stay Description: Interventions: 1. Pharmacist to perform medication review to screen for high-risk medications 2. Pharmacist to identify high-risk medications in the Plan of Care note 3. Pharmacist to make recommendations for follow-up in the Plan of Care note, if warranted Outcome: Completed Note: Medications individually and in combination may interfere with What Matters, Mentation, and safe Mobility because of the increased risk of confusion, delirium, unsteadiness and falls. Profile review indicates this patients has active orders for no high risk medications. Chart review also shows new medication use. * Plan of Care - Jose Francisco Burdick RN - 02/26/2025 8:34 AM EDT Pain controlled * Discharge Planning Note - Ludivina Mccray RN - 02/26/2025 8:24 AM EDT Images from the original note were not included. Initial Assessment Initial Assessment Flowsheet Row Most Recent Value Patient Information Initial Pre-Hospitalization Assessment Completed? Completed Primary Caregiver Self Support System Family Members Discharge Planning Living Arrangements Private Residence, Alone Assistance Needed none Type of Residence Private residence Private Residence 1 story Can patient reside on one level? Yes Home Care Services No Community Agencies Currently Utilized None Community Referrals / Resources Provided Denies needs Does The Patient Have Existing Home DME? 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 Never True Within the past 12 months the food we bought just didn't last and we didn't have money to get more.Never True Hunger Screening Complete? Yes Pt. Eligible for Food / Voucher No Caregiver/Family Member Caregiver/Support System Limitations Caregiver/Support Systems Limitations (Check All That Apply) No Caregiver Needed Patient/Caregiver Goals Patient/Caregiver Goals Home No Needs Home No Needs Alone Community Provider Referral Community Provider Referral None Services Requested Patient expects to be discharged to: home Does the patient wish to have family/friend/caregiver involved in their discharge planning? No, thepatient does not wish to have family/friend/caregiver involved in their discharge planning Discharge Disposition Home with self care Does the patient need discharge transportation arranged? No Patient Goals: Patient/Caregiver Goals Patient/Caregiver Goals: Home No Needs Home No Needs: Alone Goals: Goals Home (pt-stated) Evaluation of progress towards goal: Return home self care. Manager Graphic met with patient at bedside and introduced self and explained role. Patient's PCP and pharmacy was confirmed. Patient is independent with ADL's and has none for DME. Per patient report: Smoking: denies ETOH: denies Drugs: denies Patient does not endorse issue obtaining food or medications and all utilities are working. Discharge disposition: Home self care. Manager Graphic will continue to follow for ongoing discharge transition needs. - Ludivina Mccray RN 02/26/25 8:24 AM * PT/OT/GALLERY MANAGER - Ting Cardoza OTR/Joie - 02/26/2025 7:59 AM EDT Occupational Therapy OT Type of Visit: Medical deferral Reason For Medical Deferral: Lab results Lab Results: (Anti-XA not therapeutic on heparin yet in setting of acute DVT) * Plan of Care - Tashia Muhammad - 02/26/2025 5:09 AM EDT Problem: Pain Goal: Patient goal is pain score less than 4, able to rest, and participant in treatment plan as appropriate Description: INTERVENTIONS: 1. Encourage patient or legal route sales representative to report early pain and ask for pain medicine when needed 2. Assess pain using appropriate pain scale and include the scale used when documenting 3. Administer analgesics based on type and severity of pain and evaluate response within appropriate time frame 4. Implement non-pharmacological measures as appropriate and evaluate response 5. Consider cultural and social influences on pain and pain management 6. Notify LIP if interventions ineffective or patient reports new pain 7. Monitor vital signs including pulse ox, end-tidal CO2 based on pain intervention 8. Reassess pain per policy 9. Teach patient or legal route sales representative interventions for comforting Outcome: Progressing Note: Evaluation of progress towards goal: Assess pain using appropriate pain scale and include thescale used when documenting. Problem: Safety Goal: Patient will be injury free during hospitalization Description: INTERVENTIONS: 1. Assess patient's risk for falls and implement fall prevention plan of care per policy 2. Provide and maintain a safe environment 3. Proper use of double Identifiers 4. Medication administration using the 5 rights 5. Hand hygiene 6. Specimens are labeled at the bedside 7. Instruct patient/ patient route sales representative about use of safety devices 8. Include patient/ patient route sales representative in decisions related to safety Outcome: Progressing Note: Evaluation of progress towards goal: Patient will be injury free during hospitalization. Problem: Infection Goal: Absence of infection during hospitalization Description: INTERVENTIONS 1. Assess and monitor for signs and symptoms of infection. 2. Monitor lab/diagnostic results. 3. Monitor all insertion sites i.e., indwelling lines, tubes and drains. 4. Monitor endotracheal (as able) and nasal secretions for changes in amount and color. 5. Administer medications as ordered. 6. Instruct and encourage patient and family to use good hand hygiene technique. 7. Identify and instruct patient/patient route sales representative in use of appropriate isolation precautionsfor identified infection/symptoms. 8. Provide and discuss with patient/patient route sales representative on educational MDRO sheet. 9. Encourage and monitor nutritional status daily and consult manuscript editor if indicated. 10. Implement neutropenic guidelines as needed. Outcome: Progressing Note: Evaluation of progress towards goal: Assess and monitor for signs and symptoms of infection. Monitor lab/diagnostic results. Monitor all insertion sites i.e., indwelling lines, tubes and drains. Problem: Knowledge Deficit Goal: Patient/patient route sales representative demonstrates understanding of disease process, treatment plan,medications, and discharge instructions Description: INTERVENTIONS 1. Complete learning assessment and assess knowledge base 2. Provide teaching at level of understanding 3. Provide teaching via preferred learning method(s) Outcome: Progressing Note: Evaluation of progress towards goal: Provide teaching at level of understanding. Problem: Discharge Planning Goal: Discharge to post-acute care, other facility, or home with appropriate resources Description: Patient's goal is: INTERVENTIONS 1. Conduct assessment to determine patient/family and health care team treatment goals, and need for post-acute services based on payer coverage, community resources, and patient preferences, and barriers to discharge 2. Coordinate with Social work, Care Navigation, and Utilization Review to arrange appropriate level of services according to patient's needs based on patient preference and payer coverage in collaboration with the physician and health care team 3. Address psychosocial, clinical, and financial barriers to discharge as identified in assessment in conjunction with the patient/family and health care team 4. Consult appropriate ancillary services (i.e.. PT/OT/ST, etc) as needed 5. Communicate with and update the patient/family, physician, and health care team regarding progress on the discharge plan 6. Identify discharge learning needs (meds, wound care, etc). 7. Arrange for needed discharge transportation as appropriate Outcome: Progressing Note: Evaluation of progress towards goal: Conduct assessment to determine patient/family and health care team treatment goals, and need for post-acute services based on payer coverage, community resources, and patient preferences, and barriers to discharge.a documented in this encounter Plan of Treatment Upcoming Encounters Date Type Department Care Team (Late st Contact Info) Description 04/03/2025 9:00 AM EDT Office Visit [facility] [place] [address] [place] [address] Riya Howard, STUDENT TRUCK DRIVER-ASSISTANT DIRECTOR OF RESIDENCE [employer] [address] [address] Scheduled Referrals Name Type Priority Associated Diagnoses Order Schedule [facility] [place], [place] Outpatient Referral Routine Pressure injury of deep tissue of left buttock Pressure ulcer of right buttock, stage 2 (CMS-HCC) 1 Occurrences starting 03/20/2025 until 03/20/2026 Referral to Physical Therapy Outpatient Referral Routine Colon cancer screening Ordered: 03/21/2025 Referral to Occupational Therapy Outpatient Referral Routine Colon cancer screening Ordered: 03/21/2025 documented as of this encounter Goals Goal Patient Goal Type Associated Problems Recent Progress Patient-Stated? Author Home General Yes Ludivina Mccray, RN Note: Evaluation of progress towards goal: Return home self care. documented as of this encounter Procedures Procedure Name Priority Date/Time Associated Diagnosis Comments DNR PHYSICIAN ORDER REPORT (SCANNED INTO EHR) 03/26/2025 12:30 PM EDT BEDSIDE GLUCOSE Routine 03/21/2025 11:11 AM EDT CBC WITH AUTO DIFFERENTIAL Routine 03/21/2025 5:07 AM EDT PROTIME & INR Routine 03/21/2025 5:07 AM EDT PHOSPHORUS Routine 03/21/2025 5:07 AM EDT IONIZED CALCIUM Routine 03/21/2025 5:07 AM EDT BEDSIDE GLUCOSE Routine 03/21/2025 4:44 AM EDT BEDSIDE GLUCOSE Routine 03/21/2025 1:03 AM EDT BEDSIDE GLUCOSE Routine 03/20/2025 9:22 PM EDT BEDSIDE GLUCOSE Routine 03/20/2025 4:42 PM EDT BEDSIDE GLUCOSE Routine 03/20/2025 11:29 AM EDT BEDSIDE GLUCOSE Routine 03/20/2025 8:19 AM EDT EXTRA TUBES SST TOP Routine 03/20/2025 7 :05 AM EDT RENAL PANEL Add-On 03/20/2025 7:05 AM EDT EXTRA TUBES Routine 03/20/2025 7:05 AM EDT PROTIME & INR Routine 03/20/2025 7:04 AM EDT HEPARIN ANTI XA, UNFRACTIONATED Routine 03/20/2025 7:04 AM EDT CBC WITH AUTO DIFFERENTIAL Routine 03/20/2025 5:34 AM EDT PHOSPHORUS Routine 03/20/2025 5:34 AM EDT IONIZED CALCIUM Routine 03/20/2025 5:34 AM EDT BEDSIDE GLUCOSE Routine 03/20/2025 4:31 AM EDT BEDSIDE GLUCOSE Routine 03/20/2025 1:13 AM EDT BEDSIDE GLUCOSE Routine 03/19/2025 8:15 PM EDT BEDSIDE GLUCOSE Routine 03/19/2025 5:55 PM EDT AMBU BRONCH STUDY Routine 03/19/2025 2:2 1 PM EDT BEDSIDE GLUCOSE Routine 03/19/2025 1:18 PM EDT BEDSIDE GLUCOSE Routine 03/19/2025 8:27 AM EDT XR CHEST 1 VW Routine 03/19/2025 6:11 AM EDT PROTIME & INR Routine 03/19/2025 4:48 AM EDT HEPARIN ANTI XA, UNFRACTIONATED Routine 03/19/2025 4:48 AM EDT PHOSPHORUS Routine 03/19/2025 4:48 AM EDT IONIZED CALCIUM Routine 03/19/2025 4:48 AM EDT BEDSIDE GLUCOSE Routine 03/18/2025 9:29 PM EDT BEDSIDE GLUCOSE Routine 03/18/2025 5:18 PM EDT IONIZED MAGNESIUM Routine 03/18/2025 3:5 9 PM EDT BEDSIDE GLUCOSE Routine 03/18/2025 10:59 AM EDT BASIC METABOLIC PANEL Routine 03/18/2025 10:13 AM EDT BEDSIDE GLUCOSE Routine 03/18/2025 6:06 AM EDT PROTIME & INR Routine 03/18/2025 4:01 AM EDT HEPARIN ANTI XA, UNFRACTIONATED Add-On 03/18/2025 4:01 AM EDT CBC (NO DIFF) Routine 03/18/2025 4:01 AM EDT PHOSPHORUS Routine 03/18/2025 4:01 AM EDT MAGNESIUM Routine 03/18/2025 4:01 AM EDT IONIZED CALCIUM Routine 03/18/2025 4:01 AM EDT BASIC METABOLIC PANEL Routine 03/18/2025 4:01 AM EDT BEDSIDE GLUCOSE Routine 03/17/2025 9:57 PM EDT BASIC METABOLIC PANEL Routine 03/17/2025 8:50 PM EDT MAGNESIUM Routine 03/17/2025 3:56 PM EDT BASIC METABOLIC PANEL Routine 03/17/2025 3:56 PM EDT BEDSIDE GLUCOSE Routine 03/17/2025 3:55 PM EDT BEDSIDE GLUCOSE Routine 03/17/2025 10:57 AM EDT BEDSIDE GLUCOSE Routine 03/17/2025 5:38 AM EDT PROTIME & INR Routine 03/17/2025 3:27 AM EDT HEPARIN ANTI XA, UNFRACTIONATED Add-On 03/17/2025 3:27 AM EDT CBC (NO DIFF) Routine 03/17/2025 3:27 AM EDT PHOSPHORUS Routine 03/17/2025 3:27 AM EDT MAGNESIUM Routine 03/17/2025 3:27 AM EDT IONIZED CALCIUM Routine 03/17/2025 3:27 AM EDT BASIC METABOLIC PANEL Routine 03/17/2025 3:27 AM EDT BEDSIDE GLUCOSE Routine 03/17/2025 3:20 AM EDT BEDSIDE GLUCOSE Routine 2025 11:28 PM EDT BEDSIDE GLUCOSE Routine 2025 9:52 PM EDT BEDSIDE GLUCOSE Routine 2025 9:07 PM EDT IONIZED CALCIUM Routine 2025 7:57 PM EDT BASIC METABOLIC PANEL Routine 2025 7:57 PM EDT BEDSIDE GLUCOSE Routine 2025 2:16 PM EDT CBC (NO DIFF) STAT 2025 9:04 AM EDT HAPTOGLOBIN Routine 2025 9:04 AM EDT IONIZED CALCIUM Routine 2025 9:04 AM EDT BASIC METABOLIC PANEL Routine 2025 9:04 AM EDT EXTRA TUBES PST TOP Routine 2025 8 :58 AM EDT EXTRA TUBES Routine 2025 8:58 AM EDT PHOSPHORUS Routine 2025 8:58 AM EDT MAGNESIUM Routine 2025 8:58 AM EDT OCCULT BLOOD X 1, STOOL Routine 03/16/20 8:54 AM EDT BEDSIDE GLUCOSE Routine 2025 8:49 AM EDT BEDSIDE GLUCOSE Routine 2025 4:10 AM EDT LDH Add-On 2025 3:04 AM EDT PROTIME & INR Routine 2025 3:04 AM EDT HEPARIN ANTI XA, UNFRACTIONATED Routine 2025 3:04 AM EDT RETICULOCYTES Add-On 2025 3:04 AM EDT CBC (NO DIFF) Routine 2025 3:04 AM EDT PHOSPHORUS Routine 2025 3:04 AM EDT MAGNESIUM Routine 2025 3:04 AM EDT IONIZED CALCIUM Routine 2025 3:04 AM EDT BASIC METABOLIC PANEL Routine 2025 3:04 AM EDT PHOSPHORUS Routine 03/15/2025 10:31 PM EDT BASIC METABOLIC PANEL Routine 03/15/2025 10:31 PM EDT BEDSIDE GLUCOSE Routine 03/15/2025 8:40 PM EDT PHOSPHORUS Routine 03/15/2025 1:56 PM EDT BASIC METABOLIC PANEL Routine 03/15/2025 1:56 PM EDT GREEN LIHP ICE TOP Routine 03/15/2025 1: 55 PM EDT RAINBOW DRAW Routine 03/15/2025 1:55 PM EDT IONIZED CALCIUM Routine 03/15/2025 1:55 PM EDT LIVER PANEL Add-On 03/15/2025 9:10 AM EDT BASIC METABOLIC PANEL Routine 03/15/2025 9:10 AM EDT BEDSIDE GLUCOSE Routine 03/15/2025 9:09 AM EDT IONIZED CALCIUM Routine 03/15/2025 2:49 AM EDT VITAMIN D 25 HYDROXY Routine 03/15/2025 2:46 AM EDT PROTIME & INR Routine 03/15/2025 2:46 AM EDT HEPARIN ANTI XA, UNFRACTIONATED Routine 03/15/2025 2:46 AM EDT CBC (NO DIFF) Routine 03/15/2025 2:46 AM EDT PHOSPHORUS Routine 03/15/2025 2:46 AM EDT MAGNESIUM Routine 03/15/2025 2:46 AM EDT BASIC METABOLIC PANEL Routine 03/15/2025 2:46 AM EDT BEDSIDE GLUCOSE Routine 03/14/2025 8:32 PM EDT BASIC METABOLIC PANEL Routine 03/14/2025 8:32 PM EDT POTASSIUM Routine 03/14/2025 2:30 PM EDT PHOSPHORUS Routine 03/14/2025 2:30 PM EDT BASIC METABOLIC PANEL Add-On 03/14/2025 2:30 PM EDT BEDSIDE GLUCOSE Routine 03/14/2025 2:15 PM EDT BRONCHOPULMONARY HYGIENE Routine 03/14/2025 11:51 AM EDT BRONCHOPULMONARY HYGIENE Routine 03/14/2025 11:51 AM EDT BRONCHOPULMONARY HYGIENE Routine 03/14/2025 11:51 AM EDT BEDSIDE GLUCOSE Routine 03/14/2025 8:20 AM EDT IONIZED CALCIUM Routine 03/14/2025 3:39 AM EDT TYPE AND SCREEN Routine 03/14/2025 3:33 AM EDT PROTIME & INR Routine 03/14/2025 2:34 AM EDT HEPARIN ANTI XA, UNFRACTIONATED Routine 03/14/2025 2:34 AM EDT CBC (NO DIFF) Routine 03/14/2025 2:34 AM EDT PHOSPHORUS Routine 03/14/2025 2:34 AM EDT MAGNESIUM Routine 03/14/2025 2:34 AM EDT BASIC METABOLIC PANEL Routine 03/14/2025 2:34 AM EDT BEDSIDE GLUCOSE Routine 03/14/2025 2:33 AM EDT BEDSIDE GLUCOSE Routine 03/13/2025 8:05 PM EDT POTASSIUM Routine 03/13/2025 6:14 PM EDT IONIZED CALCIUM Routine 03/13/2025 6:14 PM EDT BEDSIDE GLUCOSE Routine 03/13/2025 2:55 PM EDT IONIZED MAGNESIUM Routine 03/13/2025 12: 08 PM EDT PHOSPHORUS Routine 03/13/2025 12:08 PM EDT POTASSIUM Routine 03/13/2025 9:33 AM EDT PHOSPHORUS Routine 03/13/2025 9:33 AM EDT MAGNESIUM Routine 03/13/2025 9:33 AM EDT BEDSIDE GLUCOSE Routine 03/13/2025 9:26 AM EDT XR CHEST 1 VW STAT 03/13/2025 6:57 AM EDT BEDSIDE GLUCOSE Routine 03/13/2025 4:57 AM EDT IONIZED CALCIUM Routine 03/13/2025 4:54 AM EDT PROTIME & INR Routine 03/13/2025 1:54 AM EDT CBC (NO DIFF) Routine 03/13/2025 1:54 AM EDT HEPARIN ANTI XA, UNFRACTIONATED Routine 03/13/2025 1:53 AM EDT PHOSPHORUS Add-On 03/13/2025 1:53 AM EDT MAGNESIUM Add-On 03/13/2025 1:53 AM EDT BASIC METABOLIC PANEL Routine 03/13/2025 1:53 AM EDT BEDSIDE GLUCOSE Routine 03/12/2025 9:44 PM EDT XR CHEST 1 VW Routine 03/12/2025 9:02 PM EDT BEDSIDE GLUCOSE Routine 03/12/2025 2:01 PM EDT HEPARIN ANTI XA, UNFRACTIONATED Routine 03/12/2025 1:55 PM EDT POTASSIUM Routine 03/12/2025 1:55 PM EDT IONIZED CALCIUM Routine 03/12/2025 12:20 PM EDT EXTUBATION Routine 03/12/2025 10:00 AM EDT BEDSIDE GLUCOSE Routine 03/12/2025 9:29 AM EDT BEDSIDE GLUCOSE Routine 03/12/2025 9:24 AM EDT HEPARIN ANTI XA, UNFRACTIONATED Routine 03/12/2025 8:04 AM EDT POTASSIUM Routine 03/12/2025 8:04 AM EDT XR CHEST 1 VW Routine 03/12/2025 4:36 AM EDT IONIZED CALCIUM Routine 03/12/2025 3:12 AM EDT BEDSIDE GLUCOSE Routine 03/12/2025 3:11 AM EDT APTT Routine 03/12/2025 2:05 AM EDT PROTIME & INR Routine 03/12/2025 2:05 AM EDT HEPARIN ANTI XA, UNFRACTIONATED Routine 03/12/2025 2:05 AM EDT CBC (NO DIFF) Routine 03/12/2025 2:05 AM EDT PHOSPHORUS Routine 03/12/2025 2:05 AM EDT MAGNESIUM Routine 03/12/2025 2:05 AM EDT BASIC METABOLIC PANEL Routine 03/12/2025 2:05 AM EDT BEDSIDE GLUCOSE Routine 03/11/2025 8:52 PM EDT BEDSIDE GLUCOSE Routine 03/11/2025 4:45 PM EDT IONIZED MAGNESIUM Routine 03/11/2025 4:4 0 PM EDT HEMOGLOBIN AND HEMATOCRIT, BLOOD Routine 03/11/2025 4:40 PM EDT HEPARIN ANTI XA, UNFRACTIONATED Routine 03/11/2025 4:40 PM EDT IONIZED CALCIUM Routine 03/11/2025 4:40 PM EDT ENTEROSTOMAL THERAPY EVAL AND TREAT Routine 03/11/2025 1:08 PM EDT HEPARIN PF4 ANTIBODY Routine 03/11/2025 12:53 PM EDT VENTILATION Routine 03/11/2025 12:28 PM EDT VENTILATION Routine 03/11/2025 12:28 PM EDT VENTILATION Routine 03/11/2025 12:28 PM EDT VENTILATION Routine 03/11/2025 12:28 PM EDT VENTILATION Routine 03/11/2025 12:28 PM EDT BLOOD GAS, ARTERIAL Routine 03/11/2025 1 1:47 AM EDT BEDSIDE GLUCOSE Routine 03/11/2025 10:59 AM EDT ENTEROSTOMAL THERAPY EVAL AND TREAT Routine 03/11/2025 9:50 AM EDT RESP ARTERIAL LINE SETUP Routine 03/11/2025 8:00 AM EDT XR CHEST 1 VW Routine 03/11/2025 4:28 AM EDT VENTILATION Routine 03/11/2025 4:13 AM EDT VENTILATION Routine 03/11/2025 4:13 AM EDT BLOOD GAS, ARTERIAL Routine 03/11/2025 4 :12 AM EDT RESP ARTERIAL LINE SETUP Routine 03/11/2025 4:00 AM EDT IONIZED CALCIUM Routine 03/11/2025 3:51 AM EDT BEDSIDE GLUCOSE Routine 03/11/2025 3:20 AM EDT APTT Routine 03/11/2025 2:10 AM EDT PROTIME & INR Routine 03/11/2025 2:10 AM EDT CBC (NO DIFF) Routine 03/11/2025 2:10 AM EDT PHOSPHORUS Routine 03/11/2025 2:10 AM EDT MAGNESIUM Routine 03/11/2025 2:10 AM EDT BASIC METABOLIC PANEL Routine 03/11/2025 2:10 AM EDT POTASSIUM Routine 03/11/2025 12:37 AM EDT RESP ARTERIAL LINE SETUP Routine 03/11/2025 12:00 AM EDT BEDSIDE GLUCOSE Routine 03/10/2025 8:32 PM EDT HEMOGLOBIN AND HEMATOCRIT, BLOOD Routine 03/10/2025 8:30 PM EDT APTT Add-On 03/10/2025 8:30 PM EDT HEPARIN ANTI XA, UNFRACTIONATED Routine 03/10/2025 8:30 PM EDT RESP ARTERIAL LINE SETUP Routine 03/10/2025 8:00 PM EDT POTASSIUM Routine 03/10/2025 5:47 PM EDT RESP ARTERIAL LINE SETUP Routine 03/10/2025 4:00 PM EDT BEDSIDE GLUCOSE Routine 03/10/2025 3:59 PM EDT HEMOGLOBIN AND HEMATOCRIT, BLOOD Routine 03/10/2025 1:16 PM EDT POTASSIUM Routine 03/10/2025 1:16 PM EDT RESP ARTERIAL LINE SETUP Routine 03/10/2025 12:00 PM EDT BEDSIDE GLUCOSE Routine 03/10/2025 10:00 AM EDT BEDSIDE GLUCOSE Routine 03/10/2025 8:30 AM EDT RESP ARTERIAL LINE SETUP Routine 03/10/2025 8:00 AM EDT IONIZED CALCIUM Routine 03/10/2025 5:35 AM EDT XR CHEST 1 VW Routine 03/10/2025 4:54 AM EDT VENTILATION Routine 03/10/2025 4:50 AM EDT VENTILATION Routine 03/10/2025 4:50 AM EDT VENTILATION Routine 03/10/2025 4:50 AM EDT VENTILATION Routine 03/10/2025 4:50 AM EDT VENTILATION Routine 03/10/2025 4:50 AM EDT VENTILATION Routine 03/10/2025 4:50 AM EDT BLOOD GAS, ARTERIAL Routine 03/10/2025 4 :47 AM EDT BEDSIDE GLUCOSE Routine 03/10/2025 3:37 AM EDT PROTIME & INR Routine 03/10/2025 3:31 AM EDT CBC (NO DIFF) Routine 03/10/2025 3:31 AM EDT PHOSPHORUS Routine 03/10/2025 3:31 AM EDT MAGNESIUM Routine 03/10/2025 3:31 AM EDT BASIC METABOLIC PANEL Routine 03/10/2025 3:31 AM EDT POTASSIUM Routine 03/09/2025 10:55 PM EDT BEDSIDE GLUCOSE Routine 03/09/2025 10:54 PM EDT HEMOGLOBIN AND HEMATOCRIT, BLOOD Routine 03/09/2025 9:08 PM EDT BEDSIDE GLUCOSE Routine 03/09/2025 7:31 PM EDT POTASSIUM Routine 03/09/2025 6:33 PM EDT BLOOD GAS, ARTERIAL Routine 03/09/2025 4 :54 PM EDT RESP ARTERIAL LINE SETUP Routine 03/09/2025 4:00 PM EDT BEDSIDE GLUCOSE Routine 03/09/2025 3:49 PM EDT VENTILATION Routine 03/09/2025 12:17 PM EDT VENTILATION Routine 03/09/2025 12:17 PM EDT VENTILATION Routine 03/09/2025 12:17 PM EDT VENTILATION Routine 03/09/2025 12:17 PM EDT RESP ARTERIAL LINE SETUP Routine 03/09/2025 12:00 PM EDT XR CHEST 1 VW Routine 03/09/2025 11:54 AM EDT CBC WITH AUTO DIFFERENTIAL Routine 03/09/2025 10:41 AM EDT PHOSPHORUS Routine 03/09/2025 10:41 AM EDT MAGNESIUM Routine 03/09/2025 10:41 AM EDT IONIZED CALCIUM Routine 03/09/2025 10:41 AM EDT COMPREHENSIVE METABOLIC PANEL Routine 03/09/2025 10:41 AM EDT XR ABDOMEN AP 1 VW Routine 03/09/2025 9: 30 AM EDT SURGICAL PATHOLOGY Routine 03/09/2025 9: 15 AM EDT APPLICATION WOUND VAC MIDSECTION 03/09/2025 8:39 AM EDT OPEN ABDOMEN CLOSURE WOUND MIDSECTION 03/09/2025 8:39 AM EDT OPEN ABDOMEN RESECTION BOWEL SMALL 03/09/2025 8:39 AM EDT OPEN ABDOMEN ILEOSTOMY 03/09/2025 8:39 AM EDT OPEN ABDOMEN MS EXPLORATORY OF ABDOMEN 03/09/2025 8:39 AM EDT OPEN ABDOMEN RESP ARTERIAL LINE SETUP Routine 03/09/2025 8:00 AM EDT POTASSIUM Routine 03/09/2025 6:01 AM EDT BLOOD GAS, ARTERIAL Routine 03/09/2025 5 :05 AM EDT XR CHEST 1 VW STAT 03/09/2025 5:00 AM EDT RESP ARTERIAL LINE SETUP Routine 03/09/2025 4:00 AM EDT CBC WITH AUTO DIFFERENTIAL Routine 03/09/2025 3:32 AM EDT BEDSIDE GLUCOSE Routine 03/09/2025 3:31 AM EDT PROTIME & INR Routine 03/09/2025 3:25 AM EDT PHOSPHORUS Routine 03/09/2025 3:25 AM EDT MAGNESIUM Routine 03/09/2025 3:25 AM EDT BASIC METABOLIC PANEL Routine 03/09/2025 3:25 AM EDT RESP ARTERIAL LINE SETUP Routine 03/09/2025 12:00 AM EDT BEDSIDE GLUCOSE Routine 03/08/2025 11:51 PM EDT LACTATE W/ REFLEX Routine 03/08/2025 11: 48 PM EDT POTASSIUM Routine 03/08/2025 11:48 PM EDT LACTATE Routine 03/08/2025 9:51 PM EDT HEMOGLOBIN AND HEMATOCRIT, BLOOD Routine 03/08/2025 9:51 PM EDT APTT Routine 03/08/2025 9:51 PM EDT RESP ARTERIAL LINE SETUP Routine 03/08/2025 8:00 PM EDT BEDSIDE GLUCOSE Routine 03/08/2025 7:25 PM EDT VENTILATION Routine 03/08/2025 5:55 PM EDT VENTILATION Routine 03/08/2025 5:55 PM EDT VENTILATION Routine 03/08/2025 5:55 PM EDT VENTILATION Routine 03/08/2025 5:55 PM EDT VENTILATION Routine 03/08/2025 5:55 PM EDT BLOOD GAS, ARTERIAL Routine 03/08/2025 5 :43 PM EDT LACTATE W/ REFLEX Routine 03/08/2025 5:1 0 PM EDT APTT Routine 03/08/2025 5:10 PM EDT PROTIME & INR Routine 03/08/2025 5:10 PM EDT HEPARIN ANTI XA, UNFRACTIONATED Routine 03/08/2025 5:10 PM EDT POTASSIUM Routine 03/08/2025 5:10 PM EDT BEDSIDE GLUCOSE Routine 03/08/2025 5:09 PM EDT RESP ARTERIAL LINE SETUP Routine 03/08/2025 4:00 PM EDT BEDSIDE GLUCOSE Routine 03/08/2025 3:06 PM EDT BEDSIDE GLUCOSE Routine 03/08/2025 2:08 PM EDT HEMOGLOBIN AND HEMATOCRIT, BLOOD Routine 03/08/2025 1:02 PM EDT PLATELET COUNT Add-On 03/08/2025 1:02 PM EDT BEDSIDE GLUCOSE Routine 03/08/2025 12:57 PM EDT BEDSIDE GLUCOSE Routine 03/08/2025 12:08 PM EDT RESP ARTERIAL LINE SETUP Routine 03/08/2025 12:00 PM EDT LACTATE W/ REFLEX Routine 03/08/2025 11: 13 AM EDT POTASSIUM Routine 03/08/2025 11:13 AM EDT BEDSIDE GLUCOSE Routine 03/08/2025 11:09 AM EDT ECHO LIMITED WITH CONTRAST Routine 03/08/2025 11:02 AM EDT XR CHEST 1 VW STAT 03/08/2025 10:41 AM EDT BEDSIDE GLUCOSE Routine 03/08/2025 10:13 AM EDT BLOOD GAS, ARTERIAL Routine 03/08/2025 9 :29 AM EDT FRESH FROZEN PLASMA SETUP Routine 03/08/2025 9:00 AM EDT BEDSIDE GLUCOSE Routine 03/08/2025 8:[address] CTA CHEST STAT 03/08/2025 8:[address] BRAIN WO CONT STAT 03/08/2025 8:17 AM EDT RESP ARTERIAL LINE SETUP Routine 03/08/2025 8:00 AM EDT VENTILATION Routine 03/08/2025 7:36 AM EDT VENTILATION Routine 03/08/2025 7:36 AM EDT BLOOD GAS, ARTERIAL Routine 03/08/2025 6 :05 AM EDT LACTATE Routine 03/08/2025 4:55 AM EDT MAGNESIUM Routine 03/08/2025 4:55 AM EDT BASIC METABOLIC PANEL Routine 03/08/2025 4:55 AM EDT RESP ARTERIAL LINE SETUP Routine 03/08/2025 4:00 AM EDT BEDSIDE GLUCOSE Routine 03/08/2025 3:51 AM EDT TROP I, HIGH SENSITIVITY 1 HOUR STAT 03/08/2025 3:48 AM EDT PROTIME & INR Routine 03/08/2025 3:48 AM EDT CBC (NO DIFF) Routine 03/08/2025 3:48 AM EDT BLOOD GAS, ARTERIAL Routine 03/08/2025 3 :06 AM EDT TRANSFUSE FRESH FROZEN PLASMA Routine 03/08/2025 2:50 AM EDT RESP ARTERIAL LINE SETUP Routine 03/08/2025 2:14 AM EDT RESP ARTERIAL LINE SETUP Routine 03/08/2025 2:14 AM EDT RESP ARTERIAL LINE SETUP Routine 03/08/2025 2:14 AM EDT RESP ARTERIAL LINE SETUP Routine 03/08/2025 2:14 AM EDT RESP ARTERIAL LINE SETUP Routine 03/08/2025 2:14 AM EDT TRANSFUSE RED BLOOD CELLS Routine 03/08/2025 2:07 AM EDT TRANSFUSE RED BLOOD CELLS Routine 03/08/2025 1:56 AM EDT TRANSFUSE RED BLOOD CELLS Routine 03/08/2025 1:47 AM EDT XR CHEST 1 VW STAT 03/08/2025 1:46 AM EDT XR CHEST 1 VW STAT 03/08/2025 1:11 AM EDT VENTILATION Routine 03/08/2025 1:09 AM EDT VENTILATION Routine 03/08/2025 1:09 AM EDT POCT ABG WITH NA, K GLU, ICA AND HCT Routine 03/08/2025 12:43 AM EDT ECG 12-LEAD STAT 03/08/2025 12:39 AM EDT IONIZED MAGNESIUM Routine 03/08/2025 12: 35 AM EDT IONIZED CALCIUM Routine 03/08/2025 12:35 AM EDT TROPONIN I, HIGH SENSITIVITY 0 HOUR STAT 03/08/2025 12:32 AM EDT TROPONIN I, HIGH SENSITIVITY 0 HOUR STAT 03/08/2025 12:32 AM EDT LACTATE W/ REFLEX Routine 03/08/2025 12: 32 AM EDT PROTIME & INR Routine 03/08/2025 12:32 AM EDT FIBRINOGEN Routine 03/08/2025 12:32 AM EDT CBC (NO DIFF) Routine 03/08/2025 12:32 AM EDT PHOSPHORUS Routine 03/08/2025 12:32 AM EDT B-TYPE NATRIURETIC PEPTIDE Routine 03/08/2025 12:32 AM EDT MAGNESIUM Routine 03/08/2025 12:32 AM EDT COMPREHENSIVE METABOLIC PANEL Routine 03/08/2025 12:32 AM EDT SURGICAL PATHOLOGY Routine 03/07/2025 11 :28 PM EDT BLOOD GAS, ARTERIAL Routine 03/07/2025 1 1:13 PM EDT SALPINGO-OOPHORECTOMY 03/07/2025 10:26 PM EDT ADENEXAL MASS COLECTOMY 03/07/2025 10:26 PM EDT ADENEXAL MASS MS EXPLORATORY OF ABDOMEN 03/07/2025 10:26 PM EDT ADENEXAL MASS TRANSFUSE FRESH FROZEN PLASMA STAT 03/07/2025 9:55 PM EDT APTT Routine 03/07/2025 7:40 PM EDT PROTIME & INR Add-On 03/07/2025 7:40 PM EDT TRANSFUSE FRESH FROZEN PLASMA Routine 03/07/2025 6:00 PM EDT TYPE AND SCREEN Routine 03/07/2025 3:57 PM EDT CROSSMATCH RBC Routine 03/07/2025 3:30 PM EDT CROSSMATCH RBC Routine 03/07/2025 3:30 PM EDT CROSSMATCH RBC Routine 03/07/2025 3:30 PM EDT CROSSMATCH RBC Routine 03/07/2025 3:30 PM EDT CROSSMATCH RBC Routine 03/07/2025 3:30 PM EDT CROSSMATCH RBC STAT 03/07/2025 3:30 PM EDT CROSSMATCH RBC STAT 03/07/2025 3:30 PM EDT URINE CULTURE Routine 03/07/2025 11:22 AM EDT CBC (NO DIFF) Routine 03/07/2025 6:26 AM EDT MAGNESIUM Routine 03/07/2025 6:26 AM EDT BASIC METABOLIC PANEL Routine 03/07/2025 6:26 AM EDT REPEATED ABORH Routine 03/07/2025 6:00 AM EDT APTT Routine 03/06/2025 10:05 PM EDT HEPARIN ANTI XA, UNFRACTIONATED Routine 03/06/2025 8:29 PM EDT APTT Routine 03/06/2025 2:01 PM EDT PROTIME & INR Routine 03/06/2025 2:01 PM EDT PLATELET COUNT Routine 03/06/2025 2:01 PM EDT HEMOGLOBIN Routine 03/06/2025 2:01 PM EDT XR CHEST 1 VW Routine 03/06/2025 1:29 PM EDT PROTEIN CREAT RATIO Routine 03/06/2025 1 2:41 PM EDT URINE CREATININE,RANDOM Routine 03/06/20 25 12:41 PM EDT UREA RANDOM, URINE Routine 03/06/2025 12 :41 PM EDT MICROALBUMIN / CREATININE URINE RATIO Routine 03/06/2025 12:41 PM EDT SODIUM, URINE, RANDOM Routine 03/06/2025 12:41 PM EDT URINALYSIS Routine 03/06/2025 12:[address] ABDOMEN AND PELVIS WO CONT STAT 03/06/2025 11:13 AM EDT CBC (NO DIFF) Routine 03/06/2025 5:36 AM EDT URIC ACID Add-On 03/06/2025 5:36 AM EDT B-TYPE NATRIURETIC PEPTIDE Routine 03/06/2025 5:36 AM EDT MAGNESIUM Routine 03/06/2025 5:36 AM EDT CK TOTAL Routine 03/06/2025 5:36 AM EDT BASIC METABOLIC PANEL Routine 03/06/2025 5:36 AM EDT HEPARIN ANTI XA, UNFRACTIONATED Routine 03/05/2025 12:46 PM EDT HEPARIN ANTI XA, UNFRACTIONATED Routine 03/05/2025 4:03 AM EDT CBC (NO DIFF) Routine 03/05/2025 4:03 AM EDT MAGNESIUM Routine 03/05/2025 4:03 AM EDT BASIC METABOLIC PANEL Routine 03/05/2025 4:03 AM EDT HEPARIN ANTI XA, UNFRACTIONATED Routine 03/04/2025 9:12 PM EDT POTASSIUM Routine 03/04/2025 9:12 PM EDT HEPARIN ANTI XA, UNFRACTIONATED Routine 03/04/2025 1:54 PM EDT LEAD, BLOOD Routine 03/04/2025 1:54 PM EDT HEPARIN ANTI XA, UNFRACTIONATED Routine 03/04/2025 7:16 AM EDT CBC (NO DIFF) Routine 03/04/2025 7:16 AM EDT MAGNESIUM Routine 03/04/2025 7:16 AM EDT BASIC METABOLIC PANEL Routine 03/04/2025 7:16 AM EDT HEPARIN ANTI XA, UNFRACTIONATED Routine 03/03/2025 4:36 AM EDT CBC (NO DIFF) Routine 03/03/2025 4:36 AM EDT MAGNESIUM Routine 03/03/2025 4:36 AM EDT BASIC METABOLIC PANEL Routine 03/03/2025 4:36 AM EDT EXTRA TUBES PST TOP Routine 03/02/2025 8 :25 PM EDT EXTRA TUBES Routine 03/02/2025 8:25 PM EDT HEPARIN ANTI XA, UNFRACTIONATED Routine 03/02/2025 8:25 PM EDT HEPARIN ANTI XA, UNFRACTIONATED Routine 03/02/2025 1:22 PM EDT HEPARIN ANTI XA, UNFRACTIONATED Routine 03/02/2025 6:44 AM EDT CBC (NO DIFF) Routine 03/02/2025 6:44 AM EDT MAGNESIUM Routine 03/02/2025 6:44 AM EDT BASIC METABOLIC PANEL Routine 03/02/2025 6:44 AM EDT HEPARIN ANTI XA, UNFRACTIONATED Routine 03/01/2025 10:55 PM EDT HEPARIN ANTI XA, UNFRACTIONATED Routine 03/01/2025 1:53 PM EDT HEPARIN ANTI XA, UNFRACTIONATED Routine 03/01/2025 6:09 AM EDT CBC (NO DIFF) Routine 03/01/2025 6:09 AM EDT MAGNESIUM Routine 03/01/2025 6:09 AM EDT BASIC METABOLIC PANEL Routine 03/01/2025 6:09 AM EDT HEPARIN ANTI XA, UNFRACTIONATED Routine 03/01/2025 1:57 AM EDT US PELVIC WITH TRANSVAGINAL Routine 02/28/2025 5:29 PM EDT IR PARACENTESIS DX/TX W/ US GUIDE Routine 02/28/2025 3:54 PM EDT IR PERC NEEDLE BIOPSY ABD/RETRO Routine 02/28/2025 3:51 PM EDT NON-GYNECOLOGIC CYTOLOGY Routine 02/28/2025 1:25 PM EDT Colon cancer screening ALBUMIN, FLUID Routine 02/28/2025 1:25 PM EDT Colon cancer screening SURGICAL PATHOLOGY Routine 02/28/2025 1: 25 PM EDT Colon cancer screening BODY FLUID CULTURE Routine 02/28/2025 1: 25 PM EDT Colon cancer screening BODY FLUID CELL COUNT Routine 02/28/2025 1:25 PM EDT Colon cancer screening REFLEXED BODY FLUID CELL COUNT DIFFERENTIAL Routine 02/28/2025 1:25 PM EDT Colon cancer screening HEPARIN ANTI XA, UNFRACTIONATED Routine 02/28/2025 6:22 AM EDT CBC (NO DIFF) Routine 02/28/2025 6:22 AM EDT MAGNESIUM Routine 02/28/2025 6:22 AM EDT BASIC METABOLIC PANEL Routine 02/28/2025 6:22 AM EDT EXTRA TUBES LAVENDER TOP Routine 02/27/2025 6:14 PM EDT INHIBIN B, S Routine 02/27/2025 6:14 PM EDT EXTRA TUBES Routine 02/27/2025 6:14 PM EDT HEPARIN ANTI XA, UNFRACTIONATED Routine 02/27/2025 2:20 AM EDT CBC (NO DIFF) Routine 02/27/2025 2:20 AM EDT MAGNESIUM Routine 02/27/2025 2:20 AM EDT BASIC METABOLIC PANEL Routine 02/27/2025 2:20 AM EDT HEPARIN ANTI XA, UNFRACTIONATED Routine 02/26/2025 7:41 PM EDT ECHO COMPLETE WO CONTRAST Routine 02/26/2025 3:15 PM EDT THIN PREP PAP TEST Routine 02/26/2025 1: 55 PM EDT HIGH RISK HPV W/MYRIAM Routine 02/26/2025 1:55 PM EDT HEPARIN ANTI XA, UNFRACTIONATED Routine 02/26/2025 12:05 PM EDT HE4, S Routine 02/26/2025 11:14 AM EDT INHIBIN-A (DIMER) Add-On 02/26/2025 11: 14 AM EDT HAPTOGLOBIN Routine 02/26/2025 11:14 AM EDT CEA STAT 02/26/2025 11:14 AM EDT LDH Add-On 02/26/2025 2:59 AM EDT IRON AND TIBC Add-On 02/26/2025 2:59 AM EDT CANCER ANTIGEN 19-9 STAT Add-on 02/26/2025 2 :59 AM EDT HEPARIN ANTI XA, UNFRACTIONATED Routine 02/26/2025 2:59 AM EDT CBC (NO DIFF) Routine 02/26/2025 2:59 AM EDT CA 125 Add-On 02/26/2025 2:59 AM EDT MAGNESIUM Routine 02/26/2025 2:59 AM EDT FOLATE Add-On 02/26/2025 2:59 AM EDT FERRITIN Add-On 02/26/2025 2:59 AM EDT VITAMIN B12 Add-On 02/26/2025 2:59 AM EDT BASIC METABOLIC PANEL Routine 02/26/2025 2:59 AM EDT HEPARIN ANTI XA, UNFRACTIONATED Routine 02/25/2025 8:49 PM EDT URINALYSIS Routine 02/25/2025 8:26 PM EDT URINE CULTURE Routine 02/25/2025 8:[address] CTA CHEST STAT 02/25/2025 6:57 PM EDT documented in this encounter Results * DNR Physician Order Report (Scanned Into EHR) (03/26/2025 12:30 PM EDT) Narrative 03/26/2025 12:30 PM EDT Ordered by an unspecified provider. us Not In System Ref Prov OUTPATIENT REFERRAL ORDER EMILEE Final Result * Bedside Glucose *Place/Obtain serum glucose if >500 per glucometer. (03/21/2025 11:11 AM EDT) [facility] Bedside Glucose (POC) 96 65 - 99 mg/dL 03/21/2025 11:[address] [facility] arterial/capilla ry 03/21/2025 11:11 AM EDT 03/21/2025 11:13 AM EDT us Dario Burris MD POINT OF CARE TEST ORDERABLES Fi nal Result [facility] [address] [place] [address], [place] * (ABNORMAL) CBC auto differential (03/21/2025 5:07 AM EDT) [facility] WBC 7.2 4 - 11 x10E9/L 03/21/2025 6:51 AM EDT [facility] RBC Count 3.68(L) 3.8 - 5.2 X10E12/L 03/21/2025 6:51 AM EDT [facility] Hemoglobin 10.0(L) 11.7 - 15.5 g/dL 03/21/2025 6:51 AM EDT [facility] Hematocrit 31.1(L) 35 - 47 % 03/21/2025 6:51 AM EDT [facility] MCV 85 80 - 100 fL 03/21/2025 6:51 AM EDT [facility] MCH 27.3 27 - 34 pg 03/21/2025 6:51 AM EDT [facility] MCHC 32.3 32 - 36 g/dL 03/21/2025 6:51 AM EDT [facility] RDW 28.3(H) 11.5 - 15 % 03/21/2025 6:51 AM EDT [facility] Platelet Count 350 150 - 450 X10E9/L 03/21/2025 6:51 AM [facility] MPV 7.1 7 - 12 fL 03/21/2025 6:51 AM T [facility] Neutrophils % 76.6 % 03/21/2025 6:51 AM [facility] Comment:This is an appended report. These results have been appended to a previously preliminary verified report. Lymphocytes % 10.4 % 03/21/2025 6:51 AM T [facility] Comment:This is an appended report. These results have been appended to a previously preliminary verified report. Monocytes % 9.8 % 03/21/2025 6:51 AM [facility] Comment:This is an appended report. These results have been appended to a previously preliminary verified report. Eosinophils % 2.4 % 03/21/2025 6:51 AM [facility] Comment:This is an appended report. These results have been appended to a previously preliminary verified report. Basophils % 0.8 % 03/21/2025 6:51 AM [facility] Comment:This is an appended report. These results have been appended to a previously preliminary verified report. Neutrophils Absolute (A) 5.5 1.5 - 6.6 10*3/uL 03/21/2025 6:51 AM [facility] Comment:This is an appended report. These results have been appended to a previously preliminary verified report. Lymphocytes Absolute 0.8(L) 1.0 - 3.5 10*3/uL 03/21/2025 6:51 AM [facility] Comment:This is an appended report. These results have been appended to a previously preliminary verified report. Monocytes Absolute 0.7 0.0 - 0.9 10*3/uL 03/21/2025 6:51 AM [facility] Comment:This is an appended report. These results have been appended to a previously preliminary verified report. Eosinophils Absolute 0.2 0.0 - 0.4 10*3/uL 03/21/2025 6:51 AM EDT [facility] Comment:This is an appended report. These results have been appended to a previously preliminary verified report. Basophils Absolute 0.1 0.0 - 0.2 10*3/uL 03/21/2025 6:51 AM EDT [facility] Comment:This is an appended report. These results have been appended to a previously preliminary verified report. Anisocytosis 2+ 03/21/2025 6:51 AM EDT [facility] Comment:This is an appended report. These results have been appended to a previously preliminary verified report. Polychromasia 1+ 03/21/2025 6:51 AM EDT [facility] Comment:This is an appended report. These results have been appended to a previously preliminary verified report. Differential Type AUTOMATED DIFFERENTIAL 03/21/2025 6:51 AM EDT [facility] Comment:This is an appended report. These results have been appended to a previously preliminary verified report. Blood Venous blood / Unknown Venipuncture / Unknown 03/21/2025 5:07 AM EDT 03/21/2025 5:21 AM EDT Ernie Elizondo APRN-ASSISTANT DIRECTOR OF [employer] LAB BLOOD ORDERABLES Brandy l Result [facility] [address] [place] [address], [place] [phone] * Ionized calcium (03/21/2025 5:07 AM EDT) Pathologist [facility] IONIZED CALCIUM - ICAN 4.5 4.5 - 5.3 mg/dL 03/21/2025 5:42 AM EDT [facility] Blood Venous blood / Unknown Venipuncture / Unknown 03/21/2025 5:07 AM EDT 03/21/2025 5:27 AM EDT Armani Fall MD LAB BLOOD ORDERABLES Final Resul t [facility] [address] [place] [address], [place] [phone] * Phosphorus (03/21/2025 5:07 AM EDT) PHOSPHORUS 3.4 2.4 - 4.9 mg/dL 03/21/2025 5:57 AM EDT [facility] Blood Venous blood / Unknown Venipuncture / Unknown 03/21/2025 5:07 AM EDT 03/21/2025 5:21 AM EDT Дмитрий Lara MD LAB BLOOD ORDERABLES Final Resul t [facility] [address] [place] [address], * (ABNORMAL) Protime & INR (03/21/2025 5:07 AM EDT) [facility] PROTIME 14.7(H) 9.8 - 13.2 sec 03/21/2025 6:24 AM EDT [facility] INR 1.3(H) 0.9 - 1.2 03/21/2025 6:24 AM EDT [facility] Blood Venous blood / Unknown Venipuncture / Unknown 03/21/2025 5:07 AM EDT 03/21/2025 5:21 AM EDT Eleni Harding STUDENT [employer]-ASSISTANT DIRECTOR [employer] LAB BLOOD ORDERABLES Fi nal Result [facility] [address] [place] [address], [place] [phone] * Bedside Glucose *Place/Obtain serum glucose if >500 per glucometer. (03/21/2025 4:44 AM EDT) Bedside Glucose (POC) 97 65 - 99 mg/dL 03/21/2025 4:[address] [facility] arterial/capilla ry 03/21/2025 4:44 AM EDT 03/21/2025 4:45 AM EDT us Dario Burris MD POINT OF CARE TEST ORDERABLES Fi nal Result Performing Organization Address [facility] Co de Phone Number [facility] [address] [place] [address], [place] * Bedside Glucose *Place/Obtain serum glucose if >500 per glucometer. (03/21/2025 1:03 AM EDT) Bedside Glucose (POC) 90 65 - 99 mg/dL 03/21/2025 1:[address] [facility] arterial/capilla ry 03/21/2025 1:03 AM EDT 03/21/2025 1:05 AM EDT us Dario Burris MD POINT OF CARE TEST ORDERABLES Fi nal Result Performing Organization Address [facility] Co de Phone Number [facility] [address] [place] [address], [place] * Bedside Glucose *Place/Obtain serum glucose if >500 per glucometer. (03/20/2025 9:22 PM EDT) Bedside Glucose (POC) 95 65 - 99 mg/dL 03/20/2025 9:[address] [facility] arterial/capilla ry 03/20/2025 9:22 PM EDT 03/20/2025 9:24 PM EDT us Dario Burris MD POINT OF CARE TEST ORDERABLES Fi nal Result Performing Organization Address City/[facility]/ZIP Co de Phone Number [facility] [address] [place] [address], [place] * Bedside Glucose *Place/Obtain serum glucose if >500 per glucometer. (03/20/2025 4:42 PM EDT) Bedside Glucose (POC) 96 65 - 99 mg/dL 03/20/2025 4:[address] [facility] arterial/capilla ry 03/20/2025 4:42 PM EDT 03/20/2025 4:43 PM EDT us Dario Burris MD POINT OF CARE TEST ORDERABLES Fi nal Result Performing Organization Address City/[facility]/ZIP Co de Phone Number [facility] [address] [place] [address], [place] * Bedside Glucose *Place/Obtain serum glucose if >500 per glucometer. (03/20/2025 11:29 AM EDT) Bedside Glucose (POC) 75 65 - 99 mg/dL 03/20/2025 11:[address] [facility] arterial/capilla ry 03/20/2025 11:29 AM EDT 03/20/2025 11:34 AM EDT us Dario Burris MD POINT OF CARE TEST ORDERABLES Fi nal Result Performing Organization Address [facility] Co de Phone Number [facility] [address] [place] [address], [place] * Bedside Glucose *Place/Obtain serum glucose if >500 per glucometer. (03/20/2025 8:19 AM EDT) Bedside Glucose (POC) 83 65 - 99 mg/dL 03/20/2025 8:[address] [facility] arterial/capilla ry 03/20/2025 8:19 AM EDT 03/20/2025 8:25 AM EDT us Dario Burris MD POINT OF CARE TEST ORDERABLES Fi nal Result Performing Organization Address City/[facility]/ZIP Co de Phone Number [facility] [address] [place] [address], [place] * (ABNORMAL) Renal panel (03/20/2025 7:05 AM EDT) ALBUMIN 2.3(L) 3.2 - 5.3 g/dL 03/20/2025 10:25 AM EDT [facility] CALCIUM 7.8(L) 8.5 - 10.5 mg/dL 03/20/2025 10:25 AM EDT [facility] PHOSPHORUS 3.3 2.4 - 4.9 mg/dL 03/20/2025 10:25 AM EDT [facility] GLUCOSE 76 65 - 99 mg/dL 03/20/2025 10:25 AM EDT [facility] BLOOD UREA NITROGEN 6 5 - 27 mg/dL 03/20/2025 10:25 AM EDT [facility] CREATININE 0.41 0.40 - 1.00 mg/dL 03/20/2025 10:25 AM EDT [facility] Comment:METHOD TRACEABLE TO IDMS STANDARD SODIUM 139 134 - 146 mmol/L 03/20/2025 10:25 AM EDT [facility] POTASSIUM 4.1 3.5 - 5.0 mmol/L 03/20/2025 10:25 AM EDT [facility] CHLORIDE 107 98 - 109 mmol/L 03/20/2025 10:25 AM EDT [facility] CARBON DIOXIDE 24 22 - 32 mmol/L 03/20/2025 10:25 AM EDT [facility] ANION GAP 8 5 - 15 mmol/L 03/20/2025 10:25 AM EDT [facility] EGFR Non-Race Dependent >90 >=60 ml/min/1.7 3sq.m 03/20/2025 10:25 AM EDT [facility] Comment: Reported eGFR is based on the CKD-EPI 2020 equation that does not use a race coefficient. Blood Venous blood / Unknown 03/20/2025 7:05 AM EDT 03/20/2025 7:22 AM EDT us Brenda Hayes MD LAB BLOOD ORDERABLES Final Resu lt [facility] [address] [place] [address], [place] [phone] * SST TOP (03/20/2025 7:05 AM EDT) Extra Tube Auto Resulted 03/20/2025 9:01 AM EDT [facility] Blood Venous blood / Unknown 03/20/2025 7:05 AM EDT 03/20/2025 7:22 AM EDT Dario Burris MD LAB BLOOD ORDERABLES Final Resul t [facility] [address] [place] [address], * (ABNORMAL) Protime & INR (03/20/2025 7:04 AM EDT) PROTIME 16.8(H) 9.8 - 13.2 sec 03/20/2025 7:41 AM EDT [facility] INR 1.5(H) 0.9 - 1.2 03/20/2025 7:41 AM EDT [facility] Blood Venous blood / Unknown Venipuncture / Unknown 03/20/2025 7:04 AM EDT 03/20/2025 7:22 AM EDT Eleni Harding APRN-ASSISTANT [employer]OR [employer] LAB BLOOD ORDERABLES Fi nal Result [facility] [address] [place] [address], * (ABNORMAL) Anti XA unfractionated heparin (03/20/2025 7:04 AM EDT) ANTI XA UFH 1.18(HH) 0.30 - 0.70 IU/mL 03/20/2025 7:41 AM EDT [facility] Comment: Optimal time for testing is 6 hrs post dosage This test is specific for monitoring patients on UFH, and is not recommended for use with other Anti-Xa medications. Blood Venous blood / Unknown Venipuncture / Unknown 03/20/2025 7:04 AM EDT 03/20/2025 7:22 AM EDT us Dario Burris MD LAB BLOOD ORDERABLES Final Resul t [facility] [address] [place] [address], [place] [phone] * (ABNORMAL) CBC auto differential (03/20/2025 5:34 AM EDT) WBC 8.0 4 - 11 x10E9/L 03/20/2025 7:47 AM EDT [facility] RBC Count 3.64(L) 3.8 - 5.2 X10E12/L 03/20/2025 7:47 AM EDT [facility] Hemoglobin 9.8(L) 11.7 - 15.5 g/dL 03/20/2025 7:47 AM EDT [facility] Hematocrit 30.6(L) 35 - 47 % 03/20/2025 7:47 AM EDT [facility] MCV 84 80 - 100 fL 03/20/2025 7:47 AM EDT [facility] MCH 26.9(L) 27 - 34 pg 03/20/2025 7:47 AM EDT [facility] MCHC 32.0 32 - 36 g/dL 03/20/2025 7:47 AM EDT [facility] RDW 28.8(H) 11.5 - 15 % 03/20/2025 7:47 AM EDT [facility] Platelet Count 333 150 - 450 X10E9/L 03/20/2025 7:47 AM EDT [facility] MPV 7.5 7 - 12 fL 03/20/2025 7:47 AM EDT [facility] Neutrophils % 80.8 % 03/20/2025 7:47 AM EDT [facility] Comment:This is an appended report. These results have been appended to a previously preliminary verified report. Lymphocytes % 7.9 % 03/20/2025 7:47 AM [facility] Comment:This is an appended report. These results have been appended to a previously preliminary verified report. Monocytes % 7.5 % 03/20/2025 7:47 AM [facility] Comment:This is an appended report. These results have been appended to a previously preliminary verified report. Eosinophils % 2.6 % 03/20/2025 7:47 AM [facility] Comment:This is an appended report. These results have been appended to a previously preliminary verified report. Basophils % 1.2 % 03/20/2025 7:47 AM [facility] Comment:This is an appended report. These results have been appended to a previously preliminary verified report. Neutrophils Absolute (A) 6.5 1.5 - 6.6 10*3/uL 03/20/2025 7:47 AM [facility] Comment:This is an appended report. These results have been appended to a previously preliminary verified report. Lymphocytes Absolute 0.6(L) 1.0 - 3.5 10*3/uL 03/20/2025 7:47 AM [facility] Comment:This is an appended report. These results have been appended to a previously preliminary verified report. Monocytes Absolute 0.6 0.0 - 0.9 10*3/uL 03/20/2025 7:47 AM [facility] Comment:This is an appended report. These results have been appended to a previously preliminary verified report. Eosinophils Absolute 0.2 0.0 - 0.4 10*3/uL 03/20/2025 7:47 AM [facility] Comment:This is an appended report. These results have been appended to a previously preliminary verified report. Basophils Absolute 0.1 0.0 - 0.2 10*3/uL 03/20/2025 7:47 AM [facility] Comment:This is an appended report. These results have been appended to a previously preliminary verified report. Anisocytosis 2+ 03/20/2025 7:47 AM EDT [facility] Comment:This is an appended report. These results have been appended to a previously preliminary verified report. Polychromasia 1+ 03/20/2025 7:47 AM EDT [facility] Comment:This is an appended report. These results have been appended to a previously preliminary verified report. Differential Type AUTOMATED DIFFERENTIAL 03/20/2025 7:47 AM EDT [facility] Comment:This is an appended report. These results have been appended to a previously preliminary verified report. Blood Venous blood / Unknown Venipuncture / Unknown 03/20/2025 5:34 AM EDT 03/20/2025 5:50 AM EDT Ernie Elizondo STUDENT TRUCK DRIVER-ASSISTANT [employer]OR [employer] LAB BLOOD ORDERABLES Brandy l Result Performing Organization Address City/[facility]/ZIP Co de Phone Number [facility] [address] [place] [address], * (ABNORMAL) Ionized calcium (03/20/2025 5:34 AM EDT) IONIZED CALCIUM - ICAN 4.2(L) 4.5 - 5.3 mg/dL 03/20/2025 6:08 AM EDT [facility] Blood Venous blood / Unknown Venipuncture / Unknown 03/20/2025 5:34 AM EDT 03/20/2025 5:48 AM EDT Armani Fall MD LAB BLOOD ORDERABLES Final Resul t [facility] [address] [place] [address], * Phosphorus (03/20/2025 5:34 AM EDT) PHOSPHORUS 3.1 2.4 - 4.9 mg/dL 03/20/2025 6:18 AM EDT [facility] Blood Venous blood / Unknown Venipuncture / Unknown 03/20/2025 5:34 AM EDT 03/20/2025 5:50 AM EDT us Дмитрий Lara MD LAB BLOOD ORDERABLES Final Resul t Performing Organization Address City/[facility]/ZIP Co de Phone Number [facility] [address] [place] [address], [place] [phone] * Bedside Glucose *Place/Obtain serum glucose if >500 per glucometer. (03/20/2025 4:31 AM EDT) Bedside Glucose (POC) 86 65 - 99 mg/dL 03/20/2025 4:[address] [facility] arterial/capilla ry 03/20/2025 4:31 AM EDT 03/20/2025 4:36 AM EDT us Dario Burris MD POINT OF CARE TEST ORDERABLES Fi nal Result Performing Organization Address [facility] Co de Phone Number [facility] [address] [place] [address], [place] * Bedside Glucose *Place/Obtain serum glucose if >500 per glucometer. (03/20/2025 1:13 AM EDT) Bedside Glucose (POC) 78 65 - 99 mg/dL 03/20/2025 1:[address] [facility] arterial/capilla ry 03/20/2025 1:13 AM EDT 03/20/2025 1:18 AM EDT us Dario Burris MD POINT OF CARE TEST ORDERABLES Fi nal Result Performing Organization Address City/[facility]/ZIP Co de Phone Number [facility] [address] [place] [address], [place] * Bedside Glucose *Place/Obtain serum glucose if >500 per glucometer. (03/19/2025 8:15 PM EDT) Bedside Glucose (POC) 93 65 - 99 mg/dL 03/19/2025 8:[address] [facility] arterial/capilla ry 03/19/2025 8:15 PM EDT 03/19/2025 8:20 PM EDT Dario Burris MD POINT OF CARE TEST ORDERABLES Fi nal Result Performing Organization Address City/[facility]/ZIP Co de Phone Number [facility] [address] [facility] [place] [address], [place] * Bedside Glucose *Place/Obtain serum glucose if >500 per glucometer. (03/19/2025 5:55 PM EDT) Bedside Glucose (POC) 86 65 - 99 mg/dL 03/19/2025 5:[address] [facility] arterial/capilla ry 03/19/2025 5:55 PM EDT 03/19/2025 5:57 PM EDT Dario Burris MD POINT OF CARE TEST ORDERABLES Fi nal Result Performing Organization Address [facility] Co de Phone Number [facility] [address] [facility] [place] [address], [place] * AMBU Bronch Study (03/19/2025 2:21 PM EDT) Narrative SYSTEMGENERATED, DOCUMENTATION - 03/19/2025 2:21 PM EDT This order was used for bronchoscopy imaging, auto-finalized, and does not contain a result. See procedural notes. For full report details, please reach out to your physician. us Дмитрий Lara MD IMG BEDSIDE STUDIES Final Result * (ABNORMAL) Bedside Glucose *Place/Obtain serum glucose if >500 per glucometer. (03/19/2025 1:18 PM EDT) Bedside Glucose (POC) 101(H) 65 - 99 mg/dL 03/19/2025 5:[address] [facility] arterial/capilla ry 03/19/2025 1:18 PM EDT 03/19/2025 5:57 PM EDT us Dario Burris MD POINT OF CARE TEST ORDERABLES Fi nal Result Performing Organization Address [facility] Co de Phone Number [facility] [address] [facility] [place] [address], [place] * Bedside Glucose *Place/Obtain serum glucose if >500 per glucometer. (03/19/2025 8:27 AM EDT) Bedside Glucose (POC) 85 65 - 99 mg/dL 03/19/2025 12:[address] [facility] arterial/capilla ry 03/19/2025 8:27 AM EDT 03/19/2025 12:26 PM EDT us Dario Burris MD POINT OF CARE TEST ORDERABLES Fi nal Result Performing Organization Address [facility] Phone Number [facility] [address] [place] [address], [place] * X-ray chest 1 view (03/19/2025 6:11 AM EDT) Anatomical Region Laterality Modality Body, Chest N/A Computed Radiogr aphy 03/19/2025 6:35 AM EDT Narrative 03/19/2025 7:07 AM EDT XR CHEST 1 VW HISTORY: Pulmonary infiltrates, status post extubation COMPARISON: Multiple prior chest radiographs most recent 03/13/2025 FINDINGS: AP portable upright film obtained. Interval removal of enteric tube and right jugular venous catheter. Slightly increased vascular congestion. Bilateral lower lobe atelectasis and small pleural effusions not significantly changed. Improved subcutaneous emphysema in the left chest wall. No appreciable pneumothorax. The cardiomediastinal silhouette is unchanged. Known pulmonary nodules less conspicuous on chest radiograph IMPRESSION: * Slight increase in vascular congestion, otherwise not significantly changed. Approved by Cabrera Walden MD on 03/19/2025 6:35 AM Jb Campoverde MD have personally reviewed the image(s) and agree with and/or edited the report Finalized by Jb Cifuentes MD on 03/19/2025 7:07 AM Procedure Note Jb Cifuentes MD - 03/19/2025 XR CHEST 1 VW HISTORY: Pulmonary infiltrates, status post extubation COMPARISON: Multiple prior chest radiographs most recent 03/13/2025 FINDINGS: AP portable upright film obtained. Interval removal of enteric tube and right jugular venous catheter. Slightly increased vascular congestion. Bilateral lower lobe atelectasisand small pleural effusions not significantly changed. Improvedsubcutaneous emphysema in the left chest wall. No appreciablepneumothorax. The cardiomediastinal silhouette is unchanged. Knownpulmonary nodules less conspicuous on chest radiograph IMPRESSION: * Slight increase in vascular congestion, otherwise not significantlychanged. Approved by Cabrera Walden MD on 03/19/2025 6:35 AM I, Jb Cifuentes MD have personally reviewed the image(s) and agree withand/or edited the report Finalized by Jb Cifuentes MD on 03/19/2025 7:07 AM us Dominga Calderon STUDENT TRUCK DRIVER-ASSISTANT [employer]OR [employer] IMG DIAGNOSTIC IMAGING ORDERABLES Final Result * Ionized calcium (03/19/2025 4:48 AM EDT) IONIZED CALCIUM - ICAN 4.5 4.5 - 5.3 mg/dL 03/19/2025 5:36 AM EDT [facility] Blood Venous blood / Unknown Venipuncture / Unknown 03/19/2025 4:48 AM EDT 03/19/2025 5:09 AM EDT us Armani Fall MD LAB BLOOD ORDERABLES Final Resul t [facility] [address] [place] [address], [place] [phone] * Phosphorus (03/19/2025 4:48 AM EDT) PHOSPHORUS 2.9 2.4 - 4.9 mg/dL 03/19/2025 5:51 AM EDT [facility] Blood Venous blood / Unknown Venipuncture / Unknown 03/19/2025 4:48 AM EDT 03/19/2025 5:12 AM EDT Дмитрий Lara MD LAB BLOOD ORDERABLES Final Resul t Performing Organization Address City/[facility]/ZIP Co de Phone Number [facility] [address] [place] [address], [place] [phone] * (ABNORMAL) Protime & INR (03/19/2025 4:48 AM EDT) PROTIME 14.3(H) 9.8 - 13.2 sec 03/19/2025 5:37 AM EDT [facility] INR 1.3(H) 0.9 - 1.2 03/19/2025 5:37 AM EDT [facility] Blood Venous blood / Unknown Venipuncture / Unknown 03/19/2025 4:48 AM EDT 03/19/2025 5:09 AM EDT Eleni Harding APRN-DUYEN LAB BLOOD ORDERABLES Fi nal Result Performing Organization Address City/[facility]/ZIP Co de Phone Number [facility] [address] [place] [address], [place] [phone] * Anti XA unfractionated heparin (03/19/2025 4:48 AM EDT) ANTI XA UFH 0.38 0.30 - 0.70 IU/mL 03/19/2025 5:37 AM EDT [facility] Comment: Optimal time for testing is 6 hrs post dosage This test is specific for monitoring patients on UFH, and is not recommended for use with other Anti-Xa medications. Blood Venous blood / Unknown Venipuncture / Unknown 03/19/2025 4:48 AM EDT 03/19/2025 5:09 AM EDT us Dario Burris MD LAB BLOOD ORDERABLES Final Resul t Performing Organization Address City/[facility]/ZIP Co de Phone Number [facility] [address] [place] [address], [place] [phone] * (ABNORMAL) Bedside Glucose *Place/Obtain serum glucose if >500 per glucometer. (03/18/2025 9:29 PM EDT) Bedside Glucose (POC) 112(H) 65 - 99 mg/dL 03/18/2025 9:[address] [facility] arterial/capilla ry 03/18/2025 9:29 PM EDT 03/18/2025 9:47 PM EDT us Dario Burris MD POINT OF CARE TEST ORDERABLES Fi nal Result Performing Organization Address [facility] Co de Phone Number [facility] [address] [place] [address], [place] * Bedside Glucose *Place/Obtain serum glucose if >500 per glucometer. (03/18/2025 5:18 PM EDT) Bedside Glucose (POC) 96 65 - 99 mg/dL 03/18/2025 5:[address] [facility] arterial/capilla ry 03/18/2025 5:18 PM EDT 03/18/2025 5:19 PM EDT us Dario Burris MD POINT OF CARE TEST ORDERABLES Fi nal Result Performing Organization Address City/[facility]/ZIP Co de Phone Number [facility] [address] [place] [address], [place] * Ionized magnesium (03/18/2025 3:59 PM EDT) IONIZED MAGNESIUM 0.52 0.45 - 0.74 mmol/L 03/18/2025 4:15 PM EDT [facility] Blood Venous blood / Unknown Venipuncture / Unknown 03/18/2025 3:59 PM EDT 03/18/2025 4:08 PM EDT us London Merino MD LAB BLOOD ORDERABLES Final Resul t [facility] [address] [place] [address], [place] [phone] * Bedside Glucose *Place/Obtain serum glucose if >500 per glucometer. (03/18/2025 10:59 AM EDT) Pathologist [facility] Bedside Glucose (POC) 89 65 - 99 mg/dL 03/18/2025 11:[address] [facility] arterial/capilla ry 03/18/2025 10:59 AM EDT 03/18/2025 11:00 AM EDT us Dario Burris MD POINT OF CARE TEST ORDERABLES Fi nal Result [facility] [address] [place] [address], [place] * (ABNORMAL) Basic Metabolic Panel (03/18/2025 10:13 AM EDT) [facility] SODIUM 137 134 - 146 mmol/L 03/18/2025 10:58 AM EDT [facility] POTASSIUM 4.0 3.5 - 5.0 mmol/L 03/18/2025 10:58 AM EDT [facility] CHLORIDE 106 98 - 109 mmol/L 03/18/2025 10:58 AM EDT [facility] CARBON DIOXIDE 23 22 - 32 mmol/L 03/18/2025 10:58 AM EDT [facility] ANION GAP 8 5 - 15 mmol/L 03/18/2025 10:58 AM EDT [facility] BLOOD UREA NITROGEN 6 5 - 27 mg/dL 03/18/2025 10:58 AM EDT [facility] CREATININE 0.45 0.40 - 1.00 mg/dL 03/18/2025 10:58 AM EDT [facility] Comment:METHOD TRACEABLE TO IDMS STANDARD GLUCOSE 81 65 - 99 mg/dL 03/18/2025 10:58 AM EDT [facility] CALCIUM 8.0(L) 8.5 - 10.5 mg/dL 03/18/2025 10:58 AM EDT [facility] EGFR Non-Race Dependent >90 >=60 ml/min/1.7 3sq.m 03/18/2025 10:58 AM EDT [facility] Comment: Reported eGFR is based on the CKD-EPI 2020 equation that does not use a race coefficient. Blood Venous blood / Unknown Venipuncture / Unknown 03/18/2025 10:13 AM EDT 03/18/2025 10:35 AM EDT us Armani Fall MD LAB BLOOD ORDERABLES Final Resul t Performing Organization Address City/[facility]/ZIP Co de Phone Number [facility] [address] [place] [address], [place] [phone] * Bedside Glucose *Place/Obtain serum glucose if >500 per glucometer. (03/18/2025 6:06 AM EDT) Bedside Glucose (POC) 82 65 - 99 mg/dL 03/18/2025 6:[address] [facility] arterial/capilla ry 03/18/2025 6:06 AM EDT 03/18/2025 6:11 AM EDT us Dario Burris MD POINT OF CARE TEST ORDERABLES Fi nal Result [facility] [address] [facility] [place] [address], [place] * Anti XA unfractionated heparin (03/18/2025 4:01 AM EDT) ANTI XA UFH 0.38 0.30 - 0.70 IU/mL 03/18/2025 5:39 AM EDT [facility] Comment: Optimal time for testing is 6 hrs post dosage This test is specific for monitoring patients on UFH, and is not recommended for use with other Anti-Xa medications. Blood Venous blood / Unknown Venipuncture / Unknown 03/18/2025 4:01 AM EDT 03/18/2025 4:29 AM EDT us Dario Burris MD LAB BLOOD ORDERABLES Final Resul t [facility] [address] [place] [address], * Ionized calcium (03/18/2025 4:01 AM EDT) IONIZED CALCIUM - ICAN 4.5 4.5 - 5.3 mg/dL 03/18/2025 4:46 AM EDT [facility] Blood Venous blood / Unknown Venipuncture / Unknown 03/18/2025 4:01 AM EDT 03/18/2025 4:28 AM EDT us Armani Fall MD LAB BLOOD ORDERABLES Final Resul t [facility] [address] [place] [address], * Phosphorus (03/18/2025 4:01 AM EDT) PHOSPHORUS 3.0 2.4 - 4.9 mg/dL 03/18/2025 5:07 AM EDT [facility] Blood Venous blood / Unknown Venipuncture / Unknown 03/18/2025 4:01 AM EDT 03/18/2025 4:29 AM EDT us Дмитрий Lara MD LAB BLOOD ORDERABLES Final Resul t [facility] [address] [place] [address], * (ABNORMAL) Protime & INR (03/18/2025 4:01 AM EDT) PROTIME 13.7(H) 9.8 - 13.2 sec 03/18/2025 4:50 AM EDT [facility] INR 1.2 0.9 - 1.2 03/18/2025 4:50 AM EDT [facility] Blood Venous blood / Unknown Venipuncture / Unknown 03/18/2025 4:01 AM EDT 03/18/2025 4:29 AM EDT us Eleni Harding STUDENT TRUCK DRIVER-ASSISTANT [employer]OR [employer] LAB BLOOD ORDERABLES Fi nal Result [facility] [address] [place] [id number], * (ABNORMAL) Basic Metabolic Panel (03/18/2025 4:01 AM EDT) [facility] SODIUM 138 134 - 146 mmol/L 03/18/2025 5:07 AM EDT [facility] POTASSIUM 4.2 3.5 - 5.0 mmol/L 03/18/2025 5:07 AM EDT [facility] CHLORIDE 105 98 - 109 mmol/L 03/18/2025 5:07 AM EDT [facility] CARBON DIOXIDE 24 22 - 32 mmol/L 03/18/2025 5:07 AM EDT [facility] ANION GAP 9 5 - 15 mmol/L 03/18/2025 5:07 AM EDT [facility] BLOOD UREA NITROGEN 7 5 - 27 mg/dL 03/18/2025 5:07 AM EDT [facility] CREATININE 0.45 0.40 - 1.00 mg/dL 03/18/2025 5:07 AM EDT [facility] Comment:METHOD TRACEABLE TO IDMS STANDARD GLUCOSE 66 65 - 99 mg/dL 03/18/2025 5:07 AM EDT [facility] CALCIUM 7.9(L) 8.5 - 10.5 mg/dL 03/18/2025 5:07 AM EDT [facility] EGFR Non-Race Dependent >90 >=60 ml/min/1.7 3sq.m 03/18/2025 5:07 AM EDT [facility] Comment: Reported eGFR is based on the CKD-EPI 2020 equation that does not use a race coefficient. Blood Venous blood / Unknown Venipuncture / Unknown 03/18/2025 4:01 AM EDT 03/18/2025 4:29 AM EDT us Armani Fall MD LAB BLOOD ORDERABLES Final Resul t [facility] [address] [place] [address], * (ABNORMAL) CBC without diff (03/18/2025 4:01 AM EDT) WBC 8.4 4 - 11 x10E9/L 03/18/2025 4:43 AM EDT [facility] RBC Count 3.73(L) 3.8 - 5.2 X10E12/L 03/18/2025 4:43 AM EDT [facility] Hemoglobin 10.0(L) 11.7 - 15.5 g/dL 03/18/2025 4:43 AM EDT [facility] Hematocrit 30.9(L) 35 - 47 % 03/18/2025 4:43 AM EDT [facility] MCV 83 80 - 100 fL 03/18/2025 4:43 AM EDT [facility] MCH 26.8(L) 27 - 34 pg 03/18/2025 4:43 AM EDT [facility] MCHC 32.4 32 - 36 g/dL 03/18/2025 4:43 AM EDT [facility] RDW 28.7(H) 11.5 - 15 % 03/18/2025 4:43 AM EDT [facility] Platelet Count 221 150 - 450 X10E9/L 03/18/2025 4:43 AM EDT [facility] MPV 8.6 7 - 12 fL 03/18/2025 4:43 AM EDT [facility] Blood Venous blood / Unknown Venipuncture / Unknown 03/18/2025 4:01 AM EDT 03/18/2025 4:29 AM EDT 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 [place] [address], [place] [phone] * Magnesium (03/18/2025 4:01 AM EDT) MAGNESIUM 2.0 1.8 - 2.6 mg/dL 03/18/2025 5:07 AM EDT [facility] Blood Venous blood / Unknown Venipuncture / Unknown 03/18/2025 4:01 AM EDT 03/18/2025 4:29 AM EDT Neelima Ta STUDENT TRUCK DRIVER-ASSISTANT [employer] LAB BLOOD ORDERABLES Fi nal Result Performing Organization Address City/[facility]/ZIP Co de Phone Number [facility] [address] [place] [address], [place] [phone] * Bedside Glucose *Place/Obtain serum glucose if >500 per glucometer. (03/17/2025 9:57 PM EDT) Bedside Glucose (POC) 84 65 - 99 mg/dL 03/17/2025 10:[address] [facility] arterial/capilla ry 03/17/2025 9:57 PM EDT 03/17/2025 10:03 PM EDT Dario Burris MD POINT OF CARE TEST ORDERABLES Fi nal Result [facility] [address] [place] [address], [place] * (ABNORMAL) Basic Metabolic Panel (03/17/2025 8:50 PM EDT) SODIUM 136 134 - 146 mmol/L 03/17/2025 9:37 PM EDT [facility] POTASSIUM 4.0 3.5 - 5.0 mmol/L 03/17/2025 9:37 PM EDT [facility] CHLORIDE 104 98 - 109 mmol/L 03/17/2025 9:37 PM EDT [facility] CARBON DIOXIDE 24 22 - 32 mmol/L 03/17/2025 9:37 PM EDT [facility] ANION GAP 8 5 - 15 mmol/L 03/17/2025 9:37 PM EDT [facility] BLOOD UREA NITROGEN 7 5 - 27 mg/dL 03/17/2025 9:37 PM EDT [facility] CREATININE 0.48 0.40 - 1.00 mg/dL 03/17/2025 9:37 PM EDT [facility] Comment:METHOD TRACEABLE TO IDMS STANDARD GLUCOSE 76 65 - 99 mg/dL 03/17/2025 9:37 PM EDT [facility] CALCIUM 8.0(L) 8.5 - 10.5 mg/dL 03/17/2025 9:37 PM EDT [facility] EGFR Non-Race Dependent >90 >=60 ml/min/1.7 3sq.m 03/17/2025 9:37 PM EDT [facility] Comment: Reported eGFR is based on the CKD-EPI 2020 equation that does not use a race coefficient. Blood Venous blood / Unknown Venipuncture / Unknown 03/17/2025 8:50 PM EDT 03/17/2025 9:12 PM EDT us Armani Fall MD LAB BLOOD ORDERABLES Final Resul t [facility] [address] [place] [address], * Magnesium (03/17/2025 3:56 PM EDT) Pathologist [facility] MAGNESIUM 2.1 1.8 - 2.6 mg/dL 03/17/2025 4:54 PM EDT [facility] Blood Venous blood / Unknown Venipuncture / Unknown 03/17/2025 3:56 PM EDT 03/17/2025 4:14 PM EDT us Ghassan Castillo MD LAB BLOOD ORDERABLES Final Resu lt [facility] [address] [place] [address], [place] [phone] * (ABNORMAL) Basic Metabolic Panel (03/17/2025 3:56 PM EDT) [facility] SODIUM 139 134 - 146 mmol/L 03/17/2025 4:54 PM EDT [facility] POTASSIUM 4.3 3.5 - 5.0 mmol/L 03/17/2025 4:54 PM EDT [facility] CHLORIDE 106 98 - 109 mmol/L 03/17/2025 4:54 PM EDT [facility] CARBON DIOXIDE 26 22 - 32 mmol/L 03/17/2025 4:54 PM EDT [facility] ANION GAP 7 5 - 15 mmol/L 03/17/2025 4:54 PM EDT [facility] BLOOD UREA NITROGEN 7 5 - 27 mg/dL 03/17/2025 4:54 PM EDT [facility] CREATININE 0.43 0.40 - 1.00 mg/dL 03/17/2025 4:54 PM EDT [facility] Comment:METHOD TRACEABLE TO IDMS STANDARD GLUCOSE 81 65 - 99 mg/dL 03/17/2025 4:54 PM EDT [facility] CALCIUM 8.3(L) 8.5 - 10.5 mg/dL 03/17/2025 4:54 PM EDT [facility] EGFR Non-Race Dependent >90 >=60 ml/min/1.7 3sq.m 03/17/2025 4:54 PM EDT [facility] Comment: Reported eGFR is based on the CKD-EPI 2020 equation that does not use a race coefficient. Blood Venous blood / Unknown Venipuncture / Unknown 03/17/2025 3:56 PM EDT 03/17/2025 4:14 PM EDT us Armani Fall MD LAB BLOOD ORDERABLES Final Resul t Performing Organization Address City/[facility]/ZIP Co de Phone Number [facility] [address] [place] [address], [place] [phone] * Bedside Glucose *Place/Obtain serum glucose if >500 per glucometer. (03/17/2025 3:55 PM EDT) Bedside Glucose (POC) 88 65 - 99 mg/dL 03/17/2025 4:[address] [facility] arterial/capilla ry 03/17/2025 3:55 PM EDT 03/17/2025 4:01 PM EDT us Ghassan Castillo MD POINT OF CARE TEST ORDERABLES F inal Result Performing Organization Address [facility] Co de Phone Number [facility] [address] [place] [address], [place] * Bedside Glucose *Place/Obtain serum glucose if >500 per glucometer. (03/17/2025 10:57 AM EDT) Bedside Glucose (POC) 77 65 - 99 mg/dL 03/17/2025 11:[address] [facility] arterial/capilla ry 03/17/2025 10:57 AM EDT 03/17/2025 11:02 AM EDT us Ghassan Castillo MD POINT OF CARE TEST ORDERABLES F inal Result Performing Organization Address City/[facility]/ZIP Co de Phone Number [facility] [address] [place] [address], [place] * Bedside Glucose *Place/Obtain serum glucose if >500 per glucometer. (03/17/2025 5:38 AM EDT) Bedside Glucose (POC) 73 65 - 99 mg/dL 03/17/2025 8:07 AM EDT [facility] arterial/capilla ry 03/17/2025 5:38 AM EDT 03/17/2025 8:07 AM EDT Ghassan Castillo MD POINT OF CARE TEST ORDERABLES F inal Result [facility] [address] [place] [address], [place] * Anti XA unfractionated heparin (03/17/2025 3:27 AM EDT) [facility] ANTI XA UFH 0.39 0.30 - 0.70 IU/mL 03/17/2025 6:08 AM EDT [facility] Comment: Optimal time for testing is 6 hrs post dosage This test is specific for monitoring patients on UFH, and is not recommended for use with other Anti-Xa medications. Blood Venous blood / Unknown Venipuncture / Unknown 03/17/2025 3:27 AM EDT 03/17/2025 4:01 AM EDT Ghassan Castillo MD LAB BLOOD ORDERABLES Final Resu lt Performing Organization Address City/[facility]/ZIP Co de Phone Number [facility] [address] [place] [address], [place] [phone] * Ionized calcium (03/17/2025 3:27 AM EDT) [facility] IONIZED CALCIUM - ICAN 4.6 4.5 - 5.3 mg/dL 03/17/2025 4:13 AM EDT [facility] Blood Venous blood / Unknown Venipuncture / Unknown 03/17/2025 3:27 AM EDT 03/17/2025 3:51 AM EDT Armani Fall MD LAB BLOOD ORDERABLES Final Resul t [facility] [address] [place] [address], * Phosphorus (03/17/2025 3:27 AM EDT) PHOSPHORUS 2.8 2.4 - 4.9 mg/dL 03/17/2025 4:35 AM EDT [facility] Blood Venous blood / Unknown Venipuncture / Unknown 03/17/2025 3:27 AM EDT 03/17/2025 4:01 AM EDT us Дмитрий Lara MD LAB BLOOD ORDERABLES Final Resul t Performing Organization Address City/[facility]/ZIP Co de Phone Number [facility] [address] [place] [address], * Protime & INR (03/17/2025 3:27 AM EDT) PROTIME 12.8 9.8 - 13.2 sec 03/17/2025 4:31 AM EDT [facility] INR 1.1 0.9 - 1.2 03/17/2025 4:31 AM EDT [facility] Blood Venous blood / Unknown Venipuncture / Unknown 03/17/2025 3:27 AM EDT 03/17/2025 4:01 AM EDT Eleni Harding STUDENT TRUCK [employer]IVER-[employer]SISTANT [employer] LAB BLOOD ORDERABLES Fi nal Result Performing Organization Address City/[facility]/ZIP Co de Phone Number [facility] [address] [place] [address], * (ABNORMAL) Basic Metabolic Panel (03/17/2025 3:27 AM EDT) SODIUM 137 134 - 146 mmol/L 03/17/2025 4:35 AM EDT [facility] POTASSIUM 4.3 3.5 - 5.0 mmol/L 03/17/2025 4:35 AM EDT [facility] CHLORIDE 106 98 - 109 mmol/L 03/17/2025 4:35 AM EDT [facility] CARBON DIOXIDE 25 22 - 32 mmol/L 03/17/2025 4:35 AM EDT [facility] ANION GAP 6 5 - 15 mmol/L 03/17/2025 4:35 AM EDT [facility] BLOOD UREA NITROGEN 9 5 - 27 mg/dL 03/17/2025 4:35 AM EDT [facility] CREATININE 0.37(L) 0.40 - 1.00 mg/dL 03/17/2025 4:35 AM EDT [facility] Comment:METHOD TRACEABLE TO IDMS STANDARD GLUCOSE 63(L) 65 - 99 mg/dL 03/17/2025 4:35 AM EDT [facility] CALCIUM 8.3(L) 8.5 - 10.5 mg/dL 03/17/2025 4:35 AM EDT [facility] EGFR Non-Race Dependent >90 >=60 ml/min/1.7 3sq.m 03/17/2025 4:35 AM EDT [facility] Comment: Reported eGFR is based on the CKD-EPI 2020 equation that does not use a race coefficient. Blood Venous blood / Unknown Venipuncture / Unknown 03/17/2025 3:27 AM EDT 03/17/2025 4:01 AM EDT us Armani Fall MD LAB BLOOD ORDERABLES Final Resul t [facility] [address] [place] [address], [place] [phone] * (ABNORMAL) CBC without diff (03/17/2025 3:27 AM EDT) WBC 9.0 4 - 11 x10E9/L 03/17/2025 4:13 AM EDT [facility] RBC Count 3.69(L) 3.8 - 5.2 X10E12/L 03/17/2025 4:13 AM EDT [facility] Hemoglobin 9.8(L) 11.7 - 15.5 g/dL 03/17/2025 4:13 AM EDT [facility] Hematocrit 30.5(L) 35 - 47 % 03/17/2025 4:13 AM EDT [facility] MCV 83 80 - 100 fL 03/17/2025 4:13 AM EDT [facility] MCH 26.6(L) 27 - 34 pg 03/17/2025 4:13 AM EDT [facility] MCHC 32.2 32 - 36 g/dL 03/17/2025 4:13 AM EDT [facility] RDW 27.7(H) 11.5 - 15 % 03/17/2025 4:13 AM EDT [facility] Platelet Count 192 150 - 450 X10E9/L 03/17/2025 4:13 AM EDT [facility] MPV 8.4 7 - 12 fL 03/17/2025 4:13 AM EDT [facility] Blood Venous blood / Unknown Venipuncture / Unknown 03/17/2025 3:27 AM EDT 03/17/2025 4:01 AM EDT us 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 [place] [address], * Magnesium (03/17/2025 3:27 AM EDT) MAGNESIUM 1.9 1.8 - 2.6 mg/dL 03/17/2025 4:35 AM EDT [facility] Blood Venous blood / Unknown Venipuncture / Unknown 03/17/2025 3:27 AM EDT 03/17/2025 4:01 AM EDT Neelima Ta STUDENT TRUCK [employer]IVER-[employer] LAB BLOOD ORDERABLES Fi nal Result Performing Organization Address City/[facility]/ZIP Co de Phone Number [facility] [address] [place] [address], [place] [phone] * Bedside Glucose *Place/Obtain serum glucose if >500 per glucometer. (03/17/2025 3:20 AM EDT) Bedside Glucose (POC) 73 65 - 99 mg/dL 03/17/2025 3:[address] [facility] arterial/capilla ry 03/17/2025 3:20 AM EDT 03/17/2025 3:25 AM EDT Ghassan Castillo MD POINT OF CARE TEST ORDERABLES F inal Result Performing Organization Address [facility] Co de Phone Number [facility] [address] [place] [address], [place] * (ABNORMAL) Bedside Glucose *Place/Obtain serum glucose if >500 per glucometer. (2025 11:28PM EDT) Bedside Glucose (POC) 114(H) 65 - 99 mg/dL 2025 11:[address] [facility] arterial/capilla ry 2025 11:28 PM EDT 2025 11:33 PM EDT Ghassan Castillo MD POINT OF CARE TEST ORDERABLES F inal Result Performing Organization Address City/[facility]/ZIP Co de Phone Number [facility] [address] [place] [address], [place] * Bedside Glucose *Place/Obtain serum glucose if >500 per glucometer. (2025 9:52 PM EDT) Bedside Glucose (POC) 87 65 - 99 mg/dL 2025 9:[address] [facility] arterial/capilla ry 2025 9:52 PM EDT 2025 9:57 PM EDT us Ghassan Castillo MD POINT OF CARE TEST ORDERABLES F inal Result Performing Organization Address [facility] Co de Phone Number [facility] [address] [facility] [place] [address], [place] * Bedside Glucose *Place/Obtain serum glucose if >500 per glucometer. (2025 9:07 PM EDT) Bedside Glucose (POC) 69 65 - 99 mg/dL 2025 9:[address] [facility] arterial/capilla ry 2025 9:07 PM EDT 2025 9:13 PM EDT us Ghassan Castillo MD POINT OF CARE TEST ORDERABLES F inal Result Performing Organization Address [facility] Co de Phone Number [facility] [address] [place] [address], [place] * (ABNORMAL) Ionized calcium (2025 7:57 PM EDT) [facility] IONIZED CALCIUM - ICAN 4.2(L) 4.5 - 5.3 mg/dL 2025 8:26 PM EDT [facility] Blood Venous blood / Unknown Venipuncture / Unknown 2025 7:57 PM EDT 2025 8:12 PM EDT us Ghassan Castillo MD LAB BLOOD ORDERABLES Final Resu lt Performing Organization Address [facility] Co de Phone Number [facility] [address] [place] [address], [place] [phone] * (ABNORMAL) Basic Metabolic Panel (2025 7:57 PM EDT) SODIUM 137 134 - 146 mmol/L 2025 8:47 PM EDT [facility] POTASSIUM 4.3 3.5 - 5.0 mmol/L 2025 8:47 PM EDT [facility] CHLORIDE 107 98 - 109 mmol/L 2025 8:47 PM EDT [facility] CARBON DIOXIDE 23 22 - 32 mmol/L 2025 8:47 PM EDT [facility] ANION GAP 7 5 - 15 mmol/L 2025 8:47 PM EDT [facility] BLOOD UREA NITROGEN 10 5 - 27 mg/dL 2025 8:47 PM EDT [facility] CREATININE 0.45 0.40 - 1.00 mg/dL 2025 8:47 PM EDT [facility] Comment:METHOD TRACEABLE TO IDMS STANDARD GLUCOSE 70 65 - 99 mg/dL 2025 8:47 PM EDT [facility] CALCIUM 7.9(L) 8.5 - 10.5 mg/dL 2025 8:47 PM EDT [facility] EGFR Non-Race Dependent >90 >=60 ml/min/1.7 3sq.m 2025 8:47 PM EDT [facility] Comment: Reported eGFR is based on the CKD-EPI 2020 equation that does not use a race coefficient. Blood Venous blood / Unknown Venipuncture / Unknown 2025 7:57 PM EDT 2025 8:12 PM EDT us Armani Fall MD LAB BLOOD ORDERABLES Final Resul t [facility] [address] [place] [address], [place] [phone] * (ABNORMAL) Bedside Glucose *Place/Obtain serum glucose if >500 per glucometer. (2025 2:16 PM EDT) Bedside Glucose (POC) 109(H) 65 - 99 mg/dL 2025 2:[address] [facility] arterial/capilla ry 2025 2:16 PM EDT 2025 2:17 PM EDT Ghassan Castillo MD POINT OF CARE TEST ORDERABLES F inal Result [facility] [address] [place] [address], [place] * (ABNORMAL) Haptoglobin (2025 9:04 AM EDT) Pathologist [facility] HAPTOGLOBIN 328(H) 32 - 228 mg/dL 2025 10:28 AM EDT [facility] Blood Venous blood / Unknown Venipuncture / Unknown 2025 9:04 AM EDT 2025 9:22 AM EDT Geremias Romero MD LAB BLOOD ORDERABLES Final Result [facility] [address] [place] [address], [place] [phone] * (ABNORMAL) CBC without diff (2025 9:04 AM EDT) [facility] WBC 10.7 4 - 11 x10E9/L 2025 9:31 AM EDT [facility] RBC Count 4.23 3.8 - 5.2 X10E12/L 2025 9:31 AM EDT [facility] Hemoglobin 11.1(L) 11.7 - 15.5 g/dL 2025 9:31 AM EDT [facility] Hematocrit 34.7(L) 35 - 47 % 2025 9:31 AM EDT [facility] MCV 82 80 - 100 fL 2025 9:31 AM EDT [facility] MCH 26.2(L) 27 - 34 pg 2025 9:31 AM EDT [facility] MCHC 31.9(L) 32 - 36 g/dL 2025 9:31 AM EDT [facility] RDW 27.5(H) 11.5 - 15 % 2025 9:31 AM EDT [facility] Platelet Count 209 150 - 450 X10E9/L 2025 9:31 AM EDT [facility] MPV 8.1 7 - 12 fL 2025 9:31 AM EDT [facility] Blood Venous blood / Unknown Venipuncture / Unknown 2025 9:04 AM EDT 2025 9:22 AM EDT Armani Fall MD LAB BLOOD ORDERABLES Final Resul t [facility] [address] [place] [address], * (ABNORMAL) Ionized calcium (2025 9:04 AM EDT) IONIZED CALCIUM - ICAN 4.4(L) 4.5 - 5.3 mg/dL 2025 9:45 AM EDT [facility] Blood Venous blood / Unknown Venipuncture / Unknown 2025 9:04 AM EDT 2025 9:18 AM EDT Armani Fall MD LAB BLOOD ORDERABLES Final Resul t [facility] [address] [place] [address], * (ABNORMAL) Basic Metabolic Panel (2025 9:04 AM EDT) SODIUM 139 134 - 146 mmol/L 2025 10:28 AM EDT [facility] POTASSIUM 4.7 3.5 - 5.0 mmol/L 2025 10:28 AM EDT [facility] CHLORIDE 106 98 - 109 mmol/L 2025 10:28 AM EDT [facility] CARBON DIOXIDE 26 22 - 32 mmol/L 2025 10:28 AM EDT [facility] ANION GAP 7 5 - 15 mmol/L 2025 10:28 AM EDT [facility] BLOOD UREA NITROGEN 12 5 - 27 mg/dL 2025 10:28 AM EDT [facility] CREATININE 0.42 0.40 - 1.00 mg/dL 2025 10:28 AM EDT [facility] Comment:METHOD TRACEABLE TO IDMS STANDARD GLUCOSE 79 65 - 99 mg/dL 2025 10:28 AM EDT [facility] CALCIUM 7.5(L) 8.5 - 10.5 mg/dL 2025 10:28 AM EDT [facility] EGFR Non-Race Dependent >90 >=60 ml/min/1.7 3sq.m 2025 10:28 AM EDT [facility] Comment: Reported eGFR is based on the CKD-EPI 2020 equation that does not use a race coefficient. Blood Venous blood / Unknown Venipuncture / Unknown 2025 9:04 AM EDT 2025 9:22 AM EDT us Armani Fall MD LAB BLOOD ORDERABLES Final Resul t [facility] [address] [place] [address], * PST TOP (2025 8:58 AM EDT) Extra Tube Auto Resulted 2025 10:01 AM EDT [facility] Blood Venous blood / Unknown 2025 8:58 AM EDT 2025 9:23 AM EDT Ghassan Castillo MD LAB BLOOD ORDERABLES Final Resu lt [facility] [address] [place] [address], [place] [phone] * Phosphorus (2025 8:58 AM EDT) PHOSPHORUS 3.4 2.4 - 4.9 mg/dL 2025 9:54 AM EDT [facility] Blood Venous blood / Unknown 2025 8:58 AM EDT 2025 9:23 AM EDT Armani Fall MD LAB BLOOD ORDERABLES Final Resul t Performing Organization Address City/[facility]/ZIP Co de Phone Number [facility] [address] [place] [address], [place] [phone] * Magnesium (2025 8:58 AM EDT) MAGNESIUM 2.2 1.8 - 2.6 mg/dL 2025 9:54 AM EDT [facility] Blood Venous blood / Unknown 2025 8:58 AM EDT 2025 9:23 AM EDT Ghassan Castillo MD LAB BLOOD ORDERABLES Final Resu lt [facility] [address] [place] [address], [place] [phone] * (ABNORMAL) Occult blood x 1, stool (2025 8:54 AM EDT) FECAL OCCULT BLOOD Positive(A ) Negative 2025 9:41 AM EDT [facility] Stool Feces / Unknown 2025 8 :54 AM EDT 2025 9:07 AM EDT Geremias Romeor MD BODY FLUIDS AND STOOLS BELKYS HIRSCH Final Result Performing Organization Address City/[facility]/ZIP Co de Phone Number [facility] [address] [place] [address], [place] [phone] * Bedside Glucose *Place/Obtain serum glucose if >500 per glucometer. (2025 8:49 AM EDT) Bedside Glucose (POC) 85 65 - 99 mg/dL 2025 8:[address] [facility] arterial/capilla ry 2025 8:49 AM EDT 2025 8:51 AM EDT Ghassan Castillo MD POINT OF CARE TEST ORDERABLES F inal Result Performing Organization Address City/[facility]/ZIP Co de Phone Number [facility] [address] [place] [address], [place] * Bedside Glucose *Place/Obtain serum glucose if >500 per glucometer. (2025 4:10 AM EDT) Bedside Glucose (POC) 81 65 - 99 mg/dL 2025 4:[address] [facility] arterial/capilla ry 2025 4:10 AM EDT 2025 4:15 AM EDT us Ghassan Castillo MD POINT OF CARE TEST ORDERABLES F inal Result Performing Organization Address City/[facility]/ZIP Co de Phone Number [facility] [address] [place] [address], [place] * (ABNORMAL) LDH (2025 3:04 AM EDT) LDH 250(H) 100 - 235 U/L 2025 8:08 AM EDT [facility] Blood Venous blood / Unknown Venipuncture / Unknown 2025 3:04 AM EDT 2025 3:30 AM EDT Geremias Romero MD LAB BLOOD ORDERABLES Final Result [facility] [address] [place] [address], [place] [phone] * (ABNORMAL) Reticulocytes (2025 3:04 AM EDT) Reticulocyte Count 2.9(H) 0.4 - 2.2 % 2025 7:56 AM EDT [facility] Blood Venous blood / Unknown Venipuncture / Unknown 2025 3:04 AM EDT 2025 3:30 AM EDT Geremias Romero MD LAB BLOOD ORDERABLES Final Result Performing Organization Address City/[facility]/ZIP Co de Phone Number [facility] [address] [place] [address], [place] [phone] * Anti XA unfractionated heparin (2025 3:04 AM EDT) ANTI XA UFH 0.58 0.30 - 0.70 IU/mL 2025 3:59 AM EDT [facility] Comment: Optimal time for testing is 6 hrs post dosage This test is specific for monitoring patients on UFH, and is not recommended for use with other Anti-Xa medications. Blood Venous blood / Unknown Venipuncture / Unknown 2025 3:04 AM EDT 2025 3:30 AM EDT Ghassan Castillo MD LAB BLOOD ORDERABLES Final Resu lt [facility] [address] [place] [address], [place] [phone] * Ionized calcium (2025 3:04 AM EDT) IONIZED CALCIUM - ICAN 4.5 4.5 - 5.3 mg/dL 2025 3:59 AM EDT [facility] Blood Venous blood / Unknown Venipuncture / Unknown 2025 3:04 AM EDT 2025 3:30 AM EDT Armani Fall MD LAB BLOOD ORDERABLES Final Resul t [facility] [address] [place] [address], * Phosphorus (2025 3:04 AM EDT) PHOSPHORUS 2.5 2.4 - 4.9 mg/dL 2025 3:58 AM EDT [facility] Blood Venous blood / Unknown Venipuncture / Unknown 2025 3:04 AM EDT 2025 3:30 AM EDT Дмитрий Lara MD LAB BLOOD ORDERABLES Final Resul t [facility] [address] [place] [address], * Protime & INR (2025 3:04 AM EDT) PROTIME 13.2 9.8 - 13.2 sec 2025 3:59 AM EDT [facility] INR 1.2 0.9 - 1.2 2025 3:59 AM EDT [facility] Blood Venous blood / Unknown Venipuncture / Unknown 2025 3:04 AM EDT 2025 3:30 AM EDT Eleni Harding STUDENT TRUCK DRIVER-ASSISTANT [employer] LAB BLOOD ORDERABLES Fi nal Result [facility] [address] [place] [address], [place] [phone] * (ABNORMAL) Basic Metabolic Panel (2025 3:04 AM EDT) SODIUM 141 134 - 146 mmol/L 2025 3:58 AM EDT [facility] POTASSIUM 3.8 3.5 - 5.0 mmol/L 2025 3:58 AM EDT [facility] CHLORIDE 107 98 - 109 mmol/L 2025 3:58 AM EDT [facility] CARBON DIOXIDE 26 22 - 32 mmol/L 2025 3:58 AM EDT [facility] ANION GAP 8 5 - 15 mmol/L 2025 3:58 AM EDT [facility] BLOOD UREA NITROGEN 13 5 - 27 mg/dL 2025 3:58 AM EDT [facility] CREATININE 0.37(L) 0.40 - 1.00 mg/dL 2025 3:58 AM EDT [facility] Comment:METHOD TRACEABLE TO IDMS STANDARD GLUCOSE 77 65 - 99 mg/dL 2025 3:58 AM EDT [facility] CALCIUM 7.5(L) 8.5 - 10.5 mg/dL 2025 3:58 AM EDT [facility] EGFR Non-Race Dependent >90 >=60 ml/min/1.7 3sq.m 2025 3:58 AM EDT [facility] Comment: Reported eGFR is based on the CKD-EPI 2020 equation that does not use a race coefficient. Blood Venous blood / Unknown Venipuncture / Unknown 2025 3:04 AM EDT 2025 3:30 AM EDT us Armani Fall MD LAB BLOOD ORDERABLES Final Resul t [facility] [address] [place] [address], [place] [phone] * (ABNORMAL) CBC without diff (2025 3:04 AM EDT) WBC 9.1 4 - 11 x10E9/L 2025 3:57 AM EDT [facility] RBC Count 3.61(L) 3.8 - 5.2 X10E12/L 2025 3:57 AM EDT [facility] Hemoglobin 9.5(L) 11.7 - 15.5 g/dL 2025 3:57 AM EDT [facility] Hematocrit 29.8(L) 35 - 47 % 2025 3:57 AM EDT [facility] MCV 83 80 - 100 fL 2025 3:57 AM EDT [facility] MCH 26.4(L) 27 - 34 pg 2025 3:57 AM EDT [facility] MCHC 32.0 32 - 36 g/dL 2025 3:57 AM EDT [facility] RDW 27.3(H) 11.5 - 15 % 2025 3:57 AM EDT [facility] Platelet Count 169 150 - 450 X10E9/L 2025 3:57 AM EDT [facility] MPV 8.1 7 - 12 fL 2025 3:57 AM EDT [facility] Blood Venous blood / Unknown Venipuncture / Unknown 2025 3:04 AM EDT 2025 3:30 AM EDT us 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 [place] [address], * Magnesium (2025 3:04 AM EDT) Pathologist [facility] MAGNESIUM 1.8 1.8 - 2.6 mg/dL 2025 3:58 AM EDT [facility] Blood Venous blood / Unknown Venipuncture / Unknown 2025 3:04 AM EDT 2025 3:30 AM EDT 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 [place] [address], * (ABNORMAL) Phosphorus (03/15/2025 10:31 PM EDT) Pathologist [facility] PHOSPHORUS 2.3(L) 2.4 - 4.9 mg/dL 03/15/2025 11:08 PM EDT [facility] Blood Venous blood / Unknown Venipuncture / Unknown 03/15/2025 10:31 PM EDT 03/15/2025 10:39 PM EDT Armani Fall MD LAB BLOOD ORDERABLES Final Resul t [facility] [address] [place] [address], * (ABNORMAL) Basic Metabolic Panel (03/15/2025 10:31 PM EDT) Pathologist [facility] SODIUM 140 134 - 146 mmol/L 03/15/2025 11:08 PM EDT [facility] POTASSIUM 3.9 3.5 - 5.0 mmol/L 03/15/2025 11:08 PM EDT [facility] CHLORIDE 108 98 - 109 mmol/L 03/15/2025 11:08 PM EDT [facility] CARBON DIOXIDE 26 22 - 32 mmol/L 03/15/2025 11:08 PM EDT [facility] ANION GAP 6 5 - 15 mmol/L 03/15/2025 11:08 PM EDT [facility] BLOOD UREA NITROGEN 13 5 - 27 mg/dL 03/15/2025 11:08 PM EDT [facility] CREATININE 0.39(L) 0.40 - 1.00 mg/dL 03/15/2025 11:08 PM EDT [facility] Comment:METHOD TRACEABLE TO IDMS STANDARD GLUCOSE 93 65 - 99 mg/dL 03/15/2025 11:08 PM EDT [facility] CALCIUM 7.3(L) 8.5 - 10.5 mg/dL 03/15/2025 11:08 PM EDT [facility] EGFR Non-Race Dependent >90 >=60 ml/min/1.7 3sq.m 03/15/2025 11:08 PM EDT [facility] Comment: Reported eGFR is based on the CKD-EPI 2020 equation that does not use a race coefficient. Blood Venous blood / Unknown Venipuncture / Unknown 03/15/2025 10:31 PM EDT 03/15/2025 10:39 PM EDT us Armani Fall MD LAB BLOOD ORDERABLES Final Resul t [facility] [address] [place] [address], [place] [phone] * (ABNORMAL) Bedside Glucose *Place/Obtain serum glucose if >500 per glucometer. (03/15/2025 8:40 PM EDT) Bedside Glucose (POC) 108(H) 65 - 99 mg/dL 03/15/2025 8:[address] [facility] arterial/capilla ry 03/15/2025 8:40 PM EDT 03/15/2025 8:46 PM EDT us Ghassan Castillo MD POINT OF CARE TEST ORDERABLES F inal Result [facility] [address] [place] [address], [place] * (ABNORMAL) Basic Metabolic Panel (03/15/2025 1:56 PM EDT) SODIUM 142 134 - 146 mmol/L 03/15/2025 2:45 PM EDT [facility] POTASSIUM 3.4(L) 3.5 - 5.0 mmol/L 03/15/2025 2:45 PM EDT [facility] CHLORIDE 109 98 - 109 mmol/L 03/15/2025 2:45 PM EDT [facility] CARBON DIOXIDE 29 22 - 32 mmol/L 03/15/2025 2:45 PM EDT [facility] ANION GAP 4(L) 5 - 15 mmol/L 03/15/2025 2:45 PM EDT [facility] BLOOD UREA NITROGEN 13 5 - 27 mg/dL 03/15/2025 2:45 PM EDT [facility] CREATININE 0.44 0.40 - 1.00 mg/dL 03/15/2025 2:45 PM EDT [facility] Comment:METHOD TRACEABLE TO IDMS STANDARD GLUCOSE 123(H) 65 - 99 mg/dL 03/15/2025 2:45 PM EDT [facility] CALCIUM 7.3(L) 8.5 - 10.5 mg/dL 03/15/2025 2:45 PM EDT [facility] EGFR Non-Race Dependent >90 >=60 ml/min/1.7 3sq.m 03/15/2025 2:45 PM EDT [facility] Comment: Reported eGFR is based on the CKD-EPI 2020 equation that does not use a race coefficient. Blood Venous blood / Unknown 03/15/2025 1:56 PM EDT 03/15/2025 2:11 PM EDT us Armani Fall MD LAB BLOOD ORDERABLES Final Resul t [facility] [address] [place] [address], [place] [phone] * (ABNORMAL) Phosphorus (03/15/2025 1:56 PM EDT) PHOSPHORUS 1.9(L) 2.4 - 4.9 mg/dL 03/15/2025 2:45 PM EDT [facility] Blood Venous blood / Unknown 03/15/2025 1:56 PM EDT 03/15/2025 2:11 PM EDT us Armani Fall MD LAB BLOOD ORDERABLES Final Resul t [facility] [address] [place] [address], * GREEN LIHP ICE TOP (03/15/2025 1:55 PM EDT) Extra Tube Auto Resulted 03/15/2025 3:01 PM EDT [facility] Blood Venous blood / Unknown 03/15/2025 1:55 PM EDT 03/15/2025 2:13 PM EDT Ghassan Castillo MD LAB BLOOD ORDERABLES Final Resu lt [facility] [address] [place] [address], [place] [phone] * (ABNORMAL) Ionized calcium (03/15/2025 1:55 PM EDT) IONIZED CALCIUM - ICAN 4.4(L) 4.5 - 5.3 mg/dL 03/15/2025 2:23 PM EDT [facility] Blood Venous blood / Unknown 03/15/2025 1:55 PM EDT 03/15/2025 2:13 PM EDT us Armani Fall MD LAB BLOOD ORDERABLES Final Resul t [facility] [address] [place] [address], * (ABNORMAL) Liver panel (03/15/2025 9:10 AM EDT) TOTAL PROTEIN 4.3(L) 6.0 - 8.0 g/dL 03/15/2025 12:45 PM EDT [facility] ALBUMIN 2.0(L) 3.2 - 5.3 g/dL 03/15/2025 12:45 PM EDT [facility] BILIRUBIN,TOTAL 0.6 0.3 - 1.2 mg/dL 03/15/2025 12:45 PM EDT [facility] ALKALINE PHOSPHATASE 235(H) 39 - 130 U/L 03/15/2025 12:45 PM EDT [facility] AST 22 <=41 U/L 03/15/2025 12:45 PM EDT [facility] ALT 16 <=31 U/L 03/15/2025 12:45 PM EDT [facility] BILIRUBIN,DIRECT 0.3 <=0.4 mg/dL 03/15/2025 12:45 PM EDT [facility] Blood Venous blood / Unknown 03/15/2025 9:10 AM EDT 03/15/2025 9:20 AM EDT us Emanuel Rubio MD LAB BLOOD ORDERABLES Final Res ult [facility] [address] [place] [address], * (ABNORMAL) Basic Metabolic Panel (03/15/2025 9:10 AM EDT) SODIUM 144 134 - 146 mmol/L 03/15/2025 9:50 AM EDT [facility] POTASSIUM 3.9 3.5 - 5.0 mmol/L 03/15/2025 9:50 AM EDT [facility] CHLORIDE 111(H) 98 - 109 mmol/L 03/15/2025 9:50 AM EDT [facility] CARBON DIOXIDE 27 22 - 32 mmol/L 03/15/2025 9:50 AM EDT [facility] ANION GAP 6 5 - 15 mmol/L 03/15/2025 9:50 AM EDT [facility] BLOOD UREA NITROGEN 13 5 - 27 mg/dL 03/15/2025 9:50 AM EDT [facility] CREATININE 0.43 0.40 - 1.00 mg/dL 03/15/2025 9:50 AM EDT [facility] Comment:METHOD TRACEABLE TO IDMS STANDARD GLUCOSE 142(H) 65 - 99 mg/dL 03/15/2025 9:50 AM EDT [facility] CALCIUM 7.2(L) 8.5 - 10.5 mg/dL 03/15/2025 9:50 AM EDT [facility] EGFR Non-Race Dependent >90 >=60 ml/min/1.7 3sq.m 03/15/2025 9:50 AM EDT [facility] Comment: Reported eGFR is based on the CKD-EPI 2020 equation that does not use a race coefficient. Blood Venous blood / Unknown 03/15/2025 9:10 AM EDT 03/15/2025 9:20 AM EDT us Matt Young MD LAB BLOOD ORDERABLES Final Resu lt [facility] [address] [place] [address], [place] [phone] * (ABNORMAL) Bedside Glucose *Place/Obtain serum glucose if >500 per glucometer. (03/15/2025 9:09 AM EDT) Bedside Glucose (POC) 145(H) 65 - 99 mg/dL 03/15/2025 9:[address] [facility] arterial/capilla ry 03/15/2025 9:09 AM EDT 03/15/2025 9:11 AM EDT us Ghassan Castillo MD POINT OF CARE TEST ORDERABLES F inal Result [facility] [address] [place] [address], [place] * Ionized calcium (03/15/2025 2:49 AM EDT) IONIZED CALCIUM - ICAN 4.5 4.5 - 5.3 mg/dL 03/15/2025 3:47 AM EDT [facility] Blood Venous blood / Unknown 03/15/2025 2:49 AM EDT 03/15/2025 3:08 AM EDT us Ghassan Castillo MD LAB BLOOD ORDERABLES Final Resu lt Performing Organization Address [facility] Co mi Phone Number [facility] [address] [place] [address], * Anti XA unfractionated heparin (03/15/2025 2:46 AM EDT) ANTI XA UFH 0.54 0.30 - 0.70 IU/mL 03/15/2025 3:35 AM EDT [facility] Comment: Optimal time for testing is 6 hrs post dosage This test is specific for monitoring patients on UFH, and is not recommended for use with other Anti-Xa medications. Blood Venous blood / Unknown 03/15/2025 2:46 AM EDT 03/15/2025 3:08 AM EDT us Ghassan Castillo MD LAB BLOOD ORDERABLES Final Resu lt Performing Organization Address City/[facility]/ZIP Co de Phone Number [facility] [address] [place] [address], [place] [phone] * (ABNORMAL) Phosphorus (03/15/2025 2:46 AM EDT) PHOSPHORUS 2.0(L) 2.4 - 4.9 mg/dL 03/15/2025 3:45 AM EDT [facility] Blood Venous blood / Unknown 03/15/2025 2:46 AM EDT 03/15/2025 3:08 AM EDT us Дмитрий Lara MD LAB BLOOD ORDERABLES Final Resul t Performing Organization Address City/[facility]/ZIP Co de Phone Number [facility] [address] [place] [address], [place] [phone] * Protime & INR (03/15/2025 2:46 AM EDT) PROTIME 13.0 9.8 - 13.2 sec 03/15/2025 3:35 AM EDT [facility] INR 1.1 0.9 - 1.2 03/15/2025 3:35 AM EDT [facility] Blood Venous blood / Unknown 03/15/2025 2:46 AM EDT 03/15/2025 3:08 AM EDT Eleni Harding APRN-DUYEN LAB BLOOD ORDERABLES Fi nal Result Performing Organization Address City/[facility]/ZIP Co de Phone Number [facility] [address] [place] [address], [place] [phone] * (ABNORMAL) Basic Metabolic Panel (03/15/2025 2:46 AM EDT) SODIUM 145 134 - 146 mmol/L 03/15/2025 3:45 AM EDT [facility] POTASSIUM 4.1 3.5 - 5.0 mmol/L 03/15/2025 3:45 AM EDT [facility] CHLORIDE 109 98 - 109 mmol/L 03/15/2025 3:45 AM EDT [facility] CARBON DIOXIDE 28 22 - 32 mmol/L 03/15/2025 3:45 AM EDT [facility] ANION GAP 8 5 - 15 mmol/L 03/15/2025 3:45 AM EDT [facility] BLOOD UREA NITROGEN 13 5 - 27 mg/dL 03/15/2025 3:45 AM EDT [facility] CREATININE 0.45 0.40 - 1.00 mg/dL 03/15/2025 3:45 AM EDT [facility] Comment:METHOD TRACEABLE TO IDMS STANDARD GLUCOSE 118(H) 65 - 99 mg/dL 03/15/2025 3:45 AM EDT [facility] CALCIUM 7.7(L) 8.5 - 10.5 mg/dL 03/15/2025 3:45 AM EDT [facility] EGFR Non-Race Dependent >90 >=60 ml/min/1.7 3sq.m 03/15/2025 3:45 AM EDT [facility] Comment: Reported eGFR is based on the CKD-EPI 2020 equation that does not use a race coefficient. Blood Venous blood / Unknown 03/15/2025 2:46 AM EDT 03/15/2025 3:08 AM EDT us Matt Young MD LAB BLOOD ORDERABLES Final Resu lt [facility] [address] [place] [address], * (ABNORMAL) Vitamin D 25 hydroxy (03/15/2025 2:46 AM EDT) VITAMIN D 25 HYD TOT <7.0(L) 30.0 - 100.0 ng/mL 03/15/2025 4:06 AM EDT [facility] Blood Venous blood / Unknown 03/15/2025 2:46 AM EDT 03/15/2025 3:08 AM EDT Narrative [facility] - 03/15/2025 4:06 AM EDT Vitamin D status 25 [place] Vitamin D Deficiency <20 ng/mL Insufficiency 20-29 ng/mL Sufficiency 30-100 ng/mL Toxicity >100 ng/mL NOTE: A pediatric reference range has not been established by the secretary of state of this kit. The [place] [employer] recommends a Vitamin D level of = or >20ng/mL in infants and children. us Matt Young MD LAB BLOOD ORDERABLES Final Resu lt [facility] [address] [place] [address], * (ABNORMAL) CBC without diff (03/15/2025 2:46 AM EDT) WBC 9.6 4 - 11 x10E9/L 03/15/2025 3:24 AM EDT [facility] RBC Count 4.42 3.8 - 5.2 X10E12/L 03/15/2025 3:24 AM EDT [facility] Hemoglobin 11.6(L) 11.7 - 15.5 g/dL 03/15/2025 3:24 AM EDT [facility] Hematocrit 36.5 35 - 47 % 03/15/2025 3:24 AM EDT [facility] MCV 82 80 - 100 fL 03/15/2025 3:24 AM EDT [facility] MCH 26.3(L) 27 - 34 pg 03/15/2025 3:24 AM EDT [facility] MCHC 32.0 32 - 36 g/dL 03/15/2025 3:24 AM EDT [facility] RDW 27.4(H) 11.5 - 15 % 03/15/2025 3:24 AM EDT [facility] Platelet Count 185 150 - 450 X10E9/L 03/15/2025 3:24 AM EDT [facility] MPV 8.4 7 - 12 fL 03/15/2025 3:24 AM EDT [facility] Blood Venous blood / Unknown 03/15/2025 2:46 AM EDT 03/15/2025 3:08 AM EDT Neelima Ta [facility] LAB BLOOD ORDERABLES Fi nal Result [facility] [address] [place] [address], [place] [phone] * Magnesium (03/15/2025 2:46 AM EDT) MAGNESIUM 2.0 1.8 - 2.6 mg/dL 03/15/2025 3:45 AM EDT [facility] Blood Venous blood / Unknown 03/15/2025 2:46 AM EDT 03/15/2025 3:08 AM EDT Neelima Ta [facility] LAB BLOOD ORDERABLES Fi nal Result Performing Organization Address City/[facility]/ZIP Co de Phone Number [facility] [address] [place] [address], [place] [phone] * (ABNORMAL) Bedside Glucose *Place/Obtain serum glucose if >500 per glucometer. (03/14/2025 8:32 PM EDT) Bedside Glucose (POC) 131(H) 65 - 99 mg/dL 03/14/2025 8:[address] [facility] arterial/capilla ry 03/14/2025 8:32 PM EDT 03/14/2025 8:34 PM EDT us Ghassan Castillo MD POINT OF CARE TEST ORDERABLES F inal Result Performing Organization Address City/[facility]/ZIP Co de Phone Number [facility] [address] [place] [address], [place] * (ABNORMAL) Basic Metabolic Panel (03/14/2025 8:32 PM EDT) SODIUM 145 134 - 146 mmol/L 03/14/2025 9:26 PM EDT [facility] POTASSIUM 3.7 3.5 - 5.0 mmol/L 03/14/2025 9:26 PM EDT [facility] CHLORIDE 108 98 - 109 mmol/L 03/14/2025 9:26 PM EDT [facility] CARBON DIOXIDE 30 22 - 32 mmol/L 03/14/2025 9:26 PM EDT [facility] ANION GAP 7 5 - 15 mmol/L 03/14/2025 9:26 PM EDT [facility] BLOOD UREA NITROGEN 13 5 - 27 mg/dL 03/14/2025 9:26 PM EDT [facility] CREATININE 0.49 0.40 - 1.00 mg/dL 03/14/2025 9:26 PM EDT [facility] Comment:METHOD TRACEABLE TO IDMS STANDARD GLUCOSE 125(H) 65 - 99 mg/dL 03/14/2025 9:26 PM EDT [facility] CALCIUM 7.4(L) 8.5 - 10.5 mg/dL 03/14/2025 9:26 PM EDT [facility] EGFR Non-Race Dependent >90 >=60 ml/min/1.7 3sq.m 03/14/2025 9:26 PM EDT [facility] Comment: Reported eGFR is based on the CKD-EPI 2020 equation that does not use a race coefficient. Blood Venous blood / Unknown 03/14/2025 8:32 PM EDT 03/14/2025 8:55 PM EDT us Matt Young MD LAB BLOOD ORDERABLES Final Resu lt [facility] [address] [place] [address], [place] [phone] * (ABNORMAL) Basic Metabolic Panel (03/14/2025 2:30 PM EDT) SODIUM 146 134 - 146 mmol/L 03/14/2025 4:26 PM EDT [facility] POTASSIUM 3.9 3.5 - 5.0 mmol/L 03/14/2025 4:26 PM EDT [facility] CHLORIDE 108 98 - 109 mmol/L 03/14/2025 4:26 PM EDT [facility] CARBON DIOXIDE 31 22 - 32 mmol/L 03/14/2025 4:26 PM EDT [facility] ANION GAP 7 5 - 15 mmol/L 03/14/2025 4:26 PM EDT [facility] BLOOD UREA NITROGEN 13 5 - 27 mg/dL 03/14/2025 4:26 PM EDT [facility] CREATININE 0.51 0.40 - 1.00 mg/dL 03/14/2025 4:26 PM EDT [facility] Comment:METHOD TRACEABLE TO IDMS STANDARD GLUCOSE 120(H) 65 - 99 mg/dL 03/14/2025 4:26 PM EDT [facility] CALCIUM 7.6(L) 8.5 - 10.5 mg/dL 03/14/2025 4:26 PM EDT [facility] EGFR Non-Race Dependent >90 >=60 ml/min/1.7 3sq.m 03/14/2025 4:26 PM EDT [facility] Comment: Reported eGFR is based on the CKD-EPI 2020 equation that does not use a race coefficient. Blood Venous blood / Unknown 03/14/2025 2:30 PM EDT 03/14/2025 2:43 PM EDT us Armani Fall MD LAB BLOOD ORDERABLES Final Resul t [facility] [address] [place] [address], * Potassium (03/14/2025 2:30 PM EDT) POTASSIUM 3.8 3.5 - 5.0 mmol/L 03/14/2025 3:14 PM EDT [facility] Blood Venous blood / Unknown 03/14/2025 2:30 PM EDT 03/14/2025 2:43 PM EDT us Armani Fall MD LAB BLOOD ORDERABLES Final Resul t Performing Organization Address City/[facility]/ZIP Co de Phone Number [facility] [address] [place] [address], [place] [phone] * (ABNORMAL) Phosphorus (03/14/2025 2:30 PM EDT) PHOSPHORUS 2.0(L) 2.4 - 4.9 mg/dL 03/14/2025 3:14 PM EDT [facility] Blood Venous blood / Unknown 03/14/2025 2:30 PM EDT 03/14/2025 2:43 PM EDT us Armani Fall MD LAB BLOOD ORDERABLES Final Resul t Performing Organization Address [facility] Co de Phone Number [facility] [address] [place] [address], [place] [phone] * (ABNORMAL) Bedside Glucose *Place/Obtain serum glucose if >500 per glucometer. (03/14/2025 2:15 PM EDT) Bedside Glucose (POC) 130(H) 65 - 99 mg/dL 03/14/2025 2:[address] [facility] arterial/capilla ry 03/14/2025 2:15 PM EDT 03/14/2025 2:16 PM EDT us Ghassan Castillo MD POINT OF CARE TEST ORDERABLES F inal Result Performing Organization Address City/[facility]/ZIP Co de Phone Number [facility] [address] [place] [address], [place] * (ABNORMAL) Bedside Glucose *Place/Obtain serum glucose if >500 per glucometer. (03/14/2025 8:20 AM EDT) Bedside Glucose (POC) 153(H) 65 - 99 mg/dL 03/14/2025 8:[address] [facility] arterial/capilla ry 03/14/2025 8:20 AM EDT 03/14/2025 8:21 AM EDT Ghassan Castillo MD POINT OF CARE TEST ORDERABLES F inal Result [facility] [address] [place] [address], [place] * Ionized calcium (03/14/2025 3:39 AM EDT) IONIZED CALCIUM - ICAN 4.5 4.5 - 5.3 mg/dL 03/14/2025 4:08 AM EDT [facility] Blood Venous blood / Unknown 03/14/2025 3:39 AM EDT 03/14/2025 3:58 AM EDT us Дмитрий Lara MD LAB BLOOD ORDERABLES Final Resul t Performing Organization Address City/[facility]/ZIP Co de Phone Number [facility] [address] [place] [address], [place] [phone] * Type and screen(includes indirect ramos) (03/14/2025 3:33 AM EDT) ABO A 03/14/2025 6:[address] [facility] RH Positive 03/14/2025 6:[address] [facility] Antibody Screen Negative 03/14/2025 6:[address] [facility] Blood Venous blood / Unknown 03/14/2025 3:33 AM EDT 03/14/2025 3:56 AM EDT us Дмитрий Lara MD BLOOD BANK TEST ORDERABLES Edite d Result - Final [facility] [address] [place] [address], [facility] [address] [place] [address], [place] * (ABNORMAL) Phosphorus (03/14/2025 2:34 AM EDT) Pathologist [facility] PHOSPHORUS 1.8(L) 2.4 - 4.9 mg/dL 03/14/2025 3:33 AM EDT [facility] Blood Venous blood / Unknown 03/14/2025 2:34 AM EDT 03/14/2025 2:44 AM EDT Дмитрий Lara MD LAB BLOOD ORDERABLES Final Resul t [facility] [address] [place] [address], * (ABNORMAL) Protime & INR (03/14/2025 2:34 AM EDT) [facility] PROTIME 14.2(H) 9.8 - 13.2 sec 03/14/2025 3:07 AM EDT [facility] INR 1.3(H) 0.9 - 1.2 03/14/2025 3:07 AM EDT [facility] Blood Venous blood / Unknown 03/14/2025 2:34 AM EDT 03/14/2025 2:44 AM EDT Eleni Harding APRN-DUYEN LAB BLOOD ORDERABLES Fi nal Result [facility] [address] [place] [address], [place] [phone] * (ABNORMAL) Basic Metabolic Panel (03/14/2025 2:34 AM EDT) [facility] SODIUM 148(H) 134 - 146 mmol/L 03/14/2025 3:33 AM EDT [facility] POTASSIUM 3.6 3.5 - 5.0 mmol/L 03/14/2025 3:33 AM EDT [facility] CHLORIDE 108 98 - 109 mmol/L 03/14/2025 3:33 AM EDT [facility] CARBON DIOXIDE 35(H) 22 - 32 mmol/L 03/14/2025 3:33 AM EDT [facility] ANION GAP 5 5 - 15 mmol/L 03/14/2025 3:33 AM EDT [facility] BLOOD UREA NITROGEN 13 5 - 27 mg/dL 03/14/2025 3:33 AM EDT [facility] CREATININE 0.46 0.40 - 1.00 mg/dL 03/14/2025 3:33 AM EDT [facility] Comment:METHOD TRACEABLE TO IDMS STANDARD GLUCOSE 126(H) 65 - 99 mg/dL 03/14/2025 3:33 AM EDT [facility] CALCIUM 7.5(L) 8.5 - 10.5 mg/dL 03/14/2025 3:33 AM EDT [facility] EGFR Non-Race Dependent >90 >=60 ml/min/1.7 3sq.m 03/14/2025 3:33 AM EDT [facility] Comment: Reported eGFR is based on the CKD-EPI 2020 equation that does not use a race coefficient. Blood Venous blood / Unknown 03/14/2025 2:34 AM EDT 03/14/2025 2:44 AM EDT Neelima Ta [employer]UDENT [employer] LAB BLOOD ORDERABLES nal Result [facility] [address] [place] [address], * Anti XA unfractionated heparin (03/14/2025 2:34 AM EDT) ANTI XA UFH 0.40 0.30 - 0.70 IU/mL 03/14/2025 3:07 AM EDT [facility] Comment: Optimal time for testing is 6 hrs post dosage This test is specific for monitoring patients on UFH, and is not recommended for use with other Anti-Xa medications. Blood Venous blood / Unknown 03/14/2025 2:34 AM EDT 03/14/2025 2:44 AM EDT us Дмитрий Lara MD LAB BLOOD ORDERABLES Final Resul t [facility] [address] [place] [address], [place] [phone] * (ABNORMAL) CBC without diff (03/14/2025 2:34 AM EDT) WBC 6.4 4 - 11 x10E9/L 03/14/2025 2:59 AM EDT [facility] RBC Count 4.17 3.8 - 5.2 X10E12/L 03/14/2025 2:59 AM EDT [facility] Hemoglobin 11.0(L) 11.7 - 15.5 g/dL 03/14/2025 2:59 AM EDT [facility] Hematocrit 34.3(L) 35 - 47 % 03/14/2025 2:59 AM EDT [facility] MCV 82 80 - 100 fL 03/14/2025 2:59 AM EDT [facility] MCH 26.4(L) 27 - 34 pg 03/14/2025 2:59 AM EDT [facility] MCHC 32.1 32 - 36 g/dL 03/14/2025 2:59 AM EDT [facility] RDW 26.7(H) 11.5 - 15 % 03/14/2025 2:59 AM EDT [facility] Platelet Count 147(L) 150 - 450 X10E9/L 03/14/2025 2:59 AM EDT [facility] MPV 8.3 7 - 12 fL 03/14/2025 2:59 AM EDT [facility] Blood Venous blood / Unknown 03/14/2025 2:34 AM EDT 03/14/2025 2:44 AM EDT 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 [place] [address], * Magnesium (03/14/2025 2:34 AM EDT) MAGNESIUM 2.1 1.8 - 2.6 mg/dL 03/14/2025 3:33 AM EDT [facility] Blood Venous blood / Unknown 03/14/2025 2:34 AM EDT 03/14/2025 2:44 AM EDT Neelima Ta [employer]UDENT [employer] LAB BLOOD ORDERABLES Fi nal Result Performing Organization Address City/[facility]/ZIP Co de Phone Number [facility] [address] [place] [address], * (ABNORMAL) Bedside Glucose *Place/Obtain serum glucose if >500 per glucometer. (03/14/2025 2:33 AM EDT) Bedside Glucose (POC) 145(H) 65 - 99 mg/dL 03/14/2025 2:[address] [facility] arterial/capilla ry 03/14/2025 2:33 AM EDT 03/14/2025 2:38 AM EDT Ghassan Castillo MD POINT OF CARE TEST ORDERABLES F inal Result [facility] [address] [place] [address], [place] * (ABNORMAL) Bedside Glucose *Place/Obtain serum glucose if >500 per glucometer. (03/13/2025 8:05 PM EDT) Bedside Glucose (POC) 140(H) 65 - 99 mg/dL 03/13/2025 8:[address] [facility] arterial/capilla ry 03/13/2025 8:05 PM EDT 03/13/2025 8:10 PM EDT Ghassan Castillo MD POINT OF CARE TEST ORDERABLES F inal Result [facility] [address] [place] [address], [place] * Potassium (03/13/2025 6:14 PM EDT) POTASSIUM 4.2 3.5 - 5.0 mmol/L 03/13/2025 7:04 PM EDT [facility] Blood Venous blood / Unknown 03/13/2025 6:14 PM EDT 03/13/2025 6:30 PM EDT Sarath Hoover MD LAB BLOOD ORDERABLES Final Resul t [facility] [address] [place] [address], [place] [phone] * Ionized calcium (03/13/2025 6:14 PM EDT) [facility] IONIZED CALCIUM - ICAN 4.6 4.5 - 5.3 mg/dL 03/13/2025 6:43 PM EDT [facility] Blood Venous blood / Unknown 03/13/2025 6:14 PM EDT 03/13/2025 6:30 PM EDT Sarath Hoover MD LAB BLOOD ORDERABLES Final Resul t [facility] [address] [place] [address], [place] [phone] * (ABNORMAL) Bedside Glucose *Place/Obtain serum glucose if >500 per glucometer. (03/13/2025 2:55 PM EDT) Pathologist [facility] Bedside Glucose (POC) 119(H) 65 - 99 mg/dL 03/13/2025 5:[address] [facility] arterial/capilla ry 03/13/2025 2:55 PM EDT 03/13/2025 5:52 PM EDT Ghassan Castillo MD POINT OF CARE TEST ORDERABLES F inal Result [facility] [address] [place] [address], [place] * Phosphorus (03/13/2025 12:08 PM EDT) PHOSPHORUS 2.6 2.4 - 4.9 mg/dL 03/13/2025 12:54 PM EDT [facility] Blood Venous blood / Unknown 03/13/2025 12:08 PM EDT 03/13/2025 12:30 PM EDT Дмитрий Lara MD LAB BLOOD ORDERABLES Final Resul t [facility] [address] [place] [address], * Ionized magnesium (03/13/2025 12:08 PM EDT) IONIZED MAGNESIUM 0.65 0.45 - 0.74 mmol/L 03/13/2025 12:45 PM EDT [facility] Blood Venous blood / Unknown 03/13/2025 12:08 PM EDT 03/13/2025 12:30 PM EDT Дмитрий Lara MD LAB BLOOD ORDERABLES Final Resul t [facility] [address] [place] [address], [place] [phone] * Potassium (03/13/2025 9:33 AM EDT) POTASSIUM 3.5 3.5 - 5.0 mmol/L 03/13/2025 10:09 AM EDT [facility] Blood Venous blood / Unknown 03/13/2025 9:33 AM EDT 03/13/2025 9:42 AM EDT us Дмитрий Lara MD LAB BLOOD ORDERABLES Final Resul t [facility] [address] [place] [address], [place] [phone] * Phosphorus (03/13/2025 9:33 AM EDT) PHOSPHORUS 3.0 2.4 - 4.9 mg/dL 03/13/2025 10:09 AM EDT [facility] Blood Venous blood / Unknown 03/13/2025 9:33 AM EDT 03/13/2025 9:42 AM EDT us Дмитрий Lara MD LAB BLOOD ORDERABLES Final Resul t [facility] [address] [place] [address], [place] [phone] * Magnesium (03/13/2025 9:33 AM EDT) MAGNESIUM 2.3 1.8 - 2.6 mg/dL 03/13/2025 10:09 AM EDT [facility] Blood Venous blood / Unknown 03/13/2025 9:33 AM EDT 03/13/2025 9:42 AM EDT 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 [place] [address], [place] [phone] * (ABNORMAL) Bedside Glucose *Place/Obtain serum glucose if >500 per glucometer. (03/13/2025 9:26 AM EDT) Bedside Glucose (POC) 129(H) 65 - 99 mg/dL 03/13/2025 9:[address] [facility] arterial/capilla ry 03/13/2025 9:26 AM EDT 03/13/2025 9:27 AM EDT us Ghassan Castillo MD POINT OF CARE TEST ORDERABLES F inal Result [facility] [address] [place] [address], [place] * X-ray chest 1 view (03/13/2025 6:57 AM EDT) Anatomical Region Laterality Modality Body, Chest N/A Computed Radiogr aphy 03/13/2025 7:00 AM EDT Narrative 03/13/2025 7:02 AM EDT CLINICAL HISTORY: Postextubation Comparison: 03/12/2025 Views: 1 view FINDINGS: * NG tube courses below GE junction. Double-lumen catheter overlies SVC. Lower lobe atelectasis and small effusions. No pneumothorax. Subcutaneous gas slightly decreased overlying left chest as compared to previous exam. IMPRESSION: * No significant change Finalized by Jb Cifuentes MD on 03/13/2025 7:02 AM Procedure Note Jb Cifuentes MD - 03/13/2025 CLINICAL HISTORY: Postextubation Comparison: 03/12/2025 Views: 1 view FINDINGS: * NG tube courses below GE junction. Double-lumen catheter overlies SVC.Lower lobe atelectasis and small effusions. No pneumothorax. Subcutaneousgas slightly decreased overlying left chest as compared to previousexam. IMPRESSION: * No significant change Finalized by Jb Cifuentes MD on 03/13/2025 7:02 AM us Sarath Hoover MD IMG DIAGNOSTIC IMAGING ORDERABLE S Final Result * (ABNORMAL) Bedside Glucose *Place/Obtain serum glucose if >500 per glucometer. (03/13/2025 4:57 AM EDT) Bedside Glucose (POC) 147(H) 65 - 99 mg/dL 03/13/2025 5:[address] [facility] arterial/capilla ry 03/13/2025 4:57 AM EDT 03/13/2025 5:02 AM EDT us Ghassan Castillo MD POINT OF CARE TEST ORDERABLES F inal Result Performing Organization Address City/[facility]/ZIP Co de Phone Number [facility] [address] [place] [address], [place] * (ABNORMAL) Ionized calcium (03/13/2025 4:54 AM EDT) [facility] IONIZED CALCIUM - ICAN 4.3(L) 4.5 - 5.3 mg/dL 03/13/2025 5:26 AM EDT [facility] Blood Venous blood / Unknown 03/13/2025 4:54 AM EDT 03/13/2025 5:10 AM EDT us Дмитрий Lara MD LAB BLOOD ORDERABLES Final Resul t Performing Organization Address [facility] Co de Phone Number [facility] [address] [place] [address], [place] [phone] * (ABNORMAL) Protime & INR (03/13/2025 1:54 AM EDT) [facility] PROTIME 14.4(H) 9.8 - 13.2 sec 03/13/2025 2:39 AM EDT [facility] INR 1.3(H) 0.9 - 1.2 03/13/2025 2:39 AM EDT [facility] Blood Venous blood / Unknown 03/13/2025 1:54 AM EDT 03/13/2025 2:12 AM EDT us Eleni Harding STUDENT TRUCK [employer]IVER-[employer]ANT [employer] LAB BLOOD ORDERABLES Fi nal Result Performing Organization Address City/[facility] Co de Phone Number [facility] [address] [place] [address], [place] [phone] * (ABNORMAL) CBC without diff (03/13/2025 1:54 AM EDT) WBC 5.5 4 - 11 x10E9/L 03/13/2025 2:26 AM EDT [facility] RBC Count 3.97 3.8 - 5.2 X10E12/L 03/13/2025 2:26 AM EDT [facility] Hemoglobin 10.4(L) 11.7 - 15.5 g/dL 03/13/2025 2:26 AM EDT [facility] Hematocrit 32.5(L) 35 - 47 % 03/13/2025 2:26 AM EDT [facility] MCV 82 80 - 100 fL 03/13/2025 2:26 AM EDT [facility] MCH 26.1(L) 27 - 34 pg 03/13/2025 2:26 AM EDT [facility] MCHC 31.9(L) 32 - 36 g/dL 03/13/2025 2:26 AM EDT [facility] RDW 27.6(H) 11.5 - 15 % 03/13/2025 2:26 AM EDT [facility] Platelet Count 105(L) 150 - 450 X10E9/L 03/13/2025 2:26 AM EDT [facility] MPV 8.3 7 - 12 fL 03/13/2025 2:26 AM EDT [facility] Blood Venous blood / Unknown 03/13/2025 1:54 AM EDT 03/13/2025 2:12 AM EDT 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 [place] [address], * (ABNORMAL) Phosphorus (03/13/2025 1:53 AM EDT) PHOSPHORUS 2.1(L) 2.4 - 4.9 mg/dL 03/13/2025 4:18 AM EDT [facility] Blood Venous blood / Unknown 03/13/2025 1:53 AM EDT 03/13/2025 2:12 AM EDT us Дмитрий Lara MD LAB BLOOD ORDERABLES Final Resul t [facility] [address] [place] [address], * Magnesium (03/13/2025 1:53 AM EDT) Pathologist [facility] MAGNESIUM 1.9 1.8 - 2.6 mg/dL 03/13/2025 4:18 AM EDT [facility] Blood Venous blood / Unknown 03/13/2025 1:53 AM EDT 03/13/2025 2:12 AM EDT us Дмитрий Lara MD LAB BLOOD ORDERABLES Final Resul t [facility] [address] [place] [address], * Anti XA unfractionated heparin (03/13/2025 1:53 AM EDT) Pathologist [facility] ANTI XA UFH 0.38 0.30 - 0.70 IU/mL 03/13/2025 2:39 AM EDT [facility] Comment: Optimal time for testing is 6 hrs post dosage This test is specific for monitoring patients on UFH, and is not recommended for use with other Anti-Xa medications. Blood Venous blood / Unknown 03/13/2025 1:53 AM EDT 03/13/2025 2:12 AM EDT us Дмитрий Lara MD LAB BLOOD ORDERABLES Final Resul t [facility] [address] [place] [address], * (ABNORMAL) Basic Metabolic Panel (03/13/2025 1:53 AM EDT) SODIUM 147(H) 134 - 146 mmol/L 03/13/2025 2:41 AM EDT [facility] POTASSIUM 3.1(L) 3.5 - 5.0 mmol/L 03/13/2025 2:41 AM EDT [facility] CHLORIDE 106 98 - 109 mmol/L 03/13/2025 2:41 AM EDT [facility] CARBON DIOXIDE 34(H) 22 - 32 mmol/L 03/13/2025 2:41 AM EDT [facility] ANION GAP 7 5 - 15 mmol/L 03/13/2025 2:41 AM EDT [facility] BLOOD UREA NITROGEN 16 5 - 27 mg/dL 03/13/2025 2:41 AM EDT [facility] CREATININE 0.64 0.40 - 1.00 mg/dL 03/13/2025 2:41 AM EDT [facility] Comment:METHOD TRACEABLE TO IDMS STANDARD GLUCOSE 120(H) 65 - 99 mg/dL 03/13/2025 2:41 AM EDT [facility] CALCIUM 7.4(L) 8.5 - 10.5 mg/dL 03/13/2025 2:41 AM EDT [facility] EGFR Non-Race Dependent >90 >=60 ml/min/1.7 3sq.m 03/13/2025 2:41 AM EDT [facility] Comment: Reported eGFR is based on the CKD-EPI 2020 equation that does not use a race coefficient. Blood Venous blood / Unknown 03/13/2025 1:53 AM EDT 03/13/2025 2:12 AM EDT Neelima Ta STUDENT [employer]IVER-[employer] LAB BLOOD ORDERABLES Fi nal Result [facility] [address] [place] [address], [place] [phone] * (ABNORMAL) Bedside Glucose *Place/Obtain serum glucose if >500 per glucometer. (03/12/2025 9:44 PM EDT) Bedside Glucose (POC) 127(H) 65 - 99 mg/dL 03/12/2025 10:[address] [facility] arterial/capilla ry 03/12/2025 9:44 PM EDT 03/12/2025 10:45 PM EDT us Ghassan Castillo MD POINT OF CARE TEST ORDERABLES F inal Result Performing Organization Address City/[facility]/ZIP Co de Phone Number [facility] [address] [place] [address], [place] * X-ray chest 1 view (03/12/2025 9:02 PM EDT) Anatomical Region Laterality Modality Body, Chest N/A Computed Radiogr aphy 03/12/2025 10:0 0 PM EDT Narrative 03/12/2025 10:00 PM EDT Single view chest History: Difficulty breathing, shortness of breath Comparison: 03/12/2025 Impression: Extubation. Unchanged right IJ catheter, gastric drainage tube. Removal left- sided chest tube. Persistent left body wall emphysema. No definite pneumothorax seen. Left greater than right bibasilar opacities, likely atelectasis. Nonenlarged heart. Finalized by Mingo Palmer MD on 03/12/2025 10:00 PM Procedure Note Mingo Palmer MD - 03/12/2025 Single view chest History: Difficulty breathing, shortness of breath Comparison: 03/12/2025 Impression: Extubation. Unchanged right IJ catheter, gastric drainage tube. Removalleft- sided chest tube. Persistent left body wall emphysema. No definite pneumothorax seen. Leftgreater than right bibasilar opacities, likely atelectasis. Nonenlarged heart. Finalized by Mingo Palmer MD on 03/12/2025 10:00 PM us Venita Chan MD IMG DIAGNOSTIC IMAGING ORDERAB LES Final Result * (ABNORMAL) Bedside Glucose *Place/Obtain serum glucose if >500 per glucometer. (03/12/2025 2:01 PM EDT) Pathologist [facility] Bedside Glucose (POC) 128(H) 65 - 99 mg/dL 03/12/2025 2:[address] [facility] arterial/capilla ry 03/12/2025 2:01 PM EDT 03/12/2025 2:03 PM EDT Ghassan Castillo MD POINT OF CARE TEST ORDERABLES F inal Result [facility] [address] [place] [address], [place] * Potassium (03/12/2025 1:55 PM EDT) [facility] POTASSIUM 4.0 3.5 - 5.0 mmol/L 03/12/2025 2:36 PM EDT [facility] Blood Venous blood / Unknown 03/12/2025 1:55 PM EDT 03/12/2025 2:11 PM EDT Ghassan Castillo MD LAB BLOOD ORDERABLES Final Resu lt [facility] [address] [place] [address], [place] [phone] * Anti XA unfractionated heparin (03/12/2025 1:55 PM EDT) [facility] ANTI XA UFH 0.42 0.30 - 0.70 IU/mL 03/12/2025 2:33 PM EDT [facility] Comment: Optimal time for testing is 6 hrs post dosage This test is specific for monitoring patients on UFH, and is not recommended for use with other Anti-Xa medications. Blood Venous blood / Unknown 03/12/2025 1:55 PM EDT 03/12/2025 2:11 PM EDT us Ghassan Castillo MD LAB BLOOD ORDERABLES Final Resu lt [facility] [address] [place] [address], [place] [phone] * (ABNORMAL) Ionized calcium (03/12/2025 12:20 PM EDT) IONIZED CALCIUM - ICAN 4.4(L) 4.5 - 5.3 mg/dL 03/12/2025 2:49 PM EDT [facility] Blood Venous blood / Unknown 03/12/2025 12:20 PM EDT 03/12/2025 2:45 PM EDT us Ghassan Castillo MD LAB BLOOD ORDERABLES Final Resu lt Performing Organization Address [facility]/ZIP Co de Phone Number [facility] [address] [place] [address], [place] [phone] * (ABNORMAL) Bedside Glucose *Place/Obtain serum glucose if >500 per glucometer. (03/12/2025 9:29 AM EDT) Bedside Glucose (POC) 116(H) 65 - 99 mg/dL 03/12/2025 9:[address] [facility] arterial/capilla ry 03/12/2025 9:29 AM EDT 03/12/2025 9:30 AM EDT us Ghassan Castillo MD POINT OF CARE TEST ORDERABLES F inal Result [facility] [address] [place] [address], [place] * (ABNORMAL) Bedside Glucose *Place/Obtain serum glucose if >500 per glucometer. (03/12/2025 9:24 AM EDT) Bedside Glucose (POC) <20(LL) 65 - 99 mg/dL 03/12/2025 9:28 AM EDT [facility] arterial/capilla ry 03/12/2025 9:24 AM EDT 03/12/2025 9:28 AM EDT Ghassan Castillo MD POINT OF CARE TEST ORDERABLES F inal Result [facility] [address] [place] [address], [place] * Potassium (03/12/2025 8:04 AM EDT) [facility] POTASSIUM 3.7 3.5 - 5.0 mmol/L 03/12/2025 8:44 AM EDT [facility] Blood Venous blood / Unknown 03/12/2025 8:04 AM EDT 03/12/2025 8:14 AM EDT us Дмитрий Lara MD LAB BLOOD ORDERABLES Final Resul t [facility] [address] [place] [address], [place] [phone] * Anti XA unfractionated heparin (03/12/2025 8:04 AM EDT) ANTI XA UFH 0.38 0.30 - 0.70 IU/mL 03/12/2025 8:27 AM EDT [facility] Comment: Optimal time for testing is 6 hrs post dosage This test is specific for monitoring patients on UFH, and is not recommended for use with other Anti-Xa medications. Blood Venous blood / Unknown 03/12/2025 8:04 AM EDT 03/12/2025 8:14 AM EDT us Дмитрий Lara MD LAB BLOOD ORDERABLES Final Resul t [facility] [address] [place] [address], * X-ray chest 1 view (03/12/2025 4:36 AM EDT) Anatomical Region Laterality Modality Body, Chest N/A Computed Radiogr aphy 03/12/2025 4:41 AM EDT Narrative 03/12/2025 4:44 AM EDT Clinical history: Intubated. Comparisons: 03/09/2025 through 03/11/2025. Findings: AP portable supine chest radiograph obtained. Endotracheal tube terminates 5 cm above the level of the venecia. Left-sided chest tube unchanged with sidehole likely just outside of the level of the pleural space similar to previous 3 exams. There is no pneumothorax. There is bibasilar subsegmental atelectasis. Right IJ central venous catheter/sheath unchanged and confluence of innominate veins. PH probe terminates in distal esophagus. Nasogastric tube terminates off film in left upper abdomen. Pleural effusion. Continued decrease in volume of left lateral chest wall subcutaneous emphysema. IMPRESSION: 1. No pneumothorax. 2. Satisfactory ET tube position. Finalized by Arsalan Lott MD on 03/12/2025 4:44 AM Procedure Note Arsalan Lott MD - 03/12/2025 Clinical history: Intubated. Comparisons: 03/09/2025 through 03/11/2025. Findings: AP portable supine chest radiograph obtained. Endotracheal tubeterminates 5 cm above the level of the venecia. Left-sided chest tubeunchanged with sidehole likely just outside of the level of the pleuralspace similar to previous 3 exams. There is no pneumothorax. There isbibasilar subsegmental atelectasis. Right IJ central venous catheter/sheathunchanged and confluence of innominate veins. PH probe terminates indistal esophagus. Nasogastric tube terminates off film in left upperabdomen. Pleural effusion. Continued decrease in volume of left lateralchest wall subcutaneous emphysema. IMPRESSION: 1. No pneumothorax. 2. Satisfactory ET tube position. Finalized by Arsalan Lott MD on 03/12/2025 4:44 AM us Дмитрий Lara MD IMG DIAGNOSTIC IMAGING ORDERABLE S Final Result * (ABNORMAL) Ionized calcium (03/12/2025 3:12 AM EDT) IONIZED CALCIUM - ICAN 4.3(L) 4.5 - 5.3 mg/dL 03/12/2025 4:44 AM EDT [facility] Blood Venous blood / Unknown 03/12/2025 3:12 AM EDT 03/12/2025 3:22 AM EDT us Дмитрий Lara MD LAB BLOOD ORDERABLES Final Resul t [facility] [address] [place] [address], [place] [phone] * Bedside Glucose *Place/Obtain serum glucose if >500 per glucometer. (03/12/2025 3:11 AM EDT) Bedside Glucose (POC) 86 65 - 99 mg/dL 03/12/2025 3:[address] [facility] arterial/capilla ry 03/12/2025 3:11 AM EDT 03/12/2025 3:13 AM EDT Ghassan Castillo MD POINT OF CARE TEST ORDERABLES F inal Result [facility] [address] [place] [address], [place] * Phosphorus (03/12/2025 2:05 AM EDT) PHOSPHORUS 2.4 2.4 - 4.9 mg/dL 03/12/2025 2:51 AM EDT [facility] Blood Venous blood / Unknown 03/12/2025 2:05 AM EDT 03/12/2025 2:18 AM EDT Дмитрий Lara MD LAB BLOOD ORDERABLES Final Resul t [facility] [address] [place] [address], * (ABNORMAL) Protime & INR (03/12/2025 2:05 AM EDT) PROTIME 13.5(H) 9.8 - 13.2 sec 03/12/2025 2:56 AM EDT [facility] INR 1.2 0.9 - 1.2 03/12/2025 2:56 AM EDT [facility] Blood Venous blood / Unknown 03/12/2025 2:05 AM EDT 03/12/2025 2:18 AM EDT Eleni Harding APRN-DUYEN LAB BLOOD ORDERABLES Fi nal Result [facility] [address] [place] [address], * (ABNORMAL) Basic Metabolic Panel (03/12/2025 2:05 AM EDT) [facility] SODIUM 144 134 - 146 mmol/L 03/12/2025 2:51 AM EDT [facility] POTASSIUM 3.1(L) 3.5 - 5.0 mmol/L 03/12/2025 2:51 AM EDT [facility] CHLORIDE 109 98 - 109 mmol/L 03/12/2025 2:51 AM EDT [facility] CARBON DIOXIDE 26 22 - 32 mmol/L 03/12/2025 2:51 AM EDT [facility] ANION GAP 9 5 - 15 mmol/L 03/12/2025 2:51 AM EDT [facility] BLOOD UREA NITROGEN 22 5 - 27 mg/dL 03/12/2025 2:51 AM EDT [facility] CREATININE 0.81 0.40 - 1.00 mg/dL 03/12/2025 2:51 AM EDT [facility] Comment:METHOD TRACEABLE TO IDMS STANDARD GLUCOSE 86 65 - 99 mg/dL 03/12/2025 2:51 AM EDT [facility] CALCIUM 7.0(L) 8.5 - 10.5 mg/dL 03/12/2025 2:51 AM EDT [facility] EGFR Non-Race Dependent 79 >=60 ml/min/1.7 3sq.m 03/12/2025 2:51 AM EDT [facility] Comment: Reported eGFR is based on the CKD-EPI 2020 equation that does not use a race coefficient. Blood Venous blood / Unknown 03/12/2025 2:05 AM EDT 03/12/2025 2:18 AM EDT 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 [place] [address], [place] [phone] * (ABNORMAL) Anti XA unfractionated heparin (03/12/2025 2:05 AM EDT) [facility] ANTI XA UFH 0.28(L) 0.30 - 0.70 IU/mL 03/12/2025 2:56 AM EDT [facility] Comment: Optimal time for testing is 6 hrs post dosage This test is specific for monitoring patients on UFH, and is not recommended for use with other Anti-Xa medications. Blood Venous blood / Unknown 03/12/2025 2:05 AM EDT 03/12/2025 2:18 AM EDT Orion Damico MD LAB BLOOD ORDERABLES Final R esult [facility] [address] [place] [address], * (ABNORMAL) APTT (03/12/2025 2:05 AM EDT) Pathologist [facility] APTT 48(H) 26 - 37 sec 03/12/2025 2:56 AM EDT [facility] Blood Venous blood / Unknown 03/12/2025 2:05 AM EDT 03/12/2025 2:18 AM EDT us Orion Damico MD LAB BLOOD ORDERABLES Final R esult [facility] [address] [place] [address], [place] [phone] * (ABNORMAL) CBC without diff (03/12/2025 2:05 AM EDT) [facility] WBC 5.9 4 - 11 x10E9/L 03/12/2025 2:50 AM EDT [facility] RBC Count 3.85 3.8 - 5.2 X10E12/L 03/12/2025 2:50 AM EDT [facility] Hemoglobin 10.2(L) 11.7 - 15.5 g/dL 03/12/2025 2:50 AM EDT [facility] Hematocrit 31.2(L) 35 - 47 % 03/12/2025 2:50 AM EDT [facility] MCV 81 80 - 100 fL 03/12/2025 2:50 AM EDT [facility] MCH 26.4(L) 27 - 34 pg 03/12/2025 2:50 AM EDT [facility] MCHC 32.6 32 - 36 g/dL 03/12/2025 2:50 AM EDT [facility] RDW 26.7(H) 11.5 - 15 % 03/12/2025 2:50 AM EDT [facility] Platelet Count 92(L) 150 - 450 X10E9/L 03/12/2025 2:50 AM EDT [facility] MPV 8.3 7 - 12 fL 03/12/2025 2:50 AM EDT [facility] Blood Venous blood / Unknown 03/12/2025 2:05 AM EDT 03/12/2025 2:19 AM EDT Neelima Serge Ta [facility]AB[facility] Fi nal Result [facility] [address] [place] [address], * Magnesium (03/12/2025 2:05 AM EDT) MAGNESIUM 1.8 1.8 - 2.6 mg/dL 03/12/2025 2:51 AM EDT [facility] Blood Venous blood / Unknown 03/12/2025 2:05 AM EDT 03/12/2025 2:18 AM EDT Neelima Serge Ta [facility] BLOOD ORDERABLES Fi nal Result Performing Organization Address City/[facility]/ZIP Co de Phone Number [facility] [address] [place] [address], * Bedside Glucose *Place/Obtain serum glucose if >500 per glucometer. (03/11/2025 8:52 PM EDT) Bedside Glucose (POC) 74 65 - 99 mg/dL 03/11/2025 8:[address] [facility] arterial/capilla ry 03/11/2025 8:52 PM EDT 03/11/2025 8:53 PM EDT Ghassan Castillo MD POINT OF CARE TEST ORDERABLES F inal Result Performing Organization Address City/[facility]/ZIP Co de Phone Number [facility] [address] [place] [address], [place] * Bedside Glucose *Place/Obtain serum glucose if >500 per glucometer. (03/11/2025 4:45 PM EDT) Bedside Glucose (POC) 73 65 - 99 mg/dL 03/11/2025 4:[address] [facility] arterial/capilla ry 03/11/2025 4:45 PM EDT 03/11/2025 4:50 PM EDT us Ghassan Castillo MD POINT OF CARE TEST ORDERABLES F inal Result [facility] [address] [place] [address], [place] * Ionized magnesium (03/11/2025 4:40 PM EDT) Pathologist [facility] IONIZED MAGNESIUM 0.58 0.45 - 0.74 mmol/L 03/11/2025 5:39 PM EDT [facility] Blood Venous blood / Unknown 03/11/2025 4:40 PM EDT 03/11/2025 4:50 PM EDT us London Merino MD LAB BLOOD ORDERABLES Final Resul t Performing Organization Address City/[facility]/ZIP Co de Phone Number [facility] [address] [address] [place] [address], * Ionized calcium (03/11/2025 4:40 PM EDT) IONIZED CALCIUM - ICAN 4.5 4.5 - 5.3 mg/dL 03/11/2025 5:39 PM EDT [facility] Blood Venous blood / Unknown 03/11/2025 4:40 PM EDT 03/11/2025 4:50 PM EDT us London Merino MD LAB BLOOD ORDERABLES Final Resul t Performing Organization Address City/[facility]/ZIP Co de Phone Number [facility] [address] [place] [address], [place] [phone] * Anti XA unfractionated heparin (03/11/2025 4:40 PM EDT) ANTI XA UFH 0.30 0.30 - 0.70 IU/mL 03/11/2025 5:01 PM EDT [facility] Comment: Optimal time for testing is 6 hrs post dosage This test is specific for monitoring patients on UFH, and is not recommended for use with other Anti-Xa medications. Blood Venous blood / Unknown 03/11/2025 4:40 PM EDT 03/11/2025 4:50 PM EDT Orion Damico MD LAB BLOOD ORDERABLES Final R esult [facility] [address] [place] [address], [place] [phone] * (ABNORMAL) Hemoglobin and hematocrit, blood (03/11/2025 4:40 PM EDT) [facility] Hemoglobin 10.2(L) 11.7 - 15.5 g/dL 03/11/2025 4:55 PM EDT [facility] Hematocrit 31.2(L) 35 - 47 % 03/11/2025 4:55 PM EDT [facility] Blood Venous blood / Unknown 03/11/2025 4:40 PM EDT 03/11/2025 4:50 PM EDT Ashok Hwang DO LAB BLOOD ORDERABLES Final Resul t Performing Organization Address City/[facility]/ZIP Co de Phone Number [facility] [address] [place] [address], [place] [phone] * Heparin PF4 AB (03/11/2025 12:53 PM EDT) [facility] HEPARIN PF4 ANTIBODY (HIT) 0.191 <0.400 OD 03/12/2025 3:29 PM EDT [facility] Comment: ------ O.D. Interpretation--- < 0.400 Negative >= 0.400 Positive Blood Venous blood / Unknown 03/11/2025 12:53 PM EDT 03/11/2025 1:04 PM EDT Tanya Kraus STUDENT TRUCK DRIVER-ASSISTANT [employer]OR [employer] LAB BLOOD ORDERABLES Final Result [facility] [address] [place] [address], [place] [phone] * (ABNORMAL) Blood Gas, Arterial (03/11/2025 11:47 AM EDT) Sample type ARTERIAL 03/11/2025 11:[address] [facility] pH, Arterial 7.408 7.350 - 7.450 03/11/2025 11:52 AM [facility] pCO2, Arterial 38.8 35.0 - 45.0 mmHg 03/11/2025 11:52 AM [facility] PO2, Arterial 129(H) 80 - 100 mmHg 03/11/2025 11:52 AM [facility] Base, Excess 0.0 0.0 - 2.0 mmol/L 03/11/2025 11:52 AM [facility] HCO3, Arterial 24.5 22.0 - 26.0 mmol/L 03/11/2025 11:52 AM [facility] %O2 Saturation, Arterial 99.0 >90.0 % 03/11/2025 11:[address] [facility] Irwin's test N/A 03/11/2025 11:[address] [facility] SPO2 97 % 03/11/2025 11:[address] [facility] Sample site A Line 03/11/2025 11:[address] [facility] Insp. O2 conc. 40 % 03/11/2025 11:[address] [facility] Source Of Oxygen Vent 03/11/2025 11:[address] [facility] arterial (Blood, Arterial) 03/11/2025 11:47 AM EDT 03/11/2025 11:52 AM EDT us Ghassan Castillo MD LAB BLOOD ORDERABLES Final Resu lt Performing Organization Address [facility] Co de Phone Number [facility] [address] [place] [address], [place] * Bedside Glucose *Place/Obtain serum glucose if >500 per glucometer. (03/11/2025 10:59 AM EDT) Bedside Glucose (POC) 81 65 - 99 mg/dL 03/11/2025 11:[address] [facility] arterial/capilla ry 03/11/2025 10:59 AM EDT 03/11/2025 11:05 AM EDT us Ghassan Castillo MD POINT OF CARE TEST ORDERABLES F inal Result Performing Organization Address [facility] Co de Phone Number [facility] [address] [place] [address], [place] * X-ray chest 1 view (03/11/2025 4:28 AM EDT) Anatomical Region Laterality Modality Body, Chest N/A Computed Radiogr aphy 03/11/2025 5:09 AM EDT Narrative 03/11/2025 5:10 AM EDT Single view chest History:pneumothorax Difficulty breathing, shortness of breath Comparison: 03/10/2025 Findings: Single portable view of the chest. Stable endotracheal tube and enteric catheter. Left chest tube is stable. There is stable right jugular catheter and bilateral lower lung atelectasis versus pneumonia. There is decreased left pneumothorax with small apical pneumothorax remaining measuring 6 cm. Impression: Stable tubes and lines. Decreasing small left pneumothorax. Otherwise, stable chest. Finalized by Dheeraj Wang MD on 03/11/2025 5:10 AM Procedure Note Dheeraj Wang MD - 03/11/2025 Single view chest History:pneumothorax Difficulty breathing, shortness of breath Comparison: 03/10/2025 Findings: Single portable view of the chest. Stable endotracheal tube and entericcatheter. Left chest tube is stable. There is stable right jugularcatheter and bilateral lower lung atelectasis versus pneumonia. There isdecreased left pneumothorax with small apical pneumothorax remainingmeasuring 6 cm. Impression: Stable tubes and lines. Decreasing small left pneumothorax. Otherwise, stable chest. Finalized by Dheeraj Wang MD on 03/11/2025 5:10 AM us Sarath Hoover MD IMG DIAGNOSTIC IMAGING ORDERABLE S Final Result * (ABNORMAL) Blood Gas, Arterial (03/11/2025 4:12 AM EDT) Sample type ARTERIAL 03/11/2025 4:35 AM [facility] pH, Arterial 7.408 7.350 - 7.450 03/11/2025 4:35 AM [facility] pCO2, Arterial 39.7 35.0 - 45.0 mmHg 03/11/2025 4:35 AM [facility] PO2, Arterial 130(H) 80 - 100 mmHg 03/11/2025 4:35 AM [facility] Base, Excess 0.0 0.0 - 2.0 mmol/L 03/11/2025 4:35 AM [facility] HCO3, Arterial 25.0 22.0 - 26.0 mmol/L 03/11/2025 4:35 AM [facility] %O2 Saturation, Arterial 99.0 >90.0 % 03/11/2025 4:35 AM [facility] Irwin's test N/A 03/11/2025 4:35 AM [facility] SPO2 97 % 03/11/2025 4:35 AM [facility] Sample site A Line 03/11/2025 4:35 AM [facility] Insp. O2 conc. 40 % 03/11/2025 4:35 AM [facility] Source Of Oxygen Vent 03/11/2025 4:35 AM [facility] arterial (Blood, Arterial) 03/11/2025 4:12 AM EDT 03/11/2025 4:35 AM EDT Ghassan Castillo MD LAB BLOOD ORDERABLES Final Resu lt Performing Organization Address [facility] Co de Phone Number [facility] [address] [place] [address], [place] * Ionized calcium (03/11/2025 3:51 AM EDT) IONIZED CALCIUM - ICAN 4.5 4.5 - 5.3 mg/dL 03/11/2025 4:22 AM EDT [facility] Blood Venous blood / Unknown 03/11/2025 3:51 AM EDT 03/11/2025 4:02 AM EDT us Дмитрий Lara MD LAB BLOOD ORDERABLES Final Resul t Performing Organization Address [facility] de Phone Number [facility] [address] [place] [address], [place] [phone] * Bedside Glucose *Place/Obtain serum glucose if >500 per glucometer. (03/11/2025 3:20 AM EDT) Pathologist [facility] Bedside Glucose (POC) 99 65 - 99 mg/dL 03/11/2025 3:[address] [facility] arterial/capilla ry 03/11/2025 3:20 AM EDT 03/11/2025 3:21 AM EDT us Ghassan Castillo MD POINT OF CARE TEST ORDERABLES F inal Result Performing Organization Address [facility] Co de Phone Number [facility] [address] [place] [address], [place] * Phosphorus (03/11/2025 2:10 AM EDT) PHOSPHORUS 2.8 2.4 - 4.9 mg/dL 03/11/2025 3:32 AM EDT [facility] Blood Venous blood / Unknown 03/11/2025 2:10 AM EDT 03/11/2025 2:26 AM EDT Дмитрий Lara MD LAB BLOOD ORDERABLES Final Resul t [facility] [address] [place] [address], [place] [phone] * (ABNORMAL) Protime & INR (03/11/2025 2:10 AM EDT) PROTIME 13.4(H) 9.8 - 13.2 sec 03/11/2025 3:19 AM EDT [facility] INR 1.2 0.9 - 1.2 03/11/2025 3:19 AM EDT [facility] Blood Venous blood / Unknown 03/11/2025 2:10 AM EDT 03/11/2025 2:26 AM EDT Eleni Harding STUDENT TRUCK DRIVER-ASSISTANT [employer]OR [employer] LAB BLOOD ORDERABLES Fi nal Result [facility] [address] [place] [address], [place] [phone] * (ABNORMAL) Basic Metabolic Panel (03/11/2025 2:10 AM EDT) SODIUM 140 134 - 146 mmol/L 03/11/2025 3:32 AM EDT [facility] POTASSIUM 3.9 3.5 - 5.0 mmol/L 03/11/2025 3:32 AM EDT [facility] CHLORIDE 109 98 - 109 mmol/L 03/11/2025 3:32 AM EDT [facility] CARBON DIOXIDE 23 22 - 32 mmol/L 03/11/2025 3:32 AM EDT [facility] ANION GAP 8 5 - 15 mmol/L 03/11/2025 3:32 AM EDT [facility] BLOOD UREA NITROGEN 29(H) 5 - 27 mg/dL 03/11/2025 3:32 AM EDT [facility] CREATININE 0.99 0.40 - 1.00 mg/dL 03/11/2025 3:32 AM EDT [facility] Comment:METHOD TRACEABLE TO [facility] STANDARD GLUCOSE 106(H) 65 - 99 mg/dL 03/11/2025 3:32 AM EDT [facility] CALCIUM 7.4(L) 8.5 - 10.5 mg/dL 03/11/2025 3:32 AM EDT [facility] EGFR Non-Race Dependent 62 >=60 ml/min/1.7 3sq.m 03/11/2025 3:32 AM EDT [facility] Comment: Reported eGFR is based on the CKD-EPI 2020 equation that does not use a race coefficient. Blood Venous blood / Unknown 03/11/2025 2:10 AM EDT 03/11/2025 2:26 AM EDT Neelima Ta APRN-ASSISTANT [employer]OR [employer] LAB BLOOD ORDERABLES Fi nal Result [facility] [address] [place] [address], * (ABNORMAL) APTT (03/11/2025 2:10 AM EDT) APTT 58(H) 26 - 37 sec 03/11/2025 3:19 AM EDT [facility] Blood Venous blood / Unknown 03/11/2025 2:10 AM EDT 03/11/2025 2:26 AM EDT Дмитрий Lara MD LAB BLOOD ORDERABLES Final Resul t [facility] [address] [place] [address], [place] [phone] * (ABNORMAL) CBC without diff (03/11/2025 2:10 AM EDT) WBC 8.3 4 - 11 x10E9/L 03/11/2025 3:17 AM EDT [facility] RBC Count 3.75(L) 3.8 - 5.2 X10E12/L 03/11/2025 3:17 AM EDT [facility] Hemoglobin 10.1(L) 11.7 - 15.5 g/dL 03/11/2025 3:17 AM EDT [facility] Hematocrit 30.2(L) 35 - 47 % 03/11/2025 3:17 AM EDT [facility] MCV 80 80 - 100 fL 03/11/2025 3:17 AM EDT [facility] MCH 26.8(L) 27 - 34 pg 03/11/2025 3:17 AM EDT [facility] MCHC 33.4 32 - 36 g/dL 03/11/2025 3:17 AM EDT [facility] RDW 26.6(H) 11.5 - 15 % 03/11/2025 3:17 AM EDT [facility] Platelet Count 89(L) 150 - 450 X10E9/L 03/11/2025 3:17 AM EDT [facility] MPV 8.2 7 - 12 fL 03/11/2025 3:17 AM EDT [facility] Blood Venous blood / Unknown 03/11/2025 2:10 AM EDT 03/11/2025 2:26 AM EDT us 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 [place] [address], * Magnesium (03/11/2025 2:10 AM EDT) [facility] MAGNESIUM 2.1 1.8 - 2.6 mg/dL 03/11/2025 3:32 AM EDT [facility] Blood Venous blood / Unknown 03/11/2025 2:10 AM EDT 03/11/2025 2:26 AM EDT us 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 [place] [address], * Potassium (03/11/2025 12:37 AM EDT) POTASSIUM 4.0 3.5 - 5.0 mmol/L 03/11/2025 1:29 AM EDT [facility] Blood Venous blood / Unknown 03/11/2025 12:37 AM EDT 03/11/2025 12:50 AM EDT Aminta EUCEDA LAB BLOOD ORDERABLES Final Result Performing Organization Address [facility]/ZIP Co de Phone Number [facility] [address] [place] [address], [place] [phone] * (ABNORMAL) Bedside Glucose *Place/Obtain serum glucose if >500 per glucometer. (03/10/2025 8:32 PM EDT) Bedside Glucose (POC) 114(H) 65 - 99 mg/dL 03/10/2025 8:[address] [facility] arterial/capilla ry 03/10/2025 8:32 PM EDT 03/10/2025 8:34 PM EDT us Ghassan Castillo MD POINT OF CARE TEST ORDERABLES F inal Result Performing Organization Address City/[facility]/ZIP Co de Phone Number [facility] [address] [place] [address], [place] * (ABNORMAL) APTT (03/10/2025 8:30 PM EDT) APTT 55(H) 26 - 37 sec 03/10/2025 9:36 PM EDT [facility] Blood Venous blood / Unknown 03/10/2025 8:30 PM EDT 03/10/2025 8:45 PM EDT us Дмитрий Lara MD LAB BLOOD ORDERABLES Final Resul t Performing Organization Address City/[facility]/ZIP Co de Phone Number [facility] [address] [place] [address], [place] [phone] * Anti XA unfractionated heparin (03/10/2025 8:30 PM EDT) ANTI XA UFH 0.36 0.30 - 0.70 IU/mL 03/10/2025 9:07 PM EDT [facility] Comment: Optimal time for testing is 6 hrs post dosage This test is specific for monitoring patients on UFH, and is not recommended for use with other Anti-Xa medications. Blood Venous blood / Unknown 03/10/2025 8:30 PM EDT 03/10/2025 8:45 PM EDT us Ghassan Castillo MD LAB BLOOD ORDERABLES Final Resu lt Performing Organization Address [facility]/ZIP Co de Phone Number [facility] [address] [place] [address], [place] [phone] * (ABNORMAL) Hemoglobin and hematocrit, blood (03/10/2025 8:30 PM EDT) Hemoglobin 10.4(L) 11.7 - 15.5 g/dL 03/10/2025 8:59 PM EDT [facility] Hematocrit 32.0(L) 35 - 47 % 03/10/2025 8:59 PM EDT [facility] Blood Venous blood / Unknown 03/10/2025 8:30 PM EDT 03/10/2025 8:45 PM EDT us Aminta EUCEDA LAB BLOOD ORDERABLES Final Result [facility] [address] [place] [address], * Potassium (03/10/2025 5:47 PM EDT) POTASSIUM 4.1 3.5 - 5.0 mmol/L 03/10/2025 6:23 PM EDT [facility] Blood Venous blood / Unknown 03/10/2025 5:47 PM EDT 03/10/2025 5:55 PM EDT us Aminta EUCEDA LAB BLOOD ORDERABLES Final Result Performing Organization Address City/[facility]/ZIP Co de Phone Number [facility] [address] [place] [address], * (ABNORMAL) Bedside Glucose *Place/Obtain serum glucose if >500 per glucometer. (03/10/2025 3:59 PM EDT) Bedside Glucose (POC) 117(H) 65 - 99 mg/dL 03/10/2025 4:[address] [facility] arterial/capilla ry 03/10/2025 3:59 PM EDT 03/10/2025 4:07 PM EDT Ghassan Castillo MD POINT OF CARE TEST ORDERABLES F inal Result [facility] [address] [place] [address], [place] * Potassium (03/10/2025 1:16 PM EDT) POTASSIUM 4.2 3.5 - 5.0 mmol/L 03/10/2025 2:13 PM EDT [facility] Blood Venous blood / Unknown 03/10/2025 1:16 PM EDT 03/10/2025 1:35 PM EDT us Aminta EUCEDA LAB BLOOD ORDERABLES Final Result [facility] [address] [place] [address], * (ABNORMAL) Hemoglobin and hematocrit, blood (03/10/2025 1:16 PM EDT) Hemoglobin 10.7(L) 11.7 - 15.5 g/dL 03/10/2025 1:52 PM EDT [facility] Hematocrit 33.1(L) 35 - 47 % 03/10/2025 1:52 PM EDT [facility] Blood Venous blood / Unknown 03/10/2025 1:16 PM EDT 03/10/2025 1:35 PM EDT Aminta Bolden Dennis DC LAB BLOOD ORDERABLES Final Result Performing Organization Address City/[facility]/ZIP Co de Phone Number [facility] [address] [place] [address], * (ABNORMAL) Bedside Glucose *Place/Obtain serum glucose if >500 per glucometer. (03/10/2025 10:00AM EDT) Bedside Glucose (POC) 117(H) 65 - 99 mg/dL 03/10/2025 10:[address] [facility] arterial/capilla ry 03/10/2025 10:00 AM EDT 03/10/2025 10:05 AM EDT Ghassan Castillo MD POINT OF CARE TEST ORDERABLES F inal Result [facility] [address] [place] [address], [place] * (ABNORMAL) Bedside Glucose *Place/Obtain serum glucose if >500 per glucometer. (03/10/2025 8:30 AM EDT) Bedside Glucose (POC) 128(H) 65 - 99 mg/dL 03/10/2025 8:[address] [facility] arterial/capilla ry 03/10/2025 8:30 AM EDT 03/10/2025 8:35 AM EDT us Ghassan Castillo MD POINT OF CARE TEST ORDERABLES F inal Result [facility] [address] [place] [address], [place] * Ionized calcium (03/10/2025 5:35 AM EDT) IONIZED CALCIUM - ICAN 4.5 4.5 - 5.3 mg/dL 03/10/2025 6:13 AM EDT [facility] Blood Venous blood / Unknown 03/10/2025 5:35 AM EDT 03/10/2025 5:44 AM EDT us Дмитрий Lara MD LAB BLOOD ORDERABLES Final Resul t [facility] [address] [place] [address], [place] [phone] * X-ray chest 1 view (03/10/2025 4:54 AM EDT) Anatomical Region Laterality Modality Body, Chest N/A Computed Radiogr aphy 03/10/2025 5:58 AM EDT Narrative 03/10/2025 6:02 AM EDT Single view chest XR CHEST 1 VW History: intubated Comparison: March 09 Impression: * Pneumothorax remains with a indwelling left chest tube. Pneumothorax is larger than the prior study currently approximately 17 mm at the left upper lobe. The amount of gas within the left chest wall is increasing. Minimal atelectasis at the lung bases. Grossly no effusion * Tubes and lines are unchanged Finalized by Oli Salvador MD on 03/10/2025 6:02 AM Procedure Note Oli Salvador MD - 03/10/2025 Single view chest XR CHEST 1 VW History: intubated Comparison: March 09 Impression: * Pneumothorax remains with a indwelling left chest tube. Pneumothorax islarger than the prior study currently approximately 17 mm at the leftupper lobe. The amount of gas within the left chest wall is increasing.Minimal atelectasis at the lung bases. Grossly no effusion * Tubes and lines are unchanged Finalized by Oli Salvador MD on 03/10/2025 6:02 AM Дмитрий Lara MD IMG DIAGNOSTIC IMAGING ORDERABLE S Final Result * (ABNORMAL) Blood Gas, Arterial (03/10/2025 4:47 AM EDT) Sample type ARTERIAL 03/10/2025 5:14 AM [facility] pH, Arterial 7.452(H) 7.350 - 7.450 03/10/2025 5:14 AM [facility] pCO2, Arterial 34.1(L) 35.0 - 45.0 mmHg 03/10/2025 5:14 AM [facility] PO2, Arterial 109(H) 80 - 100 mmHg 03/10/2025 5:14 AM [facility] Base, Excess 0.0 0.0 - 2.0 mmol/L 03/10/2025 5:14 AM [facility] HCO3, Arterial 23.8 22.0 - 26.0 mmol/L 03/10/2025 5:14 AM [facility] %O2 Saturation, Arterial 99.0 >90.0 % 03/10/2025 5:14 AM [facility] Irwin's test N/A 03/10/2025 5:14 AM [facility] SPO2 96 % 03/10/2025 5:14 AM [facility] Sample site A Line 03/10/2025 5:14 AM [facility] Insp. O2 conc. 40 % 03/10/2025 5:14 AM [facility] Source Of Oxygen Vent 03/10/2025 5:14 AM [facility] arterial (Blood, Arterial) 03/10/2025 4:47 AM EDT 03/10/2025 5:14 AM EDT Ghassan Castillo MD LAB BLOOD ORDERABLES Final Resu lt Performing Organization Address [facility] Co de Phone Number [facility] [address] [address], [place] * Bedside Glucose *Place/Obtain serum glucose if >500 per glucometer. (03/10/2025 3:37 AM EDT) Pathologist [facility] Bedside Glucose (POC) 82 65 - 99 mg/dL 03/10/2025 3:[address] [facility] arterial/capilla ry 03/10/2025 3:37 AM EDT 03/10/2025 3:38 AM EDT Ghassan Castillo MD POINT OF CARE TEST ORDERABLES F inal Result Performing Organization Address [facility] Phone Number [facility] [address] [place] [address], [place] * Phosphorus (03/10/2025 3:31 AM EDT) PHOSPHORUS 3.7 2.4 - 4.9 mg/dL 03/10/2025 4:12 AM EDT [facility] Blood Venous blood / Unknown 03/10/2025 3:31 AM EDT 03/10/2025 3:40 AM EDT us Дмитрий Lara MD LAB BLOOD ORDERABLES Final Resul t Performing Organization Address [facility] Co de Phone Number [facility] [address] [place] [address], [place] [phone] * (ABNORMAL) Protime & INR (03/10/2025 3:31 AM EDT) PROTIME 16.3(H) 9.8 - 13.2 sec 03/10/2025 4:14 AM EDT [facility] INR 1.4(H) 0.9 - 1.2 03/10/2025 4:14 AM EDT [facility] Blood Venous blood / Unknown 03/10/2025 3:31 AM EDT 03/10/2025 3:40 AM EDT us Eleni Harding STUDENT TRUCK DRIVER-ASSISTANT [employer]OR [employer] LAB BLOOD ORDERABLES Fi nal Result [facility] [address] [place] [address], * (ABNORMAL) Basic Metabolic Panel (03/10/2025 3:31 AM EDT) SODIUM 142 134 - 146 mmol/L 03/10/2025 4:12 AM EDT [facility] POTASSIUM 4.5 3.5 - 5.0 mmol/L 03/10/2025 4:12 AM EDT [facility] CHLORIDE 108 98 - 109 mmol/L 03/10/2025 4:12 AM EDT [facility] CARBON DIOXIDE 26 22 - 32 mmol/L 03/10/2025 4:12 AM EDT [facility] ANION GAP 8 5 - 15 mmol/L 03/10/2025 4:12 AM EDT [facility] BLOOD UREA NITROGEN 31(H) 5 - 27 mg/dL 03/10/2025 4:12 AM EDT [facility] CREATININE 1.13(H) 0.40 - 1.00 mg/dL 03/10/2025 4:12 AM EDT [facility] Comment:METHOD TRACEABLE TO IDMS STANDARD GLUCOSE 86 65 - 99 mg/dL 03/10/2025 4:12 AM EDT [facility] CALCIUM 7.9(L) 8.5 - 10.5 mg/dL 03/10/2025 4:12 AM EDT [facility] EGFR Non-Race Dependent 53(L) >=60 ml/min/1.7 3sq.m 03/10/2025 4:12 AM EDT [facility] Comment: Reported eGFR is based on the CKD-EPI 2020 equation that does not use a race coefficient. Blood Venous blood / Unknown 03/10/2025 3:31 AM EDT 03/10/2025 3:40 AM EDT us Neelima Serge Ta STUDENT [employer]IVER-[employer]SISTANT [employer] [facility] BLOOD ORDERABLES Fi nal Result [facility] [address] [place] [address], * (ABNORMAL) CBC without diff (03/10/2025 3:31 AM EDT) WBC 10.3 4 - 11 x10E9/L 03/10/2025 3:45 AM EDT [facility] RBC Count 4.30 3.8 - 5.2 X10E12/L 03/10/2025 3:45 AM EDT [facility] Hemoglobin 11.3(L) 11.7 - 15.5 g/dL 03/10/2025 3:45 AM EDT [facility] Hematocrit 34.5(L) 35 - 47 % 03/10/2025 3:45 AM EDT [facility] MCV 80 80 - 100 fL 03/10/2025 3:45 AM EDT [facility] MCH 26.2(L) 27 - 34 pg 03/10/2025 3:45 AM EDT [facility] MCHC 32.6 32 - 36 g/dL 03/10/2025 3:45 AM EDT [facility] RDW 24.1(H) 11.5 - 15 % 03/10/2025 3:45 AM EDT [facility] Platelet Count 117(L) 150 - 450 X10E9/L 03/10/2025 3:45 AM EDT [facility] LABORATORY MPV 8.0 7 - 12 fL 03/10/2025 3:45 AM EDT [facility] Blood Venous blood / Unknown 03/10/2025 3:31 AM EDT 03/10/2025 3:40 AM EDT Neelima Valentine McKinney [employer]UDENT [employer]-[facility] LAB BLOOD ORDERABLES Fi nal Result [facility] [address] [place] [address], [place] [phone] * Magnesium (03/10/2025 3:31 AM EDT) MAGNESIUM 2.2 1.8 - 2.6 mg/dL 03/10/2025 4:12 AM EDT [facility] Blood Venous blood / Unknown 03/10/2025 3:31 AM EDT 03/10/2025 3:40 AM EDT Neelima Serge Ta STUDENT [employer]IVER-[facility] LAB BLOOD ORDERABLES Fi nal Result Performing Organization Address City/[facility]/ZIP Co de Phone Number [facility] [address] [place] [address], [place] [phone] * Potassium (03/09/2025 10:55 PM EDT) POTASSIUM 4.5 3.5 - 5.0 mmol/L 03/09/2025 11:37 PM EDT [facility] Blood Venous blood / Unknown 03/09/2025 10:55 PM EDT 03/09/2025 11:06 PM EDT Aminta EUCEDA LAB BLOOD ORDERABLES Final Result [facility] [address] [place] [address], * Bedside Glucose *Place/Obtain serum glucose if >500 per glucometer. (03/09/2025 10:54 PM EDT) Bedside Glucose (POC) 96 65 - 99 mg/dL 03/09/2025 10:[address] [facility] arterial/capilla ry 03/09/2025 10:54 PM EDT 03/09/2025 10:55 PM EDT Ghassan Castillo MD POINT OF CARE TEST ORDERABLES F inal Result Performing Organization Address City/[facility]/ZIP Co de Phone Number [facility] [address] [address], [place] * (ABNORMAL) Hemoglobin and hematocrit, blood (03/09/2025 9:08 PM EDT) Hemoglobin 11.4(L) 11.7 - 15.5 g/dL 03/09/2025 9:35 PM EDT [facility] Hematocrit 34.3(L) 35 - 47 % 03/09/2025 9:35 PM EDT [facility] Blood Venous blood / Unknown 03/09/2025 9:08 PM EDT 03/09/2025 9:18 PM EDT Aminta Collins DC LAB BLOOD ORDERABLES Final Result Performing Organization Address [facility]/ZIP Co de Phone Number [facility] [address] [place] [address], [place] [phone] * (ABNORMAL) Bedside Glucose *Place/Obtain serum glucose if >500 per glucometer. (03/09/2025 7:31 PM EDT) Bedside Glucose (POC) 108(H) 65 - 99 mg/dL 03/09/2025 7:[address] [facility] arterial/capilla ry 03/09/2025 7:31 PM EDT 03/09/2025 7:32 PM EDT Ghassan Castillo MD POINT OF CARE TEST ORDERABLES F inal Result Performing Organization Address City/[facility]/ZIP Co de Phone Number [facility] [address] [place] [address], [place] * Potassium (03/09/2025 6:33 PM EDT) POTASSIUM 4.5 3.5 - 5.0 mmol/L 03/09/2025 7:10 PM EDT [facility] Blood Venous blood / Unknown 03/09/2025 6:33 PM EDT 03/09/2025 6:45 PM EDT Aminta EUCEDA LAB BLOOD ORDERABLES Final Result [facility] [address] [place] [address], * (ABNORMAL) Blood Gas, Arterial (03/09/2025 4:54 PM EDT) Sample type ARTERIAL 03/09/2025 4:[address] [facility] pH, Arterial 7.408 7.350 - 7.450 03/09/2025 4:[address] [facility] pCO2, Arterial 35.6 35.0 - 45.0 mmHg 03/09/2025 4:[address] [facility] PO2, Arterial 108(H) 80 - 100 mmHg 03/09/2025 4:[address] [facility] Base, Deficit -2.0(L) 0.0 - 2.0 mmol/L 03/09/2025 4:[address] [facility] HCO3, Arterial 22.5 22.0 - 26.0 mmol/L 03/09/2025 4:[address] [facility] %O2 Saturation, Arterial 98.0 >90.0 % 03/09/2025 4:[address] [facility] Irwin's test N/A 03/09/2025 4:[address] [facility] SPO2 98 % 03/09/2025 4:[address] [facility] Sample site A Line 03/09/2025 4:[address] [facility] Insp. O2 conc. 40 % 03/09/2025 4:[address] [facility] Source Of Oxygen Vent 03/09/2025 4:[address] [facility] arterial (Blood, Arterial) 03/09/2025 4:54 PM EDT 03/09/2025 4:58 PM EDT Ghassan Castillo MD LAB BLOOD ORDERABLES Final Resu lt Performing Organization Address [facility]/ZIP Co de Phone Number [facility] [address] [place] [address], [place] * (ABNORMAL) Bedside Glucose *Place/Obtain serum glucose if >500 per glucometer. (03/09/2025 3:49 PM EDT) Bedside Glucose (POC) 114(H) 65 - 99 mg/dL 03/09/2025 3:[address] [facility] arterial/capilla ry 03/09/2025 3:49 PM EDT 03/09/2025 3:50 PM EDT Ghassan Castillo MD POINT OF CARE TEST ORDERABLES F inal Result Performing Organization Address [facility] Co de Phone Number [facility] [address] [place] [address], [place] * X-ray chest 1 view (03/09/2025 11:54 AM EDT) Anatomical Region Laterality Modality Body, Chest N/A Computed Radiogr aphy 03/09/2025 11:5 8 AM EDT Narrative 03/09/2025 11:59 AM EDT CHEST 1 VIEW HISTORY: Lines and tubes COMPARISON: 03/09/2025, 4:54 AM IMPRESSION: * Left chest tube has been advanced with tip now located more medially and side port at the junction of the pleural space and chest wall. Left pneumothorax has increased in size with new basilar component and apical component measuring 1.4 cm. * Bibasilar opacities unchanged, atelectasis versus pneumonia. * Stable ET tube, gastric drainage tube, esophageal probe, and right IJ central venous catheter. * Small amount of fluid in the right chest wall. Request made to convey findings of study to ordering service on 03/09/2025 at 12:00 PM Finalized by Gregory Childers MD on 03/09/2025 11:59 AM Procedure Note Gregory Childers MD - 03/09/2025 CHEST 1 VIEW HISTORY: Lines and tubes COMPARISON: 03/09/2025, 4:54 AM IMPRESSION: * Left chest tube has been advanced with tip now located more mediallyand side port at the junction of the pleural space and chest wall. Leftpneumothorax has increased in size with new basilar component and apicalcomponent measuring 1.4 cm. * Bibasilar opacities unchanged, atelectasis versus pneumonia. * Stable ET tube, gastric drainage tube, esophageal probe, and right IJcentral venous catheter. * Small amount of fluid in the right chest wall. Request made to convey findings of study to ordering service on 03/09/2025t 12:00 PM Finalized by Gregory Childers MD on 03/09/2025 11:59 AM us Dariana Guerrero MD IMG DIAGNOSTIC IMAGING ORDERABLE S Final Result * Ionized calcium (03/09/2025 10:41 AM EDT) IONIZED CALCIUM - ICAN 4.6 4.5 - 5.3 mg/dL 03/09/2025 11:27 AM EDT [facility] Blood Venous blood / Unknown 03/09/2025 10:41 AM EDT 03/09/2025 10:55 AM EDT us Venita Chan MD LAB BLOOD ORDERABLES Final Res ult [facility] [address] [place] [address], [place] [phone] * Phosphorus (03/09/2025 10:41 AM EDT) PHOSPHORUS 3.9 2.4 - 4.9 mg/dL 03/09/2025 11:26 AM EDT [facility] Blood Venous blood / Unknown 03/09/2025 10:41 AM EDT 03/09/2025 10:55 AM EDT us Venita Chan MD LAB BLOOD ORDERABLES Final Res ult [facility] [address] [place] [address], [place] [phone] * Magnesium (03/09/2025 10:41 AM EDT) MAGNESIUM 2.4 1.8 - 2.6 mg/dL 03/09/2025 11:26 AM EDT [facility] Blood Venous blood / Unknown 03/09/2025 10:41 AM EDT 03/09/2025 10:55 AM EDT us Venita Chan MD LAB BLOOD ORDERABLES Final Res ult Performing Organization Address City/[facility]/ZIP Co de Phone Number [facility] [address] [place] [address], [place] [phone] * (ABNORMAL) Comprehensive metabolic panel (03/09/2025 10:41 AM EDT) SODIUM 139 134 - 146 mmol/L 03/09/2025 11:26 AM EDT [facility] POTASSIUM 4.9 3.5 - 5.0 mmol/L 03/09/2025 11:26 AM EDT [facility] CHLORIDE 109 98 - 109 mmol/L 03/09/2025 11:26 AM EDT [facility] CARBON DIOXIDE 23 22 - 32 mmol/L 03/09/2025 11:26 AM EDT [facility] ANION GAP 7 5 - 15 mmol/L 03/09/2025 11:26 AM EDT [facility] BLOOD UREA NITROGEN 30(H) 5 - 27 mg/dL 03/09/2025 11:26 AM EDT [facility] CREATININE 1.09(H) 0.40 - 1.00 mg/dL 03/09/2025 11:26 AM EDT [facility] Comment:METHOD TRACEABLE TO IDMS STANDARD GLUCOSE 114(H) 65 - 99 mg/dL 03/09/2025 11:26 AM EDT [facility] CALCIUM 7.8(L) 8.5 - 10.5 mg/dL 03/09/2025 11:26 AM EDT [facility] TOTAL PROTEIN 4.2(L) 6.0 - 8.0 g/dL 03/09/2025 11:26 AM EDT [facility] ALBUMIN 2.5(L) 3.2 - 5.3 g/dL 03/09/2025 11:26 AM EDT [facility] ALKALINE PHOSPHATASE 38(L) 39 - 130 U/L 03/09/2025 11:26 AM EDT [facility] AST 33 <=41 U/L 03/09/2025 11:26 AM EDT [facility] ALT 23 <=31 U/L 03/09/2025 11:26 AM EDT [facility] BILIRUBIN,TOTAL 1.3(H) 0.3 - 1.2 mg/dL 03/09/2025 11:26 AM EDT [facility] EGFR Non-Race Dependent 55(L) >=60 ml/min/1.7 3sq.m 03/09/2025 11:26 AM EDT [facility] Comment: Reported eGFR is based on the CKD-EPI 2020 equation that does not use a race coefficient. Blood Venous blood / Unknown 03/09/2025 10:41 AM EDT 03/09/2025 10:55 AM EDT us Venita Chan MD LAB BLOOD ORDERABLES Final Res ult [facility] [address] [place] [address], [place] [phone] * (ABNORMAL) CBC auto differential (03/09/2025 10:41 AM EDT) WBC 12.3(H) 4 - 11 x10E9/L 03/09/2025 11:36 AM T [facility] RBC Count 4.43 3.8 - 5.2 X10E12/L 03/09/2025 11:36 AM T [facility] Hemoglobin 11.6(L) 11.7 - 15.5 g/dL 03/09/2025 11:36 AM T [facility] Hematocrit 35.4 35 - 47 % 03/09/2025 11:36 AM T [facility] MCV 80 80 - 100 fL 03/09/2025 11:36 AM [facility] MCH 26.2(L) 27 - 34 pg 03/09/2025 11:36 AM [facility] MCHC 32.7 32 - 36 g/dL 03/09/2025 11:36 AM [facility] RDW 23.4(H) 11.5 - 15 % 03/09/2025 11:36 AM [facility] Platelet Count 140(L) 150 - 450 X10E9/L 03/09/2025 11:36 AM [facility] MPV 8.6 7 - 12 fL 03/09/2025 11:36 AM [facility] Bands % 26 % 03/09/2025 11:36 AM [facility] Comment:This is an appended report. These results have been appended to a previously preliminary verified report. Neutrophils % 69 % 03/09/2025 11:36 AM T [facility] Comment:This is an appended report. These results have been appended to a previously preliminary verified report. Lymphocytes % 3 % 03/09/2025 11:36 AM T [facility] Comment:This is an appended report. These results have been appended to a previously preliminary verified report. Monocytes % 2 % 03/09/2025 11:36 AM T [facility] Comment:This is an appended report. These results have been appended to a previously preliminary verified report. Neutrophils Absolute (M) 11.7(H) 1.5 - 6.6 10*3/uL 03/09/2025 11:36 AM EDT [facility] Comment:This is an appended report. These results have been appended to a previously preliminary verified report. Lymphocytes Absolute 0.4(L) 1.0 - 3.5 10*3/uL 03/09/2025 11:36 AM EDT [facility] Comment:This is an appended report. These results have been appended to a previously preliminary verified report. Monocytes Absolute 0.2 0.0 - 0.9 10*3/uL 03/09/2025 11:36 AM EDT [facility] Comment:This is an appended report. These results have been appended to a previously preliminary verified report. Anisocytosis 2+ 03/09/2025 11:36 AM EDT [facility] Comment:This is an appended report. These results have been appended to a previously preliminary verified report. Polychromasia 1+ 03/09/2025 11:36 AM EDT [facility] Comment:This is an appended report. These results have been appended to a previously preliminary verified report. [place] [employer] 1+ 03/09/2025 11:36 AM EDT [facility] Comment:This is an appended report. These results have been appended to a previously preliminary verified report. Differential Type MANUAL DIFFERENTIAL 03/09/2025 11:36 AM EDT [facility] Comment:This is an appended report. These results have been appended to a previously preliminary verified report. Blood Venous blood / Unknown 03/09/2025 10:41 AM EDT 03/09/2025 10:55 AM EDT us Venita Chan MD LAB BLOOD ORDERABLES Final Res ult [facility] [address] [place] [address], [place] [phone] * X-ray abdomen ap 1 view (03/09/2025 9:30 AM EDT) Anatomical Region Laterality Modality Body, Abdomen N/A Computed Radiogr aphy 03/09/2025 9:37 AM EDT Narrative 03/09/2025 9:38 AM EDT Clinical history: Exploratory laparotomy. Instrument count. ABDOMEN: 03/09/2025 IMPRESSION: A portable image of the abdomen was obtained in supine position. No radiopaque foreign body is evident. The enteric tube extends to the left mid abdomen. Finalized by Geremias Howe MD on 03/09/2025 9:38 AM Procedure Note Geremias Howe MD - 03/09/2025 Clinical history: Exploratory laparotomy. Instrument count. ABDOMEN: 03/09/2025 IMPRESSION: A portable image of the abdomen was obtained in supine position. No radiopaque foreign body is evident. The enteric tube extends to the left mid abdomen. 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 03/20/2025 11:25 AM EDT [facility] Gross Description Received in formalin labeled BIBLER, small bowel is a ragged portion of small bowel, 5.2 cm in length and ranging from 1.5 to 2.7 cm in greatest dimension. There is a centrally located strictured area with fibrous adhesions and possible exudate. The specimen is opened to demonstrate a submucosal nodule that is ulcerated at the mucosa, 1.4 x 1.4 x 0.7 cm located 1.5 and 2.4 cm to the resection margins the specimen is serially sectioned to demonstrate a 1.5 x 1.4 x 1.3 cm kevin-wade nodule with gross invasion into the mesentery for a greatest depth of 1 cm. The mass is located 0.8 cm to the mesenteric margin. The remainder of the mesentery is serially sectioned to demonstrate a 0.5 x 0.3 cm tumor deposit located 0.7 cm from the main mass. There are no lymph nodes identified. Marketing Financial [employer]st sections are submitted in cassettes A-I , as: A resection margins B mass to closest mesenteric margin C mass with greatest depth of invasion D mass abutting serosa. E entire tumor deposit F-I entire mesentery (9, ss, [id number], m8.1) MW 03/20/2025 11:25 AM EDT [facility] Embedded Images 03/20/2025 11:25 AM EDT [facility] Tissue Structure of small intestine / Unknown 03/09/2025 9:15 AM EDT 03/10/2025 7:35 AM EDT Comment:Pre-op diagnosis: OPEN ABDOMEN us Ghassan Castillo MD PATHOLOGY/CYTOLOGY ORDERABLES F inal Result [facility] [address] [place] [address], [place] [phone] * Potassium (03/09/2025 6:01 AM EDT) POTASSIUM 4.9 3.5 - 5.0 mmol/L 03/09/2025 6:53 AM EDT [facility] Blood Venous blood / Unknown 03/09/2025 6:01 AM EDT 03/09/2025 6:13 AM EDT us Aminta EUCEDA LAB BLOOD ORDERABLES Final Result [facility] [address] [place] [address], [place] [phone] * (ABNORMAL) Blood Gas, Arterial (03/09/2025 5:05 AM EDT) Sample type ARTERIAL 03/09/2025 5:[address] [facility] pH, Arterial 7.362 7.350 - 7.450 03/09/2025 5:[address] [facility] pCO2, Arterial 39.3 35.0 - 45.0 mmHg 03/09/2025 5:[address] [facility] PO2, Arterial 97 80 - 100 mmHg 03/09/2025 5:[address] [facility] Base, Deficit -3.0(L) 0.0 - 2.0 mmol/L 03/09/2025 5:[address] [facility] HCO3, Arterial 22.3 22.0 - 26.0 mmol/L 03/09/2025 5:[address] [facility] %O2 Saturation, Arterial 97.0 >90.0 % 03/09/2025 5:[address] [facility] Irwin's test N/A 03/09/2025 5:[address] [facility] SPO2 97 % 03/09/2025 5:[address] [facility] Sample site A Line 03/09/2025 5:[address] [facility] Insp. O2 conc. 40 % 03/09/2025 5:[address] [facility] Source Of Oxygen Vent 03/09/2025 5:[address] [facility] arterial (Blood, Arterial) 03/09/2025 5:05 AM EDT 03/09/2025 5:17 AM EDT us Ghassan Castillo MD LAB BLOOD ORDERABLES Final Resu lt [facility] [address] [place] [address], [place] * X-ray chest 1 view (03/09/2025 5:00 AM EDT) Anatomical Region Laterality Modality Body, Chest N/A Computed Radiogr aphy 03/09/2025 5:21 AM EDT Narrative 03/09/2025 5:24 AM EDT Clinical history: Chest tube. Comparisons: 03/06/2025 through 03/08/2025. Findings: AP portable semiupright chest radiograph obtained. Endotracheal tube terminates 5.2 cm above the level of the venecia. PH probe tip terminates in mid to distal third of the esophagus. Nasogastric tube terminates within stomach and left upper abdomen off the radiograph. Left-sided chest tube with good see with an extrapleural sidehole within the soft tissues of the left lateral chest. Subcutaneous emphysema has decreased bilaterally. A right IJ central venous catheter unchanged with tip in SVC. Improvement in prominently central left-sided airspace disease. Mild right basilar atelectasis persists. There is a 1 cm left apical pneumothorax. Costophrenic angles appear sharp. IMPRESSION: 1. There is a 1 cm left apical pneumothorax. Sidehole of the left-sided chest tube is outside of the pleural space in the left lateral chest wall. 2. Improved aeration of the left lung. Finalized by Arsalan Lott MD on 03/09/2025 5:24 AM Procedure Note Arsalan Lott MD - 03/09/2025 Clinical history: Chest tube. Comparisons: 03/06/2025 through 03/08/2025. Findings: AP portable semiupright chest radiograph obtained. Endotrachealtube terminates 5.2 cm above the level of the venecia. PH probe tipterminates in mid to distal third of the esophagus. Nasogastric tubeterminates within stomach and left upper abdomen off the radiograph.Left-sided chest tube with good see with an extrapleural sidehole within the soft tissues ofthe left lateral chest. Subcutaneous emphysema has decreased bilaterally.A right IJ central venous catheter unchanged with tip in SVC. Improvementin prominently central left-sided airspace disease. Mild right basilar atelectasis persists. There is a 1 cm left apical pneumothorax.Costophrenic angles appear sharp. IMPRESSION: 1. There is a 1 cm left apical pneumothorax. Sidehole of the left-sidedchest tube is outside of the pleural space in the left lateral chestwall. 2. Improved aeration of the left lung. Finalized by Arsalan Lott MD on 03/09/2025 5:24 AM us Sarath Hoover MD IMG DIAGNOSTIC IMAGING ORDERABLE S Final Result * (ABNORMAL) CBC auto differential (03/09/2025 3:32 AM EDT) WBC 15.5(H) 4 - 11 x10E9/L 03/09/2025 4:58 AM EDT [facility] RBC Count 4.87 3.8 - 5.2 X10E12/L 03/09/2025 4:58 AM EDT [facility] Hemoglobin 12.7 11.7 - 15.5 g/dL 03/09/2025 4:58 AM EDT [facility] Hematocrit 39.3 35 - 47 % 03/09/2025 4:58 AM EDT [facility] MCV 81 80 - 100 fL 03/09/2025 4:58 AM EDT [facility] MCH 26.2(L) 27 - 34 pg 03/09/2025 4:58 AM EDT [facility] MCHC 32.4 32 - 36 g/dL 03/09/2025 4:58 AM EDT [facility] RDW 22.5(H) 11.5 - 15 % 03/09/2025 4:58 AM EDT [facility] Platelet Count 155 150 - 450 X10E9/L 03/09/2025 4:58 AM EDT [facility] MPV 8.1 7 - 12 fL 03/09/2025 4:58 AM EDT [facility] Bands % 14 % 03/09/2025 4:58 AM [facility] Comment:This is an appended report. These results have been appended to a previously preliminary verified report. Neutrophils % 84 % 03/09/2025 4:58 AM [facility] Comment:This is an appended report. These results have been appended to a previously preliminary verified report. Lymphocytes % 1 % 03/09/2025 4:58 AM [facility] Comment:This is an appended report. These results have been appended to a previously preliminary verified report. Monocytes % 1 % 03/09/2025 4:58 AM [facility] Comment:This is an appended report. These results have been appended to a previously preliminary verified report. Eosinophils % 0 % 03/09/2025 4:58 AM [facility] Comment:This is an appended report. These results have been appended to a previously preliminary verified report. Basophils % 0 % 03/09/2025 4:58 AM [facility] Comment:This is an appended report. These results have been appended to a previously preliminary verified report. nRBC 4 03/09/2025 4:58 AM [facility] Comment:This is an appended report. These results have been appended to a previously preliminary verified report. Neutrophils Absolute (M) 15.3(H) 1.5 - 6.6 10*3/uL 03/09/2025 4:58 AM [facility] Comment:This is an appended report. These results have been appended to a previously preliminary verified report. Lymphocytes Absolute 0.1(L) 1.0 - 3.5 10*3/uL 03/09/2025 4:58 AM [facility] Comment:This is an appended report. These results have been appended to a previously preliminary verified report. Monocytes Absolute 0.2 0.0 - 0.9 10*3/uL 03/09/2025 4:58 AM [facility] Comment:This is an appended report. These results have been appended to a previously preliminary verified report. Eosinophils Absolute 0.0 0.0 - 0.4 10*3/uL 03/09/2025 4:58 AM EDT [facility] Comment:This is an appended report. These results have been appended to a previously preliminary verified report. Basophils Absolute 0.0 0.0 - 0.2 10*3/uL 03/09/2025 4:58 AM EDT [facility] Comment:This is an appended report. These results have been appended to a previously preliminary verified report. Anisocytosis 2+ 03/09/2025 4:58 AM EDT [facility] Comment:This is an appended report. These results have been appended to a previously preliminary verified report. Polychromasia 1+ 03/09/2025 4:58 AM EDT [facility] Comment:This is an appended report. These results have been appended to a previously preliminary verified report. Elliptocytes 1+ 03/09/2025 4:58 AM EDT [facility] Comment:This is an appended report. These results have been appended to a previously preliminary verified report. Differential Type MANUAL DIFFERENTIAL 03/09/2025 4:58 AM EDT [facility] Comment:This is an appended report. These results have been appended to a previously preliminary verified report. Blood Venous blood / Unknown 03/09/2025 3:32 AM EDT 03/09/2025 3:40 AM EDT us Kristan Alfaro MD LAB BLOOD ORDERABLES Final Resul t [facility] [address] [place] [address], * (ABNORMAL) Bedside Glucose *Place/Obtain serum glucose if >500 per glucometer. (03/09/2025 3:31 AM EDT) Bedside Glucose (POC) 109(H) 65 - 99 mg/dL 03/09/2025 3:40 AM EDT [facility] arterial/capilla ry 03/09/2025 3:31 AM EDT 03/09/2025 3:40 AM EDT us Ghassan Castillo MD POINT OF CARE TEST ORDERABLES F inal Result Performing Organization Address City/[facility]/ZIP Co de Phone Number [facility] [address] [place] [address], [place] * Phosphorus (03/09/2025 3:25 AM EDT) PHOSPHORUS 3.8 2.4 - 4.9 mg/dL 03/09/2025 4:08 AM EDT [facility] Blood Venous blood / Unknown 03/09/2025 3:25 AM EDT 03/09/2025 3:40 AM EDT us Дмитрий Lara MD LAB BLOOD ORDERABLES Final Resul t Performing Organization Address [facility] Co de Phone Number [facility] [address] [place] [address], * (ABNORMAL) Protime & INR (03/09/2025 3:25 AM EDT) PROTIME 19.0(H) 9.8 - 13.2 sec 03/09/2025 4:07 AM EDT [facility] INR 1.7(H) 0.9 - 1.2 03/09/2025 4:07 AM EDT [facility] Blood Venous blood / Unknown 03/09/2025 3:25 AM EDT 03/09/2025 3:40 AM EDT us Eleni Harding STUDENT TRUCK [employer]IVER-[employer]ANT [employer] LAB BLOOD ORDERABLES Fi nal Result Performing Organization Address City/[facility]/ZIP Co de Phone Number [facility] [address] [place] [address], [place] [phone] * (ABNORMAL) Basic Metabolic Panel (03/09/2025 3:25 AM EDT) SODIUM 140 134 - 146 mmol/L 03/09/2025 4:08 AM EDT [facility] POTASSIUM 5.0 3.5 - 5.0 mmol/L 03/09/2025 4:08 AM EDT [facility] CHLORIDE 109 98 - 109 mmol/L 03/09/2025 4:08 AM EDT [facility] CARBON DIOXIDE 25 22 - 32 mmol/L 03/09/2025 4:08 AM EDT [facility] ANION GAP 6 5 - 15 mmol/L 03/09/2025 4:08 AM EDT [facility] BLOOD UREA NITROGEN 30(H) 5 - 27 mg/dL 03/09/2025 4:08 AM EDT [facility] CREATININE 1.25(H) 0.40 - 1.00 mg/dL 03/09/2025 4:08 AM EDT [facility] Comment:METHOD TRACEABLE TO IDMS STANDARD GLUCOSE 108(H) 65 - 99 mg/dL 03/09/2025 4:08 AM EDT [facility] CALCIUM 8.1(L) 8.5 - 10.5 mg/dL 03/09/2025 4:08 AM EDT [facility] EGFR Non-Race Dependent 47(L) >=60 ml/min/1.7 3sq.m 03/09/2025 4:08 AM EDT [facility] Comment: Reported eGFR is based on the CKD-EPI 2020 equation that does not use a race coefficient. Blood Venous blood / Unknown 03/09/2025 3:25 AM EDT 03/09/2025 3:40 AM EDT us 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 [place] [address], * Magnesium (03/09/2025 3:25 AM EDT) MAGNESIUM 1.9 1.8 - 2.6 mg/dL 03/09/2025 4:08 AM EDT [facility] Blood Venous blood / Unknown 03/09/2025 3:25 AM EDT 03/09/2025 3:40 AM EDT us 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 [place] [address], * (ABNORMAL) Bedside Glucose *Place/Obtain serum glucose if >500 per glucometer. (03/08/2025 11:51PM EDT) Bedside Glucose (POC) 110(H) 65 - 99 mg/dL 03/08/2025 11:[address] [facility] arterial/capilla ry 03/08/2025 11:51 PM EDT 03/08/2025 11:52 PM EDT us Ghassan Castillo MD POINT OF CARE TEST ORDERABLES F inal Result [facility] [address] [place] [address], [place] * Lactate w/ Reflex (03/08/2025 11:48 PM EDT) LACTATE W/REFLEX 1.9 0.4 - 2.0 mmol/L 03/09/2025 12:27 AM EDT [facility] Blood Venous blood / Unknown 03/08/2025 11:48 PM EDT 03/09/2025 12:02 AM EDT Narrative [facility] - 03/09/2025 12:27 AM EDT Result did not trigger repeat Lactate, re-order if needed. us Aminta EUCEDA LAB BLOOD ORDERABLES Final Result [facility] [address] [place] [address], * Potassium (03/08/2025 11:48 PM EDT) POTASSIUM 4.7 3.5 - 5.0 mmol/L 03/09/2025 12:33 AM EDT [facility] Blood Venous blood / Unknown 03/08/2025 11:48 PM EDT 03/09/2025 12:02 AM EDT Aminta EUCEDA LAB BLOOD ORDERABLES Final Result [facility] [address] [place] [address], [place] [phone] * Lactate (03/08/2025 9:51 PM EDT) LACTATE 1.9 0.4 - 2.0 mmol/L 03/08/2025 10:32 PM EDT [facility] Blood Venous blood / Unknown 03/08/2025 9:51 PM EDT 03/08/2025 10:02 PM EDT Aminta EUCEDA LAB BLOOD ORDERABLES Final Result [facility] [address] [place] [address], [place] [phone] * (ABNORMAL) APTT (03/08/2025 9:51 PM EDT) APTT 136(HH) 26 - 37 sec 03/08/2025 10:37 PM EDT [facility] Blood Venous blood / Unknown 03/08/2025 9:51 PM EDT 03/08/2025 10:02 PM EDT Ashok Hwang DO LAB BLOOD ORDERABLES Final Resul t [facility] [address] [place] [address], [place] [phone] * Hemoglobin and hematocrit, blood (03/08/2025 9:51 PM EDT) Hemoglobin 12.7 11.7 - 15.5 g/dL 03/08/2025 10:22 PM EDT [facility] Hematocrit 39.2 35 - 47 % 03/08/2025 10:22 PM EDT [facility] Blood Venous blood / Unknown 03/08/2025 9:51 PM EDT 03/08/2025 10:02 PM EDT Aminta EUCEDA LAB BLOOD ORDERABLES Final Result [facility] [address] [place] [address], * (ABNORMAL) Bedside Glucose *Place/Obtain serum glucose if >500 per glucometer. (03/08/2025 7:25 PM EDT) Pathologist [facility] Bedside Glucose (POC) 112(H) 65 - 99 mg/dL 03/08/2025 7:[address] [facility] arterial/capilla ry 03/08/2025 7:25 PM EDT 03/08/2025 7:26 PM EDT Ghassan Castillo MD POINT OF CARE TEST ORDERABLES F inal Result [facility] [address] [place] [address], [place] * (ABNORMAL) Blood Gas, Arterial (03/08/2025 5:43 PM EDT) Pathologist [facility] Sample type ARTERIAL 03/08/2025 5:[address] [facility] pH, Arterial 7.354 7.350 - 7.450 03/08/2025 5:[address] [facility] pCO2, Arterial 40.2 35.0 - 45.0 mmHg 03/08/2025 5:[address] [facility] PO2, Arterial 89 80 - 100 mmHg 03/08/2025 5:[address] [facility] Base, Deficit -3.0(L) 0.0 - 2.0 mmol/L 03/08/2025 5:[address] [facility] HCO3, Arterial 22.4 22.0 - 26.0 mmol/L 03/08/2025 5:[address] [facility] %O2 Saturation, Arterial 96.0 >90.0 % 03/08/2025 5:[address] [facility] Irwin's test N/A 03/08/2025 5:[address] [facility] SPO2 96 % 03/08/2025 5:[address] [facility] Sample site A Line 03/08/2025 5:[address] [facility] Insp. O2 conc. 40 % 03/08/2025 5:[address] [facility] Source Of Oxygen Vent 03/08/2025 5:[address] [facility] arterial (Blood, Arterial) 03/08/2025 5:43 PM EDT 03/08/2025 5:46 PM EDT us Ghassan Castillo MD LAB BLOOD ORDERABLES Final Resu lt [facility] [address] [place] [address], * Anti XA unfractionated heparin (03/08/2025 5:10 PM EDT) ANTI XA UFH 0.60 0.30 - 0.70 IU/mL 03/08/2025 5:51 PM EDT [facility] Comment: Optimal time for testing is 6 hrs post dosage This test is specific for monitoring patients on UFH, and is not recommended for use with other Anti-Xa medications. Blood Venous blood / Unknown 03/08/2025 5:10 PM EDT 03/08/2025 5:23 PM EDT us Ghassan Castillo MD LAB BLOOD ORDERABLES Final Resu lt [facility] [address] [place] [address], [place] [phone] * (ABNORMAL) Protime & INR (03/08/2025 5:10 PM EDT) PROTIME 17.9(H) 9.8 - 13.2 sec 03/08/2025 5:51 PM EDT [facility] INR 1.6(H) 0.9 - 1.2 03/08/2025 5:51 PM EDT [facility] Blood Venous blood / Unknown 03/08/2025 5:10 PM EDT 03/08/2025 5:23 PM EDT [facility] LAB BLOOD ORDERABLES Final Resul t [facility] [address] [place] [address], [place] [phone] * (ABNORMAL) APTT (03/08/2025 5:10 PM EDT) APTT 41(H) 26 - 37 sec 03/08/2025 5:51 PM EDT [facility] Blood Venous blood / Unknown 03/08/2025 5:10 PM EDT 03/08/2025 5:23 PM EDT [facility] LAB BLOOD ORDERABLES Final Resul t [facility] [address] [place] [address], [place] [phone] * (ABNORMAL) Lactate w/ Reflex (03/08/2025 5:10 PM EDT) LACTATE W/REFLEX 2.8(H) 0.4 - 2.0 mmol/L 03/08/2025 6:12 PM EDT [facility] Blood Venous blood / Unknown 03/08/2025 5:10 PM EDT 03/08/2025 5:24 PM EDT Aminta EUCEDA LAB BLOOD ORDERABLES Final Result [facility] [address] [place] [address], [place] [phone] * Potassium (03/08/2025 5:10 PM EDT) POTASSIUM 4.4 3.5 - 5.0 mmol/L 03/08/2025 5:56 PM EDT [facility] Blood Venous blood / Unknown 03/08/2025 5:10 PM EDT 03/08/2025 5:23 PM EDT Amintasa Kimi EUCEDA LAB BLOOD ORDERABLES Final Result Performing Organization Address [facility]/ZIP Co de Phone Number [facility] [address] [place] [address], [place] [phone] * (ABNORMAL) Bedside Glucose *Place/Obtain serum glucose if >500 per glucometer. (03/08/2025 5:09 PM EDT) Bedside Glucose (POC) 108(H) 65 - 99 mg/dL 03/08/2025 5:14 PM EDT [facility] arterial/capilla ry 03/08/2025 5:09 PM EDT 03/08/2025 5:14 PM EDT us Ghassan Castillo MD POINT OF CARE TEST ORDERABLES F inal Result Performing Organization Address City/[facility]/ZIP Co de Phone Number [facility] [address] [place] [address], [place] * (ABNORMAL) Bedside Glucose *Place/Obtain serum glucose if >500 per glucometer. (03/08/2025 3:06 PM EDT) Bedside Glucose (POC) 108(H) 65 - 99 mg/dL 03/08/2025 3:[address] [facility] arterial/capilla ry 03/08/2025 3:06 PM EDT 03/08/2025 3:11 PM EDT Ghassan Castillo MD POINT OF CARE TEST ORDERABLES F inal Result Performing Organization Address [facility]/ZIP Co de Phone Number [facility] [address] [facility] [place] [address], [place] * (ABNORMAL) Bedside Glucose *Place/Obtain serum glucose if >500 per glucometer. (03/08/2025 2:08 PM EDT) Bedside Glucose (POC) 107(H) 65 - 99 mg/dL 03/08/2025 2:[address] [facility] arterial/capilla ry 03/08/2025 2:08 PM EDT 03/08/2025 2:13 PM EDT Ghassan Castillo MD POINT OF CARE TEST ORDERABLES F inal Result Performing Organization Address [facility] Co de Phone Number [facility] [address] [place] [address], [place] * Platelet count (03/08/2025 1:02 PM EDT) Platelet Count 187 150 - 450 [id number]/L 03/08/2025 3:53 PM EDT [facility] MPV 8.1 7 - 12 fL 03/08/2025 3:53 PM EDT [facility] Blood Venous blood / Unknown 03/08/2025 1:02 PM EDT 03/08/2025 1:14 PM EDT Ashok Hwang DO LAB BLOOD ORDERABLES Final Resul t Performing Organization Address City/[facility]/ZIP Co de Phone Number [facility] [address] [place] [address], [place] [phone] * Hemoglobin and hematocrit, blood (03/08/2025 1:02 PM EDT) Hemoglobin 12.9 11.7 - 15.5 g/dL 03/08/2025 1:25 PM EDT [facility] Hematocrit 38.5 35 - 47 % 03/08/2025 1:25 PM EDT [facility] Blood Venous blood / Unknown 03/08/2025 1:02 PM EDT 03/08/2025 1:14 PM EDT Aminta EUCEDA LAB BLOOD ORDERABLES Final Result [facility] [address] [place] [address], [place] [phone] * (ABNORMAL) Bedside Glucose *Place/Obtain serum glucose if >500 per glucometer. (03/08/2025 12:57PM EDT) Bedside Glucose (POC) 140(H) 65 - 99 mg/dL 03/08/2025 1:[address] [facility] arterial/capilla ry 03/08/2025 12:57 PM EDT 03/08/2025 1:03 PM EDT Ghassan Castillo MD POINT OF CARE TEST ORDERABLES F inal Result [facility] [address] [place] [address], [place] * (ABNORMAL) Bedside Glucose *Place/Obtain serum glucose if >500 per glucometer. (03/08/2025 12:08PM EDT) Bedside Glucose (POC) 165(H) 65 - 99 mg/dL 03/08/2025 12:[address] [facility] arterial/capilla ry 03/08/2025 12:08 PM EDT 03/08/2025 12:13 PM EDT Ghassan Castillo MD POINT OF CARE TEST ORDERABLES F inal Result [facility] [address] [place] [address], [place] * Potassium (03/08/2025 11:13 AM EDT) POTASSIUM 3.7 3.5 - 5.0 mmol/L 03/08/2025 12:00 PM EDT [facility] Blood Venous blood / Unknown 03/08/2025 11:13 AM EDT 03/08/2025 11:27 AM EDT Aminta EUCEDA LAB BLOOD ORDERABLES Final Result Performing Organization Address City/[facility]/ZIP Co de Phone Number [facility] [address] [place] [address], [place] [phone] * (ABNORMAL) Lactate w/ Reflex (03/08/2025 11:13 AM EDT) LACTATE W/REFLEX 5.4(HH) 0.4 - 2.0 mmol/L 03/08/2025 12:38 PM EDT [facility] Blood Venous blood / Unknown 03/08/2025 11:13 AM EDT 03/08/2025 11:26 AM EDT Aminta EUCEDA LAB BLOOD ORDERABLES Final Result [facility] [address] [place] [address], [place] [phone] * (ABNORMAL) Bedside Glucose *Place/Obtain serum glucose if >500 per glucometer. (03/08/2025 11:09AM EDT) Bedside Glucose (POC) 194(H) 65 - 99 mg/dL 03/08/2025 11:[address] [facility] arterial/capilla ry 03/08/2025 11:09 AM EDT 03/08/2025 11:14 AM EDT us Ghassan Castillo MD POINT OF CARE TEST ORDERABLES F inal Result [facility] [address] [place] [address], [place] * Echo limited W/ contrast (03/08/2025 11:02 AM EDT) Anatomical Region Laterality Modality Chest N/A Ultrasound Narrative 03/08/2025 12:20 PM EDT Left Ventricle: Systolic function is normal with an ejection fraction of 55-60%. Tricuspid Valve: There is trace to mild regurgitation. There is no evidence of tricuspid valve stenosis. Left Ventricle Left ventricle was not well visualized. Systolic function is normal with an ejection fraction of 55-60%. No segmental wall motion abnormalities. Right Ventricle Visually right ventricle appears atleast mildly dilated. Left Atrium Left atrium was not well visualized. IVC/SVC The patient is mechanically ventilated or intubated. IVC appears dilated with increased right atrial pressure. Mitral Valve The mitral valve was not well visualized. Tricuspid Valve Tricuspid valve appears to be normal. There is trace to mild regurgitation. There is no evidence of tricuspid valve stenosis. Aortic Valve The aortic valve was not well visualized. Pulmonic Valve The pulmonic valve was not well visualized. Ascending Aorta The aorta was not well visualized. Pericardium There is no pericardial effusion. Study Details A limited echo was performed using limited 2D. Definity study was performed. The study had technical difficulties. The study was difficult due to patient's poor acoustic windows. Patient post-op with left chest tube and post code. Very limited visualization. us Дмитрий Lara MD CV ECHO ORDERABLES Final Result * X-ray chest 1 view (03/08/2025 10:41 AM EDT) Anatomical Region Laterality Modality Body, Chest N/A Computed Radiogr aphy 03/08/2025 11:0 5 AM EDT Narrative 03/08/2025 11:07 AM EDT CHEST 1 VIEW HISTORY: Readjustment of chest tube COMPARISON: 03/08/2025, 1:24 AM IMPRESSION: * Left chest tube has been pulled back, with tip remaining in the hemithorax however side port outside of the pleural space in the chest wall. * Interval decrease in soft tissue air in the chest wall and lower neck. Small left apical pneumothorax measuring 0.3 cm. * Airspace disease within the left lung is slightly improved. * Stable ET tube, esophageal probe, gastric drainage tube, and right IJ central venous catheter. Finalized by Gregory Childers MD on 03/08/2025 11:07 AM Procedure Note Gregory Childers MD - 03/08/2025 CHEST 1 VIEW HISTORY: Readjustment of chest tube COMPARISON: 03/08/2025, 1:24 AM IMPRESSION: * Left chest tube has been pulled back, with tip remaining in thehemithorax however side port outside of the pleural space in the chestwall. * Interval decrease in soft tissue air in the chest wall and lower neck.Small left apical pneumothorax measuring 0.3 cm. * Airspace disease within the left lung is slightly improved. * Stable ET tube, esophageal probe, gastric drainage tube, and right IJcentral venous catheter. Finalized by Gregory Childers MD on 03/08/2025 11:07 AM us Aminta EUCEDA IMG DIAGNOSTIC IMAGING ORDMary HIRSCH Final Result * (ABNORMAL) Bedside Glucose *Place/Obtain serum glucose if >500 per glucometer. (03/08/2025 10:13AM EDT) Bedside Glucose (POC) 222(H) 65 - 99 mg/dL 03/08/2025 10:[address] [facility] arterial/capilla ry 03/08/2025 10:13 AM EDT 03/08/2025 10:18 AM EDT us Ghassan Castillo MD POINT OF CARE TEST ORDERABLES F inal Result [facility] [address] [place] [address], [place] * (ABNORMAL) Blood Gas, Arterial (03/08/2025 9:29 AM EDT) Sample type ARTERIAL 03/08/2025 9:[address] [facility] pH, Arterial 7.322(L) 7.350 - 7.450 03/08/2025 9:[address] [facility] pCO2, Arterial 38.7 35.0 - 45.0 mmHg 03/08/2025 9:[address] [facility] PO2, Arterial 104(H) 80 - 100 mmHg 03/08/2025 9:[address] [facility] Base, Deficit -6.0(L) 0.0 - 2.0 mmol/L 03/08/2025 9:[address] [facility] HCO3, Arterial 20.0(L) 22.0 - 26.0 mmol/L 03/08/2025 9:[address] [facility] %O2 Saturation, Arterial 97.0 >90.0 % 03/08/2025 9:[address] [facility] Irwin's test N/A 03/08/2025 9:33 AM [facility] SPO2 96 % 03/08/2025 9:33 AM [facility] Sample site A Line 03/08/2025 9:[address] [facility] Insp. O2 conc. 60 % 03/08/2025 9:[address] [facility] Source Of Oxygen Vent 03/08/2025 9:[address] [facility] arterial (Blood, Arterial) 03/08/2025 9:29 AM EDT 03/08/2025 9:33 AM EDT us Ghassan Castillo MD LAB BLOOD ORDERABLES Final Resu lt [facility] [address] [place] [address], [place] * FFP setup:Number of Units: 3 (03/08/2025 9:00 AM EDT) Pathologist [facility] Blood component type [id number] BLOOD BANK - [place] Unit number [id number] BL OOD BANK - RERE Unit ABO A BLOOD BANK - [place] Unit RH NEG BLOOD BANK - RERE Status of unit TRANSFUSED BLOO D BANK - RERE Expiration Date [id number] BLOOD BANK - [place] BB Type Barcode 0600 BLOOD BANK - RERE Blood component type [id number] BLOOD BANK - [place] Unit number [id number] BL OOD BANK - [place] Unit ABO A BLOOD BANK - [place] Unit RH NEG BLOOD BANK - [place] Status of unit TRANSFUSED BLOO D BANK - RERE Expiration Date [id number] BLOOD BANK - [place] BB Type Barcode 0600 BLOOD BANK - RERE Blood component type [id number] BLOOD BANK - RERE Unit number [id number] BL OOD BANK - [place] Unit ABO A BLOOD BANK - [place] Unit RH POS BLOOD BANK - RERE Status of unit TRANSFUSED BLOO D BANK - RERE Expiration Date [id number] BLOOD BANK - RERE BB Type Barcode 6200 BLOOD BANK - RERE Blood Venous blood / Unknown 03/08/2025 9:00 AM EDT Ernie Elizondo APRN-DUYEN BLOOD BANK PRODUCT ORDERA BLES Edited Result - Final BLOOD BANK Elian JERNIGAN * (ABNORMAL) Bedside Glucose *Place/Obtain serum glucose if >500 per glucometer. (03/08/2025 8:32 AM EDT) [facility] Bedside Glucose (POC) 287(H) 65 - 99 mg/dL 03/08/2025 8:[address] [facility] arterial/capilla ry 03/08/2025 8:32 AM EDT 03/08/2025 8:38 AM EDT Ghassan Castillo MD POINT OF CARE TEST ORDERABLES F inal Result 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 All CT scans at this facility use dose modulation, iterative reconstruction, and/or weight based dosing when appropriate to reduce radiation dose to as low as reasonably achievable. COMPARISON: 02/25/2025, chest radiograph 03/08/2025 FINDINGS: Left chest tube tip posterior to the descending aorta. Moderate left pneumothorax, significant subcutaneous emphysema. Mild dependent edema and consolidation left lung. No endobronchial filling defects. Previously identified pulmonary nodules was obscured. ET tube 3 cm above the venecia, NG tube mid stomach, pH probe in esophagus. Previously identified moderate right-sided pulmonary emboli slightly decreased in size. No new emboli. Minimal right base atelectasis. No acute fractures. IMPRESSION: Slightly decreased burden of right sided pulmonary emboli. No new emboli. Left chest tube, moderate left pneumothorax, significant subcutaneous emphysema, mild dependent edema and consolidation left lung. 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 All CTscans at this facility use dose modulation, iterative reconstruction,and/or weight based dosing when appropriate to reduce radiation dose to aslow as reasonably achievable. COMPARISON: 02/25/2025, chest radiograph 03/08/2025 FINDINGS: Left chest tube tip posterior to the descending aorta. Moderate leftpneumothorax, significant subcutaneous emphysema. Mild dependent edema andconsolidation left lung. No endobronchial filling defects. Previously identified pulmonary nodules was obscured. ET tube 3 cm abovethe venecia, NG tube mid stomach, pH probe in esophagus. Previouslyidentified moderate right- sided pulmonary emboli slightly decreased insize. No new emboli. Minimal right base atelectasis. No acute fractures. IMPRESSION: Slightly decreased burden of right sided pulmonary emboli. No newemboli. Left chest tube, moderate left pneumothorax, significant subcutaneousemphysema, mild dependent edema and consolidation left lung. Finalized by Jcarlos Rosenbaum MD on 03/08/2025 8:46 AM us Abby Palmer MD IMG CT ORDERABLES Final Res ult * CT brain without contrast (03/08/2025 8:17 AM EDT) Anatomical Region Laterality Modality Neuro, Head, Head and Neck, Neuro [place] N/A Computed Tomography 03/08/2025 8:19 AM EDT Narrative 03/08/2025 8:[address] HEAD WITHOUT CONTRAST HISTORY: Respiratory arrest COMPARISON: None. TECHNIQUE: Routine noncontrast CT head. All CT scans at this facility use dose modulation, iterative reconstruction, and/or weight based dosing when appropriate to reduce radiation dose to as low as reasonably achievable. FINDINGS: Extensive soft tissue emphysema. No skull fractures. Small amount of fluid in the maxillary sinuses. Paranasal sinuses and temporal bone structures are otherwise clear. No acute intra-axial or extra-axial fluid collection/hemorrhage. No mass or mass effect. Kevin-white matter differentiation preserved. IMPRESSION: No acute intracranial process. Finalized by Gregory Childers MD on 03/08/2025 8:22 AM Procedure Note Gregory Childers MD - 03/08/2025 CT HEAD WITHOUT CONTRAST HISTORY: Respiratory arrest COMPARISON: None. TECHNIQUE: Routine noncontrast CT head. All CT scans at this facility usedose modulation, iterative reconstruction, and/or weight based dosing whenappropriate to reduce radiation dose to as low as reasonably achievable. FINDINGS: Extensive soft tissue emphysema. No skull fractures. Small amount of fluidin the maxillary sinuses. Paranasal sinuses and temporal bone structuresare otherwise clear. No acute intra-axial or extra-axial fluidcollection/hemorrhage. No mass or mass effect. Kevin-white matterdifferentiation preserved. IMPRESSION: No acute intracranial process. Finalized by Gregory Childers MD on 03/08/2025 8:22 AM us Abby Palmer MD IMG CT ORDERABLES Final Res ult * (ABNORMAL) Blood Gas, Arterial (03/08/2025 6:05 AM EDT) Sample type ARTERIAL 03/08/2025 6:07 AM [facility] pH, Arterial 7.376 7.350 - 7.450 03/08/2025 6:07 AM [facility] pCO2, Arterial 31.3(L) 35.0 - 45.0 mmHg 03/08/2025 6:07 AM [facility] PO2, Arterial 70(L) 80 - 100 mmHg 03/08/2025 6:07 AM [facility] Base, Deficit -6.0(L) 0.0 - 2.0 mmol/L 03/08/2025 6:07 AM [facility] HCO3, Arterial 18.3(L) 22.0 - 26.0 mmol/L 03/08/2025 6:07 AM [facility] %O2 Saturation, Arterial 94.0 >90.0 % 03/08/2025 6:07 AM [facility] Irwin's test N/A 03/08/2025 6:07 AM [facility] SPO2 96 % 03/08/2025 6:07 AM [facility] Sample site A Line 03/08/2025 6:07 AM [facility] Insp. O2 conc. 70 % 03/08/2025 6:07 AM [facility] Source Of Oxygen Vent 03/08/2025 6:07 AM [facility] arterial (Blood, Arterial) 03/08/2025 6:05 AM EDT 03/08/2025 6:07 AM EDT us Ghassan Castillo MD LAB BLOOD ORDERABLES Final Resu lt [facility] [address] [place] [address], [place] * (ABNORMAL) Lactate (03/08/2025 4:55 AM EDT) LACTATE 7.6(HH) 0.4 - 2.0 mmol/L 03/08/2025 5:58 AM EDT [facility] Blood Venous blood / Unknown 03/08/2025 4:55 AM EDT 03/08/2025 5:09 AM EDT us Дмитрий Lara MD LAB BLOOD ORDERABLES Final Resul t [facility] [address] [place] [address], [place] [phone] * (ABNORMAL) Basic Metabolic Panel (03/08/2025 4:55 AM EDT) SODIUM 138 134 - 146 mmol/L 03/08/2025 5:44 AM EDT [facility] POTASSIUM 4.2 3.5 - 5.0 mmol/L 03/08/2025 5:44 AM EDT [facility] CHLORIDE 106 98 - 109 mmol/L 03/08/2025 5:44 AM EDT [facility] CARBON DIOXIDE 21(L) 22 - 32 mmol/L 03/08/2025 5:44 AM EDT [facility] ANION GAP 11 5 - 15 mmol/L 03/08/2025 5:44 AM EDT [facility] BLOOD UREA NITROGEN 28(H) 5 - 27 mg/dL 03/08/2025 5:44 AM EDT [facility] CREATININE 1.07(H) 0.40 - 1.00 mg/dL 03/08/2025 5:44 AM EDT [facility] Comment:METHOD TRACEABLE TO IDMS STANDARD GLUCOSE 298(H) 65 - 99 mg/dL 03/08/2025 5:44 AM EDT [facility] CALCIUM 8.4(L) 8.5 - 10.5 mg/dL 03/08/2025 5:44 AM EDT [facility] EGFR Non-Race Dependent 57(L) >=60 ml/min/1.7 3sq.m 03/08/2025 5:44 AM EDT [facility] Comment: Reported eGFR is based on the CKD-EPI 2020 equation that does not use a race coefficient. Blood Venous blood / Unknown 03/08/2025 4:55 AM EDT 03/08/2025 5:09 AM EDT Neelima Ta STUDENT TRUCK DRIVER-[facility] LAB BLOOD ORDERABLES Fi nal Result [facility] [address] [place] [address], [place] [phone] * Magnesium (03/08/2025 4:55 AM EDT) Pathologist [facility] MAGNESIUM 2.0 1.8 - 2.6 mg/dL 03/08/2025 5:44 AM EDT [facility] Blood Venous blood / Unknown 03/08/2025 4:55 AM EDT 03/08/2025 5:09 AM EDT Neelima Ta STUDENT TRUCK DRIVER-[facility] LAB BLOOD ORDERABLES Fi nal Result [facility] [address] [place] [address], [place] [phone] * (ABNORMAL) Bedside Glucose *Place/Obtain serum glucose if >500 per glucometer. (03/08/2025 3:51 AM EDT) Bedside Glucose (POC) 282(H) 65 - 99 mg/dL 03/08/2025 8:38 AM EDT [facility] arterial/capilla ry 03/08/2025 3:51 AM EDT 03/08/2025 8:38 AM EDT us Ghassan Castillo MD POINT OF CARE TEST ORDERABLES F inal Result Performing Organization Address City/[facility]/ZIP Co de Phone Number [facility] [address] [place] [address], [place] * (ABNORMAL) Troponin I, High Sensitivity 1 Hour (03/08/2025 3:48 AM EDT) TROPONIN I, HIGH SENSITIVITY 38(H) <16 ng/L 03/08/2025 4:40 AM EDT [facility] Blood Venous blood / Unknown 03/08/2025 3:48 AM EDT 03/08/2025 4:07 AM EDT Narrative [facility] - 03/08/2025 4:40 AM EDT Elevations of hs-Troponin may be due to causes other than myocardial ischemia. Recommend serial hs-Troponin testing be performed. For the initial evaluation and management of chest pain patients, refer to the algorithms linked below. Emergency Patient: [email or web address] Inpatient: [email or web address] us Дмитрий Lara MD LAB BLOOD ORDERABLES Final Resul t [facility] [address] [place] [address], [place] [phone] * (ABNORMAL) Protime & INR (03/08/2025 3:48 AM EDT) PROTIME 18.5(H) 9.8 - 13.2 sec 03/08/2025 4:22 AM EDT [facility] INR 1.6(H) 0.9 - 1.2 03/08/2025 4:22 AM EDT [facility] Blood Venous blood / Unknown 03/08/2025 3:48 AM EDT 03/08/2025 4:06 AM EDT us Eleni Harding STUDENT TRUCK DRIVER-[employer] LAB BLOOD ORDERABLES Fi nal Result [facility] [address] [place] [address], [place] [phone] * (ABNORMAL) CBC without diff (03/08/2025 3:48 AM EDT) WBC 5.2 4 - 11 x10E9/L 03/08/2025 4:41 AM EDT [facility] RBC Count 4.06 3.8 - 5.2 X10E12/L 03/08/2025 4:41 AM EDT [facility] Hemoglobin 10.8(L) 11.7 - 15.5 g/dL 03/08/2025 4:41 AM EDT [facility] Hematocrit 32.6(L) 35 - 47 % 03/08/2025 4:41 AM EDT [facility] MCV 80 80 - 100 fL 03/08/2025 4:41 AM EDT [facility] MCH 26.7(L) 27 - 34 pg 03/08/2025 4:41 AM EDT [facility] MCHC 33.2 32 - 36 g/dL 03/08/2025 4:41 AM EDT [facility] RDW 22.4(H) 11.5 - 15 % 03/08/2025 4:41 AM EDT [facility] Platelet Count 165 150 - 450 X10E9/L 03/08/2025 4:41 AM EDT [facility] MPV 7.5 7 - 12 fL 03/08/2025 4:41 AM EDT [facility] Blood Venous blood / Unknown 03/08/2025 3:48 AM EDT 03/08/2025 4:07 AM EDT 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 [place] [address], * Transfuse fresh frozen plasma: (03/08/2025 3:08 AM EDT) Dyan Carson MD BLOOD TRANSFUSION ORDERABLES Fi nal Result * Transfuse fresh frozen plasma: (03/08/2025 3:08 AM EDT) Dyan Carson MD BLOOD TRANSFUSION ORDERABLES Fi nal Result * (ABNORMAL) Blood Gas, Arterial (03/08/2025 3:06 AM EDT) Sample type ARTERIAL 03/08/2025 3:[address] [facility] pH, Arterial 7.231(L) 7.350 - 7.450 03/08/2025 3:[address] [facility] pCO2, Arterial 45.0 35.0 - 45.0 mmHg 03/08/2025 3:20 AM [facility] PO2, Arterial 174(H) 80 - 100 mmHg 03/08/2025 3:[address] [facility] Base, Deficit -8.0(L) 0.0 - 2.0 mmol/L 03/08/2025 3:[facility] HCO3, Arterial 18.9(L) 22.0 - 26.0 mmol/L 03/08/2025 3:[address] [facility] %O2 Saturation, Arterial 99.0 >90.0 % 03/08/2025 3:[address] [facility] Irwin's test N/A 03/08/2025 3:[address] [facility] SPO2 100 % 03/08/2025 3:[address] [facility] Sample site A Line 03/08/2025 3:[address] [facility] Insp. O2 conc. 100 % 03/08/2025 3:[address] [facility] Source Of Oxygen Vent 03/08/2025 3:[address] [facility] arterial (Blood, Arterial) 03/08/2025 3:06 AM EDT 03/08/2025 3:20 AM EDT Ghassan Castillo MD LAB BLOOD ORDERABLES Final Resu lt [facility] [address] [address], [place] * Transfuse RBC:2 Units (03/08/2025 2:17 AM EDT) Дмитрий Lara MD BLOOD TRANSFUSION ORDERABLES Fin al Result * Transfuse RBC:2 Units (03/08/2025 2:17 AM EDT) Дмитрий Lara MD BLOOD TRANSFUSION ORDERABLES Fin al Result * Transfuse RBC:2 Units (03/08/2025 2:17 AM EDT) Result [facility] Дмитрий Lara MD BLOOD TRANSFUSION ORDERABLES Fin al Result * Transfuse RBC:1 Unit (03/08/2025 2:07 AM EDT) Result [facility] Дмитрий Lara MD BLOOD TRANSFUSION ORDERABLES Fin al Result * Transfuse RBC:1 Unit (03/08/2025 2:07 AM EDT) Result [facility] Дмитрий Lara MD BLOOD TRANSFUSION ORDERABLES Fin al Result * Transfuse fresh frozen plasma: (03/08/2025 1:56 AM EDT) Dyan Carson MD BLOOD TRANSFUSION ORDERABLES Fi nal Result * Transfuse fresh frozen plasma: (03/08/2025 1:56 AM EDT) Dyan Carson MD BLOOD TRANSFUSION ORDERABLES Fi nal Result * X-ray chest 1 view (03/08/2025 1:46 AM EDT) Anatomical Region Laterality Modality Body, Chest N/A Computed Radiogr aphy 03/08/2025 2:30 AM EDT Narrative 03/08/2025 2:34 AM EDT History: Chest tube placement Technique: A portable single frontal view of the chest was obtained. Comparison: 03/08/2025 at 12:54 AM Findings: The left lung has reexpanded since previous examination with extensive infiltrative changes in the left mid and upper lung. There is a left-sided chest tube in place. There is been interval development of extensive subcutaneous emphysema in the left chest wall and neck bilaterally. The shifted mediastinal structures described in the prior studies the lower demonstrated. The endotracheal tube has been retracted since prior study. The venecia cannot be well visualized due to technique. There is been interval placement of a central venous catheter approaching from the right tip in the superior vena cava. The right lung is clear for an active process. The heart size is within normal limits. Impression: * Interval development of a large amount of subcutaneous emphysema in the left chest wall in the soft tissues of the neck bilaterally since the previous examination performed earlier today * Reexpansion of the left lung with resolution of the mediastinal shift to the left seen on the prior study * Left sided chest tube in place * Retraction of the endotracheal tube. Because of technique, the location of the venecia is difficult to determine Finalized by Chaitanya Gandara MD on 03/08/2025 2:34 AM Procedure Note Chaitanya Gandara MD - 03/08/2025 History: Chest tube placement Technique: A portable single frontal view of the chest was obtained. Comparison: 03/08/2025 at 12:54 AM Findings: The left lung has reexpanded since previous examination withextensive infiltrative changes in the left mid and upper lung. There is aleft-sided chest tube in place. There is been interval development ofextensive subcutaneous emphysema in the left chest wall and neckbilaterally. The shifted mediastinal structures described in the prior studies the lowerdemonstrated. The endotracheal tube has been retracted since prior study. The carinacannot be well visualized due to technique. There is been interval placement of a central venous catheter approachingfrom the right tip in the superior vena cava. The right lung is clear dhruv active process. The heart size is within normal limits. Impression: * Interval development of a large amount of subcutaneous emphysema in theleft chest wall in the soft tissues of the neck bilaterally since theprevious examination performed earlier today * Reexpansion of the left lung with resolution of the mediastinal shiftto the left seen on the prior study * Left sided chest tube in place * Retraction of the endotracheal tube. Because of technique, the locationof the venecia is difficult to determine Finalized by Chaitanya Gandara MD on 03/08/2025 2:34 AM us Дмитрий Lara MD IMG DIAGNOSTIC IMAGING ORDERABLE S Final Result * X-ray chest 1 view (03/08/2025 1:11 AM EDT) Anatomical Region Laterality Modality Body, Chest N/A Computed Radiogr aphy 03/08/2025 1:31 AM EDT Narrative 03/08/2025 1:34 AM EDT History: Intubation Technique: A portable single frontal view of the chest was obtained. Comparison: 03/06/2025 Findings: There is an endotracheal tube in place with its tip extending into the right main bronchus. This should be retracted approximately 5.5 cm. There is atelectasis of the left lung is new since the previous examination. There is shift of the mediastinal structures toward the left. There is an enteric tube in place with its tip in the stomach but its side port at the level the gastroesophageal junction. The right lung is clear for an active process. Impression: * Endotracheal tube extends into the right main bronchus with resultant atelectasis of the left lung and shift of the mediastinal structures toward the left * Enteric tube in place with its tip in the stomach but its sidehole at the level the gastroesophageal junction. THIS REPORT CONTAINS A SIGNIFICANT RESULT AND/OR RECOMMENDATION, WHICH REQUIRES THE ATTENTION OF THE LICENSED CAREGIVER RESPONSIBLE FOR THIS PATIENT. THEREFORE, I SPECIFICALLY DESIGNATED THIS REPORT TO BE TELEPHONED BY THE RADIOLOGY DEPARTMENT. FINDINGS WERE INSTRUCTED TO BE CALLED TO THE CLINICAL SERVICE ON 03/08/2025 AT 1:34 AM. * Finalized by Chaitanya Gandara MD on 03/08/2025 1:34 AM Procedure Note Chaitanya Gandara MD - 03/08/2025 History: Intubation Technique: A portable single frontal view of the chest was obtained. Comparison: 03/06/2025 Findings: There is an endotracheal tube in place with its tip extendinginto the right main bronchus. This should be retracted approximately 5.5cm. There is atelectasis of the left lung is new since the previousexamination. There is shift of the mediastinal structures toward theleft. There is an enteric tube in place with its tip in the stomach but its sideport at the level the gastroesophageal junction. The right lung is clear for an active process. Impression: * Endotracheal tube extends into the right main bronchus with resultantatelectasis of the left lung and shift of the mediastinal structurestoward the left * Enteric tube in place with its tip in the stomach but its sidehole atthe level the gastroesophageal junction. THIS REPORT CONTAINS A SIGNIFICANT RESULT AND/OR RECOMMENDATION, WHICHREQUIRES THE ATTENTION OF THE LICENSED CAREGIVER RESPONSIBLE FOR THISPATIENT. THEREFORE, I SPECIFICALLY DESIGNATED THIS REPORT TO BE TELEPHONED BY THERADIOLOGY DEPARTMENT. FINDINGS WERE INSTRUCTED TO BE CALLED TO THE CLINICAL SERVICE ON 03/08/2025T 1:34 AM. * Finalized by Chaitanya Gandara MD on 03/08/2025 1:34 AM Дмитрий Lara MD IMG DIAGNOSTIC IMAGING ORDERABLE S Final Result * (ABNORMAL) POCT ABG with NA, K, GLU, ICA and HCT (03/08/2025 12:43 AM EDT) POC Sodium 137 134 - 146 mmol/L 03/08/2025 12:55 AM [facility] POC Potassium 3.4(L) 3.5 - 5.0 mmol/L 03/08/2025 12:55 AM [facility] POC Glucose 245(H) 65 - 99 mg/dL 03/08/2025 12:55 AM [facility] POC Hematocrit 17(L) 35 - 47 % 03/08/2025 12:55 AM [facility] POC Ionized Calcium 5.2 4.5 - 5.3 mg/dL 03/08/2025 12:55 AM [facility] Sample type ARTERIAL 03/08/2025 12:55 AM [facility] pH, Arterial 7.186(LL) 7.350 - 7.450 03/08/2025 12:55 AM [facility] pCO2, Arterial 44.5 35.0 - 45.0 mmHg 03/08/2025 12:[address] [facility] PO2, Arterial 56(L) 80 - 100 mmHg 03/08/2025 12:[address] [facility] Base, Deficit -10.0(L) 0.0 - 2.0 mmol/L 03/08/2025 12:[address] [facility] HCO3, Arterial 16.8(L) 22.0 - 26.0 mmol/L 03/08/2025 12:[address] [facility] %O2 Saturation, Arterial 81.0(L) >90.0 % 03/08/2025 12:[address] [facility] Irwin's test N/A 03/08/2025 12:[address] [facility] SPO2 86 % 03/08/2025 12:[address] [facility] Sample site A Line 03/08/2025 12:[address] [facility] Insp. O2 conc. 100 % 03/08/2025 12:[address] [facility] Source Of Oxygen Vent 03/08/2025 12:[address] [facility] arterial 03/08/2025 12:4 3 AM EDT 03/08/2025 12:55 AM EDT us Dario Burris MD POINT OF CARE TEST ORDERABLES Fi nal Result [facility] [address] [place] [address], [place] * EKG (03/08/2025 12:39 AM EDT) 03/08/2025 12:3 9 AM EDT Narrative [facility] - 03/10/2025 6:48 AM EDT us Дмитрий Lara MD ECG ORDERABLES Final Result [facility] * Ionized magnesium (03/08/2025 12:35 AM EDT) IONIZED MAGNESIUM 0.53 0.45 - 0.74 mmol/L 03/08/2025 1:09 AM EDT [facility] Blood Venous blood / Unknown 03/08/2025 12:35 AM EDT 03/08/2025 12:54 AM EDT us Дмитрий Lara MD LAB BLOOD ORDERABLES Final Resul t [facility] [address] [place] [address], [place] [phone] * Ionized calcium (03/08/2025 12:35 AM EDT) Pathologist [facility] IONIZED CALCIUM - ICAN 4.9 4.5 - 5.3 mg/dL 03/08/2025 1:09 AM EDT [facility] Blood Venous blood / Unknown 03/08/2025 12:35 AM EDT 03/08/2025 12:54 AM EDT us Дмитрий Lara MD LAB BLOOD ORDERABLES Final Resul t Performing Organization Address City/[facility]/ZIP Co de Phone Number [facility] [address] [place] [address], [place] [phone] * (ABNORMAL) Troponin I, High Sensitivity 0 Hour (03/08/2025 12:32 AM EDT) TROPONIN I, HIGH SENSITIVITY 17(H) <16 ng/L 03/08/2025 1:28 AM EDT [facility] Blood Venous blood / Unknown 03/08/2025 12:32 AM EDT 03/08/2025 12:54 AM EDT us Дмитрий Lara MD LAB BLOOD ORDERABLES Final Resul t [facility] [address] [place] [address], [place] [phone] * (ABNORMAL) Comprehensive metabolic panel (03/08/2025 12:32 AM EDT) SODIUM 138 134 - 146 mmol/L 03/08/2025 1:27 AM EDT [facility] POTASSIUM 3.5 3.5 - 5.0 mmol/L 03/08/2025 1:27 AM T [facility] CHLORIDE 105 98 - 109 mmol/L 03/08/2025 1:27 AM T [facility] CARBON DIOXIDE 19(L) 22 - 32 mmol/L 03/08/2025 1:27 AM T [facility] ANION GAP 14 5 - 15 mmol/L 03/08/2025 1:27 AM T [facility] BLOOD UREA NITROGEN 29(H) 5 - 27 mg/dL 03/08/2025 1:27 AM T [facility] CREATININE 1.18(H) 0.40 - 1.00 mg/dL 03/08/2025 1:27 AM T [facility] Comment:METHOD TRACEABLE TO IDMS STANDARD GLUCOSE 258(H) 65 - 99 mg/dL 03/08/2025 1:27 AM T [facility] CALCIUM 8.3(L) 8.5 - 10.5 mg/dL 03/08/2025 1:27 AM T [facility] TOTAL PROTEIN 3.2(L) 6.0 - 8.0 g/dL 03/08/2025 1:27 AM T [facility] ALBUMIN 1.9(L) 3.2 - 5.3 g/dL 03/08/2025 1:27 AM T [facility] ALKALINE PHOSPHATASE 37(L) 39 - 130 U/L 03/08/2025 1:27 AM T [facility] AST 108(H) <=41 U/L 03/08/2025 1:27 AM T [facility] ALT 33(H) <=31 U/L 03/08/2025 1:27 AM T [facility] BILIRUBIN,TOTAL 0.3 0.3 - 1.2 mg/dL 03/08/2025 1:27 AM EDT [facility] EGFR Non-Race Dependent 50(L) >=60 ml/min/1.7 3sq.m 03/08/2025 1:27 AM EDT [facility] Comment: Reported eGFR is based on the CKD-EPI 2020 equation that does not use a race coefficient. Blood Venous blood / Unknown 03/08/2025 12:32 AM EDT 03/08/2025 12:54 AM EDT us Дмитрий Lara MD LAB BLOOD ORDERABLES Final Resul t Performing Organization Address City/[facility]/ZIP Co de Phone Number [facility] [address] [place] [address], [place] [phone] * B-type natriuretic peptide (03/08/2025 12:32 AM EDT) BNP 22 <=100 pg/mL 03/08/2025 1:52 AM EDT [facility] Blood Venous blood / Unknown 03/08/2025 12:32 AM EDT 03/08/2025 12:55 AM EDT us Дмитрий Lara MD LAB BLOOD ORDERABLES Final Resul t Performing Organization Address City/[facility]/ZIP Co de Phone Number [facility] [address] [place] [address], [place] [phone] * (ABNORMAL) Fibrinogen (03/08/2025 12:32 AM EDT) FIBRINOGEN 186(L) 190 - 480 mg/dL 03/08/2025 1:10 AM EDT [facility] Blood Venous blood / Unknown 03/08/2025 12:32 AM EDT 03/08/2025 12:55 AM EDT us Дмитрий Lara MD LAB BLOOD ORDERABLES Final Resul t [facility] [address] [place] [address], [place] [phone] * (ABNORMAL) Phosphorus (03/08/2025 12:32 AM EDT) PHOSPHORUS 5.4(H) 2.4 - 4.9 mg/dL 03/08/2025 1:27 AM EDT [facility] Blood Venous blood / Unknown 03/08/2025 12:32 AM EDT 03/08/2025 12:54 AM EDT us Дмитрий Lara MD LAB BLOOD ORDERABLES Final Resul t [facility] [address] [place] [address], * Magnesium (03/08/2025 12:32 AM EDT) MAGNESIUM 2.1 1.8 - 2.6 mg/dL 03/08/2025 1:27 AM EDT [facility] Blood Venous blood / Unknown 03/08/2025 12:32 AM EDT 03/08/2025 12:54 AM EDT us Дмитрий Lara MD LAB BLOOD ORDERABLES Final Resul t [facility] [address] [place] [address], * (ABNORMAL) Lactate w/ Reflex (03/08/2025 12:32 AM EDT) LACTATE W/REFLEX 9.8(HH) 0.4 - 2.0 mmol/L 03/08/2025 1:47 AM EDT [facility] Blood Venous blood / Unknown 03/08/2025 12:32 AM EDT 03/08/2025 12:55 AM EDT us Дмитрий Lara MD LAB BLOOD ORDERABLES Final Resul t [facility] [address] [place] [address], [place] [phone] * (ABNORMAL) CBC without diff (03/08/2025 12:32 AM EDT) WBC 19.0(H) 4 - 11 x10E9/L 03/08/2025 1:15 AM EDT [facility] RBC Count 2.39(L) 3.8 - 5.2 X10E12/L 03/08/2025 1:15 AM EDT [facility] Hemoglobin 5.6(LL) 11.7 - 15.5 g/dL 03/08/2025 1:15 AM EDT [facility] Hematocrit 18.7(L) 35 - 47 % 03/08/2025 1:15 AM EDT [facility] MCV 78(L) 80 - 100 fL 03/08/2025 1:15 AM EDT [facility] MCH 23.2(L) 27 - 34 pg 03/08/2025 1:15 AM EDT [facility] MCHC 29.7(L) 32 - 36 g/dL 03/08/2025 1:15 AM EDT [facility] RDW 20.1(H) 11.5 - 15 % 03/08/2025 1:15 AM EDT [facility] Platelet Count 179 150 - 450 X10E9/L 03/08/2025 1:15 AM EDT [facility] MPV 7.4 7 - 12 fL 03/08/2025 1:15 AM EDT [facility] Blood Venous blood / Unknown 03/08/2025 12:32 AM EDT 03/08/2025 12:55 AM EDT Дмитрий Lara MD LAB BLOOD ORDERABLES Final Resul t [facility] 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 (6.0 x 4.8 x 5.7 cm) Neoplasm invades through the subserosa into the overlying pericolonic adipose tissue Additionally tumor deposits invading the submucosa of the terminal ileum, appendix and proximal transverse colon Additional omental and pericolonic adipose tissue tumor deposits present The retroperitoneal margin of the ascending colon is involved by neoplastic tumor deposits All other margins of resection are uninvolved by neoplasm Twenty lymph nodes, negative for metastatic malignancy (0/20) Appendix with sessile serrated lesion, negative for dysplasia Right ovary and fallopian tube, salpingo-oophorectomy: Ovary and fallopian tube with METASTATIC MUCINOUS ADENOCARCINOMA of primary colon (15.5 x 12.5 x 7 cm) Left ovary and fallopian tube, salpingo-oophorectomy: Benign ovary and fallopian tube 11:18 AM EDT [facility] at 1118 EDT Comment Immunostains were performed with adequate controls on tumor deposits, primary lesion and the ovarian mass from part 2 results show the following: CDX2+, CK20+, PAX8-,WT1-,CK7-, supporting colonic primary neoplasm. See MMR results below. 5 11:18 AM EDT [facility] Gross Description 1. Received in formalin labeled nilda SUAREZ Prior to grossing the specimen, gross photographs are taken. Specimen Organ(s)/tissue(s) included: terminal ileum, cecum, appendix, ascending colon, transverse colon, descending colon, and sigmoid colon Number of pieces: Two markedly dilated, separate segments of colon; received at the proximal descending colon. Dimensions: Terminal ileum: 11.0 cm in length and up to 2.0 cm in diameter Cecum: 8.0 cm in length and up to 9.5 cm in diameter Appendix: 4.8 cm in length and up to 0.8 cm in diameter Ascending colon: 20 cm in length and up to 9.5 cm in diameter Transverse colon: 19 cm in length and up to 7.0 cm in diameter Descending colon: 21 cm in length and up to 7.0 cm in diameter Sigmoid colon: 27 cm in length and up to 7.5 cm in diameter Tumor #1 Location: Terminal ileum Configuration: Submucosal Dimensions: 0.6 x 0.6 x 0.5 cm Descriptive characteristics: Nodular, rubbery-firm Perforation: Absent Distance from margins Proximal (terminal ileum): 1.0 cm Distal (sigmoid colon): 98 cm Mesenteric: 0.7 cm Comment: The serosal surface overlying the nodule is inked green, and the mesenteric margin is inked black. Estimated depth of invasion: The nodule grossly appears to invade to the subserosa; however, definitive depth of invasion to the muscularis propria is deferred to microscopic analysis. Tumor #2 Location: Terminal ileum Configuration: Submucosal Dimensions: 1.5 x 1.0 x 1.0 cm Descriptive characteristics: Nodular, rubbery-firm Perforation: Absent Distance from margins Proximal (terminal ileum): 6.3 cm Distal (sigmoid colon): 94 cm Mesenteric: 0.6 cm Comment: The mesenteric margin overlying the nodular area is inked black. The serosal surface is inked blue. Estimated depth of invasion: The nodule grossly appears to invade through the subserosa into the muscularis propria; however, definitive depth of invasion is deferred to microscopic analysis. Tumor #3 Location: Sigmoid colon Configuration: Diffusely infiltrative, entirely circumferential of the lumen. Dimensions: 6.0 x 4.8 x 5.7 cm in aggregate Descriptive characteristics: [place]-pale kevin-white, friable to rubbery-firm Perforation: A transmural defect is identified at the mid aspect of the ascending colon, 0.4 cm in greatest dimension, and is 18 cm from the distal surgical margin. Distance from margins Proximal (terminal ileum): 89 cm Distal (sigmoid colon): 3.0 cm Retroperitoneal: 0.3 cm Comment: The serosa and adipose tissue at the retracted area of serosa is inked blue. The retroperitoneal margin of the colon is inked black. Estimated depth of invasion: The mass grossly appears to invade through the subserosa into the overlying pericolonic adipose tissue Tumor deposits: Present Additional lesions and appearance of uninvolved mucosa: The appendix is serially sectioned to reveal a lumen ranging from markedly stenotic-0.3 cm in diameter partially filled with wade-brown, friable material, and without a definitive fecalith identified. The distal tip of the appendix (inked black) is bisected to reveal pale kevin-white, poorly defined tissue possibly invading into the overlying adipose tissue. A slightly raised, dark pink-wade polyp is identified at the proximal transverse colon, 0.7 cm in greatest dimension, and is 16 cm from the distal margin. The remainder of the mucosa is generally dark wade-pink, smooth to folded in the typical fashion, and glistening. Regional lymph nodes: Following treatment and lymph node reveals solution, 32 pink-pale kevin-white, well-circumscribed to poorly defined lymph node candidates are identified, from 0.2-1.2 cm in greatest dimension. Comment: The serosal surface at the distal aspect of the sigmoid colon (inked blue) is rgmy-ekr-oncma, firm and slightly retracted. The overlying retroperitoneal adipose tissue (inked black) is yellow-waed, predominantly firm to focally soft, and glistening. The remainder of the serosal surface of the specimen is predominantly dusky, purple-kevin to pink-wade, smooth, and glistening. The transverse colon is resected with a sheet of yellow-wade, focally hemorrhagic omental tissue (focally inked black), 21 x 2.5 x 19 cm in aggregate. The omental tissue is sectioned to reveal focal pale kevin-white, firm-nodular areas, up to 2.2 cm in thickness. The colectomy specimens are resected with yellow-wade, focally hemorrhagic pericolonic adipose tissue up to 6.0 cm in thickness. Cassette Summary: A Proximal margin, terminal ileum B Distal margin, proximal descending colon C Distal margin, sigmoid colon D Retroperitoneal margin, sigmoid colon, perpendicular section E Retroperitoneal margin, ascending colon, en face section F,G Mass #1, terminal ileum, entirely submitted H Mesenteric margin, terminal ileum, overlying mass #1 I-K Mass #2, terminal ileum, entirely submitted L Mesenteric margin, terminal ileum, overlying mass #2 M-O Appendix, entirely submitted from proximal-distal to include bisected distal tip (inked black) P Ileocecal valve Q Transmural defect, ascending colon R Cecum, ascending colon, transverse colon, route sales representative strips to include polyp S Omental tissue, route sales representative sections T Mass #3, sigmoid colon, to include greatest depth of invasion U-Z Mass #3, sigmoid colon, additional route sales representative sections to include adjacent mucosa AA Lymph node candidate, largest, terminal ileum, sectioned BB Lymph node candidates x 2 (one inked black), bisected, right colon CC-GG Lymph node candidates, intact, ascending colon HH Lymph node candidates, intact, descending colon II,JJ Lymph node candidates, intact, sigmoid colon (36, ss, [id number], m6.1) JKH Fixation Time: Tissue removed from patient: 2327 Time specimen placed in formalin: 2327 Time specimen opened: 930 Total fixation time prior to processin hours 2. Received in formalin labeled BIBLER, right adnexal mass and cyst is a 770 g, focally disrupted adnexa. The attached fallopian tube (5.6 cm in length and up to 0.5 cm in diameter) is continuous with distal fimbriated end. The serosa is pale kevin-white to purple-wade kevin, smooth with scattered adhesions, and glistening. The fimbriated end is perpendicularly sectioned and submitted entirely in cassette A, and cross-sections of the fallopian tube are submitted entirely, sequentially from distal-proximal in cassettes B and C. The disrupted ovary (15.5 x 12.5 x 7 cm) exhibits a capsular surface that is purple-wade kevin to pink-wade, focally hemorrhagic, predominately smooth to focally nodular and cystic, and glistening. The ovary is serially sectioned to reveal focally solid pink-wade cut surfaces and innumerable scattered cyst partially filled with wade watery fluid, hemorrhagic material, and focally adherent wade, viscous material. The residual ovarian parenchyma is pink-wade, markedly compressed, and poorly defined. Marketing Financial Analyst sections of the ovary to include focally solid and cystic areas are submitted in cassettes D-R. Gross photographs of the specimen and cut surface are attached. (18, ss, [id number], m6.1) Mason 3. Received in formalin labeled BIBLER, left fallopian tube and ovary is a 4.1 g, intact adnexa. The attached fallopian tube (4.2 cm in length and up to 0.5 cm in diameter) is continuous with cauterized distal end; however, a definitive fimbria is not identified. The serosa is pink-wade to purple-kevin, smooth with scattered adhesions, and glistening. The apparent cauterized distal end is perpendicularly sectioned and submitted entirely in cassette A. Cross-sections of the remaining fallopian tube are submitted entirely, sequentially from distal-proximal in cassettes B and C. The attached ovary (2.7 x 0.7 x 1.0 cm) exhibits an intact capsular surface that is pink-wade, predominately smooth to focally bosselated. The ovary is longitudinally bisected to reveal pink-wade parenchyma with scattered pale-wade simple cyst without definitive papillations or excrescences identified. The ovary is submitted entirely in cassettes D and E. (5, ss, [id number], m6.1) MasonKH 5 11:18 AM EDT [facility] Synoptic Checklist COLON AND RECTUM: Resection COLON AND RECTUM: RESECTION - All Specimens 8th Edition - Protocol posted: 12/20/2023 SPECIMEN Procedure: bilateral salpingo-oophorectomy and small bowel resection TUMOR Tumor Site: Sigmoid colon Histologic Type: Mucinous adenocarcinoma Histologic Grade: G2, moderately differentiated Tumor Size: Greatest dimension (Centimeters): 6 cm Tumor Extent: Invades visceral peritoneum Macroscopic Tumor Perforation: Not identified Lymphatic and / or Vascular Invasion: Large vessel (venous), intramural Perineural Invasion: Present Tumor Budding Score: Cannot be determined: extensive peritoneal disease Number of Tumor Buds: Cannot be determined: see above Type of Polyp in which Invasive Carcinoma Arose: Villous adenoma Treatment Effect: No known presurgical therapy MARGINS Margin Status for Invasive Carcinoma: Invasive carcinoma present at margin Margin(s) Involved by Invasive Carcinoma: Radial (circumferential): ascending colon Margin Status for Non-Invasive Tumor: Not applicable REGIONAL LYMPH NODES Regional Lymph Node Status: : All regional lymph nodes negative for tumor Number of Lymph Nodes Examined: 20 Tumor Deposits: Present Number of Tumor Deposits: inumerable DISTANT METASTASIS Distant Site(s) Involved: right ovary, fallopian tube, and omentum pTNM CLASSIFICATION (AJCC 8th Edition) Reporting of pT, pN, and (when applicable) pM categories is based on information available to the pathologist at the time the report is issued. As per the AJCC (Chapter 1, 8th Ed.) it is the managing physician's responsibility to establish the final pathologic stage based upon all pertinent information, including but potentially not limited to this pathology report. pT Category: pT4a pN Category: pN0 pM Category: pM1c Colon and Rectum Biomarker Reporting Template COLON AND RECTUM: BIOMARKER REPORTING TEMPLATE - All Specimens Protocol posted: 12/30/2020 RESULTS Mismatch Repair: Immunohistochemistry (IHC) Testing for Mismatch Repair (MMR) Proteins: MLH1 Result: Intact nuclear expression Immunohistochemistry (IHC) Testing for Mismatch Repair (MMR) Proteins: MSH2 Result: Intact nuclear expression Immunohistochemistry (IHC) Testing for Mismatch Repair (MMR) Proteins: MSH6 Result: Intact nuclear expression Immunohistochemistry (IHC) Testing for Mismatch Repair (MMR) Proteins: PMS2 Result: Intact nuclear expression IHC Interpretation: No loss of nuclear expression of MMR proteins: low probability of MSI-H 5 11:18 AM EDT [facility] Embedded Images 5 11:18 AM [facility] Tissue Colon structure / Unknown 03/07/2025 11:28 PM EDT 03/10/2025 7:19 AM EDT Comment:Pre-op diagnosis: ADENEXAL MASS Tissue specimen (specimen) (Ovary) 03/07/2025 11:29 PM EDT 03/10/2025 7:19 AM EDT Comment:Pre-op diagnosis: ADENEXAL MASS Tissue specimen (specimen) (Fallopian Tube and Ovary) 03/07/2025 11:31 PM EDT 03/10/2025 7:19 AM EDT Comment:Pre-op diagnosis: ADENEXAL MASS Ghassan Castillo MD PATHOLOGY/CYTOLOGY ORDERABLES F inal Result [facility] [address] [place] [address], * (ABNORMAL) Blood Gas, Arterial (03/07/2025 11:13 PM EDT) Sample type Arterial 03/07/2025 11:[address] [facility] Body Temp 37.00 >=37 C 03/07/2025 11:[address] [facility] pH, Arterial 7.372 7.350 - 7.450 03/07/2025 11:[address] [facility] pCO2, Arterial 39.7 35.0 - 45.0 mmHg 03/07/2025 11:[address] [facility] PO2, Arterial 34(LL) 80 - 100 mmHg 03/07/2025 11:[address] [facility] Base, Deficit -2.2(L) 0.0 - 2.0 mmol/L 03/07/2025 11:[address] [facility] HCO3, Arterial 23.0 22.0 - 26.0 mmol/L 03/07/2025 11:[address] [facility] %O2 Saturation, Arterial 60.5(L) >90.0 % 03/07/2025 11:[address] [facility] Irwin's test NA 03/07/2025 11:[address] [facility] SPO2 34.4 % 03/07/2025 11:[address] [facility] Sample site A LINE 03/07/2025 11:[address] [facility] Insp. O2 conc. 100.0 % 03/07/2025 11:[address] [facility] arterial (Blood, Arterial) 03/07/2025 11:13 PM EDT 03/07/2025 11:13 PM EDT us Dario Burris MD LAB BLOOD ORDERABLES Final Resul t [facility] [address] [place] [address], [place] * (ABNORMAL) Protime & INR (03/07/2025 7:40 PM EDT) PROTIME 21.2(H) 9.8 - 13.2 sec 03/07/2025 9:11 PM EDT [facility] INR 1.9(H) 0.9 - 1.2 03/07/2025 9:11 PM EDT [facility] Blood Venous blood / Unknown Venipuncture / Unknown 03/07/2025 7:40 PM EDT 03/07/2025 7:56 PM EDT us Abby Palmer MD LAB BLOOD ORDERABLES Final Result Performing Organization Address City/[facility]/ZIP Co de Phone Number [facility] [address] [place] [address], [place] [phone] * APTT (03/07/2025 7:40 PM EDT) APTT 32 26 - 37 sec 03/07/2025 8:33 PM EDT [facility] Blood Venous blood / Unknown Venipuncture / Unknown 03/07/2025 7:40 PM EDT 03/07/2025 7:56 PM EDT us Ghassan Castillo MD LAB BLOOD ORDERABLES Final Resu lt [facility] [address] [place] [address], * Transfuse fresh frozen plasma: (03/07/2025 7:39 PM EDT) Ernie Elizondo [facility] BLOOD TRANSFUSION ORDERAB LES Final Result * Transfuse fresh frozen plasma: (03/07/2025 7:39 PM EDT) Ernie Elizondo [facility] BLOOD TRANSFUSION ORDERAB LES Final Result * Type and screen(includes indirect ramos) (03/07/2025 3:57 PM EDT) ABO A 03/07/2025 5:[address] [facility] RH Positive 03/07/2025 5:[address] [facility] Antibody Screen Negative 03/07/2025 5:[address] [facility] Blood Venous blood / Unknown Venipuncture / Unknown 03/07/2025 3:57 PM EDT 03/07/2025 4:17 PM EDT Ernie Elizondo [facility] BLOOD BANK TEST ORDERABLE S Edited Result - Final [facility] [address] [place] [address], [facility] [address] [place] [address], * Crossmatch RBC: (03/07/2025 3:30 PM EDT) Blood component type [id number] BLOOD BANK [employer] Unit number [id number] BL OOD BANK - [facility]Active Unit ABO A BLOOD BANK - [facility] Unit RH POS BLOOD BANK - [facility] Status of unit /RELEASED BLOOD BANK - [facility] Expiration Date BLOOD BANK - [facility] BB Type Barcode 6200 BLOOD BANK - [facility] 03/07/2025 3:30 PM EDT 03/07/2025 4:40 PM EDT Дмитрий Lara MD BLOOD BANK PRODUCT ORDERABLES Fi nal Result BLOOD BANK - [facility] * Crossmatch RBC: (03/07/2025 3:30 PM EDT) Blood component type [id number] BLOOD BANK - [facility] Unit number [id number] BL OOD BANK - [facility] Unit ABO A BLOOD BANK - [facility] Unit RH POS BLOOD BANK - [facility] Status of unit /RELEASED BLOOD BANK - [facility] Expiration Date BLOOD BANK - [facility] BB Type Barcode 6200 BLOOD BANK - [facility] 03/07/2025 3:30 PM EDT 03/07/2025 4:40 PM EDT Дмитрий Lara MD BLOOD BANK PRODUCT ORDERABLES Fi nal Result Performing Organization Address [facility] Co de Phone Number BLOOD BANK - [facility] * Crossmatch RBC: (03/07/2025 3:30 PM EDT) Blood component type [id number] BLOOD BANK - [facility] Unit number [id number] BL OOD BANK - [facility] Unit ABO A BLOOD BANK - [facility] Unit RH POS BLOOD BANK - [facility] Crossmatch Compatible BLOOD BA NK - [facility] Status of unit SELECTED BLOOD BANK - [facility] Expiration Date BLOOD BANK - [facility] BB Type Barcode 6200 BLOOD BANK - [facility] 03/07/2025 3:30 PM EDT 03/07/2025 4:40 PM EDT Дмитрий Lara MD BLOOD BANK PRODUCT ORDERABLES Fi nal Result BLOOD BANK - [facility] * Crossmatch RBC: (03/07/2025 3:30 PM EDT) Blood component type [id number] BLOOD BANK - [facility] Unit number [id number] BL OOD BANK - [facility] Unit ABO A BLOOD BANK - [facility] Unit RH POS BLOOD BANK - [facility] Crossmatch Compatible BLOOD BA NK - [facility] Status of unit SELECTED BLOOD BANK - [facility] Expiration Date BLOOD BANK - [facility] BB Type Barcode 6200 BLOOD BANK - [facility] 03/07/2025 3:30 PM EDT 03/07/2025 4:40 PM EDT Дмитрий Lara MD BLOOD BANK PRODUCT ORDERABLES Fi nal Result BLOOD BANK - [facility] * Crossmatch RBC:Number of Units: 2 (03/07/2025 3:30 PM EDT) Blood component type [id number] BLOOD BANK - [facility] Unit number [id number] BL OOD BANK - [facility] Unit ABO A BLOOD BANK - [facility] Unit RH POS BLOOD BANK - [facility] Crossmatch Compatible BLOOD BA NK - [facility] Status of unit /RELEASED BLOOD BANK - [facility] Expiration Date BLOOD BANK - [place] BB Type Barcode 6200 BLOOD BANK - [facility] Blood component type [id number] BLOOD BANK - [facility] Unit number [id number] BL OOD BANK - [facility] Unit ABO A BLOOD BANK - [facility] Unit RH POS BLOOD BANK - [facility] Crossmatch Compatible BLOOD BA NK - [facility] Status of unit /RELEASED BLOOD BANK - [facility] Expiration Date BLOOD BANK - [facility] BB Type Barcode 6200 BLOOD BANK - [facility] Blood Venous blood / Unknown 03/07/2025 3:30 PM EDT 03/07/2025 4:40 PM EDT us Дмитрий Lara MD BLOOD BANK PRODUCT ORDERABLES Ed ited Result - Final BLOOD BANK - [facility] * Crossmatch RBC:Number of Units: 2 (03/07/2025 3:30 PM EDT) Blood component type [id number] BLOOD BANK - [facility] Unit number [id number] BL OOD BANK - [facility] Unit ABO A BLOOD BANK - [facility] Unit RH POS BLOOD BANK - [facility] Crossmatch Compatible BLOOD BA NK - [facility] Status of unit TRANSFUSED BLOO D BANK - [facility] Expiration Date [id number] BLOOD BANK - [facility] BB Type Barcode 6200 BLOOD BANK - [facility] Blood component type [id number] BLOOD BANK - [facility] Unit number [id number] BL OOD BANK - [facility] Unit ABO A BLOOD BANK - [facility] Unit RH POS BLOOD BANK - [facility] Crossmatch Compatible BLOOD BA NK - [facility] Status of unit TRANSFUSED BLOO D BANK - [facility] Expiration Date [id number] BLOOD BANK - [facility] BB Type Barcode 6200 BLOOD BANK - [facility] Blood Venous blood / Unknown 03/07/2025 3:30 PM EDT 03/07/2025 4:40 PM EDT Ghassan Castillo MD BLOOD BANK PRODUCT ORDERABLES E dited Result - Final [facility] - [facility] * Crossmatch RBC:Number of Units: 2 (03/07/2025 3:30 PM EDT) [facility] Blood component type [id number] BLOOD BANK - [facility] Unit number [id number] BL OOD BANK - [facility] Unit ABO A BLOOD BANK - [facility] Unit RH POS BLOOD BANK - [facility] Crossmatch Compatible BLOOD BA NK - [facility] Status of unit TRANSFUSED NALLELYO D BANK - [facility] Expiration Date [id number] BLOOD BANK - [facility] BB Type Barcode 6200 BLOOD BANK - [facility] Blood component type [id number] BLOOD BANK - [facility] Unit number [id number] BL OOD BANK - [facility] Unit ABO A BLOOD BANK - [facility] Unit RH POS BLOOD BANK - [facility] Crossmatch Compatible BLOOD BA NK - [facility] Status of unit /RELEASED BLOOD BANK - [facility] Expiration Date [id number] BLOOD BANK - [facility] BB Type Barcode 6200 BLOOD BANK - [facility] Blood Venous blood / Unknown 03/07/2025 3:30 PM EDT 03/07/2025 4:40 PM EDT Dyan Carson MD BLOOD BANK PRODUCT ORDERABLES E dited Result - Final [facility] - [facility] * (ABNORMAL) Urine Culture Urine, Indwelling Catheter (03/07/2025 11:22 AM EDT) CULTURE RESULTS 50,000-100,000 CFU/mL Vancomycin resistant Enterococcus species(A) 03/10/2025 11:27 AM EDT [facility] Comment: Ampicillin or Amoxicillin is the drug of choice for uncomplicated cystitis caused by enterococci. Cephalosporins are inappropriate. Urine (Urine, Indwelling Catheter) 03/07/2025 11:22 AM EDT 03/07/2025 11:44 AM EDT Narrative Organism Antibiotic Method Susceptibility Vancomycin resistant Enterococcus species Ampicillin >=32.0: Resistant Vancomycin resistant Enterococcus species Levofloxacin >=8.0: Resistant Vancomycin resistant Enterococcus species Linezolid 2.0: Susceptible Vancomycin resistant Enterococcus species Nitrofurantoin 64: Intermediate Vancomycin resistant Enterococcus species Vancomycin >=32.0: Resistant Vancomycin resistant Enterococcus species Susceptibility Comment Vancomycin resistant Enterococcus species Daptomycin 2.5: Susceptible (dose dependent) us Geremias Zapata MD MICROBIOLOGY - GENERAL ORD ERABLES Final Result [facility] [address] [place] [address], [place] [phone] * (ABNORMAL) Basic Metabolic Panel (03/07/2025 6:26 AM EDT) SODIUM 135 134 - 146 mmol/L 03/07/2025 7:24 AM EDT [facility] POTASSIUM 3.7 3.5 - 5.0 mmol/L 03/07/2025 7:24 AM EDT [facility] CHLORIDE 103 98 - 109 mmol/L 03/07/2025 7:24 AM EDT [facility] CARBON DIOXIDE 22 22 - 32 mmol/L 03/07/2025 7:24 AM EDT [facility] ANION GAP 10 5 - 15 mmol/L 03/07/2025 7:24 AM EDT [facility] BLOOD UREA NITROGEN 35(H) 5 - 27 mg/dL 03/07/2025 7:24 AM EDT [facility] CREATININE 1.16(H) 0.40 - 1.00 mg/dL 03/07/2025 7:24 AM EDT [facility] Comment:METHOD TRACEABLE TO IDMS STANDARD GLUCOSE 151(H) 65 - 99 mg/dL 03/07/2025 7:24 AM EDT [facility] CALCIUM 8.3(L) 8.5 - 10.5 mg/dL 03/07/2025 7:24 AM EDT [facility] EGFR Non-Race Dependent 51(L) >=60 ml/min/1.7 3sq.m 03/07/2025 7:24 AM EDT [facility] Comment: Reported eGFR is based on the CKD-EPI 2020 equation that does not use a race coefficient. Blood Venous blood / Unknown Venipuncture / Unknown 03/07/2025 6:26 AM EDT 03/07/2025 6:47 AM EDT 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 [place] [address], * (ABNORMAL) CBC without diff (03/07/2025 6:26 AM EDT) WBC 17.9(H) 4 - 11 x10E9/L 03/07/2025 7:05 AM EDT [facility] RBC Count 4.74 3.8 - 5.2 X10E12/L 03/07/2025 7:05 AM EDT [facility] Hemoglobin 11.0(L) 11.7 - 15.5 g/dL 03/07/2025 7:05 AM EDT [facility] Hematocrit 35.3 35 - 47 % 03/07/2025 7:05 AM EDT [facility] MCV 75(L) 80 - 100 fL 03/07/2025 7:05 AM EDT [facility] MCH 23.2(L) 27 - 34 pg 03/07/2025 7:05 AM EDT [facility] MCHC 31.1(L) 32 - 36 g/dL 03/07/2025 7:05 AM EDT [facility] RDW 19.8(H) 11.5 - 15 % 03/07/2025 7:05 AM EDT [facility] Platelet Count 341 150 - 450 X10E9/L 03/07/2025 7:05 AM EDT [facility] MPV 7.8 7 - 12 fL 03/07/2025 7:05 AM EDT [facility] Blood Venous blood / Unknown Venipuncture / Unknown 03/07/2025 6:26 AM EDT 03/07/2025 6:47 AM EDT 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 [place] [address], [place] [phone] * Magnesium (03/07/2025 6:26 AM EDT) MAGNESIUM 2.6 1.8 - 2.6 mg/dL 03/07/2025 7:24 AM EDT [facility] Blood Venous blood / Unknown Venipuncture / Unknown 03/07/2025 6:26 AM EDT 03/07/2025 6:47 AM EDT 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 [place] [address], [place] [phone] * ABO Rh Repeat (03/07/2025 6:00 AM EDT) ABO A 03/07/2025 4:[address] [facility] RH Positive 03/07/2025 4:[address] [facility] 03/07/2025 6:00 AM EDT 03/07/2025 4:34 PM EDT [facility] ORDERABLE S Final Result [facility] [address] [place] [address], [place] * (ABNORMAL) APTT (03/06/2025 10:05 PM EDT) Pathologist [facility] APTT >150(HH) 26 - 37 sec 03/06/2025 11:07 PM EDT [facility] Blood Venous blood / Unknown Venipuncture / Unknown 03/06/2025 10:05 PM EDT 03/06/2025 10:13 PM EDT Dario Burris MD LAB BLOOD ORDERABLES Final Resul t Performing Organization Address City/[facility]/ZIP Co de Phone Number [facility] [address] [place] [address], [place] [phone] * (ABNORMAL) Anti XA unfractionated heparin (03/06/2025 8:29 PM EDT) Pathologist [facility] ANTI XA UFH >2.00(HH) 0.30 - 0.70 IU/mL 03/06/2025 11:07 PM EDT [facility] Comment: Optimal time for testing is 6 hrs post dosage This test is specific for monitoring patients on UFH, and is not recommended for use with other Anti-Xa medications. Blood Venous blood / Unknown Venipuncture / Unknown 03/06/2025 8:29 PM EDT 03/06/2025 8:37 PM EDT Eleni Harding STUDENT TRUCK DRIVER-ASSISTANT [employer] LAB BLOOD ORDERABLES Fi nal Result [facility] [address] [place] [address], [place] [phone] * (ABNORMAL) Protime & INR (03/06/2025 2:01 PM EDT) PROTIME 47.8(H) 9.8 - 13.2 sec 03/06/2025 2:51 PM EDT [facility] INR 4.2(HH) 0.9 - 1.2 03/06/2025 2:51 PM EDT [facility] Blood Venous blood / Unknown Venipuncture / Unknown 03/06/2025 2:01 PM EDT 03/06/2025 2:08 PM EDT us Eleni Harding STUDENT TRUCK DRIVER-ASSISTANT [employer] LAB BLOOD ORDERABLES Fi nal Result [facility] [address] [place] [address], [place] [phone] * APTT (03/06/2025 2:01 PM EDT) APTT 33 26 - 37 sec 03/06/2025 2:51 PM EDT [facility] Blood Venous blood / Unknown Venipuncture / Unknown 03/06/2025 2:01 PM EDT 03/06/2025 2:08 PM EDT us Eleni Harding STUDENT TRUCK DRIVER-ASSISTANT [employer] LAB BLOOD ORDERABLES Fi nal Result [facility] [address] [place] [address], [place] [phone] * Platelet count (03/06/2025 2:01 PM EDT) Platelet Count 366 150 - 450 X10E9/L 03/06/2025 2:36 PM EDT [facility] MPV 7.5 7 - 12 fL 03/06/2025 2:36 PM EDT [facility] Blood Venous blood / Unknown Venipuncture / Unknown 03/06/2025 2:01 PM EDT 03/06/2025 2:08 PM EDT us Lawrencea Joie Harding STUDENT TRUCK DRIVER-ASSISTANT [employer] LAB BLOOD ORDERABLES Fi nal Result [facility] [address] [place] [address], [place] [phone] * (ABNORMAL) Hemoglobin (03/06/2025 2:01 PM EDT) Hemoglobin 11.2(L) 11.7 - 15.5 g/dL 03/06/2025 2:36 PM EDT [facility] Blood Venous blood / Unknown Venipuncture / Unknown 03/06/2025 2:01 PM EDT 03/06/2025 2:08 PM EDT Lawrencea Joie Harding STUDENT TRUCK DRIVER-ASSISTANT [employer] LAB BLOOD ORDERABLES Fi nal Result [facility] [address] [place] [address], [place] [phone] * X-ray chest 1 view (03/06/2025 1:29 PM EDT) Anatomical Region Laterality Modality Body, Chest N/A Computed Radiogr aphy 03/06/2025 1:33 PM EDT Narrative 03/06/2025 1:36 PM EDT History: Congestive heart failure Comparison is made with 02/18/2025. FINDINGS: Single frontal chest radiograph demonstrates that the heart, mediastinum, and steven are grossly on changed despite low lung volumes. Strandy opacities at the lung bases may be atelectasis. A small nodular opacity is superimposed over the left anterior second and in the left posterior fifth rib and was not evident on the prior study. This is likely due to one of the nodules mentioned on the 02/25/2025 CT report. There is blunting of the lateral costophrenic sulci and small effusions cannot be excluded IMPRESSION: No obvious new acute chest disease on radiograph obtained the low lung volumes. Please see above Finalized by Abhi Coelho MD on 03/06/2025 1:36 PM Procedure Note Luis Coelho MD - 03/06/2025 History: Congestive heart failure Comparison is made with 02/18/2025. FINDINGS: Single frontal chest radiograph demonstrates that the heart, mediastinum,and steven are grossly on changed despite low lung volumes. Strandyopacities at the lung bases may be atelectasis. A small nodular opacity issuperimposed over the left anterior second and in the left posterior fifthrib and was not evident on the prior study. This is likely due to one of thenodules mentioned on the 02/25/2025 CT report. There is blunting of thelateral costophrenic sulci and small effusions cannot be excluded IMPRESSION: No obvious new acute chest disease on radiograph obtained the low lungvolumes. Please see above Finalized by Abhi Coelho MD on 03/06/2025 1:36 PM us Brenda Hayes MD IMG DIAGNOSTIC IMAGING ORDERABL ES Final Result * Urine Creatinine,random (03/06/2025 12:41 PM EDT) URINE CREATININE,RDM 196.97 mg/dL 03/06/2025 2:14 PM EDT [facility] Urine Urine / Unknown 03/06/2025 1 2:41 PM EDT 03/06/2025 12:53 PM EDT us Brenda Hayes MD URINE ORDERABLES Final Result [facility] [address] [place] [address], [place] [phone] * (ABNORMAL) Urinalysis (03/06/2025 12:41 PM EDT) COLOR Yellow Yellow 03/06/2025 2:31 PM EDT [facility] TURBIDITY Hazy(A) Clear 03/06/2025 2:31 PM EDT [facility] SPECIFIC GRAVITY 1.023 1.003 - 1.035 03/06/2025 2:31 PM EDT [facility] NITRITE Negative Negative 03/06/2025 2:31 PM EDT [facility] PH,URINE 6.0 5.0 - 8.5 03/06/2025 2:31 PM EDT [facility] LEUKOCYTE ESTERASE Small(A) Negative 03/06/2025 2:31 PM EDT [facility] PROTEIN 50 mg/dL(A) Negative 03/06/2025 2:31 PM EDT [facility] KETONES (URINE) 20 mg/dL(A) Negative 03/06/20 2:31 PM EDT [facility] UROBILINOGEN <1.1 eu/dL <1.1 eu/dL 03/06/2025 2:31 PM EDT [facility] BILIRUBIN (URINE) Negative Negative 03/06/2025 2:31 PM EDT [facility] BLOOD/HGB Large(A) Negative 03/06/2025 2:31 PM EDT [facility] CELLULAR CASTS 3(H) <=0 03/06/2025 2:31 PM EDT [facility] GRANULAR CASTS 26(H) <=0 03/06/2025 2:31 PM EDT [facility] HYALINE CASTS 23(H) 0 - 2 03/06/2025 2:31 PM EDT [facility] MUCOUS Present(A) None 03/06/2025 2:31 PM EDT [facility] R.B.CELLS 197(H) 0 - 5 03/06/2025 2:31 PM EDT [facility] SQUAMOUS EPITHELIUM 17(H) 0 - 5 03/06/2025 2:31 PM EDT [facility] W.B.CELLS 25(H) 0 - 5 03/06/2025 2:31 PM EDT [facility] GLUCOSE (URINE) Negative Negative 2:31 PM EDT [facility] Urine Urine specimen collection, clean catch / Unknown 03/06/2025 12:41 PM EDT 03/06/2025 12:53 PM EDT us Brenda Hayes MD URINE ORDERABLES Final Result [facility] [address] [place] [address], [place] [phone] * Urea random, urine (03/06/2025 12:41 PM EDT) URINE UREA NITROGEN,RANDO M 646 mg/dL 03/06/2025 2:14 PM EDT [facility] Urine Urine / Unknown 03/06/2025 1 2:41 PM EDT 03/06/2025 12:53 PM EDT us Brenda Hayes MD URINE ORDERABLES Final Result [facility] [address] [place] [address], [place] [phone] * Sodium, urine, random (03/06/2025 12:41 PM EDT) URINE SODIUM,RANDOM <10 mmol/L 03/06/2025 2:14 PM EDT [facility] Urine Urine / Unknown 03/06/2025 1 2:41 PM EDT 03/06/2025 12:53 PM EDT us Brenda Hayes MD URINE ORDERABLES Final Result [facility] [address] [place] [address], [place] [phone] * (ABNORMAL) Protein creat ratio (03/06/2025 12:41 PM EDT) URINE PROTEIN, RANDOM (MG/L) 490(H) <120 mg/L 03/06/2025 2:14 PM EDT [facility] URINE CREATININE,RDM 196.97 mg/dL 03/06/2025 2:14 PM EDT [facility] U/PRO/SCIENTOLOGIST RATIO CALC 0.25(H) <=0.20 03/06/2025 2:14 PM EDT [facility] Urine Urine / Unknown 03/06/2025 1 2:41 PM EDT 03/06/2025 12:53 PM EDT Narrative [facility] - 03/06/2025 2:14 PM EDT Nephrotic Syndrome is associated with ratios >3.5 us Brenda Hayes MD URINE ORDERABLES Final Result Performing Organization Address City/[facility]/ZIP Co de Phone Number [facility] [address] [place] [address], * Microalbumin - Albumin: Creatinine Urine Ratio (03/06/2025 12:41 PM EDT) URINE CREATININE,RDM 196.97 mg/dL 03/06/2025 2:14 PM EDT [facility] MALB/CREAT RATIO 9.1 0.0 - 30.0 mg/g 03/06/2025 2:14 PM EDT [facility] MICROALBUMIN, URINE 1.8 0.0 - 1.9 mg/dL 03/06/2025 2:14 PM EDT [facility] Urine Urine / Unknown 03/06/2025 1 2:41 PM EDT 03/06/2025 12:53 PM EDT us Brenda Hayes MD URINE ORDERABLES Final Result [facility] [address] [place] [address], [place] [phone] * CT abdomen and pelvis without contrast (03/06/2025 11:13 AM EDT) Anatomical Region Laterality Modality Body, Abdomen, Body Covera N/A Compu oscar Tomography 03/06/2025 11:4 5 AM EDT Narrative 03/06/2025 12:[address] ABDOMEN AND PELVIS WO CONT CLINICAL INDICATION: Hydronephrosis; OBS uropathy, Abd distension . COMPARISON STUDY: 02/24/2025. TECHNIQUE: CT scan of the abdomen and pelvis performed without IV or PO contrast. Coronal and sagittal reformats generated and reviewed. FINDINGS: Lack of intravenous contrast limits evaluation of the viscera and vessels. LOWER THORAX: Indeterminate bilateral lung base nodules. HEPATOBILIARY: No focal aggressive appearing hepatic lesions. No biliary ductal dilatation. Cholelithiasis. SPLEEN: Atrophic. PANCREAS: Grossly normal for technique. ADRENALS: No exophytic adrenal nodules. KIDNEYS/URETERS: Redemonstrated 2.2 cm right renal mass lesion. No obstructive renal calculus. No collecting system dilatation. Bladder: Underdistended, limiting evaluation. PELVIC ORGANS: Similar appearance of a 20 cm cystic pelvic lesion, reportedly rectal origin adenocarcinoma. GI TRACT: Colonic dilatation with transition at the sigmoid junction. LYMPH NODES: 1.1 cm mesorectal node versus pelvic wall deposit. VESSELS: No abdominal aortic aneurysm. BONES AND SOFT TISSUES: Few sclerotic pelvic lesions. PERITONEUM/RETROPERITONEUM: Small volume free fluid. Multiple pelvic wall deposits including (series 2) -Image 56, 2.7 x 2.0 cm, left pelvic sidewall, -Image 48, 1.3 cm, left anterior peritoneum -Image 28, 1.4 x 1.0 cm, left anterior peritoneum IMPRESSION: * Colonic dilatation with transition at the sigmoid junction. Concern for obstruction from the known large rectal mass vs multicentric colorectal carcinoma. Postprocedural ileus or colonic pseudoobstruction could appear similarly in the appropriate clinical setting. * Similar appearance of a 20 cm cystic pelvic lesion, recently characterized as rectal adenocarcinoma. * Peritoneal carcinomatosis. * Indeterminate bilateral lung base pulmonary nodules, presumed metastatic. * Few sclerotic pelvic lesions may reflect additional osseous metastases. * Mild right hydroureteronephrosis, likely secondary to pelvic mass effect on the ureter. * Redemonstrated 2.2 cm right interpolar renal mass lesion concerning for RCC. All CT scans at this facility use dose modulation, iterative reconstruction, and/or weight based dosing when appropriate to reduce radiation dose to as low as reasonably achievable. Clinically significant results were instructed to call for clinical service on 03/06/2025 at 12:04 PM. This will be documented in [facility] results tracking once complete. Finalized by Amari Mcgregor on 03/06/2025 12:04 PM Procedure Note Amari Mcgregor MD - 03/06/2025 CT ABDOMEN AND PELVIS WO CONT CLINICAL INDICATION: Hydronephrosis; OBS uropathy, Abd distension . COMPARISON STUDY: 02/24/2025. TECHNIQUE: CT scan of the abdomen and pelvis performed without IV or POcontrast. Coronal and sagittal reformats generated and reviewed. FINDINGS: Lack of intravenous contrast limits evaluation of the viscera andvessels. LOWER THORAX: Indeterminate bilateral lung base nodules. HEPATOBILIARY: No focal aggressive appearing hepatic lesions. No biliaryductal dilatation. Cholelithiasis. SPLEEN: Atrophic. PANCREAS: Grossly normal for technique. ADRENALS: No exophytic adrenal nodules. KIDNEYS/URETERS: Redemonstrated 2.2 cm right renal mass lesion. Noobstructive renal calculus. No collecting system dilatation. Bladder: Underdistended, limiting evaluation. PELVIC ORGANS: Similar appearance of a 20 cm cystic pelvic lesion,reportedly rectal origin adenocarcinoma. GI TRACT: Colonic dilatation with transition at the sigmoid junction. LYMPH NODES: 1.1 cm mesorectal node versus pelvic wall deposit. VESSELS: No abdominal aortic aneurysm. BONES AND SOFT TISSUES: Few sclerotic pelvic lesions. PERITONEUM/RETROPERITONEUM: Small volume free fluid. Multiple pelvic walldeposits including (series 2) -Image 56, 2.7 x 2.0 cm, left pelvic sidewall, -Image 48, 1.3 cm, left anterior peritoneum -Image 28, 1.4 x 1.0 cm, left anterior peritoneum IMPRESSION: * Colonic dilatation with transition at the sigmoid junction. Concern forobstruction from the known large rectal mass vs multicentric colorectalcarcinoma. Postprocedural ileus or colonic pseudoobstruction could appearsimilarly in the appropriate clinical setting. * Similar appearance of a 20 cm cystic pelvic lesion, recentlycharacterized as rectal adenocarcinoma. * Peritoneal carcinomatosis. * Indeterminate bilateral lung base pulmonary nodules, presumedmetastatic. * Few sclerotic pelvic lesions may reflect additional osseousmetastases. * Mild right hydroureteronephrosis, likely secondary to pelvic masseffect on the ureter. * Redemonstrated 2.2 cm right interpolar renal mass lesion concerning forRCC. All CT scans at this facility use dose modulation, iterativereconstruction, and/or weight based dosing when appropriate to reduceradiation dose to as low as reasonably achievable. Clinically significant results were instructed to call for clinicalservice on 03/06/2025 at 12:04 PM. This will be documented in [employer] resultstracking once complete. Finalized by Amari Mcgregor on 03/06/2025 12:04 PM us Brenda Hayes MD IMG CT ORDERABLES Final Result * (ABNORMAL) Uric acid (03/06/2025 5:36 AM EDT) URIC ACID 8.0(H) 2.6 - 7.2 mg/dL 03/06/2025 10:23 AM EDT [facility] Blood Venous blood / Unknown Venipuncture / Unknown 03/06/2025 5:36 AM EDT 03/06/2025 6:02 AM EDT us Brenda Hayes MD LAB BLOOD ORDERABLES Final Resu lt [facility] [address] [place] [address], [place] [phone] * (ABNORMAL) CK Total (03/06/2025 5:36 AM EDT) CPK 18(L) 24 - 170 U/L 03/06/2025 11:22 AM EDT [facility] Blood Venous blood / Unknown Venipuncture / Unknown 03/06/2025 5:36 AM EDT 03/06/2025 6:02 AM EDT us Brenda Hayes MD LAB BLOOD ORDERABLES Final Resu lt [facility] [address] [place] [address], * B-type natriuretic peptide (03/06/2025 5:36 AM EDT) BNP 34 <=100 pg/mL 03/06/2025 11:51 AM EDT [facility] Blood Venous blood / Unknown Venipuncture / Unknown 03/06/2025 5:36 AM EDT 03/06/2025 6:02 AM EDT us Brenda Hayes MD LAB BLOOD ORDERABLES Final Resu lt [facility] [address] [place] [address], * (ABNORMAL) Basic Metabolic Panel (03/06/2025 5:36 AM EDT) SODIUM 136 134 - 146 mmol/L 03/06/2025 6:35 AM EDT [facility] POTASSIUM 4.2 3.5 - 5.0 mmol/L 03/06/2025 6:35 AM EDT [facility] CHLORIDE 104 98 - 109 mmol/L 03/06/2025 6:35 AM EDT [facility] CARBON DIOXIDE 18(L) 22 - 32 mmol/L 03/06/2025 6:35 AM EDT [facility] ANION GAP 14 5 - 15 mmol/L 03/06/2025 6:35 AM EDT [facility] BLOOD UREA NITROGEN 33(H) 5 - 27 mg/dL 03/06/2025 6:35 AM EDT [facility] CREATININE 1.22(H) 0.40 - 1.00 mg/dL 03/06/2025 6:35 AM EDT [facility] Comment:METHOD TRACEABLE TO IDIA STANDARD GLUCOSE 105(H) 65 - 99 mg/dL 03/06/2025 6:35 AM EDT [facility] CALCIUM 9.2 8.5 - 10.5 mg/dL 03/06/2025 6:35 AM EDT [facility] EGFR Non-Race Dependent 48(L) >=60 ml/min/1.7 3sq.m 03/06/2025 6:35 AM EDT [facility] Comment: Reported eGFR is based on the CKD-EPI 2020 equation that does not use a race coefficient. Blood Venous blood / Unknown Venipuncture / Unknown 03/06/2025 5:36 AM EDT 03/06/2025 6:02 AM EDT 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 [place] [address], * (ABNORMAL) CBC without diff (03/06/2025 5:36 AM EDT) WBC 15.4(H) 4 - 11 x10E9/L 03/06/2025 6:20 AM EDT [facility] RBC Count 4.87 3.8 - 5.2 X10E12/L 03/06/2025 6:20 AM EDT [facility] Hemoglobin 11.2(L) 11.7 - 15.5 g/dL 03/06/2025 6:20 AM EDT [facility] Hematocrit 35.8 35 - 47 % 03/06/2025 6:20 AM EDT [facility] MCV 74(L) 80 - 100 fL 03/06/2025 6:20 AM EDT [facility] MCH 23.0(L) 27 - 34 pg 03/06/2025 6:20 AM EDT [facility] MCHC 31.3(L) 32 - 36 g/dL 03/06/2025 6:20 AM EDT [facility] RDW 20.6(H) 11.5 - 15 % 03/06/2025 6:20 AM EDT [facility] Platelet Count 358 150 - 450 X10E9/L 03/06/2025 6:20 AM EDT [facility] MPV 7.4 7 - 12 fL 03/06/2025 6:20 AM EDT [facility] Blood Venous blood / Unknown Venipuncture / Unknown 03/06/2025 5:36 AM EDT 03/06/2025 6:02 AM EDT Neelima Ta STUDENT TRUCK DRIVER-ASSISTANT [employer] LAB BLOOD ORDERABLES Fi nal Result [facility] [address] [place] [address], [place] [phone] * Magnesium (03/06/2025 5:36 AM EDT) Pathologist [facility] MAGNESIUM 2.6 1.8 - 2.6 mg/dL 03/06/2025 6:35 AM EDT [facility] Blood Venous blood / Unknown Venipuncture / Unknown 03/06/2025 5:36 AM EDT 03/06/2025 6:02 AM EDT Neelima Ta STUDENT TRUCK DRIVER-ASSISTANT [employer] LAB BLOOD ORDERABLES Fi nal Result [facility] [address] [place] [address], [place] [phone] * (ABNORMAL) Anti XA unfractionated heparin (03/05/2025 12:46 PM EDT) ANTI XA UFH 1.59(HH) 0.30 - 0.70 IU/mL 03/05/2025 1:24 PM EDT [facility] Comment: Optimal time for testing is 6 hrs post dosage This test is specific for monitoring patients on UFH, and is not recommended for use with other Anti-Xa medications. Blood Venous blood / Unknown Venipuncture / Unknown 03/05/2025 12:46 PM EDT 03/05/2025 1:03 PM EDT us Dario Burris MD LAB BLOOD ORDERABLES Final Resul t [facility] [address] [place] [address], [place] [phone] * (ABNORMAL) Basic Metabolic Panel (03/05/2025 4:03 AM EDT) SODIUM 138 134 - 146 mmol/L 03/05/2025 4:55 AM EDT [facility] POTASSIUM 4.0 3.5 - 5.0 mmol/L 03/05/2025 4:55 AM EDT [facility] CHLORIDE 106 98 - 109 mmol/L 03/05/2025 4:55 AM EDT [facility] CARBON DIOXIDE 17(L) 22 - 32 mmol/L 03/05/2025 4:55 AM EDT [facility] ANION GAP 15 5 - 15 mmol/L 03/05/2025 4:55 AM EDT [facility] BLOOD UREA NITROGEN 23 5 - 27 mg/dL 03/05/2025 4:55 AM EDT [facility] CREATININE 0.95 0.40 - 1.00 mg/dL 03/05/2025 4:55 AM EDT [facility] Comment:METHOD TRACEABLE TO IDMS STANDARD GLUCOSE 123(H) 65 - 99 mg/dL 03/05/2025 4:55 AM EDT [facility] CALCIUM 9.2 8.5 - 10.5 mg/dL 03/05/2025 4:55 AM EDT [facility] EGFR Non-Race Dependent 65 >=60 ml/min/1.7 3sq.m 03/05/2025 4:55 AM EDT [facility] Comment: Reported eGFR is based on the CKD-EPI 2020 equation that does not use a race coefficient. Blood Venous blood / Unknown Venipuncture / Unknown 03/05/2025 4:03 AM EDT 03/05/2025 4:23 AM EDT us Neelima Ta APRN-ASSISTANT [employer] LAB BLOOD ORDERABLES Fi nal Result Performing Organization Address City/[facility]/ZIP Co de Phone Number [facility] [address] [place] [address], [place] [phone] * (ABNORMAL) Anti XA unfractionated heparin (03/05/2025 4:03 AM EDT) ANTI XA UFH <0.04(L) 0.30 - 0.70 IU/mL 03/05/2025 5:06 AM EDT [facility] Blood Venous blood / Unknown Venipuncture / Unknown 03/05/2025 4:03 AM EDT 03/05/2025 4:23 AM EDT us Dario Burris MD LAB BLOOD ORDERABLES Final Resul t Performing Organization Address [facility] Co de Phone Number [facility] [address] [place] [address], [place] [phone] * (ABNORMAL) CBC without diff (03/05/2025 4:03 AM EDT) WBC 16.0(H) 4 - 11 x10E9/L 03/05/2025 4:35 AM EDT [facility] RBC Count 4.81 3.8 - 5.2 X10E12/L 03/05/2025 4:35 AM EDT [facility] Hemoglobin 10.8(L) 11.7 - 15.5 g/dL 03/05/2025 4:35 AM EDT [facility] Hematocrit 34.7(L) 35 - 47 % 03/05/2025 4:35 AM EDT [facility] MCV 72(L) 80 - 100 fL 03/05/2025 4:35 AM EDT [facility] MCH 22.4(L) 27 - 34 pg 03/05/2025 4:35 AM EDT [facility] MCHC 31.0(L) 32 - 36 g/dL 03/05/2025 4:35 AM EDT [facility] RDW 19.7(H) 11.5 - 15 % 03/05/2025 4:35 AM EDT [facility] Platelet Count 391 150 - 450 X10E9/L 03/05/2025 4:35 AM EDT [facility] MPV 7.1 7 - 12 fL 03/05/2025 4:35 AM EDT [facility] Blood Venous blood / Unknown Venipuncture / Unknown 03/05/2025 4:03 AM EDT 03/05/2025 4:23 AM EDT 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 [place] [address], * Magnesium (03/05/2025 4:03 AM EDT) MAGNESIUM 2.4 1.8 - 2.6 mg/dL 03/05/2025 4:55 AM EDT [facility] Blood Venous blood / Unknown Venipuncture / Unknown 03/05/2025 4:03 AM EDT 03/05/2025 4:23 AM EDT 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 [place] [id number], * Potassium (03/04/2025 9:12 PM EDT) [facility] POTASSIUM 4.1 3.5 - 5.0 mmol/L 03/04/2025 9:55 PM EDT [facility] Blood Venous blood / Unknown Venipuncture / Unknown 03/04/2025 9:12 PM EDT 03/04/2025 9:21 PM EDT us Dario Burris MD LAB BLOOD ORDERABLES Final Resul t Performing Organization Address City/[facility]/ZIP Co de Phone Number [facility] [address] [place] [address], * Anti XA unfractionated heparin (03/04/2025 9:12 PM EDT) [facility] ANTI XA UFH 0.40 0.30 - 0.70 IU/mL 03/04/2025 9:34 PM EDT [facility] Comment: Optimal time for testing is 6 hrs post dosage This test is specific for monitoring patients on UFH, and is not recommended for use with other Anti-Xa medications. Blood Venous blood / Unknown Venipuncture / Unknown 03/04/2025 9:12 PM EDT 03/04/2025 9:21 PM EDT us Dario Burris MD LAB BLOOD ORDERABLES Final Resul t Performing Organization Address City/[facility]/ZIP Co de Phone Number [facility] [address] [place] [address], * (ABNORMAL) Lead,Blood,Venipuncture (03/04/2025 1:54 PM EDT) [facility] LEAD, VENOUS 9.5(H) <3.5 mcg/dL 03/05/2025 11:22 AM EDT [facility] Comment: ADDITIONAL INFORMATION Testing performed by Inductively Coupled Plasma-Mass Spectrometry (ICP-MS). This test was developed and its performance characteristics determined by [facility] in a manner consistent with CLIA requirements. This test has not been cleared or approved by the U.S. Food and Drug Administration. Blood Venous blood / Unknown Venipuncture / Unknown 03/04/2025 1:54 PM EDT 03/04/2025 1:55 PM EDT us Dominga Calderon STUDENT TRUCK DRIVER-ASSISTANT [employer] LAB BLOOD ORDERABLES F inal Result [facility] [address] [place] [address], [place] * (ABNORMAL) Anti XA unfractionated heparin (03/04/2025 1:54 PM EDT) ANTI XA UFH 0.25(L) 0.30 - 0.70 IU/mL 03/04/2025 2:26 PM EDT [facility] Comment: Optimal time for testing is 6 hrs post dosage This test is specific for monitoring patients on UFH, and is not recommended for use with other Anti-Xa medications. Blood Venous blood / Unknown Venipuncture / Unknown 03/04/2025 1:54 PM EDT 03/04/2025 1:55 PM EDT us Dario Burris MD LAB BLOOD ORDERABLES Final Resul t Performing Organization Address City/[facility]/ZIP Co de Phone Number [facility] [address] [place] [address], [place] [phone] * (ABNORMAL) Basic Metabolic Panel (03/04/2025 7:16 AM EDT) SODIUM 138 134 - 146 mmol/L 03/04/2025 7:49 AM EDT [facility] POTASSIUM 3.6 3.5 - 5.0 mmol/L 03/04/2025 7:49 AM EDT [facility] CHLORIDE 105 98 - 109 mmol/L 03/04/2025 7:49 AM EDT [facility] CARBON DIOXIDE 18(L) 22 - 32 mmol/L 03/04/2025 7:49 AM EDT [facility] ANION GAP 15 5 - 15 mmol/L 03/04/2025 7:49 AM EDT [facility] BLOOD UREA NITROGEN 18 5 - 27 mg/dL 03/04/2025 7:49 AM EDT [facility] CREATININE 0.89 0.40 - 1.00 mg/dL 03/04/2025 7:49 AM EDT [facility] Comment:METHOD TRACEABLE TO IDIA STANDARD GLUCOSE 98 65 - 99 mg/dL 03/04/2025 7:49 AM EDT [facility] CALCIUM 8.6 8.5 - 10.5 mg/dL 03/04/2025 7:49 AM EDT [facility] EGFR Non-Race Dependent 71 >=60 ml/min/1.7 3sq.m 03/04/2025 7:49 AM EDT [facility] Comment: Reported eGFR is based on the CKD-EPI 2020 equation that does not use a race coefficient. Blood Venous blood / Unknown Venipuncture / Unknown 03/04/2025 7:16 AM EDT 03/04/2025 7:24 AM EDT 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 [place] [address], * (ABNORMAL) Anti XA unfractionated heparin (03/04/2025 7:16 AM EDT) ANTI XA UFH <0.04(L) 0.30 - 0.70 IU/mL 03/04/2025 7:40 AM EDT [facility] Blood Venous blood / Unknown Venipuncture / Unknown 03/04/2025 7:16 AM EDT 03/04/2025 7:24 AM EDT Deena Branch MD LAB BLOOD ORDERABLES Final Resul t [facility] [address] [place] [address], [place] [phone] * (ABNORMAL) CBC without diff (03/04/2025 7:16 AM EDT) WBC 16.5(H) 4 - 11 x10E9/L 03/04/2025 7:36 AM EDT [facility] RBC Count 4.73 3.8 - 5.2 X10E12/L 03/04/2025 7:36 AM EDT [facility] Hemoglobin 10.7(L) 11.7 - 15.5 g/dL 03/04/2025 7:36 AM EDT [facility] Hematocrit 34.1(L) 35 - 47 % 03/04/2025 7:36 AM EDT [facility] MCV 72(L) 80 - 100 fL 03/04/2025 7:36 AM EDT [facility] MCH 22.5(L) 27 - 34 pg 03/04/2025 7:36 AM EDT [facility] MCHC 31.3(L) 32 - 36 g/dL 03/04/2025 7:36 AM EDT [facility] RDW 19.7(H) 11.5 - 15 % 03/04/2025 7:36 AM EDT [facility] Platelet Count 355 150 - 450 X10E9/L 03/04/2025 7:36 AM EDT [facility] MPV 7.0 7 - 12 fL 03/04/2025 7:36 AM EDT [facility] Blood Venous blood / Unknown Venipuncture / Unknown 03/04/2025 7:16 AM EDT 03/04/2025 7:24 AM EDT us 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 [place] [address], * Magnesium (03/04/2025 7:16 AM EDT) Pathologist [facility] MAGNESIUM 2.4 1.8 - 2.6 mg/dL 03/04/2025 7:49 AM EDT [facility] Blood Venous blood / Unknown Venipuncture / Unknown 03/04/2025 7:16 AM EDT 03/04/2025 7:24 AM EDT 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 [place] [address], * (ABNORMAL) Basic Metabolic Panel (03/03/2025 4:36 AM EDT) [facility] SODIUM 136 134 - 146 mmol/L 03/03/2025 5:55 AM EDT [facility] POTASSIUM 3.8 3.5 - 5.0 mmol/L 03/03/2025 5:55 AM EDT [facility] CHLORIDE 106 98 - 109 mmol/L 03/03/2025 5:55 AM EDT [facility] CARBON DIOXIDE 18(L) 22 - 32 mmol/L 03/03/2025 5:55 AM EDT [facility] ANION GAP 12 5 - 15 mmol/L 03/03/2025 5:55 AM EDT [facility] BLOOD UREA NITROGEN 13 5 - 27 mg/dL 03/03/2025 5:55 AM EDT [facility] CREATININE 0.82 0.40 - 1.00 mg/dL 03/03/2025 5:55 AM EDT [facility] Comment:METHOD TRACEABLE TO IDMS STANDARD GLUCOSE 82 65 - 99 mg/dL 03/03/2025 5:55 AM EDT [facility] CALCIUM 8.4(L) 8.5 - 10.5 mg/dL 03/03/2025 5:55 AM EDT [facility] EGFR Non-Race Dependent 78 >=60 ml/min/1.7 3sq.m 03/03/2025 5:55 AM EDT [facility] Comment: Reported eGFR is based on the CKD-EPI 2020 equation that does not use a race coefficient. Blood Venous blood / Unknown Venipuncture / Unknown 03/03/2025 4:36 AM EDT 03/03/2025 5:19 AM EDT Neelima Ta STUDENT TRUCK DRIVER-ASSISTANT [employer] LAB BLOOD ORDERABLES Fi nal Result Performing Organization Address [facility]/ZIP Co de Phone Number [facility] [address] [place] [address], * Anti XA unfractionated heparin (03/03/2025 4:36 AM EDT) ANTI XA UFH 0.64 0.30 - 0.70 IU/mL 03/03/2025 5:55 AM EDT [facility] Comment: Optimal time for testing is 6 hrs post dosage This test is specific for monitoring patients on UFH, and is not recommended for use with other Anti-Xa medications. Blood Venous blood / Unknown Venipuncture / Unknown 03/03/2025 4:36 AM EDT 03/03/2025 5:19 AM EDT Deena Branch MD LAB BLOOD ORDERABLES Final Resul t [facility] [address] [place] [address], [place] [phone] * (ABNORMAL) CBC without diff (03/03/2025 4:36 AM EDT) WBC 12.8(H) 4 - 11 x10E9/L 03/03/2025 5:39 AM EDT [facility] RBC Count 4.34 3.8 - 5.2 X10E12/L 03/03/2025 5:39 AM EDT [facility] Hemoglobin 9.6(L) 11.7 - 15.5 g/dL 03/03/2025 5:39 AM EDT [facility] Hematocrit 30.9(L) 35 - 47 % 03/03/2025 5:39 AM EDT [facility] MCV 71(L) 80 - 100 fL 03/03/2025 5:39 AM EDT [facility] MCH 22.1(L) 27 - 34 pg 03/03/2025 5:39 AM EDT [facility] MCHC 31.1(L) 32 - 36 g/dL 03/03/2025 5:39 AM EDT [facility] RDW 19.1(H) 11.5 - 15 % 03/03/2025 5:39 AM EDT [facility] Platelet Count 367 150 - 450 X10E9/L 03/03/2025 5:39 AM EDT [facility] MPV 7.5 7 - 12 fL 03/03/2025 5:39 AM EDT [facility] Blood Venous blood / Unknown Venipuncture / Unknown 03/03/2025 4:36 AM EDT 03/03/2025 5:19 AM EDT 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 [place] [address], * Magnesium (03/03/2025 4:36 AM EDT) MAGNESIUM 2.2 1.8 - 2.6 mg/dL 03/03/2025 5:55 AM EDT [facility] Blood Venous blood / Unknown Venipuncture / Unknown 03/03/2025 4:36 AM EDT 03/03/2025 5:19 AM EDT 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 [place] [address], * PST TOP (03/02/2025 8:25 PM EDT) [employer] Auto Resulted 03/02/2025 10:01 PM EDT [facility] Blood Venous blood / Unknown 03/02/2025 8:25 PM EDT 03/02/2025 8:49 PM EDT Deena Branch MD LAB BLOOD ORDERABLES Final Resul t Performing Organization Address [facility] Co de Phone Number [facility] [address] [place] [address], * Anti XA unfractionated heparin (03/02/2025 8:25 PM EDT) [facility] ANTI XA UFH 0.66 0.30 - 0.70 IU/mL 03/02/2025 9:10 PM EDT [facility] Comment: Optimal time for testing is 6 hrs post dosage This test is specific for monitoring patients on UFH, and is not recommended for use with other Anti-Xa medications. Blood Venous blood / Unknown Venipuncture / Unknown 03/02/2025 8:25 PM EDT 03/02/2025 8:49 PM EDT Deena Branch MD LAB BLOOD ORDERABLES Final Resul t [facility] [address] [place] [address], * (ABNORMAL) Anti XA unfractionated heparin (03/02/2025 1:22 PM EDT) [facility] ANTI XA UFH 0.75(H) 0.30 - 0.70 IU/mL 03/02/2025 1:50 PM EDT [facility] Comment: Optimal time for testing is 6 hrs post dosage This test is specific for monitoring patients on UFH, and is not recommended for use with other Anti-Xa medications. Blood Venous blood / Unknown Venipuncture / Unknown 03/02/2025 1:22 PM EDT 03/02/2025 1:31 PM EDT us Deena Branch MD LAB BLOOD ORDERABLES Final Resul t [facility] [address] [place] [address], * (ABNORMAL) Basic Metabolic Panel (03/02/2025 6:44 AM EDT) SODIUM 137 134 - 146 mmol/L 03/02/2025 7:28 AM EDT [facility] POTASSIUM 4.0 3.5 - 5.0 mmol/L 03/02/2025 7:28 AM EDT [facility] CHLORIDE 108 98 - 109 mmol/L 03/02/2025 7:28 AM EDT [facility] CARBON DIOXIDE 22 22 - 32 mmol/L 03/02/2025 7:28 AM EDT [facility] ANION GAP 7 5 - 15 mmol/L 03/02/2025 7:28 AM EDT [facility] BLOOD UREA NITROGEN 12 5 - 27 mg/dL 03/02/2025 7:28 AM EDT [facility] CREATININE 0.84 0.40 - 1.00 mg/dL 03/02/2025 7:28 AM EDT [facility] Comment:METHOD TRACEABLE TO IDMS STANDARD GLUCOSE 96 65 - 99 mg/dL 03/02/2025 7:28 AM EDT [facility] CALCIUM 7.9(L) 8.5 - 10.5 mg/dL 03/02/2025 7:28 AM EDT [facility] EGFR Non-Race Dependent 76 >=60 ml/min/1.7 3sq.m 03/02/2025 7:28 AM EDT [facility] Comment: Reported eGFR is based on the CKD-EPI 2020 equation that does not use a race coefficient. Blood Venous blood / Unknown Venipuncture / Unknown 03/02/2025 6:44 AM EDT 03/02/2025 6:54 AM EDT Neelima Ta STUDENT TRUCK DRIVER-ASSISTANT [employer] LAB BLOOD ORDERABLES Fi nal Result Performing Organization Address City/[facility]/ZIP Co de Phone Number [facility] [address] [place] [address], * (ABNORMAL) Anti XA unfractionated heparin (03/02/2025 6:44 AM EDT) ANTI XA UFH 0.76(H) 0.30 - 0.70 IU/mL 03/02/2025 7:10 AM EDT [facility] Comment: Optimal time for testing is 6 hrs post dosage This test is specific for monitoring patients on UFH, and is not recommended for use with other Anti-Xa medications. Blood Venous blood / Unknown Venipuncture / Unknown 03/02/2025 6:44 AM EDT 03/02/2025 6:55 AM EDT Tyson Ritchie STUDENT TRUCK DRIVER-ASSISTANT [employer] LAB BLOOD ORDERABLES Final Result Performing Organization Address City/[facility] Co de Phone Number [facility] [address] [place] [address], * (ABNORMAL) CBC without diff (03/02/2025 6:44 AM EDT) WBC 11.8(H) 4 - 11 x10E9/L 03/02/2025 7:11 AM EDT [facility] RBC Count 4.11 3.8 - 5.2 X10E12/L 03/02/2025 7:11 AM EDT [facility] Hemoglobin 8.9(L) 11.7 - 15.5 g/dL 03/02/2025 7:11 AM EDT [facility] Hematocrit 29.1(L) 35 - 47 % 03/02/2025 7:11 AM EDT [facility] MCV 71(L) 80 - 100 fL 03/02/2025 7:11 AM EDT [facility] MCH 21.5(L) 27 - 34 pg 03/02/2025 7:11 AM EDT [facility] MCHC 30.4(L) 32 - 36 g/dL 03/02/2025 7:11 AM EDT [facility] RDW 19.5(H) 11.5 - 15 % 03/02/2025 7:11 AM EDT [facility] Platelet Count 341 150 - 450 X10E9/L 03/02/2025 7:11 AM EDT [facility] MPV 6.9(L) 7 - 12 fL 03/02/2025 7:11 AM EDT [facility] Blood Venous blood / Unknown Venipuncture / Unknown 03/02/2025 6:44 AM EDT 03/02/2025 6:55 AM EDT 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 [address], * Magnesium (03/02/2025 6:44 AM EDT) MAGNESIUM 2.1 1.8 - 2.6 mg/dL 03/02/2025 7:28 AM EDT [facility] Blood Venous blood / Unknown Venipuncture / Unknown 03/02/2025 6:44 AM EDT 03/02/2025 6:54 AM EDT Neelima Ta STUDENT TRUCK DRIVER-ASSISTANT [employer] LAB BLOOD ORDERABLES Fi nal Result [facility] [address] [place] [address], [place] [phone] * Anti XA unfractionated heparin (03/01/2025 10:55 PM EDT) [facility] ANTI XA UFH 0.60 0.30 - 0.70 IU/mL 03/01/2025 11:38 PM EDT [facility] Comment: Optimal time for testing is 6 hrs post dosage This test is specific for monitoring patients on UFH, and is not recommended for use with other Anti-Xa medications. Blood Venous blood / Unknown Venipuncture / Unknown 03/01/2025 10:55 PM EDT 03/01/2025 11:19 PM EDT Neelima Ta [facility] LAB BLOOD ORDERABLES nal Result Performing Organization Address [facility]/ZIP Co de Phone Number [facility] [address] [place] [address] [address] [place] [address], * (ABNORMAL) Anti XA unfractionated heparin (03/01/2025 1:53 PM EDT) [facility] ANTI XA UFH 0.88(H) 0.30 - 0.70 IU/mL 03/01/2025 2:52 PM EDT [facility] Comment: Optimal time for testing is 6 hrs post dosage This test is specific for monitoring patients on UFH, and is not recommended for use with other Anti-Xa medications. Blood Venous blood / Unknown Venipuncture / Unknown 03/01/2025 1:53 PM EDT 03/01/2025 2:18 PM EDT Neelima Ta [facility] LAB BLOOD ORDERABLES Fi nal Result [facility] [address] [place] [address] [address] [place] [address], * (ABNORMAL) Basic Metabolic Panel (03/01/2025 6:09 AM EDT) [facility] SODIUM 138 134 - 146 mmol/L 03/01/2025 7:02 AM EDT [facility] POTASSIUM 4.6 3.5 - 5.0 mmol/L 03/01/2025 7:02 AM EDT [facility] CHLORIDE 107 98 - 109 mmol/L 03/01/2025 7:02 AM EDT [facility] CARBON DIOXIDE 24 22 - 32 mmol/L 03/01/2025 7:02 AM EDT [facility] ANION GAP 7 5 - 15 mmol/L 03/01/2025 7:02 AM EDT [facility] BLOOD UREA NITROGEN 15 5 - 27 mg/dL 03/01/2025 7:02 AM EDT [facility] CREATININE 0.86 0.40 - 1.00 mg/dL 03/01/2025 7:02 AM EDT [facility] Comment:METHOD TRACEABLE TO IDMS STANDARD GLUCOSE 92 65 - 99 mg/dL 03/01/2025 7:02 AM EDT [facility] CALCIUM 8.0(L) 8.5 - 10.5 mg/dL 03/01/2025 7:02 AM EDT [facility] EGFR Non-Race Dependent 74 >=60 ml/min/1.7 3sq.m 03/01/2025 7:02 AM EDT [facility] Comment: Reported eGFR is based on the CKD-EPI 2020 equation that does not use a race coefficient. Blood Venous blood / Unknown Venipuncture / Unknown 03/01/2025 6:09 AM EDT 03/01/2025 6:29 AM EDT 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 [place] [address], * (ABNORMAL) Anti XA unfractionated heparin (03/01/2025 6:09 AM EDT) ANTI XA UFH 0.79(H) 0.30 - 0.70 IU/mL 03/01/2025 6:48 AM EDT [facility] Comment: Optimal time for testing is 6 hrs post dosage This test is specific for monitoring patients on UFH, and is not recommended for use with other Anti-Xa medications. Blood Venous blood / Unknown Venipuncture / Unknown 03/01/2025 6:09 AM EDT 03/01/2025 6:29 AM EDT us Atria Chau STUDENT TRUCK DRIVER-ASSISTANT [employer] LAB BLOOD ORDERABLES Final Result [facility] [address] [place] [address], * (ABNORMAL) CBC without diff (03/01/2025 6:09 AM EDT) WBC 10.9 4 - 11 x10E9/L 03/01/2025 6:41 AM EDT [facility] RBC Count 3.97 3.8 - 5.2 X10E12/L 03/01/2025 6:41 AM EDT [facility] Hemoglobin 8.7(L) 11.7 - 15.5 g/dL 03/01/2025 6:41 AM EDT [facility] Hematocrit 27.6(L) 35 - 47 % 03/01/2025 6:41 AM EDT [facility] MCV 70(L) 80 - 100 fL 03/01/2025 6:41 AM EDT [facility] MCH 21.8(L) 27 - 34 pg 03/01/2025 6:41 AM EDT [facility] MCHC 31.5(L) 32 - 36 g/dL 03/01/2025 6:41 AM EDT [facility] RDW 18.9(H) 11.5 - 15 % 03/01/2025 6:41 AM EDT [facility] Platelet Count 313 150 - 450 X10E9/L 03/01/2025 6:41 AM EDT [facility] MPV 7.3 7 - 12 fL 03/01/2025 6:41 AM EDT [facility] Blood Venous blood / Unknown Venipuncture / Unknown 03/01/2025 6:09 AM EDT 03/01/2025 6:29 AM EDT Neelima Ta STUDENT TRUCK DRIVER-ASSISTANT [employer] LAB BLOOD ORDERABLES Fi nal Result [facility] [address] [place] [address], [place] [phone] * Magnesium (03/01/2025 6:09 AM EDT) MAGNESIUM 2.3 1.8 - 2.6 mg/dL 03/01/2025 7:02 AM EDT [facility] Blood Venous blood / Unknown Venipuncture / Unknown 03/01/2025 6:09 AM EDT 03/01/2025 6:29 AM EDT Neelima Ta STUDENT TRUCK DRIVER-ASSISTANT [employer] LAB BLOOD ORDERABLES Fi nal Result Performing Organization Address City/[facility] Co de Phone Number [facility] [address] [place] [address] [address] [place] [address], [place] [phone] * Anti XA unfractionated heparin (03/01/2025 1:57 AM EDT) ANTI XA UFH 0.56 0.30 - 0.70 IU/mL 03/01/2025 3:11 AM EDT [facility] Comment: Optimal time for testing is 6 hrs post dosage This test is specific for monitoring patients on UFH, and is not recommended for use with other Anti-Xa medications. Blood Venous blood / Unknown Venipuncture / Unknown 03/01/2025 1:57 AM EDT 03/01/2025 2:31 AM EDT 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 [place] [address], [place] [phone] * Ultrasound pelvic with transvaginal (02/28/2025 5:29 PM EDT) Anatomical Region Laterality Modality Body, Pelvis Ultrasound 02/28/2025 6:56 PM EDT Narrative 02/28/2025 7:10 PM EDT US PELVIC WITH TRANSVAGINAL HISTORY: Ovarian mass COMPARISON: CT abdomen pelvis dated 02/24/2025 TECHNIQUE: Transabdominal and transvaginal sonographic evaluation of the pelvis. Transabdominal imaging performed to evaluate for extra adnexal pelvic pathology. Transvaginal imaging performed for better delineation of the adnexal and endometrial contents. Real time grayscale, color flow imaging, and duplex spectral Doppler waveform analysis was performed of the major arterial inflow and venous outflow structures of the pelvic mass with arterial and venous spectral waveforms obtained, documented, and reviewed in the setting of provided history. FINDINGS: Uterus: 5.3 x 3.3 x 1.6 cm Endometrial Thickness: 0.2 cm The uterus demonstrates appropriate size and echo pattern. The endometrium is unremarkable. The ovaries are not confidently identified as individual structures. There is a 18.2 x 16.3 x 11.2 cm, multiloculated, cystic and solid lesion in the pelvis, which demonstrates internal color flow, arterial waveforms, and venous waveforms. Color score: 4. Free fluid in the pelvis with low level echoes. On comparison CT abdomen pelvis, there was peritoneal nodularity. IMPRESSION: O-RADS US 5 (high risk): 18.2 cm cystic and solid lesion in the pelvis with ascites and peritoneal nodularity. Finalized by Jason Humphrey MD on 02/28/2025 7:10 PM Procedure Note Jason Humphrey MD - 02/28/2025 US PELVIC WITH TRANSVAGINAL HISTORY: Ovarian mass COMPARISON: CT abdomen pelvis dated 02/24/2025 TECHNIQUE: Transabdominal and transvaginal sonographic evaluation of thepelvis. Transabdominal imaging performed to evaluate for extra adnexalpelvic pathology. Transvaginal imaging performed for better delineationof the adnexal and endometrial contents. Real time grayscale, color flowimaging, and duplex spectral Doppler waveform analysis was performed of the majorarterial inflow and venous outflow structures of the pelvic mass witharterial and venous spectral waveforms obtained, documented, and reviewedin the setting of provided history. FINDINGS: Uterus: 5.3 x 3.3 x 1.6 cm Endometrial Thickness: 0.2 cm The uterus demonstrates appropriate size and echo pattern. Theendometrium is unremarkable. The ovaries are not confidently identified as individual structures. There is a 18.2 x 16.3 x 11.2 cm, multiloculated, cystic and solid lesionin the pelvis, which demonstrates internal color flow, arterial waveforms,and venous waveforms. Color score: 4. Free fluid in the pelvis with low level echoes. On comparison CT abdomenpelvis, there was peritoneal nodularity. IMPRESSION: O-RADS US 5 (high risk): 18.2 cm cystic and solid lesion in the pelviswith ascites and peritoneal nodularity. Finalized by Jason Humphrey MD on 02/28/2025 7:10 PM us Mariaelena Berumen MD IMG US ORDERABLES Final Result * IR paracentesis diagnostic treatment with guidance (02/28/2025 3:54 PM EDT) Anatomical Region Laterality Modality IR N/A X-Ray Angiograph y 02/28/2025 4:00 PM EDT Narrative 02/28/2025 4:00 PM EDT EXAM: ULTRASOUND-GUIDED PARACENTESIS CLINICAL HISTORY: abdominal ascitis. CONSENT: The risks and benefits of the procedure were explained to the patient signed written consent. PROCEDURE/FINDINGS: All four quadrant of the abdomen were evaluated with ultrasound which showed small amount of free fluid in the abdomen . The left lower quadrant was prepped and draped in a sterile fashion and the skin infiltrated with 1% lidocaine. Real time ultrasound guidance was used during the puncture of the peritoneal cavity with an 18-gauge Yueh needle under direct ultrasound needle visualization, and an ultrasound route sales representative image was obtained and saved in PACS. The catheter was connected to vacuum bottles, and approximately 1.8 liters of ludivina fluid was removed and submitted for analysis. The needle was removed and dressing placed. No immediate complications. Estimated blood loss: Minimal IMPRESSION: Ultrasound guided paracentesis with removal of 1800 mL of ludivina fluid. Finalized by Deena Palma MD on 02/28/2025 4:00 PM Procedure Note Deena Palma MD - 02/28/2025 EXAM: ULTRASOUND-GUIDED PARACENTESIS CLINICAL HISTORY: abdominal ascitis. CONSENT: The risks and benefits of the procedure were explained to thepatient signed written consent. PROCEDURE/FINDINGS: All four quadrant of the abdomen were evaluated with ultrasound whichshowed small amount of free fluid in the abdomen . The left lower quadrantwas prepped and draped in a sterile fashion and the skin infiltrated with1% lidocaine. Real time ultrasound guidance was used during the punctureof the peritoneal cavity with an 18-gauge Yueh needle under direct ultrasoundneedle visualization, and an ultrasound route sales representative image was obtainedand saved in PACS. The catheter was connected to vacuum bottles, andapproximately 1.8 liters of ludivina fluid was removed and submitted foranalysis. The needle was removed and dressing placed. No immediate complications. Estimated blood loss: Minimal IMPRESSION: Ultrasound guided paracentesis with removal of 1800 mL of ludivina fluid. Finalized by Deena Palma MD on 02/28/2025 4:00 PM Jose Carlos Day MD IMG IR ORDERABLES Final Result * IR percutaneous needle biopsy abdomen retroperitoneal (02/28/2025 3:51 PM EDT) Anatomical Region Laterality Modality IR N/A X-Ray Angiograph y 02/28/2025 4:00 PM EDT Narrative 02/28/2025 4:02 PM EDT EXAM: CT-guided percutaneous core biopsy of anterior peritoneal nodule CLINICAL INDICATION: Peritoneal masses unclear etiology CONSENT: The risks, benefits, and expectations of the procedure were explained to the patient who signed a written consent. TIME OUT: Ball Protocol Time Out Verification performed. ANESTHESIA: 100 mcg of fentanyl was given for pain control 1% Lidocaine used as local anesthetic. TECHNIQUE:All CT scans at this facility use dose modulation, iterative reconstruction, and/or weight based dosing when appropriate to reduce radiation dose to as low as reasonably achievable. PROCEDURE: In the supine position, the peritoneal nodule was evaluated with CT which revealed a good window for biopsy. The overlying skin was prepped and draped in a sterile fashion and infiltrated with 1% lidocaine. Using intermittent CT guidance, a 17-gauge guiding needle was advanced into the targeted structure and a route sales representative image was obtained and saved in PACS. A coaxial 18-gauge core biopsy needle was then advanced through the guiding needle, and multiple 18-gauge core biopsies were obtained and submitted in formalin. Gelfoam tract embolization was performed. The needle was removed and hemostasis achieved by manual compression. Postprocedural scanning demonstrates expected post biopsy changes and no immediate complication. A dressing was placed. The patient tolerated the procedure well. Estimated blood loss: Minimal Complications: None. IMPRESSION: Successful CT-guided core needle biopsy of peritoneal nodule. Finalized by Deena Palma MD on 02/28/2025 4:02 PM Procedure Note Deena Palma MD - 02/28/2025 EXAM: CT-guided percutaneous core biopsy of anterior peritoneal nodule CLINICAL INDICATION: Peritoneal masses unclear etiology CONSENT: The risks, benefits, and expectations of the procedure wereexplained to the patient who signed a written consent. TIME OUT: Ball Protocol Time Out Verification performed. ANESTHESIA: 100 mcg of fentanyl was given for pain control 1% Lidocaine used as localanesthetic. TECHNIQUE:All CT scans at this facility use dose modulation, iterativereconstruction, and/or weight based dosing when appropriate to reduceradiation dose to as low as reasonably achievable. PROCEDURE: In the supine position, the peritoneal nodule was evaluated with CT whichrevealed a good window for biopsy. The overlying skin was prepped anddraped in a sterile fashion and infiltrated with 1% lidocaine. Usingintermittent CT guidance, a 17-gauge guiding needle was advanced into thetargeted structure and a route sales representative image was obtained and saved in PACS. Acoaxial 18-gauge core biopsy needle was then advanced through the guidingneedle, and multiple 18-gauge core biopsies were obtained and submitted informalin. Gelfoam tract embolization was performed. The needle was removedand hemostasis achieved by manual compression. Postprocedural scanningdemonstrates expected post biopsy changes and no immediate complication.A dressing was placed. The patient tolerated the procedure well. Estimated blood loss: Minimal Complications: None. IMPRESSION: Successful CT-guided core needle biopsy of peritoneal nodule. Finalized by Deena Palma MD on 02/28/2025 4:02 PM us Mariaelena Berumen MD IMG IR ORDERABLES Final Result * Reflexed Body Fluid Cell Count Differential (02/28/2025 1:25 PM EDT) Neutrophils, Fluid 60 % 02/28/2025 4:00 PM EDT [facility] Lymphocyte, Fluid 2 % 02/28/2025 4:00 PM EDT [facility] Mesothelial, Fluid 5 % 02/28/2025 4:00 PM EDT [facility] Fallon/Macro, Fluid 33 % 02/28/2025 4:00 PM EDT [facility] Total Cells Counted 100 % 02/28/2025 4:00 PM EDT [facility] Sterile Body Fluid (Abdomen) 02/28/2025 1:25 PM EDT 02/28/2025 2:31 PM EDT Narrative [facility] - 02/28/2025 4:00 PM EDT SEE CYTOLOGY REPORT. Reference values for this fluid type are undefined, as fluid accumulation is considered abnormal. us Geremias Romero MD BODY FLUIDS AND STOOLS ORDE RABDORIS Final Result [facility] 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 - See comment. 03/05/2025 6:11 PM EDT [facility] at 1811 EDT Comment This biopsy shows malignant epithelial proliferation with irregular glandular formations and mucin background consistent with mucinous adenocarcinoma. Tumor cells are positive for cytokeratin 20 and CDX2 immunostain, while being negative for cytokeratin 7, ER, GATA3 and PAX8 immunostain. This immunoprofile is consistent with adenocarcinoma of colorectal origin. Clinical correlation is required. 03/05/2025 6:11 PM EDT [facility] Clinical Information Ascites in the setting of new pelvic mass malignancy 03/05/2025 6:[address] [facility] Gross Description Received in formalin labeled BIBLER, abdomen core biopsy are 3 wade delicate tissue cores, ranging 0.7 cm - 0.9 cm in length. The specimen is filtered and submitted entirely in one cassette. Time incised: 1325 Time in formalin: 1325 Time in formalin before processin hours (1,ns,[id number], m6.1) SW 03/05/2025 6:11 PM EDT [facility] Embedded Images 03/05/2025 6:11 PM EDT [facility] Tissue (Abdomen) 02/28/2025 1:25 PM EDT 02/28/2025 2:59 PM EDT us Geremias Romero MD PATHOLOGY/CYTOLOGY ORDERABL ES Final Result [facility] [address] [place] [address], [place] [phone] [facility] [address] [place] [address], [place] * Cytology non-gynecologic (02/28/2025 1:25 PM EDT) Case Report Medical Cytology Report Case: [id number] Authorizing Provider: Geremias Romero MD Collected: 02/28/2025 1325 Ordering Location: [facility] [place] Received: 02/28/2025 1503 - CIELO 5E Acute Pathologist: Frankie Pizano MD Specimen: Abdomen 03/05/2025 6:14 PM EDT [facility] Final Diagnosis Ascites fluid: Atypical cells noted, in a background of acute inflammation. 03/05/2025 6:14 PM EDT [facility] at 1814 EDT Gross Description Received was 1,100ml of red fluid unfixed, labeled as Bibler, abdomen . CytoLyt added in lab. Specimen placed in formalin at 16:00 and had a total fixation time of 9 hours. 03/05/2025 6:14 PM EDT [facility] Clinical Information Ascites in the setting of new pelvic mass 03/05/2025 6:14 PM EDT [facility] Embedded Images 03/05/2025 6:14 PM EDT [facility] Sterile Body Fluid (Abdomen) 02/28/2025 1:25 PM EDT 02/28/2025 3:03 PM EDT us Geremias Romero MD PATHOLOGY/CYTOLOGY ORDERABL ES Final Result [facility] [address] [place] [address], * Body fluid culture includes gram stain (02/28/2025 1:25 PM EDT) CULTURE RESULTS NO GROWTH 5 DAYS 03/05/2025 8:34 AM EDT [facility] GRAM STAIN White Blood Cells Present 03/05/2025 8:34 AM EDT [facility] GRAM STAIN No organisms seen 03/05/2025 8:34 AM EDT [facility] GRAM STAIN On Concentrated Smear 03/05/2025 8:34 AM EDT [facility] Sterile Body Fluid (Abdomen) 02/28/2025 1:25 PM EDT 02/28/2025 2:31 PM EDT Geremias Romero MD MICROBIOLOGY - GENERAL BELKYS HIRSCH Final Result [facility] [address] [place] [address], [place] [phone] * Body Fluid Cell Count (02/28/2025 1:25 PM EDT) Fluid color Tripp 03/04/2025 5:40 AM EDT [facility] Fluid clarity Hazy 03/04/2025 5:40 AM EDT [facility] Fluid RBC Count 22,231 /uL 03/04/2025 5:40 AM EDT [facility] Nucleated Cell Count 1,910 /uL 03/04/2025 5:40 AM EDT [facility] Sterile Body Fluid (Abdomen) 02/28/2025 1:25 PM EDT 02/28/2025 2:31 PM EDT Geremias Romero MD BODY FLUIDS AND STOOLS BELKYS HIRSCH Edited Result - Final [facility] [address] [place] [address], [place] [phone] * Albumin, fluid (02/28/2025 1:25 PM EDT) Albumin FL 2.3 g/dL 02/28/2025 3:43 PM EDT [facility] Sterile Body Fluid (Abdomen) 02/28/2025 1:25 PM EDT 02/28/2025 2:31 PM EDT Narrative [facility] - 02/28/2025 3:43 PM EDT The reference interval and other method performance specifications are unavailable for this body fluid. Comparison of this result to serum or plasma is recommended. Geremias Romero MD BODY FLUIDS AND STOOLS BELKYS HIRSCH Final Result [facility] [address] [place] [address], [place] [phone] * (ABNORMAL) Basic Metabolic Panel (02/28/2025 6:22 AM EDT) SODIUM 134 134 - 146 mmol/L 02/28/2025 7:00 AM EDT [facility] POTASSIUM 4.2 3.5 - 5.0 mmol/L 02/28/2025 7:00 AM EDT [facility] CHLORIDE 104 98 - 109 mmol/L 02/28/2025 7:00 AM EDT [facility] CARBON DIOXIDE 26 22 - 32 mmol/L 02/28/2025 7:00 AM EDT [facility] ANION GAP 4(L) 5 - 15 mmol/L 02/28/2025 7:00 AM EDT [facility] BLOOD UREA NITROGEN 16 5 - 27 mg/dL 02/28/2025 7:00 AM EDT [facility] CREATININE 0.84 0.40 - 1.00 mg/dL 02/28/2025 7:00 AM EDT [facility] Comment:METHOD TRACEABLE TO IDMS STANDARD GLUCOSE 80 65 - 99 mg/dL 02/28/2025 7:00 AM EDT [facility] CALCIUM 8.1(L) 8.5 - 10.5 mg/dL 02/28/2025 7:00 AM EDT [facility] EGFR Non-Race Dependent 76 >=60 ml/min/1.7 3sq.m 02/28/2025 7:00 AM EDT [facility] Comment: Reported eGFR is based on the CKD-EPI 2020 equation that does not use a race coefficient. Blood Venous blood / Unknown Venipuncture / Unknown 02/28/2025 6:22 AM EDT 02/28/2025 6:31 AM EDT 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 [place] [address], * (ABNORMAL) Anti XA unfractionated heparin (02/28/2025 6:22 AM EDT) ANTI XA UFH <0.04(L) 0.30 - 0.70 IU/mL 02/28/2025 6:53 AM EDT [facility] Blood Venous blood / Unknown Venipuncture / Unknown 02/28/2025 6:22 AM EDT 02/28/2025 6:31 AM EDT Tyson Ritchie STUDENT TRUCK [employer] LAB BLOOD ORDERABLES Final Result Performing Organization Address City/[facility]/ZIP Co de Phone Number [facility] [address] [place] [address], * (ABNORMAL) CBC without diff (02/28/2025 6:22 AM EDT) WBC 9.2 4 - 11 x10E9/L 02/28/2025 6:42 AM EDT [facility] RBC Count 4.07 3.8 - 5.2 X10E12/L 02/28/2025 6:42 AM EDT [facility] Hemoglobin 8.8(L) 11.7 - 15.5 g/dL 02/28/2025 6:42 AM EDT [facility] Hematocrit 28.5(L) 35 - 47 % 02/28/2025 6:42 AM EDT [facility] MCV 70(L) 80 - 100 fL 02/28/2025 6:42 AM EDT [facility] MCH 21.6(L) 27 - 34 pg 02/28/2025 6:42 AM EDT [facility] MCHC 30.9(L) 32 - 36 g/dL 02/28/2025 6:42 AM EDT [facility] RDW 18.8(H) 11.5 - 15 % 02/28/2025 6:42 AM EDT [facility] Platelet Count 256 150 - 450 X10E9/L 02/28/2025 6:42 AM EDT [facility] MPV 7.2 7 - 12 fL 02/28/2025 6:42 AM EDT [facility] Blood Venous blood / Unknown Venipuncture / Unknown 02/28/2025 6:22 AM EDT 02/28/2025 6:31 AM EDT 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 [place] [address], * Magnesium (02/28/2025 6:22 AM EDT) MAGNESIUM 2.3 1.8 - 2.6 mg/dL 02/28/2025 7:00 AM EDT [facility] Blood Venous blood / Unknown Venipuncture / Unknown 02/28/2025 6:22 AM EDT 02/28/2025 6:31 AM EDT 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 [place] [address], [place] [phone] * Lavender Top (02/27/2025 6:14 PM EDT) Extra Tube Auto Resulted 02/27/2025 8:02 PM EDT [facility] Blood Venous blood / Unknown 02/27/2025 6:14 PM EDT 02/27/2025 6:41 PM EDT Deena Branch MD LAB BLOOD ORDERABLES Final Resul t [facility] [address] [place] [address], [place] [phone] * Inhibin B, S (02/27/2025 6:14 PM EDT) INHIBIN B,S <10 pg/mL 02/28/2025 1:28 PM EDT [facility] Comment: REFERENCE VALUE Premenopausal: <108 pg/mL (Follicular) <80 pg/mL (Luteal) Postmenopausal: <12 pg/mL ADDITIONAL INFORMATION The testing method is a manual immunoenzymatic assay manufactured by [employer]. Values obtained with different assay methods or kits may be different and cannot be used interchangeably. If this test is being ordered as a tumor marker, results cannot be interpreted as absolute evidence for the presence or absence of malignant disease. This test was developed and its performance characteristics determined by [facility] in a manner consistent with CLIA requirements. This test has not been cleared or approved by the U.S. Food and Drug Administration. Test Performed by: [facility] [place] [address] Nipple Maker: Fernando Layne Ph.D.; CLIA# [id number] Blood Venous blood / Unknown Venipuncture / Unknown 02/27/2025 6:14 PM EDT 02/27/2025 6:40 PM EDT Nicole Craig DO LAB BLOOD ORDERABLES Final R esult [facility] [address] [place] [address], * (ABNORMAL) Basic Metabolic Panel (02/27/2025 2:20 AM EDT) SODIUM 136 134 - 146 mmol/L 02/27/2025 2:56 AM EDT [facility] POTASSIUM 4.1 3.5 - 5.0 mmol/L 02/27/2025 2:56 AM EDT [facility] CHLORIDE 106 98 - 109 mmol/L 02/27/2025 2:56 AM EDT [facility] CARBON DIOXIDE 23 22 - 32 mmol/L 02/27/2025 2:56 AM EDT [facility] ANION GAP 7 5 - 15 mmol/L 02/27/2025 2:56 AM EDT [facility] BLOOD UREA NITROGEN 21 5 - 27 mg/dL 02/27/2025 2:56 AM EDT [facility] CREATININE 0.90 0.40 - 1.00 mg/dL 02/27/2025 2:56 AM EDT [facility] Comment:METHOD TRACEABLE TO IDMS STANDARD GLUCOSE 110(H) 65 - 99 mg/dL 02/27/2025 2:56 AM EDT [facility] CALCIUM 8.2(L) 8.5 - 10.5 mg/dL 02/27/2025 2:56 AM EDT [facility] EGFR Non-Race Dependent 70 >=60 ml/min/1.7 3sq.m 02/27/2025 2:56 AM EDT [facility] Comment: Reported eGFR is based on the CKD-EPI 2020 equation that does not use a race coefficient. EGFR not calculated due to patient's gender not being defined. Blood Venous blood / Unknown Venipuncture / Unknown 02/27/2025 2:20 AM EDT 02/27/2025 2:28 AM EDT us 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 [place] [address], * Anti XA unfractionated heparin (02/27/2025 2:20 AM EDT) [facility] ANTI XA UFH 0.58 0.30 - 0.70 IU/mL 02/27/2025 2:54 AM EDT [facility] Comment: Optimal time for testing is 6 hrs post dosage This test is specific for monitoring patients on UFH, and is not recommended for use with other Anti-Xa medications. Blood Venous blood / Unknown Venipuncture / Unknown 02/27/2025 2:20 AM EDT 02/27/2025 2:28 AM EDT us Atria Chau STUDENT TRUCK DRIVER-[employer]SISTANT [employer] LAB BLOOD ORDERABLES Final Result [facility] [address] [place] [address], [place] [phone] * (ABNORMAL) CBC without diff (02/27/2025 2:20 AM EDT) [facility] WBC 10.8 4 - 11 x10E9/L 02/27/2025 2:41 AM EDT [facility] RBC Count 3.94 3.8 - 5.2 X10E12/L 02/27/2025 2:41 AM EDT [facility] Hemoglobin 8.5(L) 11.7 - 15.5 g/dL 02/27/2025 2:41 AM EDT [facility] Hematocrit 27.5(L) 35 - 47 % 02/27/2025 2:41 AM EDT [facility] MCV 70(L) 80 - 100 fL 02/27/2025 2:41 AM EDT [facility] MCH 21.5(L) 27 - 34 pg 02/27/2025 2:41 AM EDT [facility] MCHC 30.7(L) 32 - 36 g/dL 02/27/2025 2:41 AM EDT [facility] RDW 18.7(H) 11.5 - 15 % 02/27/2025 2:41 AM EDT [facility] Platelet Count 243 150 - 450 X10E9/L 02/27/2025 2:41 AM EDT [facility] MPV 7.2 7 - 12 fL 02/27/2025 2:41 AM EDT [facility] Blood Venous blood / Unknown Venipuncture / Unknown 02/27/2025 2:20 AM EDT 02/27/2025 2:28 AM EDT Neelima Ta [facility] LAB BLOOD ORDERABLES Fi nal Result [facility] [address] [place] [address], * Magnesium (02/27/2025 2:20 AM EDT) Pathologist [facility] MAGNESIUM 2.3 1.8 - 2.6 mg/dL 02/27/2025 2:56 AM EDT [facility] Blood Venous blood / Unknown Venipuncture / Unknown 02/27/2025 2:20 AM EDT 02/27/2025 2:28 AM EDT Neelima Ta APRN-[facility] LAB BLOOD ORDERABLES Fi nal Result Performing Organization Address City/[facility]/ZIP Co de Phone Number [facility] [address] [place] [address], * Anti XA unfractionated heparin (02/26/2025 7:41 PM EDT) ANTI XA UFH 0.55 0.30 - 0.70 IU/mL 02/26/2025 8:23 PM EDT [facility] Comment: Optimal time for testing is 6 hrs post dosage This test is specific for monitoring patients on UFH, and is not recommended for use with other Anti-Xa medications. Blood Venous blood / Unknown Venipuncture / Unknown 02/26/2025 7:41 PM EDT 02/26/2025 7:55 PM EDT Lennox Mares MD LAB BLOOD ORDERABLES Final Resu lt [facility] [address] [place] [address], [place] [phone] * Echo complete W/O contrast (02/26/2025 3:15 PM EDT) LVOT stroke volume 62.09 ml XCELERA FS 37 28 - 44 % XCELERA LVIDd 3.50 4.13 - 5.73 cm XCELERA LVIDs 2.20 2.45 - 3.70 cm XCELERA IVS 1.20 0.6 - 1.1 cm XCELERA PW 1.20 0.6 - 1.1 cm XCELERA LVOT diameter 1.90 cm XCELERA TDI 11.70 cm/s XCELERA MV TDI E' (medial) 7.94 cm/s XCELERA LA Volume Index 21.1 mL/m2 XCELERA E/A ratio 0.80 XCELERA E wave deceleration time 202.00 msec XCELERA MV Peak E Simon 92.50 cm/s XCELERA MV Peak A Simon 115.00 cm/s XCELERA LA size 3.60 cm XCELERA Aortic root 2.50 cm XCELERA LA volume 38.00 cm3 XCELERA RV diastolic dimension (basal) 22.0 mm XCELERA TAPSE 2.56 cm XCELERA AV peak simon 135.00 cm/s XCELERA LVOT peak simon 1.01 m/s XCELERA AV VTI 20.00 cm XCELERA LVOT peak VTI 21.90 cm XCELERA AV mean gradient 3.00 mmHg XCELERA AV peak gradient 7.29 mmHg XCELERA AV valve area 3.10 XCELERA Valve area - Index 1.7 XCELERA MV pressure 1/2 time 59.00 ms XCELERA MV valve area p 1/2 method 3.73 cm2 XCELERA PV peak gradient 4.41 mmHg XCELERA LV ESV A2C 48.90 mL XCELERA LV ESV A4C 23.80 mL XCELERA LV RWT 2D 68.57 XCELERA AV Velocity Ratio 1.10 XCELERA Left Ventricle Mass 135.77535 [id number] 3 g XCELERA Interventricular Septum Diastolic Thickness by 2D 12 cm XCELERA RA area 8.9 cm2 XCELERA ZLVIDS -2.48 XCELERA ZLVIDD -3.30 XCELERA Energy loss index 8.64 XCELERA Anatomical Region Laterality Modality Chest N/A Ultrasound Narrative 02/26/2025 4:52 PM EDT Left Ventricle: Left ventricle is small. Systolic function is normal with an ejection fraction of 60-65%. No segmental wall motion abnormalities. Grade I diastolic dysfunction (impaired relaxation) is present. Lateral E' is 11.70 cm/s. Medial E' is 7.94 cm/s. Right Ventricle: Right ventricular size appears normal. The right ventricular basal diameter is 22.0 mm. Systolic function is normal. Aortic Valve: There is trace to mild regurgitation. There is no evidence of aortic valve stenosis. Left Ventricle Left ventricle is small. There is mild increased wall thickness/hypertrophy. Systolic function is normal with an ejection fraction of 60-65%. No segmental wall motion abnormalities. Grade I diastolic dysfunction (impaired relaxation) is present. Lateral E' is 11.70 cm/s. Medial E' is 7.94 cm/s. Right Ventricle Right ventricular size appears normal. The right ventricular basal diameter is 22.0 mm. Systolic function is normal. Left Atrium Left atrium is normal in size. The left atrial volume index is 21.1 mL/m2. Right Atrium Right atrium is normal in size. The right atrial area is 8.9 cm2. IVC/SVC IVC appears normal. There is normal collapse with deep inspiration. Hepatomegaly noted. Mitral Valve The leaflets are mildly thickened. There is trace regurgitation. There is no evidence of mitral valve stenosis. Tricuspid Valve Tricuspid valve appears to be normal. There is trace regurgitation. There is no evidence of tricuspid valve stenosis. Aortic Valve The aortic valve is trileaflet. There is trace to mild regurgitation. There is no evidence of aortic valve stenosis. Pulmonic Valve Pulmonic valve structure is grossly normal. There is trace regurgitation. There is no evidence of pulmonic valve stenosis. The peak gradient is 4.41 mmHg. Ascending Aorta The aortic root is normal in size. Pericardium There is no pericardial effusion. Study Details A complete echo was performed using complete 2D, color flow Doppler and spectral Doppler. During the study the apical, parasternal, subcostal and suprasternal views were captured. Wall Scoring Baseline Score Index: 1.00 The left ventricular wall motion is normal. Neelima Serge CintronTa STUDENT TRUCK DRIVER-ASSISTANT DIRECTOR OF [employer] CV ECHO ORDERABLES Brandy l Result * High risk HPV w/myriam (02/26/2025 1:55 PM EDT) HPV 16 Negative Negative 02/28/2025 6:38 AM EDT [facility] HPV 18 Negative Negative 02/28/2025 6:38 AM EDT [facility] OTHER HIGH RISK HPV Negative Negative 02/28/2025 6:38 AM EDT [facility] Comment:HPV types 31, 33, 35 , 39, 45, 52, 56, 58, 59, 66, and 68 DNA were undetectable. Thin Prep Cervix uteri structure / Unknown 02/26/2025 1:55 PM EDT 02/27/2025 4:03 AM EDT us Mariaelena Berumen MD LAB BLOOD ORDERABLES Final Res ult [facility] [address] [place] [address], * Thin Prep Pap Test (02/26/2025 1:55 PM EDT) Case Report Gynecologic Cytology Report Case: [id number] Authorizing Provider: Mariaelena Berumen MD Collected: 02/26/2025 1355 Ordering Location: [facility] [place] Received: 02/27/2025 0400 - CIELO 5E Acute First Screen: LEVI Boyle(ASCP) Rescreen: LEVI Palomino(ASCP) Specimen: Thin Prep Pap, Cervix 5 3:01 PM EDT [facility] Specimen Adequacy Satisfactory for evaluation 5 3:01 PM EDT [facility] Interpretation NEGATIVE FOR INTRAEPITHELIA L LESION OR MALIGNANCY NEGATIVE FOR INTRAEPITHELIA L LESION OR MALIGNANCY, UNSATISFACTORY , EPITHELIAL CELL ABNORMALITY, GLANDULAR EPITHELIAL CELL ABNORMALITY. , SQUAMOUS EPITHELIAL CELL ABNORMALITY, NO DIAGNOSIS RENDERED. 3:01 PM EDT [facility] at 1501 EDT Additional Information The Pap test is a screening test with an inherent, but low, probability of error. The Pap test is primarily effective for the diagnosis and prevention of squamous cell carcinoma. Regular screening is critical for prevention. ThinPrep liquid-based slides, which meet the Shop Repairer criteria for automated screening, have been screened by the ThinPrep Imaging System (as of 03/19/07) along with an additional manual rescreening by a cytotechnologi st and, if indicated, by a pathologist. 3:01 PM EDT [facility] Clinical Information Routine screening, VB 3:01 PM EDT [facility] Embedded Images 3:01 PM EDT [facility] Thin Prep Cervix uteri structure / Unknown 02/26/2025 1:55 PM EDT 02/27/2025 4:00 AM EDT Mariaelena Berumen MD PATHOLOGY/CYTOLOGY ORDERABLES Final Result [facility] [address] [place] [address], * (ABNORMAL) Anti XA unfractionated heparin (02/26/2025 12:05 PM EDT) ANTI XA UFH 1.01(HH) 0.30 - 0.70 IU/mL 02/26/2025 12:41 PM EDT [facility] Comment: Optimal time for testing is 6 hrs post dosage This test is specific for monitoring patients on UFH, and is not recommended for use with other Anti-Xa medications. Blood Venous blood / Unknown Venipuncture / Unknown 02/26/2025 12:05 PM EDT 02/26/2025 12:16 PM EDT us Tyson Ritchie STUDENT TRUCK DRIVER-ASSISTANT DIRECTOR OF [employer] LAB BLOOD ORDERABLES Final Result [facility] [address] [place] [address], * Inhibin-A (Dimer) (02/26/2025 11:14 AM EDT) INHIBIN-A (DIMER) 11.1 pg/mL 025 2:10 AM EDT [employer] Comment: INTERPRETIVE INFORMATION: Inhibin-A (Dimer) Normal Cycling Females: Early Follicular Phase (-14 to -10):.. 1.8-17.3 pg/mL Mid Follicular Phase (-9 to -4):...... 3.5-31.7 pg/mL Late Follicular Phase (-3 to -1):..... 9.8-90.3 pg/mL Mid Cycle (Day 0):.................... 16.9-91.8 pg/mL Early Luteal (1 to 3):................ 16.1-97.5 pg/mL Mid Luteal (4 to 11):................. 3.9-87.7 pg/mL Late Luteal (12 to 14):............... 2.7-47.1 pg/mL IVF-Peak Levels:...................... 354.2-1690.0 pg/mL PCOS-Ovulatory:....................... 5.7-16.0 pg/mL Postmenopausal:....................... less than 6.9 pg/mL Normal Males:......................... less than 2.1 pg/mL This assay is performed using the [employer] DXI assay. Values may be elevated during normal . Preeclampsia, Down syndrome, and some cancers may increase Inhibin-A values. Performed By: [employer] [address] [place] [id number] Prizer Hand: Luis Madsen MD, PhD CLIA Number: [id number] Blood Venous blood / Unknown Venipuncture / Unknown 02/26/2025 11:14 AM EDT 02/26/2025 11:24 AM EDT Nicole Craig LAB BLOOD ORDERABLES Final R esult Performing Organization Address [facility] Co de Phone Number [employer] [address] [place] [id number], * (ABNORMAL) CEA (02/26/2025 11:14 AM EDT) [facility] CEA 24.6(H) <=3.0 ng/mL 02/26/2025 12:35 PM EDT [facility] Comment: 0.0-3.0 ng/mL FOR NON SMOKERS 0.0-5.0 ng/mL FOR SMOKERS The method used for this test is [employer] Billy DXI chemiluminescent immunoassay. Values obtained by different assay methods cannot be used interchangeably. Blood Venous blood / Unknown Venipuncture / Unknown 02/26/2025 11:14 AM EDT 02/26/2025 11:24 AM EDT Nicolewil Dow Craig LAB BLOOD ORDERABLES Final R esult Performing Organization Address [facility] Co de Phone Number [facility] [address] [place] [address], * (ABNORMAL) HE4, S (02/26/2025 11:14 AM EDT) HE4, S 163(H) <=140 pmol/L 02/27/2025 3:22 PM EDT [facility] Comment: ADDITIONAL INFORMATION The testing method is an electrochemiluminescence assay manufactured by [employer] and performed on the Modular or David system. Values obtained with different assay methods or kits may be different and cannot be used interchangeably. Test results cannot be interpreted as absolute evidence for the presence or absence of malignant disease. Test Performed by: [facility] [address] [place] [address] Nipple Maker: Fernando Layne Ph.D.; CLIA# [id number] Blood Venous blood / Unknown Venipuncture / Unknown 02/26/2025 11:14 AM EDT 02/26/2025 11:24 AM EDT Ernie Elizondo [facility] LAB BLOOD ORDERABLES Brandy l Result Performing Organization Address City/[facility]/ZIP Co de Phone Number [facility] [address] [place] [address], [place] * (ABNORMAL) Haptoglobin (02/26/2025 11:14 AM EDT) [facility] HAPTOGLOBIN 381(H) 32 - 228 mg/dL 02/26/2025 12:42 PM EDT [facility] Blood Venous blood / Unknown Venipuncture / Unknown 02/26/2025 11:14 AM EDT 02/26/2025 11:24 AM EDT [facility]LES Brandy l Result [facility] [address] [place] [address], [place] [phone] * Cancer antigen 19-9 (02/26/2025 2:59 AM EDT) Pathologist [facility] CA 19 9 22.5 <=35.0 U/mL 02/26/2025 11:48 AM EDT [facility] Comment: The method used for this test is [employer] Billy DXI chemiluminescent immunoassay. Values obtained by different assay methods cannot be used interchangeably. Blood Venous blood / Unknown Venipuncture / Unknown 02/26/2025 2:59 AM EDT 02/26/2025 3:06 AM EDT Nicole Craig DO LAB BLOOD ORDERABLES Final R esult [facility] [address] [place] [address], * (ABNORMAL) CA 125 (02/26/2025 2:59 AM EDT) CA 125 1,528(H) <=35 U/mL 02/26/2025 10:00 AM EDT [facility] Comment: The method used for this test is [employer] [place] DXI chemiluminescent immunoassay. Values obtained by different assay methods cannot be used interchangeably. Blood Venous blood / Unknown Venipuncture / Unknown 02/26/2025 2:59 AM EDT 02/26/2025 3:06 AM EDT Ernie Elizondo APRN-ASSISTANT DIRECTOR OF [employer] LAB BLOOD ORDERABLES Brandy l Result [facility] [address] [place] [address], * LDH (02/26/2025 2:59 AM EDT) LDH 232 100 - 235 U/L 02/26/2025 9:50 AM EDT [facility] Blood Venous blood / Unknown Venipuncture / Unknown 02/26/2025 2:59 AM EDT 02/26/2025 3:06 AM EDT us Ernie Elizondo STUDENT TRUCK DRIVER-ASSISTANT DIRECTOR OF [employer] LAB BLOOD ORDERABLES Brandy l Result [facility] [address] [place] [address], * (ABNORMAL) Vitamin B12 (02/26/2025 2:59 AM EDT) VITAMIN B12 110(L) 180 - 914 pg/mL 02/26/2025 10:13 AM EDT [facility] Blood Venous blood / Unknown Venipuncture / Unknown 02/26/2025 2:59 AM EDT 02/26/2025 3:06 AM EDT us Ernie Elizondo [facility] LAB BLOOD ORDERABLES Brandy l Result Performing Organization Address City/[facility]/ZIP Co de Phone Number [facility] [address] [place] [address], * (ABNORMAL) Folate (02/26/2025 2:59 AM EDT) FOLIC ACID 3.3(L) >5.8 ng/mL 02/26/2025 10:12 AM EDT [facility] Blood Venous blood / Unknown Venipuncture / Unknown 02/26/2025 2:59 AM EDT 02/26/2025 3:06 AM EDT us Ernie Espinalallen [facility] LAB BLOOD ORDERABLES Brandy l Result [facility] [address] [place] [address], * Ferritin (02/26/2025 2:59 AM EDT) FERRITIN 78 11 - 307 ng/mL 02/26/2025 10:08 AM EDT [facility] Blood Venous blood / Unknown Venipuncture / Unknown 02/26/2025 2:59 AM EDT 02/26/2025 3:06 AM EDT Ernie Elizondo STUDENT TRUCK DRIVER-[facility] LAB BLOOD ORDERABLES Brandy l Result [facility] [address] [place] [address], [place] [phone] * (ABNORMAL) Iron and TIBC (02/26/2025 2:59 AM EDT) IRON 12(L) 50 - 170 ug/dL 02/26/2025 9:50 AM EDT [facility] TRANSFERRIN 229 168 - 336 mg/dL 02/26/2025 9:50 AM EDT [facility] IRON BINDING 321 250 - 425 ug/dL 02/26/2025 9:50 AM EDT [facility] IRON SATURATION 4(L) 15 - 50 % SATURATION 02/26/2025 9:50 AM EDT [facility] Blood Venous blood / Unknown Venipuncture / Unknown 02/26/2025 2:59 AM EDT 02/26/2025 3:06 AM EDT Ernie Elizondo [facility] LAB BLOOD ORDERABLES Brandy l Result [facility] [address] [place] [address], * (ABNORMAL) Basic Metabolic Panel (02/26/2025 2:59 AM EDT) SODIUM 133(L) 134 - 146 mmol/L 02/26/2025 3:51 AM EDT [facility] POTASSIUM 4.0 3.5 - 5.0 mmol/L 02/26/2025 3:51 AM EDT [facility] CHLORIDE 102 98 - 109 mmol/L 02/26/2025 3:51 AM EDT [facility] CARBON DIOXIDE 23 22 - 32 mmol/L 02/26/2025 3:51 AM EDT [facility] ANION GAP 8 5 - 15 mmol/L 02/26/2025 3:51 AM EDT [facility] BLOOD UREA NITROGEN 21 5 - 27 mg/dL 02/26/2025 3:51 AM EDT [facility] CREATININE 0.93 0.40 - 1.00 mg/dL 02/26/2025 3:51 AM EDT [facility] Comment:METHOD TRACEABLE TO IDMS STANDARD GLUCOSE 93 65 - 99 mg/dL 02/26/2025 3:51 AM EDT [facility] CALCIUM 8.1(L) 8.5 - 10.5 mg/dL 02/26/2025 3:51 AM EDT [facility] EGFR Non-Race Dependent 67 >=60 ml/min/1.7 3sq.m 02/26/2025 3:51 AM EDT [facility] Comment: Reported eGFR is based on the CKD-EPI 2020 equation that does not use a race coefficient. EGFR not calculated due to patient's gender not being defined. 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 [place] [address], * (ABNORMAL) Anti XA unfractionated heparin (02/26/2025 2:59 AM EDT) ANTI XA UFH 0.15(L) 0.30 - 0.70 IU/mL 02/26/2025 4:00 AM EDT [facility] Comment: Optimal time for testing is 6 hrs post dosage This test is specific for monitoring patients on UFH, and is not recommended for use with other Anti-Xa medications. Blood Venous blood / Unknown Venipuncture / Unknown 02/26/2025 2:59 AM EDT 02/26/2025 3:06 AM EDT us Deena Branch MD LAB BLOOD ORDERABLES Final Resul t [facility] [address] [place] [address], [place] [phone] * (ABNORMAL) CBC without diff (02/26/2025 2:59 AM EDT) WBC 12.5(H) 4 - 11 x10E9/L 02/26/2025 3:30 AM EDT [facility] RBC Count 4.18 3.8 - 5.2 X10E12/L 02/26/2025 3:30 AM EDT [facility] Hemoglobin 8.9(L) 11.7 - 15.5 g/dL 02/26/2025 3:30 AM EDT [facility] Hematocrit 29.0(L) 35 - 47 % 02/26/2025 3:30 AM EDT [facility] MCV 70(L) 80 - 100 fL 02/26/2025 3:30 AM EDT [facility] MCH 21.4(L) 27 - 34 pg 02/26/2025 3:30 AM EDT [facility] MCHC 30.7(L) 32 - 36 g/dL 02/26/2025 3:30 AM EDT [facility] RDW 18.7(H) 11.5 - 15 % 02/26/2025 3:30 AM EDT [facility] Platelet Count 231 150 - 450 X10E9/L 02/26/2025 3:30 AM EDT [facility] MPV 7.4 7 - 12 fL 02/26/2025 3:30 AM EDT [facility] Blood Venous blood / Unknown Venipuncture / Unknown 02/26/2025 2:59 AM EDT 02/26/2025 3:06 AM EDT us 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 [place] [address], * Magnesium (02/26/2025 2:59 AM EDT) MAGNESIUM 2.4 1.8 - 2.6 mg/dL 02/26/2025 3:51 AM EDT [facility] Blood Venous blood / Unknown Venipuncture / Unknown 02/26/2025 2:59 AM EDT 02/26/2025 3:06 AM EDT Neelima Ta APRN-ASSISTANT DIRECTOR OF [employer] LAB BLOOD ORDERABLES Fi nal Result Performing Organization Address [facility] Co de Phone Number [facility] [address] [place] [address], * Anti XA unfractionated heparin (02/25/2025 8:49 PM EDT) [facility] ANTI XA UFH 0.48 0.30 - 0.70 IU/mL 02/25/2025 10:09 PM EDT [facility] Comment: Optimal time for testing is 6 hrs post dosage This test is specific for monitoring patients on UFH, and is not recommended for use with other Anti-Xa medications. Blood Venous blood / Unknown Venipuncture / Unknown 02/25/2025 8:49 PM EDT 02/25/2025 9:47 PM EDT Deena Branch MD LAB BLOOD ORDERABLES Final Resul t Performing Organization Address [facility] Co de Phone Number [facility] [address] [place] [address], * (ABNORMAL) Urinalysis (02/25/2025 8:26 PM EDT) COLOR Tripp(A) Yellow 02/25/2025 8:57 PM EDT [facility] TURBIDITY Clear Clear 02/25/2025 8:57 PM EDT [facility] SPECIFIC GRAVITY 1.015 1.003 - 1.035 02/25/2025 8:57 PM EDT [facility] NITRITE Negative Negative 02/25/2025 8:57 PM EDT [facility] PH,URINE 6.0 5.0 - 8.5 02/25/2025 8:57 PM EDT [facility] LEUKOCYTE ESTERASE Small(A) Negative 02/25/2025 8:57 PM EDT [facility] PROTEIN 50 mg/dL(A) Negative 02/25/2025 8:57 PM EDT [facility] KETONES (URINE) Negative Negative 8:57 PM EDT [facility] UROBILINOGEN 2 eu/dL(A) <1.1 eu/dL 02/25/2025 8:57 PM EDT [facility] BILIRUBIN (URINE) Negative Negative 02/25/2025 8:57 PM EDT [facility] BLOOD/HGB Large(A) Negative 02/25/2025 8:57 PM EDT [facility] MUCOUS Present(A) None 02/25/2025 8:57 PM EDT [facility] R.B.CELLS 68(H) 0 - 5 02/25/2025 8:57 PM EDT [facility] SQUAMOUS EPITHELIUM 10(H) 0 - 5 02/25/2025 8:57 PM EDT [facility] W.B.CELLS 19(H) 0 - 5 02/25/2025 8:57 PM EDT [facility] GLUCOSE (URINE) Negative Negative 8:57 PM EDT [facility] Urine Urine / Unknown 02/25/2025 8 :26 PM EDT 02/25/2025 8:46 PM EDT us Neelima Ta STUDENT TRUCK DRIVER-ASSISTANT DIRECTOR OF [employer] URINE ORDERABLES Final Result [facility] [address] [place] [address], [place] [phone] * Urine Culture Urine, Clean Catch Midstream (02/25/2025 8:26 PM EDT) CULTURE RESULTS 10-50,000 ORGANISMS/mL NORMAL UROGENITAL YOLY 02/26/2025 4:53 PM EDT [facility] Urine Urine specimen collection, clean catch / Unknown 02/25/2025 8:26 PM EDT 02/25/2025 8:46 PM EDT Neelima Ta STUDENT TRUCK DRIVER-ASSISTANT DIRECTOR OF [employer] MICROBIOLOGY - GENERAL ORDERABLES Final Result [facility] [address] [place] [address], * CT angiogram chest (02/25/2025 6:57 PM EDT) Anatomical Region Laterality Modality Lung, Body, Chest, Vascular, Body Covera N/A Computed Tomography 02/25/2025 7:04 PM EDT Narrative 02/25/2025 7:09 PM EDT CLINICAL INFORMATION: DVT's TECHNIQUE: CT CTA CHEST CTA of the chest was obtained post intravenous administration of contrast. Post processed three-dimensional maximum intensity projection imaging was acquired and evaluated. There are moderate right-sided pulmonary emboli. No appreciable right heart strain. Right lower lobe infiltrate or atelectasis appreciated. There are bilateral pulmonary nodules appreciated most suggestive of metastasis, as previous described. Limited images of the upper abdomen again show free intraperitoneal fluid. Refer to previously dictated CT abdomen. No obvious mediastinal lymphadenopathy. Coronary arterial atherosclerotic calcification noted. Osseous structures appear grossly intact. IMPRESSION: Moderate right sided pulmonary emboli without evidence of right heart strain. Right lower lobe infiltrate or atelectasis. Numerous pulmonary nodules, likely metastasis. I personally called these findings to nurse Muhammad of the clinical service at time of dictation. All CT scans at this facility use dose modulation, iterative reconstruction, and/or weight based dosing when appropriate to reduce radiation dose to as low as reasonably achievable. Finalized by Chau Nicole MD on 02/25/2025 7:09 PM Procedure Note Chau Nicole MD - 02/25/2025 CLINICAL INFORMATION: DVT's TECHNIQUE: CT CTA CHEST CTA of the chest was obtained post intravenous administration of contrast.Post processed three-dimensional maximum intensity projection imaging wasacquired and evaluated. There are moderate right-sided pulmonary emboli.No appreciable right heart strain. Right lower lobe infiltrate oratelectasis appreciated. There are bilateral pulmonary nodules appreciated mostsuggestive of metastasis, as previous described. Limited images of theupper abdomen again show free intraperitoneal fluid. Refer to previouslydictated CT abdomen. No obvious mediastinal lymphadenopathy. Coronaryarterial atherosclerotic calcification noted. Osseous structures appear grosslyintact. IMPRESSION: Moderate right sided pulmonary emboli without evidence of right heartstrain. Right lower lobe infiltrate or atelectasis. Numerous pulmonary nodules, likely metastasis. I personally called these findings to nurse Muhammad of the clinical serviceat time of dictation. All CT scans at this facility use dose modulation, iterativereconstruction, and/or weight based dosing when appropriate to reduceradiation dose to as low as reasonably achievable. Finalized by Chau Nicole MD on 02/25/2025 7:09 PM Neelima Ta [facility] CT ORDERABLES Final Result documented in this encounter Visit Diagnoses Diagnosis DVT (deep venous thrombosis) (CMS-HCC)- Primary Acute venous embolism and thrombosis of unspecified deep vessels of lower extremity Colon cancer screening Special screening for malignant neoplasms, colon Hematochezia Blood in stool Pressure injury of deep tissue of left buttock Pressure ulcer of right buttock, stage 2 (CMS-HCC) Colon cancer screening Special screening for malignant neoplasms, colon Hematochezia Blood in stool Pressure ulcer of right buttock, stage 2 (CMS-HCC) Pressure injury of deep tissue of left buttock documented in this encounter Admitting Diagnoses Diagnosis DVT (deep venous thrombosis) (CMS-HCC) Acute venous embolism and thrombosis of unspecified deep vessels of lower extremity Colon cancer screening Special screening for malignant neoplasms, colon Hematochezia Blood in stool documented in this encounter Administered Medications Inactive Administered Medications - up to 3 most recent administrations Medication Order MAR Action Action Date Dose Rate Site acetaminophen (OFIRMEV) IVPB Premix 1,000 mg 1,000 mg, intravenous, at 400 mL/hr, Administer over 15 Minutes, Every 6 hours, First dose on Mon03/07/25 at 1300, For 24 hours New Bag 03/07/2025 8:34 PM EDT 1,000 mg 400 mL/hr New Bag 03/07/2025 2:31 PM EDT 1,000 mg 400 mL/hr acetaminophen (OFIRMEV) IVPB Premix 1,000 mg 1,000 mg, intravenous, at 400 mL/hr, Administer over 15 Minutes, Every 6 hours PRN, mild pain - pain scale 1-3, Starting on Mon03/12/25 at 2055, For 24 hours New Bag 03/12/2025 9:41 PM EDT 1,000 mg 400 mL/hr acetaminophen (OFIRMEV) IVPB Premix 1,000 mg 1,000 mg, intravenous, at 400 mL/hr, Administer over 15 Minutes, Every 6 hours PRN, mild pain - pain scale 1-3, Starting on Mon03/13/25 at 0642, For 24 hours New Bag 03/13/2025 7:36 AM EDT 1,000 mg 400 mL/hr acetaminophen (TYLENOL) tablet 650 mg 650 mg, oral, Every 6 hours PRN, mild pain - pain scale 1-3, headaches, Temperature greater than 38.3 C, Starting on Mon02/25/25 at 1739, [Warning: Total Acetaminophen not to exceed more than 4 grams (4000 mg) in 24 hours] Given 03/01/2025 8:24 AM EDT 325 mg acetaminophen (TYLENOL) tablet 650 mg 650 mg, oral, Every 6 hours, First dose on Mon03/13/25 at 1245 Given 03/20/2025 1:20 AM EDT 650 mg Given 03/19/2025 7:35 PM EDT 650 mg Given 03/19/2025 8:08 AM EDT 650 mg albumin human 25 % IVPB Premix 50 g 50 g, intravenous, Once, On Mon03/16/25 at 1000, For 1 dose, Do not exceed 1 mL/minute in patients with normal plasma volume; 2 to 3 mL/minute in patients with hypoproteinemia For BUMINATE, administer using a 15 micron or smaller filter. A filter is NOT required for administration by other brands., Indication: Other, Indication: Hypoalbuminemia New Bag 2025 10:45 AM EDT 50 g albumin human 5 % IVPB Premix 25 g 25 g, intravenous, Once, On Mon03/15/25 at 1100, For 1 dose, Do not exceed 2 to 4 mL/minute in patients with normal plasma volume; 5 to 10 mL/minute in patients with hypoproteinemia For BUMINATE, administer using a 15 micron or smaller filter. A filter is NOT required for administration by other brands., Indication: Other, Indication: high ileostomy output New Bag 03/15/2025 11:06 AM EDT 25 g amLODIPine (NORVASC) tablet 10 mg 10 mg, oral, Daily, First dose (after last modification) on Mon03/07/25 at 0900, Look-alike/sound-alike medication - verify indication for use. Avoid grapefruit juice. Given 03/07/2025 10:29 AM EDT 10 mg amLODIPine (NORVASC) tablet 5 mg 5 mg, oral, Daily, First dose on Mon03/04/25 at 1145, Look-alike/sound-alike medication - verify indication for use. Avoid grapefruit juice. Given 03/06/2025 8:58 AM EDT 5 mg Given 03/05/2025 8:44 AM EDT 5 mg Given 03/04/2025 11:41 AM EDT 5 mg amLODIPine (NORVASC) tablet 5 mg 5 mg, oral, Once, On Mon03/06/25 at 1300, For 1 dose, Look-alike/sound-alike medication - verify indication for use. Avoid grapefruit juice. Given 03/06/2025 1:26 PM EDT 5 mg apixaban (ELIQUIS) tablet 10 mg 10 mg, oral, 2 times daily, First dose on Mon03/05/25 at 1445, For 7 days, Two times daily for 7 days. Contraindicated with creatinine clearance less than 25 ml/min. Contraindicated with Serum Creatinine greater than 2.5 mg/dl., Indication: Acute VTE Treatment Given 03/06/2025 8:58 AM EDT 10 mg Given 03/05/2025 10:24 PM EDT 10 mg Given 03/05/2025 3:02 PM EDT 10 mg apixaban (ELIQUIS) tablet 5 mg 5 mg, oral, 2 times daily, First dose on Mon03/19/25 at 1130, Indication: Prevention of VTE Recurrence Given 03/21/2025 9:01 AM EDT 5 mg Given 03/20/2025 9:45 PM EDT 5 mg Given 03/20/2025 8:22 AM EDT 5 mg bisacodyL (DULCOLAX) suppository 10 mg 10 mg, rectal, Once, On Mon03/04/25 at 1300, For 1 dose, Look-alike/sound-alike medication - verify indication for use. Given 03/04/2025 1:36 PM EDT 10 mg calcium gluconate 3,000 mg in sodium chloride 0.9 % 100 mL IVPB 3,000 mg, intravenous, at 130 mL/hr, Administer over 60 Minutes, As needed, for ionized calcium level less than 3 mg/dL, Starting on 03/08/25 at 0027, CALL PHYSICIAN if this dose is administered. Recheck ionized calcium 6 hours after infusion. Hold calcium replacement for phosphorus greater than 5.5 mg/dL. VESICANT (RED) calcium gluconate IVPB 1000 mg/50 mL (20 mg/mL premix) 1,000 mg, intravenous, at 50 mL/hr, Administer over 60 Minutes, As needed, for ionized calcium level 3.5 to 4.4 mg/dL, Starting on 03/08/25 at 0027, Recheck ionized calcium 6 hours after infusion. Hold calcium replacement for phosphorus greater than 5.5 mg/dL. VESICANT (RED) New Bag 2025 9:52 PM EDT 1,000 mg 50 mL /hr New Bag 2025 10:42 AM EDT 1,000 mg 50 mL/hr New Bag 03/13/2025 9:22 AM EDT 1,000 mg 50 mL/hr calcium gluconate IVPB 2000 mg/100 mL (20 mg/mL premix) 2,000 mg, intravenous, at 100 mL/hr, Administer over 60 Minutes, As needed, for ionized calcium level 3 to 3.4 mg/dL, Starting on 03/08/25 at 0027, Recheck ionized calcium 6 hours after infusion. Hold calcium replacement for phosphorus greater than 5.5 mg/dL. VESICANT (RED) cefTRIAXone (ROCEPHIN) 1,000 mg in sodium chloride 0.9 % 50 mL IVPB W/ADAPTER 1,000 mg, intravenous, at 100 mL/hr, Administer over 30 Minutes, Every 24 hours, First dose on Mon02/26/25 at 0900, For Vial-2-Bag: Attach bag and vial to adapter - Use immediately after activating; dissolve drug prior to administration., Indication: UTI New Bag 02/26/2025 9:15 AM EDT 1,000 mg 100 mL/hr cefTRIAXone (ROCEPHIN) 2,000 mg in sodium chloride 0.9 % 50 mL IVPB W/ADAPTER 2,000 mg, intravenous, at 100 mL/hr, Administer over 30 Minutes, Every 24 hours, First dose on Mon03/01/25 at 1215, For 5 doses, For Vial-2-Bag: Attach bag and vial to adapter - Use immediately after activating; dissolve drug prior to administration., Indication: Intra-abdominal New Bag 03/05/2025 12:43 PM EDT 2,000 mg 100 mL/hr New Bag 03/04/2025 11:43 AM EDT 2,000 mg 100 mL/hr New Bag 03/03/2025 12:56 PM EDT 2,000 mg 100 mL/hr cefTRIAXone (ROCEPHIN) 2,000 mg in sodium chloride 0.9 % 50 mL IVPB W/ADAPTER 2,000 mg, intravenous, at 100 mL/hr, Administer over 30 Minutes, Every 24 hours, First dose on Mon03/07/25 at 1600, For 6 doses, For Vial-2-Bag: Attach bag and vial to adapter - Use immediately after activating; dissolve drug prior to administration., Indication: Intra-abdominal New Bag 03/12/2025 4:35 PM EDT 2,000 mg 100 mL/hr Rate/Dose Verify 03/11/2025 4:54 PM EDT 100 mL/ hr New Bag 03/11/2025 4:29 PM EDT 2,000 mg 100 mL/hr chlorhexidine (PERIDEX) 0.12 % solution 15 mL 15 mL, mouth/throat, 2 times daily, First dose on 03/08/25 at 0900, Swish undiluted for 30 seconds, then spit. Given 03/12/2025 8:10 AM EDT 15 mL Given 03/11/2025 8:20 PM EDT 15 mL Given 03/11/2025 8:24 AM EDT 15 mL cyanocobalamin (VITAMIN B-12) injection 1,000 mcg 1,000 mcg, intramuscular, Daily, First dose on Mon02/26/25 at 1500, For 5 doses Given 03/02/2025 10:05 AM EDT 1,000 mcg Left Deltoid Given 03/01/2025 8:25 AM EDT 1,000 mcg Le ft Deltoid Given 02/28/2025 7:23 AM EDT 1,000 mcg Ri ght Deltoid D5 % and 0.45 % sodium chloride 1,000 mL with sodium bicarbonate 8.4 % (1 mEq/mL) 75 mEq infusion 100 mL/hr, intravenous, Continuous, Starting on Shani 03/06/25 at 1500 Rate/Dose Verify 03/08/2025 4:35 AM EDT 100 mL/hr 100 mL/hr Rate/Dose Verify 03/07/2025 5:44 PM EDT 100 mL/hr 100 mL/ hr Rate/Dose Verify 03/07/2025 10:41 AM EDT 100 mL/hr 100 mL /hr dextrose (GLUTOSE) 40 % gel 15 g 15 g, oral, As needed, low blood sugar, blood glucose less than 70 mg/dL, Starting on 03/08/25 at 0932, If patient conscious and taking PO. If blood glucose is not greater than 70 mg/dL after initial treatment, repeat treatment. dextrose 5 % (D5W) infusion 100 mL/hr, intravenous, Continuous PRN, blood glucose less than 70 mg/dL, Starting on 03/08/25 at 0932, For 365 days, Use immediately following dextrose 50% or glucagon treatment for patients who are unconscious or NPO. Contact prescriber for additional orders. If blood glucose is not greater than 70 mg/dL after initial treatment, repeat treatment. dextrose 5 % (D5W) infusion 20 mL/hr, intravenous, Continuous, Starting on Mon03/14/25 at 1445, For 1 day Rate/Dose Change 03/14/2025 10:30 PM EDT 20 mL/hr 20 mL/hr New Bag 03/14/2025 2:45 PM EDT 50 mL/hr 50 mL/hr dextrose 5 % (D5W) infusion 50 mL/hr, intravenous, Continuous, Starting on 03/15/25 at 1015, For 1 day New Bag 2025 4:14 AM EDT 50 mL/hr 50 mL/hr New Bag 03/15/2025 10:13 AM EDT 50 mL/hr 50 mL/hr dextrose 5 % and lactated ringers infusion 75 mL/hr, intravenous, Continuous, Starting on Mon03/10/25 at 0400, For 1 day Rate/Dose Verify 03/10/2025 5:16 PM EDT 7 5 mL/hr Rate/Dose Verify 03/10/2025 1:49 PM EDT 75 mL/h r New Bag 03/10/2025 1:49 PM EDT 75 mL/hr 75 mL/hr dextrose 5 % and sodium chloride 0.45 % infusion 50 mL/hr, intravenous, Continuous, Starting on Mon03/07/25 at 1330 Restarted 03/07/2025 8:49 PM EDT 50 mL/hr Rate/Dose Verify 03/07/2025 6:21 PM EDT 50 mL/h r New Bag 03/07/2025 6:21 PM EDT 50 mL/hr 50 mL/hr dextrose 5 % and sodium chloride 0.45 % infusion 50 mL/hr, intravenous, Continuous, Starting on Mon03/17/25 at 1030, For 1 day New Bag 03/17/2025 11:06 AM EDT 50 mL/hr 50 mL/hr dextrose 5 % and sodium chloride 0.45 % infusion 40 mL/hr, intravenous, Continuous, Starting on Mon03/17/25 at 1600, For 1 day New Bag 03/18/2025 6:35 AM EDT 40 mL/hr 40 m L/hr New Bag 03/17/2025 5:05 PM EDT 40 mL/hr 40 mL/hr dextrose 50 % in water (D50W) 50% solution 25 mL 25 mL, intravenous, As needed, low blood sugar, blood glucose less than 70 mg/dL and unconscious or NPO with IV access, Starting on 03/08/25 at 0932, Push over 1-3 minutes STAT. If conscious and not NPO, immediately follow with meal tray or high protein (7 grams) snack if tray not available. If NPO, initiate 5% dextrose in water at 100 mL/hr and contact prescriber for additional orders. If blood glucose is not greater than 70 mg/dL after initial treatment, repeat treatment. VESICANT (RED) Warning: HYPERTONIC solution. diphenoxylate-atropine (LOMOTIL) 2.5-0.025 mg per tablet 1 tablet 1 tablet, oral, 4 times daily, First dose on 03/15/25 at 1315, Not recommend in under 2 years of age. Given 03/15/2025 8:34 PM EDT 1 tablet Given 03/15/2025 3:30 PM EDT 1 tablet diphenoxylate-atropine (LOMOTIL) 2.5-0.025 mg per tablet 2 tablet 2 tablet, oral, 4 times daily, First dose (after last modification) on 03/16/25 at 0900, Not recommend in under 2 years of age. Given 03/21/2025 1:15 PM EDT 2 tablets Given 03/20/2025 11:21 PM EDT 2 tablets Given 03/20/2025 5:09 PM EDT 2 tablets droNABinol (MARINOL) capsule 2.5 mg 2.5 mg, oral, 2 times daily before meals, First dose on 03/17/25 at 1600 Given 03/20/2025 4:02 PM EDT 2.5 mg Given 03/20/2025 8:22 AM EDT 2.5 mg Given 03/19/2025 5:19 PM EDT 2.5 mg EPINEPHrine (ADRENALIN) 10 mg in dextrose 5 % in water (D5W) 250 mL (0.04 mg/mL) infusion intravenous, Continuous PRN, Starting on Mon03/07/25 at 2343, Anesthesia Intra-op Block Chart Start 03/08/2025 12:46 AM EDT 0.3 mcg/kg/min 35.7 mL/hr New Bag 03/07/2025 11:43 PM EDT 0.03 mcg/kg/min 3.573 m L/hr EPINEPHrine (ADRENALIN) 5 mg in dextrose 5 % in water (D5W) 250 mL (0.02 mg/mL) infusion 0.02-0.2 mcg/kg/min 79.4 kg (4.764-47.64 mL/hr, rounded to 4.8-47.6 mL/hr), intravenous, Continuous, Starting on 03/08/25 at 0115, Infuse through a central line. Max 0.5 mcg/kg/min with provider order. Notify prescriber if rate exceeds 0.15 mcg/kg/min. VESICANT (RED) Look-alike/sound-alike medication - verify indication for use., Monitoring Goals: MAP, Monitoring Goal Direction: Greater than or Equal to, Please specify: 65, Starting Dose (range 0.02 to 0.1 mcg/kg/min): Other, Please specify: start at .3 per MD, Titration Dose Range (range 0.01 to 0.05 mcg/kg/min): 0.01 to 0.05 mcg/kg/min, Titration Frequency - As Frequent As (range 1 to 3 minutes): 1 minute, Indication: Hypotension, Sequence of Pressors - Use this medication: First, Wean Sequence: Wean First Rate/Dose Change 03/08/2025 7:35 AM EDT 0.02 mcg/kg/min 4.8 mL/hr Rate/Dose Change 03/08/2025 7:17 AM EDT 0.04 mcg/kg/min 9. 5 mL/hr Rate/Dose Change 03/08/2025 5:11 AM EDT 0.06 mcg/kg/min 14 .3 mL/hr fentaNYL (SUBLIMAZE) infusion 2500 mcg/50 mL (50 mcg/mL premix cmpd) 25-200 mcg/hr (0.5-4 mL/hr), intravenous, Continuous, Starting on 03/08/25 at 0030, Consider utilization of bolus dose with infusion rate changes. Notify prescriber if rate exceeds 100 mcg/hr Look-alike/sound-alike medication - verify indication for use., Monitoring Goals: RASS, Starting Dose (range 25 to 100 mcg/hour): 75 mcg/hr, Titration Dose Range (range 15 to 50 mcg/hour): 15 - 50 mcg/hour, Titration Frequency - As Frequent As: 30 minutes, Indication: Pain, Sedation, Sequence of Sedation- Use this medication: First, Wean Sequence: Wean Second Rate/Dose Change 03/12/2025 8:24 AM EDT 150 mcg/hr 3 mL/hr Rate/Dose Verify 03/12/2025 5:10 AM EDT 200 mcg/hr 4 mL/hr Rate/Dose Change 03/12/2025 1:53 AM EDT 200 mcg/hr 4 mL/hr fentaNYL (SUBLIMAZE) infusion 2500 mcg/50 mL (50 mcg/mL premix cmpd) 25-200 mcg/hr (0.5-4 mL/hr), intravenous, Continuous, Starting on Mon03/12/25 at 0830, Consider utilization of bolus dose with infusion rate changes. Notify prescriber if rate exceeds 100 mcg/hr Look-alike/sound-alike medication - verify indication for use., Monitoring Goals: RASS, Starting Dose (range 25 to 100 mcg/hour): Other, Please specify: continue current rate, Titration Dose Range (range 15 to 50 mcg/hour): 15 - 50 mcg/hour, Titration Frequency - As Frequent As: 30 minutes, Indication: Sedation, Sequence of Sedation- Use this medication: First, Wean Sequence: Wean Second Rate/Dose Change 03/12/2025 9:08 AM EDT 50 mcg/hr 1 mL/hr New Bag 03/12/2025 9:07 AM EDT 100 mcg/hr 2 mL/hr fentaNYL (SUBLIMAZE) injection 25 mcg 25 mcg, intravenous, Once, On 03/08/25 at 0115, For 1 dose, For IVP, must be given slow IV Push over 1 to 2 minutes. Look-alike/sound-alike medication - verify indication for use. Given 03/08/2025 1:05 AM EDT 25 mcg fentaNYL (SUBLIMAZE) injection intravenous, Code/trauma/sedation medication, Starting on Mon02/28/25 at 1415, Intra-op Given 02/28/2025 2:15 PM EDT 100 mcg ferumoxytoL (FERAHEME) 510 mg in sodium chloride 0.9 % 100 mL IVPB 510 mg, intravenous, at 234 mL/hr, Administer over 30 Minutes, Every 3 days, First dose on Shani 02/27/25 at 1100, For 2 doses, Patient in reclined or semi-reclined position. Monitor for at least 30 min after infusion. AVOID the use of H1 antihistamines, such as diphenhydramine, as this may worsen hypersensitivity reactions., Indications: iron deficiency anemiaIndications:iron deficiency anemia New Bag 03/02/2025 4:20 PM EDT 510 mg 234 mL/hr New Bag 02/27/2025 1:27 PM EDT 510 mg 234 mL/hr folic acid (FOLVITE) tablet 1 mg 1 mg, oral, Daily, First dose on Mon03/04/25 at 1100, Look-alike/sound-alike medication - verify indication for use. Given 03/10/2025 9:53 AM EDT 1 mg Given 03/07/2025 10:29 AM EDT 1 mg Given 03/06/2025 8:58 AM EDT 1 mg folic acid (FOLVITE) tablet 1 mg 1 mg, nasogastric, Daily, First dose (after last modification) on Mon03/11/25 at 0900, Look-alike/sound-alike medication - verify indication for use. Given 03/12/2025 9:08 AM EDT 1 mg Given 03/11/2025 10:59 AM EDT 1 mg folic acid (FOLVITE) tablet 1 mg 1 mg, nasogastric, Daily, First dose (after last modification) on Shani 03/13/25 at 0900, Look-alike/sound-alike medication - verify indication for use. Given 03/21/2025 9:01 AM EDT 1 mg Given 03/20/2025 8:22 AM EDT 1 mg Given 03/19/2025 8:08 AM EDT 1 mg furosemide (LASIX) injection 20 mg 20 mg, intravenous, Once, On 03/15/25 at 1015, For 1 dose, Look-alike/sound-alike medication - verify indication for use. IVP rate = 20 mg/min Given 03/15/2025 10:15 AM EDT 20 mg furosemide (LASIX) injection 20 mg 20 mg, intravenous, Once, On Mon03/18/25 at 0945, For 1 dose, Look-alike/sound-alike medication - verify indication for use. IVP rate = 20 mg/min Given 03/18/2025 10:59 AM EDT 20 mg furosemide (LASIX) injection 40 mg 40 mg, intravenous, Once, On 03/09/25 at 1630, For 1 dose, Look-alike/sound-alike medication - verify indication for use. IVP rate = 20 mg/min Given 03/09/2025 4:41 PM EDT 40 mg furosemide (LASIX) injection 40 mg 40 mg, intravenous, Once, On Mon03/10/25 at 1030, For 1 dose, Look-alike/sound-alike medication - verify indication for use. IVP rate = 20 mg/min Given 03/10/2025 10:34 AM EDT 40 mg furosemide (LASIX) injection 40 mg 40 mg, intravenous, 2 times daily, First dose on Mon03/11/25 at 1230, For 2 days, Look-alike/sound-alike medication - verify indication for use. IVP rate = 20 mg/min Given 03/12/2025 9:45 PM EDT 40 mg Given 03/12/2025 12:20 PM EDT 40 mg Given 03/11/2025 8:48 PM EDT 40 mg furosemide (LASIX) injection 40 mg 40 mg, intravenous, Once, On Mon03/17/25 at 1600, For 1 dose, Look-alike/sound-alike medication - verify indication for use. IVP rate = 20 mg/min Given 03/17/2025 5:01 PM EDT 40 mg furosemide (LASIX) injection 40 mg 40 mg, intravenous, Once, On Shani 03/20/25 at 1315, For 1 dose, Look-alike/sound-alike medication - verify indication for use. IVP rate = 20 mg/min Given 03/20/2025 4:04 PM EDT 40 mg furosemide (LASIX) injection 80 mg 80 mg, intravenous, Once, On Mon03/07/25 at 1330, For 1 dose, Look-alike/sound-alike medication - verify indication for use. IVP rate = 20 mg/min Given 03/07/2025 2:31 PM EDT 80 mg glucagon HCL injection 1 mg 1 mg, intramuscular, As needed, low blood sugar, blood glucose less than 70 mg/dL and unconscious or NPO without IV access., Starting on 03/08/25 at 0932, If conscious and not NPO, immediately follow with meal tray or high protein (7Grams) snack if tray not available. If NPO, initiate IV 5% Dextrose/Water at 100 mL/hr and contact prescriber for additional orders. If blood glucose is not greater than 70 mg/dL after initial treatment, repeat treatment. heparin (porcine) injection 5,000 Units 5,000 Units, intravenous, As needed, for Anti-Xa less than 0.2 IU/mL, Starting on Mon02/26/25 at 0452, Look-alike/sound-alike medication - verify indication for use. Observe for bleeding. Given 03/05/2025 6:41 AM EDT 5,000 Units Given 02/26/2025 5:02 AM EDT 5,000 Units heparin infusion 53422 units/500 mL in 0.45% NaCl (50 units/mL premix) 300-3,500 Units/hr (6-70 mL/hr), intravenous, Continuous, Starting on Mon02/25/25 at 1800, For 6 days 7 hours, Please titrate from initial infusion rate listed above. MAXIMUM Initial Infusion: 2100 units/hr Heparin High-Intensity Infusion (Non-Cardiology) Heparin Adjustment Table: Anti-Xa Therapeutic Goal: 0.3 - 0.7 IU/mL Anti-Xa results (IU/mL): Anti-Xa every 6 hours after dosage adjustment until therapeutic x 2 then every AM -less than 0.2 IU/mL: bolus 5000 units, increase rate by 150 units/hr (3 mL/hr), next Anti-Xa in 6 hrs. -0.2 - 0.29 IU/mL: increase rate by 100 units/hr (2 mL/hr), next Anti-Xa in 6 hours. -Notify provider if: Anti-Xa less than 0.3 IU per mL for 2 consecutive results. -0.3 - 0.7 IU/mL: Therapeutic level: next Anti-Xa in 6 hours then every AM. -0.71 - 0.8 IU/mL: decrease rate by 50 units/hr (1 mL/hr), next Anti-Xa in 6 hours. -0.81 - 1.6 IU/mL : stop infusion for 30 minutes, decrease rate by 100 units/hr (2 mL/hr), next Anti-Xa in 6 hours. -1.61 - 2 IU/mL: stop infusion for 60 minutes, decrease rate by 150 units/hr (3 mL/hr), next Anti-Xa in 6 hours. - Greater than 2 IU/mL: stop infusion for 90 minutes, decrease rate by 250 units/hr (5 mL/hr), next Anti-Xa in 6 hours. -Notify provider if: Platelet count less than 100,000/mm3 or less than or equal to 50% of baseline. Monitor for signs of bleeding. Look-alike/sound-alike medication - verify indication for use., Indication: DVT, INITIAL Infusion Dose (Units/hr): 1350 units/hr New Bag 03/03/2025 8:48 AM EDT 1,100 Units/hr 22 mL/hr Rate/Dose Change 03/03/2025 5:59 AM EDT 1,100 Units/hr 22 mL/hr Rate/Dose Change 03/02/2025 10:28 PM EDT 1,100 Units/hr 22 mL/hr heparin infusion 95776 units/500 mL in 0.45% NaCl (50 units/mL premix) 300-2,090 Units/hr (6-41.8 mL/hr), intravenous, Continuous, Starting on Mon03/04/25 at 0745, For 151 hours, Please titrate from initial infusion rate listed above. MAXIMUM Initial Infusion: 2100 units/hr Heparin High-Intensity Infusion (Non-Cardiology) Heparin Adjustment Table: Anti-Xa Therapeutic Goal: 0.3 - 0.7 IU/mL Anti-Xa results (IU/mL): Anti-Xa every 6 hours after dosage adjustment until therapeutic x 2 then every AM -less than 0.2 IU/mL: bolus 5000 units, increase rate by 150 units/hr (3 mL/hr), next Anti-Xa in 6 hrs. -0.2 - 0.29 IU/mL: increase rate by 100 units/hr (2 mL/hr), next Anti-Xa in 6 hours. -Notify provider if: Anti-Xa less than 0.3 IU per mL for 2 consecutive results. -0.3 - 0.7 IU/mL: Therapeutic level: next Anti-Xa in 6 hours then every AM. -0.71 - 0.8 IU/mL: decrease rate by 50 units/hr (1 mL/hr), next Anti-Xa in 6 hours. -0.81 - 1.6 IU/mL : stop infusion for 30 minutes, decrease rate by 100 units/hr (2 mL/hr), next Anti-Xa in 6 hours. -1.61 - 2 IU/mL: stop infusion for 60 minutes, decrease rate by 150 units/hr (3 mL/hr), next Anti-Xa in 6 hours. - Greater than 2 IU/mL: stop infusion for 90 minutes, decrease rate by 250 units/hr (5 mL/hr), next Anti-Xa in 6 hours. -Notify provider if: Platelet count less than 100,000/mm3 or less than or equal to 50% of baseline. Monitor for signs of bleeding. Look-alike/sound-alike medication - verify indication for use., Indication: DVT, INITIAL Infusion Dose (Units/hr): 1100 units/hr Restarted 03/05/2025 2:09 PM EDT 1,250 Units/hr 25 mL/hr Restarted 03/05/2025 6:46 AM EDT 1,350 Units/hr 27 mL/hr Rate/Dose Change 03/04/2025 3:14 PM EDT 1,200 Units/hr 24 mL/hr heparin infusion [id number] units/500 mL in 0.45% NaCl (50 units/mL premix) 300-3,500 Units/hr (6-70 mL/hr), intravenous, Continuous, Starting on Shani 03/06/25 at 1415, Maximum initial infusion: 2100 units/hr Heparin High-Intensity Infusion (Non-Cardiology) Heparin Adjustment Table: aPTT Therapeutic Goal: 60 - 85 Seconds If aPTT results: -less than 50 seconds: bolus 5000 units, increase rate by 150 units/hr (3 mL/hr), next aPTT in 6 hrs. -50 - 59 seconds: increase rate by 100 units/hr (2 mL/hr), next aPTT in 6 hours. -60 - 85 seconds: next aPTT in 6 hours then every AM. -86 - 100 seconds: decrease rate by 50 units/hr (1 mL/hr), next aPTT in 6 hours. -101 - 120 seconds: stop infusion for 30 minutes, decrease rate by 100 units/hr (2 mL/hr), next aPTT in 6 hours. -121 - 150 seconds: stop infusion for 60 minutes, decrease rate by 150 units/hr (3 mL/hr), next aPTT in 6 hours. - Greater than 150 seconds: stop infusion for 60 minutes, decrease rate by 250 units/hr (5 mL/hr), next aPTT in 6 hours. Monitor for signs of bleeding. Look-alike/sound-alike medication - verify indication for use., Indication: Pulmonary Embolism, INITIAL Infusion Dose (Units/hr): 1400 units/hr Rate/Dose Verify 03/07/2025 10:41 AM EDT 1,850 Units/hr 37 mL/hr New Bag 03/07/2025 12:20 AM EDT 1,850 Units/hr 37 mL/hr New Bag 03/06/2025 2:51 PM EDT 2,100 Units/hr 42 mL/hr heparin infusion 15382 units/500 mL in 0.45% NaCl (50 units/mL premix) 300-3,500 Units/hr (6-70 mL/hr), intravenous, Continuous, Starting on 03/08/25 at 1615, Maximum initial infusion: 1000 units/hr Heparin Low Intensity Infusion (Cardiology) Heparin Adjustment Table: aPTT Therapeutic Goal: 50-70 Seconds If aPTT results: -less than 40 seconds: bolus with 2000 units, increase rate by 150 units/hr (3 mL/hr), next aPTT in 6 hrs. -40 - 49 seconds: increase rate by 100 units/hr (2 mL/hr), next aPTT in 6 hours. -50 - 70 seconds: next aPTT in 6 hours then every AM. -71 - 90 seconds: decrease rate by 50 units/hr (1 mL/hr), next aPTT in 6 hours. -91 - 120 seconds: stop infusion for 30 minutes, decrease rate by 100 units/hr (2 mL/hr), next aPTT in 6 hours. -121 - 150 seconds: stop infusion for 60 minutes, decrease rate by 150 units/hr (3 mL/hr), next aPTT in 6 hours. - Greater than 150 seconds: stop infusion for 60 minutes, decrease rate by 250 units/hr (5 mL/hr), next aPTT in 6 hours. Monitor for signs of bleeding. Look-alike/sound-alike medication - verify indication for use., Indication: Pulmonary Embolism, INITIAL Infusion Dose (Units/hr): 950 units/hr Rate/Dose Verify 03/11/2025 5:23 AM EDT 950 Units/hr 19 mL/hr Rate/Dose Verify 03/10/2025 5:16 PM EDT 950 Units/hr 19 mL /hr New Bag 03/10/2025 1:40 PM EDT 950 Units/hr 19 mL/hr heparin infusion [id number] units/500 mL in 0.45% NaCl (50 units/mL premix) 300-3,500 Units/hr (6-70 mL/hr), intravenous, Continuous, Starting on Mon03/11/25 at 1330, Please titrate from initial infusion rate listed above. MAXIMUM initial infusion: 1000 units/hr Heparin Low Intensity Infusion (Cardiology) Heparin Adjustment Table: Anti-Xa Therapeutic Goal: 0.3 - 0.7 IU/mL Anti-Xa results (IU/mL): Ant-Xa every 6 hours after dosage adjustment until therapeutic x 2 then every AM -less than 0.1 IU/mL: bolus 2000 units, increase rate by 150 units/hr (3 mL/hr), next Anti-Xa in 6 hrs. -0.1 - 0.29 IU/mL: increase rate by 100 units/hr (2 mL/hr), next Anti-Xa in 6 hours. -Notify provider if: Anti-Xa less than 0.3 IU per mL for 2 consecutive results. -0.3 - 0.7 IU/mL: Therapeutic level: next Anti-Xa in 6 hours then every AM. -0.71 - 0.8 IU/mL: decrease rate by 50 units/hr (1 mL/hr), next Anti-Xa in 6 hours. -0.81 - 1.6 IU/mL: stop infusion for 30 minutes, decrease rate by 100 units/hr (2 mL/hr), next Anti-Xa in 6 hours. -1.61 - 2 IU/mL: stop infusion for 60 minutes, decrease rate by 150 units/hr (3 mL/hr), next Anti-Xa in 6 hours. - Greater than 2 IU/mL: stop infusion for 90 minutes, decrease rate by 250 units/hr (5 mL/hr), next Anti-Xa in 6 hours. -Notify provider if: Platelet count less than 100,000/mm3 or less than or equal to 50% of baseline Monitor for signs of bleeding. Look-alike/sound-alike medication - verify indication for use., Indication: Pulmonary Embolism, INITIAL Infusion Dose (Units/hr): 950 units/hr New Bag 03/18/2025 11:02 AM EDT 1,050 Units/hr 21 mL/hr New Bag 03/17/2025 10:55 AM EDT 1,050 Units/hr 21 mL/hr Rate/Dose Verify 2025 6:41 PM EDT 1,050 Units/hr 21 mL/hr hydrALAZINE (APRESOLINE) injection 10 mg 10 mg, intravenous, Every 6 hours PRN, high blood pressure, Starting on Mon03/04/25 at 1132, For systolic blood pressure greater than 160 mmHg Look-alike/sound-alike medication - verify indication for use. Administer IV doses as a slow IV push; maximum rate: 5 mg/minute. Given 03/15/2025 12:11 PM EDT 10 mg Given 03/12/2025 3:52 AM EDT 10 mg Given 03/04/2025 1:35 PM EDT 10 mg HYDROmorphone (DILAUDID) injection 0.5 mg 0.5 mg, intravenous, Every 3 hours PRN, moderate pain - pain scale 4-6, Starting on Mon03/12/25 at 2055, If IV push, administer over over 2 to 3 minutes. Look-alike/sound-alike medication - verify indication for use. Given 03/13/2025 9:29 AM EDT 0.5 mg insulin lispro (HumaLOG) injection 2-10 Units 2-10 Units, subcutaneous, Every 6 hours, First dose on Mon03/08/25 at 0345, Daytime hyperglycemia dosing. For blood glucose 151-200 mg/dL, give 2 units. For blood glucose 201-250 mg/dL, give 4 units. For blood glucose 251-300 mg/dL, give 6 units. For blood glucose 301-350 mg/dL, give 8 units. For blood glucose 351-400 mg/dL, give 10 units. Give even if NPO or meals skipped. Do NOT give more often then every 4 hours when NPO. Notify prescriber if blood glucose greater than 400 mg/dL. Look-alike/sound-alike medication - verify indication for use. Prime with 2 units of insulin prior to administration. Prandial/supplemental Insulin. Pre-filled pens stable 28 days at room temperature. Insulin lispro should be administered within 15 minutes before or immediately after a meal. Given 03/08/2025 4:02 AM EDT 6 Units Left Arm insulin lispro (HumaLOG) injection 2-10 Units 2-10 Units, subcutaneous, Every 6 hours, First dose (after last modification) on Mon03/10/25 at 0945, Daytime hyperglycemia dosing. For blood glucose 151-200 mg/dL, give 2 units. For blood glucose 201-250 mg/dL, give 4 units. For blood glucose 251-300 mg/dL, give 6 units. For blood glucose 301-350 mg/dL, give 8 units. For blood glucose 351-400 mg/dL, give 10 units. Give even if NPO or meals skipped. Do NOT give more often then every 4 hours when NPO. Notify prescriber if blood glucose greater than 400 mg/dL. Look-alike/sound-alike medication - verify indication for use. Prime with 2 units of insulin prior to administration. Prandial/supplemental Insulin. Pre-filled pens stable 28 days at room temperature. Insulin lispro should be administered within 15 minutes before or immediately after a meal. Given 03/14/2025 9:45 AM EDT 2 Units Abdominal Tissue insulin lispro (HumaLOG) injection 2-10 Units 2-10 Units, subcutaneous, 4 times daily with meals and nightly, First dose (after last modification) on Mon03/18/25 at 1700, Daytime hyperglycemia dosing. For blood glucose 151-200 mg/dL, give 2 units. For blood glucose 201-250 mg/dL, give 4 units. For blood glucose 251-300 mg/dL, give 6 units. For blood glucose 301-350 mg/dL, give 8 units. For blood glucose 351-400 mg/dL, give 10 units. Give even if NPO or meals skipped. Do NOT give more often then every 4 hours when NPO. Notify prescriber if blood glucose greater than 400 mg/dL. Look-alike/sound-alike medication - verify indication for use. Prime with 2 units of insulin prior to administration. Prandial/supplemental Insulin. Pre-filled pens stable 28 days at room temperature. Insulin lispro should be administered within 15 minutes before or immediately after a meal. insulin lispro (HumaLOG) injection 2-16 Units 2-16 Units, subcutaneous, Every 4 hours, First dose (after last modification) on Mon03/08/25 at 0745, Daytime hyperglycemia dosing. For blood glucose 151-180mg/dL, give 2 units. For blood glucose 181-210mg/dL, give 4 units. For blood glucose 211-240mg/dL, give 6 units. For blood glucose 241-270mg/dL, give 8 units. For blood glucose 271-300mg/dL, give 10 units. For blood glucose 301-350mg/dL, give 12 units For blood glucose 351-400mg/dL, give 16 units For blood glucose >400 call MD Give even if NPO or meals skipped. Do NOT give more often then every 4 hours when NPO. Look-alike/sound-alike medication - verify indication for use. Prime with 2 units of insulin prior to administration. Prandial/supplemental Insulin. Pre-filled pens stable 28 days at room temperature. Insulin lispro should be administered within 15 minutes before or immediately after a meal. Given 03/08/2025 8:32 AM EDT 10 Units Abdominal Tissue insulin lispro (HumaLOG) injection 4 Units 4 Units, subcutaneous, Once, On 03/08/25 at 0600, For 1 dose, Look-alike/sound-alike medication - verify indication for use. Prime with 2 units of insulin prior to administration. Prandial/supplemental Insulin. Pre-filled pens stable 28 days at room temperature. Insulin lispro should be administered within 15 minutes before or immediately after a meal. Given 03/08/2025 6:08 AM EDT 4 Units Right Arm insulin regular (MYXREDLIN) infusion 100 units/100 mL in sodium chloride 0.9% (1 unit/mL premix) 0.2-54 Units/hr (0.2-54 mL/hr), intravenous, Continuous, Starting on 03/08/25 at 0945, Insulin Infusion Orders: Initiating Infusion: Use the patient's current blood glucose result and guidelines in Table A Column 2 to initiate infusion. Rules for Column changes after initiating drip: Determine hourly drip rate by comparing the current blood glucose result to previous blood glucose result with guidelines in Table B to adjust insulin infusion. Rules for Column 7-9 changes: use the patient's current blood glucose result and guidelines in Table B and Table C to adjust high dose insulin infusion. Stop Insulin Infusion for potassium level 3.3 mmol/L or less and notify prescriber. Obtain orders for potassium replacement, if not already ordered. When insulin drip is off and potassium is greater than 3.4 mmol/L, notify provider for orders to resume insulin infusion. *Do not change insulin drip rate for 2 hours if correction scale given for meal. Notify prescriber if blood glucose greater than 400 mg/dL. Look-alike/sound-alike medication. Verify indication for use. Rate/Dose Change 03/08/2025 2:09 PM EDT 0.5 Units/hr 0.5 mL/hr Rate/Dose Verify 03/08/2025 1:38 PM EDT 2.5 Units/hr 2.5 m L/hr Rate/Dose Change 03/08/2025 12:58 PM EDT 2.5 Units/hr 2.5 mL/hr iohexoL (OMNIPAQUE) 350 mg iodine/mL injection 100 mL 100 mL, intravenous, Once in imaging, contrast, Starting on 02/25/25 at 1856, For 1 dose, VESICANT (RED) Given 02/25/2025 6:57 PM EDT 100 mL iohexoL (OMNIPAQUE) 350 mg iodine/mL injection 100 mL 100 mL, intravenous, Once in imaging, contrast, Starting on 03/08/25 at 0802, For 1 dose, VESICANT (RED) Given 03/08/2025 8:04 AM EDT 100 mL lactated ringers bolus 500 mL, intravenous, at 968 mL/hr, Administer over 31 Minutes, Once, On 03/08/25 at 0700, For 1 dose New Bag 03/08/2025 7:07 AM EDT 500 mL 968 mL/hr lactated ringers infusion 100 mL/hr, intravenous, Continuous, Starting on 03/08/25 at 0615, For 1 day Rate/Dose Verify 03/09/2025 4:13 AM EDT 100 mL/hr Rate/Dose Verify 03/08/2025 8:44 PM EDT 100 mL/ hr Restarted 03/08/2025 8:41 PM EDT 100 mL/hr lactated ringers infusion 100 mL/hr, intravenous, Continuous, Starting on 03/09/25 at 0515, For 1 day New Bag 03/09/2025 6:02 AM EDT 100 mL/hr 100 mL/hr lidocaine (SALONPAS) 4 % 1 patch 1 patch, transdermal, Administer over 12 Hours, Daily, First dose on Shani 03/13/25 at 1245, Apply to intact skin. Avoid incisions. Patch(es) may remain in place for up to 12 hours in any 24-hour period. Remove previous patch, if present, before applying new. Medication Applied 03/21/2025 9:01 AM EDT 1 patch Other Medication Applied 03/20/2025 8:22 AM EDT 1 patch Other Medication Applied 03/19/2025 8:08 AM EDT 1 patch Other lidocaine PF (XYLOCAINE) 10 mg/mL (1 %) injection infiltration, Code/trauma/sedation medication, Starting on Mon02/28/25 at 1345, Intra-op Given 02/28/2025 2:23 PM EDT 10 mL Opera tive Site Given 02/28/2025 1:45 PM EDT 10 mL Op erative Site magnesium sulfate IVPB 2000 mg/50 mL in iso-osmotic water (40 mg/mL premix) 2,000 mg, intravenous, at 25 mL/hr, Administer over 120 Minutes, As needed, for magnesium level 1.7 to 1.9 mg/dL or ionized magnesium level 0.45 to 0.5 mmol/L, Starting on 03/08/25 at 0027, Use premix solution. Default to ionized magnesium level in cases where patient has both magnesium and ionized magnesium results. If administered, check ionized magnesium (or total magnesium if ionized magnesium unavailable) level 4 hours after infusion. New Bag 03/17/2025 5:04 AM EDT 2,000 mg 25 mL/hr New Bag 2025 4:17 AM EDT 2,000 mg 25 mL/hr Rate/Dose Verify 03/13/2025 6:36 AM EDT 25 mL/h r magnesium sulfate IVPB 4000 mg/100 mL in iso-osmotic water (40 mg/mL premix) 4,000 mg, intravenous, at 25 mL/hr, Administer over 240 Minutes, As needed, for magnesium level 1.6 mg/mL or less, or ionized magnesium level 0.44 mmol/L or less, Starting on 03/08/25 at 0027, Use premix solution. Default to ionized magnesium level in cases where patient has both magnesium and ionized magnesium results. If administered, check ionized magnesium (or total magnesium if ionized magnesium unavailable) level 4 hours after infusion. megestroL (MEGACE) chemo tablet 60 mg 60 mg, oral, 4 times daily, First dose on 03/15/25 at 1315, HAZARDOUS - Do NOT crush or split tablets. Given 03/15/2025 7:33 PM EDT 60 mg Given 03/15/2025 3:30 PM EDT 60 mg megestroL (MEGACE) chemo tablet 60 mg 60 mg, oral, 4 times daily, First dose (after last reorder) on 03/16/25 at 1000, HAZARDOUS - Do NOT crush or split tablets. Given 03/17/2025 8:07 AM EDT 6 0 mg Given 2025 9:05 PM EDT 60 mg Given 2025 5:14 PM EDT 60 mg methocarbamoL (ROBAXIN) tablet 500 mg 500 mg, oral, Every 6 hours PRN, muscle spasms, Starting on Shani 03/13/25 at 1228 metroNIDAZOLE (FLAGYL) IVPB 500 mg/100 mL in iso-osmotic sodium chloride (5 mg/mL premix) 500 mg, intravenous, at 100 mL/hr, Administer over 60 Minutes, Every 12 hours, First dose on Mon03/03/25 at 2100, For 5 doses, Look-alike/sound-alike medication - verify indication for use., Indication: Intra-abdominal New Bag 03/05/2025 8:30 PM EDT 500 mg 100 mL/hr New Bag 03/05/2025 8:45 AM EDT 500 mg 100 mL/hr New Bag 03/04/2025 9:10 PM EDT 500 mg 100 mL/hr metroNIDAZOLE (FLAGYL) IVPB 500 mg/100 mL in iso-osmotic sodium chloride (5 mg/mL premix) 500 mg, intravenous, at 100 mL/hr, Administer over 60 Minutes, Every 12 hours, First dose on Mon03/07/25 at 1600, For 11 doses, Look-alike/sound-alike medication - verify indication for use., Indication: Intra-abdominal New Bag 03/12/2025 4:32 PM EDT 500 mg 100 mL/hr New Bag 03/12/2025 3:28 AM EDT 500 mg 100 mL/hr Rate/Dose Verify 03/11/2025 4:54 PM EDT 100 mL/ hr metroNIDAZOLE (FLAGYL) tablet 500 mg 500 mg, oral, Every 12 hours scheduled, First dose on 03/01/25 at 1215, Food-Drug Interaction Education Required Look-alike/sound-alike medication - verify indication for use Ethanol: Use of ethanol is contraindicated during therapy and for 3 days after therapy discontinuation, Indication: Intra-abdominal Given 03/03/2025 8:51 AM EDT 500 mg Given 03/02/2025 9:32 PM EDT 500 mg Given 03/02/2025 10:05 AM EDT 500 mg midazolam (PF) (VERSED) infusion in sodium chloride 0.9% (1 mg/mL premix) (sedation) 0.5-7 mg/hr (0.5-7 mL/hr), intravenous, Continuous, Starting on 03/08/25 at 0030, Consider utilization of bolus dose with infusion rate changes. Notify prescriber if dose exceeds 3 mg/hour, Monitoring Goals: RASS, Starting Dose (range 0.2 to 4 mg/hr): 0.2 mg/hr, Titration Dose Range (range 0.2 to 0.5 mg/hr): 0.2 - 0.5 mg/hour, Titration Frequency - As Frequent As: 15 minutes, Indication: Sedation, Sequence of Sedation- Use this medication: Second, Wean Sequence: Wean First Rate/Dose Verify 03/10/2025 5:06 AM EDT 0.5 mg/hr 0.5 mL/hr Restarted 03/10/2025 3:31 AM EDT 0.5 mg/hr 0.5 mL/hr Continued by Anesthesia 03/09/2025 8:44 AM EDT 0.5 mg/hr 0.5 mL/hr midazolam (VERSED) bolus from bag 2 mg 2 mg, intravenous, Administer over 5 Minutes, Once, On 03/08/25 at 0100, For 1 dose Bolus from Bag 03/08/2025 1:00 AM EDT 2 mg midazolam (VERSED) bolus from bag 2 mg 2 mg, intravenous, Administer over 1 Minutes, Once, On 03/08/25 at 0115, For 1 dose Bolus from Bag 03/08/2025 1:15 AM EDT 2 mg norepinephrine (LEVOPHED) infusion 8 mg/250 mL in sod chlor 0.9% (0.032 mg/mL PMX) 0.01-0.4 mcg/kg/min 79.4 kg (1.4888-59.55 mL/hr, rounded to 1.5-59.6 mL/hr), intravenous, Continuous, Starting on Mon03/08/25 at 0745, Preferred central line administration. Doses greater than 0.4 mcg/kg/min are rarely useful. Max 1 mcg/kg/min with provider order. Notify prescriber if rate exceeds 0.2 mcg/kg/min. VESICANT (RED) Requires Smart Pump., Monitoring Goals: MAP, Monitoring Goal Direction: Greater than or Equal to, Please specify: MAP > 65, Starting Dose (range 0.01 to 0.1 mcg/kg/min): 0.02 mcg/kg/min, Titration Dose Range (range 0.01 to 0.05 mcg/kg/min): 0.01 to 0.05 mcg/kg/min, Titration Frequency - As Frequent As (range 1 to 3 minutes): 1 minute, Indication: Hypotension, Sequence of Pressors - Use this medication: First, Wean Sequence: Wean First Restarted 03/10/2025 1:39 AM EDT 0.02 mcg/kg/min 3 mL/hr Rate/Dose Change 03/09/2025 6:55 PM EDT 0.02 mcg/kg/min 3 mL/hr Rate/Dose Verify 03/09/2025 6:41 PM EDT 0.03 mcg/kg/min 4. 5 mL/hr ondansetron (PF) (ZOFRAN) injection 4 mg 4 mg, intravenous, Every 4 hours PRN, nausea, vomiting, Starting on Mon02/25/25 at 1739, Intravenous administration preferred to be given over 2-5 minutes. Given 03/15/2025 6:08 AM EDT 4 mg Given 03/04/2025 5:00 PM EDT 4 mg ondansetron (PF) (ZOFRAN) injection 4 mg 4 mg, intravenous, As needed, nausea, vomiting, Starting on 03/15/25 at 0803, Intravenous administration preferred to be given over 2-5 minutes. ondansetron ODT (ZOFRAN ODT) disintegrating tablet 8 mg 8 mg, oral, As needed, nausea, vomiting, Starting on 03/15/25 at 0803 oxyCODONE (ROXICODONE) immediate release tablet 2.5 mg 2.5 mg, oral, Every 4 hours PRN, moderate pain - pain scale 4-6, Starting on Shani 03/13/25 at 1225, Look-alike/sound-alike medication - verify indication for use. Immediate release. Given 03/17/2025 9:37 AM EDT 2.5 mg oxyCODONE (ROXICODONE) immediate release tablet 5 mg 5 mg, oral, Every 4 hours PRN, severe pain - pain scale 7-10, Starting on Shani 03/13/25 at 1225, Look-alike/sound-alike medication - verify indication for use. Immediate release. pantoprazole (PROTONIX) EC tablet 40 mg 40 mg, oral, Every morning before breakfast, First dose on Mon02/25/25 at 1800, Look-alike/sound-alike medication - verify indication for use. If patient is receiving enteral feeding, consider alternative PPI or continue IV pantoprazole until the delayed-release tablet can be taken orally, Indication: Stress Ulcer Prophylaxis (Contraindication to H2RA) Given 03/06/2025 5:33 AM EDT 40 mg Given 03/05/2025 5:31 AM EDT 40 mg Given 03/03/2025 5:35 AM EDT 40 mg pantoprazole (PROTONIX) EC tablet 40 mg 40 mg, oral, Every morning before breakfast, First dose on Mon03/15/25 at 0815, Look-alike/sound-alike medication - verify indication for use. If patient is receiving enteral feeding, consider alternative PPI or continue IV pantoprazole until the delayed-release tablet can be taken orally, Indication: GERD Given 03/21/2025 9:01 AM EDT 40 mg Given 03/20/2025 8:22 AM EDT 40 mg Given 03/18/2025 9:11 AM EDT 40 mg pantoprazole (PROTONIX) injection 40 mg 40 mg, intravenous, Every 12 hours, First dose on Mon03/07/25 at 1500, Look-alike/sound-alike medication - verify indication for use., Indication: Other (ROEL) Given 03/11/2025 2:32 AM EDT 40 mg Given 03/10/2025 3:47 PM EDT 40 mg Given 03/10/2025 3:39 AM EDT 40 mg pantoprazole (PROTONIX) injection 40 mg 40 mg, intravenous, Every 24 hours scheduled, First dose (after last modification) on Mon03/12/25 at 0900, Look-alike/sound-alike medication - verify indication for use., Indication: Other (ROEL) Given 03/14/2025 8:15 AM EDT 40 mg Given 03/13/2025 8:00 AM EDT 40 mg Given 03/12/2025 9:08 AM EDT 40 mg pantoprazole (PROTONIX) injection 40 mg 40 mg, intravenous, Every morning before breakfast, First dose on 03/15/25 at 0815, Look-alike/sound-alike medication - verify indication for use., Indication: Other (ROEL) Given 03/19/2025 6:26 AM EDT 40 mg Given 03/17/2025 8:07 AM EDT 40 mg perflutren lipid microspheres (DEFINITY) dilution injection 1.43 mg/10 mL 2 mL, intravenous, As needed, contrast, Starting on 03/08/25 at 0842, For 6 hours, Additional Imaging Orders, Dilute 1.3 mL of Definity with 8.7mL of 0.9% NaCl in 10 mL syringe Administer 2 mL perflutren (Definity) contrast if 2 contiguous segments of the LV are not well visualized. May repeat 2 mL dose until LV visualization is accomplished. Procedure total dose not to exceed 10 mL. Given 03/08/2025 8:51 AM EDT 2 mL phytonadione (Vitamin K) (AQUA-MEPHYTON) 10 mg in sodium chloride 0.9 % 50 mL IVPB 10 mg, intravenous, at 102 mL/hr, Administer over 30 Minutes, Once, On Mon03/07/25 at 1545, For 1 dose New Bag 03/07/2025 4:17 PM EDT 10 mg 102 mL/hr polyethylene glycol (GLYCOLAX) packet 119 g 119 g, oral, Every 8 hours, First dose on Mon03/04/25 at 1300, For 3 doses, Mix 7 capfuls of polyethylene glycol (PEG) with 32 ounces of Gatorade or clear juice (avoid red-colored beverages). Add ice if desired to improve taste. Administer the solution to the patient. Ensure the entire volume is consumed. Look-alike/sound-alike medication - verify indication for use. Dissolve 1 packet (17 gm) in 8 ounces of water, juice, soda, coffee or tea. Given 03/05/2025 9:00 AM EDT 119 g Given 03/04/2025 9:12 PM EDT 119 g Given 03/04/2025 1:40 PM EDT 119 g polyethylene glycol (GLYCOLAX) powder 238 g 238 g, oral, Once, On 03/02/25 at 1600, For 1 dose, Scheduling/ADT, Split between two 32 ounce bottles of electrolyte replacement drink. Administration Instructions: please use Gatorade or Powerade to mix with Miralax. Begin at 1600, and give 8 ounces every 15 minutes until 64 ounces consumed. Do not use red colored drink. Given 03/02/2025 4:25 PM EDT 238 g polyethylene glycol-electrolytes (NULYTELY) solution 4,000 mL 4,000 mL, oral, Once, On Shani 02/27/25 at 1600, For 1 dose, Scheduling/ADT, Begin at 1600, and give 250 mL every 10 minutes until 4000 mL consumed Must reconstitute entire bottle with 4000mL of water and then administer the dose prescribed. Stable for 48 hours in refrigerator after mixing. Given 02/27/2025 3:30 PM EDT 4,000 mL potassium chloride (K-TAB,KLOR-CON) CR tablet 20-50 mEq 20-50 mEq, oral, As needed, for potassium replacement, Starting on 03/08/25 at 0027, Progress to oral potassium replacement when patient tolerating oral intake. If dose administered, recheck potassium level 4 hours after last dose. For potassium level 3.4 to 3.8 mmol/L and Serum Creatinine 1.2 or less=30 mEq. For potassium level 3.1 to 3.3 mmol/L and Serum Creatinine 1.2 or less=40 mEq. For potassium level 3 mmol/L or less and Serum Creatinine 1.2 or less=50 mEq. Forpotassium level 3.4 to 3.8 mmol/L and Serum Creatinine greater than 1.2=20 mEq. For potassium level 3.1 to 3.3 mmol/L and Serum Creatinine greater than 1.2=30 mEq. For potassium level 3 mmol/L or less and Serum Creatinine greater than 1.2=40 mEq. Do not crush or chew. Given 03/15/2025 3:31 PM EDT 30 mEq potassium chloride (K-TAB,KLOR-CON) CR tablet 30-50 mEq 30-50 mEq, oral, As needed, Potassium Supplementation, Starting on 02/25/25 at 1741, Progress to oral potassium replacement when patient tolerating oral intake. If dose administered, recheck potassium level 4 hours after last dose. For potassium level 3.4 to 3.8 mmol/L and GFR 30 mL/min or greater=30 mEq. For potassium level 3.1 to 3.3 mmol/L and GFR 30 mL/min or greater=40 mEq. For potassium level 3 mmol/L or less and GFR 30 mL/min or greater=50 mEq. Do not crush or chew. Given 03/04/2025 3:34 PM EDT 30 mEq potassium chloride (KAYCIEL) 20 mEq/15 mL solution 20-50 mEq 20-50 mEq, oral, As needed, potassium replacement, Starting on 03/08/25 at 0027, Progress to oral potassium replacement when patient tolerating oral intake. If dose administered, recheck potassium level 4 hours after last dose. For potassium level 3.4 to 3.8 mmol/L and Serum Creatinine 1.2 or less=30 mEq (22.5mL). For potassium level 3.1 to 3.3 mmol/L and Serum Creatinine 1.2 or less=40 mEq (30mL). For potassium level 3 mmol/L or less and Serum Creatinine 1.2 or less=50 mEq (37.5mL). For potassium level 3.4 to 3.8 mmol/L and Serum Creatinine greater than 1.2=20 mEq (15mL). For potassium level 3.1 to 3.3 mmol/L and Serum Creatinine greater than 1.2=30 mEq (22.5mL). For potassium level 3 mmol/L or less and Serum Creatinine greater than 1.2=40 mEq (30mL). Must dilute before use - Mix in 3-8 ounces of water or juice before administration When administering in feeding tube, flush before and after per policy and monitor potassium levels Given 2025 4:11 AM EDT 30 mEq Given 03/14/2025 10:05 PM EDT 30 mEq Given 03/14/2025 3:42 AM EDT 30 mEq potassium chloride IVPB 10 mEq/100 mL in water (0.1 mEq/mL premix) 10 mEq, intravenous, at 100 mL/hr, Administer over 60 Minutes, As needed, for potassium replacement, Starting on 03/08/25 at 0027, Administer Potassium Chloride IVPB in 10 mEq increments. Maximum infusion rates: Central Line = 20 mEq/hour; Peripheral Line = 10 mEq/hour (10 mEq/100 mL). If dose administered, recheck potassium level 1 hour after infusion complete. For potassium level 3.4 to 3.8 mmol/L and Serum Creatinine 1.2 or less = 30 mEq For potassium level 3.1 to 3.3 mmol/L and Serum Creatinine 1.2 or less = 40 mEq For potassium level 3 mmol/L or less and Serum Creatinine 1.2 or less = 50 mEq For potassium level 3.4 to 3.8 mmol/L and Serum Creatinine greater than 1.2 = 20 mEq For potassium level 3.1 to 3.3 mmol/L and Serum Creatinine greater than 1.2 = 30 mEq For potassium level 3 mmol/L or less and Serum Creatinine greater than 1.2 = 40 mEq VESICANT (YELLOW) Infuse each 10 mEq over a minimum of 1 hour. potassium chloride IVPB 10 mEq/50 mL in water (0.2 mEq/mL premix) 10 mEq, intravenous, at 50 mL/hr, Administer over 1 Hours, As needed, for potassium replacement, Starting on 03/08/25 at 0027, Administer Potassium Chloride IVPB in 10 mEq increments. Maximum infusion rates: Central Line = 20 mEq/hour. Administer via Central Line Only. If dose administered, recheck potassium level 1 hour after infusion complete. For potassium level 3.4 to 3.8 mmol/L and Serum Creatinine 1.2 or less = 30 mEq For potassium level 3.1 to 3.3 mmol/L and Serum Creatinine 1.2 or less = 40 mEq For potassium level 3 mmol/L or less and Serum Creatinine 1.2 or less = 50 mEq For potassium level 3.4 to 3.8 mmol/L and Serum Creatinine greater than 1.2 = 20 mEq For potassium level 3.1 to 3.3 mmol/L and Serum Creatinine greater than 1.2 = 30 mEq For potassium level 3 mmol/L or less and Serum Creatinine greater than 1.2 = 40 mEq VESICANT (YELLOW) Restarted 03/12/2025 12:24 PM EDT 50 mL/hr New Bag 03/12/2025 11:26 AM EDT 10 mEq 50 mL/hr New Bag 03/12/2025 10:17 AM EDT 10 mEq 50 mL/hr sod phos di, mono-K phos mono (K-PHOS NEUTRAL) 250 mg tablet 2 tablet 2 tablet, oral, As needed, for phosphorous level 2.3 mg/dL or less, Starting on 03/08/25 at 0027, If dose administered, recheck phosphorus level 4 hours after last dose. Look-alike/sound-alike medication - verify indication for use. Give with a full glass of water. Given 03/15/2025 3:29 PM EDT 2 tablets Given 03/14/2025 5:41 PM EDT 2 tablets sodium bicarbonate 8.4 % (1 mEq/mL) injection 100 mEq 100 mEq, intravenous, Once, On 03/08/25 at 0100, For 1 dose, VESICANT (RED) Given 03/08/2025 12:49 AM EDT 100 mEq sodium chloride 0.9 % flush 10 mL 10 mL, intravenous, As needed, line care, Starting on Mon02/25/25 at 1856 Given 02/25/2025 6:57 PM EDT 10 mL sodium chloride 0.9 % flush 10 mL 10 mL, intravenous, As needed, line care, Starting on Mon03/08/25 at 0802 Given 03/08/2025 8:04 AM EDT 10 mL sodium chloride 0.9 % flush 10 mL 10 mL, intravenous, Every 8 hours, First dose on Mon03/12/25 at 0930, Short-term Central Line. IVP to lumens. Given 03/15/2025 5:30 PM EDT 10 mL Given 03/15/2025 9:01 AM EDT 10 mL Given 03/14/2025 5:30 PM EDT 10 mL sodium chloride 0.9 % flush 20 mL 20 mL, intravenous, As needed, line care, Starting on Mon03/12/25 at 0925, Short-term Central Line. IVP to lumens after lab draws, blood infusion, and meds known to precipitate. Given 03/12/2025 10:17 AM EDT 20 mL sodium chloride 0.9 % flush 3 mL 3 mL, intravenous, Every 12 hours scheduled, First dose on Mon02/25/25 at 2100 Given 03/07/2025 10:30 AM EDT 3 mL Given 03/06/2025 9:05 PM EDT 3 mL Given 03/06/2025 8:59 AM EDT 3 mL sodium chloride 0.9 % infusion 20 mL/hr, intravenous, Continuous PRN, to maintain patency of lines, Starting on Mon02/25/25 at 1739 Rate/Dose Verify 03/11/2025 5:23 AM EDT 50 mL/hr 50 mL/hr Rate/Dose Verify 03/10/2025 5:16 PM EDT 50 mL/hr 50 mL/h r Continued by Anesthesia 03/09/2025 8:44 AM EDT 50 mL/hr sodium chloride 0.9 % infusion 3 mL/hr, intra-arterial, Continuous, Starting on Mon03/09/25 at 2015 Rate/Dose Verify 2025 6:41 PM EDT 3 mL/hr 3 mL/hr Rate/Dose Verify 03/14/2025 6:14 AM EDT 3 mL/hr 3 mL/hr Rate/Dose Verify 03/14/2025 4:01 AM EDT 3 mL/hr 3 mL/hr sodium chloride 0.9 % radiology injection 80 mL, intravenous, Once in imaging, pre/post contrast, Starting on Mon02/25/25 at 1856, For 1 dose Given 02/25/2025 6:57 PM EDT 80 mL sodium chloride 0.9 % radiology injection 80 mL, intravenous, Once in imaging, pre/post contrast, Starting on 03/08/25 at 0802, For 1 dose Given 03/08/2025 8:04 AM EDT 80 mL sodium phosphate 20 mmol in sodium chloride 0.9 % 100 mL IVPB 20 mmol, intravenous, at 26.7 mL/hr, Administer over 4 Hours, As needed, for phosphorous level 2.3 mg/dL or less, Starting on 03/08/25 at 0027, Administer over 4 hours via dedicated line(central line). If administered, recheck phosphorus level 4 hours after infusion complete. Infuse using central line access. New Bag 03/15/2025 5:21 AM EDT 20 mmol 26.7 mL/hr Restarted 03/14/2025 7:58 AM EDT 26.8 mL/hr Rate/Dose Verify 03/14/2025 6:14 AM EDT 26.8 mL /hr sodium phosphate 20 mmol in sodium chloride 0.9 % 250 mL IVPB 20 mmol, intravenous, at 42.8 mL/hr, Administer over 6 Hours, As needed, for phosphorous level 2.3 mg/dL or less, Starting on 03/08/25 at 0027, Administer over 6 hours via dedicated line (peripheral line). If administered, recheck phosphorus level 4 hours after infusion complete. New Bag 2025 1:50 AM EDT 20 mmol 42.8 mL/hr sodium,potassium,mag sulfates (SUPREP) 17.5-3.13-1.6 gram solution 177 mL 177 mL, oral, Once, On 03/03/25 at 1200, For 1 dose, Scheduling/ADT, Evening before procedure, drink 1 bottle diluted to a final volume of 480 mL (16 oz). Follow with 960 mL (32 oz) water over the next hour Dilute one 177 mL bottle with cool water to 16 ounces using supplied mixing cup prior to giving dose. Give 1 dose the evening before procedure and 2nd dose the morning of procedure. After each dose, have patient drink 32 ounces of water within 1 hour. Complete regimen 2 hours before procedure. Given 03/03/2025 12:50 PM EDT 177 mL vasopressin (PITRESSIN) 40 Units in sodium chloride 0.9 % 40 mL (1 Units/mL) infusion 0.04 Units/min (2.4 mL/hr), intravenous, Continuous, Starting on 03/08/25 at 0115, *For SEPSIS use* VESICANT (RED) Rate/Dose Verify 03/09/2025 4:29 PM EDT 0.04 Units/min 2.4 mL/hr New Bag 03/09/2025 3:57 PM EDT 0.04 Units/min 2.4 mL/hr Rate/Dose Verify 03/09/2025 3:02 PM EDT 0.04 Units/min 2.4 mL/hr documented in this encounter Active and Recently Administered Medications Times are shown in EDT. Scheduled Medication Order 03/19/2025 03/20/2025 03/21/2025 acetaminophen (TYLENOL) tablet 650 mg 650 mg, oral, Every 6 hours, First dose on Shani 03/13/25 at 1245 0236 (Given - Provider: Dolly Segura RN)0808 (Given - Provider: Ana Mead RN)1430 (Not Given - Provider: Ana Mead RN - Reason: Patient/family refused)1935 (Given - Provider: Luis Armando Ivy RN) 0120 (Given - Provider: Luis Armando Ivy RN)0822 (Not Given - Provider: Justine Sanchez RN - Reason: Patient/family refused)1430 (Not Given - Provider: Justine Sanchez RN - Reason: Patient/family refused)2030 (Not Given - Provider: Yumiko Mclaughlin RN - Reason: Patient/family refused) 0230 (Not Given - Provider: Yumiko Mclaughlin RN - Reason: Patient/family refused)0830 (Not Given - Provider: Justine Sanchez RN - Reason: Patient/family refused)1430 (Due) apixaban (ELIQUIS) tablet 5 mg 5 mg, oral, 2 times daily, First dose on Mon03/19/25 at 1130, Indication: Prevention of VTE Recurrence 1159 (Given - Provider: Ana Mead RN)1936 (Given - Provider: Luis Armando Ivy RN) 0822 (Given - Provider: Justine Sanchez RN)2145 (Given - Provider: Yumiko Mclaughlin RN) 0901 (Given - Provider: Justine Sanchez RN) diphenoxylate-atropine (LOMOTIL) 2.5-0.025 mg per tablet 2 tablet 2 tablet, oral, 4 times daily, First dose (after last modification) on Mon03/16/25 at 0900, Not recommend in under 2 years of age. 0808 (Given - Provider: Ana Mead RN)1200 (Given - Provider: Ana Mead RN)1719 (Given - Provider: Ana Mead RN)2141 (Given - Provider: Luis Armando Ivy RN) 0822 (Given - Provider: Justine Sanchez RN)1300 (Not Given - Provider: Justine Sanchez RN - Reason: Patient/family refused)1709 (Given - Provider: Justine Sanchez RN)2321 (Given - Provider: Yumiko Mclaughlin RN) 0900 (Not Given - Provider: Justine Sanchez RN - Reason: Other - Comment: not recieved from pharmacy)1315 (Given - Provider: Justine Sanchez RN) droNABinol (MARINOL) capsule 2.5 mg 2.5 mg, oral, 2 times daily before meals, First dose on Mon03/17/25 at 1600 0626 (Given - Provider: Dolly Segura, NATA)1719 (Given - Provider: Ana Mead, NATA) 0822 (Given - Provider: Justine Sanchez RN)1602 (Given - Provider: Justine Sanchez RN) 0800 (Not Given - Provider: Justine Sanchez RN - Reason: Other - Comment: not recieved from pharmacy)1600 (Due) folic acid (FOLVITE) tablet 1 mg 1 mg, nasogastric, Daily, First dose (after last modification) on Mon03/13/25 at 0900, Look-alike/sound-alike medication - verify indication for use. 0808 (Given - Provider: Ana Mead RN) 0822 (Given - Provider: Justine Sanchez RN) 0901 (Given - Provider: Justine Sanchez RN) furosemide (LASIX) injection 40 mg (COMPLETED) 40 mg, intravenous, Once, On Mon03/20/25 at 1315, For 1 dose, Look-alike/sound-alike medication - verify indication for use. IVP rate = 20 mg/min 1604 (Given - Provider: Justine Sanchez RN) insulin lispro (HumaLOG) injection 2-10 Units 2-10 Units, subcutaneous, 4 times daily with meals and nightly, First dose (after last modification) on Mon03/18/25 at 1700, Daytime hyperglycemia dosing. For blood glucose 151-200 mg/dL, give 2 units. For blood glucose 201-250 mg/dL, give 4 units. For blood glucose 251-300 mg/dL, give 6 units. For blood glucose 301-350 mg/dL, give 8 units. For blood glucose 351-400 mg/dL, give 10 units. Give even if NPO or meals skipped. Do NOT give more often then every 4 hours when NPO. Notify prescriber if blood glucose greater than 400 mg/dL. Look-alike/sound-alike medication - verify indication for use. Prime with 2 units of insulin prior to administration. Prandial/supplemental Insulin. Pre-filled pens stable 28 days at room temperature. Insulin lispro should be administered within 15 minutes before or immediately after a meal. 0800 (Not Given - Provider: Ana Mead RN - Reason: Order parameters not met)1200 (Not Given - Provider: Ana Mead RN - Reason: Order parameters not met)1700 (Not Given - Provider: Ana Mead RN - Reason: Order parameters not met)2100 (Not Given - Provider: Luis Armando Ivy RN - Reason: Order parameters not met) 0800 (Not Given - Provider: Justine Sanchez RN - Reason: Order parameters not met)1200 (Not Given - Provider: Justine Sanchez RN - Reason: Order parameters not met)1700 (Not Given - Provider: Justine Sanchez RN - Reason: Order parameters not met)2200 (Not Given - Provider: Yumiko Mclaughlin RN - Reason: Order parameters not met) 0800 (Not Given - Provider: Justine aSnchez RN - Reason: Order parameters not met)1200 (Not Given - Provider: Justine Sanchez RN - Reason: Order parameters not met) lidocaine (SALONPAS) 4 % 1 patch 1 patch, transdermal, Administer over 12 Hours, Daily, First dose on Mon03/13/25 at 1245, Apply to intact skin. Avoid incisions. Patch(es) may remain in place for up to 12 hours in any 24-hour period. Remove previous patch, if present, before applying new. 08 (Medication Applied - Provider: Ana Mead RN - Comment: abdomen)2007 (Medication Removed - Provider: Luis Armando Ivy RN) 821 (Medication Applied - Provider: Justine Sanchez RN)2021 (Medication Removed - Provider: Yumiko Mclaughlin RN) 09 (Medication Applied - Provider: Justine Sanchez RN)2100 (Due: Medication Removed - Provider: Justine Sanchez RN) pantoprazole (PROTONIX) EC tablet 40 mg(Linked Group 1) 40 mg, oral, Every morning before breakfast, First dose on 03/15/25 at 0815, Look-alike/sound-alike medication - verify indication for use. If patient is receiving enteral feeding, consider alternative PPI or continue IV pantoprazole until the delayed-release tablet can be taken orally, Indication: GERD 0626 (See Alternative - Provider: Dolly Segura RN) 0822 (Given - Provider: Justine Sanchze RN) 0901 (Given - Provider: Justine Sanchez RN - Comment: per pt preference) pantoprazole (PROTONIX) injection 40 mg(Linked Group 1) 40 mg, intravenous, Every morning before breakfast, First dose on 03/15/25 at 0815, Look-alike/sound-alike medication - verify indication for use., Indication: Other (ROEL) 0626 (Given - Provider: Dolly Segura RN) 0822 (See Alternative - Provider: Justine Sanchez RN) 0901 (See Alternative - Provider: Justine Sanchez RN) Continuous Medication Order 03/19/2025 03/20/2025 03/21/2025 sodium chloride 0.9 % infusion 3 mL/hr, intra-arterial, Continuous, Starting on 03/09/25 at 2015 1823 (Due: Order End ing - Provider: Automatic Discharge Provider - Comment: [Order ends at this time. Document the following action when infusion is complete: Stop Bag]) PRN Medication Order 03/19/2025 03/20/2025 03/21/2025 calcium gluconate 3,000 mg in sodium chloride 0.9 % 100 mL IVPB(Linked Group 2) 3,000 mg, intravenous, at 130 mL/hr, Administer over 60 Minutes, As needed, for ionized calcium level less than 3 mg/dL, Starting on 03/08/25 at 0027, CALL PHYSICIAN if this dose is administered. Recheck ionized calcium 6 hours after infusion. Hold calcium replacement for phosphorus greater than 5.5 mg/dL. VESICANT (RED) calcium gluconate IVPB 1000 mg/50 mL (20 mg/mL premix)(Linked Group 2) 1,000 mg, intravenous, at 50 mL/hr, Administer over 60 Minutes, As needed, for ionized calcium level 3.5 to 4.4 mg/dL, Starting on 03/08/25 at 0027, Recheck ionized calcium 6 hours after infusion. Hold calcium replacement for phosphorus greater than 5.5 mg/dL. VESICANT (RED) calcium gluconate IVPB 2000 mg/100 mL (20 mg/mL premix)(Linked Group 2) 2,000 mg, intravenous, at 100 mL/hr, Administer over 60 Minutes, As needed, for ionized calcium level 3 to 3.4 mg/dL, Starting on 03/08/25 at 0027, Recheck ionized calcium 6 hours after infusion. Hold calcium replacement for phosphorus greater than 5.5 mg/dL. VESICANT (RED) dextrose (GLUTOSE) 40 % gel 15 g 15 g, oral, As needed, low blood sugar, blood glucose less than 70 mg/dL, Starting on 03/08/25 at 0932, If patient conscious and taking PO. If blood glucose is not greater than 70 mg/dL after initial treatment, repeat treatment. dextrose 5 % (D5W) infusion 100 mL/hr, intravenous, Continuous PRN, blood glucose less than 70 mg/dL, Starting on 03/08/25 at 0932, For 365 days, Use immediately following dextrose 50% or glucagon treatment for patients who are unconscious or NPO. Contact prescriber for additional orders. If blood glucose is not greater than 70 mg/dL after initial treatment, repeat treatment. dextrose 50 % in water (D50W) 50% solution 25 mL 25 mL, intravenous, As needed, low blood sugar, blood glucose less than 70 mg/dL and unconscious or NPO with IV access, Starting on 03/08/25 at 0932, Push over 1-3 minutes STAT. If conscious and not NPO, immediately follow with meal tray or high protein (7 grams) snack if tray not available. If NPO, initiate 5% dextrose in water at 100 mL/hr and contact prescriber for additional orders. If blood glucose is not greater than 70 mg/dL after initial treatment, repeat treatment. VESICANT (RED) Warning: HYPERTONIC solution. glucagon HCL injection 1 mg 1 mg, intramuscular, As needed, low blood sugar, blood glucose less than 70 mg/dL and unconscious or NPO without IV access., Starting on 03/08/25 at 0932, If conscious and not NPO, immediately follow with meal tray or high protein (7Grams) snack if tray not available. If NPO, initiate IV 5% Dextrose/Water at 100 mL/hr and contact prescriber for additional orders. If blood glucose is not greater than 70 mg/dL after initial treatment, repeat treatment. hydrALAZINE (APRESOLINE) injection 10 mg 10 mg, intravenous, Every 6 hours PRN, high blood pressure, Starting on Mon03/04/25 at 1132, For systolic blood pressure greater than 160 mmHg Look-alike/sound-alike medication - verify indication for use. Administer IV doses as a slow IV push; maximum rate: 5 mg/minute. magnesium sulfate IVPB 2000 mg/50 mL in iso-osmotic water (40 mg/mL premix)(Linked Group 3) 2,000 mg, intravenous, at 25 mL/hr, Administer over 120 Minutes, As needed, for magnesium level 1.7 to 1.9 mg/dL or ionized magnesium level 0.45 to 0.5 mmol/L, Starting on 03/08/25 at 0027, Use premix solution. Default to ionized magnesium level in cases where patient has both magnesium and ionized magnesium results. If administered, check ionized magnesium (or total magnesium if ionized magnesium unavailable) level 4 hours after infusion. magnesium sulfate IVPB 4000 mg/100 mL in iso-osmotic water (40 mg/mL premix)(Linked Group 3) 4,000 mg, intravenous, at 25 mL/hr, Administer over 240 Minutes, As needed, for magnesium level 1.6 mg/mL or less, or ionized magnesium level 0.44 mmol/L or less, Starting on 03/08/25 at 0027, Use premix solution. Default to ionized magnesium level in cases where patient has both magnesium and ionized magnesium results. If administered, check ionized magnesium (or total magnesium if ionized magnesium unavailable) level 4 hours after infusion. methocarbamoL (ROBAXIN) tablet 500 mg 500 mg, oral, Every 6 hours PRN, muscle spasms, Starting on Shani 03/13/25 at 1228 0920 (Canceled Entry - Provider: Justine Sanchez RN) ondansetron (PF) (ZOFRAN) injection 4 mg(Linked Group 4) 4 mg, intravenous, As needed, nausea, vomiting, Starting on 03/15/25 at 0803, Intravenous administration preferred to be given over 2-5 minutes. ondansetron ODT (ZOFRAN ODT) disintegrating tablet 8 mg(Linked Group 4) 8 mg, oral, As needed, nausea, vomiting, Starting on 03/15/25 at 0803 oxyCODONE (ROXICODONE) immediate release tablet 2.5 mg(Linked Group 5) 2.5 mg, oral, Every 4 hours PRN, moderate pain - pain scale 4-6, Starting on Shani 03/13/25 at 1225, Look-alike/sound-alike medication - verify indication for use. Immediate release. 0920 (See Alternative - Provider: Justine Sanchez RN) oxyCODONE (ROXICODONE) immediate release tablet 5 mg(Linked Group 5) 5 mg, oral, Every 4 hours PRN, severe pain - pain scale 7-10, Starting on Shani 03/13/25 at 1225, Look-alike/sound-alike medication - verify indication for use. Immediate release. 0920 (Canceled Entry - Provider: Justine Sanchez RN) potassium chloride (K-TAB,KLOR-CON) CR tablet 20-50 mEq(Linked Group 6) 20-50 mEq, oral, As needed, for potassium replacement, Starting on 03/08/25 at 0027, Progress to oral potassium replacement when patient tolerating oral intake. If dose administered, recheck potassium level 4 hours after last dose. For potassium level 3.4 to 3.8 mmol/L and Serum Creatinine 1.2 or less=30 mEq. For potassium level 3.1 to 3.3 mmol/L and Serum Creatinine 1.2 or less=40 mEq. For potassium level 3 mmol/L or less and Serum Creatinine 1.2 or less=50 mEq. Forpotassium level 3.4 to 3.8 mmol/L and Serum Creatinine greater than 1.2=20 mEq. For potassium level 3.1 to 3.3 mmol/L and Serum Creatinine greater than 1.2=30 mEq. For potassium level 3 mmol/L or less and Serum Creatinine greater than 1.2=40 mEq. Do not crush or chew. potassium chloride (KAYCIEL) 20 mEq/15 mL solution 20-50 mEq(Linked Group 6) 20-50 mEq, oral, As needed, potassium replacement, Starting on 03/08/25 at 0027, Progress to oral potassium replacement when patient tolerating oral intake. If dose administered, recheck potassium level 4 hours after last dose. For potassium level 3.4 to 3.8 mmol/L and Serum Creatinine 1.2 or less=30 mEq (22.5mL). For potassium level 3.1 to 3.3 mmol/L and Serum Creatinine 1.2 or less=40 mEq (30mL). For potassium level 3 mmol/L or less and Serum Creatinine 1.2 or less=50 mEq (37.5mL). For potassium level 3.4 to 3.8 mmol/L and Serum Creatinine greater than 1.2=20 mEq (15mL). For potassium level 3.1 to 3.3 mmol/L and Serum Creatinine greater than 1.2=30 mEq (22.5mL). For potassium level 3 mmol/L or less and Serum Creatinine greater than 1.2=40 mEq (30mL). Must dilute before use - Mix in 3-8 ounces of water or juice before administration When administering in feeding tube, flush before and after per policy and monitor potassium levels potassium chloride IVPB 10 mEq/100 mL in water (0.1 mEq/mL premix)(Linked Group 7) 10 mEq, intravenous, at 100 mL/hr, Administer over 60 Minutes, As needed, for potassium replacement, Starting on 03/08/25 at 0027, Administer Potassium Chloride IVPB in 10 mEq increments. Maximum infusion rates: Central Line = 20 mEq/hour; Peripheral Line = 10 mEq/hour (10 mEq/100 mL). If dose administered, recheck potassium level 1 hour after infusion complete. For potassium level 3.4 to 3.8 mmol/L and Serum Creatinine 1.2 or less = 30 mEq For potassium level 3.1 to 3.3 mmol/L and Serum Creatinine 1.2 or less = 40 mEq For potassium level 3 mmol/L or less and Serum Creatinine 1.2 or less = 50 mEq For potassium level 3.4 to 3.8 mmol/L and Serum Creatinine greater than 1.2 = 20 mEq For potassium level 3.1 to 3.3 mmol/L and Serum Creatinine greater than 1.2 = 30 mEq For potassium level 3 mmol/L or less and Serum Creatinine greater than 1.2 = 40 mEq VESICANT (YELLOW) Infuse each 10 mEq over a minimum of 1 hour. potassium chloride IVPB 10 mEq/50 mL in water (0.2 mEq/mL premix)(Linked Group 7) 10 mEq, intravenous, at 50 mL/hr, Administer over 1 Hours, As needed, for potassium replacement, Starting on 03/08/25 at 0027, Administer Potassium Chloride IVPB in 10 mEq increments. Maximum infusion rates: Central Line = 20 mEq/hour. Administer via Central Line Only. If dose administered, recheck potassium level 1 hour after infusion complete. For potassium level 3.4 to 3.8 mmol/L and Serum Creatinine 1.2 or less = 30 mEq For potassium level 3.1 to 3.3 mmol/L and Serum Creatinine 1.2 or less = 40 mEq For potassium level 3 mmol/L or less and Serum Creatinine 1.2 or less = 50 mEq For potassium level 3.4 to 3.8 mmol/L and Serum Creatinine greater than 1.2 = 20 mEq For potassium level 3.1 to 3.3 mmol/L and Serum Creatinine greater than 1.2 = 30 mEq For potassium level 3 mmol/L or less and Serum Creatinine greater than 1.2 = 40 mEq VESICANT (YELLOW) sod phos di, mono-K phos mono (K-PHOS NEUTRAL) 250 mg tablet 2 tablet(Linked Group 8) 2 tablet, oral, As needed, for phosphorous level 2.3 mg/dL or less, Starting on Mon03/08/25 at 0027, If dose administered, recheck phosphorus level 4 hours after last dose. Look-alike/sound-alike medication - verify indication for use. Give with a full glass of water. sodium chloride 0.9 % flush 10 mL 10 mL, intravenous, As needed, line care, Starting on Mon02/25/25 at 1856 sodium chloride 0.9 % flush 10 mL 10 mL, intravenous, As needed, line care, Starting on 03/08/25 at 0802 sodium chloride 0.9 % infusion 20 mL/hr, intravenous, Continuous PRN, to maintain patency of lines, Starting on Mon02/25/25 at 1739 1823 (Due: Order End ing - Provider: Automatic Discharge Provider - Comment: [Order ends at this time. Document the following action when infusion is complete: Stop Bag]) sodium phosphate 20 mmol in sodium chloride 0.9 % 100 mL IVPB(Linked Group 8) 20 mmol, intravenous, at 26.7 mL/hr, Administer over 4 Hours, As needed, for phosphorous level 2.3 mg/dL or less, Starting on 03/08/25 at 0027, Administer over 4 hours via dedicated line(central line). If administered, recheck phosphorus level 4 hours after infusion complete. Infuse using central line access. sodium phosphate 20 mmol in sodium chloride 0.9 % 250 mL IVPB(Linked Group 8) 20 mmol, intravenous, at 42.8 mL/hr, Administer over 6 Hours, As needed, for phosphorous level 2.3 mg/dL or less, Starting on 03/08/25 at 0027, Administer over 6 hours via dedicated line (peripheral line). If administered, recheck phosphorus level 4 hours after infusion complete. Linked Groups Order Group 1: pantoprazole (PROTONIX) EC tablet 40 mgJump to med 40 mg, oral, Every morning before breakfast, First dose on 03/15/25 at 0815, Look-alike/sound-alike medication - verify indication for use. If patient is receiving enteral feeding, consider alternative PPI or continue IV pantoprazole until the delayed-release tablet can be taken orally, Indication: GERD Or pantoprazole (PROTONIX) injection 40 mgJump to med 40 mg, intravenous, Every morning before breakfast, First dose on 03/15/25 at 0815, Look-alike/sound-alike medication - verify indication for use., Indication: Other (ROEL) Group 2: calcium gluconate IVPB 1000 mg/50 mL (20 mg/mL premix)Jump to med 1,000 mg, intravenous, at 50 mL/hr, Administer over 60 Minutes, As needed, for ionized calcium level 3.5 to 4.4 mg/dL, Starting on 03/08/25 at 0027, Recheck ionized calcium 6 hours after infusion. Hold calcium replacement for phosphorus greater than 5.5 mg/dL. VESICANT (RED) Or calcium gluconate IVPB 2000 mg/100 mL (20 mg/mL premix)Jump to med 2,000 mg, intravenous, at 100 mL/hr, Administer over 60 Minutes, As needed, for ionized calcium level 3 to 3.4 mg/dL, Starting on 03/08/25 at 0027, Recheck ionized calcium 6 hours after infusion. Hold calcium replacement for phosphorus greater than 5.5 mg/dL. VESICANT (RED) Or calcium gluconate 3,000 mg in sodium chloride 0.9 % 100 mL IVPBJump to med 3,000 mg, intravenous, at 130 mL/hr, Administer over 60 Minutes, As needed, for ionized calcium level less than 3 mg/dL, Starting on 03/08/25 at 0027, CALL PHYSICIAN if this dose is administered. Recheck ionized calcium 6 hours after infusion. Hold calcium replacement for phosphorus greater than 5.5 mg/dL. VESICANT (RED) Group 3: magnesium sulfate IVPB 2000 mg/50 mL in iso-osmotic water (40 mg/mL premix)Jump to med 2,000 mg, intravenous, at 25 mL/hr, Administer over 120 Minutes, As needed, for magnesium level 1.7 to 1.9 mg/dL or ionized magnesium level 0.45 to 0.5 mmol/L, Starting on 03/08/25 at 0027, Use premix solution. Default to ionized magnesium level in cases where patient has both magnesium and ionized magnesium results. If administered, check ionized magnesium (or total magnesium if ionized magnesium unavailable) level 4 hours after infusion. Or magnesium sulfate IVPB 4000 mg/100 mL in iso-osmotic water (40 mg/mL premix)Jump to med 4,000 mg, intravenous, at 25 mL/hr, Administer over 240 Minutes, As needed, for magnesium level 1.6 mg/mL or less, or ionized magnesium level 0.44 mmol/L or less, Starting on 03/08/25 at 0027, Use premix solution. Default to ionized magnesium level in cases where patient has both magnesium and ionized magnesium results. If administered, check ionized magnesium (or total magnesium if ionized magnesium unavailable) level 4 hours after infusion. Group 4: ondansetron (PF) (ZOFRAN) injection 4 mgJump to med 4 mg, intravenous, As needed, nausea, vomiting, Starting on 03/15/25 at 0803, Intravenous administration preferred to be given over 2-5 minutes. Or ondansetron ODT (ZOFRAN ODT) disintegrating tablet 8 mgJump to med 8 mg, oral, As needed, nausea, vomiting, Starting on 03/15/25 at 0803 Group 5: oxyCODONE (ROXICODONE) immediate release tablet 2.5 mgJump to med 2.5 mg, oral, Every 4 hours PRN, moderate pain - pain scale 4-6, Starting on Shani 03/13/25 at 1225, Look-alike/sound-alike medication - verify indication for use. Immediate release. Or oxyCODONE (ROXICODONE) immediate release tablet 5 mgJump to med 5 mg, oral, Every 4 hours PRN, severe pain - pain scale 7-10, Starting on Shani 03/13/25 at 1225, Look-alike/sound-alike medication - verify indication for use. Immediate release. Group 6: potassium chloride (K-TAB,KLOR-CON) CR tablet 20-50 mEqJump to med 20-50 mEq, oral, As needed, for potassium replacement, Starting on 03/08/25 at 0027, Progress to oral potassium replacement when patient tolerating oral intake. If dose administered, recheck potassium level 4 hours after last dose. For potassium level 3.4 to 3.8 mmol/L and Serum Creatinine 1.2 or less=30 mEq. For potassium level 3.1 to 3.3 mmol/L and Serum Creatinine 1.2 or less=40 mEq. For potassium level 3 mmol/L or less and Serum Creatinine 1.2 or less=50 mEq. Forpotassium level 3.4 to 3.8 mmol/L and Serum Creatinine greater than 1.2=20 mEq. For potassium level 3.1 to 3.3 mmol/L and Serum Creatinine greater than 1.2=30 mEq. For potassium level 3 mmol/L or less and Serum Creatinine greater than 1.2=40 mEq. Do not crush or chew. Or potassium chloride (KAYCIEL) 20 mEq/15 mL solution 20-50 mEqJump to med 20-50 mEq, oral, As needed, potassium replacement, Starting on 03/08/25 at 0027, Progress to oral potassium replacement when patient tolerating oral intake. If dose administered, recheck potassium level 4 hours after last dose. For potassium level 3.4 to 3.8 mmol/L and Serum Creatinine 1.2 or less=30 mEq (22.5mL). For potassium level 3.1 to 3.3 mmol/L and Serum Creatinine 1.2 or less=40 mEq (30mL). For potassium level 3 mmol/L or less and Serum Creatinine 1.2 or less=50 mEq (37.5mL). For potassium level 3.4 to 3.8 mmol/L and Serum Creatinine greater than 1.2=20 mEq (15mL). For potassium level 3.1 to 3.3 mmol/L and Serum Creatinine greater than 1.2=30 mEq (22.5mL). For potassium level 3 mmol/L or less and Serum Creatinine greater than 1.2=40 mEq (30mL). Must dilute before use - Mix in 3-8 ounces of water or juice before administration When administering in feeding tube, flush before and after per policy and monitor potassium levels Group 7: potassium chloride IVPB 10 mEq/50 mL in water (0.2 mEq/mL premix)Jump to med 10 mEq, intravenous, at 50 mL/hr, Administer over 1 Hours, As needed, for potassium replacement, Starting on 03/08/25 at 0027, Administer Potassium Chloride IVPB in 10 mEq increments. Maximum infusion rates: Central Line = 20 mEq/hour. Administer via Central Line Only. If dose administered, recheck potassium level 1 hour after infusion complete. For potassium level 3.4 to 3.8 mmol/L and Serum Creatinine 1.2 or less = 30 mEq For potassium level 3.1 to 3.3 mmol/L and Serum Creatinine 1.2 or less = 40 mEq For potassium level 3 mmol/L or less and Serum Creatinine 1.2 or less = 50 mEq For potassium level 3.4 to 3.8 mmol/L and Serum Creatinine greater than 1.2 = 20 mEq For potassium level 3.1 to 3.3 mmol/L and Serum Creatinine greater than 1.2 = 30 mEq For potassium level 3 mmol/L or less and Serum Creatinine greater than 1.2 = 40 mEq VESICANT (YELLOW) Or potassium chloride IVPB 10 mEq/100 mL in water (0.1 mEq/mL premix)Jump to med 10 mEq, intravenous, at 100 mL/hr, Administer over 60 Minutes, As needed, for potassium replacement, Starting on 03/08/25 at 0027, Administer Potassium Chloride IVPB in 10 mEq increments. Maximum infusion rates: Central Line = 20 mEq/hour; Peripheral Line = 10 mEq/hour (10 mEq/100 mL). If dose administered, recheck potassium level 1 hour after infusion complete. For potassium level 3.4 to 3.8 mmol/L and Serum Creatinine 1.2 or less = 30 mEq For potassium level 3.1 to 3.3 mmol/L and Serum Creatinine 1.2 or less = 40 mEq For potassium level 3 mmol/L or less and Serum Creatinine 1.2 or less = 50 mEq For potassium level 3.4 to 3.8 mmol/L and Serum Creatinine greater than 1.2 = 20 mEq For potassium level 3.1 to 3.3 mmol/L and Serum Creatinine greater than 1.2 = 30 mEq For potassium level 3 mmol/L or less and Serum Creatinine greater than 1.2 = 40 mEq VESICANT (YELLOW) Infuse each 10 mEq over a minimum of 1 hour. Group 8: sodium phosphate 20 mmol in sodium chloride 0.9 % 250 mL IVPBJump to med 20 mmol, intravenous, at 42.8 mL/hr, Administer over 6 Hours, As needed, for phosphorous level 2.3 mg/dL or less, Starting on 03/08/25 at 0027, Administer over 6 hours via dedicated line (peripheral line). If administered, recheck phosphorus level 4 hours after infusion complete. Or sodium phosphate 20 mmol in sodium chloride 0.9 % 100 mL IVPBJump to med 20 mmol, intravenous, at 26.7 mL/hr, Administer over 4 Hours, As needed, for phosphorous level 2.3 mg/dL or less, Starting on 03/08/25 at 0027, Administer over 4 hours via dedicated line(central line). If administered, recheck phosphorus level 4 hours after infusion complete. Infuse using central line access. Or sod phos di, mono-K phos mono (K-PHOS NEUTRAL) 250 mg tablet 2 tabletJump to med 2 tablet, oral, As needed, for phosphorous level 2.3 mg/dL or less, Starting on 03/08/25 at 0027, If dose administered, recheck phosphorus level 4 hours after last dose. Look-alike/sound-alike medication - verify indication for use. Give with a full glass of water. documented in this encounter Additional Health Concerns Assessment Noted Time PHQ-9 Depression Total Score: 0 02/26/20 25 6:22 PM EDT documented as of this encounter Care Teams Financial Aid Officer Relationship Specialty Start Date End Date Riya Diego MD [address] [place] [phone] PCP - General Family Medicine 03/31/17 documented as of this encounter
--- OUTSIDE RECORDS SUMMARY | 2025-03-17 06:00 | XMS_ITS ---
Author Organization [facility] in [place] Address [address] [place] [address] Care Team Providers Care School Bus Operator Name Role Phone Riya Diego Primary Care Provider REASON FOR VISIT yearly wellness exam Encounters Encounter Location Date Provider Diagnosis [facility] [address] [place] [address] 03/17/2025 Riya Diego Plan Of Treatment No Information Progress Notes * Caren PRADO JDOB: [birth year] (70 yo F)Acc No.[id number]:03/17/2025 UNLOCKED PROGRESS NOTE Progress Note Patient: Caren JACKSON Provider: Antonio Diego MD :1955 A ge:70 Y S ex:Female Date:03/17/2025 Address:[address] [place], [place] [id number] Subjective: * Chief Complaints: * 1 . Yearly wellness exam. * Medical History: Objective: * Vitals: Assessment: Plan: * Treatment: * * Electronic signature of Jessica Diego MD, [id number] on 03/30/2025 at 05:52 PM EDT Sign off status: Pending Visit Status: C ANC (Cancelled) * Provider: Antonio Diego MD Date: 0 03/17/2025 Generated for Printi ng/Faxing/eTransmitting on: 0 03/30/2025 05:52 PM EDT
--- OUTSIDE RECORDS SUMMARY | 2025-03-30 17:51 | XMS_ITS | Encounter Summary ---
Author Organization [facility] tem Address [id number] [address] [place] [address] Care Team Providers Care Nurse Substance Abuse Name Role Phone Riya Diego MD Primary Care Provider + [phone] Encounter Details Date Type Department Care Team (Late st Contact Info) Description 03/04/2025 Results Follow-Up [facility] Acute [address] [place] [phone] Mariaelena Berumen MD [address] [facility], [facility] [place] [address] Thin Prep Pap Test Social History Tobacco Use Types Packs/Day Years Used Date Smoking Tobacco: Former Cigarettes Smokeless Tobacco: Never Alcohol Use Standard Drinks/Week Comments Never 0 (1 standard drink = 0.6 oz pur e alcohol) [facility] Utilities Answer Date Recorded In the past 12 months has [employer], gas, oil, or water company threatened to [...] on file documented as of this encounter Plan of Treatment Upcoming Encounters Date Type Department Care Team (Late st Contact Info) Description 04/03/2025 9:00 AM EDT Office Visit [facility] [place] [address] Riya Howard, REPORTS ANALYST-CIRCUS TRAINER [address] [address] documented as of this encounter Goals Goal Patient Goal Type Associated Problems Recent Progress Patient-Stated? Author Home General Yes Eden Mccray, RN Note: Evaluation of progress towards goal: Return home self care. documented as of this encounter Visit Diagnoses Not on filedocumented in this encounter Additional Health Concerns Assessment Noted Time PHQ-9 Depression Total Score: 0 02/26/20 25 6:22 PM EDT documented as of this encounter Care Teams Nurse Substance Abuse Relationship Specialty Start Date End Date Riya Diego MD [address] [place] [phone] PCP - General Family Medicine 03/31/17 documented as of this encounter
--- OUTSIDE RECORDS SUMMARY | 2025-03-30 17:51 | XMS_ITS | Encounter Summary ---
Author Organization [employer] [facility] Address [id number] [address] [place] [address] Care Team Providers Care Bull Bucker Name Role Phone Riya Diego MD Primary Care Provider + [phone] Encounter Details Date Type Department Care Team (Late st Contact Info) Description 03/17/2025 Telephone [facility] [address] [place] [address] Lorie Jones CMA Social History Tobacco Use Types Packs/Day Years Used Date Smoking Tobacco: Former Cigarettes Smokeless Tobacco: Never Alcohol Use Standard Drinks/Week Comments Never 0 (1 standard drink = 0.6 oz pur e alcohol) [facility] Utilities Answer Date Recorded In the past 12 months has [employer], gas, oil, or water [employer] threatened to shut off services in your [...] on file documented as of this encounter Mental Status * Question Answer Entry Date Author Overall Cognitive Status WFL 03/20/2025 3:03 PM EDT Nava Barrera COTA/Joie documented in this encounter Miscellaneous Notes * Telephone Encounter - Lorie Jones CMA - 03/17/2025 1:27 PM EDT Called patient [facility] to call and schedule New Patient appointment with Dr Noble. Letter sent. documented in this encounter Plan of Treatment Upcoming Encounters Date Type Department Care Team (Late st Contact Info) Description 04/03/2025 9:00 AM EDT [facility] Visit [facility] [place] [address] Riya Howard, GUITAR PLAYER-FINANCE ADMINISTRATOR [address] [place] [address] documented as of this encounter Goals Goal [...] documented as of this encounter Care Teams Bull Bucker Relationship Specialty Start Date End Date Riya Diego MD [address] [place] [phone] PCP - General Family Medicine 03/31/17 documented as of this encounter
--- OUTSIDE RECORDS SUMMARY | 2025-03-30 17:51 | XMS_ITS | Clinical Summary ---
Author Organization [facility] Healthcare Address [address] [place] [address] Care Team Providers Care Grated Cheese Maker Name Role Phone Riya Diego MD Unavailable [phone] Social History Tobacco Use Types Packs/Day Years Used Date Smoking Tobacco: Never Assessed Comments Unknown Sex and Gender Information Value Date Recorded Sex Assigned at Not on file Legal Sex Female 8:00 PM EDT Gender Identity Not on file Sexual Orientation Not on file Last Filed Vital Signs Vital Sign Reading Time Taken Comments Blood Pressure 110/72 08/31/2018 12:00 PM EST Pulse - - Temperature - - Respiratory Rate - - Oxygen Saturation - - Inhaled Oxygen Concentration - - Weight 81.6 kg (179 lb 12.8 oz) 019 12:00 PM EST Height 160.7 cm (5' 3.25 ) 08/31/2018 1 2:00 PM EST Body Mass Index 31.6 08/31/2018 12:00 PM EST Plan of Treatment Not on file Care Teams Grated Cheese Maker Relationship Specialty Start Date End Date Riya Diego MD [address] [place] [address] PCP - External PCP Family Medicine 12/10/22
--- OUTSIDE RECORDS SUMMARY | 2025-03-30 17:51 | XMS_ITS | Encounter Summary ---
Author Organization [employer] [facility] Address [id number] [address] [place] [address] Care Team Providers Care Room Service Server Name Role Phone Riya Diego MD Primary Care Provider + [phone] Encounter Details Date Type Department Care Team (Late st Contact Info) Description 03/13/2025 Telephone [facility] [address] [place] [address] Lorie Jones CMA Social History Tobacco Use Types Packs/Day Years Used Date Smoking Tobacco: Former Cigarettes Smokeless Tobacco: Never Alcohol Use Standard Drinks/Week Comments Never 0 (1 standard drink = 0.6 oz pur e alcohol) [facility] Utilities Answer Date Recorded In the past 12 months has [employer], oil, or water [employer] threatened to shut off services in your [...] Answer Entry Date Author Overall Cognitive Status X 03/13/2025 11:13 AM EDT Joseph Montenegro PT documented in this encounter Miscellaneous Notes * Telephone Encounter - Lorie Jones CMA - 03/13/2025 3:17 PM EDT Called patient [facility] to call and schedule a 6-/ week fu with Dr Baum. documented in this encounter Plan of Treatment Upcoming Encounters Date Type Department Care Team (Late st Contact Info) Description 04/03/2025 9:00 AM EDT Office Visit [facility] [place] [address] Riya Howard, FREEZER PERSON-ITALIAN TUTOR [address] [place] [address] documented as of this encounter Goals Goal [...] documented as of this encounter Care Teams Room Service Server Relationship Specialty Start Date End Date Riya Diego MD [address] [place] [phone] PCP - General Family Medicine 03/31/17 documented as of this encounter
--- OUTSIDE RECORDS SUMMARY | 2025-03-30 17:55 | XMS_ITS | Patient Health Record ---
Author Organization [facility] [place] Address [address] [place] [address] Care Team Providers Care Car Dumper Name Role Phone Riya Diego Primary Care Provider Wili Barnes Unavailable [phone] Allergies Allergen (clinical drug ingredient) Drug/Non Drug Allergy documented on EMR Reaction Allergy Type Onset Date Status clindamycin Cleocin (uncoded) vomiting Allergy Active Penicillin (uncoded) as a child Allergy Active doxycycline Doxycycline nausea and vomiting Drug Allergy Active Results Component Value Reference Range Notes XR Chest PA and Lateral (Rou christianne CXR) * (Not yet reviewed by provider) Interpretation: Performing Lab: Notes/Report: CBC AND AUTO DIFF * (Not yet reviewed by provider) Interpretation: Performing Lab: Notes/Report: WBC 19.7 4-11 x10E9/L RBC COUNT 4.61 3.8-5.2 X10E12/L HEMOGLOBIN 9.6 11.7-15.5 g/dL HEMATOCRIT 31.9 35-47 % MCV 69 80-100 fL MCH 20.9 27-34 pg MCHC 30.3 32-36 g/dL RDW 18.5 11.5-15 % PLATELET COUNT 263 150-450 X10E9/L MPV 7.4 7-12 fL NEUTROPHILS RELATIVE PERCENT BY AUTOMATED COUNT 94.0 This is an appended report. These results have been appended to a previously preliminary verified report. LYMPHOCYTES RELATIVE PERCENT BY AUTOMATED COUNT 2.2 This is an appended report. These results have been appended to a previously preliminary verified report. MONOCYTES RELATIVE PERCENT BY AUTOMATED COUNT 3.5 This is an appended report. These results have been appended to a previously preliminary verified report. EOSINOPHILS RELATIVE PERCENT BY AUTOMATED COUNT 0.0 This is an appended report. These results have been appended to a previously preliminary verified report. BASOPHILS RELATIVE PERCENT BY AUTOMATED COUNT 0.3 This is an appended report. These results have been appended to a previously preliminary verified report. NEUTROPHILS ABSOLUTE COUNT BY AUTOMATED COUNT 18.5 1.5-6.6 10*3/uL This is an appended report. These results have been appended to a previously preliminary verified report. LYMPHOCYTES ABSOLUTE COUNT (10*3/UL) BY AUTOMATED COUNT 0.4 1.0-3.5 10*3/uL This is an appended report. These results have been appended to a previously preliminary verified report. MONOCYTES ABSOLUTE COUNT (10*3/UL) BY AUTOMATED COUNT 0.7 0.0-0.9 10*3/uL This is an appended report. These results have been appended to a previously preliminary verified report. EOSINOPHILS ABSOLUTE COUNT (10*3/UL) BY AUTOMATED COUNT 0.0 0.0-0.4 10*3/uL This is an appended report. These results have been appended to a previously preliminary verified report. BASOPHILS ABSOLUTE COUNT (10*3/UL) BY AUTOMATED COUNT 0.1 0.0-0.2 10*3/uL This is an appended report. These results have been appended to a previously preliminary verified report. CELLAVISION HYPOCHROMIA IN BLOOD BY LIGHT MICROSCOPY 2+ This is an appended report. These results have been appended to a previously preliminary verified report. CELLAVISION DIFFERENTIAL TYPE AUTOMATED DIFFERENTIAL This is an appended report. These results have been appended to a previously preliminary verified report. PERFORMED AT [address] [place] [address] COMPREHENSIVE METABOLIC PANE L (Not yet reviewed by provider) Interpretation: Performing Lab: Notes/Report: SODIUM 133 134-146 mmol/L POTASSIUM 4.1 3.5-5.0 mmol/L CHLORIDE 101 98-109 mmol/L CARBON DIOXIDE 20 22-32 mmol/L ANION GAP 12 5-15 mmol/L BLOOD UREA NITROGEN 20 5-27 mg/dL CREATININE 0.99 0.40-1.00 mg/dL METHOD TRACE ABLE TO IDMS STANDARD GLUCOSE 132 65-99 mg/dL CALCIUM 8.3 8.5-10.5 mg/dL TOTAL PROTEIN 6.8 6.0-8.0 g/dL ALBUMIN 2.8 3.2-5.3 g/dL ALKALINE PHOSPHATASE 100 39-130 U/L AST 24 <=41 U/L ALT 15 <=31 U/L BILIRUBIN,TOTAL 1.2 0.3-1.2 mg/dL EGFR (CKD-EPI) NON-RACE DEPENDENT 62 >=60 ml/min/1.73sq.m not use a race coefficient. PERFORMED AT [address] [place] [address] Reported eGFR is based on the CKD-EPI 2020 equation that does eGFR not reported due to non-numeric value for Creatinine. EGFR not calculated due to patient's gender not being defined. CBC WITH DIFF Reviewed date:07/01/2024 09:33:08 AM Interpretation: Performing Lab:[facility], [address], [place], [place], [id number] Notes/Report: FACILITY: [facility] - OFFICE [id number] WBC 5.26 (3.80 - 10.60) x10^3ul RBC 4.64 (4.20 - 5.40) x10^6ul HEMOGLOBIN 12.2 (12.0 - 16.0) G/DL HGB & HCT CHECKED BY REPEAT HEMATOCRIT 40.3 (37.0 - 47.0) % MCV 86.9 (81.0 - 99.0) fl MCH 26.3 (27.0 - 33.0) PG MCHC 30.3 (30.0 - 37.0) G/DL RDW-SD 44.8 (37.0 - 49.0) fl PLT 248 (130 - 400) x10^3ul SEGS 65.9 () % LYMPS 21.3 () % MONOS 9.5 () % EOSINOPHIL 1.9 () % BASOS 1.0 () % IMMATURE GRANS (IG) 0.4 () % ABS NEUTROPHIL 3.47 (1.50 - 7.00) x10^3ul ABS LYMPHOCYTE 1.12 (0.96 - 5.40) x10^3ul ABS MONOCYTE 0.50 (0.10 - 1.00) x10^3ul ABS EOSINOPHIL 0.10 (0.00 - 0.40) x10^3ul ABS BASOPHIL 0.05 (0.00 - 0.16) x10^3ul ABS IMMATURE GRANS 0.02 (0.00 - 0.11) x10^3ul LIPID PANEL (CHOL/TRIG/HDL/L DL) Reviewed date:07/01/2024 09:33:08 AM Interpretation: Performing Lab:[facility], [address] [place], [address] [phone] Notes/Report: CHOL REFERENCE RANGE: DESIRABLE: < 200 MG/DL BORDERLINE: 200 - 239 MG/DL HIGH RISK: > 240 MG/DL HDL REFERENCE RANGE: DESIRABLE: >45 MG/DL BORDERLINE: 32 - 45 MG/DL HIGH RISK: < 32 MG/DL LDL REFERENCE RANGE: DESIRABLE: < 130 MG/DL BORDERLINE: 130 - 159 MG/DL HIGH RISK: > 160 MG/DL CHOL-HDL RATIO: MALE: LOW RISK : 0 - 5.0, MOD RISK: 5.1 - 9.6, HIGH RISK: > 9.6 FEMALE: LOW RISK : 0 - 4.4, MOD RISK: 4.5 - 7.1, HIGH RISK: > 7.1 FACILITY: [facility] - OFFICE [id number] CHOLESTEROL 199 (120 - 200) MG/DL TRIGLYCERIDES 136 (30 - 150) MG/DL HDL 53 (40.0 - 60.0) MG/DL LDL (CALC) 119 (0 - 130) MG/DL VLDL 27 (7 - 46) MG/DL CHOL-HDL RATIO 3.8 (0.0 - 4.4) CMP (COMPLETE METABOLIC PANE L) Reviewed date:07/01/2024 09:33:08 AM Interpretation: Performing Lab:[facility], [address] [place], [place], [id number] [phone] Notes/Report: FACILITY: [facility] - OFFICE [id number] GLUCOSE 93 (74 - 106) MG/DL BUN 9 (4 - 25) MG/DL CREATININE, BLOOD 0.68 (0.52 - 1.04) MG/DL SODIUM 137 (137 - 145) MMOL/L POTASSIUM 4.5 (3.5 - 5.1) MMOL/L CLINICAL JUDGEMENT. RESULTS SHOULD BE DETERMINED BY HEMOLYSIS PRESENT; VALIDITY OF CHLORIDE 108 (98 - 107) MMOL/L CARBON DIOXIDE 22 (22 - 30) MMOL/L CALCIUM 9.3 (8.6 - 10.6) MG/DL ALBUMIN 4.0 (3.5 - 5.0) G/DL TOTAL PROTEIN 7.4 (6.3 - 8.2) G/DL ALK PHOS 155 (38 - 126) U/L ALT (SGPT) 11 (1 - 35) U/L AST (SGOT) 26 (15 - 46) U/L BILIRUBIN, TOT 1.0 (0.2 - 1.3) MG/DL GFR-NON AFRIC-AMER 86.0 (60.0 - 115.8 ) ML/M1.7 GFR- AMER 104.1 (60.0 - 140.1) ML/M1.7 Reason For Referral No Information Medications Medication SIG (Take, Route, Frequency, Duration) Notes Start Date End Date Status Airsupra 90-80 MCG/ACT INHALE 1 TO 2 PUF FS EVERY 4 TO 6 HOURS NEEDED FOR COUGH AND FOR WHEEZING AND FOR SHORTNESS OF BREATH RINSE MOUTH OUT AFTER USE Inhalation; Duration: 10 Days Active Meclizine HCl 12.5 MG 1 tablet as needed Orally every 12 hrs; Duration: 30 days 05/02/2022 Unknown Benzonatate 200 MG 1 capsule Orally Thr ee times a day prn cough; Duration: 10 days 01/06/2025 Unknown Doxycycline Hyclate 100 MG Oral; Duration: 10 Days Unknown Immunizations Vaccine Route Administration Date [facility] [employer] Syringe Pre-Filled 30 mcg/0.3 mL Unknown 04/01/2024 Administered Flu, Fluad (68625) 65 yrs and older, single-dose syringe () Unknown 04/01/2024 Administered Flu, Fluad (73794) 65 yrs+, single-dose syringe ([id number]) Unknown 04/07/2021 Administered Flu, Fluad (39819) 65 yrs+, single-dose syringe ([id number]) Unknown 04/01/2022 Administered Flu, unspecified Unknown 03/19/2020 Administered Given at [facility] Pneumococcal (Pneumovax 23) Unknown 04/07/2021 Administered Pneumococcal (Prevnar 20) Unknown 04/01/2022 Administered SARS-COV-2 (COVID 19 Pfizer 30mcg/0.3mL) Unknown 09/21/2020 Administered SARS-COV-2 (COVID 19 Pfizer 30mcg/0.3mL) Unknown 10/13/2020 Administered Given at [facility] SARS-COV-2 (COVID 19 Pfizer Booster 0.3mL) Unknown 05/30/2021 Administered SARS-COV-2 (COVID 19) bivalent 30 mcg/0.3 ml dose Unknown 04/01/2022 Administered Shingrix (Zoster) Unknown 05/21/2020 Administered Spikevax Moderna Syringe Pre-Filled 50 mcg/0.5 mL Unknown 04/25/2023 Administered Tdap Unknown 04/03/2019 Administered Social History Tobacco Use: Social History Observation Description Date Details (start date - stop date) Former Smoker NA - NA Alcohol Screen (Audit-C) Question Answer Notes Did you have a drink containing alcohol in the p ast year? No Points 0 Interpretation Negative Tobacco Control (Standard) Question Answer Notes Tobacco use: Former smoker How long has it been since you last smoked? Grea ter than 10 years Section Notes: H/o smoking H/o smoking Quit smoking 05/15 Quit smoking 05/15 Problems Problem Type SNOMED Code ICD Code Onset Dates Problem Status W/U Status Risk Notes Problem Overweight (097252554) Overweight (E66.3) Active confirmed Problem Solitary pulmonary nodule (738879474) Solitary pulmonary nodule (R91.1) Active confirmed Problem Hypertension (46398707) Hypertension (I10) Active confirmed Vital Signs Heart Rate 114 /min 02/24/2025 Respiratory Rate 16 /min 02/24/2025 Blood pressure diastolic 84 mm Hg 02/24/2025 Oximetry 98 % 02/24/2025 Height 61.5 in 02/24/2025 Blood pressure systolic 142 mm Hg 02/24/2025 Weight 164 lbs 02/24/2025 BMI 30.48 kg/m2 02/24/2025 Procedures Procedure Date Ordered Date Performed Result Body Sit e Venous duplex scan of lower extremities - right for DVT 02/24/2025 02/24/2025 N/A Encounters Encounter Location Date Provider Diagnosis [facility] [address] [place] [address] 07/01/2024 Riya Diego Encounter for genera l adult medical examination without abnormal findings Z00.00 ; Encounter for screening mammogram for malignant neoplasm of breast Z12.31 ; Encounter for screening for malignant neoplasm of colon Z12.11 and Vertigo R42 [facility] [address] [place] [address] 06/28/2024 Riya Diego Encounter for laboratory test Z01.89 and Wellness examination Z00.00 [facility] [address] [place] [address] 01/06/2025 Wili Barnes Acute cough R05.1 ; Overweight E66.3 and Body mass index [BMI] 29.0-29.9, adult Z68.29 [facility] [address] [place] [address] 02/18/2025 Riya Diego Bronchitis, not specified as acute or chronic J40 ; Chronic cough R05.3 ; Wheezing R06.2 and Localized swelling, mass and lump, lower limb, bilateral R22.43 [facility] [address] [place] [address] 02/24/2025 Riya Diego Localized swelling, mass and lump, right lower limb R22.41 ; Other specified soft tissue disorders M79.89 ; Bronchitis, not specified as acute or chronic J40 ; Chronic cough R05.3 ; Generalized abdominal pain R10.84 ; Abdominal distension (gaseous) R14.0 ; Shortness of breath R06.02 and Tachycardia, unspecified R00.0 [facility] [address] [place] [address] 02/24/2025 [facility] [address] [place] [address] 01/06/2025 [facility] [address] [place] [address] 02/04/2025 [facility] [address] [place] [address] 02/20/2025 [facility] [address] [place] [address] 02/27/2025 Riya Diego [facility] [address] [place] [address] 03/24/2025 Riya Diego Assessments Encounter Date Diagnosis (ICD Code) Assessment Notes Treatment Notes Treatment Clinical Notes Section Notes 07/01/2024 Encounter for general adult medical examination without abnormal findings (ICD-10 - Z00.00) Labs are stable Needs mamm, and cologuard 07/01/2024 Encounter for screening mammogram for malignant neoplasm of breast (ICD-10 - Z12.31) New order printed and sent to [facility] 06/28/2024 Encounter for laboratory test (ICD-10 - Z01.89) 06/28/2024 Wellness examination (ICD-10 - Z00.00) 01/06/2025 Acute cough (ICD-10 - R05.1) ?RAD cxr if not better rtc prn 01/06/2025 Overweight (ICD-10 - E66.3) diet/exercise 02/24/2025 Localized swelling, mass and lump, right lower limb (ICD-10 - R22.41) Get STAT venous doppler of RLE, due to worsening swelling and pain of RLE since last week, now for 2 weeks total 02/24/2025 Other specified soft tissue disorders (ICD-10 - M79.89) 02/18/2025 Bronchitis, not specified as acute or chronic (ICD-10 - J40) Start breztri 1 puff twice daily - sample given Pred taper Get CXR today if possible 02/18/2025 Chronic cough (ICD-10 - R05.3) Get xray, consider CT. Concerning for COPD, even though she quit smoking almost 12 years ago, but has about 40pack year history 02/18/2025 Wheezing (ICD-10 - R06.2) Use the inahler every 4 hours while awake! 02/24/2025 Bronchitis, not specified as acute or chronic (ICD-10 - J40) Cough improved but still SOB 01/06/2025 Body mass index [BMI] 29.0-29.9, adult (ICD-10 - Z68.29) 07/01/2024 Encounter for screening for malignant neoplasm of colon (ICD-10 - Z12.11) New order for cologuard sent 07/01/2024 Vertigo (ICD-10 - R42) Would like refill of meclizine to have on hand 02/24/2025 Chronic cough (ICD-10 - R05.3) 02/18/2025 Localized swelling, mass and lump, lower limb, bilateral (ICD-10 - R22.43) Uncertain etiology, elevate legs. Call if worsening 02/24/2025 Generalized abdominal pain (ICD-10 - R10.84) Worsening abdominal pain, fullness, distention, with nausea, decreased appetite, SOB and RLE swelling Get STAT abd/pelvis CT - concerning for underlying pathology 02/24/2025 Abdominal distension (gaseous) (ICD-10 - R14.0) 02/24/2025 Shortness of breath (ICD-10 - R06.02) CXR from last week was negative 02/24/2025 Tachycardia, unspecified (ICD-10 - R00.0) More tachycardic today than last week but O2 is still stable at 98% Plan Of Treatment Pending Test Test Name Order Date XR Chest PA and Lateral (Routine CXR) * 02/18/2025 CT Abdomen and Pelvis w/contrast * 02/24 Cologuard 07/01/2024 CBC AND AUTO DIFF * 02/24/2025 COMPREHENSIVE METABOLIC PANEL 02/24/2025 MAMM SCREEN BILAT EDUARDO 3D* 05/02/2022 Venous duplex scan of lower extremities - right for DVT 02/24/2025 MAMM SCREEN BILAT EDUARDO 3D GLOBAL* 2022 MAMM SCREEN BILAT EDUARDO 3D GLOBAL* 2023 CMP (COMP MET [facility]KEON) w/eGFR CKD-EPI 2024 CBC WITH DIFF 02/24/2025 Insurance Providers Payer Name Payer Address Payer Phone Subscriber Number Group Number Insured Name Patient Relationship to Insured Coverage Start Date Coverage End Date [facility] [address] [address] [place] [phone] [id number] Caren Suarez Self - patient is the insured Medical (General) History Medical History History ICD Code H/o vertigo Surgical History Surgery Date(Month/Year)
--- OUTSIDE RECORDS SUMMARY | 2025-03-30 17:55 | XMS_ITS | Encounter Summary ---
Author Organization [facility] Address [address], [address] [place] [address] Care Team Providers Care Risk Engineer Name Role Phone Unavailable Primary Care Provider Unavailabl e Encounter Details Date Type Department Care Team (Late st Contact Info) Description 03/20/2025 Abstract Joshua Jacobo MD [address] [place] [address] Hever Booth, SADIE - INFORMATION OFFICER [address] [facility] [place] [address] Social History Tobacco Use Types Packs/Day Years Used Date Smoking Tobacco: Never Assessed Comments Unknown Sex and Gender Information Value Date Recorded Sex Assigned at Not on file Legal Sex Female 1:16 PM EST Gender Identity Not on file Sexual Orientation Not on file documented as of this encounter Plan of Treatment Not on file documented as of this encounter Visit Diagnoses Not on filedocumented in this encounter
--- OUTSIDE RECORDS SUMMARY | 2025-03-30 17:55 | XMS_ITS | Clinical Summary ---
Author Organization [facility] Address [address] [place] [address], [address] [place] [address] Care Team Providers Care Video Game Script Writer Name Role Phone Unavailable Primary Care Provider Unavailabl e Encounters Date Type Department Care Team Description 03/20/2025 Abstract Joshua Jacobo MD [address] [place] [address] [place] [address] Hever Booth, CORRUGATOR MACHINE OPERATOR - [employer] from Last 3 Months Social History Tobacco Use Types Packs/Day Years Used Date Smoking Tobacco: Never Assessed Comments Unknown Sex and Gender Information Value Date Recorded Sex Assigned at Not on file Legal Sex Female 1:16 PM EST Gender Identity Not on file Sexual Orientation Not on file Plan of Treatment Not on file
--- OUTSIDE RECORDS SUMMARY | 2025-03-30 17:55 | XMS_ITS | Clinical Summary ---
Author Organization [employer] tem Address [id number] [address] [place] [address] Care Team Providers Care Yarn Spooler Name Role Phone Riya Diego MD Primary Care Provider + [phone] Allergies Active Allergy Reactions Criticality Noted Date Comments Penicillin 02/25/2025 Medications apixaban (ELIQUIS) 5 mg tablet Take 1 tablet (5 mg total) by mouth in the morning and 1 tablet (5 mg total) before bedtime. 5 Active droNABinol (MARINOL) 2.5 mg capsuleIndicat ions:Colon cancer screening Take 1 capsule (2.5 mg total) by mouth in the morning and 1 capsule (2.5 mg total) in the evening. Take before meals. Do all this for 30 days. 60 capsule 5 04/20/20 25 Active folic acid (FOLVITE) 1 mg tablet Take 1 tablet (1 mg total) by mouth in the morning. 5 Active oxyCODONE (ROXICODONE) 5 mg immediate release tabletIndicati ons:Colon cancer screening Take 1 tablet (5 mg total) by mouth every 8 (eight) hours as needed for pain for up to 15 doses. Max Daily Amount: 15 mg 15 tablet 5 Active naloxone (NARCAN) 4 mg/actuation spray,non-aero jude nasal spray Administer 1 spray (4 mg total) into alternating nostrils as needed for opioid reversal. 5 Active apixaban (ELIQUIS) 5 mg tablet Take 2 tablets (10 mg total) by mouth 2 (two) times a day for 7 days, THEN 1 tablet (5 mg total) 2 (two) times a day for 30 days. 88 tablet 5 03/21/20 25 Discontin ued(Stop Taking at Discharge ) Active Problems Problem Noted Date Diagnosed Date Pressure ulcer of right buttock, stage 2 025 Pressure injury of deep tissue of left buttock 0 03/20/2025 DVT (deep venous thrombosis) 02/25/2025 Colon cancer screening 02/24/2025 Hematochezia 02/24/2025 Encounters Date Type Department Care Team Description 03/17/2025 Telephone [facility] [address] [place] [address] Lorie Jones [facility] 03/13/2025 Telephone [facility] [address] [place] [address] Lorie Jones [employer] 03/12/2025 Telephone [facility] Department of [facility] [address] [place] [address] Nava Wheeler PA Appointment 03/09/2025 8:44 AM EDT Anesthesia Event [facility] Surgery [address] [place] [phone] Veronique Alcaraz MD 03/09/2025 7:30 AM EDT - 03/09/2025 10:13 AM EDT Surgery [address] [phone] Ghassan Castillo MD [facility] [[id number] (CPT )] 03/07/2025 10:26 PM EDT Anesthesia Event [facility] Surgery [address] [place] [phone] Veronique Alcaraz MD Chia EliclarissasvenKIMBERLY 03/07/2025 10:25 PM EDT - 03/08/2025 1:15 AM EDT Surgery [facility] Surgery [address] [facility] [place] [phone] Ghassan Castillo MD [facility] EXPLORATORY [[id number] (CPT )] 03/04/2025 Results Follow-Up [facility]E Acute [address] [place] [phone] Mariaelena Berumen MD Thin Prep Pap Test 02/27/2025 Telephone [facility] [address] [place] [phone] Cipriano Noble MD 02/25/2025 5:24 PM EDT - 03/21/2025 4:23 PM EDT Hospital Encounter [facility] 7W Acute [address] [place] [phone] Deena Branch MD Hanif, MD Anna Estrada Peter F, MD Colon cancer screening (Primary Dx); Hematochezia; Pressure injury of deep tissue of left buttock; Pressure ulcer of right buttock, stage 2 ([facility]) Discharge Disposition: Half-Way Facility-Medicare Cert 02/24/2025 4:54 PM EDT - 02/25/2025 4:05 PM EDT Emergency [facility] - Emergency [address] [place] [phone] Wu Mohan MD Acute deep vein thrombosis (DVT) of proximal vein of both lower extremities (CMS-HCC) (Primary Dx); Ovarian mass; Leukocytosis, unspecified type Discharge Disposition: [facility] 02/24/2025 3:15 PM EDT - 02/24/2025 4:53 PM EDT Hospital Encounter [facility] - Vascular [address] [place] [phone] Localized swelling, mass and lump, lower limb, right; Other specified soft tissue disorders Discharge Disposition: Home 02/24/2025 2:45 PM EDT - 02/24/2025 3:14 PM EDT Hospital Encounter [facility] - CT Imaging [address] [place] [phone] Localized swelling, mass and lump, lower limb, right; Generalized abdominal pain; Abdominal distension; SOB (shortness of breath); Tachycardia Discharge Disposition: Home 02/24/2025 Travel 02/18/2025 10:25 AM EDT - 02/18/2025 11:59 PM EDT Hospital Encounter [facility] - Radiology [address] [place] [phone] Bronchitis, not specified as acute or chronic; Chronic cough; Wheezing Discharge Disposition: Home 02/18/2025 Travel from Last 3 Months Immunizations Immunization Administration Dates Next Due Influenza (IM) Preservative Free 04/02/2018 Influenza Vaccine, Quadrivalent, Adjuvanted 03/05,04/07/2021 Influenza, Injectable, Quadrivalent 03/30/2017 Influenza, Injectable, quadrivalent (PF) 020 Influenza, Trivalent, Adjuvanted 04/01/2024 Influenza, Unspecified 04/01/2019,04/01/2018 Pneumococcal Conjugate 20-valent 04/01/2022 Pneumococcal Polysaccharide 04/07/2021 Tdap 04/03/2019 Zoster Vaccine Recombinant 05/21/2020,03/21/2020 Family History Medical History Relation Name Comments Breast cancer Neg Hx Social History Tobacco Use Types Packs/Day Years Used Date Smoking Tobacco: Former Cigarettes Smokeless Tobacco: Never Tobacco Cessation:Counseling Given: Not Answered Alcohol Use Standard Drinks/Week Comments Never 0 (1 standard drink = 0.6 oz pur e alcohol) [employer] Util[employer] Answer Date Recorded In the past 12 months has [employer], gas, oil, or water [employer] threatened to shut off services in your [...] Mass Index 31.93 02/25/2025 6:40 PM EDT Plan of Treatment Upcoming Encounters Date Type Department Care Team (Late st Contact Info) Description 04/03/2025 9:00 AM EDT Office Visit [facility] [address] [place] [address] Riya Howard, LEASE P[employer]ER-[employer]YST[employer] BE[employer] MOLDER [address] [place] [address] Health Maintenance Due Date Last Done Comments Fall Risk Screening 2021 COVID-19 Vaccine (2023-2 5 season) 2025 04/01/2024, 04/25/2023, 04/01/2022, Additional history exists Influenza Vaccine 03/03/2025 04/01/2024, , 04/07/2021, Additional history exists Depression Screening 02/25/2026 02/25/2025 Tobacco Screening 03/11/2026 03/11/2025 Adult BMI Follow Up Plan 2026 2025 Adult BMI Screening 03/20/2026 03/20/2025 DTaP,Tdap and Td Vaccines (2 - Td or Tdap) 04/03/2029 04/03/2019 Zoster (Shingles) Vaccine Completed 05/21/2020, Goals Goal Patient Goal Type Associated Problems Recent Progress Patient-Stated? Author Home General Yes Ludivina Mccray, RN Note: Evaluation of progress towards goal: Return home self care. Medical Devices Not on file Procedures Procedure Name Priority Date/Time Associated Diagnosis Comments DNR PHYSICIAN ORDER REPORT (SCANNED INTO EHR) 03/26/2025 12:30 PM EDT BEDSIDE GLUCOSE Routine 03/21/2025 11:11 AM EDT CBC WITH AUTO DIFFERENTIAL Routine 03/21/2025 5:07 AM EDT IONIZED CALCIUM Routine 03/21/2025 5:07 AM EDT PHOSPHORUS Routine 03/21/2025 5:07 AM EDT PROTIME & INR Routine 03/21/2025 5:07 AM EDT BEDSIDE GLUCOSE [...] EXTRA TUBES Routine 03/20/2025 7:05 AM EDT HEPARIN ANTI XA, UNFRACTIONATED Routine 03/20/2025 7:04 AM EDT PROTIME & INR Routine 03/20/2025 7:04 AM EDT CBC WITH AUTO DIFFERENTIAL Routine 03/20/2025 5:34 AM EDT IONIZED CALCIUM Routine 03/20/2025 5:34 AM EDT PHOSPHORUS Routine 03/20/2025 5:34 AM EDT BEDSIDE GLUCOSE [...] 1 VW Routine 03/19/2025 6:11 AM EDT HEPARIN ANTI XA, UNFRACTIONATED Routine 03/19/2025 4:48 AM EDT IONIZED CALCIUM Routine 03/19/2025 4:48 AM EDT PHOSPHORUS Routine 03/19/2025 4:48 AM EDT PROTIME & INR Routine 03/19/2025 4:48 AM EDT BEDSIDE GLUCOSE Routine 03/18/2025 9:29 PM EDT BEDSIDE GLUCOSE Routine 03/18/2025 5:18 PM EDT IONIZED MAGNESIUM Routine 03/18/2025 3:5 9 PM EDT BEDSIDE GLUCOSE Routine 03/18/2025 10:59 AM EDT BASIC METABOLIC PANEL Routine 03/18/2025 10:13 AM EDT BEDSIDE GLUCOSE Routine 03/18/2025 6:06 AM EDT HEPARIN ANTI XA, UNFRACTIONATED Add-On 03/18/2025 4:01 AM EDT IONIZED CALCIUM Routine 03/18/2025 4:01 AM EDT PHOSPHORUS Routine 03/18/2025 4:01 AM EDT PROTIME & INR Routine 03/18/2025 4:01 AM EDT CBC (NO DIFF) Routine 03/18/2025 4:01 AM EDT MAGNESIUM Routine 03/18/2025 4:01 AM EDT BASIC METABOLIC PANEL Routine 03/18/2025 4:01 AM EDT BEDSIDE GLUCOSE Routine 03/17/2025 9:57 PM EDT BASIC METABOLIC PANEL Routine 03/17/2025 8:50 PM EDT MAGNESIUM Routine 03/17/2025 3:56 PM EDT BASIC METABOLIC PANEL Routine 03/17/2025 3:56 PM EDT BEDSIDE GLUCOSE Routine 03/17/2025 3:55 PM EDT BEDSIDE GLUCOSE Routine 03/17/2025 10:57 AM EDT BEDSIDE GLUCOSE Routine 03/17/2025 5:38 AM EDT HEPARIN ANTI XA, UNFRACTIONATED Add-On 03/17/2025 3:27 AM EDT IONIZED CALCIUM Routine 03/17/2025 3:27 AM EDT PHOSPHORUS Routine 03/17/2025 3:27 AM EDT PROTIME & INR Routine 03/17/2025 3:27 AM EDT CBC (NO DIFF) Routine 03/17/2025 3:27 AM EDT MAGNESIUM Routine 03/17/2025 3:27 AM EDT BASIC METABOLIC PANEL Routine 03/17/2025 3:27 AM EDT BEDSIDE GLUCOSE Routine 03/17/2025 3:20 AM EDT BEDSIDE GLUCOSE Routine 2025 11:28 PM EDT BEDSIDE GLUCOSE Routine 2025 9:52 PM EDT BEDSIDE GLUCOSE Routine 2025 9:07 PM EDT IONIZED CALCIUM Routine 2025 7:57 PM EDT BASIC METABOLIC PANEL Routine 2025 7:57 PM EDT BEDSIDE GLUCOSE Routine 2025 2:16 PM EDT HAPTOGLOBIN Routine 2025 9:04 AM EDT CBC (NO DIFF) STAT 2025 9:04 AM EDT IONIZED CALCIUM Routine [...] EDT LDH Add-On 2025 3:04 AM EDT RETICULOCYTES Add-On 2025 3:04 AM EDT HEPARIN ANTI XA, UNFRACTIONATED Routine 2025 3:04 AM EDT IONIZED CALCIUM Routine 2025 3:04 AM EDT PHOSPHORUS Routine 2025 3:04 AM EDT PROTIME & INR Routine 2025 3:04 AM EDT CBC (NO DIFF) Routine 2025 3:04 AM EDT MAGNESIUM Routine 2025 3:04 AM EDT BASIC METABOLIC PANEL Routine 2025 3:04 AM EDT PHOSPHORUS Routine 03/15/2025 10:31 PM EDT BASIC METABOLIC PANEL Routine 03/15/2025 10:31 PM EDT BEDSIDE GLUCOSE Routine 03/15/2025 8:40 PM EDT BASIC METABOLIC PANEL Routine 03/15/2025 1:56 PM EDT PHOSPHORUS Routine 03/15/2025 1:56 PM EDT GREEN LIHP ICE TOP Routine 03/15/2025 1: 55 PM EDT RAINBOW DRAW Routine 03/15/2025 1:55 PM EDT IONIZED CALCIUM Routine 03/15/2025 1:55 PM EDT LIVER PANEL Add-On 03/15/2025 9:10 AM EDT BASIC METABOLIC PANEL Routine 03/15/2025 9:10 AM EDT BEDSIDE GLUCOSE Routine 03/15/2025 9:09 AM EDT IONIZED CALCIUM Routine 03/15/2025 2:49 AM EDT HEPARIN ANTI XA, UNFRACTIONATED Routine 03/15/2025 2:46 AM EDT VITAMIN D 25 HYDROXY Routine 03/15/2025 2:46 AM EDT PHOSPHORUS Routine 03/15/2025 2:46 AM EDT PROTIME & INR Routine 03/15/2025 2:46 AM EDT CBC (NO DIFF) Routine 03/15/2025 2:46 AM EDT MAGNESIUM Routine 03/15/2025 2:46 AM EDT BASIC METABOLIC PANEL Routine 03/15/2025 2:46 AM EDT BEDSIDE GLUCOSE Routine 03/14/2025 8:32 PM EDT BASIC METABOLIC PANEL Routine 03/14/2025 8:32 PM EDT BASIC METABOLIC PANEL Add-On 03/14/2025 2:30 PM EDT POTASSIUM Routine 03/14/2025 2:30 PM EDT PHOSPHORUS Routine 03/14/2025 2:30 PM EDT BEDSIDE GLUCOSE Routine 03/14/2025 2:15 PM EDT BRONCHOPULMONARY HYGIENE Routine 03/14/2025 11:51 AM EDT BRONCHOPULMONARY HYGIENE Routine 03/14/2025 11:51 AM EDT BRONCHOPULMONARY HYGIENE Routine 03/14/2025 11:51 AM EDT BEDSIDE GLUCOSE Routine 03/14/2025 8:20 AM EDT IONIZED CALCIUM Routine 03/14/2025 3:39 AM EDT TYPE AND SCREEN Routine 03/14/2025 3:33 AM EDT HEPARIN ANTI XA, UNFRACTIONATED Routine 03/14/2025 2:34 AM EDT PHOSPHORUS Routine 03/14/2025 2:34 AM EDT PROTIME & INR Routine 03/14/2025 2:34 AM EDT CBC (NO DIFF) Routine 03/14/2025 2:34 AM EDT MAGNESIUM Routine 03/14/2025 2:34 AM EDT BASIC METABOLIC PANEL Routine 03/14/2025 2:34 AM EDT BEDSIDE GLUCOSE Routine 03/14/2025 2:33 AM EDT BEDSIDE GLUCOSE Routine 03/13/2025 8:05 PM EDT POTASSIUM Routine 03/13/2025 6:14 PM EDT IONIZED CALCIUM Routine 03/13/2025 6:14 PM EDT BEDSIDE GLUCOSE Routine 03/13/2025 2:55 PM EDT PHOSPHORUS Routine 03/13/2025 12:08 PM EDT IONIZED MAGNESIUM Routine 03/13/2025 12: 08 PM EDT POTASSIUM Routine 03/13/2025 9:33 AM [...] (NO DIFF) Routine 03/13/2025 1:54 AM EDT PHOSPHORUS Add-On 03/13/2025 1:53 AM EDT MAGNESIUM Add-On 03/13/2025 1:53 AM EDT HEPARIN ANTI XA, UNFRACTIONATED Routine 03/13/2025 1:53 AM EDT BASIC METABOLIC PANEL Routine 03/13/2025 1:53 AM EDT BEDSIDE GLUCOSE Routine 03/12/2025 9:44 PM EDT XR CHEST 1 VW Routine 03/12/2025 9:02 PM EDT BEDSIDE GLUCOSE Routine 03/12/2025 2:01 PM EDT POTASSIUM Routine 03/12/2025 1:55 PM EDT HEPARIN ANTI XA, UNFRACTIONATED Routine 03/12/2025 1:55 PM EDT IONIZED CALCIUM Routine 03/12/2025 12:20 PM EDT EXTUBATION Routine 03/12/2025 10:00 AM EDT BEDSIDE GLUCOSE Routine 03/12/2025 9:29 AM EDT BEDSIDE GLUCOSE Routine 03/12/2025 9:24 AM EDT POTASSIUM Routine 03/12/2025 8:04 AM EDT HEPARIN ANTI XA, UNFRACTIONATED Routine 03/12/2025 8:04 AM EDT XR CHEST 1 VW Routine 03/12/2025 4:36 AM EDT IONIZED CALCIUM Routine 03/12/2025 3:12 AM EDT BEDSIDE GLUCOSE Routine 03/12/2025 3:11 AM EDT HEPARIN ANTI XA, UNFRACTIONATED Routine 03/12/2025 2:05 AM EDT APTT Routine 03/12/2025 2:05 AM EDT PHOSPHORUS Routine 03/12/2025 2:05 AM EDT PROTIME & INR Routine 03/12/2025 2:05 AM EDT CBC (NO DIFF) Routine 03/12/2025 2:05 AM EDT MAGNESIUM Routine 03/12/2025 2:05 AM EDT BASIC METABOLIC PANEL Routine 03/12/2025 2:05 AM EDT BEDSIDE GLUCOSE Routine 03/11/2025 8:52 PM EDT BEDSIDE GLUCOSE Routine 03/11/2025 4:45 PM EDT IONIZED MAGNESIUM Routine 03/11/2025 4:4 0 PM EDT IONIZED CALCIUM Routine 03/11/2025 4:40 PM EDT HEPARIN ANTI XA, UNFRACTIONATED Routine 03/11/2025 4:40 PM EDT HEMOGLOBIN AND HEMATOCRIT, BLOOD Routine 03/11/2025 4:40 PM EDT ENTEROSTOMAL THERAPY [...] BEDSIDE GLUCOSE Routine 03/11/2025 3:20 AM EDT PHOSPHORUS Routine 03/11/2025 2:10 AM EDT PROTIME & INR Routine 03/11/2025 2:10 AM EDT CBC (NO DIFF) Routine 03/11/2025 2:10 AM EDT MAGNESIUM Routine 03/11/2025 2:10 AM EDT BASIC METABOLIC PANEL Routine 03/11/2025 2:10 AM EDT APTT Routine 03/11/2025 2:10 AM EDT POTASSIUM Routine 03/11/2025 12:37 AM EDT RESP ARTERIAL LINE SETUP Routine 03/11/2025 12:00 AM EDT BEDSIDE GLUCOSE Routine 03/10/2025 8:32 PM EDT APTT Add-On 03/10/2025 8:30 PM EDT HEPARIN ANTI XA, UNFRACTIONATED Routine 03/10/2025 8:30 PM EDT HEMOGLOBIN AND HEMATOCRIT, BLOOD Routine 03/10/2025 8:30 PM EDT RESP ARTERIAL [...] BEDSIDE GLUCOSE Routine 03/10/2025 3:37 AM EDT PHOSPHORUS Routine 03/10/2025 3:31 AM EDT PROTIME & INR Routine 03/10/2025 3:31 AM EDT CBC (NO DIFF) Routine 03/10/2025 3:31 AM EDT MAGNESIUM Routine [...] 1 VW Routine 03/09/2025 11:54 AM EDT IONIZED CALCIUM Routine 03/09/2025 10:41 AM EDT PHOSPHORUS Routine 03/09/2025 10:41 AM EDT MAGNESIUM Routine 03/09/2025 10:41 AM EDT COMPREHENSIVE METABOLIC PANEL Routine 03/09/2025 10:41 AM EDT CBC WITH AUTO DIFFERENTIAL Routine 03/09/2025 10:41 AM EDT XR ABDOMEN AP 1 VW Routine 03/09/2025 9: 30 AM EDT SURGICAL PATHOLOGY Routine 03/09/2025 9: 15 AM EDT APPLICATION WOUND VAC MIDSECTION 03/09/2025 8:39 AM EDT OPEN ABDOMEN CLOSURE WOUND MIDSECTION 03/09/2025 8:39 AM EDT OPEN ABDOMEN RESECTION BOWEL SMALL 03/09/2025 8:39 AM EDT OPEN ABDOMEN ILEOSTOMY 03/09/2025 8:39 AM EDT OPEN ABDOMEN WA EXPLORATORY OF ABDOMEN 03/09/2025 8:39 AM EDT [...] BEDSIDE GLUCOSE Routine 03/09/2025 3:31 AM EDT PHOSPHORUS Routine 03/09/2025 3:25 AM EDT PROTIME & INR Routine 03/09/2025 3:25 AM EDT MAGNESIUM Routine 03/09/2025 3:25 AM EDT BASIC METABOLIC PANEL Routine 03/09/2025 3:25 AM EDT RESP ARTERIAL LINE SETUP Routine 03/09/2025 12:00 AM EDT BEDSIDE GLUCOSE Routine 03/08/2025 11:51 PM EDT LACTATE W/ REFLEX Routine 03/08/2025 11: 48 PM EDT POTASSIUM Routine 03/08/2025 11:48 PM EDT LACTATE Routine 03/08/2025 9:51 PM EDT APTT Routine 03/08/2025 9:51 PM EDT HEMOGLOBIN AND HEMATOCRIT, BLOOD Routine 03/08/2025 9:51 PM EDT RESP ARTERIAL LINE SETUP Routine 03/08/2025 8:00 PM EDT BEDSIDE GLUCOSE Routine 03/08/2025 7:25 PM EDT VENTILATION Routine 03/08/2025 5:55 PM EDT VENTILATION Routine 03/08/2025 5:55 PM EDT VENTILATION Routine 03/08/2025 5:55 PM EDT VENTILATION Routine 03/08/2025 5:55 PM EDT VENTILATION Routine 03/08/2025 5:55 PM EDT BLOOD GAS, ARTERIAL Routine 03/08/2025 5 :43 PM EDT HEPARIN ANTI XA, UNFRACTIONATED Routine 03/08/2025 5:10 PM EDT PROTIME & INR Routine 03/08/2025 5:10 PM EDT APTT Routine 03/08/2025 5:10 PM EDT LACTATE W/ REFLEX Routine 03/08/2025 5:1 0 PM EDT POTASSIUM Routine 03/08/2025 5:10 PM EDT BEDSIDE GLUCOSE Routine 03/08/2025 5:09 PM EDT RESP ARTERIAL LINE SETUP Routine 03/08/2025 4:00 PM EDT BEDSIDE GLUCOSE Routine 03/08/2025 3:06 PM EDT BEDSIDE GLUCOSE Routine 03/08/2025 2:08 PM EDT PLATELET COUNT Add-On 03/08/2025 1:02 PM EDT HEMOGLOBIN AND HEMATOCRIT, BLOOD Routine 03/08/2025 1:02 PM EDT BEDSIDE GLUCOSE Routine 03/08/2025 12:57 PM EDT BEDSIDE GLUCOSE Routine 03/08/2025 12:08 PM EDT RESP ARTERIAL LINE SETUP Routine 03/08/2025 12:00 PM EDT POTASSIUM Routine 03/08/2025 11:13 AM EDT LACTATE W/ REFLEX Routine 03/08/2025 11: 13 AM EDT BEDSIDE GLUCOSE Routine 03/08/2025 11:09 [...] 0 HOUR STAT 03/08/2025 12:32 AM EDT COMPREHENSIVE METABOLIC PANEL Routine 03/08/2025 12:32 AM EDT B-TYPE NATRIURETIC PEPTIDE Routine 03/08/2025 12:32 AM EDT TROPONIN I, HIGH SENSITIVITY 0 HOUR STAT 03/08/2025 12:32 AM EDT FIBRINOGEN Routine 03/08/2025 12:32 AM EDT PHOSPHORUS Routine 03/08/2025 12:32 AM EDT MAGNESIUM Routine 03/08/2025 12:32 AM EDT LACTATE W/ REFLEX Routine 03/08/2025 12: 32 AM EDT CBC (NO DIFF) Routine 03/08/2025 12:32 AM EDT PROTIME & INR Routine 03/08/2025 12:32 AM EDT WA ANES CENTRAL LINE Routine 03/08/2025 12:10 AM EDT SURGICAL PATHOLOGY Routine 03/07/2025 11 :28 PM EDT BLOOD GAS, ARTERIAL Routine 03/07/2025 1 1:13 PM EDT WA ANES ART LINE Routine 03/07/2025 10:5 9 PM EDT WA AN ELECTIVE ENDOTRACHEAL AIRWAY Routine 03/07/2025 10:38 PM EDT SALPINGO-OOPHORECTOMY 03/07/2025 10:26 PM EDT ADENEXAL MASS COLECTOMY 03/07/2025 10:26 PM EDT ADENEXAL MASS WA EXPLORATORY OF ABDOMEN 03/07/2025 10:26 PM EDT ADENEXAL MASS TRANSFUSE FRESH FROZEN PLASMA STAT 03/07/2025 9:55 PM EDT PROTIME & INR Add-On 03/07/2025 7:40 PM EDT APTT Routine 03/07/2025 7:40 PM EDT TRANSFUSE FRESH FROZEN [...] XA, UNFRACTIONATED Routine 03/06/2025 8:29 PM EDT PROTIME & INR Routine 03/06/2025 2:01 PM EDT APTT Routine 03/06/2025 2:01 PM EDT PLATELET COUNT Routine 03/06/2025 2:01 PM EDT HEMOGLOBIN Routine 03/06/2025 2:01 PM EDT XR CHEST 1 VW Routine 03/06/2025 1:29 PM EDT URINE CREATININE,RANDOM Routine 03/06/20 12:41 PM EDT URINALYSIS Routine 03/06/2025 12:41 PM EDT UREA RANDOM, URINE Routine 03/06/2025 12 :41 PM EDT SODIUM, URINE, RANDOM Routine 03/06/2025 12:41 PM EDT PROTEIN CREAT RATIO Routine 03/06/2025 1 2:41 PM EDT MICROALBUMIN / CREATININE URINE RATIO Routine 03/06/2025 12:[address] ABDOMEN AND PELVIS WO CONT STAT 03/06/2025 11:13 AM EDT URIC ACID Add-On 03/06/2025 5:36 AM EDT CK TOTAL Routine 03/06/2025 5:36 AM EDT B-TYPE NATRIURETIC PEPTIDE Routine 03/06/2025 5:36 AM EDT CBC (NO DIFF) Routine 03/06/2025 5:36 AM EDT MAGNESIUM Routine 03/06/2025 5:36 AM EDT BASIC METABOLIC PANEL Routine 03/06/2025 5:36 AM EDT HEPARIN ANTI XA, UNFRACTIONATED Routine 03/05/2025 12:46 PM EDT CBC (NO DIFF) Routine 03/05/2025 4:03 AM EDT MAGNESIUM Routine 03/05/2025 4:03 AM EDT BASIC METABOLIC PANEL Routine 03/05/2025 4:03 AM EDT HEPARIN ANTI XA, UNFRACTIONATED Routine 03/05/2025 4:03 AM EDT POTASSIUM Routine 03/04/2025 9:12 PM EDT HEPARIN ANTI XA, UNFRACTIONATED Routine 03/04/2025 9:12 PM EDT LEAD, BLOOD Routine 03/04/2025 1:54 PM EDT HEPARIN ANTI XA, UNFRACTIONATED Routine 03/04/2025 1:54 PM EDT HEPARIN ANTI XA, UNFRACTIONATED Routine 03/04/2025 7:16 AM EDT CBC (NO DIFF) Routine 03/04/2025 7:16 AM EDT MAGNESIUM Routine 03/04/2025 7:16 AM EDT BASIC METABOLIC PANEL Routine 03/04/2025 7:16 AM EDT CBC (NO DIFF) Routine 03/03/2025 4:36 AM EDT MAGNESIUM Routine 03/03/2025 4:36 AM EDT BASIC METABOLIC PANEL Routine 03/03/2025 4:36 AM EDT HEPARIN ANTI XA, UNFRACTIONATED Routine 03/03/2025 4:36 AM EDT EXTRA TUBES [...] BIOPSY ABD/RETRO Routine 02/28/2025 3:51 PM EDT SURGICAL PATHOLOGY Routine 02/28/2025 1: 25 PM EDT Colon cancer screening NON-GYNECOLOGIC CYTOLOGY Routine 02/28/2025 1:25 PM EDT Colon cancer screening REFLEXED BODY FLUID CELL COUNT DIFFERENTIAL Routine 02/28/2025 1:25 PM EDT Colon cancer screening BODY FLUID CELL COUNT Routine 02/28/2025 1:25 PM EDT Colon cancer screening ALBUMIN, FLUID Routine 02/28/2025 1:25 PM EDT Colon cancer screening BODY FLUID CULTURE Routine 02/28/2025 1: 25 PM EDT Colon cancer screening HEPARIN ANTI XA, UNFRACTIONATED Routine 02/28/2025 6:22 AM EDT CBC (NO DIFF) Routine 02/28/2025 6:22 AM EDT MAGNESIUM Routine 02/28/2025 6:22 AM EDT BASIC METABOLIC PANEL Routine 02/28/2025 6:22 AM EDT EXTRA TUBES LAVENDER TOP Routine 02/27/2025 6:14 PM EDT EXTRA TUBES Routine 02/27/2025 6:14 PM EDT INHIBIN B, S Routine 02/27/2025 6:14 PM EDT CBC (NO DIFF) Routine 02/27/2025 2:20 AM EDT MAGNESIUM Routine 02/27/2025 2:20 AM EDT BASIC METABOLIC PANEL Routine 02/27/2025 2:20 AM EDT HEPARIN ANTI XA, UNFRACTIONATED Routine 02/27/2025 2:20 AM EDT HEPARIN ANTI XA, UNFRACTIONATED Routine 02/26/2025 7:41 PM EDT ECHO COMPLETE WO CONTRAST Routine 02/26/2025 3:15 PM EDT THIN PREP PAP TEST Routine 02/26/2025 1: 55 PM EDT HIGH RISK HPV W/MYRIAM Routine 02/26/2025 1:55 PM EDT HEPARIN ANTI XA, UNFRACTIONATED Routine 02/26/2025 12:05 PM EDT INHIBIN-A (DIMER) Add-On 02/26/2025 11: 14 AM EDT CEA STAT 02/26/2025 11:14 AM EDT HE4, S Routine 02/26/2025 11:14 AM EDT HAPTOGLOBIN Routine 02/26/2025 11:14 AM EDT CANCER ANTIGEN 19-9 STAT Add-on 02/26/2025 2 :59 AM EDT CA 125 Add-On 02/26/2025 2:59 AM EDT LDH Add-On 02/26/2025 2:59 AM EDT VITAMIN B12 Add-On 02/26/2025 2:59 AM EDT FOLATE Add-On 02/26/2025 2:59 AM EDT FERRITIN Add-On 02/26/2025 2:59 AM EDT IRON AND TIBC Add-On 02/26/2025 2:59 AM EDT CBC (NO DIFF) Routine 02/26/2025 2:59 AM EDT MAGNESIUM Routine 02/26/2025 2:59 AM EDT BASIC METABOLIC PANEL Routine 02/26/2025 2:59 AM EDT HEPARIN ANTI XA, UNFRACTIONATED Routine 02/26/2025 2:59 AM EDT HEPARIN ANTI XA, UNFRACTIONATED Routine 02/25/2025 8:49 PM EDT URINALYSIS Routine 02/25/2025 8:26 PM EDT URINE CULTURE Routine 02/25/2025 8:[address] CTA CHEST STAT 02/25/2025 6:57 PM EDT HEPARIN ANTI XA, UNFRACTIONATED STAT 02/25/2025 1:58 PM EDT PLATELET COUNT STAT 02/25/2025 7:13 AM EDT HEMOGLOBIN STAT 02/25/2025 7:13 AM EDT EXTRA TUBES PST TOP Routine 02/25/2025 7 :12 AM EDT EXTRA TUBES Routine 02/25/2025 7:12 AM EDT HEPARIN ANTI XA, UNFRACTIONATED STAT 02/25/2025 7:12 AM EDT HEPARIN ANTI XA, UNFRACTIONATED STAT 02/24/2025 11:43 PM EDT TROP I, HIGH SENSITIVITY 1 HOUR STAT 02/24/2025 6:47 PM EDT TROPONIN I, HIGH SENSITIVITY 0 HOUR STAT 02/24/2025 5:28 PM EDT LACTATE W/ REFLEX STAT 02/24/2025 5:2 8 PM EDT APTT STAT 02/24/2025 5:28 PM EDT PROTIME & INR STAT 02/24/2025 5:28 PM EDT TROPONIN I, HIGH SENSITIVITY 0 HOUR STAT 02/24/2025 5:28 PM EDT MAGNESIUM STAT 02/24/2025 5:28 PM EDT D-DIMER STAT 02/24/2025 5:28 PM EDT COMPREHENSIVE METABOLIC PANEL STAT 02/24/2025 5:28 PM EDT B-TYPE NATRIURETIC PEPTIDE STAT 02/24/2025 5:28 PM EDT CBC WITH AUTO DIFFERENTIAL STAT 02/24/2025 5:28 PM EDT ECG 12-LEAD STAT 02/24/2025 5:18 PM EDT VASC VENOUS DUPLEX LOWER BILATERAL Routine 02/24/2025 4:59 PM EDT Localized swelling, mass and lump, lower limb, right Other specified soft tissue disorders CT ABDOMEN AND PELVIS W CONT Routine 02/24/2025 3:54 PM EDT Localized swelling, mass and lump, lower limb, right Generalized abdominal pain Abdominal distension SOB (shortness of breath) Tachycardia CBC WITH AUTO DIFFERENTIAL STAT 02/24/2025 3:44 PM EDT Localized swelling, mass and lump, right lower limb Other specified soft tissue disorders Abdominal distension (gaseous) Shortness of breath Tachycardia, unspecified COMPREHENSIVE METABOLIC PANEL STAT 02/24/2025 3:44 PM EDT Localized swelling, mass and lump, right lower limb Other specified soft tissue disorders Abdominal distension (gaseous) Shortness of breath Tachycardia, unspecified XR CHEST 2 VWS Routine 02/18/2025 10:53 AM EDT Bronchitis, not specified as acute or chronic Chronic cough Wheezing from Last 3 Months Results * DNR Physician Order Report (Scanned Into EHR) (03/26/2025 12:30 PM EDT) Narrative 03/26/2025 12:30 PM EDT Ordered by an unspecified provider. us Not In System Ref Prov OUTPATIENT REFERRAL ORDER EMILEE Final Result * Bedside Glucose *Place/Obtain serum glucose if >500 per glucometer. (03/21/2025 11:11 AM EDT) Only the most recent of67 resultswithin the time period is included. [facility] Bedside Glucose (POC) 96 65 - 99 mg/dL 03/21/2025 11:13 AM EDT [facility] arterial/capilla ry 03/21/2025 11:11 AM EDT 03/21/2025 11:13 AM EDT us Dario Burris MD POINT OF CARE TEST ORDERABLES Fi nal Result [facility] [address] [place] [address], * (ABNORMAL) CBC auto differential (03/21/2025 5:07 AM EDT) Only the most recent of6 resultswithin the time period is included. [facility] WBC 7.2 4 - 11 x10E9/L 03/21/2025 6:51 AM EDT [facility] RBC Count 3.68(L) 3.8 - 5.2 X10E12/L 03/21/2025 6:51 AM EDT [facility] Hemoglobin 10.0(L) 11.7 - 15.5 g/dL 03/21/2025 6:51 AM EDT [facility] Hematocrit 31.1(L) 35 - 47 % 03/21/2025 6:51 AM EDT [facility] MCV 85 80 - 100 fL 03/21/2025 6:51 AM EDT [facility] MCH 27.3 27 - 34 pg 03/21/2025 6:51 AM EDT [facility] MCHC 32.3 32 - 36 g/dL 03/21/2025 6:51 AM EDT [facility] RDW 28.3(H) 11.5 - 15 % 03/21/2025 6:51 AM EDT [facility] Platelet Count 350 150 - 450 X10E9/L 03/21/2025 6:51 AM EDT [facility] MPV 7.1 7 - 12 fL 03/21/2025 6:51 AM EDT [facility] Neutrophils % 76.6 % 03/21/2025 6:51 AM EDT [facility] Comment:This is an appended report. These results have been appended to a previously preliminary verified report. Lymphocytes % 10.4 % 03/21/2025 6:51 AM T [facility] Comment:This is an appended report. These results have been appended to a previously preliminary verified report. Monocytes % 9.8 % 03/21/2025 6:51 AM EDT [facility] Comment:This is an appended report. These results have been appended to a previously preliminary verified report. Eosinophils % 2.4 % 03/21/2025 6:51 AM EDT [facility] Comment:This is an appended report. These results have been appended to a previously preliminary verified report. Basophils % 0.8 % 03/21/2025 6:51 AM EDT [facility] Comment:This is an appended report. These results have been appended to a previously preliminary verified report. Neutrophils Absolute (A) 5.5 1.5 - 6.6 10*3/uL 03/21/2025 6:51 AM EDT [facility] Comment:This is an appended report. These results have been appended to a previously preliminary verified report. Lymphocytes Absolute 0.8(L) 1.0 - 3.5 10*3/uL 03/21/2025 6:51 AM EDT [facility] Comment:This is an appended report. These results have been appended to a previously preliminary verified report. Monocytes Absolute 0.7 0.0 - 0.9 10*3/uL 03/21/2025 6:51 AM EDT [facility] Comment:This is an appended report. These results have been appended to a previously preliminary verified report. Eosinophils Absolute 0.2 0.0 - 0.4 10*3/uL 03/21/2025 6:51 AM EDT [facility] Comment:This is an appended report. These results have been appended to a previously preliminary verified report. Basophils Absolute 0.1 0.0 - 0.2 10*3/uL 03/21/2025 6:51 AM EDT [facility] Comment:This is an appended report. These results have been appended to a previously preliminary verified report. Anisocytosis 2+ 03/21/2025 6:51 AM EDT [facility] Comment:This is an appended report. These results have been appended to a previously preliminary verified report. Polychromasia 1+ 03/21/2025 6:51 AM EDT [facility] Comment:This is an appended report. These results have been appended to a previously preliminary verified report. Differential Type AUTOMATED DIFFERENTIAL 03/21/2025 6:51 AM EDT [facility] Comment:This is an appended report. These results have been appended to a previously preliminary verified report. Blood Venous blood / Unknown Venipuncture / Unknown 03/21/2025 5:07 AM EDT 03/21/2025 5:21 AM EDT Ernie Elizondo [employer] LAB BLOOD ORDERABLES Brandy l Result [facility] [address] [place] [address], [place] [phone] * (ABNORMAL) Protime & INR (03/21/2025 5:07 AM EDT) Only the most recent of19 resultswithin the time period is included. PROTIME 14.7(H) 9.8 - 13.2 sec 03/21/2025 6:24 AM EDT [facility] INR 1.3(H) 0.9 - 1.2 03/21/2025 6:24 AM EDT [facility] Blood Venous blood / Unknown Venipuncture / Unknown 03/21/2025 5:07 AM EDT 03/21/2025 5:21 AM EDT Eleni Harding [employer] LAB BLOOD ORDERABLES Fi nal Result [facility] [address] [place] [address], * Phosphorus (03/21/2025 5:07 AM EDT) Only the most recent of21 resultswithin the time period is included. PHOSPHORUS 3.4 2.4 - 4.9 mg/dL 03/21/2025 5:57 AM EDT [facility] Blood Venous blood / Unknown Venipuncture / Unknown 03/21/2025 5:07 AM EDT 03/21/2025 5:21 AM EDT Дмитрий Lara MD LAB BLOOD ORDERABLES Final Resul t Performing Organization Address City/[facility] Co de Phone Number [facility] [place] [address], * Ionized calcium (03/21/2025 5:07 AM EDT) Only the most recent of20 resultswithin the time period is included. IONIZED CALCIUM - ICAN 4.5 4.5 - 5.3 mg/dL 03/21/2025 5:42 AM EDT [facility] Blood Venous blood / Unknown Venipuncture / Unknown 03/21/2025 5:07 AM EDT 03/21/2025 5:27 AM EDT Armani Fall MD LAB BLOOD ORDERABLES Final Resul t [facility] [address] [place] [address] [place] [address], * SST TOP (03/20/2025 7:05 AM EDT) Extra Tube Auto Resulted 03/20/2025 9:01 AM EDT [facility] Blood Venous blood / Unknown 03/20/2025 7:05 AM EDT 03/20/2025 7:22 AM EDT Dario Burris MD LAB BLOOD ORDERABLES Final Resul t [facility] [address] [place] [address], * (ABNORMAL) Renal panel (03/20/2025 7:05 AM EDT) ALBUMIN 2.3(L) 3.2 - 5.3 g/dL 03/20/2025 10:25 AM EDT [facility] CALCIUM 7.8(L) 8.5 - 10.5 mg/dL 03/20/2025 10:25 AM EDT [facility] PHOSPHORUS 3.3 2.4 - 4.9 mg/dL 03/20/2025 10:25 AM EDT [facility] GLUCOSE 76 65 - 99 mg/dL 03/20/2025 10:25 AM EDT [facility] BLOOD UREA NITROGEN 6 5 - 27 mg/dL 03/20/2025 10:25 AM EDT [facility] CREATININE 0.41 0.40 - 1.00 mg/dL 03/20/2025 10:25 AM EDT [facility] Comment:METHOD TRACEABLE TO IDMS STANDARD SODIUM 139 134 - 146 mmol/L 03/20/2025 10:25 AM EDT [facility] POTASSIUM 4.1 3.5 - 5.0 mmol/L 03/20/2025 10:25 AM EDT [facility] CHLORIDE 107 98 - 109 mmol/L 03/20/2025 10:25 AM EDT [facility] CARBON DIOXIDE 24 22 - 32 mmol/L 03/20/2025 10:25 AM EDT [facility] ANION GAP 8 5 - 15 mmol/L 03/20/2025 10:25 AM EDT [facility] EGFR Non-Race Dependent >90 >=60 ml/min/1.7 3sq.m 03/20/2025 10:25 AM EDT [facility] Comment: Reported eGFR is based on the CKD-EPI 2020 equation that does not use a race coefficient. Blood Venous blood / Unknown 03/20/2025 7:05 AM EDT 03/20/2025 7:22 AM EDT us Omar Musa MD LAB BLOOD ORDERABLES Final Resu lt Performing Organization Address [facility] Co de Phone Number [facility] [address] [place] [address], * (ABNORMAL) Anti XA unfractionated heparin (03/20/2025 7:04 AM EDT) Only the most recent of37 resultswithin the time period is included. ANTI XA UFH 1.18(HH) 0.30 - 0.70 IU/mL 03/20/2025 7:41 AM EDT [facility] Comment: Optimal time for testing is 6 hrs post dosage This test is specific for monitoring patients on UFH, and is not recommended for use with other Anti-Xa medications. Blood Venous blood / Unknown Venipuncture / Unknown 03/20/2025 7:04 AM EDT 03/20/2025 7:22 AM EDT us Dario Burris MD LAB BLOOD ORDERABLES Final Resul t Performing Organization Address City/[facility]/ZIP Co de Phone Number [facility] [address] [place] [address], [place] [phone] * AMBU Bronch Study (03/19/2025 2:21 PM EDT) Narrative SYSTEMGENERATED, DOCUMENTATION - 03/19/2025 2:21 PM EDT This order was used for bronchoscopy imaging, auto-finalized, and does not contain a result. See procedural notes. For full report details, please reach out to your physician. us Дмитрий Lara MD IMG BEDSIDE STUDIES Final Result * X-ray chest 1 view (03/19/2025 6:11 AM EDT) Only the most recent of12 resultswithin the time period is included. Anatomical Region Laterality Modality Body, Chest N/A [...] Cabrera Walden MD on 03/19/2025 6:35 AM IJb MD have personally reviewed the image(s) and agree withand/or edited the report Finalized by Jb Cifuentes MD on 03/19/2025 7:07 AM us Dominga Rowe Calderon [employer] IMG DIAGNOSTIC IMAGING ORDERABLES Final Result * Ionized magnesium (03/18/2025 3:59 PM EDT) Only the most recent of4 resultswithin the time period is included. Pathologist [facility] IONIZED MAGNESIUM 0.52 0.45 - 0.74 mmol/L 03/18/2025 4:15 PM EDT [facility] Blood Venous blood / Unknown Venipuncture / Unknown 03/18/2025 3:59 PM EDT 03/18/2025 4:08 PM EDT us London Merino MD LAB BLOOD ORDERABLES Final Resul t [facility] [address] [place] [address], [place] [phone] * (ABNORMAL) Basic Metabolic Panel (03/18/2025 10:13 AM EDT) Only the most recent of31 resultswithin the time period is included. SODIUM 137 134 - 146 mmol/L 03/18/2025 10:58 AM EDT [facility] POTASSIUM 4.0 3.5 - 5.0 mmol/L 03/18/2025 10:58 AM EDT [facility] CHLORIDE 106 98 - 109 mmol/L 03/18/2025 10:58 AM EDT [facility] CARBON DIOXIDE 23 22 - 32 mmol/L 03/18/2025 10:58 AM EDT [facility] ANION GAP 8 5 - 15 mmol/L 03/18/2025 10:58 AM EDT [facility] BLOOD UREA NITROGEN 6 5 - 27 mg/dL 03/18/2025 10:58 AM EDT [facility] CREATININE 0.45 0.40 - 1.00 mg/dL 03/18/2025 10:58 AM EDT [facility] Comment:METHOD TRACEABLE TO IDMS STANDARD GLUCOSE 81 65 - 99 mg/dL 03/18/2025 10:58 AM EDT [facility] CALCIUM 8.0(L) 8.5 - 10.5 mg/dL 03/18/2025 10:58 AM EDT [facility] EGFR Non-Race Dependent >90 >=60 ml/min/1.7 3sq.m 03/18/2025 10:58 AM EDT [facility] Comment: Reported eGFR is based on the CKD-EPI 2020 equation that does not use a race coefficient. Blood Venous blood / Unknown Venipuncture / Unknown 03/18/2025 10:13 AM EDT 03/18/2025 10:35 AM EDT us Armani Fall MD LAB BLOOD ORDERABLES Final Resul t [facility] [address] [place] [address], [place] [phone] * (ABNORMAL) CBC without diff (03/18/2025 4:01 AM EDT) Only the most recent of22 resultswithin the time period is included. WBC 8.4 4 - 11 x10E9/L 03/18/2025 4:43 AM EDT [facility] RBC Count 3.73(L) 3.8 - 5.2 X10E12/L 03/18/2025 4:43 AM EDT [facility] Hemoglobin 10.0(L) 11.7 - 15.5 g/dL 03/18/2025 4:43 AM EDT [facility] Hematocrit 30.9(L) 35 - 47 % 03/18/2025 4:43 AM EDT [facility] MCV 83 80 - 100 fL 03/18/2025 4:43 AM EDT [facility] MCH 26.8(L) 27 - 34 pg 03/18/2025 4:43 AM EDT [facility] MCHC 32.4 32 - 36 g/dL 03/18/2025 4:43 AM EDT [facility] RDW 28.7(H) 11.5 - 15 % 03/18/2025 4:43 AM EDT [facility] Platelet Count 221 150 - 450 X10E9/L 03/18/2025 4:43 AM EDT [facility] MPV 8.6 7 - 12 fL 03/18/2025 4:43 AM EDT [facility] Blood Venous blood / Unknown Venipuncture / Unknown 03/18/2025 4:01 AM EDT 03/18/2025 4:29 AM EDT Neelima Serge Ta [employer] LAB BLOOD ORDERABLES Fi nal Result Performing Organization Address City/[facility]/ZIP Co de Phone Number [facility] [address] [place] [phone], * Magnesium (03/18/2025 4:01 AM EDT) Only the most recent of27 resultswithin the time period is included. Pathologist [facility] MAGNESIUM 2.0 1.8 - 2.6 mg/dL 03/18/2025 5:07 AM EDT [facility] Blood Venous blood / Unknown Venipuncture / Unknown 03/18/2025 4:01 AM EDT 03/18/2025 4:29 AM EDT [place] [employer] LAB BLOOD ORDERABLES Fi nal Result Performing Organization Address City/[facility]/ZIP Co de Phone Number [facility] [address] [place] [address] [place] [address], * (ABNORMAL) Haptoglobin (2025 9:04 AM EDT) Only the most recent of2 resultswithin the time period is included. HAPTOGLOBIN 328(H) 32 - 228 mg/dL 2025 10:28 AM EDT [facility] Blood Venous blood / Unknown Venipuncture / Unknown 2025 9:04 AM EDT 2025 9:22 AM EDT Geremias Romero MD LAB BLOOD ORDERABLES Final Result [facility] [address] [place] [address], * PST TOP (2025 8:58 AM EDT) Only the most recent of3 resultswithin the time period is included. Extra Tube Auto Resulted 2025 10:01 AM EDT [facility] Blood Venous blood / Unknown 2025 8:58 AM EDT 2025 9:23 AM EDT Ghassan Castillo MD LAB BLOOD ORDERABLES Final Resu lt Performing Organization Address City/[facility]/ZIP Co de Phone Number [facility] [address] [place] [address], * (ABNORMAL) Occult blood x 1, stool (2025 8:54 AM EDT) FECAL OCCULT BLOOD Positive(A ) Negative 2025 9:41 AM EDT [facility] Stool Feces / Unknown 2025 8 :54 AM EDT 2025 9:07 AM EDT Geremias Romero MD BODY FLUIDS AND STOOLS ORDE RABLES Final Result [facility] [address] [place] [address], * (ABNORMAL) LDH (2025 3:04 AM EDT) Only the most recent of2 resultswithin the time period is included. LDH 250(H) 100 - 235 U/L 2025 8:08 AM EDT [facility] Blood Venous blood / Unknown Venipuncture / Unknown 2025 3:04 AM EDT 2025 3:30 AM EDT Geremias Romero MD LAB BLOOD ORDERABLES Final Result [facility] [address] [place] [address], [place] [phone] * (ABNORMAL) Reticulocytes (2025 3:04 AM EDT) Reticulocyte Count 2.9(H) 0.4 - 2.2 % 2025 7:56 AM EDT [facility] Blood Venous blood / Unknown Venipuncture / Unknown 2025 3:04 AM EDT 2025 3:30 AM EDT Geremias Romero MD LAB BLOOD ORDERABLES Final Result Performing Organization Address City/[facility]/ZIP Co de Phone Number [facility] [address] [place] [address], [place] [phone] * GREEN LIHP ICE TOP (03/15/2025 1:55 PM EDT) Extra Tube Auto Resulted 03/15/2025 3:01 PM EDT [facility] Blood Venous blood / Unknown 03/15/2025 1:55 PM EDT 03/15/2025 2:13 PM EDT Ghassan Castillo MD LAB BLOOD ORDERABLES Final Resu lt [facility] [address] [place] [address], * (ABNORMAL) Liver panel (03/15/2025 9:10 AM EDT) Pathologist [facility] TOTAL PROTEIN 4.3(L) 6.0 - 8.0 g/dL 03/15/2025 12:45 PM EDT [facility] ALBUMIN 2.0(L) 3.2 - 5.3 g/dL 03/15/2025 12:45 PM EDT [facility] BILIRUBIN,TOTAL 0.6 0.3 - 1.2 mg/dL 03/15/2025 12:45 PM EDT [facility] ALKALINE PHOSPHATASE 235(H) 39 - 130 U/L 03/15/2025 12:45 PM EDT [facility] AST 22 <=41 U/L 03/15/2025 12:45 PM EDT [facility] ALT 16 <=31 U/L 03/15/2025 12:45 PM EDT [facility] BILIRUBIN,DIRECT 0.3 <=0.4 mg/dL 03/15/2025 12:45 PM EDT [facility] Blood Venous blood / Unknown 03/15/2025 9:10 AM EDT 03/15/2025 9:20 AM EDT us Emanuel Santiago MD LAB BLOOD ORDERABLES Final Res ult [facility] [address] [place] [address], * (ABNORMAL) Vitamin D 25 hydroxy (03/15/2025 2:46 AM EDT) Pathologist [facility] VITAMIN D 25 HYD TOT <7.0(L) 30.0 - 100.0 ng/mL 03/15/2025 4:06 AM EDT [facility] Blood Venous blood / Unknown 03/15/2025 2:46 AM EDT 03/15/2025 3:08 AM EDT Narrative [facility] - 03/15/2025 4:06 AM EDT Vitamin D status 25 [place] Vitamin D Deficiency <20 ng/mL Insufficiency 20-29 ng/mL Sufficiency 30-100 ng/mL Toxicity >100 ng/mL NOTE: A pediatric reference range has not been established by the litigator of this kit. The [place] [employer] recommends a Vitamin D level of = or >20ng/mL in infants and children. Matt Young MD LAB BLOOD ORDERABLES Final Resu lt Performing Organization Address City/[facility]/ZIP Co de Phone Number [facility] [address] [place] [address], * Potassium (03/14/2025 2:30 PM EDT) Only the most recent of15 resultswithin the time period is included. POTASSIUM 3.8 3.5 - 5.0 mmol/L 03/14/2025 3:14 PM EDT [facility] Blood Venous blood / Unknown 03/14/2025 2:30 PM EDT 03/14/2025 2:43 PM EDT Armani Fall MD LAB BLOOD ORDERABLES Final Resul t Performing Organization Address City/[facility]/ZIP Co de Phone Number [facility] [address] [place] [address], * Type and screen(includes indirect ramos) (03/14/2025 3:33 AM EDT) Only the most recent of2 resultswithin the time period is included. ABO A 03/14/2025 6:12 AM EDT [facility] RH Positive 03/14/2025 6:12 AM EDT [facility] Antibody Screen Negative 03/14/2025 6:12 AM EDT [facility] Blood Venous blood / Unknown 03/14/2025 3:33 AM EDT 03/14/2025 3:56 AM EDT Дмитрий Lara MD BLOOD BANK TEST ORDERABLES Edite d Result - Final Performing Organization Address City/[facility]/ZIP Co de Phone Number [facility] [address] [place] [address], [facility] [address] [place] [address], * (ABNORMAL) APTT (03/12/2025 2:05 AM EDT) Only the most recent of9 resultswithin the time period is included. APTT 48(H) 26 - 37 sec 03/12/2025 2:56 AM EDT [facility] Blood Venous blood / Unknown 03/12/2025 2:05 AM EDT 03/12/2025 2:18 AM EDT Orion Damico MD LAB BLOOD ORDERABLES Final R esult Performing Organization Address City/[facility]/ZIP Co de Phone Number [facility] [address] [place] [address], [place] [phone] * (ABNORMAL) Hemoglobin and hematocrit, blood (03/11/2025 4:40 PM EDT) Only the most recent of6 resultswithin the time period is included. Hemoglobin 10.2(L) 11.7 - 15.5 g/dL 03/11/2025 4:55 PM EDT [facility] Hematocrit 31.2(L) 35 - 47 % 03/11/2025 4:55 PM EDT [facility] Blood Venous blood / Unknown 03/11/2025 4:40 PM EDT 03/11/2025 4:50 PM EDT Ashok Hwang DO LAB BLOOD ORDERABLES Final Resul t Performing Organization Address [facility] Co de Phone Number [facility] [address] [place] [address], * Heparin PF4 AB (03/11/2025 12:53 PM EDT) HEPARIN PF4 ANTIBODY (HIT) 0.191 <0.400 OD 03/12/2025 3:29 PM EDT [facility] Comment: ------ O.D. Interpretation--- < 0.400 Negative >= 0.400 Positive Blood Venous blood / Unknown 03/11/2025 12:53 PM EDT 03/11/2025 1:04 PM EDT [facility]us [facility] LAB BLOOD ORDERABLES Final Result Performing Organization Address [facility] Co de Phone Number [facility] [address] [place] [address], * (ABNORMAL) Blood Gas, Arterial (03/11/2025 11:47 AM EDT) Only the most recent of10 resultswithin the time period is included. Pathologist [facility] Sample type ARTERIAL 03/11/2025 11:52 AM EDT [facility] pH, Arterial 7.408 7.350 - 7.450 03/11/2025 11:52 AM EDT [facility] pCO2, Arterial 38.8 35.0 - 45.0 mmHg 03/11/2025 11:52 AM EDT [facility] PO2, Arterial 129(H) 80 - 100 mmHg 03/11/2025 11:52 AM EDT [facility] Base, Excess 0.0 0.0 - 2.0 mmol/L 03/11/2025 11:52 AM EDT [facility] HCO3, Arterial 24.5 22.0 - 26.0 mmol/L 03/11/2025 11:52 AM EDT [facility] %O2 Saturation, Arterial 99.0 >90.0 % 03/11/2025 11:52 AM EDT [facility] Irwin's test N/A 03/11/2025 11:52 AM EDT [facility] SPO2 97 % 03/11/2025 11:52 AM EDT [facility] Sample site A Line 03/11/2025 11:52 AM EDT [facility] Insp. O2 conc. 40 % 03/11/2025 11:52 AM EDT [facility] Source Of Oxygen Vent 03/11/2025 11:52 AM EDT [facility] arterial (Blood, Arterial) 03/11/2025 11:47 AM EDT 03/11/2025 11:52 AM EDT us Ghassan Castillo MD LAB BLOOD ORDERABLES Final Resu lt [facility] [id number] [place] [address], * (ABNORMAL) Comprehensive metabolic panel (03/09/2025 10:41 AM EDT) Only the most recent of4 resultswithin the time period is included. SODIUM 139 134 - 146 mmol/L 03/09/2025 11:26 AM EDT [facility] POTASSIUM 4.9 3.5 - 5.0 mmol/L 03/09/2025 11:26 AM EDT [facility] CHLORIDE 109 98 - 109 mmol/L 03/09/2025 11:26 AM EDT [facility] CARBON DIOXIDE 23 22 - 32 mmol/L 03/09/2025 11:26 AM EDT [facility] ANION GAP 7 5 - 15 mmol/L 03/09/2025 11:26 AM EDT [facility] BLOOD UREA NITROGEN 30(H) 5 - 27 mg/dL 03/09/2025 11:26 AM EDT [facility] CREATININE 1.09(H) 0.40 - 1.00 mg/dL 03/09/2025 11:26 AM EDT [facility] Comment:METHOD TRACEABLE TO IDMS STANDARD GLUCOSE 114(H) 65 - 99 mg/dL 03/09/2025 11:26 AM EDT [facility] CALCIUM 7.8(L) 8.5 - 10.5 mg/dL 03/09/2025 11:26 AM EDT [facility] TOTAL PROTEIN 4.2(L) 6.0 - 8.0 g/dL 03/09/2025 11:26 AM EDT [facility] ALBUMIN 2.5(L) 3.2 - 5.3 g/dL 03/09/2025 11:26 AM EDT [facility] ALKALINE PHOSPHATASE 38(L) 39 - 130 U/L 03/09/2025 11:26 AM EDT [facility] AST 33 <=41 U/L 03/09/2025 11:26 AM EDT [facility] ALT 23 <=31 U/L 03/09/2025 11:26 AM EDT [facility] BILIRUBIN,TOTAL 1.3(H) 0.3 - 1.2 mg/dL 03/09/2025 11:26 AM EDT [facility] EGFR Non-Race Dependent 55(L) >=60 ml/min/1.7 3sq.m 03/09/2025 11:26 AM EDT [facility] Comment: Reported eGFR is based on the CKD-EPI 2020 equation that does not use a race coefficient. Blood Venous blood / Unknown 03/09/2025 10:41 AM EDT 03/09/2025 10:55 AM EDT us Venita Chan MD LAB BLOOD ORDERABLES Final Res ult [facility] [address] [place] [address], [place] [phone] * X-ray abdomen ap 1 view (03/09/2025 [...] Geremias Howe MD on 03/09/2025 9:38 AM Ghassan Castillo MD IMG DIAGNOSTIC IMAGING ORDERABL ES Final Result * Surgical Pathology (03/09/2025 9:15 AM EDT) Only the most recent of3 resultswithin the time period is included. 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 03/20/2025 11:25 AM EDT [facility] Gross Description Received in formalin labeled [...] mass. There are no lymph nodes identified. Carpenter Helper Maintenance sections are submitted in cassettes A-I , as: A resection margins B mass to closest mesenteric margin C mass with greatest depth of invasion D mass abutting serosa. E entire tumor deposit F-I entire mesentery (9, ss, [id number], m8.1) MW 03/20/2025 11:25 AM EDT [facility] Embedded Images 03/20/2025 11:25 AM EDT [facility] Tissue Structure of small intestine / Unknown 03/09/2025 9:15 AM EDT 03/10/2025 7:35 AM EDT Comment:Pre-op diagnosis: OPEN ABDOMEN us Ghassan Castillo MD PATHOLOGY/CYTOLOGY ORDERABLES F inal Result [facility] [address] [place] [address], [place] [phone] * Lactate w/ Reflex (03/08/2025 11:48 PM EDT) Only the most recent of5 resultswithin the time period is included. LACTATE W/REFLEX 1.9 0.4 - 2.0 mmol/L 03/09/2025 12:27 AM EDT [facility] Blood Venous blood / Unknown 03/08/2025 11:48 PM EDT 03/09/2025 12:02 AM EDT Narrative [facility] - 03/09/2025 12:27 AM EDT Result did not trigger repeat Lactate, re-order if needed. Aminta EUCEDA LAB BLOOD ORDERABLES Final Result [facility] [address] [place] [address], [place] [phone] * Lactate (03/08/2025 9:51 PM EDT) Only the most recent of2 resultswithin the time period is included. LACTATE 1.9 0.4 - 2.0 mmol/L 03/08/2025 10:32 PM EDT [facility] Blood Venous blood / Unknown 03/08/2025 9:51 PM EDT 03/08/2025 10:02 PM EDT Aminta EUCEDA LAB BLOOD ORDERABLES Final Result [facility] [address] [place] [address], [place] [phone] * Platelet count (03/08/2025 1:02 PM EDT) Only the most recent of3 resultswithin the time period is included. Platelet Count 187 150 - 450 X10E9/L 03/08/2025 3:53 PM EDT [facility] MPV 8.1 7 - 12 fL 03/08/2025 3:53 PM EDT [facility] Blood Venous blood / Unknown 03/08/2025 1:02 PM EDT 03/08/2025 1:14 PM EDT Ashok Hwang DO LAB BLOOD ORDERABLES Final Resul t [facility] [address] [place] [address], [place] [phone] * Echo limited W/ contrast (03/08/2025 11:02 [...] tube and post code. Very limited visualization. Дмитрий Lara MD CV ECHO ORDERABLES Final Result * FFP setup:Number of Units: 3 (03/08/2025 9:00 AM EDT) Blood component type [id number] BLOOD TEAM INTERVAL Unit number [id number] BL OOD TEAM INTERVAL Unit ABO A BLOOD [employer] - [employer] Unit RH NEG BLOOD [employer] - [employer] Status of unit TRANSFUSED BLOO D [employer] - [employer] Expiration Date [id number] BLOOD [employer] - [employer] BB Type Barcode 0600 BLOOD BANK - WELLSKY Blood component type [id number] BLOOD BANK Elian JERNIGAN Unit number [id number] BL OOD BANK - RERE Unit ABO A BLOOD BANK - RERE Unit RH NEG BLOOD NGOC JERNIGAN Status of unit TRANSFUSED NALLELYO D NGOC JERNIAGN Expiration Date BLOOD BANK Elian JERNIGAN BB Type Barcode 0600 BLOOD BANK Elian JERNIGAN Blood component type [id number] BLOOD NGOC JERNIGAN Unit number [id number] BL OOD BANK - RERE Unit ABO A BLOOD BANK - RERE Unit RH POS BLOOD BANK Elian JERNIGAN Status of unit TRANSFUSED NALLELYO D NGOC JERNIGAN Expiration Date [id number] BLOOD BANK - RERE BB Type Barcode 6200 BLOOD BANK Elian JERNIGAN Blood Venous blood / Unknown 03/08/2025 9:00 AM EDT Ernie Elizondo [employer] BLOOD BANK PRODUCT ORDERA BLES Edited Result - Final BLOOD NGOC JERNIGAN * CT angiogram chest (03/08/2025 8:18 AM EDT) Only the most recent of2 resultswithin the time period is included. Anatomical Region Laterality Modality Lung, Body, Chest, [...] 03/08/2025 8:22 AM us Abby Palmer MD IM CT ORDERABLES Final Res ult * (ABNORMAL) Troponin I, High Sensitivity 1 Hour (03/08/2025 3:48 AM EDT) Only the most recent of2 resultswithin the time period is included. TROPONIN I, HIGH SENSITIVITY 38(H) <16 ng/L 03/08/2025 4:40 AM EDT [facility] Blood Venous blood / Unknown 03/08/2025 3:48 AM EDT 03/08/2025 4:07 AM EDT Narrative [facility] - 03/08/2025 4:40 AM EDT Elevations of hs-Troponin may be due to causes other than myocardial ischemia. Recommend serial hs-Troponin testing be performed. For the initial evaluation and management of chest pain patients, refer to the algorithms linked below. Emergency Patient: [email or web address] Inpatient: [email or web address] Дмитрий Lara MD LAB BLOOD ORDERABLES Final Resul t [facility] [address] [place] [address], [place] [phone] * Transfuse fresh frozen plasma: (03/08/2025 3:08 AM EDT) Only the most recent of3 resultswithin the time period is included. Dyan Carson MD BLOOD TRANSFUSION ORDERABLES Fi nal Result * Transfuse RBC:2 Units (03/08/2025 2:17 AM EDT) Only the most recent of3 resultswithin the time period is included. Дмитрий Lara MD BLOOD TRANSFUSION ORDERABLES Fin al Result * (ABNORMAL) POCT ABG with NA, K, GLU, ICA and HCT (03/08/2025 12:43 AM EDT) POC Sodium 137 134 - 146 mmol/L 03/08/2025 12:55 AM EDT [facility] POC Potassium 3.4(L) 3.5 - 5.0 mmol/L 03/08/2025 12:55 AM EDT [facility] POC Glucose 245(H) 65 - 99 mg/dL 03/08/2025 12:55 AM EDT [facility] POC Hematocrit 17(L) 35 - 47 % 03/08/2025 12:55 AM EDT [facility] POC Ionized Calcium 5.2 4.5 - 5.3 mg/dL 03/08/2025 12:55 AM EDT [facility] Sample type ARTERIAL 03/08/2025 12:55 AM [facility] pH, Arterial 7.186(LL) 7.350 - 7.450 03/08/2025 12:55 AM [facility] pCO2, Arterial 44.5 35.0 - 45.0 mmHg 03/08/2025 12:55 AM [facility] PO2, Arterial 56(L) 80 - 100 mmHg 03/08/2025 12:55 AM [facility] Base, Deficit -10.0(L) 0.0 - 2.0 mmol/L 03/08/2025 12:55 AM [facility] HCO3, Arterial 16.8(L) 22.0 - 26.0 mmol/L 03/08/2025 12:55 AM [facility] %O2 Saturation, Arterial 81.0(L) >90.0 % 03/08/2025 12:55 AM [facility] Irwin's test N/A 03/08/2025 12:55 AM [facility] SPO2 86 % 03/08/2025 12:55 AM [facility] Sample site A Line 03/08/2025 12:55 AM [facility] Insp. O2 conc. 100 % 03/08/2025 12:55 AM [facility] Source Of Oxygen Vent 03/08/2025 12:55 AM [facility] arterial 03/08/2025 12:4 3 AM EDT 03/08/2025 12:55 AM EDT us Dario Burris MD POINT OF CARE TEST ORDERABLES Fi nal Result [facility] [address] [place] [address], * EKG (03/08/2025 12:39 AM EDT) Only the most recent of2 resultswithin the time period is included. 03/08/2025 12:3 9 AM EDT Narrative [facility] - 03/10/2025 6:48 AM EDT us Дмитрий Lara MD ECG ORDERABLES Final Result Performing Organization Address City/[facility]/ZIP Co de Phone Number ELERVSHANNON * (ABNORMAL) Troponin I, High Sensitivity 0 Hour (03/08/2025 12:32 AM EDT) Only the most recent of2 resultswithin the time period is included. TROPONIN I, HIGH SENSITIVITY 17(H) <16 ng/L 03/08/2025 1:28 AM EDT [facility] Blood Venous blood / Unknown 03/08/2025 12:32 AM EDT 03/08/2025 12:54 AM EDT us Дмитрий Lara MD LAB BLOOD ORDERABLES Final Resul t Performing Organization Address [facility] Co de Phone Number [facility] [address] [place] [address], [place] [phone] * (ABNORMAL) Fibrinogen (03/08/2025 12:32 AM EDT) FIBRINOGEN 186(L) 190 - 480 mg/dL 03/08/2025 1:10 AM EDT [facility] Blood Venous blood / Unknown 03/08/2025 12:32 AM EDT 03/08/2025 12:55 AM EDT us Дмитрий Lara MD LAB BLOOD ORDERABLES Final Resul t Performing Organization Address [facility] Co de Phone Number [facility] [address] [place] [address], [place] [phone] * B-type natriuretic peptide (03/08/2025 12:32 AM EDT) Only the most recent of3 resultswithin the time period is included. BNP 22 <=100 pg/mL 03/08/2025 1:52 AM EDT [facility] Blood Venous blood / Unknown 03/08/2025 12:32 AM EDT 03/08/2025 12:55 AM EDT us Дмитрий Lara MD LAB BLOOD ORDERABLES Final Resul t [facility] [address] [place] [address], [place] [phone] * Venous Access Line ([facility]/[place]) (03/08/2025 12:10 AM EDT) Ana Lilia Armijo APRN-CRNA - 03/08/2025 12:10 AM EDT BETO Blood 03/08/2025 12:11 AM Venous Access Line ([facility]) Performed by: BETO Blood Authorized by: Veronique Alcaraz MD Patient Location: OR Start Time: 03/08/2025 12:08 AM End Time: 03/08/2025 12:10 AM Service Provider: Veronique Alcaraz MD WOOD LATHE OPERATOR ( if not the service provider): BETO Blood Placed By: Veronique Alcaraz MD Patient Identified, IV Checked, Risks and Benefits Discussed, Surgical Consent, Monitors and Equipment Checked, Pre-op Evaluation and Timeout Performed Fire Risk Assessment Score: 0 Number of Central Line Lumens: Double Lumen Vascular Access: Introducer Number of Introducer Lumens: Double Is the patient 5 years old or younger: No Prep: Chlorhexadine and Isopropyl Alcohol and Maximum Sterile Barriers used during central venous catheter insertion Hand Hygiene Performed Prior to Insertion: Yes Site Prep Agent has Completely Dried Before Insertion: Yes Type of Patient Prep: General Anesthesia Power Injectable: No CVC Type: Non-Tunneled Location: Internal Jugular Orientation: Right Securement Method: Sutured and Transparent Dressing Specimen Obtained: No Placement Technique: Ultrasound Guidance Insertion Attempts: 1 Placement Verification: Blood Return and Ultrasound Patient Tolerance: Tolerated Well us Veronique Alcaraz MD WA ANESTHESIA Final Result * WA ANES ART LINE (03/07/2025 10:59 PM EDT) Narrative Gage Ramirez SRNA - 03/07/2025 10:59 PM EDT KIMBERLY Xavier 03/07/2025 10:59 PM Art Line Performed by: KIMBERLY Xavier Authorized by: Veronique Alcaraz MD Patient Location: OR Start Time: 03/07/2025 10:52 PM End Time: 03/07/2025 10:52 PM Service Provider: Veronique Alcaraz MD WOOD LATHE OPERATOR ( if not the service provider): BETO Blood Student (if Applicable): KIMBERLY Xavier Placed By: Veronique Alcaraz MD Complete checklist: Patient Identified, IV Checked, Risks and Benefits Discussed, Surgical Consent, Monitors and Equipment Checked, Pre-op Evaluation and Timeout Performed Fire Risk Assessment Score: 0 Site Prep: Chlorhexidine Hand Hygiene Performed Prior to Insertion: Yes Site Prep Agent has Completely Dried Before Insertion: Yes Patient Prep Prior to AL Insertion: Sedated Size: 20 G Total Catheter Length (inches): 1 34 Location: Radial Orientation: Left Securement Method: Taped and Transparent Dressing Specimen Obtained: No Placement Technique: Anatomical Landmarks Insertion Attempts: 1 Patient Tolerance: Tolerated Well Veronique Alcaraz MD WA ANESTHESIA Final Result * WA AN ELECTIVE ENDOTRACHEAL AIRWAY (03/07/2025 10:38 PM EDT) Denise JamesNathansvenKIMBERLY - 03/07/2025 10:38 PM EDT KIMBERLY Xavier 03/07/2025 10:58 PM Airway Patient location during procedure: OR Urgency: Elective Date/Time: 03/07/2025 10:38 PM Airway not difficult IV In Situ: Peripheral General Information and Staff Service Provider: Veronique Alcaraz MD WOOD LATHE OPERATOR: BETO Blood Student: KIMBERLY Xavier Placed by: KIMBERLY Xavier Patient Identified, IV Checked, Risks and Benefits Discussed, Surgical Consent, Monitors and Equipment Checked, Pre-op Evaluation and Timeout Performed Fire Risk Assessment Score: 0 Consent for Emergent Airway (if performed for an anesthetic, see related documentation for consents) Risks and benefits: risks, benefits and alternatives were discussed Indications and Patient Condition Sedation level: Deep Preoxygenated: yesPatient position: Supine and Sniffing Mask difficulty assessment: Not Attempted Indications for airway management: Anesthesia Complications: No Complicating Factors: No Final Airway Details Final airway type: ETT Endotracheal airway: Cuffed, ETT - Single Lumen and Inflated Techniques used for successful ETT Placement: Video Laryngoscopy and With Stylet Cormack-Lehane Classification: Grade I Endotracheal tube insertion site: Oral Dentition Check Pre: See Pre-Evaluaton documentation Post Intubation Trauma? No Visibility: Cords Clear Blade: Other (Sim) Blade size: #3 Placement verified by: chest auscultation, capnography and symmetrical chest wall movement ETT size: 7.0 mm Measured from: Lips Secured at (cm): 22 Number of other approaches attempted: 0 Number of attempts at approach: 1 Veronique Alcaraz MD ANESTHESIA ORDERABLES Edited R esult - Final * Crossmatch RBC: (03/07/2025 3:30 PM EDT) Only the most recent of7 resultswithin the time period is included. Blood component type [id number] BLOOD BANK - [employer]i Unit number [id number] BL OOD BANK - [employer]i Unit ABO A BLOOD BANK - [employer] Unit RH POS BLOOD BANK - Ziippi Status of unit /RELEASED BLOOD BANK - Zii[employer]i Expiration Date BLOOD BANK - [facility] BB Type Barcode 6200 BLOOD BANK - Ziippi 03/07/2025 3:30 PM EDT 03/07/2025 4:40 PM EDT Дмитрий Lara MD BLOOD BANK PRODUCT ORDERABLES Fi nal Result BLOOD BANK - Ziippi * (ABNORMAL) Urine Culture Urine, Indwelling Catheter (03/07/2025 11:22 AM EDT) Only the most recent of2 resultswithin the time period is included. CULTURE RESULTS 50,000-100,000 CFU/mL Vancomycin resistant Enterococcus species(A) 03/10/2025 11:27 AM EDT [facility] Comment: Ampicillin or Amoxicillin is the [...] Enterococcus species Daptomycin 2.5: Susceptible (dose dependent) Geremias Zapata MD MICROBIOLOGY - GENERAL ORD ERABLES Final Result Performing Organization Address City/[facility]/ZIP Co de Phone Number [facility] [address] [place] [address], [place] [phone] * ABO Rh Repeat (03/07/2025 6:00 AM EDT) ABO A 03/07/2025 4:38 PM EDT [facility] RH Positive 03/07/2025 4:38 PM EDT [facility] 03/07/2025 6:00 AM EDT 03/07/2025 4:34 PM EDT Ernie Elizondo [facility] BLOOD BANK TEST ORDERABLE S Final Result Performing Organization Address [facility] de Phone Number [facility] [address] [address], [place] * (ABNORMAL) Hemoglobin (03/06/2025 2:01 PM EDT) Only the most recent of2 resultswithin the time period is included. Hemoglobin 11.2(L) 11.7 - 15.5 g/dL 03/06/2025 2:36 PM EDT [facility] Blood Venous blood / Unknown Venipuncture / Unknown 03/06/2025 2:01 PM EDT 03/06/2025 2:08 PM EDT Eleni Harding [facility] LAB BLOOD ORDERABLES Fi nal Result Performing Organization Address City/[facility]/ZIP Co de Phone Number [facility] [address] [place] [address], [place] [phone] * (ABNORMAL) Protein creat ratio (03/06/2025 12:41 PM EDT) URINE PROTEIN, RANDOM (MG/L) 490(H) <120 mg/L 03/06/2025 2:14 PM EDT [facility] URINE CREATININE,RDM 196.97 mg/dL 03/06/2025 2:14 PM EDT [facility] U/PRO/MEDICAL BILLING CODER RATIO CALC 0.25(H) <=0.20 03/06/2025 2:14 PM EDT [facility] Urine Urine / Unknown 03/06/2025 1 2:41 PM EDT 03/06/2025 12:53 PM EDT Narrative [facility] - 03/06/2025 2:14 PM EDT Nephrotic Syndrome is associated with ratios >3.5 us Omar Musa MD URINE ORDERABLES Final Result [facility] [address] [place] [address], [place] [phone] * Urine Creatinine,random (03/06/2025 12:41 PM EDT) URINE CREATININE,RDM 196.97 mg/dL 03/06/2025 2:14 PM EDT [facility] Urine Urine / Unknown 03/06/2025 1 2:41 PM EDT 03/06/2025 12:53 PM EDT us Omar Musa MD URINE ORDERABLES Final Result [facility] [address] [place] [address], [place] [phone] * Urea random, urine (03/06/2025 12:41 PM EDT) URINE UREA NITROGEN,RANDO M 646 mg/dL 03/06/2025 2:14 PM EDT [facility] Urine Urine / Unknown 03/06/2025 1 2:41 PM EDT 03/06/2025 12:53 PM EDT us Omar Musa MD URINE ORDERABLES Final Result [facility] [address] [place] [address], * Microalbumin - Albumin: Creatinine Urine Ratio (03/06/2025 12:41 PM EDT) URINE CREATININE,RDM 196.97 mg/dL 03/06/2025 2:14 PM EDT [facility] MALB/CREAT RATIO 9.1 0.0 - 30.0 mg/g 03/06/2025 2:14 PM EDT [facility] MICROALBUMIN, URINE 1.8 0.0 - 1.9 mg/dL 03/06/2025 2:14 PM EDT [facility] Urine Urine / Unknown 03/06/2025 1 2:41 PM EDT 03/06/2025 12:53 PM EDT us Omar Musa MD URINE ORDERABLES Final Result Performing Organization Address City/[facility]/ZIP Co de Phone Number [facility] [address] [place] [address], * Sodium, urine, random (03/06/2025 12:41 PM EDT) URINE SODIUM,RANDOM <10 mmol/L 03/06/2025 2:14 PM EDT [facility] Urine Urine / Unknown 03/06/2025 1 2:41 PM EDT 03/06/2025 12:53 PM EDT us Omar Musa MD URINE ORDERABLES Final Result [facility] [address] [place] [address], [place] [phone] * (ABNORMAL) Urinalysis (03/06/2025 12:41 PM EDT) Only the most recent of2 resultswithin the time period is included. COLOR Yellow Yellow 03/06/2025 2:31 PM EDT [facility] TURBIDITY Hazy(A) Clear 03/06/2025 2:31 PM EDT [facility] SPECIFIC GRAVITY 1.023 1.003 - 1.035 03/06/2025 2:31 PM EDT [facility] NITRITE Negative Negative 03/06/2025 2:31 PM EDT [facility] PH,URINE 6.0 5.0 - 8.5 03/06/2025 2:31 PM EDT [facility] LEUKOCYTE ESTERASE Small(A) Negative 03/06/2025 2:31 PM EDT [facility] PROTEIN 50 mg/dL(A) Negative 03/06/2025 2:31 PM EDT [facility] KETONES (URINE) 20 mg/dL(A) Negative 03/06/20 25 2:31 PM EDT [facility] UROBILINOGEN <1.1 eu/dL <1.1 eu/dL 03/06/2025 2:31 PM EDT [facility] BILIRUBIN (URINE) Negative Negative 03/06/2025 2:31 PM EDT [facility] BLOOD/HGB Large(A) Negative 03/06/2025 2:31 PM EDT [facility] CELLULAR CASTS 3(H) <=0 03/06/2025 2:31 PM EDT [facility] GRANULAR CASTS 26(H) <=0 03/06/2025 2:31 PM EDT [facility] HYALINE CASTS 23(H) 0 - 2 03/06/2025 2:31 PM EDT [facility] MUCOUS Present(A) None 03/06/2025 2:31 PM EDT [facility] R.B.CELLS 197(H) 0 - 5 03/06/2025 2:31 PM EDT [facility] SQUAMOUS EPITHELIUM 17(H) 0 - 5 03/06/2025 2:31 PM EDT [facility] W.B.CELLS 25(H) 0 - 5 03/06/2025 2:31 PM EDT [facility] GLUCOSE (URINE) Negative Negative 2:31 PM EDT [facility] Urine Urine specimen collection, clean catch / Unknown 03/06/2025 12:41 PM EDT 03/06/2025 12:53 PM EDT us Omar Musa MD URINE ORDERABLES Final Result [facility] [address] [place] [address], [place] [phone] * CT abdomen and pelvis without contrast [...] 12:04 PM. This will be documented in [facility] results tracking once complete. Finalized by Amari [...] 12:04 PM. This will be documented in [employer] resultstracking once complete. Finalized by Amari Mcgregor on 03/06/2025 12:04 PM us Omar Musa MD IMG CT ORDERABLES Final Result * (ABNORMAL) Uric acid (03/06/2025 5:36 AM EDT) URIC ACID 8.0(H) 2.6 - 7.2 mg/dL 03/06/2025 10:23 AM EDT [facility] Blood Venous blood / Unknown Venipuncture / Unknown 03/06/2025 5:36 AM EDT 03/06/2025 6:02 AM EDT us Omar Musa MD LAB BLOOD ORDERABLES Final Resu lt Performing Organization Address City/[facility]/ZIP Co de Phone Number [facility] [address] [place] [address], [place] [phone] * (ABNORMAL) CK Total (03/06/2025 5:36 AM EDT) [facility] CPK 18(L) 24 - 170 U/L 03/06/2025 11:22 AM EDT [facility] Blood Venous blood / Unknown Venipuncture / Unknown 03/06/2025 5:36 AM EDT 03/06/2025 6:02 AM EDT us Omar Musa MD LAB BLOOD ORDERABLES Final Resu lt Performing Organization Address City/[facility]/ZIP Co de Phone Number [facility] [address] [place] [address], [place] [phone] * (ABNORMAL) Lead,Blood,Venipuncture (03/04/2025 1:54 PM EDT) LEAD, VENOUS 9.5(H) <3.5 mcg/dL 03/05/2025 11:22 AM EDT [facility] Comment: ADDITIONAL INFORMATION Testing performed by Inductively Coupled Plasma-Mass Spectrometry (ICP-MS). This test was developed and its performance characteristics determined by [facility] in a manner consistent with CLIA requirements. This test has not been cleared or approved by the U.S. Food and Drug Administration. Blood Venous blood / Unknown Venipuncture / Unknown 03/04/2025 1:54 PM EDT 03/04/2025 1:55 PM EDT us Dominga Calderon LEASE PICKER-POLYSTYRENE BEAD MOLDER LAB BLOOD ORDERABLES F inal Result [facility] [address] [place] [address], [place] * Ultrasound pelvic with transvaginal (02/28/2025 5:29 [...] direct ultrasound needle visualization, and an ultrasound sales representatives image was obtained and saved in PACS. [...] under direct ultrasoundneedle visualization, and an ultrasound sales representatives image was obtainedand saved in PACS. The [...] who signed a written consent. TIME OUT: [place] Protocol Time Out Verification performed. ANESTHESIA: 100 [...] advanced into the targeted structure and a sales representatives image was obtained and saved in PACS. [...] who signed a written consent. TIME OUT: [place] Protocol Time Out Verification performed. ANESTHESIA: 100 [...] was advanced into thetargeted structure and a sales representatives image was obtained and saved in PACS. [...] MD IMG IR ORDERABLES Final Result * Cytology non-gynecologic (02/28/2025 1:25 PM EDT) Case Report Medical Cytology Report Case: [id number] Authorizing Provider: Geremias Romero MD Collected: 02/28/2025 1325 Ordering Location: [facility] Received: 02/28/[address] [place] [address] Acute Pathologist: Frankie Lanier MD Specimen: Abdomen 03/05/2025 6:14 PM EDT [facility] Final Diagnosis Ascites fluid: Atypical cells noted, in a background of acute inflammation. 03/05/2025 6:14 PM EDT [facility] at 1814 EDT Gross Description Received was 1,100ml of red fluid unfixed, labeled as Bibler, abdomen . CytoLyt added in lab. Specimen placed in formalin at 16:00 and had a total fixation time of 9 hours. 03/05/2025 6:14 PM EDT [facility] Clinical Information Ascites in the setting of new pelvic mass 03/05/2025 6:14 PM EDT [facility] Embedded Images 03/05/2025 6:14 PM EDT [facility] Sterile Body Fluid (Abdomen) 02/28/2025 1:25 PM EDT 02/28/2025 3:03 PM EDT Geremias Romero MD PATHOLOGY/CYTOLOGY ORDERABL ES Final Result [facility] [address] [place] [address], [place] [phone] * Albumin, fluid (02/28/2025 1:25 PM EDT) Albumin FL 2.3 g/dL 02/28/2025 3:43 PM EDT [facility] Sterile Body Fluid (Abdomen) 02/28/2025 1:25 PM EDT 02/28/2025 2:31 PM EDT Narrative [facility] - 02/28/2025 3:43 PM EDT The reference interval and other method performance specifications are unavailable for this body fluid. Comparison of this result to serum or plasma is recommended. us Geremias Romero MD BODY FLUIDS AND STOOLS ORDE RABDORIS Final Result Performing Organization Address City/[facility]/ZIP Co de Phone Number [facility] [address] [place] [address], [place] [phone] * Body fluid culture includes gram stain (02/28/2025 1:25 PM EDT) CULTURE RESULTS NO GROWTH 5 DAYS 03/05/2025 8:34 AM EDT [facility] GRAM STAIN White Blood Cells Present 03/05/2025 8:34 AM EDT [facility] GRAM STAIN No organisms seen 03/05/2025 8:34 AM EDT [facility] GRAM STAIN On Concentrated Smear 03/05/2025 8:34 AM EDT [facility] Sterile Body Fluid (Abdomen) 02/28/2025 1:25 PM EDT 02/28/2025 2:31 PM EDT us Geremias Romero MD MICROBIOLOGY - GENERAL ORDE RABDORIS Final Result [facility] [address] [place] [address], [place] [phone] * Body Fluid Cell Count (02/28/2025 1:25 PM EDT) Fluid color [place] 03/04/2025 5:40 AM EDT [facility] Fluid clarity Hazy 03/04/2025 5:40 AM EDT [facility] Fluid RBC Count 22,231 /uL 03/04/2025 5:40 AM EDT [facility] Nucleated Cell Count 1,910 /uL 03/04/2025 5:40 AM EDT [facility] Sterile Body Fluid (Abdomen) 02/28/2025 1:25 PM EDT 02/28/2025 2:31 PM EDT us Geremias Romero MD BODY FLUIDS AND STOOLS BELKYS HIRSCH Edited Result - Final [facility] [address] [place] [address], * Reflexed Body Fluid Cell Count Differential (02/28/2025 1:25 PM EDT) Neutrophils, Fluid 60 % 02/28/2025 4:00 PM EDT [facility] Lymphocyte, Fluid 2 % 02/28/2025 4:00 PM EDT [facility] Mesothelial, Fluid 5 % 02/28/2025 4:00 PM EDT [facility] Trigg/Macro, Fluid 33 % 02/28/2025 4:00 PM EDT [facility] Total Cells Counted 100 % 02/28/2025 4:00 PM EDT [facility] Sterile Body Fluid (Abdomen) 02/28/2025 1:25 PM EDT 02/28/2025 2:31 PM EDT Narrative [facility] - 02/28/2025 4:00 PM EDT SEE CYTOLOGY REPORT. Reference values for this fluid type are undefined, as fluid accumulation is considered abnormal. Geremias Romero MD BODY FLUIDS AND STOOLS ORDMary HIRSCH Final Result [facility] [address] [place] [address], * Lavender Top (02/27/2025 6:14 PM EDT) Extra Tube Auto Resulted 02/27/2025 8:02 PM EDT [facility] Blood Venous blood / Unknown 02/27/2025 6:14 PM EDT 02/27/2025 6:41 PM EDT Deena Branch MD LAB BLOOD ORDERABLES Final Resul t Performing Organization Address [facility]/ZIP Co de Phone Number [facility] [address] [place] [address], * Inhibin B, S (02/27/2025 6:14 PM EDT) INHIBIN B,S <10 pg/mL 02/28/2025 1:28 PM EDT [facility] Comment: REFERENCE VALUE Premenopausal: <108 pg/mL (Follicular) <80 pg/mL (Luteal) Postmenopausal: <12 pg/mL ADDITIONAL INFORMATION The testing method is a manual immunoenzymatic assay manufactured by [employer]. Values obtained with different assay methods or kits may be different and cannot be used interchangeably. If this test is being ordered as a tumor marker, results cannot be interpreted as absolute evidence for the presence or absence of malignant disease. This test was developed and its performance characteristics determined by [facility] in a manner consistent with CLIA requirements. This test has not been cleared or approved by the U.S. Food and Drug Administration. Test Performed by: [facility] [address] [place] [address] Cabinetmaker Supervisor: Fernando Layne Ph.D.; CLIA# [id number] Blood Venous blood / Unknown Venipuncture / Unknown 02/27/2025 6:14 PM EDT 02/27/2025 6:40 PM EDT us Nicole Craig DO LAB BLOOD ORDERABLES Final R esult [facility] [address] [place] [address], [place] * Echo complete W/O contrast (02/26/2025 3:15 [...] Velocity Ratio 1.10 XCELERA Left Ventricle Mass 135.14173 [id number] 3 g XCELERA Interventricular Septum Diastolic Thickness [...] The left ventricular wall motion is normal. us Neelima Ta LEASE PICKER-POLYSTYRENE BEAD MOLDER CV ECHO ORDERABLES Brandy l Result * Thin Prep Pap Test (02/26/2025 1:55 PM EDT) Case Report Gynecologic Cytology Report Case: [id number] Authorizing Provider: Mariaelena Berumen MD Collected: 02/26/2025 1355 Ordering Location: [facility] Received: 02/27/2025 0400 - CIELO 5E Acute First Screen: LEVI Boyle(ASCP) Rescreen: LEVI Palomino(ASCP) Specimen: Thin Prep Pap, Cervix 5 3:01 PM EDT [facility] Specimen Adequacy Satisfactory for evaluation 5 3:01 PM EDT [facility] Interpretation NEGATIVE FOR INTRAEPITHELIA L LESION OR MALIGNANCY NEGATIVE FOR INTRAEPITHELIA L LESION OR MALIGNANCY, UNSATISFACTORY , EPITHELIAL CELL ABNORMALITY, GLANDULAR EPITHELIAL CELL ABNORMALITY. , SQUAMOUS EPITHELIAL CELL ABNORMALITY, NO DIAGNOSIS RENDERED. 5 3:01 PM EDT [facility] at 1501 EDT Additional Information The Pap test is a screening test with an inherent, but low, probability of error. The Pap test is primarily effective for the diagnosis and prevention of squamous cell carcinoma. Regular screening is critical for prevention. ThinPrep liquid-based slides, which meet the Senior Underwriter criteria for automated screening, have been screened by the [employer] Imaging System (as of 03/19/07) along with an additional manual rescreening by a cytotechnologi and, if indicated, by a pathologist. 3:01 PM EDT [facility] Clinical Information Routine screening, VB 3:01 PM EDT [facility] Embedded Images 3:01 PM EDT [facility] Thin Prep Cervix uteri structure / Unknown 02/26/2025 1:55 PM EDT 02/27/2025 4:00 AM EDT Mariaelena Berumen MD PATHOLOGY/CYTOLOGY ORDERABLES Final Result [facility] [address] [place] [address], * High risk HPV w/myriam (02/26/2025 1:55 PM EDT) HPV 16 Negative Negative 02/28/2025 6:38 AM EDT [facility] HPV 18 Negative Negative 02/28/2025 6:38 AM EDT [facility] OTHER HIGH RISK HPV Negative Negative 02/28/2025 6:38 AM EDT [facility] Comment:HPV types 31, 33, 35 , 39, 45, 52, 56, 58, 59, 66, and 68 DNA were undetectable. Thin Prep Cervix uteri structure / Unknown 02/26/2025 1:55 PM EDT 02/27/2025 4:03 AM EDT us Mariaelena Berumen MD LAB BLOOD ORDERABLES Final Res ult [facility] [address] [place] [address], * (ABNORMAL) HE4, S (02/26/2025 11:14 AM EDT) HE4, S 163(H) <=140 pmol/L 02/27/2025 3:22 PM EDT [facility] Comment: ADDITIONAL INFORMATION The testing method is an electrochemiluminescence assay manufactured by [employer] and performed on the Modular or David system. Values obtained with different assay methods or kits may be different and cannot be used interchangeably. Test results cannot be interpreted as absolute evidence for the presence or absence of malignant disease. Test Performed by: [facility] [address] [id number] Cabinetmaker Supervisor: Fernando Layne Ph.D.; CLIA# [id number] Blood Venous blood / Unknown Venipuncture / Unknown 02/26/2025 11:14 AM EDT 02/26/2025 11:24 AM EDT us Ernie Elizondo LEASE PICKER-POLYSTYRENE BEAD MOLDER LAB BLOOD ORDERABLES Brandy borges Result [facility] [address] [place] [address], [place] * Inhibin-A (Dimer) (02/26/2025 11:14 AM EDT) INHIBIN-A (DIMER) 11.1 pg/mL 025 2:10 AM EDT [facility] [employer] Comment: INTERPRETIVE INFORMATION: Inhibin-A (Dimer) Normal Cycling [...] pg/mL This assay is performed using the [employer] DXI assay. Values may be elevated during normal . Preeclampsia, Down syndrome, and some cancers may increase Inhibin-A values. Performed By: [facility] [address] [place], [place] [id number] Dish Carrier: Luis Madsen MD, PhD CLIA Number: [id number] Blood Venous blood / Unknown Venipuncture / Unknown 02/26/2025 11:14 AM EDT 02/26/2025 11:24 AM EDT us Nicole Craig DO LAB BLOOD ORDERABLES Final R esult [facility] [address] [place], [place] [id number], * (ABNORMAL) CEA (02/26/2025 11:14 AM EDT) CEA 24.6(H) <=3.0 ng/mL 02/26/2025 12:35 PM EDT [facility] Comment: 0.0-3.0 ng/mL FOR NON SMOKERS 0.0-5.0 ng/mL FOR SMOKERS The method used for this test is [place] DXI chemiluminescent immunoassay. Values obtained by different assay methods cannot be used interchangeably. Blood Venous blood / Unknown Venipuncture / Unknown 02/26/2025 11:14 AM EDT 02/26/2025 11:24 AM EDT Nicole Craig DO LAB BLOOD ORDERABLES Final R esult Performing Organization Address City/[facility]/ZIP Co de Phone Number [facility] [address] [place] [address], * (ABNORMAL) Iron and TIBC (02/26/2025 2:59 AM EDT) IRON 12(L) 50 - 170 ug/dL 02/26/2025 9:50 AM EDT [facility] TRANSFERRIN 229 168 - 336 mg/dL 02/26/2025 9:50 AM EDT [facility] IRON BINDING 321 250 - 425 ug/dL 02/26/2025 9:50 AM EDT [facility] IRON SATURATION 4(L) 15 - 50 % SATURATION 02/26/2025 9:50 AM EDT [facility] Blood Venous blood / Unknown Venipuncture / Unknown 02/26/2025 2:59 AM EDT 02/26/2025 3:06 AM EDT Ernie Elizondo APRN-POLYSTYRENE BEAD MOLDER LAB BLOOD ORDERABLES Brandy l Result Performing Organization Address City/[facility] Co de Phone Number [facility] [address] [place] [address], * Cancer antigen 19-9 (02/26/2025 2:59 AM EDT) CA 19 9 22.5 <=35.0 U/mL 02/26/2025 11:48 AM EDT [facility] Comment: The method used for this test is [place] DXI chemiluminescent immunoassay. Values obtained by different assay methods cannot be used interchangeably. Blood Venous blood / Unknown Venipuncture / Unknown 02/26/2025 2:59 AM EDT 02/26/2025 3:06 AM EDT Nicole Dow Kiara SHIELDS LAB BLOOD ORDERABLES Final R esult [facility] [address] [place] [address], [place] [phone] * (ABNORMAL) CA 125 (02/26/2025 2:59 AM EDT) CA 125 1,528(H) <=35 U/mL 02/26/2025 10:00 AM EDT [facility] Comment: The method used for this test is [employer] DXI chemiluminescent immunoassay. Values obtained by different assay methods cannot be used interchangeably. Blood Venous blood / Unknown Venipuncture / Unknown 02/26/2025 2:59 AM EDT 02/26/2025 3:06 AM EDT us Ernie Espinalallen LEASE PICKER-POLYSTYRENE BEAD MOLDER LAB BLOOD ORDERABLES Brandy l Result Performing Organization Address City/[facility] Co de Phone Number [facility] [address] [place] [address], [place] [phone] * (ABNORMAL) Folate (02/26/2025 2:59 AM EDT) FOLIC ACID 3.3(L) >5.8 ng/mL 02/26/2025 10:12 AM EDT [facility] Blood Venous blood / Unknown Venipuncture / Unknown 02/26/2025 2:59 AM EDT 02/26/2025 3:06 AM EDT Ernie Espinalallen LEASE PICKER-POLYSTYRENE BEAD MOLDER LAB BLOOD ORDERABLES Brandy l Result [facility] [address] [place] [address], [place] [phone] * Ferritin (02/26/2025 2:59 AM EDT) FERRITIN 78 11 - 307 ng/mL 02/26/2025 10:08 AM EDT [facility] Blood Venous blood / Unknown Venipuncture / Unknown 02/26/2025 2:59 AM EDT 02/26/2025 3:06 AM EDT Ernie Elizondo [facility] LAB BLOOD ORDERABLES Brandy l Result [facility] [address] [place] [address], * (ABNORMAL) Vitamin B12 (02/26/2025 2:59 AM EDT) Pathologist [facility] VITAMIN B12 110(L) 180 - 914 pg/mL 02/26/2025 10:13 AM EDT [facility] Blood Venous blood / Unknown Venipuncture / Unknown 02/26/2025 2:59 AM EDT 02/26/2025 3:06 AM EDT Ernie Elizondo [facility] LAB BLOOD ORDERABLES Brandy l Result [facility] [address] [place] [address], * (ABNORMAL) D-Dimer (02/24/2025 5:28 PM EDT) D DIMER 7,187(H) 1 - 255 ug/mL 02/24/2025 5:58 PM EDT [facility] Comment:Results >255 ng/mL D DU: Results may be indicative of the presence of VTE. The use of the Wells score and further diagnostic tests should be considered. Elevated D-Dimer levels can be associated with DIC, neoplasm, , trauma and liver disease. Elevated levels of rheumatoid factor may lead to an overestimation of the D-Dimer level. Blood Venous blood / Unknown Venipuncture / Unknown 02/24/2025 5:28 PM EDT 02/24/2025 5:38 PM EDT us Wu Mohan MD LAB BLOOD ORDERABLES Final Resu lt [facility] [address] [place] [address], [place] * Vas venous duplex lwr bilateral (02/24/2025 4:59 PM EDT) Anatomical Region Laterality Modality Vascular Bilateral Ultrasound 02/24/2025 5:03 PM EDT Narrative 02/24/2025 5:05 PM EDT Right: Dilated noncompressible distal femoral, popliteal, posterior tibial, peroneal and deep calf muscle veins with hypoechoic intraluminal content and absent spectral Doppler signals. Remaining visualized deep venous segments are compressible with spontaneous phasic spectral Doppler waveforms. Superficial veins are compressible. Left: Limited contralateral duplex evaluation completed. Dilated Non- compressible deep calf muscle veins with hypoechoic intraluminal [...] segments.ACUTE deep calf muscle vein thrombosis (DVT). Procedure Note Frankie Cox MD - 02/24/2025 Right: Dilated noncompressible distal femoral, popliteal, posteriortibial, peroneal and deep calf muscle veins with hypoechoic intraluminalcontent and absent spectral Doppler signals. Remaining visualized deepvenous segments are compressible with spontaneous phasic spectral Doppler waveforms. Superficial veins arecompressible. Left: Limited contralateral duplex evaluation completed. DilatedNon-compressible deep calf muscle veins with hypoechoic intraluminalcontent and absent spectral Doppler signals. Common femoral, femoral, andpopliteal veins are compressible without intraluminal content. Spontaneous, common femoral, femoral and poplitealspectral Doppler signals. Evaluation of superficial veins was notperformed. Conclusions: RIGHT:ACUTE femoropopliteal deep vein thrombosis (DVT).ACUTEdeep tibioperoneal vein thrombosis (DVT). ACUTE deep calf muscle veinthrombosis (DVT). NO EVIDENCE of superficial vein thrombosis of the lowerextremity. LEFT:Limited visualization of lower extremity venous segments.ACUTE deep calf musclevein thrombosis (DVT). us Riya Diego MD CV VASCULAR ORDERABLES Final Result * CT abdomen and pelvis with contrast (02/24/2025 3:54 PM EDT) Anatomical Region Laterality Modality Body, Abdomen, Body Covera N/A Compu oscar Tomography 02/24/2025 4:10 PM EDT Narrative 02/24/2025 4:15 PM EDT CLINICAL INFORMATION: Localized swelling, mass and lump, [...] Chau Nicole MD on 02/24/2025 4:15 PM Procedure Note Chau Nicole MD - 02/24/2025 CLINICAL INFORMATION: Localized swelling, mass and lump, lower limb, right; Generalizedabdominal pain; Abdominal distension; SOB (shortness of breath);Tachycardia TECHNIQUE: CT ABDOMEN AND PELVIS W CONT CT images of the abdomen and pelvis are obtained. Intravenous contrast wasadministered. Images are reformatted in the sagittal and coronal planes.There are no prior exams available for comparison. There is diffuse freeintraperitoneal fluid. Large partially solid and partially cystic lesionnoted within the right adnexa measuring 16 cm x 12 cm x 11 cm. Ovarian carcinomais the diagnosis of exclusion. Regions of soft tissue nodularity notedanterior lower abdomen. There are small bilateral lower lobe pulmonarynodules. Right basilar atelectasis also appreciated. Pancreasunremarkable. Adrenal symmetric. Large dependently layering gallstone. Small bowel isnondistended without evidence of obstruction. Mild thoracolumbardegenerative changes. No acute osseous abnormalities. Prominent nodesappreciated at the diya hepatis. IMPRESSION: Large partially solid partially cystic lesion within the right adnexa.Ovarian carcinoma is diagnosis of exclusion. 2.5 cm solid right renal lesion. Renal cell carcinoma is diagnosis ofexclusion. Diffuse free intraperitoneal fluid. Small bilateral noncalcified lower lobe pulmonary nodules and loweranterior abdominal soft tissue nodules, likely metastasis. Prominent nodes in diya hepatis. THIS REPORT CONTAINS A SIGNIFICANT RESULT AND/OR RECOMMENDATION, WHICHREQUIRES THE ATTENTION OF THE LICENSED CAREGIVER RESPONSIBLE FOR THISPATIENT. THEREFORE, I SPECIFICALLY DESIGNATED THIS REPORT TO BE TELEPHONED BY THERADIOLOGY DEPARTMENT. FINDINGS WERE INSTRUCTED TO BE CALLED TO THE CLINICAL SERVICE ON 02/24/2025T 4:[address] scans at this facility use dose modulation, iterativereconstruction, and/or weight based dosing when appropriate to reduceradiation dose to as low as reasonably achievable. Finalized by Chau Nicole MD on 02/24/2025 4:15 PM Riya Diego MD IMG CT ORDERABLES Final Resu lt * X-ray chest 2 views (02/18/2025 10:53 AM EDT) Anatomical Region Laterality Modality Body, Chest N/A Computed Radiogr aphy 02/19/2025 9:45 AM EDT Narrative 02/19/2025 10:56 AM EDT XR CHEST 2 VWS HISTORY: Bronchitis COMPARISON: None FINDINGS: The trachea is midline. The cardiomediastinal silhouette is not enlarged. No pneumothorax or pleural effusion. Bibasilar linear airspace opacities. No focal consolidation. Multilevel degenerative changes of the thoracic spine. IMPRESSION: * Bibasilar linear airspace opacities most compatible with atelectasis. Approved by Resident Liu Apodaca MD on 02/19/2025 9:45 AM Dheeraj Camopverde MD have personally reviewed the image(s) and agree with and/or edited the report Finalized by Dheeraj Wang MD on 02/19/2025 10:56 AM Procedure Note Dheeraj Wang MD - 02/19/2025 XR CHEST 2 VWS HISTORY: Bronchitis COMPARISON: None FINDINGS: The trachea is midline. The cardiomediastinal silhouette is not enlarged. No pneumothorax or pleural effusion. Bibasilar linear airspace opacities.No focal consolidation. Multilevel degenerative changes of the thoracic spine. IMPRESSION: * Bibasilar linear airspace opacities most compatible with atelectasis. Approved by Resident Liu Apodaca MD on 02/19/2025 9:45 AM Dheeraj Campoverde MD have personally reviewed the image(s) and agree withand/or edited the report Finalized by Dheeraj Wang MD on 02/19/2025 10:56 AM Riya Diego MD IMSven DIAGNOSTIC IMAGING ORDER EMILEE Final Result from Last 3 Months Insurance [facility] Advance Directives Documents on File Type Date Recorded Patient Carpenter Helper Maintenance Expl anation DNR Physician Order 03/26/2025 12:30 PM * DNR Comfort Care Arrest (DNR-CCA) [place] (Latest Code Status on File) Date Activated Date Inactivated Comments 03/14/2025 3:36 PM 03/21/2025 6:23 PM NO CHEST COM PRESSIONS OR CPR * Full Code Date Activated Date Inactivated Comments 02/25/2025 5:49 PM 03/14/2025 3:36 PM * Full Code Date Activated Date Inactivated Comments 02/25/2025 2:33 AM 02/25/2025 5:24 PM Care Teams Yarn Spooler Relationship Specialty Start Date End Date Riya Diego MD [address] [place] [phone] PCP - General Family Medicine 03/31/17
[2025-03-30 22:58] LABS: Hematocrit 32.2 % (36.0-48.0); Hemoglobin 9.9 g/dL (12.0-16.0); Mean Corpuscular HGB Conc 30.7 g/dL (29.9-35.2); Mean Corpuscular Hemoglobin 27.5 pg (26.7-34.0); Mean Corpuscular Volume 89.4 fL (81.0-99.0); Platelet Count 535 10^3/uL (150-450); Red Blood Count 3.60 10^6/uL (4.20-5.40); White Blood Count 12.2 10^3/uL (4.0-11.0)
[2025-03-30 23:06] LABS: Anion Gap 18.1; Blood Urea Nitrogen 11.0 mg/dL (7.0-18.0); Calcium 8.6 mg/dL (8.5-10.1); Carbon Dioxide 22.5 mmol/L (21.0-32.0); Chloride 101 mmol/L (98-107); Estimated GFR (African America >60 (>=60 mL/min/1.73m^2); Estimated GFR (Non-African Ame >60 (>=60 mL/min/1.73m^2); Glucose 79 mg/dL (74-106); Potassium 4.6 mmol/L (3.5-5.1); Sodium 137 mmol/L (136-145)
== END 2025-03-30 17:44 | disposition home or self-care (01) ==
LOC: LAB 17:43
PROVIDERS: PCP Internal Medicine; Visit Provider Internal Medicine
DX: K92.1 Melena (principal)
CPT/HCPCS: 36415; 80048; 85027